=== PATIENT | male | born 1965 | race Caucasian/White ===

== ENCOUNTER 2016-06-10 10:37 | Emergency (ER) | payer MEDICAID ==
[2016-06-10] MEDS ORDERED: DEXAMETHASONE 10 MG/ML VIAL PO STA (12:11)
[2016-06-10] MEDS ORDERED: AMOXICILLIN 250 MG CAPSULE PO STA (12:12)
[2016-06-10] MEDS ORDERED: HYDROcod/ACETAM 5/325 MG TABLET PO STA (12:12)
[2016-06-10] MEDS ORDERED: DEXAMETHASONE 10 MG/ML VIAL ONE (12:15)
[2016-06-10] MEDS ORDERED: HYDROcod/ACETAM 5/325 MG TABLET ONE (12:15)
[2016-06-10] MEDS ORDERED: AMOXICILLIN 250 MG CAPSULE PO ONE (12:15)
[2016-06-10] MEDS ORDERED: CHERRY SYRUP 10 ML UDC PO ONE (12:15)
== END 2016-06-10 13:17 | disposition home or self-care (01) ==
DX: H66.011 Acute suppurative otitis media with spontaneous rupture of ear drum, right ear (principal); S00.411A Abrasion of right ear, initial encounter; X58.XXXA Exposure to other specified factors, initial encounter; I10 Essential (primary) hypertension; E10.9 Type 1 diabetes mellitus without complications; Z79.4 Long term (current) use of insulin; F03.90 Unspecified dementia, unspecified severity, without behavioral disturbance, psychotic disturbance, mood disturbance, and anxiety; Z86.73 Personal history of transient ischemic attack (TIA), and cerebral infarction without residual deficits; Z79.82 Long term (current) use of aspirin; Z87.891 Personal history of nicotine dependence
CPT/HCPCS: 99283; 99284; A9270

== ENCOUNTER 2016-09-05 19:43 | Outpatient (CLI) | payer MEDICAID | END 2016-09-05 19:44 | disposition critical access hospital (66) | LOC: EMS 19:43 | PROVIDERS: ATTEND Surgery | DX: T38.3X1A Poisoning by insulin and oral hypoglycemic [antidiabetic] drugs, accidental (unintentional), initial encounter (principal); R10.9 Unspecified abdominal pain; Y92.039 Unspecified place in apartment as the place of occurrence of the external cause | CPT/HCPCS: A0425; A0429 ==

== ENCOUNTER 2016-09-05 20:03 | Emergency (ER) | payer MEDICAID ==
--- NOTE | 2016-09-05 20:21 | ED Physician Documentation ---
History of Present Illness - Stated complaint Stated Complaint: DIABETIC PROBLEM - Chief complaint Chief Complaint: General - History obtained from History obtained from: Patient, EMS - History of Present Illness Timing: How many hours ago (2) Pain level max: 0 Pain level now: 0 - Additonal information Additional information: Patient is a 50-year-old diabetic male who presents to the emergency department stating that he accidentally took 40 units of Humalog tonight, approximately 2 hours prior to arrival. He had sour patch kids and regular Coca-Cola after that. Review of Systems Ten Systems: 10 systems reviewed and negative Constitutional: denies: Fever, Chills Nose: denies: Rhinorrhea / runny nose, Congestion Throat: denies: Sore throat Cardiac: denies: Chest pain / pressure Respiratory: denies: Cough GI: denies: Abdominal Pain, Nausea, Vomiting, Diarrhea Skin: denies: Rash Musculoskeletal: denies: Neck pain, Back pain Neurologic: denies: Focal weakness, Numbness, Headache PD PAST MEDICAL HISTORY - Past Medical History Cardiovascular: Hypertension, High cholesterol, Other Respiratory: Pneumonia Neuro: Dementia, CVA Endocrine/Autoimmune: Type 1 diabetes GI: GERD, Ulcers, Colon polyps : None HEENT: None Psych: None Musculoskeletal: Chronic back pain Derm: None - Past Surgical History Past Surgical History: Yes General: Colonoscopy Ortho: Carpal Tunnel surgery HEENT: Other - Present Medications Home Medications: Ambulatory Orders Medication Instructions Recorded Confirmed Levothyroxine [Synthroid] 125 mcg PO DAILY 09/02/13 01/29/16 Pantoprazole [Protonix] 40 mg PO QPM 03/20/14 01/29/16 Atorvastatin Calcium [Lipitor] 40 mg PO QPM 05/03/14 01/29/16 Cholecalciferol (Vitamin D3) 5,000 mg PO DAILY 05/03/14 01/29/16 [Vitamin D3] Mirtazapine [Remeron] 45 mg PO QPM 05/03/14 01/29/16 Hydroxyzine Pamoate 50 mg PO TID 07/21/14 01/29/16 Trazodone HCl 200 tab PO QPM 07/21/14 01/29/16 Ferrous Sulfate [Iron Supplement] 325 mg PO DAILY 12/13/14 01/29/16 Atomoxetine HCl [Strattera] 30 mg PO DAILY 05/16/15 01/29/16 Donepezil [Aricept] 5 mg PO DAILY 08/08/15 01/29/16 Ascorbic Acid [Vitamin C] 500 mg PO DAILY 11/09/15 01/29/16 Aspirin [Adult Low Dose Aspirin EC] 81 mg PO DAILY 11/09/15 01/29/16 Gabapentin 300 mg PO TID 11/09/15 01/29/16 [place]-3 Fatty Acids [Fish Oil] 1,400 mg PO DAILY 11/09/15 01/29/16 Sertraline HCl 25 mg PO DAILY 11/09/15 01/29/16 Ubidecarenone [Co Q-10] 200 mg PO DAILY 11/09/15 01/29/16 Insulin Glargine [Lantus Solostar] 20 unit SUBQ QPM pen 11/10/15 01/29/16 Insulin Lispro [Humalog] 20 units SQ TID 01/29/16 01/29/16 Amoxicillin 500 mg PO TID #20 capsule 06/10/16 Hydrocodone/Acetaminophen [[place] 1 each PO Q6H PRN #15 tablet 06/10/16 5-325 Tablet] Neomycin/Polymyx/Hc Otic Drops 3 drops OT QID #1 bottle 06/10/16 [Cortisporin Ear Susp] - Allergies Allergies/Adverse Reactions: Allergies Allergy/AdvReac Type Severity Reaction Status Date / Time omeprazole Allergy Intermediate Nausea Verified 01/29/16 20:33 codeine AdvReac Severe Dizziness Verified 01/29/16 20:33 doxycycline AdvReac Intermediate Dizziness Verified 01/29/16 20:33 insulin aspart [From Novolog] AdvReac Edema Verified 01/29/16 20:33 - Social History Does the pt smoke?: No Smoking Status: Former smoker Does the pt drink ETOH?: No Does the pt have substance abuse?: No - Immunizations Immunizations are current?: Yes - POLST Patient has POLST: No PD ED PE NORMAL - Vitals Vital signs reviewed: Yes - General General: Alert and oriented X 3, No acute distress - HEENT HEENT: Moist mucous membranes - Neck Neck: Supple, no meningeal sign - Cardiac Cardiac: RRR - Respiratory Respiratory: No respiratory distress, Clear bilaterally - Abdomen Abdomen: Soft, Non tender - Derm Derm: Warm and dry, No rash - Neuro Neuro: Alert and oriented X 3 - Psych Psych: Normal mood, Normal affect Results - Vitals Vitals: Vital Signs - 24 hr 09/05/16 09/05/16 20:03 20:12 Temperature 36.6 C Heart Rate 87 Respiratory 18 Rate Blood Pressure 127/76 128/76 O2 Saturation 97 Oxygen O2 Source [Without Activity] Room air O2 Source Patient supplied BIPAP - Labs Labs: Laboratory Tests 09/05/16 09/05/16 20:38 20:38 WBC 6.6 RBC 5.00 Hgb 15.1 Hct 44.3 MCV 88.7 MCH 30.2 MCHC 34.1 RDW 12.7 Plt Count 216 MPV 10.1 Neut # 4.3 Lymph # 1.7 [place] # 0.5 Eos # 0.1 Baso # 0.1 Absolute Nucleated RBC 0.01 Nucleated RBCs 0.1 Sodium 137 Potassium 3.5 Chloride 99 L Carbon Dioxide 24 Anion Gap 14.0 H BUN 20 Creatinine 1.2 Estimated GFR (MDRD) 64 L Glucose 238 H Calcium 9.6 Total Bilirubin 0.6 AST 27 ALT 23 Alkaline Phosphatase 81 Total Protein 6.9 Albumin 4.3 Globulin 2.6 Albumin/Globulin Ratio 1.7 Lipase 32 PD MEDICAL DECISION MAKING - ED course Complexity details: reviewed results, re-evaluated patient, considered differential, d/w patient ED course: Patient is a 50-year-old male who presents to the emergency department after an accidental overdose of short acting insulin at home. He was monitored in the emergency department for several hours without hypoglycemia. Tolerating p.o. without difficulty. No other acute laboratory abnormalities. He is not suicidal or homicidal. Will have him follow-up with his doctor for further evaluation and care. We will have him hold his Lantus dose tonight. Patient counseled regarding signs and symptoms for which I believe and urgent re- evaluation would be necessary. Patient with good understanding of and agreement to plan and is comfortable going home at this time This document was made in part using voice recognition software. While efforts are made to proofread this document, sound alike and grammatical errors may occur. Departure - Departure Disposition: 01 Home, Self Care Clinical Impression: Insulin overdose Qualifiers: Encounter type: initial encounter Injury intent: accidental or unintentional Qualified Code(s): T38.3X1A - Poisoning by insulin and oral hypoglycemic [ antidiabetic] drugs, accidental (unintentional), initial encounter Condition: Good Instructions: ED Diabetes General Info Follow-Up: Fransisco Timmons MD [Primary Care Provider] - Within 3 Days Comments: Please be very careful when checking your insulin at home and ensure you are injecting the correct medication. Return if you worsen
[2016-09-05 20:51] LABS: HGB - HEMOGLOBIN 15.1 g/dL (14.0-18.0); NUCLEATED RED BLOOD CELLS AUTO 0.1 /100WBC
[2016-09-05 20:55] LABS: BASOPHILS # (AUTO) 0.1 10^3/uL (0.0-0.1); BASOPHILS % (AUTO) 1.1 %; EOSINOPHILS # (AUTO) 0.1 10^3/uL (0.0-0.7); EOSINOPHILS % (AUTO) 0.9 %; HCT - HEMATOCRIT 44.3 % (42.0-52.0); LYMPHOCYTES # (AUTO) 1.7 10^3/uL (1.5-3.5); MEAN CORPUSCULAR HEMOGLOBIN 30.2 pg (27.0-31.0); MEAN CORPUSCULAR HGB CONC 34.1 g/dL (32.0-36.0); MEAN CORPUSCULAR VOLUME 88.7 fL (80.0-94.0); MEAN PLATELET VOLUME 10.1 fL (7.4-11.4); MONOCYTES # (AUTO) 0.5 10^3/uL (0.0-1.0); MONOCYTES % (AUTO) 7.2 %; NEUTROPHILS # (AUTO) 4.3 10^3/uL (1.5-6.6); NEUTROPHILS % (AUTO) 65.8 %; RED CELL DISTRIBUTION WIDTH 12.7 % (12.0-15.0); UNCORRECTED WHITE BLOOD COUNT 6.6 x10^3/uL; WHITE BLOOD COUNT 6.6 x10^3/uL (4.8-10.8)
[2016-09-05 20:58] LABS: ALBUMIN/GLOBULIN RATIO 1.7 (1.0-2.2); BILIRUBIN,TOTAL 0.6 mg/dL (0.2-1.0); CALCIUM 9.6 mg/dL (8.5-10.3); CREATININE 1.2 mg/dL (0.6-1.2); POTASSIUM 3.5 mmol/L (3.5-5.0); TOTAL PROTEIN 6.9 g/dL (6.7-8.2)
[2016-09-05 22:23] VITALS: BP 142/82
== END 2016-09-05 22:31 | disposition home or self-care (01) ==
LOC: EDUNIT# → ED 20:03
DX: T38.3X1A Poisoning by insulin and oral hypoglycemic [antidiabetic] drugs, accidental (unintentional), initial encounter (principal); Y92.019 Unspecified place in single-family (private) house as the place of occurrence of the external cause; E10.9 Type 1 diabetes mellitus without complications; Z79.4 Long term (current) use of insulin; I10 Essential (primary) hypertension; E78.00 Pure hypercholesterolemia, unspecified; F03.90 Unspecified dementia, unspecified severity, without behavioral disturbance, psychotic disturbance, mood disturbance, and anxiety; Z86.73 Personal history of transient ischemic attack (TIA), and cerebral infarction without residual deficits; Z86.010 Personal history of colon polyps; Z87.11 Personal history of peptic ulcer disease; K21.9 Gastro-esophageal reflux disease without esophagitis; Z87.891 Personal history of nicotine dependence
CPT/HCPCS: 36415; 80053; 83690; 85025; 99283; 99284

== ENCOUNTER 2017-03-05 13:13 | Outpatient (CLI) | payer MEDICARE ==
--- NOTE | 2017-03-05 15:54 | XRAY Report ---
EXAM; THREE VIEW LUMBAR SPINE: 03/05/2017 CLINICAL INDICATION: Back pain. FINDINGS: AP, lateral, coned down views of the lumbar spine were obtained. There are chronic appearing anterior wedge compression fractures of L1, with approximately 80% height loss, L2, with approximately 10% height loss, and L5, with approximately 30% height loss. Degenerative disk and facet disease is present. The bowel gas pattern appears unremarkable. IMPRESSION: CHRONIC APPEARING ANTERIOR WEDGE COMPRESSION DEFORMITIES OF L1, L2, AND L5. DEGENERATIVE DISK AND FACET DISEASE. MD NATHAN De La Torre/ADRIENNE TD: 03/05/2017 15:53 MTDD
== END 2017-03-05 13:14 | disposition home or self-care (01) ==
LOC: DI 13:13
PROVIDERS: ATTEND Family Medicine
DX: M48.56XD Collapsed vertebra, not elsewhere classified, lumbar region, subsequent encounter for fracture with routine healing (principal); M51.36 Other intervertebral disc degeneration, lumbar region; M47.896 Other spondylosis, lumbar region
CPT/HCPCS: 72100

== ENCOUNTER 2017-03-10 18:47 | Emergency (ER) | payer MEDICARE ==
--- NOTE | 2017-03-10 19:02 | ED Physician Documentation ---
History of Present Illness - Stated complaint Stated Complaint: CHEST PX - Chief complaint Chief Complaint: Cardiac - History obtained from History obtained from: Patient, Family - History of Present Illness Timing: Today Pain level max: 0 Pain level now: 0 Improved by: rest Worsened by: walking - Additonal information Additional information: Patient is a 51-year-old male who presents to the emergency department stating that he has been able to feel his heart beating all day today. Has not been having any chest pain. He was seen at [facility] 3 days ago and treated with ciprofloxacin for epididymitis and prostatitis. He states he was also started on Flomax for an enlarged prostate. He has felt sweaty and weak today. No fevers that he knows of at home. Review of Systems Ten Systems: 10 systems reviewed and negative Constitutional: denies: Fever, Chills Nose: denies: Rhinorrhea / runny nose, Congestion GI: denies: Constipation, Diarrhea, Hematemesis, Bloody / black stool : denies: Dysuria, Frequency, Hesitancy Skin: denies: Rash Musculoskeletal: denies: Neck pain, Back pain Neurologic: denies: Headache PD PAST MEDICAL HISTORY - Past Medical History Cardiovascular: Hypertension, High cholesterol, Other Respiratory: Pneumonia Neuro: Dementia, CVA Endocrine/Autoimmune: Type 1 diabetes GI: GERD, Ulcers, Colon polyps : None HEENT: None Psych: None Musculoskeletal: Chronic back pain Derm: None - Past Surgical History Past Surgical History: Yes General: Colonoscopy Ortho: Carpal Tunnel surgery HEENT: Other - Present Medications Home Medications: Ambulatory Orders Medication Instructions Recorded Confirmed Levothyroxine [Synthroid] 125 mcg PO DAILY 09/02/13 01/29/16 Pantoprazole [Protonix] 40 mg PO QPM 03/20/14 01/29/16 Atorvastatin Calcium [Lipitor] 40 mg PO QPM 05/03/14 01/29/16 Cholecalciferol (Vitamin D3) 5,000 mg PO DAILY 05/03/14 01/29/16 [Vitamin D3] Mirtazapine [Remeron] 45 mg PO QPM 05/03/14 01/29/16 Hydroxyzine Pamoate 50 mg PO TID 07/21/14 01/29/16 Trazodone HCl 200 tab PO QPM 07/21/14 01/29/16 Atomoxetine HCl [Strattera] 30 mg PO DAILY 05/16/15 01/29/16 Donepezil [Aricept] 5 mg PO DAILY 08/08/15 01/29/16 Ascorbic Acid [Vitamin C] 500 mg PO DAILY 11/09/15 01/29/16 [place]-3 Fatty Acids [Fish Oil] 1,400 mg PO DAILY 11/09/15 01/29/16 Sertraline HCl 25 mg PO DAILY 11/09/15 01/29/16 Ubidecarenone [Co Q-10] 200 mg PO DAILY 11/09/15 01/29/16 Insulin Glargine [Lantus Solostar] 20 unit SUBQ QPM pen 11/10/15 01/29/16 Insulin Lispro [Humalog] 20 units SQ TID 01/29/16 01/29/16 Amoxicillin 500 mg PO TID #20 capsule 06/10/16 - Allergies Allergies/Adverse Reactions: Allergies Allergy/AdvReac Type Severity Reaction Status Date / Time omeprazole Allergy Intermediate Nausea Verified 03/10/17 18:54 codeine AdvReac Severe Dizziness Verified 03/10/17 18:54 doxycycline AdvReac Intermediate Dizziness Verified 03/10/17 18:54 insulin aspart [From Novolog] AdvReac Edema Verified 03/10/17 18:54 - Social History Does the pt smoke?: No Smoking Status: Former smoker Does the pt drink ETOH?: No Does the pt have substance abuse?: No - Immunizations Immunizations are current?: Yes - POLST Patient has POLST: No PD ED PE NORMAL - Vitals Vital signs reviewed: Yes - General General: Alert and oriented X 3, No acute distress - HEENT HEENT: Moist mucous membranes - Neck Neck: Supple, no meningeal sign - Cardiac Cardiac: RRR, Strong equal pulses - Respiratory Respiratory: No respiratory distress, Clear bilaterally - Abdomen Abdomen: Soft, Non distended, Other (TTP RLQ at McBurney's point. no rebound or guarding) - Derm Derm: Warm and dry - Neuro Neuro: Alert and oriented X 3 - Psych Psych: Other (anxious) Results - Vitals Vitals: Vital Signs - 24 hr 03/10/17 03/10/17 03/10/17 18:50 19:34 20:45 Temperature 36.7 C Heart Rate 106 H 82 86 Respiratory 16 17 13 Rate Blood Pressure 136/89 H 109/62 132/78 H O2 Saturation 99 100 99 03/10/17 21:34 Temperature Heart Rate 83 Respiratory 16 Rate Blood Pressure 119/79 O2 Saturation 99 Oxygen O2 Source [] Room air O2 Source Room air - EKG (time done) 1851 Rate: Rate (enter#) (107) Rhythm: Sinus tachycardia [place]: Normal Intervals: Normal [place] QRS: Normal Ischemia: Normal ST segments Computer interpretation: Agree with computer - Labs Labs: Laboratory Tests 03/10/17 03/10/17 03/10/17 18:55 18:55 18:55 WBC 8.1 RBC 5.28 Hgb 15.6 Hct 46.6 MCV 88.3 MCH 29.6 MCHC 33.5 RDW 13.2 Plt Count 270 MPV 9.3 Neut # 6.0 Lymph # 1.4 L [place] # 0.6 Eos # 0.0 Baso # 0.1 Absolute Nucleated RBC 0.00 Nucleated RBC % 0.0 Sodium 138 Potassium 4.0 Chloride 99 L Carbon Dioxide 30 Anion Gap 9.0 BUN 22 H Creatinine 1.7 H Estimated GFR (MDRD) 42 L Glucose 74 Lactic Acid Calcium 9.5 Total Bilirubin 0.7 AST 24 ALT 22 Alkaline Phosphatase 73 Troponin I < 0.04 Total Protein 7.4 Albumin 4.5 Globulin 2.9 Albumin/Globulin Ratio 1.6 Lipase 53 H 03/10/17 18:55 WBC RBC Hgb Hct MCV MCH MCHC RDW Plt Count MPV Neut # Lymph # [place] # Eos # Baso # Absolute Nucleated RBC Nucleated RBC % Sodium Potassium Chloride Carbon Dioxide Anion Gap BUN Creatinine Estimated GFR (MDRD) Glucose Lactic Acid 2.1 Calcium Total Bilirubin AST ALT Alkaline Phosphatase Troponin I Total Protein Albumin Globulin Albumin/Globulin Ratio Lipase - Rads (name of study) CT abd/pelvis Radiology: Prelim report reviewed, EMP read contemporaneously, See rad report ( Within the limits of noncontrast examination, no acute process identified to explain right lower quadrant abdominal pain. Specifically, normal appearance of the appendix. ) cxr Radiology: Prelim report reviewed, EMP read contemporaneously, See rad report ( Normal single view chest. ) PD MEDICAL DECISION MAKING - ED course Complexity details: reviewed results, re-evaluated patient, considered differential, d/w patient, d/w family ED course: Patient is a 51-year-old gentleman who presents to the emergency department with palpitations as well as right lower quadrant abdominal pain. CT is negative. White count is normal. No appendicitis. Troponin is negative. No evidence of acute coronary syndrome, pulmonary embolus or pneumothorax. Feels better after IV fluids. Tolerating p.o. without difficulty here. He did have some hypoglycemia here that resolved with oral feeding. He is ambulating with a steady gait. Feels normal after IV fluids and the small dose of Ativan. Does have a history of anxiety. Possible this is a medication side effect from the ciprofloxacin. Would recommend if his gonorrhea and Chlamydia tests are negative but they look into alternative treatments for his prostatitis that he was diagnosed with. Reviewed the visit at [facility], the gonorrhea and Chlamydia tests are still pending at this time. Therefore I will not switch his antibiotics yet. Recommend he call them tomorrow and then talk to his doctor about changing antibiotics. Patient and family counseled regarding signs and symptoms for which I believe and urgent re-evaluation would be necessary. Patient with good understanding of and agreement to plan and is comfortable going home at this time This document was made in part using voice recognition software. While efforts are made to proofread this document, sound alike and grammatical errors may occur. Departure - Departure Disposition: 01 Home, Self Care Clinical Impression: Palpitations Condition: Good Instructions: ED Palpitations Follow-Up: Dalton Finn MD [Primary Care Provider] - Within 1 week Comments: This may be a side effect of the ciprofloxacin today. Continue it for now, but if your tests for gonorrhea/chlamydia come back negative, your doctor may be able to change you to another antibiotic. Return if you worsen. Discharge Date/Time: 03/10/17 22:03
[2017-03-10] MEDS ORDERED: SODIUM CHLORIDE 0.9% 1,000 ML IV ONE ×2 (19:09)
[2017-03-10 19:14] LABS: BASOPHILS # (AUTO) 0.1 10^3/uL (0.0-0.1); BASOPHILS % (AUTO) 1.1 %; EOSINOPHILS % (AUTO) 0.3 %; HCT - HEMATOCRIT 46.6 % (42.0-52.0); HGB - HEMOGLOBIN 15.6 g/dL (14.0-18.0); LYMPHOCYTES # (AUTO) 1.4 10^3/uL (1.5-3.5); LYMPHOCYTES % (AUTO) 17.7 %; MEAN CORPUSCULAR HEMOGLOBIN 29.6 pg (27.0-31.0); MEAN CORPUSCULAR HGB CONC 33.5 g/dL (32.0-36.0); MEAN CORPUSCULAR VOLUME 88.3 fL (80.0-94.0); MEAN PLATELET VOLUME 9.3 fL (7.4-11.4); MONOCYTES # (AUTO) 0.6 10^3/uL (0.0-1.0); MONOCYTES % (AUTO) 7.4 %; NEUTROPHILS % (AUTO) 73.5 %; RED BLOOD COUNT 5.28 10^6/uL (4.70-6.10); RED CELL DISTRIBUTION WIDTH 13.2 % (12.0-15.0); UNCORRECTED WHITE BLOOD COUNT 8.1 x10^3/uL; WHITE BLOOD COUNT 8.1 x10^3/uL (4.8-10.8)
[2017-03-10 19:26] LABS: ALBUMIN/GLOBULIN RATIO 1.6 (1.0-2.2); BILIRUBIN,TOTAL 0.7 mg/dL (0.2-1.0); CALCIUM 9.5 mg/dL (8.5-10.3); CREATININE 1.7 mg/dL (0.6-1.2); TOTAL PROTEIN 7.4 g/dL (6.7-8.2)
--- NOTE | 2017-03-10 20:24 | XRAY Preliminary Report ---
Exam: XR CHEST 1 VIEW IMPRESSION: Normal single view chest. [facility] SITE ID: [id number]
--- NOTE | 2017-03-10 20:26 | XRAY Report ---
EXAM: CHEST RADIOGRAPHY EXAM DATE: 03/10/2017 07:49 PM. CLINICAL HISTORY: Palpitations. COMPARISON: 11/09/2015. TECHNIQUE: 1 view. FINDINGS: Lungs/Pleura: No focal consolidation or evidence of edema. No pleural effusion or pneumothorax. Mediastinum: Normal cardiomediastinal contour. Other: The bones are unremarkable. IMPRESSION: Normal single view chest. [facility] Referring Provider Line: [phone] SITE ID: [id number]
--- NOTE | 2017-03-10 20:31 | CT Preliminary Report ---
Exam: CT ABDOMEN/PELVIS W/O IMPRESSION: Within the limits of noncontrast examination, no acute process identified to explain righ t lower quadrant abdominal pain. Specifically, normal appearance of the appendix. [facility] SITE ID: [id number]
--- NOTE | 2017-03-10 20:34 | CT Report ---
EXAM: CT ABDOMEN AND PELVIS EXAM DATE: 03/10/2017 08:00 PM. CLINICAL HISTORY: Right lower quadrant abdominal pain. COMPARISONS: 11/11/2013. TECHNIQUE: Routine helical CT imaging was performed through the abdomen and pelvis. IV contrast: None . Enteric contrast: None. Reconstructions: Coronal and sagittal. In accordance with CT protocol optimization, one or more of the following dose reduction techniques w ere utilized for this exam: automated exposure control, adjustment of mA and/or KV based on patient s ize, or use of iterative reconstructive technique. FINDINGS: Lung Bases: Clear. Liver: Unremarkable noncontrast appearance. Gallbladder/Bile Ducts: Unremarkable. No visualized stones or biliary duct dilatation. Spleen: Normal size. No contour deforming mass. Pancreas: No contour deforming mass or ductal dilatation. Adrenal Glands: Normal. Kidneys and Ureters: No contour deforming mass, stones, hydronephrosis, or hydroureter Peritoneal Cavity/Bowel: The bowel is grossly unremarkable, without evident focal wall thickening or adjacent mesenteric fat stranding to suggest acute inflammatory process, or evidence of bowel obstruc tion. The appendix is normal. No free fluid, pneumoperitoneum, or eduardo adenopathy. Pelvic Organs: Normal. The bladder and visualized pelvic organs are within normal limits. Vasculature: Unremarkable. Bones: There are 6 [id number] lumbar vertebral bodies, described as L1 through L6. Interval guest request runner phill compression deformities of the L2 and L6 vertebral bodies. No acute bony abnormality. Other: None. IMPRESSION: Within the limits of noncontrast examination, no acute process identified to explain righ t lower quadrant abdominal pain. Specifically, normal appearance of the appendix. [facility] Referring Provider Line: [phone] SITE ID: [id number]
[2017-03-10] MEDS ORDERED: LORazepam 2 MG/ML VIAL IVP STA (20:51)
[2017-03-10 21:34] VITALS: BP 119/79
== END 2017-03-10 22:03 | disposition home or self-care (01) ==
LOC: ED 18:47
DX: R00.2 Palpitations (principal); I10 Essential (primary) hypertension; E78.00 Pure hypercholesterolemia, unspecified; F03.90 Unspecified dementia, unspecified severity, without behavioral disturbance, psychotic disturbance, mood disturbance, and anxiety; E10.9 Type 1 diabetes mellitus without complications; Z79.4 Long term (current) use of insulin; K21.9 Gastro-esophageal reflux disease without esophagitis; Z87.11 Personal history of peptic ulcer disease; Z86.010 Personal history of colon polyps; Z87.891 Personal history of nicotine dependence
CPT/HCPCS: 36415; 71010; 74176; 80053; 83605; 83690; 84484; 85025; 93005; 96361; 96374; 99284; J2060

== ENCOUNTER 2017-06-05 22:53 | Emergency (ER) | payer MEDICARE ==
[2017-06-05] MEDS ORDERED: SODIUM CHLORIDE 0.9% 1,000 ML IV ONE (23:13)
[2017-06-05 23:23] LABS: BASOPHILS # (AUTO) 0.1 10^3/uL (0.0-0.1); BASOPHILS % (AUTO) 1.1 %; EOSINOPHILS % (AUTO) 0.3 %; HGB - HEMOGLOBIN 12.8 g/dL (14.0-18.0); LYMPHOCYTES # (AUTO) 1.1 10^3/uL (1.5-3.5); MEAN CORPUSCULAR HEMOGLOBIN 29.9 pg (27.0-31.0); MEAN CORPUSCULAR VOLUME 90.5 fL (80.0-94.0); MEAN PLATELET VOLUME 9.9 fL (7.4-11.4); MONOCYTES # (AUTO) 0.5 10^3/uL (0.0-1.0); MONOCYTES % (AUTO) 7.3 %; NEUTROPHILS # (AUTO) 5.5 10^3/uL (1.5-6.6); NEUTROPHILS % (AUTO) 76.3 %; PLT - PLATELET COUNT 243 10^3/uL (130-450); RED BLOOD COUNT 4.28 10^6/uL (4.70-6.10); RED CELL DISTRIBUTION WIDTH 13.7 % (12.0-15.0); WHITE BLOOD COUNT 7.2 x10^3/uL (4.8-10.8)
[2017-06-05 23:24] LABS: KETONES, SERUM (ACETEST) NEGATIVE (NEGATIVE)
[2017-06-05 23:50] LABS: ALBUMIN 3.6 g/dL (3.2-5.5); ALBUMIN/GLOBULIN RATIO 1.4 (1.0-2.2); ALKALINE PHOSPHATASE 211 IU/L (42-121); AST ASPARTATE AMINOTRANSFERASE 147 IU/L (10-42); BILIRUBIN,TOTAL 1.3 mg/dL (0.2-1.0); BUN - BLOOD UREA NITROGEN 31 mg/dL (6-20); CARBON DIOXIDE - CO2 17 mmol/L (21-32); CHLORIDE 96 mmol/L (101-111); CREATININE 1.5 mg/dL (0.6-1.2); GFR - MDRD 49 (>89); LIPASE 22 U/L (22-51); MAGNESIUM 2.1 mg/dL (1.7-2.8); PHOSPHORUS 2.5 mg/dL (2.5-4.6); SODIUM 130 mmol/L (135-145); TOTAL PROTEIN 6.2 g/dL (6.7-8.2)
[2017-06-05 23:51] LABS: GLUCOSE 508 mg/dL (70-100)
[2017-06-05 23:57] LABS: VBG PCO2 28.2 mmHg (41-51); VBG PH 7.406 (7.31-7.41); VBG PO2 107.4 mmHg (25-47); VBG TOTAL CO2 18.2 mmol/L (24-29)
[2017-06-05] MEDS ORDERED: INSULIN REGULAR HUMAN 100 UNIT/1 ML 10 ML MDV IVP STA (23:59)
[2017-06-06 00:07] LABS: ALT ALANINE AMINOTRANSFERASE < 10 IU/L (10-60)
[2017-06-06] MEDS ORDERED: SODIUM CHLORIDE 0.9% 1,000 ML IV ONE ×2 (00:32→02:14)
--- NOTE | 2017-06-06 00:46 | CT Preliminary Report ---
Exam: CT ABDOMEN/PELVIS W/O IMPRESSION: 1. No acute inflammatory or obstructive process seen in the abdomen or pelvis. 2. Moderate stool in the colon. 3. Small umbilical hernia containing fat. [facility] SITE ID: [id number]
--- NOTE | 2017-06-06 00:46 | CT Report ---
EXAM: CT ABDOMEN AND PELVIS EXAM DATE: 06/06/2017 12:34 AM. CLINICAL HISTORY: Abdominal pain. Renal insufficiency. COMPARISONS: 03/10/2017. TECHNIQUE: Routine helical CT imaging was performed through the abdomen and pelvis. IV contrast: None . Enteric contrast: No. Reconstructions: Coronal and sagittal. In accordance with CT protocol optimization, one or more of the following dose reduction techniques w ere utilized for this exam: automated exposure control, adjustment of mA and/or KV based on patient s ize, or use of iterative reconstructive technique. FINDINGS: Lung Bases: Unremarkable. Liver: No focal lesion identified on this noncontrast examination. Gallbladder/Bile Ducts: Unremarkable. Spleen: Normal. Pancreas: Normal. Adrenal Glands: Normal. Kidneys: Normal. No masses or hydronephrosis. Peritoneal Cavity/Bowel: Moderate stool in the colon. There may be some colonic diverticula but no di verticulitis is seen. No bowel obstruction. No free air or free fluid. No lymphadenopathy. Small umbi lical hernia containing fat. Appendix appears normal. Pelvic Organs: Normal. The bladder and visualized pelvic organs are within normal limits. Vasculature: Mild atherosclerosis. No aortic aneurysm. Bones: Vertebral body fractures are similar compared with the prior exam. Other: None. IMPRESSION: 1. No acute inflammatory or obstructive process seen in the abdomen or pelvis. 2. Moderate stool in the colon. 3. Small umbilical hernia containing fat. [facility] Referring Provider Line: [phone] SITE ID: [id number]
--- NOTE | 2017-06-06 01:45 | ED Physician Documentation ---
PD HPI ABD PAIN - Stated complaint Stated Complaint: ABD PX,FEVER - Chief complaint Chief Complaint: Abd Pain - History obtained from History obtained from: Patient, Friend - History of Present Illness Timing - onset: How many days ago (2) Timing - details: Gradual onset, Still present Quality: Cramping, Aching Location: Epigastric Worsened by: Eating, Moving Associated symptoms: Nausea. No: Fever, Vomiting, Hematemesis, Diarrhea, Constipation Similar symptoms before: Work up / diagnostics, Treatment Recently seen: Not recently seen - Additional information Additional information: Patient is a 51 year old male with a history of type one diabetes presenting to the emergency department for epigastric pain. Patient states that medicaid has no longer been paying for his long acting. Patient has been having to get up every 6 hours and give himself insulin shots. Patient states that his blood sugars have been close to 500 every day. Patient states that he has some nausea but no real vomiting or diarrhea. patient states that he thinks he had a fever but he has not taken his temperature. Review of Systems Constitutional: reports: Fever. denies: Myalgias Eyes: denies: Decreased vision Ears: denies: Ear pain, Drainage/discharge Nose: denies: Congestion Cardiac: denies: Chest pain / pressure, Palpitations Respiratory: denies: Dyspnea, Cough GI: reports: Abdominal Pain, Nausea. denies: Vomiting, Constipation, Diarrhea, Hematemesis : reports: Frequency Musculoskeletal: denies: Neck pain, Back pain Neurologic: denies: Generalized weakness, Focal weakness Endocrine: reports: Polyuria PD PAST MEDICAL HISTORY - Past Medical History Cardiovascular: Hypertension, High cholesterol, Other Respiratory: Pneumonia Neuro: Dementia, CVA Endocrine/Autoimmune: Type 1 diabetes GI: GERD, Ulcers, Colon polyps : None HEENT: None Psych: None Musculoskeletal: Chronic back pain Derm: None - Past Surgical History Past Surgical History: Yes General: Colonoscopy Ortho: Carpal Tunnel surgery HEENT: Other - Present Medications Home Medications: Ambulatory Orders Medication Instructions Recorded Confirmed Levothyroxine [Synthroid] 125 mcg PO DAILY 09/02/13 01/29/16 Pantoprazole [Protonix] 40 mg PO QPM 03/20/14 01/29/16 Atorvastatin Calcium [Lipitor] 40 mg PO QPM 05/03/14 01/29/16 Cholecalciferol (Vitamin D3) 5,000 mg PO DAILY 05/03/14 01/29/16 [Vitamin D3] Mirtazapine [Remeron] 45 mg PO QPM 05/03/14 01/29/16 Hydroxyzine Pamoate 50 mg PO TID 07/21/14 01/29/16 Trazodone HCl 200 tab PO QPM 07/21/14 01/29/16 Atomoxetine HCl [Strattera] 30 mg PO DAILY 05/16/15 01/29/16 Donepezil [Aricept] 5 mg PO DAILY 08/08/15 01/29/16 Ascorbic Acid [Vitamin C] 500 mg PO DAILY 11/09/15 01/29/16 [place]-3 Fatty Acids [Fish Oil] 1,400 mg PO DAILY 11/09/15 01/29/16 Sertraline HCl 25 mg PO DAILY 11/09/15 01/29/16 Ubidecarenone [Co Q-10] 200 mg PO DAILY 11/09/15 01/29/16 Insulin Glargine [Lantus Solostar] 20 unit SUBQ QPM pen 11/10/15 01/29/16 Insulin Lispro [Humalog] 20 units SQ TID 01/29/16 01/29/16 Amoxicillin 500 mg PO TID #20 capsule 06/10/16 - Allergies Allergies/Adverse Reactions: Allergies Allergy/AdvReac Type Severity Reaction Status Date / Time omeprazole Allergy Intermediate Nausea Verified 03/10/17 18:54 codeine AdvReac Severe Dizziness Verified 03/10/17 18:54 doxycycline AdvReac Intermediate Dizziness Verified 03/10/17 18:54 insulin aspart [From Novolog] AdvReac Edema Verified 03/10/17 18:54 - Social History Does the pt smoke?: No Smoking Status: Never smoker Does the pt drink ETOH?: No Does the pt have substance abuse?: No - Immunizations Immunizations are current?: Yes - POLST Patient has POLST: No PD ED PE NORMAL - Vitals Vital signs reviewed: Yes - General General: Alert and oriented X 3 - HEENT HEENT: Atraumatic, PERRL - Neck Neck: Supple, no meningeal sign - Cardiac Cardiac: RRR, No murmur - Respiratory Respiratory: No respiratory distress - Derm Derm: Normal color, Warm and dry - Extremities Extremities: No deformity, No edema - Neuro Neuro: Alert and oriented X 3, No motor deficit, No sensory deficit, Normal speech Eye Opening: Spontaneous Motor: Obeys Commands Verbal: Oriented GCS Score: 15 - Psych Psych: Normal mood PD ED PE EXPANDED - HEENT HEENT: Dry mucous membranes - Abdomen Abdomen: Tender to palpation, Epigastric, LUQ. No: Rebound, Guarding Results - Vitals Vitals: Vital Signs - 24 hr 06/05/17 06/06/17 06/06/17 22:57 00:13 02:34 Temperature 36.2 C L Heart Rate 88 84 76 Respiratory 18 19 15 Rate Blood Pressure 152/80 H 124/71 126/86 H O2 Saturation 98 96 96 06/06/17 03:55 Temperature Heart Rate 67 Respiratory 16 Rate Blood Pressure 147/92 H O2 Saturation 96 Oxygen O2 Source [] Room air O2 Source Room air - EKG (time done) 2307 Rate: Rate (enter#) (85) Rhythm: NSR [place]: Normal Intervals: Normal SC QRS: Normal Ischemia: Normal ST segments Compare to prior EKG: Old EKG unavailable - Labs Labs: Laboratory Tests 06/05/17 06/05/17 06/05/17 23:05 23:05 23:05 WBC 7.2 RBC 4.28 L Hgb 12.8 L Hct 38.7 L MCV 90.5 MCH 29.9 MCHC 33.0 RDW 13.7 Plt Count 243 MPV 9.9 Neut # 5.5 Lymph # 1.1 L Towner # 0.5 Eos # 0.0 Baso # 0.1 Absolute Nucleated RBC 0.00 Nucleated RBC % 0.0 VBG pH VBG pCO2 VBG pO2 VBG HCO3 VBG Total CO2 VBG O2 Saturation VBG Base Excess Sodium 130 L Potassium 4.3 Chloride 96 L Carbon Dioxide 17 L Anion Gap 17.0 H BUN 31 H Creatinine 1.5 H Estimated GFR (MDRD) 49 L Glucose 508 H* Lactic Acid Calcium 9.0 Phosphorus 2.5 Magnesium 2.1 Total Bilirubin 1.3 H AST 147 H ALT < 10 L Alkaline Phosphatase 211 H Troponin I < 0.04 Total Protein 6.2 L Albumin 3.6 Globulin 2.6 Albumin/Globulin Ratio 1.4 Lipase 22 Urine Color Urine Clarity Urine pH Ur Specific [place] Urine Protein Urine Glucose (UA) Urine Ketones Urine Occult Blood Urine Nitrite Urine Bilirubin Urine Urobilinogen Ur Leukocyte Esterase Ur Microscopic Review Urine Culture Comments Urine Opiates Screen Ur Oxycodone Screen Urine Methadone Screen Ur Propoxyphene Screen Ur Barbiturates Screen Ur Tricyclics Screen Ur Phencyclidine Scrn Ur Amphetamine Screen U Methamphetamines Scrn U Benzodiazepines Scrn Urine Cocaine Screen U Cannabinoids Screen Ethyl Alcohol Serum Ketones NEGATIVE 06/05/17 06/05/17 06/06/17 23:45 23:45 00:00 WBC RBC Hgb Hct MCV MCH MCHC RDW Plt Count MPV Neut # Lymph # Towner # Eos # Baso # Absolute Nucleated RBC Nucleated RBC % VBG pH 7.406 VBG pCO2 28.2 L VBG pO2 107.4 H VBG HCO3 17.3 L VBG Total CO2 18.2 L VBG O2 Saturation 97.9 H VBG Base Excess -6.0 L Sodium Potassium Chloride Carbon Dioxide Anion Gap BUN Creatinine Estimated GFR (MDRD) Glucose Lactic Acid 6.9 H* Calcium Phosphorus Magnesium Total Bilirubin AST ALT Alkaline Phosphatase Troponin I Total Protein Albumin Globulin Albumin/Globulin Ratio Lipase Urine Color Urine Clarity Urine pH Ur Specific [place] Urine Protein Urine Glucose (UA) Urine Ketones Urine Occult Blood Urine Nitrite Urine Bilirubin Urine Urobilinogen Ur Leukocyte Esterase Ur Microscopic Review Urine Culture Comments Urine Opiates Screen Ur Oxycodone Screen Urine Methadone Screen Ur Propoxyphene Screen Ur Barbiturates Screen Ur Tricyclics Screen Ur Phencyclidine Scrn Ur Amphetamine Screen U Methamphetamines Scrn U Benzodiazepines Scrn Urine Cocaine Screen U Cannabinoids Screen Ethyl Alcohol < 5.0 Serum Ketones 06/06/17 06/06/17 06/06/17 01:40 01:48 01:48 WBC RBC Hgb Hct MCV MCH MCHC RDW Plt Count MPV Neut # Lymph # Towner # Eos # Baso # Absolute Nucleated RBC Nucleated RBC % VBG pH VBG pCO2 VBG pO2 VBG HCO3 VBG Total CO2 VBG O2 Saturation VBG Base Excess Sodium 135 Potassium 3.8 Chloride 105 Carbon Dioxide 20 L Anion Gap 10.0 BUN 31 H Creatinine 1.1 Estimated GFR (MDRD) 70 L Glucose 177 H Lactic Acid 3.7 H* Calcium 8.1 L Phosphorus Magnesium Total Bilirubin AST ALT Alkaline Phosphatase Troponin I Total Protein Albumin Globulin Albumin/Globulin Ratio Lipase Urine Color YELLOW Urine Clarity CLEAR Urine pH 5.0 Ur Specific [place] 1.015 Urine Protein NEGATIVE Urine Glucose (UA) >=1000 H Urine Ketones 15 H Urine Occult Blood NEGATIVE Urine Nitrite NEGATIVE Urine Bilirubin NEGATIVE Urine Urobilinogen 0.2 (NORMAL) Ur Leukocyte Esterase NEGATIVE Ur Microscopic Review NOT INDICATED Urine Culture Comments NOT INDICATED Urine Opiates Screen NEGATIVE Ur Oxycodone Screen NEGATIVE Urine Methadone Screen NEGATIVE Ur Propoxyphene Screen NEGATIVE Ur Barbiturates Screen NEGATIVE Ur Tricyclics Screen NEGATIVE Ur Phencyclidine Scrn NEGATIVE Ur Amphetamine Screen NEGATIVE U Methamphetamines Scrn NEGATIVE U Benzodiazepines Scrn NEGATIVE Urine Cocaine Screen NEGATIVE U Cannabinoids Screen NEGATIVE Ethyl Alcohol Serum Ketones 06/06/17 04:35 WBC RBC Hgb Hct MCV MCH MCHC RDW Plt Count MPV Neut # Lymph # Towner # Eos # Baso # Absolute Nucleated RBC Nucleated RBC % VBG pH VBG pCO2 VBG pO2 VBG HCO3 VBG Total CO2 VBG O2 Saturation VBG Base Excess Sodium Potassium Chloride Carbon Dioxide Anion Gap BUN Creatinine Estimated GFR (MDRD) Glucose Lactic Acid 2.3 H Calcium Phosphorus Magnesium Total Bilirubin AST ALT Alkaline Phosphatase Troponin I Total Protein Albumin Globulin Albumin/Globulin Ratio Lipase Urine Color Urine Clarity Urine pH Ur Specific [place] Urine Protein Urine Glucose (UA) Urine Ketones Urine Occult Blood Urine Nitrite Urine Bilirubin Urine Urobilinogen Ur Leukocyte Esterase Ur Microscopic Review Urine Culture Comments Urine Opiates Screen Ur Oxycodone Screen Urine Methadone Screen Ur Propoxyphene Screen Ur Barbiturates Screen Ur Tricyclics Screen Ur Phencyclidine Scrn Ur Amphetamine Screen U Methamphetamines Scrn U Benzodiazepines Scrn Urine Cocaine Screen U Cannabinoids Screen Ethyl Alcohol Serum Ketones - Rads (name of study) ct abdomen and pelvis Radiology: Final report received (no acute findings) PD MEDICAL DECISION MAKING - ED course Complexity details: reviewed old records, reviewed results, re-evaluated patient , considered differential, d/w patient, d/w business systems consultant ED course: Patient was seen and examined at bedside. IV access was gained and labs were drawn. Patient was started on a fluid bolus and treated with 10 units IV insulin. Imaging was ordered. Patient's labs revealed a lactic acidosis and mild gap but normal pH and no ketones. Patient's CT was unremarkable. Patient was treated with a second liter bolus and labs were re-drawn. Patient's lactic acid, glucose and electrolytes improved but the lactic acid was still 3.7 (down from 6.9). Case was discussed with hospitalist who stated try a third liter of fluid and lantus and recheck the lactate. After the fluid was finished the lactic acid again was reduced to to 2.1. Patient's pain had resolved. Patient required no further work up at this time and was stable for discharge with outpatient follow up. Departure - Departure Disposition: 01 Home, Self Care Clinical Impression: Uncontrolled type I diabetes mellitus Condition: Good Instructions: ED Hyperglycemia Diabetic Follow-Up: Dalton Finn MD [Primary Care Provider] - Tomorrow Comments: Your symptoms today were likely secondary to gastritis and your blood glucose. Your lab values have improved as you were fluid depleted. I understand that you are having a hard time getting your lantus but it is imperative that you follow up with your doctor today to get it sorted out. You can take pepcid and maalox as needed for pain. You may return to the emergency department at any time for new, worsening or uncontrollable symptoms.
[2017-06-06 01:50] LABS: MUDS CUTOFF CONCENTRATIONS CUTOFF CONC BELOW:
[2017-06-06 01:51] LABS: BILIRUBIN,URINE NEGATIVE (NEGATIVE); GLUCOSE, URINE (UA) >=1000 mg/dL (NEGATIVE); KETONES,URINE (UA) 15 mg/dL (NEGATIVE); LEUKOCYTE ESTERASE, URINE NEGATIVE (NEGATIVE); NITRITE,URINE NEGATIVE (NEGATIVE); OCCULT BLOOD,URINE NEGATIVE (NEGATIVE); PROTEIN,URINE NEGATIVE (NEGATIVE); UROBILINOGEN,URINE 0.2 (NORMAL) E.U./dL (NORMAL)
[2017-06-06 01:52] LABS: CLARITY,URINE CLEAR (CLEAR)
[2017-06-06 02:02] LABS: CALCIUM 8.1 mg/dL (8.5-10.3); CREATININE 1.1 mg/dL (0.6-1.2)
[2017-06-06 02:02] LABS: AMPHETAMINE SCREEN,URINE NEGATIVE (NEGATIVE); BENZODIAZEPINES SCREEN, URINE NEGATIVE (NEGATIVE); COCAINE SCREEN URINE NEGATIVE (NEGATIVE); METHADONE SCREEN, URINE NEGATIVE (NEGATIVE); METHAMPHETAMINES SCREEN, URINE NEGATIVE (NEGATIVE); OPIATE SCREEN, URINE NEGATIVE (NEGATIVE); OXYCODONE SCREEN, URINE NEGATIVE (NEGATIVE); PROPOXYPHENE SCREEN, URINE NEGATIVE (NEGATIVE); TRICYCLIC ANTIDEPRESSANT,URINE NEGATIVE (NEGATIVE)
[2017-06-06] MEDS ORDERED: MAG HYDROX/AL HYDROX/SIMETH 30 ML UDC PO STA (02:15)
[2017-06-06] MEDS ORDERED: LIDOCAINE VISCOUS 2% 15 ML UDC MM STA (02:15)
[2017-06-06] MEDS ORDERED: INSULIN GLARGINE 300 UNIT/3 ML PEN SUBQ STA (02:15)
[2017-06-06] MEDS ORDERED: FAMOTIDINE 20 MG/2 ML VIAL IVP STA (02:15)
[2017-06-06] MEDS ORDERED: LACTATED RINGERS 1,000 ML IV STA (02:18)
[2017-06-06 05:08] VITALS: BP 123/81
== END 2017-06-06 05:08 | disposition home or self-care (01) ==
LOC: ED 22:53
DX: E10.65 Type 1 diabetes mellitus with hyperglycemia (principal); F03.90 Unspecified dementia, unspecified severity, without behavioral disturbance, psychotic disturbance, mood disturbance, and anxiety; I10 Essential (primary) hypertension; E78.00 Pure hypercholesterolemia, unspecified; Z86.73 Personal history of transient ischemic attack (TIA), and cerebral infarction without residual deficits
CPT/HCPCS: 36415; 74176; 80048; 80053; 80306; 81003; 82009; 82803; 83605; 83690; 83735; 84100; 84484; 85025; 93005; 96361; 96374; 99284; 99285; A9270; G0480; J1815; J7120; 80320; 81001; 87086

== ENCOUNTER 2017-11-03 14:57 | Emergency (ER) | payer MEDICARE ==
--- NOTE | 2017-11-03 16:39 | XRAY Report ---
Procedure Date: 11/03/2017 Accession Number: [id number] / [id number] Procedure: XR - Forearm LT CPT Code: FULL RESULT: EXAM: LEFT FOREARM RADIOGRAPHY EXAM DATE: 11/03/2017 04:23 PM. CLINICAL HISTORY: Trauma. Fall from ladder. COMPARISON: None. TECHNIQUE: 2 views. FINDINGS: Bones: Slightly displaced radial head fracture. Otherwise negative for traumatic or destructive bony abnormality. Joints: No subluxations in the visualized wrist or elbow joints. Soft Tissues: Unremarkable. IMPRESSION: Slightly displaced radial head fracture. RADIA
--- NOTE | 2017-11-03 16:41 | XRAY Report ---
Procedure Date: 11/03/2017 Accession Number: [id number] / [id number] Procedure: XR - Chest 2 View X-Ray CPT Code: 26449 FULL RESULT: EXAM: CHEST RADIOGRAPHY EXAM DATE: 11/03/2017 04:23 PM. CLINICAL HISTORY: Trauma. Fall from ladder. COMPARISON: CHEST 1 VIEW 03/10/2017. TECHNIQUE: 2 views. FINDINGS: Lungs/Pleura: No focal opacities evident. No pleural effusion. No pneumothorax. Normal volumes. Mediastinum: Heart and mediastinal contours are unremarkable. Other: Old left rib fractures. No acute fracture identified.. IMPRESSION: No acute fracture identified. RADIA
--- NOTE | 2017-11-03 16:45 | ED Physician Documentation ---
PD HPI Fall - Stated complaint Stated Complaint: INJ-FALL - Chief complaint Chief Complaint: Trauma Ext - History obtained from History obtained from: Patient, Friend - History of Present Illness Mechanism of injury: Other (was going up ladder for painting and the feet of it slid out when he was at top of about 12 feet. He fell left side and the ladder struck him chest area.) Fall distance: 10 to 15ft Timing - onset: Today Injury(ies) location: Chest, Left Uppper Extremity, Left Lower Extremity. No: Head, Neck, Abdomen Quality of pain: Throbbing, Aching. No: Pain Associated symptoms: Amnesia. No: LOC, AMS Worsens with: Movement, Palpation Contributing factors: No: Anticoagulated, Intoxicated Similar symptoms before: Has not had sx before Recently seen: Not recently seen Review of Systems Constitutional: denies: Fever, Chills Nose: denies: Rhinorrhea / runny nose, Congestion Throat: denies: Sore throat Cardiac: reports: Chest pain / pressure. denies: Palpitations, Pedal edema, Calf pain Respiratory: denies: Dyspnea, Cough, Wheezing GI: denies: Abdominal Pain, Nausea, Vomiting Skin: denies: Abrasion (s), Laceration (s) Musculoskeletal: reports: Extremity pain. denies: Neck pain, Back pain Neurologic: denies: Focal weakness, Numbness, Altered mental status, Headache, Head injury PD PAST MEDICAL HISTORY - Past Medical History Cardiovascular: Hypertension, High cholesterol, Other Respiratory: Pneumonia Endocrine/Autoimmune: Type 1 diabetes GI: GERD, Ulcers, Colon polyps : None HEENT: None Psych: None Musculoskeletal: Chronic back pain Derm: None - Past Surgical History Past Surgical History: Yes General: Colonoscopy Ortho: Carpal Tunnel surgery HEENT: Other - Present Medications Home Medications: Ambulatory Orders Medication Instructions Recorded Confirmed Levothyroxine [Synthroid] 125 mcg PO DAILY 09/02/13 01/29/16 Pantoprazole [Protonix] 40 mg PO QPM 03/20/14 01/29/16 Atorvastatin Calcium [Lipitor] 40 mg PO QPM 05/03/14 01/29/16 Cholecalciferol (Vitamin D3) 5,000 mg PO DAILY 05/03/14 01/29/16 [Vitamin D3] Mirtazapine [Remeron] 45 mg PO QPM 05/03/14 01/29/16 Hydroxyzine Pamoate 50 mg PO TID 07/21/14 01/29/16 Trazodone HCl 200 tab PO QPM 07/21/14 01/29/16 Atomoxetine HCl [Strattera] 30 mg PO DAILY 05/16/15 01/29/16 Donepezil [Aricept] 5 mg PO DAILY 08/08/15 01/29/16 Ascorbic Acid [Vitamin C] 500 mg PO DAILY 11/09/15 01/29/16 [place]-3 Fatty Acids [Fish Oil] 1,400 mg PO DAILY 11/09/15 01/29/16 Sertraline HCl 25 mg PO DAILY 11/09/15 01/29/16 Ubidecarenone [Co Q-10] 200 mg PO DAILY 11/09/15 01/29/16 Insulin Glargine [Lantus Solostar] 20 unit SUBQ QPM pen 11/10/15 01/29/16 Insulin Lispro [Humalog] 20 units SQ TID 01/29/16 01/29/16 Amoxicillin 500 mg PO TID #20 capsule 06/10/16 Naproxen 375 mg PO BID #20 tablet 11/03/17 Oxycodone HCl/Acetaminophen 1 each PO Q6H PRN #15 tablet 11/03/17 [Percocet 5-325 mg Tablet] - Allergies Allergies/Adverse Reactions: Allergies Allergy/AdvReac Type Severity Reaction Status Date / Time omeprazole Allergy Intermediate Nausea Verified 03/10/17 18:54 codeine AdvReac Severe Dizziness Verified 03/10/17 18:54 doxycycline AdvReac Intermediate Dizziness Verified 03/10/17 18:54 insulin aspart [From Novolog] AdvReac Edema Verified 03/10/17 18:54 - Social History Does the pt smoke?: No Smoking Status: Never smoker Does the pt drink ETOH?: No Does the pt have substance abuse?: No - Immunizations Immunizations are current?: Yes - POLST Patient has POLST: No PD ED PE NORMAL - Vitals Vital signs reviewed: Yes - General General: Alert and oriented X 3, No acute distress, Well developed/nourished, Other (covered in paint on arms and chest. ) - HEENT HEENT: Atraumatic, Pharynx benign - Neck Neck: Supple, no meningeal sign, No bony TTP, No adenopathy - Cardiac Cardiac: RRR, No murmur, No gallop - Respiratory Respiratory: No respiratory distress, Clear bilaterally, Other (some rigth anteromedial chestwall ) - Abdomen Abdomen: Soft, Non tender - Back Back: No CVA TTP - Derm Derm: Normal color, Warm and dry - Extremities Extremities: Other (left forearm with local redness and swelling dorsal area. There is limited ROM of the radial head area for upination and pronation. Left knee tender anteromedially without effusion. ) - Neuro Neuro: Alert and oriented X 3, No motor deficit, Normal speech Eye Opening: Spontaneous Motor: Obeys Commands Verbal: Oriented GCS Score: 15 - Psych Psych: Normal mood Results - Vitals Vitals: Vital Signs - 24 hr 11/03/17 11/03/17 11/03/17 15:35 17:24 18:14 Temperature 36.6 C 37.4 C Heart Rate 56 L 70 Respiratory 18 20 Rate Blood Pressure 124/82 H 121/65 O2 Saturation 96 98 11/03/17 18:49 Temperature Heart Rate 78 Respiratory 16 Rate Blood Pressure 133/79 H O2 Saturation 95 Oxygen O2 Source [] Room air O2 Source Room air - Rads (name of study) knee xray left Radiology: Prelim report reviewed (no fractures) chest xray Radiology: Prelim report reviewed (no acute process/ injury) forearm xray Radiology: Prelim report reviewed (wrist is okay. Elbow with radial head fracture. True lateral not seen.) elbow lateral Radiology: Prelim report reviewed (radial head fracture, nondisplaced. ) Procedures - Splint (location) left elbow Splint applied by: Tech Type of splint: Fiberglass, Posterior Other: Patient tolerated well, No complications, Neurovascular intact, Good alignment, Sling provided PD MEDICAL DECISION MAKING - ED course Complexity details: reviewed results, considered differential, d/w patient - Sepsis Event Vital Signs: Vital Signs - 24 hr 11/03/17 11/03/17 11/03/17 15:35 17:24 18:14 Temperature 36.6 C 37.4 C Heart Rate 56 L 70 Respiratory 18 20 Rate Blood Pressure 124/82 H 121/65 O2 Saturation 96 98 11/03/17 18:49 Temperature Heart Rate 78 Respiratory 16 Rate Blood Pressure 133/79 H O2 Saturation 95 Oxygen O2 Source [] Room air O2 Source Room air Departure - Departure Disposition: 01 Home, Self Care Clinical Impression: Fall from ladder Qualifiers: Encounter type: initial encounter Qualified Code(s): W11.XXXA - Fall on and from ladder, initial encounter Knee contusion Qualifiers: Encounter type: initial encounter Laterality: left Qualified Code(s): S80.02XA - Contusion of left knee, initial encounter Chest wall contusion Qualifiers: Encounter type: initial encounter Laterality: left Qualified Code(s): S20.212A - Contusion of left front wall of thorax, initial encounter Radial head fracture, closed Qualifiers: Encounter type: initial encounter Fracture alignment: displaced Laterality: left Qualified Code(s): S52.122A - Displaced fracture of head of left radius, initial encounter for closed fracture Condition: Stable Record reviewed to determine appropriate education?: Yes Instructions: ED Fx Radial Head Follow-Up: Dalton Finn MD [Primary Care Provider] - [facility] [Provider Group] Prescriptions: Naproxen 375 mg PO BID #20 tablet Oxycodone HCl/Acetaminophen [Percocet 5-325 mg Tablet] 1 each PO Q6H PRN #15 tablet PRN Reason: Pain Comments: Your chest x-ray and knee x-ray appeared normal without any signs of fracture. They can still be sore from the injury. Your forearm has a contusion on the forearm part which will be sore for several days to week. There is a fracture of the radial head in the elbow. Use the sling to protect the forearm and elbow. Gentle range of motion only over the next week or so. Follow-up with orthopedics, call tomorrow for an appointment for about a week from now to ensure its healing up in the proper position. Naproxen twice daily for pain and add Tylenol or Percocet if needed. Ice and rest for the forearm and injured areas. Forms: Activity restrictions Discharge Date/Time: 11/03/17 18:53
[2017-11-03] MEDS ORDERED: oxyCODONE 5 MG TABLET PO STA (17:14)
[2017-11-03] MEDS ORDERED: KETOROLAC 30 MG/ML VIAL IM STA (17:14)
--- NOTE | 2017-11-03 18:11 | XRAY Report ---
Procedure Date: 11/03/2017 Accession Number: [id number] / [id number] Procedure: XR - Knee 3 View LT CPT Code: FULL RESULT: EXAM: LEFT KNEE RADIOGRAPHY. EXAM DATE: 11/03/2017 05:51 PM. CLINICAL HISTORY: Fall from ladder. COMPARISON: None. TECHNIQUE: 3 views. FINDINGS: Bones: Normal. No fractures or bone lesions. Joints: No effusion or lipohemarthrosis. No subluxation/dislocation. Minimal osteophytic spurring at the superior patella. Soft Tissues: Mild soft tissue thickening over the patella and patellar tendon. IMPRESSION: No acute osseous abnormality with minimal/early patellofemoral DJD. RADIA
--- NOTE | 2017-11-03 18:12 | XRAY Report ---
Procedure Date: 11/03/2017 Accession Number: [id number] / [id number] Procedure: XR - Elbow 2 View LT CPT Code: FULL RESULT: EXAM: LEFT ELBOW RADIOGRAPHY. EXAM DATE: 11/03/2017 05:51 PM. CLINICAL HISTORY: Radial head fracture on forearm x-ray. COMPARISON: Concurrent left forearm radiographs. TECHNIQUE: Single lateral views. FINDINGS: Bones: Minimally displaced radial head fracture. Joints: There is a joint effusion. No subluxation/dislocation. Soft Tissues: Unremarkable. IMPRESSION: Minimally displaced radial head fracture with joint effusion. RADIA
[2017-11-03] MEDS ORDERED: MORPHINE 10 MG/ML VIAL IM STA (18:15)
[2017-11-03 18:52] VITALS: BP 133/79
== END 2017-11-03 18:53 | disposition home or self-care (01) ==
LOC: ED 14:57
DX: S80.02XA Contusion of left knee, initial encounter (principal); S20.212A Contusion of left front wall of thorax, initial encounter; S52.122B Displaced fracture of head of left radius, initial encounter for open fracture type I or II; W11.XXXA Fall on and from ladder, initial encounter; Y93.89 Activity, other specified; I10 Essential (primary) hypertension; E10.8 Type 1 diabetes mellitus with unspecified complications
CPT/HCPCS: 29105; 71046; 73070; 73090; 73562; 96372; 99283; A9270

== ENCOUNTER 2018-06-25 08:00 | Outpatient (CLI) | payer MEDICARE | END 2018-06-25 23:59 | disposition home or self-care (01) | LOC: LAB.N 08:00 | PROVIDERS: ATTEND Internal Medicine | DX: E10.65 Type 1 diabetes mellitus with hyperglycemia (principal); M48.56XS Collapsed vertebra, not elsewhere classified, lumbar region, sequela of fracture; M54.5 Low back pain; M47.816 Spondylosis without myelopathy or radiculopathy, lumbar region | CPT/HCPCS: 36415; 72100; 81599; 82947 ==

== ENCOUNTER 2018-07-02 12:36 | Outpatient (CLI) | payer MEDICARE | END 2018-07-02 12:37 | disposition critical access hospital (66) | LOC: EMS 12:36 | PROVIDERS: ATTEND Surgery | DX: I49.9 Cardiac arrhythmia, unspecified (principal) | CPT/HCPCS: A0425; A0427 ==

== ENCOUNTER 2018-07-02 13:03 | Observation (INO) | payer MEDICARE ==
[2018-07-02] MEDS ORDERED: LORazepam 2 MG/ML VIAL IVP STA (13:29)
[2018-07-02] MEDS ORDERED: LORazepam 2 MG/ML VIAL ONE (13:53)
--- NOTE | 2018-07-02 14:46 | XRAY Report ---
Reason: chest palpitation Procedure Date: 07/02/2018 Accession Number: [id number] / [id number] Procedure: XR - Chest 2 View X-Ray CPT Code: 51539 FULL RESULT: EXAM: CHEST RADIOGRAPHY EXAM DATE: 07/02/2018 02:29 PM. CLINICAL HISTORY: Chest palpitation. COMPARISON: CHEST 2 VIEW 11/03/2017 4:08 PM. TECHNIQUE: 2 views. FINDINGS: Lungs/Pleura: No focal opacities evident. No pleural effusion. No pneumothorax. Lungs are mildly hyperinflated. Mediastinum: Heart and mediastinal contours are normal. Other: None. IMPRESSION: No acute cardiopulmonary abnormality. RADIA
[2018-07-02 16:08] LABS: ALBUMIN 4.4 g/dL (3.2-5.5); ALBUMIN/GLOBULIN RATIO 1.3 (1.0-2.2); BILIRUBIN,TOTAL 1.8 mg/dL (0.2-1.0); CALCIUM 9.3 mg/dL (8.5-10.3); CREATININE 1.3 mg/dL (0.6-1.2); MAGNESIUM 2.1 mg/dL (1.7-2.8); TOTAL PROTEIN 7.7 g/dL (6.7-8.2)
[2018-07-02 16:17] LABS: BASOPHILS # (AUTO) 0.1 10^3/uL (0.0-0.1); BASOPHILS % (AUTO) 0.5 %; EOSINOPHILS % (AUTO) 0.1 %; HGB - HEMOGLOBIN 15.6 g/dL (14.0-18.0); LYMPHOCYTES # (AUTO) 0.8 10^3/uL (1.5-3.5); LYMPHOCYTES % (AUTO) 6.2 %; MEAN CORPUSCULAR HEMOGLOBIN 30.4 pg (27.0-31.0); MEAN CORPUSCULAR HGB CONC 33.1 g/dL (32.0-36.0); MEAN CORPUSCULAR VOLUME 91.9 fL (80.0-94.0); MEAN PLATELET VOLUME 11.5 fL (7.4-11.4); MONOCYTES # (AUTO) 0.4 10^3/uL (0.0-1.0); MONOCYTES % (AUTO) 3.5 %; NEUTROPHILS # (AUTO) 11.5 10^3/uL (1.5-6.6); NEUTROPHILS % (AUTO) 89.7 %; RED BLOOD COUNT 5.13 10^6/uL (4.70-6.10); RED CELL DISTRIBUTION WIDTH 12.9 % (12.0-15.0); WHITE BLOOD COUNT 12.8 x10^3/uL (4.8-10.8)
[2018-07-02 16:27] LABS: PLATELET ESTIMATE, MANUAL NORMAL (130-450,000) (NORMAL); PLATELET MORPHOLOGY PLATELET CLUMPING (NORMAL); RBC MORPHOLOGY (MULTIPLE) NORMAL APPEARANCE (NORMAL)
[2018-07-02] MEDS ORDERED: SODIUM CHLORIDE 0.9% 1,000 ML IV ONE ×3 (16:53→19:21)
[2018-07-02] MEDS ORDERED: INSULIN REGULAR HUMAN 100 UNIT/1 ML 10 ML MDV IVP STA (16:53)
[2018-07-02] MEDS ORDERED: ONDANSETRON 4 MG/2 ML VIAL IVP STA (16:53)
[2018-07-02 17:29] LABS: VBG BASE EXCESS -14.2 mmol/L (-2 - +2); VBG PCO2 35.2 mmHg (41-51); VBG PH 7.185 (7.31-7.41); VBG TOTAL CO2 14.1 mmol/L (24-29)
[2018-07-02 17:40] LABS: CALCIUM 9.2 mg/dL (8.5-10.3); CREATININE 1.5 mg/dL (0.6-1.2)
--- NOTE | 2018-07-02 17:48 | ED Physician Documentation ---
PD HPI CHEST PAIN - Stated complaint Stated Complaint: IRREGULAR HEART RATE - Chief complaint Chief Complaint: Cardiac - History obtained from History obtained from: Patient - History of Present Illness Timing - onset: Today (This morning about 9 or 10:00 he noticed onset of feeling of palpitations and a little bit of chest pressure. He was at rest at the time. He did not have any nausea but felt a little lightheaded. He states he has had intermittent palpitations in the past but not as regular as this morning.) Timing - onset during: Rest Timing - details: Abrupt onset, Now resolved, Intermittant Quality: Tightness Location: Substernal, Left chest Radiation: No: Jaw, Back Worsened by: No: Exertion, Inspiration Associated symptoms: Feeling faint / dizzy, Palpitations. No: Shortness of air, Nausea Similar symptoms before: Has not had sx before Recently seen: Not recently seen Review of Systems Constitutional: denies: Fever, Chills Nose: reports: Sinus pressure / pain (for a week with some colored drainage). denies: Rhinorrhea / runny nose, Congestion Throat: denies: Sore throat Cardiac: reports: Palpitations. denies: Chest pain / pressure, Pedal edema Respiratory: reports: Cough (productive yellow sputum for a week or so.). denies: Dyspnea GI: denies: Abdominal Pain, Nausea, Vomiting, Diarrhea Neurologic: reports: Generalized weakness. denies: Focal weakness, Numbness, Near syncope Psychiatric: reports: Anxiety. denies: Depressed Endocrine: denies: Weight loss Immunocompromised: denies: Immunocompromised PD PAST MEDICAL HISTORY - Past Medical History Past Medical History: Yes Cardiovascular: Hypertension, High cholesterol, Other Respiratory: Pneumonia Endocrine/Autoimmune: Type 1 diabetes GI: GERD, Ulcers, Colon polyps : None HEENT: None Psych: None Musculoskeletal: Chronic back pain Derm: None - Past Surgical History Past Surgical History: Yes General: Colonoscopy Ortho: Carpal Tunnel surgery HEENT: Other - Present Medications Home Medications: Ambulatory Orders Medication Instructions Recorded Confirmed Levothyroxine [Synthroid] 125 mcg PO DAILY 09/02/13 01/29/16 Pantoprazole [Protonix] 40 mg PO QPM 03/20/14 01/29/16 Atorvastatin Calcium [Lipitor] 40 mg PO QPM 05/03/14 01/29/16 Cholecalciferol (Vitamin D3) 5,000 mg PO DAILY 05/03/14 01/29/16 [Vitamin D3] Hydroxyzine Pamoate 50 mg PO TID 07/21/14 01/29/16 Trazodone HCl 200 tab PO QPM 07/21/14 01/29/16 Atomoxetine HCl [Strattera] 30 mg PO DAILY 05/16/15 01/29/16 Donepezil [Aricept] 5 mg PO DAILY 08/08/15 01/29/16 Ascorbic Acid [Vitamin C] 500 mg PO DAILY 11/09/15 01/29/16 [place]-3 Fatty Acids [Fish Oil] 1,400 mg PO DAILY 11/09/15 01/29/16 Sertraline HCl 25 mg PO DAILY 11/09/15 01/29/16 Ubidecarenone [Co Q-10] 200 mg PO DAILY 11/09/15 01/29/16 Insulin Lispro [Humalog] 20 units SQ TID 01/29/16 01/29/16 Amoxicillin 500 mg PO TID #20 capsule 06/10/16 Naproxen 375 mg PO BID #20 tablet 11/03/17 Oxycodone HCl/Acetaminophen 1 each PO Q6H PRN #15 tablet 11/03/17 [Percocet 5-325 mg Tablet] Insulin Glargine [Lantus Solostar] 60 unit SUBQ QPM 07/02/18 07/02/18 Mirtazapine 45 mg PO QPM 07/02/18 07/02/18 Tamsulosin [Flomax] 0.4 mg PO 1730 07/02/18 07/02/18 - Allergies Allergies/Adverse Reactions: Allergies Allergy/AdvReac Type Severity Reaction Status Date / Time omeprazole Allergy Intermediate Nausea Verified 03/10/17 18:54 codeine AdvReac Severe Dizziness Verified 03/10/17 18:54 doxycycline AdvReac Intermediate Dizziness Verified 03/10/17 18:54 insulin aspart [From Novolog] AdvReac Edema Verified 03/10/17 18:54 insulin regular AdvReac Unknown Verified 07/02/18 17:23 [From Novolin R Regular U-100 Insuln] - Social History Does the pt smoke?: No Smoking Status: Never smoker Does the pt drink ETOH?: No Does the pt have substance abuse?: No - Immunizations Immunizations are current?: Yes - POLST Patient has POLST: No PD ED PE NORMAL - Vitals Vital signs reviewed: Yes - General General: Alert and oriented X 3, Well developed/nourished - HEENT HEENT: Pharynx benign - Neck Neck: Supple, no meningeal sign, No adenopathy, No JVD - Cardiac Cardiac: RRR, No murmur - Respiratory Respiratory: No respiratory distress, Clear bilaterally, Other (no chestwall tenderness) - Abdomen Abdomen: Normal bowel sounds, Soft, Non tender, Non distended, No organomegaly - Derm Derm: Normal color, Warm and dry - Extremities Extremities: No tenderness to palpate, Normal ROM s pain, No edema, No calf tenderness / cord Results - Vitals Vitals: Vital Signs - 24 hr 07/02/18 07/02/18 07/02/18 13:11 13:28 17:10 Temperature 36.4 C L Heart Rate 97 86 75 Respiratory 13 20 18 Rate Blood Pressure 136/117 H 136/117 H 133/77 H O2 Saturation 99 97 96 07/02/18 17:26 Temperature Heart Rate 93 Respiratory 20 Rate Blood Pressure 121/65 O2 Saturation 99 Oxygen O2 Source [Without Activity] Room air O2 Source Room air - Labs Labs: Laboratory Tests 07/02/18 07/02/18 07/02/18 14:00 14:00 14:00 WBC 12.8 H RBC 5.13 Hgb 15.6 Hct 47.2 MCV 91.9 MCH 30.4 MCHC 33.1 RDW 12.9 Plt Count CABLE MAKER MPV 11.5 H Neut # (Auto) 11.5 H Lymph # (Auto) 0.8 L Bled[place] # (Auto) 0.4 Eos # (Auto) 0.0 Baso # (Auto) 0.1 Absolute Nucleated RBC 0.02 Nucleated RBC % 0.2 Platelet Estimate NORMAL (130-450,000) Platelet Morphology PLATELET CLUMPING RBC Morph Micro Appear NORMAL APPEARANCE VBG pH VBG pCO2 VBG pO2 VBG HCO3 VBG Total CO2 VBG O2 Saturation VBG Base Excess Sodium 133 L Potassium 6.1 H* Chloride 97 L Carbon Dioxide 15 L Anion Gap 21.0 H BUN 24 H Creatinine 1.3 H Estimated GFR (MDRD) 58 L Glucose 459 H Calcium 9.3 Magnesium 2.1 Total Bilirubin 1.8 H AST 20 ALT 21 Alkaline Phosphatase 88 Troponin I < 0.04 B-Natriuretic Peptide Total Protein 7.7 Albumin 4.4 Globulin 3.3 Albumin/Globulin Ratio 1.3 Lipase 23 TSH Serum Ketones 07/02/18 07/02/18 07/02/18 14:00 14:00 14:00 WBC RBC Hgb Hct MCV MCH MCHC RDW Plt Count MPV Neut # (Auto) Lymph # (Auto) Bledsoe # (Auto) Eos # (Auto) Baso # (Auto) Absolute Nucleated RBC Nucleated RBC % Platelet Estimate Platelet Morphology RBC Morph Micro Appear VBG pH VBG pCO2 VBG pO2 VBG HCO3 VBG Total CO2 VBG O2 Saturation VBG Base Excess Sodium Potassium Chloride Carbon Dioxide Anion Gap BUN Creatinine Estimated GFR (MDRD) Glucose Calcium Magnesium Total Bilirubin AST ALT Alkaline Phosphatase Troponin I B-Natriuretic Peptide 151 H Total Protein Albumin Globulin Albumin/Globulin Ratio Lipase TSH 1.80 Serum Ketones SMALL H 07/02/18 07/02/18 07/02/18 16:33 17:24 17:24 WBC RBC Hgb Hct MCV MCH MCHC RDW Plt Count MPV Neut # (Auto) Lymph # (Auto) Bledsoe # (Auto) Eos # (Auto) Baso # (Auto) Absolute Nucleated RBC Nucleated RBC % Platelet Estimate Platelet Morphology RBC Morph Micro Appear VBG pH 7.185 L VBG pCO2 35.2 L VBG pO2 32.0 VBG HCO3 13.0 L VBG Total CO2 14.1 L VBG O2 Saturation 53.7 L VBG Base Excess -14.2 L Sodium 134 L Potassium 5.7 H Chloride 97 L Carbon Dioxide 12 L* Anion Gap 25.0 H BUN 27 H Creatinine 1.5 H Estimated GFR (MDRD) 49 L Glucose 475 H Calcium 9.2 Magnesium Total Bilirubin AST ALT Alkaline Phosphatase Troponin I < 0.04 B-Natriuretic Peptide Total Protein Albumin Globulin Albumin/Globulin Ratio Lipase TSH Serum Ketones - Rads (name of study) chest xray Radiology: Prelim report reviewed (no infiltrates), See rad report PD MEDICAL DECISION MAKING - ED course Complexity details: re-evaluated patient (As he was here in the department given time for repeat troponin, he started feeling more general malaise and some nausea. Recheck of his labs showed a falling bicarbonate and his sugar was still 400s. This triggered the possibility of ketoacidosis and I get a blood gas and ketones. I presume his chest discomfort this morning was some palpitations or such. No signs of heart attack. His EKG was normal. However he has had a cough for the past week with some sputum. He now seems to be in early and developing DKA. Given his sensitivity to the types of insulin, we would do you using bolus dose of his home insulin rather than the hospital drip.), considered differential, d/w patient Departure - Departure Disposition: ED Place in Observation Clinical Impression: Heart palpitations, Acute bronchitis Diabetic ketoacidosis Qualifiers: Diabetes mellitus type: type 1 Diabetes mellitus complication detail: without coma Qualified Code(s): E10.10 - Type 1 diabetes mellitus with ketoacidosis without coma Condition: Stable Record reviewed to determine appropriate education?: Yes Discharge Date/Time: 07/02/18 21:25
[2018-07-02] MEDS ORDERED: INSULIN ASPART 100 UNIT/1 ML 10 ML MDV SUBQ STA (18:56)
[2018-07-02] MEDS ORDERED: INSULIN REGULAR HUMAN 100 UNIT/1 ML 10 ML MDV SUBQ ONE (19:21)
[2018-07-02] MEDS ORDERED: SODIUM CHLORIDE FLUSH 0.9% 10 ML SYRINGE IVP PRN (19:25)
[2018-07-02] MEDS ORDERED: MORPHINE 2 MG/ML SYRINGE IVP PRN (19:25)
[2018-07-02] MEDS ORDERED: diphenhydrAMINE INJ 50 MG/ML VIAL IVP PRN (19:31)
[2018-07-02] MEDS ORDERED: AMOXICILLIN 250 MG CAPSULE PO STA (19:49)
[2018-07-02 20:07] LABS: VBG PCO2 31.3 mmHg (41-51); VBG PH 7.242 (7.31-7.41); VBG PO2 45.2 mmHg (25-47)
[2018-07-02 20:08] LABS: VBG BASE EXCESS -12.8 mmol/L (-2 - +2); VBG TOTAL CO2 14.1 mmol/L (24-29)
[2018-07-02 20:10] LABS: KETONES, SERUM (ACETEST) SMALL (NEGATIVE)
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
[2018-07-02 20:15] LABS: BUN - BLOOD UREA NITROGEN 24 mg/dL (6-20); CALCIUM 8.3 mg/dL (8.5-10.3); CARBON DIOXIDE - CO2 13 mmol/L (21-32); CHLORIDE 104 mmol/L (101-111); CREATININE 1.2 mg/dL (0.6-1.2); GFR - MDRD 63 (>89); GLUCOSE 318 mg/dL (70-100); MAGNESIUM 1.8 mg/dL (1.7-2.8); SODIUM 136 mmol/L (135-145)
[2018-07-02] MEDS ORDERED: ASPIRIN 300 MG SUPP PR STA (20:23)
[2018-07-02] MEDS ORDERED: NITROGLYCERIN SL 0.4 MG TABLET SL PRN (20:24)
[2018-07-02 20:25] LABS: HB2 TOTAL 15.7 g/dL; HEMOGLOBIN A1C 1.48 g/dL; HEMOGLOBIN A1C % 10.8 % (4.6-6.2)
[2018-07-02] MEDS ORDERED: METHOCARBAMOL 500 MG TABLET PO PRN (20:43)
[2018-07-02] MEDS ORDERED: ACETAMINOPHEN/CODEINE 300 MG/30 MG TABLET PO PRN (20:43)
[2018-07-02] MEDS ORDERED: LIDOCAINE PATCH 5% TOP SCH (21:00)
[2018-07-02] MEDS ORDERED: FAMOTIDINE 20 MG/2 ML VIAL IVP SCH (21:00)
[2018-07-02] MEDS ORDERED: ONDANSETRON ODT 4 MG TABLET TL PRN (21:31)
[2018-07-02] MEDS ORDERED: ONDANSETRON 4 MG/2 ML VIAL IVP PRN (21:31)
[2018-07-02 21:46] LABS: BUN - BLOOD UREA NITROGEN 23 mg/dL (6-20); CALCIUM 8.2 mg/dL (8.5-10.3); CARBON DIOXIDE - CO2 14 mmol/L (21-32); CHLORIDE 107 mmol/L (101-111); CREATININE 1.3 mg/dL (0.6-1.2); GFR - MDRD 58 (>89); GLUCOSE 271 mg/dL (70-100); SODIUM 137 mmol/L (135-145)
[2018-07-02 21:50] LABS: KETONES, SERUM (ACETEST) SMALL (NEGATIVE)
[2018-07-02 22:55] LABS: KETONES, SERUM (ACETEST) SMALL (NEGATIVE)
[2018-07-02 22:57] LABS: BUN - BLOOD UREA NITROGEN 22 mg/dL (6-20); CALCIUM 8.5 mg/dL (8.5-10.3); CARBON DIOXIDE - CO2 13 mmol/L (21-32); CHLORIDE 105 mmol/L (101-111); CREATININE 1.1 mg/dL (0.6-1.2); GFR - MDRD 70 (>89); GLUCOSE 280 mg/dL (70-100); MAGNESIUM 1.9 mg/dL (1.7-2.8); SODIUM 136 mmol/L (135-145)
[2018-07-02] MEDS: ASPIRIN CHEW 81 MG TABLET PO SCH (22:57)
[2018-07-02] MEDS: INSULIN REGULAR HUMAN 100 UNIT in SODIUM CHLORIDE 0.9% 100ML 99 ML IV SCH (23:07)
[2018-07-02] MEDS: SODIUM CHLORIDE 0.9% 1,000 ML IV SCH (23:33)
[2018-07-02] MEDS ORDERED: SODIUM CHLORIDE 0.9% 1,000 ML IV SCH (23:45)
[2018-07-03] MEDS: MORPHINE 2 MG/ML SYRINGE IVP PRN ×2 (00:36→10:51)
[2018-07-03 01:05] LABS: KETONES, SERUM (ACETEST) SMALL (NEGATIVE)
[2018-07-03] MEDS: SODIUM CHLORIDE 0.9% 1,000 ML IV SCH ×2 (01:05→02:11)
[2018-07-03 01:07] LABS: GLUCOSE 217 mg/dL (70-100)
[2018-07-03 01:08] LABS: CALCIUM 7.9 mg/dL (8.5-10.3); CREATININE 1.2 mg/dL (0.6-1.2)
[2018-07-03] MEDS: SODIUM CHLORIDE FLUSH 0.9% 10 ML SYRINGE IVP SCH ×3 (01:25→16:48)
[2018-07-03] MEDS ORDERED: POTASSIUM CHLOR 10 MEQ/100 ML 10 MEQ/100 ML BAG IV ONE (01:31)
[2018-07-03] MEDS: DEXTROSE 5%-0.45% NACL 1,000 ML IV SCH ×3 (01:55→09:52)
[2018-07-03] MEDS ORDERED: INSULIN GLARGINE 300 UNIT/3 ML PEN SUBQ SCH ×3 (03:00→21:00)
[2018-07-03 03:08] LABS: KETONES, SERUM (ACETEST) SMALL (NEGATIVE)
[2018-07-03 03:09] LABS: BUN - BLOOD UREA NITROGEN 19 mg/dL (6-20); CALCIUM 8.1 mg/dL (8.5-10.3); CARBON DIOXIDE - CO2 18 mmol/L (21-32); CHLORIDE 113 mmol/L (101-111); CREATININE 1.1 mg/dL (0.6-1.2); GFR - MDRD 70 (>89); GLUCOSE 112 mg/dL (70-100); SODIUM 139 mmol/L (135-145)
[2018-07-03 06:07] LABS: BASOPHILS # (AUTO) 0.1 10^3/uL (0.0-0.1); BASOPHILS % (AUTO) 1.4 %; EOSINOPHILS # (AUTO) 0.1 10^3/uL (0.0-0.7); EOSINOPHILS % (AUTO) 0.9 %; HGB - HEMOGLOBIN 12.8 g/dL (14.0-18.0); LYMPHOCYTES # (AUTO) 1.7 10^3/uL (1.5-3.5); LYMPHOCYTES % (AUTO) 17.9 %; MEAN CORPUSCULAR HEMOGLOBIN 30.9 pg (27.0-31.0); MEAN CORPUSCULAR HGB CONC 34.2 g/dL (32.0-36.0); MEAN CORPUSCULAR VOLUME 90.4 fL (80.0-94.0); MEAN PLATELET VOLUME 9.9 fL (7.4-11.4); MONOCYTES # (AUTO) 0.8 10^3/uL (0.0-1.0); MONOCYTES % (AUTO) 8.8 %; NEUTROPHILS # (AUTO) 6.6 10^3/uL (1.5-6.6); PLT - PLATELET COUNT 185 10^3/uL (130-450); RED BLOOD COUNT 4.13 10^6/uL (4.70-6.10); RED CELL DISTRIBUTION WIDTH 12.8 % (12.0-15.0); WHITE BLOOD COUNT 9.3 x10^3/uL (4.8-10.8)
[2018-07-03 06:08] LABS: VBG PCO2 31.2 mmHg (41-51); VBG PH 7.366 (7.31-7.41); VBG PO2 132.6 mmHg (25-47); VBG TOTAL CO2 18.4 mmol/L (24-29)
[2018-07-03 06:09] LABS: VBG BASE EXCESS -6.7 mmol/L (-2 - +2)
[2018-07-03 06:24] LABS: HB2 TOTAL 13.4 g/dL; HEMOGLOBIN A1C 1.27 g/dL; HEMOGLOBIN A1C % 10.8 % (4.6-6.2)
[2018-07-03] MEDS: INSULIN ASPART 300 UNIT/3 ML PEN SUBQ SCH ×5 (08:31→16:48)
[2018-07-03] MEDS: INSULIN REGULAR HUMAN 100 UNIT in SODIUM CHLORIDE 0.9% 100ML 99 ML IV SCH (08:35)
[2018-07-03] MEDS: ASPIRIN CHEW 81 MG TABLET PO SCH (08:39)
[2018-07-03] MEDS ORDERED: SERTRALINE 25 MG TABLET PO SCH (09:00)
[2018-07-03] MEDS ORDERED: FAMOTIDINE 20 MG TABLET PO SCH (09:00)
[2018-07-03] MEDS ORDERED: LEVOTHYROXINE 125 MCG TABLET PO SCH (09:00)
[2018-07-03 14:53] VITALS: BP 129/83
--- NOTE | 2018-07-03 17:08 | Discharge Plan ---
Discharge Plan Disposition: 01 Home, Self Care Condition: Good Prescriptions: Lidocaine Patch 5% [Lidoderm Patch] 2 patch TOP HS #30 patch Diet: Diabetic Activity Restrictions: Activity as Tolerated Shower Restrictions: No Driving Restrictions: No Instruction Topics: Diabetic Ketoacidosis Additional Instructions or Follow Up instructions: You were admitted to the hospital for treatment of diabetic ketoacidosis from uncontrolled diabetes. After we aggressively hydrated you with IV saline and an insulin drip your glucose is now normal. Please make sure you take your medicine as instructed. It seems your diabetes has been uncontrolled for months now since your glycosylated hemoglobin or A1c was 10% You have asked for a lidoderm patch for pain and that was sent to your pharmacy. Please make sure you see your primary care provider in the next week for followup. No Smoking: If you smoke, Please STOP! Call for help. Follow-up with: Suki Merrill ARNP [Primary Care Provider] -
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
[2018-07-04] MEDS ORDERED: LEVOTHYROXINE 125 MCG TABLET PO SCH (07:00)
== END 2018-07-03 18:45 | disposition home or self-care (01) ==
LOC: EDUNIT# → EDSEX → ED 13:03 → ICU 19:25
PROVIDERS: ADMIT Family Medicine; ATTEND Specialist
DX: E10.10 Type 1 diabetes mellitus with ketoacidosis without coma (principal); E10.22 Type 1 diabetes mellitus with diabetic chronic kidney disease; E10.65 Type 1 diabetes mellitus with hyperglycemia; I12.9 Hypertensive chronic kidney disease with stage 1 through stage 4 chronic kidney disease, or unspecified chronic kidney disease; N18.2 Chronic kidney disease, stage 2 (mild); N17.9 Acute kidney failure, unspecified; Z79.4 Long term (current) use of insulin; E87.8 Other disorders of electrolyte and fluid balance, not elsewhere classified; E86.0 Dehydration; D72.829 Elevated white blood cell count, unspecified; M54.9 Dorsalgia, unspecified; E78.5 Hyperlipidemia, unspecified; E03.9 Hypothyroidism, unspecified; Z82.49 Family history of ischemic heart disease and other diseases of the circulatory system; Z86.73 Personal history of transient ischemic attack (TIA), and cerebral infarction without residual deficits; T38.3X6A Underdosing of insulin and oral hypoglycemic [antidiabetic] drugs, initial encounter; K21.9 Gastro-esophageal reflux disease without esophagitis; I25.10 Atherosclerotic heart disease of native coronary artery without angina pectoris; G89.29 Other chronic pain
CPT/HCPCS: 36415; 71046; 80048; 82009; 82803; 82947; 83036; 83690; 83735; 83880; 84132; 84484; 85025; 87150; 93005; 96361; 96365; 96375; 96376; 99284; A9270; G0378; J1200; J1815; J2060; J2270; 80053; 84443; 96374; 99283

== ENCOUNTER 2018-12-13 23:01 | Outpatient (CLI) | payer MEDICARE, MEDICAID | END 2018-12-13 23:02 | disposition critical access hospital (66) | LOC: EMS 23:01 | PROVIDERS: ATTEND Surgery | DX: R25.2 Cramp and spasm (principal) | CPT/HCPCS: A0425; A0427 ==

== ENCOUNTER 2018-12-13 23:19 | Emergency (ER) | payer MEDICARE, MEDICAID ==
[2018-12-13] MEDS ORDERED: SODIUM CHLORIDE 0.9% 1,000 ML IV ONE (23:28)
[2018-12-13] MEDS ORDERED: LORazepam 2 MG/ML VIAL IVP STA (23:28)
--- NOTE | 2018-12-13 23:31 | ED Physician Documentation ---
History of Present Illness - Stated complaint Stated Complaint: ARM/LEG CRAMPING - Chief complaint Chief Complaint: Ext Problem - Additonal information Additional information: This is a 53-year-old male with a history of a prior stroke with residual mild right-sided facial droop, as well as insulin-dependent diabetes, who presents with muscle cramping and spasming. Patient states that around 30 to 40 minutes prior to arrival he was watching TV and suddenly he began having cramping in his bilateral hands and his right foot. This was so painful and intense that EMS was called. When they arrived he was highly uncomfortable and hyperventilating, they were able to slow down his breathing by talking to him, and patient currently states that his cramping is slightly improved from how it was before. He denies any chest pain or shortness of breath. He does take potassium and took his last potassium supplement 30 minutes prior to the onset of this cramping. He also did smoke a joint of marijuana which was a different type of marijuana that he is used before. He denies other drug use. Patient's blood sugar was over 400 for EMS, his states that he generally has poor control his blood sugar and today when she asked him what his blood sugar was he did not even know so he may not have checked it. Review of Systems Constitutional: denies: Fever Eyes: denies: Loss of vision Cardiac: denies: Chest pain / pressure Respiratory: denies: Dyspnea GI: denies: Abdominal Pain, Vomiting : denies: Dysuria Skin: denies: Rash Musculoskeletal: reports: Extremity pain. denies: Neck pain Neurologic: reports: Other (History CVA with right facial droop) PD PAST MEDICAL HISTORY - Past Medical History Cardiovascular: Hypertension, High cholesterol, Other Respiratory: Pneumonia Neuro: CVA, Other Endocrine/Autoimmune: Type 1 diabetes GI: GERD, Ulcers, Colon polyps : None HEENT: None Psych: None Musculoskeletal: Chronic back pain Derm: None - Past Surgical History Past Surgical History: Yes General: Colonoscopy Ortho: Carpal Tunnel surgery HEENT: Other - Present Medications Home Medications: Ambulatory Orders Medication Instructions Recorded Confirmed Levothyroxine [Synthroid] 125 mcg PO QDAC 09/02/13 07/03/18 Atorvastatin Calcium [Lipitor] 40 mg PO QPM 05/03/14 07/03/18 Trazodone HCl 100 mg PO QPM 07/21/14 07/03/18 Donepezil [Aricept] 5 mg PO DAILY 08/08/15 07/03/18 Sertraline HCl 25 mg PO DAILY 11/09/15 07/03/18 Insulin Lispro [Humalog] 15 - 20 units SQ TIDWM 01/29/16 07/03/18 Mirtazapine 45 mg PO QPM 07/02/18 07/02/18 Tamsulosin [Flomax] 0.4 mg PO 1730 07/02/18 07/02/18 Insulin NPH Human [NovoLIN N] 20 unit SUBQ BID 07/03/18 07/03/18 Lidocaine Patch 5% [Lidoderm Patch] 2 patch TOP HS #30 patch 07/03/18 [place]-3 Fatty Acids/Fish Oil 1,000 mg PO DAILY 07/03/18 07/03/18 [[place]-3 Fish Oil 1,000 mg Sfgl] hydrOXYzine pamoate [Hydroxyzine 150 mg PO QPM 07/03/18 07/03/18 Pamoate] - Allergies Allergies/Adverse Reactions: Allergies Allergy/AdvReac Type Severity Reaction Status Date / Time omeprazole Allergy Intermediate Nausea Verified 12/13/18 23:26 codeine AdvReac Severe Dizziness Verified 12/13/18 23:26 doxycycline AdvReac Intermediate Dizziness Verified 12/13/18 23:26 insulin aspart [From Novolog] AdvReac Edema Verified 12/13/18 23:26 insulin regular AdvReac Unknown Verified 12/13/18 23:26 [From Novolin R Regular U-100 Insuln] - Social History Does the pt smoke?: No Smoking Status: Never smoker Does the pt drink ETOH?: No Does the pt have substance abuse?: No - Immunizations Immunizations are current?: Yes - POLST Patient has POLST: No PD ED PE NORMAL - Vitals Vital signs reviewed: Yes - General General: Alert and oriented X 3 - HEENT HEENT: Atraumatic, PERRL - Neck Neck: Supple, no meningeal sign - Cardiac Cardiac: RRR - Respiratory Respiratory: No respiratory distress, Clear bilaterally - Abdomen Abdomen: Normal bowel sounds, Soft, Non tender, Non distended - Derm Derm: Warm and dry - Extremities Extremities: No deformity, Other (Hands are tense, however when I passively range patient's digits and wrists primarily do so without significant resistance) - Neuro Neuro: Alert and oriented X 3, No motor deficit, No sensory deficit, Other (Mild right-sided facial droop) - Psych Psych: Normal mood, Normal affect Results - Vitals Vitals: Vital Signs - 24 hr 12/13/18 12/14/18 23:21 00:30 Temperature 36.0 C L Heart Rate 76 69 Respiratory 18 12 Rate Blood Pressure 129/81 H 117/72 O2 Saturation 99 98 Oxygen O2 Source [] Room air O2 Source Room air - EKG (time done) 23:27 Other comments: Other comments (Rate 71, rhythm sinus, axis is normal, there is no ST segment elevation or depression, no abnormal T wave inversions. Intervals are within normal limits.) - Labs Labs: Laboratory Tests 12/13/18 12/13/18 12/13/18 23:35 23:35 23:35 WBC 8.3 RBC 4.53 L Hgb 13.8 L Hct 39.3 L MCV 86.8 MCH 30.5 MCHC 35.1 RDW 11.9 L Plt Count 198 MPV 12.3 H Neut # (Auto) 5.9 Lymph # (Auto) 1.7 [place] # (Auto) 0.6 Eos # (Auto) 0.1 Baso # (Auto) 0.0 Absolute Nucleated RBC 0.00 Nucleated RBC % 0.0 VBG pH Ionized Calcium Sodium 134 L Potassium 4.0 Chloride 98 L Carbon Dioxide 23 Anion Gap 13.0 BUN 30 H Creatinine 1.5 H Estimated GFR (MDRD) 49 L Glucose 426 H Calcium 9.3 Phosphorus 2.8 Magnesium 2.3 Total Bilirubin 1.1 H AST 24 ALT 21 Alkaline Phosphatase 66 Total Protein 6.7 Albumin 4.1 Globulin 2.6 Albumin/Globulin Ratio 1.6 Lipase 28 TSH 8.34 H Urine Color Urine Clarity Urine pH Ur Specific [place] Urine Protein Urine Glucose (UA) Urine Ketones Urine Occult Blood Urine Nitrite Urine Bilirubin Urine Urobilinogen Ur Leukocyte Esterase Ur Microscopic Review Ethyl Alcohol < 5.0 12/14/18 12/14/18 00:02 00:34 WBC RBC Hgb Hct MCV MCH MCHC RDW Plt Count MPV Neut # (Auto) Lymph # (Auto) [place] # (Auto) Eos # (Auto) Baso # (Auto) Absolute Nucleated RBC Nucleated RBC % VBG pH 7.390 Ionized Calcium 1.14 L Sodium Potassium Chloride Carbon Dioxide Anion Gap BUN Creatinine Estimated GFR (MDRD) Glucose Calcium Phosphorus Magnesium Total Bilirubin AST ALT Alkaline Phosphatase Total Protein Albumin Globulin Albumin/Globulin Ratio Lipase TSH Urine Color YELLOW Urine Clarity CLEAR Urine pH 6.0 Ur Specific [place] <=1.005 Urine Protein NEGATIVE Urine Glucose (UA) >=1000 H Urine Ketones NEGATIVE Urine Occult Blood NEGATIVE Urine Nitrite NEGATIVE Urine Bilirubin NEGATIVE Urine Urobilinogen 0.2 (NORMAL) Ur Leukocyte Esterase NEGATIVE Ur Microscopic Review NOT INDICATED Ethyl Alcohol PD MEDICAL DECISION MAKING - ED course Complexity details: considered differential (Electrolyte disturbance, hypocalcemia, thyroid disturbance, hypokalemia, hypomagnesemia, dehydration) ED course: Patient presents with painful muscle cramping that began suddenly. On exam he appears to have some tightness in his hands, however I am able to passively range his fingers and wrist and arm without any difficulty. His EKG shows no s igns of severe electrolye derangements or ischemia. Patient was given a liter of fluids and a milligram Ativan IV, and he had relief of his muscle spasms. His labs show a very mild hypocalcemia with an ionized calcium just 0.01 under normal, it is unlikely be a cause of his spasming. He also has mild hyponatremia and hypochloremia, and elevated creatinine at 1.5. He does appear dehydrated and is poorly controlled diabetes is likely the cause of this, his glucose was above 400. He is given 2 L of fluids and afterwards he is feeling well, his vital signs are within normal limits and he has no further spasming. I discussed that he needs to control his blood sugar, And follow with his primary care provider closely. Patient's is going to call tomorrow to get an appointment. He reportedly does not log his blood sugars, I have high suspicion that his hyperglycemia is leading to dehydration which in turn causes cramping. I discussed return precautions with the patient his , recommended avoiding drug use, answered their questions, and he was discharged home in her care. I did inform him that his TSH was high today, he takes levothyroxine and will follow-up on this with his PCP. Departure - Departure Disposition: 01 Home, Self Care Clinical Impression: Dehydration, Cramping of hands, Hyperglycemia Condition: Good Instructions: ED Hyperglycemia Diabetic Follow-Up: Suki Merrill ARNP [Primary Care Provider] - Within 1 week (For follow up on cramping and high blood sugar) Comments: You were seen today for cramping in your hands and right foot. Your labs show that you were dehydrated, your creatinine (kidney function test) was 1.5, and your blood sugar was quite high. Please check your blood sugar frequently and correct it according to your diabetes treatment plan. Also follow-up with your primary care provider. If you develop new or worsening pain, persistent vomiting, or any other concerning symptoms return to the emergency department. Your TSH (a thyroid test) was high (8.34), please discuss this with your PCP.
[2018-12-13 23:47] LABS: BASOPHILS % (AUTO) 0.5 %; EOSINOPHILS # (AUTO) 0.1 10^3/uL (0.0-0.7); EOSINOPHILS % (AUTO) 0.7 %; HGB - HEMOGLOBIN 13.8 g/dL (14.0-18.0); LYMPHOCYTES # (AUTO) 1.7 10^3/uL (1.5-3.5); MEAN CORPUSCULAR HEMOGLOBIN 30.5 pg (27.0-31.0); MEAN CORPUSCULAR HGB CONC 35.1 g/dL (32.0-36.0); MEAN CORPUSCULAR VOLUME 86.8 fL (80.0-94.0); MEAN PLATELET VOLUME 12.3 fL (7.4-11.4); MONOCYTES # (AUTO) 0.6 10^3/uL (0.0-1.0); MONOCYTES % (AUTO) 7.2 %; NEUTROPHILS # (AUTO) 5.9 10^3/uL (1.5-6.6); NEUTROPHILS % (AUTO) 71.2 %; PLT - PLATELET COUNT 198 10^3/uL (130-450); RED BLOOD COUNT 4.53 10^6/uL (4.70-6.10); RED CELL DISTRIBUTION WIDTH 11.9 % (12.0-15.0); WHITE BLOOD COUNT 8.3 x10^3/uL (4.8-10.8)
[2018-12-14] LABS: ALBUMIN 4.1 g/dL (3.2-5.5); ALBUMIN/GLOBULIN RATIO 1.6 (1.0-2.2); ALKALINE PHOSPHATASE 66 IU/L (42-121); ALT ALANINE AMINOTRANSFERASE 21 IU/L (10-60); AST ASPARTATE AMINOTRANSFERASE 24 IU/L (10-42); BILIRUBIN,TOTAL 1.1 mg/dL (0.2-1.0); BUN - BLOOD UREA NITROGEN 30 mg/dL (6-20); CALCIUM 9.3 mg/dL (8.5-10.3); CARBON DIOXIDE - CO2 23 mmol/L (21-32); CHLORIDE 98 mmol/L (101-111); CREATININE 1.5 mg/dL (0.6-1.2); GFR - MDRD 49 (>89); GLUCOSE 426 mg/dL (70-100); LIPASE 28 U/L (22-51); MAGNESIUM 2.3 mg/dL (1.7-2.8); PHOSPHORUS 2.8 mg/dL (2.5-4.6); SODIUM 134 mmol/L (135-145); TOTAL PROTEIN 6.7 g/dL (6.7-8.2)
[2018-12-14 00:09] LABS: VBG PH 7.39 (7.31-7.41)
[2018-12-14] MEDS ORDERED: SODIUM CHLORIDE 0.9% 1,000 ML IV ONE (00:11)
[2018-12-14 00:37] LABS: BILIRUBIN,URINE NEGATIVE (NEGATIVE); CLARITY,URINE CLEAR (CLEAR); GLUCOSE, URINE (UA) >=1000 mg/dL (NEGATIVE); KETONES,URINE (UA) NEGATIVE (NEGATIVE); LEUKOCYTE ESTERASE, URINE NEGATIVE (NEGATIVE); NITRITE,URINE NEGATIVE (NEGATIVE); OCCULT BLOOD,URINE NEGATIVE (NEGATIVE); PROTEIN,URINE NEGATIVE (NEGATIVE); UROBILINOGEN,URINE 0.2 (NORMAL) E.U./dL (NORMAL)
[2018-12-14 01:08] VITALS: BP 114/68
== END 2018-12-14 01:30 | disposition home or self-care (01) ==
LOC: EDUNIT# → ED 23:19
DX: E86.0 Dehydration (principal); E10.65 Type 1 diabetes mellitus with hyperglycemia; M62.838 Other muscle spasm; M79.642 Pain in left hand; M79.641 Pain in right hand; M79.671 Pain in right foot; E83.51 Hypocalcemia; E87.1 Hypo-osmolality and hyponatremia; E87.8 Other disorders of electrolyte and fluid balance, not elsewhere classified; I10 Essential (primary) hypertension; I69.392 Facial weakness following cerebral infarction
CPT/HCPCS: 36415; 81003; 82330; 83690; 83735; 84100; 84439; 93005; 96361; 96374; 99284; J2060; 80053; 80320; 81001; 84443; 85025

== ENCOUNTER 2018-12-17 09:25 | Outpatient (CLI) | payer MEDICARE, MEDICAID ==
[2018-12-17 12:19] LABS: ALBUMIN 3.8 g/dL (3.2-5.5); ALBUMIN/GLOBULIN RATIO 1.5 (1.0-2.2); ALKALINE PHOSPHATASE 49 IU/L (42-121); ALT ALANINE AMINOTRANSFERASE 23 IU/L (10-60); AST ASPARTATE AMINOTRANSFERASE 23 IU/L (10-42); BILIRUBIN,TOTAL 0.6 mg/dL (0.2-1.0); BUN - BLOOD UREA NITROGEN 17 mg/dL (6-20); CALCIUM 8.8 mg/dL (8.5-10.3); CARBON DIOXIDE - CO2 29 mmol/L (21-32); CHLORIDE 104 mmol/L (101-111); CHOL/HDL RATIO 2.7 (<5.0); CHOLESTEROL 122 mg/dL; CREATININE 0.9 mg/dL (0.6-1.2); GFR - MDRD 88 (>89); GLUCOSE 125 mg/dL (70-100); HDL CHOLESTEROL 45 mg/dL; SODIUM 139 mmol/L (135-145); TOTAL PROTEIN 6.3 g/dL (6.7-8.2)
[2018-12-17 12:37] LABS: HB2 TOTAL 14.4 g/dL; HEMOGLOBIN A1C 1.59 g/dL; HEMOGLOBIN A1C % 12.3 % (4.6-6.2)
[2018-12-17 13:00] LABS: BASOPHILS % (AUTO) 0.6 %; EOSINOPHILS # (AUTO) 0.1 10^3/uL (0.0-0.7); EOSINOPHILS % (AUTO) 1.2 %; HGB - HEMOGLOBIN 13.9 g/dL (14.0-18.0); LYMPHOCYTES # (AUTO) 1.2 10^3/uL (1.5-3.5); LYMPHOCYTES % (AUTO) 23.3 %; MEAN CORPUSCULAR HEMOGLOBIN 30.8 pg (27.0-31.0); MEAN CORPUSCULAR HGB CONC 33.9 g/dL (32.0-36.0); MEAN CORPUSCULAR VOLUME 90.7 fL (80.0-94.0); MEAN PLATELET VOLUME 12.3 fL (7.4-11.4); MONOCYTES # (AUTO) 0.5 10^3/uL (0.0-1.0); MONOCYTES % (AUTO) 9.4 %; NEUTROPHILS # (AUTO) 3.3 10^3/uL (1.5-6.6); NEUTROPHILS % (AUTO) 65.1 %; PLT - PLATELET COUNT 207 10^3/uL (130-450); RED BLOOD COUNT 4.52 10^6/uL (4.70-6.10); RED CELL DISTRIBUTION WIDTH 12.4 % (12.0-15.0); WHITE BLOOD COUNT 5.1 x10^3/uL (4.8-10.8)
== END 2018-12-17 23:59 | disposition home or self-care (01) ==
LOC: LAB.N 09:25
PROVIDERS: ATTEND Nurse Practitioner Gerontology
DX: E86.0 Dehydration (principal); E10.65 Type 1 diabetes mellitus with hyperglycemia; E03.9 Hypothyroidism, unspecified
CPT/HCPCS: 36415; 80053; 80061; 83036; 83721; 84443; 85025

== ENCOUNTER 2019-01-20 12:37 | Emergency (ER) | payer MEDICARE, MEDICAID ==
[2019-01-20] MEDS ORDERED: ASPIRIN CHEW 81 MG TABLET PO STA (12:52)
[2019-01-20] MEDS ORDERED: NITROGLYCERIN SL 0.4 MG TABLET SL STA ×2 (12:56→13:44)
--- NOTE | 2019-01-20 13:01 | ED Physician Documentation ---
PD HPI CHEST PAIN - Stated complaint Stated Complaint: CP/L SHOULDER PX - Chief complaint Chief Complaint: Cardiac - History obtained from History obtained from: Patient - History of Present Illness Timing - onset: Today (53-year-old gentleman with type 1 diabetes, hyperlipidemia, history of stroke, and a family history of coronary disease, most closely a father who started having coronary issues at the age of 33 the. He felt nauseous this morning and then around 10 AM while doing light work developed substernal chest pain radiating to the left scapula, right jaw, and left arm associated with shortness of breath on exertion.) Review of Systems Ten Systems: 10 systems reviewed and negative Constitutional: denies: Fever, Chills Cardiac: denies: Palpitations, Pedal edema, Calf pain Respiratory: denies: Cough GI: reports: Nausea. denies: Abdominal Pain PD PAST MEDICAL HISTORY - Past Medical History Cardiovascular: Hypertension, High cholesterol, Other Respiratory: Pneumonia Neuro: CVA, Other Endocrine/Autoimmune: Type 1 diabetes GI: GERD, Ulcers, Colon polyps : None HEENT: None Psych: None Musculoskeletal: Chronic back pain Derm: None - Past Surgical History Past Surgical History: Yes General: Colonoscopy Ortho: Carpal Tunnel surgery HEENT: Other - Present Medications Home Medications: Ambulatory Orders Medication Instructions Recorded Confirmed Levothyroxine [Synthroid] 125 mcg PO QDAC 09/02/13 07/03/18 Atorvastatin Calcium [Lipitor] 40 mg PO QPM 05/03/14 07/03/18 Trazodone HCl 100 mg PO QPM 07/21/14 07/03/18 Donepezil [Aricept] 5 mg PO DAILY 08/08/15 07/03/18 Sertraline HCl 25 mg PO DAILY 11/09/15 07/03/18 Insulin Lispro [Humalog] 15 - 20 units SQ TIDWM 01/29/16 07/03/18 Mirtazapine 45 mg PO QPM 07/02/18 07/02/18 Tamsulosin [Flomax] 0.4 mg PO 1730 07/02/18 07/02/18 Insulin NPH Human [NovoLIN N] 20 unit SUBQ BID 07/03/18 07/03/18 Lidocaine Patch 5% [Lidoderm Patch] 2 patch TOP HS #30 patch 07/03/18 [place]-3 Fatty Acids/Fish Oil 1,000 mg PO DAILY 07/03/18 07/03/18 [[place]-3 Fish Oil 1,000 mg Sfgl] hydrOXYzine pamoate [Hydroxyzine 150 mg PO QPM 07/03/18 07/03/18 Pamoate] - Allergies Allergies/Adverse Reactions: Allergies Allergy/AdvReac Type Severity Reaction Status Date / Time omeprazole Allergy Intermediate Nausea Verified 01/20/19 12:44 codeine AdvReac Severe Dizziness Verified 01/20/19 12:44 doxycycline AdvReac Intermediate Dizziness Verified 01/20/19 12:44 insulin aspart [From Novolog] AdvReac Edema Verified 01/20/19 12:44 insulin regular AdvReac Unknown Verified 01/20/19 12:44 [From Novolin R Regular U-100 Insuln] - Social History Does the pt smoke?: No Smoking Status: Never smoker Does the pt drink ETOH?: No Does the pt have substance abuse?: No - Immunizations Immunizations are current?: Yes - POLST Patient has POLST: No PD ED PE NORMAL - Vitals Vital signs reviewed: Yes - General General: Alert and oriented X 3, No acute distress - HEENT HEENT: PERRL, EOMI - Neck Neck: Supple, no meningeal sign, No bony TTP - Cardiac Cardiac: RRR, No murmur - Respiratory Respiratory: No respiratory distress, Clear bilaterally - Abdomen Abdomen: Non tender - Back Back: No CVA TTP, No spinal TTP - Derm Derm: Normal color, Warm and dry - Extremities Extremities: No edema, No calf tenderness / cord - Neuro Neuro: Alert and oriented X 3, Normal speech Results - Vitals Vitals: Vital Signs - 24 hr 01/20/19 01/20/19 01/20/19 12:44 13:38 15:03 Temperature 36.7 C Heart Rate 58 L 62 44 L Respiratory 16 15 17 Rate Blood Pressure 147/84 H 145/81 H 142/74 H O2 Saturation 96 97 97 01/20/19 15:55 Temperature 36.6 C Heart Rate 53 L Respiratory 16 Rate Blood Pressure 154/81 H O2 Saturation 97 Oxygen O2 Source [] Room air O2 Source Room air - EKG (time done) 1249 Rate: Rate (enter#) Rhythm: NSR [place]: Normal Intervals: Normal [place] QRS: Normal Ischemia: Non specific changes (Very very very mild anterior ST elevation which is unchanged from EKG from June of this year. No reciprocal changes.). No: ST elevation c/w ischemia, ST depression - Labs Labs: Laboratory Tests 01/20/19 01/20/19 01/20/19 13:00 13:00 13:00 WBC 6.1 RBC 4.57 L Hgb 14.1 Hct 41.5 L MCV 90.8 MCH 30.9 MCHC 34.0 RDW 12.2 Plt Count 211 MPV 12.1 H Neut # (Auto) 4.4 Lymph # (Auto) 1.2 L [place] # (Auto) 0.5 Eos # (Auto) 0.0 Baso # (Auto) 0.0 Absolute Nucleated RBC 0.00 Nucleated RBC % 0.0 Sodium 137 Potassium 4.8 Chloride 101 Carbon Dioxide 28 Anion Gap 8.0 BUN 17 Creatinine 1.0 Estimated GFR (MDRD) 78 L Glucose 300 H POC Whole Bld Glucose Calcium 9.1 Total Bilirubin 0.6 AST 17 ALT 20 Alkaline Phosphatase 52 Troponin I High Sens < 2.3 L Total Protein 6.5 L Albumin 4.0 Globulin 2.5 Albumin/Globulin Ratio 1.6 Lipase 32 01/20/19 01/20/19 15:00 15:12 WBC RBC Hgb Hct MCV MCH MCHC RDW Plt Count MPV Neut # (Auto) Lymph # (Auto) [place] # (Auto) Eos # (Auto) Baso # (Auto) Absolute Nucleated RBC Nucleated RBC % Sodium Potassium Chloride Carbon Dioxide Anion Gap BUN Creatinine Estimated GFR (MDRD) Glucose POC Whole Bld Glucose 231 H Calcium Total Bilirubin AST ALT Alkaline Phosphatase Troponin I High Sens < 2.3 L Total Protein Albumin Globulin Albumin/Globulin Ratio Lipase - Rads (name of study) CT coronaries Radiology: Final report received (Calcium score of 321, no coronary stenosis.) PD MEDICAL DECISION MAKING - ED course ED course: This is a 53-year-old gentleman who presents with concerning chest pain, he has multiple risk factors including long-standing diabetes, family history. Troponins were done in the department and remained negative and undetectable whi ch is reassuring, even more reassuring with a negative CT coronary angiogram and his pain abated while in the dept. Departure - Departure Disposition: 01 Home, Self Care Clinical Impression: FHx: RI in first degree male relative Chest pain Qualifiers: Chest pain type: precordial pain Qualified Code(s): R07.2 - Precordial pain Uncontrolled type I diabetes mellitus Qualifiers: Glycemic state: with hyperglycemia Qualified Code(s): E10.65 - Type 1 diabetes mellitus with hyperglycemia Condition: Stable Record reviewed to determine appropriate education?: Yes Instructions: ED Chest Pain NonCardiac Comments: Your CT coronary angiogram was negative, as well as 2- troponins. This all but rules out coronary disease and angina as a cause of your pain today. The remainder of your work-up was negative. Return for new worsening symptoms. Follow-up with your primary care physician, next available appointment. Discharge Date/Time: 01/20/19 15:53
[2019-01-20 13:05] LABS: BASOPHILS % (AUTO) 0.5 %; EOSINOPHILS % (AUTO) 0.7 %; HGB - HEMOGLOBIN 14.1 g/dL (14.0-18.0); LYMPHOCYTES # (AUTO) 1.2 10^3/uL (1.5-3.5); MEAN CORPUSCULAR HEMOGLOBIN 30.9 pg (27.0-31.0); MEAN CORPUSCULAR VOLUME 90.8 fL (80.0-94.0); MEAN PLATELET VOLUME 12.1 fL (7.4-11.4); MONOCYTES # (AUTO) 0.5 10^3/uL (0.0-1.0); MONOCYTES % (AUTO) 7.4 %; NEUTROPHILS # (AUTO) 4.4 10^3/uL (1.5-6.6); NEUTROPHILS % (AUTO) 71.9 %; PLT - PLATELET COUNT 211 10^3/uL (130-450); RED BLOOD COUNT 4.57 10^6/uL (4.70-6.10); RED CELL DISTRIBUTION WIDTH 12.2 % (12.0-15.0); WHITE BLOOD COUNT 6.1 x10^3/uL (4.8-10.8)
[2019-01-20 13:27] LABS: ALBUMIN/GLOBULIN RATIO 1.6 (1.0-2.2); BILIRUBIN,TOTAL 0.6 mg/dL (0.2-1.0); CALCIUM 9.1 mg/dL (8.5-10.3); TOTAL PROTEIN 6.5 g/dL (6.7-8.2)
--- NOTE | 2019-01-20 13:27 | XRAY Report ---
Reason: chest pain Procedure Date: 01/20/2019 Accession Number: [id number] / [id number] Procedure: XR - Chest 1 View X-Ray CPT Code: 21329 Final Report FULL RESULT: EXAM: CHEST RADIOGRAPHY EXAM DATE: 01/20/2019 01:05 PM. CLINICAL HISTORY: Chest pain. COMPARISON: CHEST 2 VIEW 07/02/2018 2:17 PM. TECHNIQUE: 1 view. FINDINGS: Lungs/Pleura: No focal opacities evident. No pleural effusion. No pneumothorax. Mediastinum: Within exam limitations, the cardiomediastinal contour is normal. Other: None. IMPRESSION: No acute cardiopulmonary abnormality. RADIA
[2019-01-20] MEDS ORDERED: MORPHINE 2 MG/ML CARPUJECT IVP STA (13:44)
[2019-01-20] MEDS ORDERED: METOPROLOL TARTRATE 50 MG TABLET PO STA (13:45)
[2019-01-20] MEDS ORDERED: ONDANSETRON 4 MG/2 ML VIAL IVP STA (13:57)
[2019-01-20] MEDS ORDERED: ONDANSETRON 4 MG/2 ML VIAL ONE (14:09)
[2019-01-20] MEDS ORDERED: IOPAMIDOL-370 100 ML VIAL ONE (14:27)
[2019-01-20] MEDS ORDERED: METOPROLOL 5 MG/5 ML VIAL IVP ONE (14:37)
[2019-01-20] MEDS ORDERED: IOPAMIDOL-370 100 ML VIAL IVP ONE (15:32)
--- NOTE | 2019-01-20 15:39 | CT Report ---
Reason: CHest pain Procedure Date: 01/20/2019 Accession Number: [id number] / [id number] Procedure: CT - ANGIO HEART - CCTA W/WO CPT Code: 89438 Final Report FULL RESULT: EXAM: CORONARY ARTERY CTA EXAM DATE: 01/20/2019 02:36 PM. CLINICAL HISTORY: CHest pain. COMPARISON: None. TECHNIQUE: Axial sections were obtained through the heart following the intravenous administration of 92ML ISOVUE 370. 3D reconstructions were obtained. In accordance with CT protocol optimization, one or more of the following dose reduction techniques were utilized for this exam: automated exposure control, adjustment of mA and/or KV based on patient size, or use of iterative reconstructive technique. FINDINGS: CALCIUM SCORE: The LMA equals 0. The LAD equals 135.35. The left circumflex equals 93.93. The RCA equals 91.9. The total calcium score is 321.18. The patient is in the 84th percentile rank. DOMINANT ARTERY: RCA LEFT MAIN: Patent LEFT ANTERIOR DESCENDING: Patent LEFT CIRCUMFLEX: Patent RIGHT CORONARY ARTERY: Patent THORACIC AORTA: The sinuses of Valsalva measure 3.7 cm. The sinotubular junction measures 2.7 cm. The proximal ascending thoracic aorta measures 2.9 cm. LEFT ATRIAL APPENDAGE: No filling defect. PULMONARY ARTERIES: No central pulmonary embolus. CHEST/UPPER ABDOMEN: Unremarkable. IMPRESSION: 1. Calcium score of 321.18. 2. No coronary artery stenosis. RADIA
[2019-01-20 15:55] VITALS: BP 154/81
== END 2019-01-20 15:53 | disposition home or self-care (01) ==
LOC: ED 12:37
DX: R07.2 Precordial pain (principal); Z82.49 Family history of ischemic heart disease and other diseases of the circulatory system; E10.65 Type 1 diabetes mellitus with hyperglycemia; I10 Essential (primary) hypertension; E78.5 Hyperlipidemia, unspecified; Z86.73 Personal history of transient ischemic attack (TIA), and cerebral infarction without residual deficits
CPT/HCPCS: 36415; 71045; 75572; 76377; 80053; 83690; 84484; 85025; 93005; 96374; 96375; 99283; 99284; A9270; Q9967

== ENCOUNTER 2019-03-19 14:25 | Observation (INO) | payer MEDICARE, MEDICAID ==
[2019-03-19 15:12] LABS: BASOPHILS # (AUTO) 0.1 10^3/uL (0.0-0.1); BASOPHILS % (AUTO) 0.8 %; EOSINOPHILS # (AUTO) 0.1 10^3/uL (0.0-0.7); EOSINOPHILS % (AUTO) 0.9 %; HGB - HEMOGLOBIN 14.9 g/dL (14.0-18.0); LYMPHOCYTES # (AUTO) 1.2 10^3/uL (1.5-3.5); LYMPHOCYTES % (AUTO) 17.8 %; MEAN CORPUSCULAR HEMOGLOBIN 30.5 pg (27.0-31.0); MEAN CORPUSCULAR VOLUME 89.6 fL (80.0-94.0); MONOCYTES # (AUTO) 0.6 10^3/uL (0.0-1.0); MONOCYTES % (AUTO) 8.5 %; NEUTROPHILS # (AUTO) 4.6 10^3/uL (1.5-6.6); NEUTROPHILS % (AUTO) 71.7 %; PLT - PLATELET COUNT 212 10^3/uL (130-450); RED BLOOD COUNT 4.89 10^6/uL (4.70-6.10); WHITE BLOOD COUNT 6.5 x10^3/uL (4.8-10.8)
[2019-03-19 15:14] LABS: VBG BASE EXCESS 0.3 mmol/L (-2 - +2); VBG PCO2 43.7 mmHg (41-51); VBG PH 7.386 (7.31-7.41); VBG PO2 36.2 mmHg (25-47)
[2019-03-19 15:29] LABS: ALBUMIN 3.9 g/dL (3.2-5.5); ALBUMIN/GLOBULIN RATIO 1.5 (1.0-2.2); ALKALINE PHOSPHATASE 58 IU/L (42-121); ALT ALANINE AMINOTRANSFERASE 22 IU/L (10-60); AST ASPARTATE AMINOTRANSFERASE 17 IU/L (10-42); BILIRUBIN,TOTAL 0.6 mg/dL (0.2-1.0); BUN - BLOOD UREA NITROGEN 21 mg/dL (6-20); CALCIUM 9.1 mg/dL (8.5-10.3); CARBON DIOXIDE - CO2 29 mmol/L (21-32); CHLORIDE 101 mmol/L (101-111); GFR - MDRD 78 (>89); GLUCOSE 230 mg/dL (70-100); LIPASE 40 U/L (22-51); SODIUM 136 mmol/L (135-145); TOTAL PROTEIN 6.5 g/dL (6.7-8.2)
--- NOTE | 2019-03-19 15:29 | ED Physician Documentation ---
History of Present Illness - Stated complaint Stated Complaint: DIZZINESS/NAUSEA - Chief complaint Chief Complaint: Neuro - History obtained from History obtained from: Patient - History of Present Illness Timing: Today, How many days ago Pain level max: 0 Pain level now: 0 - Additonal information Additional information: 53-year-old male states that he awoke approximately 12 hours ago, tried to go to the bathroom and was having difficulty walking. States was falling onto the moore. He went back to bed, awoke this morning and felt no better. Finally decided to come in for evaluation. Worse with walking. Better with lying still. Does not feel like things are spinning. No vertigo symptoms. Has chron ic tingling in his lower extremities from an sure. No new neurological deficits. Review of Systems Ten Systems: 10 systems reviewed and negative Constitutional: denies: Fever, Chills Throat: denies: Sore throat Cardiac: denies: Chest pain / pressure Respiratory: denies: Cough GI: denies: Vomiting, Diarrhea Skin: denies: Rash Musculoskeletal: denies: Neck pain, Back pain Neurologic: denies: Headache PD PAST MEDICAL HISTORY - Past Medical History Cardiovascular: Hypertension, High cholesterol, Other Respiratory: Pneumonia Neuro: CVA, Other Endocrine/Autoimmune: Type 1 diabetes GI: GERD, Ulcers, Colon polyps : None HEENT: None Psych: None Musculoskeletal: Chronic back pain Derm: None - Past Surgical History Past Surgical History: Yes General: Colonoscopy Ortho: Carpal Tunnel surgery HEENT: Other - Present Medications Home Medications: Ambulatory Orders Medication Instructions Recorded Confirmed Levothyroxine [Synthroid] 125 mcg PO QDAC 09/02/13 07/03/18 Atorvastatin Calcium [Lipitor] 40 mg PO QPM 05/03/14 07/03/18 Trazodone HCl 100 mg PO QPM 07/21/14 07/03/18 Donepezil [Aricept] 5 mg PO DAILY 08/08/15 07/03/18 Sertraline HCl 25 mg PO DAILY 11/09/15 07/03/18 Insulin Lispro [Humalog] 15 - 20 units SQ TIDWM 01/29/16 07/03/18 Mirtazapine 45 mg PO QPM 07/02/18 07/02/18 Tamsulosin [Flomax] 0.4 mg PO 1730 07/02/18 07/02/18 Insulin NPH Human [NovoLIN N] 20 unit SUBQ BID 07/03/18 07/03/18 Lidocaine Patch 5% [Lidoderm Patch] 2 patch TOP HS #30 patch 07/03/18 [place]-3 Fatty Acids/Fish Oil 1,000 mg PO DAILY 07/03/18 07/03/18 [Mccomb-3 Fish Oil 1,000 mg Sfgl] hydrOXYzine pamoate [Hydroxyzine 150 mg PO QPM 07/03/18 07/03/18 Pamoate] - Allergies Allergies/Adverse Reactions: Allergies Allergy/AdvReac Type Severity Reaction Status Date / Time omeprazole Allergy Intermediate Nausea Verified 03/19/19 14:38 codeine AdvReac Severe Dizziness Verified 03/19/19 14:38 doxycycline AdvReac Intermediate Dizziness Verified 03/19/19 14:38 insulin aspart [From Novolog] AdvReac Edema Verified 03/19/19 14:38 insulin regular AdvReac Unknown Verified 03/19/19 14:38 [From Novolin R Regular U-100 Insuln] - Social History Does the pt smoke?: No Smoking Status: Never smoker Does the pt drink ETOH?: No Does the pt have substance abuse?: No - Immunizations Immunizations are current?: Yes - POLST Patient has POLST: No PD ED PE NORMAL - Vitals Vital signs reviewed: Yes - General General: Alert and oriented X 3, No acute distress - HEENT HEENT: PERRL, Moist mucous membranes - Neck Neck: Supple, no meningeal sign - Cardiac Cardiac: RRR, Strong equal pulses - Respiratory Respiratory: No respiratory distress, Clear bilaterally - Abdomen Abdomen: Soft, Non tender, Non distended - Back Back: No spinal TTP - Derm Derm: Warm and dry, No rash - Extremities Extremities: No edema, No calf tenderness / cord - Neuro Neuro: Alert and oriented X 3, infant toddler lead teacher 2-12 intact, No motor deficit, No sensory deficit, Normal speech, Other (Very unsteady gait. Tends to list to the right. normal finger to nose on the R. difficulty with this with the L hand) Eye Opening: Spontaneous Motor: Obeys Commands Verbal: Oriented GCS Score: 15 - Psych Psych: Normal mood, Normal affect Results - Vitals Vitals: Vital Signs - 24 hr 03/19/19 03/19/19 03/19/19 14:35 15:49 17:22 Temperature 36.7 C Heart Rate 67 74 67 Respiratory 16 18 18 Rate Blood Pressure 115/80 128/85 H 126/81 H O2 Saturation 98 97 97 03/19/19 19:26 Temperature Heart Rate 71 Respiratory 15 Rate Blood Pressure 141/79 H O2 Saturation 98 Oxygen O2 Source [Without Activity] Room air O2 Source Room air - EKG (time done) 1516 Rate: Rate (enter#) (69) Rhythm: NSR Hazel: Normal Intervals: Normal HI QRS: Normal Ischemia: Normal ST segments - Labs Labs: Laboratory Tests 03/19/19 03/19/19 03/19/19 14:40 15:07 15:07 WBC 6.5 RBC 4.89 Hgb 14.9 Hct 43.8 MCV 89.6 MCH 30.5 MCHC 34.0 RDW 12.0 Plt Count 212 MPV 12.0 H Neut # (Auto) 4.6 Lymph # (Auto) 1.2 L Screven # (Auto) 0.6 Eos # (Auto) 0.1 Baso # (Auto) 0.1 Absolute Nucleated RBC 0.00 Nucleated RBC % 0.0 VBG pH VBG pCO2 VBG pO2 VBG HCO3 VBG Total CO2 VBG O2 Saturation VBG Base Excess Sodium 136 Potassium 4.5 Chloride 101 Carbon Dioxide 29 Anion Gap 6.0 BUN 21 H Creatinine 1.0 Estimated GFR (MDRD) 78 L Glucose 230 H POC Whole Bld Glucose 185 H Calcium 9.1 Total Bilirubin 0.6 AST 17 ALT 22 Alkaline Phosphatase 58 Troponin I High Sens Total Protein 6.5 L Albumin 3.9 Globulin 2.6 Albumin/Globulin Ratio 1.5 Lipase 40 Urine Color Urine Clarity Urine pH Ur Specific Raymond Urine Protein Urine Glucose (UA) Urine Ketones Urine Occult Blood Urine Nitrite Urine Bilirubin Urine Urobilinogen Ur Leukocyte Esterase Ur Microscopic Review Urine Culture Comments Serum Ketones NEGATIVE 03/19/19 03/19/19 03/19/19 15:07 15:07 19:12 WBC RBC Hgb Hct MCV MCH MCHC RDW Plt Count MPV Neut # (Auto) Lymph # (Auto) Screven # (Auto) Eos # (Auto) Baso # (Auto) Absolute Nucleated RBC Nucleated RBC % VBG pH 7.386 VBG pCO2 43.7 VBG pO2 36.2 VBG HCO3 25.6 VBG Total CO2 27.0 VBG O2 Saturation 71.5 VBG Base Excess 0.3 Sodium Potassium Chloride Carbon Dioxide Anion Gap BUN Creatinine Estimated GFR (MDRD) Glucose POC Whole Bld Glucose Calcium Total Bilirubin AST ALT Alkaline Phosphatase Troponin I High Sens < 2.3 L Total Protein Albumin Globulin Albumin/Globulin Ratio Lipase Urine Color YELLOW Urine Clarity CLEAR Urine pH 7.0 Ur Specific Raymond 1.015 Urine Protein NEGATIVE Urine Glucose (UA) 250 H Urine Ketones NEGATIVE Urine Occult Blood NEGATIVE Urine Nitrite NEGATIVE Urine Bilirubin NEGATIVE Urine Urobilinogen 0.2 (NORMAL) Ur Leukocyte Esterase NEGATIVE Ur Microscopic Review NOT INDICATED Urine Culture Comments NOT INDICATED Serum Ketones - Rads (name of study) head CT Radiology: Prelim report reviewed, EMP read contemporaneously, See rad report (No acute abnormality) angio head Radiology: Prelim report reviewed, EMP read contemporaneously, See rad report angio neck Radiology: Prelim report reviewed, EMP read contemporaneously, See rad report PD MEDICAL DECISION MAKING - ED course Complexity details: reviewed results, re-evaluated patient, considered differential, d/w patient, d/w [facility] consultant ED course: 53-year-old male with significant ataxia. Concerning for cerebellar infarct. Has a history of lacunar infarct in the past. No acute findings on head CT. No acute findings on angio of the head and neck. MRI is not available tonight, we will place him in observation for serial neurological exams and MRI in the morning. Discussed the case with Dr. Howard, hospitalist who accepts This document was made in part using voice recognition software. While efforts are made to proofread this document, sound alike and grammatical errors may occur. Departure - Departure Disposition: ED Place in Observation Clinical Impression: Ataxia Condition: Stable Discharge Date/Time: 03/19/19 21:23 NIHSS - Time Time: 15:50 - Level of Consciousness Level of consciousness: (0) Alert, Keenly responsive LOC Questions: (0) Answers both Q's correct LOC Commands: (0) Performs both correctly - Gaze Best Gaze: (0) Normal - Visual Visual: (0) No loss - Facial Palsy Facial Palsy: (0) Normal, symmetrical movement - Motor Arms (both separate) Motor Arm (right): (0) No drift Motor Arm (left): (0) No drift - Motor Legs (both separate) Motor Leg (right): (0) No drift Motor Leg (left): (0) No drift - Limb Ataxia Limb Ataxia: (2) Present in 2 limbs - Sensory Sensory: (0) Normal - Best Language Best Language: (0) No aphasia - Dysarthria Dysarthria: (0) Normal - Extinction and Inattention (formally neg Extinction and inattention: (0) No abnormality - Total Score/Results Total Score/Result: 2
[2019-03-19 15:30] LABS: KETONES, SERUM (ACETEST) NEGATIVE (NEGATIVE)
[2019-03-19] MEDS ORDERED: IOVERSOL 320 100 ML VIAL IVP ONE ×2 (16:13→16:59)
--- NOTE | 2019-03-19 17:52 | CT Report ---
Reason: difficulty with ambulation Procedure Date: 03/19/2019 Accession Number: [id number] / [id number] Procedure: CT - ANGIO NECK W CPT Code: Final Report FULL RESULT: EXAM: CT ANGIOGRAM HEAD AND NECK. CT SCAN HEAD WITHOUT AND WITH CONTRAST. EXAM DATE: 03/19/2019 04:56 PM. CLINICAL HISTORY: 53-year-old male. Dizziness and nausea. Difficulty with ambulation. COMPARISON: None TECHNIQUE: Routine axial helical CTA imaging was performed from the aortic arch through the [place]. Routine axial CT imaging of the head was performed prior to and following contrast administration. Reconstructions: Routine multiplanar 3D MIP reconstructions. IV contrast: 80 ML Optiray 320. NASCET Criteria are used for stenosis measurements. In accordance with CT protocol optimization, one or more of the following dose reduction techniques were utilized for this exam: automated exposure control, adjustment of mA and/or KV based on patient size, or use of iterative reconstructive technique. FINDINGS: CT SCAN HEAD: Parenchyma: No intraparenchymal hemorrhage. No evidence of mass, midline shift, or CT findings of acute infarction. Mcdaniel-white differentiation is distinct. No abnormal enhancement on the postcontrast CT head. Extra-axial Spaces: Normal for age. No subdural or epidural collections identified. Ventricles: Normal in size and position. Sinuses and Orbits: Polypoid mucosal thickening bilateral maxillary sinuses. Remaining paranasal sinuses, orbits, and mastoids show no significant abnormality. Bones: No evidence of fracture or calvarial defect. CT ANGIOGRAM EXTRACRANIAL CIRCULATION: The visualized arch is unremarkable. Great vessels are patent and unremarkable. Right Carotid: The common carotid, internal carotid, and external carotid arteries are widely patent. No dissection, significant atherosclerotic plaque, or calcification identified. Left Carotid: The common carotid, internal carotid, and external carotid arteries are widely patent. No dissection, significant atherosclerotic plaque, or calcification identified. Vertebrals: The left vertebral artery is dominant. The vertebrobasilar system shows no stenosis, dissection, aneurysm, or significant atherosclerotic disease. CT ANGIOGRAM INTRACRANIAL CIRCULATION: RIGHT: Internal Carotid artery: No evidence of dissection. No evidence of aneurysm along the intracranial ICA. Anterior Cerebral Artery: Patent without significant stenosis, aneurysm, or vascular malformation. Middle Cerebral Artery: Patent without significant stenosis, aneurysm, or vascular malformation. Posterior Cerebral Artery: Patent without significant stenosis, aneurysm, or vascular malformation. Posterior Communicating Artery: Not visualized, aplastic versus markedly hypoplastic LEFT: Internal Carotid artery: No evidence of dissection. No evidence of aneurysm along the intracranial ICA. Anterior Cerebral Artery: Patent without significant stenosis, aneurysm, or vascular malformation. Middle Cerebral Artery: Patent without significant stenosis, aneurysm, or vascular malformation. Posterior Cerebral Artery: Patent without significant stenosis, aneurysm, or vascular malformation. Posterior Communicating Artery: Not visualized, aplastic versus markedly hypoplastic CENTRAL: Anterior Communicating Artery: Patent. No aneurysm. The dural venous sinuses are patent. Other: The visualized lung apices are clear. Mild to moderate multilevel degenerative spondylosis, no acute fracture or traumatic subluxation. The visualized soft tissues of the neck demonstrate no acute abnormality. IMPRESSION: CT HEAD: 1. No evidence of acute intracranial abnormality on the noncontrast CT head. Specifically, no evidence of acute infarct, intracranial hemorrhage, mass effect, midline shift, or hydrocephalus. 2. No abnormal enhancement on the postcontrast CT head. CTA NECK: 1. No CTA evidence of hemodynamically significant stenosis, large vessel occlusion, acute dissection, aneurysm, or vascular malformation within extracranial arteries. CTA HEAD: 1. No CTA evidence of hemodynamically significant stenosis, large vessel occlusion, acute dissection, aneurysm, or vascular malformation within intracranial arteries. OTHER: 1. No other acute findings. RADIA
[2019-03-19 19:21] LABS: BILIRUBIN,URINE NEGATIVE (NEGATIVE); GLUCOSE, URINE (UA) 250 mg/dL (NEGATIVE); KETONES,URINE (UA) NEGATIVE (NEGATIVE); LEUKOCYTE ESTERASE, URINE NEGATIVE (NEGATIVE); NITRITE,URINE NEGATIVE (NEGATIVE); OCCULT BLOOD,URINE NEGATIVE (NEGATIVE); PROTEIN,URINE NEGATIVE (NEGATIVE); UROBILINOGEN,URINE 0.2 (NORMAL) E.U./dL (NORMAL)
[2019-03-19 19:25] LABS: CLARITY,URINE CLEAR (CLEAR)
[2019-03-19] MEDS ORDERED: ONDANSETRON 4 MG/2 ML VIAL IVP PRN (20:22)
[2019-03-19] MEDS ORDERED: SODIUM CHLORIDE FLUSH 0.9% 10 ML SYRINGE IVP PRN (20:22)
[2019-03-19] MEDS ORDERED: MIRTAZAPINE 15 MG TABLET PO SCH (22:47)
[2019-03-19] MEDS ORDERED: INSULIN NPH HUMAN 100 UNIT/1 ML 10 ML MDV SUBQ STA (23:02)
[2019-03-19] MEDS: HEPARIN 5,000 UNIT/ML VIAL SUBQ SCH (23:09)
--- NOTE | 2019-03-19 23:11 | HISTORY & PHYSICAL EXAMINATION ---
Chief Complaint - Chief Complaint Chief Complaint: Difficulty walking History of Present Illness - Admitted From Admitted From:: Home - History Obtained From Records Reviewed: Yes History obtained from: Patient, EMR, ER Physician - History of Present Illness HPI Comment/Other: This is a 53-year-old male with a past medical history significant for type 1 diabetes, hypothyroidism, history of CVA with residual right-sided weakness, anxiety who presents today complaining of difficulty walking. He states he woke up at about 3 AM in the morning to use the bathroom when he noticed he had difficulty balancing himself and that he was walking side to side hitting the moore. He states he do not feel like the room are spinning but he did feel a little bit nauseous. He went back to sleep and woke up 9 AM this morning and he still had similar symptoms. He discussed with his about seeking medical attention and eventually decided to but he felt it was not worth calling an ambulance for and unfortunately could not get a ride until about 3 PM. States that in the afternoon he did feel nauseous and had episode of vomiting. He does feel lightheaded and dizzy at times. He reports no focal weaknesses that are new or any numbness or tingling sensations. He states he does have some residual right-sided weakness from a stroke back in 2013 but that deficit is quite minimal. Reports having no vertigo-like symptoms and denies having these symptoms in the past. He reports a slight headache and does complain of blurry vision which is chronic for him and that he supposed be wearing glasses. He did have one episode of hypoglycemia this afternoon with a blood glucose in the 40s but he states his symptoms were also occurring when his blood glucose was 300 this morning. He does not take a baby aspirin but he does take Lipitor. He reports no prior history of syphilis or sexual transmitted infections. He reports having a rash over his body when he first or taking insulin but this lasted just a few days. Denies a history of chancre. In the emergency department, he wass found to be afebrile with temperature 36.7 C. Heart rate was 67. Blood pressure was 115/80. He was not tachypneic and saturating well on room air. His labs were unremarkable. He underwent a CTA of the head and neck which did not show any acute abnormalities or any severe stenosis. Given the patient had difficulty ambulating and was still quite ataxic, medicine was consulted for admission to rule out cerebellar stroke. History - Past Medical History Cardiovascular: reports: Hypertension, High cholesterol, Other Respiratory: reports: Pneumonia Neuro: reports: CVA, Other Endocrine/Autoimmune: reports: Type 1 diabetes GI: reports: GERD, Ulcers, Colon polyps : reports: None HEENT: reports: None Psych: reports: None Musculoskeletal: reports: Chronic back pain Derm: reports: None MRSA Hx?: No - Past Surgical History General: reports: Colonoscopy Ortho: reports: Carpal Tunnel surgery HEENT: reports: Other - Family & Social History Family History Comment/Other: States his father had a myocardial infarction in his early 30s and he also had a stroke. His maternal side has a strong history of cardiac disease and strokes as well. Living arrangement: At home Living Situation: With spouse/s.o. Social History Notes: He lives at home with his spouse. He no longer smokes but did smoke a pack and half a day for about 13 years but quit in his 30s. He rarely drinks alcohol. 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 - POLST Patient has POLST: No Meds/Allgy - Home Medications Home Medications: Ambulatory Orders Medication Instructions Recorded Confirmed Levothyroxine [Synthroid] 125 mcg PO QDAC 09/02/13 07/03/18 Atorvastatin Calcium [Lipitor] 40 mg PO QPM 05/03/14 07/03/18 Trazodone HCl 100 mg PO QPM 07/21/14 07/03/18 Donepezil [Aricept] 5 mg PO DAILY 08/08/15 07/03/18 Sertraline HCl 25 mg PO DAILY 11/09/15 07/03/18 Insulin Lispro [Humalog] 15 - 20 units SQ TIDWM 01/29/16 07/03/18 Mirtazapine 45 mg PO QPM 07/02/18 07/02/18 Tamsulosin [Flomax] 0.4 mg PO 1730 07/02/18 07/02/18 Insulin NPH Human [NovoLIN N] 20 unit SUBQ BID 07/03/18 07/03/18 Lidocaine Patch 5% [Lidoderm Patch] 2 patch TOP HS #30 patch 07/03/18 [place]-3 Fatty Acids/Fish Oil 1,000 mg PO DAILY 07/03/18 07/03/18 [[place]vord-3 Fish Oil 1,000 mg Sfgl] hydrOXYzine pamoate [Hydroxyzine 150 mg PO QPM 07/03/18 07/03/18 Pamoate] - Allergies Allergies/Adverse Reactions: Allergies Allergy/AdvReac Type Severity Reaction Status Date / Time omeprazole Allergy Intermediate Nausea Verified 03/19/19 14:38 codeine AdvReac Severe Dizziness Verified 03/19/19 14:38 doxycycline AdvReac Intermediate Dizziness Verified 03/19/19 14:38 insulin aspart [From Novolog] AdvReac Edema Verified 03/19/19 14:38 insulin regular AdvReac Unknown Verified 03/19/19 14:38 [From Novolin R Regular U-100 Insuln] Review of Systems - Constitutional Constitutional: reports: Weakness. denies: Fatigue, Fever, Chills, Poor appetite - Eyes Eyes: reports: Blurred vision - Ears, Nose & Throat Ears, Nose & Throat: denies: Vertigo - Cardiovascular Cariovascular: reports: Lightheadedness. denies: Chest pain, Edema, Syncope, Exertional dyspnea, Decr. exercise tolerance - Respiratory Respiratory: denies: Cough, SOB at rest, SOB with exertion - Gastrointestinal Gastrointestinal: denies: Abdominal pain, Nausea, Vomiting - Genitourinary Genitourinary: reports: Dysuria. denies: Frequency, Urgency - Musculoskeletal Musculoskeletal: denies: Limited range of motion - Integumentary Integumentary: denies: Rash - Neurological Neurological: reports: Focal weakness (This is not new.), Headache, Dizziness, Numbness (This is not new.), Abnormal gait, Incoordination - All Other Systems All Other Systems: reports: Reviewed and negative Prior Level of Functionality: He is independent with his ADLs and ambulates on his own. Exam - Vital Signs Reviewed Vital Signs: Yes Vital Signs: Vital Signs x48h Temp Pulse Pulse Resp BP BP Pulse Ox 03/19/19 21:05 36.7 C 62 20 139/81 H 97 03/19/19 20:56 68 14 139/91 H 99 03/19/19 19:26 71 15 141/79 H 98 03/19/19 17:22 67 18 126/81 H 97 03/19/19 15:49 74 18 128/85 H 97 - Physical Exam General Appearance: positive: No acute distress, Alert Eyes Bilateral: positive: Normal inspection, Conjunctivae nml ENT: positive: ENT inspection nml Neck: positive: Nml inspection Respiratory: positive: No respiratory distress. negative: Wheezes, Rales, Rhonchi Cardiovascular: positive: Regular rate & rhythm, No murmur. negative: Tac hycardia, Bradycardia, Systolic murmur, Diastolic murmur Abdomen: positive: Non-tender, No distention. negative: Tenderness, Guarding, Rebound Skin: positive: No rash, Warm, Dry Extremities: positive: Full ROM, No pedal edema Neurologic/Psychiatric: positive: Oriented x3, Other (Sensation is intact. He has 5 out of 5 motor strength in his left extremities. He is still quite strong is her extremities although this is slightly decreased compared to his left extremities but still at least a 4 out of 5. [id number] test is abnormal with a left upper extremity and dysmetria is noted. Also reported difficulty with [id number] test with the left lower extremity. Romberg test was positive. He also had slight pronator drift with the left upper extremity.). negative: Disoriented to person, Disoriented to place, Disoriented to time, Facial droop, Slurred/abnml speech, Depressed mood/affect Conclusion/Plan - Problem List (1) Ataxia Conclusion/Plan: His presentation and exam is concerning for a possible cerebellar stroke. Other potential etiologies of his ataxia may include infectious such as syphilis or possibly vitamin deficiency such as B12. For the time being, we will obtain an MRI of the brain in the morning and check his B12 level which was normal about one year ago. We will allow for permissive hypertension given this could be a possible stroke. We will ask PT to evaluate the patient in the morning. If his MRI is negative for a cerebellar stroke and if things persist the neuro check RP R and will considering obtaining a lumbar puncture. (2) History of CVA with residual deficit Conclusion/Plan: Reports a history of CVA with residual right-sided weakness that is minimal but obvious when compared to his left extremities. His MRI the brain back in 2014 did not show an acute stroke at that time. His CTA of the head and neck today did not show an old infarct as well. He is on Lipitor but not on aspirin. We will start him on aspirin 20 mg daily and continue Lipitor 40 mg daily. (3) Uncontrolled type I diabetes mellitus Conclusion/Plan: His last A1c was 12.3% and he is on NPH 24 units twice a day along with sliding scale. He was hypoglycemic this morning and then reports an episode of hypoglyc emic as well where he was diaphoretic and blood sugars were in the 40s. His blood glucose now greater than 200. We will place him on NPH 24 units twice a day and sliding scale while hospitalized. We will recheck another A1c. Place him on a carb controlled diet. He will need to continue to follow-up with his outpatient medical office clerk. Qualifiers: Glycemic state: with hyperglycemia Qualified Code(s): E10.65 - Type 1 diabetes mellitus with hyperglycemia (4) Hypothyroidism Conclusion/Plan: His last TSH within normal limits. We will continue his home Synthroid and recheck a TSH in the morning. (5) Anxiety Conclusion/Plan: Stable. Continue his home sertraline and Remeron. - Lab Results Lab results reviewed: Yes Fish Bones: 03/20/19 06:15 03/20/19 06:15 - Diagnostic Imaging Results Diagnostic Imaging Results: positive: Final report reviewed - EKG Results EKG Interpreted Independently: Yes EKG Findings: EKG reveals sinus rhythm without ST segment changes. Core Measures - Anticipated LOS I expect patient to be DC'd or transferred within 96 hours.: Yes - Issues Hospital Issues and Management Plan: 53-year-old male presenting with ataxia. Will admit under observation and obtain MRI of the brain. Will ask PT to evaluate the patient as well. Will obtain labs to rule out other potential etiologies of ataxia if MRI is negative. - DVT/VTE - Prophylaxis VTE/DVT Device ordered at admit?: Yes VTE/DVT Prophylaxis med ordered at admit?: Yes
[2019-03-20] MEDS ORDERED: INSULIN NPH HUMAN 300 UNIT/3 ML VIAL SUBQ ONE (00:19)
[2019-03-20] MEDS: SODIUM CHLORIDE FLUSH 0.9% 10 ML SYRINGE IVP SCH ×2 (00:28→09:02)
[2019-03-20] MEDS: ACETAMINOPHEN 325 MG TABLET PO PRN ×3 (00:54→15:36)
[2019-03-20 06:28] LABS: BASOPHILS # (AUTO) 0.1 10^3/uL (0.0-0.1); BASOPHILS % (AUTO) 0.7 %; EOSINOPHILS # (AUTO) 0.1 10^3/uL (0.0-0.7); EOSINOPHILS % (AUTO) 0.8 %; HGB - HEMOGLOBIN 14.9 g/dL (14.0-18.0); LYMPHOCYTES # (AUTO) 1.4 10^3/uL (1.5-3.5); LYMPHOCYTES % (AUTO) 19.8 %; MEAN CORPUSCULAR HEMOGLOBIN 31.4 pg (27.0-31.0); MEAN CORPUSCULAR VOLUME 89.7 fL (80.0-94.0); MONOCYTES # (AUTO) 0.5 10^3/uL (0.0-1.0); MONOCYTES % (AUTO) 6.6 %; NEUTROPHILS # (AUTO) 5.1 10^3/uL (1.5-6.6); NEUTROPHILS % (AUTO) 71.7 %; RED BLOOD COUNT 4.75 10^6/uL (4.70-6.10)
[2019-03-20 06:33] LABS: CALCIUM 8.6 mg/dL (8.5-10.3); CREATININE 0.8 mg/dL (0.6-1.2); MAGNESIUM 2.1 mg/dL (1.7-2.8); PHOSPHORUS 3.7 mg/dL (2.5-4.6)
[2019-03-20 06:41] LABS: CHOL/HDL RATIO 4.4 (<5.0); CHOLESTEROL 222 mg/dL; HDL CHOLESTEROL 50 mg/dL; LDL CHOLESTEROL,CALCULATED 157 mg/dL; LDL/HDL RATIO 3.1 (<3.6); VLDL CHOLESTEROL 15 mg/dL
[2019-03-20 06:48] LABS: HB2 TOTAL 15.2 g/dL; HEMOGLOBIN A1C 1.55 g/dL; HEMOGLOBIN A1C % 11.5 % (4.6-6.2)
[2019-03-20] MEDS ORDERED: POTASSIUM CHLORIDE 20 MEQ TABLET PO ONE (06:51)
[2019-03-20 07:00] LABS: THYROID STIMULATING HORMONE 2.4 uIU/mL (0.34-5.60); WHITE BLOOD COUNT 7.1 x10^3/uL (4.8-10.8)
[2019-03-20] MEDS ORDERED: LORazepam 1 MG TABLET PO SCH (07:00)
[2019-03-20] MEDS ORDERED: LEVOTHYROXINE 125 MCG TABLET PO SCH (07:00)
--- NOTE | 2019-03-20 08:47 | PHARMACY PROGRESS NOTE ---
- Best Possible Medication History Admit Date and Time: 03/19/192021 Processed by: Pharmacy Medication History completed: Yes Patient Interview: Completed Secondary Source(s): Physician records, Pharmacy records, Insurance records As the person ultimately responsible for medication therapy, providers are able to order a medication from an existing home medication list in [facility] via the "Reconcile Routine" prior to Confirmation of that medication by applications support specialist. Such practice is discouraged except when the physician, in their clinical judgment, deems that a medical need exists for a medication without regard to previous use.
[2019-03-20] MEDS: HEPARIN 5,000 UNIT/ML VIAL SUBQ SCH (08:58)
[2019-03-20] MEDS: INSULIN ASPART 300 UNIT/3 ML PEN SUBQ SCH ×2 (08:58→12:34)
[2019-03-20] MEDS ORDERED: ASPIRIN EC 81 MG TABLET PO SCH (09:00)
[2019-03-20] MEDS ORDERED: INSULIN NPH HUMAN 300 UNIT/3 ML VIAL SUBQ SCH ×2 (09:00)
[2019-03-20] MEDS ORDERED: SERTRALINE 25 MG TABLET PO SCH (09:00)
--- NOTE | 2019-03-20 14:52 | MRI Report ---
Reason: Ataxia. Neuro deficit. Eval for CVA. Procedure Date: 03/20/2019 Accession Number: [id number] / [id number] Procedure: MRI - Brain W/O CPT Code: Final Report FULL RESULT: EXAM: MRI BRAIN WITHOUT CONTRAST EXAM DATE: 03/20/2019 07:56 AM. CLINICAL HISTORY: Ataxia. Neuro deficit. Evaluate for CVA. COMPARISON: CT angiogram head and neck 03/19/2019. MRI brain 03/21/2014. TECHNIQUE: Multiplanar, multisequence T1-weighted and fluid-sensitive MR sequences of the brain were performed. Sequences optimized for routine evaluation. Other: None. IV Contrast: None. FINDINGS: A repeat diffusion-weighted sequence submitted at 2:45 PM demonstrates no restricted diffusion signal with corresponding low ADC map signal. Ventricles and sulci are within normal limits. FLAIR hyperintense signal is seen in the tomasz and has increased. No abnormal T2 or FLAIR hyperintensities have developed in the supratentorial brain. No extra-axial fluid collection is present. There is an expected flow void in the major intracranial vessels at the skull base. No mass is present in either orbit. No mass is present in either Meckel's cave. There is an expected flow void in the superior sagittal sinus. Pansinus mucosal thickening is seen. Bilateral maxillary sinus retention cyst/polyp formation is present. No abnormal magnetic susceptibility has developed in the brain parenchyma. No abnormal T1 shortening is identified in the brain parenchyma. No cerebellar tonsillar ectopia is present. IMPRESSION: 1. No acute CVA on diffusion-weighted imaging. 2. Interval increase in T2 hyperintense signal in the tomasz. This is nonspecific and might well reflect progression of small vessel ischemic change. The appearance is not typical for demyelination which is typically more well-defined. 3. No intracranial mass is present. RADIA
--- NOTE | 2019-03-20 15:04 | Discharge Plan ---
Discharge Plan Problem Reviewed?: Yes Disposition: Home, Self Care Condition: Good Prescriptions: Aspirin 81 mg PO DAILY #30 tab.chew Atorvastatin Calcium [Lipitor] 80 mg PO DAILY PM #30 tablet Clopidogrel [Plavix] 75 mg PO DAILY #30 tablet Fluticasone [Flonase] 1 sprays [place] DAILY #1 bottle Oxymetazoline HCl [Afrin] 15 ml NS BID #1 bottle Diet: Diabetic Activity Restrictions: Activity as Tolerated Shower Restrictions: No Assistance Devices: Walker Weight Bearing: Full Weight Health Concerns: Gait imbalance Uncontrolled diabetes Stroke symptoms Plan of Treatment: Increase Atorvastatin (anti-cholesterol) pill from 40mg to 80mg Take a baby aspirin (81 mg) with Plavix, both for anti-platelet effects For your imbalance, a front wheeled walker has been ordered and given to you during this stay Please attend outpatient physical therapy, which has been ordered Start a 3 day treatment with Afrin nasal spray followed by daily Flonase/Nasonex (twice daily x3 days, or 6 doses) If you begin to get bloody noses with the Flonase, please stop this, start after the Afrin is completed See Dr. Vashti MD with Neurology at [facility] in the next few weeks since having this incident See Dr. Zimmer in [place] who manages your diabetes within one week See Suki Merrill within one week for follow up Care Goals: Prevent further strokes/symptoms Control blood sugars Start on a small blood pressure pill after these symptoms improve Assessment: You were evaluated for stroke symptoms during your stay, which remained similar to prior to this admission Imaging was reviewed with [facility], Dr. Hitesh Kelley who thought these symptoms were micro-vascular in nature or due to peripheral vestibular issues In the very near future, you will want to be started on a very low dose of lisinopril 2.5mg to be prescribed by your primary care provider, and get on a better variation of insulin to be evaluated by Dr. 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 Follow-Up Care: Outpatient Rehab - PT, [facility] - Diabetes Ed No Smoking: If you smoke, Please STOP! Call for help. Follow-up with: Suki Merrill ARNP [Primary Care Provider] -
--- NOTE | 2019-03-20 16:04 | DISCHARGE SUMMARY ---
"Discharge Summary Admit Date: 03/19/19 Discharge Date: 03/20/19 Discharging Provider: SERINA Queen Primary Care Provider: SERINA Moreira Code Status: Attempt Resuscitation Condition at Discharge: Good Discharge Disposition: Home, Self Care - DIAGNOSES Admission Diagnoses: Ataxia History of CVA with residual deficit Uncontrolled type 1 diabetes mellitus Hypothyroidism Anxiety Discharge Diagnoses with Status of Each Condition: Peripheral vestibulopathy-New on this admission, and is based on negative imaging reports (reviewed with [facility] neurology via phone), PT outpatient ordered, walker provided for ongoing ataxia Vertigo-Chronic, improved, continue nasal sprays at home Ataxia-Ongoing, PT recommended outpatient PT with a front wheeled walker for more stability History of CVA with residual deficit-Prescribed baby ASA per patient request, Plavix 75 mg daily, and high dose statin, follow up should be expedited to be ordered by PCP Uncontrolled type 1 diabetes mellitus-Chronic, recommended more frequent follow ups with Dr. Zimmer in [place] Hypertension-Chronic, should be managed by PCP, no treatment for now due to passive HTN after this acute event GERD-Chronic, stable Hyperlipidemia-Chronic, stable Hypothyroidism-Chronic, stable Headache-Chronic, stable Anxiety-Chronic, stable - HPI History of Present Illness: HPI per Dr. Howard: This is a 53-year-old male with a past medical history significant for type 1 diabetes, hypothyroidism, history of CVA with residual right-sided weakness, anxiety who presents today complaining of difficulty walking. He states he woke up at about 3 AM in the morning to use the bathroom when he noticed he had difficulty balancing himself and that he was walking side to side hitting the moore. He states he do not feel like the room are spinning but he did feel a little bit nauseous. He went back to sleep and woke up 9 AM this morning and he still had similar symptoms. He discussed with his about seeking medical attention and eventually decided to but he felt it was not worth calling an ambulance for and unfortunately could not get a ride until about 3 PM. States that in the afternoon he did feel nauseous and had episode of vomiting. He does feel lightheaded and dizzy at times. He reports no focal weaknesses that are new or any numbness or tingling sensations. He states he does have some residual right-sided weakness from a stroke back in 2013 but that deficit is quite minimal. Reports having no vertigo-like symptoms and denies having these symptoms in the past. He reports a slight headache and does complain of blurry vision which is chronic for him and that he supposed be wearing glasses. He did have one episode of hypoglycemia this afternoon with a blood glucose in the 40s but he states his symptoms were also occurring when his blood glucose was 300 this morning. He does not take a baby aspirin but he does take Lipitor. He reports no prior history of syphilis or sexual transmitted infections. He reports having a rash over his body when he first or taking insulin but this lasted just a few days. Denies a history of chancre. In the emergency department, he wass found to be afebrile with temperature 36.7 C. Heart rate was 67. Blood pressure was 115/80. He was not tachypneic and saturating well on room air. His labs were unremarkable. He underwent a CTA of the head and neck which did not show any acute abnormalities or any severe stenosis. Given the patient had difficulty ambulating and was still quite ataxic, medicine was consulted for admission to rule out cerebellar stroke. - CONSULTS | PROCEDURES Consultations: Phone consult Dr. Anjel Kelley- [facility] Neurology - HOSPITAL COURSE Hospital Course: The patient was evaluated for stroke symptoms during his stay, which remained similar to prior to this admission. Imaging was reviewed with [facility] Neurology, Dr. Hitesh Kelley who thought these symptoms were micro-vascular in nature or due to peripheral vestibular issues. - ALLERGIES Allergies/Adverse Reactions: Allergies Allergy/AdvReac Type Severity Reaction Status Date / Time omeprazole Allergy Intermediate Nausea Verified 03/19/19 14:38 codeine AdvReac Severe Dizziness Verified 03/19/19 14:38 doxycycline AdvReac Intermediate Dizziness Verified 03/19/19 14:38 insulin aspart [From Novolog] AdvReac Edema Verified 03/19/19 14:38 insulin regular AdvReac Unknown Verified 03/19/19 14:38 [From Novolin R Regular U-100 Insuln] - MEDICATIONS Home Medications: Ambulatory Orders Medication Instructions Recorded Confirmed Levothyroxine [Synthroid] 125 mcg PO QDAC 09/02/13 03/20/19 Donepezil [Aricept] 5 mg PO DAILY 08/08/15 03/20/19 Sertraline HCl 25 mg PO DAILY 11/09/15 03/20/19 Insulin Lispro [Humalog] 0 - 20 units SQ TIDWM 01/29/16 03/20/19 Mirtazapine 45 mg PO QPM 07/02/18 03/20/19 hydrOXYzine pamoate [Hydroxyzine 150 mg PO QPM 07/03/18 03/20/19 Pamoate] Aspirin 81 mg PO DAILY #30 tab.chew 03/20/19 Atorvastatin Calcium [Lipitor] 80 mg PO DAILY PM #30 tablet 03/20/19 Clopidogrel [Plavix] 75 mg PO DAILY #30 tablet 03/20/19 Fluticasone [Flonase] 1 sprays [place] DAILY #1 bottle 03/20/19 Insulin NPH Human [NovoLIN N] 24 units SUBQ BID 03/20/19 03/20/19 Oxymetazoline HCl [Afrin] 15 ml NS BID #1 bottle 03/20/19 - PHYSICAL EXAM AT DISCHARGE General Appearance: positive: No acute distress, Alert Eyes Bilateral: positive: PERRL ENT: positive: Pharynx nml, No signs of dehydration Neck: positive: Thyroid nml, No JVD Respiratory: positive: Chest non-tender, No respiratory distress, Breath sounds nml Cardiovascular: positive: Regular rate & rhythm, No gallop, Systolic murmur Peripheral Pulses: positive: 2+ Abdomen: positive: Non-tender, Nml bowel sounds Back: positive: Nml inspection Skin: positive: Color nml, No rash, Warm, Dry Extremities: positive: Non-tender, Full ROM, Nml appearance, No pedal edema Neurologic/Psychiatric: positive: Oriented x3, CN's nml (2-12), Weakness (mild weakness to 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 CT SCAN HEAD WITHOUT AND WITH CONTRAST. EXAM DATE: 03/19/2019 04:56 PM. IMPRESSION: CT HEAD: 1. No evidence of acute intracranial abnormality on the noncontrast CT head. Specifically, no evidence of acute infarct, intracranial hemorrhage, mass effect, midline shift, or hydrocephalus. 2. No abnormal enhancement on the postcontrast CT head. CTA NECK: 1. No CTA evidence of hemodynamically significant stenosis, large vessel occlusion, acute dissection, aneurysm, or vascular malformation within extracranial arteries. CTA HEAD: 1. No CTA evidence of hemodynamically significant stenosis, large vessel occlusion, acute dissection, aneurysm, or vascular malformation within intracranial arteries. OTHER: 1. No other acute findings. EXAM: MRI BRAIN WITHOUT CONTRAST EXAM DATE: 03/20/2019 07:56 AM. IMPRESSION: 1. No acute CVA on diffusion-weighted imaging. 2. Interval increase in T2 hyperintense signal in the tomasz. This is nonspecific and might well reflect progression of small vessel ischemic change. The appearance is not typical for demyelination which is typically more well-defined. 3. No intracranial mass is present. - FOLLOW UP Follow Up: Health Concerns: Gait imbalance, Uncontrolled diabetes, Stroke symptoms Plan of Treatment: Increase Atorvastatin (anti-cholesterol) pill from 40mg to 80mg Take a baby aspirin (81 mg) with Plavix, both for anti-platelet effects For your imbalance, a front wheeled walker has been ordered and given to you during this stay Please attend outpatient physical therapy, which has been ordered Start a 3 day treatment with Afrin nasal spray followed by daily Flonase/Nasonex (twice daily x3 days, or 6 doses) If you begin to get bloody noses with the Flonase, please stop this, start after the Afrin is completed See Dr. Vashti MD with Neurology at [facility] in the next few weeks since having this incident See Dr. Zimmer in [place] who manages your diabetes within one week See Suki Merrill within one week for follow up Care Goals: Prevent further strokes/symptoms Control blood sugars Start on a small blood pressure pill after these symptoms improve Assessment: You were evaluated for stroke symptoms during your stay, which remained similar to prior to this admission Imaging was reviewed with [facility] Neurology, Dr. Hitesh Kelley who thought these symptoms were micro-vascular in nature or due to peripheral vestibular issues In the very near future, you will want to be started on a very low dose of lisinopril 2.5mg to be prescribed by your primary care provider, and get on a better variation of insulin to be evaluated by Dr. 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
[2019-03-20 16:49] VITALS: BP 130/100
[2019-03-20] MEDS ORDERED: MIRTAZAPINE 15 MG TABLET PO SCH (21:00)
[2019-03-20] MEDS ORDERED: ATORVASTATIN 40 MG TABLET PO SCH (21:00)
== END 2019-03-20 16:50 | disposition home or self-care (01) ==
LOC: ED 14:25 → MS2 20:22
PROVIDERS: ADMIT Internal Medicine; ATTEND Nurse Practitioner
DX: H81.20 Vestibular neuronitis, unspecified ear (principal); R27.0 Ataxia, unspecified; I69.951 Hemiplegia and hemiparesis following unspecified cerebrovascular disease affecting right dominant side; E10.649 Type 1 diabetes mellitus with hypoglycemia without coma; E10.65 Type 1 diabetes mellitus with hyperglycemia; I10 Essential (primary) hypertension; K21.9 Gastro-esophageal reflux disease without esophagitis; E78.5 Hyperlipidemia, unspecified; R51 Headache; F41.9 Anxiety disorder, unspecified
CPT/HCPCS: 36415; 70496; 70498; 70551; 80048; 80053; 80061; 81003; 82009; 82607; 82803; 83036; 83690; 83735; 84100; 84443; 84484; 85025; 93005; 96372; 97162; 97530; 99285; A9270; G0378; J1815; J8499; Q9967; 80320; 81001; 83721; 87086

== ENCOUNTER 2019-04-30 10:15 | Outpatient (CLI) | payer MEDICARE, MEDICAID | END 2019-04-30 10:16 | disposition critical access hospital (66) | LOC: EMS 10:15 | PROVIDERS: ATTEND Surgery | DX: R73.09 Other abnormal glucose (principal); R53.83 Other fatigue; R42 Dizziness and giddiness; R00.2 Palpitations | CPT/HCPCS: A0425; A0427 ==

== ENCOUNTER 2019-04-30 10:31 | Emergency (ER) | payer MEDICARE, MEDICAID ==
[2019-04-30] MEDS ORDERED: SODIUM CHLORIDE 0.9% 1,000 ML IV ONE ×3 (10:36→12:37)
--- NOTE | 2019-04-30 10:54 | ED Physician Documentation ---
History of Present Illness - Stated complaint Stated Complaint: HIGH BS - Chief complaint Chief Complaint: General - History obtained from History obtained from: Patient - History of Present Illness Timing: Today Pain level max: 0 Pain level now: 0 - Additonal information Additional information: 53-year-old male presents the emergency department stating that he feels generally unwell. Ran out of his long-acting insulin 4 days ago. No nausea or vomiting. Nothing makes it better or worse. He states that he feels a "strange feeling" in his chest as well. Review of Systems Ten Systems: 10 systems reviewed and negative Constitutional: denies: Fever, Chills Cardiac: reports: Palpitations. denies: Chest pain / pressure Respiratory: denies: Cough GI: denies: Abdominal Pain, Vomiting, Constipation Skin: denies: Rash, Lesions Musculoskeletal: denies: Neck pain, Back pain Neurologic: denies: Headache PD PAST MEDICAL HISTORY - Past Medical History Cardiovascular: Hypertension, High cholesterol, Other Respiratory: Pneumonia Neuro: CVA, Other Endocrine/Autoimmune: Type 1 diabetes GI: GERD, Ulcers, Colon polyps : None HEENT: None Psych: None Musculoskeletal: Chronic back pain Derm: None - Past Surgical History Past Surgical History: Yes General: Colonoscopy Ortho: Carpal Tunnel surgery HEENT: Other - Present Medications Home Medications: Ambulatory Orders Medication Instructions Recorded Confirmed Levothyroxine [Synthroid] 125 mcg PO QDAC 09/02/13 03/20/19 Sertraline HCl 25 mg PO DAILY 11/09/15 03/20/19 Insulin Lispro [Humalog] 0 - 20 units SQ TIDWM 01/29/16 03/20/19 Mirtazapine 45 mg PO QPM 07/02/18 03/20/19 Aspirin 81 mg PO DAILY #30 tab.chew 03/20/19 Atorvastatin Calcium [Lipitor] 80 mg PO DAILY PM #30 tablet 03/20/19 Clopidogrel [Plavix] 75 mg PO DAILY #30 tablet 03/20/19 Fluticasone [Flonase] 1 sprays [place] DAILY #1 bottle 03/20/19 Insulin NPH Human [NovoLIN N] 30 units SUBQ BID 03/20/19 03/20/19 Insulin NPH Human Isophane 30 unit SUBQ BID #1 vial 04/30/19 [Novolin N] - Allergies Allergies/Adverse Reactions: Allergies Allergy/AdvReac Type Severity Reaction Status Date / Time omeprazole Allergy Intermediate Nausea Verified 04/30/19 10:40 codeine AdvReac Severe Dizziness Verified 04/30/19 10:40 doxycycline AdvReac Intermediate Dizziness Verified 04/30/19 10:40 - Social History Does the pt smoke?: No Smoking Status: Never smoker Does the pt drink ETOH?: No Does the pt have substance abuse?: No - Immunizations Immunizations are current?: Yes - POLST Patient has POLST: No PD ED PE NORMAL - Vitals Vital signs reviewed: Yes - General General: Alert and oriented X 3, No acute distress - HEENT HEENT: Moist mucous membranes - Neck Neck: Supple, no meningeal sign - Cardiac Cardiac: RRR, No murmur, Strong equal pulses - Respiratory Respiratory: No respiratory distress, Clear bilaterally - Abdomen Abdomen: Soft, Non tender, Non distended - Derm Derm: Warm and dry, No rash - Extremities Extremities: No edema - Neuro Neuro: Alert and oriented X 3 - Psych Psych: Normal mood, Normal affect Results - Vitals Vitals: Vital Signs - 24 hr 04/30/19 04/30/19 04/30/19 10:36 11:56 12:46 Temperature 36.7 C Heart Rate 64 60 68 Respiratory 16 20 19 Rate Blood Pressure 135/73 H 134/84 H 134/62 H O2 Saturation 98 98 98 04/30/19 13:20 Temperature Heart Rate 73 Respiratory 18 Rate Blood Pressure 151/91 H O2 Saturation 97 Oxygen O2 Source [] Room air O2 Source Room air - EKG (time done) 1054 Rate: Rate (enter#) (62) Rhythm: NSR [place]: Normal Intervals: Normal [place] QRS: Normal Ischemia: Normal ST segments - Labs Labs: Laboratory Tests 04/30/19 04/30/19 04/30/19 11:00 11:00 11:00 WBC 8.0 RBC 4.70 Hgb 14.6 Hct 41.4 L MCV 88.1 MCH 31.1 H MCHC 35.3 RDW 11.9 L Plt Count 195 MPV 11.7 H Neut # (Auto) 6.4 Lymph # (Auto) 1.0 L [place] # (Auto) 0.5 Eos # (Auto) 0.0 Baso # (Auto) 0.0 Absolute Nucleated RBC 0.00 Nucleated RBC % 0.0 VBG pH 7.362 VBG pCO2 43.7 VBG pO2 18.5 L VBG HCO3 24.2 VBG Total CO2 25.6 VBG O2 Saturation 29.5 L VBG Base Excess -1.3 Sodium 138 Potassium 3.9 Chloride 102 Carbon Dioxide 25 Anion Gap 11.0 BUN 22 H Creatinine 1.0 Estimated GFR (MDRD) 78 L Glucose 309 H Calcium 8.6 Total Bilirubin 1.9 H AST 17 ALT 19 Alkaline Phosphatase 59 Troponin I High Sens Total Protein 6.3 L Albumin 3.6 Globulin 2.7 Albumin/Globulin Ratio 1.3 Lipase 39 Serum Ketones SMALL H 04/30/19 11:00 WBC RBC Hgb Hct MCV MCH MCHC RDW Plt Count MPV Neut # (Auto) Lymph # (Auto) [place] # (Auto) Eos # (Auto) Baso # (Auto) Absolute Nucleated RBC Nucleated RBC % VBG pH VBG pCO2 VBG pO2 VBG HCO3 VBG Total CO2 VBG O2 Saturation VBG Base Excess Sodium Potassium Chloride Carbon Dioxide Anion Gap BUN Creatinine Estimated GFR (MDRD) Glucose Calcium Total Bilirubin AST ALT Alkaline Phosphatase Troponin I High Sens < 2.3 L Total Protein Albumin Globulin Albumin/Globulin Ratio Lipase Serum Ketones PD MEDICAL DECISION MAKING - ED course Complexity details: reviewed results, re-evaluated patient, considered differential, d/w patient ED course: Feels better after IV fluids and insulin. Blood sugar decreased. Tolerating p.o. without difficulty. A pharmacy voucher was given for the insulin for home. Patient counseled regarding signs and symptoms for which I believe and urgent re-evaluation would be necessary. Patient with good understanding of and agreement to plan and is comfortable going home at this time This document was made in part using voice recognition software. While efforts are made to proofread this document, sound alike and grammatical errors may occur. Departure - Departure Disposition: Home, Self Care Clinical Impression: Hyperglycemia Condition: Good Instructions: ED Hyperglycemia Diabetic Follow-Up: Suki Merrill ARNP [Primary Care Provider] - Within 1 week Prescriptions: Insulin NPH Human Isophane [Novolin N] 30 unit SUBQ BID #1 vial Comments: Return if you worsen. Please fill the insulin that was given to today. This should help you feel better. Discharge Date/Time: 04/30/19 13:40
[2019-04-30 11:06] LABS: BASOPHILS % (AUTO) 0.5 %; EOSINOPHILS % (AUTO) 0.4 %; HGB - HEMOGLOBIN 14.6 g/dL (14.0-18.0); LYMPHOCYTES % (AUTO) 12.3 %; MEAN CORPUSCULAR HEMOGLOBIN 31.1 pg (27.0-31.0); MEAN CORPUSCULAR HGB CONC 35.3 g/dL (32.0-36.0); MEAN CORPUSCULAR VOLUME 88.1 fL (80.0-94.0); MEAN PLATELET VOLUME 11.7 fL (7.4-11.4); MONOCYTES # (AUTO) 0.5 10^3/uL (0.0-1.0); MONOCYTES % (AUTO) 6.1 %; NEUTROPHILS # (AUTO) 6.4 10^3/uL (1.5-6.6); NEUTROPHILS % (AUTO) 80.2 %; PLT - PLATELET COUNT 195 10^3/uL (130-450); RED CELL DISTRIBUTION WIDTH 11.9 % (12.0-15.0)
[2019-04-30 11:07] LABS: VBG BASE EXCESS -1.3 mmol/L (-2 - +2); VBG PCO2 43.7 mmHg (41-51); VBG PH 7.362 (7.31-7.41); VBG PO2 18.5 mmHg (25-47); VBG TOTAL CO2 25.6 mmol/L (24-29)
[2019-04-30 11:20] LABS: ALBUMIN 3.6 g/dL (3.2-5.5); ALBUMIN/GLOBULIN RATIO 1.3 (1.0-2.2); ALKALINE PHOSPHATASE 59 IU/L (42-121); ALT ALANINE AMINOTRANSFERASE 19 IU/L (10-60); AST ASPARTATE AMINOTRANSFERASE 17 IU/L (10-42); BILIRUBIN,TOTAL 1.9 mg/dL (0.2-1.0); BUN - BLOOD UREA NITROGEN 22 mg/dL (6-20); CALCIUM 8.6 mg/dL (8.5-10.3); CARBON DIOXIDE - CO2 25 mmol/L (21-32); CHLORIDE 102 mmol/L (101-111); GFR - MDRD 78 (>89); GLUCOSE 309 mg/dL (70-100); LIPASE 39 U/L (22-51); SODIUM 138 mmol/L (135-145); TOTAL PROTEIN 6.3 g/dL (6.7-8.2)
[2019-04-30 11:29] LABS: KETONES, SERUM (ACETEST) SMALL (NEGATIVE)
--- NOTE | 2019-04-30 11:32 | XRAY Report ---
Reason: palpitations Procedure Date: 04/30/2019 Accession Number: [id number] / [id number] Procedure: XR - Chest 1 View X-Ray CPT Code: 58240 Final Report FULL RESULT: EXAM: CHEST RADIOGRAPHY EXAM DATE: 04/30/2019 11:26 AM. CLINICAL HISTORY: Palpitations. COMPARISON: CHEST 1 VIEW 01/20/2019 12:50 PM. TECHNIQUE: 1 view. FINDINGS: Lungs/Pleura: No focal opacities evident. No pleural effusion. No pneumothorax. Mediastinum: Within exam limitations, the cardiomediastinal contour is normal. Other: None. IMPRESSION: Normal single view chest. RADIA
[2019-04-30] MEDS ORDERED: INSULIN REGULAR HUMAN 100 UNIT/1 ML 10 ML MDV IVP STA (12:37)
[2019-04-30 13:23] VITALS: BP 151/91
== END 2019-04-30 13:40 | disposition home or self-care (01) ==
LOC: EDUNIT# → ED 10:31
DX: E10.65 Type 1 diabetes mellitus with hyperglycemia (principal); T38.3X6A Underdosing of insulin and oral hypoglycemic [antidiabetic] drugs, initial encounter; Z91.138 Patient's unintentional underdosing of medication regimen for other reason; I10 Essential (primary) hypertension
CPT/HCPCS: 36415; 71045; 80053; 82009; 82803; 83690; 84484; 85025; 93005; 96360; 96361; 99284; J1815

== ENCOUNTER 2019-08-28 16:28 | Emergency (ER) | payer MEDICARE, MEDICAID ==
[2019-08-28] MEDS ORDERED: SODIUM CHLORIDE 0.9% 1,000 ML IV STA (16:41)
[2019-08-28] MEDS ORDERED: ONDANSETRON 4 MG/2 ML VIAL IVP STA (16:45)
--- NOTE | 2019-08-28 16:46 | ED Physician Documentation ---
History of Present Illness - Stated complaint Stated Complaint: NAUSEA - Chief complaint Chief Complaint: General - History obtained from History obtained from: Patient - History of Present Illness Timing: Other (For the last 8 days this longstanding type I diabetic is had brittle blood sugars. He is not sure why. He has been trying to lose weight with not too much success. That is really the only change. He feels confused and is urinating a lot, somewhat nauseous and it feels reminiscent of prior DKA for him. He denies chest pain, no cough. No pedal edema. No urinary complaints other than polyuria.) Review of Systems Ten Systems: 10 systems reviewed and negative Constitutional: reports: Fatigue. denies: Fever, Chills Cardiac: denies: Chest pain / pressure Respiratory: denies: Cough GI: reports: Nausea. denies: Abdominal Pain, Vomiting PD PAST MEDICAL HISTORY - Past Medical History Past Medical History: Yes Cardiovascular: Hypertension, High cholesterol, Other Respiratory: Pneumonia Neuro: CVA, Other Endocrine/Autoimmune: Type 1 diabetes GI: GERD, Ulcers, Colon polyps : None HEENT: None Psych: None Musculoskeletal: None, Chronic back pain Derm: None - Past Surgical History Past Surgical History: Yes General: Colonoscopy Ortho: Carpal Tunnel surgery HEENT: Other - Present Medications Home Medications: Ambulatory Orders Medication Instructions Recorded Confirmed Levothyroxine [Synthroid] 125 mcg PO QDAC 09/02/13 03/20/19 Sertraline HCl 25 mg PO DAILY 11/09/15 03/20/19 Insulin Lispro [Humalog] 0 - 20 units SQ TIDWM 01/29/16 03/20/19 Mirtazapine 45 mg PO QPM 07/02/18 03/20/19 Aspirin 81 mg PO DAILY #30 tab.chew 03/20/19 Atorvastatin Calcium [Lipitor] 80 mg PO DAILY PM #30 tablet 03/20/19 Clopidogrel [Plavix] 75 mg PO DAILY #30 tablet 03/20/19 Fluticasone [Flonase] 1 sprays [place] DAILY #1 bottle 03/20/19 Insulin NPH Human [NovoLIN N] 30 units SUBQ BID 03/20/19 03/20/19 Insulin NPH Human Isophane 30 unit SUBQ BID #1 vial 04/30/19 [Novolin N] - Allergies Allergies/Adverse Reactions: Allergies Allergy/AdvReac Type Severity Reaction Status Date / Time omeprazole Allergy Intermediate Nausea Verified 04/30/19 10:40 codeine AdvReac Severe Dizziness Verified 04/30/19 10:40 doxycycline AdvReac Intermediate Dizziness Verified 04/30/19 10:40 - Social History Does the pt smoke?: No Smoking Status: Never smoker Does the pt drink ETOH?: No Does the pt have substance abuse?: No - Immunizations Immunizations are current?: Yes - POLST Patient has POLST: No PD ED PE NORMAL - Vitals Vital signs reviewed: Yes - General General: Alert and oriented X 3, No acute distress - HEENT HEENT: PERRL, EOMI - Neck Neck: Supple, no meningeal sign, No bony TTP - Cardiac Cardiac: RRR, No murmur - Respiratory Respiratory: No respiratory distress, Clear bilaterally - Abdomen Abdomen: Normal bowel sounds, Soft, Non tender - Back Back: No CVA TTP, No spinal TTP - Derm Derm: Normal color, Warm and dry - Extremities Extremities: No edema, No calf tenderness / cord - Neuro Neuro: Alert and oriented X 3, Normal speech Results - Vitals Vitals: Vital Signs - 24 hr 08/28/19 16:35 Temperature 37 C Heart Rate 89 Respiratory 18 Rate Blood Pressure 118/77 O2 Saturation 96 Oxygen O2 Source [Without Activity] Room air O2 Source Room air - Labs Labs: Laboratory Tests 08/28/19 08/28/19 08/28/19 17:11 17:11 17:20 WBC 6.8 RBC 4.94 Hgb 15.2 Hct 43.9 MCV 88.9 MCH 30.8 MCHC 34.6 RDW 12.2 Plt Count 243 MPV 11.4 Neut # (Auto) 4.5 Lymph # (Auto) 1.7 [place] # (Auto) 0.5 Eos # (Auto) 0.1 Baso # (Auto) 0.1 Absolute Nucleated RBC 0.00 Nucleated RBC % 0.0 VBG pH 7.414 H VBG pCO2 37.4 L VBG pO2 41.0 VBG HCO3 23.4 VBG Total CO2 24.5 VBG O2 Saturation 80.2 H VBG Base Excess -0.8 Sodium 138 Potassium 3.9 Chloride 102 Carbon Dioxide 25 Anion Gap 11.0 BUN 21 H Creatinine 1.0 Estimated GFR (MDRD) 78 L Glucose 140 H Calcium 9.0 Total Bilirubin 0.8 AST 17 ALT 19 Alkaline Phosphatase 58 Total Protein 6.6 L Albumin 3.8 Globulin 2.8 Albumin/Globulin Ratio 1.4 Lipase 29 Serum Ketones NEGATIVE PD MEDICAL DECISION MAKING - ED course ED course: 53-year-old gentleman with longstanding type 1 diabetes presents with a concern for DKA of which there is no evidence of on blood work. He was feeling better after IV fluids. Departure - Departure Disposition: Home, Self Care Clinical Impression: Uncontrolled diabetes mellitus Qualifiers: Diabetes mellitus type: type 1 Glycemic state: with hyperglycemia Qualified Code(s): E10.65 - Type 1 diabetes mellitus with hyperglycemia Condition: Stable Record reviewed to determine appropriate education?: Yes Instructions: Diabetes Type 1 Comments: Your labs and blood sugar here actually looks okay today, continue your care and return if worse. Follow-up with your engineering production liaison as needed.
[2019-08-28 17:16] LABS: BASOPHILS # (AUTO) 0.1 10^3/uL (0.0-0.1); BASOPHILS % (AUTO) 0.9 %; EOSINOPHILS # (AUTO) 0.1 10^3/uL (0.0-0.7); EOSINOPHILS % (AUTO) 0.9 %; HGB - HEMOGLOBIN 15.2 g/dL (14.0-18.0); LYMPHOCYTES # (AUTO) 1.7 10^3/uL (1.5-3.5); LYMPHOCYTES % (AUTO) 24.7 %; MEAN CORPUSCULAR HEMOGLOBIN 30.8 pg (27.0-31.0); MEAN CORPUSCULAR HGB CONC 34.6 g/dL (32.0-36.0); MEAN CORPUSCULAR VOLUME 88.9 fL (80.0-94.0); MEAN PLATELET VOLUME 11.4 fL (7.4-11.4); MONOCYTES # (AUTO) 0.5 10^3/uL (0.0-1.0); MONOCYTES % (AUTO) 7.6 %; NEUTROPHILS # (AUTO) 4.5 10^3/uL (1.5-6.6); NEUTROPHILS % (AUTO) 65.5 %; PLT - PLATELET COUNT 243 10^3/uL (130-450); RED BLOOD COUNT 4.94 10^6/uL (4.70-6.10); RED CELL DISTRIBUTION WIDTH 12.2 % (12.0-15.0); WHITE BLOOD COUNT 6.8 x10^3/uL (4.8-10.8)
[2019-08-28 17:25] LABS: VBG BASE EXCESS -0.8 mmol/L (-2 - +2); VBG PCO2 37.4 mmHg (41-51); VBG PH 7.414 (7.31-7.41); VBG TOTAL CO2 24.5 mmol/L (24-29)
[2019-08-28 17:32] LABS: ALBUMIN 3.8 g/dL (3.2-5.5); ALBUMIN/GLOBULIN RATIO 1.4 (1.0-2.2); ALKALINE PHOSPHATASE 58 IU/L (42-121); ALT ALANINE AMINOTRANSFERASE 19 IU/L (10-60); AST ASPARTATE AMINOTRANSFERASE 17 IU/L (10-42); BILIRUBIN,TOTAL 0.8 mg/dL (0.2-1.0); BUN - BLOOD UREA NITROGEN 21 mg/dL (6-20); CARBON DIOXIDE - CO2 25 mmol/L (21-32); CHLORIDE 102 mmol/L (101-111); GLUCOSE 140 mg/dL (70-100); LIPASE 29 U/L (22-51); SODIUM 138 mmol/L (135-145); TOTAL PROTEIN 6.6 g/dL (6.7-8.2)
[2019-08-28 17:33] LABS: KETONES, SERUM (ACETEST) NEGATIVE (NEGATIVE)
[2019-08-28 18:15] VITALS: BP 117/77
== END 2019-08-28 18:31 | disposition home or self-care (01) ==
LOC: ED 16:28
DX: E10.65 Type 1 diabetes mellitus with hyperglycemia (principal); I10 Essential (primary) hypertension; Z86.73 Personal history of transient ischemic attack (TIA), and cerebral infarction without residual deficits; Z79.02 Long term (current) use of antithrombotics/antiplatelets; Z79.82 Long term (current) use of aspirin
CPT/HCPCS: 36415; 80053; 82009; 82803; 83690; 85025; 96361; 96374; 99284

== ENCOUNTER 2019-09-07 13:39 | Emergency (ER) | payer MEDICARE, MEDICAID ==
--- NOTE | 2019-09-07 14:15 | ED Physician Documentation ---
PD HPI LOWER EXT INJURY - Stated complaint Stated Complaint: R PINKY TOE INJURY - Chief complaint Chief Complaint: Ext Problem - History obtained from History obtained from: Patient - History of Present Illness PD HPI LOW EXT INJURY LOCATION: Right, Toe Type of injury: Blunt / blow Where injury occurred: Home Timing - onset: How many days ago (3) Timing - details: Abrupt onset Pain level max: 10 Pain level now: 4 Improved by: Rest, Ice Worsened by: Moving, Palpating - Additional information Additional information: 53-year-old male presents to the emergency department with right foot small toe pain. Reports that 3 nights ago he got up to use the restroom and stubbed his right toe on a misplaced closet door. Since then pain and swelling in the fourth and fifth toes as well as ecchymosis in the distal fourth fifth metatarsals. No history of previous foot injury. Review of Systems Constitutional: denies: Fever Eyes: denies: Loss of vision Cardiac: denies: Chest pain / pressure, Palpitations Respiratory: denies: Dyspnea, Cough GI: denies: Abdominal Pain Musculoskeletal: reports: Extremity pain, Extremity swelling Neurologic: denies: Generalized weakness, Focal weakness PD PAST MEDICAL HISTORY - Past Medical History Past Medical History: Yes Cardiovascular: Hypertension, High cholesterol, Other Respiratory: Pneumonia Neuro: CVA, Other Endocrine/Autoimmune: Type 1 diabetes GI: GERD, Ulcers, Colon polyps : None HEENT: None Psych: None Musculoskeletal: None, Chronic back pain Derm: None - Past Surgical History Past Surgical History: Yes General: Colonoscopy Ortho: Carpal Tunnel surgery HEENT: Other - Present Medications Home Medications: Ambulatory Orders Medication Instructions Recorded Confirmed Levothyroxine [Synthroid] 125 mcg PO QDAC 09/02/13 03/20/19 Sertraline HCl 25 mg PO DAILY 11/09/15 03/20/19 Insulin Lispro [Humalog] 0 - 20 units SQ TIDWM 01/29/16 03/20/19 Mirtazapine 45 mg PO QPM 07/02/18 03/20/19 Aspirin 81 mg PO DAILY #30 tab.chew 03/20/19 Atorvastatin Calcium [Lipitor] 80 mg PO DAILY PM #30 tablet 03/20/19 Clopidogrel [Plavix] 75 mg PO DAILY #30 tablet 03/20/19 Fluticasone [Flonase] 1 sprays [place] DAILY #1 bottle 03/20/19 Insulin NPH Human [NovoLIN N] 30 units SUBQ BID 03/20/19 03/20/19 Insulin NPH Human Isophane 30 unit SUBQ BID #1 vial 04/30/19 [Novolin N] - Allergies Allergies/Adverse Reactions: Allergies Allergy/AdvReac Type Severity Reaction Status Date / Time omeprazole Allergy Intermediate Nausea Verified 04/30/19 10:40 codeine AdvReac Severe Dizziness Verified 04/30/19 10:40 doxycycline AdvReac Intermediate Dizziness Verified 04/30/19 10:40 - Social History Does the pt smoke?: No Smoking Status: Never smoker Does the pt drink ETOH?: No Does the pt have substance abuse?: No - Immunizations Immunizations are current?: Yes - POLST Patient has POLST: No PD ED PE NORMAL - General General: Alert and oriented X 3, No acute distress, Well developed/nourished - Extremities Extremities: Other (swelling/ecchymosis 4/5tyh right stoes. swelling ecchymosis 4/5th tarsal/metatarsal joing. able to walk on heels. ) Results - Vitals Vitals: Vital Signs - 24 hr 09/07/19 13:58 Temperature 36.8 C Heart Rate 69 Respiratory 16 Rate O2 Saturation 98 Oxygen O2 Source [Without Activity] Room air O2 Source Room air - Rads (name of study) right foot xray Radiology: Final report received (Acute nondisplaced proximal phalangeal fracture at base.) PD MEDICAL DECISION MAKING - ED course Complexity details: reviewed results, re-evaluated patient, d/w patient ED course: 53-year-old male presented to the emergency department with distal right lateral foot pain after stubbing his toe on the closet door. X-ray reveals a nondisplaced proximal phalanx fracture of the fifth or small toe. Patient will be placed in a walking boot weightbearing as tolerated referral to [facility] orth[facility]. Departure - Departure Disposition: 01 Home, Self Care Clinical Impression: Toe fracture, right Qualifiers: Encounter type: initial encounter Toe: unspecified toe Fracture type: closed Fracture alignment: nondisplaced Qualified Code(s): S92.911A - Unspecified fracture of right toe(s), initial encounter for closed fracture Condition: Stable Record reviewed to determine appropriate education?: Yes Instructions: ED Fx Toe Closed Follow-Up: [facility] [Provider Group] Comments: Ed the proximal phalanx of your small toe is broken. It is not displaced. Please wear this boot at all times when out of bed. I have referred you to follow-up with the orthopedic doctors.
--- NOTE | 2019-09-07 14:47 | XRAY Report ---
PROCEDURE: Foot 3 View RT INDICATIONS: swelling bruising 4/5th tarsals/distal phalanx TECHNIQUE: 3 views of the foot were acquired. COMPARISON: None FINDINGS: Bones: Acute nondisplaced fracture through fifth proximal phalangeal base is seen. No other fracture or dislocation. No suspicious bony lesions. Soft tissues: No tibiotalar joint effusion. Achilles tendon appears normal. IMPRESSION: Acute nondisplaced fifth proximal phalangeal base fracture. Reviewed by: Ji Quiñones MD on 09/07/2019 2:45 PM PDT Approved by: Ji Quiñones MD on 09/07/2019 2:45 PM PDT Station ID: [id number]
[2019-09-07 15:23] VITALS: BP 146/75
== END 2019-09-07 15:24 | disposition home or self-care (01) ==
LOC: ED 13:39
DX: S92.514A Nondisplaced fracture of proximal phalanx of right lesser toe(s), initial encounter for closed fracture (principal); W22.09XA Striking against other stationary object, initial encounter; Y92.009 Unspecified place in unspecified non-institutional (private) residence as the place of occurrence of the external cause; I10 Essential (primary) hypertension; E10.9 Type 1 diabetes mellitus without complications; Z86.73 Personal history of transient ischemic attack (TIA), and cerebral infarction without residual deficits; Z79.02 Long term (current) use of antithrombotics/antiplatelets; Z79.82 Long term (current) use of aspirin
CPT/HCPCS: 99282; 99283

== ENCOUNTER 2019-11-02 13:59 | Emergency (ER) | payer MEDICAID, MEDICARE ==
--- NOTE | 2019-11-02 14:33 | ED Physician Documentation ---
History of Present Illness - Stated complaint Stated Complaint: HIGH BLOOD SUGAR - Chief complaint Chief Complaint: Abd Pain - History obtained from History obtained from: Patient - History of Present Illness Timing: Prior to arrival - Additonal information Additional information: 54-year-old insulin-dependent male comes to the emergency department for evaluation of blood sugars that have been too high to read on his home glucose monitor beginning this morning. This gentleman reports that for about 2 days he has had some mild dysuria before urination as well as a dry cough. He denies any fevers. No diarrhea but he does endorse vomiting 3 times. He does report some mid upper epigastric pain. No chest pain, chest pressure or dyspnea. Patient reports that he recently traveled to [place] via airplane at the end of September and was there for nearly 2 weeks. point of care [place]ook glucose 295 mg/dl here in the ED. This patient reports that he took 80 units of his Humalog throughout the course of the day in order to reduce his blood glucose He typically takes Humalog approximately 20 units with meals as well as NPH every morning and evening. He did miss one evening dose of NPH about 48 hours ago. He reports that his postprandial blood sugars are typically in the 180s. pmh: Insulin dependent DM, hypothryoid, hyperlipidemia, depression meds: NPH insulin 25 units every morning, NPH insulin 30 units every afternoon. Humalog 20 units with meals levothyroxine, mirtazapine. He also takes numerous [id number] herbs and remedies including tumeric and a medication called libido max. pt does see an film cleaner Dr. Zimmer in [place], however he has not seen him for many months due to transportation issues Review of Systems Constitutional: reports: Fever, Chills Ears: denies: Ear pain, Tinnitus/ringing Nose: reports: Congestion Throat: reports: Dental pain / toothache, Oral lesions / sores, Sore throat, Swollen tonsils Cardiac: denies: Chest pain / pressure, Palpitations, Pedal edema, Calf pain Respiratory: reports: Cough (dry X 2 days). denies: Dyspnea, Hemoptysis, Wheezing GI: reports: Abdominal Pain, Vomiting. denies: Abdominal Swelling, Constipation, Diarrhea, Hematemesis, Bloody / black stool : reports: Dysuria. denies: Frequency, Hesitancy, Unable to Void, Hematuria Skin: denies: Rash, Lesions Musculoskeletal: denies: Neck pain, Back pain, Extremity pain Neurologic: denies: Generalized weakness, Focal weakness, Numbness, Difficulty speaking, Near syncope, Syncope, Seizure, Confused, Headache, Head injury, LOC Psychiatric: denies: Depressed, Suicidal Endocrine: denies: Polydypsia, Polyuria PD PAST MEDICAL HISTORY - Past Medical History Cardiovascular: Hypertension, High cholesterol, Other Respiratory: Pneumonia Neuro: CVA, Other Endocrine/Autoimmune: Type 1 diabetes GI: GERD, Ulcers, Colon polyps : None HEENT: None Psych: None Musculoskeletal: None, Chronic back pain Derm: None - Past Surgical History Past Surgical History: Yes General: Colonoscopy Ortho: Carpal Tunnel surgery HEENT: Other - Present Medications Home Medications: Ambulatory Orders Medication Instructions Recorded Confirmed Levothyroxine [Synthroid] 125 mcg PO QDAC 09/02/13 03/20/19 Sertraline HCl 25 mg PO DAILY 11/09/15 03/20/19 Insulin Lispro [Humalog] 0 - 20 units SQ TIDWM 01/29/16 03/20/19 Mirtazapine 45 mg PO QPM 07/02/18 03/20/19 Aspirin 81 mg PO DAILY #30 tab.chew 03/20/19 Atorvastatin Calcium [Lipitor] 80 mg PO DAILY PM #30 tablet 03/20/19 Clopidogrel [Plavix] 75 mg PO DAILY #30 tablet 03/20/19 Fluticasone [Flonase] 1 sprays [place] DAILY #1 bottle 03/20/19 Insulin NPH Human [NovoLIN N] 30 units SUBQ BID 03/20/19 03/20/19 Insulin NPH Human Isophane 30 unit SUBQ BID #1 vial 04/30/19 [Novolin N] - Allergies Allergies/Adverse Reactions: Allergies Allergy/AdvReac Type Severity Reaction Status Date / Time omeprazole Allergy Intermediate Nausea Verified 11/02/19 14:06 codeine AdvReac Severe Dizziness Verified 11/02/19 14:06 doxycycline AdvReac Intermediate Dizziness Verified 11/02/19 14:06 - Social History Does the pt smoke?: No Smoking Status: Never smoker Does the pt drink ETOH?: No Does the pt have substance abuse?: No - Immunizations Immunizations are current?: Yes - POLST Patient has POLST: No PD ED PE EXPANDED - General General: Alert, No acute distress, Well developed/nourished, Anxious. No: In Pain, In distress - HEENT HEENT: PERRL, EOMI, Moist mucous membranes, Pharynx normal. No: Pharyngeal erythema, Oral lesions / sores - Eyes Eyes: PERRL, Normal accommodation - Neck Neck: Supple w/out meningeal sx. No: Adenopathy - Cardiac Cardiac: Regular Rate, Radial strong equal, Femoral strong equal, Cap refill < 2 sec. No: Murmur Present, Prolonged cap refill - Respiratory Respiratory: Clear to ausultation [place]. No: Distress, Labored - Abdomen Abdomen: Normal Bowel sounds, Tender to palpation, Epigastric. No: Rebound, Guarding - Back Back: No: CVA TTP right, CVA TTP left - Extremities Extremities: Normal. No: Pedal edema bilateral - Neuro Neuro: Alert and Oriented X 3, CNII-XII intact, Normal gait. No: Normal finger nose, Normal speech - GCS Eye Opening: Spontaneous Motor: Obeys Commands Verbal: Oriented Total: 15 Results - Vitals Vitals: Vital Signs - 24 hr 11/02/19 11/02/19 11/02/19 14:06 14:52 15:26 Temperature 36.7 C 36.3 C L Heart Rate 67 67 63 Respiratory 16 18 12 Rate Blood Pressure 149/89 H 156/89 H 137/93 H O2 Saturation 99 97 100 Oxygen O2 Source [] Room air O2 Source Room air - EKG (time done) 1416 Rate: Rate (enter#) (69) Rhythm: NSR [place]: Normal Intervals: Normal [place] QRS: Normal Ischemia: Normal ST segments Compare to prior EKG: Unchanged from prior EKG Computer interpretation: Agree with computer - Labs Labs: Laboratory Tests 11/02/19 11/02/19 11/02/19 14:04 14:27 14:27 WBC 7.2 RBC 4.57 L Hgb 14.1 Hct 40.8 L MCV 89.3 MCH 30.9 MCHC 34.6 RDW 12.2 Plt Count 249 MPV 11.4 Neut # (Auto) 5.5 Lymph # (Auto) 1.1 L [place] # (Auto) 0.5 Eos # (Auto) 0.0 Baso # (Auto) 0.1 Absolute Nucleated RBC 0.00 Nucleated RBC % 0.0 VBG pH VBG pCO2 VBG pO2 VBG HCO3 VBG Total CO2 VBG O2 Saturation VBG Base Excess Sodium 134 L Potassium 3.9 Chloride 100 L Carbon Dioxide 26 Anion Gap 8.0 BUN 28 H Creatinine 1.0 Estimated GFR (MDRD) 77 L Glucose 251 H POC Whole Bld Glucose 293 H Calcium 9.8 Magnesium 2.1 Total Bilirubin 0.8 AST 19 ALT 20 Alkaline Phosphatase 61 Troponin I High Sens Total Protein 7.0 Albumin 4.2 Globulin 2.8 Albumin/Globulin Ratio 1.5 Lipase 31 TSH Thyroxine (T4) Urine Color Urine Clarity Urine pH Ur Specific [place] Urine Protein Urine Glucose (UA) Urine Ketones Urine Occult Blood Urine Nitrite Urine Bilirubin Urine Urobilinogen Ur Leukocyte Esterase Ur Microscopic Review Urine Culture Comments Serum Ketones NEGATIVE 11/02/19 11/02/19 11/02/19 14:27 14:27 14:27 WBC RBC Hgb Hct MCV MCH MCHC RDW Plt Count MPV Neut # (Auto) Lymph # (Auto) [place] # (Auto) Eos # (Auto) Baso # (Auto) Absolute Nucleated RBC Nucleated RBC % VBG pH 7.370 VBG pCO2 38.6 L VBG pO2 38.0 VBG HCO3 21.8 L VBG Total CO2 23.0 L VBG O2 Saturation 71.3 VBG Base Excess -3.1 L Sodium Potassium Chloride Carbon Dioxide Anion Gap BUN Creatinine Estimated GFR (MDRD) Glucose POC Whole Bld Glucose Calcium Magnesium Total Bilirubin AST ALT Alkaline Phosphatase Troponin I High Sens 2.3 Total Protein Albumin Globulin Albumin/Globulin Ratio Lipase TSH 0.68 Thyroxine (T4) 8.36 Urine Color Urine Clarity Urine pH Ur Specific [place] Urine Protein Urine Glucose (UA) Urine Ketones Urine Occult Blood Urine Nitrite Urine Bilirubin Urine Urobilinogen Ur Leukocyte Esterase Ur Microscopic Review Urine Culture Comments Serum Ketones 11/02/19 15:10 WBC RBC Hgb Hct MCV MCH MCHC RDW Plt Count MPV Neut # (Auto) Lymph # (Auto) [place] # (Auto) Eos # (Auto) Baso # (Auto) Absolute Nucleated RBC Nucleated RBC % VBG pH VBG pCO2 VBG pO2 VBG HCO3 VBG Total CO2 VBG O2 Saturation VBG Base Excess Sodium Potassium Chloride Carbon Dioxide Anion Gap BUN Creatinine Estimated GFR (MDRD) Glucose POC Whole Bld Glucose Calcium Magnesium Total Bilirubin AST ALT Alkaline Phosphatase Troponin I High Sens Total Protein Albumin Globulin Albumin/Globulin Ratio Lipase TSH Thyroxine (T4) Urine Color YELLOW Urine Clarity CLEAR Urine pH 5.0 Ur Specific [place] 1.020 Urine Protein NEGATIVE Urine Glucose (UA) >=1000 H Urine Ketones NEGATIVE Urine Occult Blood NEGATIVE Urine Nitrite NEGATIVE Urine Bilirubin NEGATIVE Urine Urobilinogen 0.2 (NORMAL) Ur Leukocyte Esterase NEGATIVE Ur Microscopic Review NOT INDICATED Urine Culture Comments NOT INDICATED Serum Ketones - Rads (name of study) CXR Radiology: Final report received (No acute cardiopulmonary process demonstrated radiographically.) PD MEDICAL DECISION MAKING - ED course Complexity details: reviewed results, considered differential, d/w patient ED course: 54-year-old insulin-dependent diabetic male presents to the emergency department for evaluation of blood sugars that he reports were too high to read at home. He states that he has vomited 4 times. Over the course of today he has taken 80 units of his insulin. - On presentation to the emergency department his blood sugars are in the 290s. Initial evaluation of labs reveal no serum ketones. Venous blood gas shows a pH greater than 7.3. He has no significant base deficit. He does not appear to be in DKA. - This gentleman did report 2 days of a dry cough. Chest x-ray shows no acute cardiopulmonary process. His breath sounds are relatively clear and there is no hypoxia. No findings to suggest a pneumonia. He did report recent travel to [place] via airplane. We do have pending COVID-19 testing. - ECG is sinus without ischemic changes. High sensitivity troponin is negative. he denies chest pain/pressure - This gentleman also reports that he has had some dysuria for 2 days. His urine does not show any markers of infection. -At this time he appears very well. Despite mild hypertension his vital signs are otherwise normal. He is not tachypneic. He is not tachycardic. He has no fevers or leukocytosis. The etiology of the spike in his blood sugars is not clear to me at this time. He does report adequate insulin at home. - I have recommended that he check his sugars more closely over the next few days. I have also recommended that he schedule a follow-up appointment with his primary care provider very soon. It was also advised that he see his film cleaner in [place] in follow-up. I have advised that if he develops fevers, has another spike in blood sugars, develops belly pain uncontrolled vomiting or feels that his sugars are not well controlled to return for a second evaluation Departure - Departure Disposition: 01 Home, Self Care Clinical Impression: Hyperglycemia without ketosis, Hyperglycemia Condition: Stable Record reviewed to determine appropriate education?: Yes Instructions: Hyperglycemia Follow-Up: FRANCISCO KIM ARNP [Primary Care Provider] - Comments: Ed your blood sugars today in the emergency department have been between 250 and 290. Your chest x-ray does not show any signs of infection. Your urine also shows no signs of infection. Your labs do not indicate that you are in DKA. It is not clear to us at this time why you have had the spike in your blood sugars but you are stable to be discharged home. I would recommend that you check your blood sugars a little more closely over the next 24 to 48 hours. Please call to schedule a very close follow-up with your primary care office as well as follow-up with the film cleaner. If at any time you have fevers, uncontrolled belly pain, uncontrolled vomiting or find another spike in your blood sugars greater than 400 please return to the emergency department for a second look.
[2019-11-02 14:36] LABS: BASOPHILS # (AUTO) 0.1 10^3/uL (0.0-0.1); EOSINOPHILS % (AUTO) 0.4 %; HGB - HEMOGLOBIN 14.1 g/dL (14.0-18.0); LYMPHOCYTES # (AUTO) 1.1 10^3/uL (1.5-3.5); LYMPHOCYTES % (AUTO) 14.9 %; MEAN CORPUSCULAR HEMOGLOBIN 30.9 pg (27.0-31.0); MEAN CORPUSCULAR HGB CONC 34.6 g/dL (32.0-36.0); MEAN CORPUSCULAR VOLUME 89.3 fL (80.0-94.0); MEAN PLATELET VOLUME 11.4 fL (7.4-11.4); MONOCYTES # (AUTO) 0.5 10^3/uL (0.0-1.0); MONOCYTES % (AUTO) 7.4 %; NEUTROPHILS # (AUTO) 5.5 10^3/uL (1.5-6.6); PLT - PLATELET COUNT 249 10^3/uL (130-450); RED BLOOD COUNT 4.57 10^6/uL (4.70-6.10); RED CELL DISTRIBUTION WIDTH 12.2 % (12.0-15.0); WHITE BLOOD COUNT 7.2 x10^3/uL (4.8-10.8)
[2019-11-02 14:38] LABS: VBG BASE EXCESS -3.1 mmol/L (-2 - +2); VBG PCO2 38.6 mmHg (41-51); VBG PH 7.37 (7.31-7.41)
[2019-11-02] MEDS: SODIUM CHLORIDE 0.9% 1,000 ML IV STA (14:40)
[2019-11-02 14:47] LABS: KETONES, SERUM (ACETEST) NEGATIVE (NEGATIVE)
[2019-11-02 14:51] LABS: ALBUMIN 4.2 g/dL (3.2-5.5); ALBUMIN/GLOBULIN RATIO 1.5 (1.0-2.2); ALKALINE PHOSPHATASE 61 IU/L (42-121); ALT ALANINE AMINOTRANSFERASE 20 IU/L (10-60); AST ASPARTATE AMINOTRANSFERASE 19 IU/L (10-42); BILIRUBIN,TOTAL 0.8 mg/dL (0.2-1.0); BUN - BLOOD UREA NITROGEN 28 mg/dL (6-20); CALCIUM 9.8 mg/dL (8.5-10.3); CARBON DIOXIDE - CO2 26 mmol/L (21-32); CHLORIDE 100 mmol/L (101-111); GLUCOSE 251 mg/dL (70-100); LIPASE 31 U/L (22-51); MAGNESIUM 2.1 mg/dL (1.7-2.8); SODIUM 134 mmol/L (135-145)
[2019-11-02 15:04] LABS: T4 (THYROXINE) 8.36 ug/dL (6.09-12.23)
--- NOTE | 2019-11-02 15:06 | XRAY Report ---
PROCEDURE: Chest 1 View X-Ray INDICATIONS: Chest pain TECHNIQUE: One view of the chest was acquired. COMPARISON: 04/30/2019 FINDINGS: Surgical changes and devices: None. Lungs and pleura: No pleural effusions or pneumothorax. Lungs are clear. Mediastinum: Mediastinal contours appear normal. Heart size is normal. Bones and chest wall: No suspicious bony lesions. Overlying soft tissues appear unremarkable. IMPRESSION: No acute cardiopulmonary process demonstrated radiographically. Reviewed by: Adryan Cornejo MD on 11/02/2019 3:05 PM PDT Approved by: Adryan Cornejo MD on 11/02/2019 3:05 PM PDT Station ID: [id number]
[2019-11-02 15:08] LABS: THYROID STIMULATING HORMONE 0.68 uIU/mL (0.34-5.60)
[2019-11-02 15:25] LABS: BILIRUBIN,URINE NEGATIVE (NEGATIVE); GLUCOSE, URINE (UA) >=1000 mg/dL (NEGATIVE); KETONES,URINE (UA) NEGATIVE (NEGATIVE); LEUKOCYTE ESTERASE, URINE NEGATIVE (NEGATIVE); NITRITE,URINE NEGATIVE (NEGATIVE); OCCULT BLOOD,URINE NEGATIVE (NEGATIVE); PROTEIN,URINE NEGATIVE (NEGATIVE); UROBILINOGEN,URINE 0.2 (NORMAL) E.U./dL (NORMAL)
[2019-11-02 15:28] LABS: CLARITY,URINE CLEAR (CLEAR)
[2019-11-02 16:24] VITALS: BP 118/71
== END 2019-11-02 16:23 | disposition home or self-care (01) ==
LOC: ED 13:59
DX: E10.65 Type 1 diabetes mellitus with hyperglycemia (principal); I10 Essential (primary) hypertension; R05 Cough; Z20.828 Contact with and (suspected) exposure to other viral communicable diseases; R30.0 Dysuria; R11.10 Vomiting, unspecified; Z86.73 Personal history of transient ischemic attack (TIA), and cerebral infarction without residual deficits; Z79.02 Long term (current) use of antithrombotics/antiplatelets; Z79.82 Long term (current) use of aspirin
CPT/HCPCS: 36415; 71045; 80053; 81003; 82009; 82803; 83690; 83735; 84436; 84443; 84484; 85025; 93005; 96360; 99284; U0004; 81001; 87086

== ENCOUNTER 2020-01-27 00:43 | Outpatient (CLI) | payer MEDICARE | END 2020-01-27 00:44 | disposition EMS.NT | LOC: EMS 00:43 | PROVIDERS: ATTEND Surgery | DX: Z03.89 Encounter for observation for other suspected diseases and conditions ruled out (principal) ==

== ENCOUNTER 2020-02-27 09:31 | Outpatient (CLI) | payer MEDICARE | END 2020-02-27 09:32 | disposition critical access hospital (66) | LOC: EMS 09:31 | PROVIDERS: ATTEND Surgery | DX: R11.2 Nausea with vomiting, unspecified (principal); R61 Generalized hyperhidrosis; R68.83 Chills (without fever) | CPT/HCPCS: A0425; A0429 ==

== ENCOUNTER 2020-02-27 10:14 | Emergency (ER) | payer MEDICARE ==
[2020-02-27] MEDS ORDERED: ONDANSETRON 4 MG/2 ML VIAL IVP STA (10:26)
[2020-02-27] MEDS ORDERED: SODIUM CHLORIDE 0.9% 1,000 ML IV STA ×2 (10:26→12:40)
[2020-02-27 10:35] LABS: BASOPHILS # (AUTO) 0.1 10^3/uL (0.0-0.1); BASOPHILS % (AUTO) 0.6 %; EOSINOPHILS # (AUTO) 0.1 10^3/uL (0.0-0.7); EOSINOPHILS % (AUTO) 0.7 %; LYMPHOCYTES # (AUTO) 1.5 10^3/uL (1.5-3.5); LYMPHOCYTES % (AUTO) 15.3 %; MEAN CORPUSCULAR HGB CONC 33.3 g/dL (32.0-36.0); MEAN PLATELET VOLUME 11.3 fL (7.4-11.4); MONOCYTES # (AUTO) 0.6 10^3/uL (0.0-1.0); MONOCYTES % (AUTO) 6.5 %; NEUTROPHILS # (AUTO) 7.3 10^3/uL (1.5-6.6); NEUTROPHILS % (AUTO) 76.5 %; PLT - PLATELET COUNT 245 10^3/uL (130-450); RED CELL DISTRIBUTION WIDTH 12.1 % (12.0-15.0); WHITE BLOOD COUNT 9.5 x10^3/uL (4.8-10.8)
[2020-02-27 10:49] LABS: ALBUMIN/GLOBULIN RATIO 1.4 (1.0-2.2); BILIRUBIN,TOTAL 0.7 mg/dL (0.2-1.0); CALCIUM 9.3 mg/dL (8.5-10.3); TOTAL PROTEIN 6.9 g/dL (6.7-8.2)
[2020-02-27] MEDS ORDERED: ATROPINE 0.4 MG/ML VIAL IVP ONE (11:08)
[2020-02-27 13:42] LABS: BILIRUBIN,URINE NEGATIVE (NEGATIVE); GLUCOSE, URINE (UA) NEGATIVE (NEGATIVE); KETONES,URINE (UA) 15 mg/dL (NEGATIVE); LEUKOCYTE ESTERASE, URINE NEGATIVE (NEGATIVE); NITRITE,URINE NEGATIVE (NEGATIVE); OCCULT BLOOD,URINE NEGATIVE (NEGATIVE); PROTEIN,URINE NEGATIVE (NEGATIVE); UROBILINOGEN,URINE 0.2 (NORMAL) E.U./dL (NORMAL)
[2020-02-27 13:50] LABS: CLARITY,URINE CLEAR (CLEAR)
--- NOTE | 2020-02-27 14:54 | ED Physician Documentation ---
History of Present Illness - Stated complaint Stated Complaint: N/V BACK PX - Chief complaint Chief Complaint: Abd Pain - History obtained from History obtained from: Patient - Additonal information Additional information: Patient comes emergency department with chief complaint of nausea and vomiting and diaphoresis. The patient began feeling ill this morning and noticed this especially when he got up to go to the bathroom. He states he suddenly began to sweat and feel very nauseated. He began vomiting and has vomited nonstop ever since. He states that he just feels generally weak. No diarrhea. He denies fevers, but does have chills. He states that he has not had any sick contacts that he knows of. The patient is a diabetic, but medics report that his sugar was 86 in route. Patient has not had any changes to his insulin regimen recently. He has no history of PR. No other complaints at this time. Review of Systems Ten Systems: 10 systems reviewed and negative Constitutional: reports: Chills, Sweats. denies: Fever, Myalgias Eyes: reports: Reviewed and negative Ears: reports: Reviewed and negative Nose: reports: Reviewed and negative Throat: reports: Reviewed and negative Cardiac: reports: Reviewed and negative Respiratory: reports: Reviewed and negative GI: reports: Nausea, Vomiting. denies: Abdominal Pain, Diarrhea : reports: Reviewed and negative Skin: reports: Reviewed and negative Musculoskeletal: reports: Reviewed and negative Neurologic: reports: Reviewed and negative Psychiatric: reports: Reviewed and negative Endocrine: reports: Reviewed and negative Immunocompromised: reports: Reviewed and negative PD PAST MEDICAL HISTORY - Past Medical History Past Medical History: Yes Cardiovascular: Hypertension, High cholesterol, Other Respiratory: Pneumonia Neuro: CVA, Other Endocrine/Autoimmune: Type 1 diabetes GI: GERD, Ulcers, Colon polyps : None HEENT: None Psych: None Musculoskeletal: None, Chronic back pain Derm: None - Past Surgical History Past Surgical History: Yes General: Colonoscopy Ortho: Carpal Tunnel surgery HEENT: Other - Present Medications Home Medications: Ambulatory Orders Medication Instructions Recorded Confirmed Levothyroxine [Synthroid] 125 mcg PO QDAC 09/02/13 03/20/19 Insulin Lispro [Humalog] 0 - 20 units SQ TIDWM 01/29/16 03/20/19 Mirtazapine 45 mg PO QPM 07/02/18 03/20/19 Insulin NPH Human [NovoLIN N] 30 units SUBQ BID 03/20/19 03/20/19 Ondansetron Odt [Zofran] 4 mg TL Q6H PRN #10 tablet 02/27/20 - Allergies Allergies/Adverse Reactions: Allergies Allergy/AdvReac Type Severity Reaction Status Date / Time omeprazole Allergy Intermediate Nausea Verified 11/02/19 14:06 codeine AdvReac Severe Dizziness Verified 11/02/19 14:06 doxycycline AdvReac Intermediate Dizziness Verified 11/02/19 14:06 - Social History Does the pt smoke?: No Smoking Status: Never smoker Does the pt drink ETOH?: No Does the pt have substance abuse?: No - Immunizations Immunizations are current?: Yes - POLST Patient has POLST: No PD ED PE NORMAL - Vitals Vital signs reviewed: Yes - General General: Alert and oriented X 3, Well developed/nourished, Other (Appears very uncomfortable, clutching a vomit bag and repeatedly retching.) - HEENT HEENT: Atraumatic, PERRL, EOMI, Moist mucous membranes - Neck Neck: Supple, no meningeal sign - Cardiac Cardiac: RRR, No murmur, Strong equal pulses - Respiratory Respiratory: No respiratory distress, Clear bilaterally - Abdomen Abdomen: Soft, Non tender, Non distended - Back Back: No CVA TTP - Derm Derm: Normal color, Other (Moderate diaphoresis.) - Extremities Extremities: No deformity, No edema, No calf tenderness / cord - Neuro Neuro: Alert and oriented X 3, oracle developer 2-12 intact, No motor deficit, No sensory deficit, Normal speech - Psych Psych: Normal mood, Normal affect Results - Vitals Vitals: Vital Signs - 24 hr 02/27/20 02/27/20 02/27/20 10:10 11:00 11:45 Temperature 35.7 C L Heart Rate 44 L 41 L 54 L Respiratory 18 13 Rate Blood Pressure 173/98 H 131/73 H O2 Saturation 99 97 Oxygen O2 Source [Without Activity] Room air O2 Source Room air - EKG (time done) 1058 Rate: Rate (enter#) (49) Rhythm: Sinus bradycardia [place]: Normal Intervals: Normal [place] QRS: Normal Ischemia: Normal ST segments. No: T wave inversion Compare to prior EKG: Old EKG unavailable Computer interpretation: Agree with computer - Labs Labs: Laboratory Tests 12/02/27/20 02/27/20 10:30 10:30 10:30 WBC 9.5 RBC 5.00 Hgb 15.0 Hct 45.0 MCV 90.0 MCH 30.0 MCHC 33.3 RDW 12.1 Plt Count 245 MPV 11.3 Neut # (Auto) 7.3 H Lymph # (Auto) 1.5 [place] # (Auto) 0.6 Eos # (Auto) 0.1 Baso # (Auto) 0.1 Absolute Nucleated RBC 0.00 Nucleated RBC % 0.0 Sodium 138 Potassium 3.5 Chloride 103 Carbon Dioxide 24 Anion Gap 11.0 BUN 17 Creatinine 1.0 Estimated GFR (MDRD) 77 L Glucose 127 H Lactic Acid Calcium 9.3 Total Bilirubin 0.7 AST 28 ALT 22 Alkaline Phosphatase 60 Troponin I High Sens < 2.3 L Total Protein 6.9 Albumin 4.0 Globulin 2.9 Albumin/Globulin Ratio 1.4 Lipase 51 Urine Color Urine Clarity Urine pH Ur Specific [place] Urine Protein Urine Glucose (UA) Urine Ketones Urine Occult Blood Urine Nitrite Urine Bilirubin Urine Urobilinogen Ur Leukocyte Esterase Ur Microscopic Review Urine Culture Comments 02/27/20 02/27/20 11:15 12:54 WBC RBC Hgb Hct MCV MCH MCHC RDW Plt Count MPV Neut # (Auto) Lymph # (Auto) [place] # (Auto) Eos # (Auto) Baso # (Auto) Absolute Nucleated RBC Nucleated RBC % Sodium Potassium Chloride Carbon Dioxide Anion Gap BUN Creatinine Estimated GFR (MDRD) Glucose Lactic Acid 1.6 Calcium Total Bilirubin AST ALT Alkaline Phosphatase Troponin I High Sens Total Protein Albumin Globulin Albumin/Globulin Ratio Lipase Urine Color YELLOW Urine Clarity CLEAR Urine pH 6.0 Ur Specific [place] >=1.030 H Urine Protein NEGATIVE Urine Glucose (UA) NEGATIVE Urine Ketones 15 H Urine Occult Blood NEGATIVE Urine Nitrite NEGATIVE Urine Bilirubin NEGATIVE Urine Urobilinogen 0.2 (NORMAL) Ur Leukocyte Esterase NEGATIVE Ur Microscopic Review NOT INDICATED Urine Culture Comments NOT INDICATED PD MEDICAL DECISION MAKING - ED course Complexity details: reviewed results, re-evaluated patient, considered differential, d/w patient ED course: The patient appeared very uncomfortable upon arrival, and was immediately given Zofran and started on IV fluids. His blood pressure was normal to elevated, and he was afebrile. The patient was found to have a heart rate that fluctuated between the 40s and the low 70s, but appeared to be sinus rhythm. The patient was noted twice to have brief syncopal episodes when his heart rate went down to 40. The patient stated he just felt very "tired". The patient was given 0.5 mg of atropine IV. He did not have any further episodes of bradycardia, and appeared much better overall. After napping in the emergency department while waiting for his results come back, the patient was found to be sitting up is in bed, with good color, no sweating, playing a game on his phone. He reported having no nausea and no lightheadedness. The patient was not on any medications that should cause bradycardia, and given the episodic nature of the bradycardia, I suspected a vagal reaction. The patient was advised regarding this. He was able to tolerate ice chips in the emergency department and felt he was stable for discharge home, as all his labs, including white blood cell count, troponin, and lactic acid level were unremarkable. The remainder of his labs were also unremarkable. His EKG did not show a STEMI and was consistent with a mild sinus bradycardia. We have discussed home management of the symptoms, as well as the usual indications for return. Departure - Departure Disposition: 01 Home, Self Care Clinical Impression: Vagal reaction, Bradycardia Vomiting Qualifiers: Vomiting type: bilious vomiting Nausea presence: with nausea Qualified Code(s): R11.14 - Bilious vomiting Condition: Stable Instructions: ED Nausea Vomiting, ED Syncope Vasovagal Prescriptions: Ondansetron Odt [Zofran] 4 mg TL Q6H PRN #10 tablet PRN Reason: Nausea / Vomiting Comments: Your labs overall look great. Your blood sugar has remained within a good range your stay here and your EKG shows a slightly decreased heart rhythm but otherwise, it looks great. You have had some episodes of mildly slowed heart rate, prior to getting your nausea and vomiting under control. Since we have hydrated you with IV fluids and since your nausea has resolved, your heart rate is stabilized. There is no evidence of a serious or emergent condition causing your symptoms today. Your white blood cell count is normal, your lactic acid, a sepsis marker, is also normal, and the troponin, which looks for heart attack, is also normal. Most likely, you have a viral illness that is causing your nausea and vomiting. We have been seeing a lot of cases of this lately, and most likely, you have picked this up. If you develop chest pain or shortness of breath, or if you have further fainting episodes at home outside of being nauseated and vomiting, then you will need to have further evaluation, as soon as possible. Please take the nausea medicine as needed, and have only clear liquids for the rest of the day and night. If you are feeling better in the morning, you may start to slowly get back to regular eating.
[2020-02-27 15:22] VITALS: BP 142/69
== END 2020-02-27 15:22 | disposition home or self-care (01) ==
LOC: EDUNIT# → ED 10:14
DX: R00.1 Bradycardia, unspecified (principal); R11.14 Bilious vomiting; E10.9 Type 1 diabetes mellitus without complications; Z79.4 Long term (current) use of insulin; I10 Essential (primary) hypertension; R55 Syncope and collapse
CPT/HCPCS: 36415; 80053; 81001; 81003; 83605; 83690; 84484; 85025; 87086; 93005; 96361; 96374; 96375; 99284

== ENCOUNTER 2020-03-14 17:38 | Outpatient (CLI) | payer MEDICARE ==
--- NOTE | 2020-03-15 09:11 | XRAY Report ---
PROCEDURE: Lumbar Spine 2 View INDICATIONS: LOW BACK PX TECHNIQUE: 3 views of the lumbar spine were acquired. COMPARISON: Similar plain films of the LS-spine 06/25/2018 reviewed. FINDINGS: Bones: 5 [id number] vertebrae are present. There is normal bony alignment except for slight fo arline kyphosis centered at L1 where a moderate previously present compression fracture has not progress ed. No new vertebral body compression fractures. No suspicious bony lesions. Soft tissues: Overlying bowel gas pattern is normal. No suspicious soft tissue calcifications. IMPRESSION: Stable appearance of the lumbosacral spine with reference to June 2018 comparison study . Moderate wedge compression fracture at L1 is stable over time and associated with only a scant degr ee of focal kyphosis as a result. Degenerative disc disease is most prominent at L2-L3 and L5-S1, and there is also facet osteoarthritis prominent at L5-S1. Spinal and foraminal stenosis at L5-S1 is enzo pected. Reviewed by: Trevor Nolen MD on 03/15/2020 9:09 AM PST Approved by: Trevor Nolen MD on 03/15/2020 9:09 AM PST Station ID: [id number]
--- NOTE | 2020-03-15 09:49 | XRAY Report ---
PROCEDURE: Hand 3 View BILAT INDICATIONS: BILATERAL HAND PX TECHNIQUE: 3 views of the hand(s) acquired. COMPARISON: None FINDINGS: Bones: No fractures or dislocations. No suspicious bony lesions. Joint spaces are fairly well-pres erved. No gross bony erosion is seen. Soft tissues: No suspicious soft tissue calcifications. IMPRESSION: Unremarkable radiographic examination of bilateral hands. No gross bony erosive changes are noted. No fracture or dislocation. Reviewed by: Ji Quiñones MD on 03/15/2020 9:48 AM [facility] Approved by: Ji Quiñones MD on 03/15/2020 9:48 AM [facility] Station ID: [id number]
== END 2020-03-14 17:39 | disposition home or self-care (01) ==
LOC: DI.N 17:38
PROVIDERS: ATTEND Family Medicine
DX: M48.56XD Collapsed vertebra, not elsewhere classified, lumbar region, subsequent encounter for fracture with routine healing (principal); M51.36 Other intervertebral disc degeneration, lumbar region; M51.37 Other intervertebral disc degeneration, lumbosacral region; M47.817 Spondylosis without myelopathy or radiculopathy, lumbosacral region; M79.642 Pain in left hand; M79.641 Pain in right hand

== ENCOUNTER 2020-08-11 08:00 | Outpatient (CLI) | payer MEDICARE | END 2020-08-11 23:59 | disposition home or self-care (01) | LOC: LAB.N 08:00 | PROVIDERS: ATTEND Family Medicine | DX: E10.9 Type 1 diabetes mellitus without complications (principal); R42 Dizziness and giddiness | CPT/HCPCS: 82962 ==

== ENCOUNTER 2020-08-11 18:21 | Outpatient (CLI) | payer MEDICARE | END 2020-08-11 18:22 | disposition short-term general hospital (02) | LOC: EMS 18:21 | DX: R55 Syncope and collapse (principal) | CPT/HCPCS: A0425; A0429 ==

== ENCOUNTER 2020-10-03 11:13 | Emergency (ER) | payer MEDICARE ==
--- NOTE | 2020-10-03 12:23 | ED Physician Documentation ---
History of Present Illness - Stated complaint Stated Complaint: RAPID HEART RATE/VOMITING - Chief complaint Chief Complaint: Cardiac - Additonal information Additional information: 55-year-old male presents the emergency department for evaluation of what he believes is an exacerbation of SVT and a syncopal episode. He reports that he is frequently been having feelings of lightheadedness. He was helping a friend pressure wash the house when he felt lightheaded he stepped down off the ladder and could not feel his pulse which he assumed to me and it was too rapid. He was transitioning to a chair where he had a very brief loss of consciousness. He has been evaluated by cardiology at [facility] for concerns of near syncope. He is currently wearing a Holter monitor that has been in place since 05 September. He is not scheduled yet for follow-up with cardiology. He has had an echo and does not know the results. He is unsure the name of his mixer slagman. This time he denies chest pain or shortness of air. Pt is a type I diabetic; reports being brittle. took 25 units of his long Insulin this a.m. and ate a regular breakfast. He denies taking short acting insulin. Review of Systems Constitutional: denies: Fever, Chills Eyes: reports: Reviewed and negative Ears: reports: Reviewed and negative Nose: reports: Reviewed and negative Throat: reports: Reviewed and negative Cardiac: reports: Palpitations. denies: Chest pain / pressure, Pedal edema, Calf pain Respiratory: reports: Reviewed and negative GI: reports: Reviewed and negative : denies: Dysuria, Frequency Skin: denies: Rash, Lesions Musculoskeletal: reports: Reviewed and negative Neurologic: reports: Syncope. denies: Focal weakness, Numbness Endocrine: reports: Reviewed and negative PD PAST MEDICAL HISTORY - Past Medical History Cardiovascular: Hypertension, High cholesterol, Other Respiratory: Pneumonia Neuro: CVA, Other Endocrine/Autoimmune: Type 1 diabetes GI: GERD, Ulcers, Colon polyps : None HEENT: None Psych: None Musculoskeletal: None, Chronic back pain Derm: None - Past Surgical History Past Surgical History: Yes General: Colonoscopy Ortho: Carpal Tunnel surgery HEENT: Other - Present Medications Home Medications: Ambulatory Orders Medication Instructions Recorded Confirmed Levothyroxine [Synthroid] 125 mcg PO QDAC 09/02/13 03/20/19 Insulin Lispro [Humalog] 0 - 20 units SQ TIDWM 01/29/16 03/20/19 Mirtazapine 45 mg PO QPM 07/02/18 03/20/19 Insulin NPH Human [NovoLIN N] 30 units SUBQ BID 03/20/19 03/20/19 Ondansetron Odt [Zofran] 4 mg TL Q6H PRN #10 tablet 02/27/20 - Allergies Allergies/Adverse Reactions: Allergies Allergy/AdvReac Type Severity Reaction Status Date / Time omeprazole Allergy Intermediate Nausea Verified 10/03/20 11:33 codeine AdvReac Severe Dizziness Verified 10/03/20 11:33 doxycycline AdvReac Intermediate Dizziness Verified 10/03/20 11:33 - Social History Does the pt smoke?: No Smoking Status: Never smoker Does the pt drink ETOH?: No Does the pt have substance abuse?: No - Immunizations Immunizations are current?: Yes - POLST Patient has POLST: No PD ED PE NORMAL - General General: Alert and oriented X 3, No acute distress - HEENT HEENT: Atraumatic - Neck Neck: Supple, no meningeal sign - Cardiac Cardiac: RRR, No murmur, No gallop - Respiratory Respiratory: No respiratory distress, Clear bilaterally - Abdomen Abdomen: Normal bowel sounds, Soft, Non tender - Back Back: No CVA TTP, No spinal TTP - Derm Derm: Normal color, No rash Results - Vitals Vitals: Vital Signs - 24 hr 10/03/20 10/03/20 11:21 13:48 Temperature 36.3 C L 35.6 C L Heart Rate 76 65 Respiratory 18 14 Rate Blood Pressure 136/74 H 125/76 O2 Saturation 99 98 Oxygen O2 Source [] Room air O2 Source Room air - EKG (time done) 1311 Rate: Rate (enter#) (63) Rhythm: NSR [place]: Normal Intervals: Normal [place] QRS: Normal Ischemia: Normal ST segments Compare to prior EKG: Unchanged from prior EKG Computer interpretation: Agree with computer - Labs Labs: Laboratory Tests 10/03/20 10/03/20 10/03/20 12:20 12:20 12:20 WBC 5.9 RBC 5.07 Hgb 15.3 Hct 44.7 MCV 88.2 MCH 30.2 MCHC 34.2 RDW 11.9 L Plt Count 227 MPV 11.3 Neut # (Auto) 4.3 Lymph # (Auto) 1.1 L [place] # (Auto) 0.5 Eos # (Auto) 0.1 Baso # (Auto) 0.1 Absolute Nucleated RBC 0.00 Nucleated RBC % 0.0 Sodium 140 Potassium 4.3 Chloride 104 Carbon Dioxide 26 Anion Gap 10.0 BUN 24 H Creatinine 1.1 Estimated GFR (MDRD) 69 L Glucose 48 L* Calcium 9.3 Total Bilirubin 0.9 AST 16 ALT 16 Alkaline Phosphatase 65 Troponin I High Sens 2.3 Total Protein 6.8 Albumin 4.3 Globulin 2.5 Albumin/Globulin Ratio 1.7 Lipase 24 PD MEDICAL DECISION MAKING - ED course Complexity details: reviewed results, re-evaluated patient, d/w patient, d/w family ED course: 55-year-old male who has a history of type 1 diabetes presents the emergency department after syncopal episode. He was concerned that he may have developed SVT as he has a Holter monitor in place. He is being followed up by [facility] cardiology and I have reviewed the records from an echocardiogram and a stress test completed 08/12/2020 which did not show any concerns of myocardial ischemia. His echo showed a normal ejection fraction of nearly 70% with very trace tricuspid regurg only. Screening EKG today is nonischemic and unchanged from p revious. High-sensitivity troponin negative. Here in the emergency department he was found to be profoundly hypoglycemic with a blood sugar of 48 mg/dL. He was given juice and a sandwich with resultant rise in his blood sugar to 100 then 160. Patient reports that he does not typically faint until his sugars get less than 20. He did take long-acting insulin 25 units at night before bed and again this morning when he woke up however he also ate a large breakfast. He reports that since receiving a second Covid vaccine he has had rather brittle sugars that are difficult to control. Screening labs were otherwise unrevealing and he had normal mentation here in the emergency department. He was observed for a number of hours following the initial hypoglycemic event. I have advised that he reduce the long-acting insulin by 30% thus taking only 18 units. I have arranged him to have follow-up with primary care provider October 06 at 1:30 PM. Emergent worrisome return precautions were discussed. Departure - Departure Disposition: Home, Self Care Clinical Impression: Hypoglycemia due to type 1 diabetes mellitus Syncope Qualifiers: Syncope type: unspecified Qualified Code(s): R55 - Syncope and collapse Condition: Stable Record reviewed to determine appropriate education?: Yes Comments: Ed you were seen in the ER today for concerns of a fainting episode. While here in the emergency department your vital signs have been essentially normal. Your heart rate has varied between the 50s and 90s. You have not developed any abnormal rhythms or abnormal beats. Your screening labs did not show concerns with poor blood flow to your heart and were otherwise normal with the exception of a critically low blood sugar of 48. With your history of diabetes this low blood sugar is the most likely cause of your fainting episode. Your stress test and echocardiogram that were completed at [facility] were reviewed and are essentially unremarkable for age. They do note a very mild tricuspid valve regurgitation but this does not likely explain your events. I recommend that you reduce your long-acting insulin dose by at least 30% (take 18 units of long acting only). Please continue to check your blood sugars 6 times a day. If you have any blood glucose less than 90 drink 1 to 2 cups of juice immediately. You are scheduled to see Dr. Mcnally in follow-up at the [place] office on October 06 at 1:30 PM. Please call our clinical staff educator who goes by the first name of Bridgett at [phone] extension [phone] If at any point you have more fainting episodes, develop chest pain or shortness of air please return immediately to the ER for a second look.
[2020-10-03 12:24] LABS: BASOPHILS # (AUTO) 0.1 10^3/uL (0.0-0.1); EOSINOPHILS # (AUTO) 0.1 10^3/uL (0.0-0.7); EOSINOPHILS % (AUTO) 0.8 %; HCT - HEMATOCRIT 44.7 % (42.0-52.0); HGB - HEMOGLOBIN 15.3 g/dL (14.0-18.0); LYMPHOCYTES # (AUTO) 1.1 10^3/uL (1.5-3.5); LYMPHOCYTES % (AUTO) 18.2 %; MEAN CORPUSCULAR HEMOGLOBIN 30.2 pg (27.0-31.0); MEAN CORPUSCULAR HGB CONC 34.2 g/dL (32.0-36.0); MEAN CORPUSCULAR VOLUME 88.2 fL (80.0-94.0); MEAN PLATELET VOLUME 11.3 fL (7.4-11.4); MONOCYTES # (AUTO) 0.5 10^3/uL (0.0-1.0); MONOCYTES % (AUTO) 7.9 %; NEUTROPHILS # (AUTO) 4.3 10^3/uL (1.5-6.6); NEUTROPHILS % (AUTO) 71.9 %; PLT - PLATELET COUNT 227 10^3/uL (130-450); RED BLOOD COUNT 5.07 10^6/uL (4.70-6.10); RED CELL DISTRIBUTION WIDTH 11.9 % (12.0-15.0); WHITE BLOOD COUNT 5.9 x10^3/uL (4.8-10.8)
[2020-10-03 12:41] LABS: ALBUMIN 4.3 g/dL (3.2-5.5); ALBUMIN/GLOBULIN RATIO 1.7 (1.0-2.2); BILIRUBIN,TOTAL 0.9 mg/dL (0.2-1.0); CALCIUM 9.3 mg/dL (8.5-10.3); CREATININE 1.1 mg/dL (0.6-1.2); POTASSIUM 4.3 mmol/L (3.5-5.0); TOTAL PROTEIN 6.8 g/dL (6.7-8.2)
--- NOTE | 2020-10-03 13:15 | XRAY Report ---
PROCEDURE: Chest 1 View X-Ray INDICATIONS: Chest Pain TECHNIQUE: One view of the chest was acquired. COMPARISON: Chest x-ray the 20 FINDINGS: Surgical changes and devices: None. Lungs and pleura: No pleural effusions or pneumothorax. Lungs are clear. Mediastinum: Mediastinal contours appear normal. Heart size is normal. Bones and chest wall: No suspicious bony lesions. Overlying soft tissues appear unremarkable. IMPRESSION: No acute pulmonary process. Reviewed by: Rosio Olmos MD on 10/03/2020 1:14 PM PDT Approved by: Rosio Olmos MD on 10/03/2020 1:14 PM PDT Station ID: [id number]
[2020-10-03 15:19] VITALS: BP 127/78
== END 2020-10-03 15:31 | disposition home or self-care (01) ==
LOC: ED 11:13
DX: R55 Syncope and collapse (principal); E10.649 Type 1 diabetes mellitus with hypoglycemia without coma; Z79.4 Long term (current) use of insulin; I10 Essential (primary) hypertension
CPT/HCPCS: 36415; 80053; 83690; 84484; 85025; 93005; 99284

== ENCOUNTER 2020-10-05 13:22 | Outpatient (CLI) | payer MEDICARE | END 2020-10-05 13:23 | disposition home or self-care (01) | LOC: LAB.N 13:22 | PROVIDERS: ATTEND Family Medicine | DX: I49.5 Sick sinus syndrome (principal); E10.8 Type 1 diabetes mellitus with unspecified complications; I63.9 Cerebral infarction, unspecified; E03.9 Hypothyroidism, unspecified; E78.5 Hyperlipidemia, unspecified; I10 Essential (primary) hypertension ==

== ENCOUNTER 2020-10-05 13:34 | Outpatient (CLI) | payer MEDICARE ==
[2020-10-05 17:43] LABS: BASOPHILS # (AUTO) 0.1 10^3/uL (0.0-0.1); BASOPHILS % (AUTO) 1.1 %; EOSINOPHILS % (AUTO) 0.7 %; HCT - HEMATOCRIT 44.3 % (42.0-52.0); HGB - HEMOGLOBIN 14.7 g/dL (14.0-18.0); LYMPHOCYTES # (AUTO) 1.3 10^3/uL (1.5-3.5); LYMPHOCYTES % (AUTO) 22.2 %; MEAN CORPUSCULAR HEMOGLOBIN 30.1 pg (27.0-31.0); MEAN CORPUSCULAR HGB CONC 33.2 g/dL (32.0-36.0); MEAN CORPUSCULAR VOLUME 90.6 fL (80.0-94.0); MEAN PLATELET VOLUME 12.3 fL (7.4-11.4); MONOCYTES # (AUTO) 0.5 10^3/uL (0.0-1.0); MONOCYTES % (AUTO) 8.6 %; NEUTROPHILS # (AUTO) 3.8 10^3/uL (1.5-6.6); PLT - PLATELET COUNT 217 10^3/uL (130-450); RED BLOOD COUNT 4.89 10^6/uL (4.70-6.10); RED CELL DISTRIBUTION WIDTH 12.1 % (12.0-15.0); WHITE BLOOD COUNT 5.7 x10^3/uL (4.8-10.8)
[2020-10-05 18:14] LABS: ALBUMIN 4.1 g/dL (3.2-5.5); ALBUMIN/GLOBULIN RATIO 1.5 (1.0-2.2); ALKALINE PHOSPHATASE 57 IU/L (42-121); ALT ALANINE AMINOTRANSFERASE 16 IU/L (10-60); AST ASPARTATE AMINOTRANSFERASE 16 IU/L (10-42); BILIRUBIN,TOTAL 0.9 mg/dL (0.2-1.0); BUN - BLOOD UREA NITROGEN 16 mg/dL (6-20); CALCIUM 9.1 mg/dL (8.5-10.3); CARBON DIOXIDE - CO2 26 mmol/L (21-32); CHLORIDE 100 mmol/L (101-111); CHOL/HDL RATIO 4.4 (<5.0); CHOLESTEROL 215 mg/dL; GFR - MDRD 77 (>89); GLUCOSE 269 mg/dL (70-100); HDL CHOLESTEROL 49 mg/dL; LDL CHOLESTEROL,CALCULATED 156 mg/dL; LDL/HDL RATIO 3.2 (<3.6); POTASSIUM 4.6 mmol/L (3.5-5.0); SODIUM 135 mmol/L (135-145); TOTAL PROTEIN 6.8 g/dL (6.7-8.2); TRIGLYCERIDES 48 mg/dL; VLDL CHOLESTEROL 10 mg/dL
[2020-10-05 18:25] LABS: THYROID STIMULATING HORMONE 1.78 uIU/mL (0.34-5.60)
[2020-10-05 18:26] LABS: FREE T3 2.99 pg/mL (2.5-3.9)
[2020-10-05 18:27] LABS: FREE T4 (FREE THYROXINE) 1.13 ng/dL (0.58-1.64)
[2020-10-05 18:32] LABS: CREATININE,URINE 244.5 mg/dL; MICROALBUM/CREATININE RATIO,UR 27.8 ug/mg (<30.0); MICROALBUMIN,URINE 6.8 mg/dL (0-300.0)
[2020-10-05 20:23] LABS: ESTIMATED AVERAGE GLUCOSE 246 mg/dL (70-100); HEMOGLOBIN A1c% 10.2 % (4.27-6.07)
== END 2020-10-05 13:35 | disposition home or self-care (01) ==
LOC: LAB.N 13:34
PROVIDERS: ATTEND Internal Medicine
DX: I49.5 Sick sinus syndrome (principal); E10.8 Type 1 diabetes mellitus with unspecified complications; I63.9 Cerebral infarction, unspecified; E03.9 Hypothyroidism, unspecified; E78.5 Hyperlipidemia, unspecified; I10 Essential (primary) hypertension
CPT/HCPCS: 36415; 80053; 80061; 82043; 82570; 83036; 83721; 84439; 84443; 84481; 85025

== ENCOUNTER 2020-10-06 08:47 | Outpatient (CLI) | payer MEDICARE | END 2020-10-06 08:48 | disposition home or self-care (01) | LOC: LAB.N 08:47 | PROVIDERS: ATTEND Internal Medicine | DX: E10.9 Type 1 diabetes mellitus without complications (principal) | CPT/HCPCS: 36415; 81599; 84681 ==

== ENCOUNTER 2020-10-08 12:54 | Outpatient (CLI) | payer MEDICARE | END 2020-10-08 12:55 | disposition critical access hospital (66) | LOC: EMS 12:54 | DX: R11.2 Nausea with vomiting, unspecified (principal) | CPT/HCPCS: A0425; A0427 ==

== ENCOUNTER 2020-10-08 13:12 | Emergency (ER) | payer MEDICARE ==
[2020-10-08] MEDS ORDERED: SODIUM CHLORIDE 0.9% 1,000 ML IV STA ×2 (13:26→13:27)
[2020-10-08] MEDS ORDERED: ONDANSETRON 4 MG/2 ML VIAL IVP STA (13:26)
--- NOTE | 2020-10-08 13:30 | ED Physician Documentation ---
History of Present Illness - Stated complaint Stated Complaint: HIGH BLOOD SUGAR - History obtained from History obtained from: Patient - History of Present Illness Timing: Today Pain level max: 2 Pain level now: 1 - Additonal information Additional information: Patient is a 55-year-old male who is brought into the emergency department by EMS today for vomiting and high blood sugar. He is a diabetic. Insulin- dependent. He states that he started a new antibiotic, amoxicillin, 2 days ago for a mouth infection after being seen by a dentist. He states that he is having mild crampy abdominal pain. Checked his ketones today and they were high. His blood sugar read high on his glucometer as well. Came in for evaluation. No fevers. No chills. No diarrhea. No constipation. No blood in the stool. No blood in the emesis. Patient has received both of his Covid vaccinations Review of Systems Ten Systems: 10 systems reviewed and negative Constitutional: denies: Fever, Chills Ears: denies: Loss of hearing Nose: denies: Rhinorrhea / runny nose, Congestion Throat: denies: Sore throat Cardiac: denies: Chest pain / pressure, Palpitations GI: reports: Abdominal Pain (crampy, diffuse), Nausea, Vomiting Musculoskeletal: denies: Neck pain, Back pain Neurologic: denies: Headache PD PAST MEDICAL HISTORY - Past Medical History Cardiovascular: Hypertension, High cholesterol, Other Respiratory: Pneumonia Neuro: CVA, Other Endocrine/Autoimmune: Type 1 diabetes GI: GERD, Ulcers, Colon polyps : None HEENT: None Psych: None Musculoskeletal: None, Chronic back pain Derm: None - Past Surgical History Past Surgical History: Yes General: Colonoscopy Ortho: Carpal Tunnel surgery HEENT: Other - Present Medications Home Medications: Ambulatory Orders Medication Instructions Recorded Confirmed Levothyroxine [Synthroid] 125 mcg PO QDAC 09/02/13 03/20/19 Insulin Lispro [Humalog] 0 - 20 units SQ TIDWM 01/29/16 03/20/19 Mirtazapine 45 mg PO QPM 07/02/18 03/20/19 Insulin NPH Human [NovoLIN N] 30 units SUBQ BID 03/20/19 03/20/19 Ondansetron Odt [Zofran] 4 mg TL Q6H PRN #10 tablet 02/27/20 Ondansetron Odt [Zofran] 4 mg TL Q6H PRN #10 tablet 10/08/20 Promethazine [Phenergan] 25 mg PO Q6H PRN #10 tab 10/08/20 clindamycin HCL [Cleocin HCl] 300 mg PO Q6H #40 cap 10/08/20 - Allergies Allergies/Adverse Reactions: Allergies Allergy/AdvReac Type Severity Reaction Status Date / Time omeprazole Allergy Intermediate Nausea Verified 10/08/20 13:24 codeine AdvReac Severe Dizziness Verified 10/08/20 13:24 doxycycline AdvReac Intermediate Dizziness Verified 10/08/20 13:24 - Social History Does the pt smoke?: No Smoking Status: Never smoker Does the pt drink ETOH?: No Does the pt have substance abuse?: No - Immunizations Immunizations are current?: Yes - POLST Patient has POLST: No PD ED PE NORMAL - Vitals Vital signs reviewed: Yes - General General: Alert and oriented X 3, No acute distress, Well developed/nourished - HEENT HEENT: PERRL, Moist mucous membranes - Neck Neck: Supple, no meningeal sign - Cardiac Cardiac: RRR, Strong equal pulses - Respiratory Respiratory: No respiratory distress, Clear bilaterally - Abdomen Abdomen: Soft, Non tender, Non distended - Derm Derm: Warm and dry, No rash - Extremities Extremities: No edema, No calf tenderness / cord - Neuro Neuro: Alert and oriented X 3 - Psych Psych: Normal mood, Normal affect Results - Vitals Vitals: Vital Signs - 24 hr 10/08/20 10/08/20 13:24 15:29 Temperature 37.1 C Heart Rate 52 L 55 L Respiratory 18 17 Rate Blood Pressure 133/74 H 122/70 O2 Saturation 99 98 Oxygen O2 Source [Without Activity] Room air O2 Source Room air - Labs Labs: Laboratory Tests 10/08/20 10/08/20 10/08/20 13:47 13:47 13:47 WBC 7.2 RBC 4.65 L Hgb 14.2 Hct 41.4 L MCV 89.0 MCH 30.5 MCHC 34.3 RDW 11.9 L Plt Count 195 MPV 11.9 H Neut # (Auto) 5.6 Lymph # (Auto) 1.0 L [place] # (Auto) 0.4 Eos # (Auto) 0.0 Baso # (Auto) 0.1 Absolute Nucleated RBC 0.00 Nucleated RBC % 0.0 VBG pH 7.393 VBG pCO2 38.0 L VBG pO2 34.8 VBG HCO3 22.6 L VBG Total CO2 23.8 L VBG O2 Saturation 70.5 VBG Base Excess -1.9 Sodium 136 Potassium 4.3 Chloride 103 Carbon Dioxide 23 Anion Gap 10.0 BUN 20 Creatinine 0.9 Estimated GFR (MDRD) 87 L Glucose 367 H Calcium 8.8 Total Bilirubin 2.0 H AST 15 ALT 17 Alkaline Phosphatase 56 Total Protein 6.1 L Albumin 3.8 Globulin 2.3 Albumin/Globulin Ratio 1.7 Lipase 22 Urine Color Urine Clarity Urine pH Ur Specific [place] Urine Protein Urine Glucose (UA) Urine Ketones Urine Occult Blood Urine Nitrite Urine Bilirubin Urine Urobilinogen Ur Leukocyte Esterase Ur Microscopic Review Urine Culture Comments Serum Ketones SMALL H 10/08/20 14:12 WBC RBC Hgb Hct MCV MCH MCHC RDW Plt Count MPV Neut # (Auto) Lymph # (Auto) [place] # (Auto) Eos # (Auto) Baso # (Auto) Absolute Nucleated RBC Nucleated RBC % VBG pH VBG pCO2 VBG pO2 VBG HCO3 VBG Total CO2 VBG O2 Saturation VBG Base Excess Sodium Potassium Chloride Carbon Dioxide Anion Gap BUN Creatinine Estimated GFR (MDRD) Glucose Calcium Total Bilirubin AST ALT Alkaline Phosphatase Total Protein Albumin Globulin Albumin/Globulin Ratio Lipase Urine Color LIGHT YELLOW Urine Clarity CLEAR Urine pH 6.5 Ur Specific [place] 1.025 Urine Protein NEGATIVE Urine Glucose (UA) >=1000 H Urine Ketones >=80 H Urine Occult Blood NEGATIVE Urine Nitrite NEGATIVE Urine Bilirubin NEGATIVE Urine Urobilinogen 0.2 (NORMAL) Ur Leukocyte Esterase NEGATIVE Ur Microscopic Review NOT INDICATED Urine Culture Comments NOT INDICATED Serum Ketones PD MEDICAL DECISION MAKING - ED course Complexity details: reviewed results, re-evaluated patient, considered differential, d/w patient ED course: Patient is well-appearing, nontoxic. Afebrile. Abdomen is soft, nontender nondistended on serial exam. Nausea well controlled. No DKA. Given IV fluids. Possible that the amoxicillin is making him feel nauseated. We will change this to clindamycin for his dental infection. Given Rocephin IV here. No evidence of sepsis. Blood sugar decreased with insulin. Patient counseled regarding signs and symptoms for which I believe and urgent re-evaluation would be necessary. Patient with good understanding of and agreement to plan and is comfortable going home at this time This document was made in part using voice recognition software. While efforts are made to proofread this document, sound alike and grammatical errors may occur. Departure - Departure Disposition: Home, Self Care Clinical Impression: Hyperglycemia Vomiting Qualifiers: Vomiting type: unspecified Vomiting Intractability: non-intractable Nausea presence: with nausea Qualified Code(s): R11.2 - Nausea with vomiting, unspecified Condition: Good Instructions: ED Nausea Vomiting Follow-Up: your,doctor in 1 week [Other] Prescriptions: clindamycin HCL [Cleocin HCl] 300 mg PO Q6H #40 cap Promethazine [Phenergan] 25 mg PO Q6H PRN #10 tab PRN Reason: Nausea / Vomiting Ondansetron Odt [Zofran] 4 mg TL Q6H PRN #10 tablet PRN Reason: Nausea / Vomiting Comments: We will try changing you from your amoxicillin to clindamycin to see if this helps your vomiting. Drink plenty of fluids. Follow-up with your dentist for further care of your teeth. Continue your insulin at home as well. Return if you worsen
[2020-10-08 13:53] LABS: BASOPHILS # (AUTO) 0.1 10^3/uL (0.0-0.1); BASOPHILS % (AUTO) 0.8 %; EOSINOPHILS % (AUTO) 0.4 %; HCT - HEMATOCRIT 41.4 % (42.0-52.0); HGB - HEMOGLOBIN 14.2 g/dL (14.0-18.0); LYMPHOCYTES % (AUTO) 14.1 %; MEAN CORPUSCULAR HEMOGLOBIN 30.5 pg (27.0-31.0); MEAN CORPUSCULAR HGB CONC 34.3 g/dL (32.0-36.0); MEAN PLATELET VOLUME 11.9 fL (7.4-11.4); MONOCYTES # (AUTO) 0.4 10^3/uL (0.0-1.0); MONOCYTES % (AUTO) 5.7 %; NEUTROPHILS # (AUTO) 5.6 10^3/uL (1.5-6.6); NEUTROPHILS % (AUTO) 78.6 %; PLT - PLATELET COUNT 195 10^3/uL (130-450); RED BLOOD COUNT 4.65 10^6/uL (4.70-6.10); RED CELL DISTRIBUTION WIDTH 11.9 % (12.0-15.0); WHITE BLOOD COUNT 7.2 x10^3/uL (4.8-10.8)
[2020-10-08 13:55] LABS: VBG BASE EXCESS -1.9 mmol/L (-2 - +2); VBG HCO3 22.6 mmol/L (23-28); VBG OXYGEN SATURATION 70.5 % (60-80); VBG PH 7.393 (7.31-7.41); VBG PO2 34.8 mmHg (25-47); VBG TOTAL CO2 23.8 mmol/L (24-29)
[2020-10-08 14:14] LABS: ALBUMIN 3.8 g/dL (3.2-5.5); ALBUMIN/GLOBULIN RATIO 1.7 (1.0-2.2); ALKALINE PHOSPHATASE 56 IU/L (42-121); ALT ALANINE AMINOTRANSFERASE 17 IU/L (10-60); AST ASPARTATE AMINOTRANSFERASE 15 IU/L (10-42); BUN - BLOOD UREA NITROGEN 20 mg/dL (6-20); CALCIUM 8.8 mg/dL (8.5-10.3); CARBON DIOXIDE - CO2 23 mmol/L (21-32); CHLORIDE 103 mmol/L (101-111); CREATININE 0.9 mg/dL (0.6-1.2); GFR - MDRD 87 (>89); GLUCOSE 367 mg/dL (70-100); LIPASE 22 U/L (22-51); POTASSIUM 4.3 mmol/L (3.5-5.0); SODIUM 136 mmol/L (135-145); TOTAL PROTEIN 6.1 g/dL (6.7-8.2)
[2020-10-08 14:22] LABS: KETONES, SERUM (ACETEST) SMALL (NEGATIVE)
[2020-10-08 14:25] LABS: BILIRUBIN,URINE NEGATIVE (NEGATIVE); GLUCOSE, URINE (UA) >=1000 mg/dL (NEGATIVE); KETONES,URINE (UA) >=80 mg/dL (NEGATIVE); LEUKOCYTE ESTERASE, URINE NEGATIVE (NEGATIVE); NITRITE,URINE NEGATIVE (NEGATIVE); OCCULT BLOOD,URINE NEGATIVE (NEGATIVE); PH,URINE 6.5 PH (5.0-7.5); PROTEIN,URINE NEGATIVE (NEGATIVE); UROBILINOGEN,URINE 0.2 (NORMAL) E.U./dL (NORMAL)
[2020-10-08 14:28] LABS: CLARITY,URINE CLEAR (CLEAR)
[2020-10-08] MEDS: INSULIN REGULAR HUMAN 100 UNIT/1 ML 10 ML MDV SUBQ STA ×2 (15:00→15:03)
[2020-10-08] MEDS ORDERED: PROMETHAZINE INJ 25 MG in SODIUM CHLORIDE 0.9% 50 ML IV STA (15:11)
[2020-10-08 16:13] VITALS: BP 122/70
[2020-10-08] MEDS ORDERED: cefTRIAXone 1 GM VIAL IVP STA (16:21)
== END 2020-10-08 16:50 | disposition home or self-care (01) ==
LOC: EDBD → EDUNIT# → ED 13:12
DX: E10.65 Type 1 diabetes mellitus with hyperglycemia (principal); Z79.4 Long term (current) use of insulin; I10 Essential (primary) hypertension
CPT/HCPCS: 36415; 80053; 81003; 82009; 82803; 83690; 85025; 96365; 96375; 99284; J1815; J7040; 81001; 87086

== ENCOUNTER 2020-10-09 08:46 | Outpatient (CLI) | payer MEDICARE ==
[2020-10-09 12:24] LABS: THYROID STIMULATING HORMONE 1.51 uIU/mL (0.34-5.60)
== END 2020-10-09 08:47 | disposition home or self-care (01) ==
LOC: LAB.N 08:46
PROVIDERS: ATTEND Family Medicine
DX: R68.82 Decreased libido (principal)
CPT/HCPCS: 36415; 84270; 84402; 84403; 84443

== ENCOUNTER 2020-11-04 10:32 | Emergency (ER) | payer MEDICARE ==
[2020-11-04] MEDS ORDERED: KETOROLAC 30 MG/ML VIAL IVP STA (10:58)
[2020-11-04] MEDS ORDERED: SODIUM CHLORIDE 0.9% 1,000 ML IV STA (10:58)
--- NOTE | 2020-11-04 11:07 | ED Physician Documentation ---
PD HPI CHEST PAIN - Stated complaint Stated Complaint: , SOA - Chief complaint Chief Complaint: Cardiac - History obtained from History obtained from: Patient - History of Present Illness Timing - onset: Today Timing - onset during: Rest Timing - duration: Minutes Timing - details: Abrupt onset, Still present Pain level max: 10 Pain level now: 7 Quality: Pressure, Pain Location: Substernal, Left chest Radiation: Neck Improved by: Rest Worsened by: Other (nothing) Associated symptoms: Shortness of air, Nausea, Feeling faint / dizzy. No: Diaphoresis, Vomiting Similar symptoms before: Diagnosis (fawn/tachy syndrome) Recently seen: Emergency Dept - Additional information Additional information: 55-year-old type I diabetic male presents to the emergency department today with acute left-sided chest pain radiating to his neck with near syncope and no diaphoresis. He did have some nausea and vomiting associated with it. He reports the nausea and vomiting were initial symptoms he had. He has had prior episodes of tachybradycardia syndrome and he has been in to see the professor of physics at [facility] and has had a monitor placed. He has not been in for follow-up. He had his normal breakfast this morning. Review of Systems Constitutional: denies: Fever Eyes: denies: Decreased vision Ears: denies: Ear pain Nose: denies: Congestion Throat: denies: Sore throat Cardiac: reports: Chest pain / pressure. denies: Palpitations Respiratory: reports: Dyspnea. denies: Cough GI: reports: Nausea, Vomiting. denies: Abdominal Pain, Constipation, Diarrhea : denies: Dysuria, Frequency PD PAST MEDICAL HISTORY - Past Medical History Past Medical History: Yes Cardiovascular: Hypertension, High cholesterol, Other Respiratory: Pneumonia Neuro: CVA, Other Endocrine/Autoimmune: Type 1 diabetes GI: GERD, Ulcers, Colon polyps : None HEENT: None Psych: None Musculoskeletal: None, Chronic back pain Derm: None - Past Surgical History Past Surgical History: Yes General: Colonoscopy Ortho: Carpal Tunnel surgery HEENT: Other - Present Medications Home Medications: Ambulatory Orders Medication Instructions Recorded Confirmed Levothyroxine [Synthroid] 125 mcg PO QDAC 09/02/13 11/04/20 Insulin Lispro [Humalog] 0 - 20 units SQ TIDWM 01/29/16 11/04/20 Mirtazapine 45 mg PO QPM 07/02/18 11/04/20 Insulin NPH Human [NovoLIN N] 20 units SUBQ BID 03/20/19 11/04/20 Atorvastatin Calcium 1 tab PO DAILY 11/04/20 11/04/20 Donepezil [Aricept] 10 mg PO DAILY 11/04/20 11/04/20 Ondansetron Odt [Zofran] 4 mg TL Q6H PRN #10 tablet 11/04/20 Promethazine [Phenergan] 25 mg PO BID 11/04/20 11/04/20 - Allergies Allergies/Adverse Reactions: Allergies Allergy/AdvReac Type Severity Reaction Status Date / Time omeprazole Allergy Intermediate Nausea Verified 11/04/20 11:46 codeine AdvReac Severe Dizziness Verified 11/04/20 11:46 doxycycline AdvReac Intermediate Dizziness Verified 11/04/20 11:46 - Social History Does the pt smoke?: No Smoking Status: Never smoker Does the pt drink ETOH?: No Does the pt have substance abuse?: No - Immunizations Immunizations are current?: Yes - POLST Patient has POLST: No PD ED PE NORMAL - Vitals Vital signs reviewed: Yes (hypertensive ) - General General: No acute distress, Well developed/nourished, Other (The patient is laying with eyes closed and is slow to respond ) - HEENT HEENT: Atraumatic, PERRL, EOMI - Neck Neck: Supple, no meningeal sign, No bony TTP - Cardiac Cardiac: RRR, No murmur - Respiratory Respiratory: No respiratory distress, Clear bilaterally - Abdomen Abdomen: Normal bowel sounds, Soft, Non tender, Non distended, No organomegaly - Back Back: No CVA TTP, No spinal TTP - Derm Derm: Normal color, Warm and dry, No rash - Extremities Extremities: No deformity, No edema - Neuro Neuro: Alert and oriented X 3, vegetable cutter 2-12 intact, No motor deficit, No sensory deficit, Normal speech Eye Opening: Spontaneous Motor: Obeys Commands Verbal: Oriented GCS Score: 15 - Psych Psych: Normal mood, Normal affect Results - Vitals Vitals: Vital Signs - 24 hr 11/04/20 11/04/20 11/04/20 10:35 10:57 11:00 Temperature 36.4 C L Heart Rate 56 L 54 L 52 L Respiratory 16 16 16 Rate Blood Pressure 160/113 H 160/113 H 137/78 H O2 Saturation 99 100 100 08/21/21 08/21/21 08/21/21 11:37 11:52 11:55 Temperature 36.4 C L Heart Rate 47 L 56 L 59 L Respiratory 13 16 16 Rate Blood Pressure 134/86 H 134/86 H O2 Saturation 98 95 94 11/04/20 11/04/20 11/04/20 12:00 15:07 15:30 Temperature Heart Rate 54 L 55 L 51 L Respiratory 16 16 16 Rate Blood Pressure 138/77 H 138/93 H 167/90 H O2 Saturation 96 100 100 Oxygen O2 Source [] Room air O2 Source Room air - EKG (time done) 1041 Rate: Rate (enter#) (53) Rhythm: NSR [place]: RAD Compare to prior EKG: Unchanged from prior EKG (SPT 10-03-20 no sig change) Computer interpretation: Agree with computer 1505 Rate: Rate (enter#) (46) Rhythm: Sinus bradycardia Compare to prior EKG: Changed from prior EKG (SPT earlier today the voltage has decreased and the rate is slower. ) Computer interpretation: Agree with computer - Labs Labs: Laboratory Tests 11/04/20 11/04/20 11/04/20 10:39 10:50 10:50 WBC 6.2 RBC 4.81 Hgb 14.4 Hct 42.9 MCV 89.2 MCH 29.9 MCHC 33.6 RDW 12.4 Plt Count 229 MPV 12.0 H Neut # (Auto) 4.0 Lymph # (Auto) 1.5 [place] # (Auto) 0.6 Eos # (Auto) 0.1 Baso # (Auto) 0.1 Absolute Nucleated RBC 0.00 Nucleated RBC % 0.0 D-Dimer VBG pH VBG pCO2 VBG pO2 VBG HCO3 VBG Total CO2 VBG O2 Saturation VBG Base Excess Sodium 138 Potassium 3.9 Chloride 103 Carbon Dioxide 26 Anion Gap 9.0 BUN 22 H Creatinine 1.0 Estimated GFR (MDRD) 77 L Glucose 337 H POC Whole Bld Glucose 338 H Calcium 9.2 Total Bilirubin 0.8 AST 22 ALT 25 Alkaline Phosphatase 64 Troponin I High Sens B-Natriuretic Peptide Total Protein 6.5 L Albumin 3.8 Globulin 2.7 Albumin/Globulin Ratio 1.4 Lipase 25 Urine Color Urine Clarity Urine pH Ur Specific [place] Urine Protein Urine Glucose (UA) Urine Ketones Urine Occult Blood Urine Nitrite Urine Bilirubin Urine Urobilinogen Ur Leukocyte Esterase Ur Microscopic Review Urine Culture Comments Nasal Adenovirus (PCR) Nasal B. parapertussis DNA (PCR) Nasal Coronavir 229E PCR Nasal Coronavir HKU1 PCR Nasal Coronavir NL63 PCR Nasal Coronavir OC43 PCR Nasal Enterovir/Rhinovir PCR Nasal Influenza B PCR Nasal Influenza A PCR Nasal Parainfluen 1 PCR Nasal Parainfluen 2 PCR Nasal Parainfluen 3 PCR Nasal Parainfluen 4 PCR Nasal RSV (PCR) Nasal B.pertussis DNA PCR Nasal C.pneumoniae (PCR) [place] Human Metapneumo PCR Nasal M.pneumoniae (PCR) Nasal SARS-CoV-2 (PCR) Serum Ketones 11/04/20 11/04/20 11/04/20 10:50 10:50 11:25 WBC RBC Hgb Hct MCV MCH MCHC RDW Plt Count MPV Neut # (Auto) Lymph # (Auto) [place] # (Auto) Eos # (Auto) Baso # (Auto) Absolute Nucleated RBC Nucleated RBC % D-Dimer 647.6 H VBG pH VBG pCO2 VBG pO2 VBG HCO3 VBG Total CO2 VBG O2 Saturation VBG Base Excess Sodium Potassium Chloride Carbon Dioxide Anion Gap BUN Creatinine Estimated GFR (MDRD) Glucose POC Whole Bld Glucose Calcium Total Bilirubin AST ALT Alkaline Phosphatase Troponin I High Sens 2.7 B-Natriuretic Peptide 69 Total Protein Albumin Globulin Albumin/Globulin Ratio Lipase Urine Color Urine Clarity Urine pH Ur Specific [place] Urine Protein Urine Glucose (UA) Urine Ketones Urine Occult Blood Urine Nitrite Urine Bilirubin Urine Urobilinogen Ur Leukocyte Esterase Ur Microscopic Review Urine Culture Comments Nasal Adenovirus (PCR) Nasal B. parapertussis DNA (PCR) Nasal Coronavir 229E PCR Nasal Coronavir HKU1 PCR Nasal Coronavir NL63 PCR Nasal Coronavir OC43 PCR Nasal Enterovir/Rhinovir PCR Nasal Influenza B PCR Nasal Influenza A PCR Nasal Parainfluen 1 PCR Nasal Parainfluen 2 PCR Nasal Parainfluen 3 PCR Nasal Parainfluen 4 PCR Nasal RSV (PCR) Nasal B.pertussis DNA PCR Nasal C.pneumoniae (PCR) [place] Human Metapneumo PCR Nasal M.pneumoniae (PCR) Nasal SARS-CoV-2 (PCR) Serum Ketones 11/04/20 11/04/20 11/04/20 13:02 13:02 13:47 WBC RBC Hgb Hct MCV MCH MCHC RDW Plt Count MPV Neut # (Auto) Lymph # (Auto) [place] # (Auto) Eos # (Auto) Baso # (Auto) Absolute Nucleated RBC Nucleated RBC % D-Dimer VBG pH VBG pCO2 VBG pO2 VBG HCO3 VBG Total CO2 VBG O2 Saturation VBG Base Excess Sodium Potassium Chloride Carbon Dioxide Anion Gap BUN Creatinine Estimated GFR (MDRD) Glucose POC Whole Bld Glucose Calcium Total Bilirubin AST ALT Alkaline Phosphatase Troponin I High Sens 2.4 B-Natriuretic Peptide Total Protein Albumin Globulin Albumin/Globulin Ratio Lipase Urine Color YELLOW Urine Clarity CLEAR Urine pH 6.5 Ur Specific [place] 1.015 Urine Protein NEGATIVE Urine Glucose (UA) >=1000 H Urine Ketones 15 H Urine Occult Blood NEGATIVE Urine Nitrite NEGATIVE Urine Bilirubin NEGATIVE Urine Urobilinogen 0.2 (NORMAL) Ur Leukocyte Esterase NEGATIVE Ur Microscopic Review NOT INDICATED Urine Culture Comments NOT INDICATED Nasal Adenovirus (PCR) NOT DETECTED Nasal B. parapertussis DNA (PCR) NOT DETECTED Nasal Coronavir 229E PCR NOT DETECTED Nasal Coronavir HKU1 PCR NOT DETECTED Nasal Coronavir NL63 PCR NOT DETECTED Nasal Coronavir OC43 PCR NOT DETECTED Nasal Enterovir/Rhinovir PCR NOT DETECTED Nasal Influenza B PCR NOT DETECTED Nasal Influenza A PCR NOT DETECTED Nasal Parainfluen 1 PCR NOT DETECTED Nasal Parainfluen 2 PCR NOT DETECTED Nasal Parainfluen 3 PCR NOT DETECTED Nasal Parainfluen 4 PCR NOT DETECTED Nasal RSV (PCR) NOT DETECTED Nasal B.pertussis DNA PCR NOT DETECTED Nasal C.pneumoniae (PCR) NOT DETECTED Severo Human Metapneumo PCR NOT DETECTED Nasal M.pneumoniae (PCR) NOT DETECTED Nasal SARS-CoV-2 (PCR) NOT DETECTED Serum Ketones 11/04/20 11/04/20 14:40 14:40 WBC RBC Hgb Hct MCV MCH MCHC RDW Plt Count MPV Neut # (Auto) Lymph # (Auto) [place] # (Auto) Eos # (Auto) Baso # (Auto) Absolute Nucleated RBC Nucleated RBC % D-Dimer VBG pH 7.356 VBG pCO2 50.8 VBG pO2 26.3 VBG HCO3 27.8 VBG Total CO2 29.4 H VBG O2 Saturation 52.4 L VBG Base Excess 1.4 Sodium Potassium Chloride Carbon Dioxide Anion Gap BUN Creatinine Estimated GFR (MDRD) Glucose POC Whole Bld Glucose Calcium Total Bilirubin AST ALT Alkaline Phosphatase Troponin I High Sens B-Natriuretic Peptide Total Protein Albumin Globulin Albumin/Globulin Ratio Lipase Urine Color Urine Clarity Urine pH Ur Specific [place] Urine Protein Urine Glucose (UA) Urine Ketones Urine Occult Blood Urine Nitrite Urine Bilirubin Urine Urobilinogen Ur Leukocyte Esterase Ur Microscopic Review Urine Culture Comments Nasal Adenovirus (PCR) Nasal B. parapertussis DNA (PCR) Nasal Coronavir 229E PCR Nasal Coronavir HKU1 PCR Nasal Coronavir NL63 PCR Nasal Coronavir OC43 PCR Nasal Enterovir/Rhinovir PCR Nasal Influenza B PCR Nasal Influenza A PCR Nasal Parainfluen 1 PCR Nasal Parainfluen 2 PCR Nasal Parainfluen 3 PCR Nasal Parainfluen 4 PCR Nasal RSV (PCR) Nasal B.pertussis DNA PCR Nasal C.pneumoniae (PCR) [place] Human Metapneumo PCR Nasal M.pneumoniae (PCR) Nasal SARS-CoV-2 (PCR) Serum Ketones NEGATIVE - Rads (name of study) chest Radiology: Prelim report reviewed (Impression: No acute acute abnormality is seen on this portable chest study.), EMP read indepedently, See rad report CTA chest Radiology: Prelim report reviewed (Impression: No pulmonary embolus or other acute finding in the chest. Coronary atherosclerosis), EMP read indepedently, See rad report Procedures - IVC sono (time) 1040 Bedside IVC sono: IVC measures (cm) (2.45), IVC collapsed c insp (cm) (complete), Dehydration (est <1 liter deficit) PD MEDICAL DECISION MAKING - ED course Complexity details: reviewed old records, reviewed results, re-evaluated patient, considered differential, d/w patient ED course: 55-year-old diabetic male presents emerge department with crushing left-sided chest pain radiating to his neck. He has a nonischemic appearing electrocardiogram without evidence of ectopy. He does have a collapsing inferio r vena cava which is generous in size to start. He is not significantly dehydrated. He does have a blood sugar of 338. We were able to measure his troponin twice both numbers were extremely low and we were able to repeat his electrocardiogram which appears unchanged. My's concern with this patient was for coronary disease and we were not able to demonstrate this today on the testing we did and we went a bit further and did his CT angiogram of his chest with concerns of pulmonary embolism and this was a negative study it did however demonstrate presence of calcifications in the coronary arteries. For this reason I called the on-call doctor for Dr. Deana Munoz who reassured me that the patient's nuclear stress test was negative last month and he does have follow-up to have a loop recorder placed for his syncopal episodes. I reviewed the patient's history again with him and it appears that nausea and vomiting were the first signs he had this morning of something admiss. He has had a dozen episodes of vomiting since December. These are usually short-lived. I suspect he had a vasovagal reaction associated with this and may have had his chest pain associated with this as well. Patient is feeling well now and I will have him follow-up with Dr. Leblanc. I have discussed with him that he does likely have some coronary disease and at some point he will likely need something done about it. I did discuss with him cannabis hyperemesis and it appears he is taking some cannabis with CBD and it at the request of his doctor for ADHD and he is not doing much in the way of THC. His episodes of vomiting have been short-lived and are not consistent with cannabis hyperemesis. Departure - Departure Disposition: 01 Home, Self Care Clinical Impression: Vagal reaction Chest pain Qualifiers: Chest pain type: unspecified Qualified Code(s): R07.9 - Chest pain, unspecified Condition: Stable Instructions: ED Chest Pain Atypical Unkn Cause, ED Syncope Vasovagal Follow-Up: Raj Leblanc MD [Physician No Access] - Prescriptions: Ondansetron Odt [Zofran] 4 mg TL Q6H PRN #10 tablet PRN Reason: Nausea / Vomiting Discharge Date/Time: 11/04/20 15:53
[2020-11-04 11:12] LABS: BASOPHILS # (AUTO) 0.1 10^3/uL (0.0-0.1); BASOPHILS % (AUTO) 0.8 %; EOSINOPHILS # (AUTO) 0.1 10^3/uL (0.0-0.7); EOSINOPHILS % (AUTO) 1.1 %; HCT - HEMATOCRIT 42.9 % (42.0-52.0); HGB - HEMOGLOBIN 14.4 g/dL (14.0-18.0); LYMPHOCYTES # (AUTO) 1.5 10^3/uL (1.5-3.5); LYMPHOCYTES % (AUTO) 23.9 %; MEAN CORPUSCULAR HEMOGLOBIN 29.9 pg (27.0-31.0); MEAN CORPUSCULAR HGB CONC 33.6 g/dL (32.0-36.0); MEAN CORPUSCULAR VOLUME 89.2 fL (80.0-94.0); MONOCYTES # (AUTO) 0.6 10^3/uL (0.0-1.0); MONOCYTES % (AUTO) 9.9 %; PLT - PLATELET COUNT 229 10^3/uL (130-450); RED BLOOD COUNT 4.81 10^6/uL (4.70-6.10); RED CELL DISTRIBUTION WIDTH 12.4 % (12.0-15.0); WHITE BLOOD COUNT 6.2 x10^3/uL (4.8-10.8)
--- NOTE | 2020-11-04 11:25 | XRAY Report ---
PROCEDURE: Chest 1 View X-Ray INDICATIONS: chest pain TECHNIQUE: One view of the chest was acquired. COMPARISON: 10/03/2020, 11/02/2019 FINDINGS: Surgical changes and devices: None. Lungs and pleura: No pleural effusions or pneumothorax. Lungs are clear, yet mildly hyperexpanded. Mediastinum: Mediastinal contours appear normal. Heart size is normal. Bones and chest wall: No suspicious bony lesions. Overlying soft tissues appear unremarkable. IMPRESSION: No acute abnormality is seen on this portable chest study. Reviewed by: Irineo Long MD on 11/04/2020 10:24 AM GRZEGORZ Approved by: Irineo Long MD on 11/04/2020 10:24 AM GRZEGORZ Station ID: [id number]
[2020-11-04 11:26] LABS: ALBUMIN 3.8 g/dL (3.2-5.5); ALBUMIN/GLOBULIN RATIO 1.4 (1.0-2.2); BILIRUBIN,TOTAL 0.8 mg/dL (0.2-1.0); CALCIUM 9.2 mg/dL (8.5-10.3); POTASSIUM 3.9 mmol/L (3.5-5.0); TOTAL PROTEIN 6.5 g/dL (6.7-8.2)
[2020-11-04] MEDS ORDERED: IOPAMIDOL-300 50 ML VIAL ONE (12:18)
--- NOTE | 2020-11-04 12:56 | CT Report ---
PROCEDURE: ANGIO CHEST W/WO INDICATIONS: chest pain elevated d-dimer CONTRAST: IV CONTRAST: Isovue 300 ml: 80 PO CONTRAST: *NO PO CONTRAST TECHNIQUE: After the administration of intravenous contrast, images were acquired from the pulmonary apices to t he posterior costophrenic angles. 3-dimensional maximum intensity projection (MIP) coronal and sagit mireya reformats were then acquired through the thorax. For radiation dose reduction, the following was used: automated exposure control, adjustment of mA and/or kV according to patient size. COMPARISON: 05/15/2015 CT angiogram of the chest FINDINGS: Image quality: Excellent. Pulmonary arteries: Pulmonary arteries are normal in size, and demonstrate no intraluminal filling d efects to suggest central pulmonary embolism. Lungs and pleura: Lungs are clear. No pleural effusions or pneumothorax. Central and peripheral ai rways are patent. Mediastinum: Heart size is normal, without pericardial effusion. Coronary atherosclerosis. No media stinal or hilar adenopathy. Thoracic aorta is normal in caliber and enhancement. Esophagus is susie l in caliber, without hiatal hernia. Bones and chest wall: No suspicious bony lesions. Ribs and thoracic spine appear intact throughout. No axillary or supraclavicular adenopathy. Abdomen: Visualized upper abdominal solid organs appear normal in the early arterial phase of enhanc ement. IMPRESSION: No pulmonary embolus or other acute finding in the chest. Coronary atherosclerosis. Reviewed by: Adryan Cornejo MD on 11/04/2020 12:54 PM PDT Approved by: Adryan Cornejo MD on 11/04/2020 12:54 PM PDT Station ID: [id number]
[2020-11-04 14:46] LABS: VBG HCO3 27.8 mmol/L (23-28); VBG PCO2 50.8 mmHg (41-51); VBG PH 7.356 (7.31-7.41); VBG PO2 26.3 mmHg (25-47)
[2020-11-04 14:47] LABS: VBG BASE EXCESS 1.4 mmol/L (-2 - +2); VBG OXYGEN SATURATION 52.4 % (60-80); VBG TOTAL CO2 29.4 mmol/L (24-29)
[2020-11-04 15:15] LABS: BILIRUBIN,URINE NEGATIVE (NEGATIVE); GLUCOSE, URINE (UA) >=1000 mg/dL (NEGATIVE); KETONES,URINE (UA) 15 mg/dL (NEGATIVE); LEUKOCYTE ESTERASE, URINE NEGATIVE (NEGATIVE); NITRITE,URINE NEGATIVE (NEGATIVE); OCCULT BLOOD,URINE NEGATIVE (NEGATIVE); PH,URINE 6.5 PH (5.0-7.5); PROTEIN,URINE NEGATIVE (NEGATIVE); UROBILINOGEN,URINE 0.2 (NORMAL) E.U./dL (NORMAL)
[2020-11-04 15:17] LABS: CLARITY,URINE CLEAR (CLEAR)
[2020-11-04 15:53] VITALS: BP 167/90
[2020-11-04 16:02] LABS: B. PARAPERTUSSIS- RESP PCR PAN NOT DETECTED; B. PERTUSSIS- RESP PCR PANEL NOT DETECTED; C. PNEUMONIAE- RESP PCR PANEL NOT DETECTED; CORONAVIRUS 229E-RESP PCR NOT DETECTED; CORONAVIRUS HKU1-RESP PCR NOT DETECTED; CORONAVIRUS NL63-RESP PCR NOT DETECTED; CORONAVIRUS OC43-RESP PCR NOT DETECTED; HUMAN METAPNEUMOVIRUS NOT DETECTED; INFLUENZA A- RESP PCR PANEL NOT DETECTED; INFLUENZA B - RESP PCR PANEL NOT DETECTED; M. PNEUMONIAE- RESP PCR PANEL NOT DETECTED; PARAINFLUENZA VIRUS 1 NOT DETECTED; PARAINFLUENZA VIRUS 2 NOT DETECTED; PARAINFLUENZA VIRUS 3 NOT DETECTED; PARAINFLUENZA VIRUS 4 NOT DETECTED; RHINOVIRUS/ENTEROVIRUS NOT DETECTED; RSV- RESP PCR PANEL NOT DETECTED; SARS-CoV-2 -RESP PCR PANEL NOT DETECTED
[2020-11-05] MEDS ORDERED: IOPAMIDOL-300 50 ML VIAL IVP ONE (10:49)
== END 2020-11-04 15:53 | disposition home or self-care (01) ==
LOC: ED 10:32
DX: R55 Syncope and collapse (principal); R00.1 Bradycardia, unspecified; I10 Essential (primary) hypertension; E10.9 Type 1 diabetes mellitus without complications; Z79.4 Long term (current) use of insulin; E86.0 Dehydration; Z20.822 Contact with and (suspected) exposure to COVID-19
CPT/HCPCS: 36415; 71045; 71275; 80053; 81003; 82009; 82803; 83690; 83880; 84484; 85025; 85379; 87631; 93005; 96374; 99284; Q9967; 0202U; 81001; 87086

== ENCOUNTER 2021-01-23 07:46 | Outpatient (CLI) | payer MEDICARE ==
[2021-01-23 12:32] LABS: ALBUMIN 4.4 g/dL (3.2-5.5); ALBUMIN/GLOBULIN RATIO 1.7 (1.0-2.2); ALKALINE PHOSPHATASE 65 IU/L (42-121); ALT ALANINE AMINOTRANSFERASE 23 IU/L (10-60); AST ASPARTATE AMINOTRANSFERASE 19 IU/L (10-42); BILIRUBIN,TOTAL 0.5 mg/dL (0.2-1.0); BUN - BLOOD UREA NITROGEN 20 mg/dL (6-20); CALCIUM 9.7 mg/dL (8.5-10.3); CARBON DIOXIDE - CO2 30 mmol/L (21-32); CHLORIDE 100 mmol/L (101-111); CHOL/HDL RATIO 2.4 (<5.0); CHOLESTEROL 137 mg/dL; GFR - MDRD 77 (>89); GLUCOSE 273 mg/dL (70-100); HDL CHOLESTEROL 56 mg/dL; POTASSIUM 4.5 mmol/L (3.5-5.0); SODIUM 139 mmol/L (135-145); TRIGLYCERIDES 39 mg/dL
[2021-01-23 12:33] LABS: ESTIMATED AVERAGE GLUCOSE 258 mg/dL (70-100); HEMOGLOBIN A1c% 10.6 % (4.27-6.07)
[2021-01-23 12:40] LABS: THYROID STIMULATING HORMONE 4.13 uIU/mL (0.34-5.60)
[2021-01-23 13:05] LABS: CREATININE,URINE 196.3 mg/dL; MICROALBUM/CREATININE RATIO,UR 5.6 ug/mg (<30.0); MICROALBUMIN,URINE 1.1 mg/dL (0-300.0)
== END 2021-01-23 07:47 | disposition home or self-care (01) ==
LOC: LAB.N 07:46
PROVIDERS: ATTEND Internal Medicine
DX: E10.9 Type 1 diabetes mellitus without complications (principal); I49.5 Sick sinus syndrome
CPT/HCPCS: 36415; 80053; 80061; 81599; 82043; 82570; 83036; 83721; 84443; 84681

== ENCOUNTER 2021-02-03 20:51 | Outpatient (CLI) | payer MEDICARE | END 2021-02-03 20:52 | disposition EMS.NT | LOC: EMS 20:51 | DX: R53.1 Weakness (principal); R42 Dizziness and giddiness ==

== ENCOUNTER 2021-02-03 22:31 | Outpatient (CLI) | payer MEDICARE | END 2021-02-03 22:32 | disposition critical access hospital (66) | LOC: EMS 22:31 | DX: E11.65 Type 2 diabetes mellitus with hyperglycemia (principal); I87.8 Other specified disorders of veins; Z79.4 Long term (current) use of insulin | CPT/HCPCS: A0425; A0429 ==

== ENCOUNTER 2021-02-03 22:47 | Emergency (ER) | payer MEDICARE ==
[2021-02-03] MEDS: ONDANSETRON 4 MG/2 ML VIAL IVP STA (23:11)
[2021-02-03] MEDS: SODIUM CHLORIDE 0.9% 500 ML IV STA (23:11)
--- NOTE | 2021-02-03 23:14 | ED Physician Documentation ---
History of Present Illness - Stated complaint Stated Complaint: HYPERGLYCEMIA/DEACON? 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 Patient states he had been feeling weak all day, not having been able to eat anything and was inside the shop and sank to his knees, sliding against the wall, feeling lightheaded. Shopkeeper called EMS who found patient to have HR 104, fingerstick 597. patient refused to come to the hospital at that time and so EMS gave him a courtesy ride home. Once he arrived home, patient smoked some marijuana and self administered 20 U humalog (around 10pm). He became acutely weak/dizzy again and his called EMS a second time. Finger stick 569 on repeat for EMS. patient denies fever, diarrhea, abd pain, cp, soa, urinary sx. denies sick contacts. endorses a twinge in his L midback lasting about 10 seconds in the field that has since resolved. states he felt normal yesterday. denies etoh or other drug use besides marijuana. denies any marijuana intake earlier in the day (only reports smoking at nighttime as a sleep aid). Note that upon chart review I see Dr. Johnson contacted his cardiology group (Dr. Leblanc/Diego) back in October of this year and confirmed he had had a negative nuclear stress test a month prior. Review of Systems Ten Systems: 10 systems reviewed and negative Constitutional: reports: Fatigue. denies: Fever, Chills Cardiac: denies: Chest pain / pressure Respiratory: denies: Dyspnea GI: reports: Nausea, Vomiting. denies: Abdominal Pain, Diarrhea : denies: Dysuria Musculoskeletal: reports: Back pain. denies: Neck pain Neurologic: reports: Generalized weakness, Other (dizziness). denies: Focal weakness, Numbness, Syncope, Head injury PD PAST MEDICAL HISTORY - Past Medical History Cardiovascular: Hypertension, High cholesterol, Other Respiratory: Pneumonia Neuro: CVA, Other Endocrine/Autoimmune: Type 1 diabetes, HyPOthyroidism GI: GERD, Ulcers, Colon polyps : Other HEENT: None Psych: None Musculoskeletal: None, Chronic back pain Derm: None - Past Surgical History Past Surgical History: Yes General: Colonoscopy Ortho: Carpal Tunnel surgery HEENT: Other - Present Medications Home Medications: Ambulatory Orders Medication Instructions Recorded Confirmed Levothyroxine [Synthroid] 125 mcg PO QDAC 09/02/13 11/04/20 Insulin Lispro [Humalog] 0 - 20 units SQ TIDWM 01/29/16 11/04/20 Mirtazapine 45 mg PO QPM 07/02/18 11/04/20 Insulin NPH Human [NovoLIN N] 20 units SUBQ BID 03/20/19 11/04/20 Atorvastatin Calcium 1 tab PO DAILY 11/04/20 11/04/20 Donepezil [Aricept] 10 mg PO DAILY 11/04/20 11/04/20 Ondansetron Odt [Zofran] 4 mg TL Q6H PRN #10 tablet 11/04/20 Promethazine [Phenergan] 25 mg PO BID 11/04/20 11/04/20 - Allergies Allergies/Adverse Reactions: Allergies Allergy/AdvReac Type Severity Reaction Status Date / Time omeprazole Allergy Intermediate Nausea Verified 02/03/21 22:58 codeine AdvReac Severe Dizziness Verified 02/03/21 22:58 doxycycline AdvReac Intermediate Dizziness Verified 02/03/21 22:58 - Social History Does the pt smoke?: No Smoking Status: Never smoker Does the pt drink ETOH?: No Does the pt have substance abuse?: No - Immunizations Immunizations are current?: Yes - POLST Patient has POLST: No PD ED PE NORMAL - Vitals Vital signs reviewed: Yes - General General: Alert and oriented X 3, No acute distress, Well developed/nourished - HEENT HEENT: Atraumatic, PERRL, EOMI - Neck Neck: Supple, no meningeal sign - Cardiac Cardiac: RRR, No murmur - Respiratory Respiratory: No respiratory distress, Clear bilaterally - Abdomen Abdomen: Non tender, Non distended - Back Back: No CVA TTP, No spinal TTP - Derm Derm: Normal color, Warm and dry - Extremities Extremities: No deformity - Neuro Neuro: Alert and oriented X 3, 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, No motor deficit, No sensory deficit, Normal speech - Psych Psych: Normal mood, Normal affect Results - Vitals Vitals: Vital Signs - 24 hr 02/03/21 02/03/21 22:45 22:54 Temperature 35.9 C L Heart Rate 82 84 Respiratory 18 14 Rate Blood Pressure 140/74 H 122/70 O2 Saturation 97 97 Oxygen O2 Source [Without Activity] Room air O2 Source Room air - EKG (time done) 2306 Rate: Rate (enter#) (81) Rhythm: NSR [place]: Normal Intervals: Normal DC QRS: Normal Ischemia: Normal ST segments Compare to prior EKG: Unchanged from prior EKG PD MEDICAL DECISION MAKING - ED course ED course: 55yM p/w hyperglycemia, weakness, dizziness, and intermittent n/v X 4 today. will obtain labs, ekg, cxr, and provide antiemetic and some fluids. 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 Departure - Departure Clinical Impression: Hyperglycemia, Weakness, Dizziness, Nausea and vomiting Condition: Stable
[2021-02-03 23:20] LABS: BASOPHILS # (AUTO) 0.1 10^3/uL (0.0-0.1); BASOPHILS % (AUTO) 0.9 %; EOSINOPHILS % (AUTO) 0.1 %; HCT - HEMATOCRIT 44.5 % (42.0-52.0); HGB - HEMOGLOBIN 15.4 g/dL (14.0-18.0); LYMPHOCYTES # (AUTO) 0.9 10^3/uL (1.5-3.5); LYMPHOCYTES % (AUTO) 11.5 %; MEAN CORPUSCULAR HEMOGLOBIN 30.3 pg (27.0-31.0); MEAN CORPUSCULAR HGB CONC 34.6 g/dL (32.0-36.0); MEAN CORPUSCULAR VOLUME 87.4 fL (80.0-94.0); MEAN PLATELET VOLUME 11.7 fL (7.4-11.4); MONOCYTES # (AUTO) 0.4 10^3/uL (0.0-1.0); MONOCYTES % (AUTO) 5.6 %; NEUTROPHILS # (AUTO) 6.1 10^3/uL (1.5-6.6); NEUTROPHILS % (AUTO) 81.6 %; PLT - PLATELET COUNT 266 10^3/uL (130-450); RED BLOOD COUNT 5.09 10^6/uL (4.70-6.10); RED CELL DISTRIBUTION WIDTH 11.5 % (12.0-15.0); WHITE BLOOD COUNT 7.5 x10^3/uL (4.8-10.8)
[2021-02-03 23:29] LABS: KETONES, SERUM (ACETEST) SMALL (NEGATIVE); VBG BASE EXCESS -5.6 mmol/L (-2 - +2); VBG HCO3 19.7 mmol/L (23-28); VBG OXYGEN SATURATION 69.7 % (60-80); VBG PCO2 38.4 mmHg (41-51); VBG PH 7.329 (7.31-7.41); VBG PO2 36.9 mmHg (25-47); VBG TOTAL CO2 20.9 mmol/L (24-29)
--- NOTE | 2021-02-03 23:38 | XRAY Report ---
PROCEDURE: Chest 1 View X-Ray INDICATIONS: Chest Pain TECHNIQUE: One view of the chest was acquired. COMPARISON: CT angiogram of chest dated 11/04/2020, chest radiograph dated August 04, 2020, 10/03/2020, and 04/30/2019 FINDINGS: Surgical changes and devices: None. Lungs and pleura: No pleural effusions or pneumothorax. Lungs are clear. Mediastinum: Mediastinal contours appear normal. Heart size is normal. Bones and chest wall: No suspicious bony lesions. Overlying soft tissues appear unremarkable. IMPRESSION: No acute cardiopulmonary pathology. Reviewed by: Ji Michaels MD on 02/03/2021 11:37 PM PST Approved by: Ji Michaels MD on 02/03/2021 11:37 PM PST Station ID: [id number]
[2021-02-03 23:42] LABS: ALBUMIN 4.4 g/dL (3.2-5.5); ALBUMIN/GLOBULIN RATIO 1.6 (1.0-2.2); ALKALINE PHOSPHATASE 69 IU/L (42-121); ALT ALANINE AMINOTRANSFERASE 22 IU/L (10-60); AST ASPARTATE AMINOTRANSFERASE 19 IU/L (10-42); BILIRUBIN,TOTAL 1.6 mg/dL (0.2-1.0); BUN - BLOOD UREA NITROGEN 33 mg/dL (6-20); CALCIUM 9.4 mg/dL (8.5-10.3); CARBON DIOXIDE - CO2 21 mmol/L (21-32); CHLORIDE 95 mmol/L (101-111); CREATININE 1.4 mg/dL (0.6-1.2); GFR - MDRD 52 (>89); LIPASE 25 U/L (22-51); POTASSIUM 4.6 mmol/L (3.5-5.0); SODIUM 130 mmol/L (135-145); TOTAL PROTEIN 7.1 g/dL (6.7-8.2)
[2021-02-03 23:46] LABS: BILIRUBIN,URINE NEGATIVE (NEGATIVE); GLUCOSE, URINE (UA) >=1000 mg/dL (NEGATIVE); KETONES,URINE (UA) 40 mg/dL (NEGATIVE); LEUKOCYTE ESTERASE, URINE NEGATIVE (NEGATIVE); NITRITE,URINE NEGATIVE (NEGATIVE); OCCULT BLOOD,URINE NEGATIVE (NEGATIVE); PROTEIN,URINE NEGATIVE (NEGATIVE); UROBILINOGEN,URINE 0.2 (NORMAL) E.U./dL (NORMAL)
[2021-02-03 23:49] LABS: GLUCOSE 511 mg/dL (70-100)
[2021-02-03 23:50] LABS: CLARITY,URINE CLEAR (CLEAR)
[2021-02-03 23:59] LABS: BACTERIA,URINE None Seen /HPF (None Seen); RBC,URINE None Seen /HPF (0-5); SQUAMOUS EPITHELIAL CELL,UR NONE SEEN (<= Few); WBC,URINE 0-3 /HPF (0-3)
[2021-02-03] MEDS: INSULIN REGULAR HUMAN 100 UNIT/1 ML 10 ML MDV IVP STA (23:59)
[2021-02-04] MEDS ORDERED: IOVERSOL 320 100 ML VIAL IVP ONE (00:08)
[2021-02-04] MEDS: IOVERSOL 320 100 ML VIAL IVP ONE (00:53)
--- NOTE | 2021-02-04 01:09 | CT Report ---
PROCEDURE: ANGIO CHEST W/WO INDICATIONS: weak, lightheaded, n/v, back pain, elevated d dime CONTRAST: IV CONTRAST: Optiray 320 ml: 100 PO CONTRAST: *NO PO CONTRAST TECHNIQUE: After the administration of intravenous contrast, 2 mm axial images were acquired from the pulmonary apices to the posterior costophrenic angles during the arterial phase. In addition, 1 mm lung kernel and 5 mm soft tissue kernel reconstructions were performed. 3-dimensional coronal oblique maximum int ensity projection (MIP) reformats, 8 mm axial MIP, and 5 mm coronal and sagittal MPR reformats were t hen performed through the thorax. For radiation dose reduction, the following was used: automated exp osure control, adjustment of mA and/or kV according to patient size. COMPARISON: 11/04/2020 and chest radiograph dated 02/03/2021 FINDINGS: Image quality: Excellent. Pulmonary arteries: Pulmonary arteries are normal in size, and demonstrate no intraluminal filling d efects to suggest central pulmonary embolism. Lungs and pleura: Diffuse scattered atelectasis/scarring in periphery of bilateral lower lung german are seen. No focal infiltrate. No pleural effusions or pneumothorax. Central and peripheral airways are patent. Mediastinum: Heart size is normal, without pericardial effusion. No mediastinal or hilar adenopathy . Thoracic aorta is normal in caliber and enhancement. Mild to moderate atherosclerotic calcificati ons are again seen. Esophagus is normal in caliber, without hiatal hernia. Bones and chest wall: No suspicious bony lesions. Degenerative disc disease throughout thoracic spi ne is again seen with chronic appearing anterior wedge compression deformity at L2 level unchanged fr om prior study. No axillary or supraclavicular adenopathy. The thyroid is normal in size and there a re no incidental findings. Abdomen: Visualized upper abdominal solid organs appear normal in the early arterial phase of enhanc ement. IMPRESSION: 1. No evidence of pulmonary emboli. No thoracic aortic aneurysm. 2. Bibasilar atelectasis. No focal infiltrate, pleural effusion or pneumothorax. 3. No mediastinal or hilar lymphadenopathy. [id number] atherosclerotic disease. CLINICAL RECOMMENDATION STATEMENTS: In patients <35 years with an ITN detected on CT, MRI, or extrathyroidal ultrasound, the Committee re commends further evaluation with dedicated thyroid ultrasound if the nodule is "e1 cm and has no susp icious imaging features, and if the patient has normal life expectancy. In patients "e35 years with an ITN detected on CT, MRI, or extrathyroidal ultrasound, the Committee r ecommends further evaluation with dedicated thyroid ultrasound if the nodule is "e1.5 cm and has no s uspicious imaging features, and if the patient has normal life expectancy. (ACR, 2014) Reviewed by: Ji Michaels MD on 02/04/2021 1:08 AM PST Approved by: Ji Michaels MD on 02/04/2021 1:08 AM PST Station ID: [id number]
[2021-02-04 02:18] VITALS: BP 140/83
== END 2021-02-04 02:31 | disposition home or self-care (01) ==
LOC: EDUNIT# → ED 22:47
DX: R42 Dizziness and giddiness (principal); R11.2 Nausea with vomiting, unspecified; E10.65 Type 1 diabetes mellitus with hyperglycemia; Z79.4 Long term (current) use of insulin; I10 Essential (primary) hypertension
CPT/HCPCS: 36415; 71045; 71275; 80053; 81001; 82009; 82803; 83690; 84484; 85025; 85379; 93005; 96361; 96374; 99284; J1815; Q9967; 87086

== ENCOUNTER 2021-02-13 10:22 | Outpatient (CLI) | payer MEDICARE ==
[2021-02-13 12:24] LABS: CALCIUM 9.3 mg/dL (8.5-10.3); CREATININE 0.9 mg/dL (0.6-1.2); POTASSIUM 3.9 mmol/L (3.5-5.0)
== END 2021-02-13 10:23 | disposition home or self-care (01) ==
LOC: LAB.N 10:22
PROVIDERS: ATTEND Internal Medicine
DX: E10.9 Type 1 diabetes mellitus without complications (principal)
CPT/HCPCS: 36415; 80048; 86200

== ENCOUNTER 2021-03-08 07:45 | Outpatient (CLI) | payer MEDICARE ==
[2021-03-08 12:47] LABS: CALCIUM 9.5 mg/dL (8.5-10.3); CREATININE 0.9 mg/dL (0.6-1.2); POTASSIUM 3.9 mmol/L (3.5-5.0)
== END 2021-03-08 07:46 | disposition home or self-care (01) ==
LOC: LAB.N 07:45
PROVIDERS: ATTEND Internal Medicine
DX: E10.9 Type 1 diabetes mellitus without complications (principal)
CPT/HCPCS: 36415; 80048; 81599; 84681

== ENCOUNTER 2021-04-09 13:51 | Emergency (ER) | payer MEDICARE ==
--- NOTE | 2021-04-09 14:19 | ED Physician Documentation ---
History of Present Illness - Stated complaint Stated Complaint: LOW BACK PX - Chief complaint Chief Complaint: Back Pain - History obtained from History obtained from: Patient - History of Present Illness Timing: How many weeks ago (1) Pain level max: 5 Pain level now: 5 - Additonal information Additional information: 55 year old male who presents to the emergency department with 1 week of worsening low back pain. He states that he has a history of an L5 fracture. He states that about a week ago he stepped hard off of a curb injuring his back. He states that it is worse with movement, better with rest. Tends to be worse at night and better in the morning. Occasionally has tingling in the bilateral lower extremities. Has not taken anything for pain. No loss of bowel or bladder control. He states that his spine surgeon is at [facility] Review of Systems Constitutional: denies: Fever, Chills Respiratory: denies: Cough GI: denies: Vomiting, Diarrhea : denies: Dysuria, Frequency, Hesitancy, Incontinent Skin: denies: Rash Musculoskeletal: denies: Neck pain Neurologic: denies: Headache PD PAST MEDICAL HISTORY - Past Medical History Cardiovascular: Hypertension, High cholesterol, Other Respiratory: Pneumonia Neuro: CVA, Other Endocrine/Autoimmune: Type 1 diabetes, HyPOthyroidism GI: GERD, Ulcers, Colon polyps : Other HEENT: None Psych: None Musculoskeletal: None, Chronic back pain Derm: None - Past Surgical History Past Surgical History: Yes General: Colonoscopy Ortho: Carpal Tunnel surgery HEENT: Other - Present Medications Home Medications: Ambulatory Orders Medication Instructions Recorded Confirmed Levothyroxine [Synthroid] 125 mcg PO QDAC 09/02/13 11/04/20 Insulin Lispro [Humalog] 0 - 20 units SQ TIDWM 01/29/16 11/04/20 Mirtazapine 45 mg PO QPM 07/02/18 11/04/20 Insulin NPH Human [NovoLIN N] 20 units SUBQ BID 03/20/19 11/04/20 Atorvastatin Calcium 1 tab PO DAILY 11/04/20 11/04/20 Donepezil [Aricept] 10 mg PO DAILY 11/04/20 11/04/20 Ondansetron Odt [Zofran] 4 mg TL Q6H PRN #10 tablet 11/04/20 Promethazine [Phenergan] 25 mg PO BID 11/04/20 11/04/20 Meloxicam [Mobic] 15 mg PO DAILY PRN #20 tablet 04/09/21 methylPREDNISolone [Medrol] 4 mg PO DAILY #1 tab 04/09/21 - Allergies Allergies/Adverse Reactions: Allergies Allergy/AdvReac Type Severity Reaction Status Date / Time omeprazole Allergy Intermediate Nausea Verified 04/09/21 13:55 codeine AdvReac Severe Dizziness Verified 04/09/21 13:55 doxycycline AdvReac Intermediate Dizziness Verified 04/09/21 13:55 - Social History Does the pt smoke?: No Smoking Status: Never smoker Does the pt drink ETOH?: No Does the pt have substance abuse?: No - Immunizations Immunizations are current?: Yes - POLST Patient has POLST: No PD ED PE NORMAL - Vitals Vital signs reviewed: Yes - General General: Alert and oriented X 3, No acute distress - HEENT HEENT: Moist mucous membranes - Neck Neck: Supple, no meningeal sign - Cardiac Cardiac: RRR - Respiratory Respiratory: No respiratory distress, Clear bilaterally - Abdomen Abdomen: Soft, Non tender, Non distended - Back Back: Other (Mild tender palpation at L5. No step-off or deformity. Mild paraspinal spasm bilaterally. Otherwise normal examination of the cervical, thoracic and lumbar spines) - Derm Derm: Warm and dry - Extremities Extremities: No edema, No calf tenderness / cord - Neuro Neuro: Alert and oriented X 3, No motor deficit, No sensory deficit, Other (Normal bilateral lower extremity patellar and ankle jerk reflexes. Normal great toe extension bilaterally. no saddle anesthesia) - Psych Psych: Normal mood, Normal affect Results - Vitals Vitals: Vital Signs - 24 hr 04/09/21 04/09/21 13:55 15:27 Temperature 36.5 C 36.8 C Heart Rate 67 68 Respiratory 18 16 Rate Blood Pressure 122/100 H 149/97 H O2 Saturation 99 100 Oxygen O2 Source [Without Activity] Room air O2 Source Room air - Rads (name of study) Lumbar spine CT Radiology: Final report received, EMP read contemporaneously, See rad report PD MEDICAL DECISION MAKING - ED course Complexity details: reviewed results, re-evaluated patient, considered differential (No cauda equina, no spinal epidural abscess, no fracture, no aortic dissection or evidence of aneursym rupture), d/w patient ED course: 55-year-old male with back pain after stepping off of a curb last week. Has a history of back trauma in the past. Has several bulging disks causing sciatica symptoms. We will place on steroids for home and anti-inflammatories. No evidence of cauda equina, epidural abscess. No focal neurological deficits. We will have him follow-up with his doctor for further care. Patient counseled regarding signs and symptoms for which I believe and urgent re-evaluation would be necessary. Patient with good understanding of and agreement to plan and is comfortable going home at this time This document was made in part using voice recognition software. While efforts are made to proofread this document, sound alike and grammatical errors may occur. FINDINGS: Image quality: Excellent. Bones: No suspicious lytic or blastic bony lesions. Central spinal caliber is of normal overall caliber. No pars defects. Mild levoconvex scoliotic curvature is seen. Minimal anterolisthesis is seen at T12-L1 and there is minimal retrolisthesis at L2-L3. Remote anterior wedge deformities are seen at L1 and at L5, which are stable. T12-L1: At least moderate loss of disc height is seen. Endplate irregularity and sclerosis can be seen. Mild to moderate disc bulge is seen. Moderate bilateral neural foraminal narrowing is seen. Mild central canal narrowing is seen. L1-L2: Mild to moderate loss of disc height is seen. Vacuum disc phenomenon is seen at this level. Mild to moderate disc bulge is seen. No significant neuroforaminal narrowing is seen. Mild central canal narrowing is seen. L2-L3: At least moderate loss of disc height is seen. Endplate irregularity and sclerosis can be seen. Vacuum disc phenomenon is seen at this level. Posteriorly directed endplate osteophytes are seen. At least moderate disc bulge is seen. Mild facet hypertrophy is seen. There is moderate to severe right-sided neuroforaminal narrowing, with a degree of compression seen upon the exiting right L2 nerve root. Moderate left-sided neuroforaminal narrowing is seen. At least moderate central canal narrowing is seen. L3-L4: The disc height is well-preserved. Mild disc bulge is seen. Mild facet hypertrophy is seen. Mild bilateral neural foraminal narrowing is seen. Mild central canal narrowing is seen. L4-L5: There is mild loss of disc height posteriorly. Moderate disc bulge is seen, which is eccentric to the right side. Mild to moderate facet hypertrophy is seen. There is at least moderate bilateral neuroforaminal narrowing, right worse than left. A degree of compression can be seen upon the exiting nerve roots. Moderate central canal narrowing is seen. L5-S1: The disc height is well-preserved. Mild disc bulge is seen. Mild facet hypertrophy is seen. No significant neuroforaminal or central canal narrowing can be seen. Soft tissues: No retroperitoneal masses or hematomas. Visualized aorta is normal in caliber. IMPRESSION: No acute abnormality is seen. No acute fracture. Remote L1 and L5 anterior wedge deformities. Multiple levels of degenerative change can be seen, which are overall worst at L2-L3 and at L4-L5. If it would be helpful for clinical management decision making, please consider a dedicated, scheduled lumbar MRI for further evaluation (assuming that there is no contraindication). Departure - Departure Disposition: 01 Home, Self Care Clinical Impression: Sciatica Qualifiers: Laterality: bilateral Qualified Code(s): M54.31 - Sciatica, right side Condition: Good Instructions: ED Sciatica Follow-Up: Zackary Dean MD [Primary Care Provider] - Within 1 week Prescriptions: methylPREDNISolone [Medrol] 4 mg PO DAILY #1 tab Meloxicam [Mobic] 15 mg PO DAILY PRN #20 tablet PRN Reason: pain Comments: Your prescriptions were sent to [facility] in [place]. Please follow-up with your doctor for further care. Take all medications as prescribed. Return if you worsen. FINDINGS: Image quality: Excellent. Bones: No suspicious lytic or blastic bony lesions. Central spinal caliber is of normal overall caliber. No pars defects. Mild levoconvex scoliotic curvature is seen. Minimal anterolisthesis is seen at T12-L1 and there is minimal retrolisthesis at L2-L3. Remote anterior wedge deformities are seen at L1 and at L5, which are stable. T12-L1: At least moderate loss of disc height is seen. Endplate irregularity and sclerosis can be seen. Mild to moderate disc bulge is seen. Moderate bilateral neural foraminal narrowing is seen. Mild central canal narrowing is seen. L1-L2: Mild to moderate loss of disc height is seen. Vacuum disc phenomenon is seen at this level. Mild to moderate disc bulge is seen. No significant neuroforaminal narrowing is seen. Mild central canal narrowing is seen. L2-L3: At least moderate loss of disc height is seen. Endplate irregularity and sclerosis can be seen. Vacuum disc phenomenon is seen at this level. Posteriorly directed endplate osteophytes are seen. At least moderate disc bulge is seen. Mild facet hypertrophy is seen. There is moderate to severe right-sided neuroforaminal narrowing, with a degree of compression seen upon the exiting right L2 nerve root. Moderate left-sided neuroforaminal narrowing is seen. At least moderate central canal narrowing is seen. L3-L4: The disc height is well-preserved. Mild disc bulge is seen. Mild facet hypertrophy is seen. Mild bilateral neural foraminal narrowing is seen. Mild central canal narrowing is seen. L4-L5: There is mild loss of disc height posteriorly. Moderate disc bulge is seen, which is eccentric to the right side. Mild to moderate facet hypertrophy is seen. There is at least moderate bilateral neuroforaminal narrowing, right worse than left. A degree of compression can be seen upon the exiting nerve roots. Moderate central canal narrowing is seen. L5-S1: The disc height is well-preserved. Mild disc bulge is seen. Mild facet hypertrophy is seen. No significant neuroforaminal or central canal narrowing can be seen. Soft tissues: No retroperitoneal masses or hematomas. Visualized aorta is normal in caliber. IMPRESSION: No acute abnormality is seen. No acute fracture. Remote L1 and L5 anterior wedge deformities. Multiple levels of degenerative change can be seen, which are overall worst at L2-L3 and at L4-L5. If it would be helpful for clinical management decision making, please consider a dedicated, scheduled lumbar MRI for further evaluation (assuming that there is no contraindication). Discharge Date/Time: 04/09/21 15:50
[2021-04-09 15:27] VITALS: BP 149/97
--- NOTE | 2021-04-09 15:28 | CT Report ---
PROCEDURE: LUMBAR SPINE WO INDICATIONS: fall, back pain x 1 week, h/o L5 fx TECHNIQUE: Noncontrast 3 mm thick sections acquired from the T12 level to the sacrum. Sagittal and coronal refo rmats were constructed. For radiation dose reduction, the following was used: automated exposure co ntrol, adjustment of mA and/or kV according to patient size. COMPARISON: Correlation is made with lumbar plain films, 03/14/2020 Correlation is made with prior a bdomen and pelvis CT, 06/05/2017. FINDINGS: Image quality: Excellent. Bones: No suspicious lytic or blastic bony lesions. Central spinal caliber is of normal overall arline iber. No pars defects. Mild levoconvex scoliotic curvature is seen. Minimal anterolisthesis is seen at T12-L1 and there is minimal retrolisthesis at L2-L3. Remote anterior wedge deformities are seen at L1 and at L5, which are stable. T12-L1: At least moderate loss of disc height is seen. Endplate irregularity and sclerosis can be se en. Mild to moderate disc bulge is seen. Moderate bilateral neural foraminal narrowing is seen. Mild central canal narrowing is seen. L1-L2: Mild to moderate loss of disc height is seen. Vacuum disc phenomenon is seen at this level . Mild to moderate disc bulge is seen. No significant neuroforaminal narrowing is seen. Mild centra l canal narrowing is seen. L2-L3: At least moderate loss of disc height is seen. Endplate irregularity and sclerosis can be s een. Vacuum disc phenomenon is seen at this level. Posteriorly directed endplate osteophytes are seen. At least moderate disc bulge is seen. Mild facet hypertrophy is seen. There is moderate to severe right-sided neuroforaminal narrowing, with a degree of compression seen upon the exiting right L2 nerve root. Moderate left-sided neuroforaminal narrowing is seen. At least moderate central canal narrowing is seen. L3-L4: The disc height is well-preserved. Mild disc bulge is seen. Mild facet hypertrophy is se en. Mild bilateral neural foraminal narrowing is seen. Mild central canal narrowing is seen. L4-L5: There is mild loss of disc height posteriorly. Moderate disc bulge is seen, which is eccentr ic to the right side. Mild to moderate facet hypertrophy is seen. There is at least moderate bilatera l neuroforaminal narrowing, right worse than left. A degree of compression can be seen upon the exiti ng nerve roots. Moderate central canal narrowing is seen. L5-S1: The disc height is well-preserved. Mild disc bulge is seen. Mild facet hypertrophy is se en. No significant neuroforaminal or central canal narrowing can be seen. Soft tissues: No retroperitoneal masses or hematomas. Visualized aorta is normal in caliber. IMPRESSION: No acute abnormality is seen. No acute fracture. Remote L1 and L5 anterior wedge deformities. Multiple levels of degenerative change can be seen, which are overall worst at L2-L3 and at L4-L5. If it would be helpful for clinical management decision making, please consider a dedicated, schedule d lumbar MRI for further evaluation (assuming that there is no contraindication). Reviewed by: Irineo Long MD on 04/09/2021 2:27 PM [facility] Approved by: Irineo Long MD on 04/09/2021 2:27 PM [facility] Station ID: [id number]
== END 2021-04-09 15:50 | disposition home or self-care (01) ==
LOC: ED 13:51
DX: M54.31 Sciatica, right side (principal); I10 Essential (primary) hypertension; E10.9 Type 1 diabetes mellitus without complications; Z79.4 Long term (current) use of insulin
CPT/HCPCS: 99283; 99284

== ENCOUNTER 2021-05-29 20:15 | Outpatient (CLI) | payer MEDICARE | END 2021-05-29 20:16 | disposition critical access hospital (66) | LOC: EMS 20:15 | DX: E10.65 Type 1 diabetes mellitus with hyperglycemia (principal); R53.1 Weakness; R11.2 Nausea with vomiting, unspecified; R42 Dizziness and giddiness; R41.82 Altered mental status, unspecified | CPT/HCPCS: A0425; A0427 ==

== ENCOUNTER 2021-05-29 20:33 | Inpatient (IN) | payer MEDICARE ==
[2021-05-29] MEDS ORDERED: MORPHINE 2 MG/ML CARPUJECT IVP STA (20:51)
[2021-05-29] MEDS ORDERED: SODIUM CHLORIDE 0.9% 1,000 ML IV STA ×2 (20:51→21:20)
[2021-05-29] MEDS ORDERED: PROMETHAZINE INJ 12.5 MG in SODIUM CHLORIDE 0.9% 50 ML IV STA (20:52)
[2021-05-29 20:58] LABS: BASOPHILS # (AUTO) 0.1 10^3/uL (0.0-0.1); BASOPHILS % (AUTO) 0.6 %; EOSINOPHILS # (AUTO) 0.1 10^3/uL (0.0-0.7); EOSINOPHILS % (AUTO) 0.6 %; HCT - HEMATOCRIT 41.6 % (42.0-52.0); HGB - HEMOGLOBIN 14.4 g/dL (14.0-18.0); LYMPHOCYTES # (AUTO) 0.8 10^3/uL (1.5-3.5); LYMPHOCYTES % (AUTO) 6.2 %; MEAN CORPUSCULAR HEMOGLOBIN 30.5 pg (27.0-31.0); MEAN CORPUSCULAR HGB CONC 34.6 g/dL (32.0-36.0); MEAN CORPUSCULAR VOLUME 88.1 fL (80.0-94.0); MEAN PLATELET VOLUME 11.9 fL (7.4-11.4); MONOCYTES # (AUTO) 0.3 10^3/uL (0.0-1.0); MONOCYTES % (AUTO) 2.3 %; NEUTROPHILS # (AUTO) 11.8 10^3/uL (1.5-6.6); NEUTROPHILS % (AUTO) 89.8 %; PLT - PLATELET COUNT 274 10^3/uL (130-450); RED BLOOD COUNT 4.72 10^6/uL (4.70-6.10); RED CELL DISTRIBUTION WIDTH 11.8 % (12.0-15.0); WHITE BLOOD COUNT 13.1 x10^3/uL (4.8-10.8)
[2021-05-29 21:00] LABS: VBG PH 7.276 (7.31-7.41)
[2021-05-29 21:01] LABS: VBG BASE EXCESS -12.5 mmol/L (-2 - +2); VBG HCO3 12.5 mmol/L (23-28); VBG OXYGEN SATURATION 63.2 % (60-80); VBG PCO2 27.5 mmHg (41-51); VBG PO2 35.4 mmHg (25-47); VBG TOTAL CO2 13.4 mmol/L (24-29)
[2021-05-29] MEDS ORDERED: PROMETHAZINE 25 MG/1 ML VIAL ONE (21:08)
[2021-05-29 21:12] LABS: ALBUMIN 4.3 g/dL (3.2-5.5); ALBUMIN/GLOBULIN RATIO 1.7 (1.0-2.2); ALKALINE PHOSPHATASE 63 IU/L (42-121); ALT ALANINE AMINOTRANSFERASE 22 IU/L (10-60); AST ASPARTATE AMINOTRANSFERASE 28 IU/L (10-42); BILIRUBIN,TOTAL 2.1 mg/dL (0.2-1.0); BUN - BLOOD UREA NITROGEN 35 mg/dL (6-20); CALCIUM 9.1 mg/dL (8.5-10.3); CARBON DIOXIDE - CO2 13 mmol/L (21-32); CHLORIDE 91 mmol/L (101-111); CREATININE 1.5 mg/dL (0.6-1.2); GFR - MDRD 48 (>89); LIPASE 28 U/L (22-51); MAGNESIUM 2.2 mg/dL (1.7-2.8); POTASSIUM 4.3 mmol/L (3.5-5.0); SODIUM 130 mmol/L (135-145); TOTAL PROTEIN 6.8 g/dL (6.7-8.2)
[2021-05-29 21:14] LABS: GLUCOSE 568 mg/dL (70-100)
[2021-05-29 21:16] LABS: KETONES, SERUM (ACETEST) MODERATE (NEGATIVE)
[2021-05-29] MEDS ORDERED: INSULIN REGULAR HUMAN 100 UNIT in SODIUM CHLORIDE 0.9% 100ML 99 ML IV STA (21:17)
[2021-05-29 21:22] LABS: BILIRUBIN,URINE NEGATIVE (NEGATIVE); GLUCOSE, URINE (UA) >=1000 mg/dL (NEGATIVE); KETONES,URINE (UA) >=80 mg/dL (NEGATIVE); LEUKOCYTE ESTERASE, URINE NEGATIVE (NEGATIVE); NITRITE,URINE NEGATIVE (NEGATIVE); OCCULT BLOOD,URINE NEGATIVE (NEGATIVE); PH,URINE 5.5 PH (5.0-7.5); PROTEIN,URINE NEGATIVE (NEGATIVE); UROBILINOGEN,URINE 0.2 (NORMAL) E.U./dL (NORMAL)
[2021-05-29 21:23] LABS: CLARITY,URINE CLEAR (CLEAR)
--- NOTE | 2021-05-29 21:29 | ED Physician Documentation ---
History of Present Illness - Stated complaint Stated Complaint: BACK/SHLDR PX/VOMITING - Chief complaint Chief Complaint: Abd Pain - History obtained from History obtained from: Patient - Additonal information Additional information: Patient with a history significant for type 1 diabetes presenting for evaluation of nausea and vomiting that started this afternoon at 3 PM. Patient reports multiple episodes of nonbloody nonbilious emesis. He then developed upper back and shoulder pain later this afternoon. Patient states he has a history of these pains but it seems worse today.He has been out of his long-acting insulin for 2 days. He thought he was supposed to go for insulin pump training but that did not occur and he did not order more of his long-acting insulin. He denies recent illness with fever, cough, congestion, chest pain, difficulty breathing. He denies abdominal pain, diarrhea, dysuria.He does admit to regular cannabis use. Review of Systems Ten Systems: 10 systems reviewed and negative Constitutional: denies: Fever Throat: denies: Sore throat Cardiac: denies: Chest pain / pressure Respiratory: denies: Dyspnea, Cough GI: reports: Nausea, Vomiting. denies: Diarrhea, Hematemesis : denies: Dysuria Skin: denies: Rash Musculoskeletal: reports: Back pain (Chronic per patient) Neurologic: denies: Syncope PD PAST MEDICAL HISTORY - Past Medical History Cardiovascular: Hypertension, High cholesterol, Other Respiratory: Pneumonia Neuro: CVA, Other Endocrine/Autoimmune: Type 1 diabetes, HyPOthyroidism GI: GERD, Ulcers, Colon polyps : Other HEENT: None Psych: None Musculoskeletal: None, Chronic back pain Derm: None - Past Surgical History Past Surgical History: Yes General: Colonoscopy Ortho: Carpal Tunnel surgery HEENT: Other - Present Medications Home Medications: Ambulatory Orders Medication Instructions Recorded Confirmed Levothyroxine [Synthroid] 125 mcg PO QDAC 09/02/13 11/04/20 Insulin Lispro [Humalog] 0 - 20 units SQ TIDWM 01/29/16 11/04/20 Mirtazapine 45 mg PO QPM 07/02/18 11/04/20 Insulin NPH Human [NovoLIN N] 20 units SUBQ BID 03/20/19 11/04/20 Atorvastatin Calcium 1 tab PO DAILY 11/04/20 11/04/20 Donepezil [Aricept] 10 mg PO DAILY 11/04/20 11/04/20 Ondansetron Odt [Zofran] 4 mg TL Q6H PRN #10 tablet 11/04/20 Promethazine [Phenergan] 25 mg PO BID 11/04/20 11/04/20 Meloxicam [Mobic] 15 mg PO DAILY PRN #20 tablet 04/09/21 methylPREDNISolone [Medrol] 4 mg PO DAILY #1 tab 04/09/21 - Allergies Allergies/Adverse Reactions: Allergies Allergy/AdvReac Type Severity Reaction Status Date / Time omeprazole Allergy Intermediate Nausea Verified 05/29/21 20:42 insulin aspart Allergy Unknown Verified 05/29/21 20:42 [From Novolog U-100 Insulin aspart] insulin aspart protamine Allergy Unknown Verified 05/29/21 20:42 human [From Novolog Mix 70-30 U-100 Insuln] codeine AdvReac Severe Dizziness Verified 05/29/21 20:42 doxycycline AdvReac Intermediate Dizziness Verified 05/29/21 20:42 - Social History Does the pt smoke?: No Smoking Status: Never smoker Does the pt drink ETOH?: No Does the pt have substance abuse?: No - Immunizations Immunizations are current?: Yes - POLST Patient has POLST: No PD ED PE NORMAL - General General: Alert and oriented X 3, No acute distress, Other (Mild distress, retching) - HEENT HEENT: Atraumatic, PERRL, EOMI, Pharynx benign, Other (Dry oral mucosa) - Neck Neck: Supple, no meningeal sign - Cardiac Cardiac: RRR, No gallop, Strong equal pulses - Respiratory Respiratory: No respiratory distress, Clear bilaterally - Abdomen Abdomen: Normal bowel sounds, Non tender, Non distended - Back Back: No CVA TTP - Derm Derm: Normal color, No rash - Extremities Extremities: No deformity - Neuro Neuro: Alert and oriented X 3, No motor deficit, Normal speech - Psych Psych: Normal mood, Normal affect Results - Vitals Vitals: Vital Signs - 24 hr 05/29/21 05/29/21 05/29/21 20:42 21:16 21:30 Temperature 36.7 C Heart Rate 96 92 100 Respiratory 24 18 22 Rate Blood Pressure 170/82 H 121/107 H 135/57 H O2 Saturation 100 100 100 05/29/21 05/29/21 05/29/21 22:04 22:30 23:00 Temperature Heart Rate 97 94 90 Respiratory 21 16 21 Rate Blood Pressure 138/63 H 126/72 126/65 O2 Saturation 99 99 100 05/29/21 05/30/21 23:30 00:00 Temperature Heart Rate 91 92 Respiratory 16 19 Rate Blood Pressure 118/67 129/68 O2 Saturation 97 97 Oxygen O2 Source [] Room air O2 Source Room air - EKG (time done) 2042 Rate: Rate (enter#) Rhythm: NSR Intervals: Prolonged QT (QTC is 504) Ischemia: No: ST elevation c/w ischemia - Labs Labs: Laboratory Tests 05/29/21 05/29/21 05/29/21 20:25 20:25 20:25 WBC 13.1 H RBC 4.72 Hgb 14.4 Hct 41.6 L MCV 88.1 MCH 30.5 MCHC 34.6 RDW 11.8 L Plt Count 274 MPV 11.9 H Neut # (Auto) 11.8 H Lymph # (Auto) 0.8 L Ocean # (Auto) 0.3 Eos # (Auto) 0.1 Baso # (Auto) 0.1 Absolute Nucleated RBC 0.00 Nucleated RBC % 0.0 VBG pH VBG pCO2 VBG pO2 VBG HCO3 VBG Total CO2 VBG O2 Saturation VBG Base Excess Sodium 130 L Potassium 4.3 Chloride 91 L Carbon Dioxide 13 L Anion Gap 26.0 H BUN 35 H Creatinine 1.5 H Estimated GFR (MDRD) 48 L Glucose 568 H* Calcium 9.1 Magnesium 2.2 Total Bilirubin 2.1 H AST 28 ALT 22 Alkaline Phosphatase 63 Troponin I High Sens 3.9 Total Protein 6.8 Albumin 4.3 Globulin 2.5 Albumin/Globulin Ratio 1.7 Lipase 28 Urine Color Urine Clarity Urine pH Ur Specific [place] Urine Protein Urine Glucose (UA) Urine Ketones Urine Occult Blood Urine Nitrite Urine Bilirubin Urine Urobilinogen Ur Leukocyte Esterase Ur Microscopic Review Urine Culture Comments Serum Ketones MODERATE H SARS-CoV-2 (PCR) 05/29/21 05/29/21 05/29/21 20:25 21:15 21:30 WBC RBC Hgb Hct MCV MCH MCHC RDW Plt Count MPV Neut # (Auto) Lymph # (Auto) Ocean # (Auto) Eos # (Auto) Baso # (Auto) Absolute Nucleated RBC Nucleated RBC % VBG pH 7.276 L VBG pCO2 27.5 L VBG pO2 35.4 VBG HCO3 12.5 L VBG Total CO2 13.4 L VBG O2 Saturation 63.2 VBG Base Excess -12.5 L Sodium Potassium Chloride Carbon Dioxide Anion Gap BUN Creatinine Estimated GFR (MDRD) Glucose Calcium Magnesium Total Bilirubin AST ALT Alkaline Phosphatase Troponin I High Sens Total Protein Albumin Globulin Albumin/Globulin Ratio Lipase Urine Color YELLOW Urine Clarity CLEAR Urine pH 5.5 Ur Specific [place] 1.025 Urine Protein NEGATIVE Urine Glucose (UA) >=1000 H Urine Ketones >=80 H Urine Occult Blood NEGATIVE Urine Nitrite NEGATIVE Urine Bilirubin NEGATIVE Urine Urobilinogen 0.2 (NORMAL) Ur Leukocyte Esterase NEGATIVE Ur Microscopic Review NOT INDICATED Urine Culture Comments NOT INDICATED Serum Ketones SARS-CoV-2 (PCR) NOT DETECTED PD MEDICAL DECISION MAKING - ED course ED course: Patient presenting for evaluation of nausea and vomiting. He is a type I diabetic and has been noncompliant with his long-acting insulin for 2 days. His initial blood sugar was read as high. Clinically he appears to be in DKA. Lab s also confirm this diagnosis. Patient was given 2 L of IV fluids and started on an insulin drip.His abdominal exam is benign. Patient appears more comfortable after 1 dose of pain medication. He does report having a long history of all over back and shoulder pain.He does not appear septic and I think the cause of his DKA is noncompliance with long-acting insulin. Discussed the case with the evening hospitalist who agrees to admit the patient. - Critical Care Time(min): 33 Time Includes: Direct patient care, Review records, Reassess patient, Document care, Coordinate care, Medical consult Data interpretation: Labs, CXR, Prior EKG Departure - Departure Disposition: 66 [facility] DC/Xfer Clinical Impression: SAMUEL (acute kidney injury), Noncompliance with medication regimen DKA (diabetic ketoacidosis) Qualifiers: Diabetes mellitus type: type 1 Diabetes mellitus complication detail: without coma Qualified Code(s): E10.10 - Type 1 diabetes mellitus with ketoacidosis without coma
[2021-05-29] MEDS ORDERED: INSULIN REGULAR HUMAN 100 UNIT/1 ML 10 ML MDV ONE (21:32)
--- NOTE | 2021-05-29 21:36 | XRAY Report ---
PROCEDURE: Chest 1 View X-Ray INDICATIONS: pain TECHNIQUE: One view of the chest was acquired. COMPARISON: 02/03/2021 FINDINGS: Surgical changes and devices: Lead-less cardiac pacer.. Lungs and pleura: No pleural effusions or pneumothorax. Lungs are clear. Mediastinum: Mediastinal contours appear normal. Heart size is normal. Bones and chest wall: No suspicious bony lesions. Overlying soft tissues appear unremarkable. IMPRESSION: No acute cardiopulmonary disease process. Reviewed by: Kelly Lee MD, PhD on 05/29/2021 9:35 PM PDT Approved by: Kelly Lee MD, PhD on 05/29/2021 9:35 PM PDT Station ID: [id number]
[2021-05-29] MEDS ORDERED: INSULIN REGULAR HUMAN 100 UNIT in SODIUM CHLORIDE 0.9% 100ML 99 ML IV SCH (23:45)
--- NOTE | 2021-05-30 00:37 | HISTORY & PHYSICAL EXAMINATION ---
Chief Complaint - Chief Complaint Chief Complaint: nausa with emesis History of Present Illness - Admitted From Admitted From:: ED - History Obtained From Records Reviewed: yes History obtained from: patient Exam Limitations: none - History of Present Illness HPI Comment/Other: Pleasant 55 y/o male with hx CVA, Hyperlipidemia, HTN, GERD, Type 1 DM, hypothyroidism who presents with cyclical nausea and emesis with multiple e pisodes of nonbloody nonbilious emesis. He then developed upper back and shoulder pain later this afternoon. Patient had been evaluated for a home insulin pump that was approved but not yet set up. He has been out of his long- acting insulin for 2 days. He thought he was supposed to go for insulin pump training but that did not occur and he did not order more of his long-acting insulin. He denies recent illness with fever, cough, congestion, chest pain, difficulty breathing. He denies abdominal pain, diarrhea, dysuria. He does admit to regular cannabis use. In the ED he was found to be in DKA with serum ketones moderate and UA positive for ketones with a ph of 7.2 on VBG and initial bicarb of 13 and high AG 26. WBC was 13k with no signs or sx's of infection. Pseudohyponatremia with corrected sodium of 137 w/ no other electrolye abnormalities. Cr was elevated at 1.5 with baseline 1-1.4 w/ hx DM nephropathy. Was given 2 L of NS in ED along with morphine 4 mg IV x1, then placed on an insulin gtt at 8.8 units/hr gtt. ECG showed prolonged QT but was given zofran and promethazine previously in ED. CXR negative. Lipase was normal. UA shows>80 ketones Patient denies other symptoms. History - Past Medical History Cardiovascular: reports: Hypertension, High cholesterol, Other Respiratory: reports: Pneumonia Neuro: reports: CVA, Other Endocrine/Autoimmune: reports: Type 1 diabetes, HyPOthyroidism GI: reports: GERD, Ulcers, Colon polyps : reports: Other HEENT: reports: None Psych: reports: None Musculoskeletal: reports: None, Chronic back pain Derm: reports: None MRSA Hx?: No - Past Surgical History General: reports: Colonoscopy Ortho: reports: Carpal Tunnel surgery HEENT: reports: Other - Family & Social History Family History: Other family: CAD, CVA/TIA Family History Comment/Other: States his father had a myocardial infarction in his early 30s and he also had a stroke. His maternal side has a strong history of cardiac disease and strokes as well. Living arrangement: At home Living Situation: With spouse/s.o. Social History Notes: He lives at home with his spouse. He no longer smokes but did smoke a pack and half a day for about 13 years but quit in his 30s. He rarely drinks alcohol. 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 - Substance History Use: Uses substance without health or social issues: Cannabis - POLST Patient has POLST: No POLST Status: Full Code Meds/Allgy - Home Medications Home Medications: Ambulatory Orders Medication Instructions Recorded Confirmed Levothyroxine [Synthroid] 125 mcg PO QDAC 09/02/13 11/04/20 Insulin Lispro [Humalog] 0 - 20 units SQ TIDWM 01/29/16 11/04/20 Mirtazapine 45 mg PO QPM 07/02/18 11/04/20 Insulin NPH Human [NovoLIN N] 20 units SUBQ BID 03/20/19 11/04/20 Atorvastatin Calcium 1 tab PO DAILY 11/04/20 11/04/20 Donepezil [Aricept] 10 mg PO DAILY 11/04/20 11/04/20 Ondansetron Odt [Zofran] 4 mg TL Q6H PRN #10 tablet 11/04/20 Promethazine [Phenergan] 25 mg PO BID 11/04/20 11/04/20 Meloxicam [Mobic] 15 mg PO DAILY PRN #20 tablet 04/09/21 methylPREDNISolone [Medrol] 4 mg PO DAILY #1 tab 04/09/21 - Allergies Allergies/Adverse Reactions: Allergies Allergy/AdvReac Type Severity Reaction Status Date / Time omeprazole Allergy Intermediate Nausea Verified 05/29/21 20:42 insulin aspart Allergy Unknown Verified 05/29/21 20:42 [From Novolog U-100 Insulin aspart] insulin aspart protamine Allergy Unknown Verified 05/29/21 20:42 human [From Novolog Mix 70-30 U-100 Insuln] codeine AdvReac Severe Dizziness Verified 05/29/21 20:42 doxycycline AdvReac Intermediate Dizziness Verified 05/29/21 20:42 Review of Systems - Constitutional Constitutional: reports: Fatigue, Weakness. denies: Fever - Eyes Eyes: denies: Vision loss - Ears, Nose & Throat Ears, Nose & Throat: denies: Tinnitus, Vertigo, Sore throat - Cardiovascular Cariovascular: denies: Irregular heart rate, Palpitations, Syncope - Respiratory Respiratory: denies: Cough, Orthopnea, Pleuritic pain - Gastrointestinal Gastrointestinal: reports: Abdominal pain, Nausea, Vomiting. denies: Diarrhea, Black stools, Reflux/heartburn - Genitourinary Genitourinary: reports: Frequency. denies: Dysuria, Urgency, Hematuria, Flank pain - Musculoskeletal Musculoskeletal: reports: Muscle weakness. denies: Muscle pain - Neurological Neurological: reports: General weakness. denies: Dizziness, Numbness, Memory problems, Abnormal gait - Psychiatric Psychiatric: denies: Delusions, Hallucinations - Endocrine Endocrine: reports: Polyuria, Polydypsia - Hematologic/Lymphatic Hematologic/Lymphatic: denies: Petechiae, Blood clots, Recurrent infections - All Other Systems All Other Systems: reports: Reviewed and negative Prior Level of Functionality: Has good functional capacity Exam - Vital Signs Reviewed Vital Signs: Yes Vital Signs: Vital Signs x48h Temp Pulse Resp BP Pulse Ox 05/30/21 00:00 92 19 129/68 97 05/29/21 23:30 91 16 118/67 97 05/29/21 23:00 90 21 126/65 100 05/29/21 22:30 94 16 126/72 99 05/29/21 22:04 97 21 138/63 H 99 05/29/21 21:30 100 22 135/57 H 100 05/29/21 21:16 92 18 121/107 H 100 05/29/21 20:42 36.7 C 96 24 170/82 H 100 - Physical Exam General Appearance: positive: No acute distress, Alert Eyes Bilateral: positive: EOMI ENT: positive: Pharynx nml, Dry mucous membranes Neck: positive: Nml inspection, Thyroid nml, No JVD, Trachea midline. negative: Thyromegaly, Carotid bruit Respiratory: positive: Chest non-tender, No respiratory distress, Breath sounds nml. negative: Rales, Rhonchi Cardiovascular: positive: No murmur, No gallop. negative: Irregularly irregular, Tachycardia, JVD present Peripheral Pulses: positive: 2+ Abdomen: positive: No organomegaly, Nml bowel sounds, No distention, Tenderness. negative: Hepatomegaly Back: positive: Nml inspection Skin: positive: Color nml, No rash, Warm. negative: Diaphoresis, Pallor, Decubitus Neurologic/Psychiatric: positive: Oriented x3 Conclusion/Plan - Problem List (1) Diabetic ketoacidosis Conclusion/Plan: Continue with DKA protocol, lab monitoring, IVF's, anti-emetics. Qualifiers: Diabetes mellitus type: type 1 Diabetes mellitus complication detail: without coma Qualified Code(s): E10.10 - Type 1 diabetes mellitus with ketoacidosis without coma (2) SIRS (systemic inflammatory response syndrome) Conclusion/Plan: Patient met 2 SIRS criteria with leukocytosis WBC>12K and HR>90 on admit adrián kiser to DKA and inflammatory state as patient lacks fevers, cough, flank pain, dysuria without overt pyuria seen on UA. CXR shows no consolidation. Continue to monitor clinically. (3) SAMUEL (acute kidney injury) Conclusion/Plan: Secondary to DKA and intravascular depletion with prerenal component. 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 Will continue with hydration with IVF, electrolyte repletion, avoid nephrotoxic agents, lab monitoring. (4) Electrolyte abnormality Conclusion/Plan: Has a High anion gap metabolic acidosis with a pseudohyponatremia as a result of uncontrolled type 1 DM with DKA and SAMUEL. Will correct underlying etiology and continue with aggressive IVF's, insulin gtt, and electrolyte repletion. (5) Prolonged QT interval Conclusion/Plan: Secondary to promethazine and zofran as this was givn prior to ecg reading. No CP, syncope, sob or dizziness noted. Continue to monitor and repeat ECG as deemed appropriate. (6) Type 1 diabetes mellitus Conclusion/Plan: Patient has hx Type 1 DM for which he was approved for insulin pump and had not been on his long acting insulin for days. He presented with pseudohypernatremia with a corrected sodium of 137 and serum glucose of 568 with concominant DKA and SAMUEL. A1c to follow. Needs Diabetic teaching. Continue with above med mgmt and correction of DKA, electrolyte disturbance and will need to be placed on ISS with lantus once tolerating meals. Qualifiers: Diabetes mellitus complication status: with kidney complications (7) Hyperlipidemia Conclusion/Plan: Will resume atorvastatin once tolerating orals. Qualifiers: Hyperlipidemia type: unspecified Qualified Code(s): E78.5 - Hyperlipidemia, unspecified (8) Hypertension Conclusion/Plan: Does not appear to be on BP meds. Will continue to monitor for now. Qualifiers: Hypertension type: renovascular hypertension Qualified Code(s): I15.0 - Renovascular hypertension (9) Marijuana use Conclusion/Plan: May be contributing to his cyclical nausea and emesis or mild THC induced hyperemesis syndrome. May benefit from marinol use once tolerating oral feeds. - Lab Results Lab results reviewed: Yes Fish Bones: 05/29/21 20:25 05/29/21 20:25 - Diagnostic Imaging Results Diagnostic Imaging Results: positive: Final report reviewed - EKG Results EKG Interpreted Independently: Yes
[2021-05-30] MEDS: SODIUM CHLORIDE 0.9% 1,000 ML IV SCH ×2 (01:01→08:50)
[2021-05-30] MEDS: SODIUM CHLORIDE FLUSH 0.9% 10 ML SYRINGE IVP PRN ×2 (01:01→19:44)
[2021-05-30] MEDS: MORPHINE 2 MG/ML CARPUJECT IVP PRN ×2 (01:02→19:44)
[2021-05-30 01:09] LABS: VBG BASE EXCESS -8.8 mmol/L (-2 - +2); VBG HCO3 17.3 mmol/L (23-28); VBG OXYGEN SATURATION 58.4 % (60-80); VBG PH 7.275 (7.31-7.41); VBG PO2 31.7 mmHg (25-47); VBG TOTAL CO2 18.4 mmol/L (24-29)
[2021-05-30] MEDS: SODIUM CHLORIDE FLUSH 0.9% 10 ML SYRINGE IVP SCH ×3 (01:09→17:05)
[2021-05-30 01:15] LABS: CALCIUM 8.8 mg/dL (8.5-10.3); CREATININE 1.3 mg/dL (0.6-1.2); MAGNESIUM 2.2 mg/dL (1.7-2.8)
[2021-05-30] MEDS ORDERED: LORazepam 2 MG/ML VIAL IVP ONE (01:55)
[2021-05-30] MEDS: POTASSIUM CHLOR 10 MEQ/100 ML 10 MEQ/100 ML BAG IV SCH ×2 (02:09→03:07)
[2021-05-30 03:09] LABS: CALCIUM 8.2 mg/dL (8.5-10.3); CREATININE 1.1 mg/dL (0.6-1.2); POTASSIUM 4.1 mmol/L (3.5-5.0)
[2021-05-30] MEDS ORDERED: INSULIN GLARGINE 300 UNIT/3 ML PEN SUBQ SCH ×2 (04:38→21:00)
[2021-05-30 05:09] LABS: CALCIUM, IONIZED 1.19 mmol/L (1.15-1.33); VBG PH 7.335 (7.31-7.41)
[2021-05-30 05:11] LABS: BASOPHILS % (AUTO) 0.2 %; EOSINOPHILS % (AUTO) 0.1 %; HCT - HEMATOCRIT 36.6 % (42.0-52.0); HGB - HEMOGLOBIN 13.1 g/dL (14.0-18.0); LYMPHOCYTES # (AUTO) 1.2 10^3/uL (1.5-3.5); LYMPHOCYTES % (AUTO) 8.7 %; MEAN CORPUSCULAR HEMOGLOBIN 31.2 pg (27.0-31.0); MEAN CORPUSCULAR HGB CONC 35.8 g/dL (32.0-36.0); MEAN CORPUSCULAR VOLUME 87.1 fL (80.0-94.0); MONOCYTES # (AUTO) 1.3 10^3/uL (0.0-1.0); MONOCYTES % (AUTO) 9.5 %; NEUTROPHILS # (AUTO) 10.7 10^3/uL (1.5-6.6); NEUTROPHILS % (AUTO) 81.3 %; PLT - PLATELET COUNT 241 10^3/uL (130-450); RED CELL DISTRIBUTION WIDTH 12.1 % (12.0-15.0); WHITE BLOOD COUNT 13.2 x10^3/uL (4.8-10.8)
[2021-05-30 05:12] LABS: MUDS CUTOFF CONCENTRATIONS CUTOFF CONC BELOW:
[2021-05-30 05:20] LABS: CALCIUM 8.5 mg/dL (8.5-10.3); CREATININE 1.1 mg/dL (0.6-1.2); PHOSPHORUS 2.3 mg/dL (2.5-4.6); POTASSIUM 4.2 mmol/L (3.5-5.0)
[2021-05-30 05:24] LABS: THC CANNABINOID SCREEN, URINE POSITIVE (NEGATIVE)
[2021-05-30 05:25] LABS: AMPHETAMINE SCREEN,URINE NEGATIVE (NEGATIVE); BARBITURATE SCREEN,UR NEGATIVE (NEGATIVE); BENZODIAZEPINES SCREEN, URINE NEGATIVE (NEGATIVE); COCAINE SCREEN URINE NEGATIVE (NEGATIVE); METHADONE SCREEN, URINE NEGATIVE (NEGATIVE); METHAMPHETAMINES SCREEN, URINE NEGATIVE (NEGATIVE); OPIATE SCREEN, URINE POSITIVE (NEGATIVE); OXYCODONE SCREEN, URINE NEGATIVE (NEGATIVE); PROPOXYPHENE SCREEN, URINE NEGATIVE (NEGATIVE); TRICYCLIC ANTIDEPRESSANT,URINE NEGATIVE (NEGATIVE)
[2021-05-30] MEDS: INSULIN ASPART 300 UNIT/3 ML PEN SUBQ SCH ×6 (08:31→20:30)
[2021-05-30] MEDS: NEUTRA-PHOS 250 MG TABLET PO SCH ×2 (08:50→10:33)
[2021-05-30 13:41] LABS: ESTIMATED AVERAGE GLUCOSE 258 mg/dL (70-100); HEMOGLOBIN A1c% 10.6 % (4.27-6.07)
[2021-05-30] MEDS: PREGABALIN 25 MG CAPSULE PO SCH (20:29)
[2021-05-30] MEDS: MIRTAZAPINE 15 MG TABLET PO SCH (20:29)
[2021-05-30] MEDS: ATORVASTATIN 40 MG TABLET PO SCH (20:29)
[2021-05-31] MEDS: SODIUM CHLORIDE FLUSH 0.9% 10 ML SYRINGE IVP SCH ×3 (05:40→18:25)
[2021-05-31] MEDS: MORPHINE 2 MG/ML CARPUJECT IVP PRN ×4 (05:54→20:35)
[2021-05-31 06:07] LABS: ALBUMIN 3.4 g/dL (3.2-5.5); CALCIUM 8.3 mg/dL (8.5-10.3); CREATININE 0.9 mg/dL (0.6-1.2); PHOSPHORUS 2.7 mg/dL (2.5-4.6); POTASSIUM 3.6 mmol/L (3.5-5.0)
--- NOTE | 2021-05-31 07:43 | Discharge Plan ---
Discharge Plan Problem Reviewed?: Yes Disposition: Home, Self Care Condition: Stable Prescriptions: Insulin Glargine [Lantus Solostar] 40 unit SUBQ HS #3 each Ondansetron Odt [Zofran Odt] 4 mg TL Q6H PRN #10 tablet PRN Reason: Nausea / Vomiting Diet: Diabetic Activity Restrictions: Activity as Tolerated Instruction Topics: Gastroparesis, Diabetic Ketoacidosis Health Concerns: You were admitted to the hospital because of diabetic ketoacidosis. This occurred because your blood sugars were elevated for period of time which happened because you did not take the Lantus. We treated you with IV fluids and insulin and the ketoacidosis has resolved. You are now stable for discharge home. He also had vomiting which may be related to an upset stomach or gastroparesis. Your marijuana use may also contribute to this. As discussed, we recommend small frequent meals of the day and we have prescribed Zofran as needed. Please follow-up with a [facility] operator for further testing to see if you do have gastroparesis. Plan of Treatment: The plan is to go back on your previous insulin regimen including the Lantus and Humalog until you have the insulin pump initiated. You have a follow-up appointment next week for the insulin pump. We have been able to provide you with Lantus until you start the insulin pump. You may take the Zofran as needed for nausea. You may also eat small frequent meals for the nausea and vomiting as you may have gastroparesis. Assessment: Patient expressed understanding of the treatment plan. Additional Instructions or Follow Up instructions: Please follow-up with your primary care physician within 1 week. Please also follow-up with the diabetic educators regarding initiation of your insulin pump. Follow-Up Care: Dietitian No Smoking: If you smoke, Please STOP! Call for help. Follow-up with: Zackary Dean MD [Physician No Access] -
[2021-05-31 07:51] LABS: BASOPHILS # (AUTO) 0.1 10^3/uL (0.0-0.1); BASOPHILS % (AUTO) 0.7 %; EOSINOPHILS # (AUTO) 0.1 10^3/uL (0.0-0.7); EOSINOPHILS % (AUTO) 1.3 %; HCT - HEMATOCRIT 37.8 % (42.0-52.0); HGB - HEMOGLOBIN 13.3 g/dL (14.0-18.0); LYMPHOCYTES # (AUTO) 1.5 10^3/uL (1.5-3.5); MEAN CORPUSCULAR HEMOGLOBIN 31.1 pg (27.0-31.0); MEAN CORPUSCULAR HGB CONC 35.2 g/dL (32.0-36.0); MEAN CORPUSCULAR VOLUME 88.5 fL (80.0-94.0); MEAN PLATELET VOLUME 12.2 fL (7.4-11.4); MONOCYTES # (AUTO) 0.7 10^3/uL (0.0-1.0); MONOCYTES % (AUTO) 9.3 %; NEUTROPHILS # (AUTO) 4.9 10^3/uL (1.5-6.6); NEUTROPHILS % (AUTO) 67.4 %; PLT - PLATELET COUNT 191 10^3/uL (130-450); RED BLOOD COUNT 4.27 10^6/uL (4.70-6.10); RED CELL DISTRIBUTION WIDTH 12.2 % (12.0-15.0); WHITE BLOOD COUNT 7.2 x10^3/uL (4.8-10.8)
[2021-05-31] MEDS: INSULIN ASPART 300 UNIT/3 ML PEN SUBQ SCH ×6 (07:58→18:26)
[2021-05-31] MEDS: DONEPEZIL 5 MG TABLET PO SCH (08:40)
[2021-05-31] MEDS: PREGABALIN 25 MG CAPSULE PO SCH ×2 (08:41→20:39)
[2021-05-31] MEDS: ATOMOXETINE 25 MG PO SCH (08:41)
[2021-05-31] MEDS: HYDROcod/ACETAM 5/325 MG TABLET PO PRN (08:47)
--- NOTE | 2021-05-31 11:24 | DISCHARGE SUMMARY ---
"Discharge Summary Admit Date: 05/30/21 Discharge Date: 06/02/21 Discharging Provider: Tyler Howard Primary Care Provider: Zackayr Dean Code Status: Attempt Resuscitation Condition at Discharge: Stable Discharge Disposition: 01 Home, Self Care - DIAGNOSES Admission Diagnoses: Diabetic ketoacidosis [facility] SAMUEL Electrolyte normality Prolonged QT interval Type 1 diabetes mellitus Hyperlipidemia Hypertension Marijuana use Discharge Diagnoses with Status of Each Condition: Nausea and vomiting - resolved. Type 1 diabetes mellitus - stable. Diabetic ketoacidosis - resolved. Acute kidney injury - resolved. - HPI History of Present Illness: H&P per Dr. Ciu: Pleasant 55 y/o male with hx CVA, Hyperlipidemia, HTN, GERD, Type 1 DM, hypothyroidism who presents with cyclical nausea and emesis with multiple episodes of nonbloody nonbilious emesis. He then developed upper back and shoulder pain later this afternoon. Patient had been evaluated for a home insulin pump that was approved but not yet set up. He has been out of his long- acting insulin for 2 days. He thought he was supposed to go for insulin pump training but that did not occur and he did not order more of his long-acting i nsulin. He denies recent illness with fever, cough, congestion, chest pain, difficulty breathing. He denies abdominal pain, diarrhea, dysuria. He does admit to regular cannabis use. In the ED he was found to be in DKA with serum ketones moderate and UA positive for ketones with a ph of 7.2 on VBG and initial bicarb of 13 and high AG 26. WBC was 13k with no signs or sx's of infection. Pseudohyponatremia with corrected sodium of 137 w/ no other electrolye abnormalities. Cr was elevated at 1.5 with baseline 1-1.4 w/ hx DM nephropathy. Was given 2 L of NS in ED along with morphine 4 mg IV x1, then placed on an insulin gtt at 8.8 units/hr gtt. ECG showed prolonged QT but was given zofran and promethazine previously in ED. CXR negative. Lipase was normal. UA shows>80 ketones Patient denies other symptoms. - CONSULTS | PROCEDURES Consultations: family life educator - HOSPITAL COURSE Hospital Course: He was admitted to intensive care unit for diabetic ketoacidosis. He was treated with IV insulin and IV fluids. His anion gap closed quite quickly and he was transitioned to subcutaneous insulin and started on a diet. He did well the following day and then we plan to discharge him home the following morning as long as his blood glucose remained stable. On the day of planned discharge, he did well with breakfast but at lunchtime he began to develop emesis and abdominal pain. Repeat labs were obtained which showed no significant abnormalities. A CT was then obtained which showed no acute abnormalities. An NG tube was placed given he had ongoing emesis. He was started on Reglan as needed and continue with Zofran. He did well overnight and the NG tube was clamped and his diet was advanced. He continues to do well with this and so the NG tube was discontinued and he was discharged home the following day. His blood glucose was elevated at 400 on the day of discharge but this was because he did not receive his usual dose of Lantus the previous evening as his PO intake had been limited. The patient felt well and preferred to go home and felt comfortable managing his diabetes at home. He was asked to continue his previous Lantus regimen as he went into DKA due to the fact he ran out of Lant us. We provide him with the insulin. He will follow up with assistant health educator to start insulin pump the next week. He was also asked to continue to take the Humalog sliding scale he was previously using. We discussed that his emesis may have been due to gastroparesis or his marijuana use benefit from a GI referral. He may need a gastric emptying study to see if he has gas paresis. I did prov sarahi him with Zofran on discharge. Contact the patient a few hours after discharge to see how he was doing. He stated he felt well and he checked his blood glucose again which was 219. He was planning to eat dinner and will be taking his Humalog as he usually does. - ALLERGIES Allergies/Adverse Reactions: Allergies Allergy/AdvReac Type Severity Reaction Status Date / Time omeprazole Allergy Intermediate Nausea Verified 05/29/21 20:42 insulin aspart Allergy Unknown Verified 05/29/21 20:42 [From Novolog U-100 Insulin aspart] insulin aspart protamine Allergy Unknown Verified 05/29/21 20:42 human [From Novolog Mix 70-30 U-100 Insuln] codeine AdvReac Severe Dizziness Verified 05/29/21 20:42 doxycycline AdvReac Intermediate Dizziness Verified 05/29/21 20:42 - MEDICATIONS Home Medications: Ambulatory Orders Medication Instructions Recorded Confirmed Atomoxetine HCl [Strattera] 25 mg PO DAILY 05/30/21 05/30/21 Atorvastatin Calcium [Lipitor] 80 mg PO QPM 05/30/21 05/30/21 Donepezil HCl [Aricept] 10 mg PO DAILY 05/30/21 05/30/21 Insulin Glargine [Lantus Solostar] 40 unit SUBQ HS #3 each 05/30/21 Insulin Glargine [Lantus Solostar] 40 units SQ QPM 05/30/21 05/30/21 Insulin Lispro [Humalog] 0 - 20 units SQ TIDWM 05/30/21 05/30/21 Mirtazapine 45 mg PO QPM 05/30/21 05/30/21 Pregabalin [Lyrica] 50 mg PO BID 05/30/21 05/30/21 Ondansetron Odt [Zofran Odt] 4 mg TL Q6H PRN #10 tablet 05/31/21 - PHYSICAL EXAM AT DISCHARGE General Appearance: positive: No acute distress, Alert Eyes Bilateral: positive: Normal inspection, Conjunctivae nml ENT: positive: ENT inspection nml Neck: positive: Nml inspection Respiratory: positive: No respiratory distress. negative: Wheezes, Rales Cardiovascular: positive: Regular rate & rhythm, No murmur. negative: Tachycardia Abdomen: positive: Non-tender, No distention. negative: Tenderness Skin: positive: Warm, Dry Extremities: positive: No pedal edema Neurologic/Psychiatric: negative: Disoriented to person, Disoriented to place Physical Exam Other/Comments: Vital Signs - 24 hr 06/01/21 06/02/21 23:03 08:00 Temperature 36.6 C 36.8 C Heart Rate [ 62 68 Monitoring electrodes] Respiratory 18 16 Rate Blood Pressure 105/78 [Left Brachial artery] Blood Pressure 152/83 H [Right Brachial artery] O2 Saturation 96 97 Oxygen O2 Source [Without Activity] Room air O2 Source Room air - LABS Result Diagrams: 06/02/21 04:10 06/02/21 04:10 - FOLLOW UP Follow Up: He was asked to follow-up with assistant health educator next week as scheduled and to follow-up with his primary care physician within 1 to 2 weeks. - TIME SPENT Time Spent in Discharge (Minutes): 32"
[2021-05-31] MEDS: ONDANSETRON 4 MG/2 ML VIAL IVP PRN ×2 (12:53→18:25)
[2021-05-31] MEDS: SODIUM CHLORIDE FLUSH 0.9% 10 ML SYRINGE IVP PRN ×3 (15:11→20:51)
--- NOTE | 2021-05-31 15:17 | PROVIDER PROGRESS NOTE ---
Subjective - Prog Note Date Prog Note Date: 05/31/21 - Subjective Subjective: He tolerated breakfast well this morning shortly after lunch she had 2 large episodes of emesis. He is now complaining of abdominal pain and cramping. No bowel movement today but he is having flatus. He was looking forward to going home today. He denies a history of gastroparesis. He does smoke marijuana each night. Current Medications - Current Medications Current Medications: Active Medications Hydrocodone Bitart/Acetaminophen (Hydrocod/Acetam 5/325 Mg Tablet) 1 tab PO Q4HR PRN PRN Reason: Pain 5 to 7 Last Admin: 05/31/21 08:47 Dose: 1 tab Atorvastatin Calcium (Atorvastatin 40 Mg Tablet) 80 mg PO QPM [facility] Last Admin: 05/30/21 20:29 Dose: 80 mg Donepezil HCl (Donepezil 5 Mg Tablet) 10 mg PO DAILY [facility] Last Admin: 05/31/21 08:40 Dose: 10 mg Insulin Aspart (Insulin Aspart 300 Unit/3 Ml Pen) 12 unit SUBQ TIDWM [facility] Last Admin: 05/31/21 12:05 Dose: 12 unit Insulin Aspart (Insulin Aspart 300 Unit/3 Ml Pen) 1 - 9 unit SUBQ 0800,1200,1700,2100 [facility]; Protocol Last Admin: 05/31/21 12:05 Dose: 1 unit Insulin Glargine (Insulin Glargine 300 Unit/3 Ml Pen) 40 unit SUBQ QPM [facility] Last Admin: 05/30/21 20:30 Dose: 40 unit Mirtazapine (Mirtazapine 15 Mg Tablet) 45 mg PO QPM [facility] Last Admin: 05/30/21 20:29 Dose: 45 mg Morphine Sulfate (Morphine 2 Mg/Ml Carpuject) 2 mg IVP Q2HR PRN PRN Reason: Pain 8 to 10 Last Admin: 05/31/21 15:08 Dose: 2 mg Ondansetron HCl (Ondansetron 4 Mg/2 Ml Vial) 4 mg IVP Q6HR PRN PRN Reason: Nausea / Vomiting Last Admin: 05/31/21 12:53 Dose: 4 mg Atomoxetine [ Strattera] 25 Mg Capsule 1 each PO DAILY [facility] Last Admin: 05/31/21 08:41 Dose: Not Given Pregabalin (Pregabalin 25 Mg Capsule) 50 mg PO BID [facility] Last Admin: 05/31/21 08:41 Dose: 50 mg Prochlorperazine Edisylate (Prochlorperazine 10 Mg/2 Ml Vial) 10 mg IVP Q6HR PRN PRN Reason: Nausea / Vomiting Sodium Chloride (Sodium Chloride Flush 0.9% 10 Ml Syringe) 10 ml IVP PRN PRN PRN Reason: NEEDED PER PROVIDER ORDERS Last Admin: 05/31/21 15:11 Dose: 10 ml Sodium Chloride (Sodium Chloride Flush 0.9% 10 Ml Syringe) 10 ml IVP 0100,0900,1700 [facility] Last Admin: 05/31/21 08:41 Dose: 10 ml Atomoxetine HCl [Strattera] 25 mg PO DAILY 05/30/21 Atorvastatin Calcium [Lipitor] 80 mg PO QPM 05/30/21 Donepezil HCl [Aricept] 10 mg PO DAILY 05/30/21 Insulin Glargine [Lantus Solostar] 40 units SQ QPM 05/30/21 Insulin Lispro [Humalog] 0 - 20 units SQ TIDWM 05/30/21 Mirtazapine 45 mg PO QPM 05/30/21 Pregabalin [Lyrica] 50 mg PO BID 05/30/21 Objective - Vital Signs/Intake & Output Reviewed Vital Signs: Yes Vital Signs: Vital Signs x48h Temp Pulse Resp BP Pulse Ox 05/31/21 07:50 36.6 C 58 L 18 133/79 H 96 Intake & Output: Intake & Output 05/28/21 05/29/21 05/30/21 05/31/21 23:59 23:59 23:59 23:59 Intake Total 2049.5 3289.073 680 Output Total 125 1600 Balance 2049.5 4884.073 920 - Objective General Appearance: positive: Alert, Mild distress Eyes Bilateral: positive: Normal inspection, Conjunctivae nml ENT: positive: ENT inspection nml Neck: positive: Nml inspection Respiratory: positive: No respiratory distress. negative: Wheezes, Rales Cardiovascular: positive: Regular rate & rhythm, No murmur. negative: Tachycardia Abdomen: positive: No distention, Tenderness (Epigastric tenderness.). n egative: Non-tender, Guarding, Rebound Skin: positive: Warm, Dry Extremities: positive: No pedal edema Neurologic/Psychiatric: negative: Disoriented to person, Disoriented to place - Lab Results Fish Bones: 05/31/21 15:24 05/31/21 15:24 Other Labs: Lab Results x24hrs 05/31/21 05/31/21 Range/Units 05:41 05:41 WBC 7.2 (4.8-10.8) x10^3/uL RBC 4.27 L (4.70-6.10) 10^6/uL Hgb 13.3 L (14.0-18.0) g/dL Hct 37.8 L (42.0-52.0) % MCV 88.5 (80.0-94.0) fL MCH 31.1 H (27.0-31.0) pg MCHC 35.2 (32.0-36.0) g/dL RDW 12.2 (12.0-15.0) % Plt Count 191 (130-450) 10^3/uL MPV 12.2 H (7.4-11.4) fL Neut # (Auto) 4.9 (1.5-6.6) 10^3/uL Lymph # (Auto) 1.5 (1.5-3.5) 10^3/uL Orange # (Auto) 0.7 (0.0-1.0) 10^3/uL Eos # (Auto) 0.1 (0.0-0.7) 10^3/uL Baso # (Auto) 0.1 (0.0-0.1) 10^3/uL Absolute Nucleated RBC 0.00 x10^3/uL Nucleated RBC % 0.0 /100WBC Sodium 137 (135-145) mmol/L Potassium 3.6 (3.5-5.0) mmol/L Chloride 103 (101-111) mmol/L Carbon Dioxide 24 (21-32) mmol/L Anion Gap 10.0 (6-13) BUN 21 H (6-20) mg/dL Creatinine 0.9 (0.6-1.2) mg/dL Estimated GFR (MDRD) 87 L (>89) Glucose 118 H (70-100) mg/dL Calcium 8.3 L (8.5-10.3) mg/dL Phosphorus 2.7 (2.5-4.6) mg/dL Albumin 3.4 (3.2-5.5) g/dL Assessment/Plan - Problem List (1) Vomiting Impression: Given he is now having emesis with abdominal pain, we will delay his discharge until tomorrow. We will place him on a clear liquid diet instead of a carb controlled diet. We will repeat labs including CBC, BMP, liver panel, lipase and a lactic acid. We will hold off on imaging unless his pain persists or there are abnormalities. We will use Zofran as needed. Qualifiers: Vomiting type: unspecified Nausea presence: with nausea (2) Type 1 diabetes mellitus Impression: His blood glucose has been controlled on the current insulin regimen. Given his emesis, we will keep him on a clear liquid diet but continue the current insulin regimen with Lantus 40 units in the evening and 12 units of NovoLog with meals. We have also provided him with a prescription for Lantus to take in the interim until the insulin pump is initiated next week. (3) Diabetic ketoacidosis Impression: This is now resolved. This was secondary to missing his dose of Lantus. Qualifiers: Diabetes mellitus type: type 1 Diabetes mellitus complication detail: without coma Qualified Code(s): E10.10 - Type 1 diabetes mellitus with ketoacidosis without coma
[2021-05-31 15:37] LABS: BASOPHILS % (AUTO) 0.7 %; EOSINOPHILS % (AUTO) 0.5 %; HCT - HEMATOCRIT 39.4 % (42.0-52.0); HGB - HEMOGLOBIN 13.8 g/dL (14.0-18.0); LYMPHOCYTES % (AUTO) 17.5 %; MEAN CORPUSCULAR HEMOGLOBIN 30.7 pg (27.0-31.0); MEAN CORPUSCULAR VOLUME 87.6 fL (80.0-94.0); MEAN PLATELET VOLUME 11.4 fL (7.4-11.4); MONOCYTES # (AUTO) 0.4 10^3/uL (0.0-1.0); MONOCYTES % (AUTO) 7.6 %; NEUTROPHILS % (AUTO) 73.3 %; PLT - PLATELET COUNT 193 10^3/uL (130-450); RED CELL DISTRIBUTION WIDTH 12.1 % (12.0-15.0); WHITE BLOOD COUNT 5.5 x10^3/uL (4.8-10.8)
[2021-05-31 15:50] LABS: ALBUMIN 3.8 g/dL (3.2-5.5); BILIRUBIN,DIRECT 0.1 mg/dL (0.1-0.5); BILIRUBIN,TOTAL 0.6 mg/dL (0.2-1.0); CALCIUM 8.9 mg/dL (8.5-10.3); CREATININE 0.7 mg/dL (0.6-1.2); POTASSIUM 3.2 mmol/L (3.5-5.0); TOTAL PROTEIN 6.3 g/dL (6.7-8.2)
[2021-05-31] MEDS ORDERED: DEXTROSE 25% ABBOJECT 2.5 GM/10 ML SYRINGE IVP STA (16:31)
[2021-05-31] MEDS ORDERED: DEXTROSE 50% ABBOJECT 25 GM/50 ML SYRINGE IVP STA (16:41)
[2021-05-31] MEDS: POTASSIUM CHLOR 10 MEQ/100 ML 10 MEQ/100 ML BAG IV SCH ×4 (16:50→19:49)
[2021-05-31] MEDS ORDERED: DEXTROSE 50% ABBOJECT 25 GM/50 ML SYRINGE ONE (16:51)
--- NOTE | 2021-05-31 17:41 | PHARMACY PROGRESS NOTE ---
- Best Possible Medication History Admit Date and Time: 05/30/21 1827 Processed by: Pharmacy Medication History completed: Yes Patient Interview: Completed Secondary Source(s): Written medication list, Insurance records As the person ultimately responsible for medication therapy, providers are able to order a medication from an existing home medication list in [facility] via the "Reconcile Routine" prior to Confirmation of that medication by office support clerk. Such practice is discouraged except when the physician, in their clinical judgment, deems that a medical need exists for a medication without regard to previous use.
[2021-05-31] MEDS: PROCHLORPERAZINE 10 MG/2 ML VIAL IVP PRN (19:20)
--- NOTE | 2021-05-31 20:26 | PROVIDER PROGRESS NOTE ---
Wash Box Operator Note - Wash Box Operator Note Wash Box Operator Note: 2021 8:22 PM Mr. Meredith was getting ready to be discharged this morning when he began having nausea and vomiting. He has been miserable with nausea but not in severe pain. At change of shift around 7 PM he started having increasing abdominal pain and at 1500 cc of emesis. About an hour later, 8 PM, he had another episode of emesis that was about 350 cc. No blood. There is no abdominal pain just bloating. He is passing gas. The second pain that he complains of is mid back pain. He says that is a chronic problem at home. At home he really does not do anything for it. It is unchanged here but he was wondering if he could get morphine for the back pain as well as abdominal discomfort. There is no fever, chills. In reviewing today's labs potassium was low and he is on a K rider. But BUN and creatinine have normalized. White cell count has normalized. On review of his vital signs there is no fever. BP is normal. On examination he is alert, oriented. States that his mid abdomen hurts and demonstrates by using both hands to place them between the umbilicus and epigastrium. There is no respiratory distress. Lungs are clear. Regular rate and rhythm. The abdomen is soft, nondistended, hypoactive bowel sounds. No rebound or guarding. Skin is warm and dry. Extremities are without edema. can lift his legs off the bed w/o worsening back or abd pain. Back has pinpoint pain lower T spine that he states is unchanged and always there Assessment/plan 1. Nausea and vomiting in a gentleman who has diabetes. He has DKA that is resolved as of today. I would suspect that he has diabetic gastroparesis. +Use Reglan as well as Compazine and Zofran. + Check CT of the abdomen. +NG tube if CT confirms abdominal distention +continue MS q2h prn abd pain, not back pain. 2. Back pain. At home uses tylneol or motrin. No change managment while here. 11:30 pm he is unable to keep contrast down due to vomitting. NG placed and contrast given. June 01, 2021 01:30 as he was placed on the CT table, had emesis of the contrast. CT done without oral contrast. 03:35 Ct negative for obstruction. No acute findings.
[2021-05-31] MEDS ORDERED: NS W/20 MEQ KCL 1,000 ML IV STA (20:27)
[2021-05-31] MEDS ORDERED: IOVERSOL 320 100 ML VIAL IVP ONE (20:39)
[2021-05-31] MEDS: MIRTAZAPINE 15 MG TABLET PO SCH (20:39)
[2021-05-31] MEDS: ATORVASTATIN 40 MG TABLET PO SCH (20:39)
[2021-05-31] MEDS ORDERED: IOVERSOL 320 50 ML VIAL ONE (20:41)
[2021-05-31] MEDS: METOCLOPRAMIDE 10 MG/2 ML VIAL IVP PRN (20:50)
[2021-05-31] MEDS: INSULIN GLARGINE 300 UNIT/3 ML PEN SUBQ SCH (22:16)
[2021-06-01] MEDS: INSULIN REGULAR HUMAN 300 UNIT/3 ML VIAL SUBQ SCH ×5 (00:04→23:04)
[2021-06-01] MEDS: SODIUM CHLORIDE FLUSH 0.9% 10 ML SYRINGE IVP SCH ×3 (00:05→16:59)
[2021-06-01] MEDS: MORPHINE 2 MG/ML CARPUJECT IVP PRN (00:09)
--- NOTE | 2021-06-01 00:09 | XRAY Report ---
PROCEDURE: Chest for Line Placement INDICATIONS: NG tube placement TECHNIQUE: One view of the chest was acquired. COMPARISON: 05/29/2021. FINDINGS: Surgical changes and devices: NG tube projects across the GE junction with distal tip and side-port p rojecting over the proximal stomach. Lungs and pleura: No pleural effusions or pneumothorax. Lungs are clear. Mediastinum: Mediastinal contours appear normal. Heart size is normal. Bones and chest wall: No suspicious bony lesions. Overlying soft tissues appear unremarkable. IMPRESSION: NG tube distal tip and side-port project over the proximal stomach. Reviewed by: Kelly Lee MD, PhD on 06/01/2021 12:09 AM PDT Approved by: Kelly Lee MD, PhD on 06/01/2021 12:09 AM PDT Station ID: [id number]
[2021-06-01] MEDS: PROCHLORPERAZINE 10 MG/2 ML VIAL IVP PRN (01:49)
[2021-06-01] MEDS: SODIUM CHLORIDE FLUSH 0.9% 10 ML SYRINGE IVP PRN ×2 (01:49→05:45)
[2021-06-01] MEDS ORDERED: IOVERSOL 320 50 ML VIAL PO ONE (01:57)
[2021-06-01] MEDS: METOCLOPRAMIDE 10 MG/2 ML VIAL IVP PRN ×2 (05:41→12:00)
[2021-06-01 06:41] LABS: ALBUMIN 3.4 g/dL (3.2-5.5); CALCIUM 8.5 mg/dL (8.5-10.3); CREATININE 0.7 mg/dL (0.6-1.2); PHOSPHORUS 2.4 mg/dL (2.5-4.6); POTASSIUM 3.9 mmol/L (3.5-5.0)
[2021-06-01] MEDS ORDERED: NS W/20 MEQ KCL 1,000 ML IV STA (06:50)
[2021-06-01 08:00] LABS: BASOPHILS % (AUTO) 0.4 %; EOSINOPHILS % (AUTO) 0.3 %; HCT - HEMATOCRIT 37.9 % (42.0-52.0); HGB - HEMOGLOBIN 13.4 g/dL (14.0-18.0); LYMPHOCYTES # (AUTO) 1.1 10^3/uL (1.5-3.5); LYMPHOCYTES % (AUTO) 14.9 %; MEAN CORPUSCULAR HEMOGLOBIN 31.1 pg (27.0-31.0); MEAN CORPUSCULAR HGB CONC 35.4 g/dL (32.0-36.0); MEAN CORPUSCULAR VOLUME 87.9 fL (80.0-94.0); MEAN PLATELET VOLUME 11.8 fL (7.4-11.4); MONOCYTES # (AUTO) 0.6 10^3/uL (0.0-1.0); MONOCYTES % (AUTO) 8.2 %; NEUTROPHILS # (AUTO) 5.8 10^3/uL (1.5-6.6); NEUTROPHILS % (AUTO) 76.1 %; PLT - PLATELET COUNT 197 10^3/uL (130-450); RED BLOOD COUNT 4.31 10^6/uL (4.70-6.10); RED CELL DISTRIBUTION WIDTH 11.9 % (12.0-15.0); WHITE BLOOD COUNT 7.6 x10^3/uL (4.8-10.8)
--- NOTE | 2021-06-01 08:16 | CT Report ---
PROCEDURE: Abdomen/Pelvis WO INDICATIONS: sudden N/V abd pain TECHNIQUE: Noncontrast 5 mm thick sections acquired from the diaphragms to the symphysis. 5 mm coronal and sagi ttal reformats were then performed. For radiation dose reduction, the following was used: automated exposure control, adjustment of mA and/or kV according to patient size. COMPARISON: 06/06/2017. FINDINGS: Image quality: Excellent. ABDOMEN: Lung bases: There is mild dependent atelectasis bilaterally. Heart size is normal. Solid organs: Noncontrast evaluation of the liver demonstrates no discrete hepatic lesions. Gallbladd er appears within normal limits without calcified gallstones. Pancreas is normal in contours. No adr enal nodules. Spleen is normal in size. Kidneys demonstrate no hydronephrosis or renal stones. Peritoneum and bowel: There is a nasogastric tube extending to the stomach. The appendix is normal i n appearance. There is colonic diverticulosis without acute diverticulitis. Unenhanced bowel loops de monstrate normal wall thickness and caliber. No free fluid or air. Nodes and vessels: No retroperitoneal or mesenteric adenopathy by size criteria. Aorta and inferior vena cava are normal in caliber. Miscellaneous: No ventral hernias. PELVIS: Genitourinary: Bladder wall thickness is normal. Miscellaneous: No inguinal hernias or adenopathy. Bones: No suspicious bony lesions. There are mild superimposed compression deformities of the L1, L2 , and L5 vertebral bodies which appear unchanged. IMPRESSION: 1. No definite acute intra-abdominal abnormality. Specifically, no evidence of bowel obstruction, div erticulitis, or appendicitis. Reviewed by: Messi Wood MD on 06/01/2021 8:15 AM PDT Approved by: Messi Wood MD on 06/01/2021 8:15 AM PDT Station ID: [id number]
[2021-06-01] MEDS: INSULIN ASPART 300 UNIT/3 ML PEN SUBQ SCH ×4 (08:40→20:27)
[2021-06-01] MEDS: DONEPEZIL 5 MG TABLET PO SCH (09:57)
[2021-06-01] MEDS: ATOMOXETINE 25 MG PO SCH (09:57)
[2021-06-01] MEDS: PREGABALIN 25 MG CAPSULE PO SCH ×2 (10:06→20:26)
--- NOTE | 2021-06-01 18:18 | PROVIDER PROGRESS NOTE ---
Subjective - Prog Note Date Prog Note Date: 06/01/21 - Subjective Subjective: He feels better today but still has had limited p.o. intake and had a little vomiting this morning. Abdominal pain is improved. Current Medications - Current Medications Current Medications: Active Medications Hydrocodone Bitart/Acetaminophen (Hydrocod/Acetam 5/325 Mg Tablet) 1 tab PO Q4HR PRN PRN Reason: Pain 5 to 7 Last Admin: 05/31/21 08:47 Dose: 1 tab Atorvastatin Calcium (Atorvastatin 40 Mg Tablet) 80 mg PO QPM [facility] Last Admin: 05/31/21 20:39 Dose: Not Given Donepezil HCl (Donepezil 5 Mg Tablet) 10 mg PO DAILY [facility] Last Admin: 06/01/21 09:57 Dose: Not Given Insulin Aspart (Insulin Aspart 300 Unit/3 Ml Pen) 12 unit SUBQ TIDWM [facility] Last Admin: 06/01/21 16:58 Dose: 12 unit Insulin Glargine (Insulin Glargine 300 Unit/3 Ml Pen) 10 unit SUBQ QPM [facility] Last Admin: 05/31/21 22:16 Dose: 10 unit Insulin Human Regular (Insulin Regular Human 300 Unit/3 Ml Vial) 1 - 9 unit SUBQ Q6HR [facility]; Protocol Last Admin: 06/01/21 18:01 Dose: Not Given Metoclopramide HCl (Metoclopramide 10 Mg/2 Ml Vial) 5 mg IVP Q6HR PRN PRN Reason: Nausea / Vomiting Last Admin: 06/01/21 12:00 Dose: 5 mg Mirtazapine (Mirtazapine 15 Mg Tablet) 45 mg PO QPM [facility] Last Admin: 05/31/21 20:39 Dose: Not Given Morphine Sulfate (Morphine 2 Mg/Ml Carpuject) 2 mg IVP Q2HR PRN PRN Reason: Pain 8 to 10 Last Admin: 06/01/21 00:09 Dose: 2 mg Ondansetron HCl (Ondansetron 4 Mg/2 Ml Vial) 4 mg IVP Q6HR PRN PRN Reason: Nausea / Vomiting Last Admin: 05/31/21 18:25 Dose: 4 mg Atomoxetine [ Strattera] 25 Mg Capsule 1 each PO DAILY [facility] Last Admin: 06/01/21 09:57 Dose: Not Given Pregabalin (Pregabalin 25 Mg Capsule) 50 mg PO BID [facility] Last Admin: 06/01/21 10:06 Dose: Not Given Prochlorperazine Edisylate (Prochlorperazine 10 Mg/2 Ml Vial) 10 mg IVP Q6HR PRN PRN Reason: Nausea / Vomiting Last Admin: 06/01/21 01:49 Dose: 10 mg Sodium Chloride (Sodium Chloride Flush 0.9% 10 Ml Syringe) 10 ml IVP PRN PRN PRN Reason: NEEDED PER PROVIDER ORDERS Last Admin: 06/01/21 05:45 Dose: 10 ml Sodium Chloride (Sodium Chloride Flush 0.9% 10 Ml Syringe) 10 ml IVP 0100,0900,1700 [facility] Last Admin: 06/01/21 16:59 Dose: 10 ml Atomoxetine HCl [Strattera] 25 mg PO DAILY 05/30/21 Atorvastatin Calcium [Lipitor] 80 mg PO QPM 05/30/21 Donepezil HCl [Aricept] 10 mg PO DAILY 05/30/21 Insulin Glargine [Lantus Solostar] 40 units SQ QPM 05/30/21 Insulin Lispro [Humalog] 0 - 20 units SQ TIDWM 05/30/21 Mirtazapine 45 mg PO QPM 05/30/21 Pregabalin [Lyrica] 50 mg PO BID 05/30/21 Objective - Vital Signs/Intake & Output Reviewed Vital Signs: Yes Vital Signs: Vital Signs x48h Temp Pulse Resp BP Pulse Ox 06/01/21 16:00 36.8 C 60 14 137/82 H 98 Intake & Output: Intake & Output 05/29/21 05/30/21 05/31/21 06/01/21 23:59 23:59 23:59 23:59 Intake Total 2049.5 3289.407 6160.012 7752 Output Total 125 2250 1725 Balance 2049.5 3164.407 -984.167 -261 - Objective General Appearance: positive: Alert, Mild distress Eyes Bilateral: positive: Normal inspection, Conjunctivae nml ENT: positive: ENT inspection nml Neck: positive: Nml inspection Respiratory: positive: No respiratory distress. negative: Wheezes, Rales Cardiovascular: positive: Regular rate & rhythm. negative: Tachycardia Abdomen: positive: No distention, Tenderness (Mild epigastric pain). negative: Guarding, Rebound Skin: positive: Warm, Dry - Lab Results Fish Bones: 06/01/21 07:37 06/01/21 05:45 Other Labs: Lab Results x24hrs 06/01/21 06/01/21 Range/Units 07:37 05:45 WBC 7.6 (4.8-10.8) x10^3/uL RBC 4.31 L (4.70-6.10) 10^6/uL Hgb 13.4 L (14.0-18.0) g/dL Hct 37.9 L (42.0-52.0) % MCV 87.9 (80.0-94.0) fL MCH 31.1 H (27.0-31.0) pg MCHC 35.4 (32.0-36.0) g/dL RDW 11.9 L (12.0-15.0) % Plt Count 197 (130-450) 10^3/uL MPV 11.8 H (7.4-11.4) fL Neut # (Auto) 5.8 (1.5-6.6) 10^3/uL Lymph # (Auto) 1.1 L (1.5-3.5) 10^3/uL Winn # (Auto) 0.6 (0.0-1.0) 10^3/uL Eos # (Auto) 0.0 (0.0-0.7) 10^3/uL Baso # (Auto) 0.0 (0.0-0.1) 10^3/uL Absolute Nucleated RBC 0.00 x10^3/uL Nucleated RBC % 0.0 /100WBC Sodium 137 (135-145) mmol/L Potassium 3.9 (3.5-5.0) mmol/L Chloride 102 (101-111) mmol/L Carbon Dioxide 26 (21-32) mmol/L Anion Gap 9.0 (6-13) BUN 17 (6-20) mg/dL Creatinine 0.7 (0.6-1.2) mg/dL Estimated GFR (MDRD) 116 (>89) Glucose 159 H (70-100) mg/dL Calcium 8.5 (8.5-10.3) mg/dL Phosphorus 2.4 L (2.5-4.6) mg/dL Albumin 3.4 (3.2-5.5) g/dL Assessment/Plan - Problem List (1) Vomiting Impression: This is improved today. Suspect may related to gastroparesis or his marijuana use. CT showed no acute normalities. NG tube was placed yesterday evening and he had 300 cc of gastric content suctioned this morning. He feels improved we will clamp this and start him on a clear liquid diet. We will continue to schedule Reglan and Zofran as needed. If he does well throughout the day then we will discontinue the NG tube and advance his diet in anticipation of discharge tomorrow. Qualifiers: Vomiting type: unspecified Nausea presence: with nausea (2) Type 1 diabetes mellitus Impression: He was hypoglycemic yesterday evening due to his nausea vomiting and decreased oral intake. We will continue to decrease dose of Lantus this evening. Continue with NovoLog with meals as his blood glucose has been stable on this re gimen. As his p.o. intake increases we will resume his home Lantus. (3) Diabetic ketoacidosis Impression: This is resolved. Qualifiers: Diabetes mellitus type: type 1 Diabetes mellitus complication detail: without coma Qualified Code(s): E10.10 - Type 1 diabetes mellitus with ketoacidosis without coma
[2021-06-01] MEDS ORDERED: INSULIN ASPART 300 UNIT/3 ML PEN SUBQ SCH (19:49)
[2021-06-01] MEDS: ATORVASTATIN 40 MG TABLET PO SCH (20:25)
[2021-06-01] MEDS: HYDROcod/ACETAM 5/325 MG TABLET PO PRN (20:26)
[2021-06-01] MEDS: MIRTAZAPINE 15 MG TABLET PO SCH (20:26)
[2021-06-01] MEDS: INSULIN GLARGINE 300 UNIT/3 ML PEN SUBQ SCH (20:27)
[2021-06-02] MEDS: SODIUM CHLORIDE FLUSH 0.9% 10 ML SYRINGE IVP SCH (01:38)
[2021-06-02] MEDS: HYDROcod/ACETAM 5/325 MG TABLET PO PRN (04:11)
[2021-06-02 05:01] LABS: BASOPHILS % (AUTO) 0.5 %; EOSINOPHILS # (AUTO) 0.1 10^3/uL (0.0-0.7); EOSINOPHILS % (AUTO) 0.9 %; HCT - HEMATOCRIT 40.1 % (42.0-52.0); LYMPHOCYTES # (AUTO) 1.6 10^3/uL (1.5-3.5); LYMPHOCYTES % (AUTO) 23.9 %; MEAN CORPUSCULAR HEMOGLOBIN 30.8 pg (27.0-31.0); MEAN CORPUSCULAR HGB CONC 34.9 g/dL (32.0-36.0); MEAN CORPUSCULAR VOLUME 88.1 fL (80.0-94.0); MEAN PLATELET VOLUME 11.5 fL (7.4-11.4); MONOCYTES # (AUTO) 0.6 10^3/uL (0.0-1.0); NEUTROPHILS # (AUTO) 4.4 10^3/uL (1.5-6.6); NEUTROPHILS % (AUTO) 65.4 %; PLT - PLATELET COUNT 209 10^3/uL (130-450); RED BLOOD COUNT 4.55 10^6/uL (4.70-6.10); RED CELL DISTRIBUTION WIDTH 11.9 % (12.0-15.0); WHITE BLOOD COUNT 6.7 x10^3/uL (4.8-10.8)
[2021-06-02 05:14] LABS: ALBUMIN 3.6 g/dL (3.2-5.5); CALCIUM 8.9 mg/dL (8.5-10.3); CREATININE 0.6 mg/dL (0.6-1.2); POTASSIUM 3.5 mmol/L (3.5-5.0)
[2021-06-02] MEDS: INSULIN REGULAR HUMAN 300 UNIT/3 ML VIAL SUBQ SCH (05:36)
[2021-06-02 08:10] VITALS: BP 152/83
[2021-06-02] MEDS: INSULIN ASPART 300 UNIT/3 ML PEN SUBQ SCH ×4 (09:15→11:41)
[2021-06-02] MEDS: ATOMOXETINE 25 MG PO SCH (09:29)
[2021-06-02] MEDS: PREGABALIN 25 MG CAPSULE PO SCH (09:37)
[2021-06-02] MEDS: DONEPEZIL 5 MG TABLET PO SCH (09:37)
[2021-06-02] MEDS ORDERED: INSULIN GLARGINE 300 UNIT/3 ML PEN SUBQ SCH (21:00)
== END 2021-06-02 13:05 | disposition home or self-care (01) | DRG 638 ==
LOC: EDUNIT# → EDBD → ED 20:33 → ICU 23:56 → UNDOADMOB 23:56 → INTOOBSV 05-30 18:27 → OBSVTOIN 05-30 18:27 → ICU 06-01 09:50 → UNDOADMOB 06-01 09:50 → INTOOBSV 06-01 18:12 → OBSVTOIN 06-01 18:12 → UNDODISIN 06-02 13:05
PROVIDERS: ADMIT Family Medicine; ATTEND Internal Medicine
DX: E10.10 Type 1 diabetes mellitus with ketoacidosis without coma (principal); N17.9 Acute kidney failure, unspecified; Z79.4 Long term (current) use of insulin; E78.5 Hyperlipidemia, unspecified; E10.22 Type 1 diabetes mellitus with diabetic chronic kidney disease; Z20.822 Contact with and (suspected) exposure to COVID-19; E10.65 Type 1 diabetes mellitus with hyperglycemia; I12.9 Hypertensive chronic kidney disease with stage 1 through stage 4 chronic kidney disease, or unspecified chronic kidney disease; N18.2 Chronic kidney disease, stage 2 (mild); E03.9 Hypothyroidism, unspecified; R65.10 Systemic inflammatory response syndrome (SIRS) of non-infectious origin without acute organ dysfunction; T38.3X6A Underdosing of insulin and oral hypoglycemic [antidiabetic] drugs, initial encounter; Z91.128 Patient's intentional underdosing of medication regimen for other reason; K21.9 Gastro-esophageal reflux disease without esophagitis; Z86.73 Personal history of transient ischemic attack (TIA), and cerebral infarction without residual deficits; Z87.891 Personal history of nicotine dependence; R11.2 Nausea with vomiting, unspecified; R94.31 Abnormal electrocardiogram [ECG] [EKG]
CPT/HCPCS: 36415; 71045; 74176; 80048; 80053; 80069; 80076; 80306; 81003; 82009; 82330; 82803; 82947; 83036; 83605; 83690; 83735; 84100; 84484; 85025; 87150; 87635; 93005; 96365; 96375; 96376; 99285; 99291; A9270; G0378; J1815; J2060; J2765; J7040; Q0167; 81001; 87086

== ENCOUNTER 2021-09-11 09:08 | Emergency (ER) | payer MEDICARE ==
[2021-09-11] MEDS ORDERED: HYDROmorphone 1 MG/ML CARPUJECT IVP STA (09:16)
[2021-09-11] MEDS ORDERED: DROPERIDOL 5 MG/2 ML VIAL IVP STA (09:16)
[2021-09-11] MEDS ORDERED: SODIUM CHLORIDE 0.9% 1,000 ML IV STA ×2 (09:16→10:08)
[2021-09-11 09:45] LABS: BASOPHILS # (AUTO) 0.1 10^3/uL (0.0-0.1); BASOPHILS % (AUTO) 0.6 %; EOSINOPHILS % (AUTO) 0.1 %; HCT - HEMATOCRIT 45.7 % (42.0-52.0); HGB - HEMOGLOBIN 16.1 g/dL (14.0-18.0); LYMPHOCYTES # (AUTO) 0.6 10^3/uL (1.5-3.5); LYMPHOCYTES % (AUTO) 6.4 %; MEAN CORPUSCULAR HEMOGLOBIN 29.9 pg (27.0-31.0); MEAN CORPUSCULAR HGB CONC 35.2 g/dL (32.0-36.0); MEAN CORPUSCULAR VOLUME 84.9 fL (80.0-94.0); MEAN PLATELET VOLUME 11.6 fL (7.4-11.4); MONOCYTES # (AUTO) 0.3 10^3/uL (0.0-1.0); MONOCYTES % (AUTO) 2.8 %; NEUTROPHILS % (AUTO) 89.8 %; PLT - PLATELET COUNT 247 10^3/uL (130-450); RED BLOOD COUNT 5.38 10^6/uL (4.70-6.10); RED CELL DISTRIBUTION WIDTH 12.1 % (12.0-15.0); WHITE BLOOD COUNT 10.1 x10^3/uL (4.8-10.8)
[2021-09-11 09:52] LABS: INR 1.1 (0.8-1.2); PT - PROTHROMBIN TIME 12.4 secs (9.9-12.6)
[2021-09-11 10:03] LABS: ALBUMIN 4.9 g/dL (3.2-5.5); ALBUMIN/GLOBULIN RATIO 1.6 (1.0-2.2); BILIRUBIN,TOTAL 2.1 mg/dL (0.2-1.0); CALCIUM 10.2 mg/dL (8.5-10.3); CREATININE 1.4 mg/dL (0.6-1.2); POTASSIUM 4.3 mmol/L (3.5-5.0)
[2021-09-11] MEDS ORDERED: INSULIN REGULAR HUMAN 100 UNIT/1 ML 10 ML MDV IVP STA ×2 (10:07→11:37)
[2021-09-11 10:52] LABS: BILIRUBIN,URINE NEGATIVE (NEGATIVE); GLUCOSE, URINE (UA) >=1000 mg/dL (NEGATIVE); KETONES,URINE (UA) >=80 mg/dL (NEGATIVE); LEUKOCYTE ESTERASE, URINE NEGATIVE (NEGATIVE); NITRITE,URINE NEGATIVE (NEGATIVE); OCCULT BLOOD,URINE NEGATIVE (NEGATIVE); PH,URINE 5.5 PH (5.0-7.5); PROTEIN,URINE NEGATIVE (NEGATIVE); UROBILINOGEN,URINE 0.2 (NORMAL) E.U./dL (NORMAL)
[2021-09-11 11:08] LABS: CLARITY,URINE CLEAR (CLEAR)
[2021-09-11 12:38] VITALS: BP 132/65
--- NOTE | 2021-09-11 12:53 | ED Physician Documentation ---
PD HPI NVD - Stated complaint Stated Complaint: POSSIBLE GIB - Chief complaint Chief Complaint: Abd Pain - History obtained from History obtained from: Patient, EMS - Additonal information Additional information: The patient is brought to the emergency department by EMS for chief complaint of vomiting. He states that his vomitus has been brown that was not distinctively coffee-ground. No bright red blood. No history of GI bleed. Patient states his stools have been "dark" but were not necessarily black. He denies lightheadedness. He states that he is an insulin-dependent diabetic with a an i nsulin pump, and that generally the pump works well. However, he states couple of times a year, he has episodes where his sugars will run very high and the pump cannot seem to keep up. Patient does have rescue insulin for this but did not use any today because his pump had just given him a big bolus. The patient denies any other illness recently. He states he was feeling fine yesterday. Review of Systems Ten Systems: 10 systems reviewed and negative Constitutional: reports: Reviewed and negative Eyes: reports: Reviewed and negative Ears: reports: Reviewed and negative Nose: reports: Reviewed and negative Throat: reports: Reviewed and negative Cardiac: reports: Reviewed and negative Respiratory: reports: Reviewed and negative GI: reports: Nausea, Vomiting, Reviewed and negative : reports: Reviewed and negative Skin: reports: Reviewed and negative Musculoskeletal: reports: Reviewed and negative Neurologic: reports: Reviewed and negative Psychiatric: reports: Reviewed and negative Endocrine: reports: Reviewed and negative Immunocompromised: reports: Reviewed and negative PD PAST MEDICAL HISTORY - Past Medical History Cardiovascular: Hypertension, High cholesterol, Arrhythmia, Other Respiratory: Pneumonia Neuro: Dementia, CVA, Other Endocrine/Autoimmune: Type 1 diabetes, HyPOthyroidism GI: GERD, Ulcers, Colon polyps : Other HEENT: None Psych: None Musculoskeletal: Chronic back pain Derm: None - Past Surgical History Past Surgical History: Yes General: Colonoscopy Ortho: Carpal Tunnel surgery HEENT: Other - Present Medications Home Medications: Ambulatory Orders Medication Instructions Recorded Confirmed Atomoxetine HCl [Strattera] 25 mg PO DAILY 05/30/21 09/11/21 Atorvastatin Calcium [Lipitor] 80 mg PO QPM 05/30/21 09/11/21 Donepezil HCl [Aricept] 10 mg PO DAILY 05/30/21 09/11/21 Insulin Glargine [Lantus Solostar] 40 unit SUBQ HS #3 each 05/30/21 09/11/21 Insulin Lispro [Humalog] 0 - 20 units SQ TIDWM 05/30/21 09/11/21 Mirtazapine 45 mg PO QPM 05/30/21 09/11/21 Pregabalin [Lyrica] 50 mg PO BID 05/30/21 09/11/21 - Allergies Allergies/Adverse Reactions: Allergies Allergy/AdvReac Type Severity Reaction Status Date / Time omeprazole Allergy Intermediate Nausea Verified 05/29/21 20:42 insulin aspart Allergy Unknown Verified 05/29/21 20:42 [From Novolog U-100 Insulin aspart] insulin aspart protamine Allergy Unknown Verified 05/29/21 20:42 human [From Novolog Mix 70-30 U-100 Insuln] codeine AdvReac Severe Dizziness Verified 05/29/21 20:42 doxycycline AdvReac Intermediate Dizziness Verified 05/29/21 20:42 - Social History Does the pt smoke?: No Smoking Status: Never smoker Does the pt drink ETOH?: No Does the pt have substance abuse?: Yes Substance Use and Type: Marijuana - Immunizations Immunizations are current?: Yes - POLST Patient has POLST: No POLST Status: Full Code PD ED PE NORMAL - Vitals Vital signs reviewed: Yes - General General: Alert and oriented X 3, Well developed/nourished, Other (The patient is emotionally distraught and appears uncomfortable, holding an emesis bag to his mouth.) - HEENT HEENT: Atraumatic, PERRL, EOMI, Moist mucous membranes - Neck Neck: Supple, no meningeal sign - Cardiac Cardiac: RRR, No murmur, Strong equal pulses - Respiratory Respiratory: No respiratory distress, Clear bilaterally - Abdomen Abdomen: Soft, Non tender, Non distended - Derm Derm: Normal color, Warm and dry, No rash - Extremities Extremities: No deformity, No edema - Neuro Neuro: Alert and oriented X 3, 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 Alert when aroused and appropriate.) - Psych Psych: Normal mood, Normal affect Results - Vitals Vitals: Vital Signs - 24 hr 09/11/21 09/11/21 09/11/21 09:15 10:00 10:22 Temperature 36.5 C Heart Rate 80 87 97 Respiratory 32 H 17 12 Rate Blood Pressure 185/165 H 148/76 H 144/67 H O2 Saturation 100 99 100 09/11/21 09/11/21 09/11/21 11:00 11:27 11:56 Temperature 36.6 C Heart Rate 88 92 82 Respiratory 16 18 14 Rate Blood Pressure 118/54 L 118/54 L 131/65 H O2 Saturation 99 99 97 09/11/21 09/11/21 12:30 12:39 Temperature Heart Rate 83 83 Respiratory 16 16 Rate Blood Pressure 132/65 H 132/65 H O2 Saturation 98 98 Oxygen O2 Source [Without Activity] Room air O2 Source Room air - Labs Labs: Laboratory Tests 09/11/21 09/11/21 09/11/21 09:31 09:31 09:31 WBC 10.1 RBC 5.38 Hgb 16.1 Hct 45.7 MCV 84.9 MCH 29.9 MCHC 35.2 RDW 12.1 Plt Count 247 MPV 11.6 H Neut # (Auto) 9.0 H Lymph # (Auto) 0.6 L Bandera # (Auto) 0.3 Eos # (Auto) 0.0 Baso # (Auto) 0.1 Absolute Nucleated RBC 0.00 Nucleated RBC % 0.0 PT 12.4 INR 1.1 Sodium 135 Potassium 4.3 Chloride 96 L Carbon Dioxide 14 L Anion Gap 25.0 H BUN 39 H Creatinine 1.4 H Estimated GFR (MDRD) 52 L Glucose 561 H* Calcium 10.2 Total Bilirubin 2.1 H AST 21 ALT 23 Alkaline Phosphatase 67 Total Protein 8.0 Albumin 4.9 Globulin 3.1 Albumin/Globulin Ratio 1.6 Lipase 32 Urine Color Urine Clarity Urine pH Ur Specific [place] Urine Protein Urine Glucose (UA) Urine Ketones Urine Occult Blood Urine Nitrite Urine Bilirubin Urine Urobilinogen Ur Leukocyte Esterase Ur Microscopic Review Urine Culture Comments Serum Ketones Blood Type Blood Type Recheck Antibody Screen 09/11/21 09/11/21 09/11/21 09:31 09:37 10:00 WBC RBC Hgb Hct MCV MCH MCHC RDW Plt Count MPV Neut # (Auto) Lymph # (Auto) Band[place] # (Auto) Eos # (Auto) Baso # (Auto) Absolute Nucleated RBC Nucleated RBC % PT INR Sodium Potassium Chloride Carbon Dioxide Anion Gap BUN Creatinine Estimated GFR (MDRD) Glucose Calcium Total Bilirubin AST ALT Alkaline Phosphatase Total Protein Albumin Globulin Albumin/Globulin Ratio Lipase Urine Color Urine Clarity Urine pH Ur Specific [place] Urine Protein Urine Glucose (UA) Urine Ketones Urine Occult Blood Urine Nitrite Urine Bilirubin Urine Urobilinogen Ur Leukocyte Esterase Ur Microscopic Review Urine Culture Comments Serum Ketones SMALL H Blood Type A NEGATIVE Blood Type Recheck A NEGATIVE Antibody Screen NEGATIVE 09/11/21 10:18 WBC RBC Hgb Hct MCV MCH MCHC RDW Plt Count MPV Neut # (Auto) Lymph # (Auto) [place] # (Auto) Eos # (Auto) Baso # (Auto) Absolute Nucleated RBC Nucleated RBC % PT INR Sodium Potassium Chloride Carbon Dioxide Anion Gap BUN Creatinine Estimated GFR (MDRD) Glucose Calcium Total Bilirubin AST ALT Alkaline Phosphatase Total Protein Albumin Globulin Albumin/Globulin Ratio Lipase Urine Color YELLOW Urine Clarity CLEAR Urine pH 5.5 Ur Specific [place] 1.020 Urine Protein NEGATIVE Urine Glucose (UA) >=1000 H Urine Ketones >=80 H Urine Occult Blood NEGATIVE Urine Nitrite NEGATIVE Urine Bilirubin NEGATIVE Urine Urobilinogen 0.2 (NORMAL) Ur Leukocyte Esterase NEGATIVE Ur Microscopic Review NOT INDICATED Urine Culture Comments NOT INDICATED Serum Ketones Blood Type Blood Type Recheck Antibody Screen PD MEDICAL DECISION MAKING - ED course Complexity details: reviewed results, re-evaluated patient, considered differential, d/w patient ED course: The patient was evaluated upon arrival by myself in the emergency department. He has been found to have a blood sugar of 550, roughly, in route, so IV was placed and Patient was evaluated with laboratory studies. He was started on a liter of point in normal saline and given a dose of droperidol and a small dose of Dilaudid, in addition to the 8 mg of Zofran he had received in route. Labs showed a normal H&H, and a blood sugar in the 560s. The patient was initially given 12 units of insulin IV 30 minutes after which the patient's blood sugar was found to be 405. The patient was then given another 12 units of insulin IV, following which the patient's blood sugar was around 300. He had been given a total of 2 L of 0.9 normal saline and was found to be feeling much better after symptomatic intervention. I discussed with the patient that I did not find evidence of a significant GI bleed with his H&H being normal and no further emesis in the emergency department. I discussed with the patient that he needs to monitor his sugars frequently and should check his insulin pump reading once every hour. If he is getting blood sugar reads that are above 250, I have asked him to refer to the sliding scale I have made for him and give himself a dose of insulin. We have discussed the need for follow-up and the usual indications for return. Departure - Departure Disposition: 01 Home, Self Care Clinical Impression: Hyperglycemia due to diabetes mellitus, Vomiting Condition: Stable Instructions: ED Hyperglycemia Diabetic, ED Nausea Vomiting Comments: Your labs look good, other than your sugar being very high. There is no evidence that you have lost a significant amount of blood, as your blood levels are completely normal. It is not clear why your insulin pump is not keeping up with your blood sugar, but at this point, you should use your rescue insulin to augment your insulin pump and help keep your sugars under control. We have given you 2 doses of insulin in the emergency department and have brought your bood sugar down significantly. You should check once an hour to see what your pump is reading. If you are getting a level that is more than 250, you should give yourself a dose of your regular insulin at home. You may use the following sliding scale to determine how much insulin to give yourself: If blood sugar is: 250-300, give 6 units 301-350, give 8 units 351-400, give 10 units 401-450, give 12 units >451, return to the emergency department. Please make an appointment to follow-up with your doctor as soon as possible to have your pump reevaluated and make sure it is working properly. Discharge Date/Time: 09/11/21 13:06
== END 2021-09-11 13:06 | disposition home or self-care (01) ==
LOC: EDUNIT# → ED 09:08
DX: R11.2 Nausea with vomiting, unspecified (principal); E10.65 Type 1 diabetes mellitus with hyperglycemia; Z79.4 Long term (current) use of insulin; I10 Essential (primary) hypertension
CPT/HCPCS: 36415; 80053; 81003; 82009; 83690; 85025; 85610; 86850; 86900; 86901; 96361; 96374; 96375; 99283; 99284; J1170; J1815; 81001; 87086

== ENCOUNTER → 2021-09-11 | Outpatient (CLI) | payer MEDICARE | END | disposition critical access hospital (66) | LOC: EMS 08:48 | DX: R11.2 Nausea with vomiting, unspecified (principal); R19.5 Other fecal abnormalities; R10.84 Generalized abdominal pain; E10.65 Type 1 diabetes mellitus with hyperglycemia; Z96.41 Presence of insulin pump (external) (internal) | CPT/HCPCS: A0425; A0427 ==

== ENCOUNTER 2021-10-02 12:01 | Outpatient (CLI) | payer MEDICARE | END 2021-10-02 12:02 | disposition critical access hospital (66) | LOC: EMS 12:01 | DX: R51.9 Headache, unspecified (principal); R11.0 Nausea; M25.50 Pain in unspecified joint; R53.81 Other malaise; T63.441A Toxic effect of venom of bees, accidental (unintentional), initial encounter | CPT/HCPCS: A0425; A0427 ==

== ENCOUNTER 2021-10-02 12:21 | Emergency (ER) | payer MEDICARE ==
[2021-10-02] MEDS ORDERED: ONDANSETRON 4 MG/2 ML VIAL IVP STA (12:37)
[2021-10-02] MEDS ORDERED: diphenhydrAMINE INJ 50 MG/ML VIAL IVP STA (12:37)
--- NOTE | 2021-10-02 13:15 | ED Physician Documentation ---
History of Present Illness - Stated complaint Stated Complaint: BEE STING - Chief complaint Chief Complaint: General - History obtained from History obtained from: Patient, EMS - History of Present Illness Timing: Today Pain level max: 0 Pain level now: 0 - Additonal information Additional information: Patient is a 56-year-old male who presents to the emergency department stating he was stung by a bee on the left forehead. He states he had a mild headache and nausea afterwards. No difficulty breathing. No tongue swelling. No difficulty speaking. Nothing made it better or worse. This occurred about 2 hours prior to arrival. He states he had an allergic reaction as a child. EMS was called, EMS did not give any medication. Currently the patient still has a little bit of nausea and a mild headache. No rash. No wheezing. No stridor. Review of Systems Constitutional: denies: Fever, Chills Throat: denies: Sore throat Cardiac: denies: Chest pain / pressure, Palpitations Respiratory: denies: Cough GI: reports: Nausea. denies: Vomiting, Diarrhea Skin: denies: Rash Musculoskeletal: denies: Neck pain, Back pain Neurologic: denies: Headache PD PAST MEDICAL HISTORY - Past Medical History Past Medical History: Yes Cardiovascular: Hypertension, High cholesterol, Arrhythmia, Other Respiratory: Pneumonia Neuro: Dementia, CVA, Other Endocrine/Autoimmune: Type 1 diabetes, HyPOthyroidism GI: GERD, Ulcers, Colon polyps : Other HEENT: None Psych: None Musculoskeletal: Chronic back pain Derm: None - Past Surgical History Past Surgical History: Yes General: Colonoscopy Ortho: Carpal Tunnel surgery HEENT: Other - Present Medications Home Medications: Ambulatory Orders Medication Instructions Recorded Confirmed Atomoxetine HCl [Strattera] 25 mg PO DAILY 05/30/21 09/11/21 Atorvastatin Calcium [Lipitor] 80 mg PO QPM 05/30/21 09/11/21 Donepezil HCl [Aricept] 10 mg PO DAILY 05/30/21 09/11/21 Insulin Glargine [Lantus Solostar] 40 unit SUBQ HS #3 each 05/30/21 09/11/21 Insulin Lispro [Humalog] 0 - 20 units SQ TIDWM 05/30/21 09/11/21 Mirtazapine 45 mg PO QPM 05/30/21 09/11/21 Pregabalin [Lyrica] 50 mg PO BID 05/30/21 09/11/21 EPINEPHrine [Epinephrine] 0.3 mg IJ ONCE PRN #1 dis.syr 10/02/21 - Allergies Allergies/Adverse Reactions: Allergies Allergy/AdvReac Type Severity Reaction Status Date / Time omeprazole Allergy Intermediate Nausea Verified 10/02/21 12:35 insulin aspart Allergy Unknown Verified 10/02/21 12:35 [From Novolog U-100 Insulin aspart] insulin aspart protamine Allergy Unknown Verified 10/02/21 12:35 human [From Novolog Mix 70-30 U-100 Insuln] codeine AdvReac Severe Dizziness Verified 10/02/21 12:35 doxycycline AdvReac Intermediate Dizziness Verified 10/02/21 12:35 - Social History Does the pt smoke?: No Smoking Status: Never smoker Does the pt drink ETOH?: No Does the pt have substance abuse?: Yes - Immunizations Immunizations are current?: Yes - POLST Patient has POLST: No POLST Status: Full Code PD ED PE NORMAL - Vitals Vital signs reviewed: Yes - General General: Alert and oriented X 3, No acute distress, Well developed/nourished - HEENT HEENT: PERRL, Moist mucous membranes, Pharynx benign - Neck Neck: Supple, no meningeal sign - Cardiac Cardiac: RRR, Strong equal pulses - Respiratory Respiratory: No respiratory distress, Clear bilaterally - Abdomen Abdomen: Soft, Non tender, Non distended - Derm Derm: Warm and dry - Extremities Extremities: No edema, No calf tenderness / cord - Neuro Neuro: Alert and oriented X 3 - Psych Psych: Normal mood, Normal affect Results - Vitals Vitals: Vital Signs - 24 hr 10/02/21 10/02/21 12:31 13:32 Temperature 36.4 C L Heart Rate 55 L 54 L Respiratory 14 14 Rate Blood Pressure 113/98 H 139/72 H O2 Saturation 99 100 Oxygen O2 Source [Without Activity] Room air O2 Source Room air PD MEDICAL DECISION MAKING - ED course Complexity details: reviewed results, re-evaluated patient, considered differential, d/w patient ED course: 56-year-old male status post a bee sting today. Did not have anaphylaxis. He was mildly nauseated and this resolved with Zofran. He was given a dose of Benadryl. He is asymptomatic after observation in the emergency department. He will follow-up with his doctor for further care. No urticaria. No stridor. No wheezing. Normal phonation. No trismus. Patient counseled regarding signs and symptoms for which I believe and urgent re-evaluation would be necessary. Patient with good understanding of and agreement to plan and is comfortable going home at this time This document was made in part using voice recognition software. While efforts are made to proofread this document, sound alike and grammatical errors may occur. Departure - Departure Disposition: 01 Home, Self Care Clinical Impression: Bee sting Qualifiers: Encounter type: initial encounter Injury intent: undetermined intent Qualified Code(s): T63.444A - Toxic effect of venom of bees, undetermined, initial encounter Condition: Good Instructions: ED Bite Sting Insect Gen Allergic React Follow-Up: Your,doctor As needed [Other] Prescriptions: EPINEPHrine [Epinephrine] 0.3 mg IJ ONCE PRN #1 dis.syr PRN Reason: Anaphylaxis Comments: Your prescription was sent to [facility] in [place]. Please return if you worsen. You do not show any signs of anaphylaxis today. Discharge Date/Time: 10/02/21 13:33
[2021-10-02 13:34] VITALS: BP 139/72
== END 2021-10-02 13:33 | disposition home or self-care (01) ==
LOC: EDSEX → EDUNIT# → ED 12:21
DX: T63.441A Toxic effect of venom of bees, accidental (unintentional), initial encounter (principal); R11.0 Nausea; R51.9 Headache, unspecified
CPT/HCPCS: 96374; 96375; 99282; 99283; J1200

== ENCOUNTER 2021-11-24 10:59 | Outpatient (CLI) | payer MEDICARE | END 2021-11-24 11:00 | disposition critical access hospital (66) | LOC: EMS 10:59 | DX: M25.562 Pain in left knee (principal); M79.89 Other specified soft tissue disorders | CPT/HCPCS: A0425; A0429 ==

== ENCOUNTER 2021-11-24 11:16 | Emergency (ER) | payer MEDICARE ==
[2021-11-24] MEDS ORDERED: KETOROLAC 30 MG/ML VIAL IM STA (11:28)
[2021-11-24] MEDS ORDERED: oxyCODONE 5 MG TABLET PO STA (11:28)
--- NOTE | 2021-11-24 11:31 | ED Physician Documentation ---
PD HPI LOWER EXT INJURY - Stated complaint Stated Complaint: BUG BITE - Chief complaint Chief Complaint: Ext Problem - History obtained from History obtained from: Patient - History of Present Illness PD HPI LOW EXT INJURY LOCATION: Left, Knee Type of injury: Other (considers possible bug bite but not sure.). No: Fall, Twist Timing - details: Gradual onset, Still present Worsened by: Moving. No: Palpating Associated symptoms: No: Weakness, Numbness Review of Systems Constitutional: denies: Fever, Chills Neurologic: denies: Generalized weakness, Numbness PD PAST MEDICAL HISTORY - Past Medical History Cardiovascular: Hypertension, High cholesterol, Arrhythmia, Other Respiratory: Pneumonia Neuro: Dementia, CVA, Other Endocrine/Autoimmune: Type 1 diabetes, HyPOthyroidism GI: GERD, Ulcers, Colon polyps : Other HEENT: None Psych: None Musculoskeletal: Chronic back pain Derm: None - Past Surgical History Past Surgical History: Yes General: Colonoscopy Ortho: Carpal Tunnel surgery HEENT: Other - Present Medications Home Medications: Ambulatory Orders Medication Instructions Recorded Confirmed Atomoxetine HCl [Strattera] 25 mg PO DAILY 05/30/21 09/11/21 Atorvastatin Calcium [Lipitor] 80 mg PO QPM 05/30/21 09/11/21 Donepezil HCl [Aricept] 10 mg PO DAILY 05/30/21 09/11/21 Insulin Glargine [Lantus Solostar] 40 unit SUBQ HS #3 each 05/30/21 09/11/21 Insulin Lispro [Humalog] 0 - 20 units SQ TIDWM 05/30/21 09/11/21 Mirtazapine 45 mg PO QPM 05/30/21 09/11/21 Pregabalin [Lyrica] 50 mg PO BID 05/30/21 09/11/21 EPINEPHrine [Epinephrine] 0.3 mg IJ ONCE PRN #1 dis.syr 10/02/21 Naproxen 250 mg PO TID 7 Days #15 tablet 11/24/21 Sulfamethox/Trimeth 800/160 1 each PO BID #10 tablet 11/24/21 [Bactrim Ds 800/160] cephALEXin [Keflex] 500 mg PO QID 5 Days #20 cap 11/24/21 oxyCODONE [Roxicodone] 5 mg PO Q4H PRN #20 tablet 11/24/21 - Allergies Allergies/Adverse Reactions: Allergies Allergy/AdvReac Type Severity Reaction Status Date / Time omeprazole Allergy Intermediate Nausea Verified 11/24/21 11:26 insulin aspart Allergy Unknown Verified 11/24/21 11:26 [From Novolog U-100 Insulin aspart] insulin aspart protamine Allergy Unknown Verified 11/24/21 11:26 human [From Novolog Mix 70-30 U-100 Insuln] codeine AdvReac Severe Dizziness Verified 11/24/21 11:26 doxycycline AdvReac Intermediate Dizziness Verified 11/24/21 11:26 - Social History Does the pt smoke?: No Smoking Status: Never smoker Does the pt drink ETOH?: No Does the pt have substance abuse?: Yes - Immunizations Immunizations are current?: Yes - POLST Patient has POLST: No POLST Status: Full Code PD ED PE NORMAL - Vitals Vital signs reviewed: Yes - General General: Alert and oriented X 3, No acute distress, Well developed/nourished - Abdomen Abdomen: Soft, Non tender - Back Back: No CVA TTP, No spinal TTP - Derm Derm: Normal color, Warm and dry, Other (redness with warmth and marked tenderness anterior right knee, more to lateral aspect. Has small feeling effusion in bursa. No joint effusion. There is some irregular cborder shape.) Results - Vitals Vitals: Vital Signs - 24 hr 11/24/21 11/24/21 11:22 12:57 Temperature 37.0 C 36.8 C Heart Rate 77 76 Respiratory 16 16 Rate Blood Pressure 142/69 H 130/70 O2 Saturation 100 100 Oxygen O2 Source [Without Activity] Room air O2 Source Room air - Labs Labs: Laboratory Tests 11/24/21 11/24/21 11:42 11:42 WBC 8.0 RBC 4.76 Hgb 14.3 Hct 42.1 MCV 88.4 MCH 30.0 MCHC 34.0 RDW 12.7 Plt Count 173 MPV 11.1 Neut # (Auto) 6.5 Lymph # (Auto) 0.7 L Pettis # (Auto) 0.7 Eos # (Auto) 0.0 Baso # (Auto) 0.0 Absolute Nucleated RBC 0.00 Nucleated RBC % 0.0 Sodium 137 Potassium 3.9 Chloride 102 Carbon Dioxide 27 Anion Gap 8.0 BUN 19 Creatinine 1.1 Estimated GFR (MDRD) 69 L Glucose 108 H Calcium 8.7 C-Reactive Protein 4.4 H Procedures - Arthrocentesis Joint: Knee (prepatellar bursal area) Preparation: Sterile prep and drape Anesthesia: Lidocaine 1% Fluid: Other (unable to get any fluid.) Aftercare: Dressing applied, Patient tolerated well PD MEDICAL DECISION MAKING - ED course Complexity details: reviewed results (unable to find/get fluid out from the bursal area. ), considered differential (seems like prepatelllar bursitis with concern for infectious. No history of gout. Could be inflammatory but has soem red streaking proximal on lateral side concerning for lympangitis. The rash does not extend medially. Mild inguinal adenopathy. Attempted tapping the bursal area as felt some effusion), d/w patient Departure - Departure Disposition: 01 Home, Self Care Clinical Impression: Prepatellar bursitis of left knee Condition: Stable Record reviewed to determine appropriate education?: Yes Instructions: ED Bursitis Follow-Up: Zackary Dean MD [Primary Care Provider] - Prescriptions: Sulfamethox/Trimeth 800/160 [Bactrim Ds 800/160] 1 each PO BID #10 tablet cephALEXin [Keflex] 500 mg PO QID 5 Days #20 cap Naproxen 250 mg PO TID 7 Days #15 tablet oxyCODONE [Roxicodone] 5 mg PO Q4H PRN #20 tablet PRN Reason: Pain Comments: The redness tenderness and pain in the area may be inflammatory from conditions such as inflammatory bursitis or potentially even gout. However concern would be for an infectious cause and so would want to add antibiotics as well. There was not enough fluid accumulated in order to be able to withdraw any so I do not have a confirmatory test per se. We will presume infectious as well as inflammatory and treat with antibiotics of cephalexin and Bactrim. Treat the inflammatory component with naproxen. To that add Tylenol every 4-6 hours if needed for pain or oxycodone if needed for worse pain. Recheck if not improving well over the next 2 to 3 days and return sooner if worsening or general symptoms such as fever aches vomiting etc. I transmitted prescriptions to your preferred [facility] pharmacy. I am prescribing a short course of narcotic pain medication for you. These are potentially dangerous and addictive medications that should be used carefully. These medications may constipate you. Take an [id number] stool softener such as docusate twice daily with plenty of water while taking these medications. If you go 24 hours without a bowel movement, take [id number] MiraLAX, per package instructions. Do not drink or drive while taking these medications. If you received narcotic or sedating medications while in the emergency department do not drive for 24 hours. Store this medication in a safe, secure place and out of reach of children. It is a violation of federal law to give or sell this medication to another person or to use in a manner other than prescribed. The ED will not refill narcotic prescriptions, including prescriptions lost or stolen. You can dispose of unwanted medications at the [facility]'s office or at several pharmacies such as Personally. Discharge Date/Time: 11/24/21 12:57
[2021-11-24 11:52] LABS: BASOPHILS % (AUTO) 0.4 %; EOSINOPHILS % (AUTO) 0.4 %; HCT - HEMATOCRIT 42.1 % (42.0-52.0); HGB - HEMOGLOBIN 14.3 g/dL (14.0-18.0); LYMPHOCYTES # (AUTO) 0.7 10^3/uL (1.5-3.5); LYMPHOCYTES % (AUTO) 8.8 %; MEAN CORPUSCULAR VOLUME 88.4 fL (80.0-94.0); MEAN PLATELET VOLUME 11.1 fL (7.4-11.4); MONOCYTES # (AUTO) 0.7 10^3/uL (0.0-1.0); MONOCYTES % (AUTO) 9.3 %; NEUTROPHILS # (AUTO) 6.5 10^3/uL (1.5-6.6); NEUTROPHILS % (AUTO) 80.8 %; PLT - PLATELET COUNT 173 10^3/uL (130-450); RED BLOOD COUNT 4.76 10^6/uL (4.70-6.10); RED CELL DISTRIBUTION WIDTH 12.7 % (12.0-15.0)
[2021-11-24 12:10] LABS: CALCIUM 8.7 mg/dL (8.5-10.3); CREATININE 1.1 mg/dL (0.6-1.2); CRP - C-REACTIVE PROTEIN 4.4 mg/dL (0-1.0); POTASSIUM 3.9 mmol/L (3.5-5.0)
[2021-11-24] MEDS ORDERED: cephALEXin 250 MG CAPSULE PO STA (12:19)
[2021-11-24] MEDS ORDERED: SULFAMETH/TRIMETH DS 800/160 MG TABLET PO STA (12:20)
[2021-11-24 12:58] VITALS: BP 130/70
== END 2021-11-24 12:57 | disposition home or self-care (01) ==
LOC: EDUNIT# → ED 11:16
DX: M70.42 Prepatellar bursitis, left knee (principal); I10 Essential (primary) hypertension; E10.9 Type 1 diabetes mellitus without complications; Z79.4 Long term (current) use of insulin
CPT/HCPCS: 20610; 36415; 80048; 85025; 86140; 96372; 99284; A9270

== ENCOUNTER 2022-01-16 14:46 | Outpatient (CLI) | payer MEDICARE | END 2022-01-16 14:47 | disposition critical access hospital (66) | LOC: EMS 14:46 | DX: R53.1 Weakness (principal); R53.83 Other fatigue; R42 Dizziness and giddiness; E10.65 Type 1 diabetes mellitus with hyperglycemia | CPT/HCPCS: A0425; A0427 ==

== ENCOUNTER 2022-01-16 15:31 | Emergency (ER) | payer MEDICARE ==
[2022-01-16] MEDS ORDERED: KETOROLAC 15 MG/ML VIAL IVP STA (15:33)
[2022-01-16] MEDS ORDERED: SODIUM CHLORIDE 0.9% 1,000 ML IV STA (15:33)
--- NOTE | 2022-01-16 15:36 | ED Physician Documentation ---
History of Present Illness - Stated complaint Stated Complaint: SYNCOPE - History obtained from History obtained from: Patient, Family (), EMS - Additonal information Additional information: 56yo male with type I DM, uses insulin pump/dexcom. Sick x 5 days with nasal congestion, aches, tracey neck pain, cough, non productive, no fever. Yesterday was staning in kitchen talking with . [place] lightheaded and went down to knees and had minutes of syncope without injury. Still feeling orthostatic today with lightheaded with position changes. Came from clinic, went for URI but sent here d/t syncope. No chest pain. Tested neg for flu/covid at clinic today. Review of Systems Constitutional: reports: Fatigue. denies: Fever, Chills Nose: reports: Rhinorrhea / runny nose, Congestion Throat: reports: Sore throat Respiratory: reports: Cough GI: denies: Abdominal Pain, Nausea, Diarrhea, Hematemesis, Bloody / black stool PD PAST MEDICAL HISTORY - Past Medical History Cardiovascular: Hypertension, High cholesterol, Arrhythmia, Other Respiratory: Pneumonia Neuro: Dementia, CVA, Other Endocrine/Autoimmune: Type 1 diabetes, HyPOthyroidism GI: GERD, Ulcers, Colon polyps : Other HEENT: None Psych: None Musculoskeletal: Chronic back pain Derm: None - Past Surgical History Past Surgical History: Yes General: Colonoscopy Ortho: Carpal Tunnel surgery HEENT: Other - Present Medications Home Medications: Ambulatory Orders Medication Instructions Recorded Confirmed Atomoxetine HCl [Strattera] 25 mg PO DAILY 05/30/21 09/11/21 Atorvastatin Calcium [Lipitor] 80 mg PO QPM 05/30/21 09/11/21 Donepezil HCl [Aricept] 10 mg PO DAILY 05/30/21 09/11/21 Insulin Glargine [Lantus Solostar] 40 unit SUBQ HS #3 each 05/30/21 09/11/21 Insulin Lispro [Humalog] 0 - 20 units SQ TIDWM 05/30/21 09/11/21 Mirtazapine 45 mg PO QPM 05/30/21 09/11/21 Pregabalin [Lyrica] 50 mg PO BID 05/30/21 09/11/21 EPINEPHrine [Epinephrine] 0.3 mg IJ ONCE PRN #1 dis.syr 10/02/21 Naproxen 250 mg PO TID 7 Days #15 tablet 11/24/21 Sulfamethox/Trimeth 800/160 1 each PO BID #10 tablet 11/24/21 [Bactrim Ds 800/160] cephALEXin [Keflex] 500 mg PO QID 5 Days #20 cap 11/24/21 oxyCODONE [Roxicodone] 5 mg PO Q4H PRN #20 tablet 11/24/21 Amox/Clav 875/125 [Augmentin] 1 each PO Q12H #20 tablet 01/16/22 Guaifenesin/Pseudoephedrne HCl 1 each PO BID PRN #20 tab 01/16/22 [Mucinex D ER 600-60 mg Tablet] guaiFENesin/CODEINE [Robitussin AC] 5 - 10 ml PO Q6H PRN #120 ml 01/16/22 - Allergies Allergies/Adverse Reactions: Allergies Allergy/AdvReac Type Severity Reaction Status Date / Time omeprazole Allergy Intermediate Nausea Verified 01/16/22 15:38 insulin aspart Allergy Unknown Verified 01/16/22 15:38 [From Novolog U-100 Insulin aspart] insulin aspart protamine Allergy Unknown Verified 01/16/22 15:38 human [From Novolog Mix 70-30 U-100 Insuln] codeine AdvReac Severe Dizziness Verified 01/16/22 15:38 doxycycline AdvReac Intermediate Dizziness Verified 01/16/22 15:38 - Social History Does the pt smoke?: No Smoking Status: Never smoker Does the pt drink ETOH?: No Does the pt have substance abuse?: Yes - Immunizations Immunizations are current?: Yes - POLST Patient has POLST: No POLST Status: Full Code PD ED PE NORMAL - Vitals Vital signs reviewed: Yes - General General: Alert and oriented X 3, No acute distress - HEENT HEENT: PERRL, EOMI - Neck Neck: Supple, no meningeal sign, No bony TTP - Cardiac Cardiac: RRR, No murmur - Respiratory Respiratory: No respiratory distress, Clear bilaterally - Abdomen Abdomen: Non tender - Derm Derm: No rash - Extremities Extremities: No edema, No calf tenderness / cord - Neuro Neuro: Alert and oriented X 3, Normal speech Eye Opening: Spontaneous Motor: Obeys Commands Verbal: Oriented GCS Score: 15 Results - Vitals Vitals: Vital Signs - 24 hr 01/16/22 01/16/22 15:35 15:37 Temperature 37.3 C 37.3 C Heart Rate 70 70 Respiratory 16 16 Rate Blood Pressure 147/85 H 147/85 H O2 Saturation 100 100 Oxygen O2 Source [] Room air O2 Source Room air - EKG (time done) 1550 Rate: Rate (enter#) (68) Rhythm: NSR [place]: Normal Intervals: Normal IN QRS: Normal Ischemia: Normal ST segments - Labs Labs: Laboratory Tests 01/16/22 01/16/22 01/16/22 15:44 15:44 15:44 WBC 5.1 RBC 4.62 L Hgb 13.7 L Hct 40.9 L MCV 88.5 MCH 29.7 MCHC 33.5 RDW 12.2 Plt Count 169 MPV 11.6 H Neut # (Auto) 3.5 Lymph # (Auto) 0.9 L [place] # (Auto) 0.6 Eos # (Auto) 0.0 Baso # (Auto) 0.0 Absolute Nucleated RBC 0.00 Nucleated RBC % 0.0 Sodium 131 L Potassium 4.3 Chloride 100 L Carbon Dioxide 26 Anion Gap 5.0 L BUN 17 Creatinine 1.0 Estimated GFR (MDRD) 77 L Glucose 278 H Lactic Acid 0.8 Calcium 8.6 Magnesium 1.9 Total Bilirubin 0.5 AST 17 ALT 17 Alkaline Phosphatase 59 Total Protein 6.4 L Albumin 3.5 Globulin 2.9 Albumin/Globulin Ratio 1.2 PD MEDICAL DECISION MAKING - ED course ED course: 56yo male with DMI with URI with prominent sinus sx and neck pain. No fever.' Syncope yesterday. EKG nl. Labs unremarkable except blood sugar ~280. Meningitis considered but with URI sx, no neck stiffness on exam here, nl WBC and no fever - v unlikely. Departure - Departure Disposition: Home, Self Care Clinical Impression: Type 1 diabetes mellitus Qualifiers: Diabetes mellitus complication status: with hyperglycemia Qualified Code(s): E10.65 - Type 1 diabetes mellitus with hyperglycemia Sinusitis Qualifiers: Sinusitis location: maxillary Chronicity: acute Recurrence: non-recurrent Qualified Code(s): J01.00 - Acute maxillary sinusitis, unspecified Syncope Qualifiers: Syncope type: unspecified Qualified Code(s): R55 - Syncope and collapse Condition: Good Record reviewed to determine appropriate education?: Yes Instructions: ED Sinusitis Abx Tx, ED Fainting Unkn Cause Prescriptions: Amox/Clav 875/125 [Augmentin] 1 each PO Q12H #20 tablet Guaifenesin/Pseudoephedrne HCl [Mucinex D ER 600-60 mg Tablet] 1 each PO BID PRN #20 tab PRN Reason: congestion guaiFENesin/CODEINE [Robitussin AC] 5 - 10 ml PO Q6H PRN #120 ml PRN Reason: Cough Comments: I sent your prescripotion electronically to [facility] in [place]. Followup with your PCP next available. Return if worse.
[2022-01-16 15:50] LABS: BASOPHILS % (AUTO) 0.6 %; EOSINOPHILS % (AUTO) 0.8 %; HCT - HEMATOCRIT 40.9 % (42.0-52.0); HGB - HEMOGLOBIN 13.7 g/dL (14.0-18.0); LYMPHOCYTES # (AUTO) 0.9 10^3/uL (1.5-3.5); LYMPHOCYTES % (AUTO) 18.1 %; MEAN CORPUSCULAR HEMOGLOBIN 29.7 pg (27.0-31.0); MEAN CORPUSCULAR HGB CONC 33.5 g/dL (32.0-36.0); MEAN CORPUSCULAR VOLUME 88.5 fL (80.0-94.0); MEAN PLATELET VOLUME 11.6 fL (7.4-11.4); MONOCYTES # (AUTO) 0.6 10^3/uL (0.0-1.0); MONOCYTES % (AUTO) 11.8 %; NEUTROPHILS # (AUTO) 3.5 10^3/uL (1.5-6.6); NEUTROPHILS % (AUTO) 68.5 %; PLT - PLATELET COUNT 169 10^3/uL (130-450); RED BLOOD COUNT 4.62 10^6/uL (4.70-6.10); RED CELL DISTRIBUTION WIDTH 12.2 % (12.0-15.0); WHITE BLOOD COUNT 5.1 x10^3/uL (4.8-10.8)
[2022-01-16 16:05] LABS: ALBUMIN 3.5 g/dL (3.2-5.5); ALBUMIN/GLOBULIN RATIO 1.2 (1.0-2.2); BILIRUBIN,TOTAL 0.5 mg/dL (0.2-1.0); CALCIUM 8.6 mg/dL (8.5-10.3); MAGNESIUM 1.9 mg/dL (1.7-2.8); POTASSIUM 4.3 mmol/L (3.5-5.0); TOTAL PROTEIN 6.4 g/dL (6.7-8.2)
[2022-01-16] MEDS ORDERED: LACTATED RINGERS 1,000 ML IV ONE (16:21)
[2022-01-16 17:53] VITALS: BP 140/80
--- NOTE | 2022-01-19 14:40 | ED Physician Documentation ---
ED Addendum - Addendum Addendum: 01/19/22 14:39 Patient called in and notes allergy to codeine and states that he cannot take amoxicillin due to it "messing with my insulin sensitivity." As such I sent prescriptions for Keflex and Tessalon to [facility].
== END 2022-01-16 17:54 | disposition home or self-care (01) ==
LOC: EDUNIT# → ED 15:31
DX: J01.00 Acute maxillary sinusitis, unspecified (principal); R55 Syncope and collapse; I10 Essential (primary) hypertension; E10.9 Type 1 diabetes mellitus without complications; Z79.4 Long term (current) use of insulin
CPT/HCPCS: 36415; 80053; 83605; 83735; 85025; 93005; 96361; 96374; 99284; J7120

== ENCOUNTER 2022-01-26 09:03 | Outpatient (CLI) | payer MEDICARE | END 2022-01-26 23:59 | disposition critical access hospital (66) | LOC: EMS 09:03 | DX: R06.00 Dyspnea, unspecified (principal); R00.2 Palpitations; E10.65 Type 1 diabetes mellitus with hyperglycemia; R07.9 Chest pain, unspecified | CPT/HCPCS: A0425; A0429 ==

== ENCOUNTER 2022-01-26 09:22 | Observation (INO) | payer MEDICARE ==
[2022-01-26 09:48] LABS: BASOPHILS # (AUTO) 0.1 10^3/uL (0.0-0.1); BASOPHILS % (AUTO) 0.6 %; EOSINOPHILS % (AUTO) 0.1 %; HCT - HEMATOCRIT 43.4 % (42.0-52.0); HGB - HEMOGLOBIN 14.5 g/dL (14.0-18.0); LYMPHOCYTES # (AUTO) 0.6 10^3/uL (1.5-3.5); LYMPHOCYTES % (AUTO) 6.3 %; MEAN CORPUSCULAR HEMOGLOBIN 29.3 pg (27.0-31.0); MEAN CORPUSCULAR HGB CONC 33.4 g/dL (32.0-36.0); MEAN CORPUSCULAR VOLUME 87.7 fL (80.0-94.0); MEAN PLATELET VOLUME 11.6 fL (7.4-11.4); MONOCYTES # (AUTO) 0.4 10^3/uL (0.0-1.0); MONOCYTES % (AUTO) 4.7 %; NEUTROPHILS # (AUTO) 7.8 10^3/uL (1.5-6.6); NEUTROPHILS % (AUTO) 87.7 %; PLT - PLATELET COUNT 344 10^3/uL (130-450); RED BLOOD COUNT 4.95 10^6/uL (4.70-6.10); RED CELL DISTRIBUTION WIDTH 11.7 % (12.0-15.0); WHITE BLOOD COUNT 8.9 x10^3/uL (4.8-10.8)
[2022-01-26 09:54] LABS: KETONES, SERUM (ACETEST) SMALL (NEGATIVE)
[2022-01-26 09:55] LABS: VBG BASE EXCESS -6.4 mmol/L (-2 - +2); VBG OXYGEN SATURATION 45.3 % (60-80); VBG PCO2 37.9 mmHg (41-51); VBG PH 7.319 (7.31-7.41); VBG PO2 25.1 mmHg (25-47); VBG TOTAL CO2 20.2 mmol/L (24-29)
[2022-01-26] MEDS ORDERED: SODIUM CHLORIDE 0.9% 1,000 ML IV STA (09:55)
[2022-01-26] MEDS ORDERED: ALBUTEROL NEB 2.5 MG/3 ML INH STA (09:56)
--- NOTE | 2022-01-26 09:59 | ED Physician Documentation ---
History of Present Illness - Stated complaint Stated Complaint: CHEST PX/DM - Chief complaint Chief Complaint: Abd Pain - History obtained from History obtained from: Patient, EMS - Additonal information Additional information: This is a 56-year-old gentleman with brittle type 1 diabetes, history of stroke, hyperlipidemia, hypertension, GERD, hypothyroidism. He noted his blood sugar starting go up last night, he is not sure why. His pump and Dexcom are working and he did not get outside of his usual routine. He went walking with his around 6 AM this morning and started to feel very short of breath and fatigued as well as nauseous. Nausea is now gone. He tested himself for ketones and had moderate urinary ketones. Of note he had a URI recently and was treated with antibiotics. He was unable to fill the antibiotics because "my insurance restarted my deductible in January and I could not afford them." Review of Systems Ten Systems: 10 systems reviewed and negative Constitutional: reports: Fatigue. denies: Fever, Chills Nose: denies: Rhinorrhea / runny nose Throat: denies: Sore throat Respiratory: reports: Dyspnea, Cough PD PAST MEDICAL HISTORY - Past Medical History Cardiovascular: Hypertension, High cholesterol, Arrhythmia, Other Respiratory: Pneumonia Neuro: Dementia, CVA, Other Endocrine/Autoimmune: Type 1 diabetes, HyPOthyroidism GI: GERD, Ulcers, Colon polyps : Other HEENT: None Psych: None Musculoskeletal: Chronic back pain Derm: None - Past Surgical History Past Surgical History: Yes General: Colonoscopy Ortho: Carpal Tunnel surgery HEENT: Other - Present Medications Home Medications: Ambulatory Orders Medication Instructions Recorded Confirmed Atomoxetine HCl [Strattera] 25 mg PO DAILY 05/30/21 09/11/21 Atorvastatin Calcium [Lipitor] 80 mg PO QPM 05/30/21 09/11/21 Donepezil HCl [Aricept] 10 mg PO DAILY 05/30/21 09/11/21 Insulin Glargine [Lantus Solostar] 40 unit SUBQ HS #3 each 05/30/21 09/11/21 Insulin Lispro [Humalog] 0 - 20 units SQ TIDWM 05/30/21 09/11/21 Mirtazapine 45 mg PO QPM 05/30/21 09/11/21 Pregabalin [Lyrica] 50 mg PO BID 05/30/21 09/11/21 EPINEPHrine [Epinephrine] 0.3 mg IJ ONCE PRN #1 dis.syr 10/02/21 Naproxen 250 mg PO TID 7 Days #15 tablet 11/24/21 Sulfamethox/Trimeth 800/160 1 each PO BID #10 tablet 11/24/21 [Bactrim Ds 800/160] cephALEXin [Keflex] 500 mg PO QID 5 Days #20 cap 11/24/21 oxyCODONE [Roxicodone] 5 mg PO Q4H PRN #20 tablet 11/24/21 Amox/Clav 875/125 [Augmentin] 1 each PO Q12H #20 tablet 01/16/22 Guaifenesin/Pseudoephedrne HCl 1 each PO BID PRN #20 tab 01/16/22 [Mucinex D ER 600-60 mg Tablet] guaiFENesin/CODEINE [Robitussin AC] 5 - 10 ml PO Q6H PRN #120 ml 01/16/22 Benzonatate [Tessalon] 200 mg PO TID #20 cap 01/19/22 cephALEXin [Keflex] 500 mg PO Q6H #28 cap 01/19/22 - Allergies Allergies/Adverse Reactions: Allergies Allergy/AdvReac Type Severity Reaction Status Date / Time omeprazole Allergy Intermediate Nausea Verified 01/16/22 15:38 insulin aspart Allergy Unknown Verified 01/16/22 15:38 [From Novolog U-100 Insulin aspart] insulin aspart protamine Allergy Unknown Verified 01/16/22 15:38 human [From Novolog Mix 70-30 U-100 Insuln] codeine AdvReac Severe Dizziness Verified 01/16/22 15:38 doxycycline AdvReac Intermediate Dizziness Verified 01/16/22 15:38 - Social History Does the pt smoke?: No Smoking Status: Never smoker Does the pt drink ETOH?: No Does the pt have substance abuse?: Yes - Immunizations Immunizations are current?: Yes - POLST Patient has POLST: No POLST Status: Full Code PD ED PE NORMAL - Vitals Vital signs reviewed: Yes - General General: Alert and oriented X 3, No acute distress, Other (Does appear to have 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 small respirations) - HEENT HEENT: PERRL, EOMI - Neck Neck: Supple, no meningeal sign, No bony TTP - Cardiac Cardiac: RRR, No murmur - Respiratory Respiratory: Other (Rhonchorous and wheezy throughout without focal findings, mildly tachypneic.) - Abdomen Abdomen: Non tender - Back Back: No CVA TTP, No spinal TTP - Derm Derm: Normal color, Warm and dry - Extremities Extremities: No edema, No calf tenderness / cord - Neuro Neuro: Alert and oriented X 3, Normal speech Results - Vitals Vitals: Vital Signs - 24 hr 01/26/22 01/26/22 01/26/22 09:23 10:18 10:20 Temperature 37.2 C 36.8 C Heart Rate 80 80 78 Respiratory 16 28 H 29 H Rate Blood Pressure 123/69 129/76 O2 Saturation 100 100 Oxygen O2 Source [] Room air O2 Source Room air - EKG (time done) 0930 Rate: Rate (enter#) (78) Rhythm: NSR [place]: Normal Intervals: Normal [place] QRS: Normal Ischemia: Other (A question of peaked T waves without ST elevation or depr ession) Computer interpretation: Agree with computer - Labs Labs: Laboratory Tests 01/26/22 01/26/22 01/26/22 09:40 09:40 09:40 WBC 8.9 RBC 4.95 Hgb 14.5 Hct 43.4 MCV 87.7 MCH 29.3 MCHC 33.4 RDW 11.7 L Plt Count 344 MPV 11.6 H Neut # (Auto) 7.8 H Lymph # (Auto) 0.6 L [place] # (Auto) 0.4 Eos # (Auto) 0.0 Baso # (Auto) 0.1 Absolute Nucleated RBC 0.00 Nucleated RBC % 0.0 VBG pH 7.319 VBG pCO2 37.9 L VBG pO2 25.1 VBG HCO3 19.0 L VBG Total CO2 20.2 L VBG O2 Saturation 45.3 L VBG Base Excess -6.4 L Sodium 127 L Potassium 5.9 H Chloride 91 L Carbon Dioxide 19 L Anion Gap 17.0 H BUN 36 H Creatinine 1.5 H Estimated GFR (MDRD) 48 L Glucose 681 H* Calcium 9.5 Magnesium 2.3 Total Bilirubin 1.6 H AST 17 ALT 19 Alkaline Phosphatase 81 Total Protein 7.7 Albumin 3.8 Globulin 3.9 Albumin/Globulin Ratio 1.0 Serum Ketones SMALL H - Rads (name of study) Single view chest x-ray is unremarkable Radiology: EMP read contemporaneously PD MEDICAL DECISION MAKING - ED course ED course: 56-year-old gentleman presents with diabetic ketoacidosis. His venous pH is normal, he has an anion gap with ketones and very elevated blood sugar. He does look like he is having Kussmaul respirations as well. He also was found to have SAMUEL with mild hyperkalemia which should be well treated between the IV fluids, insulin, and he is also getting albuterol for his wheezing. Given the above I spoke with Dr. Sales for admission at 10:36 AM. - Critical Care Time(min): 40 Time Includes: Direct patient care, Review records, Reassess patient, Document care, Coordinate care, Medical consult Data interpretation: Labs, Pulse ox Procedures included in critical care time: Peripheral IV Procedures excluded from critical care time: EKG Departure - Departure Disposition: 66 [facility] DC/Xfer Clinical Impression: Diabetic ketoacidosis, SAMUEL (acute kidney injury), Hyperkalemia Condition: Serious
[2022-01-26 10:00] LABS: ALBUMIN 3.8 g/dL (3.2-5.5); ALKALINE PHOSPHATASE 81 IU/L (42-121); ALT ALANINE AMINOTRANSFERASE 19 IU/L (10-60); AST ASPARTATE AMINOTRANSFERASE 17 IU/L (10-42); BILIRUBIN,TOTAL 1.6 mg/dL (0.2-1.0); BUN - BLOOD UREA NITROGEN 36 mg/dL (6-20); CALCIUM 9.5 mg/dL (8.5-10.3); CARBON DIOXIDE - CO2 19 mmol/L (21-32); CHLORIDE 91 mmol/L (101-111); CREATININE 1.5 mg/dL (0.6-1.2); GFR - MDRD 48 (>89); MAGNESIUM 2.3 mg/dL (1.7-2.8); POTASSIUM 5.9 mmol/L (3.5-5.0); SODIUM 127 mmol/L (135-145); TOTAL PROTEIN 7.7 g/dL (6.7-8.2)
[2022-01-26 10:02] LABS: GLUCOSE 681 mg/dL (70-100)
[2022-01-26] MEDS ORDERED: INSULIN REGULAR HUMAN 100 UNIT/1 ML 10 ML MDV IVP STA (10:04)
--- NOTE | 2022-01-26 10:11 | XRAY Report ---
PROCEDURE: Chest 1 View X-Ray INDICATIONS: chest pain TECHNIQUE: One view of the chest was acquired. COMPARISON: 05/29/2021, 02/03/2021, 11/04/2020 FINDINGS: Surgical changes and devices: None. Lungs and pleura: No pleural effusions or pneumothorax. Lungs are clear. Mediastinum: Mediastinal contours appear normal. Heart size is normal. Bones and chest wall: No suspicious bony lesions. Age-appropriate degenerative changes are seen. Overlying soft tissues appear unremarkable. IMPRESSION: Unremarkable portable chest for age Reviewed by: Irineo Long MD on 01/26/2022 9:09 AM [facility] Approved by: Irineo Long MD on 01/26/2022 9:09 AM [facility] Station ID: [id number]
[2022-01-26] MEDS ORDERED: ACETAMINOPHEN 325 MG TABLET PO PRN (10:35)
[2022-01-26] MEDS ORDERED: ONDANSETRON ODT 4 MG TABLET TL PRN (10:35)
[2022-01-26] MEDS ORDERED: SODIUM CHLORIDE FLUSH 0.9% 10 ML SYRINGE IVP PRN (10:35)
[2022-01-26] MEDS ORDERED: ONDANSETRON 4 MG/2 ML VIAL IVP PRN (10:35)
[2022-01-26] MEDS ORDERED: MORPHINE 2 MG/ML CARPUJECT IVP PRN (10:35)
[2022-01-26] MEDS ORDERED: INSULIN REGULAR HUMAN 100 UNIT in SODIUM CHLORIDE 0.9% 100ML 99 ML IV SCH (11:00)
--- NOTE | 2022-01-26 11:28 | HISTORY & PHYSICAL EXAMINATION ---
Chief Complaint - Chief Complaint Chief Complaint: fatigue, shortness of breath History of Present Illness - Admitted From Admitted From:: home - History Obtained From Records Reviewed: [facility] History obtained from: patient and Dr. Cheung Exam Limitations: none - History of Present Illness HPI Comment/Other: Patient has been admitted once to our service back in May of this year. At that time he was not on an insulin pump and was just getting approved. He presented a cyclical vomiting, and had run out of his insulin for 2 days. He does use cannibus. He's been seen in the ER for high glucose and questionable functioning pump 09/11/21, a bee sting 09/2021, a bug bite 11/2021 (glucose 108), syncope 01/16/22 (glucose 278) w/diagnosis of sinusitis. He noticed that his glucose was climbing yesterday but no reason. PUmp is working and CGM is working. No fever, no chills, no sore throat, no cough, no abd pain and no change in bowel habits. and he is eating on time. Today he was taking a walk with his when overcome by fatigue, shortness of breath. Came to the ED where he was with normal vitals. 36.8, 80 pulse, 123/69, 16, 100 room air. Occ his RR is 28. Sodium is 127, potassium 5.9, AG is 17, creatinine 1.5, glucose 681, venous gas with pH 7.31, pC02 37, Base excess 6.4. History - Past Medical History Cardiovascular: reports: Hypertension, High cholesterol, Arrhythmia, Other Respiratory: reports: Pneumonia Neuro: reports: Dementia, CVA, Other Endocrine/Autoimmune: reports: Type 1 diabetes, HyPOthyroidism GI: reports: GERD, Ulcers, Colon polyps : reports: Other HEENT: reports: None Psych: reports: None Musculoskeletal: reports: Chronic back pain Derm: reports: None MRSA Hx?: No - Past Surgical History General: reports: Colonoscopy Ortho: reports: Carpal Tunnel surgery HEENT: reports: Other - Family & Social History Family History: Other family: CAD, CVA/TIA Family History Comment/Other: States his father had a myocardial infarction in his early 30s and he also had a stroke. His maternal side has a strong history of cardiac disease and strokes as well. Living arrangement: At home Living Situation: With spouse/s.o. Social History Notes: He lives at home with his spouse. He no longer smokes but did smoke a pack and half a day for about 13 years but quit in his 30s. He rarely drinks alcohol. 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 - Substance History Use: Uses substance without health or social issues: Cannabis - POLST Patient has POLST: No POLST Status: Full Code Meds/Allgy - Home Medications Home Medications: Ambulatory Orders Medication Instructions Recorded Confirmed Atorvastatin Calcium [Lipitor] 80 mg PO QPM 05/30/21 01/26/22 Donepezil HCl [Aricept] 10 mg PO DAILY 05/30/21 01/26/22 Insulin Lispro [Humalog] 70 units SQ DAILY 05/30/21 01/26/22 Mirtazapine 45 mg PO QPM 05/30/21 01/26/22 EPINEPHrine [Epinephrine] 0.3 mg IJ ONCE PRN #1 dis.syr 10/02/21 01/26/22 DULoxetine [Cymbalta] 30 mg PO DAILY 01/26/22 01/26/22 Tamsulosin [Flomax] 0.4 mg PO DAILY 01/26/22 01/26/22 - Allergies Allergies/Adverse Reactions: Allergies Allergy/AdvReac Type Severity Reaction Status Date / Time omeprazole Allergy Intermediate Nausea Verified 01/16/22 15:38 insulin aspart Allergy Unknown Verified 01/16/22 15:38 [From Novolog U-100 Insulin aspart] insulin aspart protamine Allergy Unknown Verified 01/16/22 15:38 human [From Novolog Mix 70-30 U-100 Insuln] codeine AdvReac Severe Dizziness Verified 01/16/22 15:38 doxycycline AdvReac Intermediate Dizziness Verified 01/16/22 15:38 Review of Systems - Constitutional Constitutional: reports: Malaise, Weakness. denies: Fatigue, Fever, Chills, Poor appetite - Eyes Eyes: reports: Blurred vision. denies: Pain, Irritation, Amaurosis - Ears, Nose & Throat Ears, Nose & Throat: denies: Ear pain, Sore throat, Hoarseness - Cardiovascular Cariovascular: denies: Irregular heart rate, Palpitations, Chest pain, Edema, Exertional dyspnea, Decr. exercise tolerance - Respiratory Respiratory: denies: Cough, Sputum production, Wheezing, Snoring - Gastrointestinal Gastrointestinal: denies: Abdominal pain, Abdominal distention, Constipation, Diarrhea - Genitourinary Genitourinary: denies: Dysuria, Frequency, Urgency - Musculoskeletal Musculoskeletal: reports: Back pain - Integumentary Integumentary: denies: Rash - Neurological Neurological: reports: Numbness (feet), Memory problems - Psychiatric Psychiatric: reports: Depression, Anxiety. denies: Suicidal - Endocrine Endocrine: denies: Polyuria, Polydypsia, Polyphagia - Hematologic/Lymphatic Hematologic/Lymphatic: denies: Anemia, Bruising Prior Level of Functionality: independent with ADLs, no DME, drives, pays bills Exam - Vital Signs Reviewed Vital Signs: Yes Vital Signs: Vital Signs x48h Temp Pulse Resp BP Pulse Ox 01/26/22 11:00 80 19 141/63 H 94 01/26/22 10:20 36.8 C 78 29 H 129/76 100 01/26/22 10:18 80 28 H 01/26/22 09:23 37.2 C 80 16 123/69 100 - Physical Exam General Appearance: positive: Alert, Other (Muted affect, quiet. Complaining because I am not giving him food.) Eyes Bilateral: positive: PERRL, EOMI ENT: positive: No signs of dehydration Neck: positive: No JVD. negative: Stiff neck Respiratory: positive: No respiratory distress. negative: Wheezes, Rales, Rhonchi Cardiovascular: positive: Regular rate & rhythm Abdomen: positive: Non-tender, No organomegaly, Nml bowel sounds, No distention Skin: positive: Warm, Dry Extremities: positive: Full ROM, No pedal edema Neurologic/Psychiatric: positive: Oriented x3, CN's nml (2-12), Motor nml Conclusion/Plan - Problem List (1) Diabetic ketoacidosis Conclusion/Plan: unclear about why . He states that he is compliant with his food, and the use of the pump. He does not have any signs or symptoms of infection. No signs or symptoms of MA. Not on any medications that would destabilize him. Plan: Hopefully he can be turned around quickly and he will be placed in observation status Placed in ICU for insulin drip and follow DKA protocol with aggressive IV fluids, electrolyte supplementation His pump will be removed. He is not happy about being n.p.o. except for ice chips. I said once his sugar stabilized I can start feeding him. His pump will also be return to him. Qualifiers: Diabetes mellitus type: type 1 Diabetes mellitus complication detail: wit hobrendan coma Qualified Code(s): E10.10 - Type 1 diabetes mellitus with ketoa cidosis without coma (2) Hyperkalemia Conclusion/Plan: I expect that his potassium will go down with the insulin drip. With his first few liters of fluids I am not to be giving him potassium. (3) Depression Conclusion/Plan: He is on mirtazapine and Cymbalta. Those medications will be resumed. Qualifiers: Depression Type: unspecified Qualified Code(s): F32.A - Depression, unspecified (4) Chronic back pain Conclusion/Plan: He is not on any long-term medications for pain. Here he will be on as needed Tylenol for mild pain, oxycodone for moderate pain. Morphine will be for severe pain. Qualifiers: Back pain location: low back pain - Lab Results Lab results reviewed: Yes Fish Bones: 01/26/22 09:40 01/26/22 16:40 - Diagnostic Imaging Results Diagnostic Imaging Results: positive: Final report reviewed Core Measures - Anticipated LOS I expect patient to be DC'd or transferred within 96 hours.: Yes - DVT/VTE - Prophylaxis VTE/DVT Device ordered at admit?: Yes
[2022-01-26 11:33] LABS: CORONAVIRUS 229E-RESP PCR NOT DETECTED; CORONAVIRUS HKU1-RESP PCR NOT DETECTED; CORONAVIRUS NL63-RESP PCR NOT DETECTED; CORONAVIRUS OC43-RESP PCR NOT DETECTED; HUMAN METAPNEUMOVIRUS NOT DETECTED; INFLUENZA A- RESP PCR PANEL NOT DETECTED; INFLUENZA B - RESP PCR PANEL NOT DETECTED; PARAINFLUENZA VIRUS 1 NOT DETECTED; PARAINFLUENZA VIRUS 2 NOT DETECTED; RHINOVIRUS/ENTEROVIRUS NOT DETECTED; SARS-CoV-2 -RESP PCR PANEL NOT DETECTED
[2022-01-26 11:34] LABS: B. PARAPERTUSSIS- RESP PCR PAN NOT DETECTED; B. PERTUSSIS- RESP PCR PANEL NOT DETECTED; C. PNEUMONIAE- RESP PCR PANEL NOT DETECTED; M. PNEUMONIAE- RESP PCR PANEL NOT DETECTED; PARAINFLUENZA VIRUS 3 DETECTED; PARAINFLUENZA VIRUS 4 NOT DETECTED; RSV- RESP PCR PANEL NOT DETECTED
[2022-01-26] MEDS: SODIUM CHLORIDE 0.9% 1,000 ML IV SCH ×2 (11:36→15:57)
[2022-01-26] MEDS: INSULIN REGULAR HUMAN 100 UNIT in SODIUM CHLORIDE 0.9% 100ML 99 ML IV SCH ×2 (12:25→13:25)
[2022-01-26 12:37] LABS: CALCIUM 8.8 mg/dL (8.5-10.3); CREATININE 1.5 mg/dL (0.6-1.2); MAGNESIUM 2.2 mg/dL (1.7-2.8); POTASSIUM 4.1 mmol/L (3.5-5.0)
--- NOTE | 2022-01-26 15:14 | PHARMACY PROGRESS NOTE ---
- Best Possible Medication History Admit Date and Time: 01/26/22 1035 Processed by: Pharmacy Medication History completed: Yes Patient Interview: Completed Secondary Source(s): Pharmacy records, Insurance records As the person ultimately responsible for medication therapy, providers are able to order a medication from an existing home medication list in [facility] via the "Reconcile Routine" prior to Confirmation of that medication by direct support professional home health. Such practice is discouraged except when the physician, in their clinical judgment, deems that a medical need exists for a medication without regard to previous use.
[2022-01-26 15:28] LABS: BILIRUBIN,URINE NEGATIVE (NEGATIVE); GLUCOSE, URINE (UA) 500 mg/dL (NEGATIVE); KETONES,URINE (UA) >=80 mg/dL (NEGATIVE); LEUKOCYTE ESTERASE, URINE NEGATIVE (NEGATIVE); NITRITE,URINE NEGATIVE (NEGATIVE); OCCULT BLOOD,URINE NEGATIVE (NEGATIVE); PH,URINE 5.5 PH (5.0-7.5); PROTEIN,URINE NEGATIVE (NEGATIVE); UROBILINOGEN,URINE 0.2 (NORMAL) E.U./dL (NORMAL)
[2022-01-26 15:32] LABS: CLARITY,URINE CLEAR (CLEAR)
[2022-01-26 15:33] LABS: VBG BASE EXCESS -2.9 mmol/L (-2 - +2); VBG HCO3 22.6 mmol/L (23-28); VBG PCO2 42.2 mmHg (41-51); VBG PH 7.347 (7.31-7.41); VBG PO2 45.7 mmHg (25-47); VBG TOTAL CO2 23.9 mmol/L (24-29)
[2022-01-26 15:41] LABS: CALCIUM 8.6 mg/dL (8.5-10.3); CREATININE 1.3 mg/dL (0.6-1.2); POTASSIUM 4.1 mmol/L (3.5-5.0)
[2022-01-26 16:56] LABS: CALCIUM 8.6 mg/dL (8.5-10.3); CREATININE 1.2 mg/dL (0.6-1.2); POTASSIUM 3.9 mmol/L (3.5-5.0)
[2022-01-26] MEDS: DEXTROSE 5%-0.9% NACL 1,000 ML IV SCH ×2 (17:05→20:49)
[2022-01-26] MEDS: SODIUM CHLORIDE FLUSH 0.9% 10 ML SYRINGE IVP SCH (17:34)
[2022-01-26 19:18] LABS: CALCIUM 8.3 mg/dL (8.5-10.3); CREATININE 1.1 mg/dL (0.6-1.2); POTASSIUM 3.6 mmol/L (3.5-5.0)
[2022-01-26] MEDS: INSULIN LISPRO 300 UNIT/3 ML PEN SUBQ SCH (20:49)
[2022-01-26] MEDS ORDERED: INSULIN GLARGINE-YFGN 300 UNIT/3 ML PEN SUBQ SCH ×2 (21:00)
[2022-01-26] MEDS ORDERED: MIRTAZAPINE 15 MG TABLET PO SCH (21:00)
[2022-01-26] MEDS ORDERED: POTASSIUM CHLOR 10 MEQ/100 ML 10 MEQ/100 ML BAG IV ONE ×2 (22:00→23:00)
[2022-01-27] MEDS: DEXTROSE 5%-0.9% NACL 1,000 ML IV SCH ×4 (00:49→13:07)
[2022-01-27] MEDS: SODIUM CHLORIDE FLUSH 0.9% 10 ML SYRINGE IVP SCH ×3 (00:49→10:16)
[2022-01-27 01:25] LABS: MAGNESIUM 2.1 mg/dL (1.7-2.8); PHOSPHORUS 2.7 mg/dL (2.5-4.6); POTASSIUM 3.7 mmol/L (3.5-5.0)
[2022-01-27 04:51] LABS: VBG PH 7.348 (7.31-7.41)
[2022-01-27 04:52] LABS: CALCIUM, IONIZED 1.12 mmol/L (1.15-1.33)
[2022-01-27 04:55] LABS: BASOPHILS % (AUTO) 0.5 %; EOSINOPHILS # (AUTO) 0.1 10^3/uL (0.0-0.7); EOSINOPHILS % (AUTO) 0.8 %; HCT - HEMATOCRIT 34.8 % (42.0-52.0); HGB - HEMOGLOBIN 11.7 g/dL (14.0-18.0); LYMPHOCYTES # (AUTO) 1.4 10^3/uL (1.5-3.5); LYMPHOCYTES % (AUTO) 18.6 %; MEAN CORPUSCULAR HEMOGLOBIN 29.6 pg (27.0-31.0); MEAN CORPUSCULAR HGB CONC 33.6 g/dL (32.0-36.0); MEAN CORPUSCULAR VOLUME 88.1 fL (80.0-94.0); MEAN PLATELET VOLUME 10.8 fL (7.4-11.4); MONOCYTES # (AUTO) 0.7 10^3/uL (0.0-1.0); MONOCYTES % (AUTO) 8.9 %; NEUTROPHILS # (AUTO) 5.5 10^3/uL (1.5-6.6); NEUTROPHILS % (AUTO) 70.9 %; PLT - PLATELET COUNT 284 10^3/uL (130-450); RED BLOOD COUNT 3.95 10^6/uL (4.70-6.10); RED CELL DISTRIBUTION WIDTH 12.2 % (12.0-15.0); WHITE BLOOD COUNT 7.7 x10^3/uL (4.8-10.8)
[2022-01-27 05:03] LABS: BUN - BLOOD UREA NITROGEN 22 mg/dL (6-20); CALCIUM 7.9 mg/dL (8.5-10.3); CARBON DIOXIDE - CO2 23 mmol/L (21-32); CHLORIDE 112 mmol/L (101-111); GFR - MDRD 77 (>89); GLUCOSE 140 mg/dL (70-100); MAGNESIUM 2.1 mg/dL (1.7-2.8); PHOSPHORUS 2.6 mg/dL (2.5-4.6); POTASSIUM 3.9 mmol/L (3.5-5.0); SODIUM 139 mmol/L (135-145)
[2022-01-27 05:48] LABS: KETONES, SERUM (ACETEST) SMALL (NEGATIVE)
[2022-01-27] MEDS ORDERED: PANTOPRAZOLE 40 MG TABLET PO SCH (07:00)
[2022-01-27 07:54] LABS: ESTIMATED AVERAGE GLUCOSE 197 mg/dL (70-100); HEMOGLOBIN A1c% 8.5 % (4.27-6.07)
[2022-01-27] MEDS ORDERED: POTASSIUM CHLORIDE 20 MEQ TABLET PO ONE (08:00)
[2022-01-27] MEDS ORDERED: INSULIN LISPRO 300 UNIT/3 ML PEN SUBQ SCH ×4 (08:00→17:00)
[2022-01-27] MEDS: INSULIN LISPRO 300 UNIT/3 ML PEN SUBQ SCH ×2 (08:56→13:07)
[2022-01-27] MEDS ORDERED: DULoxetine 30 MG CAPSULE PO SCH (09:00)
[2022-01-27] MEDS ORDERED: TAMSULOSIN 0.4 MG CAPSULE PO SCH (09:00)
[2022-01-27] MEDS ORDERED: DONEPEZIL 5 MG TABLET PO SCH (09:00)
[2022-01-27] MEDS ORDERED: INSULIN GLARGINE-YFGN 300 UNIT/3 ML PEN SUBQ SCH (09:00)
[2022-01-27] MEDS ORDERED: INSULIN LISPRO 300 UNIT/3 ML PEN SUBQ STA (09:21)
--- NOTE | 2022-01-27 11:42 | Discharge Plan ---
Discharge Plan Problem Reviewed?: Yes Disposition: Home, Self Care Condition: Fair Diet: Diabetic Activity Restrictions: Activity as Tolerated Shower Restrictions: No Driving Restrictions: No Health Concerns: You presented to our emergency room by ambulance because you had sudden shortness of breath and abdominal pain on the way back from walking your to work. You have a new insulin pump since your first insulin pump was not working well and as far as you know your insulin pump is delivering insulin. You had no other changes such as fever, chills, sore throat, urged to urinate, burning to urinate, or change in bowel habits. You have not eaten for 12 hours when you went to go walk your to work and back. In the emergency room we establish that you had diabetic ketoacidosis. Is a type I diabetic you are very familiar with that is. We could not figure out why you are in DKA if your pump is working and you are not ill with pneumonia, UTI, URI. We also verified you were not having a heart attack. There are many reasons why some people go into DKA and none of those reasons were evident to us when you were in the emergency room. We had to remove your insulin pump. You do not know how to turn off the pump so we had to remove the pump and the tubing to start you on an insulin drip here. We were able to bring your glucose down, ketones stop being present in your blood, and something called an anion gap went back to normal. Unfortunately we cannot reinstall your insulin pump without the correct tubing. The morning of discharge your glucose was under 100. You ate breakfast and glucose was 194 and we gave you 5 units of lispro. You are going to get another 5 units of lispro before lunch. You cannot leave until 1:30 PM according to transportation needs. Plan of Treatment: 1. We gave you 12 units of lispro right before lunchtime 2. You are being discharged and we are asking you to immediately go home without any stopping to do errands to put your pump back in again. 3. Please see your primary care provider in follow-up or see your cosmetology educator in follow-up to see if your pump is working. We are not sending you home on any new medications. Care Goals: To have your diabetes under control through the use of your pump Assessment: Patient is alert, oriented, a strong advocate of his own healthcare needs that we try to accommodate. No Smoking: If you smoke, Please STOP! Call for help.
[2022-01-27 15:13] VITALS: BP 148/85
--- NOTE | 2022-01-27 17:50 | DISCHARGE SUMMARY ---
Discharge Summary Admit Date: 01/26/22 Discharge Date: 01/27/22 Discharging Provider: Lolly Sales MD Primary Care Provider: Zackary Dean MD Code Status: Attempt Resuscitation Condition at Discharge: Fair Discharge Disposition: 01 Home, Self Care - DIAGNOSES Discharge Diagnoses with Status of Each Condition: 1. Diabetic ketoacidosis, type I 2. Hyperkalemia 3. Depression 4. Chronic back pain - HPI History of Present Illness: Patient has been admitted once to our service back in May of this year. At that time he was not on an insulin pump and was just getting approved. He presented a cyclical vomiting, and had run out of his insulin for 2 days. He does use cannibus. He's been seen in the ER for high glucose and questionable functioning pump 09/11/21, a bee sting 09/2021, a bug bite 11/2021 (glucose 108), syncope 01/16/22 (glucose 278) w/diagnosis of sinusitis. He noticed that his glucose was climbing yesterday but no reason. PUmp is working and CGM is working. No fever, no chills, no sore throat, no cough, no abd pain and no change in bowel habits. and he is eating on time. Today he was taking a walk with his when overcome by fatigue, shortness of breath. Came to the ED where he was with normal vitals. 36.8, 80 pulse, 123/69, 16, 100 room air. Occ his RR is 28. Sodium is 127, potassium 5.9, AG is 17, creatinine 1.5, glucose 681, venous gas with pH 7.31, pC02 37, Base excess 6.4. - Past Medical History Cardiovascular: reports: Hypertension, High cholesterol, Arrhythmia, Other Respiratory: reports: Pneumonia Neuro: reports: Dementia, CVA, Other Endocrine/Autoimmune: reports: Type 1 diabetes, HyPOthyroidism GI: reports: GERD, Ulcers, Colon polyps : reports: Other HEENT: reports: None Psych: reports: None Musculoskeletal: reports: Chronic back pain Derm: reports: None MRSA Hx?: No - Past Surgical History General: reports: Colonoscopy Ortho: reports: Carpal Tunnel surgery HEENT: reports: Other - HOSPITAL COURSE Hospital Course: Patient was placed in the ICU on an insulin drip. We asked him to turn off his pump. He said he did not know how. We explained that he really could not have the insulin pump as well as her IV drip at the same time and he became irritated and disconnected his pump from tubing. Pharmacy took the pump and put it in pharmacy for safekeeping. Over the next night he was maintained on insulin drip until anion gap closed and he was no longer ketotic. We did attempt to resume his insulin pump but he does not have the tubing here. So we had to give him sliding scale insulin before breakfast and before lunch. He refused Lantus because he said it would interfere with his pump mechanism once he got home. Discharge was delayed a few hours because he could not get a ride home. Naren shen somebody came to pick him up. We have asked him to resume his pump immediately when he gets home. Trying to figure out if his pump is actually working. We cannot. He has no reason to have gone into DKA without any evidence of infection, PR, stress, steroids, etc. He is discharged in stable condition with a temperature 36.8. Heart rate 89. Blood pressure 148/85. Respirations 18. 97% on room air. He is 61 inches tall, 83.5 kg. Well-nourished well-developed white male, no acute distress Supple neck Clear lungs Regular rate and rhythm Abdomen soft, nontender, normal bowel sounds Extremities without edema Able to ambulate without any ataxia or assist He is asked to follow-up with his primary care provider in the next 1 to 2 weeks. To follow-up with his paraeducator to find out how this pump can be turned off so he can avoid "the tubing" problems that we had this admission. Glucose at discharge 165. - ALLERGIES Allergies/Adverse Reactions: Allergies Allergy/AdvReac Type Severity Reaction Status Date / Time omeprazole Allergy Intermediate Nausea Verified 01/16/22 15:38 insulin aspart Allergy Unknown Verified 01/16/22 15:38 [From Novolog U-100 Insulin aspart] insulin aspart protamine Allergy Unknown Verified 01/16/22 15:38 human [From Novolog Mix 70-30 U-100 Insuln] codeine AdvReac Severe Dizziness Verified 01/16/22 15:38 doxycycline AdvReac Intermediate Dizziness Verified 01/16/22 15:38 - MEDICATIONS Home Medications: Ambulatory Orders Medication Instructions Recorded Confirmed Atorvastatin Calcium [Lipitor] 80 mg PO QPM 05/30/21 01/26/22 Donepezil HCl [Aricept] 10 mg PO DAILY 05/30/21 01/26/22 Insulin Lispro [Humalog] 70 units SQ DAILY 05/30/21 01/26/22 Mirtazapine 45 mg PO QPM 05/30/21 01/26/22 EPINEPHrine [Epinephrine] 0.3 mg IJ ONCE PRN #1 dis.syr 10/02/21 01/26/22 DULoxetine [Cymbalta] 30 mg PO DAILY 01/26/22 01/26/22 Tamsulosin [Flomax] 0.4 mg PO DAILY 01/26/22 01/26/22 - LABS Result Diagrams: 01/27/22 04:44 01/27/22 04:44
== END 2022-01-27 15:24 | disposition home or self-care (01) ==
LOC: EDUNIT# → ED 09:22 → ICU 10:35
PROVIDERS: ADMIT Specialist; ATTEND Specialist
DX: E10.10 Type 1 diabetes mellitus with ketoacidosis without coma (principal); E87.5 Hyperkalemia; T38.3X6A Underdosing of insulin and oral hypoglycemic [antidiabetic] drugs, initial encounter; G89.29 Other chronic pain; M54.50 Low back pain, unspecified; R07.9 Chest pain, unspecified; F32.A Depression, unspecified; F41.9 Anxiety disorder, unspecified; I10 Essential (primary) hypertension; E78.00 Pure hypercholesterolemia, unspecified; F03.90 Unspecified dementia, unspecified severity, without behavioral disturbance, psychotic disturbance, mood disturbance, and anxiety; E03.9 Hypothyroidism, unspecified; K21.9 Gastro-esophageal reflux disease without esophagitis; Z20.822 Contact with and (suspected) exposure to COVID-19; Z79.4 Long term (current) use of insulin; Z79.899 Other long term (current) drug therapy; Z82.3 Family history of stroke; Z82.49 Family history of ischemic heart disease and other diseases of the circulatory system; Z86.73 Personal history of transient ischemic attack (TIA), and cerebral infarction without residual deficits; Z87.891 Personal history of nicotine dependence; Z96.41 Presence of insulin pump (external) (internal)
CPT/HCPCS: 36415; 71045; 80048; 80053; 81003; 82009; 82330; 82803; 83036; 83735; 84100; 84132; 84484; 85025; 87150; 87633; 93005; 94640; 96361; 96365; 96366; 99285; 99291; A9270; G0378; J1815; 81001; 82947; 87086

== ENCOUNTER → 2022-02-12 | Outpatient (CLI) | payer MEDICARE | END | disposition EMS.NT | LOC: EMS 11:27 | DX: T85.898A Other specified complication of other internal prosthetic devices, implants and grafts, initial encounter (principal); Z96.41 Presence of insulin pump (external) (internal) ==

== ENCOUNTER 2022-02-19 13:37 | Outpatient (CLI) | payer MEDICARE | END 2022-02-19 23:59 | disposition critical access hospital (66) | LOC: EMS 13:37 | DX: K92.0 Hematemesis (principal); R19.5 Other fecal abnormalities | CPT/HCPCS: A0425; A0429 ==

== ENCOUNTER 2022-02-19 13:55 | Emergency (ER) | payer MEDICARE ==
[2022-02-19 14:13] LABS: BASOPHILS # (AUTO) 0.1 10^3/uL (0.0-0.1); BASOPHILS % (AUTO) 1.4 %; EOSINOPHILS % (AUTO) 0.6 %; HGB - HEMOGLOBIN 13.8 g/dL (14.0-18.0); LYMPHOCYTES % (AUTO) 19.7 %; MEAN CORPUSCULAR HEMOGLOBIN 29.2 pg (27.0-31.0); MEAN CORPUSCULAR HGB CONC 33.7 g/dL (32.0-36.0); MEAN CORPUSCULAR VOLUME 86.9 fL (80.0-94.0); MEAN PLATELET VOLUME 10.6 fL (7.4-11.4); MONOCYTES # (AUTO) 0.5 10^3/uL (0.0-1.0); MONOCYTES % (AUTO) 8.7 %; NEUTROPHILS # (AUTO) 3.6 10^3/uL (1.5-6.6); NEUTROPHILS % (AUTO) 69.2 %; PLT - PLATELET COUNT 248 10^3/uL (130-450); RED BLOOD COUNT 4.72 10^6/uL (4.70-6.10); RED CELL DISTRIBUTION WIDTH 12.5 % (12.0-15.0); WHITE BLOOD COUNT 5.2 x10^3/uL (4.8-10.8)
[2022-02-19 14:19] LABS: PT - PROTHROMBIN TIME 11.3 secs (9.9-12.6)
[2022-02-19 14:21] LABS: VBG HCO3 27.9 mmol/L (23-28); VBG PCO2 42.8 mmHg (41-51); VBG PH 7.422 (7.31-7.41)
[2022-02-19 14:26] VITALS: BP 127/75
[2022-02-19 14:30] LABS: PARTIAL THROMBOPLASTIN TIME 27.5 secs (24.9-33.3)
[2022-02-19 14:32] LABS: ALBUMIN 3.9 g/dL (3.2-5.5); ALBUMIN/GLOBULIN RATIO 1.3 (1.0-2.2); ALKALINE PHOSPHATASE 61 IU/L (42-121); ALT ALANINE AMINOTRANSFERASE 17 IU/L (10-60); AST ASPARTATE AMINOTRANSFERASE 15 IU/L (10-42); BILIRUBIN,TOTAL 0.6 mg/dL (0.2-1.0); BUN - BLOOD UREA NITROGEN 23 mg/dL (6-20); CALCIUM 9.5 mg/dL (8.5-10.3); CARBON DIOXIDE - CO2 27 mmol/L (21-32); CHLORIDE 98 mmol/L (101-111); CREATININE 0.9 mg/dL (0.6-1.2); GFR - MDRD 87 (>89); GLUCOSE 155 mg/dL (70-100); LIPASE 36 U/L (22-51); POTASSIUM 4.3 mmol/L (3.5-5.0); SODIUM 135 mmol/L (135-145); TOTAL PROTEIN 6.9 g/dL (6.7-8.2)
[2022-02-19 14:47] LABS: KETONES, SERUM (ACETEST) NEGATIVE (NEGATIVE)
[2022-02-19] MEDS ORDERED: PROMETHAZINE INJ 25 MG in SODIUM CHLORIDE 0.9% 50 ML IV STA (14:58)
--- NOTE | 2022-02-19 15:26 | ED Physician Documentation ---
PD HPI ABD PAIN - Stated complaint Stated Complaint: ABD/VOMITING - Chief complaint Chief Complaint: Abd Pain - History obtained from History obtained from: Patient - History of Present Illness Timing - duration: Hours (3-4) Timing - details: Gradual onset Pain level max: 5 Pain level now: 3 Associated symptoms: Nausea, Vomiting. No: Fever, Diarrhea, Constipation, Melena, Hematochezia, Dysuria - Additional information Additional information: Patient is a 56-year-old male who presents to the emergency department complaining of generalized abdominal pain today. Emesis x2. He states that the first time he threw up he believes there may have been some blood in it. There was no blood in the second episode of emesis. No diarrhea. No constipation. No melena or hematochezia. He states he still feels nauseated and like his abdomen is "full". Has a history of diabetes. Is on an insulin pump. Review of Systems Ten Systems: 10 systems reviewed and negative Constitutional: denies: Fever, Chills Nose: denies: Rhinorrhea / runny nose, Congestion Respiratory: denies: Cough GI: denies: Diarrhea, Bloody / black stool : denies: Dysuria, Frequency, Hesitancy Skin: denies: Rash Musculoskeletal: denies: Neck pain, Back pain Neurologic: denies: Headache PD PAST MEDICAL HISTORY - Past Medical History Past Medical History: Yes Cardiovascular: Hypertension, High cholesterol, Arrhythmia, Other Respiratory: Pneumonia Neuro: Dementia, CVA, Other Endocrine/Autoimmune: Type 1 diabetes, HyPOthyroidism GI: GERD, Ulcers, Colon polyps : Other HEENT: None Psych: None Musculoskeletal: Chronic back pain Derm: None - Past Surgical History Past Surgical History: Yes General: Colonoscopy Ortho: Carpal Tunnel surgery HEENT: Other - Present Medications Home Medications: Ambulatory Orders Medication Instructions Recorded Confirmed Atorvastatin Calcium [Lipitor] 80 mg PO QPM 05/30/21 02/19/22 Donepezil HCl [Aricept] 10 mg PO DAILY 05/30/21 02/19/22 Insulin Lispro [Humalog] 70 units SQ DAILY 05/30/21 02/19/22 Mirtazapine 45 mg PO QPM 05/30/21 02/19/22 EPINEPHrine [Epinephrine] 0.3 mg IJ ONCE PRN #1 dis.syr 10/02/21 02/19/22 DULoxetine [Cymbalta] 30 mg PO DAILY 01/26/22 02/19/22 Tamsulosin [Flomax] 0.4 mg PO DAILY 01/26/22 02/19/22 Promethazine [Phenergan] 25 mg PO Q6H PRN #10 tab 02/19/22 - Allergies Allergies/Adverse Reactions: Allergies Allergy/AdvReac Type Severity Reaction Status Date / Time omeprazole Allergy Intermediate Nausea Verified 02/19/22 14:01 insulin aspart Allergy Unknown Verified 02/19/22 14:01 [From Novolog U-100 Insulin aspart] insulin aspart protamine Allergy Unknown Verified 02/19/22 14:01 human [From Novolog Mix 70-30 U-100 Insuln] codeine AdvReac Severe Dizziness Verified 02/19/22 14:01 doxycycline AdvReac Intermediate Dizziness Verified 02/19/22 14:01 - Social History Does the pt smoke?: No Smoking Status: Never smoker Does the pt drink ETOH?: No Does the pt have substance abuse?: Yes - Immunizations Immunizations are current?: Yes - POLST Patient has POLST: No POLST Status: Full Code PD ED PE NORMAL - Vitals Vital signs reviewed: Yes - General General: Alert and oriented X 3, No acute distress - HEENT HEENT: PERRL, Moist mucous membranes - Neck Neck: Supple, no meningeal sign - Cardiac Cardiac: RRR, Strong equal pulses - Respiratory Respiratory: No respiratory distress, Clear bilaterally - Abdomen Abdomen: Normal bowel sounds, Soft, Non tender, Non distended - Back Back: No CVA TTP, No spinal TTP - Derm Derm: Warm and dry - Extremities Extremities: No edema - Neuro Neuro: Alert and oriented X 3 - Psych Psych: Normal mood, Normal affect Results - Vitals Vitals: Vital Signs - 24 hr 02/19/22 02/19/22 02/19/22 14:01 14:24 17:05 Temperature 36.1 C L Heart Rate 52 L 53 L 48 L Respiratory 18 14 15 Rate Blood Pressure 126/77 127/75 O2 Saturation 100 97 100 Oxygen O2 Source [Without Activity] Room air O2 Source Room air - Labs Labs: Laboratory Tests 02/19/22 02/19/22 02/19/22 14:05 14:05 14:05 WBC 5.2 RBC 4.72 Hgb 13.8 L Hct 41.0 L MCV 86.9 MCH 29.2 MCHC 33.7 RDW 12.5 Plt Count 248 MPV 10.6 Neut # (Auto) 3.6 Lymph # (Auto) 1.0 L Sherman # (Auto) 0.5 Eos # (Auto) 0.0 Baso # (Auto) 0.1 Absolute Nucleated RBC 0.00 Nucleated RBC % 0.0 PT INR APTT VBG pH 7.422 H VBG pCO2 42.8 VBG pO2 26.0 VBG HCO3 27.9 VBG Total CO2 29.0 VBG O2 Saturation 49.0 L VBG Base Excess 3.0 H Sodium 135 Potassium 4.3 Chloride 98 L Carbon Dioxide 27 Anion Gap 10.0 BUN 23 H Creatinine 0.9 Estimated GFR (MDRD) 87 L Glucose 155 H Calcium 9.5 Total Bilirubin 0.6 AST 15 ALT 17 Alkaline Phosphatase 61 Total Protein 6.9 Albumin 3.9 Globulin 3.0 Albumin/Globulin Ratio 1.3 Lipase 36 Serum Ketones NEGATIVE Blood Type Antibody Screen 02/19/22 02/19/22 02/19/22 14:05 14:05 17:16 WBC 6.1 RBC 4.66 L Hgb 13.6 L Hct 41.1 L MCV 88.2 MCH 29.2 MCHC 33.1 RDW 12.6 Plt Count 221 MPV 10.9 Neut # (Auto) 4.5 Lymph # (Auto) 1.1 L Sherman # (Auto) 0.4 Eos # (Auto) 0.0 Baso # (Auto) 0.1 Absolute Nucleated RBC 0.00 Nucleated RBC % 0.0 PT 11.3 INR 1.0 APTT 27.5 VBG pH VBG pCO2 VBG pO2 VBG HCO3 VBG Total CO2 VBG O2 Saturation VBG Base Excess Sodium Potassium Chloride Carbon Dioxide Anion Gap BUN Creatinine Estimated GFR (MDRD) Glucose Calcium Total Bilirubin AST ALT Alkaline Phosphatase Total Protein Albumin Globulin Albumin/Globulin Ratio Lipase Serum Ketones Blood Type A NEGATIVE Antibody Screen NEGATIVE PD MEDICAL DECISION MAKING - ED course Complexity details: reviewed results, re-evaluated patient, considered differential, d/w patient ED course: Patient is well-appearing, nontoxic. Afebrile. Tolerating p.o. without difficulty. Appears to have diabetic gastroparesis, likely the cause of his symptoms. He will follow-up with his doctor for further care of this. No vomiting here. No change in his hemoglobin. Abdomen is soft, nontender nondistended. Patient counseled regarding signs and symptoms for which I believe and urgent re-evaluation would be necessary. Patient with good understanding of and agreement to plan and is comfortable going home at this time This document was made in part using voice recognition software. While efforts are made to proofread this document, sound alike and grammatical errors may occur. IMPRESSION: 1. Fluid distended gastric lumen. No gross gastric wall thickening. Gastroparesis cannot be excluded suggest clinical correlation. 2. No bowel obstruction or abnormal bowel wall thickening. No abscess collection. No free fluid of free air. Sigmoid diverticulosis without CT evidence of acute diverticulitis. 3. No renal stones or hydronephrosis. Departure - Departure Disposition: 01 Home, Self Care Clinical Impression: Diabetic gastroparesis Condition: Good Instructions: ED Diabetic Gastroparesis Follow-Up: your,doctor in 1 week [Other] Prescriptions: Promethazine [Phenergan] 25 mg PO Q6H PRN #10 tab PRN Reason: Nausea / Vomiting Comments: Your prescription was sent to [facility] in [place]. Please follow-up with your doctor for further care and management of your diabetic gastroparesis. Return if you worsen. Discharge Date/Time: 02/19/22 17:46
[2022-02-19] MEDS ORDERED: iohexoL-300 100 ML VIAL ONE (15:27)
[2022-02-19] MEDS ORDERED: iohexoL-300 100 ML VIAL IVP ONE (16:40)
--- NOTE | 2022-02-19 16:53 | CT Report ---
PROCEDURE: ABDOMEN/PELVIS W INDICATIONS: Diffuse abdominal pain, vomiting CONTRAST: 100mL [id number] TECHNIQUE: After the administration of IV contrast, 5 mm thick sections acquired from the diaphragms to the symp hysis. 5 mm thick coronal and sagittal reformats were acquired. For radiation dose reduction, the f ollowing was used: automated exposure control, adjustment of mA and/or kV according to patient size. COMPARISON: 06/01/2021. FINDINGS: Image quality: Excellent. ABDOMEN: Lung bases: Lung bases are clear. Heart size is normal. Solid organs: Liver and spleen are normal in size and enhancement. Gallbladder is within normal watson its. Biliary system is non dilated. Pancreas enhances normally. No adrenal nodules. Kidneys demon strate normal size and enhancement, without hydronephrosis. Peritoneum and bowel: Fluid distended gastric lumen is noted. No gross gastric wall thickening. Tarun l loops demonstrate normal wall thickness and caliber. No free fluid or air. A few sigmoid divertic wes are seen. No sigmoid colon wall thickening or mesenteric fat stranding is noted. Nodes and vessels: No retroperitoneal or mesenteric adenopathy by size criteria. Aorta and inferior vena cava are normal in size. Miscellaneous: No ventral hernias. PELVIS: Genitourinary: Bladder wall thickness is normal. Miscellaneous: No inguinal hernias or adenopathy. Bones: No suspicious bony lesions. Chronic appearing anterior wedge compression deformities are not ed at L1, L2 and L5 levels unchanged from prior studies. No acute vertebral body compression fracture s. IMPRESSION: 1. Fluid distended gastric lumen. No gross gastric wall thickening. Gastroparesis cannot be excluded suggest clinical correlation. 2. No bowel obstruction or abnormal bowel wall thickening. No abscess collection. No free fluid of fr ee air. Sigmoid diverticulosis without CT evidence of acute diverticulitis. 3. No renal stones or hydronephrosis. Reviewed by: Ji Quiñones MD on 02/19/2022 4:52 PM PST Approved by: Ji Quiñones MD on 02/19/2022 4:52 PM PST Station ID: [id number]
[2022-02-19] MEDS ORDERED: METOCLOPRAMIDE 10 MG/2 ML VIAL IVP STA (17:05)
[2022-02-19 17:31] LABS: BASOPHILS # (AUTO) 0.1 10^3/uL (0.0-0.1); BASOPHILS % (AUTO) 1.5 %; EOSINOPHILS % (AUTO) 0.5 %; HCT - HEMATOCRIT 41.1 % (42.0-52.0); HGB - HEMOGLOBIN 13.6 g/dL (14.0-18.0); LYMPHOCYTES # (AUTO) 1.1 10^3/uL (1.5-3.5); LYMPHOCYTES % (AUTO) 17.6 %; MEAN CORPUSCULAR HEMOGLOBIN 29.2 pg (27.0-31.0); MEAN CORPUSCULAR HGB CONC 33.1 g/dL (32.0-36.0); MEAN CORPUSCULAR VOLUME 88.2 fL (80.0-94.0); MEAN PLATELET VOLUME 10.9 fL (7.4-11.4); MONOCYTES # (AUTO) 0.4 10^3/uL (0.0-1.0); MONOCYTES % (AUTO) 6.9 %; NEUTROPHILS # (AUTO) 4.5 10^3/uL (1.5-6.6); NEUTROPHILS % (AUTO) 73.3 %; PLT - PLATELET COUNT 221 10^3/uL (130-450); RED BLOOD COUNT 4.66 10^6/uL (4.70-6.10); RED CELL DISTRIBUTION WIDTH 12.6 % (12.0-15.0); WHITE BLOOD COUNT 6.1 x10^3/uL (4.8-10.8)
== END 2022-02-19 17:46 | disposition home or self-care (01) ==
LOC: EDUNIT# → ED 13:55
DX: E10.43 Type 1 diabetes mellitus with diabetic autonomic (poly)neuropathy (principal); K31.84 Gastroparesis; Z79.4 Long term (current) use of insulin
CPT/HCPCS: 36415; 74177; 80053; 82009; 82803; 83690; 85025; 85610; 85730; 86850; 86900; 86901; 96365; 96375; 99284; J2765; J7040; Q9967; 81001; 81003; 87086

== ENCOUNTER 2022-04-16 13:22 | Outpatient (CLI) | payer MEDICARE | END 2022-04-16 13:23 | disposition critical access hospital (66) | LOC: EMS 13:22 | DX: E10.65 Type 1 diabetes mellitus with hyperglycemia (principal); R11.0 Nausea; R10.84 Generalized abdominal pain | CPT/HCPCS: A0425; A0427 ==

== ENCOUNTER 2022-04-16 13:39 | Emergency (ER) | payer MEDICARE ==
[2022-04-16 14:17] LABS: VBG BASE EXCESS -5.1 mmol/L (-2 - +2); VBG HCO3 20.3 mmol/L (23-28); VBG OXYGEN SATURATION 76.9 % (60-80); VBG PCO2 38.8 mmHg (41-51); VBG PH 7.336 (7.31-7.41); VBG PO2 43.7 mmHg (25-47); VBG TOTAL CO2 21.5 mmol/L (24-29)
[2022-04-16 14:18] LABS: BASOPHILS # (AUTO) 0.1 10^3/uL (0.0-0.1); EOSINOPHILS % (AUTO) 0.5 %; HCT - HEMATOCRIT 37.7 % (42.0-52.0); HGB - HEMOGLOBIN 12.4 g/dL (14.0-18.0); LYMPHOCYTES # (AUTO) 0.7 10^3/uL (1.5-3.5); LYMPHOCYTES % (AUTO) 12.2 %; MEAN CORPUSCULAR HEMOGLOBIN 29.2 pg (27.0-31.0); MEAN CORPUSCULAR HGB CONC 32.9 g/dL (32.0-36.0); MEAN CORPUSCULAR VOLUME 88.7 fL (80.0-94.0); MEAN PLATELET VOLUME 11.2 fL (7.4-11.4); MONOCYTES # (AUTO) 0.4 10^3/uL (0.0-1.0); MONOCYTES % (AUTO) 6.4 %; NEUTROPHILS # (AUTO) 4.6 10^3/uL (1.5-6.6); NEUTROPHILS % (AUTO) 79.6 %; PLT - PLATELET COUNT 255 10^3/uL (130-450); RED BLOOD COUNT 4.25 10^6/uL (4.70-6.10); RED CELL DISTRIBUTION WIDTH 12.2 % (12.0-15.0); WHITE BLOOD COUNT 5.7 x10^3/uL (4.8-10.8)
[2022-04-16 14:19] LABS: KETONES, SERUM (ACETEST) SMALL (NEGATIVE)
[2022-04-16] MEDS ORDERED: ONDANSETRON 4 MG/2 ML VIAL IVP STA (14:24)
[2022-04-16] MEDS ORDERED: SODIUM CHLORIDE 0.9% 1,000 ML IV STA ×2 (14:24→16:40)
--- NOTE | 2022-04-16 14:28 | ED Physician Documentation ---
History of Present Illness - Stated complaint Stated Complaint: N/V - Chief complaint Chief Complaint: General - History obtained from History obtained from: Patient - Additonal information Additional information: Patient is a 56-year-old male with a history of insulin-dependent diabetes presenting for evaluation of nausea and vomiting since this morning. Patient reports that recently feeling unwell since the of his dad a month ago. He was admitted earlier this month to a hospital in [facility] with DKA and at that time was also told he has RSV.They discharged him home on Lantus and lispro which she initially used but then transition back to his insulin pump. He feels that his pump is working appropriately. He denies recent fever, Chest pain or difficulty breathing. He continues to have a productive cough of clear phlegm. He denies abdominal pain, dysuria. Patient was hospitalized at [facility] from March 23 to March 24 for DKA.Per the discharge summary he is on an insulin pump which is apparently failing complaining of nausea, vomiting and diarrhea and was admitted to the ICU for DKA management overnight.He was also found to be positive for RSV. He was prescribed Lantus and lispro.He was prescribed Lispro 8 units 3 times daily before meals and Lantus 30 units at bedtime Review of Systems Constitutional: denies: Fever Cardiac: denies: Chest pain / pressure Respiratory: reports: Cough GI: reports: Nausea, Vomiting : denies: Dysuria Musculoskeletal: denies: Back pain Neurologic: denies: Headache PD PAST MEDICAL HISTORY - Past Medical History Cardiovascular: Hypertension, High cholesterol, Arrhythmia, Other Respiratory: Pneumonia Neuro: Dementia, CVA, Other Endocrine/Autoimmune: Type 1 diabetes, HyPOthyroidism GI: GERD, Ulcers, Colon polyps : Other HEENT: None Psych: None Musculoskeletal: Chronic back pain Derm: None - Past Surgical History Past Surgical History: Yes General: Colonoscopy Ortho: Carpal Tunnel surgery HEENT: Other - Present Medications Home Medications: Ambulatory Orders Medication Instructions Recorded Confirmed Atorvastatin Calcium [Lipitor] 80 mg PO QPM 05/30/21 02/19/22 Donepezil HCl [Aricept] 10 mg PO DAILY 05/30/21 02/19/22 Insulin Lispro [Humalog] 70 units SQ DAILY 05/30/21 02/19/22 Mirtazapine 45 mg PO QPM 05/30/21 02/19/22 EPINEPHrine [Epinephrine] 0.3 mg IJ ONCE PRN #1 dis.syr 10/02/21 02/19/22 DULoxetine [Cymbalta] 30 mg PO DAILY 01/26/22 02/19/22 Tamsulosin [Flomax] 0.4 mg PO DAILY 01/26/22 02/19/22 Promethazine [Phenergan] 25 mg PO Q6H PRN #10 tab 02/19/22 Albuterol 2.5 mg INH Q4H PRN #30 ml 04/16/22 Albuterol Sulf [Ventolin Hfa 1 - 2 puffs INH Q4HR PRN #1 each 04/16/22 Inhaler] Ondansetron Odt [Zofran] 4 mg TL Q6H PRN #10 tablet 04/16/22 - Allergies Allergies/Adverse Reactions: Allergies Allergy/AdvReac Type Severity Reaction Status Date / Time omeprazole Allergy Intermediate Nausea Verified 04/17/22 06:09 insulin aspart Allergy Unknown Verified 04/17/22 06:09 [From Novolog U-100 Insulin aspart] insulin aspart protamine Allergy Unknown Verified 04/17/22 06:09 human [From Novolog Mix 70-30 U-100 Insuln] codeine AdvReac Severe Dizziness Verified 04/17/22 06:09 doxycycline AdvReac Intermediate Dizziness Verified 04/17/22 06:09 - Social History Does the pt smoke?: No Smoking Status: Never smoker Does the pt drink ETOH?: No Does the pt have substance abuse?: Yes - Immunizations Immunizations are current?: Yes - POLST Patient has POLST: No POLST Status: Full Code PD ED PE NORMAL - General General: Alert and oriented X 3, No acute distress, Well developed/nourished - HEENT HEENT: Atraumatic - Neck Neck: Supple, no meningeal sign - Cardiac Cardiac: RRR, No murmur - Respiratory Respiratory: No respiratory distress, Clear bilaterally - Abdomen Abdomen: Soft, Non tender, Non distended - Derm Derm: Warm and dry - Extremities Extremities: No edema - Neuro Neuro: Alert and oriented X 3, No motor deficit, Normal speech Results - Vitals Vitals: Vital Signs - 24 hr 04/16/22 04/16/22 04/16/22 13:46 13:50 15:50 Temperature 36.5 C 36.5 C Heart Rate 84 84 74 Respiratory 16 16 16 Rate Blood Pressure 126/71 126/71 135/74 H O2 Saturation 97 97 97 04/16/22 04/16/22 17:00 19:00 Temperature 36.5 C 36.5 C Heart Rate 75 76 Respiratory 16 16 Rate Blood Pressure 134/81 H 130/80 O2 Saturation 98 100 Oxygen O2 Source [] Room air O2 Source Room air - EKG (time done) 1639 Rate: Rate (enter#) Rhythm: NSR Hardy: Normal Intervals: No: Prolonged QT Ischemia: No: ST elevation c/w ischemia - Labs Labs: Laboratory Tests 04/16/22 04/16/22 04/16/22 14:07 14:07 14:07 WBC 5.7 RBC 4.25 L Hgb 12.4 L Hct 37.7 L MCV 88.7 MCH 29.2 MCHC 32.9 RDW 12.2 Plt Count 255 MPV 11.2 Neut # (Auto) 4.6 Lymph # (Auto) 0.7 L Dewitt # (Auto) 0.4 Eos # (Auto) 0.0 Baso # (Auto) 0.1 Absolute Nucleated RBC 0.00 Nucleated RBC % 0.0 VBG pH 7.336 VBG pCO2 38.8 L VBG pO2 43.7 VBG HCO3 20.3 L VBG Total CO2 21.5 L VBG O2 Saturation 76.9 VBG Base Excess -5.1 L Sodium 127 L Potassium 4.7 Chloride 94 L Carbon Dioxide 16 L Anion Gap 17.0 H BUN 31 H Creatinine 1.3 H Estimated GFR (MDRD) 57 L Glucose 548 H* Calcium 8.5 Total Bilirubin 1.7 H AST 12 ALT 14 Alkaline Phosphatase 59 Total Protein 6.6 L Albumin 3.3 Globulin 3.3 Albumin/Globulin Ratio 1.0 Lipase 23 Urine Color Urine Clarity Urine pH Ur Specific [place] Urine Protein Urine Glucose (UA) Urine Ketones Urine Occult Blood Urine Nitrite Urine Bilirubin Urine Urobilinogen Ur Leukocyte Esterase Ur Microscopic Review Urine Culture Comments Nasal Adenovirus (PCR) Nasal B. parapertussis DNA (PCR) Nasal Coronavir 229E PCR Nasal Coronavir HKU1 PCR Nasal Coronavir NL63 PCR Nasal Coronavir OC43 PCR Nasal Enterovir/Rhinovir PCR Nasal Influenza B PCR Nasal Influenza A PCR Nasal Parainfluen 1 PCR Nasal Parainfluen 2 PCR Nasal Parainfluen 3 PCR Nasal Parainfluen 4 PCR Nasal RSV (PCR) Nasal B.pertussis DNA PCR Nasal C.pneumoniae (PCR) Sever[place] Human Metapneumo PCR Nasal M.pneumoniae (PCR) Nasal SARS-CoV-2 (PCR) Serum Ketones SMALL H 04/16/22 04/16/22 04/16/22 14:30 14:36 17:58 WBC RBC Hgb Hct MCV MCH MCHC RDW Plt Count MPV Neut # (Auto) Lymph # (Auto) [place] # (Auto) Eos # (Auto) Baso # (Auto) Absolute Nucleated RBC Nucleated RBC % VBG pH VBG pCO2 VBG pO2 VBG HCO3 VBG Total CO2 VBG O2 Saturation VBG Base Excess Sodium 136 Potassium 3.9 Chloride 103 Carbon Dioxide 22 Anion Gap 11.0 BUN 26 H Creatinine 1.1 Estimated GFR (MDRD) 69 L Glucose 93 Calcium 8.9 Total Bilirubin AST ALT Alkaline Phosphatase Total Protein Albumin Globulin Albumin/Globulin Ratio Lipase Urine Color YELLOW Urine Clarity CLEAR Urine pH 6.0 Ur Specific [place] 1.015 Urine Protein NEGATIVE Urine Glucose (UA) >=1000 H Urine Ketones >=80 H Urine Occult Blood NEGATIVE Urine Nitrite NEGATIVE Urine Bilirubin NEGATIVE Urine Urobilinogen 0.2 (NORMAL) Ur Leukocyte Esterase NEGATIVE Ur Microscopic Review NOT INDICATED Urine Culture Comments NOT INDICATED Nasal Adenovirus (PCR) DETECTED A Nasal B. parapertussis DNA (PCR) NOT DETECTED Nasal Coronavir 229E PCR NOT DETECTED Nasal Coronavir HKU1 PCR NOT DETECTED Nasal Coronavir NL63 PCR NOT DETECTED Nasal Coronavir OC43 PCR DETECTED A Nasal Enterovir/Rhinovir PCR NOT DETECTED Nasal Influenza B PCR NOT DETECTED Nasal Influenza A PCR NOT DETECTED Nasal Parainfluen 1 PCR NOT DETECTED Nasal Parainfluen 2 PCR NOT DETECTED Nasal Parainfluen 3 PCR NOT DETECTED Nasal Parainfluen 4 PCR NOT DETECTED Nasal RSV (PCR) NOT DETECTED Nasal B.pertussis DNA PCR NOT DETECTED Nasal C.pneumoniae (PCR) NOT DETECTED Severo Human Metapneumo PCR NOT DETECTED Nasal M.pneumoniae (PCR) NOT DETECTED Nasal SARS-CoV-2 (PCR) NOT DETECTED Serum Ketones 04/16/22 17:58 WBC RBC Hgb Hct MCV MCH MCHC RDW Plt Count MPV Neut # (Auto) Lymph # (Auto) [place] # (Auto) Eos # (Auto) Baso # (Auto) Absolute Nucleated RBC Nucleated RBC % VBG pH 7.356 VBG pCO2 44.2 VBG pO2 25.9 VBG HCO3 24.2 VBG Total CO2 25.5 VBG O2 Saturation 47.7 L VBG Base Excess -1.5 Sodium Potassium Chloride Carbon Dioxide Anion Gap BUN Creatinine Estimated GFR (MDRD) Glucose Calcium Total Bilirubin AST ALT Alkaline Phosphatase Total Protein Albumin Globulin Albumin/Globulin Ratio Lipase Urine Color Urine Clarity Urine pH Ur Specific [place] Urine Protein Urine Glucose (UA) Urine Ketones Urine Occult Blood Urine Nitrite Urine Bilirubin Urine Urobilinogen Ur Leukocyte Esterase Ur Microscopic Review Urine Culture Comments Nasal Adenovirus (PCR) Nasal B. parapertussis DNA (PCR) Nasal Coronavir 229E PCR Nasal Coronavir HKU1 PCR Nasal Coronavir NL63 PCR Nasal Coronavir OC43 PCR Nasal Enterovir/Rhinovir PCR Nasal Influenza B PCR Nasal Influenza A PCR Nasal Parainfluen 1 PCR Nasal Parainfluen 2 PCR Nasal Parainfluen 3 PCR Nasal Parainfluen 4 PCR Nasal RSV (PCR) Nasal B.pertussis DNA PCR Nasal C.pneumoniae (PCR) Sever[place] Human Metapneumo PCR Nasal M.pneumoniae (PCR) Nasal SARS-CoV-2 (PCR) Serum Ketones PD Medical Decision Making - ED course Complexity details: reviewed results, re-evaluated patient, d/w patient ED course: Patient presenting for evaluation of nausea vomiting in the setting of hyperglycemia. He is a known diabetic. Labs drawn to evaluate for DKA. I reviewed his labs. Patient does have a small amount of ketones and elevated anion gap. Venous pH is within normal limits but concern for early DKA. Patient was started on insulin drip and given IV fluids. He was monitored for several hours as there was no ICU bed available.He was feeling better and was no longer feeling nauseous. He never had any tachypnea or signs of labored breathing.His glucose improved and on recheck his gap had closed and his pH remained normal. He was feeling much better and felt that he wanted to go home. He was tolerating p.o. He felt that his recent URI symptoms were causing his glucose levels to be uncontrolled. He did test positive on his respiratory panel for adenovirus and non-COVID coronavirus. His chest x-ray which I reviewed is negative for signs of pneumonia.He believes his insulin pump is functioning and is not interested in using Lantus and lispro as he was discharged with a few weeks ago during an inpatient stay. He plans to follow-up with his primary care doctor as well as the staff educator. Departure - Departure Disposition: 01 Home, Self Care Clinical Impression: Diabetic ketoacidosis, Viral URI Condition: Stable Instructions: ED Hyperglycemia Diabetic, ED Viral Syndrome Prescriptions: Albuterol Sulf [Ventolin Hfa Inhaler] 1 - 2 puffs INH Q4HR PRN #1 each PRN Reason: Shortness Of Air/Wheezing Albuterol 2.5 mg INH Q4H PRN #30 ml PRN Reason: Wheezing Ondansetron Odt [Zofran] 4 mg TL Q6H PRN #10 tablet PRN Reason: Nausea / Vomiting Comments: Your labs were concerning for mild DKA. Fortunately it seems that we were able to Quickly correct this with IV fluids and insulin this afternoon and your gap is closed. Please continue with your insulin as prescribed. You have tested positive for 2 respiratory viruses (Adenovirus, non-COVID type of coronavirus) Which may be the reason for your elevated blood sugars. I have sent prescriptions for antinausea medication as well as refills of your albuterol to [facility] in [place]. I would recommend close follow-up with your primary care doctor regarding your diabetes management. If at anytime you have any worsening symptoms please return to the emergency department. Discharge Date/Time: 04/16/22 19:15
[2022-04-16 14:29] LABS: ALBUMIN 3.3 g/dL (3.2-5.5); ALKALINE PHOSPHATASE 59 IU/L (42-121); ALT ALANINE AMINOTRANSFERASE 14 IU/L (10-60); AST ASPARTATE AMINOTRANSFERASE 12 IU/L (10-42); BILIRUBIN,TOTAL 1.7 mg/dL (0.2-1.0); BUN - BLOOD UREA NITROGEN 31 mg/dL (6-20); CALCIUM 8.5 mg/dL (8.5-10.3); CARBON DIOXIDE - CO2 16 mmol/L (21-32); CHLORIDE 94 mmol/L (101-111); CREATININE 1.3 mg/dL (0.6-1.2); GFR - MDRD 57 (>89); GLUCOSE 548 mg/dL (70-100); LIPASE 23 U/L (22-51); POTASSIUM 4.7 mmol/L (3.5-5.0); SODIUM 127 mmol/L (135-145); TOTAL PROTEIN 6.6 g/dL (6.7-8.2)
[2022-04-16] MEDS ORDERED: INSULIN REGULAR HUMAN 100 UNIT/1 ML 10 ML MDV IVP STA (14:41)
[2022-04-16] MEDS ORDERED: INSULIN REGULAR HUMAN 100 UNIT in SODIUM CHLORIDE 0.9% 100ML 99 ML IV STA ×3 (14:41→14:47)
--- NOTE | 2022-04-16 14:57 | XRAY Report ---
PROCEDURE: Chest 1 View X-Ray INDICATIONS: cough TECHNIQUE: One view of the chest was acquired. COMPARISON: 01/26/2022. FINDINGS: Surgical changes and devices: None. Lungs and pleura: No pleural effusions or pneumothorax. Lungs are clear. Lungs hyperinflated sugges ting COPD. Mediastinum: Mediastinal contours appear normal. Heart size is normal. Bones and chest wall: No suspicious bony lesions. Overlying soft tissues appear unremarkable. IMPRESSION: No acute cardiopulmonary disease process. Reviewed by: Kelly Lee MD, PhD on 04/16/2022 2:56 PM PST Approved by: Kelly Lee MD, PhD on 04/16/2022 2:56 PM PST Station ID: [id number]
[2022-04-16 15:42] LABS: BILIRUBIN,URINE NEGATIVE (NEGATIVE); GLUCOSE, URINE (UA) >=1000 mg/dL (NEGATIVE); KETONES,URINE (UA) >=80 mg/dL (NEGATIVE); LEUKOCYTE ESTERASE, URINE NEGATIVE (NEGATIVE); NITRITE,URINE NEGATIVE (NEGATIVE); OCCULT BLOOD,URINE NEGATIVE (NEGATIVE); PROTEIN,URINE NEGATIVE (NEGATIVE); UROBILINOGEN,URINE 0.2 (NORMAL) E.U./dL (NORMAL)
[2022-04-16 15:57] LABS: CLARITY,URINE CLEAR (CLEAR)
[2022-04-16 15:59] LABS: B. PARAPERTUSSIS- RESP PCR PAN NOT DETECTED; B. PERTUSSIS- RESP PCR PANEL NOT DETECTED; C. PNEUMONIAE- RESP PCR PANEL NOT DETECTED; CORONAVIRUS 229E-RESP PCR NOT DETECTED; CORONAVIRUS HKU1-RESP PCR NOT DETECTED; CORONAVIRUS NL63-RESP PCR NOT DETECTED; CORONAVIRUS OC43-RESP PCR DETECTED; HUMAN METAPNEUMOVIRUS NOT DETECTED; INFLUENZA A- RESP PCR PANEL NOT DETECTED; INFLUENZA B - RESP PCR PANEL NOT DETECTED; M. PNEUMONIAE- RESP PCR PANEL NOT DETECTED; PARAINFLUENZA VIRUS 1 NOT DETECTED; PARAINFLUENZA VIRUS 2 NOT DETECTED; PARAINFLUENZA VIRUS 3 NOT DETECTED; PARAINFLUENZA VIRUS 4 NOT DETECTED; RHINOVIRUS/ENTEROVIRUS NOT DETECTED; RSV- RESP PCR PANEL NOT DETECTED; SARS-CoV-2 -RESP PCR PANEL NOT DETECTED
[2022-04-16 18:19] LABS: VBG HCO3 24.2 mmol/L (23-28); VBG PCO2 44.2 mmHg (41-51); VBG PH 7.356 (7.31-7.41); VBG PO2 25.9 mmHg (25-47); VBG TOTAL CO2 25.5 mmol/L (24-29)
[2022-04-16 18:20] LABS: CALCIUM 8.9 mg/dL (8.5-10.3); CREATININE 1.1 mg/dL (0.6-1.2); POTASSIUM 3.9 mmol/L (3.5-5.0); VBG BASE EXCESS -1.5 mmol/L (-2 - +2); VBG OXYGEN SATURATION 47.7 % (60-80)
[2022-04-16 19:15] VITALS: BP 130/80
[2022-04-17] MEDS ORDERED: ONDANSETRON ODT 4 MG TABLET TL PRN (11:56)
[2022-04-17] MEDS ORDERED: ACETAMINOPHEN 325 MG TABLET PO PRN (11:56)
[2022-04-17] MEDS ORDERED: ONDANSETRON 4 MG/2 ML VIAL IVP PRN (11:56)
[2022-04-17] MEDS ORDERED: SODIUM CHLORIDE FLUSH 0.9% 10 ML SYRINGE IVP PRN (11:56)
[2022-04-17] MEDS ORDERED: ENOXAPARIN 40 MG/0.4 ML SYRINGE SUBQ SCH (12:00)
[2022-04-17] MEDS ORDERED: SODIUM CHLORIDE 0.9% 1,000 ML IV SCH (12:00)
[2022-04-17] MEDS ORDERED: INSULIN REGULAR HUMAN 100 UNIT in SODIUM CHLORIDE 0.9% 100ML 99 ML IV SCH (12:00)
[2022-04-17] MEDS ORDERED: DEXTROSE 5%-0.9% NACL 1,000 ML IV SCH (12:00)
[2022-04-17] MEDS ORDERED: SODIUM CHLORIDE FLUSH 0.9% 10 ML SYRINGE IVP SCH (17:00)
[2022-04-18 05:55] LABS: BASOPHILS % (AUTO) 0.6 %; EOSINOPHILS # (AUTO) 0.1 10^3/uL (0.0-0.7); EOSINOPHILS % (AUTO) 1.2 %; HCT - HEMATOCRIT 35.5 % (42.0-52.0); HGB - HEMOGLOBIN 11.7 g/dL (14.0-18.0); LYMPHOCYTES # (AUTO) 1.6 10^3/uL (1.5-3.5); LYMPHOCYTES % (AUTO) 24.5 %; MEAN CORPUSCULAR HEMOGLOBIN 29.2 pg (27.0-31.0); MEAN CORPUSCULAR VOLUME 88.5 fL (80.0-94.0); MEAN PLATELET VOLUME 10.9 fL (7.4-11.4); MONOCYTES # (AUTO) 0.5 10^3/uL (0.0-1.0); MONOCYTES % (AUTO) 7.8 %; NEUTROPHILS # (AUTO) 4.4 10^3/uL (1.5-6.6); NEUTROPHILS % (AUTO) 65.6 %; PLT - PLATELET COUNT 246 10^3/uL (130-450); RED BLOOD COUNT 4.01 10^6/uL (4.70-6.10); RED CELL DISTRIBUTION WIDTH 12.7 % (12.0-15.0); WHITE BLOOD COUNT 6.6 x10^3/uL (4.8-10.8)
[2022-04-18 06:02] LABS: KETONES, SERUM (ACETEST) SMALL (NEGATIVE)
[2022-04-18 06:22] LABS: BUN - BLOOD UREA NITROGEN 19 mg/dL (6-20); CALCIUM 7.7 mg/dL (8.5-10.3); CARBON DIOXIDE - CO2 19 mmol/L (21-32); CHLORIDE 112 mmol/L (101-111); CREATININE 0.9 mg/dL (0.6-1.2); GFR - MDRD 87 (>89); GLUCOSE 150 mg/dL (70-100); POTASSIUM 3.4 mmol/L (3.5-5.0); SODIUM 140 mmol/L (135-145)
[2022-04-18 12:02] LABS: ESTIMATED AVERAGE GLUCOSE 194 mg/dL (70-100); HEMOGLOBIN A1c% 8.4 % (4.27-6.07)
== END 2022-04-16 19:15 | disposition home or self-care (01) ==
LOC: EDUNIT# → ED 13:39
DX: E10.10 Type 1 diabetes mellitus with ketoacidosis without coma (principal); J06.9 Acute upper respiratory infection, unspecified; I10 Essential (primary) hypertension; Z79.4 Long term (current) use of insulin; Z20.822 Contact with and (suspected) exposure to COVID-19
CPT/HCPCS: 36415; 71045; 80048; 80053; 81003; 82009; 82803; 83690; 85025; 87633; 93005; 96360; 99284; J1815; 81001; 82947; 83036; 83735; 87086

== ENCOUNTER 2022-04-17 05:36 | Outpatient (CLI) | payer MEDICARE | END 2022-04-17 05:37 | disposition critical access hospital (66) | LOC: EMS 05:36 | DX: E11.65 Type 2 diabetes mellitus with hyperglycemia (principal); Z79.4 Long term (current) use of insulin; R07.81 Pleurodynia | CPT/HCPCS: A0425; A0427 ==

== ENCOUNTER 2022-04-17 05:56 | Inpatient (IN) | payer MEDICARE ==
[2022-04-17] MEDS ORDERED: ONDANSETRON 4 MG/2 ML VIAL IVP STA (06:31)
[2022-04-17 06:47] LABS: VBG BASE EXCESS -9.9 mmol/L (-2 - +2); VBG HCO3 15.9 mmol/L (23-28); VBG PCO2 34.9 mmHg (41-51); VBG PH 7.277 (7.31-7.41); VBG PO2 45.4 mmHg (25-47)
[2022-04-17 06:48] LABS: VBG OXYGEN SATURATION 76.2 % (60-80)
[2022-04-17 06:54] LABS: KETONES, SERUM (ACETEST) SMALL (NEGATIVE)
[2022-04-17 06:59] LABS: ALBUMIN 3.7 g/dL (3.2-5.5); ALKALINE PHOSPHATASE 82 IU/L (42-121); ALT ALANINE AMINOTRANSFERASE 18 IU/L (10-60); AST ASPARTATE AMINOTRANSFERASE 15 IU/L (10-42); BILIRUBIN,TOTAL 1.8 mg/dL (0.2-1.0); BUN - BLOOD UREA NITROGEN 32 mg/dL (6-20); CARBON DIOXIDE - CO2 15 mmol/L (21-32); CHLORIDE 98 mmol/L (101-111); CREATININE 1.4 mg/dL (0.6-1.2); GFR - MDRD 52 (>89); LIPASE 43 U/L (22-51); POTASSIUM 4.9 mmol/L (3.5-5.0); SODIUM 133 mmol/L (135-145); TOTAL PROTEIN 7.3 g/dL (6.7-8.2)
[2022-04-17 07:00] LABS: GLUCOSE 502 mg/dL (70-100)
[2022-04-17 07:02] LABS: BASOPHILS # (AUTO) 0.1 10^3/uL (0.0-0.1); BASOPHILS % (AUTO) 0.9 %; EOSINOPHILS % (AUTO) 0.4 %; HCT - HEMATOCRIT 41.2 % (42.0-52.0); HGB - HEMOGLOBIN 13.7 g/dL (14.0-18.0); LYMPHOCYTES # (AUTO) 0.8 10^3/uL (1.5-3.5); LYMPHOCYTES % (AUTO) 10.3 %; MEAN CORPUSCULAR HGB CONC 33.3 g/dL (32.0-36.0); MEAN CORPUSCULAR VOLUME 90.2 fL (80.0-94.0); MEAN PLATELET VOLUME 11.2 fL (7.4-11.4); MONOCYTES # (AUTO) 0.3 10^3/uL (0.0-1.0); MONOCYTES % (AUTO) 3.6 %; NEUTROPHILS # (AUTO) 6.1 10^3/uL (1.5-6.6); NEUTROPHILS % (AUTO) 82.9 %; PLT - PLATELET COUNT 264 10^3/uL (130-450); RED BLOOD COUNT 4.57 10^6/uL (4.70-6.10); RED CELL DISTRIBUTION WIDTH 12.3 % (12.0-15.0); WHITE BLOOD COUNT 7.4 x10^3/uL (4.8-10.8)
[2022-04-17] MEDS ORDERED: SODIUM CHLORIDE 0.9% 2,000 ML IV STA (07:21)
--- NOTE | 2022-04-17 07:41 | ED Physician Documentation ---
History of Present Illness - Stated complaint Stated Complaint: HYPERGLYCEMIA - Chief complaint Chief Complaint: Abd Pain - History obtained from History obtained from: Patient - Additonal information Additional information: Patient is a 56-year-old known insulin-dependent diabetic presenting for evaluation of nausea, vomiting, elevated glucose readings Since this morning. The patient was seen with a similar presentation yesterday in the emergency department and found to be in early DKA. He was given IV fluids and on an insulin drip. After several hours his gap is closed and he was feeling much better and tolerating p.o.He was on at that time that his recent URI was causing his symptoms and he wanted to go home but with the continued use of his insulin pump.He reports going home and eating chili and then sometime early this morning started having vomiting and feeling short of breath. Review of Systems Constitutional: denies: Fever Cardiac: reports: Chest pain / pressure Respiratory: reports: Dyspnea GI: reports: Nausea, Vomiting : denies: Dysuria PD PAST MEDICAL HISTORY - Past Medical History Cardiovascular: Hypertension, High cholesterol, Arrhythmia, Other Respiratory: Pneumonia Neuro: Dementia, CVA, Other Endocrine/Autoimmune: Type 1 diabetes, HyPOthyroidism GI: GERD, Ulcers, Colon polyps : Other HEENT: None Psych: None Musculoskeletal: Chronic back pain Derm: None - Past Surgical History Past Surgical History: Yes General: Colonoscopy Ortho: Carpal Tunnel surgery HEENT: Other - Present Medications Home Medications: Ambulatory Orders Medication Instructions Recorded Confirmed Atorvastatin Calcium [Lipitor] 80 mg PO QPM 05/30/21 02/19/22 Donepezil HCl [Aricept] 10 mg PO DAILY 05/30/21 02/19/22 Insulin Lispro [Humalog] 70 units SQ DAILY 05/30/21 02/19/22 Mirtazapine 45 mg PO QPM 05/30/21 02/19/22 EPINEPHrine [Epinephrine] 0.3 mg IJ ONCE PRN #1 dis.syr 10/02/21 02/19/22 DULoxetine [Cymbalta] 30 mg PO DAILY 01/26/22 02/19/22 Tamsulosin [Flomax] 0.4 mg PO DAILY 01/26/22 02/19/22 Promethazine [Phenergan] 25 mg PO Q6H PRN #10 tab 02/19/22 Albuterol 2.5 mg INH Q4H PRN #30 ml 04/16/22 Albuterol Sulf [Ventolin Hfa 1 - 2 puffs INH Q4HR PRN #1 each 04/16/22 Inhaler] Ondansetron Odt [Zofran] 4 mg TL Q6H PRN #10 tablet 04/16/22 - Allergies Allergies/Adverse Reactions: Allergies Allergy/AdvReac Type Severity Reaction Status Date / Time omeprazole Allergy Intermediate Nausea Verified 04/17/22 06:09 insulin aspart Allergy Unknown Verified 04/17/22 06:09 [From Novolog U-100 Insulin aspart] insulin aspart protamine Allergy Unknown Verified 04/17/22 06:09 human [From Novolog Mix 70-30 U-100 Insuln] codeine AdvReac Severe Dizziness Verified 04/17/22 06:09 doxycycline AdvReac Intermediate Dizziness Verified 04/17/22 06:09 - Social History Does the pt smoke?: No Smoking Status: Never smoker Does the pt drink ETOH?: No Does the pt have substance abuse?: Yes - Immunizations Immunizations are current?: Yes - POLST Patient has POLST: No POLST Status: Full Code PD ED PE NORMAL - General General: Alert and oriented X 3, Well developed/nourished, Other (Mild distress, tachypneic) - HEENT HEENT: Atraumatic - Neck Neck: Supple, no meningeal sign - Cardiac Cardiac: RRR - Respiratory Respiratory: Clear bilaterally, Other ([place] respirations) - Abdomen Abdomen: Normal bowel sounds, Soft, Non tender, Non distended - Derm Derm: Warm and dry - Extremities Extremities: No edema - Neuro Neuro: Alert and oriented X 3 Results - Vitals Vitals: Vital Signs - 24 hr 04/17/22 04/17/22 04/17/22 06:04 06:10 08:09 Temperature 36.2 C L Heart Rate 80 84 Respiratory 20 19 22 Rate Blood Pressure 125/77 157/89 H O2 Saturation 100 98 04/17/22 04/17/22 10:00 12:00 Temperature Heart Rate 83 71 Respiratory 16 15 Rate Blood Pressure 102/46 L 121/62 O2 Saturation 100 99 Oxygen O2 Source [] Room air O2 Source Room air - EKG (time done) 0846 Rate: Rate (enter#) (88) Rhythm: NSR [place]: Normal Intervals: Other (QTc 487) Ischemia: No: ST elevation c/w ischemia - Labs Labs: Laboratory Tests 04/17/22 04/17/22 04/17/22 06:39 06:39 06:39 WBC 7.4 RBC 4.57 L Hgb 13.7 L Hct 41.2 L MCV 90.2 MCH 30.0 MCHC 33.3 RDW 12.3 Plt Count 264 MPV 11.2 Neut # (Auto) 6.1 Lymph # (Auto) 0.8 L [place] # (Auto) 0.3 Eos # (Auto) 0.0 Baso # (Auto) 0.1 Absolute Nucleated RBC 0.00 Nucleated RBC % 0.0 VBG pH 7.277 L VBG pCO2 34.9 L VBG pO2 45.4 VBG HCO3 15.9 L VBG Total CO2 17.0 L VBG O2 Saturation 76.2 VBG Base Excess -9.9 L Sodium 133 L Potassium 4.9 Chloride 98 L Carbon Dioxide 15 L Anion Gap 20.0 H BUN 32 H Creatinine 1.4 H Estimated GFR (MDRD) 52 L Glucose 502 H* Calcium 9.0 Total Bilirubin 1.8 H AST 15 ALT 18 Alkaline Phosphatase 82 Troponin I High Sens Total Protein 7.3 Albumin 3.7 Globulin 3.6 Albumin/Globulin Ratio 1.0 Lipase 43 Urine Color Urine Clarity Urine pH Ur Specific [place] Urine Protein Urine Glucose (UA) Urine Ketones Urine Occult Blood Urine Nitrite Urine Bilirubin Urine Urobilinogen Ur Leukocyte Esterase Ur Microscopic Review Urine Culture Comments Serum Ketones SMALL H SARS-CoV-2 (PCR) 04/17/22 04/17/22 04/17/22 07:01 08:19 09:25 WBC RBC Hgb Hct MCV MCH MCHC RDW Plt Count MPV Neut # (Auto) Lymph # (Auto) [place] # (Auto) Eos # (Auto) Baso # (Auto) Absolute Nucleated RBC Nucleated RBC % VBG pH VBG pCO2 VBG pO2 VBG HCO3 VBG Total CO2 VBG O2 Saturation VBG Base Excess Sodium Potassium Chloride Carbon Dioxide Anion Gap BUN Creatinine Estimated GFR (MDRD) Glucose Calcium Total Bilirubin AST ALT Alkaline Phosphatase Troponin I High Sens 2.9 Total Protein Albumin Globulin Albumin/Globulin Ratio Lipase Urine Color LT. YELLOW Urine Clarity CLEAR Urine pH 6.0 Ur Specific [place] 1.020 Urine Protein NEGATIVE Urine Glucose (UA) 500 H Urine Ketones >=80 H Urine Occult Blood NEGATIVE Urine Nitrite NEGATIVE Urine Bilirubin NEGATIVE Urine Urobilinogen 0.2 (NORMAL) Ur Leukocyte Esterase NEGATIVE Ur Microscopic Review NOT INDICATED Urine Culture Comments NOT INDICATED Serum Ketones SARS-CoV-2 (PCR) NOT DETECTED PD Medical Decision Making - ED course Complexity details: reviewed results, re-evaluated patient, d/w patient ED course: Patient with nausea, vomiting and hyperglycemia. Appears to be in DKA on review of his labs.He is started on IV fluids and insulin drip.He did complain of chest pain and EKG was obtained which is negative for acute ischemia and his high-sensitivity troponin is negative. Did receive 1 dose of IV morphine for the chest pain and it did help. His chest x-ray is clear.And I personally reviewed his images His COVID test is negative.His abdominal exam is benign. He was seen yesterday and tested positive for adenovirus and non-COVID coronavirus. Patient advised on need for admission and is agreeable.I suspect that his insulin pump is actually not working as patient states it is. 1207 - D/W Dr. Sales who agrees to admit the patient. Requests that the patient have at least 2 very good peripheral IVs. I discussed with WANDY Ayers and she states he has 2 good IVs and can even place a 3rd which I have ordered. - Critical Care Time(min): 31 Time Includes: Direct patient care, Review records, Reassess patient Departure - Departure Disposition: [facility] DC/Xfer Clinical Impression: Adenovirus infection Diabetic ketoacidosis Qualifiers: Diabetes mellitus type: type 1 Condition: Fair
[2022-04-17 07:43] LABS: BILIRUBIN,URINE NEGATIVE (NEGATIVE); CLARITY,URINE CLEAR (CLEAR); GLUCOSE, URINE (UA) 500 mg/dL (NEGATIVE); KETONES,URINE (UA) >=80 mg/dL (NEGATIVE); LEUKOCYTE ESTERASE, URINE NEGATIVE (NEGATIVE); NITRITE,URINE NEGATIVE (NEGATIVE); OCCULT BLOOD,URINE NEGATIVE (NEGATIVE); PROTEIN,URINE NEGATIVE (NEGATIVE); UROBILINOGEN,URINE 0.2 (NORMAL) E.U./dL (NORMAL)
[2022-04-17] MEDS ORDERED: METOCLOPRAMIDE 10 MG/2 ML VIAL IVP STA (07:49)
[2022-04-17] MEDS: INSULIN REGULAR HUMAN 100 UNIT in SODIUM CHLORIDE 0.9% 100ML 99 ML IV STA ×2 (08:32→15:00)
[2022-04-17] MEDS ORDERED: MORPHINE 2 MG/ML CARPUJECT IVP STA (08:48)
--- NOTE | 2022-04-17 10:32 | XRAY Report ---
PROCEDURE: Chest 1 View X-Ray INDICATIONS: Chest pain TECHNIQUE: One view of the chest was acquired. COMPARISON: Chest radiograph 04/16/2022, 01/26/2022 FINDINGS: Surgical changes and devices: None. Lungs and pleura: No pleural effusions or pneumothorax. Lungs are clear. Mediastinum: Mediastinal contours appear normal. Heart size is normal. Bones and chest wall: No suspicious bony lesions. Overlying soft tissues appear unremarkable. IMPRESSION: No acute cardiopulmonary abnormality. Reviewed by: Juan Carlos Willis MD on 04/17/2022 10:30 AM [facility] Approved by: Juan Carlos Willis MD on 04/17/2022 10:30 AM [facility] Station ID: [id number]
--- NOTE | 2022-04-17 12:07 | HISTORY & PHYSICAL EXAMINATION ---
Chief Complaint - Chief Complaint Chief Complaint: Nausea vomiting abdominal pain History of Present Illness - Admitted From Admitted From:: home - History Obtained From Records Reviewed: [facility] History obtained from: patient and ER MD Exam Limitations: none - History of Present Illness HPI Comment/Other: 56-year-old type I diabetic who was hospitalized in [facility] at a [facility] facility recently for DKA. That DKA was precipitated by an RSV infection. He was discharged on Lantus and lispro. He took that for short time and then resumed his usual insulin management which is a pump. He is usually followed by Dr. Dean in our clinics.When he was seen in December of last year, he told Dr. Dean then he needed a new pump. It was delivering insulin inconsistently. It was not sinking up with his phone terrence very well. And he could not get a hold of the simulation educator. Dr. Dean sent him a request to please be seen in February 2022. He then call the clinic in January 2022 saying that he lost consciousness. His blood sugars were as high as 400 when he was seen in the clinic. He was seen by Adelita Cornejo, the diabetic nurse educator on February 14. She made some changes on his pump and he was supposed to been seen in 2 weeks. He told them that he was vomiting blood on February 19 and went to the emergency room. He then also call them on March 05 stating that he was in [place], and that he did not have enough Humalog insulin and they needed to send an emergency refill to the [facility] in [place]. From there he was admitted in DKA to [place]. He then called the office on April 09 stating he needed new prescription for insulin pump supplies. He said he could not remember when he last got them. He needed a Dexcom sensor, transmitter, track and field coach, infusion set, reservoir and needles. The patient missed his lab follow-up April 12. He then presented to our emergency room 04/16 with nausea, vomiting, abdominal pain. He was again in DKA but early stages. He was treated with IV fluids, insulin, and managed to close the gap. They fed him. He was anxious to go home. He resumed his pump. Ate some chili last night. And then awoke again in the shank scourer hours of today with recurrence of nausea, vomiting, abdominal pain. In the emergency room his glucose is 502. His anion gap is back up to 20. Creatinine is 1.4. pH 7.27, venous blood gas. Urinalysis has ketonuria but no infection. Small ketones on toxicology screen. As such the emergency room provider is asking us to admit the patient for DKA. We made sure he is not having an UT, no UTI, no pneumonia. He is positive for adenovirus and another virus. Not COVID-19. He may have another viral infection that tipped him off. We also discussed his pump. I queried whether his pump was working. According to the ER doctor the patient states that it is working and he is receiving his insulin. However, when I speak to the patient in the afternoon. The patient says that there is something wrong with his insulin. Even of the pump says it is going into his body, and says that "the insulin must be bad". But he cannot explain to me why he knows it is "bad". History - Past Medical History Cardiovascular: reports: Hypertension, High cholesterol, Arrhythmia, Other Respiratory: reports: Pneumonia Neuro: reports: Dementia, CVA (neuro suspects lacunar infarcts), Fainting (3 episodes 2020. TTE and NM stress nml. reveal loop [id number] neg. ), Other Endocrine/Autoimmune: reports: Type 1 diabetes, HyPOthyroidism GI: reports: GERD, Ulcers, Colon polyps : reports: Other (erectile dysfunction) HEENT: reports: Other (facial fractures from trauma) Psych: reports: Depression, Anxiety, ADD/ADHD Musculoskeletal: reports: Chronic back pain (from vertebral fx), Other (trigger finger) Derm: reports: None MRSA Hx?: No - Past Surgical History General: reports: Colonoscopy (02/2014 w 6 polyps) Ortho: reports: Carpal Tunnel surgery, Other (cyst on neck near spinal cord removed) Cardiovascular: reports: Other (implantable loop recorder summer 2020) HEENT: reports: Other (tonsillar abcess) - Family & Social History Family History: Other family: CAD, CVA/TIA Family History Comment/Other: States his father had a myocardial infarction in his early 30s and he also had a stroke. His maternal side has a strong history of cardiac disease and strokes as well. Living arrangement: At home Living Situation: With spouse/s.o. Social History Notes: He lives at home with his spouse. He no longer smokes but did smoke a pack and half a day for about 13 years but quit in his 30s. He rarely drinks alcohol. 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 - Substance History Use: Uses substance without health or social issues: Cannabis - POLST Patient has POLST: No POLST Status: Full Code Meds/Allgy - Home Medications Home Medications: Ambulatory Orders Medication Instructions Recorded Confirmed Atorvastatin Calcium [Lipitor] 80 mg PO QPM 05/30/21 04/17/22 Donepezil HCl [Aricept] 10 mg PO DAILY 05/30/21 04/17/22 Insulin Lispro [Humalog] 70 units SQ DAILY 05/30/21 04/17/22 Mirtazapine 45 mg PO QPM 05/30/21 04/17/22 EPINEPHrine [Epinephrine] 0.3 mg IJ ONCE PRN #1 dis.syr 10/02/21 04/17/22 DULoxetine [Cymbalta] 30 mg PO DAILY 01/26/22 04/17/22 Tamsulosin [Flomax] 0.4 mg PO DAILY 01/26/22 04/17/22 Albuterol 2.5 mg INH Q4H PRN #30 ml 04/16/22 04/17/22 Albuterol Sulf [Ventolin Hfa 1 - 2 puffs INH Q4HR PRN #1 each 04/16/22 04/17/22 Inhaler] Ondansetron Odt [Zofran] 4 mg TL Q6H PRN #10 tablet 04/16/22 04/17/22 - Allergies Allergies/Adverse Reactions: Allergies Allergy/AdvReac Type Severity Reaction Status Date / Time omeprazole Allergy Intermediate Nausea Verified 04/17/22 06:09 insulin aspart Allergy Unknown Verified 04/17/22 06:09 [From Novolog U-100 Insulin aspart] insulin aspart protamine Allergy Unknown Verified 04/17/22 06:09 human [From Novolog Mix 70-30 U-100 Insuln] codeine AdvReac Severe Dizziness Verified 04/17/22 06:09 doxycycline AdvReac Intermediate Dizziness Verified 04/17/22 06:09 Review of Systems - Constitutional Constitutional: reports: Fatigue, Malaise, Weakness, Poor appetite - Eyes Eyes: reports: Dipolpia. denies: Pain - Ears, Nose & Throat Ears, Nose & Throat: denies: Ear pain, Hearing loss, Hearing aids - Cardiovascular Cariovascular: denies: Irregular heart rate, Palpitations, Chest pain - Respiratory Respiratory: denies: Cough, Sputum production, SOB at rest, SOB with exertion - Gastrointestinal Gastrointestinal: reports: Abdominal pain, Nausea, Vomiting, Reflux/heartburn. denies: Abdominal distention, Constipation, Diarrhea, Change in bowel habits, Black stools, Bloody stools - Genitourinary Genitourinary: denies: Dysuria, Frequency, Urgency - Musculoskeletal Musculoskeletal: reports: Muscle pain, Muscle aches. denies: Back pain, Stiffness, Joint pain - Integumentary Integumentary: denies: Rash, Pruritis, Lesions - Neurological Neurological: denies: General weakness, Focal weakness, Headache, Memory problems, Pre-existing deficit - Psychiatric Psychiatric: denies: Depression, Anxiety, Suicidal - Endocrine Endocrine: reports: Polyuria, Polyphagia, Intolerance to cold. denies: Polyd ypsia - Hematologic/Lymphatic Hematologic/Lymphatic: denies: Anemia Prior Level of Functionality: Independent with activities of daily living. Works. Drives a car. Pays bills. Uses no durable medical equipment other than his insulin pump Exam - Vital Signs Reviewed Vital Signs: Yes Vital Signs: Vital Signs x48h Temp Pulse Resp BP Pulse Ox 04/17/22 12:00 71 15 121/62 99 04/17/22 10:00 83 16 102/46 L 100 04/17/22 08:09 84 22 157/89 H 98 04/17/22 06:10 19 04/17/22 06:04 36.2 C L 80 20 125/77 100 - Physical Exam General Appearance: positive: No acute distress, Alert, Other (Very tall white male. Working on his phone, watching TV. No diaphoresis, tachypnea. Nausea and vomiting have resolved) Eyes Bilateral: positive: PERRL, EOMI ENT: positive: No signs of dehydration Neck: positive: No JVD. negative: Stiff neck Respiratory: positive: No respiratory distress, Breath sounds nml Cardiovascular: positive: Regular rate & rhythm Peripheral Pulses: positive: 1+ Abdomen: positive: No organomegaly, Nml bowel sounds, No distention, Tenderness (Mild and generalized. No focal findings.). negative: Guarding, Rebound Back: negative: CVA tenderness (R), CVA tenderness (L) Skin: positive: Color nml, Warm, Dry. negative: Diaphoresis Extremities: positive: Non-tender, No pedal edema Neurologic/Psychiatric: positive: Oriented x3, CN's nml (2-12), Motor nml Conclusion/Plan - Problem List (1) Diabetic ketoacidosis Conclusion/Plan: After reading his office chart, and reading the ER notes, the impression I get is that this gentleman may not have a cognitive wherewithal to be using a pump and managing his diabetes. He is on Aricept and has a diagnosis of vascular dementia. He is evasive about the actual use of the pump. And tells me that "it is bad insulin" but when he shows me the reservoirs of insulin vials there is no insulin in the vials. Plan: ICU placement for DKA protocol Management of electrolytes and fluids per protocol Speak to tomorrow Qualifiers: Diabetes mellitus type: type 1 Diabetes mellitus complication detail: without coma Qualified Code(s): E10.10 - Type 1 diabetes mellitus with ketoacidosis without coma (2) Viral URI Conclusion/Plan: Minimally symptomatic. Lungs are clear. No rhinorrhea. No erythema of the throat. At this time just symptomatic management of symptom (3) Chronic back pain Conclusion/Plan: There are no chronic home meds for pain. Here he will get Tylenol, or oxycodone as needed. Qualifiers: Back pain location: low back pain - Lab Results Lab results reviewed: Yes Fish Bones: 04/17/22 06:39 04/18/22 16:20 Core Measures - Anticipated LOS I expect patient to be DC'd or transferred within 96 hours.: Yes - DVT/VTE - Prophylaxis VTE/DVT Prophylaxis med ordered at admit?: Yes
[2022-04-17 12:31] LABS: VBG BASE EXCESS -9.2 mmol/L (-2 - +2); VBG PCO2 37.9 mmHg (41-51); VBG PH 7.269 (7.31-7.41); VBG PO2 38.2 mmHg (25-47); VBG TOTAL CO2 18.1 mmol/L (24-29)
[2022-04-17 12:34] LABS: CALCIUM 8.4 mg/dL (8.5-10.3); CREATININE 1.2 mg/dL (0.6-1.2); MAGNESIUM 2.2 mg/dL (1.7-2.8); POTASSIUM 4.2 mmol/L (3.5-5.0)
[2022-04-17 13:25] LABS: CALCIUM 8.4 mg/dL (8.5-10.3); CREATININE 1.2 mg/dL (0.6-1.2); MAGNESIUM 2.2 mg/dL (1.7-2.8); POTASSIUM 4.3 mmol/L (3.5-5.0)
[2022-04-17] MEDS ORDERED: SODIUM CHLORIDE FLUSH 0.9% 10 ML SYRINGE IVP PRN (14:11)
[2022-04-17] MEDS ORDERED: ONDANSETRON 4 MG/2 ML VIAL IVP PRN (14:11)
[2022-04-17] MEDS ORDERED: oxyCODONE 5 MG TABLET PO PRN (14:11)
[2022-04-17] MEDS ORDERED: ONDANSETRON ODT 4 MG TABLET TL PRN (14:11)
[2022-04-17] MEDS ORDERED: ACETAMINOPHEN 325 MG TABLET PO PRN (14:11)
[2022-04-17 14:30] LABS: CALCIUM 8.3 mg/dL (8.5-10.3); CREATININE 1.2 mg/dL (0.6-1.2); POTASSIUM 3.8 mmol/L (3.5-5.0)
[2022-04-17] MEDS ORDERED: POTASSIUM CHLOR 10 MEQ/100 ML 10 MEQ/100 ML BAG IV ONE ×2 (15:04→16:19)
[2022-04-17] MEDS: DEXTROSE 5%-0.9% NACL 1,000 ML IV SCH ×2 (15:08→22:42)
[2022-04-17 16:16] LABS: CALCIUM, IONIZED 1.14 mmol/L (1.15-1.33); VBG PH 7.35 (7.31-7.41)
[2022-04-17] MEDS: SODIUM CHLORIDE 0.9% 1,000 ML IV SCH ×2 (16:41→22:43)
--- NOTE | 2022-04-17 17:47 | PHARMACY PROGRESS NOTE ---
- Best Possible Medication History Admit Date and Time: 04/17/22 1411 Processed by: Pharmacy Medication History completed: Yes Patient Interview: Completed Secondary Source(s): Pharmacy records As the person ultimately responsible for medication therapy, providers are able to order a medication from an existing home medication list in [facility] via the "Reconcile Routine" prior to Confirmation of that medication by technical support professional. Such practice is discouraged except when the physician, in their clinical judgment, deems that a medical need exists for a medication without regard to previous use.
[2022-04-17] MEDS: NEUTRA-PHOS 250 MG TABLET PO SCH ×2 (18:12→20:14)
[2022-04-17] MEDS: SODIUM CHLORIDE FLUSH 0.9% 10 ML SYRINGE IVP SCH (18:13)
[2022-04-17 19:02] LABS: CALCIUM 8.6 mg/dL (8.5-10.3); POTASSIUM 4.1 mmol/L (3.5-5.0)
[2022-04-17] MEDS: FAMOTIDINE 20 MG TABLET PO SCH (20:14)
[2022-04-17] MEDS: INSULIN REGULAR HUMAN 100 UNIT in SODIUM CHLORIDE 0.9% 100ML 99 ML IV SCH ×2 (20:17→20:47)
[2022-04-17 20:32] LABS: CALCIUM 8.4 mg/dL (8.5-10.3); CREATININE 1.1 mg/dL (0.6-1.2); POTASSIUM 4.4 mmol/L (3.5-5.0)
[2022-04-17] MEDS: MIRTAZAPINE 15 MG TABLET PO PRN (23:51)
[2022-04-18] MEDS: SODIUM CHLORIDE FLUSH 0.9% 10 ML SYRINGE IVP SCH ×4 (02:05→21:17)
[2022-04-18 05:55] LABS: VBG BASE EXCESS -4.1 mmol/L (-2 - +2); VBG HCO3 21.8 mmol/L (23-28); VBG OXYGEN SATURATION 90.6 % (60-80); VBG PCO2 42.8 mmHg (41-51); VBG PH 7.324 (7.31-7.41); VBG PO2 62.2 mmHg (25-47); VBG TOTAL CO2 23.1 mmol/L (24-29)
[2022-04-18 05:56] LABS: CALCIUM, IONIZED 1.14 mmol/L (1.15-1.33)
[2022-04-18 06:15] LABS: MAGNESIUM 1.7 mg/dL (1.7-2.8); PHOSPHORUS 3.8 mg/dL (2.5-4.6)
[2022-04-18] MEDS: DEXTROSE 5%-0.9% NACL 1,000 ML IV SCH ×2 (06:22→22:26)
[2022-04-18] MEDS: SODIUM CHLORIDE 0.9% 1,000 ML IV SCH ×3 (06:59→20:12)
[2022-04-18] MEDS: INSULIN REGULAR HUMAN 100 UNIT in SODIUM CHLORIDE 0.9% 100ML 99 ML IV SCH (09:21)
[2022-04-18] MEDS: POTASSIUM CHLOR 10 MEQ/100 ML 10 MEQ/100 ML BAG IV SCH ×4 (09:22→13:34)
[2022-04-18] MEDS: FAMOTIDINE 20 MG TABLET PO SCH ×2 (09:22→20:53)
[2022-04-18 09:38] LABS: MUDS CUTOFF CONCENTRATIONS CUTOFF CONC BELOW:
[2022-04-18] MEDS ORDERED: MAGNESIUM OXIDE 400 MG TABLET PO ONE ×2 (09:44→18:51)
[2022-04-18 09:58] LABS: AMPHETAMINE SCREEN,URINE NEGATIVE (NEGATIVE); BARBITURATE SCREEN,UR NEGATIVE (NEGATIVE); BENZODIAZEPINES SCREEN, URINE NEGATIVE (NEGATIVE); COCAINE SCREEN URINE NEGATIVE (NEGATIVE); METHADONE SCREEN, URINE NEGATIVE (NEGATIVE); METHAMPHETAMINES SCREEN, URINE NEGATIVE (NEGATIVE); OPIATE SCREEN, URINE POSITIVE (NEGATIVE); OXYCODONE SCREEN, URINE POSITIVE (NEGATIVE); PROPOXYPHENE SCREEN, URINE NEGATIVE (NEGATIVE); THC CANNABINOID SCREEN, URINE POSITIVE (NEGATIVE); TRICYCLIC ANTIDEPRESSANT,URINE NEGATIVE (NEGATIVE)
[2022-04-18] MEDS: INSULIN GLARGINE-YFGN 300 UNIT/3 ML PEN SUBQ SCH ×2 (11:03→21:01)
[2022-04-18] MEDS: INSULIN LISPRO 300 UNIT/3 ML PEN SUBQ SCH ×3 (12:22→21:02)
[2022-04-18] MEDS ORDERED: lisinopriL 5 MG TABLET PO STA (15:48)
--- NOTE | 2022-04-18 19:03 | PROVIDER PROGRESS NOTE ---
Subjective - Prog Note Date Prog Note Date: 04/18/22 Prog Note Time: 19:01 - Subjective Subjective: Throughout the day the patient has been alert, oriented. But his conversations leave me and nursing to believe that this gentleman really does have cognitive deficits that could be dangerous to himself. He really is not aware of how to handle his pump or use his insulin correctly. I had a long talk with his . She validates that he has been losing his memory. He is very forgetful. But she has not been able to bring this up because he gets angry. I have explained to her that unfortunately someone may have to take over giving him his insulin, or handling his pump. At the very least she needs to start going to his office visits with him. I also mentioned that as his dementia gets worse, there are legal ramifications to handling finances. Bauer of rolled ham lacer. While she does not need to do anything now, it should be a conversation she should have with her children, her , and possibly the primary care provider. I have stopped the insulin drip. Started Lantus. He cannot use the pump because the reservoir is empty. He keeps on insisting that the insulin in the reservoir vials are "bad insulin". I am using sliding scale glucose. And I am considering putting him on a fixed schedule of short acting before meals Current Medications - Current Medications Current Medications: Active Medications Acetaminophen (Acetaminophen 325 Mg Tablet) 650 mg PO Q4HR PRN PRN Reason: Pain 1 to 4, or Fever Atorvastatin Calcium (Atorvastatin 40 Mg Tablet) 80 mg PO QPM [facility] Donepezil HCl (Donepezil 5 Mg Tablet) 10 mg PO DAILY [facility] Duloxetine HCl (Duloxetine 30 Mg Capsule) 30 mg PO DAILY [facility] Famotidine (Famotidine 20 Mg Tablet) 20 mg PO BID [facility] Last Admin: 04/18/22 09:22 Dose: 20 mg Sodium Chloride (Normal Saline 0.9%) 1,000 mls @ 125 mls/hr IV .Q8H SRIDEVI Last Admin: 04/18/22 10:59 Dose: 125 mls/hr Dextrose/Sodium Chloride (D5ns) 1,000 mls @ 125 mls/hr IV .Q8H [facility] Last Infusion: 04/18/22 09:51 Dose: 0 mls/hr Insulin Glargine-yfgn (Insulin Glargine-Yfgn 300 Unit/3 Ml Pen) 20 unit SUBQ QDBREAKFAST [facility] Last Admin: 04/18/22 11:03 Dose: 20 unit Insulin Glargine-yfgn (Insulin Glargine-Yfgn 300 Unit/3 Ml Pen) 20 unit SUBQ QPM [facility] Insulin Human Lispro (Insulin Lispro 300 Unit/3 Ml Pen) 3 - 11 unit SUBQ 0800,1200,1700,2100 [facility]; Protocol Last Admin: 04/18/22 17:27 Dose: 9 unit Lisinopril (Lisinopril 5 Mg Tablet) 10 mg PO DAILY [facility] Mirtazapine (Mirtazapine 15 Mg Tablet) 45 mg PO QPM PRN PRN Reason: Insomnia Last Admin: 04/17/22 23:51 Dose: 45 mg Ondansetron HCl (Ondansetron Odt 4 Mg Tablet) 4 mg TL Q6HR PRN PRN Reason: Nausea / Vomiting Ondansetron HCl (Ondansetron 4 Mg/2 Ml Vial) 4 mg IVP Q6HR PRN PRN Reason: Nausea / Vomiting Oxycodone HCl (Oxycodone 5 Mg Tablet) 5 mg PO Q4HR PRN PRN Reason: Pain 5 to 7 Last Admin: 04/17/22 20:14 Dose: 5 mg Sodium Chloride (Sodium Chloride Flush 0.9% 10 Ml Syringe) 10 ml IVP 0100,0900,1700 [facility] Last Admin: 04/18/22 17:27 Dose: 10 ml Sodium Chloride (Sodium Chloride Flush 0.9% 10 Ml Syringe) 10 ml IVP PRN PRN PRN Reason: NEEDED PER PROVIDER ORDERS Tamsulosin HCl (Tamsulosin 0.4 Mg Capsule) 0.4 mg PO DAILY [facility] Atorvastatin Calcium [Lipitor] 80 mg PO QPM 05/30/21 Donepezil HCl [Aricept] 10 mg PO DAILY 05/30/21 Insulin Lispro [Humalog] 70 units SQ DAILY 05/30/21 Mirtazapine 45 mg PO QPM 05/30/21 DULoxetine [Cymbalta] 30 mg PO DAILY 01/26/22 Tamsulosin [Flomax] 0.4 mg PO DAILY 01/26/22 Objective - Vital Signs/Intake & Output Reviewed Vital Signs: Yes Vital Signs: Vital Signs x48h Temp Pulse Resp BP Pulse Ox 04/18/22 18:00 58 L 22 141/72 H 98 04/18/22 17:00 47 L 23 166/79 H 100 04/18/22 16:00 46 L 23 156/77 H 98 04/18/22 15:00 46 L 22 152/82 H 99 04/18/22 14:00 56 L 15 167/92 H 100 04/18/22 13:00 63 16 153/87 H 99 04/18/22 12:00 36.6 C 65 16 150/92 H 100 Intake & Output: Intake & Output 04/15/22 04/16/22 04/17/22 04/18/22 23:59 23:59 23:59 23:59 Intake Total 3395.092 3641.537 Output Total 175 855 Balance 3220.092 2786.537 - Objective General Appearance: positive: No acute distress, Alert, Other (Wiry white male, looks older than stated age, oriented to person place not necessarily time. Easily overwhelmed with information and will become evasive about showing me how he exactly he checks his insulin and how he decides what to do with the pump) Eyes Bilateral: positive: PERRL, EOMI ENT: positive: Pharynx nml, No signs of dehydration Neck: positive: No JVD Respiratory: positive: No respiratory distress. negative: Wheezes, Rales Cardiovascular: positive: Regular rate & rhythm Abdomen: positive: Non-tender, No organomegaly, Nml bowel sounds, No distention Skin: positive: Warm, Dry Extremities: positive: No pedal edema Neurologic/Psychiatric: positive: Oriented x3, CN's nml (2-12), Motor nml - Lab Results Fish Bones: 04/17/22 06:39 04/18/22 16:20 Other Labs: Lab Results x24hrs 04/18/22 04/18/22 04/18/22 Range/Units 16:20 16:20 09:27 VBG pH (7.31-7.41) VBG pCO2 (41-51) mmHg VBG pO2 (25-47) mmHg VBG HCO3 (23-28) mmol/L VBG Total CO2 (24-29) mmol/L VBG O2 Saturation (60-80) % VBG Base Excess (-2 - +2) mmol/L Ionized Calcium (1.15-1.33) mmol/L Sodium (135-145) mmol/L Potassium 4.3 (3.5-5.0) mmol/L Chloride (101-111) mmol/L Carbon Dioxide (21-32) mmol/L Anion Gap (6-13) BUN (6-20) mg/dL Creatinine (0.6-1.2) mg/dL Estimated GFR (MDRD) (>89) Glucose (70-100) mg/dL Calcium (8.5-10.3) mg/dL Phosphorus (2.5-4.6) mg/dL Magnesium 1.8 (1.7-2.8) mg/dL Urine Opiates Screen POSITIVE H (NEGATIVE) Ur Oxycodone Screen POSITIVE H (NEGATIVE) Urine Methadone Screen NEGATIVE (NEGATIVE) Ur Propoxyphene Screen NEGATIVE (NEGATIVE) Ur Barbiturates Screen NEGATIVE (NEGATIVE) Ur Tricyclics Screen NEGATIVE (NEGATIVE) Ur Phencyclidine Scrn NEGATIVE (NEGATIVE) Ur Amphetamine Screen NEGATIVE (NEGATIVE) U Methamphetamines Scrn NEGATIVE (NEGATIVE) U Benzodiazepines Scrn NEGATIVE (NEGATIVE) Urine Cocaine Screen NEGATIVE (NEGATIVE) U Cannabinoids Screen POSITIVE H (NEGATIVE) 04/18/22 04/18/22 04/18/22 Range/Units 05:40 05:40 05:40 VBG pH 7.324 7.324 (7.31-7.41) VBG pCO2 42.8 (41-51) mmHg VBG pO2 62.2 H (25-47) mmHg VBG HCO3 21.8 L (23-28) mmol/L VBG Total CO2 23.1 L (24-29) mmol/L VBG O2 Saturation 90.6 H (60-80) % VBG Base Excess -4.1 L (-2 - +2) mmol/L Ionized Calcium 1.14 L (1.15-1.33) mmol/L Sodium (135-145) mmol/L Potassium (3.5-5.0) mmol/L Chloride (101-111) mmol/L Carbon Dioxide (21-32) mmol/L Anion Gap (6-13) BUN (6-20) mg/dL Creatinine (0.6-1.2) mg/dL Estimated GFR (MDRD) (>89) Glucose (70-100) mg/dL Calcium (8.5-10.3) mg/dL Phosphorus 3.8 (2.5-4.6) mg/dL Magnesium 1.7 (1.7-2.8) mg/dL Urine Opiates Screen (NEGATIVE) Ur Oxycodone Screen (NEGATIVE) Urine Methadone Screen (NEGATIVE) Ur Propoxyphene Screen (NEGATIVE) Ur Barbiturates Screen (NEGATIVE) Ur Tricyclics Screen (NEGATIVE) Ur Phencyclidine Scrn (NEGATIVE) Ur Amphetamine Screen (NEGATIVE) U Methamphetamines Scrn (NEGATIVE) U Benzodiazepines Scrn (NEGATIVE) Urine Cocaine Screen (NEGATIVE) U Cannabinoids Screen (NEGATIVE) 04/17/22 04/17/22 Range/Units 20:15 18:45 VBG pH (7.31-7.41) VBG pCO2 (41-51) mmHg VBG pO2 (25-47) mmHg VBG HCO3 (23-28) mmol/L VBG Total CO2 (24-29) mmol/L VBG O2 Saturation (60-80) % VBG Base Excess (-2 - +2) mmol/L Ionized Calcium (1.15-1.33) mmol/L Sodium 138 137 (135-145) mmol/L Potassium 4.4 4.1 (3.5-5.0) mmol/L Chloride 108 105 (101-111) mmol/L Carbon Dioxide 16 L 17 L (21-32) mmol/L Anion Gap 14.0 H 15.0 H (6-13) BUN 24 H 25 H (6-20) mg/dL Creatinine 1.1 1.0 (0.6-1.2) mg/dL Estimated GFR (MDRD) 69 L 77 L (>89) Glucose 202 H 121 H (70-100) mg/dL Calcium 8.4 L 8.6 (8.5-10.3) mg/dL Phosphorus (2.5-4.6) mg/dL Magnesium (1.7-2.8) mg/dL Urine Opiates Screen (NEGATIVE) Ur Oxycodone Screen (NEGATIVE) Urine Methadone Screen (NEGATIVE) Ur Propoxyphene Screen (NEGATIVE) Ur Barbiturates Screen (NEGATIVE) Ur Tricyclics Screen (NEGATIVE) Ur Phencyclidine Scrn (NEGATIVE) Ur Amphetamine Screen (NEGATIVE) U Methamphetamines Scrn (NEGATIVE) U Benzodiazepines Scrn (NEGATIVE) Urine Cocaine Screen (NEGATIVE) U Cannabinoids Screen (NEGATIVE) Assessment/Plan - Problem List (1) Diabetic ketoacidosis Impression: Off insulin drip, and the pump cannot be used because there is no insulin in the reservoir. is surprised by this because she said he just picked up a whole bunch of supplies. Started on Lantus 20 twice daily, sliding scale insulin before meals, and consid er short acting insulin before meals as a fixed scheduled dose. Will have his bring in supplies from home and see if we can get him an insulin pump, and stable before we send him home. Otherwise I am afraid this gentleman is going to bounce back with DKA again Qualifiers: Diabetes mellitus type: type 1 Diabetes mellitus complication detail: without coma Qualified Code(s): E10.10 - Type 1 diabetes mellitus with ketoacidosis without coma (2) Viral URI Impression: No symptoms so far. Supportive measures only if he does get symptoms (3) Chronic back pain Impression: Stable. While it is present and part of his list of positive review of systems he says that he is not any worse than usual. Qualifiers: Back pain location: low back pain (4) Vascular dementia Impression: Memory loss is evident. I have already spoken to his . We will try and speak to his primary care provider if he is in the office tomorrow. Qualifiers: Dementia severity: moderate Dementia behavioral or psychological symptom: without behavioral, psychotic, or mood disturbance or anxiety Qualified Code(s): F01.B0 - Vascular dementia, moderate, without behavioral disturbance, psychotic disturbance, mood disturbance, and anxiety
[2022-04-18] MEDS: ATORVASTATIN 40 MG TABLET PO SCH (20:53)
[2022-04-18] MEDS: MIRTAZAPINE 15 MG TABLET PO PRN (21:14)
[2022-04-19 05:00] LABS: VBG BASE EXCESS 2.1 mmol/L (-2 - +2); VBG HCO3 26.1 mmol/L (23-28); VBG OXYGEN SATURATION 92.6 % (60-80); VBG PCO2 38.8 mmHg (41-51); VBG PH 7.446 (7.31-7.41); VBG PO2 62.8 mmHg (25-47); VBG TOTAL CO2 27.3 mmol/L (24-29)
[2022-04-19] MEDS: DEXTROSE 5%-0.9% NACL 1,000 ML IV SCH (05:00)
[2022-04-19 08:09] LABS: CALCIUM 8.4 mg/dL (8.5-10.3); CREATININE 0.8 mg/dL (0.6-1.2); POTASSIUM 3.4 mmol/L (3.5-5.0)
[2022-04-19] MEDS: SODIUM CHLORIDE 0.9% 1,000 ML IV SCH (08:28)
[2022-04-19] MEDS ORDERED: lisinopriL 5 MG TABLET PO SCH (09:00)
[2022-04-19] MEDS: INSULIN GLARGINE-YFGN 300 UNIT/3 ML PEN SUBQ SCH ×2 (09:18→21:16)
[2022-04-19] MEDS: INSULIN LISPRO 300 UNIT/3 ML PEN SUBQ SCH ×5 (09:18→21:10)
[2022-04-19] MEDS: FAMOTIDINE 20 MG TABLET PO SCH ×2 (09:19→21:02)
[2022-04-19] MEDS: DULoxetine 30 MG CAPSULE PO SCH (09:19)
[2022-04-19] MEDS: TAMSULOSIN 0.4 MG CAPSULE PO SCH (09:19)
[2022-04-19] MEDS: SODIUM CHLORIDE FLUSH 0.9% 10 ML SYRINGE IVP SCH ×2 (09:20→17:19)
[2022-04-19] MEDS: DONEPEZIL 5 MG TABLET PO SCH (09:28)
[2022-04-19] MEDS: POTASSIUM CHLORIDE 10 MEQ CAPSULE PO SCH ×3 (12:01→18:48)
--- NOTE | 2022-04-19 18:12 | PROVIDER PROGRESS NOTE ---
Subjective - Prog Note Date Prog Note Date: 04/19/22 Prog Note Time: 18:10 - Subjective Pt reports feeling: Improved Subjective: I explained to him that I think that he is got some cognitive deficits from old strokes. That he really needs a lot of help to take his insulin. And explained that I already spoken to his and she may have to start coming in to learn how to do things as well. With her that she go to diabetic classes, or go to the office visits with him, but she needs to learn to help him. He was dismissive. He said that she spends all of her time in bed. He has no idea what she does. She does not make any effort to work, or do anything so he is angry with her. He says it will be very surprised if his helps him do anything at all. Current Medications - Current Medications Current Medications: Active Medications Acetaminophen (Acetaminophen 325 Mg Tablet) 650 mg PO Q4HR PRN PRN Reason: Pain 1 to 4, or Fever Atorvastatin Calcium (Atorvastatin 40 Mg Tablet) 80 mg PO QPM [facility] Last Admin: 04/18/22 20:53 Dose: 80 mg Donepezil HCl (Donepezil 5 Mg Tablet) 10 mg PO DAILY [facility] Last Admin: 04/19/22 09:28 Dose: 10 mg Duloxetine HCl (Duloxetine 30 Mg Capsule) 30 mg PO DAILY [facility] Last Admin: 04/19/22 09:19 Dose: 30 mg Famotidine (Famotidine 20 Mg Tablet) 20 mg PO BID [facility] Last Admin: 04/19/22 09:19 Dose: 20 mg Insulin Glargine-yfgn (Insulin Glargine-Yfgn 300 Unit/3 Ml Pen) 20 unit SUBQ QDBREAKFAST [facility] Last Admin: 04/19/22 09:18 Dose: 20 unit Insulin Glargine-yfgn (Insulin Glargine-Yfgn 300 Unit/3 Ml Pen) 20 unit SUBQ QPM [facility] Last Admin: 04/18/22 21:01 Dose: 20 unit Insulin Human Lispro (Insulin Lispro 300 Unit/3 Ml Pen) 3 - 11 unit SUBQ 0800,1200,1700,2100 [facility]; Protocol Last Admin: 04/19/22 17:16 Dose: 5 unit Insulin Human Lispro (Insulin Lispro 300 Unit/3 Ml Pen) 5 unit SUBQ TIDWM [facility]; Protocol Last Admin: 04/19/22 17:17 Dose: 5 unit Lisinopril (Lisinopril 5 Mg Tablet) 10 mg PO DAILY [facility] Last Admin: 04/19/22 09:19 Dose: 10 mg Mirtazapine (Mirtazapine 15 Mg Tablet) 45 mg PO QPM PRN PRN Reason: Insomnia Last Admin: 04/18/22 21:14 Dose: 45 mg Ondansetron HCl (Ondansetron Odt 4 Mg Tablet) 4 mg TL Q6HR PRN PRN Reason: Nausea / Vomiting Ondansetron HCl (Ondansetron 4 Mg/2 Ml Vial) 4 mg IVP Q6HR PRN PRN Reason: Nausea / Vomiting Oxycodone HCl (Oxycodone 5 Mg Tablet) 5 mg PO Q4HR PRN PRN Reason: Pain 5 to 7 Last Admin: 04/17/22 20:14 Dose: 5 mg Sodium Chloride (Sodium Chloride Flush 0.9% 10 Ml Syringe) 10 ml IVP 0100,0900,1700 [facility] Last Admin: 04/19/22 17:19 Dose: 10 ml Sodium Chloride (Sodium Chloride Flush 0.9% 10 Ml Syringe) 10 ml IVP PRN PRN PRN Reason: NEEDED PER PROVIDER ORDERS Last Admin: 04/19/22 08:25 Dose: 10 ml Tamsulosin HCl (Tamsulosin 0.4 Mg Capsule) 0.4 mg PO DAILY [facility] Last Admin: 04/19/22 09:19 Dose: 0.4 mg Atorvastatin Calcium [Lipitor] 80 mg PO QPM 05/30/21 Donepezil HCl [Aricept] 10 mg PO DAILY 05/30/21 Insulin Lispro [Humalog] 70 units SQ DAILY 05/30/21 Mirtazapine 45 mg PO QPM 05/30/21 DULoxetine [Cymbalta] 30 mg PO DAILY 01/26/22 Tamsulosin [Flomax] 0.4 mg PO DAILY 01/26/22 Objective - Vital Signs/Intake & Output Reviewed Vital Signs: Yes Vital Signs: Vital Signs x48h Temp Pulse Resp BP Pulse Ox 04/19/22 18:00 69 18 154/104 H 100 04/19/22 17:00 61 16 99 04/19/22 16:00 58 L 22 150/77 H 97 04/19/22 15:00 61 16 138/86 H 100 04/19/22 14:07 141/86 H 04/19/22 14:00 36.5 C 63 22 98 04/19/22 13:00 66 20 146/95 H 100 04/19/22 12:00 67 13 123/91 H 95 04/19/22 11:00 59 L 14 137/87 H 98 Intake & Output: Intake & Output 04/16/22 04/17/22 04/18/22 04/19/22 23:59 23:59 23:59 23:59 Intake Total 3395.092 4929.037 2719.833 Output Total 175 2330 1780 Balance 3220.092 2599.037 939.833 - Objective General Appearance: positive: Alert, Other (Thin wiry middle-aged man who looks stated age. Sometimes his thought process is erratic. He does not hold a thought. And in asking him how he does certain things he forgets and midsentence what is trying to say and then he gets frustrated) Eyes Bilateral: positive: PERRL, EOMI ENT: positive: No signs of dehydration, Other (Poor dentition) Neck: positive: No JVD. negative: Stiff neck Respiratory: positive: No respiratory distress. negative: Wheezes, Rales, Rhonchi Cardiovascular: positive: Regular rate & rhythm Abdomen: positive: Non-tender, No organomegaly, Nml bowel sounds, No distention Skin: positive: Warm, Dry Extremities: positive: Full ROM, No pedal edema Neurologic/Psychiatric: positive: CN's nml (2-12), Motor nml, Disoriented to time - Lab Results Fish Bones: 04/17/22 06:39 04/19/22 07:55 Other Labs: Lab Results x24hrs 04/19/22 04/19/22 Range/Units 07:55 04:39 VBG pH 7.446 H (7.31-7.41) VBG pCO2 38.8 L (41-51) mmHg VBG pO2 62.8 H (25-47) mmHg VBG HCO3 26.1 (23-28) mmol/L VBG Total CO2 27.3 (24-29) mmol/L VBG O2 Saturation 92.6 H (60-80) % VBG Base Excess 2.1 H (-2 - +2) mmol/L Sodium 140 (135-145) mmol/L Potassium 3.4 L (3.5-5.0) mmol/L Chloride 107 (101-111) mmol/L Carbon Dioxide 23 (21-32) mmol/L Anion Gap 10.0 (6-13) BUN 12 (6-20) mg/dL Creatinine 0.8 (0.6-1.2) mg/dL Estimated GFR (MDRD) 99 (>89) Glucose 68 L (70-100) mg/dL Calcium 8.4 L (8.5-10.3) mg/dL Assessment/Plan - Problem List (1) Diabetic ketoacidosis Impression: Off insulin drip since evening of 04/17, and the pump cannot be used because there is no insulin in the reservoir. I explained this to , and she is surprised by this because she said he just picked up a whole bunch of supplies. The patient himself states that there is just "bad insulin" and that is why the pump is not working. He does not seem to understand that there is no insulin in the reservoir. Started on Lantus 20 twice daily, sliding scale insulin before meals, And I will be adding 5 units before meals today. He is not ready to be discharged today and that he needs to clearly demonstrate that he can drop the insulin, and give it to himself. Nursing is spent quite a bit of time with education today. If he is not can to be using the pump he needs to be able to give himself Lantus and short acting insulin until he can get into see the parking lot attendant. And again I have emphasized to him that his needs to go with him in the both need to be learning how to manage his diabetes. Will change to MedSurg status. Qualifiers: Diabetes mellitus type: type 1 Diabetes mellitus complication detail: without coma Qualified Code(s): E10.10 - Type 1 diabetes mellitus with ketoacidosis without coma (2) Viral URI Impression: No symptoms so far. Supportive measures only if he does get symptoms (3) Chronic back pain Impression: Stable. While it is present and part of his list of positive review of systems he says that he is not any worse than usual. Qualifiers: Back pain location: low back pain (4) Vascular dementia Impression: Memory loss is evident. I have already spoken to his 2/. Qualifiers: Dementia severity: moderate Dementia behavioral or psychological symptom: without behavioral, psychotic, or mood disturbance or anxiety Qualified Code(s): F01.B0 - Vascular dementia, moderate, without behavioral disturbance, psychotic disturbance, mood disturbance, and anxiety
[2022-04-19] MEDS: ATORVASTATIN 40 MG TABLET PO SCH (21:02)
[2022-04-19] MEDS: MIRTAZAPINE 15 MG TABLET PO PRN (21:05)
[2022-04-20] MEDS: SODIUM CHLORIDE FLUSH 0.9% 10 ML SYRINGE IVP SCH ×2 (01:05→10:47)
[2022-04-20 05:13] LABS: CALCIUM 8.7 mg/dL (8.5-10.3); CREATININE 0.8 mg/dL (0.6-1.2); POTASSIUM 3.6 mmol/L (3.5-5.0)
[2022-04-20] MEDS ORDERED: PIPERACILLIN/TAZOBACTAM 4.5 GM in SODIUM CHLORIDE 0.9% MINIBAG 100 ML IV SCH (08:00)
[2022-04-20] MEDS ORDERED: LOSARTAN 50 MG TABLET PO SCH (09:00)
[2022-04-20] MEDS: INSULIN GLARGINE-YFGN 300 UNIT/3 ML PEN SUBQ SCH (09:26)
[2022-04-20] MEDS: INSULIN LISPRO 300 UNIT/3 ML PEN SUBQ SCH ×2 (09:28)
--- NOTE | 2022-04-20 10:25 | Discharge Plan ---
Discharge Plan Problem Reviewed?: Yes Disposition: Home, Self Care Condition: Fair Prescriptions: Losartan [Cozaar] 50 mg PO DAILY #30 tab Insulin Lispro [Humalog Kwikpen U-100] 5 unit SUBQ TIDWM #3 ml Insulin Glargine-Yfgn [Semglee] 20 unit SUBQ BID 30 Days #8 ea Diet: Diabetic Activity Restrictions: Activity as Tolerated Shower Restrictions: No Driving Restrictions: No Health Concerns: You have been seen in the emergency room and had DKA. They were able to treat you, get your insulin down, and you felt ready to go home. You went back home, but came right back because you are back in DKA with generalized abdominal pain. You were put in the Intensive care unit and were treated with an insulin drip. After I reviewed your clinic notes with Dr. Dean, it appears that you are having difficulty in figuring out how to use your pump. There seems to be problems with supplies that are delayed, insulin reservoirs that are empty, i nsulin "that is bad insulin", sometimes you keep your appointments and sometimes you do not. I think what I am seeing is someone who has had strokes in the past and this has left you with brain processing issues. Complicated thought process is probably not possible for you. And you also have memory loss. You also shared with me that Dr. Kingston, your neurologist, says that you may have ADD from your strokes. You shared with me that Dr. Kingston seems to have "disappeared" and that his office may be closed. But I called his office today. He is in fact still in private practice. Still open. Again, I think that you may have a processing issue with your brain and you need help in your life. We do not feel that it is safe for you to keep on using your insulin pump. Plan of Treatment: Prescriptions that have been sent to your pharmacy include: 1. Glargine insulin (long-acting) to be taken twice a day in the morning and at night. Currently you are being discharged on 20 units twice a day. If your morning glucose continues to be low, reduce your evening glargine to 10 units. 2. Short acting insulin to be taken before each meal which will be 5 units. 3. If you can remember to do so, check your glucose before each meal and do a sliding scale in addition to the 5 units before each meal. Please see your primary care provider in follow-up. Unfortunately the diabetic nurse educator in that office is on vacation so she will not be back for a couple of weeks. Please see Dr. Kingston in follow-up. You need to get opinion about cognitive evaluation. You have a true disability and need more help for. His office number is [phone]. He sees patients in the [facility] but may be able to see you another location such as [place] or [place]. He is part of [facility]. Care Goals: To get your glucose under control so you do not go into DKA again. Follow-Up Care: [facility] - Diabetes Ed No Smoking: If you smoke, Please STOP! Call for help. Follow-up with: Zackary Dean MD [Provider Admit Priv/Credential] - Froy Kingston MD [Physician No Access] - Sunitha Cornejo, RNC, BSN, CDE, M.Ed [Registered Nurse] -
[2022-04-20] MEDS: DONEPEZIL 5 MG TABLET PO SCH (10:48)
[2022-04-20] MEDS: DULoxetine 30 MG CAPSULE PO SCH (10:52)
[2022-04-20] MEDS: TAMSULOSIN 0.4 MG CAPSULE PO SCH (10:52)
[2022-04-20] MEDS: FAMOTIDINE 20 MG TABLET PO SCH (10:53)
[2022-04-20 11:44] VITALS: BP 162/95
--- NOTE | 2022-04-20 19:07 | DISCHARGE SUMMARY ---
Discharge Summary Admit Date: 04/17/22 Discharge Date: 04/20/22 Discharging Provider: Lolly Sales Primary Care Provider: Zackary Dean Code Status: Attempt Resuscitation Condition at Discharge: Fair Discharge Disposition: 01 Home, Self Care - DIAGNOSES Discharge Diagnoses with Status of Each Condition: 1. DKA type I 2. Noncompliance with medication 3. Viral URI 4. Chronic back pain 5. Vascular dementia 6. History of stroke - HPI History of Present Illness: 56-year-old type I diabetic who was hospitalized in [facility] at a [facility] facility recently for DKA. That DKA was precipitated by an RSV infection. He was discharged on Lantus and lispro. He took that for short time and then resumed his usual insulin management which is a pump. He is usually followed by Dr. Dean in our clinics.When he was seen in December of last year, he told Dr. Dean then he needed a new pump. It was delivering insulin inconsistently. It was not sinking up with his phone terrence very well. And he could not get a hold of the material flow analyst. Dr. Dean sent him a request to please be seen in February 2022. He then call the clinic in January 2022 saying that he lost consciousness. His blood sugars were as high as 400 when he was seen in the clinic. He was seen by Adelita Cornejo, the diabetic nurse educator on February 14. She made some changes on his pump and he was supposed to been seen in 2 weeks. He told them that he was vomiting blood on February 19 and went to the emergency room. He then also call them on March 05 stating that he was in [place], and that he did not have enough Humalog insulin and they needed to send an emergency refill to the [facility] in [place]. From there he was admitted in DKA to [place]. He then called the office on April 09 stating he needed new prescription for insulin pump supplies. He said he could not remember when he last got them. He needed a Dexcom sensor, transmitter, brake reliner, infusion set, reservoir and needles. The patient missed his lab follow-up April 12. He then presented to our emergency room 04/16 with nausea, vomiting, abdominal pain. He was again in DKA but early stages. He was treated with IV fluids, i nsulin, and managed to close the gap. They fed him. He was anxious to go home. He resumed his pump. Ate some chili last night. And then awoke again in the offset label rewinder hours of today with recurrence of nausea, vomiting, abdominal pain. In the emergency room his glucose is 502. His anion gap is back up to 20. Creatinine is 1.4. pH 7.27, venous blood gas. Urinalysis has ketonuria but no infection. Small ketones on toxicology screen. As such the emergency room provider is asking us to admit the patient for DKA. We made sure he is not having an [place], no UTI, no pneumonia. He is positive for adenovirus and another virus. Not COVID-19. He may have another viral infection that tipped him off. We also discussed his pump. I queried whether his pump was working. According to the ER doctor the patient states that it is working and he is receiving his insulin. However, when I speak to the patient in the afternoon. The patient says that there is something wrong with his insulin. Even if the pump says it is going into his body, he says that "the insulin must be bad". But he cannot explain to me why he knows it is "bad". - Past Medical History Cardiovascular: reports: Hypertension, High cholesterol, Arrhythmia, Other Respiratory: reports: Pneumonia Neuro: reports: Dementia, CVA (neuro suspects lacunar infarcts), Fainting (3 episodes 2020. TTE and NM stress nml. reveal loop [id number] neg. ), Other Endocrine/Autoimmune: reports: Type 1 diabetes, HyPOthyroidism GI: reports: GERD, Ulcers, Colon polyps : reports: Other (erectile dysfunction) HEENT: reports: Other (facial fractures from trauma) Psych: reports: Depression, Anxiety, ADD/ADHD Musculoskeletal: reports: Chronic back pain (from vertebral fx), Other (trigger finger) Derm: reports: None MRSA Hx?: No - Past Surgical History General: reports: Colonoscopy (02/2014 w 6 polyps) Ortho: reports: Carpal Tunnel surgery, Other (cyst on neck near spinal cord removed) Cardiovascular: reports: Other (implantable loop recorder summer 2020) HEENT: reports: Other (tonsillar abcess) - CONSULTS | PROCEDURES Procedures: Chest x-ray without acute cardiopulmonary abnormality. - HOSPITAL COURSE Hospital Course: Patient was placed in the ICU for an insulin drip and DKA protocol. He was finally able to be controlled and we were getting ready to switch him to his pump. For a day or so he was telling us that the insulin in his pump was "bad". When he finally opened up the pump he realized there is no insulin in the vials that he had. The reservoirs were empty. In reviewing his office charts he has no shows, erratic glucose control, erratic use of his supplies, and a history of strokes with memory loss. When I discussed this with the the said that he has been gradually getting worse with regards to memory loss. Emotional lability. Outbursts of anger. The neurologist says that he may have developed ADD from his previous strokes. He then told me that the neurologist was no longer in the area. That his office was closed. That he had "disappeared". But I called Dr. Kingston's office and the answering service said that Dr. Kingston was still in business. The patient exhibited anger toward his saying that "she sleeps all day and stays in bed all day long and she is lazy". He felt that she was not going to help him. He felt that as the man of the house, he should have the right to tell her to get up and clean house, cook, and take care of him. By her refusal to get out of bed, that must mean "she wanted to be the man of the house". did show up the day of discharge and spent quite a bit of time with nursing getting instruction. She seemed agreeable and motivated to help him. Although he was positive for viral PCR, he had no symptoms during admission. Mainly we noted memory loss, and emotional lability. At discharge temperature was 36.2. Respirations 83. Blood pressure 162/95. I did try and start him on lisinopril but he said that lisinopril gave him insulin sensitivity and made his glucose go low. So he refused to take it. I convinced him to take some losartan to control his blood pressure and explained that it helps him with nephropathy and reduces his risk of stroke and heart disease. Neck was supple without bruits. Lungs were clear. Regular rate and rhythm. Abdomen benign. He was alert and oriented to person place and time. But anything more than simple 1 sentence instructions would overwhelm him and he would get frustrated. Greater than 30 minutes was spent coordinating discharge instructions and this difficult to control diabetes in this gentleman. I did explain to him what I honestly thought may be happening. Memory loss may be getting the better of him. He needed to try and sit with the material flow analyst again and please try to follow her instructions. I also asked him to follow-up with Dr. Kingston. I also asked him to start planning for the future in that his memory loss may get significant enough that he needs to appoint a power of corporate associate attorney for finances and healthcare. Lantus and lispro were called into [facility]. He did asked me to call in [employer] for his insulin pump. But I told him that probably was not a good idea since his pump was not working accurately either because of a battery problem or reservoir problem. He had already been giving himself Lantus and lispro before discharge. And I asked him to take to the regimen that we were using in the hospital to keep him out of DKA. Emphasis was placed on his follow-through with the material flow analyst over and over again. I also asked the to start going to his diabetic education classes with him. '' - ALLERGIES Allergies/Adverse Reactions: Allergies Allergy/AdvReac Type Severity Reaction Status Date / Time omeprazole Allergy Intermediate Nausea Verified 04/17/22 06:09 insulin aspart Allergy Unknown Verified 04/17/22 06:09 [From Novolog U-100 Insulin aspart] insulin aspart protamine Allergy Unknown Verified 04/17/22 06:09 human [From Novolog Mix 70-30 U-100 Insuln] codeine AdvReac Severe Dizziness Verified 04/17/22 06:09 doxycycline AdvReac Intermediate Dizziness Verified 04/17/22 06:09 tarragon AdvReac Nausea Uncoded 04/19/22 09:16 - MEDICATIONS Home Medications: Ambulatory Orders Medication Instructions Recorded Confirmed Atorvastatin Calcium [Lipitor] 80 mg PO QPM 05/30/21 04/17/22 Donepezil HCl [Aricept] 10 mg PO DAILY 05/30/21 04/17/22 Insulin Lispro [Humalog] 70 units SQ DAILY 05/30/21 04/17/22 Mirtazapine 45 mg PO QPM 05/30/21 04/17/22 EPINEPHrine [Epinephrine] 0.3 mg IJ ONCE PRN #1 dis.syr 10/02/21 04/17/22 DULoxetine [Cymbalta] 30 mg PO DAILY 01/26/22 04/17/22 Tamsulosin [Flomax] 0.4 mg PO DAILY 01/26/22 04/17/22 Albuterol 2.5 mg INH Q4H PRN #30 ml 04/16/22 04/17/22 Albuterol Sulf [Ventolin Hfa 1 - 2 puffs INH Q4HR PRN #1 each 04/16/22 04/17/22 Inhaler] Ondansetron Odt [Zofran Odt] 4 mg TL Q6H PRN #10 tablet 04/16/22 04/17/22 Insulin Glargine-Yfgn [Semglee] 20 unit SUBQ BID 30 Days #8 ea 04/20/22 Insulin Lispro [Humalog Kwikpen 5 unit SUBQ TIDWM #3 ml 04/20/22 U-100] Losartan [Cozaar] 50 mg PO DAILY #30 tab 04/20/22 - LABS Result Diagrams: 04/17/22 06:39 04/20/22 04:26
== END 2022-04-20 11:49 | disposition home or self-care (01) | DRG 639 ==
LOC: EDUNIT# → ED 05:56 → ICU 14:11
PROVIDERS: ADMIT Specialist; ATTEND Specialist
DX: E10.10 Type 1 diabetes mellitus with ketoacidosis without coma (principal); R07.9 Chest pain, unspecified; Z20.822 Contact with and (suspected) exposure to COVID-19; E10.11 Type 1 diabetes mellitus with ketoacidosis with coma; Z96.41 Presence of insulin pump (external) (internal); B34.0 Adenovirus infection, unspecified; B34.2 Coronavirus infection, unspecified; I10 Essential (primary) hypertension; E78.00 Pure hypercholesterolemia, unspecified; E03.9 Hypothyroidism, unspecified; F32.A Depression, unspecified; F41.9 Anxiety disorder, unspecified; G89.29 Other chronic pain; K21.9 Gastro-esophageal reflux disease without esophagitis; T38.3X6A Underdosing of insulin and oral hypoglycemic [antidiabetic] drugs, initial encounter; F01.50 Vascular dementia, unspecified severity, without behavioral disturbance, psychotic disturbance, mood disturbance, and anxiety; J06.9 Acute upper respiratory infection, unspecified; M54.50 Low back pain, unspecified; Z87.891 Personal history of nicotine dependence; Z79.4 Long term (current) use of insulin; I69.311 Memory deficit following cerebral infarction; I69.310 Attention and concentration deficit following cerebral infarction; Z91.138 Patient's unintentional underdosing of medication regimen for other reason
CPT/HCPCS: 36415; 71045; 80048; 80053; 80306; 81003; 82009; 82330; 82803; 83690; 83735; 84100; 84132; 84484; 85025; 87150; 87635; 93005; 96361; 96374; 96375; 99285; 99291; A9270; J1815; J2765; 81001; 82947; 86850; 86900; 86901; 86920; 87086

== ENCOUNTER 2022-05-02 11:19 | Outpatient (CLI) | payer MEDICARE | END 2022-05-02 11:20 | disposition critical access hospital (66) | LOC: EMS 11:19 | DX: E10.649 Type 1 diabetes mellitus with hypoglycemia without coma (principal); R42 Dizziness and giddiness; R25.1 Tremor, unspecified; R26.81 Unsteadiness on feet | CPT/HCPCS: A0425; A0427 ==

== ENCOUNTER 2022-05-02 12:20 | Emergency (ER) | payer MEDICARE ==
[2022-05-02 12:29] VITALS: BP 153/91
[2022-05-02] MEDS ORDERED: SODIUM CHLORIDE 0.9% 1,000 ML IV STA (12:29)
--- NOTE | 2022-05-02 12:31 | ED Physician Documentation ---
History of Present Illness - Stated complaint Stated Complaint: HYPOGLYCEMIA - Chief complaint Chief Complaint: General - History obtained from History obtained from: Patient, EMS - Additonal information Additional information: 56-year-old gentleman with diabetes on insulin. Recently transition from an insulin pump to injecting long-acting insulin and then sliding scale Humalog. Also transition from lisinopril to Lantus about a week ago. He checked his blood sugar this morning and it was 338 so he took 13 units of Humalog. Subsequently he started to feel shaky and weak and rechecked his blood sugar and was 38. Took some oral glucose and 911 was summoned. D10 was administered. Now he has severe epigastric pain that started on the way here as well as nausea which he declines pain or nausea medication for. PD PAST MEDICAL HISTORY - Past Medical History Cardiovascular: Hypertension, High cholesterol, Arrhythmia, Other Respiratory: Pneumonia Neuro: Dementia, CVA (neuro suspects lacunar infarcts), Fainting (3 episodes 2020. TTE and NM stress nml. reveal loop [id number] neg. ), Other Endocrine/Autoimmune: Type 1 diabetes, HyPOthyroidism GI: GERD, Ulcers, Colon polyps : Other (erectile dysfunction) HEENT: Other (facial fractures from trauma) Psych: Depression, Anxiety, ADD/ADHD Musculoskeletal: Chronic back pain (from vertebral fx), Other (trigger finger) Derm: None - Past Surgical History Past Surgical History: Yes General: Colonoscopy (02/2014 w 6 polyps) Ortho: Carpal Tunnel surgery, Other (cyst on neck near spinal cord removed) Cardiovascular: Other (implantable loop recorder summer 2020) HEENT: Other (tonsillar abcess) - Present Medications Home Medications: Ambulatory Orders Medication Instructions Recorded Confirmed Atorvastatin Calcium [Lipitor] 80 mg PO QPM 05/30/21 05/02/22 Donepezil HCl [Aricept] 10 mg PO DAILY 05/30/21 05/02/22 Insulin Lispro [Humalog] 70 units SQ DAILY 05/30/21 05/02/22 Mirtazapine 45 mg PO QPM 05/30/21 05/02/22 EPINEPHrine [Epinephrine] 0.3 mg IJ ONCE PRN #1 dis.syr 10/02/21 05/02/22 DULoxetine [Cymbalta] 30 mg PO DAILY 01/26/22 05/02/22 Tamsulosin [Flomax] 0.4 mg PO DAILY 01/26/22 05/02/22 Albuterol 2.5 mg INH Q4H PRN #30 ml 04/16/22 05/02/22 Albuterol Sulf [Ventolin Hfa 1 - 2 puffs INH Q4HR PRN #1 each 04/16/22 05/02/22 Inhaler] Ondansetron Odt [Zofran Odt] 4 mg TL Q6H PRN #10 tablet 04/16/22 05/02/22 Insulin Glargine-Yfgn [Semglee] 20 unit SUBQ BID 30 Days #8 ea 04/20/22 05/02/22 Insulin Lispro [Humalog Kwikpen 5 unit SUBQ TIDWM #3 ml 04/20/22 05/02/22 U-100] Losartan [Cozaar] 50 mg PO DAILY #30 tab 04/20/22 05/02/22 Metoclopramide [Reglan] 10 mg PO Q6H PRN #20 tablet 05/02/22 - Allergies Allergies/Adverse Reactions: Allergies Allergy/AdvReac Type Severity Reaction Status Date / Time omeprazole Allergy Intermediate Nausea Verified 05/02/22 12:44 insulin aspart Allergy Unknown Verified 05/02/22 12:44 [From Novolog U-100 Insulin aspart] insulin aspart protamine Allergy Unknown Verified 05/02/22 12:44 human [From Novolog Mix 70-30 U-100 Insuln] codeine AdvReac Severe Dizziness Verified 05/02/22 12:44 doxycycline AdvReac Intermediate Dizziness Verified 05/02/22 12:44 tarragon AdvReac Nausea Uncoded 04/19/22 09:16 - Social History Does the pt smoke?: No Smoking Status: Former smoker Does the pt drink ETOH?: No Does the pt have substance abuse?: Yes - Immunizations Immunizations are current?: Yes - POLST Patient has POLST: No POLST Status: Full Code PD ED PE NORMAL - Vitals Vital signs reviewed: Yes - General General: Alert and oriented X 3, Other (Vomiting) - HEENT HEENT: PERRL, EOMI - Neck Neck: Supple, no meningeal sign, No bony TTP - Respiratory Respiratory: No respiratory distress, Clear bilaterally - Abdomen Abdomen: Soft, Non tender - Derm Derm: Normal color, Warm and dry - Extremities Extremities: No edema, No calf tenderness / cord - Neuro Neuro: Alert and oriented X 3, Normal speech - Psych Psych: Normal mood, Normal affect Results - Vitals Vitals: Vital Signs - 24 hr 05/02/22 05/02/22 12:24 15:27 Temperature 36.6 C Heart Rate 60 67 Respiratory 22 Rate Blood Pressure 153/91 H O2 Saturation 100 Oxygen O2 Source [] Room air O2 Source Room air - EKG (time done) 1229 Rate: Rate (enter#) (55) Rhythm: NSR [place]: Normal Intervals: Prolonged [place] (203msec) QRS: Normal Ischemia: Normal ST segments. No: ST elevation c/w ischemia, ST depression, T wave inversion - Labs Labs: Laboratory Tests 05/02/22 05/02/22 05/02/22 12:43 12:43 12:43 WBC 5.0 RBC 5.10 Hgb 14.8 Hct 44.6 MCV 87.5 MCH 29.0 MCHC 33.2 RDW 12.9 Plt Count 254 MPV 10.5 Neut # (Auto) 3.3 Lymph # (Auto) 1.1 L [place] # (Auto) 0.5 Eos # (Auto) 0.1 Baso # (Auto) 0.1 Absolute Nucleated RBC 0.00 Nucleated RBC % 0.0 VBG pH VBG pCO2 VBG pO2 VBG HCO3 VBG Total CO2 VBG O2 Saturation VBG Base Excess Sodium 142 Potassium 4.1 Chloride 106 Carbon Dioxide 25 Anion Gap 11.0 BUN 20 Creatinine 1.0 Estimated GFR (MDRD) 77 L Glucose 73 Calcium 9.8 Phosphorus 2.1 L Magnesium 2.2 Total Bilirubin 0.6 AST 17 ALT 16 Alkaline Phosphatase 67 Troponin I High Sens < 2.3 L Total Protein 7.3 Albumin 4.0 Globulin 3.3 Albumin/Globulin Ratio 1.2 Serum Ketones NEGATIVE 05/02/22 12:43 WBC RBC Hgb Hct MCV MCH MCHC RDW Plt Count MPV Neut # (Auto) Lymph # (Auto) [place] # (Auto) Eos # (Auto) Baso # (Auto) Absolute Nucleated RBC Nucleated RBC % VBG pH 7.441 H VBG pCO2 42.2 VBG pO2 24.3 L VBG HCO3 28.1 H VBG Total CO2 29.4 H VBG O2 Saturation 50.0 L VBG Base Excess 3.5 H Sodium Potassium Chloride Carbon Dioxide Anion Gap BUN Creatinine Estimated GFR (MDRD) Glucose Calcium Phosphorus Magnesium Total Bilirubin AST ALT Alkaline Phosphatase Troponin I High Sens Total Protein Albumin Globulin Albumin/Globulin Ratio Serum Ketones - Rads (name of study) CT a/p Radiology: Final report received, EMP read indepedently PD Medical Decision Making - ED course ED course: CBC reviewed and normal. Venous blood gas reviewed showing no evidence of DKA. CMP reviewed showing mild hypophosphatemia with otherwise normal indices and no evidence of DKA. Serum ketones are negative. Troponin negative/normal. On recheck at 1:35 PM his epigastric pain and nausea have resolved spontaneously. We will observe him for a few more hours to screen for recurrent hypoglycemia. CT of the abdomen pelvis showing gastric distention. Note made that this has been seen on prior studies with out evidence of gastric outlet obstruction on endoscopy. Presume gastroparesis. Small bowel inflammation. He was observed for several hours without recurrence of hypoglycemia. We discussed potential gastroparesis and he would like to trial Reglan. He plans to follow-up with the music educator. Departure - Departure Disposition: 01 Home, Self Care Clinical Impression: Hypoglycemia, Upper abdominal pain Type 1 diabetes mellitus Qualifiers: Diabetes mellitus complication status: with hypoglycemia Diabetes mellitus complication detail: without coma Qualified Code(s): E10.649 - Type 1 diabetes mellitus with hypoglycemia without coma Condition: Stable Record reviewed to determine appropriate education?: Yes Instructions: ED Diabetes Hypoglycemia Insulin React Prescriptions: Metoclopramide [Reglan] 10 mg PO Q6H PRN #20 tablet PRN Reason: nausea or headache Comments: As discussed, I think the recurrent abdominal pain and vomiting may be related to diabetic gastroparesis. We are trialing some Reglan for that. You should follow-up with the music educator as you planned. Continue current glycemic control. Return for new or worsening symptoms.
[2022-05-02 12:48] LABS: BASOPHILS # (AUTO) 0.1 10^3/uL (0.0-0.1); EOSINOPHILS # (AUTO) 0.1 10^3/uL (0.0-0.7); EOSINOPHILS % (AUTO) 1.8 %; HCT - HEMATOCRIT 44.6 % (42.0-52.0); HGB - HEMOGLOBIN 14.8 g/dL (14.0-18.0); LYMPHOCYTES # (AUTO) 1.1 10^3/uL (1.5-3.5); LYMPHOCYTES % (AUTO) 22.2 %; MEAN CORPUSCULAR HGB CONC 33.2 g/dL (32.0-36.0); MEAN CORPUSCULAR VOLUME 87.5 fL (80.0-94.0); MEAN PLATELET VOLUME 10.5 fL (7.4-11.4); MONOCYTES # (AUTO) 0.5 10^3/uL (0.0-1.0); MONOCYTES % (AUTO) 8.9 %; NEUTROPHILS # (AUTO) 3.3 10^3/uL (1.5-6.6); NEUTROPHILS % (AUTO) 65.7 %; PLT - PLATELET COUNT 254 10^3/uL (130-450); RED CELL DISTRIBUTION WIDTH 12.9 % (12.0-15.0)
[2022-05-02 12:54] LABS: VBG HCO3 28.1 mmol/L (23-28); VBG PCO2 42.2 mmHg (41-51); VBG PH 7.441 (7.31-7.41); VBG PO2 24.3 mmHg (25-47); VBG TOTAL CO2 29.4 mmol/L (24-29)
[2022-05-02 12:55] LABS: VBG BASE EXCESS 3.5 mmol/L (-2 - +2)
[2022-05-02 13:06] LABS: KETONES, SERUM (ACETEST) NEGATIVE (NEGATIVE)
[2022-05-02 13:13] LABS: ALBUMIN/GLOBULIN RATIO 1.2 (1.0-2.2); ALKALINE PHOSPHATASE 67 IU/L (42-121); ALT ALANINE AMINOTRANSFERASE 16 IU/L (10-60); AST ASPARTATE AMINOTRANSFERASE 17 IU/L (10-42); BILIRUBIN,TOTAL 0.6 mg/dL (0.2-1.0); BUN - BLOOD UREA NITROGEN 20 mg/dL (6-20); CALCIUM 9.8 mg/dL (8.5-10.3); CARBON DIOXIDE - CO2 25 mmol/L (21-32); CHLORIDE 106 mmol/L (101-111); GFR - MDRD 77 (>89); GLUCOSE 73 mg/dL (70-100); MAGNESIUM 2.2 mg/dL (1.7-2.8); PHOSPHORUS 2.1 mg/dL (2.5-4.6); POTASSIUM 4.1 mmol/L (3.5-5.0); SODIUM 142 mmol/L (135-145); TOTAL PROTEIN 7.3 g/dL (6.7-8.2)
--- NOTE | 2022-05-02 13:25 | XRAY Report ---
PROCEDURE: Chest 1 View X-Ray INDICATIONS: cp TECHNIQUE: One view of the chest was acquired. COMPARISON: Plain film of the chest dated 05/15/2022 FINDINGS: Surgical changes and devices: None. Lungs and pleura: No pleural effusions or pneumothorax. Lungs are clear. Mediastinum: Mediastinal contours appear normal. Heart size is normal. Bones and chest wall: No suspicious bony lesions. Overlying soft tissues appear unremarkable. IMPRESSION: No acute process. Reviewed by: Veronica Wright MD on 05/02/2022 1:24 PM PST Approved by: Veronica Wright MD on 05/02/2022 1:24 PM [facility] Station ID: [id number]
[2022-05-02] MEDS ORDERED: iohexoL-300 100 ML VIAL ONE (13:54)
--- NOTE | 2022-05-02 14:23 | CT Report ---
PROCEDURE: ABDOMEN/PELVIS W INDICATIONS: IV only, upper abd pain CONTRAST: 100ml Omnipaque 300 TECHNIQUE: After the administration of IV contrast, 5 mm thick sections acquired from the diaphragms to the symp hysis. 5 mm thick coronal and sagittal reformats were acquired. For radiation dose reduction, the f ollowing was used: automated exposure control, adjustment of mA and/or kV according to patient size. COMPARISON: CT dated 02/19/2022 FINDINGS: Image quality: Excellent. ABDOMEN: Lung bases: Lung bases are clear. Heart size is normal. Solid organs: Liver and spleen are normal in size and enhancement. Gallbladder is within normal watson its Biliary system is non dilated. Pancreas enhances normally. No adrenal nodules. Kidneys demons trate normal size and enhancement, without hydronephrosis. Peritoneum and bowel: There is moderate distention of the gastric lumen. There is moderate thickening of multiple proximal/mid small bowel loops. Normal appendix. Colon is nondistended. No free fluid or air. Nodes and vessels: No retroperitoneal or mesenteric adenopathy by size criteria. Aorta and inferior vena cava are normal in size. Miscellaneous: No ventral hernias. PELVIS: Genitourinary: Bladder wall thickness is normal. Miscellaneous: No inguinal hernias or adenopathy. Bones: No suspicious bony lesions. Moderate chronic L1 compression fracture. Mild chronic L2 and L5 compression fractures. No acute vertebral body compression fractures. IMPRESSION: 1. Moderate gastric distention, possibly indicating duodenal stricture. Endoscopy is recommended for further assessment. 2. Normal appendix. 3. Small bowel thickening, suggestive of infection, inflammation, or ischemia. Reviewed by: Veronica Wright MD on 05/02/2022 2:22 PM PST Approved by: Veronica Wright MD on 05/02/2022 2:22 PM PST Station ID: [id number]
[2022-05-02] MEDS ORDERED: iohexoL-300 100 ML VIAL IVP ONE (14:48)
== END 2022-05-02 15:44 | disposition home or self-care (01) ==
LOC: EDUNIT# → ED 12:20
DX: E10.649 Type 1 diabetes mellitus with hypoglycemia without coma (principal); I10 Essential (primary) hypertension; R10.10 Upper abdominal pain, unspecified; Z79.4 Long term (current) use of insulin
CPT/HCPCS: 36415; 71045; 74177; 80053; 82009; 82803; 83735; 84100; 84484; 85025; 93005; 99284; Q9967

== ENCOUNTER 2022-05-16 18:27 | Emergency (ER) | payer MEDICARE, OTHER ==
[2022-05-16] MEDS ORDERED: SODIUM CHLORIDE 0.9% 1,000 ML IV STA (18:36)
--- NOTE | 2022-05-16 18:53 | ED Physician Documentation ---
History of Present Illness - Stated complaint Stated Complaint: CHEST PX - Additonal information Additional information: History provided by patient. Arin historian. Ancillary history also obtained from EMS. 56-year-old male was brought to the emergency department by EMS for evaluation of hypoglycemia as well as chest pain. Patient was reportedly at the [place] clinic following up a recent ED visit for hypoglycemia. While there they noted that he appeared to be shivering and acting abnormally. They checked a blood sugar and found that it was 46. They gave him oral glucose solution and found that his blood sugars did not rise therefore they summoned EMS. EMS gave the patient a total of 25 g of IV dextrose in route to the emergency department and just prior to arrival his blood glucose was 217. They stated the patient began to complain of chest pain in route to the ER. He reported that it was pleuritic. The patient states to me that he has been having a cough since January. He states that he last ate today about noon. He recently transitioned from an insu alisha pump to injecting both short and long-acting insulin. He states he has had difficulty with blood glucose control at home. Though typically his blood sugars are in the 140s fasting to the mid 200s in the evenings. He typically takes 20 units of Lantus twice daily as well as short acting insulin with meals. He took 10 units with his noontime meal today. His sugars prior to that were 293. The patient reports to me that he believes the losartan which she is using to control his blood pressure is making him very sensitive to the insulin. It was recently adjusted from 50 mg daily to 25 mg daily. He states that when he was on lisinopril in the past it also caused hypoglycemia. Review of Systems Constitutional: reports: Chills, Myalgias, Fatigue. denies: Fever Cardiac: reports: Chest pain / pressure. denies: Palpitations Respiratory: reports: Cough. denies: Dyspnea GI: denies: Abdominal Pain, Abdominal Swelling, Nausea, Vomiting : reports: Reviewed and negative Skin: reports: Reviewed and negative Musculoskeletal: reports: Reviewed and negative PD PAST MEDICAL HISTORY - Past Medical History Cardiovascular: Hypertension, High cholesterol, Arrhythmia, Other Respiratory: Pneumonia Neuro: Dementia, CVA (neuro suspects lacunar infarcts), Fainting (3 episodes 2020. TTE and NM stress nml. reveal loop [id number] neg. ), Other Endocrine/Autoimmune: Type 1 diabetes, HyPOthyroidism GI: GERD, Ulcers, Colon polyps : Other (erectile dysfunction) HEENT: Other (facial fractures from trauma) Psych: Depression, Anxiety, ADD/ADHD Musculoskeletal: Chronic back pain (from vertebral fx), Other (trigger finger) Derm: None - Past Surgical History Past Surgical History: Yes General: Colonoscopy (02/2014 w 6 polyps) Ortho: Carpal Tunnel surgery, Other (cyst on neck near spinal cord removed) Cardiovascular: Other (implantable loop recorder summer 2020) HEENT: Other (tonsillar abcess) - Present Medications Home Medications: Ambulatory Orders Medication Instructions Recorded Confirmed Atorvastatin Calcium [Lipitor] 80 mg PO QPM 05/30/21 05/02/22 Donepezil HCl [Aricept] 10 mg PO DAILY 05/30/21 05/02/22 Insulin Lispro [Humalog] 70 units SQ DAILY 05/30/21 05/02/22 Mirtazapine 45 mg PO QPM 05/30/21 05/02/22 EPINEPHrine [Epinephrine] 0.3 mg IJ ONCE PRN #1 dis.syr 10/02/21 05/02/22 DULoxetine [Cymbalta] 30 mg PO DAILY 01/26/22 05/02/22 Tamsulosin [Flomax] 0.4 mg PO DAILY 01/26/22 05/02/22 Albuterol 2.5 mg INH Q4H PRN #30 ml 04/16/22 05/02/22 Albuterol Sulf [Ventolin Hfa 1 - 2 puffs INH Q4HR PRN #1 each 04/16/22 05/02/22 Inhaler] Ondansetron Odt [Zofran Odt] 4 mg TL Q6H PRN #10 tablet 04/16/22 05/02/22 Insulin Glargine-Yfgn [Semglee] 20 unit SUBQ BID 30 Days #8 ea 04/20/22 05/02/22 Insulin Lispro [Humalog Kwikpen 5 unit SUBQ TIDWM #3 ml 04/20/22 05/02/22 U-100] Losartan [Cozaar] 50 mg PO DAILY #30 tab 04/20/22 05/02/22 Metoclopramide [Reglan] 10 mg PO Q6H PRN #20 tablet 05/02/22 - Allergies Allergies/Adverse Reactions: Allergies Allergy/AdvReac Type Severity Reaction Status Date / Time omeprazole Allergy Intermediate Nausea Verified 05/16/22 18:47 insulin aspart Allergy Unknown Verified 05/16/22 18:47 [From Novolog U-100 Insulin aspart] insulin aspart protamine Allergy Unknown Verified 05/16/22 18:47 human [From Novolog Mix 70-30 U-100 Insuln] codeine AdvReac Severe Dizziness Verified 05/16/22 18:47 doxycycline AdvReac Intermediate Dizziness Verified 05/16/22 18:47 tarragon AdvReac Nausea Uncoded 05/16/22 18:47 - Social History Does the pt smoke?: No Smoking Status: Former smoker Does the pt drink ETOH?: No Does the pt have substance abuse?: Yes - Immunizations Immunizations are current?: Yes - POLST Patient has POLST: No POLST Status: Full Code PD ED PE NORMAL - General General: Alert and oriented X 3. 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 Eye Opening: Spontaneous Motor: Obeys Commands Verbal: Oriented GCS Score: 15 Results - Vitals Vitals: Vital Signs - 24 hr 05/16/22 05/16/22 05/16/22 18:42 18:47 19:17 Temperature 34.7 C L Heart Rate 50 L 48 L 54 L Respiratory 20 15 13 Rate Blood Pressure 148/101 H 148/107 H 126/69 O2 Saturation 100 99 95 05/16/22 05/16/22 20:00 21:12 Temperature 36.1 C L Heart Rate 65 69 Respiratory 14 18 Rate Blood Pressure 121/81 H 146/77 H O2 Saturation 99 96 Oxygen O2 Source [Without Activity] Room air O2 Source Room air - EKG (time done) 1838 Rate: Rate (enter#) (49) Rhythm: Sinus bradycardia Paicines: Normal Intervals: Normal [place]. No: Prolonged QT QRS: Normal Ischemia: Normal ST segments Compare to prior EKG: Unchanged from prior EKG Computer interpretation: Agree with computer - Labs Labs: Laboratory Tests 05/16/22 05/16/22 05/16/22 18:57 18:57 18:57 WBC 9.3 RBC 4.81 Hgb 13.8 L Hct 41.5 L MCV 86.3 MCH 28.7 MCHC 33.3 RDW 12.8 Plt Count 213 MPV 11.6 H Neut # (Auto) 7.3 H Lymph # (Auto) 1.2 L [place] # (Auto) 0.6 Eos # (Auto) 0.1 Baso # (Auto) 0.1 Absolute Nucleated RBC 0.00 Nucleated RBC % 0.0 VBG pH VBG pCO2 VBG pO2 VBG HCO3 VBG Total CO2 VBG O2 Saturation VBG Base Excess Sodium 134 L Potassium 3.5 Chloride 98 L Carbon Dioxide 25 Anion Gap 11.0 BUN 16 Creatinine 1.0 Estimated GFR (MDRD) 77 L Glucose 238 H Lactic Acid Calcium 9.2 Total Bilirubin 0.8 AST 16 ALT 15 Alkaline Phosphatase 62 Troponin I High Sens < 2.3 L Total Protein 6.4 L Albumin 3.6 Globulin 2.8 Albumin/Globulin Ratio 1.3 Urine Color Urine Clarity Urine pH Ur Specific Adel Urine Protein Urine Glucose (UA) Urine Ketones Urine Occult Blood Urine Nitrite Urine Bilirubin Urine Urobilinogen Ur Leukocyte Esterase Urine RBC Urine WBC Ur Squamous Epith Cells Urine Bacteria Urine Culture Comments Nasal Adenovirus (PCR) Nasal B. parapertussis DNA (PCR) Nasal Coronavir 229E PCR Nasal Coronavir HKU1 PCR Nasal Coronavir NL63 PCR Nasal Coronavir OC43 PCR Nasal Enterovir/Rhinovir PCR Nasal Influenza B PCR Nasal Influenza A PCR Nasal Parainfluen 1 PCR Nasal Parainfluen 2 PCR Nasal Parainfluen 3 PCR Nasal Parainfluen 4 PCR Nasal RSV (PCR) Nasal B.pertussis DNA PCR Nasal C.pneumoniae (PCR) Severo Human Metapneumo PCR Nasal M.pneumoniae (PCR) Nasal SARS-CoV-2 (PCR) Serum Ketones NEGATIVE 05/16/22 05/16/22 05/16/22 18:57 18:57 19:20 WBC RBC Hgb Hct MCV MCH MCHC RDW Plt Count MPV Neut # (Auto) Lymph # (Auto) [place] # (Auto) Eos # (Auto) Baso # (Auto) Absolute Nucleated RBC Nucleated RBC % VBG pH 7.347 VBG pCO2 46.1 VBG pO2 37.9 VBG HCO3 24.7 VBG Total CO2 26.1 VBG O2 Saturation 70.5 VBG Base Excess -1.3 Sodium Potassium Chloride Carbon Dioxide Anion Gap BUN Creatinine Estimated GFR (MDRD) Glucose Lactic Acid 2.4 H Calcium Total Bilirubin AST ALT Alkaline Phosphatase Troponin I High Sens Total Protein Albumin Globulin Albumin/Globulin Ratio Urine Color Urine Clarity Urine pH Ur Specific Adel Urine Protein Urine Glucose (UA) Urine Ketones Urine Occult Blood Urine Nitrite Urine Bilirubin Urine Urobilinogen Ur Leukocyte Esterase Urine RBC Urine WBC Ur Squamous Epith Cells Urine Bacteria Urine Culture Comments Nasal Adenovirus (PCR) NOT DETECTED Nasal B. parapertussis DNA (PCR) NOT DETECTED Nasal Coronavir 229E PCR NOT DETECTED Nasal Coronavir HKU1 PCR NOT DETECTED Nasal Coronavir NL63 PCR NOT DETECTED Nasal Coronavir OC43 PCR NOT DETECTED Nasal Enterovir/Rhinovir PCR NOT DETECTED Nasal Influenza B PCR NOT DETECTED Nasal Influenza A PCR NOT DETECTED Nasal Parainfluen 1 PCR NOT DETECTED Nasal Parainfluen 2 PCR NOT DETECTED Nasal Parainfluen 3 PCR NOT DETECTED Nasal Parainfluen 4 PCR NOT DETECTED Nasal RSV (PCR) NOT DETECTED Nasal B.pertussis DNA PCR NOT DETECTED Nasal C.pneumoniae (PCR) NOT DETECTED Severo Human Metapneumo PCR NOT DETECTED Nasal M.pneumoniae (PCR) NOT DETECTED Nasal SARS-CoV-2 (PCR) NOT DETECTED Serum Ketones 05/16/22 05/16/22 19:50 21:03 WBC RBC Hgb Hct MCV MCH MCHC RDW Plt Count MPV Neut # (Auto) Lymph # (Auto) [place] # (Auto) Eos # (Auto) Baso # (Auto) Absolute Nucleated RBC Nucleated RBC % VBG pH VBG pCO2 VBG pO2 VBG HCO3 VBG Total CO2 VBG O2 Saturation VBG Base Excess Sodium Potassium Chloride Carbon Dioxide Anion Gap BUN Creatinine Estimated GFR (MDRD) Glucose Lactic Acid 1.6 Calcium Total Bilirubin AST ALT Alkaline Phosphatase Troponin I High Sens Total Protein Albumin Globulin Albumin/Globulin Ratio Urine Color YELLOW Urine Clarity CLEAR Urine pH 6.0 Ur Specific Adel <=1.005 Urine Protein NEGATIVE Urine Glucose (UA) >=1000 H Urine Ketones NEGATIVE Urine Occult Blood NEGATIVE Urine Nitrite NEGATIVE Urine Bilirubin NEGATIVE Urine Urobilinogen 0.2 (NORMAL) Ur Leukocyte Esterase NEGATIVE Urine RBC None Seen Urine WBC 0-3 Ur Squamous Epith Cells NONE SEEN Urine Bacteria None Seen Urine Culture Comments NOT INDICATED Nasal Adenovirus (PCR) Nasal B. parapertussis DNA (PCR) Nasal Coronavir 229E PCR Nasal Coronavir HKU1 PCR Nasal Coronavir NL63 PCR Nasal Coronavir OC43 PCR Nasal Enterovir/Rhinovir PCR Nasal Influenza B PCR Nasal Influenza A PCR Nasal Parainfluen 1 PCR Nasal Parainfluen 2 PCR Nasal Parainfluen 3 PCR Nasal Parainfluen 4 PCR Nasal RSV (PCR) Nasal B.pertussis DNA PCR Nasal C.pneumoniae (PCR) Severo Human Metapneumo PCR Nasal M.pneumoniae (PCR) Nasal SARS-CoV-2 (PCR) Serum Ketones - Rads (name of study) cxr Radiology: Final report received (No acute process) PD Medical Decision Making - ED course Complexity details: reviewed results, re-evaluated patient, considered differential, d/w patient ED course: 56-year-old male who has a history of diabetes presents to the emergency department after findings of hypoglycemia at the [place] walk-in clinic. Initial blood sugar was 46. He had taken 20 units of Lantus this morning as well as 10 units of short acting insulin with his lunch when his blood sugar was 293. EMS did give the patient 25 g of D50 on presentation to the ER his blood sugar was greater than 200. He was awake. He initially presented with rigors chills and was found to be hypothermic with a blood pressure 34.6. As such a sepsis work- up was initiated. Blood cultures are pending. Urinalysis shows no signs of infection. Respiratory PCR is negative. Chest x-ray is without findings of pneumonia. We did obtain a CBC and per my interpretation no worrisome findings such as leukocytosis. His initial electrolytes showed hyperglycemia. Negative ketones. No acidosis. History is not consistent with DKA. VBG was unremarkable. Initial lactate was 2.4. I suspect that this was likely due to the hypothermia on presentation. He did warm nicely with a warming blanket and after 2 L of fluid his lactate had improved to 1.6. As such I do not believe that the patient is septic. Patient had expressed to me concerned that his losartan is causing sensitivities to his insulin. Though I do not believe this to be true have asked him to follow closely with Dr. Dean to determine if this could be a possibility. While here in the emergency department he has been normotensive with good blood pressure control While here in the emergency department he has been observed for a number of hours and his blood sugars have remained stable without further episodes of hypoglycemia. At this time he will be discharged to follow closely with his PCP. He may benefit from referral to endocrinology given the lability of his blood sugars. Departure - Departure Disposition: 01 Home, Self Care Clinical Impression: Hypoglycemia Condition: Stable Record reviewed to determine appropriate education?: Yes Instructions: ED Diabetes Hypoglycemia Oral Agent Comments: As discussed I think it is important you follow closely with Dr. Dean to discuss discuss your recurrent hypoglycemia. You can continue to take your Lantus as already scheduled but I would adjust the short acting insulins as that seems to have caused your hypoglycemia today. I do not believe that the losartan is triggering your hypoglycemic episodes but I encourage you to discuss this with Dr. Dean. Your blood pressure was normal today.
[2022-05-16 19:04] LABS: BASOPHILS # (AUTO) 0.1 10^3/uL (0.0-0.1); BASOPHILS % (AUTO) 0.9 %; EOSINOPHILS # (AUTO) 0.1 10^3/uL (0.0-0.7); EOSINOPHILS % (AUTO) 0.6 %; HCT - HEMATOCRIT 41.5 % (42.0-52.0); HGB - HEMOGLOBIN 13.8 g/dL (14.0-18.0); LYMPHOCYTES # (AUTO) 1.2 10^3/uL (1.5-3.5); LYMPHOCYTES % (AUTO) 13.1 %; MEAN CORPUSCULAR HEMOGLOBIN 28.7 pg (27.0-31.0); MEAN CORPUSCULAR HGB CONC 33.3 g/dL (32.0-36.0); MEAN CORPUSCULAR VOLUME 86.3 fL (80.0-94.0); MEAN PLATELET VOLUME 11.6 fL (7.4-11.4); MONOCYTES # (AUTO) 0.6 10^3/uL (0.0-1.0); MONOCYTES % (AUTO) 6.5 %; NEUTROPHILS # (AUTO) 7.3 10^3/uL (1.5-6.6); NEUTROPHILS % (AUTO) 78.4 %; PLT - PLATELET COUNT 213 10^3/uL (130-450); RED BLOOD COUNT 4.81 10^6/uL (4.70-6.10); RED CELL DISTRIBUTION WIDTH 12.8 % (12.0-15.0); WHITE BLOOD COUNT 9.3 x10^3/uL (4.8-10.8)
[2022-05-16 19:08] LABS: VBG BASE EXCESS -1.3 mmol/L (-2 - +2); VBG HCO3 24.7 mmol/L (23-28); VBG OXYGEN SATURATION 70.5 % (60-80); VBG PCO2 46.1 mmHg (41-51); VBG PH 7.347 (7.31-7.41); VBG PO2 37.9 mmHg (25-47); VBG TOTAL CO2 26.1 mmol/L (24-29)
[2022-05-16 19:15] LABS: KETONES, SERUM (ACETEST) NEGATIVE (NEGATIVE)
[2022-05-16 19:22] LABS: ALBUMIN 3.6 g/dL (3.2-5.5); ALBUMIN/GLOBULIN RATIO 1.3 (1.0-2.2); ALKALINE PHOSPHATASE 62 IU/L (42-121); ALT ALANINE AMINOTRANSFERASE 15 IU/L (10-60); AST ASPARTATE AMINOTRANSFERASE 16 IU/L (10-42); BILIRUBIN,TOTAL 0.8 mg/dL (0.2-1.0); BUN - BLOOD UREA NITROGEN 16 mg/dL (6-20); CALCIUM 9.2 mg/dL (8.5-10.3); CARBON DIOXIDE - CO2 25 mmol/L (21-32); CHLORIDE 98 mmol/L (101-111); GFR - MDRD 77 (>89); GLUCOSE 238 mg/dL (70-100); POTASSIUM 3.5 mmol/L (3.5-5.0); SODIUM 134 mmol/L (135-145); TOTAL PROTEIN 6.4 g/dL (6.7-8.2)
--- NOTE | 2022-05-16 19:26 | XRAY Report ---
PROCEDURE: Chest 1 View X-Ray INDICATIONS: Sepsis TECHNIQUE: One view of the chest was acquired. COMPARISON: 05/02/2022 FINDINGS: Surgical changes and devices: None. Lungs and pleura: No pleural effusions or pneumothorax. Lungs are clear. Mediastinum: Mediastinal contours appear normal. Heart size is normal. Bones and chest wall: No suspicious bony lesions. Overlying soft tissues appear unremarkable. IMPRESSION: No acute process. Reviewed by: Veronica Wright MD on 05/16/2022 7:25 PM PST Approved by: Veronica Wright MD on 05/16/2022 7:25 PM [facility] Station ID: [id number]
[2022-05-16 19:37] LABS: LACTIC ACID, VENOUS 2.4 mmol/L (0.5-2.2)
[2022-05-16 20:06] LABS: BILIRUBIN,URINE NEGATIVE (NEGATIVE); GLUCOSE, URINE (UA) >=1000 mg/dL (NEGATIVE); KETONES,URINE (UA) NEGATIVE (NEGATIVE); LEUKOCYTE ESTERASE, URINE NEGATIVE (NEGATIVE); NITRITE,URINE NEGATIVE (NEGATIVE); OCCULT BLOOD,URINE NEGATIVE (NEGATIVE); PROTEIN,URINE NEGATIVE (NEGATIVE); UROBILINOGEN,URINE 0.2 (NORMAL) E.U./dL (NORMAL)
[2022-05-16 20:07] LABS: CLARITY,URINE CLEAR (CLEAR)
[2022-05-16 20:08] LABS: B. PARAPERTUSSIS- RESP PCR PAN NOT DETECTED; B. PERTUSSIS- RESP PCR PANEL NOT DETECTED; C. PNEUMONIAE- RESP PCR PANEL NOT DETECTED; CORONAVIRUS 229E-RESP PCR NOT DETECTED; CORONAVIRUS HKU1-RESP PCR NOT DETECTED; CORONAVIRUS NL63-RESP PCR NOT DETECTED; CORONAVIRUS OC43-RESP PCR NOT DETECTED; HUMAN METAPNEUMOVIRUS NOT DETECTED; INFLUENZA A- RESP PCR PANEL NOT DETECTED; INFLUENZA B - RESP PCR PANEL NOT DETECTED; M. PNEUMONIAE- RESP PCR PANEL NOT DETECTED; PARAINFLUENZA VIRUS 1 NOT DETECTED; PARAINFLUENZA VIRUS 2 NOT DETECTED; PARAINFLUENZA VIRUS 3 NOT DETECTED; PARAINFLUENZA VIRUS 4 NOT DETECTED; RHINOVIRUS/ENTEROVIRUS NOT DETECTED; RSV- RESP PCR PANEL NOT DETECTED; SARS-CoV-2 -RESP PCR PANEL NOT DETECTED
[2022-05-16 20:20] LABS: BACTERIA,URINE None Seen /HPF (None Seen); RBC,URINE None Seen /HPF (0-5); SQUAMOUS EPITHELIAL CELL,UR NONE SEEN (<= Few); WBC,URINE 0-3 /HPF (0-3)
[2022-05-16 21:13] VITALS: BP 146/77
== END 2022-05-16 22:42 | disposition home or self-care (01) ==
LOC: EDUNIT# → ED 18:27
DX: E10.649 Type 1 diabetes mellitus with hypoglycemia without coma (principal); Z79.84 Long term (current) use of oral hypoglycemic drugs; I10 Essential (primary) hypertension; Z87.891 Personal history of nicotine dependence; Z20.822 Contact with and (suspected) exposure to COVID-19
CPT/HCPCS: 36415; 80053; 81001; 82009; 82803; 83605; 84484; 85025; 87040; 87086; 87633; 93005; 96360; 99284

== ENCOUNTER 2022-05-27 12:15 | Outpatient (CLI) | payer MEDICARE | END 2022-05-27 12:16 | disposition short-term general hospital (02) | LOC: EMS 12:15 | DX: R07.89 Other chest pain (principal); R11.10 Vomiting, unspecified; E10.65 Type 1 diabetes mellitus with hyperglycemia; R53.1 Weakness; R53.81 Other malaise; R61 Generalized hyperhidrosis | CPT/HCPCS: A0425; A0429 ==

== ENCOUNTER 2022-06-12 11:02 | Outpatient (CLI) | payer MEDICARE | END 2022-06-12 11:03 | disposition critical access hospital (66) | LOC: EMS 11:02 | DX: T85.614A Breakdown (mechanical) of insulin pump, initial encounter (principal) | CPT/HCPCS: A0425; A0429 ==

== ENCOUNTER 2022-06-12 11:24 | Emergency (ER) | payer MEDICARE ==
[2022-06-12 11:37] VITALS: BP 111/66
--- NOTE | 2022-06-12 11:47 | ED Physician Documentation ---
History of Present Illness - Stated complaint Stated Complaint: LOW BS - Chief complaint Chief Complaint: General - History obtained from History obtained from: Patient - Additonal information Additional information: 56-year-old male with a past medical history of insulin-dependent diabetes presents with hyperglycemia. The patient states that he received an alarm on his insulin pump that his glucose was 77. He ate "10 teaspoons" of table sugar and his glucose started to climb. He had no symptoms with the hypoglycemia. Patient has had erratic blood sugars quite frequently since he started using the insulin pump about a year ago. He has had his lowest 20 which is when he becomes symptomatic and as high as 300s. He states he has no symptoms when he is hyperglycemic but does frequently have ketones in his urine. He otherwise feels well at this time, has not had any recent illness, no fever chills, cough cold symptoms, no chest pain or difficulty breathing, no abdominal pain nausea vomiting diarrhea. He does have chronic issues with constipation. No change in his physical activity or p.o. intake recently. He adheres largely to a diabetic diet and follows with his PCP for his insulin pump. It was calibrated today according to the patient and he has a certified adaptive physical educator visit tomorrow. Review of Systems Constitutional: reports: Reviewed and negative, Other (All other systems reviewed and are negative except as described in HPI) PD PAST MEDICAL HISTORY - Past Medical History Past Medical History: Yes Cardiovascular: Hypertension, High cholesterol, Arrhythmia, Other Respiratory: Pneumonia Neuro: Dementia, CVA (neuro suspects lacunar infarcts), Fainting (3 episodes 2020. TTE and NM stress nml. reveal loop [id number] neg. ), Other Endocrine/Autoimmune: Type 1 diabetes, HyPOthyroidism GI: GERD, Ulcers, Colon polyps : Other (erectile dysfunction) HEENT: Other (facial fractures from trauma) Psych: Depression, Anxiety, ADD/ADHD Musculoskeletal: Chronic back pain (from vertebral fx), Other (trigger finger) Derm: None - Past Surgical History Past Surgical History: Yes General: Colonoscopy (02/2014 w 6 polyps) Ortho: Carpal Tunnel surgery, Other (cyst on neck near spinal cord removed) Cardiovascular: Other (implantable loop recorder summer 2020) HEENT: Other (tonsillar abcess) - Present Medications Home Medications: Ambulatory Orders Medication Instructions Recorded Confirmed Atorvastatin Calcium [Lipitor] 80 mg PO QPM 05/30/21 05/02/22 Donepezil HCl [Aricept] 10 mg PO DAILY 05/30/21 05/02/22 Insulin Lispro [Humalog] 70 units SQ DAILY 05/30/21 05/02/22 Mirtazapine 45 mg PO QPM 05/30/21 05/02/22 EPINEPHrine [Epinephrine] 0.3 mg IJ ONCE PRN #1 dis.syr 10/02/21 05/02/22 DULoxetine [Cymbalta] 30 mg PO DAILY 01/26/22 05/02/22 Tamsulosin [Flomax] 0.4 mg PO DAILY 01/26/22 05/02/22 Albuterol 2.5 mg INH Q4H PRN #30 ml 04/16/22 05/02/22 Albuterol Sulf [Ventolin Hfa 1 - 2 puffs INH Q4HR PRN #1 each 04/16/22 05/02/22 Inhaler] Ondansetron Odt [Zofran Odt] 4 mg TL Q6H PRN #10 tablet 04/16/22 05/02/22 Insulin Glargine-Yfgn [Semglee] 20 unit SUBQ BID 30 Days #8 ea 04/20/22 05/02/22 Insulin Lispro [Humalog Kwikpen 5 unit SUBQ TIDWM #3 ml 04/20/22 05/02/22 U-100] Losartan [Cozaar] 50 mg PO DAILY #30 tab 04/20/22 05/02/22 Metoclopramide [Reglan] 10 mg PO Q6H PRN #20 tablet 05/02/22 - Allergies Allergies/Adverse Reactions: Allergies Allergy/AdvReac Type Severity Reaction Status Date / Time omeprazole Allergy Intermediate Nausea Verified 06/12/22 11:30 insulin aspart Allergy Unknown Verified 06/12/22 11:30 [From Novolog U-100 Insulin aspart] insulin aspart protamine Allergy Unknown Verified 06/12/22 11:30 human [From Novolog Mix 70-30 U-100 Insuln] codeine AdvReac Severe Dizziness Verified 06/12/22 11:30 doxycycline AdvReac Intermediate Dizziness Verified 06/12/22 11:30 tarragon AdvReac Nausea Uncoded 05/16/22 18:47 - Social History Does the pt smoke?: No Smoking Status: Former smoker Does the pt drink ETOH?: No Does the pt have substance abuse?: Yes - Immunizations Immunizations are current?: Yes - POLST Patient has POLST: No POLST Status: Full Code PD ED PE NORMAL - Vitals Vital signs reviewed: Yes - General General: Alert and oriented X 3, No acute distress, Well developed/nourished - HEENT HEENT: Atraumatic, Pharynx benign - Neck Neck: Supple, no meningeal sign, No JVD - Cardiac Cardiac: RRR, No murmur - Respiratory Respiratory: No respiratory distress, Clear bilaterally - Abdomen Abdomen: Normal bowel sounds, Soft, Non tender, Non distended - Derm Derm: Normal color, Warm and dry - Neuro Neuro: Alert and oriented X 3 Eye Opening: Spontaneous Motor: Obeys Commands Verbal: Oriented GCS Score: 15 - Psych Psych: Normal mood, Normal affect Results - Vitals Vitals: Vital Signs - 24 hr 06/12/22 11:31 Temperature 36.6 C Heart Rate 78 Respiratory 16 Rate Blood Pressure 111/66 O2 Saturation 97 Oxygen O2 Source [Without Activity] Room air O2 Source Room air - Labs Labs: Laboratory Tests 06/12/22 06/12/22 11:55 11:55 WBC 4.1 L RBC 4.79 Hgb 14.1 Hct 43.2 MCV 90.2 MCH 29.4 MCHC 32.6 RDW 13.2 Plt Count 241 MPV 10.7 Neut # (Auto) 2.5 Lymph # (Auto) 1.2 L Floyd # (Auto) 0.4 Eos # (Auto) 0.0 Baso # (Auto) 0.1 Absolute Nucleated RBC 0.00 Nucleated RBC % 0.0 Sodium 137 Potassium 4.5 Chloride 107 Carbon Dioxide 25 Anion Gap 5.0 L BUN 16 Creatinine 0.9 Estimated GFR (MDRD) 87 L Glucose 201 H Calcium 9.1 Total Bilirubin 0.6 AST 22 ALT 18 Alkaline Phosphatase 60 Total Protein 6.7 Albumin 3.9 Globulin 2.8 Albumin/Globulin Ratio 1.4 Lipase 38 PD Medical Decision Making - ED course Complexity details: reviewed old records, reviewed results, d/w patient ED course: 56-year-old male presented with an episode of hypoglycemia with glucose in the 70s. He was asymptomatic at the time. On arrival here, his glucose is 221. He is stable vital signs. He is not on any self on areas and has not had any change in his diet or insulin use recently. His pump was recently calibrated. Since the patient is quite brittle, with frequent fluctuations though his A1c is down from 13-8.1 since starting the insulin pump. As the patient is asymptomatic, and his CBC and CMP reviewed and are essentially normal, With no signs of DKA,and there is been no change in his patterns, I do think he is stable for discharge home but haveEncouraged him to monitor his glucose closely, and to keep his follow-up appoint with certified adaptive physical educator tomorrow. He may need to adjust his basal insulin rate or change to a pre-meal routine if that is bet ter for him. He will follow-up with PCP and Endocrinology to continue to monitor. Departure - Departure Disposition: 01 Home, Self Care Clinical Impression: Hypoglycemia Condition: Good Instructions: Hypoglycemia Comments: Your labs today are stable. Please monitor glucose and diet closely as you have been and follow-up with the certified adaptive physical educator Tomorrow as scheduled and your primary physician as well. They may suggest adjustments to your insulin pump But will want to look at longer term trends as well as your diet to see if there is any impact. Return to the ER if you have symptomatic hypoglycemia that is not responding to treatment at home or if you have other new issues or concerns.
--- OUTSIDE RECORDS SUMMARY | 2022-06-12 11:48 | EXTERNAL MEDICAL SUMMARY RPT | Continuity of Care Document ---
:1965 Author Organization [facility] Address [address] [place] [address] Phone Care Team Providers Name Role Phone Unavailable Unavailable Unavailable Dalton Finn Unavailable Unavailable Allergies and Intolerances date description facility type (no date) Mild [facility] (unknown) (no date) codeine [facility] (unknown) (no date) doxycycline [facility] (unknown) (no date) insulin aspart [facility] (unknown) (no date) omeprazole [facility] (unknown) Encounters No information. Functional Status No information. Immunizations No information. Medications date description facility 2022-05-27 00:00 Duloxetine [facility] 2022-05-27 00:00 Mirtazapine [facility] 2022-05-28 00:00 Amoxicillin-Pot Clavulanate [facility] 2022-05-27 00:00 Atorvastatin [facility] Problems date description facility 2022-05-27 00:00 Heart failure [facility] 2022-05-27 00:00 Back pain [facility] 2022-05-27 00:00 Hypoxia [facility] 2022-05-28 06:27 Type 1 diabetes mellitus with ketoacido [facility] without coma 2022-05-28 07:18 Type 1 diabetes mellitus with [facility] without coma 2022-05-28 09:15 Type 1 diabetes mellitus with ketoacido [facility] without coma 2022-05-28 09:45 Type 1 diabetes mellitus with ketoacido [facility] without coma 2022-05-28 11:06 Type 1 diabetes mellitus with ketoacido [facility] without coma 2022-05-28 11:20 Type 1 diabetes mellitus with ketoacido [facility] without coma 2022-05-28 11:42 Type 1 diabetes mellitus with miriam [facility] without coma 2022-05-28 13:05 Type 1 diabetes mellitus with miriam [facility] without coma 2022-05-29 07:56 Type 1 diabetes mellitus with miriam [facility] without coma 2022-05-30 09:27 Type 1 diabetes mellitus with ketoacido [facility] without coma Procedures date description facility 2022-05-27 00:00 X-ray of chest, single [facility] Results/Labs test date author facility value unit interpret ation Result panel 1 (unknown) (no date[facility] Result panel 2 (unknown) (no date) (unknown[facility] Result panel 3 (unknown) (no date) (unknown[facility] Result panel 4 (unknown) (no date) (unknown[facility] Result panel 5 (unknown) (no date) (unknown[facility] Result panel 6 (unknown) (no date) (unknown[facility] Result panel 7 (unknown) (no date) (unknown[facility] Result panel 8 (unknown) (no date) (unknown[facility] Result panel 9 (unknown) (no date) (unknown[facility] Result panel 10 (unknown) (no date) (unknown[facility] Result panel 11 (unknown) (no date) (unknown[facility] Result panel 12 (unknown) (no date) (unknown[facility] Result panel 13 (unknown) (no date) (unknown[facility] Result panel 14 (unknown) (no date) (unknown[facility] Result panel 15 (unknown) (no date) (unknown[facility] Result panel 16 (unknown) (no date) (unknown[facility] Result panel 17 (unknown) (no date) (unknown[facility] Result panel 18 (unknown) (no date) (unknown[facility] Result panel 19 (unknown) (no date) (unknown[facility] Result panel 20 (unknown) (no date) (unknown[facility] Result panel 21 (unknown) (no date) (unknown[facility] Result panel 22 (unknown) (no date) (unknown[facility] Result panel 23 (unknown) (no date) (unknown[facility] Result panel 24 (unknown) (no date) (unknown[facility] Result panel 25 (unknown) (no date) (unknown[facility] Result panel 26 (unknown) (no date) (unknown[facility] Result panel 27 (unknown) (no date) (unknown[facility] Result panel 28 (unknown) (no date) (unknown[facility] Result panel 29 (unknown) (no date) (unknown[facility] Result panel 30 (unknown) (no date) (unknown[facility] Result panel 31 (unknown) (no date) (unknown[facility] Result panel 32 (unknown) (no date) (unknown[facility] Result panel 33 (unknown) (no date) (unknown[facility] Result panel 34 (unknown) (no date) (unknown[facility] Result panel 35 (unknown) (no date) (unknown[facility] Result panel 36 (unknown) (no date) (unknown[facility] Result panel 37 (unknown) (no date) (unknown[facility] Result panel 38 (unknown) (no date) (unknown[facility] Result panel 39 (unknown) (no date) (unknown[facility] Result panel 40 (unknown) (no date) (unknown[facility] Result panel 41 (unknown) (no date) (unknown[facility] Result panel 42 (unknown) (no date) (unknown[facility] Result panel 43 (unknown) (no date) (unknown[facility] Result panel 44 (unknown) (no date) (unknown[facility] Result panel 45 (unknown) (no date) (unknown[facility] Result panel 46 (unknown) (no date) (unknown[facility] Result panel 47 (unknown) (no date) (unknown[facility] Result panel 48 (unknown) (no date) (unknown[facility] Result panel 49 (unknown) (no date) (unknown[facility] Result panel 50 (unknown) (no date) (unknown[facility] Result panel 51 (unknown) (no date) (unknown[facility] Result panel 52 (unknown) (no date) (unknown[facility] Result panel 53 (unknown) (no date) (unknown[facility] Result panel 54 (unknown) (no date) (unknown[facility] Result panel 55 (unknown) (no date) (unknown[facility] Result panel 56 (unknown) (no date) (unknown[facility] Result panel 57 (unknown) (no date) (unknown[facility] Result panel 58 (unknown) (no date) (unknown[facility] Result panel 59 (unknown) (no date) (unknown[facility] Result panel 60 (unknown) (no date) (unknown[facility] Result panel 61 (unknown) (no date) (unknown[facility] Result panel 62 (unknown) (no date) (unknown[facility] Result panel 63 (unknown) (no date) (unknown[facility] Result panel 64 (unknown) (no date) (unknown[facility] Result panel 65 (unknown) (no date) (unknown[facility] Result panel 66 (unknown) (no date) (unknown[facility] Result panel 67 (unknown) (no date) (unknown[facility] Result panel 68 (unknown) (no date) (unknown[facility] Result panel 69 (unknown) (no date) (unknown[facility] Result panel 70 (unknown) (no date) (unknown[facility] Result panel 71 (unknown) (no date) (unknown[facility] Result panel 72 (unknown) (no date) (unknown[facility]) Result panel 73 (unknown) (no date) (unknown[facility] Result panel 74 (unknown) (no date) (unknown[facility]) Result panel 75 (unknown) (no date) (unknown[facility] Result panel 76 (unknown) (no date) (unknown[facility] Result panel 77 (unknown) (no date) (unknown[facility] Result panel 78 (unknown) (no date) (unknown[facility] Result panel 79 (unknown) (no date) (unknown[facility]) Result panel 80 (unknown) (no date) (unknown[facility] Result panel 81 (unknown) (no date) (unknown[facility] Result panel 82 (unknown) (no date) (unknown[facility] Result panel 83 (unknown) (no date) (unknown[facility] Result panel 84 (unknown) (no date) (unknown[facility] Result panel 85 (unknown) (no date) (unknown[facility] Result panel 86 (unknown) (no date) (unknown[facility] Result panel 87 (unknown) (no date) (unknown[facility] Result panel 88 (unknown) (no date) (unknown[facility] Result panel 89 (unknown) (no date) (unknown[facility] Result panel 90 (unknown) (no date) (unknown[facility] Result panel 91 (unknown) (no date) (unknown[facility] Result panel 92 (unknown) (no date) (unknown[facility] Result panel 93 (unknown) (no date) (unknown[facility] Result panel 94 (unknown) (no date) (unknown[facility] Result panel 95 (unknown) (no date) (unknown[facility] Result panel 96 (unknown) (no date) (unknown[facility] Result panel 97 (unknown) (no date) (unknown[facility] Result panel 98 (unknown) (no date) (unknown[facility] Result panel 99 (unknown) (no date) (unknown[facility] Result panel 100 (unknown) (no date) (unknown[facility] Result panel 101 (unknown) (no date) (unknown[facility]) Result panel 102 (unknown) (no date) (unknown[facility] Result panel 103 (unknown) (no date) (unknown[facility] Result panel 104 (unknown) (no date) (unknown[facility] Result panel 105 (unknown) (no date) (unknown[facility] Result panel 106 (unknown) (no date) (unknown[facility] Result panel 107 (unknown) (no date) (unknown[facility] Result panel 108 (unknown) (no date) (unknown[facility] Result panel 109 (unknown) (no date) (unknown[facility] Result panel 110 (unknown) (no date) (unknown[facility]) Result panel 111 (unknown) (no date) (unknown[facility] Result panel 112 (unknown) (no date) (unknown[facility]) Result panel 113 (unknown) (no date) (unknown[facility] Result panel 114 (unknown) (no date) (unknown[facility] Result panel 115 (unknown) (no date) (unknown[facility] Result panel 116 (unknown) (no date) (unknown[facility] Result panel 117 (unknown) (no date) (unknown[facility]) Result panel 118 (unknown) (no date) (unknown[facility] Result panel 119 (unknown) (no date) (unknown[facility] Result panel 120 (unknown) (no date) (unknown[facility] Result panel 121 (unknown) (no date) (unknown[facility] Result panel 122 (unknown) (no date) (unknown[facility] Result panel 123 (unknown) (no date) (unknown[facility] Result panel 124 (unknown) (no date) (unknown[facility] Result panel 125 (unknown) (no date) (unknown[facility] Result panel 126 (unknown) (no date) (unknown[facility] Result panel 127 (unknown) (no date) (unknown[facility]) Result panel 128 (unknown) (no date) (unknown[facility] Result panel 129 (unknown) (no date) (unknown[facility] Result panel 130 (unknown) (no date) (unknown[facility] Result panel 131 (unknown) (no date) (unknown[facility] Result panel 132 (unknown) (no date) (unknown[facility] Result panel 133 (unknown) (no date) (unknown[facility] Result panel 134 (unknown) (no date) (unknown[facility] Result panel 135 (unknown) (no date) (unknown[facility] Result panel 136 (unknown) (no date) (unknown[facility] Result panel 137 (unknown) (no date) (unknown[facility] Result panel 138 (unknown) (no date) (unknown[facility] Result panel 139 (unknown) (no date) (unknown[facility] Result panel 140 (unknown) (no date) (unknown[facility] Result panel 141 (unknown) (no date) (unknown[facility] Result panel 142 (unknown) (no date) (unknown[facility] Result panel 143 (unknown) (no date) (unknown[facility] Result panel 144 (unknown) (no date) (unknown[facility] Result panel 145 (unknown) (no date) (unknown[facility] Result panel 146 (unknown) (no date) (unknown[facility]) Result panel 147 (unknown) (no date) (unknown) [facility] Result panel 148 (unknown) (no date) (unknown) [facility] Result panel 149 (unknown) (no date) (unknown) [facility] Result panel 150 (unknown) (no date) (unknown) [facility] Result panel 151 (unknown) (no date) (unknown) [facility] Result panel 152 (unknown) (no date) (unknown) [facility] Result panel 153 (unknown) (no date) (unknown[facility] Result panel 154 (unknown) (no date) (unknown) [facility] Result panel 155 (unknown) (no date) (unknown) [facility] Result panel 156 (unknown) (no date) (unknown) [facility]) Result panel 157 (unknown) (no date) (unknown) [facility] Result panel 158 (unknown) (no date) (unknown) [facility] Result panel 159 (unknown) (no date) (unknown) [facility] Result panel 160 (unknown) (no date) (unknown) [facility] Result panel 161 (unknown) (no date) (unknown) [facility] Result panel 162 (unknown) (no date) (unknown) [facility] Result panel 163 (unknown) (no date) (unknown) [facility] Result panel 164 (unknown) (no date) (unknown) [facility]) Result panel 165 (unknown) (no date) (unknown) [facility] Result panel 166 (unknown) (no date) (unknown) [facility] Result panel 167 (unknown) (no date) (unknown) [facility] Result panel 168 (unknown) (no date) (unknown) [facility] Result panel 169 (unknown) (no date) (unknown) [facility] Result panel 170 (unknown) (no date) (unknown) [facility] Result panel 171 (unknown) (no date) (unknown) [facility] Result panel 172 (unknown) (no date) (unknown) [facility] Result panel 173 (unknown) (no date) (unknown) [facility] Result panel 174 (unknown) (no date) (unknown) [facility] Result panel 175 (unknown) (no date) (unknown) [facility] Result panel 176 (unknown) (no date) (unknown) [facility] Result panel 177 (unknown) (no date) (unknown) [facility]) Result panel 178 (unknown) (no date) (unknown) [facility] Result panel 179 (unknown) (no date) (unknown) [facility] Result panel 180 (unknown) (no date) (unknown) [facility] Result panel 181 (unknown) (no date) (unknown) [facility] Result panel 182 (unknown) (no date) (unknown[facility] Result panel 183 (unknown) (no date) (unknown[facility] Result panel 184 (unknown) (no date) (unknown[facility] Result panel 185 (unknown) (no date) (unknown[facility] Result panel 186 (unknown) (no date) (unknown[facility] Result panel 187 (unknown) (no date) (unknown[facility] Result panel 188 (unknown) (no date) (unknown) [facility] Result panel 189 (unknown) (no date) (unknown) [facility] Result panel 190 (unknown) (no date) (unknown) [facility] Result panel 191 (unknown) (no date) (unknown) [facility] Result panel 192 (unknown) (no date) (unknown) [facility] Result panel 193 (unknown) (no date) (unknown) [facility] Result panel 194 (unknown) (no date) (unknown) [facility] Result panel 195 (unknown) (no date) (unknown) [facility] Result panel 196 (unknown) (no date) (unknown) [facility] Result panel 197 (unknown) (no date) (unknown) [facility] Result panel 198 (unknown) (no date) (unknown) [facility] Result panel 199 (unknown) (no date) (unknown) [facility] Result panel 200 (unknown) (no date) (unknown) [facility] Result panel 201 (unknown) (no date) (unknown) [facility] Result panel 202 (unknown) (no date) (unknown) [facility] Result panel 203 (unknown) (no date) (unknown) [facility] Result panel 204 (unknown) (no date) (unknown) [facility] Result panel 205 (unknown) (no date) (unknown) [facility] Result panel 206 (unknown) (no date) (unknown) [facility] Result panel 207 (unknown) (no date) (unknown[facility] Result panel 208 (unknown) (no date) (unknown) [facility] Result panel 209 (unknown) (no date) (unknown) [facility] Result panel 210 (unknown) (no date) (unknown) [facility] Result panel 211 (unknown) (no date) (unknown[facility] Result panel 212 (unknown) (no date) (unknown) [facility] Result panel 213 (unknown) (no date) (unknown[facility] Result panel 214 (unknown) (no date) (unknown) [facility] unknown) Result panel 215 (unknown) (no date) (unknown) [facility]) Result panel 216 (unknown) (no date) (unknown) [facility] Result panel 217 (unknown) (no date) (unknown) [facility]) Result panel 218 (unknown) (no date) (unknown) [facility]) Result panel 219 (unknown) (no date) (unknown) [facility]) Result panel 220 (unknown) (no date) (unknown) [facility]) Result panel 221 (unknown) (no date) (unknown) [facility]) Result panel 222 (unknown) (no date) (unknown) [facility]) Result panel 223 (unknown) (no date) (unknown) [facility]) Result panel 224 (unknown) (no date) (unknown) [facility]) Result panel 225 (unknown) (no date) (unknown) [facility]) Result panel 226 (unknown) (no date) (unknown) [facility]) Result panel 227 (unknown) (no date) (unknown) [facility]) Result panel 228 (unknown) (no date) (unknown) [facility]) Result panel 229 (unknown) (no date) (unknown) [facility]) Result panel 230 (unknown) (no date) (unknown) [facility]) Result panel 231 (unknown) (no date) (unknown) [facility]) Result panel 232 (unknown) (no date) (unknown) [facility]) Result panel 233 (unknown) (no date) (unknown) [facility]) Result panel 234 (unknown) (no date) (unknown) [facility]) Result panel 235 (unknown) (no date) (unknown) [facility]) Result panel 236 (unknown) (no date) (unknown) [facility]) Result panel 237 (unknown) (no date) (unknown) [facility]) Result panel 238 (unknown) (no date) (unknown) [facility]) Result panel 239 (unknown) (no date) (unknown) [facility]) Result panel 240 (unknown) (no date) (unknown) [facility]) Result panel 241 (unknown) (no date) (unknown) [facility]) Result panel 242 (unknown) (no date) (unknown) [facility]) Result panel 243 (unknown) (no date) (unknown) [facility]) Result panel 244 (unknown) (no date) (unknown) [facility]) Result panel 245 (unknown) (no date) (unknown) [facility]) Result panel 246 (unknown) (no date) (unknown) [facility]) Result panel 247 (unknown) (no date) (unknown) [facility]) Result panel 248 (unknown) (no date) (unknown) [facility]) Result panel 249 (unknown) (no date) (unknown) [facility]) Result panel 250 (unknown) (no date) (unknown) [facility]) Result panel 251 (unknown) (no date) (unknown) [facility]) Result panel 252 (unknown) (no date) (unknown) [facility]) Result panel 253 (unknown) (no date) (unknown) [facility]) Result panel 254 (unknown) (no date) (unknown) [facility]) Result panel 255 (unknown) (no date) (unknown) [facility]) Result panel 256 (unknown) (no date) (unknown) [facility]) Result panel 257 (unknown) (no date) (unknown) [facility]) Result panel 258 (unknown) (no date) (unknown) [facility]) Result panel 259 (unknown) (no date) (unknown) [facility]) Result panel 260 (unknown) (no date) (unknown) [facility]) Result panel 261 (unknown) (no date) (unknown) [facility]) Result panel 262 (unknown) (no date) (unknown) [facility]) Result panel 263 (unknown) (no date) (unknown) [facility]) Result panel 264 (unknown) (no date) (unknown) [facility]) Result panel 265 (unknown) (no date) (unknown) [facility]) Result panel 266 (unknown) (no date) (unknown) [facility]) Result panel 267 (unknown) (no date) (unknown) [facility]) Result panel 268 (unknown) (no date) (unknown) [facility]) Result panel 269 (unknown) (no date) (unknown) [facility]) Result panel 270 (unknown) (no date) (unknown) [facility]) Result panel 271 (unknown) (no date) (unknown) [facility]) Result panel 272 (unknown) (no date) (unknown) [facility]) Result panel 273 (unknown) (no date) (unknown) [facility]) Result panel 274 (unknown) (no date) (unknown) [facility]) Result panel 275 (unknown) (no date) (unknown) [facility]) Result panel 276 (unknown) (no date) (unknown) [facility]) Result panel 277 (unknown) (no date) (unknown) [facility]) Result panel 278 (unknown) (no date) (unknown) [facility]) Result panel 279 (unknown) (no (unknown) (unknown) (no value) (units (unk nown) date) unknown) (unknown) (no (unknown) (unknown) 05/27/22 (units (unkno wn) date) unknown) (unknown) (no (unknown) (unknown) [address] [place] [address] (units (unknown) date) unknown) (unknown) (no (unknown) (unknown) [id number] (units (unkno wn) date) unknown) (unknown) (no (unknown) (unknown) Accession Number: (units (unknown) date) [id number] unknown) (unknown) (no (unknown) (unknown) Age/Sex: 56 / M (units (unknown) date) Date of Service: unknown) (unknown) (no (unknown) (unknown) [place], [place] (units ( unknown) date) [id number] unknown) (unknown) (no (unknown) (unknown) Approved by: (units (u nknown) date) Eris Beck M.D. on unknown) 05/27/2022 at 15:13 (unknown) (no (unknown) (unknown) Bones and chest (units (unknown) date) wall: No unknown) suspicious bony lesions. Overlying soft tissues (unknown) (no (unknown) (unknown) COMPARISON: (units (un known) date) [facility], unknown) CR, CHEST 1 VIEW, 06/20/2016, 20:50. (unknown) (no (unknown) (unknown) : 1965 (units (unknown) date) Acct:[id number] unknown) (unknown) (no (unknown) (unknown) Dictated by: (units (u nknown) date) Eris Beck M.D. on unknown) 05/27/2022 at 15:13 (unknown) (no (unknown) (unknown) FINDINGS: (units (unkn own) date) unknown) (unknown) (no (unknown) (unknown) IMPRESSION: No (units (unknown) date) acute unknown) cardiopulmonary disease. (unknown) (no (unknown) (unknown) INDICATIONS: (units (u nknown) date) chest pain unknown) (unknown) (no (unknown) (unknown) [facility] (units (unknown) date) unknown) (unknown) (no (unknown) (unknown) Loc: ED (units (unkno wn) date) unknown) (unknown) (no (unknown) (unknown) Lungs and pleura: (units (unknown) date) Lungs are clear. unknown) No pleural effusions or pneumothorax. (unknown) (no (unknown) (unknown) Mediastinum: (units (u nknown) date) Mediastinal unknown) contours appear normal. Heart size is normal. (unknown) (no (unknown) (unknown) Ordering (units (unkno wn) date) Provider: unknown) Dalton Graff D.O. (unknown) (no (unknown) (unknown) PROCEDURE: XR (units ( unknown) date) CHEST 1V unknown) (unknown) (no (unknown) (unknown) Patient: (units (unkno wn) date) Ed Meredith MR#: unknown) [id number] (unknown) (no (unknown) (unknown) Procedure: XR (units ( unknown) date) chest 1V unknown) (unknown) (no (unknown) (unknown) Signed (units (unkno wn) date) unknown) (unknown) (no (unknown) (unknown) Surgical changes (units (unknown) date) and devices: None. unknown) (unknown) (no (unknown) (unknown) TECHNIQUE: One (units (unknown) date) view of the chest unknown) was acquired. (unknown) (no (unknown) (unknown) XRay Report (units (un known) date) unknown) (unknown) (no (unknown) (unknown) appear (units (unkno wn) date) unknown) (unknown) (no (unknown) (unknown) unremarkable. (units ( unknown) date) unknown) Result panel 280 (unknown) (no (unknown) (unknown) (no value) (units (unk nown) date) unknown) (unknown) (no (unknown) (unknown) 05/27/22 13:08 (units (unknown) date) unknown) (unknown) (no (unknown) (unknown) 05/27/22 13:09 (units (unknown) date) unknown) (unknown) (no (unknown) (unknown) 05/27/22 13:49 (units (unknown) date) unknown) (unknown) (no (unknown) (unknown) 05/27/22 13:50 (units (unknown) date) unknown) (unknown) (no (unknown) (unknown) 05/27/22 (units (unkno wn) date) unknown) (unknown) (no (unknown) (unknown) 13:06 (units (unkno wn) date) unknown) (unknown) (no (unknown) (unknown) 5 mg PO TID PRN (units (unknown) date) (Reason: muscle unknown) spasm) Qty: 10 0RF (unknown) (no (unknown) (unknown) 55 unit SLIDE (units ( unknown) date) Qty: 0 unknown) (unknown) (no (unknown) (unknown) [id number] (units (unkno wn) date) unknown) (unknown) (no (unknown) (unknown) Age/Sex: 56 / M (units (unknown) date) unknown) (unknown) (no (unknown) (unknown) Allergies (units (unkn own) date) unknown) (unknown) (no (unknown) (unknown) Allergy/AdvReac (units (unknown) date) Type Severity unknown) Reaction Status Date / Time (unknown) (no (unknown) (unknown) Arterial Blood (units (unknown) date) Gas Stat unknown) (unknown) (no (unknown) (unknown) Blood Culture (units ( unknown) date) Stat unknown) (unknown) (no (unknown) (unknown) Blood Pressure (units (unknown) date) 148/69 H 05/27/22 unknown) 13:06 (unknown) (no (unknown) (unknown) Blood Pressure (units (unknown) date) 148/69 H unknown) (unknown) (no (unknown) (unknown) COVID19 -Nasal (units (unknown) date) RAPID Stat unknown) (unknown) (no (unknown) (unknown) Chief complaint: (units (unknown) date) Diabetic Problem unknown) (unknown) (no (unknown) (unknown) Complete Blood (units (unknown) date) Count AUTO DIFF unknown) Stat (unknown) (no (unknown) (unknown) Comprehensive (units ( unknown) date) Metabolic Panel unknown) Stat (unknown) (no (unknown) (unknown) Consult to WORD PROCESSOR TECHNICIAN - (units (unknown) date) Program Technician unknown) Stat (unknown) (no (unknown) (unknown) Course (units (unkno wn) date) unknown) (unknown) (no (unknown) (unknown) : 1965 (units (unknown) date) Acct:[id number] unknown) (unknown) (no (unknown) (unknown) Date of Service: (units (unknown) date) 05/27/22 unknown) (unknown) (no (unknown) (unknown) Departure (units (unkn own) date) unknown) (unknown) (no (unknown) (unknown) Discharge Plan (units (unknown) date) unknown) (unknown) (no (unknown) (unknown) ED Orders (units (unkn own) date) unknown) (unknown) (no (unknown) (unknown) EKG-12 Lead Stat (units (unknown) date) unknown) (unknown) (no (unknown) (unknown) ER Physician: (units ( unknown) date) Dalton Graff unknown) D.O. (unknown) (no (unknown) (unknown) Emergency Report (units (unknown) date) unknown) (unknown) (no (unknown) (unknown) Exam (units (unkno wn) date) unknown) (unknown) (no (unknown) (unknown) General (units (unkno wn) date) unknown) (unknown) (no (unknown) (unknown) Dalton Finn, (units (unknown) date) MD [Primary Care unknown) Provider] (unknown) (no (unknown) (unknown) HPI - General (units ( unknown) date) Adult unknown) (unknown) (no (unknown) (unknown) Home Medications (units (unknown) date) unknown) (unknown) (no (unknown) (unknown) Initial Vital (units ( unknown) date) Signs unknown) (unknown) (no (unknown) (unknown) Initial Vital (units ( unknown) date) Signs: unknown) (unknown) (no (unknown) (unknown) 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 unknown) (unknown) (no (unknown) (unknown) [facility] (units (unknown) date) [address] unknown) [place] [address] (unknown) (no (unknown) (unknown) Ketones (units (unkno wn) date) (Beta-Hydroxybutyr unknown) ate) Stat (unknown) (no (unknown) (unknown) Lipase Stat (units (un known) date) unknown) (unknown) (no (unknown) (unknown) Magnesium Stat (units (unknown) date) unknown) (unknown) (no (unknown) (unknown) Medical History (units (unknown) date) (Updated 10/31/17 unknown) @ 00:01 by ) (unknown) (no (unknown) (unknown) Medication (units (unk nown) date) Instructions unknown) Recorded Confirmed (unknown) (no (unknown) (unknown) Medication (units (unk nown) date) Instructions unknown) Recorded (unknown) (no (unknown) (unknown) Mode of arrival: (units (unknown) date) EMS unknown) (unknown) (no (unknown) (unknown) No Action (units (unkn own) date) unknown) (unknown) (no (unknown) (unknown) Ondansetron HCl (units (unknown) date) (Ondansetron 4 Mg unknown) Odt) 4 mg SL NOW PRN (unknown) (no (unknown) (unknown) Ondansetron HCl (units (unknown) date) (Ondansetron 4 unknown) Mg/2 Ml Inj) 4 mg IV NOW PRN (unknown) (no (unknown) (unknown) Ordered: (units (unkno wn) date) unknown) (unknown) (no (unknown) (unknown) Orders (units (unkno wn) date) unknown) (unknown) (no (unknown) (unknown) Oxygen Delivery (units (unknown) date) Method Room Air unknown) 05/27/22 13:06 (unknown) (no (unknown) (unknown) Oxygen Delivery (units (unknown) date) Method Room Air unknown) (unknown) (no (unknown) (unknown) PRN Reason: (units (un known) date) Nausea And unknown) Vomiting (unknown) (no (unknown) (unknown) PTT Partial (units (un known) date) Thromboplastin Carlos unknown) Stat (unknown) (no (unknown) (unknown) Patient History (units (unknown) date) unknown) (unknown) (no (unknown) (unknown) Patient: (units (unkno wn) date) Ed Meredith MR#: unknown) [id number] (unknown) (no (unknown) (unknown) Phosphorous Stat (units (unknown) date) unknown) (unknown) (no (unknown) (unknown) Prescriptions: (units (unknown) date) unknown) (unknown) (no (unknown) (unknown) Previous Rx's (units ( unknown) date) unknown) (unknown) (no (unknown) (unknown) Prothrombin Time (units (unknown) date) INR Stat unknown) (unknown) (no (unknown) (unknown) Pulse Oximetry (units (unknown) date) 100 05/27/22 13:06 unknown) (unknown) (no (unknown) (unknown) Pulse Oximetry (units (unknown) date) 100 unknown) (unknown) (no (unknown) (unknown) Pulse Rate 78 (units ( unknown) date) 05/27/22 13:06 unknown) (unknown) (no (unknown) (unknown) Pulse Rate 78 (units ( unknown) date) unknown) (unknown) (no (unknown) (unknown) Referrals: (units (unk nown) date) unknown) (unknown) (no (unknown) (unknown) Related Data (units (u nknown) date) unknown) (unknown) (no (unknown) (unknown) Respiratory Rate (units (unknown) date) 22 05/27/22 13:06 unknown) (unknown) (no (unknown) (unknown) Respiratory Rate (units (unknown) date) 22 unknown) (unknown) (no (unknown) (unknown) Signed By: (units (unk nown) date) unknown) (unknown) (no (unknown) (unknown) Smoking Status: (units (unknown) date) Former smoker unknown) (unknown) (no (unknown) (unknown) Social History (units (unknown) date) (Updated 10/16/17 unknown) @ 05:32 by Gege Greenwood DO) (unknown) (no (unknown) (unknown) Sodium Chloride (units (unknown) date) (Normal Saline unknown) 0.9%) 1,000 mls @ 1,000 mls/hr IV BOLUS ONE (unknown) (no (unknown) (unknown) Source: patient (units (unknown) date) and EMS unknown) (unknown) (no (unknown) (unknown) Stated complaint: (units (unknown) date) chest pain/ n+v/ unknown) high glucose (unknown) (no (unknown) (unknown) Stop: 05/27/22 (units (unknown) date) 14:48 unknown) (unknown) (no (unknown) (unknown) Substance Use (units ( unknown) date) Type: marijuana unknown) (unknown) (no (unknown) (unknown) Temperature 97.5 (units (unknown) date) F L 05/27/22 13:06 unknown) (unknown) (no (unknown) (unknown) Temperature 97.5 (units (unknown) date) F L unknown) (unknown) (no (unknown) (unknown) Time Seen by (units (u nknown) date) Provider: 05/27/22 unknown) 13:38 (unknown) (no (unknown) (unknown) Troponin + CK (units ( unknown) date) Cardiac Panel Stat unknown) (unknown) (no (unknown) (unknown) U-100 Insulin) (units (unknown) date) unknown) (unknown) (no (unknown) (unknown) Urinalysis and (units (unknown) date) Microscopic Stat unknown) (unknown) (no (unknown) (unknown) Urine Culture (units ( unknown) date) Stat unknown) (unknown) (no (unknown) (unknown) Urine Drug (units (unk nown) date) Screen, Rapid Stat unknown) (unknown) (no (unknown) (unknown) Vital Signs - 8 (units (unknown) date) hr unknown) (unknown) (no (unknown) (unknown) Vital Signs (units (un known) date) unknown) (unknown) (no (unknown) (unknown) Vital signs: (units (u nknown) date) unknown) (unknown) (no (unknown) (unknown) XR chest 1V Stat (units (unknown) date) unknown) (unknown) (no (unknown) (unknown) [From Novolog (units ( unknown) date) U-100 Insulin unknown) injection (unknown) (no (unknown) (unknown) alcohol intake (units (unknown) date) frequency: unknown) holidays/special occasions only (unknown) (no (unknown) (unknown) alcohol intake: (units (unknown) date) never unknown) (unknown) (no (unknown) (unknown) aspart] site (units (u nknown) date) unknown) (unknown) (no (unknown) (unknown) codeine [CODEINE] (units (unknown) date) Allergy Unknown unknown) Verified 05/27/22 13:06 (unknown) (no (unknown) (unknown) cyclobenzaprine 5 (units (unknown) date) mg tablet 5 mg PO unknown) TID PRN muscle spasm #10 10/16/17 (unknown) (no (unknown) (unknown) cyclobenzaprine 5 (units (unknown) date) mg tablet unknown) (unknown) (no (unknown) (unknown) doxycycline (units (un known) date) [DOXYCYCLINE] unknown) Allergy Unknown Verified 05/27/22 13:06 (unknown) (no (unknown) (unknown) insulin aspart (units (unknown) date) Allergy Unknown unknown) Rash at Verified 05/27/22 13:20 (unknown) (no (unknown) (unknown) insulin lispro (units (unknown) date) 100 unit/mL 55 unknown) unit SLIDE ##0 08/30/10 (unknown) (no (unknown) (unknown) insulin lispro (units (unknown) date) [Humalog U-100 unknown) Insulin] 100 UNIT/1 ML solution (unknown) (no (unknown) (unknown) omeprazole (units (unk nown) date) [OMEPRAZOLE] unknown) Allergy Unknown Verified 05/27/22 13:06 (unknown) (no (unknown) (unknown) subcutaneous (units (u nknown) date) solution (Humalog unknown) (unknown) (no (unknown) (unknown) substance use (units ( unknown) date) type: does not use unknown) (unknown) (no (unknown) (unknown) tabs (units (unkno wn) date) unknown) Result panel 281 (unknown) (no date) (unknown) (unknown) 0 /ul (unkn own) (unknown) (no date) (unknown) (unknown) 0.1 % (unkn own) (unknown) (no date) (unknown) (unknown) 0.5 % (unkn own) (unknown) (no date) (unknown) (unknown) 100 /ul (unkn own) (unknown) (no date) (unknown) (unknown) [address] /ul (unkn own) (unknown) (no date) (unknown) (unknown) 11.2 x10 3/ul (unkn own) (unknown) (no date) (unknown) (unknown) 13.3 % (unkn own) (unknown) (no date) (unknown) (unknown) 14.9 g/dl (unkn own) (unknown) (no date) (unknown) (unknown) 2.7 % (unkn own) (unknown) (no date) (unknown) (unknown) 243 x10 3/ul (unkn own) (unknown) (no date) (unknown) (unknown) 29.7 pg (unkn own) (unknown) (no date) (unknown) (unknown) 300 /ul (unkn own) (unknown) (no date) (unknown) (unknown) 33.3 % (unkn own) (unknown) (no date) (unknown) (unknown) 44.7 % (unkn own) (unknown) (no date) (unknown) (unknown) 5.02 x10 6/ul (unkn own) (unknown) (no date) (unknown) (unknown) 6.4 % (unkn own) (unknown) (no date) (unknown) (unknown) 700 /ul (unkn own) (unknown) (no date) (unknown) (unknown) 89.1 fl (unkn own) (unknown) (no date) (unknown) (unknown) 90.3 % (unkn own) Result panel 282 (unknown) (no date) (unknown) (unknown) -11.0 mmol/l (unkn own) (unknown) (no date) (unknown) (unknown) 15 mmol/l (unkn own) (unknown) (no date) (unknown) (unknown) 16 mmol/l (unkn own) (unknown) (no date) (unknown) (unknown) 21 (units unknown) (unknown) (unknown) (no date) (unknown) (unknown) 26 mmhg (unkn own) (unknown) (no date) (unknown) (unknown) 26.7 mmhg (unkn own) (unknown) (no date) (unknown) (unknown) 46 % (unkn own) (unknown) (no date) (unknown) (unknown) 7.35 (units unknown) (unknown) (unknown) (no date) (unknown) (unknown) 7.35 (units unknown) (unknown) Result panel 283 (unknown) (no date) (unknown) (unknown) 3.6 mg/dl (unkn own) Result panel 284 (unknown) (no date) (unknown) (unknown) 3.6 mg/dl (unkn own) (unknown) (no date) (unknown) (unknown) 6.46 mmol/l (unkn own) (unknown) (no date) (unknown) (unknown) 6.46 mmol/l (unkn own) Result panel 285 (unknown) (no date) (unknown) (unknown) Negative (units (unkn own) unknown) (unknown) (no date) (unknown) (unknown) Negative (units (unkn own) unknown) Result panel 286 (unknown) (no date) (unknown) (unknown) > 60 ml/min (unkn own) (unknown) (no date) (unknown) (unknown) > 60 ml/min (unkn own) (unknown) (no date) (unknown) (unknown) 1.15 mg/dl (unkn own) (unknown) (no date) (unknown) (unknown) 1.5 (units (unkn own) unknown) (unknown) (no date) (unknown) (unknown) 1.8 mg/dl (unkn own) (unknown) (no date) (unknown) (unknown) 104 u/l (unkn own) (unknown) (no date) (unknown) (unknown) 12 mmol/l (unkn own) (unknown) (no date) (unknown) (unknown) 132 mmol/l (unkn own) (unknown) (no date) (unknown) (unknown) 2.7 mg/dl (unkn own) (unknown) (no date) (unknown) (unknown) 20.0 (units (unkn own) unknown) (unknown) (no date) (unknown) (unknown) 23 mg/dl (unkn own) (unknown) (no date) (unknown) (unknown) 27 iu/l (unkn own) (unknown) (no date) (unknown) (unknown) 3.1 g/dl (unkn own) (unknown) (no date) (unknown) (unknown) 4.7 g/dl (unkn own) (unknown) (no date) (unknown) (unknown) 44 iu/l (unkn own) (unknown) (no date) (unknown) (unknown) 5.0 mmol/l (unkn own) (unknown) (no date) (unknown) (unknown) 57 u/l (unkn own) (unknown) (no date) (unknown) (unknown) 62 u/l (unkn own) (unknown) (no date) (unknown) (unknown) 7.8 g/dl (unkn own) (unknown) (no date) (unknown) (unknown) 731 mg/dl (unkn own) (unknown) (no date) (unknown) (unknown) 731 mg/dl (unkn own) (unknown) (no date) (unknown) (unknown) 9.7 mg/dl (unkn own) (unknown) (no date) (unknown) (unknown) 94 mmol/l (unkn own) (unknown) (no date) (unknown) (unknown) Test not % (unkn own) performed (unknown) (no date) (unknown) (unknown) Test not % (unkn own) performed (unknown) (no date) (unknown) (unknown) Test not ng/ml (unkn own) performed (unknown) (no date) (unknown) (unknown) Test not ng/ml (unkn own) performed Result panel 287 (unknown) (no date) (unknown) (unknown) 0.2 e.u./dl (unkn own) (unknown) (no date) (unknown) (unknown) 1.010 (units (unkn own) unknown) (unknown) (no date) (unknown) (unknown) 3 (units (unkn own) unknown) (unknown) (no date) (unknown) (unknown) 3 g/dl (unkn own) (unknown) (no date) (unknown) (unknown) 6.0 (units (unkn own) unknown) (unknown) (no date) (unknown) (unknown) CLEAR (units (unkn own) unknown) (unknown) (no date) (unknown) (unknown) NEGATIVE (units (unkn own) unknown) (unknown) (no date) (unknown) (unknown) YELLOW (units (unkn own) unknown) (unknown) (no date) (unknown) (unknown) YELLOW (units (unkn own) unknown) Result panel 288 (unknown) (no date) (unknown) (unknown) 0.2 e.u./dl (unkn own) (unknown) (no date) (unknown) (unknown) 1 (units (unkn own) unknown) (unknown) (no date) (unknown) (unknown) 1.010 (units (unkn own) unknown) (unknown) (no date) (unknown) (unknown) 3 (units (unkn own) unknown) (unknown) (no date) (unknown) (unknown) 3 g/dl (unkn own) (unknown) (no date) (unknown) (unknown) 6.0 (units (unkn own) unknown) (unknown) (no date) (unknown) (unknown) CLEAR (units (unkn own) unknown) (unknown) (no date) (unknown) (unknown) Cult Not (units (unkn own) Indicated unknown) (unknown) (no date) (unknown) (unknown) NEGATIVE (units (unkn own) unknown) (unknown) (no date) (unknown) (unknown) None Seen (units (unk nown) unknown) (unknown) (no date) (unknown) (unknown) None Seen (units (unk nown) unknown) (unknown) (no date) (unknown) (unknown) YELLOW (units (unkn own) unknown) (unknown) (no date) (unknown) (unknown) YELLOW (units (unkn own) unknown) Result panel 289 (unknown) (no date) (unknown) (unknown) Negative (units (unkn own) unknown) (unknown) (no date) (unknown) (unknown) Normal (units (unkn own) unknown) (unknown) (no date) (unknown) (unknown) Positive (units (unkn own) unknown) Result panel 290 (unknown) (no date) (unknown) (unknown) -15.0 mmol/l (unkn own) (unknown) (no date) (unknown) (unknown) 12 mmol/l (unkn own) (unknown) (no date) (unknown) (unknown) 21 (units unknown) (unknown) (unknown) (no date) (unknown) (unknown) 24.9 mmhg (unkn own) (unknown) (no date) (unknown) (unknown) 24.9 mmhg (unkn own) (unknown) (no date) (unknown) (unknown) 7.27 (units unknown) (unknown) (unknown) (no date) (unknown) (unknown) 7.27 (units unknown) (unknown) (unknown) (no date) (unknown) (unknown) 97 % (unkn own) (unknown) (no date) (unknown) (unknown) 99 mmhg (unkn own) Result panel 291 (unknown) (no date) (unknown) (unknown) > 60 ml/min (unkn own) (unknown) (no date) (unknown) (unknown) > 60 ml/min (unkn own) (unknown) (no date) (unknown) (unknown) < 0.012 ng/ml (unkn own) (unknown) (no date) (unknown) (unknown) < 0.012 ng/ml (unkn own) (unknown) (no date) (unknown) (unknown) 1.15 mg/dl (unkn own) (unknown) (no date) (unknown) (unknown) 1.5 (units (unkn own) unknown) (unknown) (no date) (unknown) (unknown) 1.8 mg/dl (unkn own) (unknown) (no date) (unknown) (unknown) 104 u/l (unkn own) (unknown) (no date) (unknown) (unknown) 12 mmol/l (unkn own) (unknown) (no date) (unknown) (unknown) 132 mmol/l (unkn own) (unknown) (no date) (unknown) (unknown) 2.7 mg/dl (unkn own) (unknown) (no date) (unknown) (unknown) 20.0 (units (unkn own) unknown) (unknown) (no date) (unknown) (unknown) 23 mg/dl (unkn own) (unknown) (no date) (unknown) (unknown) 27 iu/l (unkn own) (unknown) (no date) (unknown) (unknown) 3.1 g/dl (unkn own) (unknown) (no date) (unknown) (unknown) 4.7 g/dl (unkn own) (unknown) (no date) (unknown) (unknown) 44 iu/l (unkn own) (unknown) (no date) (unknown) (unknown) 5.0 mmol/l (unkn own) (unknown) (no date) (unknown) (unknown) 57 u/l (unkn own) (unknown) (no date) (unknown) (unknown) 62 u/l (unkn own) (unknown) (no date) (unknown) (unknown) 7.8 g/dl (unkn own) (unknown) (no date) (unknown) (unknown) 731 mg/dl (unkn own) (unknown) (no date) (unknown) (unknown) 731 mg/dl (unkn own) (unknown) (no date) (unknown) (unknown) 9.7 mg/dl (unkn own) (unknown) (no date) (unknown) (unknown) 94 mmol/l (unkn own) (unknown) (no date) (unknown) (unknown) Test not % (unkn own) performed (unknown) (no date) (unknown) (unknown) Test not % (unkn own) performed (unknown) (no date) (unknown) (unknown) Test not ng/ml (unkn own) performed (unknown) (no date) (unknown) (unknown) Test not ng/ml (unkn own) performed Result panel 292 (unknown) (no date) (unknown) (unknown) < 10 mg/dl (unkn own) (unknown) (no date) (unknown) (unknown) < 10 mg/dl (unkn own) Result panel 293 (unknown) (no date) (unknown) (unknown) < 0.012 ng/ml (unkn own) (unknown) (no date) (unknown) (unknown) < 0.012 ng/ml (unkn own) (unknown) (no date) (unknown) (unknown) < 10 mg/dl (unkn own) (unknown) (no date) (unknown) (unknown) < 10 mg/dl (unkn own) Result panel 294 (unknown) (no date) (unknown) (unknown) > 60 ml/min (unkn own) (unknown) (no date) (unknown) (unknown) > 60 ml/min (unkn own) (unknown) (no date) (unknown) (unknown) 1.12 mg/dl (unkn own) (unknown) (no date) (unknown) (unknown) 1.5 (units unknown) (unknown) (unknown) (no date) (unknown) (unknown) 103 mmol/l (unkn own) (unknown) (no date) (unknown) (unknown) 136 mmol/l (unkn own) (unknown) (no date) (unknown) (unknown) 2.2 mg/dl (unkn own) (unknown) (no date) (unknown) (unknown) 2.8 g/dl (unkn own) (unknown) (no date) (unknown) (unknown) 21.4 (units unknown) (unknown) (unknown) (no date) (unknown) (unknown) 24 mg/dl (unkn own) (unknown) (no date) (unknown) (unknown) 30 iu/l (unkn own) (unknown) (no date) (unknown) (unknown) 4.1 g/dl (unkn own) (unknown) (no date) (unknown) (unknown) 4.4 mmol/l (unkn own) (unknown) (no date) (unknown) (unknown) 40 iu/l (unkn own) (unknown) (no date) (unknown) (unknown) 532 mg/dl (unkn own) (unknown) (no date) (unknown) (unknown) 532 mg/dl (unkn own) (unknown) (no date) (unknown) (unknown) 6.9 g/dl (unkn own) (unknown) (no date) (unknown) (unknown) 79 u/l (unkn own) (unknown) (no date) (unknown) (unknown) 8 mmol/l (unkn own) (unknown) (no date) (unknown) (unknown) 8 mmol/l (unkn own) (unknown) (no date) (unknown) (unknown) 8.8 mg/dl (unkn own) Result panel 295 (unknown) (no date) (unknown) (unknown) 9.5 % (unkn own) (unknown) (no date) (unknown) (unknown) 9.5 % (unkn own) Result panel 296 (unknown) (no date) (unknown) (unknown) 2.80 uiu/ml (unkn own) (unknown) (no date) (unknown) (unknown) 2.80 uiu/ml (unkn own) Result panel 297 (unknown) (no (unknown) (unknown) (no value) (units (unk nown) date) unknown) (unknown) (no (unknown) (unknown) 05/27/22 05/27/22 (units (unknown) date) 05/27/22 unknown) Range/Units (unknown) (no (unknown) (unknown) 05/27/22 12:55 (units (unknown) date) unknown) (unknown) (no (unknown) (unknown) 05/27/22 13:08 (units (unknown) date) unknown) (unknown) (no (unknown) (unknown) 05/27/22 13:09 (units (unknown) date) unknown) (unknown) (no (unknown) (unknown) 05/27/22 13:50 (units (unknown) date) unknown) (unknown) (no (unknown) (unknown) 05/27/22 13:53 (units (unknown) date) unknown) (unknown) (no (unknown) (unknown) 05/27/22 14:15 (units (unknown) date) unknown) (unknown) (no (unknown) (unknown) 05/27/22 14:30 (units (unknown) date) unknown) (unknown) (no (unknown) (unknown) 05/27/22 14:40 (units (unknown) date) unknown) (unknown) (no (unknown) (unknown) 05/27/22 15:12 (units (unknown) date) unknown) (unknown) (no (unknown) (unknown) 05/27/22 16:28 (units (unknown) date) unknown) (unknown) (no (unknown) (unknown) 05/27/22 16:50 (units (unknown) date) unknown) (unknown) (no (unknown) (unknown) 05/27/22 (units (unkno wn) date) unknown) (unknown) (no (unknown) (unknown) 12:55 13:50 13:50 (units (unknown) date) unknown) (unknown) (no (unknown) (unknown) 13:06 05/27/22 (units (unknown) date) unknown) (unknown) (no (unknown) (unknown) 13:37 05/27/22 (units (unknown) date) unknown) (unknown) (no (unknown) (unknown) 13:37 (units (unkno wn) date) unknown) (unknown) (no (unknown) (unknown) 13:40 05/27/22 (units (unknown) date) unknown) (unknown) (no (unknown) (unknown) 13:45 05/27/22 (units (unknown) date) unknown) (unknown) (no (unknown) (unknown) 13:45 (units (unkno wn) date) unknown) (unknown) (no (unknown) (unknown) 13:50 13:50 13:50 (units (unknown) date) unknown) (unknown) (no (unknown) (unknown) 13:55 05/27/22 (units (unknown) date) unknown) (unknown) (no (unknown) (unknown) 13:55 (units (unkno wn) date) unknown) (unknown) (no (unknown) (unknown) 14:00 05/27/22 (units (unknown) date) unknown) (unknown) (no (unknown) (unknown) 14:05 05/27/22 (units (unknown) date) unknown) (unknown) (no (unknown) (unknown) 14:05 (units (unkno wn) date) unknown) (unknown) (no (unknown) (unknown) 14:10 05/27/22 (units (unknown) date) unknown) (unknown) (no (unknown) (unknown) 14:10 (units (unkno wn) date) unknown) (unknown) (no (unknown) (unknown) 14:15 05/27/22 (units (unknown) date) unknown) (unknown) (no (unknown) (unknown) 14:15 14:40 14:40 (units (unknown) date) unknown) (unknown) (no (unknown) (unknown) 14:20 05/27/22 (units (unknown) date) unknown) (unknown) (no (unknown) (unknown) 14:20 (units (unkno wn) date) unknown) (unknown) (no (unknown) (unknown) 14:28 05/27/22 (units (unknown) date) unknown) (unknown) (no (unknown) (unknown) 14:28 (units (unkno wn) date) unknown) (unknown) (no (unknown) (unknown) 14:30 05/27/22 (units (unknown) date) unknown) (unknown) (no (unknown) (unknown) 14:41 05/27/22 (units (unknown) date) unknown) (unknown) (no (unknown) (unknown) 14:41 (units (unkno wn) date) unknown) (unknown) (no (unknown) (unknown) 14:45 05/27/22 (units (unknown) date) unknown) (unknown) (no (unknown) (unknown) 15:00 05/27/22 (units (unknown) date) unknown) (unknown) (no (unknown) (unknown) 15:00 (units (unkno wn) date) unknown) (unknown) (no (unknown) (unknown) 15:12 16:28 16:50 (units (unknown) date) unknown) (unknown) (no (unknown) (unknown) 15:30 05/27/22 (units (unknown) date) unknown) (unknown) (no (unknown) (unknown) 16:00 (units (unkno wn) date) unknown) (unknown) (no (unknown) (unknown) 16:30 05/27/22 (units (unknown) date) unknown) (unknown) (no (unknown) (unknown) 17:00 05/27/22 (units (unknown) date) unknown) (unknown) (no (unknown) (unknown) 17:30 (units (unkno wn) date) unknown) (unknown) (no (unknown) (unknown) 6599 (units (unkno wn) date) unknown) (unknown) (no (unknown) (unknown) ? (units (unkno wn) date) unknown) (unknown) (no (unknown) (unknown) ABG Base Excess (units (unknown) date) (-2-3) mmol/L unknown) (unknown) (no (unknown) (unknown) ABG Base Excess (units (unknown) date) -15.0 L (-2-3) unknown) mmol/L (unknown) (no (unknown) (unknown) ABG HCO3 (23-27) (units (unknown) date) mmol/L unknown) (unknown) (no (unknown) (unknown) ABG HCO3 12 L (units ( unknown) date) (23-27) mmol/L unknown) (unknown) (no (unknown) (unknown) ABG O2 Saturation (units (unknown) date) (95-100) % unknown) (unknown) (no (unknown) (unknown) ABG O2 Saturation (units (unknown) date) 97 (95-100) % unknown) (unknown) (no (unknown) (unknown) ABG Total CO2 (units ( unknown) date) (23-27) mmol/L unknown) (unknown) (no (unknown) (unknown) ABG Total CO2 12 L (units (unknown) date) (23-27) mmol/L unknown) (unknown) (no (unknown) (unknown) ABG pCO2 (35-45) (units (unknown) date) mmHg unknown) (unknown) (no (unknown) (unknown) ABG pCO2 24.9 L* (units (unknown) date) (35-45) mmHg unknown) (unknown) (no (unknown) (unknown) ABG pH (7.35-7.45) (units (unknown) date) unknown) (unknown) (no (unknown) (unknown) ABG pH 7.27 L* (units (unknown) date) (7.35-7.45) unknown) (unknown) (no (unknown) (unknown) ABG pO2 (80-100) (units (unknown) date) mmHg unknown) (unknown) (no (unknown) (unknown) ABG pO2 99 (units (unk nown) date) (80-100) mmHg unknown) (unknown) (no (unknown) (unknown) ALT (<50) IU/L (units (unknown) date) unknown) (unknown) (no (unknown) (unknown) ALT 40 (<50) IU/L (units (unknown) date) unknown) (unknown) (no (unknown) (unknown) ALT 44 (<50) IU/L (units (unknown) date) unknown) (unknown) (no (unknown) (unknown) AST (17-59) IU/L (units (unknown) date) unknown) (unknown) (no (unknown) (unknown) AST 27 (17-59) (units (unknown) date) IU/L unknown) (unknown) (no (unknown) (unknown) AST 30 (17-59) (units (unknown) date) IU/L unknown) (unknown) (no (unknown) (unknown) Acetaminophen (units ( unknown) date) (Acetaminophen 325 unknown) Mg Tablet) 650 mg PO Q6H PRN (unknown) (no (unknown) (unknown) Admin: 05/27/22 (units (unknown) date) 14:07 Dose: 1,000 unknown) mls/hr (unknown) (no (unknown) (unknown) Admin: 05/27/22 (units (unknown) date) 15:00 Dose: 250 unknown) mls/hr (unknown) (no (unknown) (unknown) Admin: 05/27/22 (units (unknown) date) 15:26 Dose: 6 unknown) mls/hr, 6 mls/hr (unknown) (no (unknown) (unknown) Age/Sex: 56 / M (units (unknown) date) unknown) (unknown) (no (unknown) (unknown) Albumin (3.5-5.0) (units (unknown) date) g/dL unknown) (unknown) (no (unknown) (unknown) Albumin 4.1 (units (un known) date) (3.5-5.0) g/dL unknown) (unknown) (no (unknown) (unknown) Albumin 4.7 (units (un known) date) (3.5-5.0) g/dL unknown) (unknown) (no (unknown) (unknown) Albumin/Globulin (units (unknown) date) Ratio (1.0-2.8) unknown) (unknown) (no (unknown) (unknown) Albumin/Globulin (units (unknown) date) Ratio 1.5 (1.0-2.8) unknown) (unknown) (no (unknown) (unknown) Alkaline (units (unkno wn) date) Phosphatase unknown) (38-126) U/L (unknown) (no (unknown) (unknown) Alkaline (units (unkno wn) date) Phosphatase 104 unknown) (38-126) U/L (unknown) (no (unknown) (unknown) Alkaline (units (unkno wn) date) Phosphatase 79 unknown) (38-126) U/L (unknown) (no (unknown) (unknown) Allergies (units (unkn own) date) unknown) (unknown) (no (unknown) (unknown) Allergy/AdvReac (units (unknown) date) Type Severity unknown) Reaction Status Date / Time (unknown) (no (unknown) (unknown) Amorphous Sediment (units (unknown) date) 1 unknown) (unknown) (no (unknown) (unknown) Amorphous Sediment (units (unknown) date) unknown) (unknown) (no (unknown) (unknown) Arterial Blood Gas (units (unknown) date) Stat unknown) (unknown) (no (unknown) (unknown) Attestation: I (units (unknown) date) personally reviewed unknown) and interpreted this ECG as follows: (unknown) (no (unknown) (unknown) BUN (9-20) mg/dL (units (unknown) date) unknown) (unknown) (no (unknown) (unknown) BUN 23 H (9-20) (units (unknown) date) mg/dL unknown) (unknown) (no (unknown) (unknown) BUN 24 H (9-20) (units (unknown) date) mg/dL unknown) (unknown) (no (unknown) (unknown) BUN/Creatinine (units (unknown) date) Ratio (6-22) unknown) (unknown) (no (unknown) (unknown) BUN/Creatinine (units (unknown) date) Ratio 20.0 (6-22) unknown) (unknown) (no (unknown) (unknown) BUN/Creatinine (units (unknown) date) Ratio 21.4 (6-22) unknown) (unknown) (no (unknown) (unknown) Baso # (Auto) (units ( unknown) date) (0-100) /uL unknown) (unknown) (no (unknown) (unknown) Baso # (Auto) 100 (units (unknown) date) (0-100) /uL unknown) (unknown) (no (unknown) (unknown) Baso % (Auto) (units ( unknown) date) (0-2) % unknown) (unknown) (no (unknown) (unknown) Baso % (Auto) 0.5 (units (unknown) date) (0-2) % unknown) (unknown) (no (unknown) (unknown) Blood Culture Stat (units (unknown) date) unknown) (unknown) (no (unknown) (unknown) Blood Pressure (units (unknown) date) 121/58 L unknown) (unknown) (no (unknown) (unknown) Blood Pressure (units (unknown) date) 123/62 unknown) (unknown) (no (unknown) (unknown) Blood Pressure (units (unknown) date) 128/58 L unknown) (unknown) (no (unknown) (unknown) Blood Pressure (units (unknown) date) 133/61 152/61 H unknown) (unknown) (no (unknown) (unknown) Blood Pressure (units (unknown) date) 139/63 141/97 H unknown) (unknown) (no (unknown) (unknown) Blood Pressure (units (unknown) date) 140/61 108/53 L unknown) (unknown) (no (unknown) (unknown) Blood Pressure (units (unknown) date) 142/87 H unknown) (unknown) (no (unknown) (unknown) Blood Pressure (units (unknown) date) 144/58 H 148/67 H unknown) (unknown) (no (unknown) (unknown) Blood Pressure (units (unknown) date) 148/69 H 05/27/22 unknown) 13:06 (unknown) (no (unknown) (unknown) Blood Pressure (units (unknown) date) 148/69 H 129/63 unknown) (unknown) (no (unknown) (unknown) Blood Pressure (units (unknown) date) unknown) (unknown) (no (unknown) (unknown) Bones and chest (units (unknown) date) wall:? No unknown) suspicious bony lesions.? Overlying soft tissues (unknown) (no (unknown) (unknown) CK-MB (CK-2) Rel (units (unknown) date) Index TNP unknown) (unknown) (no (unknown) (unknown) CK-MB (CK-2) Rel (units (unknown) date) Index unknown) (unknown) (no (unknown) (unknown) CK-MB (CK-2) TNP (units (unknown) date) unknown) (unknown) (no (unknown) (unknown) CK-MB (CK-2) (units (u nknown) date) unknown) (unknown) (no (unknown) (unknown) CMP [Comprehensive (units (unknown) date) Metabolic Panel] unknown) Stat (unknown) (no (unknown) (unknown) COMPARISON:? (units (u nknown) date) [facility], unknown) CR, CHEST 1 VIEW, 06/20/2016, 20:50. (unknown) (no (unknown) (unknown) COVID19 -Nasal (units (unknown) date) RAPID Stat unknown) (unknown) (no (unknown) (unknown) Calcium (8.4-10.2) (units (unknown) date) mg/dL unknown) (unknown) (no (unknown) (unknown) Calcium 8.8 (units (un known) date) (8.4-10.2) mg/dL unknown) (unknown) (no (unknown) (unknown) Calcium 9.7 (units (un known) date) (8.4-10.2) mg/dL unknown) (unknown) (no (unknown) (unknown) Carbon Dioxide (units (unknown) date) (22-32) mmol/L unknown) (unknown) (no (unknown) (unknown) Carbon Dioxide 12 (units (unknown) date) L (22-32) mmol/L unknown) (unknown) (no (unknown) (unknown) Carbon Dioxide 8 (units (unknown) date) L* (22-32) mmol/L unknown) (unknown) (no (unknown) (unknown) Ceftriaxone Sodium (units (unknown) date) 1,000 mg/ (Sodium unknown) Chloride) 100 mls @ 200 mls/hr IV Q24H SRIDEVI (unknown) (no (unknown) (unknown) Chest x-ray: (units (u nknown) date) unknown) (unknown) (no (unknown) (unknown) Chief complaint: (units (unknown) date) Diabetic Problem unknown) (unknown) (no (unknown) (unknown) Chloride (98-107) (units (unknown) date) mmol/L unknown) (unknown) (no (unknown) (unknown) Chloride 103 (units (u nknown) date) (98-107) mmol/L unknown) (unknown) (no (unknown) (unknown) Chloride 94 L (units ( unknown) date) (98-107) mmol/L unknown) (unknown) (no (unknown) (unknown) Clinical (units (unkno wn) date) Impression: unknown) (unknown) (no (unknown) (unknown) Complete Blood (units (unknown) date) Count AUTO DIFF unknown) Stat (unknown) (no (unknown) (unknown) Comprehensive (units ( unknown) date) Metabolic Panel unknown) Stat (unknown) (no (unknown) (unknown) Consult to WORD PROCESSOR TECHNICIAN - (units (unknown) date) Program Technician unknown) Stat (unknown) (no (unknown) (unknown) Course (units (unkno wn) date) unknown) (unknown) (no (unknown) (unknown) Creatinine (units (unk nown) date) (0.66-1.25) mg/dL unknown) (unknown) (no (unknown) (unknown) Creatinine 1.12 (units (unknown) date) (0.66-1.25) mg/dL unknown) (unknown) (no (unknown) (unknown) Creatinine 1.15 (units (unknown) date) (0.66-1.25) mg/dL unknown) (unknown) (no (unknown) (unknown) : 1965 (units (unknown) date) Acct:[id number] unknown) (unknown) (no (unknown) (unknown) Date of Service: (units (unknown) date) 05/27/22 unknown) (unknown) (no (unknown) (unknown) Departure (units (unkn own) date) unknown) (unknown) (no (unknown) (unknown) Discharge Plan (units (unknown) date) unknown) (unknown) (no (unknown) (unknown) Discontinued (units (u nknown) date) Medications unknown) (unknown) (no (unknown) (unknown) Documented By: OWEN (units (unknown) date) Co-signed By: ARELY unknown) (unknown) (no (unknown) (unknown) Documented By: OWEN (units (unknown) date) Co-signed By: AVIVA unknown) (unknown) (no (unknown) (unknown) Documented By: KM (units (unknown) date) unknown) (unknown) (no (unknown) (unknown) ECG Data (units (unkno wn) date) unknown) (unknown) (no (unknown) (unknown) ED Orders (units (unkn own) date) unknown) (unknown) (no (unknown) (unknown) EKG-12 Lead Stat (units (unknown) date) unknown) (unknown) (no (unknown) (unknown) ER Physician: (units ( unknown) date) Dalton Graff D.O. unknown) (unknown) (no (unknown) (unknown) ETOH [Ethanol (units ( unknown) date) (ETOH)] Stat unknown) (unknown) (no (unknown) (unknown) Emergency Report (units (unknown) date) unknown) (unknown) (no (unknown) (unknown) Eos # (Auto) (units (u nknown) date) (0-450) /uL unknown) (unknown) (no (unknown) (unknown) Eos # (Auto) 0 (units (unknown) date) (0-450) /uL unknown) (unknown) (no (unknown) (unknown) Eos % (Auto) (2-4) (units (unknown) date) % unknown) (unknown) (no (unknown) (unknown) Eos % (Auto) 0.1 L (units (unknown) date) (2-4) % unknown) (unknown) (no (unknown) (unknown) Estimated GFR > 60 (units (unknown) date) (>60) mL/min unknown) (unknown) (no (unknown) (unknown) Estimated GFR (units ( unknown) date) (>60) mL/min unknown) (unknown) (no (unknown) (unknown) Ethyl Alcohol < 10 (units (unknown) date) ( - 10) mg/dL unknown) (unknown) (no (unknown) (unknown) Ethyl Alcohol ( - (units (unknown) date) 10) mg/dL unknown) (unknown) (no (unknown) (unknown) Exam (units (unkno wn) date) unknown) (unknown) (no (unknown) (unknown) FINDINGS:? (units (unk nown) date) unknown) (unknown) (no (unknown) (unknown) FiO2 21 (units (unkno wn) date) unknown) (unknown) (no (unknown) (unknown) FiO2 (units (unkno wn) date) unknown) (unknown) (no (unknown) (unknown) General (units (unkno wn) date) unknown) (unknown) (no (unknown) (unknown) Globulin (1.7-4.1) (units (unknown) date) g/dL unknown) (unknown) (no (unknown) (unknown) Globulin 2.8 (units (u nknown) date) (1.7-4.1) g/dL unknown) (unknown) (no (unknown) (unknown) Globulin 3.1 (units (u nknown) date) (1.7-4.1) g/dL unknown) (unknown) (no (unknown) (unknown) Glucose (70-100) (units (unknown) date) mg/dL unknown) (unknown) (no (unknown) (unknown) Glucose 532 H* (units (unknown) date) (70-100) mg/dL unknown) (unknown) (no (unknown) (unknown) Glucose 731 H* (units (unknown) date) (70-100) mg/dL unknown) (unknown) (no (unknown) (unknown) Glucose POC 367 (units (unknown) date) unknown) (unknown) (no (unknown) (unknown) HPI - General (units ( unknown) date) Adult unknown) (unknown) (no (unknown) (unknown) Hct (41-53) % (units ( unknown) date) unknown) (unknown) (no (unknown) (unknown) Hct 44.7 (41-53) % (units (unknown) date) unknown) (unknown) (no (unknown) (unknown) Heart failure, (units (unknown) date) Hypoxia, Back pain unknown) (unknown) (no (unknown) (unknown) Hemoglobin A1c (units (unknown) date) (4.0-6.0) % unknown) (unknown) (no (unknown) (unknown) Hemoglobin A1c 9.5 (units (unknown) date) H (4.0-6.0) % unknown) (unknown) (no (unknown) (unknown) Hgb (13.5-17.5) (units (unknown) date) g/dL unknown) (unknown) (no (unknown) (unknown) Hgb 14.9 (units (unkno wn) date) (13.5-17.5) g/dL unknown) (unknown) (no (unknown) (unknown) Home Medications (units (unknown) date) unknown) (unknown) (no (unknown) (unknown) IMPRESSION:? No (units (unknown) date) acute unknown) cardiopulmonary disease. (unknown) (no (unknown) (unknown) INDICATIONS:? (units ( unknown) date) chest pain unknown) (unknown) (no (unknown) (unknown) INSULIN DRIP (units (u nknown) date) PREMIX (Myxredlin unknown) Drip Premix) 100 unit in 100 mls @ 6 mls/hr IV (unknown) (no (unknown) (unknown) Ibuprofen (units (unkn own) date) (Ibuprofen 600 Mg unknown) Tablet) 800 mg PO Q6H PRN (unknown) (no (unknown) (unknown) Imaging Data (units (u nknown) date) unknown) (unknown) (no (unknown) (unknown) Initial EKG (units (un known) date) unknown) (unknown) (no (unknown) (unknown) Initial Vital (units ( unknown) date) Signs unknown) (unknown) (no (unknown) (unknown) Initial Vital (units ( unknown) date) Signs: unknown) (unknown) (no (unknown) (unknown) 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 unknown) (unknown) (no (unknown) (unknown) Interpretation: (units (unknown) date) unknown) (unknown) (no (unknown) (unknown) [facility] (units (unknown) date) [address] unknown) [place] [address] (unknown) (no (unknown) (unknown) Ketones (<0.27) (units (unknown) date) mmol/L unknown) (unknown) (no (unknown) (unknown) Ketones (units (unkno wn) date) (Beta-Hydroxybutyra unknown) te) Stat (unknown) (no (unknown) (unknown) Ketones 6.46 H (units (unknown) date) (<0.27) mmol/L unknown) (unknown) (no (unknown) (unknown) Lab Data (units (unkno wn) date) unknown) (unknown) (no (unknown) (unknown) Lab Results (units (un known) date) unknown) (unknown) (no (unknown) (unknown) Lab results (units (un known) date) reviewed: Yes I unknown) reviewed the patient's lab results. (unknown) (no (unknown) (unknown) Labs: (units (unkno wn) date) unknown) (unknown) (no (unknown) (unknown) Last Admin: (units (un known) date) 05/27/22 14:06 unknown) Dose: 4 mg (unknown) (no (unknown) (unknown) Last Admin: (units (un known) date) 05/27/22 15:00 unknown) Dose: 10 mg (unknown) (no (unknown) (unknown) Last Infusion: (units (unknown) date) 05/27/22 15:04 unknown) Dose: 0 mls/hr (unknown) (no (unknown) (unknown) Last Infusion: (units (unknown) date) 05/27/22 18:49 unknown) Dose: 0 mls/hr (unknown) (no (unknown) (unknown) Last Titration: (units (unknown) date) 05/27/22 15:44 unknown) Dose: 12 mls/hr, 12 mls/hr (unknown) (no (unknown) (unknown) Lipase (23-300) (units (unknown) date) U/L unknown) (unknown) (no (unknown) (unknown) Lipase 62 (23-300) (units (unknown) date) U/L unknown) (unknown) (no (unknown) (unknown) Lipase Stat (units (un known) date) unknown) (unknown) (no (unknown) (unknown) Lungs and pleura:? (units (unknown) date) Lungs are clear.? unknown) No pleural effusions or pneumothorax.? (unknown) (no (unknown) (unknown) Lymph # (Auto) (units (unknown) date) (1381-5963) /uL unknown) (unknown) (no (unknown) (unknown) Lymph # (Auto) 700 (units (unknown) date) L (8408-3341) /uL unknown) (unknown) (no (unknown) (unknown) Lymph % (Auto) (units (unknown) date) (25-40) % unknown) (unknown) (no (unknown) (unknown) Lymph % (Auto) 6.4 (units (unknown) date) L (25-40) % unknown) (unknown) (no (unknown) (unknown) MCH (26-34) PG (units (unknown) date) unknown) (unknown) (no (unknown) (unknown) MCH 29.7 (26-34) (units (unknown) date) PG unknown) (unknown) (no (unknown) (unknown) MCHC (30-36) % (units (unknown) date) unknown) (unknown) (no (unknown) (unknown) MCHC 33.3 (30-36) (units (unknown) date) % unknown) (unknown) (no (unknown) (unknown) MCV (80-100) fL (units (unknown) date) unknown) (unknown) (no (unknown) (unknown) MCV 89.1 (80-100) (units (unknown) date) fL unknown) (unknown) (no (unknown) (unknown) Magnesium (units (unkn own) date) (1.6-2.3) mg/dL unknown) (unknown) (no (unknown) (unknown) Magnesium 1.8 (units ( unknown) date) (1.6-2.3) mg/dL unknown) (unknown) (no (unknown) (unknown) Magnesium Stat (units (unknown) date) unknown) (unknown) (no (unknown) (unknown) Mediastinum:? (units ( unknown) date) Mediastinal unknown) contours appear normal.? Heart size is normal.? (unknown) (no (unknown) (unknown) Medical Decision (units (unknown) date) Making unknown) (unknown) (no (unknown) (unknown) Medical History (units (unknown) date) (Updated 05/27/22 @ unknown) 15:45 by Dalton Graff DO) (unknown) (no (unknown) (unknown) Medication (units (unk nown) date) Instructions unknown) Recorded Confirmed (unknown) (no (unknown) (unknown) Medication (units (unk nown) date) Instructions unknown) Recorded (unknown) (no (unknown) (unknown) Melatonin (units (unkn own) date) (Melatonin 3 Mg unknown) Tablet) 6 mg PO BEDTIME PRN (unknown) (no (unknown) (unknown) Metoclopramide HCl (units (unknown) date) (Metoclopramide 10 unknown) Mg/2 Ml Inj) 10 mg IV NOW ONE (unknown) (no (unknown) (unknown) Metronidazole (units ( unknown) date) (Metronidazole 500 unknown) Mg Tablet) 500 mg PO TID SRIDEVI (unknown) (no (unknown) (unknown) Mode of arrival: (units (unknown) date) EMS unknown) (unknown) (no (unknown) (unknown) [place] # (Auto) (units ( unknown) date) (0-900) /uL unknown) (unknown) (no (unknown) (unknown) [place] # (Auto) 300 (units (unknown) date) (0-900) /uL unknown) (unknown) (no (unknown) (unknown) [place] % (Auto) (units ( unknown) date) (3-14) % unknown) (unknown) (no (unknown) (unknown) [place] % (Auto) 2.7 (units (unknown) date) L (3-14) % unknown) (unknown) (no (unknown) (unknown) Naloxone HCl (units (u nknown) date) (Naloxone 0.4 Mg/Ml unknown) Vial) 0.2 mg IV Q2MIN PRN (unknown) (no (unknown) (unknown) Neut # (Auto) (units ( unknown) date) (8605-1242) /uL unknown) (unknown) (no (unknown) (unknown) Neut # (Auto) (units ( unknown) date) 02032 H (5545-4840) unknown) /uL (unknown) (no (unknown) (unknown) Neut % (Auto) (units ( unknown) date) (50-75) % unknown) (unknown) (no (unknown) (unknown) Neut % (Auto) 90.3 (units (unknown) date) H (50-75) % unknown) (unknown) (no (unknown) (unknown) No ST T wave (units (u nknown) date) changes unknown) (unknown) (no (unknown) (unknown) Normal QRS (units (unk nown) date) unknown) (unknown) (no (unknown) (unknown) Normal axis (units (un known) date) unknown) (unknown) (no (unknown) (unknown) Ondansetron HCl (units (unknown) date) (Ondansetron 4 Mg unknown) Odt) 4 mg SL NOW PRN (unknown) (no (unknown) (unknown) Ondansetron HCl (units (unknown) date) (Ondansetron 4 Mg/2 unknown) Ml Inj) 4 mg IV NOW PRN (unknown) (no (unknown) (unknown) Ordered: (units (unkno wn) date) unknown) (unknown) (no (unknown) (unknown) Orders (units (unkno wn) date) unknown) (unknown) (no (unknown) (unknown) Oxygen Delivery (units (unknown) date) Method Room Air unknown) 05/27/22 13:06 (unknown) (no (unknown) (unknown) Oxygen Delivery (units (unknown) date) Method Room Air unknown) (unknown) (no (unknown) (unknown) Oxygen Delivery (units (unknown) date) Method unknown) (unknown) (no (unknown) (unknown) PRN Reason: (units (un known) date) Constipation unknown) (unknown) (no (unknown) (unknown) PRN Reason: (units (un known) date) Fever/Mild Pain unknown) (1-3) (unknown) (no (unknown) (unknown) PRN Reason: (units (un known) date) Insomnia unknown) (unknown) (no (unknown) (unknown) PRN Reason: Nausea (units (unknown) date) And Vomiting unknown) (unknown) (no (unknown) (unknown) PRN Reason: Opiate (units (unknown) date) Reversal unknown) (unknown) (no (unknown) (unknown) PRN (units (unkno wn) date) unknown) (unknown) (no (unknown) (unknown) PROCEDURE:? XR (units (unknown) date) CHEST 1V unknown) (unknown) (no (unknown) (unknown) Patient (units (unkno wn) date) Disposition: Home unknown) (unknown) (no (unknown) (unknown) Patient History (units (unknown) date) unknown) (unknown) (no (unknown) (unknown) Patient: (units (unkno wn) date) Ed Meredith MR#: unknown) [id number] (unknown) (no (unknown) (unknown) Phosphorous Stat (units (unknown) date) unknown) (unknown) (no (unknown) (unknown) Phosphorus (units (unk nown) date) (2.5-4.5) mg/dL unknown) (unknown) (no (unknown) (unknown) Phosphorus 3.6 (units (unknown) date) (2.5-4.5) mg/dL unknown) (unknown) (no (unknown) (unknown) Plt Count (units (unkn own) date) (150-400) X103/uL unknown) (unknown) (no (unknown) (unknown) Plt Count 243 (units ( unknown) date) (150-400) X103/uL unknown) (unknown) (no (unknown) (unknown) Point of Care (units ( unknown) date) Testing unknown) (unknown) (no (unknown) (unknown) Point of care (units ( unknown) date) testing: unknown) (unknown) (no (unknown) (unknown) Polyethylene (units (u nknown) date) Glycol unknown) (Polyethylene Glycol 3350 17 Gm Powd.Pack) 17 gm PO DAILY (unknown) (no (unknown) (unknown) Potassium (units (unkn own) date) (3.4-5.1) mmol/L unknown) (unknown) (no (unknown) (unknown) Potassium 4.4 (units ( unknown) date) (3.4-5.1) mmol/L unknown) (unknown) (no (unknown) (unknown) Potassium 5.0 (units ( unknown) date) (3.4-5.1) mmol/L unknown) (unknown) (no (unknown) (unknown) Previous Rx's (units ( unknown) date) unknown) (unknown) (no (unknown) (unknown) Pulse Oximetry 100 (units (unknown) date) 05/27/22 13:06 unknown) (unknown) (no (unknown) (unknown) Pulse Oximetry 100 (units (unknown) date) 100 99 unknown) (unknown) (no (unknown) (unknown) Pulse Oximetry 100 (units (unknown) date) 100 unknown) (unknown) (no (unknown) (unknown) Pulse Oximetry 100 (units (unknown) date) unknown) (unknown) (no (unknown) (unknown) Pulse Oximetry 97 (units (unknown) date) 98 unknown) (unknown) (no (unknown) (unknown) Pulse Oximetry 98 (units (unknown) date) 100 unknown) (unknown) (no (unknown) (unknown) Pulse Oximetry 99 (units (unknown) date) 100 unknown) (unknown) (no (unknown) (unknown) Pulse Rate 73 77 (units (unknown) date) unknown) (unknown) (no (unknown) (unknown) Pulse Rate 74 76 (units (unknown) date) unknown) (unknown) (no (unknown) (unknown) Pulse Rate 75 (units ( unknown) date) unknown) (unknown) (no (unknown) (unknown) Pulse Rate 76 77 (units (unknown) date) unknown) (unknown) (no (unknown) (unknown) Pulse Rate 78 (units ( unknown) date) 05/27/22 13:06 unknown) (unknown) (no (unknown) (unknown) Pulse Rate 78 76 (units (unknown) date) unknown) (unknown) (no (unknown) (unknown) Pulse Rate 78 (units ( unknown) date) unknown) (unknown) (no (unknown) (unknown) Pulse Rate 79 (units ( unknown) date) unknown) (unknown) (no (unknown) (unknown) Pulse Rate 81 74 (units (unknown) date) unknown) (unknown) (no (unknown) (unknown) Pulse Rate 83 76 (units (unknown) date) 72 unknown) (unknown) (no (unknown) (unknown) Pulse Rate 92 H 80 (units (unknown) date) 77 unknown) (unknown) (no (unknown) (unknown) QTC 486 (units (unkno wn) date) unknown) (unknown) (no (unknown) (unknown) QTC 5 a 1 (units (unkn own) date) unknown) (unknown) (no (unknown) (unknown) RBC (4.5-5.9) (units ( unknown) date) X106/uL unknown) (unknown) (no (unknown) (unknown) RBC 5.02 (4.5-5.9) (units (unknown) date) X106/uL unknown) (unknown) (no (unknown) (unknown) RDW (11.6-14.8) % (units (unknown) date) unknown) (unknown) (no (unknown) (unknown) RDW 13.3 (units (unkno wn) date) (11.6-14.8) % unknown) (unknown) (no (unknown) (unknown) Radiologist's (units ( unknown) date) Impression: unknown) (unknown) (no (unknown) (unknown) Related Data (units (u nknown) date) unknown) (unknown) (no (unknown) (unknown) Relatively (units (unk nown) date) unchanged from unknown) initial EKG (unknown) (no (unknown) (unknown) Repeat EKG (units (unk nown) date) unknown) (unknown) (no (unknown) (unknown) Respiratory Rate (units (unknown) date) 18 19 18 unknown) (unknown) (no (unknown) (unknown) Respiratory Rate (units (unknown) date) 20 unknown) (unknown) (no (unknown) (unknown) Respiratory Rate (units (unknown) date) 22 05/27/22 13:06 unknown) (unknown) (no (unknown) (unknown) Respiratory Rate (units (unknown) date) 22 15 unknown) (unknown) (no (unknown) (unknown) Respiratory Rate (units (unknown) date) 27 H 28 H unknown) (unknown) (no (unknown) (unknown) Respiratory Rate (units (unknown) date) 28 H 38 H unknown) (unknown) (no (unknown) (unknown) Respiratory Rate (units (unknown) date) 28 H unknown) (unknown) (no (unknown) (unknown) Respiratory Rate (units (unknown) date) 29 H unknown) (unknown) (no (unknown) (unknown) Respiratory Rate (units (unknown) date) 33 H unknown) (unknown) (no (unknown) (unknown) Respiratory Rate (units (unknown) date) 41 H 19 unknown) (unknown) (no (unknown) (unknown) Respiratory Rate (units (unknown) date) 41 H 28 H 27 H unknown) (unknown) (no (unknown) (unknown) Respiratory Rate (units (unknown) date) 44 H 27 H unknown) (unknown) (no (unknown) (unknown) SARS-CoV-2 (PCR) (units (unknown) date) (Negative) unknown) (unknown) (no (unknown) (unknown) SARS-CoV-2 (PCR) (units (unknown) date) Negative (Negative) unknown) (unknown) (no (unknown) (unknown) Sennosides (units (unk nown) date) (Sennosides 8.6 Mg unknown) Tablet) 8.6 mg PO BID PRN (unknown) (no (unknown) (unknown) Signed By: (units (unk nown) date) unknown) (unknown) (no (unknown) (unknown) Sinus rhythm (units (u nknown) date) unknown) (unknown) (no (unknown) (unknown) Smoking Status: (units (unknown) date) Former smoker unknown) (unknown) (no (unknown) (unknown) Social History (units (unknown) date) (Updated 10/16/17 @ unknown) 05:32 by Gege Greenwood DO) (unknown) (no (unknown) (unknown) Sodium (137-145) (units (unknown) date) mmol/L unknown) (unknown) (no (unknown) (unknown) Sodium 132 L (units (u nknown) date) (137-145) mmol/L unknown) (unknown) (no (unknown) (unknown) Sodium 136 L (units (u nknown) date) (137-145) mmol/L unknown) (unknown) (no (unknown) (unknown) Sodium Chloride (units (unknown) date) (Normal Saline unknown) 0.9%) 1,000 mls @ 1,000 mls/hr IV BOLUS ONE (unknown) (no (unknown) (unknown) Sodium Chloride (units (unknown) date) (Normal Saline unknown) 0.9%) 1,000 mls @ 250 mls/hr IV CONT SRIDEVI (unknown) (no (unknown) (unknown) Source: patient (units (unknown) date) and EMS unknown) (unknown) (no (unknown) (unknown) Stated complaint: (units (unknown) date) chest pain/ n+v/ unknown) high glucose (unknown) (no (unknown) (unknown) Stop: 05/27/22 (units (unknown) date) 14:48 unknown) (unknown) (no (unknown) (unknown) Stop: 05/27/22 (units (unknown) date) 14:53 unknown) (unknown) (no (unknown) (unknown) Stop: 05/30/22 (units (unknown) date) 17:59 unknown) (unknown) (no (unknown) (unknown) Substance Use (units ( unknown) date) Type: marijuana unknown) (unknown) (no (unknown) (unknown) Surgical changes (units (unknown) date) and devices:? unknown) None.? (unknown) (no (unknown) (unknown) TECHNIQUE:? One (units (unknown) date) view of the chest unknown) was acquired.? (unknown) (no (unknown) (unknown) TITRATE SRIDEVI; (units (u nknown) date) Protocol unknown) (unknown) (no (unknown) (unknown) TSH (0.47-4.68) (units (unknown) date) uIU/mL unknown) (unknown) (no (unknown) (unknown) TSH 2.80 (units (unkno wn) date) (0.47-4.68) uIU/mL unknown) (unknown) (no (unknown) (unknown) Temperature 97.5 F (units (unknown) date) L 05/27/22 13:06 unknown) (unknown) (no (unknown) (unknown) Temperature 97.5 F (units (unknown) date) L unknown) (unknown) (no (unknown) (unknown) Temperature (units (un known) date) unknown) (unknown) (no (unknown) (unknown) Time Seen by (units (u nknown) date) Provider: 05/27/22 unknown) 13:38 (unknown) (no (unknown) (unknown) Total Bilirubin (units (unknown) date) (0.2-1.3) mg/dL unknown) (unknown) (no (unknown) (unknown) Total Bilirubin (units (unknown) date) 2.2 H (0.2-1.3) unknown) mg/dL (unknown) (no (unknown) (unknown) Total Bilirubin (units (unknown) date) 2.7 H (0.2-1.3) unknown) mg/dL (unknown) (no (unknown) (unknown) Total Creatine (units (unknown) date) Kinase (55-170) U/L unknown) (unknown) (no (unknown) (unknown) Total Creatine (units (unknown) date) Kinase 57 (55-170) unknown) U/L (unknown) (no (unknown) (unknown) Total Protein (units ( unknown) date) (6.3-8.2) g/dL unknown) (unknown) (no (unknown) (unknown) Total Protein 6.9 (units (unknown) date) (6.3-8.2) g/dL unknown) (unknown) (no (unknown) (unknown) Total Protein 7.8 (units (unknown) date) (6.3-8.2) g/dL unknown) (unknown) (no (unknown) (unknown) Troponin + CK (units ( unknown) date) Cardiac Panel Stat unknown) (unknown) (no (unknown) (unknown) Troponin I < 0.012 (units (unknown) date) (0.01-0.034) ng/mL unknown) (unknown) (no (unknown) (unknown) Troponin I (units (unk nown) date) (0.01-0.034) ng/mL unknown) (unknown) (no (unknown) (unknown) Troponin I Stat (units (unknown) date) unknown) (unknown) (no (unknown) (unknown) U Benzodiazepines (units (unknown) date) Scrn (Negative) unknown) (unknown) (no (unknown) (unknown) U Benzodiazepines (units (unknown) date) Scrn Negative unknown) (Negative) (unknown) (no (unknown) (unknown) U Marijuana (THC) (units (unknown) date) Screen (Negative) unknown) (unknown) (no (unknown) (unknown) U Marijuana (THC) (units (unknown) date) Screen Positive H unknown) (Negative) (unknown) (no (unknown) (unknown) U Methamphetamines (units (unknown) date) Scrn (Negative) unknown) (unknown) (no (unknown) (unknown) U Methamphetamines (units (unknown) date) Scrn Negative unknown) (Negative) (unknown) (no (unknown) (unknown) U Opiates 300ng/mL (units (unknown) date) cut (Negative) unknown) (unknown) (no (unknown) (unknown) U Opiates 300ng/mL (units (unknown) date) cut Negative unknown) (Negative) (unknown) (no (unknown) (unknown) U Tricyclic (units (un known) date) Antidepress unknown) (Negative) (unknown) (no (unknown) (unknown) U Tricyclic (units (un known) date) Antidepress unknown) Negative (Negative) (unknown) (no (unknown) (unknown) U-100 Insulin) (units (unknown) date) unknown) (unknown) (no (unknown) (unknown) Ur Amphetamines (units (unknown) date) Screen (Negative) unknown) (unknown) (no (unknown) (unknown) Ur Amphetamines (units (unknown) date) Screen Negative unknown) (Negative) (unknown) (no (unknown) (unknown) Ur Barbiturates (units (unknown) date) Screen (Negative) unknown) (unknown) (no (unknown) (unknown) Ur Barbiturates (units (unknown) date) Screen Negative unknown) (Negative) (unknown) (no (unknown) (unknown) Ur Culture (units (unk nown) date) Indicated? Cult not unknown) indicated (unknown) (no (unknown) (unknown) Ur Culture (units (unk nown) date) Indicated? unknown) (unknown) (no (unknown) (unknown) Ur Leukocyte (units (u nknown) date) Esterase (NEGATIVE) unknown) (unknown) (no (unknown) (unknown) Ur Leukocyte (units (u nknown) date) Esterase Negative unknown) (NEGATIVE) (unknown) (no (unknown) (unknown) Ur MDMA Scrn (units (u nknown) date) (Ecstasy) unknown) (Negative) (unknown) (no (unknown) (unknown) Ur MDMA Scrn (units (u nknown) date) (Ecstasy) Negative unknown) (Negative) (unknown) (no (unknown) (unknown) Ur Oxycodone (units (u nknown) date) Screen (Negative) unknown) (unknown) (no (unknown) (unknown) Ur Oxycodone (units (u nknown) date) Screen Negative unknown) (Negative) (unknown) (no (unknown) (unknown) Ur Phencyclidine (units (unknown) date) Scrn (Negative) unknown) (unknown) (no (unknown) (unknown) Ur Phencyclidine (units (unknown) date) Scrn Negative unknown) (Negative) (unknown) (no (unknown) (unknown) Ur Specific (units (un known) date) [place] unknown) (1.000-1.035) (unknown) (no (unknown) (unknown) Ur Specific (units (un known) date) [place] 1.010 unknown) (1.000-1.035) (unknown) (no (unknown) (unknown) Urinalysis and (units (unknown) date) Microscopic Stat unknown) (unknown) (no (unknown) (unknown) Urine Appearance (units (unknown) date) Clear unknown) (unknown) (no (unknown) (unknown) Urine Appearance (units (unknown) date) unknown) (unknown) (no (unknown) (unknown) Urine Bacteria (units (unknown) date) (None) unknown) (unknown) (no (unknown) (unknown) Urine Bacteria (units (unknown) date) None seen (None) unknown) (unknown) (no (unknown) (unknown) Urine Bilirubin (units (unknown) date) (NEGATIVE) unknown) (unknown) (no (unknown) (unknown) Urine Bilirubin (units (unknown) date) Negative (NEGATIVE) unknown) (unknown) (no (unknown) (unknown) Urine Cocaine (units ( unknown) date) Screen (Negative) unknown) (unknown) (no (unknown) (unknown) Urine Cocaine (units ( unknown) date) Screen Negative unknown) (Negative) (unknown) (no (unknown) (unknown) Urine Color Yellow (units (unknown) date) unknown) (unknown) (no (unknown) (unknown) Urine Color (units (un known) date) unknown) (unknown) (no (unknown) (unknown) Urine Culture Stat (units (unknown) date) unknown) (unknown) (no (unknown) (unknown) Urine Drug Screen, (units (unknown) date) Rapid Stat unknown) (unknown) (no (unknown) (unknown) Urine Glucose (UA) (units (unknown) date) (Negative) g/dL unknown) (unknown) (no (unknown) (unknown) Urine Glucose (UA) (units (unknown) date) 3+ H (Negative) unknown) g/dL (unknown) (no (unknown) (unknown) Urine Ketones (units ( unknown) date) (NEGATIVE) unknown) (unknown) (no (unknown) (unknown) Urine Ketones 3+ H (units (unknown) date) (NEGATIVE) unknown) (unknown) (no (unknown) (unknown) Urine Methadone (units (unknown) date) Screen (Negative) unknown) (unknown) (no (unknown) (unknown) Urine Methadone (units (unknown) date) Screen Negative unknown) (Negative) (unknown) (no (unknown) (unknown) Urine Nitrate (units ( unknown) date) (Negative) unknown) (unknown) (no (unknown) (unknown) Urine Nitrate (units ( unknown) date) Negative (Negative) unknown) (unknown) (no (unknown) (unknown) Urine Occult Blood (units (unknown) date) (Negative) unknown) (unknown) (no (unknown) (unknown) Urine Occult Blood (units (unknown) date) Negative (Negative) unknown) (unknown) (no (unknown) (unknown) Urine Protein (units ( unknown) date) (Negative) unknown) (unknown) (no (unknown) (unknown) Urine Protein (units ( unknown) date) Negative (Negative) unknown) (unknown) (no (unknown) (unknown) Urine RBC (units (unkn own) date) (0-5/HPF) unknown) (unknown) (no (unknown) (unknown) Urine RBC None (units (unknown) date) seen (0-5/HPF) unknown) (unknown) (no (unknown) (unknown) Urine Urobilinogen (units (unknown) date) (0.2) E.U./dL unknown) (unknown) (no (unknown) (unknown) Urine Urobilinogen (units (unknown) date) 0.2 (0.2) E.U./dL unknown) (unknown) (no (unknown) (unknown) Urine WBC (units (unkn own) date) (0-5/HPF) unknown) (unknown) (no (unknown) (unknown) Urine WBC None (units (unknown) date) seen (0-5/HPF) unknown) (unknown) (no (unknown) (unknown) Urine pH (4.5-8.0) (units (unknown) date) unknown) (unknown) (no (unknown) (unknown) Urine pH 6.0 (units (u nknown) date) (4.5-8.0) unknown) (unknown) (no (unknown) (unknown) VBG Base Excess (units (unknown) date) (0-4) mmol/L unknown) (unknown) (no (unknown) (unknown) VBG Base Excess (units (unknown) date) -11.0 L (0-4) unknown) mmol/L (unknown) (no (unknown) (unknown) VBG HCO3 (24-28) (units (unknown) date) mmol/L unknown) (unknown) (no (unknown) (unknown) VBG HCO3 15 L (units ( unknown) date) (24-28) mmol/L unknown) (unknown) (no (unknown) (unknown) VBG O2 Saturation (units (unknown) date) (70-75) % unknown) (unknown) (no (unknown) (unknown) VBG O2 Saturation (units (unknown) date) 46 L (70-75) % unknown) (unknown) (no (unknown) (unknown) VBG Total CO2 (units ( unknown) date) (24-29) mmol/L unknown) (unknown) (no (unknown) (unknown) VBG Total CO2 16 L (units (unknown) date) (24-29) mmol/L unknown) (unknown) (no (unknown) (unknown) VBG [Venous Blood (units (unknown) date) Gas] Stat unknown) (unknown) (no (unknown) (unknown) VBG pCO2 (45-50) (units (unknown) date) mmHg unknown) (unknown) (no (unknown) (unknown) VBG pCO2 26.7 L (units (unknown) date) (45-50) mmHg unknown) (unknown) (no (unknown) (unknown) VBG pH (7.33-7.43) (units (unknown) date) unknown) (unknown) (no (unknown) (unknown) VBG pH 7.35 (units (un known) date) (7.33-7.43) unknown) (unknown) (no (unknown) (unknown) VBG pO2 (35-45) (units (unknown) date) mmHg unknown) (unknown) (no (unknown) (unknown) VBG pO2 26 L (units (u nknown) date) (35-45) mmHg unknown) (unknown) (no (unknown) (unknown) Ventricular rate (units (unknown) date) is 73 unknown) (unknown) (no (unknown) (unknown) Ventricular rate (units (unknown) date) is 76 unknown) (unknown) (no (unknown) (unknown) Vital Signs - 8 hr (units (unknown) date) unknown) (unknown) (no (unknown) (unknown) Vital Signs (units (un known) date) unknown) (unknown) (no (unknown) (unknown) Vital signs: (units (u nknown) date) unknown) (unknown) (no (unknown) (unknown) WBC (4.5-11.0) (units (unknown) date) X103/uL unknown) (unknown) (no (unknown) (unknown) WBC 11.2 H (units (unk nown) date) (4.5-11.0) X103/uL unknown) (unknown) (no (unknown) (unknown) XR chest 1V Stat (units (unknown) date) unknown) (unknown) (no (unknown) (unknown) [Embedded Image (units (unknown) date) Not Available] unknown) (unknown) (no (unknown) (unknown) [From Novolog (units ( unknown) date) U-100 Insulin unknown) injection (unknown) (no (unknown) (unknown) alcohol intake (units (unknown) date) frequency: unknown) holidays/special occasions only (unknown) (no (unknown) (unknown) alcohol intake: (units (unknown) date) never unknown) (unknown) (no (unknown) (unknown) appear (units (unkno wn) date) unknown) (unknown) (no (unknown) (unknown) aspart] site (units (u nknown) date) unknown) (unknown) (no (unknown) (unknown) codeine [CODEINE] (units (unknown) date) Allergy Unknown unknown) Verified 05/27/22 13:06 (unknown) (no (unknown) (unknown) cyclobenzaprine 5 (units (unknown) date) mg tablet 5 mg PO unknown) TID PRN muscle spasm #10 10/16/17 (unknown) (no (unknown) (unknown) doxycycline (units (un known) date) [DOXYCYCLINE] unknown) Allergy Unknown Verified 05/27/22 13:06 (unknown) (no (unknown) (unknown) insulin aspart (units (unknown) date) Allergy Unknown unknown) Rash at Verified 05/27/22 13:20 (unknown) (no (unknown) (unknown) insulin lispro 100 (units (unknown) date) unit/mL 55 unit unknown) SLIDE ##0 08/30/10 (unknown) (no (unknown) (unknown) omeprazole (units (unk nown) date) [OMEPRAZOLE] unknown) Allergy Unknown Verified 05/27/22 13:06 (unknown) (no (unknown) (unknown) subcutaneous (units (u nknown) date) solution (Humalog unknown) (unknown) (no (unknown) (unknown) substance use (units ( unknown) date) type: does not use unknown) (unknown) (no (unknown) (unknown) tabs (units (unkno wn) date) unknown) (unknown) (no (unknown) (unknown) unremarkable.? (units (unknown) date) unknown) Result panel 298 (unknown) (no (unknown) (unknown) (no value) (units (unk nown) date) unknown) (unknown) (no (unknown) (unknown) <Electronically (units (unknown) date) signed by Dalton Graff D.O.> (unknown) (no (unknown) (unknown) 05/27/22 05/27/22 (units (unknown) date) 05/27/22 unknown) Range/Units (unknown) (no (unknown) (unknown) 05/27/22 12:55 (units (unknown) date) unknown) (unknown) (no (unknown) (unknown) 05/27/22 13:08 (units (unknown) date) unknown) (unknown) (no (unknown) (unknown) 05/27/22 13:09 (units (unknown) date) unknown) (unknown) (no (unknown) (unknown) 05/27/22 13:50 (units (unknown) date) unknown) (unknown) (no (unknown) (unknown) 05/27/22 13:53 (units (unknown) date) unknown) (unknown) (no (unknown) (unknown) 05/27/22 14:15 (units (unknown) date) unknown) (unknown) (no (unknown) (unknown) 05/27/22 14:30 (units (unknown) date) unknown) (unknown) (no (unknown) (unknown) 05/27/22 14:40 (units (unknown) date) unknown) (unknown) (no (unknown) (unknown) 05/27/22 15:12 (units (unknown) date) unknown) (unknown) (no (unknown) (unknown) 05/27/22 16:28 (units (unknown) date) unknown) (unknown) (no (unknown) (unknown) 05/27/22 16:50 (units (unknown) date) unknown) (unknown) (no (unknown) (unknown) 05/27/22 1929 (units ( unknown) date) unknown) (unknown) (no (unknown) (unknown) 05/27/22 (units (unkno wn) date) unknown) (unknown) (no (unknown) (unknown) 12:55 13:50 13:50 (units (unknown) date) unknown) (unknown) (no (unknown) (unknown) 13:06 05/27/22 (units (unknown) date) unknown) (unknown) (no (unknown) (unknown) 13:37 05/27/22 (units (unknown) date) unknown) (unknown) (no (unknown) (unknown) 13:37 (units (unkno wn) date) unknown) (unknown) (no (unknown) (unknown) 13:40 05/27/22 (units (unknown) date) unknown) (unknown) (no (unknown) (unknown) 13:45 05/27/22 (units (unknown) date) unknown) (unknown) (no (unknown) (unknown) 13:45 (units (unkno wn) date) unknown) (unknown) (no (unknown) (unknown) 13:50 13:50 13:50 (units (unknown) date) unknown) (unknown) (no (unknown) (unknown) 13:55 03/13/23 (units (unknown) date) unknown) (unknown) (no (unknown) (unknown) 13:55 (units (unkno wn) date) unknown) (unknown) (no (unknown) (unknown) 14:00 05/27/22 (units (unknown) date) unknown) (unknown) (no (unknown) (unknown) 14:05 05/27/22 (units (unknown) date) unknown) (unknown) (no (unknown) (unknown) 14:05 (units (unkno wn) date) unknown) (unknown) (no (unknown) (unknown) 14:10 05/27/22 (units (unknown) date) unknown) (unknown) (no (unknown) (unknown) 14:10 (units (unkno wn) date) unknown) (unknown) (no (unknown) (unknown) 14:15 05/27/22 (units (unknown) date) unknown) (unknown) (no (unknown) (unknown) 14:15 14:40 14:40 (units (unknown) date) unknown) (unknown) (no (unknown) (unknown) 14:20 05/27/22 (units (unknown) date) unknown) (unknown) (no (unknown) (unknown) 14:20 (units (unkno wn) date) unknown) (unknown) (no (unknown) (unknown) 14:28 05/27/22 (units (unknown) date) unknown) (unknown) (no (unknown) (unknown) 14:28 (units (unkno wn) date) unknown) (unknown) (no (unknown) (unknown) 14:30 05/27/22 (units (unknown) date) unknown) (unknown) (no (unknown) (unknown) 14:41 05/27/22 (units (unknown) date) unknown) (unknown) (no (unknown) (unknown) 14:41 (units (unkno wn) date) unknown) (unknown) (no (unknown) (unknown) 14:45 05/27/22 (units (unknown) date) unknown) (unknown) (no (unknown) (unknown) 15:00 05/27/22 (units (unknown) date) unknown) (unknown) (no (unknown) (unknown) 15:00 (units (unkno wn) date) unknown) (unknown) (no (unknown) (unknown) 15:12 16:28 16:50 (units (unknown) date) unknown) (unknown) (no (unknown) (unknown) 15:30 05/27/22 (units (unknown) date) unknown) (unknown) (no (unknown) (unknown) 16:00 (units (unkno wn) date) unknown) (unknown) (no (unknown) (unknown) 16:30 05/27/22 (units (unknown) date) unknown) (unknown) (no (unknown) (unknown) 17:00 05/27/22 (units (unknown) date) unknown) (unknown) (no (unknown) (unknown) 17:30 (units (unkno wn) date) unknown) (unknown) (no (unknown) (unknown) 6599 (units (unkno wn) date) unknown) (unknown) (no (unknown) (unknown) ? (units (unkno wn) date) unknown) (unknown) (no (unknown) (unknown) ABG Base Excess (units (unknown) date) (-2-3) mmol/L unknown) (unknown) (no (unknown) (unknown) ABG Base Excess (units (unknown) date) -15.0 L (-2-3) unknown) mmol/L (unknown) (no (unknown) (unknown) ABG HCO3 (23-27) (units (unknown) date) mmol/L unknown) (unknown) (no (unknown) (unknown) ABG HCO3 12 L (units ( unknown) date) (23-27) mmol/L unknown) (unknown) (no (unknown) (unknown) ABG O2 Saturation (units (unknown) date) (95-100) % unknown) (unknown) (no (unknown) (unknown) ABG O2 Saturation (units (unknown) date) 97 (95-100) % unknown) (unknown) (no (unknown) (unknown) ABG Total CO2 (units ( unknown) date) (23-27) mmol/L unknown) (unknown) (no (unknown) (unknown) ABG Total CO2 12 L (units (unknown) date) (23-27) mmol/L unknown) (unknown) (no (unknown) (unknown) ABG pCO2 (35-45) (units (unknown) date) mmHg unknown) (unknown) (no (unknown) (unknown) ABG pCO2 24.9 L* (units (unknown) date) (35-45) mmHg unknown) (unknown) (no (unknown) (unknown) ABG pH (7.35-7.45) (units (unknown) date) unknown) (unknown) (no (unknown) (unknown) ABG pH 7.27 L* (units (unknown) date) (7.35-7.45) unknown) (unknown) (no (unknown) (unknown) ABG pO2 (80-100) (units (unknown) date) mmHg unknown) (unknown) (no (unknown) (unknown) ABG pO2 99 (units (unk nown) date) (80-100) mmHg unknown) (unknown) (no (unknown) (unknown) ALT (<50) IU/L (units (unknown) date) unknown) (unknown) (no (unknown) (unknown) ALT 40 (<50) IU/L (units (unknown) date) unknown) (unknown) (no (unknown) (unknown) ALT 44 (<50) IU/L (units (unknown) date) unknown) (unknown) (no (unknown) (unknown) AST (17-59) IU/L (units (unknown) date) unknown) (unknown) (no (unknown) (unknown) AST 27 (17-59) (units (unknown) date) IU/L unknown) (unknown) (no (unknown) (unknown) AST 30 (17-59) (units (unknown) date) IU/L unknown) (unknown) (no (unknown) (unknown) Acetaminophen (units ( unknown) date) (Acetaminophen 325 unknown) Mg Tablet) 650 mg PO Q6H PRN (unknown) (no (unknown) (unknown) Admin: 05/27/22 (units (unknown) date) 14:07 Dose: 1,000 unknown) mls/hr (unknown) (no (unknown) (unknown) Admin: 05/27/22 (units (unknown) date) 15:00 Dose: 250 unknown) mls/hr (unknown) (no (unknown) (unknown) Admin: 05/27/22 (units (unknown) date) 15:26 Dose: 6 unknown) mls/hr, 6 mls/hr (unknown) (no (unknown) (unknown) Age/Sex: 56 / M (units (unknown) date) unknown) (unknown) (no (unknown) (unknown) Albumin (3.5-5.0) (units (unknown) date) g/dL unknown) (unknown) (no (unknown) (unknown) Albumin 4.1 (units (un known) date) (3.5-5.0) g/dL unknown) (unknown) (no (unknown) (unknown) Albumin 4.7 (units (un known) date) (3.5-5.0) g/dL unknown) (unknown) (no (unknown) (unknown) Albumin/Globulin (units (unknown) date) Ratio (1.0-2.8) unknown) (unknown) (no (unknown) (unknown) Albumin/Globulin (units (unknown) date) Ratio 1.5 (1.0-2.8) unknown) (unknown) (no (unknown) (unknown) Alkaline (units (unkno wn) date) Phosphatase unknown) (38-126) U/L (unknown) (no (unknown) (unknown) Alkaline (units (unkno wn) date) Phosphatase 104 unknown) (38-126) U/L (unknown) (no (unknown) (unknown) Alkaline (units (unkno wn) date) Phosphatase 79 unknown) (38-126) U/L (unknown) (no (unknown) (unknown) Allergies (units (unkn own) date) unknown) (unknown) (no (unknown) (unknown) Allergy/AdvReac (units (unknown) date) Type Severity unknown) Reaction Status Date / Time (unknown) (no (unknown) (unknown) Amorphous Sediment (units (unknown) date) 1 unknown) (unknown) (no (unknown) (unknown) Amorphous Sediment (units (unknown) date) unknown) (unknown) (no (unknown) (unknown) Appearance: (units (un known) date) disheveled unknown) (unknown) (no (unknown) (unknown) Arterial Blood Gas (units (unknown) date) Stat unknown) (unknown) (no (unknown) (unknown) Attestation: I (units (unknown) date) personally reviewed unknown) and interpreted this ECG as follows: (unknown) (no (unknown) (unknown) Attestation: (units (u nknown) date) unknown) (unknown) (no (unknown) (unknown) Auscultation: (units ( unknown) date) clear to unknown) auscultation bilaterally (unknown) (no (unknown) (unknown) BUN (9-20) mg/dL (units (unknown) date) unknown) (unknown) (no (unknown) (unknown) BUN 23 H (9-20) (units (unknown) date) mg/dL unknown) (unknown) (no (unknown) (unknown) BUN 24 H (9-20) (units (unknown) date) mg/dL unknown) (unknown) (no (unknown) (unknown) BUN/Creatinine (units (unknown) date) Ratio (6-22) unknown) (unknown) (no (unknown) (unknown) BUN/Creatinine (units (unknown) date) Ratio 20.0 (6-22) unknown) (unknown) (no (unknown) (unknown) BUN/Creatinine (units (unknown) date) Ratio 21.4 (6-22) unknown) (unknown) (no (unknown) (unknown) Baso # (Auto) (units ( unknown) date) (0-100) /uL unknown) (unknown) (no (unknown) (unknown) Baso # (Auto) 100 (units (unknown) date) (0-100) /uL unknown) (unknown) (no (unknown) (unknown) Baso % (Auto) (units ( unknown) date) (0-2) % unknown) (unknown) (no (unknown) (unknown) Baso % (Auto) 0.5 (units (unknown) date) (0-2) % unknown) (unknown) (no (unknown) (unknown) Blood Culture Stat (units (unknown) date) unknown) (unknown) (no (unknown) (unknown) Blood Pressure (units (unknown) date) 121/58 L unknown) (unknown) (no (unknown) (unknown) Blood Pressure (units (unknown) date) 123/62 unknown) (unknown) (no (unknown) (unknown) Blood Pressure (units (unknown) date) 128/58 L unknown) (unknown) (no (unknown) (unknown) Blood Pressure (units (unknown) date) 133/61 152/61 H unknown) (unknown) (no (unknown) (unknown) Blood Pressure (units (unknown) date) 139/63 141/97 H unknown) (unknown) (no (unknown) (unknown) Blood Pressure (units (unknown) date) 140/61 108/53 L unknown) (unknown) (no (unknown) (unknown) Blood Pressure (units (unknown) date) 142/87 H unknown) (unknown) (no (unknown) (unknown) Blood Pressure (units (unknown) date) 144/58 H 148/67 H unknown) (unknown) (no (unknown) (unknown) Blood Pressure (units (unknown) date) 148/69 H 05/27/22 unknown) 13:06 (unknown) (no (unknown) (unknown) Blood Pressure (units (unknown) date) 148/69 H 129/63 unknown) (unknown) (no (unknown) (unknown) Blood Pressure (units (unknown) date) unknown) (unknown) (no (unknown) (unknown) Bones and chest (units (unknown) date) wall:? No unknown) suspicious bony lesions.? Overlying soft tissues (unknown) (no (unknown) (unknown) CK-MB (CK-2) Rel (units (unknown) date) Index TNP unknown) (unknown) (no (unknown) (unknown) CK-MB (CK-2) Rel (units (unknown) date) Index unknown) (unknown) (no (unknown) (unknown) CK-MB (CK-2) TNP (units (unknown) date) unknown) (unknown) (no (unknown) (unknown) CK-MB (CK-2) (units (u nknown) date) unknown) (unknown) (no (unknown) (unknown) CMP [Comprehensive (units (unknown) date) Metabolic Panel] unknown) Stat (unknown) (no (unknown) (unknown) COMPARISON:? (units (u nknown) date) [facility], unknown) CR, CHEST 1 VIEW, 06/20/2016, 20:50. (unknown) (no (unknown) (unknown) COVID19 -Nasal (units (unknown) date) RAPID Stat unknown) (unknown) (no (unknown) (unknown) Calcium (8.4-10.2) (units (unknown) date) mg/dL unknown) (unknown) (no (unknown) (unknown) Calcium 8.8 (units (un known) date) (8.4-10.2) mg/dL unknown) (unknown) (no (unknown) (unknown) Calcium 9.7 (units (un known) date) (8.4-10.2) mg/dL unknown) (unknown) (no (unknown) (unknown) Carbon Dioxide (units (unknown) date) (22-32) mmol/L unknown) (unknown) (no (unknown) (unknown) Carbon Dioxide 12 (units (unknown) date) L (22-32) mmol/L unknown) (unknown) (no (unknown) (unknown) Carbon Dioxide 8 (units (unknown) date) L* (22-32) mmol/L unknown) (unknown) (no (unknown) (unknown) Cardio (units (unkno wn) date) unknown) (unknown) (no (unknown) (unknown) Ceftriaxone Sodium (units (unknown) date) 1,000 mg/ (Sodium unknown) Chloride) 100 mls @ 200 mls/hr IV Q24H SRIDEVI (unknown) (no (unknown) (unknown) Chest x-ray: (units (u nknown) date) unknown) (unknown) (no (unknown) (unknown) Chief complaint: (units (unknown) date) Diabetic Problem unknown) (unknown) (no (unknown) (unknown) Chloride (98-107) (units (unknown) date) mmol/L unknown) (unknown) (no (unknown) (unknown) Chloride 103 (units (u nknown) date) (98-107) mmol/L unknown) (unknown) (no (unknown) (unknown) Chloride 94 L (units ( unknown) date) (98-107) mmol/L unknown) (unknown) (no (unknown) (unknown) Clinical (units (unkno wn) date) Impression: unknown) (unknown) (no (unknown) (unknown) Complete Blood (units (unknown) date) Count AUTO DIFF unknown) Stat (unknown) (no (unknown) (unknown) Comprehensive (units ( unknown) date) Metabolic Panel unknown) Stat (unknown) (no (unknown) (unknown) Const (units (unkno wn) date) unknown) (unknown) (no (unknown) (unknown) 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 WORD 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 - (units (unknown) date) 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 Technician unknown) Stat (unknown) (no (unknown) (unknown) Course (units (unkno wn) date) unknown) (unknown) (no (unknown) (unknown) Creatinine (units (unk nown) date) (0.66-1.25) mg/dL unknown) (unknown) (no (unknown) (unknown) Creatinine 1.12 (units (unknown) date) (0.66-1.25) mg/dL unknown) (unknown) (no (unknown) (unknown) Creatinine 1.15 (units (unknown) date) (0.66-1.25) mg/dL unknown) (unknown) (no (unknown) (unknown) Critical Care Time (units (unknown) date) unknown) (unknown) (no (unknown) (unknown) Critical Care (units ( unknown) date) Time: Yes unknown) (unknown) (no (unknown) (unknown) : 1965 (units (unknown) date) Acct:[id number] unknown) (unknown) (no (unknown) (unknown) Date of Service: (units (unknown) date) 05/27/22 unknown) (unknown) (no (unknown) (unknown) Departure (units (unkn own) date) unknown) (unknown) (no (unknown) (unknown) Discharge Plan (units (unknown) date) unknown) (unknown) (no (unknown) (unknown) Discontinued (units (u nknown) date) Medications unknown) (unknown) (no (unknown) (unknown) Documented By: OWEN (units (unknown) date) Co-signed By: ARELY unknown) (unknown) (no (unknown) (unknown) Documented By: KM (units (unknown) date) Co-signed By: AVIVA unknown) (unknown) (no (unknown) (unknown) Documented By: KM (units (unknown) date) unknown) (unknown) (no (unknown) (unknown) ECG Data (units (unkno wn) date) unknown) (unknown) (no (unknown) (unknown) ED Orders (units (unkn own) date) unknown) (unknown) (no (unknown) (unknown) EKG-12 Lead Stat (units (unknown) date) unknown) (unknown) (no (unknown) (unknown) ER Physician: (units ( unknown) date) Dalton Graff D.O. unknown) (unknown) (no (unknown) (unknown) ETOH [Ethanol (units ( unknown) date) (ETOH)] Stat unknown) (unknown) (no (unknown) (unknown) Effort + (units (unkno wn) date) Inspection: normal unknown) respiratory effort and tachypneic (unknown) (no (unknown) (unknown) Emergency Report (units (unknown) date) unknown) (unknown) (no (unknown) (unknown) Eos # (Auto) (units (u nknown) date) (0-450) /uL unknown) (unknown) (no (unknown) (unknown) Eos # (Auto) 0 (units (unknown) date) (0-450) /uL unknown) (unknown) (no (unknown) (unknown) Eos % (Auto) (2-4) (units (unknown) date) % unknown) (unknown) (no (unknown) (unknown) Eos % (Auto) 0.1 L (units (unknown) date) (2-4) % unknown) (unknown) (no (unknown) (unknown) Estimated GFR > 60 (units (unknown) date) (>60) mL/min unknown) (unknown) (no (unknown) (unknown) Estimated GFR (units ( unknown) date) (>60) mL/min unknown) (unknown) (no (unknown) (unknown) Ethyl Alcohol < 10 (units (unknown) date) ( - 10) mg/dL unknown) (unknown) (no (unknown) (unknown) Ethyl Alcohol ( - (units (unknown) date) 10) mg/dL unknown) (unknown) (no (unknown) (unknown) Exam (units (unkno wn) date) unknown) (unknown) (no (unknown) (unknown) Extrem (units (unkno wn) date) unknown) (unknown) (no (unknown) (unknown) FINDINGS:? (units (unk nown) date) unknown) (unknown) (no (unknown) (unknown) FiO2 21 (units (unkno wn) date) unknown) (unknown) (no (unknown) (unknown) FiO2 (units (unkno wn) date) unknown) (unknown) (no (unknown) (unknown) GCS (units (unkno wn) date) unknown) (unknown) (no (unknown) (unknown) GI (units (unkno wn) date) unknown) (unknown) (no (unknown) (unknown) General (units (unkno wn) date) unknown) (unknown) (no (unknown) (unknown) General: capillary (units (unknown) date) refill normal and unknown) No edema (unknown) (no (unknown) (unknown) General: (units (unkno wn) date) diaphoretic and ill unknown) appearing (unknown) (no (unknown) (unknown) General: no rashes (units (unknown) date) or lesions noted unknown) (unknown) (no (unknown) (unknown) General: patient (units (unknown) date) alert, patient unknown) awake and moves all extremities (unknown) (no (unknown) (unknown) Compton coma scale (units (unknown) date) eye opening: unknown) Spontaneous (unknown) (no (unknown) (unknown) Mario coma scale (units (unknown) date) motor response: unknown) Obey commands (unknown) (no (unknown) (unknown) Mario coma scale (units (unknown) date) total score: 14 unknown) (unknown) (no (unknown) (unknown) Mario coma scale (units (unknown) date) verbal response: unknown) Confused (unknown) (no (unknown) (unknown) Globulin (1.7-4.1) (units (unknown) date) g/dL unknown) (unknown) (no (unknown) (unknown) Globulin 2.8 (units (u nknown) date) (1.7-4.1) g/dL unknown) (unknown) (no (unknown) (unknown) Globulin 3.1 (units (u nknown) date) (1.7-4.1) g/dL unknown) (unknown) (no (unknown) (unknown) Glucose (70-100) (units (unknown) date) mg/dL unknown) (unknown) (no (unknown) (unknown) Glucose 532 H* (units (unknown) date) (70-100) mg/dL unknown) (unknown) (no (unknown) (unknown) Glucose 731 H* (units (unknown) date) (70-100) mg/dL unknown) (unknown) (no (unknown) (unknown) Glucose POC 367 (units (unknown) date) unknown) (unknown) (no (unknown) (unknown) HENMT (units (unkno wn) date) unknown) (unknown) (no (unknown) (unknown) HPI - General (units ( unknown) date) Adult unknown) (unknown) (no (unknown) (unknown) HPI narrative: (units (unknown) date) unknown) (unknown) (no (unknown) (unknown) Hct (41-53) % (units ( unknown) date) unknown) (unknown) (no (unknown) (unknown) Hct 44.7 (41-53) % (units (unknown) date) unknown) (unknown) (no (unknown) (unknown) Head: normal to (units (unknown) date) inspection and unknown) normocephalic (unknown) (no (unknown) (unknown) Heart failure, (units (unknown) date) Hypoxia, Back pain unknown) (unknown) (no (unknown) (unknown) Hemoglobin A1c (units (unknown) date) (4.0-6.0) % unknown) (unknown) (no (unknown) (unknown) Hemoglobin A1c 9.5 (units (unknown) date) H (4.0-6.0) % unknown) (unknown) (no (unknown) (unknown) Hgb (13.5-17.5) (units (unknown) date) g/dL unknown) (unknown) (no (unknown) (unknown) Hgb 14.9 (units (unkno wn) date) (13.5-17.5) g/dL unknown) (unknown) (no (unknown) (unknown) History of Present (units (unknown) date) Illness unknown) (unknown) (no (unknown) (unknown) Home Medications (units (unknown) date) unknown) (unknown) (no (unknown) (unknown) IMPRESSION:? No (units (unknown) date) acute unknown) cardiopulmonary disease. (unknown) (no (unknown) (unknown) INDICATIONS:? (units ( unknown) date) chest pain unknown) (unknown) (no (unknown) (unknown) INSULIN DRIP (units (u nknown) date) PREMIX (Myxredlin unknown) Drip Premix) 100 unit in 100 mls @ 6 mls/hr IV (unknown) (no (unknown) (unknown) Ibuprofen (units (unkn own) date) (Ibuprofen 600 Mg unknown) Tablet) 800 mg PO Q6H PRN (unknown) (no (unknown) (unknown) Imaging Data (units (u nknown) date) unknown) (unknown) (no (unknown) (unknown) Initial EKG (units (un known) date) unknown) (unknown) (no (unknown) (unknown) Initial Vital (units ( unknown) date) Signs unknown) (unknown) (no (unknown) (unknown) Initial Vital (units ( unknown) date) Signs: unknown) (unknown) (no (unknown) (unknown) Inspection: normal (units (unknown) date) to inspection and unknown) non-distended (unknown) (no (unknown) (unknown) 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 unknown) (unknown) (no (unknown) (unknown) Interpretation: (units (unknown) date) unknown) (unknown) (no (unknown) (unknown) [facility] (units (unknown) date) [address] unknown) [place] [address] (unknown) (no (unknown) (unknown) Ketones (<0.27) (units (unknown) date) mmol/L unknown) (unknown) (no (unknown) (unknown) Ketones (units (unkno wn) date) (Beta-Hydroxybutyra unknown) te) Stat (unknown) (no (unknown) (unknown) Ketones 6.46 H (units (unknown) date) (<0.27) mmol/L unknown) (unknown) (no (unknown) (unknown) Lab Data (units (unkno wn) date) unknown) (unknown) (no (unknown) (unknown) Lab Results (units (un known) date) unknown) (unknown) (no (unknown) (unknown) Lab results (units (un known) date) reviewed: Yes I unknown) reviewed the patient's lab results. (unknown) (no (unknown) (unknown) Labs: (units (unkno wn) date) unknown) (unknown) (no (unknown) (unknown) Last Admin: (units (un known) date) 05/27/22 14:06 unknown) Dose: 4 mg (unknown) (no (unknown) (unknown) Last Admin: (units (un known) date) 05/27/22 15:00 unknown) Dose: 10 mg (unknown) (no (unknown) (unknown) Last Infusion: (units (unknown) date) 05/27/22 15:04 unknown) Dose: 0 mls/hr (unknown) (no (unknown) (unknown) Last Infusion: (units (unknown) date) 05/27/22 18:49 unknown) Dose: 0 mls/hr (unknown) (no (unknown) (unknown) Last Titration: (units (unknown) date) 05/27/22 15:44 unknown) Dose: 12 mls/hr, 12 mls/hr (unknown) (no (unknown) (unknown) Lipase (23-300) (units (unknown) date) U/L unknown) (unknown) (no (unknown) (unknown) Lipase 62 (23-300) (units (unknown) date) U/L unknown) (unknown) (no (unknown) (unknown) Lipase Stat (units (un known) date) unknown) (unknown) (no (unknown) (unknown) Low suspicion for (units (unknown) date) CVA. His troponins unknown) are negative x2. Patient does not have (unknown) (no (unknown) (unknown) Lungs and pleura:? (units (unknown) date) Lungs are clear.? unknown) No pleural effusions or pneumothorax.? (unknown) (no (unknown) (unknown) Lymph # (Auto) (units (unknown) date) (9103-0921) /uL unknown) (unknown) (no (unknown) (unknown) Lymph # (Auto) 700 (units (unknown) date) L (3459-4874) /uL unknown) (unknown) (no (unknown) (unknown) Lymph % (Auto) (units (unknown) date) (25-40) % unknown) (unknown) (no (unknown) (unknown) Lymph % (Auto) 6.4 (units (unknown) date) L (25-40) % unknown) (unknown) (no (unknown) (unknown) MCH (26-34) PG (units (unknown) date) unknown) (unknown) (no (unknown) (unknown) MCH 29.7 (26-34) (units (unknown) date) PG unknown) (unknown) (no (unknown) (unknown) MCHC (30-36) % (units (unknown) date) unknown) (unknown) (no (unknown) (unknown) MCHC 33.3 (30-36) (units (unknown) date) % unknown) (unknown) (no (unknown) (unknown) MCV (80-100) fL (units (unknown) date) unknown) (unknown) (no (unknown) (unknown) MCV 89.1 (80-100) (units (unknown) date) fL unknown) (unknown) (no (unknown) (unknown) MDM Narrative (units ( unknown) date) unknown) (unknown) (no (unknown) (unknown) Magnesium (units (unkn own) date) (1.6-2.3) mg/dL unknown) (unknown) (no (unknown) (unknown) Magnesium 1.8 (units ( unknown) date) (1.6-2.3) mg/dL unknown) (unknown) (no (unknown) (unknown) Magnesium Stat (units (unknown) date) unknown) (unknown) (no (unknown) (unknown) Mediastinum:? (units ( unknown) date) Mediastinal unknown) contours appear normal.? Heart size is normal.? (unknown) (no (unknown) (unknown) Medical Decision (units (unknown) date) Making unknown) (unknown) (no (unknown) (unknown) Medical History (units (unknown) date) (Reviewed 05/27/22 unknown) @ 19:26 by Dalton Graff DO) (unknown) (no (unknown) (unknown) Medical Records (units (unknown) date) unknown) (unknown) (no (unknown) (unknown) Medical decision (units (unknown) date) making narrative: unknown) (unknown) (no (unknown) (unknown) Medical records (units (unknown) date) reviewed: Yes I unknown) reviewed the patient's medical records. (unknown) (no (unknown) (unknown) Medication (units (unk nown) date) Instructions unknown) Recorded Confirmed (unknown) (no (unknown) (unknown) Medication (units (unk nown) date) Instructions unknown) Recorded (unknown) (no (unknown) (unknown) Melatonin (units (unkn own) date) (Melatonin 3 Mg unknown) Tablet) 6 mg PO BEDTIME PRN (unknown) (no (unknown) (unknown) Metoclopramide HCl (units (unknown) date) (Metoclopramide 10 unknown) Mg/2 Ml Inj) 10 mg IV NOW ONE (unknown) (no (unknown) (unknown) Metronidazole (units ( unknown) date) (Metronidazole 500 unknown) Mg Tablet) 500 mg PO TID SRIDEVI (unknown) (no (unknown) (unknown) Mode of arrival: (units (unknown) date) EMS unknown) (unknown) (no (unknown) (unknown) [place] # (Auto) (units ( unknown) date) (0-900) /uL unknown) (unknown) (no (unknown) (unknown) [place] # (Auto) 300 (units (unknown) date) (0-900) /uL unknown) (unknown) (no (unknown) (unknown) [place] % (Auto) (units ( unknown) date) (3-14) % unknown) (unknown) (no (unknown) (unknown) [place] % (Auto) 2.7 (units (unknown) date) L (3-14) % unknown) (unknown) (no (unknown) (unknown) Naloxone HCl (units (u nknown) date) (Naloxone 0.4 Mg/Ml unknown) Vial) 0.2 mg IV Q2MIN PRN (unknown) (no (unknown) (unknown) Neuro (units (unkno wn) date) unknown) (unknown) (no (unknown) (unknown) Neut # (Auto) (units ( unknown) date) (8612-7063) /uL unknown) (unknown) (no (unknown) (unknown) Neut # (Auto) (units ( unknown) date) 19949 H (2385-1986) unknown) /uL (unknown) (no (unknown) (unknown) Neut % (Auto) (units ( unknown) date) (50-75) % unknown) (unknown) (no (unknown) (unknown) Neut % (Auto) 90.3 (units (unknown) date) H (50-75) % unknown) (unknown) (no (unknown) (unknown) No ST T wave (units (u nknown) date) changes unknown) (unknown) (no (unknown) (unknown) Normal QRS (units (unk nown) date) unknown) (unknown) (no (unknown) (unknown) Normal axis (units (un known) date) unknown) (unknown) (no (unknown) (unknown) Ondansetron HCl (units (unknown) date) (Ondansetron 4 Mg unknown) Odt) 4 mg SL NOW PRN (unknown) (no (unknown) (unknown) Ondansetron HCl (units (unknown) date) (Ondansetron 4 Mg/2 unknown) Ml Inj) 4 mg IV NOW PRN (unknown) (no (unknown) (unknown) Ordered: (units (unkno wn) date) unknown) (unknown) (no (unknown) (unknown) Orders (units (unkno wn) date) unknown) (unknown) (no (unknown) (unknown) Oxygen Delivery (units (unknown) date) Method Room Air unknown) 05/27/22 13:06 (unknown) (no (unknown) (unknown) Oxygen Delivery (units (unknown) date) Method Room Air unknown) (unknown) (no (unknown) (unknown) Oxygen Delivery (units (unknown) date) Method unknown) (unknown) (no (unknown) (unknown) PRN Reason: (units (un known) date) Constipation unknown) (unknown) (no (unknown) (unknown) PRN Reason: (units (un known) date) Fever/Mild Pain unknown) (1-3) (unknown) (no (unknown) (unknown) PRN Reason: (units (un known) date) Insomnia unknown) (unknown) (no (unknown) (unknown) PRN Reason: Nausea (units (unknown) date) And Vomiting unknown) (unknown) (no (unknown) (unknown) PRN Reason: Opiate (units (unknown) date) Reversal unknown) (unknown) (no (unknown) (unknown) PRN (units (unkno wn) date) unknown) (unknown) (no (unknown) (unknown) PROCEDURE:? XR (units (unknown) date) CHEST 1V unknown) (unknown) (no (unknown) (unknown) Patient (units (unkno wn) date) Disposition: Home unknown) (unknown) (no (unknown) (unknown) Patient History (units (unknown) date) unknown) (unknown) (no (unknown) (unknown) Patient is a (units (u nknown) date) 56-year-old male. unknown) History of insulin-dependent diabetes. Does (unknown) (no (unknown) (unknown) Patient is in DKA (units (unknown) date) with an anion gap unknown) of 26. Hyperglycemic. His vomiting. No (unknown) (no (unknown) (unknown) Patient: (units (unkno wn) date) Ed Meredith MR#: unknown) [id number] (unknown) (no (unknown) (unknown) Phosphorous Stat (units (unknown) date) unknown) (unknown) (no (unknown) (unknown) Phosphorus (units (unk nown) date) (2.5-4.5) mg/dL unknown) (unknown) (no (unknown) (unknown) Phosphorus 3.6 (units (unknown) date) (2.5-4.5) mg/dL unknown) (unknown) (no (unknown) (unknown) Plt Count (units (unkn own) date) (150-400) X103/uL unknown) (unknown) (no (unknown) (unknown) Plt Count 243 (units ( unknown) date) (150-400) X103/uL unknown) (unknown) (no (unknown) (unknown) Point of Care (units ( unknown) date) Testing unknown) (unknown) (no (unknown) (unknown) Point of care (units ( unknown) date) testing: unknown) (unknown) (no (unknown) (unknown) Polyethylene (units (u nknown) date) Glycol unknown) (Polyethylene Glycol 3350 17 Gm Powd.Pack) 17 gm PO DAILY (unknown) (no (unknown) (unknown) Potassium (units (unkn own) date) (3.4-5.1) mmol/L unknown) (unknown) (no (unknown) (unknown) Potassium 4.4 (units ( unknown) date) (3.4-5.1) mmol/L unknown) (unknown) (no (unknown) (unknown) Potassium 5.0 (units ( unknown) date) (3.4-5.1) mmol/L unknown) (unknown) (no (unknown) (unknown) Previous Rx's (units ( unknown) date) unknown) (unknown) (no (unknown) (unknown) Psych (units (unkno wn) date) unknown) (unknown) (no (unknown) (unknown) Pulse Oximetry 100 (units (unknown) date) 05/27/22 13:06 unknown) (unknown) (no (unknown) (unknown) Pulse Oximetry 100 (units (unknown) date) 100 99 unknown) (unknown) (no (unknown) (unknown) Pulse Oximetry 100 (units (unknown) date) 100 unknown) (unknown) (no (unknown) (unknown) Pulse Oximetry 100 (units (unknown) date) unknown) (unknown) (no (unknown) (unknown) Pulse Oximetry 97 (units (unknown) date) 98 unknown) (unknown) (no (unknown) (unknown) Pulse Oximetry 98 (units (unknown) date) 100 unknown) (unknown) (no (unknown) (unknown) Pulse Oximetry 99 (units (unknown) date) 100 unknown) (unknown) (no (unknown) (unknown) Pulse Rate 73 77 (units (unknown) date) unknown) (unknown) (no (unknown) (unknown) Pulse Rate 74 76 (units (unknown) date) unknown) (unknown) (no (unknown) (unknown) Pulse Rate 75 (units ( unknown) date) unknown) (unknown) (no (unknown) (unknown) Pulse Rate 76 77 (units (unknown) date) unknown) (unknown) (no (unknown) (unknown) Pulse Rate 78 (units ( unknown) date) 05/27/22 13:06 unknown) (unknown) (no (unknown) (unknown) Pulse Rate 78 76 (units (unknown) date) unknown) (unknown) (no (unknown) (unknown) Pulse Rate 78 (units ( unknown) date) unknown) (unknown) (no (unknown) (unknown) Pulse Rate 79 (units ( unknown) date) unknown) (unknown) (no (unknown) (unknown) Pulse Rate 81 74 (units (unknown) date) unknown) (unknown) (no (unknown) (unknown) Pulse Rate 83 76 (units (unknown) date) 72 unknown) (unknown) (no (unknown) (unknown) Pulse Rate 92 H 80 (units (unknown) date) 77 unknown) (unknown) (no (unknown) (unknown) QTC 486 (units (unkno wn) date) unknown) (unknown) (no (unknown) (unknown) QTC 5 a 1 (units (unkn own) date) unknown) (unknown) (no (unknown) (unknown) RBC (4.5-5.9) (units ( unknown) date) X106/uL unknown) (unknown) (no (unknown) (unknown) RBC 5.02 (4.5-5.9) (units (unknown) date) X106/uL unknown) (unknown) (no (unknown) (unknown) RDW (11.6-14.8) % (units (unknown) date) unknown) (unknown) (no (unknown) (unknown) RDW 13.3 (units (unkno wn) date) (11.6-14.8) % unknown) (unknown) (no (unknown) (unknown) ROS Unobtainable: (units (unknown) date) All systems unknown) reviewed + are unremarkable except as noted in HPI (unknown) (no (unknown) (unknown) Radiologist's (units ( unknown) date) Impression: unknown) (unknown) (no (unknown) (unknown) Rate: tachycardic (units (unknown) date) unknown) (unknown) (no (unknown) (unknown) Related Data (units (u nknown) date) unknown) (unknown) (no (unknown) (unknown) Relatively (units (unk nown) date) unchanged from unknown) initial EKG (unknown) (no (unknown) (unknown) Repeat EKG (units (unk nown) date) unknown) (unknown) (no (unknown) (unknown) Resp (units (unkno wn) date) unknown) (unknown) (no (unknown) (unknown) Respiratory Rate (units (unknown) date) 18 19 18 unknown) (unknown) (no (unknown) (unknown) Respiratory Rate (units (unknown) date) 20 unknown) (unknown) (no (unknown) (unknown) Respiratory Rate (units (unknown) date) 22 05/27/22 13:06 unknown) (unknown) (no (unknown) (unknown) Respiratory Rate (units (unknown) date) 22 15 unknown) (unknown) (no (unknown) (unknown) Respiratory Rate (units (unknown) date) 27 H 28 H unknown) (unknown) (no (unknown) (unknown) Respiratory Rate (units (unknown) date) 28 H 38 H unknown) (unknown) (no (unknown) (unknown) Respiratory Rate (units (unknown) date) 28 H unknown) (unknown) (no (unknown) (unknown) Respiratory Rate (units (unknown) date) 29 H unknown) (unknown) (no (unknown) (unknown) Respiratory Rate (units (unknown) date) 33 H unknown) (unknown) (no (unknown) (unknown) Respiratory Rate (units (unknown) date) 41 H 19 unknown) (unknown) (no (unknown) (unknown) Respiratory Rate (units (unknown) date) 41 H 28 H 27 H unknown) (unknown) (no (unknown) (unknown) Respiratory Rate (units (unknown) date) 44 H 27 H unknown) (unknown) (no (unknown) (unknown) Review of Systems (units (unknown) date) unknown) (unknown) (no (unknown) (unknown) Rhythm: regular (units (unknown) date) rhythm unknown) (unknown) (no (unknown) (unknown) SARS-CoV-2 (PCR) (units (unknown) date) (Negative) unknown) (unknown) (no (unknown) (unknown) SARS-CoV-2 (PCR) (units (unknown) date) Negative (Negative) unknown) (unknown) (no (unknown) (unknown) Scores (units (unkno wn) date) unknown) (unknown) (no (unknown) (unknown) Sennosides (units (unk nown) date) (Sennosides 8.6 Mg unknown) Tablet) 8.6 mg PO BID PRN (unknown) (no (unknown) (unknown) Signed By: (units (unk nown) date) unknown) (unknown) (no (unknown) (unknown) Sinus rhythm (units (u nknown) date) unknown) (unknown) (no (unknown) (unknown) Skin (units (unkno wn) date) unknown) (unknown) (no (unknown) (unknown) Smoking Status: (units (unknown) date) Former smoker unknown) (unknown) (no (unknown) (unknown) Social History (units (unknown) date) (Reviewed 05/27/22 unknown) @ 19:26 by Dalton Graff DO) (unknown) (no (unknown) (unknown) Sodium (137-145) (units (unknown) date) mmol/L unknown) (unknown) (no (unknown) (unknown) Sodium 132 L (units (u nknown) date) (137-145) mmol/L unknown) (unknown) (no (unknown) (unknown) Sodium 136 L (units (u nknown) date) (137-145) mmol/L unknown) (unknown) (no (unknown) (unknown) Sodium Chloride (units (unknown) date) (Normal Saline unknown) 0.9%) 1,000 mls @ 1,000 mls/hr IV BOLUS ONE (unknown) (no (unknown) (unknown) Sodium Chloride (units (unknown) date) (Normal Saline unknown) 0.9%) 1,000 mls @ 250 mls/hr IV CONT SRIDEVI (unknown) (no (unknown) (unknown) Source: patient (units (unknown) date) and EMS unknown) (unknown) (no (unknown) (unknown) Stated complaint: (units (unknown) date) chest pain/ n+v/ unknown) high glucose (unknown) (no (unknown) (unknown) Stop: 05/27/22 (units (unknown) date) 14:48 unknown) (unknown) (no (unknown) (unknown) Stop: 05/27/22 (units (unknown) date) 14:53 unknown) (unknown) (no (unknown) (unknown) Stop: 05/30/22 (units (unknown) date) 17:59 unknown) (unknown) (no (unknown) (unknown) Substance Use (units ( unknown) date) Type: marijuana unknown) (unknown) (no (unknown) (unknown) Surgical changes (units (unknown) date) and devices:? unknown) None.? (unknown) (no (unknown) (unknown) TECHNIQUE:? One (units (unknown) date) view of the chest unknown) was acquired.? (unknown) (no (unknown) (unknown) TITRATE SRIDEVI; (units (u nknown) date) Protocol unknown) (unknown) (no (unknown) (unknown) TSH (0.47-4.68) (units (unknown) date) uIU/mL unknown) (unknown) (no (unknown) (unknown) TSH 2.80 (units (unkno wn) date) (0.47-4.68) uIU/mL unknown) (unknown) (no (unknown) (unknown) Temperature 97.5 F (units (unknown) date) L 05/27/22 13:06 unknown) (unknown) (no (unknown) (unknown) Temperature 97.5 F (units (unknown) date) L unknown) (unknown) (no (unknown) (unknown) Temperature (units (un known) date) unknown) (unknown) (no (unknown) (unknown) The high (units (unkno wn) date) probability of a unknown) clinically significant, sudden or life threatening (unknown) (no (unknown) (unknown) Time Seen by (units (u nknown) date) Provider: 05/27/22 unknown) 13:38 (unknown) (no (unknown) (unknown) Total Bilirubin (units (unknown) date) (0.2-1.3) mg/dL unknown) (unknown) (no (unknown) (unknown) Total Bilirubin (units (unknown) date) 2.2 H (0.2-1.3) unknown) mg/dL (unknown) (no (unknown) (unknown) Total Bilirubin (units (unknown) date) 2.7 H (0.2-1.3) unknown) mg/dL (unknown) (no (unknown) (unknown) Total Creatine (units (unknown) date) Kinase (55-170) U/L unknown) (unknown) (no (unknown) (unknown) Total Creatine (units (unknown) date) Kinase 57 (55-170) unknown) U/L (unknown) (no (unknown) (unknown) Total Critical (units (unknown) date) Care Time: 40 unknown) (unknown) (no (unknown) (unknown) Total Protein (units ( unknown) date) (6.3-8.2) g/dL unknown) (unknown) (no (unknown) (unknown) Total Protein 6.9 (units (unknown) date) (6.3-8.2) g/dL unknown) (unknown) (no (unknown) (unknown) Total Protein 7.8 (units (unknown) date) (6.3-8.2) g/dL unknown) (unknown) (no (unknown) (unknown) Troponin + CK (units ( unknown) date) Cardiac Panel Stat unknown) (unknown) (no (unknown) (unknown) Troponin I < 0.012 (units (unknown) date) (0.01-0.034) ng/mL unknown) (unknown) (no (unknown) (unknown) Troponin I (units (unk nown) date) (0.01-0.034) ng/mL unknown) (unknown) (no (unknown) (unknown) Troponin I Stat (units (unknown) date) unknown) (unknown) (no (unknown) (unknown) U Benzodiazepines (units (unknown) date) Scrn (Negative) unknown) (unknown) (no (unknown) (unknown) U Benzodiazepines (units (unknown) date) Scrn Negative unknown) (Negative) (unknown) (no (unknown) (unknown) U Marijuana (THC) (units (unknown) date) Screen (Negative) unknown) (unknown) (no (unknown) (unknown) U Marijuana (THC) (units (unknown) date) Screen Positive H unknown) (Negative) (unknown) (no (unknown) (unknown) U Methamphetamines (units (unknown) date) Scrn (Negative) unknown) (unknown) (no (unknown) (unknown) U Methamphetamines (units (unknown) date) Scrn Negative unknown) (Negative) (unknown) (no (unknown) (unknown) U Opiates 300ng/mL (units (unknown) date) cut (Negative) unknown) (unknown) (no (unknown) (unknown) U Opiates 300ng/mL (units (unknown) date) cut Negative unknown) (Negative) (unknown) (no (unknown) (unknown) U Tricyclic (units (un known) date) Antidepress unknown) (Negative) (unknown) (no (unknown) (unknown) U Tricyclic (units (un known) date) Antidepress unknown) Negative (Negative) (unknown) (no (unknown) (unknown) U-100 Insulin) (units (unknown) date) unknown) (unknown) (no (unknown) (unknown) Ur Amphetamines (units (unknown) date) Screen (Negative) unknown) (unknown) (no (unknown) (unknown) Ur Amphetamines (units (unknown) date) Screen Negative unknown) (Negative) (unknown) (no (unknown) (unknown) Ur Barbiturates (units (unknown) date) Screen (Negative) unknown) (unknown) (no (unknown) (unknown) Ur Barbiturates (units (unknown) date) Screen Negative unknown) (Negative) (unknown) (no (unknown) (unknown) Ur Culture (units (unk nown) date) Indicated? Cult not unknown) indicated (unknown) (no (unknown) (unknown) Ur Culture (units (unk nown) date) Indicated? unknown) (unknown) (no (unknown) (unknown) Ur Leukocyte (units (u nknown) date) Esterase (NEGATIVE) unknown) (unknown) (no (unknown) (unknown) Ur Leukocyte (units (u nknown) date) Esterase Negative unknown) (NEGATIVE) (unknown) (no (unknown) (unknown) Ur MDMA Scrn (units (u nknown) date) (Ecstasy) unknown) (Negative) (unknown) (no (unknown) (unknown) Ur MDMA Scrn (units (u nknown) date) (Ecstasy) Negative unknown) (Negative) (unknown) (no (unknown) (unknown) Ur Oxycodone (units (u nknown) date) Screen (Negative) unknown) (unknown) (no (unknown) (unknown) Ur Oxycodone (units (u nknown) date) Screen Negative unknown) (Negative) (unknown) (no (unknown) (unknown) Ur Phencyclidine (units (unknown) date) Scrn (Negative) unknown) (unknown) (no (unknown) (unknown) Ur Phencyclidine (units (unknown) date) Scrn Negative unknown) (Negative) (unknown) (no (unknown) (unknown) Ur Specific (units (un known) date) [place] unknown) (1.000-1.035) (unknown) (no (unknown) (unknown) Ur Specific (units (un known) date) [place] 1.010 unknown) (1.000-1.035) (unknown) (no (unknown) (unknown) Urinalysis and (units (unknown) date) Microscopic Stat unknown) (unknown) (no (unknown) (unknown) Urine Appearance (units (unknown) date) Clear unknown) (unknown) (no (unknown) (unknown) Urine Appearance (units (unknown) date) unknown) (unknown) (no (unknown) (unknown) Urine Bacteria (units (unknown) date) (None) unknown) (unknown) (no (unknown) (unknown) Urine Bacteria (units (unknown) date) None seen (None) unknown) (unknown) (no (unknown) (unknown) Urine Bilirubin (units (unknown) date) (NEGATIVE) unknown) (unknown) (no (unknown) (unknown) Urine Bilirubin (units (unknown) date) Negative (NEGATIVE) unknown) (unknown) (no (unknown) (unknown) Urine Cocaine (units ( unknown) date) Screen (Negative) unknown) (unknown) (no (unknown) (unknown) Urine Cocaine (units ( unknown) date) Screen Negative unknown) (Negative) (unknown) (no (unknown) (unknown) Urine Color Yellow (units (unknown) date) unknown) (unknown) (no (unknown) (unknown) Urine Color (units (un known) date) unknown) (unknown) (no (unknown) (unknown) Urine Culture Stat (units (unknown) date) unknown) (unknown) (no (unknown) (unknown) Urine Drug Screen, (units (unknown) date) Rapid Stat unknown) (unknown) (no (unknown) (unknown) Urine Glucose (UA) (units (unknown) date) (Negative) g/dL unknown) (unknown) (no (unknown) (unknown) Urine Glucose (UA) (units (unknown) date) 3+ H (Negative) unknown) g/dL (unknown) (no (unknown) (unknown) Urine Ketones (units ( unknown) date) (NEGATIVE) unknown) (unknown) (no (unknown) (unknown) Urine Ketones 3+ H (units (unknown) date) (NEGATIVE) unknown) (unknown) (no (unknown) (unknown) Urine Methadone (units (unknown) date) Screen (Negative) unknown) (unknown) (no (unknown) (unknown) Urine Methadone (units (unknown) date) Screen Negative unknown) (Negative) (unknown) (no (unknown) (unknown) Urine Nitrate (units ( unknown) date) (Negative) unknown) (unknown) (no (unknown) (unknown) Urine Nitrate (units ( unknown) date) Negative (Negative) unknown) (unknown) (no (unknown) (unknown) Urine Occult Blood (units (unknown) date) (Negative) unknown) (unknown) (no (unknown) (unknown) Urine Occult Blood (units (unknown) date) Negative (Negative) unknown) (unknown) (no (unknown) (unknown) Urine Protein (units ( unknown) date) (Negative) unknown) (unknown) (no (unknown) (unknown) Urine Protein (units ( unknown) date) Negative (Negative) unknown) (unknown) (no (unknown) (unknown) Urine RBC (units (unkn own) date) (0-5/HPF) unknown) (unknown) (no (unknown) (unknown) Urine RBC None (units (unknown) date) seen (0-5/HPF) unknown) (unknown) (no (unknown) (unknown) Urine Urobilinogen (units (unknown) date) (0.2) E.U./dL unknown) (unknown) (no (unknown) (unknown) Urine Urobilinogen (units (unknown) date) 0.2 (0.2) E.U./dL unknown) (unknown) (no (unknown) (unknown) Urine WBC (units (unkn own) date) (0-5/HPF) unknown) (unknown) (no (unknown) (unknown) Urine WBC None (units (unknown) date) seen (0-5/HPF) unknown) (unknown) (no (unknown) (unknown) Urine pH (4.5-8.0) (units (unknown) date) unknown) (unknown) (no (unknown) (unknown) Urine pH 6.0 (units (u nknown) date) (4.5-8.0) unknown) (unknown) (no (unknown) (unknown) VBG Base Excess (units (unknown) date) (0-4) mmol/L unknown) (unknown) (no (unknown) (unknown) VBG Base Excess (units (unknown) date) -11.0 L (0-4) unknown) mmol/L (unknown) (no (unknown) (unknown) VBG HCO3 (24-28) (units (unknown) date) mmol/L unknown) (unknown) (no (unknown) (unknown) VBG HCO3 15 L (units ( unknown) date) (24-28) mmol/L unknown) (unknown) (no (unknown) (unknown) VBG O2 Saturation (units (unknown) date) (70-75) % unknown) (unknown) (no (unknown) (unknown) VBG O2 Saturation (units (unknown) date) 46 L (70-75) % unknown) (unknown) (no (unknown) (unknown) VBG Total CO2 (units ( unknown) date) (24-29) mmol/L unknown) (unknown) (no (unknown) (unknown) VBG Total CO2 16 L (units (unknown) date) (24-29) mmol/L unknown) (unknown) (no (unknown) (unknown) VBG [Venous Blood (units (unknown) date) Gas] Stat unknown) (unknown) (no (unknown) (unknown) VBG pCO2 (45-50) (units (unknown) date) mmHg unknown) (unknown) (no (unknown) (unknown) VBG pCO2 26.7 L (units (unknown) date) (45-50) mmHg unknown) (unknown) (no (unknown) (unknown) VBG pH (7.33-7.43) (units (unknown) date) unknown) (unknown) (no (unknown) (unknown) VBG pH 7.35 (units (un known) date) (7.33-7.43) unknown) (unknown) (no (unknown) (unknown) VBG pO2 (35-45) (units (unknown) date) mmHg unknown) (unknown) (no (unknown) (unknown) VBG pO2 26 L (units (u nknown) date) (35-45) mmHg unknown) (unknown) (no (unknown) (unknown) Ventricular rate (units (unknown) date) is 73 unknown) (unknown) (no (unknown) (unknown) Ventricular rate (units (unknown) date) is 76 unknown) (unknown) (no (unknown) (unknown) Vital Signs - 8 hr (units (unknown) date) unknown) (unknown) (no (unknown) (unknown) Vital Signs (units (un known) date) unknown) (unknown) (no (unknown) (unknown) Vital signs: (units (u nknown) date) unknown) (unknown) (no (unknown) (unknown) WBC (4.5-11.0) (units (unknown) date) X103/uL unknown) (unknown) (no (unknown) (unknown) WBC 11.2 H (units (unk nown) date) (4.5-11.0) X103/uL unknown) (unknown) (no (unknown) (unknown) XR chest 1V Stat (units (unknown) date) unknown) (unknown) (no (unknown) (unknown) [Embedded Image (units (unknown) date) Not Available] unknown) (unknown) (no (unknown) (unknown) [From Novolog (units ( unknown) date) U-100 Insulin unknown) injection (unknown) (no (unknown) (unknown) [x] Data Review (units (unknown) date) and interpretation unknown) (unknown) (no (unknown) (unknown) [x] Documentation (units (unknown) date) unknown) (unknown) (no (unknown) (unknown) [x] Patient (units (un known) date) assessment and unknown) monitoring of vital signs (unknown) (no (unknown) (unknown) admit. (units (unkno wn) date) unknown) (unknown) (no (unknown) (unknown) afterwards where (units (unknown) date) he again became unknown) unresponsive in. The pass out. There was no (unknown) (no (unknown) (unknown) aggregate critical (units (unknown) date) care time was [40] unknown) minutes. This time is in addition to time (unknown) (no (unknown) (unknown) alcohol intake (units (unknown) date) frequency: unknown) holidays/special occasions only (unknown) (no (unknown) (unknown) alcohol intake: (units (unknown) date) never unknown) (unknown) (no (unknown) (unknown) and below (units (unkn own) date) unknown) (unknown) (no (unknown) (unknown) appear (units (unkno wn) date) unknown) (unknown) (no (unknown) (unknown) aspart] site (units (u nknown) date) unknown) (unknown) (no (unknown) (unknown) bathroom and had (units (unknown) date) what appeared to be unknown) a syncopal episode. He had another episode (unknown) (no (unknown) (unknown) breath. Prior to (units (unknown) date) my initial unknown) evaluation patient was getting up to go to the (unknown) (no (unknown) (unknown) codeine [CODEINE] (units (unknown) date) Allergy Unknown unknown) Verified 05/27/22 13:06 (unknown) (no (unknown) (unknown) cyclobenzaprine 5 (units (unknown) date) mg tablet 5 mg PO unknown) TID PRN muscle spasm #10 10/16/17 (unknown) (no (unknown) (unknown) deterioration of (units (unknown) date) the [endocrine, unknown) respiratory, cardiovascular] system(s) required (unknown) (no (unknown) (unknown) doxycycline (units (un known) date) [DOXYCYCLINE] unknown) Allergy Unknown Verified 05/27/22 13:06 (unknown) (no (unknown) (unknown) have a continuous (units (unknown) date) glucose monitor and unknown) also an insulin pump. Has been diabetic (unknown) (no (unknown) (unknown) he describes in (units (unknown) date) his left side which unknown) is more in the left upper quadrant. No (unknown) (no (unknown) (unknown) here in the (units (un known) date) emergency unknown) department is more consistent with a vasovagal syncope. (unknown) (no (unknown) (unknown) insulin aspart (units (unknown) date) Allergy Unknown unknown) Rash at Verified 05/27/22 13:20 (unknown) (no (unknown) (unknown) insulin drip. (units ( unknown) date) Patient does unknown) require admission to the hospital for his presenting (unknown) (no (unknown) (unknown) insulin lispro 100 (units (unknown) date) unit/mL 55 unit unknown) SLIDE ##0 08/30/10 (unknown) (no (unknown) (unknown) my full and direct (units (unknown) date) attention, unknown) intervention and personal management. The (unknown) (no (unknown) (unknown) omeprazole (units (unk nown) date) [OMEPRAZOLE] unknown) Allergy Unknown Verified 05/27/22 13:06 (unknown) (no (unknown) (unknown) pancreatitis. Has (units (unknown) date) a soft abdomen. unknown) Patient was started on fluids and then (unknown) (no (unknown) (unknown) recent travel. No (units (unknown) date) changes unknown) medications. No diarrhea. Is having shortness of (unknown) (no (unknown) (unknown) seizure-like (units (u nknown) date) activity. unknown) (unknown) (no (unknown) (unknown) since 1998. Is (units (unknown) date) here for evaluation unknown) of a fairly sudden onset of nausea and (unknown) (no (unknown) (unknown) specific source of (units (unknown) date) infection found. unknown) The 2 episodes where he became syncopal (unknown) (no (unknown) (unknown) spent performing (units (unknown) date) reported procedures unknown) but includes the following: (unknown) (no (unknown) (unknown) subcutaneous (units (u nknown) date) solution (Humalog unknown) (unknown) (no (unknown) (unknown) substance use (units ( unknown) date) type: does not use unknown) (unknown) (no (unknown) (unknown) symptoms. (units (unkn own) date) Discussed case with unknown) Dr. Coles on-call for Internal Medicine who will (unknown) (no (unknown) (unknown) tabs (units (unkno wn) date) unknown) (unknown) (no (unknown) (unknown) unremarkable.? (units (unknown) date) unknown) (unknown) (no (unknown) (unknown) vomiting that (units ( unknown) date) started just before unknown) noon today. Also having chest discomfort that (unknown) (no (unknown) (unknown) x[] Medication (units (unknown) date) orders and unknown) management Result panel 299 (unknown) (no (unknown) (unknown) (no value) (units (unk nown) date) unknown) (unknown) (no (unknown) (unknown) # acute DKA (units (un known) date) unknown) (unknown) (no (unknown) (unknown) # toothache (units (un known) date) unknown) (unknown) (no (unknown) (unknown) # type 1 diabetes (units (unknown) date) unknown) (unknown) (no (unknown) (unknown) (past 8 hours): (units (unknown) date) unknown) (unknown) (no (unknown) (unknown) -A1c 9.5% (units (unkn own) date) unknown) (unknown) (no (unknown) (unknown) -blood sugar 731 on (units (unknown) date) admission, anion unknown) gap 26, bicarb 12, ketones positive at 6.46 (unknown) (no (unknown) (unknown) -continue Rocephin (units (unknown) date) and Flagyl unknown) (unknown) (no (unknown) (unknown) -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 (units (unk nown) date) consulted unknown) (unknown) (no (unknown) (unknown) -on insulin (units (un known) date) protocol unknown) (unknown) (no (unknown) (unknown) -tele ICU (units (unkn own) date) consulted unknown) (unknown) (no (unknown) (unknown) -transition to (units (unknown) date) subcutaneous unknown) insulin once gap closes (unknown) (no (unknown) (unknown) -unclear if he has (units (unknown) date) dental infection unknown) which triggered the DKA, as he is noticed a (unknown) (no (unknown) (unknown) 05/27/22 05/27/22 (units (unknown) date) 05/27/22 unknown) (unknown) (no (unknown) (unknown) 05/27/22 13:50 (units (unknown) date) unknown) (unknown) (no (unknown) (unknown) 05/27/22 16:50 (units (unknown) date) unknown) (unknown) (no (unknown) (unknown) 05/27/22 1943 (units ( unknown) date) unknown) (unknown) (no (unknown) (unknown) 05/27/22 (units (unkno wn) date) unknown) (unknown) (no (unknown) (unknown) 12:55 13:50 13:50 (units (unknown) date) unknown) (unknown) (no (unknown) (unknown) 13:06 05/27/22 (units (unknown) date) unknown) (unknown) (no (unknown) (unknown) 13:37 05/27/22 (units (unknown) date) unknown) (unknown) (no (unknown) (unknown) 13:37 (units (unkno wn) date) unknown) (unknown) (no (unknown) (unknown) 13:40 05/27/22 (units (unknown) date) unknown) (unknown) (no (unknown) (unknown) 13:45 05/27/22 (units (unknown) date) unknown) (unknown) (no (unknown) (unknown) 13:45 (units (unkno wn) date) unknown) (unknown) (no (unknown) (unknown) 13:50 13:50 13:50 (units (unknown) date) unknown) (unknown) (no (unknown) (unknown) 13:55 05/27/22 (units (unknown) date) unknown) (unknown) (no (unknown) (unknown) 13:55 (units (unkno wn) date) unknown) (unknown) (no (unknown) (unknown) 14:00 03/13/23 (units (unknown) date) unknown) (unknown) (no (unknown) (unknown) 14:05 05/27/22 (units (unknown) date) unknown) (unknown) (no (unknown) (unknown) 14:05 (units (unkno wn) date) unknown) (unknown) (no (unknown) (unknown) 14:10 05/27/22 (units (unknown) date) unknown) (unknown) (no (unknown) (unknown) 14:10 (units (unkno wn) date) unknown) (unknown) (no (unknown) (unknown) 14:15 05/27/22 (units (unknown) date) unknown) (unknown) (no (unknown) (unknown) 14:15 14:40 14:40 (units (unknown) date) unknown) (unknown) (no (unknown) (unknown) 14:20 05/27/22 (units (unknown) date) unknown) (unknown) (no (unknown) (unknown) 14:20 (units (unkno wn) date) unknown) (unknown) (no (unknown) (unknown) 14:28 05/27/22 (units (unknown) date) unknown) (unknown) (no (unknown) (unknown) 14:28 (units (unkno wn) date) unknown) (unknown) (no (unknown) (unknown) 14:30 05/27/22 (units (unknown) date) unknown) (unknown) (no (unknown) (unknown) 14:41 05/27/22 (units (unknown) date) unknown) (unknown) (no (unknown) (unknown) 14:41 (units (unkno wn) date) unknown) (unknown) (no (unknown) (unknown) 14:45 05/27/22 (units (unknown) date) unknown) (unknown) (no (unknown) (unknown) 15:00 05/27/22 (units (unknown) date) unknown) (unknown) (no (unknown) (unknown) 15:00 (units (unkno wn) date) unknown) (unknown) (no (unknown) (unknown) 15:12 16:28 16:50 (units (unknown) date) unknown) (unknown) (no (unknown) (unknown) 15:30 05/27/22 (units (unknown) date) unknown) (unknown) (no (unknown) (unknown) 16:00 (units (o wn) date) unknown) (unknown) (no (unknown) (unknown) 16:30 05/27/22 (units (unknown) date) unknown) (unknown) (no (unknown) (unknown) 17:00 05/27/22 (units (unknown) date) unknown) (unknown) (no (unknown) (unknown) 17:30 (units (o wn) date) unknown) (unknown) (no (unknown) (unknown) 6599 (units (o wn) date) unknown) (unknown) (no (unknown) (unknown) ABD: soft, (units () ) nontender, unknown) nondistended, no organomegaly (unknown) (no (unknown) (unknown) ABG Base Excess (units (unknown) date) -15.0 L unknown) (unknown) (no (unknown) (unknown) ABG Base Excess (units (unknown) date) unknown) (unknown) (no (unknown) (unknown) ABG HCO3 12 L (units ( unknown) date) unknown) (unknown) (no (unknown) (unknown) ABG HCO3 (units (o ) ) unknown) (unknown) (no (unknown) (unknown) ABG O2 Saturation (units (unknown) date) 97 unknown) (unknown) (no (unknown) (unknown) ABG O2 Saturation (units (unknown) date) unknown) (unknown) (no (unknown) (unknown) ABG Total CO2 12 L (units (unknown) date) unknown) (unknown) (no (unknown) (unknown) ABG Total CO2 (units ( unknown) date) unknown) (unknown) (no (unknown) (unknown) ABG pCO2 24.9 L* (units (unknown) date) unknown) (unknown) (no (unknown) (unknown) ABG pCO2 (units (o wn) date) unknown) (unknown) (no (unknown) (unknown) ABG pH 7.27 L* (units (unknown) date) unknown) (unknown) (no (unknown) (unknown) ABG pH (units (o wn) date) unknown) (unknown) (no (unknown) (unknown) ABG pO2 99 (units (unk nown) date) unknown) (unknown) (no (unknown) (unknown) ABG pO2 (units (unkno wn) date) unknown) (unknown) (no (unknown) (unknown) ALT 40 (units (unkno wn) date) unknown) (unknown) (no (unknown) (unknown) ALT 44 (units (unkno wn) date) unknown) (unknown) (no (unknown) (unknown) ALT (units (unkno wn) date) unknown) (unknown) (no (unknown) (unknown) AST 27 (units (unkno wn) date) unknown) (unknown) (no (unknown) (unknown) AST 30 (units (unkno wn) date) unknown) (unknown) (no (unknown) (unknown) AST (units (unkno wn) date) unknown) (unknown) (no (unknown) (unknown) Age/Sex: 56 / M (units (unknown) date) unknown) (unknown) (no (unknown) (unknown) Albumin 4.1 (units (un known) date) unknown) (unknown) (no (unknown) (unknown) Albumin 4.7 (units (un known) date) unknown) (unknown) (no (unknown) (unknown) Albumin (units (unkno wn) date) unknown) (unknown) (no (unknown) (unknown) Albumin/Globulin (units (unknown) date) Ratio 1.5 unknown) (unknown) (no (unknown) (unknown) Albumin/Globulin (units (unknown) date) Ratio unknown) (unknown) (no (unknown) (unknown) Alkaline (units (unkno wn) date) Phosphatase 104 unknown) (unknown) (no (unknown) (unknown) Alkaline (units (unkno wn) date) Phosphatase 79 unknown) (unknown) (no (unknown) (unknown) Alkaline (units (unkno wn) date) Phosphatase unknown) (unknown) (no (unknown) (unknown) All other systems (units (unknown) date) reviewed with the unknown) patient and are negative unless otherwise (unknown) (no (unknown) (unknown) Allergies (units (unkn own) date) unknown) (unknown) (no (unknown) (unknown) Allergy/AdvReac (units (unknown) date) Type Severity unknown) Reaction Status Date / Time (unknown) (no (unknown) (unknown) Amorphous Sediment (units (unknown) date) 1 unknown) (unknown) (no (unknown) (unknown) Amorphous Sediment (units (unknown) date) unknown) (unknown) (no (unknown) (unknown) Assessment + Plan (units (unknown) date) narrative: unknown) (unknown) (no (unknown) (unknown) Assessment + Plan (units (unknown) date) unknown) (unknown) (no (unknown) (unknown) BUN 23 H (units (unkno wn) date) unknown) (unknown) (no (unknown) (unknown) BUN 24 H (units (unkno wn) date) unknown) (unknown) (no (unknown) (unknown) BUN (units (unkno wn) date) unknown) (unknown) (no (unknown) (unknown) BUN/Creatinine (units (unknown) date) Ratio 20.0 unknown) (unknown) (no (unknown) (unknown) BUN/Creatinine (units (unknown) date) Ratio 21.4 unknown) (unknown) (no (unknown) (unknown) BUN/Creatinine (units (unknown) date) Ratio unknown) (unknown) (no (unknown) (unknown) Baso # (Auto) 100 (units (unknown) date) unknown) (unknown) (no (unknown) (unknown) Baso # (Auto) (units ( unknown) date) unknown) (unknown) (no (unknown) (unknown) Baso % (Auto) 0.5 (units (unknown) date) unknown) (unknown) (no (unknown) (unknown) Baso % (Auto) (units ( unknown) date) unknown) (unknown) (no (unknown) (unknown) Blood Pressure (units (unknown) date) 121/58 L unknown) (unknown) (no (unknown) (unknown) Blood Pressure (units (unknown) date) 123/62 unknown) (unknown) (no (unknown) (unknown) Blood Pressure (units (unknown) date) 128/58 L unknown) (unknown) (no (unknown) (unknown) Blood Pressure (units (unknown) date) 133/61 152/61 H unknown) (unknown) (no (unknown) (unknown) Blood Pressure (units (unknown) date) 139/63 141/97 H unknown) (unknown) (no (unknown) (unknown) Blood Pressure (units (unknown) date) 140/61 108/53 L unknown) (unknown) (no (unknown) (unknown) Blood Pressure (units (unknown) date) 142/87 H unknown) (unknown) (no (unknown) (unknown) Blood Pressure (units (unknown) date) 144/58 H 148/67 H unknown) (unknown) (no (unknown) (unknown) Blood Pressure (units (unknown) date) 148/69 H 129/63 unknown) (unknown) (no (unknown) (unknown) Blood Pressure (units (unknown) date) unknown) (unknown) (no (unknown) (unknown) CK-MB (CK-2) Rel (units (unknown) date) Index TNP unknown) (unknown) (no (unknown) (unknown) CK-MB (CK-2) Rel (units (unknown) date) Index unknown) (unknown) (no (unknown) (unknown) CK-MB (CK-2) TNP (units (unknown) date) unknown) (unknown) (no (unknown) (unknown) CK-MB (CK-2) (units (u nknown) date) unknown) (unknown) (no (unknown) (unknown) COVID negative. (units (unknown) date) unknown) (unknown) (no (unknown) (unknown) CV: regular rate (units (unknown) date) and rhythm, no unknown) murmurs (unknown) (no (unknown) (unknown) Calcium 8.8 (units (un known) date) unknown) (unknown) (no (unknown) (unknown) Calcium 9.7 (units (un known) date) unknown) (unknown) (no (unknown) (unknown) Calcium (units (unkno wn) date) unknown) (unknown) (no (unknown) (unknown) Carbon Dioxide 12 (units (unknown) date) L unknown) (unknown) (no (unknown) (unknown) Carbon Dioxide 8 (units (unknown) date) L* unknown) (unknown) (no (unknown) (unknown) Carbon Dioxide (units (unknown) date) unknown) (unknown) (no (unknown) (unknown) Chief complaint: (units (unknown) date) chest pain/ n+v/ unknown) high glucose (unknown) (no (unknown) (unknown) Chloride 103 (units (u nknown) date) unknown) (unknown) (no (unknown) (unknown) Chloride 94 L (units ( unknown) date) unknown) (unknown) (no (unknown) (unknown) Chloride (units (unkno wn) date) unknown) (unknown) (no (unknown) (unknown) Code status is (units (unknown) date) full code. unknown) (unknown) (no (unknown) (unknown) Creatinine 1.12 (units (unknown) date) unknown) (unknown) (no (unknown) (unknown) Creatinine 1.15 (units (unknown) date) unknown) (unknown) (no (unknown) (unknown) Creatinine (units (unk nown) date) unknown) (unknown) (no (unknown) (unknown) Critical Care (units ( unknown) date) time: unknown) (unknown) (no (unknown) (unknown) : 1965 (units (unknown) date) Acct:[id number] unknown) (unknown) (no (unknown) (unknown) DVT prophylaxis (units (unknown) date) with SCDs. unknown) (unknown) (no (unknown) (unknown) Date Patient Seen: (units (unknown) date) 05/27/22 unknown) (unknown) (no (unknown) (unknown) Date of Service: (units (unknown) date) 05/27/22 unknown) (unknown) (no (unknown) (unknown) EXT: warm and well (units (unknown) date) perfused with no unknown) edema (unknown) (no (unknown) (unknown) Environment (units (un known) date) unknown) (unknown) (no (unknown) (unknown) Eos # (Auto) 0 (units (unknown) date) unknown) (unknown) (no (unknown) (unknown) Eos # (Auto) (units (u nknown) date) unknown) (unknown) (no (unknown) (unknown) Eos % (Auto) 0.1 L (units (unknown) date) unknown) (unknown) (no (unknown) (unknown) Eos % (Auto) (units (u nknown) date) unknown) (unknown) (no (unknown) (unknown) Estimated GFR > 60 (units (unknown) date) unknown) (unknown) (no (unknown) (unknown) Estimated GFR (units ( unknown) date) unknown) (unknown) (no (unknown) (unknown) Ethyl Alcohol < 10 (units (unknown) date) unknown) (unknown) (no (unknown) (unknown) Ethyl Alcohol (units ( unknown) date) unknown) (unknown) (no (unknown) (unknown) Exam Narrative: (units (unknown) date) unknown) (unknown) (no (unknown) (unknown) Exam (units (unkno wn) date) unknown) (unknown) (no (unknown) (unknown) Family + Social (units (unknown) date) History unknown) (unknown) (no (unknown) (unknown) Feels Safe in (units ( unknown) date) Current Yes unknown) (unknown) (no (unknown) (unknown) FiO2 21 (units (unkno wn) date) unknown) (unknown) (no (unknown) (unknown) FiO2 (units (unkno wn) date) unknown) (unknown) (no (unknown) (unknown) GEN: no acute (units ( unknown) date) distress unknown) (unknown) (no (unknown) (unknown) Globulin 2.8 (units (u nknown) date) unknown) (unknown) (no (unknown) (unknown) Globulin 3.1 (units (u nknown) date) unknown) (unknown) (no (unknown) (unknown) Globulin (units (unkno wn) date) unknown) (unknown) (no (unknown) (unknown) Glucose 532 H* (units (unknown) date) unknown) (unknown) (no (unknown) (unknown) Glucose 731 H* (units (unknown) date) unknown) (unknown) (no (unknown) (unknown) Glucose (units (unkno wn) date) unknown) (unknown) (no (unknown) (unknown) HEENT: moist (units (u nknown) date) mucous membranes, unknown) PERRL (unknown) (no (unknown) (unknown) Hct 44.7 (units (unkno wn) date) unknown) (unknown) (no (unknown) (unknown) Hct (units (unkno wn) date) unknown) (unknown) (no (unknown) (unknown) He also notes some (units (unknown) date) left CP below his unknown) nipple which he says 'always happens when I (unknown) (no (unknown) (unknown) Hemoglobin A1c 9.5 (units (unknown) date) H unknown) (unknown) (no (unknown) (unknown) Hemoglobin A1c (units (unknown) date) unknown) (unknown) (no (unknown) (unknown) Hgb 14.9 (units (unkno wn) date) unknown) (unknown) (no (unknown) (unknown) Hgb (units (unkno wn) date) unknown) (unknown) (no (unknown) (unknown) History + Physical (units (unknown) date) Report unknown) (unknown) (no (unknown) (unknown) History of Present (units (unknown) date) Illness unknown) (unknown) (no (unknown) (unknown) Home Medications (units (unknown) date) and Allergies unknown) (unknown) (no (unknown) (unknown) Home Medications (units (unknown) date) unknown) (unknown) (no (unknown) (unknown) I have reviewed (units (unknown) date) home meds and used unknown) all available resources to reconcile the home (unknown) (no (unknown) (unknown) I spent a total of (units (unknown) date) 35 minutes of unknown) critical care time on this patient's care (unknown) (no (unknown) (unknown) I spent a total of (units (unknown) date) [] minutes of unknown) critical care time on this patient's care (unknown) (no (unknown) (unknown) 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 unknown) (unknown) (no (unknown) (unknown) [facility] (units (unknown) date) [address] unknown) [place] [address] (unknown) (no (unknown) (unknown) Ed Meredith is a (units (unknown) date) 56-year-old male unknown) with past medical history of type 1 diabetes (unknown) (no (unknown) (unknown) Ketones 6.46 H (units (unknown) date) unknown) (unknown) (no (unknown) (unknown) Ketones (units (unkno wn) date) unknown) (unknown) (no (unknown) (unknown) Laboratory Results (units (unknown) date) - last 24 hr unknown) (unknown) (no (unknown) (unknown) Labs (units (unkno wn) date) unknown) (unknown) (no (unknown) (unknown) Labs: (units (unkno wn) date) unknown) (unknown) (no (unknown) (unknown) Lipase 62 (units (unkn own) date) unknown) (unknown) (no (unknown) (unknown) Lipase (units (unkno wn) date) unknown) (unknown) (no (unknown) (unknown) Lymph # (Auto) 700 (units (unknown) date) L unknown) (unknown) (no (unknown) (unknown) Lymph # (Auto) (units (unknown) date) unknown) (unknown) (no (unknown) (unknown) Lymph % (Auto) 6.4 (units (unknown) date) L unknown) (unknown) (no (unknown) (unknown) Lymph % (Auto) (units (unknown) date) unknown) (unknown) (no (unknown) (unknown) MCH 29.7 (units (unkno wn) date) unknown) (unknown) (no (unknown) (unknown) MCH (units (unkno wn) date) unknown) (unknown) (no (unknown) (unknown) MCHC 33.3 (units (unkn own) date) unknown) (unknown) (no (unknown) (unknown) MCHC (units (unkno wn) date) unknown) (unknown) (no (unknown) (unknown) MCV 89.1 (units (unkno wn) date) unknown) (unknown) (no (unknown) (unknown) MCV (units (unkno wn) date) unknown) (unknown) (no (unknown) (unknown) Magnesium 1.8 (units ( unknown) date) unknown) (unknown) (no (unknown) (unknown) Magnesium (units (unkn own) date) unknown) (unknown) (no (unknown) (unknown) Medical History (units (unknown) date) (Reviewed 05/27/22 unknown) @ 19:26 by Dalton Graff DO) (unknown) (no (unknown) (unknown) Medication (units (unk nown) date) Instructions unknown) Recorded Confirmed Type (unknown) (no (unknown) (unknown) Meds (units (unkno wn) date) unknown) (unknown) (no (unknown) (unknown) [place] # (Auto) 300 (units (unknown) date) unknown) (unknown) (no (unknown) (unknown) [place] # (Auto) (units ( unknown) date) unknown) (unknown) (no (unknown) (unknown) [place] % (Auto) 2.7 (units (unknown) date) L unknown) (unknown) (no (unknown) (unknown) [place] % (Auto) (units ( unknown) date) unknown) (unknown) (no (unknown) (unknown) NECK: trachea (units ( unknown) date) midline, no JVD unknown) (unknown) (no (unknown) (unknown) NEURO: awake, (units ( unknown) date) alert, oriented, no unknown) focal deficits (unknown) (no (unknown) (unknown) Narrative (units (unkn own) date) unknown) (unknown) (no (unknown) (unknown) Narrative: (units (unk nown) date) unknown) (unknown) (no (unknown) (unknown) Neut # (Auto) (units ( unknown) date) 36767 H unknown) (unknown) (no (unknown) (unknown) Neut # (Auto) (units ( unknown) date) unknown) (unknown) (no (unknown) (unknown) Neut % (Auto) 90.3 (units (unknown) date) H unknown) (unknown) (no (unknown) (unknown) Neut % (Auto) (units ( unknown) date) unknown) (unknown) (no (unknown) (unknown) Objective (units (unkn own) date) unknown) (unknown) (no (unknown) (unknown) Oxygen Delivery (units (unknown) date) Method Room Air unknown) (unknown) (no (unknown) (unknown) Oxygen Delivery (units (unknown) date) Method unknown) (unknown) (no (unknown) (unknown) PULM: clear (units (un known) date) bilaterally unknown) (unknown) (no (unknown) (unknown) Patient History (units (unknown) date) unknown) (unknown) (no (unknown) (unknown) Patient: (units (unkno wn) date) Ed Meredith MR#: unknown) [id number] (unknown) (no (unknown) (unknown) Phosphorus 3.6 (units (unknown) date) unknown) (unknown) (no (unknown) (unknown) Phosphorus (units (unk nown) date) unknown) (unknown) (no (unknown) (unknown) Plt Count 243 (units ( unknown) date) unknown) (unknown) (no (unknown) (unknown) Plt Count (units (unkn own) date) unknown) (unknown) (no (unknown) (unknown) Potassium 4.4 (units ( unknown) date) unknown) (unknown) (no (unknown) (unknown) Potassium 5.0 (units ( unknown) date) unknown) (unknown) (no (unknown) (unknown) Potassium (units (unkn own) date) unknown) (unknown) (no (unknown) (unknown) Provider: (units (unkn own) date) Rajesh Coles unknown) D.O. (unknown) (no (unknown) (unknown) Proxy is (units ( unknown) date) Juliane. unknown) (unknown) (no (unknown) (unknown) Pulse Oximetry 100 (units (unknown) date) 100 99 unknown) (unknown) (no (unknown) (unknown) Pulse Oximetry 100 (units (unknown) date) 100 unknown) (unknown) (no (unknown) (unknown) Pulse Oximetry 100 (units (unknown) date) unknown) (unknown) (no (unknown) (unknown) Pulse Oximetry 97 (units (unknown) date) 98 unknown) (unknown) (no (unknown) (unknown) Pulse Oximetry 98 (units (unknown) date) 100 unknown) (unknown) (no (unknown) (unknown) Pulse Oximetry 99 (units (unknown) date) 100 unknown) (unknown) (no (unknown) (unknown) Pulse Rate 73 77 (units (unknown) date) unknown) (unknown) (no (unknown) (unknown) Pulse Rate 74 76 (units (unknown) date) unknown) (unknown) (no (unknown) (unknown) Pulse Rate 75 (units ( unknown) date) unknown) (unknown) (no (unknown) (unknown) Pulse Rate 76 77 (units (unknown) date) unknown) (unknown) (no (unknown) (unknown) Pulse Rate 78 76 (units (unknown) date) unknown) (unknown) (no (unknown) (unknown) Pulse Rate 78 (units ( unknown) date) unknown) (unknown) (no (unknown) (unknown) Pulse Rate 79 (units ( unknown) date) unknown) (unknown) (no (unknown) (unknown) Pulse Rate 81 74 (units (unknown) date) unknown) (unknown) (no (unknown) (unknown) Pulse Rate 83 76 (units (unknown) date) 72 unknown) (unknown) (no (unknown) (unknown) Pulse Rate 92 H 80 (units (unknown) date) 77 unknown) (unknown) (no (unknown) (unknown) RBC 5.02 (units (unkno wn) date) unknown) (unknown) (no (unknown) (unknown) RBC (units (unkno wn) date) unknown) (unknown) (no (unknown) (unknown) RDW 13.3 (units (unkno wn) date) unknown) (unknown) (no (unknown) (unknown) RDW (units (unkno wn) date) unknown) (unknown) (no (unknown) (unknown) Respiratory Rate (units (unknown) date) 18 19 18 unknown) (unknown) (no (unknown) (unknown) Respiratory Rate (units (unknown) date) 20 unknown) (unknown) (no (unknown) (unknown) Respiratory Rate (units (unknown) date) 22 15 unknown) (unknown) (no (unknown) (unknown) Respiratory Rate (units (unknown) date) 27 H 28 H unknown) (unknown) (no (unknown) (unknown) Respiratory Rate (units (unknown) date) 28 H 38 H unknown) (unknown) (no (unknown) (unknown) Respiratory Rate (units (unknown) date) 28 H unknown) (unknown) (no (unknown) (unknown) Respiratory Rate (units (unknown) date) 29 H unknown) (unknown) (no (unknown) (unknown) Respiratory Rate (units (unknown) date) 33 H unknown) (unknown) (no (unknown) (unknown) Respiratory Rate (units (unknown) date) 41 H 19 unknown) (unknown) (no (unknown) (unknown) Respiratory Rate (units (unknown) date) 41 H 28 H 27 H unknown) (unknown) (no (unknown) (unknown) Respiratory Rate (units (unknown) date) 44 H 27 H unknown) (unknown) (no (unknown) (unknown) Review of Systems (units (unknown) date) unknown) (unknown) (no (unknown) (unknown) SARS-CoV-2 (PCR) (units (unknown) date) Negative unknown) (unknown) (no (unknown) (unknown) SARS-CoV-2 (PCR) (units (unknown) date) unknown) (unknown) (no (unknown) (unknown) Safety + (units (unkno wn) date) Behavioral: unknown) (unknown) (no (unknown) (unknown) Signed (units (unkno wn) date) By:<Electronically unknown) signed by Rajesh Coles D.O.> (unknown) (no (unknown) (unknown) Smoking Status (units (unknown) date) Former smoker unknown) (unknown) (no (unknown) (unknown) Sodium 132 L (units (u nknown) date) unknown) (unknown) (no (unknown) (unknown) Sodium 136 L (units (u nknown) date) unknown) (unknown) (no (unknown) (unknown) Sodium (units (unkno wn) date) unknown) (unknown) (no (unknown) (unknown) Substance Use Type (units (unknown) date) marijuana unknown) (unknown) (no (unknown) (unknown) TSH 2.80 (units (unkno wn) date) unknown) (unknown) (no (unknown) (unknown) TSH (units (unkno wn) date) unknown) (unknown) (no (unknown) (unknown) Temperature 97.5 F (units (unknown) date) L unknown) (unknown) (no (unknown) (unknown) Temperature (units (un known) date) unknown) (unknown) (no (unknown) (unknown) This patient will (units (unknown) date) be admitted as ICU unknown) and will require greater than 2 midnights (unknown) (no (unknown) (unknown) Time Patient Seen: (units (unknown) date) 19:34 unknown) (unknown) (no (unknown) (unknown) Time Spent With (units (unknown) date) Patient unknown) (unknown) (no (unknown) (unknown) Tobacco + (units (unkn own) date) Substance use: unknown) (unknown) (no (unknown) (unknown) Total Bilirubin (units (unknown) date) 2.2 H unknown) (unknown) (no (unknown) (unknown) Total Bilirubin (units (unknown) date) 2.7 H unknown) (unknown) (no (unknown) (unknown) Total Bilirubin (units (unknown) date) unknown) (unknown) (no (unknown) (unknown) Total Creatine (units (unknown) date) Kinase 57 unknown) (unknown) (no (unknown) (unknown) Total Creatine (units (unknown) date) Kinase unknown) (unknown) (no (unknown) (unknown) Total Protein 6.9 (units (unknown) date) unknown) (unknown) (no (unknown) (unknown) Total Protein 7.8 (units (unknown) date) unknown) (unknown) (no (unknown) (unknown) Total Protein (units ( unknown) date) unknown) (unknown) (no (unknown) (unknown) Troponin I < 0.012 (units (unknown) date) unknown) (unknown) (no (unknown) (unknown) Troponin I (units (unk nown) date) unknown) (unknown) (no (unknown) (unknown) U Benzodiazepines (units (unknown) date) Scrn Negative unknown) (unknown) (no (unknown) (unknown) U Benzodiazepines (units (unknown) date) Scrn unknown) (unknown) (no (unknown) (unknown) U Marijuana (THC) (units (unknown) date) Screen Positive H unknown) (unknown) (no (unknown) (unknown) U Marijuana (THC) (units (unknown) date) Screen unknown) (unknown) (no (unknown) (unknown) U Methamphetamines (units (unknown) date) Scrn Negative unknown) (unknown) (no (unknown) (unknown) U Methamphetamines (units (unknown) date) Scrn unknown) (unknown) (no (unknown) (unknown) U Opiates 300ng/mL (units (unknown) date) cut Negative unknown) (unknown) (no (unknown) (unknown) U Opiates 300ng/mL (units (unknown) date) cut unknown) (unknown) (no (unknown) (unknown) U Tricyclic (units (un known) date) Antidepress unknown) Negative (unknown) (no (unknown) (unknown) U Tricyclic (units (un known) date) Antidepress unknown) (unknown) (no (unknown) (unknown) U-100 Insulin) (units (unknown) date) unknown) (unknown) (no (unknown) (unknown) Ur Amphetamines (units (unknown) date) Screen Negative unknown) (unknown) (no (unknown) (unknown) Ur Amphetamines (units (unknown) date) Screen unknown) (unknown) (no (unknown) (unknown) Ur Barbiturates (units (unknown) date) Screen Negative unknown) (unknown) (no (unknown) (unknown) Ur Barbiturates (units (unknown) date) Screen unknown) (unknown) (no (unknown) (unknown) Ur Culture (units (unk nown) date) Indicated? Cult not unknown) indicated (unknown) (no (unknown) (unknown) Ur Culture (units (unk nown) date) Indicated? unknown) (unknown) (no (unknown) (unknown) Ur Leukocyte (units (u nknown) date) Esterase Negative unknown) (unknown) (no (unknown) (unknown) Ur Leukocyte (units (u nknown) date) Esterase unknown) (unknown) (no (unknown) (unknown) Ur MDMA Scrn (units (u nknown) date) (Ecstasy) Negative unknown) (unknown) (no (unknown) (unknown) Ur MDMA Scrn (units (u nknown) date) (Ecstasy) unknown) (unknown) (no (unknown) (unknown) Ur Oxycodone (units (u nknown) date) Screen Negative unknown) (unknown) (no (unknown) (unknown) Ur Oxycodone (units (u nknown) date) Screen unknown) (unknown) (no (unknown) (unknown) Ur Phencyclidine (units (unknown) date) Scrn Negative unknown) (unknown) (no (unknown) (unknown) Ur Phencyclidine (units (unknown) date) Scrn unknown) (unknown) (no (unknown) (unknown) Ur Specific (units (un known) date) [place] 1.010 unknown) (unknown) (no (unknown) (unknown) Ur Specific (units (un known) date) [place] unknown) (unknown) (no (unknown) (unknown) Urine Appearance (units (unknown) date) Clear unknown) (unknown) (no (unknown) (unknown) Urine Appearance (units (unknown) date) unknown) (unknown) (no (unknown) (unknown) Urine Bacteria (units (unknown) date) None seen unknown) (unknown) (no (unknown) (unknown) Urine Bacteria (units (unknown) date) unknown) (unknown) (no (unknown) (unknown) Urine Bilirubin (units (unknown) date) Negative unknown) (unknown) (no (unknown) (unknown) Urine Bilirubin (units (unknown) date) unknown) (unknown) (no (unknown) (unknown) Urine Cocaine (units ( unknown) date) Screen Negative unknown) (unknown) (no (unknown) (unknown) Urine Cocaine (units ( unknown) date) Screen unknown) (unknown) (no (unknown) (unknown) Urine Color Yellow (units (unknown) date) unknown) (unknown) (no (unknown) (unknown) Urine Color (units (un known) date) unknown) (unknown) (no (unknown) (unknown) Urine Glucose (UA) (units (unknown) date) 3+ H unknown) (unknown) (no (unknown) (unknown) Urine Glucose (UA) (units (unknown) date) unknown) (unknown) (no (unknown) (unknown) Urine Ketones 3+ H (units (unknown) date) unknown) (unknown) (no (unknown) (unknown) Urine Ketones (units ( unknown) date) unknown) (unknown) (no (unknown) (unknown) Urine Methadone (units (unknown) date) Screen Negative unknown) (unknown) (no (unknown) (unknown) Urine Methadone (units (unknown) date) Screen unknown) (unknown) (no (unknown) (unknown) Urine Nitrate (units ( unknown) date) Negative unknown) (unknown) (no (unknown) (unknown) Urine Nitrate (units ( unknown) date) unknown) (unknown) (no (unknown) (unknown) Urine Occult Blood (units (unknown) date) Negative unknown) (unknown) (no (unknown) (unknown) Urine Occult Blood (units (unknown) date) unknown) (unknown) (no (unknown) (unknown) Urine Protein (units ( unknown) date) Negative unknown) (unknown) (no (unknown) (unknown) Urine Protein (units ( unknown) date) unknown) (unknown) (no (unknown) (unknown) Urine RBC None (units (unknown) date) seen unknown) (unknown) (no (unknown) (unknown) Urine RBC (units (unkn own) date) unknown) (unknown) (no (unknown) (unknown) Urine Urobilinogen (units (unknown) date) 0.2 unknown) (unknown) (no (unknown) (unknown) Urine Urobilinogen (units (unknown) date) unknown) (unknown) (no (unknown) (unknown) Urine WBC None (units (unknown) date) seen unknown) (unknown) (no (unknown) (unknown) Urine WBC (units (unkn own) date) unknown) (unknown) (no (unknown) (unknown) Urine pH 6.0 (units (u nknown) date) unknown) (unknown) (no (unknown) (unknown) Urine pH (units (unkno wn) date) unknown) (unknown) (no (unknown) (unknown) VBG Base Excess (units (unknown) date) -11.0 L unknown) (unknown) (no (unknown) (unknown) VBG Base Excess (units (unknown) date) unknown) (unknown) (no (unknown) (unknown) VBG HCO3 15 L (units ( unknown) date) unknown) (unknown) (no (unknown) (unknown) VBG HCO3 (units (unkno wn) date) unknown) (unknown) (no (unknown) (unknown) VBG O2 Saturation (units (unknown) date) 46 L unknown) (unknown) (no (unknown) (unknown) VBG O2 Saturation (units (unknown) date) unknown) (unknown) (no (unknown) (unknown) VBG Total CO2 16 L (units (unknown) date) unknown) (unknown) (no (unknown) (unknown) VBG Total CO2 (units ( unknown) date) unknown) (unknown) (no (unknown) (unknown) VBG pCO2 26.7 L (units (unknown) date) unknown) (unknown) (no (unknown) (unknown) VBG pCO2 (units (unkno wn) date) unknown) (unknown) (no (unknown) (unknown) VBG pH 7.35 (units (un known) date) unknown) (unknown) (no (unknown) (unknown) VBG pH (units (unkno wn) date) unknown) (unknown) (no (unknown) (unknown) VBG pO2 26 L (units (u nknown) date) unknown) (unknown) (no (unknown) (unknown) VBG pO2 (units (unkno wn) date) unknown) (unknown) (no (unknown) (unknown) Vital Signs (units (un known) date) unknown) (unknown) (no (unknown) (unknown) WBC 11.2 H (units (unk nown) date) unknown) (unknown) (no (unknown) (unknown) WBC (units (unkno wn) date) unknown) (unknown) (no (unknown) (unknown) [Embedded Image (units (unknown) date) Not Available] unknown) (unknown) (no (unknown) (unknown) [From Novolog (units ( unknown) date) U-100 Insulin unknown) injection (unknown) (no (unknown) (unknown) alcohol intake (units (unknown) date) frequency unknown) holiday/special occasion (unknown) (no (unknown) (unknown) alcohol intake (units (unknown) date) never unknown) (unknown) (no (unknown) (unknown) aspart] site (units (u nknown) date) unknown) (unknown) (no (unknown) (unknown) bicarb of 12. (units (u nknown) date) Patient states he unknown) woke up this morning feeling fine, then ate some (unknown) (no (unknown) (unknown) breakfast and (units ( unknown) date) noticed her BG of unknown) >400 so he bolused some insulin through his (unknown) (no (unknown) (unknown) codeine [CODEINE] (units (unknown) date) Allergy Unknown unknown) Verified 05/27/22 13:06 (unknown) (no (unknown) (unknown) currently on an (units (unknown) date) insulin drip and is unknown) asking for water and feels slightly hungry. (unknown) (no (unknown) (unknown) cyclobenzaprine 5 (units (unknown) date) mg tablet 5 mg PO unknown) TID PRN muscle spasm #10 10/16/17 Rx (unknown) (no (unknown) (unknown) denies NV, SOB, (units (unknown) date) abd pain, dysuria unknown) or diarrhea. (unknown) (no (unknown) (unknown) denies any issues (units (unknown) date) with his insulin unknown) pump but says he noticed his roommates had (unknown) (no (unknown) (unknown) doxycycline (units (un known) date) [DOXYCYCLINE] unknown) Allergy Unknown Verified 05/27/22 13:06 (unknown) (no (unknown) (unknown) have DKA'. The CP (units (unknown) date) lasted a few hours unknown) then went away with treatment in the ED. He (unknown) (no (unknown) (unknown) insulin aspart (units (unknown) date) Allergy Unknown unknown) Rash at Verified 05/27/22 13:20 (unknown) (no (unknown) (unknown) insulin lispro 100 (units (unknown) date) unit/mL 55 unit unknown) SLIDE ##0 08/30/10 History (unknown) (no (unknown) (unknown) insulin pump. He (units (unknown) date) then began to feel unknown) worse with diaphoresis so came to the ED. He (unknown) (no (unknown) (unknown) meds. (units (unkno wn) date) unknown) (unknown) (no (unknown) (unknown) of hospital time (units (unknown) date) to treat DKA. unknown) (unknown) (no (unknown) (unknown) omeprazole (units (unk nown) date) [OMEPRAZOLE] unknown) Allergy Unknown Verified 05/27/22 13:06 (unknown) (no (unknown) (unknown) stated. (units (unkno wn) date) unknown) (unknown) (no (unknown) (unknown) subcutaneous (units (u nknown) date) solution (Humalog unknown) (unknown) (no (unknown) (unknown) tabs (units (unkno wn) date) unknown) (unknown) (no (unknown) (unknown) to stay above 45 (units (unknown) date) degrees. He also unknown) notes he has had a toothache for the past (unknown) (no (unknown) (unknown) today; this time (units (unknown) date) is exclusive of unknown) procedural time. (unknown) (no (unknown) (unknown) toothache for 1 (units (unknown) date) week unknown) (unknown) (no (unknown) (unknown) turned down the (units (unknown) date) fridge temp so it unknown) was at 42 degrees and his insulin is supposed (unknown) (no (unknown) (unknown) week. Hasn't seen (units (unknown) date) a dentist due to unknown) his social security check being late. He is (unknown) (no (unknown) (unknown) with 3 DKA (units (unk nown) date) episodes in the unknown) past 6 months who presents with DKA. Anion gap 26, Result panel 300 (unknown) (no (unknown) (unknown) (no value) (units (unk nown) date) unknown) (unknown) (no (unknown) (unknown) (past 8 hours): (units (unknown) date) unknown) (unknown) (no (unknown) (unknown) -DKA protocol (units ( unknown) date) unknown) (unknown) (no (unknown) (unknown) -abx (units (unkno wn) date) unknown) (unknown) (no (unknown) (unknown) -check cxs (units (unk nown) date) unknown) (unknown) (no (unknown) (unknown) -gi/dvt ppx (units (un known) date) unknown) (unknown) (no (unknown) (unknown) -ivf/insulin (units (u nknown) date) unknown) (unknown) (no (unknown) (unknown) -monitor ins/outs (units (unknown) date) unknown) (unknown) (no (unknown) (unknown) -please call eICU (units (unknown) date) if condition unknown) changes (unknown) (no (unknown) (unknown) -replace lytes (units (unknown) date) unknown) (unknown) (no (unknown) (unknown) 05/27/22 05/27/22 (units (unknown) date) 05/27/22 unknown) (unknown) (no (unknown) (unknown) 05/27/22 13:50 (units (unknown) date) unknown) (unknown) (no (unknown) (unknown) 05/27/22 16:50 (units (unknown) date) unknown) (unknown) (no (unknown) (unknown) 05/27/222020 (units ( unknown) date) unknown) (unknown) (no (unknown) (unknown) 05/27/22 (units (unkno wn) date) unknown) (unknown) (no (unknown) (unknown) 12:55 13:50 13:50 (units (unknown) date) unknown) (unknown) (no (unknown) (unknown) 13:06 05/27/22 (units (unknown) date) unknown) (unknown) (no (unknown) (unknown) 13:37 05/27/22 (units (unknown) date) unknown) (unknown) (no (unknown) (unknown) 13:37 (units (unkno wn) date) unknown) (unknown) (no (unknown) (unknown) 13:40 05/27/22 (units (unknown) date) unknown) (unknown) (no (unknown) (unknown) 13:45 05/27/22 (units (unknown) date) unknown) (unknown) (no (unknown) (unknown) 13:45 (units (unkno wn) date) unknown) (unknown) (no (unknown) (unknown) 13:50 13:50 13:50 (units (unknown) date) unknown) (unknown) (no (unknown) (unknown) 13:55 05/27/22 (units (unknown) date) unknown) (unknown) (no (unknown) (unknown) 13:55 (units (unkno wn) date) unknown) (unknown) (no (unknown) (unknown) 14:00 05/27/22 (units (unknown) date) unknown) (unknown) (no (unknown) (unknown) 14:05 05/27/22 (units (unknown) date) unknown) (unknown) (no (unknown) (unknown) 14:05 (units (unkno wn) date) unknown) (unknown) (no (unknown) (unknown) 14:10 05/27/22 (units (unknown) date) unknown) (unknown) (no (unknown) (unknown) 14:10 (units (unkno wn) date) unknown) (unknown) (no (unknown) (unknown) 14:15 05/27/22 (units (unknown) date) unknown) (unknown) (no (unknown) (unknown) 14:15 14:40 14:40 (units (unknown) date) unknown) (unknown) (no (unknown) (unknown) 14:20 05/27/22 (units (unknown) date) unknown) (unknown) (no (unknown) (unknown) 14:20 (units (unkno wn) date) unknown) (unknown) (no (unknown) (unknown) 14:28 05/27/22 (units (unknown) date) unknown) (unknown) (no (unknown) (unknown) 14:28 (units (unkno wn) date) unknown) (unknown) (no (unknown) (unknown) 14:30 05/27/22 (units (unknown) date) unknown) (unknown) (no (unknown) (unknown) 14:41 05/27/22 (units (unknown) date) unknown) (unknown) (no (unknown) (unknown) 14:41 (units (unkno wn) date) unknown) (unknown) (no (unknown) (unknown) 14:45 05/27/22 (units (unknown) date) unknown) (unknown) (no (unknown) (unknown) 15:00 05/27/22 (units (unknown) date) unknown) (unknown) (no (unknown) (unknown) 15:00 (units (unkno wn) date) unknown) (unknown) (no (unknown) (unknown) 15:12 16:28 16:50 (units (unknown) date) unknown) (unknown) (no (unknown) (unknown) 15:30 05/27/22 (units (unknown) date) unknown) (unknown) (no (unknown) (unknown) 16:00 (units (unkno wn) date) unknown) (unknown) (no (unknown) (unknown) 16:30 05/27/22 (units (unknown) date) unknown) (unknown) (no (unknown) (unknown) 17:00 05/27/22 (units (unknown) date) unknown) (unknown) (no (unknown) (unknown) 17:30 (units (unkno wn) date) unknown) (unknown) (no (unknown) (unknown) 17:53 05/27/22 (units (unknown) date) unknown) (unknown) (no (unknown) (unknown) 18:00 05/27/22 (units (unknown) date) unknown) (unknown) (no (unknown) (unknown) 18:00 (units (unkno wn) date) unknown) (unknown) (no (unknown) (unknown) 18:15 05/27/22 (units (unknown) date) unknown) (unknown) (no (unknown) (unknown) 18:15 (units (unkno wn) date) unknown) (unknown) (no (unknown) (unknown) 18:30 05/27/22 (units (unknown) date) unknown) (unknown) (no (unknown) (unknown) 18:45 05/27/22 (units (unknown) date) unknown) (unknown) (no (unknown) (unknown) 18:45 (units (unkno wn) date) unknown) (unknown) (no (unknown) (unknown) 19:00 05/27/22 (units (unknown) date) unknown) (unknown) (no (unknown) (unknown) 19:09 05/27/22 (units (unknown) date) unknown) (unknown) (no (unknown) (unknown) 19:09 (units (unkno wn) date) unknown) (unknown) (no (unknown) (unknown) 19:15 05/27/22 (units (unknown) date) unknown) (unknown) (no (unknown) (unknown) 19:15 (units (unkno wn) date) unknown) (unknown) (no (unknown) (unknown) 19:30 05/27/22 (units (unknown) date) unknown) (unknown) (no (unknown) (unknown) 19:30 (units (unkno wn) date) unknown) (unknown) (no (unknown) (unknown) 19:43 (units (unkno wn) date) unknown) (unknown) (no (unknown) (unknown) 56 year old male (units (unknown) date) with PMHx of DM unknown) (unknown) (no (unknown) (unknown) 6599 (units (unkno wn) date) unknown) (unknown) (no (unknown) (unknown) ABG Base Excess (units (unknown) date) -15.0 L unknown) (unknown) (no (unknown) (unknown) ABG Base Excess (units (unknown) date) unknown) (unknown) (no (unknown) (unknown) ABG HCO3 12 L (units ( unknown) date) unknown) (unknown) (no (unknown) (unknown) ABG HCO3 (units (unkno wn) date) unknown) (unknown) (no (unknown) (unknown) ABG O2 Saturation (units (unknown) date) 97 unknown) (unknown) (no (unknown) (unknown) ABG O2 Saturation (units (unknown) date) unknown) (unknown) (no (unknown) (unknown) ABG Total CO2 12 L (units (unknown) date) unknown) (unknown) (no (unknown) (unknown) ABG Total CO2 (units ( unknown) date) unknown) (unknown) (no (unknown) (unknown) ABG pCO2 24.9 L* (units (unknown) date) unknown) (unknown) (no (unknown) (unknown) ABG pCO2 (units (unkno wn) date) unknown) (unknown) (no (unknown) (unknown) ABG pH 7.27 L* (units (unknown) date) unknown) (unknown) (no (unknown) (unknown) ABG pH (units (unkno wn) date) unknown) (unknown) (no (unknown) (unknown) ABG pO2 99 (units (unk nown) date) unknown) (unknown) (no (unknown) (unknown) ABG pO2 (units (unkno wn) date) unknown) (unknown) (no (unknown) (unknown) AH 25 (units (unkno wn) date) unknown) (unknown) (no (unknown) (unknown) ALT 40 (units (unkno wn) date) unknown) (unknown) (no (unknown) (unknown) ALT 44 (units (unkno wn) date) unknown) (unknown) (no (unknown) (unknown) ALT (units (unkno wn) date) unknown) (unknown) (no (unknown) (unknown) AST 27 (units (unkno wn) date) unknown) (unknown) (no (unknown) (unknown) AST 30 (units (unkno wn) date) unknown) (unknown) (no (unknown) (unknown) AST (units (unkno wn) date) unknown) (unknown) (no (unknown) (unknown) Age/Sex: 56 / M (units (unknown) date) unknown) (unknown) (no (unknown) (unknown) Albumin 4.1 (units (un known) date) unknown) (unknown) (no (unknown) (unknown) Albumin 4.7 (units (un known) date) unknown) (unknown) (no (unknown) (unknown) Albumin (units (unkno wn) date) unknown) (unknown) (no (unknown) (unknown) Albumin/Globulin (units (unknown) date) Ratio 1.5 unknown) (unknown) (no (unknown) (unknown) Albumin/Globulin (units (unknown) date) Ratio unknown) (unknown) (no (unknown) (unknown) Alkaline (units (unkno wn) date) Phosphatase 104 unknown) (unknown) (no (unknown) (unknown) Alkaline (units (unkno wn) date) Phosphatase 79 unknown) (unknown) (no (unknown) (unknown) Alkaline (units (unkno wn) date) Phosphatase unknown) (unknown) (no (unknown) (unknown) Amorphous Sediment (units (unknown) date) 1 unknown) (unknown) (no (unknown) (unknown) Amorphous Sediment (units (unknown) date) unknown) (unknown) (no (unknown) (unknown) Assessment + Plan (units (unknown) date) narrative: unknown) (unknown) (no (unknown) (unknown) Assessment + Plan (units (unknown) date) unknown) (unknown) (no (unknown) (unknown) BUN 23 H (units (unkno wn) date) unknown) (unknown) (no (unknown) (unknown) BUN 24 H (units (unkno wn) date) unknown) (unknown) (no (unknown) (unknown) BUN (units (unkno wn) date) unknown) (unknown) (no (unknown) (unknown) BUN/Creatinine (units (unknown) date) Ratio 20.0 unknown) (unknown) (no (unknown) (unknown) BUN/Creatinine (units (unknown) date) Ratio 21.4 unknown) (unknown) (no (unknown) (unknown) BUN/Creatinine (units (unknown) date) Ratio unknown) (unknown) (no (unknown) (unknown) Baso # (Auto) 100 (units (unknown) date) unknown) (unknown) (no (unknown) (unknown) Baso # (Auto) (units ( unknown) date) unknown) (unknown) (no (unknown) (unknown) Baso % (Auto) 0.5 (units (unknown) date) unknown) (unknown) (no (unknown) (unknown) Baso % (Auto) (units ( unknown) date) unknown) (unknown) (no (unknown) (unknown) Blood Pressure (units (unknown) date) 119/65 unknown) (unknown) (no (unknown) (unknown) Blood Pressure (units (unknown) date) 120/58 L 117/56 L unknown) (unknown) (no (unknown) (unknown) Blood Pressure (units (unknown) date) 121/58 L unknown) (unknown) (no (unknown) (unknown) Blood Pressure (units (unknown) date) 123/62 unknown) (unknown) (no (unknown) (unknown) Blood Pressure (units (unknown) date) 125/58 L 119/59 L unknown) (unknown) (no (unknown) (unknown) Blood Pressure (units (unknown) date) 127/60 unknown) (unknown) (no (unknown) (unknown) Blood Pressure (units (unknown) date) 128/58 L unknown) (unknown) (no (unknown) (unknown) Blood Pressure (units (unknown) date) 131/62 unknown) (unknown) (no (unknown) (unknown) Blood Pressure (units (unknown) date) 132/68 unknown) (unknown) (no (unknown) (unknown) Blood Pressure (units (unknown) date) 133/61 152/61 H unknown) (unknown) (no (unknown) (unknown) Blood Pressure (units (unknown) date) 139/63 141/97 H unknown) (unknown) (no (unknown) (unknown) Blood Pressure (units (unknown) date) 140/61 108/53 L unknown) (unknown) (no (unknown) (unknown) Blood Pressure (units (unknown) date) 142/87 H unknown) (unknown) (no (unknown) (unknown) Blood Pressure (units (unknown) date) 144/58 H 148/67 H unknown) (unknown) (no (unknown) (unknown) Blood Pressure (units (unknown) date) 148/69 H 129/63 unknown) (unknown) (no (unknown) (unknown) Blood Pressure (units (unknown) date) unknown) (unknown) (no (unknown) (unknown) CK-MB (CK-2) Rel (units (unknown) date) Index TNP unknown) (unknown) (no (unknown) (unknown) CK-MB (CK-2) Rel (units (unknown) date) Index unknown) (unknown) (no (unknown) (unknown) CK-MB (CK-2) TNP (units (unknown) date) unknown) (unknown) (no (unknown) (unknown) CK-MB (CK-2) (units (u nknown) date) unknown) (unknown) (no (unknown) (unknown) CONT SRIDEVI Infusion (units (unknown) date) unknown) (unknown) (no (unknown) (unknown) Calcium 8.8 (units (un known) date) unknown) (unknown) (no (unknown) (unknown) Calcium 9.7 (units (un known) date) unknown) (unknown) (no (unknown) (unknown) Calcium (units (unkno wn) date) unknown) (unknown) (no (unknown) (unknown) Carbon Dioxide 12 (units (unknown) date) L unknown) (unknown) (no (unknown) (unknown) Carbon Dioxide 8 (units (unknown) date) L* unknown) (unknown) (no (unknown) (unknown) Carbon Dioxide (units (unknown) date) unknown) (unknown) (no (unknown) (unknown) Chief complaint: (units (unknown) date) chest pain/ n+v/ unknown) high glucose (unknown) (no (unknown) (unknown) Chloride 103 (units (u nknown) date) unknown) (unknown) (no (unknown) (unknown) Chloride 94 L (units ( unknown) date) unknown) (unknown) (no (unknown) (unknown) Chloride (units (unkno wn) date) unknown) (unknown) (no (unknown) (unknown) Consent obtained (units (unknown) date) for unknown) tele-insurance account executive care: Yes (unknown) (no (unknown) (unknown) Consult details (units (unknown) date) unknown) (unknown) (no (unknown) (unknown) Creatinine 1.12 (units (unknown) date) unknown) (unknown) (no (unknown) (unknown) Creatinine 1.15 (units (unknown) date) unknown) (unknown) (no (unknown) (unknown) Creatinine (units (unk nown) date) unknown) (unknown) (no (unknown) (unknown) Critical Care (units ( unknown) date) time: unknown) (unknown) (no (unknown) (unknown) Current (units (unkno wn) date) Medications unknown) (unknown) (no (unknown) (unknown) DKA (units (unkno wn) date) unknown) (unknown) (no (unknown) (unknown) : 1965 (units (unknown) date) Acct:[id number] unknown) (unknown) (no (unknown) (unknown) Date of Service: (units (unknown) date) 05/27/22 unknown) (unknown) (no (unknown) (unknown) Eos # (Auto) 0 (units (unknown) date) unknown) (unknown) (no (unknown) (unknown) Eos # (Auto) (units (u nknown) date) unknown) (unknown) (no (unknown) (unknown) Eos % (Auto) 0.1 L (units (unknown) date) unknown) (unknown) (no (unknown) (unknown) Eos % (Auto) (units (u nknown) date) unknown) (unknown) (no (unknown) (unknown) Estimated GFR > 60 (units (unknown) date) unknown) (unknown) (no (unknown) (unknown) Estimated GFR (units ( unknown) date) unknown) (unknown) (no (unknown) (unknown) Ethyl Alcohol < 10 (units (unknown) date) unknown) (unknown) (no (unknown) (unknown) Ethyl Alcohol (units ( unknown) date) unknown) (unknown) (no (unknown) (unknown) Exam (units (unkno wn) date) unknown) (unknown) (no (unknown) (unknown) FiO2 21 (units (unkno wn) date) unknown) (unknown) (no (unknown) (unknown) FiO2 (units (unkno wn) date) unknown) (unknown) (no (unknown) (unknown) Generic Name Dose (units (unknown) date) Route Start Last unknown) Admin (unknown) (no (unknown) (unknown) Globulin 2.8 (units (u nknown) date) unknown) (unknown) (no (unknown) (unknown) Globulin 3.1 (units (u nknown) date) unknown) (unknown) (no (unknown) (unknown) Globulin (units (unkno wn) date) unknown) (unknown) (no (unknown) (unknown) Glucose 532 H* (units (unknown) date) unknown) (unknown) (no (unknown) (unknown) Glucose 731 H* (units (unknown) date) unknown) (unknown) (no (unknown) (unknown) Glucose (units (unkno wn) date) unknown) (unknown) (no (unknown) (unknown) Hct 44.7 (units (unkno wn) date) unknown) (unknown) (no (unknown) (unknown) Hct (units (unkno wn) date) unknown) (unknown) (no (unknown) (unknown) Hemoglobin A1c 9.5 (units (unknown) date) H unknown) (unknown) (no (unknown) (unknown) Hemoglobin A1c (units (unknown) date) unknown) (unknown) (no (unknown) (unknown) Hgb 14.9 (units (unkno wn) date) unknown) (unknown) (no (unknown) (unknown) Hgb (units (unkno wn) date) unknown) (unknown) (no (unknown) (unknown) History of Present (units (unknown) date) Illness unknown) (unknown) (no (unknown) (unknown) Home Medications (units (unknown) date) unknown) (unknown) (no (unknown) (unknown) I spent a total of (units (unknown) date) [] minutes of unknown) critical care time on this patient's care (unknown) (no (unknown) (unknown) IF CAMERA (units (unkn own) date) ACTIVATED, patient unknown) seen via real-time interactive audiovisual (unknown) (no (unknown) (unknown) INSULIN DRIP (units (u nknown) date) PREMIX 100 unit in unknown) 100 mls @ 6 mls/hr 05/27/22 15:00 05/27/22 (unknown) (no (unknown) (unknown) Instructions (units (u nknown) date) .Route .COMPLEX ##0 unknown) 08/30/10 [History Confirmed 05/27/22] (unknown) (no (unknown) (unknown) 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 unknown) (unknown) (no (unknown) (unknown) [facility] (units (unknown) date) [address] unknown) [place] [address] (unknown) (no (unknown) (unknown) Ketones 6.46 H (units (unknown) date) unknown) (unknown) (no (unknown) (unknown) Ketones (units (unkno wn) date) unknown) (unknown) (no (unknown) (unknown) Laboratory Results (units (unknown) date) - last 24 hr unknown) (unknown) (no (unknown) (unknown) Labs (units (unkno wn) date) unknown) (unknown) (no (unknown) (unknown) Labs: (units (unkno wn) date) unknown) (unknown) (no (unknown) (unknown) Lipase 62 (units (unkn own) date) unknown) (unknown) (no (unknown) (unknown) Lipase (units (unkno wn) date) unknown) (unknown) (no (unknown) (unknown) Lymph # (Auto) 700 (units (unknown) date) L unknown) (unknown) (no (unknown) (unknown) Lymph # (Auto) (units (unknown) date) unknown) (unknown) (no (unknown) (unknown) Lymph % (Auto) 6.4 (units (unknown) date) L unknown) (unknown) (no (unknown) (unknown) Lymph % (Auto) (units (unknown) date) unknown) (unknown) (no (unknown) (unknown) MCH 29.7 (units (unkno wn) date) unknown) (unknown) (no (unknown) (unknown) MCH (units (unkno wn) date) unknown) (unknown) (no (unknown) (unknown) MCHC 33.3 (units (unkn own) date) unknown) (unknown) (no (unknown) (unknown) MCHC (units (unkno wn) date) unknown) (unknown) (no (unknown) (unknown) MCV 89.1 (units (unkno wn) date) unknown) (unknown) (no (unknown) (unknown) MCV (units (unkno wn) date) unknown) (unknown) (no (unknown) (unknown) Magnesium 1.8 (units ( unknown) date) unknown) (unknown) (no (unknown) (unknown) Magnesium (units (unkn own) date) unknown) (unknown) (no (unknown) (unknown) Medical History (units (unknown) date) (Reviewed 05/27/22 unknown) @ 19:26 by Dalton Graff DO) (unknown) (no (unknown) (unknown) Medications: (units (u nknown) date) unknown) (unknown) (no (unknown) (unknown) [place] # (Auto) 300 (units (unknown) date) unknown) (unknown) (no (unknown) (unknown) [place] # (Auto) (units ( unknown) date) unknown) (unknown) (no (unknown) (unknown) [place] % (Auto) 2.7 (units (unknown) date) L unknown) (unknown) (no (unknown) (unknown) [place] % (Auto) (units ( unknown) date) unknown) (unknown) (no (unknown) (unknown) Myxredlin Drip (units (unknown) date) Premix IV 12 mls/hr unknown) (unknown) (no (unknown) (unknown) NOW PRN (units (unkno wn) date) Administration unknown) (unknown) (no (unknown) (unknown) Nausea And (units (unk nown) date) Vomiting unknown) (unknown) (no (unknown) (unknown) Neut # (Auto) (units ( unknown) date) [address] H unknown) (unknown) (no (unknown) (unknown) Neut # (Auto) (units ( unknown) date) unknown) (unknown) (no (unknown) (unknown) Neut % (Auto) 90.3 (units (unknown) date) H unknown) (unknown) (no (unknown) (unknown) Neut % (Auto) (units ( unknown) date) unknown) (unknown) (no (unknown) (unknown) Normal Saline 0.9% (units (unknown) date) IV Infused unknown) (unknown) (no (unknown) (unknown) Objective (units (unkn own) date) unknown) (unknown) (no (unknown) (unknown) Ondansetron 4 Mg/2 (units (unknown) date) Ml Inj IV 4 mg unknown) (unknown) (no (unknown) (unknown) Ondansetron HCl 4 (units (unknown) date) mg 05/27/22 13:09 unknown) 05/27/22 14:06 (unknown) (no (unknown) (unknown) Other (units (unkno wn) date) participants/roles: unknown) Dr. Coles (unknown) (no (unknown) (unknown) Oxygen Delivery (units (unknown) date) Method Room Air unknown) (unknown) (no (unknown) (unknown) Oxygen Delivery (units (unknown) date) Method unknown) (unknown) (no (unknown) (unknown) PFSH (units (unkno wn) date) unknown) (unknown) (no (unknown) (unknown) Patient Location: (units (unknown) date) ICU unknown) (unknown) (no (unknown) (unknown) Patient: (units (unkno wn) date) Ed Meredith MR#: unknown) [id number] (unknown) (no (unknown) (unknown) Phosphorus 3.6 (units (unknown) date) unknown) (unknown) (no (unknown) (unknown) Phosphorus (units (unk nown) date) unknown) (unknown) (no (unknown) (unknown) Plt Count 243 (units ( unknown) date) unknown) (unknown) (no (unknown) (unknown) Plt Count (units (unkn own) date) unknown) (unknown) (no (unknown) (unknown) Potassium 4.4 (units ( unknown) date) unknown) (unknown) (no (unknown) (unknown) Potassium 5.0 (units ( unknown) date) unknown) (unknown) (no (unknown) (unknown) Potassium (units (unkn own) date) unknown) (unknown) (no (unknown) (unknown) Protocol (units (unkno wn) date) unknown) (unknown) (no (unknown) (unknown) Provider location (units (unknown) date) (State): [place] unknown) (unknown) (no (unknown) (unknown) Provider: Marcell (units (unknown) date) Leandra unknown) (unknown) (no (unknown) (unknown) Pulse Oximetry 100 (units (unknown) date) 100 99 unknown) (unknown) (no (unknown) (unknown) Pulse Oximetry 100 (units (unknown) date) 100 unknown) (unknown) (no (unknown) (unknown) Pulse Oximetry 100 (units (unknown) date) unknown) (unknown) (no (unknown) (unknown) Pulse Oximetry 97 (units (unknown) date) 98 unknown) (unknown) (no (unknown) (unknown) Pulse Oximetry 98 (units (unknown) date) 100 unknown) (unknown) (no (unknown) (unknown) Pulse Oximetry 98 (units (unknown) date) unknown) (unknown) (no (unknown) (unknown) Pulse Oximetry 99 (units (unknown) date) 100 unknown) (unknown) (no (unknown) (unknown) Pulse Oximetry 99 (units (unknown) date) 99 unknown) (unknown) (no (unknown) (unknown) Pulse Oximetry 99 (units (unknown) date) unknown) (unknown) (no (unknown) (unknown) Pulse Oximetry (units (unknown) date) unknown) (unknown) (no (unknown) (unknown) Pulse Rate 70 (units ( unknown) date) unknown) (unknown) (no (unknown) (unknown) Pulse Rate 73 77 (units (unknown) date) unknown) (unknown) (no (unknown) (unknown) Pulse Rate 74 76 (units (unknown) date) unknown) (unknown) (no (unknown) (unknown) Pulse Rate 74 (units ( unknown) date) unknown) (unknown) (no (unknown) (unknown) Pulse Rate 75 75 (units (unknown) date) unknown) (unknown) (no (unknown) (unknown) Pulse Rate 75 (units ( unknown) date) unknown) (unknown) (no (unknown) (unknown) Pulse Rate 76 76 (units (unknown) date) unknown) (unknown) (no (unknown) (unknown) Pulse Rate 76 77 (units (unknown) date) unknown) (unknown) (no (unknown) (unknown) Pulse Rate 77 (units ( unknown) date) unknown) (unknown) (no (unknown) (unknown) Pulse Rate 78 76 (units (unknown) date) unknown) (unknown) (no (unknown) (unknown) Pulse Rate 78 78 (units (unknown) date) unknown) (unknown) (no (unknown) (unknown) Pulse Rate 78 (units ( unknown) date) unknown) (unknown) (no (unknown) (unknown) Pulse Rate 79 (units ( unknown) date) unknown) (unknown) (no (unknown) (unknown) Pulse Rate 81 74 (units (unknown) date) unknown) (unknown) (no (unknown) (unknown) Pulse Rate 83 76 (units (unknown) date) 72 unknown) (unknown) (no (unknown) (unknown) Pulse Rate 92 H 80 (units (unknown) date) 77 unknown) (unknown) (no (unknown) (unknown) RBC 5.02 (units (unkno wn) date) unknown) (unknown) (no (unknown) (unknown) RBC (units (unkno wn) date) unknown) (unknown) (no (unknown) (unknown) RDW 13.3 (units (unkno wn) date) unknown) (unknown) (no (unknown) (unknown) RDW (units (unkno wn) date) unknown) (unknown) (no (unknown) (unknown) Respiratory Rate (units (unknown) date) 18 19 18 unknown) (unknown) (no (unknown) (unknown) Respiratory Rate (units (unknown) date) 20 unknown) (unknown) (no (unknown) (unknown) Respiratory Rate (units (unknown) date) 21 unknown) (unknown) (no (unknown) (unknown) Respiratory Rate (units (unknown) date) 22 15 unknown) (unknown) (no (unknown) (unknown) Respiratory Rate (units (unknown) date) 22 17 unknown) (unknown) (no (unknown) (unknown) Respiratory Rate (units (unknown) date) 23 18 unknown) (unknown) (no (unknown) (unknown) Respiratory Rate (units (unknown) date) 25 H 20 unknown) (unknown) (no (unknown) (unknown) Respiratory Rate (units (unknown) date) 27 H 28 H unknown) (unknown) (no (unknown) (unknown) Respiratory Rate (units (unknown) date) 28 H 38 H unknown) (unknown) (no (unknown) (unknown) Respiratory Rate (units (unknown) date) 28 H unknown) (unknown) (no (unknown) (unknown) Respiratory Rate (units (unknown) date) 29 H unknown) (unknown) (no (unknown) (unknown) Respiratory Rate (units (unknown) date) 33 H unknown) (unknown) (no (unknown) (unknown) Respiratory Rate (units (unknown) date) 41 H 19 unknown) (unknown) (no (unknown) (unknown) Respiratory Rate (units (unknown) date) 41 H 28 H 27 H unknown) (unknown) (no (unknown) (unknown) Respiratory Rate (units (unknown) date) 44 H 27 H unknown) (unknown) (no (unknown) (unknown) SARS-CoV-2 (PCR) (units (unknown) date) Negative unknown) (unknown) (no (unknown) (unknown) SARS-CoV-2 (PCR) (units (unknown) date) unknown) (unknown) (no (unknown) (unknown) Signed (units (unkno wn) date) By:<Electronically unknown) signed by Marcell Mobley> (unknown) (no (unknown) (unknown) Smoking Status: (units (unknown) date) Former smoker unknown) (unknown) (no (unknown) (unknown) Social History (units (unknown) date) (Reviewed 05/27/22 unknown) @ 19:26 by Dalton Graff DO) (unknown) (no (unknown) (unknown) Sodium 132 L (units (u nknown) date) unknown) (unknown) (no (unknown) (unknown) Sodium 136 L (units (u nknown) date) unknown) (unknown) (no (unknown) (unknown) Sodium Chloride (units (unknown) date) 1,000 mls @ 250 unknown) mls/hr 05/27/22 15:00 05/27/22 18:49 (unknown) (no (unknown) (unknown) Sodium (units (unkno wn) date) unknown) (unknown) (no (unknown) (unknown) TITRATE SRIDEVI 12 (units (unknown) date) mls/hr unknown) (unknown) (no (unknown) (unknown) TSH 2.80 (units (unkno wn) date) unknown) (unknown) (no (unknown) (unknown) TSH (units (unkno wn) date) unknown) (unknown) (no (unknown) (unknown) Teleintensivist (units (unknown) date) Consult Note unknown) (unknown) (no (unknown) (unknown) Temperature 97.5 F (units (unknown) date) L unknown) (unknown) (no (unknown) (unknown) Temperature (units (un known) date) unknown) (unknown) (no (unknown) (unknown) Time Spent With (units (unknown) date) Patient unknown) (unknown) (no (unknown) (unknown) Titration (units (unkn own) date) unknown) (unknown) (no (unknown) (unknown) Total Bilirubin (units (unknown) date) 2.2 H unknown) (unknown) (no (unknown) (unknown) Total Bilirubin (units (unknown) date) 2.7 H unknown) (unknown) (no (unknown) (unknown) Total Bilirubin (units (unknown) date) unknown) (unknown) (no (unknown) (unknown) Total Creatine (units (unknown) date) Kinase 57 unknown) (unknown) (no (unknown) (unknown) Total Creatine (units (unknown) date) Kinase unknown) (unknown) (no (unknown) (unknown) Total Protein 6.9 (units (unknown) date) unknown) (unknown) (no (unknown) (unknown) Total Protein 7.8 (units (unknown) date) unknown) (unknown) (no (unknown) (unknown) Total Protein (units ( unknown) date) unknown) (unknown) (no (unknown) (unknown) Trade Name Freq (units (unknown) date) PRN Reason Stop unknown) Dose Admin (unknown) (no (unknown) (unknown) Troponin I < 0.012 (units (unknown) date) unknown) (unknown) (no (unknown) (unknown) Troponin I (units (unk nown) date) unknown) (unknown) (no (unknown) (unknown) U Benzodiazepines (units (unknown) date) Scrn Negative unknown) (unknown) (no (unknown) (unknown) U Benzodiazepines (units (unknown) date) Scrn unknown) (unknown) (no (unknown) (unknown) U Marijuana (THC) (units (unknown) date) Screen Positive H unknown) (unknown) (no (unknown) (unknown) U Marijuana (THC) (units (unknown) date) Screen unknown) (unknown) (no (unknown) (unknown) U Methamphetamines (units (unknown) date) Scrn Negative unknown) (unknown) (no (unknown) (unknown) U Methamphetamines (units (unknown) date) Scrn unknown) (unknown) (no (unknown) (unknown) U Opiates 300ng/mL (units (unknown) date) cut Negative unknown) (unknown) (no (unknown) (unknown) U Opiates 300ng/mL (units (unknown) date) cut unknown) (unknown) (no (unknown) (unknown) U Tricyclic (units (un known) date) Antidepress unknown) Negative (unknown) (no (unknown) (unknown) U Tricyclic (units (un known) date) Antidepress unknown) (unknown) (no (unknown) (unknown) UA +ve for ketones (units (unknown) date) unknown) (unknown) (no (unknown) (unknown) Ur Amphetamines (units (unknown) date) Screen Negative unknown) (unknown) (no (unknown) (unknown) Ur Amphetamines (units (unknown) date) Screen unknown) (unknown) (no (unknown) (unknown) Ur Barbiturates (units (unknown) date) Screen Negative unknown) (unknown) (no (unknown) (unknown) Ur Barbiturates (units (unknown) date) Screen unknown) (unknown) (no (unknown) (unknown) Ur Culture (units (unk nown) date) Indicated? Cult not unknown) indicated (unknown) (no (unknown) (unknown) Ur Culture (units (unk nown) date) Indicated? unknown) (unknown) (no (unknown) (unknown) Ur Leukocyte (units (u nknown) date) Esterase Negative unknown) (unknown) (no (unknown) (unknown) Ur Leukocyte (units (u nknown) date) Esterase unknown) (unknown) (no (unknown) (unknown) Ur MDMA Scrn (units (u nknown) date) (Ecstasy) Negative unknown) (unknown) (no (unknown) (unknown) Ur MDMA Scrn (units (u nknown) date) (Ecstasy) unknown) (unknown) (no (unknown) (unknown) Ur Oxycodone (units (u nknown) date) Screen Negative unknown) (unknown) (no (unknown) (unknown) Ur Oxycodone (units (u nknown) date) Screen unknown) (unknown) (no (unknown) (unknown) Ur Phencyclidine (units (unknown) date) Scrn Negative unknown) (unknown) (no (unknown) (unknown) Ur Phencyclidine (units (unknown) date) Scrn unknown) (unknown) (no (unknown) (unknown) Ur Specific (units (un known) date) [place] 1.010 unknown) (unknown) (no (unknown) (unknown) Ur Specific (units (un known) date) [place] unknown) (unknown) (no (unknown) (unknown) Urine Appearance (units (unknown) date) Clear unknown) (unknown) (no (unknown) (unknown) Urine Appearance (units (unknown) date) unknown) (unknown) (no (unknown) (unknown) Urine Bacteria (units (unknown) date) None seen unknown) (unknown) (no (unknown) (unknown) Urine Bacteria (units (unknown) date) unknown) (unknown) (no (unknown) (unknown) Urine Bilirubin (units (unknown) date) Negative unknown) (unknown) (no (unknown) (unknown) Urine Bilirubin (units (unknown) date) unknown) (unknown) (no (unknown) (unknown) Urine Cocaine (units ( unknown) date) Screen Negative unknown) (unknown) (no (unknown) (unknown) Urine Cocaine (units ( unknown) date) Screen unknown) (unknown) (no (unknown) (unknown) Urine Color Yellow (units (unknown) date) unknown) (unknown) (no (unknown) (unknown) Urine Color (units (un known) date) unknown) (unknown) (no (unknown) (unknown) Urine Glucose (UA) (units (unknown) date) 3+ H unknown) (unknown) (no (unknown) (unknown) Urine Glucose (UA) (units (unknown) date) unknown) (unknown) (no (unknown) (unknown) Urine Ketones 3+ H (units (unknown) date) unknown) (unknown) (no (unknown) (unknown) Urine Ketones (units ( unknown) date) unknown) (unknown) (no (unknown) (unknown) Urine Methadone (units (unknown) date) Screen Negative unknown) (unknown) (no (unknown) (unknown) Urine Methadone (units (unknown) date) Screen unknown) (unknown) (no (unknown) (unknown) Urine Nitrate (units ( unknown) date) Negative unknown) (unknown) (no (unknown) (unknown) Urine Nitrate (units ( unknown) date) unknown) (unknown) (no (unknown) (unknown) Urine Occult Blood (units (unknown) date) Negative unknown) (unknown) (no (unknown) (unknown) Urine Occult Blood (units (unknown) date) unknown) (unknown) (no (unknown) (unknown) Urine Protein (units ( unknown) date) Negative unknown) (unknown) (no (unknown) (unknown) Urine Protein (units ( unknown) date) unknown) (unknown) (no (unknown) (unknown) Urine RBC None (units (unknown) date) seen unknown) (unknown) (no (unknown) (unknown) Urine RBC (units (unkn own) date) unknown) (unknown) (no (unknown) (unknown) Urine Urobilinogen (units (unknown) date) 0.2 unknown) (unknown) (no (unknown) (unknown) Urine Urobilinogen (units (unknown) date) unknown) (unknown) (no (unknown) (unknown) Urine WBC None (units (unknown) date) seen unknown) (unknown) (no (unknown) (unknown) Urine WBC (units (unkn own) date) unknown) (unknown) (no (unknown) (unknown) Urine pH 6.0 (units (u nknown) date) unknown) (unknown) (no (unknown) (unknown) Urine pH (units (unkno wn) date) unknown) (unknown) (no (unknown) (unknown) VBG Base Excess (units (unknown) date) -11.0 L unknown) (unknown) (no (unknown) (unknown) VBG Base Excess (units (unknown) date) unknown) (unknown) (no (unknown) (unknown) VBG HCO3 15 L (units ( unknown) date) unknown) (unknown) (no (unknown) (unknown) VBG HCO3 (units (unkno wn) date) unknown) (unknown) (no (unknown) (unknown) VBG O2 Saturation (units (unknown) date) 46 L unknown) (unknown) (no (unknown) (unknown) VBG O2 Saturation (units (unknown) date) unknown) (unknown) (no (unknown) (unknown) VBG Total CO2 16 L (units (unknown) date) unknown) (unknown) (no (unknown) (unknown) VBG Total CO2 (units ( unknown) date) unknown) (unknown) (no (unknown) (unknown) VBG pCO2 26.7 L (units (unknown) date) unknown) (unknown) (no (unknown) (unknown) VBG pCO2 (units (unkno wn) date) unknown) (unknown) (no (unknown) (unknown) VBG pH 7.35 (units (un known) date) unknown) (unknown) (no (unknown) (unknown) VBG pH (units (unkno wn) date) unknown) (unknown) (no (unknown) (unknown) VBG pO2 26 L (units (u nknown) date) unknown) (unknown) (no (unknown) (unknown) VBG pO2 (units (unkno wn) date) unknown) (unknown) (no (unknown) (unknown) Visit Medications (units (unknown) date) (administered) unknown) (unknown) (no (unknown) (unknown) Vital Signs (units (un known) date) unknown) (unknown) (no (unknown) (unknown) WBC 11.2 H (units (unk nown) date) unknown) (unknown) (no (unknown) (unknown) WBC (units (unkno wn) date) unknown) (unknown) (no (unknown) (unknown) [Embedded Image (units (unknown) date) Not Available] unknown) (unknown) (no (unknown) (unknown) [History Confirmed (units (unknown) date) 05/27/22] unknown) (unknown) (no (unknown) (unknown) admitted to ICU (units (unknown) date) for unknown) (unknown) (no (unknown) (unknown) alcohol intake: (units (unknown) date) current unknown) (unknown) (no (unknown) (unknown) atorvastatin 40 mg (units (unknown) date) tablet 40 mg PO unknown) BEDTIME 05/27/22 [History Confirmed 05/27/22] (unknown) (no (unknown) (unknown) cased discussed (units (unknown) date) with bedside nurse unknown) and Dr. Coles (unknown) (no (unknown) (unknown) chart/labs/imaging (units (unknown) date) reviewed unknown) (unknown) (no (unknown) (unknown) communication: (units (unknown) date) Camera activated unknown) (unknown) (no (unknown) (unknown) cxr -ve (units (unkno wn) date) unknown) (unknown) (no (unknown) (unknown) duloxetine 30 mg (units (unknown) date) capsule,delayed unknown) release sprinkle 30 mg PO DAILY 05/27/22 (unknown) (no (unknown) (unknown) glucose 700 (units (un known) date) unknown) (unknown) (no (unknown) (unknown) household members: (units (unknown) date) spouse unknown) (unknown) (no (unknown) (unknown) insulin lispro 100 (units (unknown) date) unit/mL unknown) subcutaneous solution (Humalog U-100 Insulin) See Rx (unknown) (no (unknown) (unknown) mirtazapine 45 mg (units (unknown) date) tablet 45 mg PO unknown) BEDTIME 05/27/22 [History Confirmed 05/27/22] (unknown) (no (unknown) (unknown) pH 7.27/34/99 (units ( unknown) date) unknown) (unknown) (no (unknown) (unknown) patient seen in (units (unknown) date) room unknown) (unknown) (no (unknown) (unknown) sepsis without (units (unknown) date) shock 2/2 tooth unknown) infection vs other (unknown) (no (unknown) (unknown) substance use (units ( unknown) date) type: does not use unknown) (unknown) (no (unknown) (unknown) suggest (units (unkno wn) date) unknown) (unknown) (no (unknown) (unknown) today; this time (units (unknown) date) is exclusive of unknown) procedural time. (unknown) (no (unknown) (unknown) total cm time 45 (units (unknown) date) mins unknown) Result panel 301 (unknown) (no date) (unknown) (unknown) Not Detected (units ( unknown) unknown) Result panel 302 (unknown) (no date) (unknown) (unknown) > 60 ml/min (unkn own) (unknown) (no date) (unknown) (unknown) > 60 ml/min (unkn own) (unknown) (no date) (unknown) (unknown) 0.91 mg/dl (unkn own) (unknown) (no date) (unknown) (unknown) 106 mmol/l (unkn own) (unknown) (no date) (unknown) (unknown) 136 mmol/l (unkn own) (unknown) (no date) (unknown) (unknown) 136 mmol/l (unkn own) (unknown) (no date) (unknown) (unknown) 155 mg/dl (unkn own) (unknown) (no date) (unknown) (unknown) 155 mg/dl (unkn own) (unknown) (no date) (unknown) (unknown) 22 mg/dl (unkn own) (unknown) (no date) (unknown) (unknown) 22 mmol/l (unkn own) (unknown) (no date) (unknown) (unknown) 24.2 (units unknown) (unknown) (unknown) (no date) (unknown) (unknown) 3.9 mmol/l (unkn own) (unknown) (no date) (unknown) (unknown) 8.5 mg/dl (unkn own) Result panel 303 (unknown) (no (unknown) (unknown) (no value) (units (unk nown) date) unknown) (unknown) (no (unknown) (unknown) 05/27/22 2253 (units ( unknown) date) unknown) (unknown) (no (unknown) (unknown) 6599 (units (unkno wn) date) unknown) (unknown) (no (unknown) (unknown) AG closed and (units ( unknown) date) Co2 22. unknown) Transitioned to lantus 20 units SQ QHS and medium (unknown) (no (unknown) (unknown) Age/Sex: 56 / M (units (unknown) date) unknown) (unknown) (no (unknown) (unknown) : 1965 (units (unknown) date) Acct:[id number] unknown) (unknown) (no (unknown) (unknown) Date of (units (unkno wn) date) Service: unknown) 05/27/22 (unknown) (no (unknown) (unknown) Event Note (units (unk nown) date) (Rapid Response, unknown) Code, or fall): (unknown) (no (unknown) (unknown) Event Note (units (unk nown) date) unknown) (unknown) (no (unknown) (unknown) [facility] (units (unknown) date) [address] [place] [address] unknown) [place] [address] (unknown) (no (unknown) (unknown) Patient: (units (unkno wn) date) Ed Meredith unknown) MR#: [id number] (unknown) (no (unknown) (unknown) Provider: (units (unkn own) date) Chris Johnson MD unknown) (unknown) (no (unknown) (unknown) Signed (units (unkno wn) date) By:<Electronical unknown) ly signed by Chris Johnson MD> (unknown) (no (unknown) (unknown) intensity (units (unkn own) date) insulin sliding unknown) scale. D/w bedside RN. Result panel 304 (unknown) (no date) (unknown) (unknown) 0 /ul (unkn own) (unknown) (no date) (unknown) (unknown) 0 /ul (unkn own) (unknown) (no date) (unknown) (unknown) 0.2 % (unkn own) (unknown) (no date) (unknown) (unknown) 0.4 % (unkn own) (unknown) (no date) (unknown) (unknown) 1000 /ul (unkn own) (unknown) (no date) (unknown) (unknown) 11.4 x10 3/ul (unkn own) (unknown) (no date) (unknown) (unknown) 12.5 % (unkn own) (unknown) (no date) (unknown) (unknown) 12.8 g/dl (unkn own) (unknown) (no date) (unknown) (unknown) 13.7 % (unkn own) (unknown) (no date) (unknown) (unknown) 1400 /ul (unkn own) (unknown) (no date) (unknown) (unknown) 233 x10 3/ul (unkn own) (unknown) (no date) (unknown) (unknown) 29.6 pg (unkn own) (unknown) (no date) (unknown) (unknown) 34.4 % (unkn own) (unknown) (no date) (unknown) (unknown) 37.2 % (unkn own) (unknown) (no date) (unknown) (unknown) 4.31 x10 6/ul (unkn own) (unknown) (no date) (unknown) (unknown) 77.9 % (unkn own) (unknown) (no date) (unknown) (unknown) 86.3 fl (unkn own) (unknown) (no date) (unknown) (unknown) 8900 /ul (unkn own) (unknown) (no date) (unknown) (unknown) 9.0 % (unkn own) Result panel 305 (unknown) (no date) (unknown) (unknown) > 60 ml/min (unkn own) (unknown) (no date) (unknown) (unknown) > 60 ml/min (unkn own) (unknown) (no date) (unknown) (unknown) 0.95 mg/dl (unkn own) (unknown) (no date) (unknown) (unknown) 105 mmol/l (unkn own) (unknown) (no date) (unknown) (unknown) 134 mmol/l (unkn own) (unknown) (no date) (unknown) (unknown) 206 mg/dl (unkn own) (unknown) (no date) (unknown) (unknown) 206 mg/dl (unkn own) (unknown) (no date) (unknown) (unknown) 21 mmol/l (unkn own) (unknown) (no date) (unknown) (unknown) 22 mg/dl (unkn own) (unknown) (no date) (unknown) (unknown) 23.2 (units unknown) (unknown) (unknown) (no date) (unknown) (unknown) 3.9 mmol/l (unkn own) (unknown) (no date) (unknown) (unknown) 8.1 mg/dl (unkn own) Result panel 306 (unknown) (no date) (unknown) (unknown) No growth. (units (un known) unknown) Result panel 307 (unknown) (no (unknown) (unknown) (no value) (units (unk nown) date) unknown) (unknown) (no (unknown) (unknown) # acute DKA (units (un known) date) unknown) (unknown) (no (unknown) (unknown) # toothache (units (un known) date) unknown) (unknown) (no (unknown) (unknown) # type 1 diabetes (units (unknown) date) unknown) (unknown) (no (unknown) (unknown) (past 8 hours): (units (unknown) date) unknown) (unknown) (no (unknown) (unknown) -A1c 9.5% (units (unkn own) date) unknown) (unknown) (no (unknown) (unknown) -blood sugar 731 on (units (unknown) date) admission, anion unknown) gap 26, bicarb 12, ketones positive at 6.46 (unknown) (no (unknown) (unknown) -continue Rocephin (units (unknown) date) and Flagyl unknown) (unknown) (no (unknown) (unknown) -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 (units (unk nown) date) consulted unknown) (unknown) (no (unknown) (unknown) -on insulin (units (un known) date) protocol unknown) (unknown) (no (unknown) (unknown) -tele ICU (units (unkn own) date) consulted unknown) (unknown) (no (unknown) (unknown) -transition to (units (unknown) date) subcutaneous unknown) insulin once gap closes (unknown) (no (unknown) (unknown) -unclear if he has (units (unknown) date) dental infection unknown) which triggered the DKA, as he is noticed a (unknown) (no (unknown) (unknown) 01:03 05/28/22 (units (unknown) date) unknown) (unknown) (no (unknown) (unknown) 02:00 05/28/22 (units (unknown) date) unknown) (unknown) (no (unknown) (unknown) 02:00 (units (unkno wn) date) unknown) (unknown) (no (unknown) (unknown) 02:02 05/28/22 (units (unknown) date) unknown) (unknown) (no (unknown) (unknown) 02:05 (units (unkno wn) date) unknown) (unknown) (no (unknown) (unknown) 05/27/22 05/27/22 (units (unknown) date) 05/27/22 unknown) (unknown) (no (unknown) (unknown) 05/27/22 05/27/22 (units (unknown) date) 05/28/22 unknown) (unknown) (no (unknown) (unknown) 05/28/22 04:20 (units (unknown) date) unknown) (unknown) (no (unknown) (unknown) 05/28/22 (units (unkno wn) date) unknown) (unknown) (no (unknown) (unknown) 03:00 05/28/22 (units (unknown) date) unknown) (unknown) (no (unknown) (unknown) 04:00 05/28/22 (units (unknown) date) unknown) (unknown) (no (unknown) (unknown) 04:00 (units (unkno wn) date) unknown) (unknown) (no (unknown) (unknown) 04:19 05/28/22 (units (unknown) date) unknown) (unknown) (no (unknown) (unknown) 04:20 (units (unkno wn) date) unknown) (unknown) (no (unknown) (unknown) 06:00 05/28/22 (units (unknown) date) unknown) (unknown) (no (unknown) (unknown) 06:00 (units (unkno wn) date) unknown) (unknown) (no (unknown) (unknown) 06:18 05/28/22 (units (unknown) date) unknown) (unknown) (no (unknown) (unknown) 06:30 05/28/22 (units (unknown) date) unknown) (unknown) (no (unknown) (unknown) 07:00 (units (unkno wn) date) unknown) (unknown) (no (unknown) (unknown) 07:30 05/28/22 (units (unknown) date) unknown) (unknown) (no (unknown) (unknown) 08:00 05/28/22 (units (unknown) date) unknown) (unknown) (no (unknown) (unknown) 08:00 (units (unkno wn) date) unknown) (unknown) (no (unknown) (unknown) 12:55 13:50 13:50 (units (unknown) date) unknown) (unknown) (no (unknown) (unknown) 13:50 13:50 13:50 (units (unknown) date) unknown) (unknown) (no (unknown) (unknown) 14:15 14:40 14:40 (units (unknown) date) unknown) (unknown) (no (unknown) (unknown) 15:12 16:28 16:50 (units (unknown) date) unknown) (unknown) (no (unknown) (unknown) 20:00 22:05 04:20 (units (unknown) date) unknown) (unknown) (no (unknown) (unknown) 6599 (units (unkno wn) date) unknown) (unknown) (no (unknown) (unknown) ABD: soft, (units (unk nown) date) nontender, unknown) nondistended, no organomegaly (unknown) (no (unknown) (unknown) ABG Base Excess (units (unknown) date) -15.0 L unknown) (unknown) (no (unknown) (unknown) ABG Base Excess (units (unknown) date) unknown) (unknown) (no (unknown) (unknown) ABG HCO3 12 L (units ( unknown) date) unknown) (unknown) (no (unknown) (unknown) ABG HCO3 (units (unkno wn) date) unknown) (unknown) (no (unknown) (unknown) ABG O2 Saturation (units (unknown) date) 97 unknown) (unknown) (no (unknown) (unknown) ABG O2 Saturation (units (unknown) date) unknown) (unknown) (no (unknown) (unknown) ABG Total CO2 12 L (units (unknown) date) unknown) (unknown) (no (unknown) (unknown) ABG Total CO2 (units ( unknown) date) unknown) (unknown) (no (unknown) (unknown) ABG pCO2 24.9 L* (units (unknown) date) unknown) (unknown) (no (unknown) (unknown) ABG pCO2 (units (unkno wn) date) unknown) (unknown) (no (unknown) (unknown) ABG pH 7.27 L* (units (unknown) date) unknown) (unknown) (no (unknown) (unknown) ABG pH (units (unkno wn) date) unknown) (unknown) (no (unknown) (unknown) ABG pO2 99 (units (unk nown) date) unknown) (unknown) (no (unknown) (unknown) ABG pO2 (units (unkno wn) date) unknown) (unknown) (no (unknown) (unknown) ALT 40 (units (unkno wn) date) unknown) (unknown) (no (unknown) (unknown) ALT 44 (units (unkno wn) date) unknown) (unknown) (no (unknown) (unknown) ALT (units (unkno wn) date) unknown) (unknown) (no (unknown) (unknown) AST 27 (units (unkno wn) date) unknown) (unknown) (no (unknown) (unknown) AST 30 (units (unkno wn) date) unknown) (unknown) (no (unknown) (unknown) AST (units (unkno wn) date) unknown) (unknown) (no (unknown) (unknown) Age/Sex: 56 / M (units (unknown) date) unknown) (unknown) (no (unknown) (unknown) Albumin 4.1 (units (un known) date) unknown) (unknown) (no (unknown) (unknown) Albumin 4.7 (units (un known) date) unknown) (unknown) (no (unknown) (unknown) Albumin (units (unkno wn) date) unknown) (unknown) (no (unknown) (unknown) Albumin/Globulin (units (unknown) date) Ratio 1.5 unknown) (unknown) (no (unknown) (unknown) Albumin/Globulin (units (unknown) date) Ratio unknown) (unknown) (no (unknown) (unknown) Alkaline (units (unkno wn) date) Phosphatase 104 unknown) (unknown) (no (unknown) (unknown) Alkaline (units (unkno wn) date) Phosphatase 79 unknown) (unknown) (no (unknown) (unknown) Alkaline (units (unkno wn) date) Phosphatase unknown) (unknown) (no (unknown) (unknown) Amorphous Sediment (units (unknown) date) 1 unknown) (unknown) (no (unknown) (unknown) Amorphous Sediment (units (unknown) date) unknown) (unknown) (no (unknown) (unknown) Assessment + Plan (units (unknown) date) narrative: unknown) (unknown) (no (unknown) (unknown) Assessment + Plan (units (unknown) date) unknown) (unknown) (no (unknown) (unknown) BUN 22 H (units (unkno wn) date) unknown) (unknown) (no (unknown) (unknown) BUN 23 H (units (unkno wn) date) unknown) (unknown) (no (unknown) (unknown) BUN 24 H (units (unkno wn) date) unknown) (unknown) (no (unknown) (unknown) BUN (units (unkno wn) date) unknown) (unknown) (no (unknown) (unknown) BUN/Creatinine (units (unknown) date) Ratio 20.0 unknown) (unknown) (no (unknown) (unknown) BUN/Creatinine (units (unknown) date) Ratio 21.4 unknown) (unknown) (no (unknown) (unknown) BUN/Creatinine (units (unknown) date) Ratio 23.2 H unknown) (unknown) (no (unknown) (unknown) BUN/Creatinine (units (unknown) date) Ratio 24.2 H unknown) (unknown) (no (unknown) (unknown) BUN/Creatinine (units (unknown) date) Ratio unknown) (unknown) (no (unknown) (unknown) Baso # (Auto) 0 (units (unknown) date) unknown) (unknown) (no (unknown) (unknown) Baso # (Auto) 100 (units (unknown) date) unknown) (unknown) (no (unknown) (unknown) Baso # (Auto) (units ( unknown) date) unknown) (unknown) (no (unknown) (unknown) Baso % (Auto) 0.4 (units (unknown) date) unknown) (unknown) (no (unknown) (unknown) Baso % (Auto) 0.5 (units (unknown) date) unknown) (unknown) (no (unknown) (unknown) Baso % (Auto) (units ( unknown) date) unknown) (unknown) (no (unknown) (unknown) Blood Pressure (units (unknown) date) 114/63 unknown) (unknown) (no (unknown) (unknown) Blood Pressure (units (unknown) date) 120/60 unknown) (unknown) (no (unknown) (unknown) Blood Pressure (units (unknown) date) 125/61 unknown) (unknown) (no (unknown) (unknown) Blood Pressure (units (unknown) date) 96/51 L unknown) (unknown) (no (unknown) (unknown) Blood Pressure (units (unknown) date) 97/54 L unknown) (unknown) (no (unknown) (unknown) Blood Pressure (units (unknown) date) unknown) (unknown) (no (unknown) (unknown) CK-MB (CK-2) Rel (units (unknown) date) Index TNP unknown) (unknown) (no (unknown) (unknown) CK-MB (CK-2) Rel (units (unknown) date) Index unknown) (unknown) (no (unknown) (unknown) CK-MB (CK-2) TNP (units (unknown) date) unknown) (unknown) (no (unknown) (unknown) CK-MB (CK-2) (units (u nknown) date) unknown) (unknown) (no (unknown) (unknown) COVID negative. (units (unknown) date) unknown) (unknown) (no (unknown) (unknown) CV: regular rate (units (unknown) date) and rhythm, no unknown) murmurs (unknown) (no (unknown) (unknown) Calcium 8.1 L (units ( unknown) date) unknown) (unknown) (no (unknown) (unknown) Calcium 8.5 (units (un known) date) unknown) (unknown) (no (unknown) (unknown) Calcium 8.8 (units (un known) date) unknown) (unknown) (no (unknown) (unknown) Calcium 9.7 (units (un known) date) unknown) (unknown) (no (unknown) (unknown) Calcium (units (unkno wn) date) unknown) (unknown) (no (unknown) (unknown) Carbon Dioxide 12 (units (unknown) date) L unknown) (unknown) (no (unknown) (unknown) Carbon Dioxide 21 (units (unknown) date) L unknown) (unknown) (no (unknown) (unknown) Carbon Dioxide 22 (units (unknown) date) unknown) (unknown) (no (unknown) (unknown) Carbon Dioxide 8 (units (unknown) date) L* unknown) (unknown) (no (unknown) (unknown) Carbon Dioxide (units (unknown) date) unknown) (unknown) (no (unknown) (unknown) Chloride 103 (units (u nknown) date) unknown) (unknown) (no (unknown) (unknown) Chloride 105 (units (u nknown) date) unknown) (unknown) (no (unknown) (unknown) Chloride 106 (units (u nknown) date) unknown) (unknown) (no (unknown) (unknown) Chloride 94 L (units ( unknown) date) unknown) (unknown) (no (unknown) (unknown) Chloride (units (unkno wn) date) unknown) (unknown) (no (unknown) (unknown) Code status is (units (unknown) date) full code. unknown) (unknown) (no (unknown) (unknown) Creatinine 0.91 (units (unknown) date) unknown) (unknown) (no (unknown) (unknown) Creatinine 0.95 (units (unknown) date) unknown) (unknown) (no (unknown) (unknown) Creatinine 1.12 (units (unknown) date) unknown) (unknown) (no (unknown) (unknown) Creatinine 1.15 (units (unknown) date) unknown) (unknown) (no (unknown) (unknown) Creatinine (units (unk nown) date) unknown) (unknown) (no (unknown) (unknown) Critical Care (units ( unknown) date) time: unknown) (unknown) (no (unknown) (unknown) : 1965 (units (unknown) date) Acct:[id number] unknown) (unknown) (no (unknown) (unknown) DVT prophylaxis (units (unknown) date) with SCDs. unknown) (unknown) (no (unknown) (unknown) Date of Service: (units (unknown) date) 05/27/22 unknown) (unknown) (no (unknown) (unknown) Deep Vein (units (unkn own) date) Thrombosis/Pulmonar unknown) y Embolism Present on Admission: No (unknown) (no (unknown) (unknown) EXT: warm and well (units (unknown) date) perfused with no unknown) edema (unknown) (no (unknown) (unknown) Eos # (Auto) 0 (units (unknown) date) unknown) (unknown) (no (unknown) (unknown) Eos # (Auto) (units (u nknown) date) unknown) (unknown) (no (unknown) (unknown) Eos % (Auto) 0.1 L (units (unknown) date) unknown) (unknown) (no (unknown) (unknown) Eos % (Auto) 0.2 L (units (unknown) date) unknown) (unknown) (no (unknown) (unknown) Eos % (Auto) (units (u nknown) date) unknown) (unknown) (no (unknown) (unknown) Estimated GFR > 60 (units (unknown) date) unknown) (unknown) (no (unknown) (unknown) Estimated GFR (units ( unknown) date) unknown) (unknown) (no (unknown) (unknown) Ethyl Alcohol < 10 (units (unknown) date) unknown) (unknown) (no (unknown) (unknown) Ethyl Alcohol (units ( unknown) date) unknown) (unknown) (no (unknown) (unknown) Exam Narrative: (units (unknown) date) unknown) (unknown) (no (unknown) (unknown) Exam (units (unkno wn) date) unknown) (unknown) (no (unknown) (unknown) FiO2 21 (units (unkno wn) date) unknown) (unknown) (no (unknown) (unknown) FiO2 (units (unkno wn) date) unknown) (unknown) (no (unknown) (unknown) GEN: no acute (units ( unknown) date) distress unknown) (unknown) (no (unknown) (unknown) Globulin 2.8 (units (u nknown) date) unknown) (unknown) (no (unknown) (unknown) Globulin 3.1 (units (u nknown) date) unknown) (unknown) (no (unknown) (unknown) Globulin (units (unkno wn) date) unknown) (unknown) (no (unknown) (unknown) Glucose 155 H D (units (unknown) date) unknown) (unknown) (no (unknown) (unknown) Glucose 206 H (units ( unknown) date) unknown) (unknown) (no (unknown) (unknown) Glucose 532 H* (units (unknown) date) unknown) (unknown) (no (unknown) (unknown) Glucose 731 H* (units (unknown) date) unknown) (unknown) (no (unknown) (unknown) Glucose (units (unkno wn) date) unknown) (unknown) (no (unknown) (unknown) HEENT: moist (units (u nknown) date) mucous membranes, unknown) PERRL (unknown) (no (unknown) (unknown) Hct 37.2 L (units (unk nown) date) unknown) (unknown) (no (unknown) (unknown) Hct 44.7 (units (unkno wn) date) unknown) (unknown) (no (unknown) (unknown) Hct (units (unkno wn) date) unknown) (unknown) (no (unknown) (unknown) Hemoglobin A1c 9.5 (units (unknown) date) H unknown) (unknown) (no (unknown) (unknown) Hemoglobin A1c (units (unknown) date) unknown) (unknown) (no (unknown) (unknown) Hgb 12.8 L (units (unk nown) date) unknown) (unknown) (no (unknown) (unknown) Hgb 14.9 (units (unkno wn) date) unknown) (unknown) (no (unknown) (unknown) Hgb (units (unkno wn) date) unknown) (unknown) (no (unknown) (unknown) I have reviewed (units (unknown) date) home meds and used unknown) all available resources to reconcile the home (unknown) (no (unknown) (unknown) I spent a total of (units (unknown) date) 35 minutes of unknown) critical care time on this patient's care (unknown) (no (unknown) (unknown) I spent a total of (units (unknown) date) [] minutes of unknown) critical care time on this patient's care (unknown) (no (unknown) (unknown) 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 unknown) (unknown) (no (unknown) (unknown) [facility] (units (unknown) date) [address] unknown) [place] [address] (unknown) (no (unknown) (unknown) Ketones 6.46 H (units (unknown) date) unknown) (unknown) (no (unknown) (unknown) Ketones (units (unkno wn) date) unknown) (unknown) (no (unknown) (unknown) Laboratory Results (units (unknown) date) - last 24 hr unknown) (unknown) (no (unknown) (unknown) Labs (units (unkno wn) date) unknown) (unknown) (no (unknown) (unknown) Labs: (units (unkno wn) date) unknown) (unknown) (no (unknown) (unknown) Lipase 62 (units (unkn own) date) unknown) (unknown) (no (unknown) (unknown) Lipase (units (unkno wn) date) unknown) (unknown) (no (unknown) (unknown) Lymph # (Auto) (units (unknown) date) 1400 unknown) (unknown) (no (unknown) (unknown) Lymph # (Auto) 700 (units (unknown) date) L unknown) (unknown) (no (unknown) (unknown) Lymph # (Auto) (units (unknown) date) unknown) (unknown) (no (unknown) (unknown) Lymph % (Auto) (units (unknown) date) 12.5 L unknown) (unknown) (no (unknown) (unknown) Lymph % (Auto) 6.4 (units (unknown) date) L unknown) (unknown) (no (unknown) (unknown) Lymph % (Auto) (units (unknown) date) unknown) (unknown) (no (unknown) (unknown) MCH 29.6 (units (unkno wn) date) unknown) (unknown) (no (unknown) (unknown) MCH 29.7 (units (unkno wn) date) unknown) (unknown) (no (unknown) (unknown) MCH (units (unkno wn) date) unknown) (unknown) (no (unknown) (unknown) MCHC 33.3 (units (unkn own) date) unknown) (unknown) (no (unknown) (unknown) MCHC 34.4 (units (unkn own) date) unknown) (unknown) (no (unknown) (unknown) MCHC (units (unkno wn) date) unknown) (unknown) (no (unknown) (unknown) MCV 86.3 (units (unkno wn) date) unknown) (unknown) (no (unknown) (unknown) MCV 89.1 (units (unkno wn) date) unknown) (unknown) (no (unknown) (unknown) MCV (units (unkno wn) date) unknown) (unknown) (no (unknown) (unknown) Magnesium 1.8 (units ( unknown) date) unknown) (unknown) (no (unknown) (unknown) Magnesium (units (unkn own) date) unknown) (unknown) (no (unknown) (unknown) Medical History (units (unknown) date) (Reviewed 05/27/22 unknown) @ 19:26 by Dalton Graff DO) (unknown) (no (unknown) (unknown) [place] # (Auto) 1000 (units (unknown) date) H unknown) (unknown) (no (unknown) (unknown) [place] # (Auto) 300 (units (unknown) date) unknown) (unknown) (no (unknown) (unknown) [place] # (Auto) (units ( unknown) date) unknown) (unknown) (no (unknown) (unknown) [place] % (Auto) 2.7 (units (unknown) date) L unknown) (unknown) (no (unknown) (unknown) [place] % (Auto) 9.0 (units (unknown) date) unknown) (unknown) (no (unknown) (unknown) [place] % (Auto) (units ( unknown) date) unknown) (unknown) (no (unknown) (unknown) NECK: trachea (units ( unknown) date) midline, no JVD unknown) (unknown) (no (unknown) (unknown) NEURO: awake, (units ( unknown) date) alert, oriented, no unknown) focal deficits (unknown) (no (unknown) (unknown) Narrative (units (unkn own) date) unknown) (unknown) (no (unknown) (unknown) Nasal Screen MRSA (units (unknown) date) (PCR) Not detected unknown) (unknown) (no (unknown) (unknown) Nasal Screen MRSA (units (unknown) date) (PCR) unknown) (unknown) (no (unknown) (unknown) Neut # (Auto) (units ( unknown) date) 85666 H unknown) (unknown) (no (unknown) (unknown) Neut # (Auto) 8900 (units (unknown) date) H unknown) (unknown) (no (unknown) (unknown) Neut # (Auto) (units ( unknown) date) unknown) (unknown) (no (unknown) (unknown) Neut % (Auto) 77.9 (units (unknown) date) H unknown) (unknown) (no (unknown) (unknown) Neut % (Auto) 90.3 (units (unknown) date) H unknown) (unknown) (no (unknown) (unknown) Neut % (Auto) (units ( unknown) date) unknown) (unknown) (no (unknown) (unknown) Objective (units (unkn own) date) unknown) (unknown) (no (unknown) (unknown) Oxygen Delivery (units (unknown) date) Method Room Air unknown) (unknown) (no (unknown) (unknown) PFSH (units (unkno wn) date) unknown) (unknown) (no (unknown) (unknown) PULM: clear (units (un known) date) bilaterally unknown) (unknown) (no (unknown) (unknown) Patient: (units (unkno wn) date) Ed Meredith MR#: unknown) [id number] (unknown) (no (unknown) (unknown) Phosphorus 3.6 (units (unknown) date) unknown) (unknown) (no (unknown) (unknown) Phosphorus (units (unk nown) date) unknown) (unknown) (no (unknown) (unknown) Plt Count 233 (units ( unknown) date) unknown) (unknown) (no (unknown) (unknown) Plt Count 243 (units ( unknown) date) unknown) (unknown) (no (unknown) (unknown) Plt Count (units (unkn own) date) unknown) (unknown) (no (unknown) (unknown) Potassium 3.9 (units ( unknown) date) unknown) (unknown) (no (unknown) (unknown) Potassium 4.4 (units ( unknown) date) unknown) (unknown) (no (unknown) (unknown) Potassium 5.0 (units ( unknown) date) unknown) (unknown) (no (unknown) (unknown) Potassium (units (unkn own) date) unknown) (unknown) (no (unknown) (unknown) Progress Note (units ( unknown) date) unknown) (unknown) (no (unknown) (unknown) Provider: (units (unkn own) date) Rajesh Coles unknown) D.O. (unknown) (no (unknown) (unknown) Proxy is (units ( unknown) date) Juliane. unknown) (unknown) (no (unknown) (unknown) Pulse Oximetry 100 (units (unknown) date) unknown) (unknown) (no (unknown) (unknown) Pulse Oximetry 97 (units (unknown) date) unknown) (unknown) (no (unknown) (unknown) Pulse Oximetry (units (unknown) date) unknown) (unknown) (no (unknown) (unknown) Pulse Rate 64 64 (units (unknown) date) 65 unknown) (unknown) (no (unknown) (unknown) Pulse Rate 65 65 (units (unknown) date) unknown) (unknown) (no (unknown) (unknown) Pulse Rate 66 57 L (units (unknown) date) unknown) (unknown) (no (unknown) (unknown) Pulse Rate 74 66 (units (unknown) date) unknown) (unknown) (no (unknown) (unknown) Pulse Rate 81 66 (units (unknown) date) unknown) (unknown) (no (unknown) (unknown) Quality (units (unkno wn) date) unknown) (unknown) (no (unknown) (unknown) RBC 4.31 L (units (unk nown) date) unknown) (unknown) (no (unknown) (unknown) RBC 5.02 (units (unkno wn) date) unknown) (unknown) (no (unknown) (unknown) RBC (units (unkno wn) date) unknown) (unknown) (no (unknown) (unknown) RDW 13.3 (units (unkno wn) date) unknown) (unknown) (no (unknown) (unknown) RDW 13.7 (units (unkno wn) date) unknown) (unknown) (no (unknown) (unknown) RDW (units (unkno wn) date) unknown) (unknown) (no (unknown) (unknown) Respiratory Rate (units (unknown) date) 15 16 unknown) (unknown) (no (unknown) (unknown) Respiratory Rate (units (unknown) date) 17 17 18 unknown) (unknown) (no (unknown) (unknown) Respiratory Rate (units (unknown) date) 18 16 unknown) (unknown) (no (unknown) (unknown) Respiratory Rate (units (unknown) date) 18 18 unknown) (unknown) (no (unknown) (unknown) Respiratory Rate (units (unknown) date) 20 16 unknown) (unknown) (no (unknown) (unknown) Respiratory Rate (units (unknown) date) 31 H 17 unknown) (unknown) (no (unknown) (unknown) SARS-CoV-2 (PCR) (units (unknown) date) Negative unknown) (unknown) (no (unknown) (unknown) SARS-CoV-2 (PCR) (units (unknown) date) unknown) (unknown) (no (unknown) (unknown) Signed By: (units (unk nown) date) unknown) (unknown) (no (unknown) (unknown) Smoking Status: (units (unknown) date) Former smoker unknown) (unknown) (no (unknown) (unknown) Social History (units (unknown) date) (Reviewed 05/27/22 unknown) @ 19:26 by Dalton Graff DO) (unknown) (no (unknown) (unknown) Sodium 132 L (units (u nknown) date) unknown) (unknown) (no (unknown) (unknown) Sodium 134 L (units (u nknown) date) unknown) (unknown) (no (unknown) (unknown) Sodium 136 L (units (u nknown) date) unknown) (unknown) (no (unknown) (unknown) Sodium (units (unkno wn) date) unknown) (unknown) (no (unknown) (unknown) TSH 2.80 (units (unkno wn) date) unknown) (unknown) (no (unknown) (unknown) TSH (units (unkno wn) date) unknown) (unknown) (no (unknown) (unknown) Temperature 98.2 F (units (unknown) date) unknown) (unknown) (no (unknown) (unknown) Temperature 98.8 F (units (unknown) date) unknown) (unknown) (no (unknown) (unknown) Temperature (units (un known) date) unknown) (unknown) (no (unknown) (unknown) This patient will (units (unknown) date) be admitted as ICU unknown) and will require greater than 2 midnights (unknown) (no (unknown) (unknown) Time Spent With (units (unknown) date) Patient unknown) (unknown) (no (unknown) (unknown) Total Bilirubin (units (unknown) date) 2.2 H unknown) (unknown) (no (unknown) (unknown) Total Bilirubin (units (unknown) date) 2.7 H unknown) (unknown) (no (unknown) (unknown) Total Bilirubin (units (unknown) date) unknown) (unknown) (no (unknown) (unknown) Total Creatine (units (unknown) date) Kinase 57 unknown) (unknown) (no (unknown) (unknown) Total Creatine (units (unknown) date) Kinase unknown) (unknown) (no (unknown) (unknown) Total Protein 6.9 (units (unknown) date) unknown) (unknown) (no (unknown) (unknown) Total Protein 7.8 (units (unknown) date) unknown) (unknown) (no (unknown) (unknown) Total Protein (units ( unknown) date) unknown) (unknown) (no (unknown) (unknown) Troponin I < 0.012 (units (unknown) date) unknown) (unknown) (no (unknown) (unknown) Troponin I (units (unk nown) date) unknown) (unknown) (no (unknown) (unknown) U Benzodiazepines (units (unknown) date) Scrn Negative unknown) (unknown) (no (unknown) (unknown) U Benzodiazepines (units (unknown) date) Scrn unknown) (unknown) (no (unknown) (unknown) U Marijuana (THC) (units (unknown) date) Screen Positive H unknown) (unknown) (no (unknown) (unknown) U Marijuana (THC) (units (unknown) date) Screen unknown) (unknown) (no (unknown) (unknown) U Methamphetamines (units (unknown) date) Scrn Negative unknown) (unknown) (no (unknown) (unknown) U Methamphetamines (units (unknown) date) Scrn unknown) (unknown) (no (unknown) (unknown) U Opiates 300ng/mL (units (unknown) date) cut Negative unknown) (unknown) (no (unknown) (unknown) U Opiates 300ng/mL (units (unknown) date) cut unknown) (unknown) (no (unknown) (unknown) U Tricyclic (units (un known) date) Antidepress unknown) Negative (unknown) (no (unknown) (unknown) U Tricyclic (units (un known) date) Antidepress unknown) (unknown) (no (unknown) (unknown) Ur Amphetamines (units (unknown) date) Screen Negative unknown) (unknown) (no (unknown) (unknown) Ur Amphetamines (units (unknown) date) Screen unknown) (unknown) (no (unknown) (unknown) Ur Barbiturates (units (unknown) date) Screen Negative unknown) (unknown) (no (unknown) (unknown) Ur Barbiturates (units (unknown) date) Screen unknown) (unknown) (no (unknown) (unknown) Ur Culture (units (unk nown) date) Indicated? Cult not unknown) indicated (unknown) (no (unknown) (unknown) Ur Culture (units (unk nown) date) Indicated? unknown) (unknown) (no (unknown) (unknown) Ur Leukocyte (units (u nknown) date) Esterase Negative unknown) (unknown) (no (unknown) (unknown) Ur Leukocyte (units (u nknown) date) Esterase unknown) (unknown) (no (unknown) (unknown) Ur MDMA Scrn (units (u nknown) date) (Ecstasy) Negative unknown) (unknown) (no (unknown) (unknown) Ur MDMA Scrn (units (u nknown) date) (Ecstasy) unknown) (unknown) (no (unknown) (unknown) Ur Oxycodone (units (u nknown) date) Screen Negative unknown) (unknown) (no (unknown) (unknown) Ur Oxycodone (units (u nknown) date) Screen unknown) (unknown) (no (unknown) (unknown) Ur Phencyclidine (units (unknown) date) Scrn Negative unknown) (unknown) (no (unknown) (unknown) Ur Phencyclidine (units (unknown) date) Scrn unknown) (unknown) (no (unknown) (unknown) Ur Specific (units (un known) date) [place] 1.010 unknown) (unknown) (no (unknown) (unknown) Ur Specific (units (un known) date) [place] unknown) (unknown) (no (unknown) (unknown) Urine Appearance (units (unknown) date) Clear unknown) (unknown) (no (unknown) (unknown) Urine Appearance (units (unknown) date) unknown) (unknown) (no (unknown) (unknown) Urine Bacteria (units (unknown) date) None seen unknown) (unknown) (no (unknown) (unknown) Urine Bacteria (units (unknown) date) unknown) (unknown) (no (unknown) (unknown) Urine Bilirubin (units (unknown) date) Negative unknown) (unknown) (no (unknown) (unknown) Urine Bilirubin (units (unknown) date) unknown) (unknown) (no (unknown) (unknown) Urine Cocaine (units ( unknown) date) Screen Negative unknown) (unknown) (no (unknown) (unknown) Urine Cocaine (units ( unknown) date) Screen unknown) (unknown) (no (unknown) (unknown) Urine Color Yellow (units (unknown) date) unknown) (unknown) (no (unknown) (unknown) Urine Color (units (un known) date) unknown) (unknown) (no (unknown) (unknown) Urine Glucose (UA) (units (unknown) date) 3+ H unknown) (unknown) (no (unknown) (unknown) Urine Glucose (UA) (units (unknown) date) unknown) (unknown) (no (unknown) (unknown) Urine Ketones 3+ H (units (unknown) date) unknown) (unknown) (no (unknown) (unknown) Urine Ketones (units ( unknown) date) unknown) (unknown) (no (unknown) (unknown) Urine Methadone (units (unknown) date) Screen Negative unknown) (unknown) (no (unknown) (unknown) Urine Methadone (units (unknown) date) Screen unknown) (unknown) (no (unknown) (unknown) Urine Nitrate (units ( unknown) date) Negative unknown) (unknown) (no (unknown) (unknown) Urine Nitrate (units ( unknown) date) unknown) (unknown) (no (unknown) (unknown) Urine Occult Blood (units (unknown) date) Negative unknown) (unknown) (no (unknown) (unknown) Urine Occult Blood (units (unknown) date) unknown) (unknown) (no (unknown) (unknown) Urine Protein (units ( unknown) date) Negative unknown) (unknown) (no (unknown) (unknown) Urine Protein (units ( unknown) date) unknown) (unknown) (no (unknown) (unknown) Urine RBC None (units (unknown) date) seen unknown) (unknown) (no (unknown) (unknown) Urine RBC (units (unkn own) date) unknown) (unknown) (no (unknown) (unknown) Urine Urobilinogen (units (unknown) date) 0.2 unknown) (unknown) (no (unknown) (unknown) Urine Urobilinogen (units (unknown) date) unknown) (unknown) (no (unknown) (unknown) Urine WBC None (units (unknown) date) seen unknown) (unknown) (no (unknown) (unknown) Urine WBC (units (unkn own) date) unknown) (unknown) (no (unknown) (unknown) Urine pH 6.0 (units (u nknown) date) unknown) (unknown) (no (unknown) (unknown) Urine pH (units (o wn) date) unknown) (unknown) (no (unknown) (unknown) VBG Base Excess (units (unknown) date) -11.0 L unknown) (unknown) (no (unknown) (unknown) VBG Base Excess (units (unknown) date) unknown) (unknown) (no (unknown) (unknown) VBG HCO3 15 L (units ( unknown) date) unknown) (unknown) (no (unknown) (unknown) VBG HCO3 (units (unkno wn) date) unknown) (unknown) (no (unknown) (unknown) VBG O2 Saturation (units (unknown) date) 46 L unknown) (unknown) (no (unknown) (unknown) VBG O2 Saturation (units (unknown) date) unknown) (unknown) (no (unknown) (unknown) VBG Total CO2 16 L (units (unknown) date) unknown) (unknown) (no (unknown) (unknown) VBG Total CO2 (units ( unknown) date) unknown) (unknown) (no (unknown) (unknown) VBG pCO2 26.7 L (units (unknown) date) unknown) (unknown) (no (unknown) (unknown) VBG pCO2 (units (o wn) date) unknown) (unknown) (no (unknown) (unknown) VBG pH 7.35 (units (un known) date) unknown) (unknown) (no (unknown) (unknown) VBG pH (units (o wn) date) unknown) (unknown) (no (unknown) (unknown) VBG pO2 26 L (units (u nknown) date) unknown) (unknown) (no (unknown) (unknown) VBG pO2 (units (unkno wn) date) unknown) (unknown) (no (unknown) (unknown) VTE (units (o wn) date) unknown) (unknown) (no (unknown) (unknown) Vital Signs (units (un known) date) unknown) (unknown) (no (unknown) (unknown) WBC 11.2 H (units (unk nown) date) unknown) (unknown) (no (unknown) (unknown) WBC 11.4 H (units (unk nown) date) unknown) (unknown) (no (unknown) (unknown) WBC (units (unkno wn) date) unknown) (unknown) (no (unknown) (unknown) [Embedded Image (units (unknown) date) Not Available] unknown) (unknown) (no (unknown) (unknown) alcohol intake: (units (unknown) date) current unknown) (unknown) (no (unknown) (unknown) household members: (units (unknown) date) spouse unknown) (unknown) (no (unknown) (unknown) meds. (units (unkno wn) date) unknown) (unknown) (no (unknown) (unknown) of hospital time (units (unknown) date) to treat DKA. unknown) (unknown) (no (unknown) (unknown) substance use (units ( unknown) date) type: does not use unknown) (unknown) (no (unknown) (unknown) today; this time (units (unknown) date) is exclusive of unknown) procedural time. (unknown) (no (unknown) (unknown) toothache for 1 (units (unknown) date) week unknown) Result panel 308 (unknown) (no (unknown) (unknown) (no value) (units (unk nown) date) unknown) (unknown) (no (unknown) (unknown) # acute DKA (units (un known) date) unknown) (unknown) (no (unknown) (unknown) # toothache (units (un known) date) unknown) (unknown) (no (unknown) (unknown) # type 1 diabetes (units (unknown) date) unknown) (unknown) (no (unknown) (unknown) (past 8 hours): (units (unknown) date) unknown) (unknown) (no (unknown) (unknown) -A1c 9.5% (units (unkn own) date) unknown) (unknown) (no (unknown) (unknown) -blood sugar 731 on (units (unknown) date) admission, anion unknown) gap 26, bicarb 12, ketones positive at 6.46 (unknown) (no (unknown) (unknown) -continue Rocephin (units (unknown) date) and Flagyl unknown) (unknown) (no (unknown) (unknown) -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 (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 (unk nown) date) 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 unknown) (unknown) (no (unknown) (unknown) -on insulin (units (un known) date) protocol unknown) (unknown) (no (unknown) (unknown) -tele ICU (units (unkn own) date) consulted unknown) (unknown) (no (unknown) (unknown) -transition to (units (unknown) date) subcutaneous unknown) insulin once gap closes (unknown) (no (unknown) (unknown) -unclear if he has (units (unknown) date) dental infection unknown) which triggered the DKA, as he is noticed a (unknown) (no (unknown) (unknown) 01:03 05/28/22 (units (unknown) date) unknown) (unknown) (no (unknown) (unknown) 02:00 05/28/22 (units (unknown) date) unknown) (unknown) (no (unknown) (unknown) 02:00 (units (unkno wn) date) unknown) (unknown) (no (unknown) (unknown) 02:02 05/28/22 (units (unknown) date) unknown) (unknown) (no (unknown) (unknown) 02:05 (units (unkno wn) date) unknown) (unknown) (no (unknown) (unknown) 05/27/22 05/27/22 (units (unknown) date) 05/27/22 unknown) (unknown) (no (unknown) (unknown) 05/27/22 05/27/22 (units (unknown) date) 05/28/22 unknown) (unknown) (no (unknown) (unknown) 05/28/22 04:20 (units (unknown) date) unknown) (unknown) (no (unknown) (unknown) 05/28/22 (units (unkno wn) date) unknown) (unknown) (no (unknown) (unknown) 03:00 05/28/22 (units (unknown) date) unknown) (unknown) (no (unknown) (unknown) 04:00 05/28/22 (units (unknown) date) unknown) (unknown) (no (unknown) (unknown) 04:00 (units (unkno wn) date) unknown) (unknown) (no (unknown) (unknown) 04:19 05/28/22 (units (unknown) date) unknown) (unknown) (no (unknown) (unknown) 04:20 (units (unkno wn) date) unknown) (unknown) (no (unknown) (unknown) 06:00 05/28/22 (units (unknown) date) unknown) (unknown) (no (unknown) (unknown) 06:00 (units (unkno wn) date) unknown) (unknown) (no (unknown) (unknown) 06:18 05/28/22 (units (unknown) date) unknown) (unknown) (no (unknown) (unknown) 06:30 05/28/22 (units (unknown) date) unknown) (unknown) (no (unknown) (unknown) 07:00 (units (unkno wn) date) unknown) (unknown) (no (unknown) (unknown) 07:30 05/28/22 (units (unknown) date) unknown) (unknown) (no (unknown) (unknown) 08:00 05/28/22 (units (unknown) date) unknown) (unknown) (no (unknown) (unknown) 08:00 (units (unkno wn) date) unknown) (unknown) (no (unknown) (unknown) 12:55 13:50 13:50 (units (unknown) date) unknown) (unknown) (no (unknown) (unknown) 13:50 13:50 13:50 (units (unknown) date) unknown) (unknown) (no (unknown) (unknown) 14:15 14:40 14:40 (units (unknown) date) unknown) (unknown) (no (unknown) (unknown) 15:12 16:28 16:50 (units (unknown) date) unknown) (unknown) (no (unknown) (unknown) 20:00 22:05 04:20 (units (unknown) date) unknown) (unknown) (no (unknown) (unknown) 6599 (units (unkno wn) date) unknown) (unknown) (no (unknown) (unknown) ABD: soft, (units (unk nown) date) nontender, unknown) nondistended, no organomegaly (unknown) (no (unknown) (unknown) ABG Base Excess (units (unknown) date) -15.0 L unknown) (unknown) (no (unknown) (unknown) ABG Base Excess (units (unknown) date) unknown) (unknown) (no (unknown) (unknown) ABG HCO3 12 L (units ( unknown) date) unknown) (unknown) (no (unknown) (unknown) ABG HCO3 (units (unkno wn) date) unknown) (unknown) (no (unknown) (unknown) ABG O2 Saturation (units (unknown) date) 97 unknown) (unknown) (no (unknown) (unknown) ABG O2 Saturation (units (unknown) date) unknown) (unknown) (no (unknown) (unknown) ABG Total CO2 12 L (units (unknown) date) unknown) (unknown) (no (unknown) (unknown) ABG Total CO2 (units ( unknown) date) unknown) (unknown) (no (unknown) (unknown) ABG pCO2 24.9 L* (units (unknown) date) unknown) (unknown) (no (unknown) (unknown) ABG pCO2 (units (unkno wn) date) unknown) (unknown) (no (unknown) (unknown) ABG pH 7.27 L* (units (unknown) date) unknown) (unknown) (no (unknown) (unknown) ABG pH (units (unkno wn) date) unknown) (unknown) (no (unknown) (unknown) ABG pO2 99 (units (unk nown) date) unknown) (unknown) (no (unknown) (unknown) ABG pO2 (units (unkno wn) date) unknown) (unknown) (no (unknown) (unknown) ALT 40 (units (unkno wn) date) unknown) (unknown) (no (unknown) (unknown) ALT 44 (units (unkno wn) date) unknown) (unknown) (no (unknown) (unknown) ALT (units (unkno wn) date) unknown) (unknown) (no (unknown) (unknown) AST 27 (units (unkno wn) date) unknown) (unknown) (no (unknown) (unknown) AST 30 (units (unkno wn) date) unknown) (unknown) (no (unknown) (unknown) AST (units (unkno wn) date) unknown) (unknown) (no (unknown) (unknown) Age/Sex: 56 / M (units (unknown) date) unknown) (unknown) (no (unknown) (unknown) Albumin 4.1 (units (un known) date) unknown) (unknown) (no (unknown) (unknown) Albumin 4.7 (units (un known) date) unknown) (unknown) (no (unknown) (unknown) Albumin (units (unkno wn) date) unknown) (unknown) (no (unknown) (unknown) Albumin/Globulin (units (unknown) date) Ratio 1.5 unknown) (unknown) (no (unknown) (unknown) Albumin/Globulin (units (unknown) date) Ratio unknown) (unknown) (no (unknown) (unknown) Alkaline (units (unkno wn) date) Phosphatase 104 unknown) (unknown) (no (unknown) (unknown) Alkaline (units (unkno wn) date) Phosphatase 79 unknown) (unknown) (no (unknown) (unknown) Alkaline (units (unkno wn) date) Phosphatase unknown) (unknown) (no (unknown) (unknown) Amorphous Sediment (units (unknown) date) 1 unknown) (unknown) (no (unknown) (unknown) Amorphous Sediment (units (unknown) date) unknown) (unknown) (no (unknown) (unknown) Assessment + Plan (units (unknown) date) narrative: unknown) (unknown) (no (unknown) (unknown) Assessment + Plan (units (unknown) date) unknown) (unknown) (no (unknown) (unknown) BUN 22 H (units (unkno wn) date) unknown) (unknown) (no (unknown) (unknown) BUN 23 H (units (unkno wn) date) unknown) (unknown) (no (unknown) (unknown) BUN 24 H (units (unkno wn) date) unknown) (unknown) (no (unknown) (unknown) BUN (units (unkno wn) date) unknown) (unknown) (no (unknown) (unknown) BUN/Creatinine (units (unknown) date) Ratio 20.0 unknown) (unknown) (no (unknown) (unknown) BUN/Creatinine (units (unknown) date) Ratio 21.4 unknown) (unknown) (no (unknown) (unknown) BUN/Creatinine (units (unknown) date) Ratio 23.2 H unknown) (unknown) (no (unknown) (unknown) BUN/Creatinine (units (unknown) date) Ratio 24.2 H unknown) (unknown) (no (unknown) (unknown) BUN/Creatinine (units (unknown) date) Ratio unknown) (unknown) (no (unknown) (unknown) Baso # (Auto) 0 (units (unknown) date) unknown) (unknown) (no (unknown) (unknown) Baso # (Auto) 100 (units (unknown) date) unknown) (unknown) (no (unknown) (unknown) Baso # (Auto) (units ( unknown) date) unknown) (unknown) (no (unknown) (unknown) Baso % (Auto) 0.4 (units (unknown) date) unknown) (unknown) (no (unknown) (unknown) Baso % (Auto) 0.5 (units (unknown) date) unknown) (unknown) (no (unknown) (unknown) Baso % (Auto) (units ( unknown) date) unknown) (unknown) (no (unknown) (unknown) Blood Pressure (units (unknown) date) 114/63 unknown) (unknown) (no (unknown) (unknown) Blood Pressure (units (unknown) date) 120/60 unknown) (unknown) (no (unknown) (unknown) Blood Pressure (units (unknown) date) 125/61 unknown) (unknown) (no (unknown) (unknown) Blood Pressure (units (unknown) date) 96/51 L unknown) (unknown) (no (unknown) (unknown) Blood Pressure (units (unknown) date) 97/54 L unknown) (unknown) (no (unknown) (unknown) Blood Pressure (units (unknown) date) unknown) (unknown) (no (unknown) (unknown) CK-MB (CK-2) Rel (units (unknown) date) Index TNP unknown) (unknown) (no (unknown) (unknown) CK-MB (CK-2) Rel (units (unknown) date) Index unknown) (unknown) (no (unknown) (unknown) CK-MB (CK-2) TNP (units (unknown) date) unknown) (unknown) (no (unknown) (unknown) CK-MB (CK-2) (units (u nknown) date) unknown) (unknown) (no (unknown) (unknown) COVID negative. (units (unknown) date) unknown) (unknown) (no (unknown) (unknown) CV: regular rate (units (unknown) date) and rhythm, no unknown) murmurs (unknown) (no (unknown) (unknown) Calcium 8.1 L (units ( unknown) date) unknown) (unknown) (no (unknown) (unknown) Calcium 8.5 (units (un known) date) unknown) (unknown) (no (unknown) (unknown) Calcium 8.8 (units (un known) date) unknown) (unknown) (no (unknown) (unknown) Calcium 9.7 (units (un known) date) unknown) (unknown) (no (unknown) (unknown) Calcium (units (unkno wn) date) unknown) (unknown) (no (unknown) (unknown) Carbon Dioxide 12 (units (unknown) date) L unknown) (unknown) (no (unknown) (unknown) Carbon Dioxide 21 (units (unknown) date) L unknown) (unknown) (no (unknown) (unknown) Carbon Dioxide 22 (units (unknown) date) unknown) (unknown) (no (unknown) (unknown) Carbon Dioxide 8 (units (unknown) date) L* unknown) (unknown) (no (unknown) (unknown) Carbon Dioxide (units (unknown) date) unknown) (unknown) (no (unknown) (unknown) Chloride 103 (units (u nknown) date) unknown) (unknown) (no (unknown) (unknown) Chloride 105 (units (u nknown) date) unknown) (unknown) (no (unknown) (unknown) Chloride 106 (units (u nknown) date) unknown) (unknown) (no (unknown) (unknown) Chloride 94 L (units ( unknown) date) unknown) (unknown) (no (unknown) (unknown) Chloride (units (unkno wn) date) unknown) (unknown) (no (unknown) (unknown) Code status is (units (unknown) date) full code. unknown) (unknown) (no (unknown) (unknown) Creatinine 0.91 (units (unknown) date) unknown) (unknown) (no (unknown) (unknown) Creatinine 0.95 (units (unknown) date) unknown) (unknown) (no (unknown) (unknown) Creatinine 1.12 (units (unknown) date) unknown) (unknown) (no (unknown) (unknown) Creatinine 1.15 (units (unknown) date) unknown) (unknown) (no (unknown) (unknown) Creatinine (units (unk nown) date) unknown) (unknown) (no (unknown) (unknown) Critical Care (units ( unknown) date) time: unknown) (unknown) (no (unknown) (unknown) : 1965 (units (unknown) date) Acct:[id number] unknown) (unknown) (no (unknown) (unknown) DVT prophylaxis (units (unknown) date) with SCDs. unknown) (unknown) (no (unknown) (unknown) Date of Service: (units (unknown) date) 05/27/22 unknown) (unknown) (no (unknown) (unknown) Deep Vein (units (unkn own) date) Thrombosis/Pulmonar unknown) y Embolism Present on Admission: No (unknown) (no (unknown) (unknown) EXT: warm and well (units (unknown) date) perfused with no unknown) edema (unknown) (no (unknown) (unknown) Eos # (Auto) 0 (units (unknown) date) unknown) (unknown) (no (unknown) (unknown) Eos # (Auto) (units (u nknown) date) unknown) (unknown) (no (unknown) (unknown) Eos % (Auto) 0.1 L (units (unknown) date) unknown) (unknown) (no (unknown) (unknown) Eos % (Auto) 0.2 L (units (unknown) date) unknown) (unknown) (no (unknown) (unknown) Eos % (Auto) (units (u nknown) date) unknown) (unknown) (no (unknown) (unknown) Estimated GFR > 60 (units (unknown) date) unknown) (unknown) (no (unknown) (unknown) Estimated GFR (units ( unknown) date) unknown) (unknown) (no (unknown) (unknown) Ethyl Alcohol < 10 (units (unknown) date) unknown) (unknown) (no (unknown) (unknown) Ethyl Alcohol (units ( unknown) date) unknown) (unknown) (no (unknown) (unknown) Exam Narrative: (units (unknown) date) unknown) (unknown) (no (unknown) (unknown) Exam (units (unkno wn) date) unknown) (unknown) (no (unknown) (unknown) FiO2 21 (units (unkno wn) date) unknown) (unknown) (no (unknown) (unknown) FiO2 (units (unkno wn) date) unknown) (unknown) (no (unknown) (unknown) GEN: no acute (units ( unknown) date) distress unknown) (unknown) (no (unknown) (unknown) Globulin 2.8 (units (u nknown) date) unknown) (unknown) (no (unknown) (unknown) Globulin 3.1 (units (u nknown) date) unknown) (unknown) (no (unknown) (unknown) Globulin (units (unkno wn) date) unknown) (unknown) (no (unknown) (unknown) Glucose 155 H D (units (unknown) date) unknown) (unknown) (no (unknown) (unknown) Glucose 206 H (units ( unknown) date) unknown) (unknown) (no (unknown) (unknown) Glucose 532 H* (units (unknown) date) unknown) (unknown) (no (unknown) (unknown) Glucose 731 H* (units (unknown) date) unknown) (unknown) (no (unknown) (unknown) Glucose (units (unkno wn) date) unknown) (unknown) (no (unknown) (unknown) HEENT: moist (units (u nknown) date) mucous membranes, unknown) PERRL (unknown) (no (unknown) (unknown) Hct 37.2 L (units (unk nown) date) unknown) (unknown) (no (unknown) (unknown) Hct 44.7 (units (unkno wn) date) unknown) (unknown) (no (unknown) (unknown) Hct (units (unkno wn) date) unknown) (unknown) (no (unknown) (unknown) Hemoglobin A1c 9.5 (units (unknown) date) H unknown) (unknown) (no (unknown) (unknown) Hemoglobin A1c (units (unknown) date) unknown) (unknown) (no (unknown) (unknown) Hgb 12.8 L (units (unk nown) date) unknown) (unknown) (no (unknown) (unknown) Hgb 14.9 (units (unkno wn) date) unknown) (unknown) (no (unknown) (unknown) Hgb (units (unkno wn) date) unknown) (unknown) (no (unknown) (unknown) I have reviewed (units (unknown) date) home meds and used unknown) all available resources to reconcile the home (unknown) (no (unknown) (unknown) I spent a total of (units (unknown) date) 35 minutes of unknown) critical care time on this patient's care (unknown) (no (unknown) (unknown) I spent a total of (units (unknown) date) [] minutes of unknown) critical care time on this patient's care (unknown) (no (unknown) (unknown) 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 unknown) (unknown) (no (unknown) (unknown) [facility] (units (unknown) date) [address] unknown) [place] [address] (unknown) (no (unknown) (unknown) Ketones 6.46 H (units (unknown) date) unknown) (unknown) (no (unknown) (unknown) Ketones (units (unkno wn) date) unknown) (unknown) (no (unknown) (unknown) Laboratory Results (units (unknown) date) - last 24 hr unknown) (unknown) (no (unknown) (unknown) Labs (units (unkno wn) date) unknown) (unknown) (no (unknown) (unknown) Labs: (units (unkno wn) date) unknown) (unknown) (no (unknown) (unknown) Lipase 62 (units (unkn own) date) unknown) (unknown) (no (unknown) (unknown) Lipase (units (unkno wn) date) unknown) (unknown) (no (unknown) (unknown) Lymph # (Auto) (units (unknown) date) 1400 unknown) (unknown) (no (unknown) (unknown) Lymph # (Auto) 700 (units (unknown) date) L unknown) (unknown) (no (unknown) (unknown) Lymph # (Auto) (units (unknown) date) unknown) (unknown) (no (unknown) (unknown) Lymph % (Auto) (units (unknown) date) 12.5 L unknown) (unknown) (no (unknown) (unknown) Lymph % (Auto) 6.4 (units (unknown) date) L unknown) (unknown) (no (unknown) (unknown) Lymph % (Auto) (units (unknown) date) unknown) (unknown) (no (unknown) (unknown) MCH 29.6 (units (unkno wn) date) unknown) (unknown) (no (unknown) (unknown) MCH 29.7 (units (unkno wn) date) unknown) (unknown) (no (unknown) (unknown) MCH (units (unkno wn) date) unknown) (unknown) (no (unknown) (unknown) MCHC 33.3 (units (unkn own) date) unknown) (unknown) (no (unknown) (unknown) MCHC 34.4 (units (unkn own) date) unknown) (unknown) (no (unknown) (unknown) MCHC (units (unkno wn) date) unknown) (unknown) (no (unknown) (unknown) MCV 86.3 (units (unkno wn) date) unknown) (unknown) (no (unknown) (unknown) MCV 89.1 (units (unkno wn) date) unknown) (unknown) (no (unknown) (unknown) MCV (units (unkno wn) date) unknown) (unknown) (no (unknown) (unknown) Magnesium 1.8 (units ( unknown) date) unknown) (unknown) (no (unknown) (unknown) Magnesium (units (unkn own) date) unknown) (unknown) (no (unknown) (unknown) Medical History (units (unknown) date) (Reviewed 05/27/22 unknown) @ 19:26 by Dalton Graff DO) (unknown) (no (unknown) (unknown) [place] # (Auto) 1000 (units (unknown) date) H unknown) (unknown) (no (unknown) (unknown) [place] # (Auto) 300 (units (unknown) date) unknown) (unknown) (no (unknown) (unknown) [place] # (Auto) (units ( unknown) date) unknown) (unknown) (no (unknown) (unknown) [place] % (Auto) 2.7 (units (unknown) date) L unknown) (unknown) (no (unknown) (unknown) [place] % (Auto) 9.0 (units (unknown) date) unknown) (unknown) (no (unknown) (unknown) [place] % (Auto) (units ( unknown) date) unknown) (unknown) (no (unknown) (unknown) NECK: trachea (units ( unknown) date) midline, no JVD unknown) (unknown) (no (unknown) (unknown) NEURO: awake, (units ( unknown) date) alert, oriented, no unknown) focal deficits (unknown) (no (unknown) (unknown) Narrative (units (unkn own) date) unknown) (unknown) (no (unknown) (unknown) Nasal Screen MRSA (units (unknown) date) (PCR) Not detected unknown) (unknown) (no (unknown) (unknown) Nasal Screen MRSA (units (unknown) date) (PCR) unknown) (unknown) (no (unknown) (unknown) Neut # (Auto) (units ( unknown) date) [address]609 H unknown) (unknown) (no (unknown) (unknown) Neut # (Auto) 8900 (units (unknown) date) H unknown) (unknown) (no (unknown) (unknown) Neut # (Auto) (units ( unknown) date) unknown) (unknown) (no (unknown) (unknown) Neut % (Auto) 77.9 (units (unknown) date) H unknown) (unknown) (no (unknown) (unknown) Neut % (Auto) 90.3 (units (unknown) date) H unknown) (unknown) (no (unknown) (unknown) Neut % (Auto) (units ( unknown) date) unknown) (unknown) (no (unknown) (unknown) Objective (units (unkn own) date) unknown) (unknown) (no (unknown) (unknown) Oxygen Delivery (units (unknown) date) Method Room Air unknown) (unknown) (no (unknown) (unknown) PFSH (units (unkno wn) date) unknown) (unknown) (no (unknown) (unknown) PULM: clear (units (un known) date) bilaterally unknown) (unknown) (no (unknown) (unknown) Patient: (units (unkno wn) date) Ed Meredith MR#: unknown) [id number] (unknown) (no (unknown) (unknown) Phosphorus 3.6 (units (unknown) date) unknown) (unknown) (no (unknown) (unknown) Phosphorus (units (unk nown) date) unknown) (unknown) (no (unknown) (unknown) Plt Count 233 (units ( unknown) date) unknown) (unknown) (no (unknown) (unknown) Plt Count 243 (units ( unknown) date) unknown) (unknown) (no (unknown) (unknown) Plt Count (units (unkn own) date) unknown) (unknown) (no (unknown) (unknown) Potassium 3.9 (units ( unknown) date) unknown) (unknown) (no (unknown) (unknown) Potassium 4.4 (units ( unknown) date) unknown) (unknown) (no (unknown) (unknown) Potassium 5.0 (units ( unknown) date) unknown) (unknown) (no (unknown) (unknown) Potassium (units (unkn own) date) unknown) (unknown) (no (unknown) (unknown) Progress Note (units ( unknown) date) unknown) (unknown) (no (unknown) (unknown) Provider: (units (unkn own) date) Rajesh Coles unknown) D.O. (unknown) (no (unknown) (unknown) Proxy is (units ( unknown) date) Juliane. unknown) (unknown) (no (unknown) (unknown) Pulse Oximetry 100 (units (unknown) date) unknown) (unknown) (no (unknown) (unknown) Pulse Oximetry 97 (units (unknown) date) unknown) (unknown) (no (unknown) (unknown) Pulse Oximetry (units (unknown) date) unknown) (unknown) (no (unknown) (unknown) Pulse Rate 64 64 (units (unknown) date) 65 unknown) (unknown) (no (unknown) (unknown) Pulse Rate 65 65 (units (unknown) date) unknown) (unknown) (no (unknown) (unknown) Pulse Rate 66 57 L (units (unknown) date) unknown) (unknown) (no (unknown) (unknown) Pulse Rate 74 66 (units (unknown) date) unknown) (unknown) (no (unknown) (unknown) Pulse Rate 81 66 (units (unknown) date) unknown) (unknown) (no (unknown) (unknown) Quality (units (unkno wn) date) unknown) (unknown) (no (unknown) (unknown) RBC 4.31 L (units (unk nown) date) unknown) (unknown) (no (unknown) (unknown) RBC 5.02 (units (unkno wn) date) unknown) (unknown) (no (unknown) (unknown) RBC (units (unkno wn) date) unknown) (unknown) (no (unknown) (unknown) RDW 13.3 (units (unkno wn) date) unknown) (unknown) (no (unknown) (unknown) RDW 13.7 (units (unkno wn) date) unknown) (unknown) (no (unknown) (unknown) RDW (units (unkno wn) date) unknown) (unknown) (no (unknown) (unknown) Respiratory Rate (units (unknown) date) 15 16 unknown) (unknown) (no (unknown) (unknown) Respiratory Rate (units (unknown) date) 17 17 18 unknown) (unknown) (no (unknown) (unknown) Respiratory Rate (units (unknown) date) 18 16 unknown) (unknown) (no (unknown) (unknown) Respiratory Rate (units (unknown) date) 18 18 unknown) (unknown) (no (unknown) (unknown) Respiratory Rate (units (unknown) date) 20 16 unknown) (unknown) (no (unknown) (unknown) Respiratory Rate (units (unknown) date) 31 H 17 unknown) (unknown) (no (unknown) (unknown) SARS-CoV-2 (PCR) (units (unknown) date) Negative unknown) (unknown) (no (unknown) (unknown) SARS-CoV-2 (PCR) (units (unknown) date) unknown) (unknown) (no (unknown) (unknown) Signed By: (units (unk nown) date) unknown) (unknown) (no (unknown) (unknown) Smoking Status: (units (unknown) date) Former smoker unknown) (unknown) (no (unknown) (unknown) Social History (units (unknown) date) (Reviewed 05/27/22 unknown) @ 19:26 by Dalton Graff DO) (unknown) (no (unknown) (unknown) Sodium 132 L (units (u nknown) date) unknown) (unknown) (no (unknown) (unknown) Sodium 134 L (units (u nknown) date) unknown) (unknown) (no (unknown) (unknown) Sodium 136 L (units (u nknown) date) unknown) (unknown) (no (unknown) (unknown) Sodium (units (unkno wn) date) unknown) (unknown) (no (unknown) (unknown) TSH 2.80 (units (unkno wn) date) unknown) (unknown) (no (unknown) (unknown) TSH (units (unkno wn) date) unknown) (unknown) (no (unknown) (unknown) Temperature 98.2 F (units (unknown) date) unknown) (unknown) (no (unknown) (unknown) Temperature 98.8 F (units (unknown) date) unknown) (unknown) (no (unknown) (unknown) Temperature (units (un known) date) unknown) (unknown) (no (unknown) (unknown) This patient will (units (unknown) date) be admitted as ICU unknown) and will require greater than 2 midnights (unknown) (no (unknown) (unknown) Time Spent With (units (unknown) date) Patient unknown) (unknown) (no (unknown) (unknown) Total Bilirubin (units (unknown) date) 2.2 H unknown) (unknown) (no (unknown) (unknown) Total Bilirubin (units (unknown) date) 2.7 H unknown) (unknown) (no (unknown) (unknown) Total Bilirubin (units (unknown) date) unknown) (unknown) (no (unknown) (unknown) Total Creatine (units (unknown) date) Kinase 57 unknown) (unknown) (no (unknown) (unknown) Total Creatine (units (unknown) date) Kinase unknown) (unknown) (no (unknown) (unknown) Total Protein 6.9 (units (unknown) date) unknown) (unknown) (no (unknown) (unknown) Total Protein 7.8 (units (unknown) date) unknown) (unknown) (no (unknown) (unknown) Total Protein (units ( unknown) date) unknown) (unknown) (no (unknown) (unknown) Troponin I < 0.012 (units (unknown) date) unknown) (unknown) (no (unknown) (unknown) Troponin I (units (unk nown) date) unknown) (unknown) (no (unknown) (unknown) U Benzodiazepines (units (unknown) date) Scrn Negative unknown) (unknown) (no (unknown) (unknown) U Benzodiazepines (units (unknown) date) Scrn unknown) (unknown) (no (unknown) (unknown) U Marijuana (THC) (units (unknown) date) Screen Positive H unknown) (unknown) (no (unknown) (unknown) U Marijuana (THC) (units (unknown) date) Screen unknown) (unknown) (no (unknown) (unknown) U Methamphetamines (units (unknown) date) Scrn Negative unknown) (unknown) (no (unknown) (unknown) U Methamphetamines (units (unknown) date) Scrn unknown) (unknown) (no (unknown) (unknown) U Opiates 300ng/mL (units (unknown) date) cut Negative unknown) (unknown) (no (unknown) (unknown) U Opiates 300ng/mL (units (unknown) date) cut unknown) (unknown) (no (unknown) (unknown) U Tricyclic (units (un known) date) Antidepress unknown) Negative (unknown) (no (unknown) (unknown) U Tricyclic (units (un known) date) Antidepress unknown) (unknown) (no (unknown) (unknown) Ur Amphetamines (units (unknown) date) Screen Negative unknown) (unknown) (no (unknown) (unknown) Ur Amphetamines (units (unknown) date) Screen unknown) (unknown) (no (unknown) (unknown) Ur Barbiturates (units (unknown) date) Screen Negative unknown) (unknown) (no (unknown) (unknown) Ur Barbiturates (units (unknown) date) Screen unknown) (unknown) (no (unknown) (unknown) Ur Culture (units (unk nown) date) Indicated? Cult not unknown) indicated (unknown) (no (unknown) (unknown) Ur Culture (units (unk nown) date) Indicated? unknown) (unknown) (no (unknown) (unknown) Ur Leukocyte (units (u nknown) date) Esterase Negative unknown) (unknown) (no (unknown) (unknown) Ur Leukocyte (units (u nknown) date) Esterase unknown) (unknown) (no (unknown) (unknown) Ur MDMA Scrn (units (u nknown) date) (Ecstasy) Negative unknown) (unknown) (no (unknown) (unknown) Ur MDMA Scrn (units (u nknown) date) (Ecstasy) unknown) (unknown) (no (unknown) (unknown) Ur Oxycodone (units (u nknown) date) Screen Negative unknown) (unknown) (no (unknown) (unknown) Ur Oxycodone (units (u nknown) date) Screen unknown) (unknown) (no (unknown) (unknown) Ur Phencyclidine (units (unknown) date) Scrn Negative unknown) (unknown) (no (unknown) (unknown) Ur Phencyclidine (units (unknown) date) Scrn unknown) (unknown) (no (unknown) (unknown) Ur Specific (units (un known) date) [place] 1.010 unknown) (unknown) (no (unknown) (unknown) Ur Specific (units (un known) date) [place] unknown) (unknown) (no (unknown) (unknown) Urine Appearance (units (unknown) date) Clear unknown) (unknown) (no (unknown) (unknown) Urine Appearance (units (unknown) date) unknown) (unknown) (no (unknown) (unknown) Urine Bacteria (units (unknown) date) None seen unknown) (unknown) (no (unknown) (unknown) Urine Bacteria (units (unknown) date) unknown) (unknown) (no (unknown) (unknown) Urine Bilirubin (units (unknown) date) Negative unknown) (unknown) (no (unknown) (unknown) Urine Bilirubin (units (unknown) date) unknown) (unknown) (no (unknown) (unknown) Urine Cocaine (units ( unknown) date) Screen Negative unknown) (unknown) (no (unknown) (unknown) Urine Cocaine (units ( unknown) date) Screen unknown) (unknown) (no (unknown) (unknown) Urine Color Yellow (units (unknown) date) unknown) (unknown) (no (unknown) (unknown) Urine Color (units (un known) date) unknown) (unknown) (no (unknown) (unknown) Urine Glucose (UA) (units (unknown) date) 3+ H unknown) (unknown) (no (unknown) (unknown) Urine Glucose (UA) (units (unknown) date) unknown) (unknown) (no (unknown) (unknown) Urine Ketones 3+ H (units (unknown) date) unknown) (unknown) (no (unknown) (unknown) Urine Ketones (units ( unknown) date) unknown) (unknown) (no (unknown) (unknown) Urine Methadone (units (unknown) date) Screen Negative unknown) (unknown) (no (unknown) (unknown) Urine Methadone (units (unknown) date) Screen unknown) (unknown) (no (unknown) (unknown) Urine Nitrate (units ( unknown) date) Negative unknown) (unknown) (no (unknown) (unknown) Urine Nitrate (units ( unknown) date) unknown) (unknown) (no (unknown) (unknown) Urine Occult Blood (units (unknown) date) Negative unknown) (unknown) (no (unknown) (unknown) Urine Occult Blood (units (unknown) date) unknown) (unknown) (no (unknown) (unknown) Urine Protein (units ( unknown) date) Negative unknown) (unknown) (no (unknown) (unknown) Urine Protein (units ( unknown) date) unknown) (unknown) (no (unknown) (unknown) Urine RBC None (units (unknown) date) seen unknown) (unknown) (no (unknown) (unknown) Urine RBC (units (unkn own) date) unknown) (unknown) (no (unknown) (unknown) Urine Urobilinogen (units (unknown) date) 0.2 unknown) (unknown) (no (unknown) (unknown) Urine Urobilinogen (units (unknown) date) unknown) (unknown) (no (unknown) (unknown) Urine WBC None (units (unknown) date) seen unknown) (unknown) (no (unknown) (unknown) Urine WBC (units (unkn own) date) unknown) (unknown) (no (unknown) (unknown) Urine pH 6.0 (units (u nknown) date) unknown) (unknown) (no (unknown) (unknown) Urine pH (units (unkno wn) date) unknown) (unknown) (no (unknown) (unknown) VBG Base Excess (units (unknown) date) -11.0 L unknown) (unknown) (no (unknown) (unknown) VBG Base Excess (units (unknown) date) unknown) (unknown) (no (unknown) (unknown) VBG HCO3 15 L (units ( unknown) date) unknown) (unknown) (no (unknown) (unknown) VBG HCO3 (units (unkno wn) date) unknown) (unknown) (no (unknown) (unknown) VBG O2 Saturation (units (unknown) date) 46 L unknown) (unknown) (no (unknown) (unknown) VBG O2 Saturation (units (unknown) date) unknown) (unknown) (no (unknown) (unknown) VBG Total CO2 16 L (units (unknown) date) unknown) (unknown) (no (unknown) (unknown) VBG Total CO2 (units ( unknown) date) unknown) (unknown) (no (unknown) (unknown) VBG pCO2 26.7 L (units (unknown) date) unknown) (unknown) (no (unknown) (unknown) VBG pCO2 (units (unkno wn) date) unknown) (unknown) (no (unknown) (unknown) VBG pH 7.35 (units (un known) date) unknown) (unknown) (no (unknown) (unknown) VBG pH (units (unkno wn) date) unknown) (unknown) (no (unknown) (unknown) VBG pO2 26 L (units (u nknown) date) unknown) (unknown) (no (unknown) (unknown) VBG pO2 (units (unkno wn) date) unknown) (unknown) (no (unknown) (unknown) VTE (units (unkno wn) date) unknown) (unknown) (no (unknown) (unknown) Vital Signs (units (un known) date) unknown) (unknown) (no (unknown) (unknown) WBC 11.2 H (units (unk nown) date) unknown) (unknown) (no (unknown) (unknown) WBC 11.4 H (units (unk nown) date) unknown) (unknown) (no (unknown) (unknown) WBC (units (unkno wn) date) unknown) (unknown) (no (unknown) (unknown) [Embedded Image (units (unknown) date) Not Available] unknown) (unknown) (no (unknown) (unknown) alcohol intake: (units (unknown) date) current unknown) (unknown) (no (unknown) (unknown) household members: (units (unknown) date) spouse unknown) (unknown) (no (unknown) (unknown) meds. (units (unkno wn) date) unknown) (unknown) (no (unknown) (unknown) of hospital time (units (unknown) date) to treat DKA. unknown) (unknown) (no (unknown) (unknown) substance use (units ( unknown) date) type: does not use unknown) (unknown) (no (unknown) (unknown) today; this time (units (unknown) date) is exclusive of unknown) procedural time. (unknown) (no (unknown) (unknown) toothache for 1 (units (unknown) date) week unknown) Result panel 309 (unknown) (no (unknown) (unknown) (no value) (units (unk nown) date) unknown) (unknown) (no (unknown) (unknown) # acute DKA (units (un known) date) unknown) (unknown) (no (unknown) (unknown) # toothache (units (un known) date) unknown) (unknown) (no (unknown) (unknown) # type 1 diabetes (units (unknown) date) unknown) (unknown) (no (unknown) (unknown) (past 8 hours): (units (unknown) date) unknown) (unknown) (no (unknown) (unknown) -A1c 9.5% (units (unkn own) date) unknown) (unknown) (no (unknown) (unknown) -blood sugar 731 on (units (unknown) date) admission, anion unknown) gap 26, bicarb 12, ketones positive at 6.46 (unknown) (no (unknown) (unknown) -continue Rocephin (units (unknown) date) and Flagyl unknown) (unknown) (no (unknown) (unknown) -dietitian (units (unk nown) date) consulted unknown) (unknown) (no (unknown) (unknown) -on insulin (units (un known) date) protocol unknown) (unknown) (no (unknown) (unknown) -tele ICU (units (unkn own) date) consulted unknown) (unknown) (no (unknown) (unknown) -transition to (units (unknown) date) subcutaneous unknown) insulin once gap closes (unknown) (no (unknown) (unknown) -unclear if he has (units (unknown) date) dental infection unknown) which triggered the DKA, as he is noticed a (unknown) (no (unknown) (unknown) 05/27/22 05/27/22 (units (unknown) date) 05/27/22 unknown) (unknown) (no (unknown) (unknown) 05/27/22 05/27/22 (units (unknown) date) 05/28/22 unknown) (unknown) (no (unknown) (unknown) 05/27/22 13:08 (units (unknown) date) unknown) (unknown) (no (unknown) (unknown) 05/27/22 17:37 (units (unknown) date) unknown) (unknown) (no (unknown) (unknown) 05/27/22 18:00 (units (unknown) date) unknown) (unknown) (no (unknown) (unknown) 05/27/22 18:02 (units (unknown) date) unknown) (unknown) (no (unknown) (unknown) 05/27/22 20:05 (units (unknown) date) unknown) (unknown) (no (unknown) (unknown) 05/28/22 04:20 (units (unknown) date) unknown) (unknown) (no (unknown) (unknown) 05/28/22 (units (unkno wn) date) unknown) (unknown) (no (unknown) (unknown) 04:00 05/28/22 (units (unknown) date) unknown) (unknown) (no (unknown) (unknown) 04:19 (units (unkno wn) date) unknown) (unknown) (no (unknown) (unknown) 04:20 (units (unkno wn) date) unknown) (unknown) (no (unknown) (unknown) 06:00 05/28/22 (units (unknown) date) unknown) (unknown) (no (unknown) (unknown) 06:18 (units (unkno wn) date) unknown) (unknown) (no (unknown) (unknown) 06:30 05/28/22 (units (unknown) date) unknown) (unknown) (no (unknown) (unknown) 07:00 05/28/22 (units (unknown) date) unknown) (unknown) (no (unknown) (unknown) 07:00 (units (unkno wn) date) unknown) (unknown) (no (unknown) (unknown) 07:30 (units (unkno wn) date) unknown) (unknown) (no (unknown) (unknown) 08:00 05/28/22 (units (unknown) date) unknown) (unknown) (no (unknown) (unknown) 08:30 (units (unkno wn) date) unknown) (unknown) (no (unknown) (unknown) 12:55 13:50 13:50 (units (unknown) date) unknown) (unknown) (no (unknown) (unknown) 13:50 13:50 13:50 (units (unknown) date) unknown) (unknown) (no (unknown) (unknown) 14:15 14:40 14:40 (units (unknown) date) unknown) (unknown) (no (unknown) (unknown) 15:12 16:28 16:50 (units (unknown) date) unknown) (unknown) (no (unknown) (unknown) 20:00 22:05 04:20 (units (unknown) date) unknown) (unknown) (no (unknown) (unknown) 30 mg PO DAILY (units (unknown) date) unknown) (unknown) (no (unknown) (unknown) 40 mg PO BEDTIME (units (unknown) date) unknown) (unknown) (no (unknown) (unknown) 45 mg PO BEDTIME (units (unknown) date) unknown) (unknown) (no (unknown) (unknown) 6599 (units (o wn) date) unknown) (unknown) (no (unknown) (unknown) ABD: soft, (units () ) nontender, unknown) nondistended, no organomegaly (unknown) (no (unknown) (unknown) ABG Base Excess (units (unknown) date) -15.0 L unknown) (unknown) (no (unknown) (unknown) ABG Base Excess (units (unknown) date) unknown) (unknown) (no (unknown) (unknown) ABG HCO3 12 L (units ( unknown) date) unknown) (unknown) (no (unknown) (unknown) ABG HCO3 (units () date) unknown) (unknown) (no (unknown) (unknown) ABG O2 Saturation (units (unknown) date) 97 unknown) (unknown) (no (unknown) (unknown) ABG O2 Saturation (units (unknown) date) unknown) (unknown) (no (unknown) (unknown) ABG Total CO2 12 L (units (unknown) date) unknown) (unknown) (no (unknown) (unknown) ABG Total CO2 (units ( unknown) date) unknown) (unknown) (no (unknown) (unknown) ABG pCO2 24.9 L* (units (unknown) date) unknown) (unknown) (no (unknown) (unknown) ABG pCO2 (units () date) unknown) (unknown) (no (unknown) (unknown) ABG pH 7.27 L* (units (unknown) date) unknown) (unknown) (no (unknown) (unknown) ABG pH (units (o wn) date) unknown) (unknown) (no (unknown) (unknown) ABG pO2 99 (units (k ) date) unknown) (unknown) (no (unknown) (unknown) ABG pO2 (units (unkno wn) date) unknown) (unknown) (no (unknown) (unknown) ALT 40 (units (unkno wn) date) unknown) (unknown) (no (unknown) (unknown) ALT 44 (units (unkno wn) date) unknown) (unknown) (no (unknown) (unknown) ALT (units (unkno wn) date) unknown) (unknown) (no (unknown) (unknown) AST 27 (units (unkno wn) date) unknown) (unknown) (no (unknown) (unknown) AST 30 (units (unkno wn) date) unknown) (unknown) (no (unknown) (unknown) AST (units (unkno wn) date) unknown) (unknown) (no (unknown) (unknown) Age/Sex: 56 / M (units (unknown) date) unknown) (unknown) (no (unknown) (unknown) Albumin 4.1 (units (un known) date) unknown) (unknown) (no (unknown) (unknown) Albumin 4.7 (units (un known) date) unknown) (unknown) (no (unknown) (unknown) Albumin (units (unkno wn) date) unknown) (unknown) (no (unknown) (unknown) Albumin/Globulin (units (unknown) date) Ratio 1.5 unknown) (unknown) (no (unknown) (unknown) Albumin/Globulin (units (unknown) date) Ratio unknown) (unknown) (no (unknown) (unknown) Alkaline (units (unkno wn) date) Phosphatase 104 unknown) (unknown) (no (unknown) (unknown) Alkaline (units (unkno wn) date) Phosphatase 79 unknown) (unknown) (no (unknown) (unknown) Alkaline (units (unkno wn) date) Phosphatase unknown) (unknown) (no (unknown) (unknown) Amorphous Sediment (units (unknown) date) 1 unknown) (unknown) (no (unknown) (unknown) Amorphous Sediment (units (unknown) date) unknown) (unknown) (no (unknown) (unknown) BUN 22 H (units (unkno wn) date) unknown) (unknown) (no (unknown) (unknown) BUN 23 H (units (unkno wn) date) unknown) (unknown) (no (unknown) (unknown) BUN 24 H (units (unkno wn) date) unknown) (unknown) (no (unknown) (unknown) BUN (units (unkno wn) date) unknown) (unknown) (no (unknown) (unknown) BUN/Creatinine (units (unknown) date) Ratio 20.0 unknown) (unknown) (no (unknown) (unknown) BUN/Creatinine (units (unknown) date) Ratio 21.4 unknown) (unknown) (no (unknown) (unknown) BUN/Creatinine (units (unknown) date) Ratio 23.2 H unknown) (unknown) (no (unknown) (unknown) BUN/Creatinine (units (unknown) date) Ratio 24.2 H unknown) (unknown) (no (unknown) (unknown) BUN/Creatinine (units (unknown) date) Ratio unknown) (unknown) (no (unknown) (unknown) Baso # (Auto) 0 (units (unknown) date) unknown) (unknown) (no (unknown) (unknown) Baso # (Auto) 100 (units (unknown) date) unknown) (unknown) (no (unknown) (unknown) Baso # (Auto) (units ( unknown) date) unknown) (unknown) (no (unknown) (unknown) Baso % (Auto) 0.4 (units (unknown) date) unknown) (unknown) (no (unknown) (unknown) Baso % (Auto) 0.5 (units (unknown) date) unknown) (unknown) (no (unknown) (unknown) Baso % (Auto) (units ( unknown) date) unknown) (unknown) (no (unknown) (unknown) Blood Pressure (units (unknown) date) 114/63 unknown) (unknown) (no (unknown) (unknown) Blood Pressure (units (unknown) date) 120/60 unknown) (unknown) (no (unknown) (unknown) Blood Pressure (units (unknown) date) 125/61 unknown) (unknown) (no (unknown) (unknown) Blood Pressure (units (unknown) date) unknown) (unknown) (no (unknown) (unknown) CK-MB (CK-2) Rel (units (unknown) date) Index TNP unknown) (unknown) (no (unknown) (unknown) CK-MB (CK-2) Rel (units (unknown) date) Index unknown) (unknown) (no (unknown) (unknown) CK-MB (CK-2) TNP (units (unknown) date) unknown) (unknown) (no (unknown) (unknown) CK-MB (CK-2) (units (u nknown) date) unknown) (unknown) (no (unknown) (unknown) CV: regular rate (units (unknown) date) and rhythm, no unknown) murmurs (unknown) (no (unknown) (unknown) Calcium 8.1 L (units ( unknown) date) unknown) (unknown) (no (unknown) (unknown) Calcium 8.5 (units (un known) date) unknown) (unknown) (no (unknown) (unknown) Calcium 8.8 (units (un known) date) unknown) (unknown) (no (unknown) (unknown) Calcium 9.7 (units (un known) date) unknown) (unknown) (no (unknown) (unknown) Calcium (units (unkno wn) date) unknown) (unknown) (no (unknown) (unknown) Carbon Dioxide 12 (units (unknown) date) L unknown) (unknown) (no (unknown) (unknown) Carbon Dioxide 21 (units (unknown) date) L unknown) (unknown) (no (unknown) (unknown) Carbon Dioxide 22 (units (unknown) date) unknown) (unknown) (no (unknown) (unknown) Carbon Dioxide 8 (units (unknown) date) L* unknown) (unknown) (no (unknown) (unknown) Carbon Dioxide (units (unknown) date) unknown) (unknown) (no (unknown) (unknown) Chief complaint: (units (unknown) date) chest pain/ n+v/ unknown) high glucose (unknown) (no (unknown) (unknown) Chloride 103 (units (u nknown) date) unknown) (unknown) (no (unknown) (unknown) Chloride 105 (units (u nknown) date) unknown) (unknown) (no (unknown) (unknown) Chloride 106 (units (u nknown) date) unknown) (unknown) (no (unknown) (unknown) Chloride 94 L (units ( unknown) date) unknown) (unknown) (no (unknown) (unknown) Chloride (units (unkno wn) date) unknown) (unknown) (no (unknown) (unknown) Comment: (units (unkno wn) date) unknown) (unknown) (no (unknown) (unknown) Consult to (units (unk nown) date) Dietitian, Adult unknown) Routine (unknown) (no (unknown) (unknown) Consult to WORD PROCESSOR TECHNICIAN - (units (unknown) date) Program Technician unknown) Routine (unknown) (no (unknown) (unknown) Consult to WORD PROCESSOR TECHNICIAN - (units (unknown) date) Program Technician unknown) Stat (unknown) (no (unknown) (unknown) Consult to (units (unk nown) date) Tele-insurance account executive unknown) Routine (unknown) (no (unknown) (unknown) Consulting (units (unk nown) date) Provider: Intercept unknown) Tele-intensivists (unknown) (no (unknown) (unknown) Consults: (units (unkn own) date) unknown) (unknown) (no (unknown) (unknown) Continued (units (unkn own) date) unknown) (unknown) (no (unknown) (unknown) Creatinine 0.91 (units (unknown) date) unknown) (unknown) (no (unknown) (unknown) Creatinine 0.95 (units (unknown) date) unknown) (unknown) (no (unknown) (unknown) Creatinine 1.12 (units (unknown) date) unknown) (unknown) (no (unknown) (unknown) Creatinine 1.15 (units (unknown) date) unknown) (unknown) (no (unknown) (unknown) Creatinine (units (unk nown) date) unknown) (unknown) (no (unknown) (unknown) : 1965 (units (unknown) date) Acct:[id number] unknown) (unknown) (no (unknown) (unknown) Date Patient Seen: (units (unknown) date) 05/28/22 unknown) (unknown) (no (unknown) (unknown) Date of Service: (units (unknown) date) 05/27/22 unknown) (unknown) (no (unknown) (unknown) Date of admission: (units (unknown) date) unknown) (unknown) (no (unknown) (unknown) Deep Vein (units (unkn own) date) Thrombosis/Pulmonar unknown) y Embolism Present on Admission: No (unknown) (no (unknown) (unknown) Discharge Data (units (unknown) date) unknown) (unknown) (no (unknown) (unknown) Discharge Date: (units (unknown) date) 05/28/22 unknown) (unknown) (no (unknown) (unknown) Discharge (units (unkn own) date) Diagnosis: unknown) (unknown) (no (unknown) (unknown) Discharge Plan (units (unknown) date) unknown) (unknown) (no (unknown) (unknown) Discharge (units (unkn own) date) Providers unknown) (unknown) (no (unknown) (unknown) Discharge Summary (units (unknown) date) unknown) (unknown) (no (unknown) (unknown) Discharge orders + (units (unknown) date) Medications unknown) (unknown) (no (unknown) (unknown) Discharge (units (unkn own) date) provider: unknown) (unknown) (no (unknown) (unknown) EXT: warm and well (units (unknown) date) perfused with no unknown) edema (unknown) (no (unknown) (unknown) Eos # (Auto) 0 (units (unknown) date) unknown) (unknown) (no (unknown) (unknown) Eos # (Auto) (units (u nknown) date) unknown) (unknown) (no (unknown) (unknown) Eos % (Auto) 0.1 L (units (unknown) date) unknown) (unknown) (no (unknown) (unknown) Eos % (Auto) 0.2 L (units (unknown) date) unknown) (unknown) (no (unknown) (unknown) Eos % (Auto) (units (u nknown) date) unknown) (unknown) (no (unknown) (unknown) Estimated GFR > 60 (units (unknown) date) unknown) (unknown) (no (unknown) (unknown) Estimated GFR (units ( unknown) date) unknown) (unknown) (no (unknown) (unknown) Ethyl Alcohol < 10 (units (unknown) date) unknown) (unknown) (no (unknown) (unknown) Ethyl Alcohol (units ( unknown) date) unknown) (unknown) (no (unknown) (unknown) Exam Narrative: (units (unknown) date) unknown) (unknown) (no (unknown) (unknown) Exam (units (unkno wn) date) unknown) (unknown) (no (unknown) (unknown) FiO2 21 (units (unkno wn) date) unknown) (unknown) (no (unknown) (unknown) FiO2 (units (unkno wn) date) unknown) (unknown) (no (unknown) (unknown) Follow (units (unkno wn) date) up/Referrals: unknown) (unknown) (no (unknown) (unknown) GEN: no acute (units ( unknown) date) distress unknown) (unknown) (no (unknown) (unknown) Globulin 2.8 (units (u nknown) date) unknown) (unknown) (no (unknown) (unknown) Globulin 3.1 (units (u nknown) date) unknown) (unknown) (no (unknown) (unknown) Globulin (units (unkno wn) date) unknown) (unknown) (no (unknown) (unknown) Glucose 155 H D (units (unknown) date) unknown) (unknown) (no (unknown) (unknown) Glucose 206 H (units ( unknown) date) unknown) (unknown) (no (unknown) (unknown) Glucose 532 H* (units (unknown) date) unknown) (unknown) (no (unknown) (unknown) Glucose 731 H* (units (unknown) date) unknown) (unknown) (no (unknown) (unknown) Glucose (units (unkno wn) date) unknown) (unknown) (no (unknown) (unknown) Dalton Finn, (units (unknown) date) [Primary Care unknown) Provider] - 2 Weeks (unknown) (no (unknown) (unknown) HEENT: moist (units (u nknown) date) mucous membranes, unknown) PERRL (unknown) (no (unknown) (unknown) Hct 37.2 L (units (unk nown) date) unknown) (unknown) (no (unknown) (unknown) Hct 44.7 (units (unkno wn) date) unknown) (unknown) (no (unknown) (unknown) Hct (units (unkno wn) date) unknown) (unknown) (no (unknown) (unknown) He also notes some (units (unknown) date) left CP below his unknown) nipple which he says 'always happens when I (unknown) (no (unknown) (unknown) Hemoglobin A1c 9.5 (units (unknown) date) H unknown) (unknown) (no (unknown) (unknown) Hemoglobin A1c (units (unknown) date) unknown) (unknown) (no (unknown) (unknown) Hgb 12.8 L (units (unk nown) date) unknown) (unknown) (no (unknown) (unknown) Hgb 14.9 (units (unkno wn) date) unknown) (unknown) (no (unknown) (unknown) Hgb (units (unkno wn) date) unknown) (unknown) (no (unknown) (unknown) History of Present (units (unknown) date) Illness unknown) (unknown) (no (unknown) (unknown) Hospital Course (units (unknown) date) unknown) (unknown) (no (unknown) (unknown) 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 unknown) (unknown) (no (unknown) (unknown) [facility] (units (unknown) date) [address] unknown) [place] [address] (unknown) (no (unknown) (unknown) Ed Meredith is a (units (unknown) date) 56-year-old male unknown) with past medical history of type 1 diabetes (unknown) (no (unknown) (unknown) Ketones 6.46 H (units (unknown) date) unknown) (unknown) (no (unknown) (unknown) Ketones (units (unkno wn) date) unknown) (unknown) (no (unknown) (unknown) Laboratory Results (units (unknown) date) - last 24 hr unknown) (unknown) (no (unknown) (unknown) Labs (units (unkno wn) date) unknown) (unknown) (no (unknown) (unknown) Labs: (units (unkno wn) date) unknown) (unknown) (no (unknown) (unknown) Lipase 62 (units (unkn own) date) unknown) (unknown) (no (unknown) (unknown) Lipase (units (unkno wn) date) unknown) (unknown) (no (unknown) (unknown) Lymph # (Auto) (units (unknown) date) 1400 unknown) (unknown) (no (unknown) (unknown) Lymph # (Auto) 700 (units (unknown) date) L unknown) (unknown) (no (unknown) (unknown) Lymph # (Auto) (units (unknown) date) unknown) (unknown) (no (unknown) (unknown) Lymph % (Auto) (units (unknown) date) 12.5 L unknown) (unknown) (no (unknown) (unknown) Lymph % (Auto) 6.4 (units (unknown) date) L unknown) (unknown) (no (unknown) (unknown) Lymph % (Auto) (units (unknown) date) unknown) (unknown) (no (unknown) (unknown) MCH 29.6 (units (unkno wn) date) unknown) (unknown) (no (unknown) (unknown) MCH 29.7 (units (unkno wn) date) unknown) (unknown) (no (unknown) (unknown) MCH (units (unkno wn) date) unknown) (unknown) (no (unknown) (unknown) MCHC 33.3 (units (unkn own) date) unknown) (unknown) (no (unknown) (unknown) MCHC 34.4 (units (unkn own) date) unknown) (unknown) (no (unknown) (unknown) MCHC (units (unkno wn) date) unknown) (unknown) (no (unknown) (unknown) MCV 86.3 (units (unkno wn) date) unknown) (unknown) (no (unknown) (unknown) MCV 89.1 (units (unkno wn) date) unknown) (unknown) (no (unknown) (unknown) MCV (units (unkno wn) date) unknown) (unknown) (no (unknown) (unknown) Magnesium 1.8 (units ( unknown) date) unknown) (unknown) (no (unknown) (unknown) Magnesium (units (unkn own) date) unknown) (unknown) (no (unknown) (unknown) Rajesh Coles, (units (unknown) date) DO unknown) (unknown) (no (unknown) (unknown) Medical History (units (unknown) date) (Reviewed 05/27/22 unknown) @ 19:26 by Dalton Graff DO) (unknown) (no (unknown) (unknown) Dalton Finn, (units (unknown) date) unknown) (unknown) (no (unknown) (unknown) [place] # (Auto) 1000 (units (unknown) date) H unknown) (unknown) (no (unknown) (unknown) [place] # (Auto) 300 (units (unknown) date) unknown) (unknown) (no (unknown) (unknown) [place] # (Auto) (units ( unknown) date) unknown) (unknown) (no (unknown) (unknown) [place] % (Auto) 2.7 (units (unknown) date) L unknown) (unknown) (no (unknown) (unknown) [place] % (Auto) 9.0 (units (unknown) date) unknown) (unknown) (no (unknown) (unknown) [place] % (Auto) (units ( unknown) date) unknown) (unknown) (no (unknown) (unknown) NECK: trachea (units ( unknown) date) midline, no JVD unknown) (unknown) (no (unknown) (unknown) NEURO: awake, (units ( unknown) date) alert, oriented, no unknown) focal deficits (unknown) (no (unknown) (unknown) Narrative (units (unkn own) date) unknown) (unknown) (no (unknown) (unknown) Narrative: (units (unk nown) date) unknown) (unknown) (no (unknown) (unknown) Nasal Screen MRSA (units (unknown) date) (PCR) Not detected unknown) (unknown) (no (unknown) (unknown) Nasal Screen MRSA (units (unknown) date) (PCR) unknown) (unknown) (no (unknown) (unknown) Neut # (Auto) (units ( unknown) date) 11301 H unknown) (unknown) (no (unknown) (unknown) Neut # (Auto) 8900 (units (unknown) date) H unknown) (unknown) (no (unknown) (unknown) Neut # (Auto) (units ( unknown) date) unknown) (unknown) (no (unknown) (unknown) Neut % (Auto) 77.9 (units (unknown) date) H unknown) (unknown) (no (unknown) (unknown) Neut % (Auto) 90.3 (units (unknown) date) H unknown) (unknown) (no (unknown) (unknown) Neut % (Auto) (units ( unknown) date) unknown) (unknown) (no (unknown) (unknown) Objective (units (unkn own) date) unknown) (unknown) (no (unknown) (unknown) Oxygen Delivery (units (unknown) date) Method Room Air unknown) (unknown) (no (unknown) (unknown) Oxygen Delivery (units (unknown) date) Method unknown) (unknown) (no (unknown) (unknown) PFSH (units (unkno wn) date) unknown) (unknown) (no (unknown) (unknown) PULM: clear (units (un known) date) bilaterally unknown) (unknown) (no (unknown) (unknown) Patient Comments: (units (unknown) date) unknown) (unknown) (no (unknown) (unknown) Patient (units (unkno wn) date) Disposition: Home unknown) (unknown) (no (unknown) (unknown) Patient: (units (unkno wn) date) Ed Meredith MR#: unknown) [id number] (unknown) (no (unknown) (unknown) Phosphorus 3.6 (units (unknown) date) unknown) (unknown) (no (unknown) (unknown) Phosphorus (units (unk nown) date) unknown) (unknown) (no (unknown) (unknown) Plt Count 233 (units ( unknown) date) unknown) (unknown) (no (unknown) (unknown) Plt Count 243 (units ( unknown) date) unknown) (unknown) (no (unknown) (unknown) Plt Count (units (unkn own) date) unknown) (unknown) (no (unknown) (unknown) Potassium 3.9 (units ( unknown) date) unknown) (unknown) (no (unknown) (unknown) Potassium 4.4 (units ( unknown) date) unknown) (unknown) (no (unknown) (unknown) Potassium 5.0 (units ( unknown) date) unknown) (unknown) (no (unknown) (unknown) Potassium (units (unkn own) date) unknown) (unknown) (no (unknown) (unknown) Prescriptions: (units (unknown) date) unknown) (unknown) (no (unknown) (unknown) Primary Care (units (u nknown) date) Provider: unknown) Dalton Finn (unknown) (no (unknown) (unknown) Primary care (units (u nknown) date) physician: unknown) (unknown) (no (unknown) (unknown) Provider (units (unkno wn) date) unknown) (unknown) (no (unknown) (unknown) Provider: (units (unkn own) date) Rajesh Coles unknown) D.O. (unknown) (no (unknown) (unknown) Pulse Oximetry 100 (units (unknown) date) unknown) (unknown) (no (unknown) (unknown) Pulse Oximetry 97 (units (unknown) date) unknown) (unknown) (no (unknown) (unknown) Pulse Oximetry (units (unknown) date) unknown) (unknown) (no (unknown) (unknown) Pulse Rate 57 L 67 (units (unknown) date) unknown) (unknown) (no (unknown) (unknown) Pulse Rate 64 65 (units (unknown) date) 66 unknown) (unknown) (no (unknown) (unknown) Pulse Rate 65 81 (units (unknown) date) unknown) (unknown) (no (unknown) (unknown) Pulse Rate 66 64 (units (unknown) date) unknown) (unknown) (no (unknown) (unknown) Pulse Rate (units (unk nown) date) unknown) (unknown) (no (unknown) (unknown) Quality (units (unkno wn) date) unknown) (unknown) (no (unknown) (unknown) RBC 4.31 L (units (unk nown) date) unknown) (unknown) (no (unknown) (unknown) RBC 5.02 (units (unkno wn) date) unknown) (unknown) (no (unknown) (unknown) RBC (units (unkno wn) date) unknown) (unknown) (no (unknown) (unknown) RDW 13.3 (units (unkno wn) date) unknown) (unknown) (no (unknown) (unknown) RDW 13.7 (units (unkno wn) date) unknown) (unknown) (no (unknown) (unknown) RDW (units (unkno wn) date) unknown) (unknown) (no (unknown) (unknown) Reason For Exam: (units (unknown) date) recurrent DKA unknown) (unknown) (no (unknown) (unknown) Reason for (units (unk nown) date) consultation: unknown) 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 (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) (no (unknown) (unknown) Respiratory Rate (units (unknown) date) 16 19 unknown) (unknown) (no (unknown) (unknown) Respiratory Rate (units (unknown) date) 16 31 H unknown) (unknown) (no (unknown) (unknown) Respiratory Rate (units (unknown) date) 17 17 unknown) (unknown) (no (unknown) (unknown) Respiratory Rate (units (unknown) date) 17 18 20 unknown) (unknown) (no (unknown) (unknown) Respiratory Rate (units (unknown) date) unknown) (unknown) (no (unknown) (unknown) Rx Instructions: (units (unknown) date) unknown) (unknown) (no (unknown) (unknown) SARS-CoV-2 (PCR) (units (unknown) date) Negative unknown) (unknown) (no (unknown) (unknown) SARS-CoV-2 (PCR) (units (unknown) date) unknown) (unknown) (no (unknown) (unknown) See Rx (units (unkno wn) date) Instructions .ROUTE unknown) .COMPLEX Qty: 0 (unknown) (no (unknown) (unknown) Signed By: (units (unk nown) date) unknown) (unknown) (no (unknown) (unknown) Smoking Status: (units (unknown) date) Former smoker unknown) (unknown) (no (unknown) (unknown) Social History (units (unknown) date) (Reviewed 05/27/22 unknown) @ 19:26 by Dalton Graff DO) (unknown) (no (unknown) (unknown) Sodium 132 L (units (u nknown) date) unknown) (unknown) (no (unknown) (unknown) Sodium 134 L (units (u nknown) date) unknown) (unknown) (no (unknown) (unknown) Sodium 136 L (units (u nknown) date) unknown) (unknown) (no (unknown) (unknown) Sodium (units (unkno wn) date) unknown) (unknown) (no (unknown) (unknown) Stand Alone Forms: (units (unknown) date) Patient Portal/API, unknown) Stroke Signs + Symptoms (unknown) (no (unknown) (unknown) Summary (units (unkno wn) date) unknown) (unknown) (no (unknown) (unknown) TSH 2.80 (units (unkno wn) date) unknown) (unknown) (no (unknown) (unknown) TSH (units (unkno wn) date) unknown) (unknown) (no (unknown) (unknown) Temperature 98.2 F (units (unknown) date) unknown) (unknown) (no (unknown) (unknown) Temperature 98.8 F (units (unknown) date) unknown) (unknown) (no (unknown) (unknown) Temperature (units (un known) date) unknown) (unknown) (no (unknown) (unknown) Time Patient Seen: (units (unknown) date) 11:27 unknown) (unknown) (no (unknown) (unknown) Time Spent with (units (unknown) date) Patient unknown) (unknown) (no (unknown) (unknown) Time spent: (units (un known) date) Greater than 30 unknown) minutes (unknown) (no (unknown) (unknown) Total Bilirubin (units (unknown) date) 2.2 H unknown) (unknown) (no (unknown) (unknown) Total Bilirubin (units (unknown) date) 2.7 H unknown) (unknown) (no (unknown) (unknown) Total Bilirubin (units (unknown) date) unknown) (unknown) (no (unknown) (unknown) Total Creatine (units (unknown) date) Kinase 57 unknown) (unknown) (no (unknown) (unknown) Total Creatine (units (unknown) date) Kinase unknown) (unknown) (no (unknown) (unknown) Total Protein 6.9 (units (unknown) date) unknown) (unknown) (no (unknown) (unknown) Total Protein 7.8 (units (unknown) date) unknown) (unknown) (no (unknown) (unknown) Total Protein (units ( unknown) date) unknown) (unknown) (no (unknown) (unknown) Troponin I < 0.012 (units (unknown) date) unknown) (unknown) (no (unknown) (unknown) Troponin I (units (unk nown) date) unknown) (unknown) (no (unknown) (unknown) U Benzodiazepines (units (unknown) date) Scrn Negative unknown) (unknown) (no (unknown) (unknown) U Benzodiazepines (units (unknown) date) Scrn unknown) (unknown) (no (unknown) (unknown) U Marijuana (THC) (units (unknown) date) Screen Positive H unknown) (unknown) (no (unknown) (unknown) U Marijuana (THC) (units (unknown) date) Screen unknown) (unknown) (no (unknown) (unknown) U Methamphetamines (units (unknown) date) Scrn Negative unknown) (unknown) (no (unknown) (unknown) U Methamphetamines (units (unknown) date) Scrn unknown) (unknown) (no (unknown) (unknown) U Opiates 300ng/mL (units (unknown) date) cut Negative unknown) (unknown) (no (unknown) (unknown) U Opiates 300ng/mL (units (unknown) date) cut unknown) (unknown) (no (unknown) (unknown) U Tricyclic (units (un known) date) Antidepress unknown) Negative (unknown) (no (unknown) (unknown) U Tricyclic (units (un known) date) Antidepress unknown) (unknown) (no (unknown) (unknown) Ur Amphetamines (units (unknown) date) Screen Negative unknown) (unknown) (no (unknown) (unknown) Ur Amphetamines (units (unknown) date) Screen unknown) (unknown) (no (unknown) (unknown) Ur Barbiturates (units (unknown) date) Screen Negative unknown) (unknown) (no (unknown) (unknown) Ur Barbiturates (units (unknown) date) Screen unknown) (unknown) (no (unknown) (unknown) Ur Culture (units (unk nown) date) Indicated? Cult not unknown) indicated (unknown) (no (unknown) (unknown) Ur Culture (units (unk nown) date) Indicated? unknown) (unknown) (no (unknown) (unknown) Ur Leukocyte (units (u nknown) date) Esterase Negative unknown) (unknown) (no (unknown) (unknown) Ur Leukocyte (units (u nknown) date) Esterase unknown) (unknown) (no (unknown) (unknown) Ur MDMA Scrn (units (u nknown) date) (Ecstasy) Negative unknown) (unknown) (no (unknown) (unknown) Ur MDMA Scrn (units (u nknown) date) (Ecstasy) unknown) (unknown) (no (unknown) (unknown) Ur Oxycodone (units (u nknown) date) Screen Negative unknown) (unknown) (no (unknown) (unknown) Ur Oxycodone (units (u nknown) date) Screen unknown) (unknown) (no (unknown) (unknown) Ur Phencyclidine (units (unknown) date) Scrn Negative unknown) (unknown) (no (unknown) (unknown) Ur Phencyclidine (units (unknown) date) Scrn unknown) (unknown) (no (unknown) (unknown) Ur Specific (units (un known) date) [place] 1.010 unknown) (unknown) (no (unknown) (unknown) Ur Specific (units (un known) date) [place] unknown) (unknown) (no (unknown) (unknown) Urine Appearance (units (unknown) date) Clear unknown) (unknown) (no (unknown) (unknown) Urine Appearance (units (unknown) date) unknown) (unknown) (no (unknown) (unknown) Urine Bacteria (units (unknown) date) None seen unknown) (unknown) (no (unknown) (unknown) Urine Bacteria (units (unknown) date) unknown) (unknown) (no (unknown) (unknown) Urine Bilirubin (units (unknown) date) Negative unknown) (unknown) (no (unknown) (unknown) Urine Bilirubin (units (unknown) date) unknown) (unknown) (no (unknown) (unknown) Urine Cocaine (units ( unknown) date) Screen Negative unknown) (unknown) (no (unknown) (unknown) Urine Cocaine (units ( unknown) date) Screen unknown) (unknown) (no (unknown) (unknown) Urine Color Yellow (units (unknown) date) unknown) (unknown) (no (unknown) (unknown) Urine Color (units (un known) date) unknown) (unknown) (no (unknown) (unknown) Urine Glucose (UA) (units (unknown) date) 3+ H unknown) (unknown) (no (unknown) (unknown) Urine Glucose (UA) (units (unknown) date) unknown) (unknown) (no (unknown) (unknown) Urine Ketones 3+ H (units (unknown) date) unknown) (unknown) (no (unknown) (unknown) Urine Ketones (units ( unknown) date) unknown) (unknown) (no (unknown) (unknown) Urine Methadone (units (unknown) date) Screen Negative unknown) (unknown) (no (unknown) (unknown) Urine Methadone (units (unknown) date) Screen unknown) (unknown) (no (unknown) (unknown) Urine Nitrate (units ( unknown) date) Negative unknown) (unknown) (no (unknown) (unknown) Urine Nitrate (units ( unknown) date) unknown) (unknown) (no (unknown) (unknown) Urine Occult Blood (units (unknown) date) Negative unknown) (unknown) (no (unknown) (unknown) Urine Occult Blood (units (unknown) date) unknown) (unknown) (no (unknown) (unknown) Urine Protein (units ( unknown) date) Negative unknown) (unknown) (no (unknown) (unknown) Urine Protein (units ( unknown) date) unknown) (unknown) (no (unknown) (unknown) Urine RBC None (units (unknown) date) seen unknown) (unknown) (no (unknown) (unknown) Urine RBC (units (unkn own) date) unknown) (unknown) (no (unknown) (unknown) Urine Urobilinogen (units (unknown) date) 0.2 unknown) (unknown) (no (unknown) (unknown) Urine Urobilinogen (units (unknown) date) unknown) (unknown) (no (unknown) (unknown) Urine WBC None (units (unknown) date) seen unknown) (unknown) (no (unknown) (unknown) Urine WBC (units (unkn own) date) unknown) (unknown) (no (unknown) (unknown) Urine pH 6.0 (units (u nknown) date) unknown) (unknown) (no (unknown) (unknown) Urine pH (units (unkno wn) date) unknown) (unknown) (no (unknown) (unknown) VBG Base Excess (units (unknown) date) -11.0 L unknown) (unknown) (no (unknown) (unknown) VBG Base Excess (units (unknown) date) unknown) (unknown) (no (unknown) (unknown) VBG HCO3 15 L (units ( unknown) date) unknown) (unknown) (no (unknown) (unknown) VBG HCO3 (units (unkno wn) date) unknown) (unknown) (no (unknown) (unknown) VBG O2 Saturation (units (unknown) date) 46 L unknown) (unknown) (no (unknown) (unknown) VBG O2 Saturation (units (unknown) date) unknown) (unknown) (no (unknown) (unknown) VBG Total CO2 16 L (units (unknown) date) unknown) (unknown) (no (unknown) (unknown) VBG Total CO2 (units ( unknown) date) unknown) (unknown) (no (unknown) (unknown) VBG pCO2 26.7 L (units (unknown) date) unknown) (unknown) (no (unknown) (unknown) VBG pCO2 (units (unkno wn) date) unknown) (unknown) (no (unknown) (unknown) VBG pH 7.35 (units (un known) date) unknown) (unknown) (no (unknown) (unknown) VBG pH (units (unkno wn) date) unknown) (unknown) (no (unknown) (unknown) VBG pO2 26 L (units (u nknown) date) unknown) (unknown) (no (unknown) (unknown) VBG pO2 (units (unkno wn) date) unknown) (unknown) (no (unknown) (unknown) VTE (units (unkno wn) date) unknown) (unknown) (no (unknown) (unknown) Visit (units (unkno wn) date) Report/Discharge unknown) Packet (unknown) (no (unknown) (unknown) Vital Signs (units (un known) date) unknown) (unknown) (no (unknown) (unknown) WBC 11.2 H (units (unk nown) date) unknown) (unknown) (no (unknown) (unknown) WBC 11.4 H (units (unk nown) date) unknown) (unknown) (no (unknown) (unknown) WBC (units (unkno wn) date) unknown) (unknown) (no (unknown) (unknown) [Embedded Image (units (unknown) date) Not Available] unknown) (unknown) (no (unknown) (unknown) alcohol intake: (units (unknown) date) current unknown) (unknown) (no (unknown) (unknown) atorvastatin 40 mg (units (unknown) date) tablet unknown) (unknown) (no (unknown) (unknown) bicarb of 12. (units (u nknown) date) Patient states he unknown) woke up this morning feeling fine, then ate some (unknown) (no (unknown) (unknown) breakfast and (units ( unknown) date) noticed her BG of unknown) >400 so he bolused some insulin through his (unknown) (no (unknown) (unknown) currently on an (units (unknown) date) insulin drip and is unknown) asking for water and feels slightly hungry. (unknown) (no (unknown) (unknown) denies NV, SOB, (units (unknown) date) abd pain, dysuria unknown) or diarrhea. (unknown) (no (unknown) (unknown) denies any issues (units (unknown) date) with his insulin unknown) pump but says he noticed his roommates had (unknown) (no (unknown) (unknown) duloxetine 30 mg (units (unknown) date) Capsule, Delayed unknown) Rel Sprinkle (unknown) (no (unknown) (unknown) have DKA'. The CP (units (unknown) date) lasted a few hours unknown) then went away with treatment in the ED. He (unknown) (no (unknown) (unknown) household members: (units (unknown) date) spouse unknown) (unknown) (no (unknown) (unknown) insulin lispro (units (unknown) date) [Humalog U-100 unknown) Insulin] 100 UNIT/1 ML solution (unknown) (no (unknown) (unknown) insulin pump. He (units (unknown) date) then began to feel unknown) worse with diaphoresis so came to the ED. 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 (unknown) (no (unknown) (unknown) to stay above 45 (units (unknown) date) degrees. He also unknown) notes he has had a toothache for the past (unknown) (no (unknown) (unknown) toothache for 1 (units (unknown) date) week unknown) (unknown) (no (unknown) (unknown) turned down the (units (unknown) date) fridge temp so it unknown) was at 42 degrees and his insulin is supposed (unknown) (no (unknown) (unknown) week. Hasn't seen (units (unknown) date) a dentist due to unknown) his social security check being late. He is (unknown) (no (unknown) (unknown) with 3 DKA (units (unk nown) date) episodes in the unknown) past 6 months who presents with DKA. Anion gap 26, Result panel 310 (unknown) (no date) (unknown) (unknown) (no value) (units (un known) unknown) (unknown) (no date) (unknown) (unknown) NO GROWTH (units (unk nown) AFTER 24 unknown) HOURS Result panel 311 (unknown) (no date) (unknown) (unknown) No growth. (units (un known) unknown) Result panel 312 (unknown) (no date) (unknown) (unknown) (no value) (units (un known) unknown) (unknown) (no date) (unknown) (unknown) NO GROWTH (units (unk nown) AFTER 48 unknown) HOURS Result panel 313 (unknown) (no (unknown) (unknown) (no value) (units (unk nown) date) unknown) (unknown) (no (unknown) (unknown) # acute DKA (units (un known) date) unknown) (unknown) (no (unknown) (unknown) # toothache (units (un known) date) unknown) (unknown) (no (unknown) (unknown) # type 1 diabetes (units (unknown) date) unknown) (unknown) (no (unknown) (unknown) (past 8 hours): (units (unknown) date) unknown) (unknown) (no (unknown) (unknown) -A1c 9.5% (units (unkn own) date) unknown) (unknown) (no (unknown) (unknown) -blood sugar 731 on (units (unknown) date) admission, anion unknown) gap 26, bicarb 12, ketones positive at 6.46 (unknown) (no (unknown) (unknown) -continue Rocephin (units (unknown) date) and Flagyl unknown) (unknown) (no (unknown) (unknown) -dietitian (units (unk nown) date) consulted unknown) (unknown) (no (unknown) (unknown) -discharged on po (units (unknown) date) augmentin unknown) (unknown) (no (unknown) (unknown) -gap closed after (units (unknown) date) 24 hours and unknown) patient put back on home insulin, did well (unknown) (no (unknown) (unknown) -on insulin (units (un known) date) protocol unknown) (unknown) (no (unknown) (unknown) -unclear if he has (units (unknown) date) dental infection unknown) which triggered the DKA, as he is noticed a (unknown) (no (unknown) (unknown) 05/27/22 05/27/22 (units (unknown) date) 05/27/22 unknown) (unknown) (no (unknown) (unknown) 05/27/22 05/27/22 (units (unknown) date) 05/28/22 unknown) (unknown) (no (unknown) (unknown) 05/27/22 13:08 (units (unknown) date) unknown) (unknown) (no (unknown) (unknown) 05/27/22 17:37 (units (unknown) date) unknown) (unknown) (no (unknown) (unknown) 05/27/22 18:00 (units (unknown) date) unknown) (unknown) (no (unknown) (unknown) 05/27/22 18:02 (units (unknown) date) unknown) (unknown) (no (unknown) (unknown) 05/27/22 20:05 (units (unknown) date) unknown) (unknown) (no (unknown) (unknown) 05/28/22 04:20 (units (unknown) date) unknown) (unknown) (no (unknown) (unknown) 05/28/22 (units (unkno wn) date) unknown) (unknown) (no (unknown) (unknown) 05/29/22 1918 (units ( unknown) date) unknown) (unknown) (no (unknown) (unknown) 04:00 05/28/22 (units (unknown) date) unknown) (unknown) (no (unknown) (unknown) 04:19 (units (unkno wn) date) unknown) (unknown) (no (unknown) (unknown) 04:20 (units (unkno wn) date) unknown) (unknown) (no (unknown) (unknown) 06:00 05/28/22 (units (unknown) date) unknown) (unknown) (no (unknown) (unknown) 06:18 (units (unkno wn) date) unknown) (unknown) (no (unknown) (unknown) 06:30 05/28/22 (units (unknown) date) unknown) (unknown) (no (unknown) (unknown) 07:00 05/28/22 (units (unknown) date) unknown) (unknown) (no (unknown) (unknown) 07:00 (units (unkno wn) date) unknown) (unknown) (no (unknown) (unknown) 07:30 (units (unkno wn) date) unknown) (unknown) (no (unknown) (unknown) 08:00 05/28/22 (units (unknown) date) unknown) (unknown) (no (unknown) (unknown) 08:30 (units (unkno wn) date) unknown) (unknown) (no (unknown) (unknown) 1 tab PO BID 7 (units (unknown) date) Days Qty: 14 0RF unknown) (unknown) (no (unknown) (unknown) 12:55 13:50 13:50 (units (unknown) date) unknown) (unknown) (no (unknown) (unknown) 13:50 13:50 13:50 (units (unknown) date) unknown) (unknown) (no (unknown) (unknown) 14:15 14:40 14:40 (units (unknown) date) unknown) (unknown) (no (unknown) (unknown) 15:12 16:28 16:50 (units (unknown) date) unknown) (unknown) (no (unknown) (unknown) 20:00 22:05 04:20 (units (unknown) date) unknown) (unknown) (no (unknown) (unknown) 30 mg PO DAILY (units (unknown) date) unknown) (unknown) (no (unknown) (unknown) 40 mg PO BEDTIME (units (unknown) date) unknown) (unknown) (no (unknown) (unknown) 45 mg PO BEDTIME (units (unknown) date) unknown) (unknown) (no (unknown) (unknown) 6599 (units (unkno wn) date) unknown) (unknown) (no (unknown) (unknown) ABD: soft, (units (unk nown) date) nontender, unknown) nondistended, no organomegaly (unknown) (no (unknown) (unknown) ABG Base Excess (units (unknown) date) -15.0 L unknown) (unknown) (no (unknown) (unknown) ABG Base Excess (units (unknown) date) unknown) (unknown) (no (unknown) (unknown) ABG HCO3 12 L (units ( unknown) date) unknown) (unknown) (no (unknown) (unknown) ABG HCO3 (units (unkno wn) date) unknown) (unknown) (no (unknown) (unknown) ABG O2 Saturation (units (unknown) date) 97 unknown) (unknown) (no (unknown) (unknown) ABG O2 Saturation (units (unknown) date) unknown) (unknown) (no (unknown) (unknown) ABG Total CO2 12 L (units (unknown) date) unknown) (unknown) (no (unknown) (unknown) ABG Total CO2 (units ( unknown) date) unknown) (unknown) (no (unknown) (unknown) ABG pCO2 24.9 L* (units (unknown) date) unknown) (unknown) (no (unknown) (unknown) ABG pCO2 (units (unkno wn) date) unknown) (unknown) (no (unknown) (unknown) ABG pH 7.27 L* (units (unknown) date) unknown) (unknown) (no (unknown) (unknown) ABG pH (units (unkno wn) date) unknown) (unknown) (no (unknown) (unknown) ABG pO2 99 (units (unk nown) date) unknown) (unknown) (no (unknown) (unknown) ABG pO2 (units (unkno wn) date) unknown) (unknown) (no (unknown) (unknown) ALT 40 (units (unkno wn) date) unknown) (unknown) (no (unknown) (unknown) ALT 44 (units (unkno wn) date) unknown) (unknown) (no (unknown) (unknown) ALT (units (unkno wn) date) unknown) (unknown) (no (unknown) (unknown) AST 27 (units (unkno wn) date) unknown) (unknown) (no (unknown) (unknown) AST 30 (units (unkno wn) date) unknown) (unknown) (no (unknown) (unknown) AST (units (unkno wn) date) unknown) (unknown) (no (unknown) (unknown) Activity: as (units (u nknown) date) tolerated unknown) (unknown) (no (unknown) (unknown) Admitted for DKA (units (unknown) date) and improved after unknown) 24 hours on insulin drip. Unclear trigger (unknown) (no (unknown) (unknown) Age/Sex: 56 / M (units (unknown) date) unknown) (unknown) (no (unknown) (unknown) Albumin 4.1 (units (un known) date) unknown) (unknown) (no (unknown) (unknown) Albumin 4.7 (units (un known) date) unknown) (unknown) (no (unknown) (unknown) Albumin (units (unkno wn) date) unknown) (unknown) (no (unknown) (unknown) Albumin/Globulin (units (unknown) date) Ratio 1.5 unknown) (unknown) (no (unknown) (unknown) Albumin/Globulin (units (unknown) date) Ratio unknown) (unknown) (no (unknown) (unknown) Alkaline (units (unkno wn) date) Phosphatase 104 unknown) (unknown) (no (unknown) (unknown) Alkaline (units (unkno wn) date) Phosphatase 79 unknown) (unknown) (no (unknown) (unknown) Alkaline (units (unkno wn) date) Phosphatase unknown) (unknown) (no (unknown) (unknown) Amorphous Sediment (units (unknown) date) 1 unknown) (unknown) (no (unknown) (unknown) Amorphous Sediment (units (unknown) date) unknown) (unknown) (no (unknown) (unknown) BUN 22 H (units (unkno wn) date) unknown) (unknown) (no (unknown) (unknown) BUN 23 H (units (unkno wn) date) unknown) (unknown) (no (unknown) (unknown) BUN 24 H (units (unkno wn) date) unknown) (unknown) (no (unknown) (unknown) BUN (units (unkno wn) date) unknown) (unknown) (no (unknown) (unknown) BUN/Creatinine (units (unknown) date) Ratio 20.0 unknown) (unknown) (no (unknown) (unknown) BUN/Creatinine (units (unknown) date) Ratio 21.4 unknown) (unknown) (no (unknown) (unknown) BUN/Creatinine (units (unknown) date) Ratio 23.2 H unknown) (unknown) (no (unknown) (unknown) BUN/Creatinine (units (unknown) date) Ratio 24.2 H unknown) (unknown) (no (unknown) (unknown) BUN/Creatinine (units (unknown) date) Ratio unknown) (unknown) (no (unknown) (unknown) Baso # (Auto) 0 (units (unknown) date) unknown) (unknown) (no (unknown) (unknown) Baso # (Auto) 100 (units (unknown) date) unknown) (unknown) (no (unknown) (unknown) Baso # (Auto) (units ( unknown) date) unknown) (unknown) (no (unknown) (unknown) Baso % (Auto) 0.4 (units (unknown) date) unknown) (unknown) (no (unknown) (unknown) Baso % (Auto) 0.5 (units (unknown) date) unknown) (unknown) (no (unknown) (unknown) Baso % (Auto) (units ( unknown) date) unknown) (unknown) (no (unknown) (unknown) Blood Pressure (units (unknown) date) 114/63 unknown) (unknown) (no (unknown) (unknown) Blood Pressure (units (unknown) date) 120/60 unknown) (unknown) (no (unknown) (unknown) Blood Pressure (units (unknown) date) 125/61 unknown) (unknown) (no (unknown) (unknown) Blood Pressure (units (unknown) date) unknown) (unknown) (no (unknown) (unknown) CK-MB (CK-2) Rel (units (unknown) date) Index TNP unknown) (unknown) (no (unknown) (unknown) CK-MB (CK-2) Rel (units (unknown) date) Index unknown) (unknown) (no (unknown) (unknown) CK-MB (CK-2) TNP (units (unknown) date) unknown) (unknown) (no (unknown) (unknown) CK-MB (CK-2) (units (u nknown) date) unknown) (unknown) (no (unknown) (unknown) CV: regular rate (units (unknown) date) and rhythm, no unknown) murmurs (unknown) (no (unknown) (unknown) Calcium 8.1 L (units ( unknown) date) unknown) (unknown) (no (unknown) (unknown) Calcium 8.5 (units (un known) date) unknown) (unknown) (no (unknown) (unknown) Calcium 8.8 (units (un known) date) unknown) (unknown) (no (unknown) (unknown) Calcium 9.7 (units (un known) date) unknown) (unknown) (no (unknown) (unknown) Calcium (units (unkno wn) date) unknown) (unknown) (no (unknown) (unknown) Carbon Dioxide 12 (units (unknown) date) L unknown) (unknown) (no (unknown) (unknown) Carbon Dioxide 21 (units (unknown) date) L unknown) (unknown) (no (unknown) (unknown) Carbon Dioxide 22 (units (unknown) date) unknown) (unknown) (no (unknown) (unknown) Carbon Dioxide 8 (units (unknown) date) L* unknown) (unknown) (no (unknown) (unknown) Carbon Dioxide (units (unknown) date) unknown) (unknown) (no (unknown) (unknown) Chief complaint: (units (unknown) date) chest pain/ n+v/ unknown) high glucose (unknown) (no (unknown) (unknown) Chloride 103 (units (u nknown) date) unknown) (unknown) (no (unknown) (unknown) Chloride 105 (units (u nknown) date) unknown) (unknown) (no (unknown) (unknown) Chloride 106 (units (u nknown) date) unknown) (unknown) (no (unknown) (unknown) Chloride 94 L (units ( unknown) date) unknown) (unknown) (no (unknown) (unknown) Chloride (units (unkno wn) date) unknown) (unknown) (no (unknown) (unknown) Comment: (units (unkno wn) date) unknown) (unknown) (no (unknown) (unknown) Consult to (units (unk nown) date) Dietitian, Adult unknown) Routine (unknown) (no (unknown) (unknown) Consult to WORD PROCESSOR TECHNICIAN - (units (unknown) date) Program Technician unknown) Routine (unknown) (no (unknown) (unknown) Consult to WORD PROCESSOR TECHNICIAN - (units (unknown) date) Program Technician unknown) Stat (unknown) (no (unknown) (unknown) Consult to (units (unk nown) date) Tele-insurance account executive unknown) Routine (unknown) (no (unknown) (unknown) Consulting (units (unk nown) date) Provider: Intercept unknown) Tele-intensivists (unknown) (no (unknown) (unknown) Consults: (units (unkn own) date) unknown) (unknown) (no (unknown) (unknown) Continued (units (unkn own) date) unknown) (unknown) (no (unknown) (unknown) Creatinine 0.91 (units (unknown) date) unknown) (unknown) (no (unknown) (unknown) Creatinine 0.95 (units (unknown) date) unknown) (unknown) (no (unknown) (unknown) Creatinine 1.12 (units (unknown) date) unknown) (unknown) (no (unknown) (unknown) Creatinine 1.15 (units (unknown) date) unknown) (unknown) (no (unknown) (unknown) Creatinine (units (unk nown) date) unknown) (unknown) (no (unknown) (unknown) : 1965 (units (unknown) date) Acct:[id number] unknown) (unknown) (no (unknown) (unknown) Date Patient Seen: (units (unknown) date) 05/28/22 unknown) (unknown) (no (unknown) (unknown) Date of Service: (units (unknown) date) 05/27/22 unknown) (unknown) (no (unknown) (unknown) Date of admission: (units (unknown) date) unknown) (unknown) (no (unknown) (unknown) Deep Vein (units (unkn own) date) Thrombosis/Pulmonar unknown) y Embolism Present on Admission: No (unknown) (no (unknown) (unknown) Diet/Activity/Jessica (units (unknown) date) tments unknown) (unknown) (no (unknown) (unknown) Diet: (units (unkno wn) date) Carb-consistent/Clair unknown) betic (unknown) (no (unknown) (unknown) Discharge Data (units (unknown) date) unknown) (unknown) (no (unknown) (unknown) Discharge Date: (units (unknown) date) 05/28/22 unknown) (unknown) (no (unknown) (unknown) Discharge (units (unkn own) date) Diagnosis: unknown) (unknown) (no (unknown) (unknown) Discharge Plan (units (unknown) date) unknown) (unknown) (no (unknown) (unknown) Discharge (units (unkn own) date) Providers unknown) (unknown) (no (unknown) (unknown) Discharge Summary (units (unknown) date) unknown) (unknown) (no (unknown) (unknown) Discharge orders + (units (unknown) date) Medications unknown) (unknown) (no (unknown) (unknown) Discharge (units (unkn own) date) provider: unknown) (unknown) (no (unknown) (unknown) EXT: warm and well (units (unknown) date) perfused with no unknown) edema (unknown) (no (unknown) (unknown) Eos # (Auto) 0 (units (unknown) date) unknown) (unknown) (no (unknown) (unknown) Eos # (Auto) (units (u nknown) date) unknown) (unknown) (no (unknown) (unknown) Eos % (Auto) 0.1 L (units (unknown) date) unknown) (unknown) (no (unknown) (unknown) Eos % (Auto) 0.2 L (units (unknown) date) unknown) (unknown) (no (unknown) (unknown) Eos % (Auto) (units (u nknown) date) unknown) (unknown) (no (unknown) (unknown) Estimated GFR > 60 (units (unknown) date) unknown) (unknown) (no (unknown) (unknown) Estimated GFR (units ( unknown) date) unknown) (unknown) (no (unknown) (unknown) Ethyl Alcohol < 10 (units (unknown) date) unknown) (unknown) (no (unknown) (unknown) Ethyl Alcohol (units ( unknown) date) unknown) (unknown) (no (unknown) (unknown) Exam Narrative: (units (unknown) date) unknown) (unknown) (no (unknown) (unknown) Exam (units (unkno wn) date) unknown) (unknown) (no (unknown) (unknown) FiO2 21 (units (unkno wn) date) unknown) (unknown) (no (unknown) (unknown) FiO2 (units (unkno wn) date) unknown) (unknown) (no (unknown) (unknown) Follow (units (unkno wn) date) up/Referrals: unknown) (unknown) (no (unknown) (unknown) GEN: no acute (units ( unknown) date) distress unknown) (unknown) (no (unknown) (unknown) Globulin 2.8 (units (u nknown) date) unknown) (unknown) (no (unknown) (unknown) Globulin 3.1 (units (u nknown) date) unknown) (unknown) (no (unknown) (unknown) Globulin (units (unkno wn) date) unknown) (unknown) (no (unknown) (unknown) Glucose 155 H D (units (unknown) date) unknown) (unknown) (no (unknown) (unknown) Glucose 206 H (units ( unknown) date) unknown) (unknown) (no (unknown) (unknown) Glucose 532 H* (units (unknown) date) unknown) (unknown) (no (unknown) (unknown) Glucose 731 H* (units (unknown) date) unknown) (unknown) (no (unknown) (unknown) Glucose (units (unkno wn) date) unknown) (unknown) (no (unknown) (unknown) Dalton Finn, (units (unknown) date) [Primary Care unknown) Provider] - 2 Weeks (unknown) (no (unknown) (unknown) HEENT: moist (units (u nknown) date) mucous membranes, unknown) PERRL (unknown) (no (unknown) (unknown) Hct 37.2 L (units (unk nown) date) unknown) (unknown) (no (unknown) (unknown) Hct 44.7 (units (unkno wn) date) unknown) (unknown) (no (unknown) (unknown) Hct (units (unkno wn) date) unknown) (unknown) (no (unknown) (unknown) He also notes some (units (unknown) date) left CP below his unknown) nipple which he says 'always happens when I (unknown) (no (unknown) (unknown) Hemoglobin A1c 9.5 (units (unknown) date) H unknown) (unknown) (no (unknown) (unknown) Hemoglobin A1c (units (unknown) date) unknown) (unknown) (no (unknown) (unknown) Hgb 12.8 L (units (unk nown) date) unknown) (unknown) (no (unknown) (unknown) Hgb 14.9 (units (unkno wn) date) unknown) (unknown) (no (unknown) (unknown) Hgb (units (unkno wn) date) unknown) (unknown) (no (unknown) (unknown) History of Present (units (unknown) date) Illness unknown) (unknown) (no (unknown) (unknown) Hospital Course (units (unknown) date) unknown) (unknown) (no (unknown) (unknown) Hospital Course: (units (unknown) date) unknown) (unknown) (no (unknown) (unknown) 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 unknown) (unknown) (no (unknown) (unknown) [facility] (units (unknown) date) [address] [place] [address] unknown) [place] [address] (unknown) (no (unknown) (unknown) Ed Meredith is a (units (unknown) date) 56-year-old male unknown) with past medical history of type 1 diabetes (unknown) (no (unknown) (unknown) Ketones 6.46 H (units (unknown) date) unknown) (unknown) (no (unknown) (unknown) Ketones (units (unkno wn) date) unknown) (unknown) (no (unknown) (unknown) Laboratory Results (units (unknown) date) - last 24 hr unknown) (unknown) (no (unknown) (unknown) Labs (units (unkno wn) date) unknown) (unknown) (no (unknown) (unknown) Labs: (units (unkno wn) date) unknown) (unknown) (no (unknown) (unknown) Lipase 62 (units (unkn own) date) unknown) (unknown) (no (unknown) (unknown) Lipase (units (unkno wn) date) unknown) (unknown) (no (unknown) (unknown) Lymph # (Auto) (units (unknown) date) 1400 unknown) (unknown) (no (unknown) (unknown) Lymph # (Auto) 700 (units (unknown) date) L unknown) (unknown) (no (unknown) (unknown) Lymph # (Auto) (units (unknown) date) unknown) (unknown) (no (unknown) (unknown) Lymph % (Auto) (units (unknown) date) 12.5 L unknown) (unknown) (no (unknown) (unknown) Lymph % (Auto) 6.4 (units (unknown) date) L unknown) (unknown) (no (unknown) (unknown) Lymph % (Auto) (units (unknown) date) unknown) (unknown) (no (unknown) (unknown) MCH 29.6 (units (unkno wn) date) unknown) (unknown) (no (unknown) (unknown) MCH 29.7 (units (unkno wn) date) unknown) (unknown) (no (unknown) (unknown) MCH (units (unkno wn) date) unknown) (unknown) (no (unknown) (unknown) MCHC 33.3 (units (unkn own) date) unknown) (unknown) (no (unknown) (unknown) MCHC 34.4 (units (unkn own) date) unknown) (unknown) (no (unknown) (unknown) MCHC (units (unkno wn) date) unknown) (unknown) (no (unknown) (unknown) MCV 86.3 (units (unkno wn) date) unknown) (unknown) (no (unknown) (unknown) MCV 89.1 (units (unkno wn) date) unknown) (unknown) (no (unknown) (unknown) MCV (units (unkno wn) date) unknown) (unknown) (no (unknown) (unknown) Magnesium 1.8 (units ( unknown) date) unknown) (unknown) (no (unknown) (unknown) Magnesium (units (unkn own) date) unknown) (unknown) (no (unknown) (unknown) Rajesh Coles, (units (unknown) date) DO unknown) (unknown) (no (unknown) (unknown) Medical History (units (unknown) date) (Reviewed 05/27/22 unknown) @ 19:26 by Dalton Graff DO) (unknown) (no (unknown) (unknown) Dalton Finn, (units (unknown) date) unknown) (unknown) (no (unknown) (unknown) [place] # (Auto) 1000 (units (unknown) date) H unknown) (unknown) (no (unknown) (unknown) [place] # (Auto) 300 (units (unknown) date) unknown) (unknown) (no (unknown) (unknown) [place] # (Auto) (units ( unknown) date) unknown) (unknown) (no (unknown) (unknown) [place] % (Auto) 2.7 (units (unknown) date) L unknown) (unknown) (no (unknown) (unknown) [place] % (Auto) 9.0 (units (unknown) date) unknown) (unknown) (no (unknown) (unknown) [place] % (Auto) (units ( unknown) date) unknown) (unknown) (no (unknown) (unknown) NECK: trachea (units ( unknown) date) midline, no JVD unknown) (unknown) (no (unknown) (unknown) NEURO: awake, (units ( unknown) date) alert, oriented, no unknown) focal deficits (unknown) (no (unknown) (unknown) Narrative (units (unkn own) date) unknown) (unknown) (no (unknown) (unknown) Narrative: (units (unk nown) date) unknown) (unknown) (no (unknown) (unknown) Nasal Screen MRSA (units (unknown) date) (PCR) Not detected unknown) (unknown) (no (unknown) (unknown) Nasal Screen MRSA (units (unknown) date) (PCR) unknown) (unknown) (no (unknown) (unknown) Neut # (Auto) (units ( unknown) date) 51182 H unknown) (unknown) (no (unknown) (unknown) Neut # (Auto) 8900 (units (unknown) date) H unknown) (unknown) (no (unknown) (unknown) Neut # (Auto) (units ( unknown) date) unknown) (unknown) (no (unknown) (unknown) Neut % (Auto) 77.9 (units (unknown) date) H unknown) (unknown) (no (unknown) (unknown) Neut % (Auto) 90.3 (units (unknown) date) H unknown) (unknown) (no (unknown) (unknown) Neut % (Auto) (units ( unknown) date) unknown) (unknown) (no (unknown) (unknown) New (units (unkno wn) date) unknown) (unknown) (no (unknown) (unknown) Objective (units (unkn own) date) unknown) (unknown) (no (unknown) (unknown) Oxygen Delivery (units (unknown) date) Method Room Air unknown) (unknown) (no (unknown) (unknown) Oxygen Delivery (units (unknown) date) Method unknown) (unknown) (no (unknown) (unknown) PFSH (units (unkno wn) date) unknown) (unknown) (no (unknown) (unknown) PULM: clear (units (un known) date) bilaterally unknown) (unknown) (no (unknown) (unknown) Patient Comments: (units (unknown) date) unknown) (unknown) (no (unknown) (unknown) Patient (units (unkno wn) date) Disposition: Home unknown) (unknown) (no (unknown) (unknown) Patient: (units (unkno wn) date) Ed Meredith MR#: unknown) [id number] (unknown) (no (unknown) (unknown) Phosphorus 3.6 (units (unknown) date) unknown) (unknown) (no (unknown) (unknown) Phosphorus (units (unk nown) date) unknown) (unknown) (no (unknown) (unknown) Plt Count 233 (units ( unknown) date) unknown) (unknown) (no (unknown) (unknown) Plt Count 243 (units ( unknown) date) unknown) (unknown) (no (unknown) (unknown) Plt Count (units (unkn own) date) unknown) (unknown) (no (unknown) (unknown) Potassium 3.9 (units ( unknown) date) unknown) (unknown) (no (unknown) (unknown) Potassium 4.4 (units ( unknown) date) unknown) (unknown) (no (unknown) (unknown) Potassium 5.0 (units ( unknown) date) unknown) (unknown) (no (unknown) (unknown) Potassium (units (unkn own) date) unknown) (unknown) (no (unknown) (unknown) Prescriptions: (units (unknown) date) unknown) (unknown) (no (unknown) (unknown) Primary Care (units (u nknown) date) Provider: unknown) Dalton Finn (unknown) (no (unknown) (unknown) Primary care (units (u nknown) date) physician: unknown) (unknown) (no (unknown) (unknown) Provider Discharge (units (unknown) date) Comment: You unknown) presented with DKA which we reversed with an (unknown) (no (unknown) (unknown) Provider (units (unkno wn) date) unknown) (unknown) (no (unknown) (unknown) Provider: (units (unkn own) date) Rajesh Coles unknown) D.O. (unknown) (no (unknown) (unknown) Pulse Oximetry 100 (units (unknown) date) unknown) (unknown) (no (unknown) (unknown) Pulse Oximetry 97 (units (unknown) date) unknown) (unknown) (no (unknown) (unknown) Pulse Oximetry (units (unknown) date) unknown) (unknown) (no (unknown) (unknown) Pulse Rate 57 L 67 (units (unknown) date) unknown) (unknown) (no (unknown) (unknown) Pulse Rate 64 65 (units (unknown) date) 66 unknown) (unknown) (no (unknown) (unknown) Pulse Rate 65 81 (units (unknown) date) unknown) (unknown) (no (unknown) (unknown) Pulse Rate 66 64 (units (unknown) date) unknown) (unknown) (no (unknown) (unknown) Pulse Rate (units (unk nown) date) unknown) (unknown) (no (unknown) (unknown) Quality (units (unkno wn) date) unknown) (unknown) (no (unknown) (unknown) RBC 4.31 L (units (unk nown) date) unknown) (unknown) (no (unknown) (unknown) RBC 5.02 (units (unkno wn) date) unknown) (unknown) (no (unknown) (unknown) RBC (units (unkno wn) date) unknown) (unknown) (no (unknown) (unknown) RDW 13.3 (units (unkno wn) date) unknown) (unknown) (no (unknown) (unknown) RDW 13.7 (units (unkno wn) date) unknown) (unknown) (no (unknown) (unknown) RDW (units (unkno wn) date) unknown) (unknown) (no (unknown) (unknown) Reason For Exam: (units (unknown) date) recurrent DKA unknown) (unknown) (no (unknown) (unknown) Reason for (units (unk nown) date) consultation: unknown) 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 (unknown) (no (unknown) (unknown) Respiratory Rate (units (unknown) date) 16 19 unknown) (unknown) (no (unknown) (unknown) Respiratory Rate (units (unknown) date) 16 31 H unknown) (unknown) (no (unknown) (unknown) Respiratory Rate (units (unknown) date) 17 17 unknown) (unknown) (no (unknown) (unknown) Respiratory Rate (units (unknown) date) 17 18 20 unknown) (unknown) (no (unknown) (unknown) Respiratory Rate (units (unknown) date) unknown) (unknown) (no (unknown) (unknown) Rx Instructions: (units (unknown) date) unknown) (unknown) (no (unknown) (unknown) SARS-CoV-2 (PCR) (units (unknown) date) Negative unknown) (unknown) (no (unknown) (unknown) SARS-CoV-2 (PCR) (units (unknown) date) unknown) (unknown) (no (unknown) (unknown) See Rx (units (unkno wn) date) Instructions .ROUTE unknown) .COMPLEX Qty: 0 (unknown) (no (unknown) (unknown) Signed (units (unkno wn) date) By:<Electronically unknown) signed by Rajesh Coles D.O.> (unknown) (no (unknown) (unknown) Smoking Status: (units (unknown) date) Former smoker unknown) (unknown) (no (unknown) (unknown) Social History (units (unknown) date) (Reviewed 05/27/22 unknown) @ 19:26 by Dalton Graff DO) (unknown) (no (unknown) (unknown) Sodium 132 L (units (u nknown) date) unknown) (unknown) (no (unknown) (unknown) Sodium 134 L (units (u nknown) date) unknown) (unknown) (no (unknown) (unknown) Sodium 136 L (units (u nknown) date) unknown) (unknown) (no (unknown) (unknown) Sodium (units (unkno wn) date) unknown) (unknown) (no (unknown) (unknown) Stand Alone Forms: (units (unknown) date) Patient Portal/API, unknown) Stroke Signs + Symptoms (unknown) (no (unknown) (unknown) Summary (units (unkno wn) date) unknown) (unknown) (no (unknown) (unknown) TSH 2.80 (units (unkno wn) date) unknown) (unknown) (no (unknown) (unknown) TSH (units (unkno wn) date) unknown) (unknown) (no (unknown) (unknown) Temperature 98.2 F (units (unknown) date) unknown) (unknown) (no (unknown) (unknown) Temperature 98.8 F (units (unknown) date) unknown) (unknown) (no (unknown) (unknown) Temperature (units (un known) date) unknown) (unknown) (no (unknown) (unknown) Time Patient Seen: (units (unknown) date) 11:27 unknown) (unknown) (no (unknown) (unknown) Time Spent with (units (unknown) date) Patient unknown) (unknown) (no (unknown) (unknown) Time spent: (units (un known) date) Greater than 30 unknown) minutes (unknown) (no (unknown) (unknown) Total Bilirubin (units (unknown) date) 2.2 H unknown) (unknown) (no (unknown) (unknown) Total Bilirubin (units (unknown) date) 2.7 H unknown) (unknown) (no (unknown) (unknown) Total Bilirubin (units (unknown) date) unknown) (unknown) (no (unknown) (unknown) Total Creatine (units (unknown) date) Kinase 57 unknown) (unknown) (no (unknown) (unknown) Total Creatine (units (unknown) date) Kinase unknown) (unknown) (no (unknown) (unknown) Total Protein 6.9 (units (unknown) date) unknown) (unknown) (no (unknown) (unknown) Total Protein 7.8 (units (unknown) date) unknown) (unknown) (no (unknown) (unknown) Total Protein (units ( unknown) date) unknown) (unknown) (no (unknown) (unknown) Troponin I < 0.012 (units (unknown) date) unknown) (unknown) (no (unknown) (unknown) Troponin I (units (unk nown) date) unknown) (unknown) (no (unknown) (unknown) U Benzodiazepines (units (unknown) date) Scrn Negative unknown) (unknown) (no (unknown) (unknown) U Benzodiazepines (units (unknown) date) Scrn unknown) (unknown) (no (unknown) (unknown) U Marijuana (THC) (units (unknown) date) Screen Positive H unknown) (unknown) (no (unknown) (unknown) U Marijuana (THC) (units (unknown) date) Screen unknown) (unknown) (no (unknown) (unknown) U Methamphetamines (units (unknown) date) Scrn Negative unknown) (unknown) (no (unknown) (unknown) U Methamphetamines (units (unknown) date) Scrn unknown) (unknown) (no (unknown) (unknown) U Opiates 300ng/mL (units (unknown) date) cut Negative unknown) (unknown) (no (unknown) (unknown) U Opiates 300ng/mL (units (unknown) date) cut unknown) (unknown) (no (unknown) (unknown) U Tricyclic (units (un known) date) Antidepress unknown) Negative (unknown) (no (unknown) (unknown) U Tricyclic (units (un known) date) Antidepress unknown) (unknown) (no (unknown) (unknown) Ur Amphetamines (units (unknown) date) Screen Negative unknown) (unknown) (no (unknown) (unknown) Ur Amphetamines (units (unknown) date) Screen unknown) (unknown) (no (unknown) (unknown) Ur Barbiturates (units (unknown) date) Screen Negative unknown) (unknown) (no (unknown) (unknown) Ur Barbiturates (units (unknown) date) Screen unknown) (unknown) (no (unknown) (unknown) Ur Culture (units (unk nown) date) Indicated? Cult not unknown) indicated (unknown) (no (unknown) (unknown) Ur Culture (units (unk nown) date) Indicated? unknown) (unknown) (no (unknown) (unknown) Ur Leukocyte (units (u nknown) date) Esterase Negative unknown) (unknown) (no (unknown) (unknown) Ur Leukocyte (units (u nknown) date) Esterase unknown) (unknown) (no (unknown) (unknown) Ur MDMA Scrn (units (u nknown) date) (Ecstasy) Negative unknown) (unknown) (no (unknown) (unknown) Ur MDMA Scrn (units (u nknown) date) (Ecstasy) unknown) (unknown) (no (unknown) (unknown) Ur Oxycodone (units (u nknown) date) Screen Negative unknown) (unknown) (no (unknown) (unknown) Ur Oxycodone (units (u nknown) date) Screen unknown) (unknown) (no (unknown) (unknown) Ur Phencyclidine (units (unknown) date) Scrn Negative unknown) (unknown) (no (unknown) (unknown) Ur Phencyclidine (units (unknown) date) Scrn unknown) (unknown) (no (unknown) (unknown) Ur Specific (units (un known) date) [place] 1.010 unknown) (unknown) (no (unknown) (unknown) Ur Specific (units (un known) date) [place] unknown) (unknown) (no (unknown) (unknown) Urine Appearance (units (unknown) date) Clear unknown) (unknown) (no (unknown) (unknown) Urine Appearance (units (unknown) date) unknown) (unknown) (no (unknown) (unknown) Urine Bacteria (units (unknown) date) None seen unknown) (unknown) (no (unknown) (unknown) Urine Bacteria (units (unknown) date) unknown) (unknown) (no (unknown) (unknown) Urine Bilirubin (units (unknown) date) Negative unknown) (unknown) (no (unknown) (unknown) Urine Bilirubin (units (unknown) date) unknown) (unknown) (no (unknown) (unknown) Urine Cocaine (units ( unknown) date) Screen Negative unknown) (unknown) (no (unknown) (unknown) Urine Cocaine (units ( unknown) date) Screen unknown) (unknown) (no (unknown) (unknown) Urine Color Yellow (units (unknown) date) unknown) (unknown) (no (unknown) (unknown) Urine Color (units (un known) date) unknown) (unknown) (no (unknown) (unknown) Urine Glucose (UA) (units (unknown) date) 3+ H unknown) (unknown) (no (unknown) (unknown) Urine Glucose (UA) (units (unknown) date) unknown) (unknown) (no (unknown) (unknown) Urine Ketones 3+ H (units (unknown) date) unknown) (unknown) (no (unknown) (unknown) Urine Ketones (units ( unknown) date) unknown) (unknown) (no (unknown) (unknown) Urine Methadone (units (unknown) date) Screen Negative unknown) (unknown) (no (unknown) (unknown) Urine Methadone (units (unknown) date) Screen unknown) (unknown) (no (unknown) (unknown) Urine Nitrate (units ( unknown) date) Negative unknown) (unknown) (no (unknown) (unknown) Urine Nitrate (units ( unknown) date) unknown) (unknown) (no (unknown) (unknown) Urine Occult Blood (units (unknown) date) Negative unknown) (unknown) (no (unknown) (unknown) Urine Occult Blood (units (unknown) date) unknown) (unknown) (no (unknown) (unknown) Urine Protein (units ( unknown) date) Negative unknown) (unknown) (no (unknown) (unknown) Urine Protein (units ( unknown) date) unknown) (unknown) (no (unknown) (unknown) Urine RBC None (units (unknown) date) seen unknown) (unknown) (no (unknown) (unknown) Urine RBC (units (unkn own) date) unknown) (unknown) (no (unknown) (unknown) Urine Urobilinogen (units (unknown) date) 0.2 unknown) (unknown) (no (unknown) (unknown) Urine Urobilinogen (units (unknown) date) unknown) (unknown) (no (unknown) (unknown) Urine WBC None (units (unknown) date) seen unknown) (unknown) (no (unknown) (unknown) Urine WBC (units (unkn own) date) unknown) (unknown) (no (unknown) (unknown) Urine pH 6.0 (units (u nknown) date) unknown) (unknown) (no (unknown) (unknown) Urine pH (units (unkno wn) date) unknown) (unknown) (no (unknown) (unknown) VBG Base Excess (units (unknown) date) -11.0 L unknown) (unknown) (no (unknown) (unknown) VBG Base Excess (units (unknown) date) unknown) (unknown) (no (unknown) (unknown) VBG HCO3 15 L (units ( unknown) date) unknown) (unknown) (no (unknown) (unknown) VBG HCO3 (units (unkno wn) date) unknown) (unknown) (no (unknown) (unknown) VBG O2 Saturation (units (unknown) date) 46 L unknown) (unknown) (no (unknown) (unknown) VBG O2 Saturation (units (unknown) date) unknown) (unknown) (no (unknown) (unknown) VBG Total CO2 16 L (units (unknown) date) unknown) (unknown) (no (unknown) (unknown) VBG Total CO2 (units ( unknown) date) unknown) (unknown) (no (unknown) (unknown) VBG pCO2 26.7 L (units (unknown) date) unknown) (unknown) (no (unknown) (unknown) VBG pCO2 (units (unkno wn) date) unknown) (unknown) (no (unknown) (unknown) VBG pH 7.35 (units (un known) date) unknown) (unknown) (no (unknown) (unknown) VBG pH (units (unkno wn) date) unknown) (unknown) (no (unknown) (unknown) VBG pO2 26 L (units (u nknown) date) unknown) (unknown) (no (unknown) (unknown) VBG pO2 (units (unkno wn) date) unknown) (unknown) (no (unknown) (unknown) VTE (units (unkno wn) date) unknown) (unknown) (no (unknown) (unknown) Visit (units (unkno wn) date) Report/Discharge unknown) Packet (unknown) (no (unknown) (unknown) Vital Signs (units (un known) date) unknown) (unknown) (no (unknown) (unknown) WBC 11.2 H (units (unk nown) date) unknown) (unknown) (no (unknown) (unknown) WBC 11.4 H (units (unk nown) date) unknown) (unknown) (no (unknown) (unknown) WBC (units (unkno wn) date) unknown) (unknown) (no (unknown) (unknown) Will see dentist (units (unknown) date) as outpatient. unknown) (unknown) (no (unknown) (unknown) [Embedded Image (units (unknown) date) Not Available] unknown) (unknown) (no (unknown) (unknown) alcohol intake: (units (unknown) date) current unknown) (unknown) (no (unknown) (unknown) amoxicillin-pot (units (unknown) date) clavulanate 875-125 unknown) mg tablet (unknown) (no (unknown) (unknown) atorvastatin 40 mg (units (unknown) date) tablet unknown) (unknown) (no (unknown) (unknown) bicarb of 12. (units (u nknown) date) Patient states he unknown) woke up this morning feeling fine, then ate some (unknown) (no (unknown) (unknown) breakfast and (units ( unknown) date) noticed her BG of unknown) >400 so he bolused some insulin through his (unknown) (no (unknown) (unknown) but had a (units (unkn own) date) toothache for past unknown) week so put on abx to cover for dental infection. (unknown) (no (unknown) (unknown) currently on an (units (unknown) date) insulin drip and is unknown) asking for water and feels slightly hungry. (unknown) (no (unknown) (unknown) denies NV, SOB, (units (unknown) date) abd pain, dysuria unknown) or diarrhea. (unknown) (no (unknown) (unknown) denies any issues (units (unknown) date) with his insulin unknown) pump but says he noticed his roommates had (unknown) (no (unknown) (unknown) duloxetine 30 mg (units (unknown) date) Capsule, Delayed unknown) Rel Sprinkle (unknown) (no (unknown) (unknown) have DKA'. The CP (units (unknown) date) lasted a few hours unknown) then went away with treatment in the ED. He (unknown) (no (unknown) (unknown) household members: (units (unknown) date) spouse unknown) (unknown) (no (unknown) (unknown) insulin IV drip. (units (unknown) date) This may have unknown) started due to your toothache so I'm putting you (unknown) (no (unknown) (unknown) insulin lispro (units (unknown) date) [Humalog U-100 unknown) Insulin] 100 UNIT/1 ML solution (unknown) (no (unknown) (unknown) insulin pump. He (units (unknown) date) then began to feel unknown) worse with diaphoresis so came to the ED. He (unknown) (no (unknown) (unknown) mirtazapine 45 mg (units (unknown) date) tablet unknown) (unknown) (no (unknown) (unknown) on 1 week of oral (units (unknown) date) antibiotics and you unknown) should see a dentist. (unknown) (no (unknown) (unknown) per pump (units (unkno wn) date) unknown) (unknown) (no (unknown) (unknown) substance use (units ( unknown) date) type: does not use unknown) (unknown) (no (unknown) (unknown) take 1 tablet by (units (unknown) date) mouth at bedtime unknown) /// NEED TO DO LABWORK. (unknown) (no (unknown) (unknown) to stay above 45 (units (unknown) date) degrees. He also unknown) notes he has had a toothache for the past (unknown) (no (unknown) (unknown) toothache for 1 (units (unknown) date) week unknown) (unknown) (no (unknown) (unknown) turned down the (units (unknown) date) fridge temp so it unknown) was at 42 degrees and his insulin is supposed (unknown) (no (unknown) (unknown) week. Hasn't seen (units (unknown) date) a dentist due to unknown) his social security check being late. He is (unknown) (no (unknown) (unknown) with 3 DKA (units (unk nown) date) episodes in the unknown) past 6 months who presents with DKA. Anion gap 26, Result panel 314 (unknown) (no date) (unknown) (unknown) (no value) (units (un known) unknown) (unknown) (no date) (unknown) (unknown) NO GROWTH (units (unk nown) AFTER 72 unknown) HOURS Result panel 315 (unknown) (no date) (unknown) (unknown) (no value) (units (un known) unknown) (unknown) (no date) (unknown) (unknown) NO GROWTH (units (unk nown) AFTER 72 unknown) HOURS Result panel 316 (unknown) (no date) (unknown) (unknown) (no value) (units (un known) unknown) (unknown) (no date) (unknown) (unknown) NO GROWTH (units (unk nown) AFTER 4 DAYS unknown) Result panel 317 (unknown) (no date) (unknown) (unknown) Not Detected (units ( unknown) unknown) Result panel 318 (unknown) (no (unknown) (unknown) (no value) (units (unk nown) date) unknown) (unknown) (no (unknown) (unknown) GPBGram positive (units (unknown) date) bacilli unknown) (unknown) (no (unknown) (unknown) Gram positive (units ( unknown) date) bacilli unknown) (unknown) (no (unknown) (unknown) Identification (units (unknown) date) to follow unknown) (unknown) (no (unknown) (unknown) Isolated in (units (un known) date) Anaerobic Bottle unknown) only Result panel 319 (unknown) (no (unknown) (unknown) (no value) (units (unk nown) date) unknown) (unknown) (no (unknown) (unknown) DR LUZ (units (un known) date) unknown) (unknown) (no (unknown) (unknown) GPBGram positive (units (unknown) date) bacilli unknown) (unknown) (no (unknown) (unknown) Gram positive (units ( unknown) date) bacilli unknown) (unknown) (no (unknown) (unknown) Identification (units (unknown) date) to follow unknown) (unknown) (no (unknown) (unknown) Isolated in (units (un known) date) Anaerobic Bottle unknown) only Result panel 320 (unknown) (no date) (unknown) (unknown) (no value) (units (un known) unknown) (unknown) (no date) (unknown) (unknown) NO GROWTH (units (unk nown) AFTER 5 DAYS unknown) Result panel 321 (unknown) (no (unknown) (unknown) (no value) (units (unk nown) date) unknown) (unknown) (no (unknown) (unknown) DR LUZ (units (un known) date) unknown) (unknown) (no (unknown) (unknown) GPBGram positive (units (unknown) date) bacilli unknown) (unknown) (no (unknown) (unknown) Gram positive (units ( unknown) date) bacilli unknown) (unknown) (no (unknown) (unknown) Identification (units (unknown) date) to follow unknown) (unknown) (no (unknown) (unknown) Isolated in (units (un known) date) Anaerobic Bottle unknown) only Result panel 322 (unknown) (no (unknown) (unknown) (no value) (units (unk nown) date) unknown) (unknown) (no (unknown) (unknown) DR LUZ (units (un known) date) unknown) (unknown) (no (unknown) (unknown) Gram positive bacilli (un its (unknown) date) unknown) (unknown) (no (unknown) (unknown) Isolated in Anaerobic (un its (unknown) date) Bottle only unknown) (unknown) (no (unknown) (unknown) Only one blood culture (u nits (unknown) date) bottle positive; probable unkn own) (unknown) (no (unknown) (unknown) PROACNPropionibacterium ( units (unknown) date) acnes unknown) (unknown) (no (unknown) (unknown) contaminant. (units (u nknown) date) unknown) Result panel 323 (unknown) (no (unknown) (unknown) (no value) (units (unk nown) date) unknown) (unknown) (no (unknown) (unknown) DR LUZ (units (un known) date) unknown) (unknown) (no (unknown) (unknown) Gram positive bacilli (un its (unknown) date) unknown) (unknown) (no (unknown) (unknown) Isolated in Anaerobic (un its (unknown) date) Bottle only unknown) (unknown) (no (unknown) (unknown) PROACNPropionibacterium ( units (unknown) date) acnes unknown) Social History date description facility 2022-05-27 00:00 Ex-smoker ([facility] Vital Signs date measurement value units 2022-05-27 00:00 BMI 23.7 kg/m2 2022-05-27 00:00 BP_diastolic 62 mmHg 2022-05-27 00:00 BP_systolic 131 mmHg 2022-05-27 00:00 heart_rate 74 /min 2022-05-27 00:00 height_metric 187.96 cm 2022-05-27 00:00 height_standard 74 in 2022-05-27 00:00 o2_saturation 99 % 2022-05-27 00:00 respiration_rate 21 /min 2022-05-27 00:00 temperature_metric 36.39 C 2022-05-27 00:00 temperature_standard 97.5 F 2022-05-27 00:00 weight_metric 83.91 kg 2022-05-27 00:00 weight_metric 84.5 kg 2022-05-27 00:00 weight_standard 184.99 lb 2022-05-27 00:00 weight_standard 186.29 lb 2022-05-28 00:00 BP_diastolic 61 mmHg 2022-05-28 00:00 BP_systolic 125 mmHg 2022-05-28 00:00 heart_rate 67 /min 2022-05-28 00:00 o2_saturation 100 % 2022-05-28 00:00 respiration_rate 19 /min 2022-05-28 00:00 temperature_metric 36.78 C 2022-05-28 00:00 temperature_standard 98.2 F
[2022-06-12 11:59] LABS: BASOPHILS # (AUTO) 0.1 10^3/uL (0.0-0.1); BASOPHILS % (AUTO) 1.7 %; HCT - HEMATOCRIT 43.2 % (42.0-52.0); HGB - HEMOGLOBIN 14.1 g/dL (14.0-18.0); LYMPHOCYTES # (AUTO) 1.2 10^3/uL (1.5-3.5); MEAN CORPUSCULAR HEMOGLOBIN 29.4 pg (27.0-31.0); MEAN CORPUSCULAR HGB CONC 32.6 g/dL (32.0-36.0); MEAN CORPUSCULAR VOLUME 90.2 fL (80.0-94.0); MEAN PLATELET VOLUME 10.7 fL (7.4-11.4); MONOCYTES # (AUTO) 0.4 10^3/uL (0.0-1.0); MONOCYTES % (AUTO) 8.7 %; NEUTROPHILS # (AUTO) 2.5 10^3/uL (1.5-6.6); NEUTROPHILS % (AUTO) 59.4 %; PLT - PLATELET COUNT 241 10^3/uL (130-450); RED BLOOD COUNT 4.79 10^6/uL (4.70-6.10); RED CELL DISTRIBUTION WIDTH 13.2 % (12.0-15.0); WHITE BLOOD COUNT 4.1 x10^3/uL (4.8-10.8)
[2022-06-12 12:13] LABS: ALBUMIN 3.9 g/dL (3.2-5.5); ALBUMIN/GLOBULIN RATIO 1.4 (1.0-2.2); BILIRUBIN,TOTAL 0.6 mg/dL (0.2-1.0); CALCIUM 9.1 mg/dL (8.5-10.3); CREATININE 0.9 mg/dL (0.6-1.2); POTASSIUM 4.5 mmol/L (3.5-5.0); TOTAL PROTEIN 6.7 g/dL (6.7-8.2)
== END 2022-06-12 12:27 | disposition home or self-care (01) ==
LOC: ED 11:24
DX: E10.649 Type 1 diabetes mellitus with hypoglycemia without coma (principal); I10 Essential (primary) hypertension; E78.00 Pure hypercholesterolemia, unspecified; E03.9 Hypothyroidism, unspecified; F03.90 Unspecified dementia, unspecified severity, without behavioral disturbance, psychotic disturbance, mood disturbance, and anxiety; Z96.41 Presence of insulin pump (external) (internal); Z86.73 Personal history of transient ischemic attack (TIA), and cerebral infarction without residual deficits; Z79.899 Other long term (current) drug therapy; Z87.891 Personal history of nicotine dependence
CPT/HCPCS: 36415; 80053; 83690; 85025; 99283

== ENCOUNTER 2022-07-03 15:39 | Outpatient (CLI) | payer MEDICARE | END 2022-07-03 15:40 | disposition critical access hospital (66) | LOC: EMS 15:39 | DX: R07.9 Chest pain, unspecified (principal); M25.511 Pain in right shoulder; R11.0 Nausea; R42 Dizziness and giddiness; R61 Generalized hyperhidrosis | CPT/HCPCS: A0425; A0429 ==

== ENCOUNTER 2022-07-03 16:00 | Observation (INO) | payer MEDICARE ==
[2022-07-03 16:26] LABS: BASOPHILS # (AUTO) 0.1 10^3/uL (0.0-0.1); EOSINOPHILS % (AUTO) 0.8 %; HCT - HEMATOCRIT 42.6 % (42.0-52.0); HGB - HEMOGLOBIN 14.7 g/dL (14.0-18.0); LYMPHOCYTES # (AUTO) 1.2 10^3/uL (1.5-3.5); LYMPHOCYTES % (AUTO) 22.1 %; MEAN CORPUSCULAR HEMOGLOBIN 29.7 pg (27.0-31.0); MEAN CORPUSCULAR HGB CONC 34.5 g/dL (32.0-36.0); MEAN CORPUSCULAR VOLUME 86.1 fL (80.0-94.0); MEAN PLATELET VOLUME 11.4 fL (7.4-11.4); MONOCYTES # (AUTO) 0.7 10^3/uL (0.0-1.0); MONOCYTES % (AUTO) 13.7 %; NEUTROPHILS # (AUTO) 3.3 10^3/uL (1.5-6.6); NEUTROPHILS % (AUTO) 62.2 %; PLT - PLATELET COUNT 222 10^3/uL (130-450); RED BLOOD COUNT 4.95 10^6/uL (4.70-6.10); RED CELL DISTRIBUTION WIDTH 12.5 % (12.0-15.0); WHITE BLOOD COUNT 5.3 x10^3/uL (4.8-10.8)
[2022-07-03] MEDS ORDERED: ONDANSETRON 4 MG/2 ML VIAL IVP STA ×2 (16:27→18:22)
[2022-07-03] MEDS ORDERED: HYDROmorphone 1 MG/ML CARPUJECT IVP STA (16:27)
--- NOTE | 2022-07-03 16:28 | ED Physician Documentation ---
History of Present Illness - Stated complaint Stated Complaint: CHEST PX - Chief complaint Chief Complaint: Cardiac - Additonal information Additional information: 48-year-old male presents emergency department for evaluation of chest pain. He reports that when he is walking he feels dizzy and has substernal chest pressure. initial pain event lasted 15 minutes. now with any ambulation he is light headed and dizzy No fevers or vomiting. Chest pain does not radiate. pt feels "weak" and "fatigued." Patient is a type I diabetic who has an insulin pump as well as CGM in place. Reports that he was adjusting his pump last night when he fell asleep. He woke up and was unsure how long he had been without an insulin pump though currently his GCM shows a blood sugar of 136. No previous coronary cardiac disease. Does have history of dementia for which she is on donezepil. Does have a history of hypertension pt is a poor historian Review of Systems Constitutional: denies: Fever, Chills Cardiac: reports: Chest pain / pressure Respiratory: reports: Reviewed and negative GI: reports: Reviewed and negative : reports: Reviewed and negative Skin: reports: Reviewed and negative Musculoskeletal: reports: Reviewed and negative PD PAST MEDICAL HISTORY - Past Medical History Past Medical History: Yes Cardiovascular: Hypertension, High cholesterol, Arrhythmia, Other Respiratory: Pneumonia Neuro: Dementia, CVA, Fainting, Other Endocrine/Autoimmune: Type 1 diabetes, HyPOthyroidism GI: GERD, Ulcers, Colon polyps : Other HEENT: Other Psych: Depression, Anxiety, ADD/ADHD Musculoskeletal: Chronic back pain, Other Derm: None - Past Surgical History Past Surgical History: Yes General: Colonoscopy Ortho: Carpal Tunnel surgery, Other Cardiovascular: Other HEENT: Other - Present Medications Home Medications: Ambulatory Orders Medication Instructions Recorded Confirmed Atorvastatin Calcium [Lipitor] 80 mg PO QPM 05/30/21 07/03/22 Donepezil HCl [Aricept] 10 mg PO DAILY 05/30/21 07/03/22 Insulin Lispro [Humalog] 70 units DAILY 05/30/21 07/03/22 Mirtazapine 45 mg PO QPM 05/30/21 07/03/22 DULoxetine [Cymbalta] 30 mg PO DAILY 01/26/22 07/03/22 Tamsulosin [Flomax] 0.4 mg PO DAILY 01/26/22 07/03/22 Albuterol 2.5 mg INH Q4H PRN #30 ml 04/16/22 07/03/22 Albuterol Sulf [Ventolin Hfa 1 - 2 puffs INH Q4HR PRN #1 each 04/16/22 07/03/22 Inhaler] Losartan [Cozaar] 50 mg PO DAILY #30 tab 04/20/22 07/03/22 Lisdexamfetamine Dimesylate 10 mg PO DAILY 07/03/22 07/03/22 [Vyvanse] - Allergies Allergies/Adverse Reactions: Allergies Allergy/AdvReac Type Severity Reaction Status Date / Time omeprazole Allergy Intermediate Nausea Verified 07/03/22 16:11 insulin aspart Allergy Unknown Verified 07/03/22 16:11 [From Novolog U-100 Insulin aspart] insulin aspart protamine Allergy Unknown Verified 07/03/22 16:11 human [From Novolog Mix 70-30 U-100 Insuln] codeine AdvReac Severe Dizziness Verified 07/03/22 16:11 doxycycline AdvReac Intermediate Dizziness Verified 07/03/22 16:11 tarragon AdvReac Nausea Uncoded 07/03/22 16:11 - Social History Does the pt smoke?: No Smoking Status: Never smoker Does the pt drink ETOH?: No Does the pt have substance abuse?: Yes - Immunizations Immunizations are current?: Yes - POLST Patient has POLST: No POLST Status: Full Code PD ED PE NORMAL - General General: Alert and oriented X 3, No acute distress - HEENT HEENT: Atraumatic, Moist mucous membranes - Neck Neck: Supple, no meningeal sign - Cardiac Cardiac: RRR, No murmur, Strong equal pulses - Respiratory Respiratory: No respiratory distress, Clear bilaterally - Abdomen Abdomen: Normal bowel sounds, Soft - Back Back: No CVA TTP, No spinal TTP - Derm Derm: Normal color, Warm and dry, No rash - Extremities Extremities: No deformity - Neuro Neuro: Alert and oriented X 3 Eye Opening: Spontaneous Motor: Obeys Commands Verbal: Oriented GCS Score: 15 Results - Vitals Vitals: Vital Signs - 24 hr 07/03/22 07/03/22 07/03/22 16:06 16:44 17:18 Temperature 36.8 C Heart Rate 62 56 L 47 L Heart Rate [ Sitting] Heart Rate [ Standing] Heart Rate [ Supine] Respiratory 20 15 10 L Rate Blood Pressure 115/79 119/69 145/82 H Blood Pressure [Sitting] Blood Pressure [Standing] Blood Pressure [Supine] O2 Saturation 99 100 100 If not protocol 2 : Oxygen Flow, liters/minute 07/03/22 07/03/22 07/03/22 18:41 19:05 19:14 Temperature 36.9 C Heart Rate 57 L 43 L Heart Rate [ 108 H Sitting] Heart Rate [ 101 H Standing] Heart Rate [ 106 H Supine] Respiratory 14 11 L Rate Blood Pressure 160/83 H 160/83 H Blood Pressure 158/85 H [Sitting] Blood Pressure 133/84 H [Standing] Blood Pressure 148/87 H [Supine] O2 Saturation 100 100 If not protocol : Oxygen Flow, liters/minute 07/03/22 07/03/22 07/03/22 19:40 20:03 20:29 Temperature Heart Rate 42 L 47 L Heart Rate [ 63 Sitting] Heart Rate [ Standing] Heart Rate [ 45 L Supine] Respiratory 14 25 H Rate Blood Pressure 138/84 H 157/82 H Blood Pressure 161/96 H [Sitting] Blood Pressure [Standing] Blood Pressure 147/77 H [Supine] O2 Saturation 100 100 If not protocol : Oxygen Flow, liters/minute 07/03/22 20:56 Temperature Heart Rate 59 L Heart Rate [ Sitting] Heart Rate [ Standing] Heart Rate [ Supine] Respiratory 12 Rate Blood Pressure 158/69 H Blood Pressure [Sitting] Blood Pressure [Standing] Blood Pressure [Supine] O2 Saturation 99 If not protocol : Oxygen Flow, liters/minute Oxygen O2 Source [Without Activity] Room air O2 Source Room air - EKG (time done) 1602 EKG releavant findings:: EKG personally interpreted by author of this note. Relevant findings are: Rate: Rate (enter#) (59) Rhythm: NSR [place]: Normal Intervals: Normal LA QRS: Normal Ischemia: Normal ST segments Compare to prior EKG: Unchanged from prior EKG Computer interpretation: Agree with computer - Labs Labs: Laboratory Tests 07/03/22 07/03/22 07/03/22 16:15 16:15 16:15 WBC 5.3 RBC 4.95 Hgb 14.7 Hct 42.6 MCV 86.1 MCH 29.7 MCHC 34.5 RDW 12.5 Plt Count 222 MPV 11.4 Neut # (Auto) 3.3 Lymph # (Auto) 1.2 L [place] # (Auto) 0.7 Eos # (Auto) 0.0 Baso # (Auto) 0.1 Absolute Nucleated RBC 0.00 Nucleated RBC % 0.0 VBG pH VBG pCO2 VBG pO2 VBG HCO3 VBG Total CO2 VBG O2 Saturation VBG Base Excess Sodium 135 Potassium 3.4 L Chloride 99 L Carbon Dioxide 21 Anion Gap 15.0 H BUN 23 H Creatinine 1.1 Estimated GFR (MDRD) 69 L Glucose 123 H Calcium 9.2 Phosphorus Magnesium Total Bilirubin 1.1 H AST 20 ALT 18 Alkaline Phosphatase 61 Troponin I High Sens 2.5 B-Natriuretic Peptide Total Protein 7.1 Albumin 4.2 Globulin 2.9 Albumin/Globulin Ratio 1.4 Lipase 36 TSH Free T4 Nasal Adenovirus (PCR) Nasal B. parapertussis DNA (PCR) Nasal Coronavir 229E PCR Nasal Coronavir HKU1 PCR Nasal Coronavir NL63 PCR Nasal Coronavir OC43 PCR Nasal Enterovir/Rhinovir PCR Nasal Influenza B PCR Nasal Influenza A PCR Nasal Parainfluen 1 PCR Nasal Parainfluen 2 PCR Nasal Parainfluen 3 PCR Nasal Parainfluen 4 PCR Nasal RSV (PCR) Nasal B.pertussis DNA PCR Nasal C.pneumoniae (PCR) Sever[place] Human Metapneumo PCR Nasal M.pneumoniae (PCR) Nasal SARS-CoV-2 (PCR) Serum Ketones 07/03/22 07/03/22 07/03/22 16:15 16:15 17:28 WBC RBC Hgb Hct MCV MCH MCHC RDW Plt Count MPV Neut # (Auto) Lymph # (Auto) [place] # (Auto) Eos # (Auto) Baso # (Auto) Absolute Nucleated RBC Nucleated RBC % VBG pH VBG pCO2 VBG pO2 VBG HCO3 VBG Total CO2 VBG O2 Saturation VBG Base Excess Sodium Potassium Chloride Carbon Dioxide Anion Gap BUN Creatinine Estimated GFR (MDRD) Glucose Calcium Phosphorus Magnesium Total Bilirubin AST ALT Alkaline Phosphatase Troponin I High Sens 2.7 B-Natriuretic Peptide 35 Total Protein Albumin Globulin Albumin/Globulin Ratio Lipase TSH 4.38 Free T4 0.99 Nasal Adenovirus (PCR) Nasal B. parapertussis DNA (PCR) Nasal Coronavir 229E PCR Nasal Coronavir HKU1 PCR Nasal Coronavir NL63 PCR Nasal Coronavir OC43 PCR Nasal Enterovir/Rhinovir PCR Nasal Influenza B PCR Nasal Influenza A PCR Nasal Parainfluen 1 PCR Nasal Parainfluen 2 PCR Nasal Parainfluen 3 PCR Nasal Parainfluen 4 PCR Nasal RSV (PCR) Nasal B.pertussis DNA PCR Nasal C.pneumoniae (PCR) Severo Human Metapneumo PCR Nasal M.pneumoniae (PCR) Nasal SARS-CoV-2 (PCR) Serum Ketones 07/03/22 07/03/22 07/03/22 18:49 18:49 19:56 WBC RBC Hgb Hct MCV MCH MCHC RDW Plt Count MPV Neut # (Auto) Lymph # (Auto) [place] # (Auto) Eos # (Auto) Baso # (Auto) Absolute Nucleated RBC Nucleated RBC % VBG pH 7.454 H VBG pCO2 28.7 L VBG pO2 27.9 VBG HCO3 19.7 L VBG Total CO2 20.6 L VBG O2 Saturation 60.2 VBG Base Excess -2.8 L Sodium 136 Potassium 3.8 Chloride 102 Carbon Dioxide 22 Anion Gap 12.0 BUN 23 H Creatinine 1.0 Estimated GFR (MDRD) 77 L Glucose 115 H Calcium 8.7 Phosphorus 2.5 Magnesium 1.9 Total Bilirubin 0.9 AST 19 ALT 16 Alkaline Phosphatase 55 Troponin I High Sens B-Natriuretic Peptide Total Protein 6.6 L Albumin 3.9 Globulin 2.7 Albumin/Globulin Ratio 1.4 Lipase 35 TSH Free T4 Nasal Adenovirus (PCR) NOT DETECTED Nasal B. parapertussis DNA (PCR) NOT DETECTED Nasal Coronavir 229E PCR NOT DETECTED Nasal Coronavir HKU1 PCR NOT DETECTED Nasal Coronavir NL63 PCR DETECTED A Nasal Coronavir OC43 PCR NOT DETECTED Nasal Enterovir/Rhinovir PCR NOT DETECTED Nasal Influenza B PCR NOT DETECTED Nasal Influenza A PCR NOT DETECTED Nasal Parainfluen 1 PCR NOT DETECTED Nasal Parainfluen 2 PCR NOT DETECTED Nasal Parainfluen 3 PCR NOT DETECTED Nasal Parainfluen 4 PCR NOT DETECTED Nasal RSV (PCR) NOT DETECTED Nasal B.pertussis DNA PCR NOT DETECTED Nasal C.pneumoniae (PCR) NOT DETECTED Severo Human Metapneumo PCR NOT DETECTED Nasal M.pneumoniae (PCR) NOT DETECTED Nasal SARS-CoV-2 (PCR) NOT DETECTED Serum Ketones NEGATIVE - Rads (name of study) cxr Relevant Findings:: Final report received (No acute cardiopulmonary process) ct angio Relevant Findings:: Final report received (No pulmonary embolism. No acute airspace opacity. No pleural effusion.) ct head Relevant Findings:: Final report received (No acute intracranial abnormality) PD Medical Decision Making - ED course Complexity details: reviewed old records, reviewed results, re-evaluated patient, considered differential, d/w patient ED course: 56-year-old male who has a history of type 1 diabetes presents to the emergency department after he began to develop chest pain while walking at a local grocery store. He states he got chest pain and felt dizzy. He presented to the ER and at the time of initial presentation he still had some vague substernal sharp pain. It was not pleuritic. However he was breathing a little fast and endorsed nausea. With this he was administered 325 of aspirin and an EKG was obtained which was nonischemic. We romeo initial CBC, electrolytes and troponin. Per my interpretation no worrisome findings. He is mildly neutropenic but appears to be neutropenic on most of his labs. Troponin was negative. His blood chemistry revealed an anion gap of 15 but no CO2 elevation. He was administered a liter of fluid. After the initial troponin had resulted negative I reevaluated the patient. He reported that he continued to feel nauseated and dizzy. Stated he just "feels fatigued." When I tried to elicit the sensation of dizziness he said he just did not feel quite right though it was not that he was off balance or the room was spinning. He continued to be mildly tachypneic. His NIHSS is 0 I administered a second dose of Zofran for nausea which was not successful thus I then administered 10 mg of Reglan IV which did not seem to help. However given the tachypnea and the inability to stand without having labored breathing I included pulmonary embolism in my differential. A CT angiogram was subsequently completed and was negative for any findings of pulmonary embolism or acute airspace opacity. Subsequently we again attempted to do orthostatic blood pressures which patient did not tolerate. With the concern for possible developing DKA as causative for symptoms, I ordered repeat electrolytes, ketones and VBG. His ketones are negative, the mild anion gap previously present had closed. A VBG shows a base deficit of -3 with a mild respiratory alkalosis But he continues to endorse nausea and feeling generally unwell with any position changes and prefers to simply sleep. I did review her previous imaging for this patient and found that he had CT angiogram of the head and neck in 2019 that were without findings of significant ICA occlusion, stenosis or any aneurysm. It is not likely that this has changed markedly over the last few years. I have ordered a CT head to r/o acute ICH though hx does not suggest this 1999: On reevaluation the patient is now shaking and with rigors. RES PCR pending. I briefly spoke on the phone with Dr. Colmenares, a turnaround engineer at [facility] in [place]. I discussed the case that included some exertional chest pain with 2 negative troponins. He did not feel the patient warranted transfer for an emergent cath or stress test and this could be accomplished as an outpatient. 2029: Again attempted to sit the patient up to ambulate and he was unable to as he immediately began to get nauseated and start dry heaving. Thus I have ordered Compazine. At this juncture we have now tried 4 antiemetics without resolution of symptoms. Head CT does not show any acute intracranial findings. 2 high-sensitivity troponins are negative. Clinically the patient does not appear to be in DKA. As such I will ask for observation admission for the patient to the hospital for further management of the nausea. Can consider MRI imaging of the brain in the morning if not markedly improved. 2099: I spoke with telemetry hospitalist who has agreed to admit the patient for further evaluation of the persistent nausea. Departure - Departure Clinical Impression: History of type 1 diabetes mellitus, Nausea Chest pain Qualifiers: Chest pain type: unspecified Qualified Code(s): R07.9 - Chest pain, unspecified NIHSS - Time Time: 18:30 - Level of Consciousness Level of consciousness: (0) Alert, Keenly responsive LOC Questions: (0) Answers both Q's correct LOC Commands: (0) Performs both correctly - Gaze Best Gaze: (0) Normal - Visual Visual: (0) No loss - Facial Palsy Facial Palsy: (0) Normal, symmetrical movement - Motor Arms (both separate) Motor Arm (right): (0) No drift Motor Arm (left): (0) No drift - Motor Legs (both separate) Motor Leg (right): (0) No drift Motor Leg (left): (0) No drift - Limb Ataxia Limb Ataxia: (0) Absent - Sensory Sensory: (0) Normal - Best Language Best Language: (0) No aphasia - Dysarthria Dysarthria: (0) Normal - Extinction and Inattention (formally neg Extinction and inattention: (0) No abnormality - Total Score/Results Total Score/Result: 0
[2022-07-03] MEDS ORDERED: SODIUM CHLORIDE 0.9% 1,000 ML IV STA ×2 (16:29→18:21)
[2022-07-03] MEDS ORDERED: ASPIRIN CHEW 81 MG TABLET PO STA (16:30)
--- OUTSIDE RECORDS SUMMARY | 2022-07-03 16:31 | EXTERNAL MEDICAL SUMMARY RPT | Continuity of Care Document ---
:1965 Author Organization [facility] Address [address] [place] [address] Phone Care Team Providers Name Role Phone Unavailable Unavailable Unavailable Dalton Finn Unavailable Unavailable Allergies and Intolerances date description facility type (no date) Mild [facility] (unknown) (no date) codeine [facility] (unknown) (no date) doxycycline [facility] (unknown) (no date) insulin aspart [facility] (unknown) (no date) omeprazole [facility] (unknown) Encounters No information. Functional Status No information. Immunizations No information. Medications date description facility 2022-05-27 00:00 Duloxetine [facility] 2022-05-27 00:00 Mirtazapine [facility] 2022-05-28 00:00 Amoxicillin-Pot Clavulanate [facility] 2022-05-27 00:00 Atorvastatin [facility] Problems date description facility 2022-05-27 00:00 Heart failure [facility] 2022-05-27 00:00 Back pain [facility] 2022-05-27 00:00 Hypoxia [facility] 2022-05-28 06:27 Type 1 diabetes mellitus with [facility] 2022-05-28 07:18 [facility] 2022-05-28 09:15 Type 1 diabetes mellitus with [facility] without coma 2022-05-28 09:45 Type 1 diabetes mellitus with [facility] without coma 2022-05-28 11:06 Type 1 diabetes mellitus with [facility] without coma 2022-05-28 11:20 Type 1 diabetes mellitus with [facility] without coma 2022-05-28 11:42 Type [facility] 2022-05-28 13:05 Type [facility] 2022-05-29 07:56 Type 1 [facility] 2022-05-30 09:27 Type 1 diabetes mellitus with [facility] without coma Procedures date description facility 2022-05-27 [...] Result panel 276 (unknown) (no date) (unknown) [place] (no value) (units (unk nown) Hospital unknown) [...] date) unknown) (unknown) (no (unknown) (unknown) [address] [place] [address] (units (unknown) date) unknown) (unknown) (no (unknown) (unknown) [address] (units (unkno wn) date) unknown) (unknown) (no (unknown) (unknown) Accession Number: (units (unknown) date) [id number] unknown) (unknown) (no (unknown) (unknown) Age/Sex: 56 / M (units (unknown) date) Date of Service: unknown) (unknown) (no (unknown) (unknown) [place], [place] (units ( unknown) date) [address] unknown) (unknown) (no (unknown) (unknown) Approved by: (units (u nknown) date) Eris Beck M.D. on unknown) 05/27/2022 at 15:13 (unknown) (no (unknown) (unknown) Bones and chest (units (unknown) date) wall: No unknown) suspicious bony lesions. Overlying soft tissues (unknown) (no (unknown) (unknown) COMPARISON: (units (un known) date) [facility], unknown) CR, CHEST 1 VIEW, 06/20/2016, 20:50. (unknown) (no (unknown) (unknown) : 1965 (units (unknown) date) Acct:[id number] unknown) (unknown) (no (unknown) (unknown) Dictated by: (units (u nknown) date) Eris Beck M.D. on unknown) 05/27/2022 at 15:13 (unknown) (no (unknown) (unknown) FINDINGS: (units (unkn own) date) unknown) (unknown) (no (unknown) (unknown) IMPRESSION: No (units (unknown) date) acute unknown) cardiopulmonary disease. (unknown) (no (unknown) (unknown) INDICATIONS: (units (u nknown) date) chest pain unknown) (unknown) (no (unknown) (unknown) [facility] (units (unknown) date) unknown) (unknown) (no [...] (unknown) (unknown) Patient: (units (unkno wn) date) Avinash Meredith MR#: unknown) [id number] (unknown) (no (unknown) [...] Stat (unknown) (no (unknown) (unknown) Consult to FIREARMS MODEL MAKER - (units (unknown) date) Chemical Analytical Sampler unknown) Stat (unknown) (no (unknown) (unknown) Course (units (unkno wn) date) unknown) (unknown) (no (unknown) (unknown) : 1965 (units (unknown) date) Acct:[id number] unknown) (unknown) (no (unknown) (unknown) Date of [...] diabetes mellitus unknown) (unknown) (no (unknown) (unknown) [facility] (units (unknown) date) [address] unknown) [place] [address] (unknown) (no (unknown) (unknown) Ketones (units (unkno [...] (unknown) (unknown) Patient: (units (unkno wn) date) Avinash Meredith MR#: unknown) [id number] (unknown) (no (unknown) (unknown) Phosphorous Stat (units [...] (unkn own) (unknown) (no date) (unknown) (unknown) 87[address] /ul (unkn own) (unknown) (no date) (unknown) [...] (unknown) (unknown) COMPARISON:? (units (u nknown) date) [facility], unknown) CR, CHEST 1 VIEW, 06/20/2016, [...] Stat (unknown) (no (unknown) (unknown) Consult to FIREARMS MODEL MAKER - (units (unknown) date) Chemical Analytical Sampler unknown) Stat (unknown) (no (unknown) (unknown) Course (units (unkno wn) date) unknown) (unknown) (no (unknown) (unknown) Creatinine (units (unk nown) date) (0.66-1.25) mg/dL unknown) (unknown) (no (unknown) (unknown) Creatinine 1.12 (units (unknown) date) (0.66-1.25) mg/dL unknown) (unknown) (no (unknown) (unknown) Creatinine 1.15 (units (unknown) date) (0.66-1.25) mg/dL unknown) (unknown) (no (unknown) (unknown) : 1965 (units (unknown) date) Acct:[id number] unknown) (unknown) (no (unknown) (unknown) Date of [...] (unknown) date) unknown) (unknown) (no (unknown) (unknown) [facility] (units (unknown) date) [address] unknown) [place] [address] (unknown) (no (unknown) (unknown) Ketones (<0.27) (units [...] (unknown) Lymph # (Auto) (units (unknown) date) (8413-5541) /uL unknown) (unknown) (no (unknown) (unknown) Lymph # (Auto) 700 (units (unknown) date) L (5911-5557) /uL unknown) (unknown) (no (unknown) (unknown) Lymph [...] date) EMS unknown) (unknown) (no (unknown) (unknown) [place] # (Auto) (units ( unknown) date) (0-900) /uL unknown) (unknown) (no (unknown) (unknown) [place] # (Auto) 300 (units (unknown) date) (0-900) /uL unknown) (unknown) (no (unknown) (unknown) [place] % (Auto) (units ( unknown) date) (3-14) % unknown) (unknown) (no (unknown) (unknown) [place] % (Auto) 2.7 (units (unknown) date) L (3-14) % unknown) (unknown) (no (unknown) (unknown) Naloxone HCl (units (u nknown) date) (Naloxone 0.4 Mg/Ml unknown) Vial) 0.2 mg IV Q2MIN PRN (unknown) (no (unknown) (unknown) Neut # (Auto) (units ( unknown) date) (6040-1447) /uL unknown) (unknown) (no (unknown) (unknown) Neut # (Auto) (units ( unknown) date) 92947 H (5565-8783) unknown) /uL (unknown) (no (unknown) (unknown) Neut [...] (unknown) (unknown) Patient: (units (unkno wn) date) Avinash Meredith MR#: unknown) [id number] (unknown) (no (unknown) (unknown) Phosphorous Stat (units [...] (unknown) Ur Specific (units (un known) date) [place] unknown) (1.000-1.035) (unknown) (no (unknown) (unknown) Ur Specific (units (un known) date) [place] 1.010 unknown) (1.000-1.035) (unknown) (no (unknown) (unknown) [...] (unknown) (unknown) COMPARISON:? (units (u nknown) date) [facility], unknown) CR, CHEST 1 VIEW, 06/20/2016, [...] unknown) (unknown) (no (unknown) (unknown) Consult to FIREARMS MODEL MAKER - (units (unknown) date) Chemical Analytical Sampler unknown) Stat (unknown) (no (unknown) (unknown) Course [...] (unknown) (unknown) : 1965 (units (unknown) date) Acct:[id number] unknown) (unknown) (no (unknown) (unknown) Date of [...] moves all extremities (unknown) (no (unknown) (unknown) Mario coma scale (units (unknown) date) eye opening: unknown) Spontaneous (unknown) (no (unknown) (unknown) [place] coma scale (units (unknown) date) motor response: [...] (unknown) date) unknown) (unknown) (no (unknown) (unknown) [facility] (units (unknown) date) [address] unknown) [place] [address] (unknown) (no (unknown) (unknown) Ketones (<0.27) (units [...] (unknown) Lymph # (Auto) (units (unknown) date) (0096-4431) /uL unknown) (unknown) (no (unknown) (unknown) Lymph # (Auto) 700 (units (unknown) date) L (8267-3860) /uL unknown) (unknown) (no (unknown) (unknown) Lymph [...] date) EMS unknown) (unknown) (no (unknown) (unknown) [place] # (Auto) (units ( unknown) date) (0-900) /uL unknown) (unknown) (no (unknown) (unknown) [place] # (Auto) 300 (units (unknown) date) (0-900) /uL unknown) (unknown) (no (unknown) (unknown) [place] % (Auto) (units ( unknown) date) (3-14) % unknown) (unknown) (no (unknown) (unknown) [place] % (Auto) 2.7 (units (unknown) date) L (3-14) % unknown) (unknown) (no (unknown) (unknown) Naloxone HCl (units (u nknown) date) (Naloxone 0.4 Mg/Ml unknown) Vial) 0.2 mg IV Q2MIN PRN (unknown) (no (unknown) (unknown) Neuro (units (unkno wn) date) unknown) (unknown) (no (unknown) (unknown) Neut # (Auto) (units ( unknown) date) (0759-5618) /uL unknown) (unknown) (no (unknown) (unknown) Neut # (Auto) (units ( unknown) date) 48058 H (3678-6486) unknown) /uL (unknown) (no (unknown) (unknown) Neut [...] (unknown) (unknown) Patient: (units (unkno wn) date) Avinash Meredith MR#: unknown) [id number] (unknown) (no (unknown) (unknown) Phosphorous Stat (units [...] (unknown) Ur Specific (units (un known) date) [place] unknown) (1.000-1.035) (unknown) (no (unknown) (unknown) Ur Specific (units (un known) date) [place] 1.010 unknown) (1.000-1.035) (unknown) (no (unknown) (unknown) [...] (unknown) (unknown) : 1965 (units (unknown) date) Acct:[id number] unknown) (unknown) (no (unknown) (unknown) DVT prophylaxis [...] diabetes mellitus unknown) (unknown) (no (unknown) (unknown) [facility] (units (unknown) date) [address] unknown) [place] [address] (unknown) (no (unknown) (unknown) Avinash Meredith is a (units (unknown) date) 56-year-old [...] wn) date) unknown) (unknown) (no (unknown) (unknown) [place] # (Auto) 300 (units (unknown) date) unknown) (unknown) (no (unknown) (unknown) [place] # (Auto) (units ( unknown) date) unknown) (unknown) (no (unknown) (unknown) [place] % (Auto) 2.7 (units (unknown) date) L unknown) (unknown) (no (unknown) (unknown) [place] % (Auto) (units ( unknown) date) unknown) [...] Neut # (Auto) (units ( unknown) date) [address] H unknown) (unknown) (no (unknown) (unknown) Neut [...] (unknown) (unknown) Patient: (units (unkno wn) date) Avinash Meredith MR#: unknown) [id number] (unknown) (no (unknown) (unknown) Phosphorus 3.6 (units [...] (unknown) Ur Specific (units (un known) date) [place] 1.010 unknown) (unknown) (no (unknown) (unknown) Ur Specific (units (un known) date) [place] unknown) (unknown) (no (unknown) (unknown) Urine Appearance [...] Consent obtained (units (unknown) date) for unknown) tele-hand glove cleaner care: Yes (unknown) (no (unknown) (unknown) Consult [...] (unknown) (unknown) : 1965 (units (unknown) date) Acct:[id number] unknown) (unknown) (no (unknown) (unknown) Date of [...] diabetes mellitus unknown) (unknown) (no (unknown) (unknown) [facility] (units (unknown) date) [address] unknown) [place] [address] (unknown) (no (unknown) (unknown) Ketones 6.46 H [...] nknown) date) unknown) (unknown) (no (unknown) (unknown) [place] # (Auto) 300 (units (unknown) date) unknown) (unknown) (no (unknown) (unknown) [place] # (Auto) (units ( unknown) date) unknown) (unknown) (no (unknown) (unknown) [place] % (Auto) 2.7 (units (unknown) date) L unknown) (unknown) (no (unknown) (unknown) [place] % (Auto) (units ( unknown) date) unknown) (unknown) (no (unknown) (unknown) Myxredlin Drip (units (unknown) date) Premix IV 12 mls/hr unknown) (unknown) (no (unknown) (unknown) NOW PRN (units (unkno wn) date) Administration unknown) (unknown) (no (unknown) (unknown) Nausea And (units (unk nown) date) Vomiting unknown) (unknown) (no (unknown) (unknown) Neut # (Auto) (units ( unknown) date) 58620 H unknown) (unknown) (no (unknown) (unknown) Neut [...] (unknown) (unknown) Patient: (units (unkno wn) date) Avinash Meredith MR#: unknown) [id number] (unknown) (no (unknown) (unknown) Phosphorus 3.6 (units [...] (unknown) Ur Specific (units (un known) date) [place] 1.010 unknown) (unknown) (no (unknown) (unknown) Ur Specific (units (un known) date) [place] unknown) (unknown) (no (unknown) (unknown) Urine Appearance [...] (unknown) (unknown) : 1965 (units (unknown) date) Acct:[id number] unknown) (unknown) (no (unknown) (unknown) Date of (units (unkno wn) date) Service: unknown) 05/27/22 (unknown) (no (unknown) (unknown) Event Note (units (unk nown) date) (Rapid Response, unknown) Code, or fall): (unknown) (no (unknown) (unknown) Event Note (units (unk nown) date) unknown) (unknown) (no (unknown) (unknown) [facility] (units (unknown) date) [address] [place] [address] unknown) [place] [address] (unknown) (no (unknown) (unknown) Patient: (units (unkno wn) date) Avinash Meredith unknown) MR#: [id number] (unknown) (no (unknown) (unknown) Provider: (units (unkn own) date) Chris Johnson MD unknown) (unknown) (no (unknown) (unknown) Signed (units (unkno wn) date) By:<Electronical unknown) ly signed by Chirs Johnson MD> (unknown) (no (unknown) (unknown) intensity [...] (unknown) (unknown) : 1965 (units (unknown) date) Acct:[id number] unknown) (unknown) (no (unknown) (unknown) DVT prophylaxis [...] diabetes mellitus unknown) (unknown) (no (unknown) (unknown) [facility] (units (unknown) date) [address] unknown) [place] [address] (unknown) (no (unknown) (unknown) Ketones 6.46 H [...] Dalton Graff DO) (unknown) (no (unknown) (unknown) [place] # (Auto) 1000 (units (unknown) date) H unknown) (unknown) (no (unknown) (unknown) [place] # (Auto) 300 (units (unknown) date) unknown) (unknown) (no (unknown) (unknown) [place] # (Auto) (units ( unknown) date) unknown) (unknown) (no (unknown) (unknown) [place] % (Auto) 2.7 (units (unknown) date) L unknown) (unknown) (no (unknown) (unknown) [place] % (Auto) 9.0 (units (unknown) date) unknown) (unknown) (no (unknown) (unknown) [place] % (Auto) (units ( unknown) date) unknown) [...] Neut # (Auto) (units ( unknown) date) 98129 H unknown) (unknown) (no (unknown) (unknown) Neut [...] (unknown) (unknown) Patient: (units (unkno wn) date) Avinash Meredith MR#: unknown) [id number] (unknown) (no (unknown) (unknown) Phosphorus 3.6 (units [...] (unknown) Ur Specific (units (un known) date) [place] 1.010 unknown) (unknown) (no (unknown) (unknown) Ur Specific (units (un known) date) [place] unknown) (unknown) (no (unknown) (unknown) Urine Appearance [...] (unknown) (unknown) : 1965 (units (unknown) date) Acct:[id number] unknown) (unknown) (no (unknown) (unknown) DVT prophylaxis [...] diabetes mellitus unknown) (unknown) (no (unknown) (unknown) [facility] (units (unknown) date) [address] unknown) [place] [address] (unknown) (no (unknown) (unknown) Ketones 6.46 H [...] Dalton Graff DO) (unknown) (no (unknown) (unknown) [place] # (Auto) 1000 (units (unknown) date) H unknown) (unknown) (no (unknown) (unknown) [place] # (Auto) 300 (units (unknown) date) unknown) (unknown) (no (unknown) (unknown) [place] # (Auto) (units ( unknown) date) unknown) (unknown) (no (unknown) (unknown) [place] % (Auto) 2.7 (units (unknown) date) L unknown) (unknown) (no (unknown) (unknown) [place] % (Auto) 9.0 (units (unknown) date) unknown) (unknown) (no (unknown) (unknown) [place] % (Auto) (units ( unknown) date) unknown) [...] Neut # (Auto) (units ( unknown) date) 10457 H unknown) (unknown) (no (unknown) (unknown) Neut [...] (unknown) (unknown) Patient: (units (unkno wn) date) Avinash Meredith MR#: unknown) [id number] (unknown) (no (unknown) (unknown) Phosphorus 3.6 (units [...] (unknown) Ur Specific (units (un known) date) [place] 1.010 unknown) (unknown) (no (unknown) (unknown) Ur Specific (units (un known) date) [place] unknown) (unknown) (no (unknown) (unknown) Urine Appearance [...] Routine (unknown) (no (unknown) (unknown) Consult to FIREARMS MODEL MAKER - (units (unknown) date) Chemical Analytical Sampler unknown) Routine (unknown) (no (unknown) (unknown) Consult to FIREARMS MODEL MAKER - (units (unknown) date) Chemical Analytical Sampler unknown) Stat (unknown) (no (unknown) (unknown) Consult to (units (unk nown) date) Tele-hand glove cleaner unknown) Routine (unknown) (no (unknown) (unknown) Consulting [...] (unknown) (unknown) : 1965 (units (unknown) date) Acct:[id number] unknown) (unknown) (no (unknown) (unknown) Date Patient [...] diabetes mellitus unknown) (unknown) (no (unknown) (unknown) [facility] (units (unknown) date) [address] unknown) [place] [address] (unknown) (no (unknown) (unknown) Avinash Meredith is a (units (unknown) date) 56-year-old [...] (unknown) date) unknown) (unknown) (no (unknown) (unknown) [place] # (Auto) 1000 (units (unknown) date) H unknown) (unknown) (no (unknown) (unknown) [place] # (Auto) 300 (units (unknown) date) unknown) (unknown) (no (unknown) (unknown) [place] # (Auto) (units ( unknown) date) unknown) (unknown) (no (unknown) (unknown) [place] % (Auto) 2.7 (units (unknown) date) L unknown) (unknown) (no (unknown) (unknown) [place] % (Auto) 9.0 (units (unknown) date) unknown) (unknown) (no (unknown) (unknown) [place] % (Auto) (units ( unknown) date) unknown) [...] Neut # (Auto) (units ( unknown) date) 44483 H unknown) (unknown) (no (unknown) (unknown) Neut [...] (unknown) (unknown) Patient: (units (unkno wn) date) Avinash Meredith MR#: unknown) [id number] (unknown) (no (unknown) (unknown) Phosphorus 3.6 (units [...] for (units (unk nown) date) consultation: unknown) [employer] (unknown) (no (unknown) (unknown) Respiratory Rate [...] (unknown) Ur Specific (units (un known) date) [place] 1.010 unknown) (unknown) (no (unknown) (unknown) Ur Specific (units (un known) date) [place] unknown) (unknown) (no (unknown) (unknown) Urine Appearance [...] Routine (unknown) (no (unknown) (unknown) Consult to FIREARMS MODEL MAKER - (units (unknown) date) Chemical Analytical Sampler unknown) Routine (unknown) (no (unknown) (unknown) Consult to FIREARMS MODEL MAKER - (units (unknown) date) Chemical Analytical Sampler unknown) Stat (unknown) (no (unknown) (unknown) Consult to (units (unk nown) date) Tele-hand glove cleaner unknown) Routine (unknown) (no (unknown) (unknown) Consulting [...] (unknown) (unknown) : 1965 (units (unknown) date) Acct:[id number] unknown) (unknown) (no (unknown) (unknown) Date Patient [...] diabetes mellitus unknown) (unknown) (no (unknown) (unknown) [facility] (units (unknown) date) [address] [place] [address] unknown) [place] [address] (unknown) (no (unknown) (unknown) Avinash Meredith is a (units (unknown) date) 56-year-old [...] (unknown) date) unknown) (unknown) (no (unknown) (unknown) [place] # (Auto) 1000 (units (unknown) date) H unknown) (unknown) (no (unknown) (unknown) [place] # (Auto) 300 (units (unknown) date) unknown) (unknown) (no (unknown) (unknown) [place] # (Auto) (units ( unknown) date) unknown) (unknown) (no (unknown) (unknown) [place] % (Auto) 2.7 (units (unknown) date) L unknown) (unknown) (no (unknown) (unknown) [place] % (Auto) 9.0 (units (unknown) date) unknown) (unknown) (no (unknown) (unknown) [place] % (Auto) (units ( unknown) date) unknown) [...] Neut # (Auto) (units ( unknown) date) [address]6260 H unknown) (unknown) (no (unknown) (unknown) Neut [...] (unknown) (unknown) Patient: (units (unkno wn) date) Avinash Meredith MR#: unknown) [id number] (unknown) (no (unknown) (unknown) Phosphorus 3.6 (units [...] for (units (unk nown) date) consultation: unknown) [employer] (unknown) (no (unknown) (unknown) Respiratory Rate [...] (unknown) Ur Specific (units (un known) date) [place] 1.010 unknown) (unknown) (no (unknown) (unknown) Ur Specific (units (un known) date) [place] unknown) (unknown) (no (unknown) (unknown) Urine Appearance [...] History date description facility 2022-05-27 00:00 Ex-smoker ([facility] Vital Signs date measurement value units 2022-05-27 [...]
[2022-07-03 16:37] LABS: ALBUMIN 4.2 g/dL (3.2-5.5); ALBUMIN/GLOBULIN RATIO 1.4 (1.0-2.2); BILIRUBIN,TOTAL 1.1 mg/dL (0.2-1.0); CALCIUM 9.2 mg/dL (8.5-10.3); CREATININE 1.1 mg/dL (0.6-1.2); POTASSIUM 3.4 mmol/L (3.5-5.0); TOTAL PROTEIN 7.1 g/dL (6.7-8.2)
--- NOTE | 2022-07-03 17:07 | XRAY Report ---
PROCEDURE: Chest 1 View X-Ray INDICATIONS: Chest pain TECHNIQUE: One view of the chest was acquired. COMPARISON: 05/16/2022. FINDINGS: Surgical changes and devices: None. Lungs and pleura: No pleural effusions or pneumothorax. Lungs are clear. Mediastinum: Mediastinal contours appear normal. Heart size is normal. Bones and chest wall: No suspicious bony lesions. Overlying soft tissues appear unremarkable. IMPRESSION: No acute cardiopulmonary process. Reviewed by: Wellington Zhu MD on 07/03/2022 5:06 PM PDT Approved by: Wellington Zhu MD on 07/03/2022 5:06 PM PDT Station ID: [id number]
[2022-07-03] MEDS ORDERED: NITROGLYCERIN SL 0.4 MG TABLET SL STA (17:14)
[2022-07-03] MEDS ORDERED: iohexoL-300 100 ML VIAL ONE (17:49)
[2022-07-03] MEDS ORDERED: POTASSIUM CHLORIDE 20 MEQ TABLET PO STA (18:20)
[2022-07-03 18:54] LABS: VBG BASE EXCESS -2.8 mmol/L (-2 - +2); VBG HCO3 19.7 mmol/L (23-28); VBG PCO2 28.7 mmHg (41-51); VBG PH 7.454 (7.31-7.41); VBG PO2 27.9 mmHg (25-47); VBG TOTAL CO2 20.6 mmol/L (24-29)
[2022-07-03 18:55] LABS: VBG OXYGEN SATURATION 60.2 % (60-80)
[2022-07-03 19:02] LABS: KETONES, SERUM (ACETEST) NEGATIVE (NEGATIVE)
[2022-07-03] MEDS ORDERED: METOCLOPRAMIDE 10 MG/2 ML VIAL IVP STA (19:06)
[2022-07-03 19:09] LABS: ALBUMIN 3.9 g/dL (3.2-5.5); ALBUMIN/GLOBULIN RATIO 1.4 (1.0-2.2); ALKALINE PHOSPHATASE 55 IU/L (42-121); ALT ALANINE AMINOTRANSFERASE 16 IU/L (10-60); AST ASPARTATE AMINOTRANSFERASE 19 IU/L (10-42); BILIRUBIN,TOTAL 0.9 mg/dL (0.2-1.0); BUN - BLOOD UREA NITROGEN 23 mg/dL (6-20); CALCIUM 8.7 mg/dL (8.5-10.3); CARBON DIOXIDE - CO2 22 mmol/L (21-32); CHLORIDE 102 mmol/L (101-111); GFR - MDRD 77 (>89); GLUCOSE 115 mg/dL (70-100); LIPASE 35 U/L (22-51); MAGNESIUM 1.9 mg/dL (1.7-2.8); PHOSPHORUS 2.5 mg/dL (2.5-4.6); POTASSIUM 3.8 mmol/L (3.5-5.0); SODIUM 136 mmol/L (135-145); TOTAL PROTEIN 6.6 g/dL (6.7-8.2)
--- NOTE | 2022-07-03 19:10 | CT Report ---
PROCEDURE: ANGIO CHEST W/WO INDICATIONS: chest pain; SOA CONTRAST: 80mL Omni 300 TECHNIQUE: After the administration of intravenous contrast, 2 mm axial images were acquired from the pulmonary apices to the posterior costophrenic angles during the arterial phase. In addition, 1 mm lung kernel and 5 mm soft tissue kernel reconstructions were performed. 3-dimensional coronal oblique maximum int ensity projection (MIP) reformats, 8 mm axial MIP, and 5 mm coronal and sagittal MPR reformats were t hen performed through the thorax. For radiation dose reduction, the following was used: automated exp osure control, adjustment of mA and/or kV according to patient size. COMPARISON: CXR earlier today. CT abdomen pelvis 05/02/2022. FINDINGS: Image quality: Excellent. Large vessels: No filling defects within the opacified pulmonary arteries, accounting for motion and contrast timing. No evidence of acute aortic syndrome or aortic aneurysm. Lungs and pleura: No pleural effusions. No pneumothorax. No suspicious pulmonary nodules which requi re follow up. A few small calcified granulomas. Mediastinum: Heart size is normal. No pericardial effusions. No mediastinal adenopathy by size criter ia. Unremarkable thyroid gland. Chest wall and lower neck: Thyroid is unremarkable. No axillary or supraclavicular adenopathy by size . Bones: No aggressive osseous abnormality. L2 compression fracture unchanged. Prior right-sided rib fr actures. Upper Abdomen: Unremarkable. IMPRESSION: No pulmonary embolism. No acute airspace opacity. No pleural effusion. Reviewed by: Kervin Garcia MD on 07/03/2022 7:09 PM PDT Approved by: Kervin Garcai MD on 07/03/2022 7:09 PM PDT Station ID: [id number]
[2022-07-03 19:35] LABS: THYROID STIMULATING HORMONE 4.38 uIU/mL (0.34-5.60)
[2022-07-03 19:37] LABS: FREE T4 (FREE THYROXINE) 0.99 ng/dL (0.58-1.64)
[2022-07-03] MEDS ORDERED: PROCHLORPERAZINE 10 MG/2 ML VIAL IVP STA (20:28)
[2022-07-03] MEDS ORDERED: iohexoL-300 100 ML VIAL IVP ONE (20:30)
--- NOTE | 2022-07-03 20:33 | CT Report ---
PROCEDURE: HEAD WO INDICATIONS: dizzy TECHNIQUE: Noncontrast 4.5 mm thick angled axial sections acquired from the foramen magnum to the vertex. For r adiation dose reduction, the following was used: automated exposure control, adjustment of mA and/or kV according to patient size. COMPARISON: 03/19/2019 FINDINGS: Image quality: Good CSF spaces: Basal cisterns are patent. Lateral ventricles are symmetric. Volume: Minimal volume loss. Vascular calcifications are present. Brain: No intracranial hemorrhage. Mcdaniel-white differentiation is grossly maintained. Craniofacial structures: No displaced fracture. Sinuses are clear. Orbits are intact. IMPRESSION: No acute intracranial abnormality. If there is high concern for parenchymal pathology, consider furth er evaluation with MRI. Reviewed by: Itz Ponce MD on 07/03/2022 8:32 PM PDT Approved by: Itz Ponce MD on 07/03/2022 8:32 PM PDT Station ID: [id number]
[2022-07-03 20:54] LABS: B. PARAPERTUSSIS- RESP PCR PAN NOT DETECTED; B. PERTUSSIS- RESP PCR PANEL NOT DETECTED; C. PNEUMONIAE- RESP PCR PANEL NOT DETECTED; CORONAVIRUS 229E-RESP PCR NOT DETECTED; CORONAVIRUS HKU1-RESP PCR NOT DETECTED; CORONAVIRUS NL63-RESP PCR DETECTED; CORONAVIRUS OC43-RESP PCR NOT DETECTED; HUMAN METAPNEUMOVIRUS NOT DETECTED; INFLUENZA A- RESP PCR PANEL NOT DETECTED; INFLUENZA B - RESP PCR PANEL NOT DETECTED; M. PNEUMONIAE- RESP PCR PANEL NOT DETECTED; PARAINFLUENZA VIRUS 1 NOT DETECTED; PARAINFLUENZA VIRUS 2 NOT DETECTED; PARAINFLUENZA VIRUS 3 NOT DETECTED; PARAINFLUENZA VIRUS 4 NOT DETECTED; RHINOVIRUS/ENTEROVIRUS NOT DETECTED; RSV- RESP PCR PANEL NOT DETECTED; SARS-CoV-2 -RESP PCR PANEL NOT DETECTED
--- NOTE | 2022-07-03 21:08 | HISTORY & PHYSICAL EXAMINATION ---
Chief Complaint - Chief Complaint Chief Complaint: chest pain History of Present Illness - Admitted From Admitted From:: home - History of Present Illness HPI Comment/Other: Mr Meredith is a 56 yo M with hx DM I. Presents to ER with c/o cp while at grocery store. Substernal, non radiating, associated with dizziness and nausea. Received ASA 325 mg in ER, trop neg x 2. Subsequently developed ongoing nausea/vomiting with dizziness. NIHSS is 0. Received IV zofran, IV reglan and IV compazine. CTA neg for PE. Ongoing malaise, chills. Head CT neg. Denies ongoing cp, resolved within 45 min of onset, similar to prior episodes of cp/angina in the past but higher intensity pain 7/10. Denies palpitations, cough, sputum production, fevers, abd pain, diarrhea, constipation. Reports good appetite. Dizziness/nausea worse w activity. Cardiac w/u with loop monitor approx 8-9 months ago for tachycardia/angina per patient, uneventful. History - Past Medical History Cardiovascular: reports: Hypertension, High cholesterol, Arrhythmia, Other Respiratory: reports: Pneumonia Neuro: reports: Dementia, CVA, Fainting, Other Endocrine/Autoimmune: reports: Type 1 diabetes, HyPOthyroidism GI: reports: GERD, Ulcers, Colon polyps : reports: Other HEENT: reports: Other Psych: reports: Depression, Anxiety, ADD/ADHD Musculoskeletal: reports: Chronic back pain, Other Derm: reports: None MRSA Hx?: No - Past Surgical History General: reports: Colonoscopy Ortho: reports: Carpal Tunnel surgery, Other Cardiovascular: reports: Other HEENT: reports: Other - Family & Social History Family History: Other family: CAD, CVA/TIA Family History Comment/Other: States his father had a myocardial infarction in his early 30s and he also had a stroke. His maternal side has a strong history of cardiac disease and strokes as well. Living Situation: With spouse/s.o. Social History Notes: He lives at home with his spouse. He no longer smokes but did smoke a pack and half a day for about 13 years but quit in his 30s. He rarely drinks alcohol. 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 - Substance History Use: Uses substance without health or social issues: Cannabis - POLST Patient has POLST: No POLST Status: Full Code Meds/Allgy - Home Medications Home Medications: Ambulatory Orders Medication Instructions Recorded Confirmed Atorvastatin Calcium [Lipitor] 80 mg PO QPM 05/30/21 07/03/22 Donepezil HCl [Aricept] 10 mg PO DAILY 05/30/21 07/03/22 Insulin Lispro [Humalog] 70 units DAILY 05/30/21 07/03/22 Mirtazapine 45 mg PO QPM 05/30/21 07/03/22 DULoxetine [Cymbalta] 30 mg PO DAILY 01/26/22 07/03/22 Tamsulosin [Flomax] 0.4 mg PO DAILY 01/26/22 07/03/22 Albuterol 2.5 mg INH Q4H PRN #30 ml 04/16/22 07/03/22 Albuterol Sulf [Ventolin Hfa 1 - 2 puffs INH Q4HR PRN #1 each 04/16/22 07/03/22 Inhaler] Losartan [Cozaar] 50 mg PO DAILY #30 tab 04/20/22 07/03/22 Lisdexamfetamine Dimesylate 10 mg PO DAILY 07/03/22 07/03/22 [Vyvanse] - Allergies Allergies/Adverse Reactions: Allergies Allergy/AdvReac Type Severity Reaction Status Date / Time omeprazole Allergy Intermediate Nausea Verified 07/03/22 16:11 insulin aspart Allergy Unknown Verified 07/03/22 16:11 [From Novolog U-100 Insulin aspart] insulin aspart protamine Allergy Unknown Verified 07/03/22 16:11 human [From Novolog Mix 70-30 U-100 Insuln] codeine AdvReac Severe Dizziness Verified 07/03/22 16:11 doxycycline AdvReac Intermediate Dizziness Verified 07/03/22 16:11 tarragon AdvReac Nausea Uncoded 07/03/22 16:11 Review of Systems - Constitutional Constitutional: reports: Chills, Malaise - Eyes Eyes: denies: Pain - Ears, Nose & Throat Ears, Nose & Throat: denies: Ear pain, Hearing loss - Cardiovascular Cariovascular: reports: Chest pain (cp now resolved), Lightheadedness - Respiratory Respiratory: denies: Cough, Sputum production - Gastrointestinal Gastrointestinal: denies: Abdominal pain, Constipation, Diarrhea - Genitourinary Genitourinary: denies: Dysuria, Frequency - Musculoskeletal Musculoskeletal: denies: Muscle pain - Integumentary Integumentary: denies: Rash, Pruritis - Neurological Neurological: reports: General weakness. denies: Focal weakness - All Other Systems All Other Systems: reports: Reviewed and negative Exam - Vital Signs Reviewed Vital Signs: Yes Vital Signs: Vital Signs x48h Temp Pulse Pulse Pulse Pulse Resp BP 07/03/22 20:56 59 L 12 158/69 H 07/03/22 20:29 47 L 25 H 157/82 H 07/03/22 20:03 63 45 L 07/03/22 19:40 42 L 14 138/84 H 07/03/22 19:14 43 L 11 L 160/83 H 07/03/22 19:05 36.9 C 57 L 14 160/83 H 07/03/22 18:41 108 H 101 H 106 H 07/03/22 17:18 47 L 10 L 145/82 H 07/03/22 16:44 56 L 15 119/69 07/03/22 16:06 36.8 C 62 20 115/79 BP BP BP Pulse Ox O2 Flow Rate 07/03/22 20:56 99 07/03/22 20:29 100 07/03/22 20:03 161/96 H 147/77 H 07/03/22 19:40 100 07/03/22 19:14 100 07/03/22 19:05 100 07/03/22 18:41 158/85 H 133/84 H 148/87 H 07/03/22 17:18 100 2 07/03/22 16:44 100 07/03/22 16:06 99 - Physical Exam General Appearance: positive: No acute distress (appears fatiged, participates in conversation and answers questions appropriately), Alert Eyes Bilateral: positive: Normal inspection Neck: positive: Nml inspection Respiratory: positive: No respiratory distress Back: positive: Nml inspection Skin: positive: Color nml, No rash Extremities: positive: Full ROM Neurologic/Psychiatric: positive: Oriented x3, Motor nml Conclusion/Plan - Lab Results Lab results reviewed: Yes Fish Bones: 07/03/22 16:15 07/03/22 18:49 - Other Other Results/Comments: Assessment/Plan: Nausea, vomiting, dizziness -Etiology unclear -Positional, ?vertigo - meclizine PRN ordered -No signs of DKA on labs, repeat labs in a.m. -CT head neg, if sx persist consider MRI in a.m. -Antiemetics PRN -IV fluids -Diet as tolerated Chest pain, resolved -Atypical, nonradiating, substernal -Trop neg x 2 -Pt reports hx intermittent anginal sx, has had outpt work up -ER physician reviewed w cardiology, rec ongoing outpt work up DM I -Diabetic diet, SSI HTN -Continue home meds, orthostatic vitals in a.m. Hx depression, dementia, ADHD -Continue home meds, reviewed w patient HLD -Continue statin Full code DVT ppx: Lovenox sc Telemedicine Consult Details - Provider Location & Consult Time Telemedicine consultation conducted via videoconferencing?: Yes List names and roles of persons who participated in consult:: Urban Kang MD, Ed Meredith patient Telemedicine provider location:: [place]
[2022-07-03] MEDS ORDERED: ACETAMINOPHEN 325 MG TABLET PO PRN (21:38)
[2022-07-03] MEDS ORDERED: SODIUM CHLORIDE FLUSH 0.9% 10 ML SYRINGE IVP PRN (21:38)
[2022-07-03] MEDS ORDERED: ONDANSETRON 4 MG/2 ML VIAL IVP PRN (21:38)
[2022-07-03] MEDS ORDERED: MECLIZINE 12.5 MG TABLET PO PRN (21:51)
[2022-07-04] MEDS ORDERED: ALBUTEROL NEB 2.5 MG/3 ML INH PRN (00:52)
[2022-07-04] MEDS: SODIUM CHLORIDE FLUSH 0.9% 10 ML SYRINGE IVP SCH ×2 (00:57→08:11)
[2022-07-04] MEDS: SODIUM CHLORIDE 0.9% 1,000 ML IV SCH ×2 (00:57→11:55)
[2022-07-04 05:52] LABS: CALCIUM 8.3 mg/dL (8.5-10.3); POTASSIUM 3.8 mmol/L (3.5-5.0)
[2022-07-04] MEDS ORDERED: INSULIN LISPRO 300 UNIT/3 ML PEN SUBQ SCH (08:00)
[2022-07-04] MEDS ORDERED: DULoxetine 30 MG CAPSULE PO SCH (09:00)
[2022-07-04] MEDS ORDERED: LOSARTAN 50 MG TABLET PO SCH ×2 (09:00→10:38)
[2022-07-04] MEDS ORDERED: ENOXAPARIN 40 MG/0.4 ML SYRINGE SUBQ SCH (09:00)
[2022-07-04] MEDS ORDERED: TAMSULOSIN 0.4 MG CAPSULE PO SCH (09:00)
[2022-07-04] MEDS ORDERED: DONEPEZIL 5 MG TABLET PO SCH (09:00)
[2022-07-04] MEDS ORDERED: LISDEXAMFETAMINE DIMESYLATE 10 MG PO SCH (09:00)
[2022-07-04 11:50] VITALS: BP 137/76
[2022-07-04] MEDS ORDERED: LOSARTAN 50 MG TABLET PO ONE (13:00)
--- NOTE | 2022-07-04 13:39 | PHARMACY PROGRESS NOTE ---
- Best Possible Medication History Admit Date and Time: 07/03/222137 Processed by: Pharmacy Medication History completed: Yes Patient Interview: Completed Secondary Source(s): Insurance records (pt states he uses the inhaler a couple times a day and the nebulizer a couple times a week.) As the person ultimately responsible for medication therapy, providers are able to order a medication from an existing home medication list in [facility] via the "Reconcile Routine" prior to Confirmation of that medication by manager decision support. Such practice is discouraged except when the physician, in their clinical judgment, deems that a medical need exists for a medication without regard to previous use.
--- NOTE | 2022-07-04 13:56 | Discharge Plan ---
Discharge Plan Problem Reviewed?: Yes Disposition: Home, Self Care Condition: Stable Diet: Diabetic Activity Restrictions: Activity as Tolerated Health Concerns: You were hospitalized because of chest pain that stopped, then you had recurrent nausea and vomiting. Evaluation showed that you did catch a virus and maybe that caused the nausea and vomiting and dizziness. You are being discharged home today since the symptoms have all resolved. Please resume all your usual pre-hospital medications and management. Plan of Treatment: Resume all your usual medications and diabetic management. Remember to keep all your appointments to your different caregivers (Diabetic, Neurology, Primary Care). Care Goals: Improvement in symptoms and stabilization are the goals. Assessment: These instructions are given to you for a reminder. Additional Instructions or Follow Up instructions: If you have new or worsening symptoms, first call your Primary Care Provider for advice, or come to the ER. No Smoking: If you smoke, Please STOP! Call for help. Follow-up with: Zackary Dean MD [Provider Admit Priv/Credential] -
--- NOTE | 2022-07-04 13:59 | DISCHARGE SUMMARY ---
Discharge Summary Admit Date: 07/03/22 Discharge Date: 07/04/22 Discharging Provider: Dr Kate Zuniga Primary Care Provider: Dr Zackary Dean Condition at Discharge: Stable Discharge Disposition: 01 Home, Self Care - HPI History of Present Illness: Mr Meredith is a 56 yo WM with hx DM Type 1 on an Insulin pump, prior CVA and has vascular dementia. He presents to ER with c/o chest pain while shopping at grocery store. Substernal, non radiating, associated with dizziness and nausea. Received ASA 325 mg in ER, trop neg x 2. Subsequently developed ongoing nausea/vomiting with dizziness. NIHSS is 0. Received IV zofran, IV reglan and IV compazine. CTA neg for PE. Ongoing malaise, chills but no fever. Head CT neg. Denies anymore recurrent cp, resolved within 45 min of onset, it was similar to prior episodes of cp/angina in the past but higher intensity pain /10. Cardiac w/u with loop monitor approx 8-9 months ago for tachycardia/angina per patient, uneventful. He denies palpitations, cough, sputum production, fevers, abd pain, diarrhea, constipation. Reports good appetite. Dizziness/nausea worse w activity in ER. He will be placed in Observation for symptomatic management and further evaluation. - HOSPITAL COURSE Hospital Course: 1) Nausea, vomiting Etiology unclear, was felt to possibly be positional vertigo so meclizine PRN was ordered. He had no signs of DKA on labs and CT head was neg. He was ordered to get antiemetics PRN and iv fluids. But his sx resolved by the next dday, he was able to eat and drink and was discharged. 2) Viral syndrome His respiratory nasal swab PCR was positive for coronavirus and 631, this may have caused the chest pain that stopped, then the recurrent nausea and vomiting. By the follwing day, symptoms had all resolved and he was discharged home. 3) Chest pain This was atypical pain for angina, nonradiating, but substernal. His Troponins were neg x 2. Patient reported a history of intermittent anginal symptoms for which he has had outpt work up. The ER physician reviewed his case with Cardiology, who recommended ongoing work up as an outpatient. 4) DM, Type 1 We kept him on a Diabetic diet, Sliding scale Insulin was ordered, but he was kept on his usual Insuin pump management. Loan Counselor gave advice. 5) HTN He was continued on home meds. His orthostatic vitals were normal. 6) Vascular dementia According to old records he has this and ADHD. We continue home meds 7) Hyperlipidemia We continued his statin - ALLERGIES Allergies/Adverse Reactions: Allergies Allergy/AdvReac Type Severity Reaction Status Date / Time omeprazole Allergy Intermediate Nausea Verified 07/03/22 16:11 insulin aspart Allergy Unknown Verified 07/03/22 16:11 [From Novolog U-100 Insulin aspart] insulin aspart protamine Allergy Unknown Verified 07/03/22 16:11 human [From Novolog Mix 70-30 U-100 Insuln] codeine AdvReac Severe Dizziness Verified 07/03/22 16:11 doxycycline AdvReac Intermediate Dizziness Verified 07/03/22 16:11 tarragon AdvReac Nausea Uncoded 07/03/22 16:11 - MEDICATIONS Home Medications: Ambulatory Orders Medication Instructions Recorded Confirmed Atorvastatin Calcium [Lipitor] 80 mg PO QPM 05/30/21 07/03/22 Donepezil HCl [Aricept] 10 mg PO DAILY 05/30/21 07/03/22 Mirtazapine 45 mg PO QPM 05/30/21 07/03/22 DULoxetine [Cymbalta] 30 mg PO DAILY 01/26/22 07/03/22 Tamsulosin [Flomax] 0.4 mg PO DAILY 01/26/22 07/03/22 Albuterol 2.5 mg INH Q4H PRN #30 ml 04/16/22 07/03/22 Albuterol Sulf [Ventolin Hfa 1 - 2 puffs INH Q4HR PRN #1 each 04/16/22 07/03/22 Inhaler] Losartan [Cozaar] 50 mg PO DAILY #30 tab 04/20/22 05/02/22 Lisdexamfetamine Dimesylate 20 mg PO DAILY 07/03/22 07/04/22 [Vyvanse] Insulin Lispro 83 unit SUBQ .INSULIN PUMP 07/04/22 07/04/22 Losartan Potassium 25 mg PO DAILY 07/04/22 07/04/22 - PHYSICAL EXAM AT DISCHARGE General Appearance: positive: No acute distress, Alert, Other (Male pattern baldness, appears older than stated age.) Eyes Bilateral: positive: Normal inspection, EOMI ENT: positive: ENT inspection nml, No signs of dehydration Neck: positive: Nml inspection, No JVD Respiratory: positive: No respiratory distress, Breath sounds nml Cardiovascular: positive: Regular rate & rhythm, No murmur Abdomen: positive: Non-tender, Nml bowel sounds, No distention Skin: positive: Warm, Dry Extremities: positive: Non-tender, No pedal edema Neurologic/Psychiatric: positive: Oriented x3, Motor nml - LABS Result Diagrams: 07/03/22 16:15 07/04/22 05:26 - DIAGNOSTIC IMAGING Diagnostic Imaging Results: Final report reviewed - FOLLOW UP Follow Up: He was reminded to keep all appointments to his different providers (Diabetic, Neurology, Primary Care). - TIME SPENT Time Spent in Discharge (Minutes): 30
[2022-07-04] MEDS ORDERED: MIRTAZAPINE 15 MG TABLET PO SCH (21:00)
[2022-07-04] MEDS ORDERED: ATORVASTATIN 40 MG TABLET PO SCH (21:00)
== END 2022-07-04 14:42 | disposition home or self-care (01) ==
LOC: EDUNIT# → ED 16:00 → MS3 21:38
PROVIDERS: ADMIT Student in an Organized Health Care Education/Training Program; ATTEND Internal Medicine
DX: R07.89 Other chest pain (principal); R11.2 Nausea with vomiting, unspecified; B34.9 Viral infection, unspecified; E10.9 Type 1 diabetes mellitus without complications; Z96.41 Presence of insulin pump (external) (internal); I10 Essential (primary) hypertension; F01.50 Vascular dementia, unspecified severity, without behavioral disturbance, psychotic disturbance, mood disturbance, and anxiety; F90.9 Attention-deficit hyperactivity disorder, unspecified type; E78.5 Hyperlipidemia, unspecified; Z20.822 Contact with and (suspected) exposure to COVID-19; E03.9 Hypothyroidism, unspecified; F32.A Depression, unspecified; Z87.891 Personal history of nicotine dependence
CPT/HCPCS: 36415; 70450; 71045; 71275; 80048; 80053; 82009; 82803; 83690; 83735; 83880; 84100; 84439; 84443; 84484; 85025; 87633; 93005; 96372; 96374; 96375; 99285; A9270; G0378; J1170; J1650; J2765; Q9967

== ENCOUNTER 2022-08-19 11:29 | Inpatient (IN) | payer MEDICARE ==
[2022-08-19] MEDS ORDERED: SODIUM CHLORIDE 0.9% 1,000 ML IV STA (11:52)
--- NOTE | 2022-08-19 12:05 | ED Physician Documentation ---
History of Present Illness - Stated complaint Stated Complaint: SOA,VOMITING, - Chief complaint Chief Complaint: General - History obtained from History obtained from: Patient - History of Present Illness Timing: Last night Pain level max: 0 Pain level now: 0 - Additonal information Additional information: Patient is a 56-year-old male with a history of diabetes who presents to the emergency department stating that his blood sugar is reading high on has glucose monitor today. He states he has had nausea and vomiting as well. History of recurrent DKA. No fevers. No chills. No recent illnesses. Nothing makes it better or worse. Review of Systems Constitutional: denies: Fever, Chills Nose: denies: Rhinorrhea / runny nose, Congestion Throat: denies: Sore throat Cardiac: denies: Chest pain / pressure, Palpitations Respiratory: denies: Cough GI: reports: Nausea, Vomiting. denies: Diarrhea Skin: denies: Rash Musculoskeletal: denies: Neck pain, Back pain Neurologic: denies: Headache PD PAST MEDICAL HISTORY - Past Medical History Past Medical History: Yes Cardiovascular: Hypertension, High cholesterol, Arrhythmia, Other Respiratory: Pneumonia Neuro: Dementia, CVA, Fainting, Other Endocrine/Autoimmune: Type 1 diabetes, HyPOthyroidism GI: GERD, Ulcers, Colon polyps : Other HEENT: Other Psych: Depression, Anxiety, ADD/ADHD Musculoskeletal: Chronic back pain, Other Derm: None - Past Surgical History Past Surgical History: Yes General: Colonoscopy Ortho: Carpal Tunnel surgery, Other Cardiovascular: Other HEENT: Other - Present Medications Home Medications: Ambulatory Orders Medication Instructions Recorded Confirmed Atorvastatin Calcium [Lipitor] 80 mg PO QPM 05/30/21 07/03/22 Donepezil HCl [Aricept] 10 mg PO DAILY 05/30/21 07/03/22 Mirtazapine 45 mg PO QPM 05/30/21 07/03/22 DULoxetine [Cymbalta] 30 mg PO DAILY 01/26/22 07/03/22 Tamsulosin [Flomax] 0.4 mg PO DAILY 01/26/22 07/03/22 Albuterol 2.5 mg INH Q4H PRN #30 ml 04/16/22 07/03/22 Albuterol Sulf [Ventolin Hfa 1 - 2 puffs INH Q4HR PRN #1 each 04/16/22 07/03/22 Inhaler] Losartan [Cozaar] 50 mg PO DAILY #30 tab 04/20/22 05/02/22 Lisdexamfetamine Dimesylate 20 mg PO DAILY 07/03/22 07/04/22 [Vyvanse] Insulin Lispro 83 unit SUBQ .INSULIN PUMP 07/04/22 07/04/22 Losartan Potassium 25 mg PO DAILY 07/04/22 07/04/22 - Allergies Allergies/Adverse Reactions: Allergies Allergy/AdvReac Type Severity Reaction Status Date / Time omeprazole Allergy Intermediate Nausea Verified 08/19/22 11:50 insulin aspart Allergy Unknown Verified 08/19/22 11:50 [From Novolog U-100 Insulin aspart] insulin aspart protamine Allergy Unknown Verified 08/19/22 11:50 human [From Novolog Mix 70-30 U-100 Insuln] codeine AdvReac Severe Dizziness Verified 08/19/22 11:50 doxycycline AdvReac Intermediate Dizziness Verified 08/19/22 11:50 tarragon AdvReac Nausea Uncoded 08/19/22 11:50 - Social History Does the pt smoke?: No Smoking Status: Never smoker Does the pt drink ETOH?: No Does the pt have substance abuse?: Yes - Immunizations Immunizations are current?: Yes - POLST Patient has POLST: No POLST Status: Full Code PD ED PE NORMAL - Vitals Vital signs reviewed: Yes - General General: Alert and oriented X 3, No acute distress - HEENT HEENT: PERRL, Moist mucous membranes - Neck Neck: Supple, no meningeal sign - Cardiac Cardiac: RRR, Strong equal pulses - Respiratory Respiratory: No respiratory distress, Clear bilaterally - Abdomen Abdomen: Soft, Non tender, Non distended - Derm Derm: Warm and dry - Extremities Extremities: No edema, No calf tenderness / cord - Neuro Neuro: Alert and oriented X 3 - Psych Psych: Normal mood, Normal affect Results - Vitals Vitals: Vital Signs - 24 hr 08/19/22 08/19/22 08/19/22 11:46 12:26 12:53 Temperature 36.4 C L Heart Rate 74 73 69 Respiratory 20 20 17 Rate Blood Pressure 155/81 H 151/107 H 141/34 H O2 Saturation 100 100 100 Oxygen O2 Source [] Room air O2 Source Room air - EKG (time done) 1240 EKG releavant findings:: EKG personally interpreted by author of this note. Relevant findings are: Rate: Rate (enter#) (69) Rhythm: NSR [place]: Normal Intervals: Normal [place] QRS: Normal Ischemia: Non specific changes - Labs Labs: Laboratory Tests 08/19/22 08/19/22 08/19/22 12:02 12:02 12:02 WBC 7.3 RBC 4.68 L Hgb 14.0 Hct 43.2 MCV 92.3 MCH 29.9 MCHC 32.4 RDW 12.2 Plt Count 216 MPV 11.7 H Neut # (Auto) 6.4 Lymph # (Auto) 0.5 L [place] # (Auto) 0.4 Eos # (Auto) 0.0 Baso # (Auto) 0.1 Absolute Nucleated RBC 0.00 Nucleated RBC % 0.0 VBG pH 7.306 L VBG pCO2 41.6 VBG pO2 30.1 VBG HCO3 20.3 L VBG Total CO2 21.6 L VBG O2 Saturation 54.8 L VBG Base Excess -5.7 L Sodium 133 L Potassium 6.1 H* Chloride 97 L Carbon Dioxide 24 Anion Gap 12.0 BUN 26 H Creatinine 1.4 H Estimated GFR (MDRD) 52 L Glucose 667 H* Calcium 9.2 Phosphorus 4.9 H Magnesium 2.1 Total Bilirubin 1.4 H AST 17 ALT 16 Alkaline Phosphatase 64 Total Protein 7.3 Albumin 4.2 Globulin 3.1 Albumin/Globulin Ratio 1.4 Lipase 33 Urine Color Urine Clarity Urine pH Ur Specific [place] Urine Protein Urine Glucose (UA) Urine Ketones Urine Occult Blood Urine Nitrite Urine Bilirubin Urine Urobilinogen Ur Leukocyte Esterase Ur Microscopic Review Urine Culture Comments Serum Ketones SMALL H 08/19/22 12:20 WBC RBC Hgb Hct MCV MCH MCHC RDW Plt Count MPV Neut # (Auto) Lymph # (Auto) [place] # (Auto) Eos # (Auto) Baso # (Auto) Absolute Nucleated RBC Nucleated RBC % VBG pH VBG pCO2 VBG pO2 VBG HCO3 VBG Total CO2 VBG O2 Saturation VBG Base Excess Sodium Potassium Chloride Carbon Dioxide Anion Gap BUN Creatinine Estimated GFR (MDRD) Glucose Calcium Phosphorus Magnesium Total Bilirubin AST ALT Alkaline Phosphatase Total Protein Albumin Globulin Albumin/Globulin Ratio Lipase Urine Color LIGHT YELLOW Urine Clarity CLEAR Urine pH 5.5 Ur Specific [place] 1.010 Urine Protein NEGATIVE Urine Glucose (UA) >=1000 H Urine Ketones 15 H Urine Occult Blood NEGATIVE Urine Nitrite NEGATIVE Urine Bilirubin NEGATIVE Urine Urobilinogen 0.2 (NORMAL) Ur Leukocyte Esterase NEGATIVE Ur Microscopic Review NOT INDICATED Urine Culture Comments NOT INDICATED Serum Ketones PD Medical Decision Making - ED course Complexity details: reviewed old records, reviewed results, re-evaluated patient, considered differential, d/w patient, d/w java consultant ED course: 56-year-old male with DKA. Given IV fluids. Started on insulin drip. His CBC does not show any significant abnormalities. Blood gas shows a pH of 7.3 with a base excess of -5.7. Chemistry shows a potassium of 6.1, glucose of 667. Creatinine 1.4. Small ketones as well. We will admit the patient for DKA. Discussed the case with Dr. Zuniga, hospitalist who accepts This document was made in part using voice recognition software. While efforts are made to proofread this document, sound alike and grammatical errors may occur. Departure - Departure Disposition: 66 [facility] DC/Xfer Clinical Impression: Hyperkalemia Diabetic ketoacidosis Qualifiers: Diabetes mellitus type: type 1 Diabetes mellitus complication detail: without coma Qualified Code(s): E10.10 - Type 1 diabetes mellitus with ketoacidosis without coma Type 1 diabetes mellitus Qualifiers: Diabetes mellitus complication status: without complication Qualified Code(s): E10.9 - Type 1 diabetes mellitus without complications Condition: Stable
[2022-08-19 12:12] LABS: VBG BASE EXCESS -5.7 mmol/L (-2 - +2); VBG HCO3 20.3 mmol/L (23-28); VBG OXYGEN SATURATION 54.8 % (60-80); VBG PCO2 41.6 mmHg (41-51); VBG PH 7.306 (7.31-7.41); VBG PO2 30.1 mmHg (25-47); VBG TOTAL CO2 21.6 mmol/L (24-29)
[2022-08-19 12:16] LABS: BASOPHILS # (AUTO) 0.1 10^3/uL (0.0-0.1); BASOPHILS % (AUTO) 0.7 %; EOSINOPHILS % (AUTO) 0.3 %; HCT - HEMATOCRIT 43.2 % (42.0-52.0); LYMPHOCYTES # (AUTO) 0.5 10^3/uL (1.5-3.5); LYMPHOCYTES % (AUTO) 6.8 %; MEAN CORPUSCULAR HEMOGLOBIN 29.9 pg (27.0-31.0); MEAN CORPUSCULAR HGB CONC 32.4 g/dL (32.0-36.0); MEAN CORPUSCULAR VOLUME 92.3 fL (80.0-94.0); MEAN PLATELET VOLUME 11.7 fL (7.4-11.4); MONOCYTES # (AUTO) 0.4 10^3/uL (0.0-1.0); MONOCYTES % (AUTO) 5.2 %; NEUTROPHILS # (AUTO) 6.4 10^3/uL (1.5-6.6); NEUTROPHILS % (AUTO) 86.7 %; PLT - PLATELET COUNT 216 10^3/uL (130-450); RED BLOOD COUNT 4.68 10^6/uL (4.70-6.10); RED CELL DISTRIBUTION WIDTH 12.2 % (12.0-15.0); WHITE BLOOD COUNT 7.3 x10^3/uL (4.8-10.8)
[2022-08-19 12:27] LABS: ALBUMIN 4.2 g/dL (3.2-5.5); ALBUMIN/GLOBULIN RATIO 1.4 (1.0-2.2); ALKALINE PHOSPHATASE 64 IU/L (42-121); ALT ALANINE AMINOTRANSFERASE 16 IU/L (10-60); AST ASPARTATE AMINOTRANSFERASE 17 IU/L (10-42); BILIRUBIN,TOTAL 1.4 mg/dL (0.2-1.0); BUN - BLOOD UREA NITROGEN 26 mg/dL (6-20); CALCIUM 9.2 mg/dL (8.5-10.3); CARBON DIOXIDE - CO2 24 mmol/L (21-32); CHLORIDE 97 mmol/L (101-111); CREATININE 1.4 mg/dL (0.6-1.2); GFR - MDRD 52 (>89); LIPASE 33 U/L (22-51); MAGNESIUM 2.1 mg/dL (1.7-2.8); PHOSPHORUS 4.9 mg/dL (2.5-4.6); SODIUM 133 mmol/L (135-145); TOTAL PROTEIN 7.3 g/dL (6.7-8.2)
[2022-08-19 12:29] LABS: POTASSIUM 6.1 mmol/L (3.5-5.0)
[2022-08-19 12:30] LABS: GLUCOSE 667 mg/dL (70-100)
[2022-08-19 12:36] LABS: KETONES, SERUM (ACETEST) SMALL (NEGATIVE)
[2022-08-19] MEDS ORDERED: INSULIN REGULAR IN 0.9 % NS 100 UNIT/100 ML BAG IV STA (12:37)
[2022-08-19 12:38] LABS: BILIRUBIN,URINE NEGATIVE (NEGATIVE); GLUCOSE, URINE (UA) >=1000 mg/dL (NEGATIVE); KETONES,URINE (UA) 15 mg/dL (NEGATIVE); LEUKOCYTE ESTERASE, URINE NEGATIVE (NEGATIVE); NITRITE,URINE NEGATIVE (NEGATIVE); OCCULT BLOOD,URINE NEGATIVE (NEGATIVE); PH,URINE 5.5 PH (5.0-7.5); PROTEIN,URINE NEGATIVE (NEGATIVE); UROBILINOGEN,URINE 0.2 (NORMAL) E.U./dL (NORMAL)
[2022-08-19 12:39] LABS: CLARITY,URINE CLEAR (CLEAR)
[2022-08-19] MEDS ORDERED: PROCHLORPERAZINE 10 MG/2 ML VIAL IVP PRN (13:02)
[2022-08-19] MEDS ORDERED: ACETAMINOPHEN 325 MG TABLET PO PRN (13:02)
--- NOTE | 2022-08-19 13:13 | HISTORY & PHYSICAL EXAMINATION ---
Chief Complaint - Chief Complaint Chief Complaint: N/V and glu high History of Present Illness - Admitted From Admitted From:: ED - History Obtained From History obtained from: ED provider and the patient - History of Present Illness HPI Comment/Other: This is a 56-year-old man with a history of insulin-dependent diabetes on an insulin pump that often either has not worked or he is not using it correctly. He has had DKA admissions here before. There is a history of strokes and poor memory and possibly ADD. Patient presented to the ER today with complaints of nausea and vomiting for a day and reporting that his glucose was elevated. Lab work showed that he has a pH of 7.3, serum ketones small, and serum glucose is 667. The ED provider started him on treatment for DKA and spoke to me on the Hospitalist team. The pt will be admitted to the ICU for DKA management. He states that this keeps happening to him and he is getting frustrated. I asked him if he is forgetting to put insulin in his reservoirs (which was the case a few mos ago), and he claims he is not forgetting. He denies any CP, cough, pain, fever, diarrhea or any other complaints. History - Past Medical History Cardiovascular: reports: Hypertension, High cholesterol, Arrhythmia, Other Respiratory: reports: Pneumonia Neuro: reports: Dementia, CVA, Fainting, Other Endocrine/Autoimmune: reports: Type 1 diabetes, HyPOthyroidism GI: reports: GERD, Ulcers, Colon polyps : reports: Other HEENT: reports: Other Psych: reports: Depression, Anxiety, ADD/ADHD Musculoskeletal: reports: Chronic back pain, Other Derm: reports: None MRSA Hx?: No - Past Surgical History General: reports: Colonoscopy Ortho: reports: Carpal Tunnel surgery, Other Cardiovascular: reports: Other HEENT: reports: Other - Family & Social History Family History: Other family: CAD, CVA/TIA Family History Comment/Other: States his father had a myocardial infarction in his early 30s and he also had a stroke. His maternal side has a strong history of cardiac disease and strokes as well. Living arrangement: At home Living Situation: With spouse/s.o. Social History Notes: He lives at home with his spouse. He no longer smokes but did smoke a pack and half a day for about 13 years but quit in his 30s. He rarely drinks alcohol. 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 - Substance History Use: Uses substance without health or social issues: Cannabis - POLST Patient has POLST: No POLST Status: Full Code Meds/Allgy - Home Medications Home Medications: Ambulatory Orders Medication Instructions Recorded Confirmed Atorvastatin Calcium [Lipitor] 80 mg PO QPM 05/30/21 07/03/22 Donepezil HCl [Aricept] 10 mg PO DAILY 05/30/21 07/03/22 Mirtazapine 45 mg PO QPM 05/30/21 07/03/22 DULoxetine [Cymbalta] 30 mg PO DAILY 01/26/22 07/03/22 Tamsulosin [Flomax] 0.4 mg PO DAILY 01/26/22 07/03/22 Albuterol 2.5 mg INH Q4H PRN #30 ml 04/16/22 07/03/22 Albuterol Sulf [Ventolin Hfa 1 - 2 puffs INH Q4HR PRN #1 each 04/16/22 07/03/22 Inhaler] Losartan [Cozaar] 50 mg PO DAILY #30 tab 04/20/22 05/02/22 Lisdexamfetamine Dimesylate 20 mg PO DAILY 07/03/22 07/04/22 [Vyvanse] Insulin Lispro 83 unit SUBQ .INSULIN PUMP 07/04/22 07/04/22 Losartan Potassium 25 mg PO DAILY 07/04/22 07/04/22 - Allergies Allergies/Adverse Reactions: Allergies Allergy/AdvReac Type Severity Reaction Status Date / Time omeprazole Allergy Intermediate Nausea Verified 08/19/22 11:50 insulin aspart Allergy Unknown Verified 08/19/22 11:50 [From Novolog U-100 Insulin aspart] insulin aspart protamine Allergy Unknown Verified 08/19/22 11:50 human [From Novolog Mix 70-30 U-100 Insuln] codeine AdvReac Severe Dizziness Verified 08/19/22 11:50 doxycycline AdvReac Intermediate Dizziness Verified 08/19/22 11:50 tarragon AdvReac Nausea Uncoded 08/19/22 11:50 Review of Systems - Gastrointestinal Gastrointestinal: reports: Nausea, Vomiting - All Other Systems All Other Systems: reports: Reviewed and negative Exam - Vital Signs Reviewed Vital Signs: Yes Vital Signs: Vital Signs x48h Temp Pulse Resp BP Pulse Ox 08/19/22 12:53 69 17 141/34 H 100 08/19/22 12:26 73 20 151/107 H 100 08/19/22 11:46 36.4 C L 74 20 155/81 H 100 - Physical Exam General Appearance: positive: No acute distress, Alert, Other (Male pattern baldness, he appears older than his age) Eyes Bilateral: positive: Normal inspection, EOMI ENT: positive: ENT inspection nml, No signs of dehydration Neck: positive: Nml inspection, No JVD Respiratory: positive: No respiratory distress, Breath sounds nml Cardiovascular: positive: Regular rate & rhythm, No murmur Abdomen: positive: Non-tender, No organomegaly, Nml bowel sounds Skin: positive: Warm, Dry Extremities: positive: Non-tender, No pedal edema Neurologic/Psychiatric: positive: Oriented x3, Motor nml Conclusion/Plan - Problem List (1) Diabetic ketoacidosis Conclusion/Plan: The patient's urinalysis is negative for UTI and chest x-ray unremarkable. Last time he had a viral syndrome, which gave him DKA. There is also been a history of him not using his insulin pump correctly, which could be the cause for this current DKA episode Plan: Admit to the ICU, started DKA protocol with insulin drip, glu checks, hypoglycemia protocol Stop his insulin pump from infusing. Diabetic RN to see in am before his pump is resumed. Continue with as needed IV antiemetics, and will order a clear liquid diet, to be advanced as tolerated. Continue with IV saline, change to iv containing D5 with NS when glu <200. Follow his serum ketones, pH, electrolytes closely and keep correcting I will order a PCR respiratory panel to check for viral syndrome I will order troponins x2 to rule out an HI as the cause of this DKA Qualifiers: Diabetes mellitus type: type 1 Diabetes mellitus complication detail: without coma Qualified Code(s): E10.10 - Type 1 diabetes mellitus with ketoacidosis without coma (2) Hyperkalemia Conclusion/Plan: This is from his serum being hyperglycemic and acidotic. Plan: As we give insulin and Promote glucose entering the cell, the potassium will also enter the cells and serum K should correct in parallel. (3) SAMUEL (acute kidney injury) Conclusion/Plan: He presents with an elevated BUN and creatinine. All labs were reviewed. He is dehydrated by virtue of being hyperglycemic and hyperosmotic, which caused diuresis. Plan: Avoid nephrotoxins Giving aggressive saline hydration should also help the BUN and creatinine recover Follow BMP closely - Lab Results Fish Bones: 08/19/22 12:02 08/19/22 16:00 - Diagnostic Imaging Results Diagnostic Imaging Results: positive: Final report reviewed - Other Other Results/Comments: Attestation: The patient is expected to be hospitalized greater than 2 midnights and is expected to be transferred or discharged to another facility within 96 hours: Yes
[2022-08-19 13:48] LABS: VBG BASE EXCESS -5.9 mmol/L (-2 - +2); VBG HCO3 20.5 mmol/L (23-28); VBG OXYGEN SATURATION 95.4 % (60-80); VBG PCO2 43.5 mmHg (41-51); VBG PH 7.291 (7.31-7.41); VBG PO2 84.6 mmHg (25-47); VBG TOTAL CO2 21.8 mmol/L (24-29)
[2022-08-19] MEDS ORDERED: INSULIN REGULAR IN 0.9 % NS 100 UNIT/100 ML BAG IV SCH (14:00)
[2022-08-19] MEDS ORDERED: SODIUM CHLORIDE 0.9% 1,000 ML IV SCH (14:00)
[2022-08-19 14:22] LABS: KETONES, SERUM (ACETEST) SMALL (NEGATIVE)
[2022-08-19 14:24] LABS: BUN - BLOOD UREA NITROGEN 24 mg/dL (6-20); CALCIUM 8.8 mg/dL (8.5-10.3); CARBON DIOXIDE - CO2 19 mmol/L (21-32); CHLORIDE 100 mmol/L (101-111); CREATININE 1.3 mg/dL (0.6-1.2); GFR - MDRD 57 (>89); MAGNESIUM 2.2 mg/dL (1.7-2.8); SODIUM 132 mmol/L (135-145)
[2022-08-19 14:26] LABS: GLUCOSE 532 mg/dL (70-100)
[2022-08-19 14:42] LABS: BUN - BLOOD UREA NITROGEN 24 mg/dL (6-20); CALCIUM 9.2 mg/dL (8.5-10.3); CARBON DIOXIDE - CO2 22 mmol/L (21-32); CHLORIDE 99 mmol/L (101-111); CREATININE 1.3 mg/dL (0.6-1.2); GFR - MDRD 57 (>89); GLUCOSE 448 mg/dL (70-100); MAGNESIUM 2.3 mg/dL (1.7-2.8); POTASSIUM 4.7 mmol/L (3.5-5.0); SODIUM 134 mmol/L (135-145)
[2022-08-19 14:49] LABS: KETONES, SERUM (ACETEST) SMALL (NEGATIVE)
--- NOTE | 2022-08-19 15:33 | ANESTHESIA PROCEDURE NOTE ---
Anesth Central Line Template - Central Line Central Line Preparation: Consent Obtained, Time out completed, Ultrasound used, Sterile prep and drape Central line location: Right IJ Central line type: Triple lumen Central line catheter tip site resides: Superior vena cava (SVC) Central line aftercare: Chlorhexidine disc placed, Secured (@17), Placement confirmed, No pneumothorax, No complications, Bundle checklist complete, Pt tolerated well, Other Other Info/Details: 3 caps/ports easily aspirate and flush
[2022-08-19] MEDS ORDERED: POTASSIUM CHLOR 20 MEQ/100 ML 20 MEQ/100 ML BAG IV ONE (16:32)
[2022-08-19 16:33] LABS: BUN - BLOOD UREA NITROGEN 21 mg/dL (6-20); CALCIUM 8.6 mg/dL (8.5-10.3); CARBON DIOXIDE - CO2 24 mmol/L (21-32); CHLORIDE 103 mmol/L (101-111); CREATININE 1.1 mg/dL (0.6-1.2); GFR - MDRD 69 (>89); GLUCOSE 226 mg/dL (70-100); KETONES, SERUM (ACETEST) NEGATIVE (NEGATIVE); POTASSIUM 3.8 mmol/L (3.5-5.0); SODIUM 133 mmol/L (135-145)
--- NOTE | 2022-08-19 16:46 | XRAY Report ---
PROCEDURE: Chest for Line Placement INDICATIONS: new CVL@R IJ TECHNIQUE: One view of the chest was acquired. COMPARISON: Chest x-ray, 07/03/2022. FINDINGS: Surgical changes and devices: There is a right IJ central line projecting to the area of SVC. Lungs and pleura: No pleural effusions or pneumothorax. Lungs are clear. Mediastinum: Mediastinal contours appear normal. Heart size is normal. Bones and chest wall: No suspicious bony lesions. Overlying soft tissues appear unremarkable. IMPRESSION: The right IJ central line tip projecting to the area of SVC Reviewed by: Eris Beck MD on 08/19/2022 4:44 PM PDT Approved by: Eris Beck MD on 08/19/2022 4:44 PM PDT Station ID: [id number]
[2022-08-19] MEDS ORDERED: DEXTROSE 5%-0.9% NACL 1,000 ML IV SCH (17:15)
[2022-08-19] MEDS: SODIUM CHLORIDE FLUSH 0.9% 10 ML SYRINGE IVP SCH (17:52)
[2022-08-19 18:57] LABS: CALCIUM 8.3 mg/dL (8.5-10.3); CREATININE 0.9 mg/dL (0.6-1.2); MAGNESIUM 1.8 mg/dL (1.7-2.8); POTASSIUM 4.1 mmol/L (3.5-5.0)
[2022-08-19 19:16] LABS: B. PARAPERTUSSIS- RESP PCR PAN NOT DETECTED; B. PERTUSSIS- RESP PCR PANEL NOT DETECTED; C. PNEUMONIAE- RESP PCR PANEL NOT DETECTED; CORONAVIRUS 229E-RESP PCR NOT DETECTED; CORONAVIRUS HKU1-RESP PCR NOT DETECTED; CORONAVIRUS NL63-RESP PCR NOT DETECTED; CORONAVIRUS OC43-RESP PCR NOT DETECTED; HUMAN METAPNEUMOVIRUS NOT DETECTED; INFLUENZA A- RESP PCR PANEL NOT DETECTED; INFLUENZA B - RESP PCR PANEL NOT DETECTED; M. PNEUMONIAE- RESP PCR PANEL NOT DETECTED; PARAINFLUENZA VIRUS 1 NOT DETECTED; PARAINFLUENZA VIRUS 2 NOT DETECTED; PARAINFLUENZA VIRUS 3 NOT DETECTED; PARAINFLUENZA VIRUS 4 NOT DETECTED; RHINOVIRUS/ENTEROVIRUS NOT DETECTED; RSV- RESP PCR PANEL NOT DETECTED; SARS-CoV-2 -RESP PCR PANEL NOT DETECTED
[2022-08-19] MEDS: FAMOTIDINE 20 MG/2 ML VIAL IVP SCH (20:20)
[2022-08-19] MEDS ORDERED: INSULIN REGULAR HUMAN 100 UNIT in SODIUM CHLORIDE 0.9% 100ML 99 ML IV SCH (21:00)
[2022-08-19] MEDS ORDERED: INSULIN GLARGINE-YFGN 300 UNIT/3 ML PEN SUBQ SCH (21:00)
[2022-08-19] MEDS ORDERED: INSULIN LISPRO 300 UNIT/3 ML PEN SUBQ SCH (21:00)
[2022-08-19] MEDS: SODIUM CHLORIDE FLUSH 0.9% 10 ML SYRINGE IVP PRN (22:07)
--- NOTE | 2022-08-20 00:59 | PROVIDER PROGRESS NOTE ---
Progress Note I was called by RN to assess if patient can be transferred to [facility], patient discussed in detail with RN, ICU bed needed for an ER patient, Aniogap is 7 and CO2 is 26 ok to transfer to [facility], also after next blood draw labs draws not needed so frequently and can be changed to daily labs, discussed with RN Bennett.
[2022-08-20] MEDS: SODIUM CHLORIDE FLUSH 0.9% 10 ML SYRINGE IVP SCH ×3 (01:18→16:32)
[2022-08-20 06:37] LABS: BASOPHILS # (AUTO) 0.1 10^3/uL (0.0-0.1); EOSINOPHILS # (AUTO) 0.1 10^3/uL (0.0-0.7); EOSINOPHILS % (AUTO) 1.6 %; HCT - HEMATOCRIT 36.6 % (42.0-52.0); HGB - HEMOGLOBIN 12.4 g/dL (14.0-18.0); LYMPHOCYTES # (AUTO) 1.3 10^3/uL (1.5-3.5); MEAN CORPUSCULAR HEMOGLOBIN 29.7 pg (27.0-31.0); MEAN CORPUSCULAR HGB CONC 33.9 g/dL (32.0-36.0); MEAN CORPUSCULAR VOLUME 87.6 fL (80.0-94.0); MEAN PLATELET VOLUME 11.7 fL (7.4-11.4); MONOCYTES # (AUTO) 0.5 10^3/uL (0.0-1.0); NEUTROPHILS # (AUTO) 4.3 10^3/uL (1.5-6.6); NEUTROPHILS % (AUTO) 68.9 %; PLT - PLATELET COUNT 215 10^3/uL (130-450); RED BLOOD COUNT 4.18 10^6/uL (4.70-6.10); RED CELL DISTRIBUTION WIDTH 12.2 % (12.0-15.0); WHITE BLOOD COUNT 6.3 x10^3/uL (4.8-10.8)
[2022-08-20 06:49] LABS: CALCIUM 8.2 mg/dL (8.5-10.3); CREATININE 0.9 mg/dL (0.6-1.2); POTASSIUM 3.8 mmol/L (3.5-5.0)
[2022-08-20] MEDS: ENOXAPARIN 40 MG/0.4 ML SYRINGE SUBQ SCH (08:09)
[2022-08-20] MEDS: DONEPEZIL 5 MG TABLET PO SCH (08:10)
[2022-08-20] MEDS: FAMOTIDINE 20 MG/2 ML VIAL IVP SCH ×3 (08:10→21:00)
[2022-08-20] MEDS: TAMSULOSIN 0.4 MG CAPSULE PO SCH (08:10)
[2022-08-20] MEDS: INSULIN LISPRO 300 UNIT/3 ML PEN SUBQ SCH ×5 (08:11→20:59)
[2022-08-20 09:53] LABS: ESTIMATED AVERAGE GLUCOSE 163 mg/dL (70-100); HEMOGLOBIN A1c% 7.3 % (4.27-6.07)
[2022-08-20] MEDS: INSULIN GLARGINE-YFGN 300 UNIT/3 ML PEN SUBQ SCH ×4 (11:04→21:16)
--- NOTE | 2022-08-20 12:43 | PHARMACY PROGRESS NOTE ---
- Best Possible Medication History Admit Date and Time: 08/19/22 4423 Processed by: Pharmacy Medication History completed: Yes Patient Interview: Completed Secondary Source(s): Pharmacy records ( doesn't know about his insulin usage.) As the person ultimately responsible for medication therapy, providers are able to order a medication from an existing home medication list in [facility] via the "Reconcile Routine" prior to Confirmation of that medication by learning support specialist. Such practice is discouraged except when the physician, in their clinical judgment, deems that a medical need exists for a medication without regard to previous use.
[2022-08-20] MEDS: SODIUM CHLORIDE FLUSH 0.9% 10 ML SYRINGE IVP PRN (13:48)
[2022-08-20] MEDS ORDERED: SODIUM CHLORIDE FLUSH 0.9% 10 ML SYRINGE IVP ONE (13:49)
[2022-08-20] MEDS ORDERED: INSULIN LISPRO 300 UNIT/3 ML PEN SUBQ ONE (14:00)
--- NOTE | 2022-08-20 16:56 | PROVIDER PROGRESS NOTE ---
Assessment/Plan - Problem List (1) Diabetic ketoacidosis Qualifiers: Diabetes mellitus type: type 1 Diabetes mellitus complication detail: without coma Qualified Code(s): E10.10 - Type 1 diabetes mellitus with ketoacidosis without coma Assessment/Plan: Conclusion/Plan: The patient's urinalysis is negative for UTI and chest x-ray unremarkable. Last time he had a viral syndrome, which gave him DKA. There is also been a history of him not using his insulin pump correctly, which could be the cause for this current DKA episode Plan: Admit to the ICU, started DKA protocol with insulin drip, glu checks, hypoglycemia protocol Stop his insulin pump from infusing. Diabetic RN to see in am before his pump is resumed. Continue with as needed IV antiemetics, and will order a clear liquid diet, to be advanced as tolerated. Continue with IV saline, change to iv containing D5 with NS when glu <200. Follow his serum ketones, pH, electrolytes closely and keep correcting I will order a PCR respiratory panel to check for viral syndrome I will order troponins x2 to rule out an MD as the cause of this DKA August 20, 2022-patient is off of insulin drip and is getting Lantus 20 units subcu twice daily along with nutritional lispro and sliding scale lispro. We will not use his pump here as unclear whether he is not doing things properly or what is going on with it and will plan to discharge on subcu insulin and he can follow- up with his consumer educator as an outpatient along with his primary care provider Qualifiers: Diabetes mellitus type: type 1 Diabetes mellitus complication detail: without coma Qualified Code(s): E10.10 - Type 1 diabetes mellitus with ketoacidosis without coma (2) Hyperkalemia Conclusion/Plan: This is from his serum being hyperglycemic and acidotic. Plan: As we give insulin and Promote glucose entering the cell, the potassium will also enter the cells and serum K should correct in parallel. August 20, 2022, resolved and will monitor (3) SAMUEL (acute kidney injury) Conclusion/Plan: He presents with an elevated BUN and creatinine. All labs were reviewed. He is dehydrated by virtue of being hyperglycemic and hyperosmotic, which caused diuresis. Plan: Avoid nephrotoxins Giving aggressive saline hydration should also help the BUN and creatinine recover Follow BMP closely - Current Meds Current Meds: Current Medications Generic Name Dose Route Start Last Admin Trade Name Freq PRN Reason Stop Dose Admin Donepezil HCl 10 mg 08/20/22 09:00 08/20/22 08:10 Donepezil 5 Mg Tablet PO 10 mg DAILY SRIDEVI Administration Enoxaparin Sodium 40 mg 08/20/22 09:00 08/20/22 08:09 Enoxaparin 40 Mg/0.4 Ml Syringe SUBQ 40 mg DAILY SRIDEVI Administration Famotidine 20 mg 08/19/22 21:00 08/20/22 09:43 Famotidine 20 Mg/2 Ml Vial IVP 20 mg BID SRIDEVI Administration Insulin Glargine-yfgn 20 unit 08/20/22 10:30 08/20/22 13:53 Insulin Glargine-Yfgn 300 Unit/3 Ml Pen SUBQ 20 unit BID SRIDEVI Administration Insulin Human Lispro 2 - 10 unit 08/20/22 08:00 08/20/22 12:49 Insulin Lispro 300 Unit/3 Ml Pen SUBQ 8 unit 0800,1200,1700,2100 SRIDEVI Administration Protocol Sodium Chloride 10 ml 08/19/22 17:00 08/20/22 16:32 Sodium Chloride Flush 0.9% 10 Ml Syringe IVP 10 ml 0100,0900,1700 SRIDEVI Administration Sodium Chloride 10 ml 08/19/22 13:02 08/20/22 13:48 Sodium Chloride Flush 0.9% 10 Ml Syringe IVP 10 ml PRN PRN Administration NEEDED PER PROVIDER ORDERS Tamsulosin HCl 0.4 mg 08/20/22 09:00 08/20/22 08:10 Tamsulosin 0.4 Mg Capsule PO 0.4 mg DAILY SRIDEVI Administration - Lab Result Fish Bone Diagrams: 08/20/22 06:05 08/20/22 06:05 - Additional Planning My Orders: My Active Orders 08/20/22 Lunch Carb-controlled Diet [DIET] 08/20/22 12:40 Initiate Hypoglycemia Protocol [RC] .protocol 08/20/22 17:00 Ibuprofen [Motrin] 200 mg PO ONCE Insulin Lispro [Humalog Kwikpen U-100] 5 unit SUBQ TIDWM Subjective - Subjective Nursing Reports: No Complaints Objective Vital Signs: Vital Signs - 24 hr 08/19/22 08/19/22 08/19/22 17:00 18:00 19:00 Temperature 36.7 C Heart Rate [ Brachial] Heart Rate [ 80 71 73 Monitoring electrodes] Respiratory 19 22 20 Rate Blood Pressure 118/76 126/70 98/67 [Right Brachial artery] O2 Saturation 98 97 98 08/19/22 08/19/22 08/19/22 20:00 21:00 22:00 Temperature 36.5 C Heart Rate [ Brachial] Heart Rate [ 69 62 66 Monitoring electrodes] Respiratory 20 21 17 Rate Blood Pressure 134/85 H 138/87 H 109/57 L [Right Brachial artery] O2 Saturation 98 98 99 08/19/22 08/20/22 08/20/22 23:00 00:00 01:00 Temperature Heart Rate [ Brachial] Heart Rate [ 65 61 66 Monitoring electrodes] Respiratory 21 17 15 Rate Blood Pressure 148/86 H 116/63 118/73 [Right Brachial artery] O2 Saturation 99 98 99 08/20/22 08/20/22 08/20/22 02:00 03:00 04:00 Temperature Heart Rate [ Brachial] Heart Rate [ 54 L 57 L 54 L Monitoring electrodes] Respiratory 15 17 17 Rate Blood Pressure 110/59 L 100/88 H 118/62 [Right Brachial artery] O2 Saturation 97 98 98 08/20/22 08/20/22 08/20/22 05:00 06:00 08:00 Temperature 36.7 C 36.6 C Heart Rate [ Brachial] Heart Rate [ 63 60 55 L Monitoring electrodes] Respiratory 15 15 18 Rate Blood Pressure 129/75 135/79 H 151/74 H [Right Brachial artery] O2 Saturation 100 98 100 08/20/22 08/20/22 13:00 16:06 Temperature 36.9 C 36.6 C Heart Rate [ 61 76 Brachial] Heart Rate [ Monitoring electrodes] Respiratory 16 20 Rate Blood Pressure 136/75 H 140/87 H [Right Brachial artery] O2 Saturation 98 96 Oxygen O2 Source [Without Activity] Room air O2 Source Room air I&O (Last 24 Hrs): Intake and Output Totals x24h 08/18/22 08/19/22 08/20/22 23:59 23:59 23:59 Intake Total 4981.750 3370 Output Total 2200 1575 Balance 2781.750 1795 General: Alert, Oriented x3, Cooperative HEENT: Atraumatic Neuro: Alert Cardiovascular: Regular rate, Normal S1, Normal S2 Respiratory: Chest non-tender, No respiratory distress Abdomen: Normal bowel sounds, Soft Extremities: No edema - Results Results: Laboratory Results WBC 6.3 x10^3/uL (4.8-10.8) 08/20/22 06:05 RBC 4.18 10^6/uL (4.70-6.10) L 08/20/22 06:05 Hgb 12.4 g/dL (14.0-18.0) L 08/20/22 06:05 Hct 36.6 % (42.0-52.0) L 08/20/22 06:05 MCV 87.6 fL (80.0-94.0) 08/20/22 06:05 MCH 29.7 pg (27.0-31.0) 08/20/22 06:05 MCHC 33.9 g/dL (32.0-36.0) 08/20/22 06:05 RDW 12.2 % (12.0-15.0) 08/20/22 06:05 Plt Count 215 10^3/uL (130-450) 08/20/22 06:05 MPV 11.7 fL (7.4-11.4) H 08/20/22 06:05 Neut # (Auto) 4.3 10^3/uL (1.5-6.6) 08/20/22 06:05 Lymph # (Auto) 1.3 10^3/uL (1.5-3.5) L 08/20/22 06:05 [place] # (Auto) 0.5 10^3/uL (0.0-1.0) 08/20/22 06:05 Eos # (Auto) 0.1 10^3/uL (0.0-0.7) 08/20/22 06:05 Baso # (Auto) 0.1 10^3/uL (0.0-0.1) 08/20/22 06:05 Absolute Nucleated RBC 0.00 x10^3/uL 08/20/22 06:05 Nucleated RBC % 0.0 /100WBC 08/20/22 06:05 VBG pH 7.291 (7.31-7.41) L 08/19/22 13:06 VBG pCO2 43.5 mmHg (41-51) 08/19/22 13:06 VBG pO2 84.6 mmHg (25-47) H 08/19/22 13:06 VBG HCO3 20.5 mmol/L (23-28) L 08/19/22 13:06 VBG Total CO2 21.8 mmol/L (24-29) L 08/19/22 13:06 VBG O2 Saturation 95.4 % (60-80) H 08/19/22 13:06 VBG Base Excess -5.9 mmol/L (-2 - +2) L 08/19/22 13:06 Sodium 136 mmol/L (135-145) 08/20/22 06:05 Potassium 3.8 mmol/L (3.5-5.0) 08/20/22 06:05 Chloride 105 mmol/L (101-111) 08/20/22 06:05 Carbon Dioxide 25 mmol/L (21-32) 08/20/22 06:05 Anion Gap 6.0 (6-13) 08/20/22 06:05 BUN 17 mg/dL (6-20) 08/20/22 06:05 Creatinine 0.9 mg/dL (0.6-1.2) 08/20/22 06:05 Estimated GFR (MDRD) 87 (>89) L 08/20/22 06:05 Glucose 159 mg/dL (70-100) H 08/20/22 06:05 POC Whole Bld Glucose 121 mg/dL (70 - 100) H 08/20/22 16:02 Estimat Average Glucose 163 mg/dL (70-100) H 08/20/22 06:05 Hemoglobin A1c % 7.3 % (4.27-6.07) H 08/20/22 06:05 Calcium 8.2 mg/dL (8.5-10.3) L 08/20/22 06:05 Phosphorus 3.0 mg/dL (2.5-4.6) 08/19/22 18:30 Magnesium 1.8 mg/dL (1.7-2.8) 08/19/22 18:30 Total Bilirubin 1.4 mg/dL (0.2-1.0) H 08/19/22 12:02 AST 17 IU/L (10-42) 08/19/22 12:02 ALT 16 IU/L (10-60) 08/19/22 12:02 Alkaline Phosphatase 64 IU/L (42-121) 08/19/22 12:02 Troponin I High Sens 5.4 ng/L (2.3-19.7) 08/19/22 16:00 Total Protein 7.3 g/dL (6.7-8.2) 08/19/22 12:02 Albumin 4.2 g/dL (3.2-5.5) 08/19/22 12:02 Globulin 3.1 g/dL (2.1-4.2) 08/19/22 12:02 Albumin/Globulin Ratio 1.4 (1.0-2.2) 08/19/22 12:02 Triglycerides 33 mg/dL (-149) 08/20/22 06:05 Lipase 33 U/L (22-51) 08/19/22 12:02 Urine Color LIGHT YELLOW 08/19/22 12:20 Urine Clarity CLEAR (CLEAR) 08/19/22 12:20 Urine pH 5.5 PH (5.0-7.5) 08/19/22 12:20 Ur Specific [place] 1.010 (1.002-1.030) 08/19/22 12:20 Urine Protein NEGATIVE mg/dL (NEGATIVE) 08/19/22 12:20 Urine Glucose (UA) >=1000 mg/dL (NEGATIVE) H 08/19/22 12:20 Urine Ketones 15 mg/dL (NEGATIVE) H 08/19/22 12:20 Urine Occult Blood NEGATIVE (NEGATIVE) 08/19/22 12:20 Urine Nitrite NEGATIVE (NEGATIVE) 08/19/22 12:20 Urine Bilirubin NEGATIVE (NEGATIVE) 08/19/22 12:20 Urine Urobilinogen 0.2 (NORMAL) E.U./dL (NORMAL) 08/19/22 12:20 Ur Leukocyte Esterase NEGATIVE (NEGATIVE) 08/19/22 12:20 Ur Microscopic Review NOT INDICATED 08/19/22 12:20 Urine Culture Comments NOT INDICATED 08/19/22 12:20 Nasal Adenovirus (PCR) NOT DETECTED 08/19/22 17:50 Nasal B. parapertussis DNA (PCR) NOT DETECTED 08/19/22 17:50 Nasal Coronavir 229E PCR NOT DETECTED 08/19/22 17:50 Nasal Coronavir HKU1 PCR NOT DETECTED 08/19/22 17:50 Nasal Coronavir NL63 PCR NOT DETECTED 08/19/22 17:50 Nasal Coronavir OC43 PCR NOT DETECTED 08/19/22 17:50 Nasal Enterovir/Rhinovir PCR NOT DETECTED 08/19/22 17:50 Nasal Influenza B PCR NOT DETECTED 08/19/22 17:50 Nasal Influenza A PCR NOT DETECTED 08/19/22 17:50 Nasal Parainfluen 1 PCR NOT DETECTED 08/19/22 17:50 Nasal Parainfluen 2 PCR NOT DETECTED 08/19/22 17:50 Nasal Parainfluen 3 PCR NOT DETECTED 08/19/22 17:50 Nasal Parainfluen 4 PCR NOT DETECTED 08/19/22 17:50 Nasal RSV (PCR) NOT DETECTED 08/19/22 17:50 Nasal Screen MRSA (PCR) NEGATIVE (NEGATIVE) 08/19/22 14:30 Nasal B.pertussis DNA PCR NOT DETECTED 08/19/22 17:50 Nasal C.pneumoniae (PCR) NOT DETECTED 08/19/22 17:50 Severo Human Metapneumo PCR NOT DETECTED 08/19/22 17:50 Nasal M.pneumoniae (PCR) NOT DETECTED 08/19/22 17:50 Nasal SARS-CoV-2 (PCR) NOT DETECTED 08/19/22 17:50 Serum Ketones NEGATIVE (NEGATIVE) 08/19/22 21:56 - Procedures Procedures: Procedures CENTRAL VENOUS CATHETER PLACEMENT WITH GUIDANCE (11/03/14) ABX Reporting Has patient been on IV antibiotics over the past 48 hours?: No
[2022-08-20] MEDS ORDERED: INSULIN LISPRO 300 UNIT/3 ML PEN SUBQ SCH (17:00)
[2022-08-20] MEDS ORDERED: IBUPROFEN 400 MG TABLET PO ONE (18:00)
[2022-08-20] MEDS: TEMAZEPAM 15 MG CAPSULE PO PRN (22:12)
[2022-08-21] MEDS: SODIUM CHLORIDE FLUSH 0.9% 10 ML SYRINGE IVP SCH ×3 (00:43→17:13)
[2022-08-21 05:47] LABS: CALCIUM 8.2 mg/dL (8.5-10.3); CREATININE 0.9 mg/dL (0.6-1.2); POTASSIUM 3.7 mmol/L (3.5-5.0)
[2022-08-21] MEDS: ENOXAPARIN 40 MG/0.4 ML SYRINGE SUBQ SCH (08:08)
[2022-08-21] MEDS: DONEPEZIL 5 MG TABLET PO SCH (08:08)
[2022-08-21] MEDS: FAMOTIDINE 20 MG/2 ML VIAL IVP SCH (08:09)
[2022-08-21] MEDS: TAMSULOSIN 0.4 MG CAPSULE PO SCH (08:09)
[2022-08-21] MEDS: INSULIN LISPRO 300 UNIT/3 ML PEN SUBQ SCH ×7 (08:15→22:04)
[2022-08-21] MEDS: FAMOTIDINE 20 MG TABLET PO SCH ×2 (08:49→22:07)
[2022-08-21] MEDS: INSULIN GLARGINE-YFGN 300 UNIT/3 ML PEN SUBQ SCH ×2 (08:50→22:04)
[2022-08-21] MEDS: SODIUM CHLORIDE FLUSH 0.9% 10 ML SYRINGE IVP PRN (11:19)
[2022-08-21] MEDS: ONDANSETRON 4 MG/2 ML VIAL IVP PRN ×2 (11:19→20:04)
--- NOTE | 2022-08-21 16:32 | PROVIDER PROGRESS NOTE ---
Assessment/Plan - Problem List (1) Diabetic ketoacidosis Qualifiers: Diabetes mellitus type: type 1 Diabetes mellitus complication detail: without coma Qualified Code(s): E10.10 - Type 1 diabetes mellitus with ketoacidosis without coma Assessment/Plan: Qualifiers: Diabetes mellitus type: type 1 Diabetes mellitus complication detail: without coma Qualified Code(s): E10.10 - Type 1 diabetes mellitus with ketoacidosis without coma Assessment/Plan: Conclusion/Plan: The patient's urinalysis is negative for UTI and chest x-ray unremarkable. Last time he had a viral syndrome, which gave him DKA. There is also been a history of him not using his insulin pump correctly, which could be the cause for this current DKA episode Plan: Admit to the ICU, started DKA protocol with insulin drip, glu checks, hypoglycemia protocol Stop his insulin pump from infusing. Diabetic RN to see in am before his pump is resumed. Continue with as needed IV antiemetics, and will order a clear liquid diet, to be advanced as tolerated. Continue with IV saline, change to iv containing D5 with NS when glu <200. Follow his serum ketones, pH, electrolytes closely and keep correcting I will order a PCR respiratory panel to check for viral syndrome I will order troponins x2 to rule out an [place] as the cause of this DKA August 20, 2022-patient is off of insulin drip and is getting Lantus 20 units subcu twice daily along with nutritional lispro and sliding scale lispro. We will not use his pump here as unclear whether he is not doing things properly or what is going on with it and will plan to discharge on subcu insulin and he can follow- up with his outreach educator as an outpatient along with his primary care provider August 21, 2022-patient is currently on subcu Lantus with titration and also mealtime coverage with lispro and correction dosing of lispro. He has had poor appetite today and has felt nauseous with an episode of vomiting. Patient was started on Reglan IV as needed Qualifiers: Diabetes mellitus type: type 1 Diabetes mellitus complication detail: without coma Qualified Code(s): E10.10 - Type 1 diabetes mellitus with ketoacidosis without coma (2) Hyperkalemia Conclusion/Plan: This is from his serum being hyperglycemic and acidotic. Plan: As we give insulin and Promote glucose entering the cell, the potassium will also enter the cells and serum K should correct in parallel. August 20, 2022, resolved and will monitor (3) SAMUEL (acute kidney injury) Conclusion/Plan: He presents with an elevated BUN and creatinine. All labs were reviewed. He is dehydrated by virtue of being hyperglycemic and hyperosmotic, which caused diuresis. Plan: Avoid nephrotoxins Giving aggressive saline hydration should also help the BUN and creatinine recover Follow BMP closely - Current Meds Current Meds: Current Medications Generic Name Dose Route Start Last Admin Trade Name Freq PRN Reason Stop Dose Admin Donepezil HCl 10 mg 08/20/22 09:00 08/21/22 08:08 Donepezil 5 Mg Tablet PO 10 mg DAILY SRIDEVI Administration Enoxaparin Sodium 40 mg 08/20/22 09:00 08/21/22 08:08 Enoxaparin 40 Mg/0.4 Ml Syringe SUBQ 40 mg DAILY SRIDEVI Administration Famotidine 20 mg 08/21/22 09:00 08/21/22 08:49 Famotidine 20 Mg Tablet PO Not Given BID SRIDEVI Insulin Glargine-yfgn 20 unit 08/20/22 10:30 08/21/22 08:50 Insulin Glargine-Yfgn 300 Unit/3 Ml Pen SUBQ 10 unit BID SRIDEVI Administration Insulin Human Lispro 2 - 10 unit 08/20/22 08:00 08/21/22 12:06 Insulin Lispro 300 Unit/3 Ml Pen SUBQ Not Given 0800,1200,1700,2100 [facility] Protocol Insulin Human Lispro 5 unit 08/20/22 17:00 08/21/22 12:07 Insulin Lispro 300 Unit/3 Ml Pen SUBQ 3 unit TIDWM SRIDEVI Administration Protocol Ondansetron HCl 4 mg 08/19/22 13:02 08/21/22 11:19 Ondansetron 4 Mg/2 Ml Vial IVP 4 mg Q6HR PRN Administration Nausea / Vomiting Sodium Chloride 10 ml 08/19/22 17:00 08/21/22 08:11 Sodium Chloride Flush 0.9% 10 Ml Syringe IVP 10 ml 0100,0900,1700 SRIDEVI Administration Sodium Chloride 10 ml 08/19/22 13:02 08/21/22 11:19 Sodium Chloride Flush 0.9% 10 Ml Syringe IVP 10 ml PRN PRN Administration NEEDED PER PROVIDER ORDERS Tamsulosin HCl 0.4 mg 08/20/22 09:00 08/21/22 08:09 Tamsulosin 0.4 Mg Capsule PO 0.4 mg DAILY SRIDEVI Administration Temazepam 15 mg 08/20/22 22:04 08/20/22 22:12 Temazepam 15 Mg Capsule PO 15 mg QPM PRN Administration Insomnia - Lab Result Fish Bone Diagrams: 08/20/22 06:05 08/21/22 05:20 - Additional Planning My Orders: My Active Orders 08/20/22 17:00 Insulin Lispro [Humalog Kwikpen U-100] 5 unit SUBQ TIDWM 08/21/22 09:00 Famotidine [Pepcid] 20 mg PO BID 08/21/22 13:25 Metoclopramide Inj [Reglan Inj] 5 mg IVP Q6HR PRN Subjective - Subjective Patient Reports: Nausea Objective Vital Signs: Vital Signs - 24 hr 08/20/22 08/21/22 08/21/22 20:12 00:44 05:26 Temperature 36.5 C 36.3 C L 36.3 C L Heart Rate [ 61 53 L 55 L Brachial] Respiratory 20 16 16 Rate Blood Pressure 141/76 H 127/76 149/75 H [Right Brachial artery] O2 Saturation 96 97 98 08/21/22 08/21/22 08/21/22 07:31 11:47 12:59 Temperature 36.3 C L 36.5 C Heart Rate [ 67 49 L 52 L Brachial] Respiratory 18 16 Rate Blood Pressure 130/79 145/83 H [Right Brachial artery] O2 Saturation 96 96 100 08/21/22 15:46 Temperature 36.4 C L Heart Rate [ 50 L Brachial] Respiratory 20 Rate Blood Pressure 157/67 H [Right Brachial artery] O2 Saturation 100 Oxygen O2 Source [Without Activity] Room air O2 Source Room air I&O (Last 24 Hrs): Intake and Output Totals x24h 08/19/22 08/20/22 08/21/22 23:59 23:59 23:59 Intake Total 4981.750 4610 500 Output Total 2200 1575 300 Balance 2781.750 3035 200 General: Alert, Oriented x3 HEENT: Atraumatic Neuro: Alert Cardiovascular: Regular rate, Normal S1, Normal S2 Abdomen: Normal bowel sounds, Soft Extremities: No edema - Results Results: Laboratory Results WBC 6.3 x10^3/uL (4.8-10.8) 08/20/22 06:05 RBC 4.18 10^6/uL (4.70-6.10) L 08/20/22 06:05 Hgb 12.4 g/dL (14.0-18.0) L 08/20/22 06:05 Hct 36.6 % (42.0-52.0) L 08/20/22 06:05 MCV 87.6 fL (80.0-94.0) 08/20/22 06:05 MCH 29.7 pg (27.0-31.0) 08/20/22 06:05 MCHC 33.9 g/dL (32.0-36.0) 08/20/22 06:05 RDW 12.2 % (12.0-15.0) 08/20/22 06:05 Plt Count 215 10^3/uL (130-450) 08/20/22 06:05 MPV 11.7 fL (7.4-11.4) H 08/20/22 06:05 Neut # (Auto) 4.3 10^3/uL (1.5-6.6) 08/20/22 06:05 Lymph # (Auto) 1.3 10^3/uL (1.5-3.5) L 08/20/22 06:05 [place] # (Auto) 0.5 10^3/uL (0.0-1.0) 08/20/22 06:05 Eos # (Auto) 0.1 10^3/uL (0.0-0.7) 08/20/22 06:05 Baso # (Auto) 0.1 10^3/uL (0.0-0.1) 08/20/22 06:05 Absolute Nucleated RBC 0.00 x10^3/uL 08/20/22 06:05 Nucleated RBC % 0.0 /100WBC 08/20/22 06:05 VBG pH 7.291 (7.31-7.41) L 08/19/22 13:06 VBG pCO2 43.5 mmHg (41-51) 08/19/22 13:06 VBG pO2 84.6 mmHg (25-47) H 08/19/22 13:06 VBG HCO3 20.5 mmol/L (23-28) L 08/19/22 13:06 VBG Total CO2 21.8 mmol/L (24-29) L 08/19/22 13:06 VBG O2 Saturation 95.4 % (60-80) H 08/19/22 13:06 VBG Base Excess -5.9 mmol/L (-2 - +2) L 08/19/22 13:06 Sodium 138 mmol/L (135-145) 08/21/22 05:20 Potassium 3.7 mmol/L (3.5-5.0) 08/21/22 05:20 Chloride 106 mmol/L (101-111) 08/21/22 05:20 Carbon Dioxide 27 mmol/L (21-32) 08/21/22 05:20 Anion Gap 5.0 (6-13) L 08/21/22 05:20 BUN 15 mg/dL (6-20) 08/21/22 05:20 Creatinine 0.9 mg/dL (0.6-1.2) 08/21/22 05:20 Estimated GFR (MDRD) 87 (>89) L 08/21/22 05:20 Glucose 122 mg/dL (70-100) H 08/21/22 05:20 POC Whole Bld Glucose 206 mg/dL (70 - 100) H 08/21/22 13:56 Estimat Average Glucose 163 mg/dL (70-100) H 08/20/22 06:05 Hemoglobin A1c % 7.3 % (4.27-6.07) H 08/20/22 06:05 Calcium 8.2 mg/dL (8.5-10.3) L 08/21/22 05:20 Phosphorus 3.0 mg/dL (2.5-4.6) 08/19/22 18:30 Magnesium 1.8 mg/dL (1.7-2.8) 08/19/22 18:30 Total Bilirubin 1.4 mg/dL (0.2-1.0) H 08/19/22 12:02 AST 17 IU/L (10-42) 08/19/22 12:02 ALT 16 IU/L (10-60) 08/19/22 12:02 Alkaline Phosphatase 64 IU/L (42-121) 08/19/22 12:02 Troponin I High Sens 5.4 ng/L (2.3-19.7) 08/19/22 16:00 Total Protein 7.3 g/dL (6.7-8.2) 08/19/22 12:02 Albumin 4.2 g/dL (3.2-5.5) 08/19/22 12:02 Globulin 3.1 g/dL (2.1-4.2) 08/19/22 12:02 Albumin/Globulin Ratio 1.4 (1.0-2.2) 08/19/22 12:02 Triglycerides 33 mg/dL (-149) 08/20/22 06:05 Lipase 33 U/L (22-51) 08/19/22 12:02 Urine Color LIGHT YELLOW 08/19/22 12:20 Urine Clarity CLEAR (CLEAR) 08/19/22 12:20 Urine pH 5.5 PH (5.0-7.5) 08/19/22 12:20 Ur Specific [place] 1.010 (1.002-1.030) 08/19/22 12:20 Urine Protein NEGATIVE mg/dL (NEGATIVE) 08/19/22 12:20 Urine Glucose (UA) >=1000 mg/dL (NEGATIVE) H 08/19/22 12:20 Urine Ketones 15 mg/dL (NEGATIVE) H 08/19/22 12:20 Urine Occult Blood NEGATIVE (NEGATIVE) 08/19/22 12:20 Urine Nitrite NEGATIVE (NEGATIVE) 08/19/22 12:20 Urine Bilirubin NEGATIVE (NEGATIVE) 08/19/22 12:20 Urine Urobilinogen 0.2 (NORMAL) E.U./dL (NORMAL) 08/19/22 12:20 Ur Leukocyte Esterase NEGATIVE (NEGATIVE) 08/19/22 12:20 Ur Microscopic Review NOT INDICATED 08/19/22 12:20 Urine Culture Comments NOT INDICATED 08/19/22 12:20 Nasal Adenovirus (PCR) NOT DETECTED 08/19/22 17:50 Nasal B. parapertussis DNA (PCR) NOT DETECTED 08/19/22 17:50 Nasal Coronavir 229E PCR NOT DETECTED 08/19/22 17:50 Nasal Coronavir HKU1 PCR NOT DETECTED 08/19/22 17:50 Nasal Coronavir NL63 PCR NOT DETECTED 08/19/22 17:50 Nasal Coronavir OC43 PCR NOT DETECTED 08/19/22 17:50 Nasal Enterovir/Rhinovir PCR NOT DETECTED 08/19/22 17:50 Nasal Influenza B PCR NOT DETECTED 08/19/22 17:50 Nasal Influenza A PCR NOT DETECTED 08/19/22 17:50 Nasal Parainfluen 1 PCR NOT DETECTED 08/19/22 17:50 Nasal Parainfluen 2 PCR NOT DETECTED 08/19/22 17:50 Nasal Parainfluen 3 PCR NOT DETECTED 08/19/22 17:50 Nasal Parainfluen 4 PCR NOT DETECTED 08/19/22 17:50 Nasal RSV (PCR) NOT DETECTED 08/19/22 17:50 Nasal Screen MRSA (PCR) NEGATIVE (NEGATIVE) 08/19/22 14:30 Nasal B.pertussis DNA PCR NOT DETECTED 08/19/22 17:50 Nasal C.pneumoniae (PCR) NOT DETECTED 08/19/22 17:50 Severo Human Metapneumo PCR NOT DETECTED 08/19/22 17:50 Nasal M.pneumoniae (PCR) NOT DETECTED 08/19/22 17:50 Nasal SARS-CoV-2 (PCR) NOT DETECTED 08/19/22 17:50 Serum Ketones NEGATIVE (NEGATIVE) 08/19/22 21:56 - Procedures Procedures: Procedures CENTRAL VENOUS CATHETER PLACEMENT WITH GUIDANCE (11/03/14) ABX Reporting Has patient been on IV antibiotics over the past 48 hours?: No
[2022-08-21] MEDS: METOCLOPRAMIDE 10 MG/2 ML VIAL IVP PRN (22:41)
[2022-08-21] MEDS: TEMAZEPAM 15 MG CAPSULE PO PRN (22:52)
[2022-08-22] MEDS: SODIUM CHLORIDE FLUSH 0.9% 10 ML SYRINGE IVP SCH ×3 (01:38→17:01)
[2022-08-22] MEDS: INSULIN GLARGINE-YFGN 300 UNIT/3 ML PEN SUBQ SCH ×2 (08:08→20:45)
[2022-08-22] MEDS: INSULIN LISPRO 300 UNIT/3 ML PEN SUBQ SCH ×7 (08:09→20:47)
[2022-08-22] MEDS: DONEPEZIL 5 MG TABLET PO SCH (08:10)
[2022-08-22] MEDS: FAMOTIDINE 20 MG TABLET PO SCH ×2 (08:10→20:45)
[2022-08-22] MEDS: TAMSULOSIN 0.4 MG CAPSULE PO SCH (08:10)
[2022-08-22] MEDS: ENOXAPARIN 40 MG/0.4 ML SYRINGE SUBQ SCH (08:10)
[2022-08-22 09:07] LABS: BUN - BLOOD UREA NITROGEN 16 mg/dL (6-20); CALCIUM 8.6 mg/dL (8.5-10.3); CARBON DIOXIDE - CO2 26 mmol/L (21-32); CHLORIDE 100 mmol/L (101-111); GFR - MDRD 77 (>89); GLUCOSE 436 mg/dL (70-100); IONIZED CALCIUM IF INDICATED NO; POTASSIUM 3.6 mmol/L (3.5-5.0); SODIUM 133 mmol/L (135-145)
[2022-08-22] MEDS: METOCLOPRAMIDE 10 MG/2 ML VIAL IVP PRN (10:56)
[2022-08-22] MEDS ORDERED: INSULIN GLARGINE-YFGN 300 UNIT/3 ML PEN SUBQ ONE (11:00)
[2022-08-22] MEDS: METOCLOPRAMIDE 10 MG TABLET PO SCH ×3 (13:38→20:48)
--- NOTE | 2022-08-22 14:35 | PROVIDER PROGRESS NOTE ---
Assessment/Plan - Problem List (1) Diabetic ketoacidosis Qualifiers: Diabetes mellitus type: type 1 Diabetes mellitus complication detail: without coma Qualified Code(s): E10.10 - Type 1 diabetes mellitus with ketoacidosis without coma Assessment/Plan: Qualifiers: Assessment/Plan: Qualifiers: Diabetes mellitus type: type 1 Diabetes mellitus complication detail: without coma Qualified Code(s): E10.10 - Type 1 diabetes mellitus with ketoacidosis without coma Assessment/Plan: Conclusion/Plan: The patient's urinalysis is negative for UTI and chest x-ray unremarkable. Last time he had a viral syndrome, which gave him DKA. There is also been a history of him not using his insulin pump correctly, which could be the cause for this current DKA episode Plan: Admit to the ICU, started DKA protocol with insulin drip, glu checks, hypoglycemia protocol Stop his insulin pump from infusing. Diabetic RN to see in am before his pump is resumed. Continue with as needed IV antiemetics, and will order a clear liquid diet, to be advanced as tolerated. Continue with IV saline, change to iv containing D5 with NS when glu <200. Follow his serum ketones, pH, electrolytes closely and keep correcting I will order a PCR respiratory panel to check for viral syndrome I will order troponins x2 to rule out an [place] as the cause of this DKA August 20, 2022-patient is off of insulin drip and is getting Lantus 20 units subcu twice daily along with nutritional lispro and sliding scale lispro. We will not use his pump here as unclear whether he is not doing things properly or what is going on with it and will plan to discharge on subcu insulin and he can follow- up with his tobacco educator as an outpatient along with his primary care provider August 21, 2022-patient is currently on subcu Lantus with titration and also mealtime coverage with lispro and correction dosing of lispro. He has had poor appetite today and has felt nauseous with an episode of vomiting. Patient was started on Reglan IV as needed August 22, 2022-patient's blood sugar has shot up to 365 this morning. He does say he was diagnosed with gastroparesis so I think this may be an influencing factor with difficult blood sugar control. Will do scheduled Reglan before meals and at bedtime 5 mg p.o. and monitor blood sugars we have upped his Lantus to 20 units units twice daily at this time due to his elevated blood sugar. We will give correction dose insulin and monitor to see how much he actually eats today and per protocol will adjust his mealtime insulin dosing. Qualifiers: Diabetes mellitus type: type 1 Diabetes mellitus complication detail: without coma Qualified Code(s): E10.10 - Type 1 diabetes mellitus with ketoacidosis without coma (2) Hyperkalemia Conclusion/Plan: This is from his serum being hyperglycemic and acidotic. Plan: As we give insulin and Promote glucose entering the cell, the potassium will also enter the cells and serum K should correct in parallel. August 20, 2022, resolved and will monitor (3) SAMUEL (acute kidney injury) Conclusion/Plan: He presents with an elevated BUN and creatinine. All labs were reviewed. He is dehydrated by virtue of being hyperglycemic and hyperosmotic, which caused diuresis. Plan: Avoid nephrotoxins Giving aggressive saline hydration should also help the BUN and creatinine recover Follow BMP closely - Current Meds Current Meds: Current Medications Generic Name Dose Route Start Last Admin Trade Name Machelle PRN Reason Stop Dose Admin Donepezil HCl 10 mg 08/20/22 09:00 08/22/22 08:10 Donepezil 5 Mg Tablet PO 10 mg DAILY SRIDEVI Administration Enoxaparin Sodium 40 mg 08/20/22 09:00 08/22/22 08:10 Enoxaparin 40 Mg/0.4 Ml Syringe SUBQ 40 mg DAILY SRIDEVI Administration Famotidine 20 mg 08/21/22 09:00 08/22/22 08:10 Famotidine 20 Mg Tablet PO 20 mg BID SRIDEVI Administration Insulin Human Lispro 2 - 10 unit 08/20/22 08:00 08/22/22 12:25 Insulin Lispro 300 Unit/3 Ml Pen SUBQ 6 unit 0800,1200,1700,2100 SRIDEVI Administration Protocol Insulin Human Lispro 3 unit 08/21/22 17:00 08/22/22 12:12 Insulin Lispro 300 Unit/3 Ml Pen SUBQ Not Given TIDWM SRIDEVI Protocol Metoclopramide HCl 5 mg 08/22/22 13:00 08/22/22 13:38 Metoclopramide 10 Mg Tablet PO 5 mg ACHS SRIDEVI Administration Ondansetron HCl 4 mg 08/19/22 13:02 08/21/22 20:04 Ondansetron 4 Mg/2 Ml Vial IVP 4 mg Q6HR PRN Administration Nausea / Vomiting Sodium Chloride 10 ml 08/19/22 17:00 08/22/22 08:10 Sodium Chloride Flush 0.9% 10 Ml Syringe IVP 10 ml 0100,0900,1700 SRIDEVI Administration Sodium Chloride 10 ml 08/19/22 13:02 08/21/22 11:19 Sodium Chloride Flush 0.9% 10 Ml Syringe IVP 10 ml PRN PRN Administration NEEDED PER PROVIDER ORDERS Tamsulosin HCl 0.4 mg 08/20/22 09:00 08/22/22 08:10 Tamsulosin 0.4 Mg Capsule PO 0.4 mg DAILY SRIDEVI Administration Temazepam 15 mg 08/20/22 22:04 08/21/22 22:52 Temazepam 15 Mg Capsule PO 15 mg QPM PRN Administration Insomnia - Lab Result Fish Bone Diagrams: 08/20/22 06:05 08/22/22 08:52 - Additional Planning My Orders: My Active Orders 08/21/22 17:00 Insulin Lispro [Humalog Kwikpen U-100] 3 unit SUBQ TIDWM 08/22/22 13:00 Metoclopramide [Reglan] 5 mg PO ACHS 08/22/22 21:00 Insulin Glargine-Yfgn [Semglee] 20 unit SUBQ BID 08/23/22 05:00 BMP, RFLX TO IONIZED CA IF [CHEM] DAILYLAB 08/24/22 05:00 BMP, RFLX TO IONIZED CA IF [CHEM] DAILYLAB 08/25/22 05:00 BMP, RFLX TO IONIZED CA IF [CHEM] DAILYLAB 08/26/22 05:00 BMP, RFLX TO IONIZED CA IF [CHEM] DAILYLAB 08/27/22 05:00 BMP, RFLX TO IONIZED CA IF [CHEM] DAILYLAB Subjective - Subjective Patient Reports: Other (Patient is concerned about his elevated blood sugar today. Yesterday he did not eat very much. He does admit to having a history of gastroparesis but is not on any medication for it.) Objective Vital Signs: Vital Signs - 24 hr 08/21/22 08/21/22 08/21/22 15:46 20:21 23:45 Temperature 36.4 C L 36.3 C L 36.3 C L Heart Rate [ 50 L 55 L 64 Brachial] Respiratory 20 20 18 Rate Blood Pressure 157/67 H 150/57 H 133/76 H [Right Brachial artery] O2 Saturation 100 100 95 08/22/22 08/22/22 08/22/22 05:20 08:35 12:56 Temperature 36.2 C L 36.5 C 36.6 C Heart Rate [ 59 L 65 63 Brachial] Respiratory 18 18 18 Rate Blood Pressure 141/87 H 139/81 H 149/75 H [Right Brachial artery] O2 Saturation 97 99 98 Oxygen O2 Source [Without Activity] Room air O2 Source Room air I&O (Last 24 Hrs): Intake and Output Totals x24h 08/20/22 08/21/22 08/22/22 23:59 23:59 23:59 Intake Total 4610 600 620 Output Total 1575 550 300 Balance 3035 50 320 General: Alert, Oriented x3 HEENT: Atraumatic Neck: Supple Neuro: Alert Cardiovascular: Regular rate, Normal S1, Normal S2 Respiratory: Breath sounds nml Abdomen: Normal bowel sounds Extremities: No edema Skin: No rashes - Results Results: Laboratory Results WBC 6.3 x10^3/uL (4.8-10.8) 08/20/22 06:05 RBC 4.18 10^6/uL (4.70-6.10) L 08/20/22 06:05 Hgb 12.4 g/dL (14.0-18.0) L 08/20/22 06:05 Hct 36.6 % (42.0-52.0) L 08/20/22 06:05 MCV 87.6 fL (80.0-94.0) 08/20/22 06:05 MCH 29.7 pg (27.0-31.0) 08/20/22 06:05 MCHC 33.9 g/dL (32.0-36.0) 08/20/22 06:05 RDW 12.2 % (12.0-15.0) 08/20/22 06:05 Plt Count 215 10^3/uL (130-450) 08/20/22 06:05 MPV 11.7 fL (7.4-11.4) H 08/20/22 06:05 Neut # (Auto) 4.3 10^3/uL (1.5-6.6) 08/20/22 06:05 Lymph # (Auto) 1.3 10^3/uL (1.5-3.5) L 08/20/22 06:05 [place] # (Auto) 0.5 10^3/uL (0.0-1.0) 08/20/22 06:05 Eos # (Auto) 0.1 10^3/uL (0.0-0.7) 08/20/22 06:05 Baso # (Auto) 0.1 10^3/uL (0.0-0.1) 08/20/22 06:05 Absolute Nucleated RBC 0.00 x10^3/uL 08/20/22 06:05 Nucleated RBC % 0.0 /100WBC 08/20/22 06:05 VBG pH 7.291 (7.31-7.41) L 08/19/22 13:06 VBG pCO2 43.5 mmHg (41-51) 08/19/22 13:06 VBG pO2 84.6 mmHg (25-47) H 08/19/22 13:06 VBG HCO3 20.5 mmol/L (23-28) L 08/19/22 13:06 VBG Total CO2 21.8 mmol/L (24-29) L 08/19/22 13:06 VBG O2 Saturation 95.4 % (60-80) H 08/19/22 13:06 VBG Base Excess -5.9 mmol/L (-2 - +2) L 08/19/22 13:06 Sodium 133 mmol/L (135-145) L 08/22/22 08:52 Potassium 3.6 mmol/L (3.5-5.0) 08/22/22 08:52 Chloride 100 mmol/L (101-111) L 08/22/22 08:52 Carbon Dioxide 26 mmol/L (21-32) 08/22/22 08:52 Anion Gap 7.0 (6-13) 08/22/22 08:52 BUN 16 mg/dL (6-20) 08/22/22 08:52 Creatinine 1.0 mg/dL (0.6-1.2) 08/22/22 08:52 Estimated GFR (MDRD) 77 (>89) L 08/22/22 08:52 Glucose 436 mg/dL (70-100) H 08/22/22 08:52 POC Whole Bld Glucose 273 mg/dL (70 - 100) H 08/22/22 11:28 Estimat Average Glucose 163 mg/dL (70-100) H 08/20/22 06:05 Hemoglobin A1c % 7.3 % (4.27-6.07) H 08/20/22 06:05 Calcium 8.6 mg/dL (8.5-10.3) 08/22/22 08:52 Ionized Calcium NO 08/22/22 08:52 Phosphorus 3.0 mg/dL (2.5-4.6) 08/19/22 18:30 Magnesium 1.8 mg/dL (1.7-2.8) 08/19/22 18:30 Total Bilirubin 1.4 mg/dL (0.2-1.0) H 08/19/22 12:02 AST 17 IU/L (10-42) 08/19/22 12:02 ALT 16 IU/L (10-60) 08/19/22 12:02 Alkaline Phosphatase 64 IU/L (42-121) 08/19/22 12:02 Troponin I High Sens 5.4 ng/L (2.3-19.7) 08/19/22 16:00 Total Protein 7.3 g/dL (6.7-8.2) 08/19/22 12:02 Albumin 4.2 g/dL (3.2-5.5) 08/19/22 12:02 Globulin 3.1 g/dL (2.1-4.2) 08/19/22 12:02 Albumin/Globulin Ratio 1.4 (1.0-2.2) 08/19/22 12:02 Triglycerides 33 mg/dL (-149) 08/20/22 06:05 Lipase 33 U/L (22-51) 08/19/22 12:02 Urine Color LIGHT YELLOW 08/19/22 12:20 Urine Clarity CLEAR (CLEAR) 08/19/22 12:20 Urine pH 5.5 PH (5.0-7.5) 08/19/22 12:20 Ur Specific [place] 1.010 (1.002-1.030) 08/19/22 12:20 Urine Protein NEGATIVE mg/dL (NEGATIVE) 08/19/22 12:20 Urine Glucose (UA) >=1000 mg/dL (NEGATIVE) H 08/19/22 12:20 Urine Ketones 15 mg/dL (NEGATIVE) H 08/19/22 12:20 Urine Occult Blood NEGATIVE (NEGATIVE) 08/19/22 12:20 Urine Nitrite NEGATIVE (NEGATIVE) 08/19/22 12:20 Urine Bilirubin NEGATIVE (NEGATIVE) 08/19/22 12:20 Urine Urobilinogen 0.2 (NORMAL) E.U./dL (NORMAL) 08/19/22 12:20 Ur Leukocyte Esterase NEGATIVE (NEGATIVE) 08/19/22 12:20 Ur Microscopic Review NOT INDICATED 08/19/22 12:20 Urine Culture Comments NOT INDICATED 08/19/22 12:20 Nasal Adenovirus (PCR) NOT DETECTED 08/19/22 17:50 Nasal B. parapertussis DNA (PCR) NOT DETECTED 08/19/22 17:50 Nasal Coronavir 229E PCR NOT DETECTED 08/19/22 17:50 Nasal Coronavir HKU1 PCR NOT DETECTED 08/19/22 17:50 Nasal Coronavir NL63 PCR NOT DETECTED 08/19/22 17:50 Nasal Coronavir OC43 PCR NOT DETECTED 08/19/22 17:50 Nasal Enterovir/Rhinovir PCR NOT DETECTED 08/19/22 17:50 Nasal Influenza B PCR NOT DETECTED 08/19/22 17:50 Nasal Influenza A PCR NOT DETECTED 08/19/22 17:50 Nasal Parainfluen 1 PCR NOT DETECTED 08/19/22 17:50 Nasal Parainfluen 2 PCR NOT DETECTED 08/19/22 17:50 Nasal Parainfluen 3 PCR NOT DETECTED 08/19/22 17:50 Nasal Parainfluen 4 PCR NOT DETECTED 08/19/22 17:50 Nasal RSV (PCR) NOT DETECTED 08/19/22 17:50 Nasal Screen MRSA (PCR) NEGATIVE (NEGATIVE) 08/19/22 14:30 Nasal B.pertussis DNA PCR NOT DETECTED 08/19/22 17:50 Nasal C.pneumoniae (PCR) NOT DETECTED 08/19/22 17:50 Severo Human Metapneumo PCR NOT DETECTED 08/19/22 17:50 Nasal M.pneumoniae (PCR) NOT DETECTED 08/19/22 17:50 Nasal SARS-CoV-2 (PCR) NOT DETECTED 08/19/22 17:50 Serum Ketones NEGATIVE (NEGATIVE) 08/19/22 21:56 - Procedures Procedures: Procedures CENTRAL VENOUS CATHETER PLACEMENT WITH GUIDANCE (11/03/14) ABX Reporting Has patient been on IV antibiotics over the past 48 hours?: No
--- NOTE | 2022-08-22 14:41 | PROVIDER PROGRESS NOTE ---
Assessment/Plan - Problem List (1) Diabetic ketoacidosis Qualifiers: Diabetes mellitus type: type 1 Diabetes mellitus complication detail: without coma Qualified Code(s): E10.10 - Type 1 diabetes mellitus with ketoacidosis without coma - Current Meds Current Meds: Current Medications Generic Name Dose Route Start Last Admin Trade Name Freq PRN Reason Stop Dose Admin Donepezil HCl 10 mg 08/20/22 09:00 08/22/22 08:10 Donepezil 5 Mg Tablet PO 10 mg DAILY SRIDEVI Administration Enoxaparin Sodium 40 mg 08/20/22 09:00 08/22/22 08:10 Enoxaparin 40 Mg/0.4 Ml Syringe SUBQ 40 mg DAILY SRIDEVI Administration Famotidine 20 mg 08/21/22 09:00 08/22/22 08:10 Famotidine 20 Mg Tablet PO 20 mg BID SRIDEVI Administration Insulin Human Lispro 2 - 10 unit 08/20/22 08:00 08/22/22 12:25 Insulin Lispro 300 Unit/3 Ml Pen SUBQ 6 unit 0800,1200,1700,2100 SRIDEVI Administration Protocol Insulin Human Lispro 3 unit 08/21/22 17:00 08/22/22 12:12 Insulin Lispro 300 Unit/3 Ml Pen SUBQ Not Given TIDWM SRIDEVI Protocol Metoclopramide HCl 5 mg 08/22/22 13:00 08/22/22 13:38 Metoclopramide 10 Mg Tablet PO 5 mg ACHS SRIDEVI Administration Ondansetron HCl 4 mg 08/19/22 13:02 08/21/22 20:04 Ondansetron 4 Mg/2 Ml Vial IVP 4 mg Q6HR PRN Administration Nausea / Vomiting Sodium Chloride 10 ml 08/19/22 17:00 08/22/22 08:10 Sodium Chloride Flush 0.9% 10 Ml Syringe IVP 10 ml 0100,0900,1700 SRIDEVI Administration Sodium Chloride 10 ml 08/19/22 13:02 08/21/22 11:19 Sodium Chloride Flush 0.9% 10 Ml Syringe IVP 10 ml PRN PRN Administration NEEDED PER PROVIDER ORDERS Tamsulosin HCl 0.4 mg 08/20/22 09:00 08/22/22 08:10 Tamsulosin 0.4 Mg Capsule PO 0.4 mg DAILY SRIDEVI Administration Temazepam 15 mg 08/20/22 22:04 08/21/22 22:52 Temazepam 15 Mg Capsule PO 15 mg QPM PRN Administration Insomnia - Lab Result Fish Bone Diagrams: 08/20/22 06:05 08/22/22 08:52 - Additional Planning My Orders: My Active Orders 08/21/22 17:00 Insulin Lispro [Humalog Kwikpen U-100] 3 unit SUBQ TIDWM 08/22/22 13:00 Metoclopramide [Reglan] 5 mg PO ACHS 08/22/22 21:00 Insulin Glargine-Yfgn [Semglee] 20 unit SUBQ BID 08/23/22 05:00 BMP, RFLX TO IONIZED CA IF [CHEM] DAILYLAB 08/24/22 05:00 BMP, RFLX TO IONIZED CA IF [CHEM] DAILYLAB 08/25/22 05:00 BMP, RFLX TO IONIZED CA IF [CHEM] DAILYLAB 08/26/22 05:00 BMP, RFLX TO IONIZED CA IF [CHEM] DAILYLAB 08/27/22 05:00 BMP, RFLX TO IONIZED CA IF [CHEM] DAILYLAB Objective Vital Signs: Vital Signs - 24 hr 08/21/22 08/21/22 08/21/22 15:46 20:21 23:45 Temperature 36.4 C L 36.3 C L 36.3 C L Heart Rate [ 50 L 55 L 64 Brachial] Respiratory 20 20 18 Rate Blood Pressure 157/67 H 150/57 H 133/76 H [Right Brachial artery] O2 Saturation 100 100 95 08/22/22 08/22/22 08/22/22 05:20 08:35 12:56 Temperature 36.2 C L 36.5 C 36.6 C Heart Rate [ 59 L 65 63 Brachial] Respiratory 18 18 18 Rate Blood Pressure 141/87 H 139/81 H 149/75 H [Right Brachial artery] O2 Saturation 97 99 98 Oxygen O2 Source [Without Activity] Room air O2 Source Room air I&O (Last 24 Hrs): Intake and Output Totals x24h 08/20/22 08/21/22 08/22/22 23:59 23:59 23:59 Intake Total 4610 600 620 Output Total 1575 550 300 Balance 3035 50 320 - Results Results: Laboratory Results WBC 6.3 x10^3/uL (4.8-10.8) 08/20/22 06:05 RBC 4.18 10^6/uL (4.70-6.10) L 08/20/22 06:05 Hgb 12.4 g/dL (14.0-18.0) L 08/20/22 06:05 Hct 36.6 % (42.0-52.0) L 08/20/22 06:05 MCV 87.6 fL (80.0-94.0) 08/20/22 06:05 MCH 29.7 pg (27.0-31.0) 08/20/22 06:05 MCHC 33.9 g/dL (32.0-36.0) 08/20/22 06:05 RDW 12.2 % (12.0-15.0) 08/20/22 06:05 Plt Count 215 10^3/uL (130-450) 08/20/22 06:05 MPV 11.7 fL (7.4-11.4) H 08/20/22 06:05 Neut # (Auto) 4.3 10^3/uL (1.5-6.6) 08/20/22 06:05 Lymph # (Auto) 1.3 10^3/uL (1.5-3.5) L 08/20/22 06:05 Reagan # (Auto) 0.5 10^3/uL (0.0-1.0) 08/20/22 06:05 Eos # (Auto) 0.1 10^3/uL (0.0-0.7) 08/20/22 06:05 Baso # (Auto) 0.1 10^3/uL (0.0-0.1) 08/20/22 06:05 Absolute Nucleated RBC 0.00 x10^3/uL 08/20/22 06:05 Nucleated RBC % 0.0 /100WBC 08/20/22 06:05 VBG pH 7.291 (7.31-7.41) L 08/19/22 13:06 VBG pCO2 43.5 mmHg (41-51) 08/19/22 13:06 VBG pO2 84.6 mmHg (25-47) H 08/19/22 13:06 VBG HCO3 20.5 mmol/L (23-28) L 08/19/22 13:06 VBG Total CO2 21.8 mmol/L (24-29) L 08/19/22 13:06 VBG O2 Saturation 95.4 % (60-80) H 08/19/22 13:06 VBG Base Excess -5.9 mmol/L (-2 - +2) L 08/19/22 13:06 Sodium 133 mmol/L (135-145) L 08/22/22 08:52 Potassium 3.6 mmol/L (3.5-5.0) 08/22/22 08:52 Chloride 100 mmol/L (101-111) L 08/22/22 08:52 Carbon Dioxide 26 mmol/L (21-32) 08/22/22 08:52 Anion Gap 7.0 (6-13) 08/22/22 08:52 BUN 16 mg/dL (6-20) 08/22/22 08:52 Creatinine 1.0 mg/dL (0.6-1.2) 08/22/22 08:52 Estimated GFR (MDRD) 77 (>89) L 08/22/22 08:52 Glucose 436 mg/dL (70-100) H 08/22/22 08:52 POC Whole Bld Glucose 273 mg/dL (70 - 100) H 08/22/22 11:28 Estimat Average Glucose 163 mg/dL (70-100) H 08/20/22 06:05 Hemoglobin A1c % 7.3 % (4.27-6.07) H 08/20/22 06:05 Calcium 8.6 mg/dL (8.5-10.3) 08/22/22 08:52 Ionized Calcium NO 08/22/22 08:52 Phosphorus 3.0 mg/dL (2.5-4.6) 08/19/22 18:30 Magnesium 1.8 mg/dL (1.7-2.8) 08/19/22 18:30 Total Bilirubin 1.4 mg/dL (0.2-1.0) H 08/19/22 12:02 AST 17 IU/L (10-42) 08/19/22 12:02 ALT 16 IU/L (10-60) 08/19/22 12:02 Alkaline Phosphatase 64 IU/L (42-121) 08/19/22 12:02 Troponin I High Sens 5.4 ng/L (2.3-19.7) 08/19/22 16:00 Total Protein 7.3 g/dL (6.7-8.2) 08/19/22 12:02 Albumin 4.2 g/dL (3.2-5.5) 08/19/22 12:02 Globulin 3.1 g/dL (2.1-4.2) 08/19/22 12:02 Albumin/Globulin Ratio 1.4 (1.0-2.2) 08/19/22 12:02 Triglycerides 33 mg/dL (-149) 08/20/22 06:05 Lipase 33 U/L (22-51) 08/19/22 12:02 Urine Color LIGHT YELLOW 08/19/22 12:20 Urine Clarity CLEAR (CLEAR) 08/19/22 12:20 Urine pH 5.5 PH (5.0-7.5) 08/19/22 12:20 Ur Specific [place] 1.010 (1.002-1.030) 08/19/22 12:20 Urine Protein NEGATIVE mg/dL (NEGATIVE) 08/19/22 12:20 Urine Glucose (UA) >=1000 mg/dL (NEGATIVE) H 08/19/22 12:20 Urine Ketones 15 mg/dL (NEGATIVE) H 08/19/22 12:20 Urine Occult Blood NEGATIVE (NEGATIVE) 08/19/22 12:20 Urine Nitrite NEGATIVE (NEGATIVE) 08/19/22 12:20 Urine Bilirubin NEGATIVE (NEGATIVE) 08/19/22 12:20 Urine Urobilinogen 0.2 (NORMAL) E.U./dL (NORMAL) 08/19/22 12:20 Ur Leukocyte Esterase NEGATIVE (NEGATIVE) 08/19/22 12:20 Ur Microscopic Review NOT INDICATED 08/19/22 12:20 Urine Culture Comments NOT INDICATED 08/19/22 12:20 Nasal Adenovirus (PCR) NOT DETECTED 08/19/22 17:50 Nasal B. parapertussis DNA (PCR) NOT DETECTED 08/19/22 17:50 Nasal Coronavir 229E PCR NOT DETECTED 08/19/22 17:50 Nasal Coronavir HKU1 PCR NOT DETECTED 08/19/22 17:50 Nasal Coronavir NL63 PCR NOT DETECTED 08/19/22 17:50 Nasal Coronavir OC43 PCR NOT DETECTED 08/19/22 17:50 Nasal Enterovir/Rhinovir PCR NOT DETECTED 08/19/22 17:50 Nasal Influenza B PCR NOT DETECTED 08/19/22 17:50 Nasal Influenza A PCR NOT DETECTED 08/19/22 17:50 Nasal Parainfluen 1 PCR NOT DETECTED 08/19/22 17:50 Nasal Parainfluen 2 PCR NOT DETECTED 08/19/22 17:50 Nasal Parainfluen 3 PCR NOT DETECTED 08/19/22 17:50 Nasal Parainfluen 4 PCR NOT DETECTED 08/19/22 17:50 Nasal RSV (PCR) NOT DETECTED 08/19/22 17:50 Nasal Screen MRSA (PCR) NEGATIVE (NEGATIVE) 08/19/22 14:30 Nasal B.pertussis DNA PCR NOT DETECTED 08/19/22 17:50 Nasal C.pneumoniae (PCR) NOT DETECTED 08/19/22 17:50 Severo Human Metapneumo PCR NOT DETECTED 08/19/22 17:50 Nasal M.pneumoniae (PCR) NOT DETECTED 08/19/22 17:50 Nasal SARS-CoV-2 (PCR) NOT DETECTED 08/19/22 17:50 Serum Ketones NEGATIVE (NEGATIVE) 08/19/22 21:56 - Procedures Procedures: Procedures CENTRAL VENOUS CATHETER PLACEMENT WITH GUIDANCE (11/03/14) ABX Reporting Has patient been on IV antibiotics over the past 48 hours?: No
[2022-08-22] MEDS: TEMAZEPAM 15 MG CAPSULE PO PRN (20:50)
[2022-08-22] MEDS ORDERED: ATORVASTATIN 40 MG TABLET PO SCH (21:00)
[2022-08-22] MEDS ORDERED: MIRTAZAPINE 15 MG TABLET PO SCH (21:00)
[2022-08-23] MEDS: SODIUM CHLORIDE FLUSH 0.9% 10 ML SYRINGE IVP SCH ×2 (01:00→08:39)
[2022-08-23] MEDS: METOCLOPRAMIDE 10 MG TABLET PO SCH ×2 (06:25→11:55)
[2022-08-23 06:47] LABS: BUN - BLOOD UREA NITROGEN 17 mg/dL (6-20); CALCIUM 8.6 mg/dL (8.5-10.3); CARBON DIOXIDE - CO2 27 mmol/L (21-32); CHLORIDE 106 mmol/L (101-111); CREATININE 0.9 mg/dL (0.6-1.2); GFR - MDRD 87 (>89); GLUCOSE 77 mg/dL (70-100); IONIZED CALCIUM IF INDICATED NO; POTASSIUM 3.3 mmol/L (3.5-5.0); SODIUM 140 mmol/L (135-145)
[2022-08-23] MEDS: INSULIN LISPRO 300 UNIT/3 ML PEN SUBQ SCH ×4 (07:58→11:59)
[2022-08-23] MEDS: INSULIN GLARGINE-YFGN 300 UNIT/3 ML PEN SUBQ SCH (08:29)
[2022-08-23] MEDS: DONEPEZIL 5 MG TABLET PO SCH (08:34)
[2022-08-23] MEDS: TAMSULOSIN 0.4 MG CAPSULE PO SCH (08:35)
[2022-08-23] MEDS: FAMOTIDINE 20 MG TABLET PO SCH (08:35)
[2022-08-23] MEDS: ENOXAPARIN 40 MG/0.4 ML SYRINGE SUBQ SCH (08:38)
[2022-08-23] MEDS ORDERED: LOSARTAN 50 MG TABLET PO SCH (09:00)
[2022-08-23] MEDS ORDERED: DULoxetine 30 MG CAPSULE PO SCH (09:00)
[2022-08-23] MEDS ORDERED: LISDEXAMFETAMINE DIMESYLATE 10 MG PO SCH (09:00)
--- NOTE | 2022-08-23 12:31 | Discharge Plan ---
Discharge Plan Problem Reviewed?: Yes Disposition: Home, Self Care Condition: Stable Diet: Diabetic Activity Restrictions: Activity as Tolerated Additional Instructions or Follow Up instructions: Resume using your insulin pump and recommend following up with your primary care provider in the next few days. Also follow-up with paraeducator when she returns from vacation Bridgett Cornejo No Smoking: If you smoke, Please STOP! Call for help.
--- NOTE | 2022-08-23 12:33 | DISCHARGE SUMMARY ---
Discharge Summary Admit Date: 08/19/22 Discharge Date: 08/23/22 Discharging Provider: Dr Amezquita Code Status: Attempt Resuscitation Condition at Discharge: Stable Discharge Disposition: 01 Home, Self Care - DIAGNOSES Admission Diagnoses: DKA,mild Discharge Diagnoses with Status of Each Condition: DKA,Mild resolver - HPI History of Present Illness: This is a 56-year-old male whose past medical history is significant for type 1 diabetes for which she is on an insulin pump he presented with mild diabetic ketoacidosis. [facility] and also by his primary care provider. Dr. Munoz. He was initiated on IV DKA insulin protocol drip and then converted to subcu insulin while here and managed as such. He did have an episode 2 days ago feeling nauseous and upon further questioning he does have a history of gastroparesis for which she is on no meds for we did start him day prior to discharge on scheduled Reglan 5 mg before meals and at bedtime and he seemed to do better with this dosing so we will continue. - HOSPITAL COURSE Hospital Course: 1) Diabetic ketoacidosis Qualifiers: Diabetes mellitus type: type 1 Diabetes mellitus complication detail: without coma Qualified Code(s): E10.10 - Type 1 diabetes mellitus with ketoacidosis without coma Assessment/Plan: Qualifiers: Assessment/Plan: Qualifiers: Diabetes mellitus type: type 1 Diabetes mellitus complication detail: without coma Qualified Code(s): E10.10 - Type 1 diabetes mellitus with ketoacidosis without coma Assessment/Plan: Conclusion/Plan: The patient's urinalysis is negative for UTI and chest x-ray unremarkable. Last time he had a viral syndrome, which gave him DKA. There is also been a history of him not using his insulin pump correctly, which could be the cause for this current DKA episode Plan: Admit to the ICU, started DKA protocol with insulin drip, glu checks, hypoglycemia protocol Stop his insulin pump from infusing. Diabetic RN to see in am before his pump is resumed. Continue with as needed IV antiemetics, and will order a clear liquid diet, to be advanced as tolerated. Continue with IV saline, change to iv containing D5 with NS when glu <200. Follow his serum ketones, pH, electrolytes closely and keep correcting I will order a PCR respiratory panel to check for viral syndrome I will order troponins x2 to rule out an OK as the cause of this DKA August 20, 2022-patient is off of insulin drip and is getting Lantus 20 units subcu twice daily along with nutritional lispro and sliding scale lispro. 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 He has had poor appetite today and has felt nauseous with an episode of vomiting. Patient was started on Reglan IV as needed August 22, 2022-patient's blood sugar has shot up to 365 this morning. He does say he was diagnosed with gastroparesis so I think this may be an influencing factor with difficult blood sugar control. Will do scheduled Reglan before meals and at bedtime 5 mg p.o. and monitor blood sugars we have upped his Lantus to 20 units units twice daily at this time due to his elevated blood sugar. We will give correction dose insulin and monitor to see how much he actually eats today and per protocol will adjust his mealtime insulin dosing. Qualifiers: Diabetes mellitus type: type 1 Diabetes mellitus complication detail: without coma Qualified Code(s): E10.10 - Type 1 diabetes mellitus with ketoacidosis without coma (2) Hyperkalemia Conclusion/Plan: This is from his serum being hyperglycemic and acidotic. Plan: As we give insulin and Promote glucose entering the cell, the potassium will also enter the cells and serum K should correct in parallel. August 20, 2022, resolved and will monitor (3) SAMUEL (acute kidney injury) Conclusion/Plan: He presents with an elevated BUN and creatinine. All labs were reviewed. He is dehydrated by virtue of being hyperglycemic and hyperosmotic, which caused diuresis. Plan: Avoid nephrotoxins Giving aggressive saline hydration should also help the BUN and creatinine rec over Follow BMP closely - ALLERGIES Allergies/Adverse Reactions: Allergies Allergy/AdvReac Type Severity Reaction Status Date / Time omeprazole Allergy Intermediate Nausea Verified 08/19/22 11:50 insulin aspart Allergy Unknown Verified 08/19/22 11:50 [From Novolog U-100 Insulin aspart] insulin aspart protamine Allergy Unknown Verified 08/19/22 11:50 human [From Novolog Mix 70-30 U-100 Insuln] codeine AdvReac Severe Dizziness Verified 08/19/22 11:50 doxycycline AdvReac Intermediate Dizziness Verified 08/19/22 11:50 - MEDICATIONS Home Medications: Ambulatory Orders Medication Instructions Recorded Confirmed Atorvastatin Calcium [Lipitor] 80 mg PO QPM 05/30/21 08/20/22 Donepezil HCl [Aricept] 10 mg PO DAILY 05/30/21 08/20/22 Mirtazapine 45 mg PO QPM 05/30/21 08/20/22 DULoxetine [Cymbalta] 30 mg PO DAILY 01/26/22 08/20/22 Tamsulosin [Flomax] 0.4 mg PO DAILY 01/26/22 08/20/22 Albuterol 2.5 mg INH Q4H PRN #30 ml 04/16/22 08/20/22 Albuterol Sulf [Ventolin Hfa 1 - 2 puffs INH Q4HR PRN #1 each 04/16/22 08/20/22 Inhaler] Lisdexamfetamine Dimesylate 20 mg PO DAILY 07/03/22 08/20/22 [Vyvanse] Insulin Lispro 83 unit SUBQ .INSULIN PUMP 07/04/22 08/20/22 Losartan Potassium 25 mg PO DAILY 07/04/22 08/20/22 - PHYSICAL EXAM AT DISCHARGE General Appearance: positive: No acute distress, Alert Eyes Bilateral: positive: Normal inspection Neck: positive: Nml inspection Respiratory: positive: Breath sounds nml Cardiovascular: positive: Regular rate & rhythm, No murmur Abdomen: positive: Non-tender Skin: positive: No rash Extremities: positive: Non-tender Neurologic/Psychiatric: positive: Oriented x3 - LABS Result Diagrams: 08/20/22 06:05 08/23/22 06:17 - TIME SPENT Time Spent in Discharge (Minutes): 35
[2022-08-23 14:19] VITALS: BP 150/83
== END 2022-08-23 15:15 | disposition home or self-care (01) | DRG 638 ==
LOC: ED 11:29 → ICU 13:29 → MS2 08-20 07:18
PROVIDERS: ADMIT Internal Medicine; ATTEND Specialist
PROC: 02HV33Z Insertion of Infusion Device into Superior Vena Cava, Percutaneous Approach (ICD-10-PCS; principal; 2022-08-19)
DX: E10.10 Type 1 diabetes mellitus with ketoacidosis without coma (principal); N17.9 Acute kidney failure, unspecified; Z96.41 Presence of insulin pump (external) (internal); E10.43 Type 1 diabetes mellitus with diabetic autonomic (poly)neuropathy; F03.90 Unspecified dementia, unspecified severity, without behavioral disturbance, psychotic disturbance, mood disturbance, and anxiety; K31.84 Gastroparesis; R11.2 Nausea with vomiting, unspecified; R63.0 Anorexia; Z68.24 Body mass index [BMI] 24.0-24.9, adult; E87.5 Hyperkalemia; E86.0 Dehydration; Z86.73 Personal history of transient ischemic attack (TIA), and cerebral infarction without residual deficits; I10 Essential (primary) hypertension; R41.3 Other amnesia; E78.00 Pure hypercholesterolemia, unspecified; E03.9 Hypothyroidism, unspecified; Z87.891 Personal history of nicotine dependence
CPT/HCPCS: 36415; 80048; 80053; 81003; 82009; 82803; 83036; 83690; 83735; 84100; 84478; 84484; 85025; 87150; 87633; 93005; 96360; 99285; A9270; J1650; J1815; J2765; 81001; 82330; 82947; 87086

== ENCOUNTER 2022-08-23 23:10 | Outpatient (CLI) | payer MEDICARE | END 2022-08-23 23:11 | disposition critical access hospital (66) | LOC: EMS 23:10 | DX: R55 Syncope and collapse (principal); M54.2 Cervicalgia | CPT/HCPCS: A0425; A0427 ==

== ENCOUNTER 2022-08-23 23:30 | Emergency (ER) | payer MEDICARE ==
--- OUTSIDE RECORDS SUMMARY | 2022-08-23 23:49 | EXTERNAL MEDICAL SUMMARY RPT | Continuity of Care Document ---
Author Name Unknown Address [address] [place] [address] Phone Organization [facility] Address [address] [place] [address] Phone Care Team Providers Care [facility] [place] Mica Name Role Phone Unavailable Unavailable Unavailable Dalton Finn Unavailable Unavailable Allergies and Intolerances date description facility type (no date) Mild [facility] (unknown) (no date) codeine [facility] (unknown) (no date) doxycycline [facility] (unknown) (no date) insulin aspart [facility] (unknown) (no date) omeprazole [facility] (unknown) Medications date description facility 2022-05-27 00:00 Duloxetine [facility] 2022-05-27 00:00 Mirtazapine [facility] 2022-05-28 00:00 Amoxicillin-Pot [facility]av[facility] 2022-05-27 00:00 Atorvastatin [facility] Problems date description facility 2022-05-27 00:00 Heart failure [facility] 2022-05-27 00:00 Back pain [facility] 2022-05-27 00:00 Hypoxia [facility] 2022-05-28 06:27 Type 1 diabetes robert itus with ketoacidosis without [facility] 2022-05-28 07:18 Type 1 diabetes robert itus with ketoacidosis without [facility] 2022-05-28 09:15 Type 1 diabetes robert itus with ketoacidosis without [facility] 2022-05-28 09:45 Type 1 diabetes robert itus with ketoacidosis without [facility] 2022-05-28 11:06 Type 1 diabetes robert itus with ketoacidosis without [facility] 2022-05-28 11:20 Type 1 diabetes robert itus with ketoacidosis without [facility] 2022-05-28 11:42 Type 1 diabetes robert itus with ketoacidosis without [facility] 2022-05-28 13:05 Type 1 diabetes robert itus with ketoacidosis without [facility] 2022-05-29 07:56 Type 1 diabetes robert itus with ketoacidosis without coma [facility] 2022-05-30 09:27 Type 1 diabetes robert itus with ketoacidosis without coma [facility] Procedures date description facility 2022-05-27 00:00 X-ray of chest, single view [facility] Results/Labs test date author facility value unit interpretation Result panel 1 (unknown) (no date) (unknown) [facility] (no value) (units unknown ) (unknown) Result panel 2 (unknown) (no date) (unknown) [facility] (no value) (units unknown ) (unknown) Result panel 3 (unknown) (no date) (unknown) [facility] (no value) (units unknown ) (unknown) Result panel 4 (unknown) (no date) (unknown) [facility] (no value) (units unknown ) (unknown) Result panel 5 (unknown) (no date) (unknown) [facility] (no value) (units unknown ) (unknown) Result panel 6 (unknown) (no date) (unknown) [facility] (no value) (units unknown ) (unknown) Result panel 7 (unknown) (no date) (unknown) [facility] (no value) (units unknown ) (unknown) Result panel 8 (unknown) (no date) (unknown) [facility] (no value) (units unknown ) (unknown) Result panel 9 (unknown) (no date) (unknown) [facility] (no value) (units unknown ) (unknown) Result panel 10 (unknown) (no date) (unknown) [facility] (no value) (units unknown ) (unknown) Result panel 11 (unknown) (no date) (unknown) [facility] (no value) (units unknown ) (unknown) Result panel 12 (unknown) (no date) (unknown) [facility] (no value) (units unknown ) (unknown) Result panel 13 (unknown) (no date) (unknown) [facility] (no value) (units unknown ) (unknown) Result panel 14 (unknown) (no date) (unknown) [facility] (no value) (units unknown ) (unknown) Result panel 15 (unknown) (no date) (unknown) [facility] (no value) (units unknown ) (unknown) Result panel 16 (unknown) (no date) (unknown) [facility] (no value) (units unknown ) (unknown) Result panel 17 (unknown) (no date) (unknown) [facility] (no value) (units unknown ) (unknown) Result panel 18 (unknown) (no date) (unknown) [facility] (no value) (units unknown ) (unknown) Result panel 19 (unknown) (no date) (unknown) [facility] (no value) (units unknown ) (unknown) Result panel 20 (unknown) (no date) (unknown) [facility] (no value) (units unknown ) (unknown) Result panel 21 (unknown) (no date) (unknown) [facility] (no value) (units unknown ) (unknown) Result panel 22 (unknown) (no date) (unknown) [facility] (no value) (units unknown ) (unknown) Result panel 23 (unknown) (no date) (unknown) [facility] (no value) (units unknown ) (unknown) Result panel 24 (unknown) (no date) (unknown) [facility] (no value) (units unknown ) (unknown) Result panel 25 (unknown) (no date) (unknown) [facility] (no value) (units unknown ) (unknown) Result panel 26 (unknown) (no date) (unknown) [facility] (no value) (units unknown ) (unknown) Result panel 27 (unknown) (no date) (unknown) [facility] (no value) (units unknown ) (unknown) Result panel 28 (unknown) (no date) (unknown) [facility] (no value) (units unknown ) (unknown) Result panel 29 (unknown) (no date) (unknown) [facility] (no value) (units unknown ) (unknown) Result panel 30 (unknown) (no date) (unknown) [facility] (no value) (units unknown ) (unknown) Result panel 31 (unknown) (no date) (unknown) [facility] (no value) (units unknown ) (unknown) Result panel 32 (unknown) (no date) (unknown) [facility] (no value) (units unknown ) (unknown) Result panel 33 (unknown) (no date) (unknown) [facility] (no value) (units unknown ) (unknown) Result panel 34 (unknown) (no date) (unknown) [facility] (no value) (units unknown ) (unknown) Result panel 35 (unknown) (no date) (unknown) [facility] (no value) (units unknown ) (unknown) Result panel 36 (unknown) (no date) (unknown) [facility] (no value) (units unknown ) (unknown) Result panel 37 (unknown) (no date) (unknown) [facility] (no value) (units unknown ) (unknown) Result panel 38 (unknown) (no date) (unknown) [facility] (no value) (units unknown ) (unknown) Result panel 39 (unknown) (no date) (unknown) [facility] (no value) (units unknown ) (unknown) Result panel 40 (unknown) (no date) (unknown) [facility] (no value) (units unknown ) (unknown) Result panel 41 (unknown) (no date) (unknown) [facility] (no value) (units unknown ) (unknown) Result panel 42 (unknown) (no date) (unknown) [facility] (no value) (units unknown ) (unknown) Result panel 43 (unknown) (no date) (unknown) [facility] (no value) (units unknown ) (unknown) Result panel 44 (unknown) (no date) (unknown) [facility] (no value) (units unknown ) (unknown) Result panel 45 (unknown) (no date) (unknown) [facility] (no value) (units unknown ) (unknown) Result panel 46 (unknown) (no date) (unknown) [facility] (no value) (units unknown ) (unknown) Result panel 47 (unknown) (no date) (unknown) [facility] (no value) (units unknown ) (unknown) Result panel 48 (unknown) (no date) (unknown) [facility] (no value) (units unknown ) (unknown) Result panel 49 (unknown) (no date) (unknown) [facility] (no value) (units unknown ) (unknown) Result panel 50 (unknown) (no date) (unknown) [facility] (no value) (units unknown ) (unknown) Result panel 51 (unknown) (no date) (unknown) [facility] (no value) (units unknown ) (unknown) Result panel 52 (unknown) (no date) (unknown) [facility] (no value) (units unknown ) (unknown) Result panel 53 (unknown) (no date) (unknown) [facility] (no value) (units unknown ) (unknown) Result panel 54 (unknown) (no date) (unknown) [facility] (no value) (units unknown ) (unknown) Result panel 55 (unknown) (no date) (unknown) [facility] (no value) (units unknown ) (unknown) Result panel 56 (unknown) (no date) (unknown) [facility] (no value) (units unknown ) (unknown) Result panel 57 (unknown) (no date) (unknown) [facility] (no value) (units unknown ) (unknown) Result panel 58 (unknown) (no date) (unknown) [facility] (no value) (units unknown ) (unknown) Result panel 59 (unknown) (no date) (unknown) [facility] (no value) (units unknown ) (unknown) Result panel 60 (unknown) (no date) (unknown) [facility] (no value) (units unknown ) (unknown) Result panel 61 (unknown) (no date) (unknown) [facility] (no value) (units unknown ) (unknown) Result panel 62 (unknown) (no date) (unknown) [facility] (no value) (units unknown ) (unknown) Result panel 63 (unknown) (no date) (unknown) [facility] (no value) (units unknown ) (unknown) Result panel 64 (unknown) (no date) (unknown) [facility] (no value) (units unknown ) (unknown) Result panel 65 (unknown) (no date) (unknown) [facility] (no value) (units unknown ) (unknown) Result panel 66 (unknown) (no date) (unknown) [facility] (no value) (units unknown ) (unknown) Result panel 67 (unknown) (no date) (unknown) [facility] (no value) (units unknown ) (unknown) Result panel 68 (unknown) (no date) (unknown) [facility] (no value) (units unknown ) (unknown) Result panel 69 (unknown) (no date) (unknown) [facility] (no value) (units unknown ) (unknown) Result panel 70 (unknown) (no date) (unknown) [facility] (no value) (units unknown ) (unknown) Result panel 71 (unknown) (no date) (unknown) [facility] (no value) (units unknown ) (unknown) Result panel 72 (unknown) (no date) (unknown) [facility] (no value) (units unknown ) (unknown) Result panel 73 (unknown) (no date) (unknown) [facility] (no value) (units unknown ) (unknown) Result panel 74 (unknown) (no date) (unknown) [facility] (no value) (units unknown ) (unknown) Result panel 75 (unknown) (no date) (unknown) [facility] (no value) (units unknown ) (unknown) Result panel 76 (unknown) (no date) (unknown) [facility] (no value) (units unknown ) (unknown) Result panel 77 (unknown) (no date) (unknown) [facility] (no value) (units unknown ) (unknown) Result panel 78 (unknown) (no date) (unknown) [facility] (no value) (units unknown ) (unknown) Result panel 79 (unknown) (no date) (unknown) [facility] (no value) (units unknown ) (unknown) Result panel 80 (unknown) (no date) (unknown) [facility] (no value) (units unknown ) (unknown) Result panel 81 (unknown) (no date) (unknown) [facility] (no value) (units unknown ) (unknown) Result panel 82 (unknown) (no date) (unknown) [facility] (no value) (units unknown ) (unknown) Result panel 83 (unknown) (no date) (unknown) [facility] (no value) (units unknown ) (unknown) Result panel 84 (unknown) (no date) (unknown) [facility] (no value) (units unknown ) (unknown) Result panel 85 (unknown) (no date) (unknown) [facility] (no value) (units unknown ) (unknown) Result panel 86 (unknown) (no date) (unknown) [facility] (no value) (units unknown ) (unknown) Result panel 87 (unknown) (no date) (unknown) [facility] (no value) (units unknown ) (unknown) Result panel 88 (unknown) (no date) (unknown) [facility] (no value) (units unknown ) (unknown) Result panel 89 (unknown) (no date) (unknown) [facility] (no value) (units unknown ) (unknown) Result panel 90 (unknown) (no date) (unknown) [facility] (no value) (units unknown ) (unknown) Result panel 91 (unknown) (no date) (unknown) [facility] (no value) (units unknown ) (unknown) Result panel 92 (unknown) (no date) (unknown) [facility] (no value) (units unknown ) (unknown) Result panel 93 (unknown) (no date) (unknown) [facility] (no value) (units unknown ) (unknown) Result panel 94 (unknown) (no date) (unknown) [facility] (no value) (units unknown ) (unknown) Result panel 95 (unknown) (no date) (unknown) [facility] (no value) (units unknown ) (unknown) Result panel 96 (unknown) (no date) (unknown) [facility] (no value) (units unknown ) (unknown) Result panel 97 (unknown) (no date) (unknown) [facility] (no value) (units unknown ) (unknown) Result panel 98 (unknown) (no date) (unknown) [facility] (no value) (units unknown ) (unknown) Result panel 99 (unknown) (no date) (unknown) [facility] (no value) (units unknown ) (unknown) Result panel 100 (unknown) (no date) (unknown) [facility] (no value) (units unknown ) (unknown) Result panel 101 (unknown) (no date) (unknown) [facility] (no value) (units unknown ) (unknown) Result panel 102 (unknown) (no date) (unknown) [facility] (no value) (units unknown ) (unknown) Result panel 103 (unknown) (no date) (unknown) [facility] (no value) (units unknown ) (unknown) Result panel 104 (unknown) (no date) (unknown) [facility] (no value) (units unknown ) (unknown) Result panel 105 (unknown) (no date) (unknown) [facility] (no value) (units unknown ) (unknown) Result panel 106 (unknown) (no date) (unknown) [facility] (no value) (units unknown ) (unknown) Result panel 107 (unknown) (no date) (unknown) [facility] (no value) (units unknown ) (unknown) Result panel 108 (unknown) (no date) (unknown) [facility] (no value) (units unknown ) (unknown) Result panel 109 (unknown) (no date) (unknown) [facility] (no value) (units unknown ) (unknown) Result panel 110 (unknown) (no date) (unknown) [facility] (no value) (units unknown ) (unknown) Result panel 111 (unknown) (no date) (unknown) [facility] (no value) (units unknown ) (unknown) Result panel 112 (unknown) (no date) (unknown) [facility] (no value) (units unknown ) (unknown) Result panel 113 (unknown) (no date) (unknown) [facility] (no value) (units unknown ) (unknown) Result panel 114 (unknown) (no date) (unknown) [facility] (no value) (units unknown ) (unknown) Result panel 115 (unknown) (no date) (unknown) [facility] (no value) (units unknown ) (unknown) Result panel 116 (unknown) (no date) (unknown) [facility] (no value) (units unknown ) (unknown) Result panel 117 (unknown) (no date) (unknown) [facility] (no value) (units unknown ) (unknown) Result panel 118 (unknown) (no date) (unknown) [facility] (no value) (units unknown ) (unknown) Result panel 119 (unknown) (no date) (unknown) [facility] (no value) (units unknown ) (unknown) Result panel 120 (unknown) (no date) (unknown) [facility] (no value) (units unknown ) (unknown) Result panel 121 (unknown) (no date) (unknown) [facility] (no value) (units unknown ) (unknown) Result panel 122 (unknown) (no date) (unknown) [facility] (no value) (units unknown ) (unknown) Result panel 123 (unknown) (no date) (unknown) [facility] (no value) (units unknown ) (unknown) Result panel 124 (unknown) (no date) (unknown) [facility] (no value) (units unknown ) (unknown) Result panel 125 (unknown) (no date) (unknown) [facility] (no value) (units unknown ) (unknown) Result panel 126 (unknown) (no date) (unknown) [facility] (no value) (units unknown ) (unknown) Result panel 127 (unknown) (no date) (unknown) [facility] (no value) (units unknown ) (unknown) Result panel 128 (unknown) (no date) (unknown) [facility] (no value) (units unknown ) (unknown) Result panel 129 (unknown) (no date) (unknown) [facility] (no value) (units unknown ) (unknown) Result panel 130 (unknown) (no date) (unknown) [facility] (no value) (units unknown ) (unknown) Result panel 131 (unknown) (no date) (unknown) [facility] (no value) (units unknown ) (unknown) Result panel 132 (unknown) (no date) (unknown) [facility] (no value) (units unknown ) (unknown) Result panel 133 (unknown) (no date) (unknown) [facility] (no value) (units unknown ) (unknown) Result panel 134 (unknown) (no date) (unknown) [facility] (no value) (units unknown ) (unknown) Result panel 135 (unknown) (no date) (unknown) [facility] (no value) (units unknown ) (unknown) Result panel 136 (unknown) (no date) (unknown) [facility] (no value) (units unknown ) (unknown) Result panel 137 (unknown) (no date) (unknown) [facility] (no value) (units unknown ) (unknown) Result panel 138 (unknown) (no date) (unknown) [facility] (no value) (units unknown ) (unknown) Result panel 139 (unknown) (no date) (unknown) [facility] (no value) (units unknown ) (unknown) Result panel 140 (unknown) (no date) (unknown) [facility] (no value) (units unknown ) (unknown) Result panel 141 (unknown) (no date) (unknown) [facility] (no value) (units unknown ) (unknown) Result panel 142 (unknown) (no date) (unknown) [facility] (no value) (units unknown ) (unknown) Result panel 143 (unknown) (no date) (unknown) [facility] (no value) (units unknown ) (unknown) Result panel 144 (unknown) (no date) (unknown) [facility] (no value) (units unknown ) (unknown) Result panel 145 (unknown) (no date) (unknown) [facility] (no value) (units unknown ) (unknown) Result panel 146 (unknown) (no date) (unknown) [facility] (no value) (units unknown ) (unknown) Result panel 147 (unknown) (no date) (unknown) [facility] (no value) (units unknown ) (unknown) Result panel 148 (unknown) (no date) (unknown) [facility] (no value) (units unknown ) (unknown) Result panel 149 (unknown) (no date) (unknown) [facility] (no value) (units unknown ) (unknown) Result panel 150 (unknown) (no date) (unknown) [facility] (no value) (units unknown ) (unknown) Result panel 151 (unknown) (no date) (unknown) [facility] (no value) (units unknown ) (unknown) Result panel 152 (unknown) (no date) (unknown) [facility] (no value) (units unknown ) (unknown) Result panel 153 (unknown) (no date) (unknown) [facility] (no value) (units unknown ) (unknown) Result panel 154 (unknown) (no date) (unknown) [facility] (no value) (units unknown ) (unknown) Result panel 155 (unknown) (no date) (unknown) [facility] (no value) (units unknown ) (unknown) Result panel 156 (unknown) (no date) (unknown) [facility] (no value) (units unknown ) (unknown) Result panel 157 (unknown) (no date) (unknown) [facility] (no value) (units unknown ) (unknown) Result panel 158 (unknown) (no date) (unknown) [facility] (no value) (units unknown ) (unknown) Result panel 159 (unknown) (no date) (unknown) [facility] (no value) (units unknown ) (unknown) Result panel 160 (unknown) (no date) (unknown) [facility] (no value) (units unknown ) (unknown) Result panel 161 (unknown) (no date) (unknown) [facility] (no value) (units unknown ) (unknown) Result panel 162 (unknown) (no date) (unknown) [facility] (no value) (units unknown ) (unknown) Result panel 163 (unknown) (no date) (unknown) [facility] (no value) (units unknown ) (unknown) Result panel 164 (unknown) (no date) (unknown) [facility] (no value) (units unknown ) (unknown) Result panel 165 (unknown) (no date) (unknown) [facility] (no value) (units unknown ) (unknown) Result panel 166 (unknown) (no date) (unknown) [facility] (no value) (units unknown ) (unknown) Result panel 167 (unknown) (no date) (unknown) [facility] (no value) (units unknown ) (unknown) Result panel 168 (unknown) (no date) (unknown) [facility] (no value) (units unknown ) (unknown) Result panel 169 (unknown) (no date) (unknown) [facility] (no value) (units unknown ) (unknown) Result panel 170 (unknown) (no date) (unknown) [facility] (no value) (units unknown ) (unknown) Result panel 171 (unknown) (no date) (unknown) [facility] (no value) (units unknown ) (unknown) Result panel 172 (unknown) (no date) (unknown) [facility] (no value) (units unknown ) (unknown) Result panel 173 (unknown) (no date) (unknown) [facility] (no value) (units unknown ) (unknown) Result panel 174 (unknown) (no date) (unknown) [facility] (no value) (units unknown ) (unknown) Result panel 175 (unknown) (no date) (unknown) [facility] (no value) (units unknown ) (unknown) Result panel 176 (unknown) (no date) (unknown) [facility] (no value) (units unknown ) (unknown) Result panel 177 (unknown) (no date) (unknown) [facility] (no value) (units unknown ) (unknown) Result panel 178 (unknown) (no date) (unknown) [facility] (no value) (units unknown ) (unknown) Result panel 179 (unknown) (no date) (unknown) [facility] (no value) (units unknown ) (unknown) Result panel 180 (unknown) (no date) (unknown) [facility] (no value) (units unknown ) (unknown) Result panel 181 (unknown) (no date) (unknown) [facility] (no value) (units unknown ) (unknown) Result panel 182 (unknown) (no date) (unknown) [facility] (no value) (units unknown ) (unknown) Result panel 183 (unknown) (no date) (unknown) [facility] (no value) (units unknown ) (unknown) Result panel 184 (unknown) (no date) (unknown) [facility] (no value) (units unknown ) (unknown) Result panel 185 (unknown) (no date) (unknown) [facility] (no value) (units unknown ) (unknown) Result panel 186 (unknown) (no date) (unknown) [facility] (no value) (units unknown ) (unknown) Result panel 187 (unknown) (no date) (unknown) [facility] (no value) (units unknown ) (unknown) Result panel 188 (unknown) (no date) (unknown) [facility] (no value) (units unknown ) (unknown) Result panel 189 (unknown) (no date) (unknown) [facility] (no value) (units unknown ) (unknown) Result panel 190 (unknown) (no date) (unknown) [facility] (no value) (units unknown ) (unknown) Result panel 191 (unknown) (no date) (unknown) [facility] (no value) (units unknown ) (unknown) Result panel 192 (unknown) (no date) (unknown) [facility] (no value) (units unknown ) (unknown) Result panel 193 (unknown) (no date) (unknown) [facility] (no value) (units unknown ) (unknown) Result panel 194 (unknown) (no date) (unknown) [facility] (no value) (units unknown ) (unknown) Result panel 195 (unknown) (no date) (unknown) [facility] (no value) (units unknown ) (unknown) Result panel 196 (unknown) (no date) (unknown) [facility] (no value) (units unknown ) (unknown) Result panel 197 (unknown) (no date) (unknown) [facility] (no value) (units unknown ) (unknown) Result panel 198 (unknown) (no date) (unknown) [facility] (no value) (units unknown ) (unknown) Result panel 199 (unknown) (no date) (unknown) [facility] (no value) (units unknown ) (unknown) Result panel 200 (unknown) (no date) (unknown) [facility] (no value) (units unknown ) (unknown) Result panel 201 (unknown) (no date) (unknown) [facility] (no value) (units unknown ) (unknown) Result panel 202 (unknown) (no date) (unknown) [facility] (no value) (units unknown ) (unknown) Result panel 203 (unknown) (no date) (unknown) [facility] (no value) (units unknown ) (unknown) Result panel 204 (unknown) (no date) (unknown) [facility] (no value) (units unknown ) (unknown) Result panel 205 (unknown) (no date) (unknown) [facility] (no value) (units unknown ) (unknown) Result panel 206 (unknown) (no date) (unknown) [facility] (no value) (units unknown ) (unknown) Result panel 207 (unknown) (no date) (unknown) [facility] (no value) (units unknown ) (unknown) Result panel 208 (unknown) (no date) (unknown) [facility] (no value) (units unknown ) (unknown) Result panel 209 (unknown) (no date) (unknown) [facility] (no value) (units unknown ) (unknown) Result panel 210 (unknown) (no date) (unknown) [facility] (no value) (units unknown ) (unknown) Result panel 211 (unknown) (no date) (unknown) [facility] (no value) (units unknown ) (unknown) Result panel 212 (unknown) (no date) (unknown) [facility] (no value) (units unknown ) (unknown) Result panel 213 (unknown) (no date) (unknown) [facility] (no value) (units unknown ) (unknown) Result panel 214 (unknown) (no date) (unknown) [facility] (no value) (units unknown ) (unknown) Result panel 215 (unknown) (no date) (unknown) [facility] (no value) (units unknown ) (unknown) Result panel 216 (unknown) (no date) (unknown) [facility] (no value) (units unknown ) (unknown) Result panel 217 (unknown) (no date) (unknown) [facility] (no value) (units unknown ) (unknown) Result panel 218 (unknown) (no date) (unknown) [facility] (no value) (units unknown ) (unknown) Result panel 219 (unknown) (no date) (unknown) [facility] (no value) (units unknown ) (unknown) Result panel 220 (unknown) (no date) (unknown) [facility] (no value) (units unknown ) (unknown) Result panel 221 (unknown) (no date) (unknown) [facility] (no value) (units unknown ) (unknown) Result panel 222 (unknown) (no date) (unknown) [facility] (no value) (units unknown ) (unknown) Result panel 223 (unknown) (no date) (unknown) [facility] (no value) (units unknown ) (unknown) Result panel 224 (unknown) (no date) (unknown) [facility] (no value) (units unknown ) (unknown) Result panel 225 (unknown) (no date) (unknown) [facility] (no value) (units unknown ) (unknown) Result panel 226 (unknown) (no date) (unknown) [facility] (no value) (units unknown ) (unknown) Result panel 227 (unknown) (no date) (unknown) [facility] (no value) (units unknown ) (unknown) Result panel 228 (unknown) (no date) (unknown) [facility] (no value) (units unknown ) (unknown) Result panel 229 (unknown) (no date) (unknown) [facility] (no value) (units unknown ) (unknown) Result panel 230 (unknown) (no date) (unknown) [facility] (no value) (units unknown ) (unknown) Result panel 231 (unknown) (no date) (unknown) [facility] (no value) (units unknown ) (unknown) Result panel 232 (unknown) (no date) (unknown) [facility] (no value) (units unknown ) (unknown) Result panel 233 (unknown) (no date) (unknown) [facility] (no value) (units unknown ) (unknown) Result panel 234 (unknown) (no date) (unknown) [facility] (no value) (units unknown ) (unknown) Result panel 235 (unknown) (no date) (unknown) [facility] (no value) (units unknown ) (unknown) Result panel 236 (unknown) (no date) (unknown) [facility] (no value) (units unknown ) (unknown) Result panel 237 (unknown) (no date) (unknown) [facility] (no value) (units unknown ) (unknown) Result panel 238 (unknown) (no date) (unknown) [facility] (no value) (units unknown ) (unknown) Result panel 239 (unknown) (no date) (unknown) [facility] (no value) (units unknown ) (unknown) Result panel 240 (unknown) (no date) (unknown) [facility] (no value) (units unknown ) (unknown) Result panel 241 (unknown) (no date) (unknown) [facility] (no value) (units unknown ) (unknown) Result panel 242 (unknown) (no date) (unknown) [facility] (no value) (units unknown ) (unknown) Result panel 243 (unknown) (no date) (unknown) [facility] (no value) (units unknown ) (unknown) Result panel 244 (unknown) (no date) (unknown) [facility] (no value) (units unknown ) (unknown) Result panel 245 (unknown) (no date) (unknown) [facility] (no value) (units unknown ) (unknown) Result panel 246 (unknown) (no date) (unknown) [facility] (no value) (units unknown ) (unknown) Result panel 247 (unknown) (no date) (unknown) [facility] (no value) (units unknown ) (unknown) Result panel 248 (unknown) (no date) (unknown) [facility] (no value) (units unknown ) (unknown) Result panel 249 (unknown) (no date) (unknown) [facility] (no value) (units unknown ) (unknown) Result panel 250 (unknown) (no date) (unknown) [facility] (no value) (units unknown ) (unknown) Result panel 251 (unknown) (no date) (unknown) [facility] (no value) (units unknown ) (unknown) Result panel 252 (unknown) (no date) (unknown) [facility] (no value) (units unknown ) (unknown) Result panel 253 (unknown) (no date) (unknown) [facility] (no value) (units unknown ) (unknown) Result panel 254 (unknown) (no date) (unknown) [facility] (no value) (units unknown ) (unknown) Result panel 255 (unknown) (no date) (unknown) [facility] (no value) (units unknown ) (unknown) Result panel 256 (unknown) (no date) (unknown) [facility] (no value) (units unknown ) (unknown) Result panel 257 (unknown) (no date) (unknown) [facility] (no value) (units unknown ) (unknown) Result panel 258 (unknown) (no date) (unknown) [facility] (no value) (units unknown ) (unknown) Result panel 259 (unknown) (no date) (unknown) [facility] (no value) (units unknown ) (unknown) Result panel 260 (unknown) (no date) (unknown) [facility] (no value) (units unknown ) (unknown) Result panel 261 (unknown) (no date) (unknown) [facility] (no value) (units unknown ) (unknown) Result panel 262 (unknown) (no date) (unknown) [facility] (no value) (units unknown ) (unknown) Result panel 263 (unknown) (no date) (unknown) [facility] (no value) (units unknown ) (unknown) Result panel 264 (unknown) (no date) (unknown) [facility] (no value) (units unknown ) (unknown) Result panel 265 (unknown) (no date) (unknown) [facility] (no value) (units unknown ) (unknown) Result panel 266 (unknown) (no date) (unknown) [facility] (no value) (units unknown ) (unknown) Result panel 267 (unknown) (no date) (unknown) [facility] (no value) (units unknown ) (unknown) Result panel 268 (unknown) (no date) (unknown) [facility] (no value) (units unknown ) (unknown) Result panel 269 (unknown) (no date) (unknown) [facility] (no value) (units unknown ) (unknown) Result panel 270 (unknown) (no date) (unknown) [facility] (no value) (units unknown ) (unknown) Result panel 271 (unknown) (no date) (unknown) [facility] (no value) (units unknown ) (unknown) Result panel 272 (unknown) (no date) (unknown) [facility] (no value) (units unknown ) (unknown) Result panel 273 (unknown) (no date) (unknown) [facility] (no value) (units unknown ) (unknown) Result panel 274 (unknown) (no date) (unknown) [facility] (no value) (units unknown ) (unknown) Result panel 275 (unknown) (no date) (unknown) [facility] (no value) (units unknown ) (unknown) Result panel 276 (unknown) (no date) (unknown) [facility] (no value) (units unknown ) (unknown) Result panel 277 (unknown) (no date) (unknown) [facility] (no value) (units unknown ) (unknown) Result panel 278 (unknown) (no date) (unknown) [facility] (no value) (units unknown ) (unknown) Result panel 279 (unknown) (no date) (unknown) (unknown) (no value) (units unknown ) (unknown) (unknown) (no date) (unknown) (unknown) 05/27/22 (units unknown ) (unknown) (unknown) (no date) (unknown) (unknown) [address] [place] [address] (units unknown ) (unknown) (unknown) (no date) (unknown) (unknown) [id number] (units unknown ) (unknown) (unknown) (no date) (unknown) (unknown) Accession Number: [id number] (units unknown ) (unknown) (unknown) (no date) (unknown) (unknown) Age/Sex: 56 / M Date of Service: (units unknown ) (unknown) (unknown) (no date) (unknown) (unknown) [place] [id number] (units unknown ) (unknown) (unknown) (no date) (unknown) (unknown) Approved by: Eris dubose M.D. on 05/27/2022 at 15:13 (units unknown ) (unknown) (unknown) (no date) (unknown) (unknown) Bones and chest wall : No suspicious bony lesions. Overlying soft tissues (units unknown ) (unknown) (unknown) (no date) (unknown) (unknown) COMPARISON: [facility], , CHEST 1 VIEW, 06/20/2016, 20:50. (units unknown ) (unknown) (unknown) (no date) (unknown) (unknown) : 1965 Acct:[id number] (units unknown ) (unknown) (unknown) (no date) (unknown) (unknown) Dictated by: Eris dubose M.D. on 05/27/2022 at 15:13 (units unknown ) (unknown) (unknown) (no date) (unknown) (unknown) FINDINGS: (units unknown ) (unknown) (unknown) (no date) (unknown) (unknown) IMPRESSION: No acute cardiopulmonary disease. (units unknown ) (unknown) (unknown) (no date) (unknown) (unknown) INDICATIONS: chest pain (units unknown ) (unknown) (unknown) (no date) (unknown) (unknown) [facility] (units unknown ) (unknown) (unknown) (no date) (unknown) (unknown) Loc: ED (units unknown ) (unknown) (unknown) (no date) (unknown) (unknown) Lungs and pleura: Olinda ngs are clear. No pleural effusions or pneumothorax. (units unknown ) (unknown) (unknown) (no date) (unknown) (unknown) Mediastinum: Mediast inal contours appear normal. Heart size is normal. (units unknown ) (unknown) (unknown) (no date) (unknown) (unknown) Ordering Provider: Dalton Graff D.O. (units unknown ) (unknown) (unknown) (no date) (unknown) (unknown) PROCEDURE: XR CHEST 1V (units unknown ) (unknown) (unknown) (no date) (unknown) (unknown) Patient: Avinash Meredith MR#: [id number] (units unknown ) (unknown) (unknown) (no date) (unknown) (unknown) Procedure: XR chest 1V (units unknown ) (unknown) (unknown) (no date) (unknown) (unknown) Signed (units unknown ) (unknown) (unknown) (no date) (unknown) (unknown) Surgical changes and devices: None. (units unknown ) (unknown) (unknown) (no date) (unknown) (unknown) TECHNIQUE: One view of the chest was acquired. (units unknown ) (unknown) (unknown) (no date) (unknown) (unknown) XRay Report (units unknown ) (unknown) (unknown) (no date) (unknown) (unknown) appear (units unknown ) (unknown) (unknown) (no date) (unknown) (unknown) unremarkable. (units unknown ) (unknown) Result panel 280 (unknown) (no date) (unknown) (unknown) (no value) (units unknown ) (unknown) (unknown) (no date) (unknown) (unknown) 05/27/22 13:08 (units unknown ) (unknown) (unknown) (no date) (unknown) (unknown) 05/27/22 13:09 (units unknown ) (unknown) (unknown) (no date) (unknown) (unknown) 05/27/22 13:49 (units unknown ) (unknown) (unknown) (no date) (unknown) (unknown) 05/27/22 13:50 (units unknown ) (unknown) (unknown) (no date) (unknown) (unknown) 05/27/22 (units unknown ) (unknown) (unknown) (no date) (unknown) (unknown) 13:06 (units unknown ) (unknown) (unknown) (no date) (unknown) (unknown) 5 mg PO TID PRN (Suzie son: muscle spasm) Qty: 10 0RF (units unknown ) (unknown) (unknown) (no date) (unknown) (unknown) 55 unit SLIDE Qty: 0 (units unknown ) (unknown) (unknown) (no date) (unknown) (unknown) [id number] (units unknown ) (unknown) (unknown) (no date) (unknown) (unknown) Age/Sex: 56 / M (units unknown ) (unknown) (unknown) (no date) (unknown) (unknown) Allergies (units unknown ) (unknown) (unknown) (no date) (unknown) (unknown) Allergy/AdvReac Type Severity Reaction Status Date / Time (units unknown ) (unknown) (unknown) (no date) (unknown) (unknown) Arterial Blood Gas Stat (units unknown ) (unknown) (unknown) (no date) (unknown) (unknown) Blood Culture Stat (units unknown ) (unknown) (unknown) (no date) (unknown) (unknown) Blood Pressure 148/6 9 H 05/27/22 13:06 (units unknown ) (unknown) (unknown) (no date) (unknown) (unknown) Blood Pressure 148/69 H (units unknown ) (unknown) (unknown) (no date) (unknown) (unknown) COVID19 -Nasal RAPID Stat (units unknown ) (unknown) (unknown) (no date) (unknown) (unknown) Chief complaint: Clair betic Problem (units unknown ) (unknown) (unknown) (no date) (unknown) (unknown) Complete Blood Count AUTO DIFF Stat (units unknown ) (unknown) (unknown) (no date) (unknown) (unknown) Comprehensive Metabo lic Panel Stat (units unknown ) (unknown) (unknown) (no date) (unknown) (unknown) [place] [facility] [place] [facility] [place] Stat (units unknown ) (unknown) (unknown) (no date) (unknown) (unknown) Course (units unknown ) (unknown) (unknown) (no date) (unknown) (unknown) : 1965 Acct:[id number] (units unknown ) (unknown) (unknown) (no date) (unknown) (unknown) Date of Service: 05/27/22 (units unknown ) (unknown) (unknown) (no date) (unknown) (unknown) Departure (units unknown ) (unknown) (unknown) (no date) (unknown) (unknown) Discharge Plan (units unknown ) (unknown) (unknown) (no date) (unknown) (unknown) ED Orders (units unknown ) (unknown) (unknown) (no date) (unknown) (unknown) EKG-12 Lead Stat (units unknown ) (unknown) (unknown) (no date) (unknown) (unknown) ER Physician: Dalton Graff D.O. (units unknown ) (unknown) (unknown) (no date) (unknown) (unknown) Emergency Report (units unknown ) (unknown) (unknown) (no date) (unknown) (unknown) Exam (units unknown ) (unknown) (unknown) (no date) (unknown) (unknown) General (units unknown ) (unknown) (unknown) (no date) (unknown) (unknown) Dalton Finn MD [Primary Care Provider] (units unknown ) (unknown) (unknown) (no date) (unknown) (unknown) HPI - General Adult (units unknown ) (unknown) (unknown) (no date) (unknown) (unknown) Home Medications (units unknown ) (unknown) (unknown) (no date) (unknown) (unknown) Initial Vital Signs (units unknown ) (unknown) (unknown) (no date) (unknown) (unknown) Initial Vital Signs: (units unknown ) (unknown) (unknown) (no date) (unknown) (unknown) Insulin dependent di abetes mellitus (units unknown ) (unknown) (unknown) (no date) (unknown) (unknown) [address] [address] (units unknown ) (unknown) (unknown) (no date) (unknown) (unknown) Ketones (Beta-Hydroxybutyrate) Stat (units unknown ) (unknown) (unknown) (no date) (unknown) (unknown) Lipase Stat (units unknown ) (unknown) (unknown) (no date) (unknown) (unknown) Magnesium Stat (units unknown ) (unknown) (unknown) (no date) (unknown) (unknown) Medical History (Upd ated 10/31/17 @ 00:01 by ) (units unknown ) (unknown) (unknown) (no date) (unknown) (unknown) Medication Instructi ons Recorded Confirmed (units unknown ) (unknown) (unknown) (no date) (unknown) (unknown) Medication Instructi ons Recorded (units unknown ) (unknown) (unknown) (no date) (unknown) (unknown) Mode of arrival: EMS (units unknown ) (unknown) (unknown) (no date) (unknown) (unknown) No Action (units unknown ) (unknown) (unknown) (no date) (unknown) (unknown) Ondansetron HCl (Ondansetron 4 Mg Odt) 4 mg SL NOW PRN (units unknown ) (unknown) (unknown) (no date) (unknown) (unknown) Ondansetron HCl (Ondansetron 4 Mg/2 Ml Inj) 4 mg IV NOW PRN (units unknown ) (unknown) (unknown) (no date) (unknown) (unknown) Ordered: (units unknown ) (unknown) (unknown) (no date) (unknown) (unknown) Orders (units unknown ) (unknown) (unknown) (no date) (unknown) (unknown) Oxygen Delivery Meth od Room Air 05/27/22 13:06 (units unknown ) (unknown) (unknown) (no date) (unknown) (unknown) Oxygen Delivery Meth od Room Air (units unknown ) (unknown) (unknown) (no date) (unknown) (unknown) PRN Reason: Nausea A nd Vomiting (units unknown ) (unknown) (unknown) (no date) (unknown) (unknown) PTT Partial Thrombop lastin Carlos Stat (units unknown ) (unknown) (unknown) (no date) (unknown) (unknown) Patient History (units unknown ) (unknown) (unknown) (no date) (unknown) (unknown) Patient: Avinash Meredith MR#: [id number] (units unknown ) (unknown) (unknown) (no date) (unknown) (unknown) Phosphorous Stat (units unknown ) (unknown) (unknown) (no date) (unknown) (unknown) Prescriptions: (units unknown ) (unknown) (unknown) (no date) (unknown) (unknown) Previous Rx's (units unknown ) (unknown) (unknown) (no date) (unknown) (unknown) Prothrombin Time INR Stat (units unknown ) (unknown) (unknown) (no date) (unknown) (unknown) Pulse Oximetry 100 05/27/22 13:06 (units unknown ) (unknown) (unknown) (no date) (unknown) (unknown) Pulse Oximetry 100 (units unknown ) (unknown) (unknown) (no date) (unknown) (unknown) Pulse Rate 78 13:06 (units unknown ) (unknown) (unknown) (no date) (unknown) (unknown) Pulse Rate 78 (units unknown ) (unknown) (unknown) (no date) (unknown) (unknown) Referrals: (units unknown ) (unknown) (unknown) (no date) (unknown) (unknown) Related Data (units unknown ) (unknown) (unknown) (no date) (unknown) (unknown) Respiratory Rate 22 05/27/22 13:06 (units unknown ) (unknown) (unknown) (no date) (unknown) (unknown) Respiratory Rate 22 (units unknown ) (unknown) (unknown) (no date) (unknown) (unknown) Signed By: (units unknown ) (unknown) (unknown) (no date) (unknown) (unknown) Smoking Status: Form er smoker (units unknown ) (unknown) (unknown) (no date) (unknown) (unknown) Social History (Upda nico 10/16/17 @ 05:32 by Gege Greenwood DO) (units unknown ) (unknown) (unknown) (no date) (unknown) (unknown) Sodium Chloride (Nor mal Saline 0.9%) 1,000 mls @ 1,000 mls/hr IV BOLUS ONE (units unknown ) (unknown) (unknown) (no date) (unknown) (unknown) Source: patient and EMS (units unknown ) (unknown) (unknown) (no date) (unknown) (unknown) Stated complaint: ch est pain/ n+v/ high glucose (units unknown ) (unknown) (unknown) (no date) (unknown) (unknown) Stop: 05/27/22 14:48 (units unknown ) (unknown) (unknown) (no date) (unknown) (unknown) Substance Use Type: marijuana (units unknown ) (unknown) (unknown) (no date) (unknown) (unknown) Temperature 97.5 F L 05/27/22 13:06 (units unknown ) (unknown) (unknown) (no date) (unknown) (unknown) Temperature 97.5 F L (units unknown ) (unknown) (unknown) (no date) (unknown) (unknown) Time Seen by Provide r: 05/27/22 13:38 (units unknown ) (unknown) (unknown) (no date) (unknown) (unknown) Troponin + CK Cardia c Panel Stat (units unknown ) (unknown) (unknown) (no date) (unknown) (unknown) U-100 Insulin) (units unknown ) (unknown) (unknown) (no date) (unknown) (unknown) Urinalysis and Micro scopic Stat (units unknown ) (unknown) (unknown) (no date) (unknown) (unknown) Urine Culture Stat (units unknown ) (unknown) (unknown) (no date) (unknown) (unknown) Urine Drug Screen, R apid Stat (units unknown ) (unknown) (unknown) (no date) (unknown) (unknown) Vital Signs - 8 hr (units unknown ) (unknown) (unknown) (no date) (unknown) (unknown) Vital Signs (units unknown ) (unknown) (unknown) (no date) (unknown) (unknown) Vital signs: (units unknown ) (unknown) (unknown) (no date) (unknown) (unknown) XR chest 1V Stat (units unknown ) (unknown) (unknown) (no date) (unknown) (unknown) [From Novolog U-100 Insulin injection (units unknown ) (unknown) (unknown) (no date) (unknown) (unknown) alcohol intake frequ ency: holidays/special occasions only (units unknown ) (unknown) (unknown) (no date) (unknown) (unknown) alcohol intake: never (units unknown ) (unknown) (unknown) (no date) (unknown) (unknown) aspart] site (units unknown ) (unknown) (unknown) (no date) (unknown) (unknown) codeine [CODEINE] Al lergy Unknown Verified 05/27/22 13:06 (units unknown ) (unknown) (unknown) (no date) (unknown) (unknown) cyclobenzaprine 5 mg tablet 5 mg PO TID PRN muscle spasm #10 10/16/17 (units unknown ) (unknown) (unknown) (no date) (unknown) (unknown) cyclobenzaprine 5 mg tablet (units unknown ) (unknown) (unknown) (no date) (unknown) (unknown) doxycycline [DOXYCYC LINE] Allergy Unknown Verified 05/27/22 13:06 (units unknown ) (unknown) (unknown) (no date) (unknown) (unknown) insulin aspart Aller gy Unknown Rash at Verified 05/27/22 13:20 (units unknown ) (unknown) (unknown) (no date) (unknown) (unknown) insulin lispro 100 u nit/mL 55 unit SLIDE ##0 08/30/10 (units unknown ) (unknown) (unknown) (no date) (unknown) (unknown) insulin lispro [Frances log U-100 Insulin] 100 UNIT/1 ML solution (units unknown ) (unknown) (unknown) (no date) (unknown) (unknown) omeprazole [OMEPRAZO LE] Allergy Unknown Verified 05/27/22 13:06 (units unknown ) (unknown) (unknown) (no date) (unknown) (unknown) subcutaneous solutio n (Humalog (units unknown ) (unknown) (unknown) (no date) (unknown) (unknown) substance use type: does not use (units unknown ) (unknown) (unknown) (no date) (unknown) (unknown) tabs (units unknown ) (unknown) Result panel 281 (unknown) (no date) (unknown) (unknown) 0 /ul (unknown) (unknown) (no date) (unknown) (unknown) 0.1 % (unknown) (unknown) (no date) (unknown) (unknown) 0.5 % (unknown) (unknown) (no date) (unknown) (unknown) 100 /ul (unknown) (unknown) (no date) (unknown) (unknown) [address] /ul (unknown) (unknown) (no date) (unknown) (unknown) 11.2 x10 3/ul (unknown) (unknown) (no date) (unknown) (unknown) 13.3 % (unknown) (unknown) (no date) (unknown) (unknown) 14.9 g/dl (unknown) (unknown) (no date) (unknown) (unknown) 2.7 % (unknown) (unknown) (no date) (unknown) (unknown) 243 x10 3/ul (unknown) (unknown) (no date) (unknown) (unknown) 29.7 pg (unknown) (unknown) (no date) (unknown) (unknown) 300 /ul (unknown) (unknown) (no date) (unknown) (unknown) 33.3 % (unknown) (unknown) (no date) (unknown) (unknown) 44.7 % (unknown) (unknown) (no date) (unknown) (unknown) 5.02 x10 6/ul (unknown) (unknown) (no date) (unknown) (unknown) 6.4 % (unknown) (unknown) (no date) (unknown) (unknown) 700 /ul (unknown) (unknown) (no date) (unknown) (unknown) 89.1 fl (unknown) (unknown) (no date) (unknown) (unknown) 90.3 % (unknown) Result panel 282 (unknown) (no date) (unknown) (unknown) -11.0 mmol/l (unknown) (unknown) (no date) (unknown) (unknown) 15 mmol/l (unknown) (unknown) (no date) (unknown) (unknown) 16 mmol/l (unknown) (unknown) (no date) (unknown) (unknown) 21 (units unknown ) (unknown) (unknown) (no date) (unknown) (unknown) 26 mmhg (unknown) (unknown) (no date) (unknown) (unknown) 26.7 mmhg (unknown) (unknown) (no date) (unknown) (unknown) 46 % (unknown) (unknown) (no date) (unknown) (unknown) 7.35 (units unknown ) (unknown) (unknown) (no date) (unknown) (unknown) 7.35 (units unknown ) (unknown) Result panel 283 (unknown) (no date) (unknown) (unknown) 3.6 mg/dl (unknown) Result panel 284 (unknown) (no date) (unknown) (unknown) 3.6 mg/dl (unknown) (unknown) (no date) (unknown) (unknown) 6.46 mmol/l (unknown) (unknown) (no date) (unknown) (unknown) 6.46 mmol/l (unknown) Result panel 285 (unknown) (no date) (unknown) (unknown) Negative (units unknown ) (unknown) (unknown) (no date) (unknown) (unknown) Negative (units unknown ) (unknown) Result panel 286 (unknown) (no date) (unknown) (unknown) > 60 ml/min (unknown) (unknown) (no date) (unknown) (unknown) > 60 ml/min (unknown) (unknown) (no date) (unknown) (unknown) 1.15 mg/dl (unknown) (unknown) (no date) (unknown) (unknown) 1.5 (units unknown ) (unknown) (unknown) (no date) (unknown) (unknown) 1.8 mg/dl (unknown) (unknown) (no date) (unknown) (unknown) 104 u/l (unknown) (unknown) (no date) (unknown) (unknown) 12 mmol/l (unknown) (unknown) (no date) (unknown) (unknown) 132 mmol/l (unknown) (unknown) (no date) (unknown) (unknown) 2.7 mg/dl (unknown) (unknown) (no date) (unknown) (unknown) 20.0 (units unknown ) (unknown) (unknown) (no date) (unknown) (unknown) 23 mg/dl (unknown) (unknown) (no date) (unknown) (unknown) 27 iu/l (unknown) (unknown) (no date) (unknown) (unknown) 3.1 g/dl (unknown) (unknown) (no date) (unknown) (unknown) 4.7 g/dl (unknown) (unknown) (no date) (unknown) (unknown) 44 iu/l (unknown) (unknown) (no date) (unknown) (unknown) 5.0 mmol/l (unknown) (unknown) (no date) (unknown) (unknown) 57 u/l (unknown) (unknown) (no date) (unknown) (unknown) 62 u/l (unknown) (unknown) (no date) (unknown) (unknown) 7.8 g/dl (unknown) (unknown) (no date) (unknown) (unknown) 731 mg/dl (unknown) (unknown) (no date) (unknown) (unknown) 731 mg/dl (unknown) (unknown) (no date) (unknown) (unknown) 9.7 mg/dl (unknown) (unknown) (no date) (unknown) (unknown) 94 mmol/l (unknown) (unknown) (no date) (unknown) (unknown) Test not performed % (unknown) (unknown) (no date) (unknown) (unknown) Test not performed % (unknown) (unknown) (no date) (unknown) (unknown) Test not performed ng/ml (unknown) (unknown) (no date) (unknown) (unknown) Test not performed ng/ml (unknown) Result panel 287 (unknown) (no date) (unknown) (unknown) 0.2 e.u./dl (unknown) (unknown) (no date) (unknown) (unknown) 1.010 (units unknown ) (unknown) (unknown) (no date) (unknown) (unknown) 3 (units unknown ) (unknown) (unknown) (no date) (unknown) (unknown) 3 g/dl (unknown) (unknown) (no date) (unknown) (unknown) 6.0 (units unknown ) (unknown) (unknown) (no date) (unknown) (unknown) CLEAR (units unknown ) (unknown) (unknown) (no date) (unknown) (unknown) NEGATIVE (units unknown ) (unknown) (unknown) (no date) (unknown) (unknown) YELLOW (units unknown ) (unknown) (unknown) (no date) (unknown) (unknown) YELLOW (units unknown ) (unknown) Result panel 288 (unknown) (no date) (unknown) (unknown) 0.2 e.u./dl (unknown) (unknown) (no date) (unknown) (unknown) 1 (units unknown ) (unknown) (unknown) (no date) (unknown) (unknown) 1.010 (units unknown ) (unknown) (unknown) (no date) (unknown) (unknown) 3 (units unknown ) (unknown) (unknown) (no date) (unknown) (unknown) 3 g/dl (unknown) (unknown) (no date) (unknown) (unknown) 6.0 (units unknown ) (unknown) (unknown) (no date) (unknown) (unknown) CLEAR (units unknown ) (unknown) (unknown) (no date) (unknown) (unknown) Cult Not Indicated (units unknown ) (unknown) (unknown) (no date) (unknown) (unknown) NEGATIVE (units unknown ) (unknown) (unknown) (no date) (unknown) (unknown) None Seen (units unknown ) (unknown) (unknown) (no date) (unknown) (unknown) None Seen (units unknown ) (unknown) (unknown) (no date) (unknown) (unknown) YELLOW (units unknown ) (unknown) (unknown) (no date) (unknown) (unknown) YELLOW (units unknown ) (unknown) Result panel 289 (unknown) (no date) (unknown) (unknown) Negative (units unknown ) (unknown) (unknown) (no date) (unknown) (unknown) Normal (units unknown ) (unknown) (unknown) (no date) (unknown) (unknown) Positive (units unknown ) (unknown) Result panel 290 (unknown) (no date) (unknown) (unknown) -15.0 mmol/l (unknown) (unknown) (no date) (unknown) (unknown) 12 mmol/l (unknown) (unknown) (no date) (unknown) (unknown) 21 (units unknown ) (unknown) (unknown) (no date) (unknown) (unknown) 24.9 mmhg (unknown) (unknown) (no date) (unknown) (unknown) 24.9 mmhg (unknown) (unknown) (no date) (unknown) (unknown) 7.27 (units unknown ) (unknown) (unknown) (no date) (unknown) (unknown) 7.27 (units unknown ) (unknown) (unknown) (no date) (unknown) (unknown) 97 % (unknown) (unknown) (no date) (unknown) (unknown) 99 mmhg (unknown) Result panel 291 (unknown) (no date) (unknown) (unknown) > 60 ml/min (unknown) (unknown) (no date) (unknown) (unknown) > 60 ml/min (unknown) (unknown) (no date) (unknown) (unknown) < 0.012 ng/ml (unknown) (unknown) (no date) (unknown) (unknown) < 0.012 ng/ml (unknown) (unknown) (no date) (unknown) (unknown) 1.15 mg/dl (unknown) (unknown) (no date) (unknown) (unknown) 1.5 (units unknown ) (unknown) (unknown) (no date) (unknown) (unknown) 1.8 mg/dl (unknown) (unknown) (no date) (unknown) (unknown) 104 u/l (unknown) (unknown) (no date) (unknown) (unknown) 12 mmol/l (unknown) (unknown) (no date) (unknown) (unknown) 132 mmol/l (unknown) (unknown) (no date) (unknown) (unknown) 2.7 mg/dl (unknown) (unknown) (no date) (unknown) (unknown) 20.0 (units unknown ) (unknown) (unknown) (no date) (unknown) (unknown) 23 mg/dl (unknown) (unknown) (no date) (unknown) (unknown) 27 iu/l (unknown) (unknown) (no date) (unknown) (unknown) 3.1 g/dl (unknown) (unknown) (no date) (unknown) (unknown) 4.7 g/dl (unknown) (unknown) (no date) (unknown) (unknown) 44 iu/l (unknown) (unknown) (no date) (unknown) (unknown) 5.0 mmol/l (unknown) (unknown) (no date) (unknown) (unknown) 57 u/l (unknown) (unknown) (no date) (unknown) (unknown) 62 u/l (unknown) (unknown) (no date) (unknown) (unknown) 7.8 g/dl (unknown) (unknown) (no date) (unknown) (unknown) 731 mg/dl (unknown) (unknown) (no date) (unknown) (unknown) 731 mg/dl (unknown) (unknown) (no date) (unknown) (unknown) 9.7 mg/dl (unknown) (unknown) (no date) (unknown) (unknown) 94 mmol/l (unknown) (unknown) (no date) (unknown) (unknown) Test not performed % (unknown) (unknown) (no date) (unknown) (unknown) Test not performed % (unknown) (unknown) (no date) (unknown) (unknown) Test not performed ng/ml (unknown) (unknown) (no date) (unknown) (unknown) Test not performed ng/ml (unknown) Result panel 292 (unknown) (no date) (unknown) (unknown) < 10 mg/dl (unknown) (unknown) (no date) (unknown) (unknown) < 10 mg/dl (unknown) Result panel 293 (unknown) (no date) (unknown) (unknown) < 0.012 ng/ml (unknown) (unknown) (no date) (unknown) (unknown) < 0.012 ng/ml (unknown) (unknown) (no date) (unknown) (unknown) < 10 mg/dl (unknown) (unknown) (no date) (unknown) (unknown) < 10 mg/dl (unknown) Result panel 294 (unknown) (no date) (unknown) (unknown) > 60 ml/min (unknown) (unknown) (no date) (unknown) (unknown) > 60 ml/min (unknown) (unknown) (no date) (unknown) (unknown) 1.12 mg/dl (unknown) (unknown) (no date) (unknown) (unknown) 1.5 (units unknown ) (unknown) (unknown) (no date) (unknown) (unknown) 103 mmol/l (unknown) (unknown) (no date) (unknown) (unknown) 136 mmol/l (unknown) (unknown) (no date) (unknown) (unknown) 2.2 mg/dl (unknown) (unknown) (no date) (unknown) (unknown) 2.8 g/dl (unknown) (unknown) (no date) (unknown) (unknown) 21.4 (units unknown ) (unknown) (unknown) (no date) (unknown) (unknown) 24 mg/dl (unknown) (unknown) (no date) (unknown) (unknown) 30 iu/l (unknown) (unknown) (no date) (unknown) (unknown) 4.1 g/dl (unknown) (unknown) (no date) (unknown) (unknown) 4.4 mmol/l (unknown) (unknown) (no date) (unknown) (unknown) 40 iu/l (unknown) (unknown) (no date) (unknown) (unknown) 532 mg/dl (unknown) (unknown) (no date) (unknown) (unknown) 532 mg/dl (unknown) (unknown) (no date) (unknown) (unknown) 6.9 g/dl (unknown) (unknown) (no date) (unknown) (unknown) 79 u/l (unknown) (unknown) (no date) (unknown) (unknown) 8 mmol/l (unknown) (unknown) (no date) (unknown) (unknown) 8 mmol/l (unknown) (unknown) (no date) (unknown) (unknown) 8.8 mg/dl (unknown) Result panel 295 (unknown) (no date) (unknown) (unknown) 9.5 % (unknown) (unknown) (no date) (unknown) (unknown) 9.5 % (unknown) Result panel 296 (unknown) (no date) (unknown) (unknown) 2.80 uiu/ml (unknown) (unknown) (no date) (unknown) (unknown) 2.80 uiu/ml (unknown) Result panel 297 (unknown) (no date) (unknown) (unknown) (no value) (units unknown ) (unknown) (unknown) (no date) (unknown) (unknown) 05/27/22 05/27/22 Range/Units (units unknown ) (unknown) (unknown) (no date) (unknown) (unknown) 05/27/22 12:55 (units unknown ) (unknown) (unknown) (no date) (unknown) (unknown) 05/27/22 13:08 (units unknown ) (unknown) (unknown) (no date) (unknown) (unknown) 05/27/22 13:09 (units unknown ) (unknown) (unknown) (no date) (unknown) (unknown) 05/27/22 13:50 (units unknown ) (unknown) (unknown) (no date) (unknown) (unknown) 05/27/22 13:53 (units unknown ) (unknown) (unknown) (no date) (unknown) (unknown) 05/27/22 14:15 (units unknown ) (unknown) (unknown) (no date) (unknown) (unknown) 05/27/22 14:30 (units unknown ) (unknown) (unknown) (no date) (unknown) (unknown) 05/27/22 14:40 (units unknown ) (unknown) (unknown) (no date) (unknown) (unknown) 05/27/22 15:12 (units unknown ) (unknown) (unknown) (no date) (unknown) (unknown) 05/27/22 16:28 (units unknown ) (unknown) (unknown) (no date) (unknown) (unknown) 05/27/22 16:50 (units unknown ) (unknown) (unknown) (no date) (unknown) (unknown) 05/27/22 (units unknown ) (unknown) (unknown) (no date) (unknown) (unknown) 12:55 13:50 13:50 (units unknown ) (unknown) (unknown) (no date) (unknown) (unknown) 13:06 05/27/22 (units unknown ) (unknown) (unknown) (no date) (unknown) (unknown) 13:37 05/27/22 (units unknown ) (unknown) (unknown) (no date) (unknown) (unknown) 13:37 (units unknown ) (unknown) (unknown) (no date) (unknown) (unknown) 13:40 05/27/22 (units unknown ) (unknown) (unknown) (no date) (unknown) (unknown) 13:45 05/27/22 (units unknown ) (unknown) (unknown) (no date) (unknown) (unknown) 13:45 (units unknown ) (unknown) (unknown) (no date) (unknown) (unknown) 13:50 13:50 13:50 (units unknown ) (unknown) (unknown) (no date) (unknown) (unknown) 13:55 05/27/22 (units unknown ) (unknown) (unknown) (no date) (unknown) (unknown) 13:55 (units unknown ) (unknown) (unknown) (no date) (unknown) (unknown) 14:00 05/27/22 (units unknown ) (unknown) (unknown) (no date) (unknown) (unknown) 14:05 05/27/22 (units unknown ) (unknown) (unknown) (no date) (unknown) (unknown) 14:05 (units unknown ) (unknown) (unknown) (no date) (unknown) (unknown) 14:10 05/27/22 (units unknown ) (unknown) (unknown) (no date) (unknown) (unknown) 14:10 (units unknown ) (unknown) (unknown) (no date) (unknown) (unknown) 14:15 05/27/22 (units unknown ) (unknown) (unknown) (no date) (unknown) (unknown) 14:15 14:40 14:40 (units unknown ) (unknown) (unknown) (no date) (unknown) (unknown) 14:20 05/27/22 (units unknown ) (unknown) (unknown) (no date) (unknown) (unknown) 14:20 (units unknown ) (unknown) (unknown) (no date) (unknown) (unknown) 14:28 05/27/22 (units unknown ) (unknown) (unknown) (no date) (unknown) (unknown) 14:28 (units unknown ) (unknown) (unknown) (no date) (unknown) (unknown) 14:30 05/27/22 (units unknown ) (unknown) (unknown) (no date) (unknown) (unknown) 14:41 05/27/22 (units unknown ) (unknown) (unknown) (no date) (unknown) (unknown) 14:41 (units unknown ) (unknown) (unknown) (no date) (unknown) (unknown) 14:45 05/27/22 (units unknown ) (unknown) (unknown) (no date) (unknown) (unknown) 15:00 05/27/22 (units unknown ) (unknown) (unknown) (no date) (unknown) (unknown) 15:00 (units unknown ) (unknown) (unknown) (no date) (unknown) (unknown) 15:12 16:28 16:50 (units unknown ) (unknown) (unknown) (no date) (unknown) (unknown) 15:30 05/27/22 (units unknown ) (unknown) (unknown) (no date) (unknown) (unknown) 16:00 (units unknown ) (unknown) (unknown) (no date) (unknown) (unknown) 16:30 05/27/22 (units unknown ) (unknown) (unknown) (no date) (unknown) (unknown) 17:00 05/27/22 (units unknown ) (unknown) (unknown) (no date) (unknown) (unknown) 17:30 (units unknown ) (unknown) (unknown) (no date) (unknown) (unknown) 6599 (units unknown ) (unknown) (unknown) (no date) (unknown) (unknown) ? (units unknown ) (unknown) (unknown) (no date) (unknown) (unknown) ABG Base Excess (-2- 3) mmol/L (units unknown ) (unknown) (unknown) (no date) (unknown) (unknown) ABG Base Excess -15. 0 L (-2-3) mmol/L (units unknown ) (unknown) (unknown) (no date) (unknown) (unknown) ABG HCO3 (23-27) mmol/L (units unknown ) (unknown) (unknown) (no date) (unknown) (unknown) ABG HCO3 12 L (23-27 ) mmol/L (units unknown ) (unknown) (unknown) (no date) (unknown) (unknown) ABG O2 Saturation (9 5-100) % (units unknown ) (unknown) (unknown) (no date) (unknown) (unknown) ABG O2 Saturation 97 (95-100) % (units unknown ) (unknown) (unknown) (no date) (unknown) (unknown) ABG Total CO2 (23-27 ) mmol/L (units unknown ) (unknown) (unknown) (no date) (unknown) (unknown) ABG Total CO2 12 L ( 23-27) mmol/L (units unknown ) (unknown) (unknown) (no date) (unknown) (unknown) ABG pCO2 (35-45) mmHg (units unknown ) (unknown) (unknown) (no date) (unknown) (unknown) ABG pCO2 24.9 L* (35 -45) mmHg (units unknown ) (unknown) (unknown) (no date) (unknown) (unknown) ABG pH (7.35-7.45) (units unknown ) (unknown) (unknown) (no date) (unknown) (unknown) ABG pH 7.27 L* (7.35-7.45) (unit s unknown ) (unknown) (unknown) (no date) (unknown) (unknown) ABG pO2 (80-100) mmHg (units unknown ) (unknown) (unknown) (no date) (unknown) (unknown) ABG pO2 99 (80-100) mmHg (units unknown ) (unknown) (unknown) (no date) (unknown) (unknown) ALT (<50) IU/L (units unknown ) (unknown) (unknown) (no date) (unknown) (unknown) ALT 40 (<50) IU/L (units unknown ) (unknown) (unknown) (no date) (unknown) (unknown) ALT 44 (<50) IU/L (units unknown ) (unknown) (unknown) (no date) (unknown) (unknown) AST (17-59) IU/L (units unknown ) (unknown) (unknown) (no date) (unknown) (unknown) AST 27 (17-59) IU/L (units unknown ) (unknown) (unknown) (no date) (unknown) (unknown) AST 30 (17-59) IU/L (units unknown ) (unknown) (unknown) (no date) (unknown) (unknown) Acetaminophen (Acetaminophen 325 Mg Tablet) 650 mg PO Q6H PRN (units unknown ) (unknown) (unknown) (no date) (unknown) (unknown) Admin: 05/27/22 14:0 7 Dose: 1,000 mls/hr (units unknown ) (unknown) (unknown) (no date) (unknown) (unknown) Admin: 05/27/22 15:0 0 Dose: 250 mls/hr (units unknown ) (unknown) (unknown) (no date) (unknown) (unknown) Admin: 05/27/22 15:2 6 Dose: 6 mls/hr, 6 mls/hr (units unknown ) (unknown) (unknown) (no date) (unknown) (unknown) Age/Sex: 56 / M (units unknown ) (unknown) (unknown) (no date) (unknown) (unknown) Albumin (3.5-5.0) g/dL (units unknown ) (unknown) (unknown) (no date) (unknown) (unknown) Albumin 4.1 (3.5-5.0) g/dL (unit s unknown ) (unknown) (unknown) (no date) (unknown) (unknown) Albumin 4.7 (3.5-5.0) g/dL (unit s unknown ) (unknown) (unknown) (no date) (unknown) (unknown) Albumin/Globulin Rat io (1.0-2.8) (units unknown ) (unknown) (unknown) (no date) (unknown) (unknown) Albumin/Globulin Rat io 1.5 (1.0-2.8) (units unknown ) (unknown) (unknown) (no date) (unknown) (unknown) Alkaline Phosphatase (38-126) U/L (units unknown ) (unknown) (unknown) (no date) (unknown) (unknown) Alkaline Phosphatase 104 (38-126) U/L (units unknown ) (unknown) (unknown) (no date) (unknown) (unknown) Alkaline Phosphatase 79 (38-126) U/L (units unknown ) (unknown) (unknown) (no date) (unknown) (unknown) Allergies (units unknown ) (unknown) (unknown) (no date) (unknown) (unknown) Allergy/AdvReac Type Severity Reaction Status Date / Time (units unknown ) (unknown) (unknown) (no date) (unknown) (unknown) Amorphous Sediment 1 (units unknown ) (unknown) (unknown) (no date) (unknown) (unknown) Amorphous Sediment (units unknown ) (unknown) (unknown) (no date) (unknown) (unknown) Arterial Blood Gas Stat (units unknown ) (unknown) (unknown) (no date) (unknown) (unknown) Attestation: Everett tam reviewed and interpreted this ECG as follows: (units unknown ) (unknown) (unknown) (no date) (unknown) (unknown) BUN (9-20) mg/dL (units unknown ) (unknown) (unknown) (no date) (unknown) (unknown) BUN 23 H (9-20) mg/dL (units unknown ) (unknown) (unknown) (no date) (unknown) (unknown) BUN 24 H (9-20) mg/dL (units unknown ) (unknown) (unknown) (no date) (unknown) (unknown) BUN/Creatinine Ratio (6-22) (units unknown ) (unknown) (unknown) (no date) (unknown) (unknown) BUN/Creatinine Ratio 20.0 (6-22) (units unknown ) (unknown) (unknown) (no date) (unknown) (unknown) BUN/Creatinine Ratio 21.4 (6-22) (units unknown ) (unknown) (unknown) (no date) (unknown) (unknown) Baso # (Auto) (0-100) /uL (units unknown ) (unknown) (unknown) (no date) (unknown) (unknown) Baso # (Auto) 100 (0 -100) /uL (units unknown ) (unknown) (unknown) (no date) (unknown) (unknown) Baso % (Auto) (0-2) % (units unknown ) (unknown) (unknown) (no date) (unknown) (unknown) Baso % (Auto) 0.5 (0-2) % (units unknown ) (unknown) (unknown) (no date) (unknown) (unknown) Blood Culture Stat (units unknown ) (unknown) (unknown) (no date) (unknown) (unknown) Blood Pressure 121/58 L (units unknown ) (unknown) (unknown) (no date) (unknown) (unknown) Blood Pressure 123/62 (units unknown ) (unknown) (unknown) (no date) (unknown) (unknown) Blood Pressure 128/58 L (units unknown ) (unknown) (unknown) (no date) (unknown) (unknown) Blood Pressure 133/6 1 152/61 H (units unknown ) (unknown) (unknown) (no date) (unknown) (unknown) Blood Pressure 139/6 3 141/97 H (units unknown ) (unknown) (unknown) (no date) (unknown) (unknown) Blood Pressure 140/6 1 108/53 L (units unknown ) (unknown) (unknown) (no date) (unknown) (unknown) Blood Pressure 142/87 H (units unknown ) (unknown) (unknown) (no date) (unknown) (unknown) Blood Pressure 144/5 8 H 148/67 H (units unknown ) (unknown) (unknown) (no date) (unknown) (unknown) Blood Pressure 148/6 9 H 05/27/22 13:06 (units unknown ) (unknown) (unknown) (no date) (unknown) (unknown) Blood Pressure 148/6 9 H 129/63 (units unknown ) (unknown) (unknown) (no date) (unknown) (unknown) Blood Pressure (units unknown ) (unknown) (unknown) (no date) (unknown) (unknown) Bones and chest wall :? No suspicious bony lesions.? Overlying soft tissues (units unknown ) (unknown) (unknown) (no date) (unknown) (unknown) CK-MB (CK-2) Rel Index TNP (unit s unknown ) (unknown) (unknown) (no date) (unknown) (unknown) CK-MB (CK-2) Rel Index (units unknown ) (unknown) (unknown) (no date) (unknown) (unknown) CK-MB (CK-2) TNP (units unknown ) (unknown) (unknown) (no date) (unknown) (unknown) CK-MB (CK-2) (units unknown ) (unknown) (unknown) (no date) (unknown) (unknown) CMP [Comprehensive Metabolic Panel] Stat (units unknown ) (unknown) (unknown) (no date) (unknown) (unknown) COMPARISON:[facility], CR, CHEST 1 VIEW, 06/20/2016, 20:50. (units unknown ) (unknown) (unknown) (no date) (unknown) (unknown) COVID19 -Nasal RAPID Stat (units unknown ) (unknown) (unknown) (no date) (unknown) (unknown) Calcium (8.4-10.2) mg/dL (units unknown ) (unknown) (unknown) (no date) (unknown) (unknown) Calcium 8.8 (8.4-10. 2) mg/dL (units unknown ) (unknown) (unknown) (no date) (unknown) (unknown) Calcium 9.7 (8.4-10. 2) mg/dL (units unknown ) (unknown) (unknown) (no date) (unknown) (unknown) Carbon Dioxide (22-3 2) mmol/L (units unknown ) (unknown) (unknown) (no date) (unknown) (unknown) Carbon Dioxide 12 L (22-32) mmol/L (units unknown ) (unknown) (unknown) (no date) (unknown) (unknown) Carbon Dioxide 8 L* (22-32) mmol/L (units unknown ) (unknown) (unknown) (no date) (unknown) (unknown) Ceftriaxone Sodium 1 ,000 mg/ (Sodium Chloride) 100 mls @ 200 mls/hr IV Q24H SRIDEVI (units unknown ) (unknown) (unknown) (no date) (unknown) (unknown) Chest x-ray: (units unknown ) (unknown) (unknown) (no date) (unknown) (unknown) Chief complaint: Clair betic Problem (units unknown ) (unknown) (unknown) (no date) (unknown) (unknown) Chloride (98-107) mmol/L (units unknown ) (unknown) (unknown) (no date) (unknown) (unknown) Chloride 103 (98-107 ) mmol/L (units unknown ) (unknown) (unknown) (no date) (unknown) (unknown) Chloride 94 L (98-10 7) mmol/L (units unknown ) (unknown) (unknown) (no date) (unknown) (unknown) Clinical Impression: (units unknown ) (unknown) (unknown) (no date) (unknown) (unknown) Complete Blood Count AUTO DIFF Stat (units unknown ) (unknown) (unknown) (no date) (unknown) (unknown) Comprehensive Metabo lic Panel Stat (units unknown ) (unknown) (unknown) (no date) (unknown) (unknown) [place] [facility] [place] [facility] [place] Stat (units unknown ) (unknown) (unknown) (no date) (unknown) (unknown) Course (units unknown ) (unknown) (unknown) (no date) (unknown) (unknown) Creatinine (0.66-1.2 5) mg/dL (units unknown ) (unknown) (unknown) (no date) (unknown) (unknown) Creatinine 1.12 (0.66-1.25) mg/dL (units unknown ) (unknown) (unknown) (no date) (unknown) (unknown) Creatinine 1.15 (0.66-1.25) mg/dL (units unknown ) (unknown) (unknown) (no date) (unknown) (unknown) : 1965 Acct:[id number] (units unknown ) (unknown) (unknown) (no date) (unknown) (unknown) Date of Service: 05/27/22 (units unknown ) (unknown) (unknown) (no date) (unknown) (unknown) Departure (units unknown ) (unknown) (unknown) (no date) (unknown) (unknown) Discharge Plan (units unknown ) (unknown) (unknown) (no date) (unknown) (unknown) Discontinued Medications (units unknown ) (unknown) (unknown) (no date) (unknown) (unknown) Documented By: OWEN Co-signed By: CTS (units unknown ) (unknown) (unknown) (no date) (unknown) (unknown) Documented By: OWEN Co-signed By: KLS (units unknown ) (unknown) (unknown) (no date) (unknown) (unknown) Documented By: OWEN (units unknown ) (unknown) (unknown) (no date) (unknown) (unknown) ECG Data (units unknown ) (unknown) (unknown) (no date) (unknown) (unknown) ED Orders (units unknown ) (unknown) (unknown) (no date) (unknown) (unknown) EKG-12 Lead Stat (units unknown ) (unknown) (unknown) (no date) (unknown) (unknown) ER Physician: Dalton Graff D.O. (units unknown ) (unknown) (unknown) (no date) (unknown) (unknown) ETOH [Ethanol (ETOH)] Stat (unit s unknown ) (unknown) (unknown) (no date) (unknown) (unknown) Emergency Report (units unknown ) (unknown) (unknown) (no date) (unknown) (unknown) Eos # (Auto) (0-450) /uL (units unknown ) (unknown) (unknown) (no date) (unknown) (unknown) Eos # (Auto) 0 (0-450) /uL (unit s unknown ) (unknown) (unknown) (no date) (unknown) (unknown) Eos % (Auto) (2-4) % (units unknown ) (unknown) (unknown) (no date) (unknown) (unknown) Eos % (Auto) 0.1 L (2-4) % (unit s unknown ) (unknown) (unknown) (no date) (unknown) (unknown) Estimated GFR > 60 ( >60) mL/min (units unknown ) (unknown) (unknown) (no date) (unknown) (unknown) Estimated GFR (>60) mL/min (unit s unknown ) (unknown) (unknown) (no date) (unknown) (unknown) Ethyl Alcohol < 10 ( - 10) mg/dL (units unknown ) (unknown) (unknown) (no date) (unknown) (unknown) Ethyl Alcohol ( - 10 ) mg/dL (units unknown ) (unknown) (unknown) (no date) (unknown) (unknown) Exam (units unknown ) (unknown) (unknown) (no date) (unknown) (unknown) FINDINGS:? (units unknown ) (unknown) (unknown) (no date) (unknown) (unknown) FiO2 21 (units unknown ) (unknown) (unknown) (no date) (unknown) (unknown) FiO2 (units unknown ) (unknown) (unknown) (no date) (unknown) (unknown) General (units unknown ) (unknown) (unknown) (no date) (unknown) (unknown) Globulin (1.7-4.1) g/dL (units unknown ) (unknown) (unknown) (no date) (unknown) (unknown) Globulin 2.8 (1.7-4. 1) g/dL (units unknown ) (unknown) (unknown) (no date) (unknown) (unknown) Globulin 3.1 (1.7-4. 1) g/dL (units unknown ) (unknown) (unknown) (no date) (unknown) (unknown) Glucose (70-100) mg/dL (units unknown ) (unknown) (unknown) (no date) (unknown) (unknown) Glucose 532 H* (70-1 00) mg/dL (units unknown ) (unknown) (unknown) (no date) (unknown) (unknown) Glucose 731 H* (70-1 00) mg/dL (units unknown ) (unknown) (unknown) (no date) (unknown) (unknown) Glucose POC 367 (units unknown ) (unknown) (unknown) (no date) (unknown) (unknown) HPI - General Adult (units unknown ) (unknown) (unknown) (no date) (unknown) (unknown) Hct (41-53) % (units unknown ) (unknown) (unknown) (no date) (unknown) (unknown) Hct 44.7 (41-53) % (units unknown ) (unknown) (unknown) (no date) (unknown) (unknown) Heart failure, Hypox ia, Back pain (units unknown ) (unknown) (unknown) (no date) (unknown) (unknown) Hemoglobin A1c (4.0-6.0) % (unit s unknown ) (unknown) (unknown) (no date) (unknown) (unknown) Hemoglobin A1c 9.5 H (4.0-6.0) % (units unknown ) (unknown) (unknown) (no date) (unknown) (unknown) Hgb (13.5-17.5) g/dL (units unknown ) (unknown) (unknown) (no date) (unknown) (unknown) Hgb 14.9 (13.5-17.5) g/dL (units unknown ) (unknown) (unknown) (no date) (unknown) (unknown) Home Medications (units unknown ) (unknown) (unknown) (no date) (unknown) (unknown) IMPRESSION:? No acut e cardiopulmonary disease. (units unknown ) (unknown) (unknown) (no date) (unknown) (unknown) INDICATIONS:? chest pain (units unknown ) (unknown) (unknown) (no date) (unknown) (unknown) INSULIN DRIP PREMIX (Myxredlin Drip Premix) 100 unit in 100 mls @ 6 mls/hr IV (units unknown ) (unknown) (unknown) (no date) (unknown) (unknown) Ibuprofen (Ibuprofen 600 Mg Tablet) 800 mg PO Q6H PRN (units unknown ) (unknown) (unknown) (no date) (unknown) (unknown) Imaging Data (units unknown ) (unknown) (unknown) (no date) (unknown) (unknown) Initial EKG (units unknown ) (unknown) (unknown) (no date) (unknown) (unknown) Initial Vital Signs (units unknown ) (unknown) (unknown) (no date) (unknown) (unknown) Initial Vital Signs: (units unknown ) (unknown) (unknown) (no date) (unknown) (unknown) Insulin dependent di abetes mellitus (units unknown ) (unknown) (unknown) (no date) (unknown) (unknown) Interpretation: (units unknown ) (unknown) (unknown) (no date) (unknown) (unknown) [address] [address] (units unknown ) (unknown) (unknown) (no date) (unknown) (unknown) Ketones (<0.27) mmol/L (units unknown ) (unknown) (unknown) (no date) (unknown) (unknown) Ketones (Beta-Hydroxybutyrate) Stat (units unknown ) (unknown) (unknown) (no date) (unknown) (unknown) Ketones 6.46 H (<0.2 7) mmol/L (units unknown ) (unknown) (unknown) (no date) (unknown) (unknown) Lab Data (units unknown ) (unknown) (unknown) (no date) (unknown) (unknown) Lab Results (units unknown ) (unknown) (unknown) (no date) (unknown) (unknown) Lab results reviewed : Yes I reviewed the patient's lab results. (units unknown ) (unknown) (unknown) (no date) (unknown) (unknown) Labs: (units unknown ) (unknown) (unknown) (no date) (unknown) (unknown) Last Admin: 05/27/22 14:06 Dose: 4 mg (units unknown ) (unknown) (unknown) (no date) (unknown) (unknown) Last Admin: 05/27/22 15:00 Dose: 10 mg (units unknown ) (unknown) (unknown) (no date) (unknown) (unknown) Last Infusion: 05/27 15:04 Dose: 0 mls/hr (units unknown ) (unknown) (unknown) (no date) (unknown) (unknown) Last Infusion: 05/27 18:49 Dose: 0 mls/hr (units unknown ) (unknown) (unknown) (no date) (unknown) (unknown) Last Titration: 05/15 06/06 15:44 Dose: 12 mls/hr, 12 mls/hr (units unknown ) (unknown) (unknown) (no date) (unknown) (unknown) Lipase (23-300) U/L (units unknown ) (unknown) (unknown) (no date) (unknown) (unknown) Lipase 62 (23-300) U/L (units unknown ) (unknown) (unknown) (no date) (unknown) (unknown) Lipase Stat (units unknown ) (unknown) (unknown) (no date) (unknown) (unknown) Lungs and pleura:? L ungs are clear.? No pleural effusions or pneumothorax.? (units unknown ) (unknown) (unknown) (no date) (unknown) (unknown) Lymph # (Auto) (1100 -4500) /uL (units unknown ) (unknown) (unknown) (no date) (unknown) (unknown) Lymph # (Auto) 700 L (7629-9045) /uL (units unknown ) (unknown) (unknown) (no date) (unknown) (unknown) Lymph % (Auto) (25-40) % (units unknown ) (unknown) (unknown) (no date) (unknown) (unknown) Lymph % (Auto) 6.4 L (25-40) % (units unknown ) (unknown) (unknown) (no date) (unknown) (unknown) MCH (26-34) PG (units unknown ) (unknown) (unknown) (no date) (unknown) (unknown) MCH 29.7 (26-34) PG (units unknown ) (unknown) (unknown) (no date) (unknown) (unknown) MCHC (30-36) % (units unknown ) (unknown) (unknown) (no date) (unknown) (unknown) MCHC 33.3 (30-36) % (units unknown ) (unknown) (unknown) (no date) (unknown) (unknown) MCV (80-100) fL (units unknown ) (unknown) (unknown) (no date) (unknown) (unknown) MCV 89.1 (80-100) fL (units unknown ) (unknown) (unknown) (no date) (unknown) (unknown) Magnesium (1.6-2.3) mg/dL (units unknown ) (unknown) (unknown) (no date) (unknown) (unknown) Magnesium 1.8 (1.6-2 .3) mg/dL (units unknown ) (unknown) (unknown) (no date) (unknown) (unknown) Magnesium Stat (units unknown ) (unknown) (unknown) (no date) (unknown) (unknown) Mediastinum:? Medias tinal contours appear normal.? Heart size is normal.? (units unknown ) (unknown) (unknown) (no date) (unknown) (unknown) Medical Decision Making (units unknown ) (unknown) (unknown) (no date) (unknown) (unknown) Medical History (Upd ated 05/27/22 @ 15:45 by Dalton Graff DO) (units unknown ) (unknown) (unknown) (no date) (unknown) (unknown) Medication Instructi ons Recorded Confirmed (units unknown ) (unknown) (unknown) (no date) (unknown) (unknown) Medication Instructi ons Recorded (units unknown ) (unknown) (unknown) (no date) (unknown) (unknown) Melatonin (Melatonin 3 Mg Tablet) 6 mg PO BEDTIME PRN (units unknown ) (unknown) (unknown) (no date) (unknown) (unknown) Metoclopramide HCl (Metoclopramide 10 Mg/2 Ml Inj) 10 mg IV NOW ONE (units unknown ) (unknown) (unknown) (no date) (unknown) (unknown) Metronidazole (Metronidazole 500 Mg Tablet) 500 mg PO TID SRIDEVI (units unknown ) (unknown) (unknown) (no date) (unknown) (unknown) Mode of arrival: EMS (units unknown ) (unknown) (unknown) (no date) (unknown) (unknown) [place] # (Auto) (0-900) /uL (units unknown ) (unknown) (unknown) (no date) (unknown) (unknown) [place] # (Auto) 300 (0 -900) /uL (units unknown ) (unknown) (unknown) (no date) (unknown) (unknown) [place] % (Auto) (3-14) % (units unknown ) (unknown) (unknown) (no date) (unknown) (unknown) [place] % (Auto) 2.7 L (3-14) % (units unknown ) (unknown) (unknown) (no date) (unknown) (unknown) Naloxone HCl (Naloxo ne 0.4 Mg/Ml Vial) 0.2 mg IV Q2MIN PRN (units unknown ) (unknown) (unknown) (no date) (unknown) (unknown) Neut # (Auto) (1500- 7000) /uL (units unknown ) (unknown) (unknown) (no date) (unknown) (unknown) Neut # (Auto) 47704 H (9017-7151) /uL (units unknown ) (unknown) (unknown) (no date) (unknown) (unknown) Neut % (Auto) (50-75) % (units unknown ) (unknown) (unknown) (no date) (unknown) (unknown) Neut % (Auto) 90.3 H (50-75) % (units unknown ) (unknown) (unknown) (no date) (unknown) (unknown) No ST T wave changes (units unknown ) (unknown) (unknown) (no date) (unknown) (unknown) Normal QRS (units unknown ) (unknown) (unknown) (no date) (unknown) (unknown) Normal axis (units unknown ) (unknown) (unknown) (no date) (unknown) (unknown) Ondansetron HCl (Ondansetron 4 Mg Odt) 4 mg SL NOW PRN (units unknown ) (unknown) (unknown) (no date) (unknown) (unknown) Ondansetron HCl (Ondansetron 4 Mg/2 Ml Inj) 4 mg IV NOW PRN (units unknown ) (unknown) (unknown) (no date) (unknown) (unknown) Ordered: (units unknown ) (unknown) (unknown) (no date) (unknown) (unknown) Orders (units unknown ) (unknown) (unknown) (no date) (unknown) (unknown) Oxygen Delivery Meth od Room Air 05/27/22 13:06 (units unknown ) (unknown) (unknown) (no date) (unknown) (unknown) Oxygen Delivery Meth od Room Air (units unknown ) (unknown) (unknown) (no date) (unknown) (unknown) Oxygen Delivery Method (units unknown ) (unknown) (unknown) (no date) (unknown) (unknown) PRN Reason: Constipation (units unknown ) (unknown) (unknown) (no date) (unknown) (unknown) PRN Reason: Fever/Mi ld Pain (1-3) (units unknown ) (unknown) (unknown) (no date) (unknown) (unknown) PRN Reason: Insomnia (units unknown ) (unknown) (unknown) (no date) (unknown) (unknown) PRN Reason: Nausea A nd Vomiting (units unknown ) (unknown) (unknown) (no date) (unknown) (unknown) PRN Reason: Opiate Reversal (units unknown ) (unknown) (unknown) (no date) (unknown) (unknown) PRN (units unknown ) (unknown) (unknown) (no date) (unknown) (unknown) PROCEDURE:? XR CHEST 1V (units unknown ) (unknown) (unknown) (no date) (unknown) (unknown) Patient Disposition: Home (units unknown ) (unknown) (unknown) (no date) (unknown) (unknown) Patient History (units unknown ) (unknown) (unknown) (no date) (unknown) (unknown) Patient: Avinash Meredith MR#: [id number] (units unknown ) (unknown) (unknown) (no date) (unknown) (unknown) Phosphorous Stat (units unknown ) (unknown) (unknown) (no date) (unknown) (unknown) Phosphorus (2.5-4.5) mg/dL (unit s unknown ) (unknown) (unknown) (no date) (unknown) (unknown) Phosphorus 3.6 (2.5- 4.5) mg/dL (units unknown ) (unknown) (unknown) (no date) (unknown) (unknown) Plt Count (150-400) X103/uL (units unknown ) (unknown) (unknown) (no date) (unknown) (unknown) Plt Count 243 (150-4 00) X103/uL (units unknown ) (unknown) (unknown) (no date) (unknown) (unknown) Point of Care Testing (units unknown ) (unknown) (unknown) (no date) (unknown) (unknown) Point of care testing: (units unknown ) (unknown) (unknown) (no date) (unknown) (unknown) Polyethylene Glycol (Polyethylene Glycol 3350 17 Gm Powd.Pack) 17 gm PO DAILY (units unknown ) (unknown) (unknown) (no date) (unknown) (unknown) Potassium (3.4-5.1) mmol/L (unit s unknown ) (unknown) (unknown) (no date) (unknown) (unknown) Potassium 4.4 (3.4-5 .1) mmol/L (units unknown ) (unknown) (unknown) (no date) (unknown) (unknown) Potassium 5.0 (3.4-5 .1) mmol/L (units unknown ) (unknown) (unknown) (no date) (unknown) (unknown) Previous Rx's (units unknown ) (unknown) (unknown) (no date) (unknown) (unknown) Pulse Oximetry 100 05/27/22 13:06 (units unknown ) (unknown) (unknown) (no date) (unknown) (unknown) Pulse Oximetry 100 100 99 (units unknown ) (unknown) (unknown) (no date) (unknown) (unknown) Pulse Oximetry 100 100 (units unknown ) (unknown) (unknown) (no date) (unknown) (unknown) Pulse Oximetry 100 (units unknown ) (unknown) (unknown) (no date) (unknown) (unknown) Pulse Oximetry 97 98 (units unknown ) (unknown) (unknown) (no date) (unknown) (unknown) Pulse Oximetry 98 100 (units unknown ) (unknown) (unknown) (no date) (unknown) (unknown) Pulse Oximetry 99 100 (units unknown ) (unknown) (unknown) (no date) (unknown) (unknown) Pulse Rate 73 77 (units unknown ) (unknown) (unknown) (no date) (unknown) (unknown) Pulse Rate 74 76 (units unknown ) (unknown) (unknown) (no date) (unknown) (unknown) Pulse Rate 75 (units unknown ) (unknown) (unknown) (no date) (unknown) (unknown) Pulse Rate 76 77 (units unknown ) (unknown) (unknown) (no date) (unknown) (unknown) Pulse Rate 78 13:06 (units unknown ) (unknown) (unknown) (no date) (unknown) (unknown) Pulse Rate 78 76 (units unknown ) (unknown) (unknown) (no date) (unknown) (unknown) Pulse Rate 78 (units unknown ) (unknown) (unknown) (no date) (unknown) (unknown) Pulse Rate 79 (units unknown ) (unknown) (unknown) (no date) (unknown) (unknown) Pulse Rate 81 74 (units unknown ) (unknown) (unknown) (no date) (unknown) (unknown) Pulse Rate 83 76 72 (units unknown ) (unknown) (unknown) (no date) (unknown) (unknown) Pulse Rate 92 H 80 77 (units unknown ) (unknown) (unknown) (no date) (unknown) (unknown) QTC 486 (units unknown ) (unknown) (unknown) (no date) (unknown) (unknown) QTC 5 a 1 (units unknown ) (unknown) (unknown) (no date) (unknown) (unknown) RBC (4.5-5.9) X106/uL (units unknown ) (unknown) (unknown) (no date) (unknown) (unknown) RBC 5.02 (4.5-5.9) X106/uL (unit s unknown ) (unknown) (unknown) (no date) (unknown) (unknown) RDW (11.6-14.8) % (units unknown ) (unknown) (unknown) (no date) (unknown) (unknown) RDW 13.3 (11.6-14.8) % (units unknown ) (unknown) (unknown) (no date) (unknown) (unknown) Radiologist's Impression: (units unknown ) (unknown) (unknown) (no date) (unknown) (unknown) Related Data (units unknown ) (unknown) (unknown) (no date) (unknown) (unknown) Relatively unchanged from initial EKG (units unknown ) (unknown) (unknown) (no date) (unknown) (unknown) Repeat EKG (units unknown ) (unknown) (unknown) (no date) (unknown) (unknown) Respiratory Rate 18 19 18 (units unknown ) (unknown) (unknown) (no date) (unknown) (unknown) Respiratory Rate 20 (units unknown ) (unknown) (unknown) (no date) (unknown) (unknown) Respiratory Rate 22 05/27/22 13:06 (units unknown ) (unknown) (unknown) (no date) (unknown) (unknown) Respiratory Rate 22 15 (units unknown ) (unknown) (unknown) (no date) (unknown) (unknown) Respiratory Rate 27 H 28 H (unit s unknown ) (unknown) (unknown) (no date) (unknown) (unknown) Respiratory Rate 28 H 38 H (unit s unknown ) (unknown) (unknown) (no date) (unknown) (unknown) Respiratory Rate 28 H (units unknown ) (unknown) (unknown) (no date) (unknown) (unknown) Respiratory Rate 29 H (units unknown ) (unknown) (unknown) (no date) (unknown) (unknown) Respiratory Rate 33 H (units unknown ) (unknown) (unknown) (no date) (unknown) (unknown) Respiratory Rate 41 H 19 (units unknown ) (unknown) (unknown) (no date) (unknown) (unknown) Respiratory Rate 41 H 28 H 27 H (units unknown ) (unknown) (unknown) (no date) (unknown) (unknown) Respiratory Rate 44 H 27 H (unit s unknown ) (unknown) (unknown) (no date) (unknown) (unknown) SARS-CoV-2 (PCR) (Negative) (units unknown ) (unknown) (unknown) (no date) (unknown) (unknown) SARS-CoV-2 (PCR) Neg ative (Negative) (units unknown ) (unknown) (unknown) (no date) (unknown) (unknown) Sennosides (Sennosid es 8.6 Mg Tablet) 8.6 mg PO BID PRN (units unknown ) (unknown) (unknown) (no date) (unknown) (unknown) Signed By: (units unknown ) (unknown) (unknown) (no date) (unknown) (unknown) Sinus rhythm (units unknown ) (unknown) (unknown) (no date) (unknown) (unknown) Smoking Status: Form er smoker (units unknown ) (unknown) (unknown) (no date) (unknown) (unknown) Social History ([place] 10/16/17 @ 05:32 by Gege Greenwood DO) (units unknown ) (unknown) (unknown) (no date) (unknown) (unknown) Sodium (137-145) mmol/L (units unknown ) (unknown) (unknown) (no date) (unknown) (unknown) Sodium 132 L (137-14 5) mmol/L (units unknown ) (unknown) (unknown) (no date) (unknown) (unknown) Sodium 136 L (137-14 5) mmol/L (units unknown ) (unknown) (unknown) (no date) (unknown) (unknown) Sodium Chloride (Nor mal Saline 0.9%) 1,000 mls @ 1,000 mls/hr IV BOLUS ONE (units unknown ) (unknown) (unknown) (no date) (unknown) (unknown) Sodium Chloride (Nor mal Saline 0.9%) 1,000 mls @ 250 mls/hr IV CONT SRIDEVI (units unknown ) (unknown) (unknown) (no date) (unknown) (unknown) Source: patient and EMS (units unknown ) (unknown) (unknown) (no date) (unknown) (unknown) Stated complaint: ch est pain/ n+v/ high glucose (units unknown ) (unknown) (unknown) (no date) (unknown) (unknown) Stop: 05/27/22 14:48 (units unknown ) (unknown) (unknown) (no date) (unknown) (unknown) Stop: 05/27/22 14:53 (units unknown ) (unknown) (unknown) (no date) (unknown) (unknown) Stop: 05/30/22 17:59 (units unknown ) (unknown) (unknown) (no date) (unknown) (unknown) Substance Use Type: marijuana (units unknown ) (unknown) (unknown) (no date) (unknown) (unknown) Surgical changes and devices:? None.? (units unknown ) (unknown) (unknown) (no date) (unknown) (unknown) TECHNIQUE:? One view of the chest was acquired.? (units unknown ) (unknown) (unknown) (no date) (unknown) (unknown) TITRATE SRIDEVI; Protocol (units unknown ) (unknown) (unknown) (no date) (unknown) (unknown) TSH (0.47-4.68) uIU/mL (units unknown ) (unknown) (unknown) (no date) (unknown) (unknown) TSH 2.80 (0.47-4.68) uIU/mL (units unknown ) (unknown) (unknown) (no date) (unknown) (unknown) Temperature 97.5 F L 05/27/22 13:06 (units unknown ) (unknown) (unknown) (no date) (unknown) (unknown) Temperature 97.5 F L (units unknown ) (unknown) (unknown) (no date) (unknown) (unknown) Temperature (units unknown ) (unknown) (unknown) (no date) (unknown) (unknown) Time Seen by Provide r: 05/27/22 13:38 (units unknown ) (unknown) (unknown) (no date) (unknown) (unknown) Total Bilirubin (0.2 -1.3) mg/dL (units unknown ) (unknown) (unknown) (no date) (unknown) (unknown) Total Bilirubin 2.2 H (0.2-1.3) mg/dL (units unknown ) (unknown) (unknown) (no date) (unknown) (unknown) Total Bilirubin 2.7 H (0.2-1.3) mg/dL (units unknown ) (unknown) (unknown) (no date) (unknown) (unknown) Total Creatine Kinas e (55-170) U/L (units unknown ) (unknown) (unknown) (no date) (unknown) (unknown) Total Creatine Kin[place] e 57 (55-170) U/L (units unknown ) (unknown) (unknown) (no date) (unknown) (unknown) Total Protein (6.3-8 .2) g/dL (units unknown ) (unknown) (unknown) (no date) (unknown) (unknown) Total Protein 6.9 (6.3-8.2) g/dL (units unknown ) (unknown) (unknown) (no date) (unknown) (unknown) Total Protein 7.8 (6.3-8.2) g/dL (units unknown ) (unknown) (unknown) (no date) (unknown) (unknown) Troponin + CK Cardia c Panel Stat (units unknown ) (unknown) (unknown) (no date) (unknown) (unknown) Troponin I < 0.012 (0.01-0.034) ng/mL (units unknown ) (unknown) (unknown) (no date) (unknown) (unknown) Troponin I (0.01-0.0 34) ng/mL (units unknown ) (unknown) (unknown) (no date) (unknown) (unknown) Troponin I Stat (units unknown ) (unknown) (unknown) (no date) (unknown) (unknown) U Benzodiazepines Sc rn (Negative) (units unknown ) (unknown) (unknown) (no date) (unknown) (unknown) U Benzodiazepines Sc rn Negative (Negative) (units unknown ) (unknown) (unknown) (no date) (unknown) (unknown) U Marijuana (THC) Sc reen (Negative) (units unknown ) (unknown) (unknown) (no date) (unknown) (unknown) U Marijuana (THC) Sc reen Positive H (Negative) (units unknown ) (unknown) (unknown) (no date) (unknown) (unknown) U Methamphetamines S crn (Negative) (units unknown ) (unknown) (unknown) (no date) (unknown) (unknown) U Methamphetamines S crn Negative (Negative) (units unknown ) (unknown) (unknown) (no date) (unknown) (unknown) U Opiates 300ng/mL c ut (Negative) (units unknown ) (unknown) (unknown) (no date) (unknown) (unknown) U Opiates 300ng/mL c ut Negative (Negative) (units unknown ) (unknown) (unknown) (no date) (unknown) (unknown) U Tricyclic Antidepr ess (Negative) (units unknown ) (unknown) (unknown) (no date) (unknown) (unknown) U Tricyclic Antidepr ess Negative (Negative) (units unknown ) (unknown) (unknown) (no date) (unknown) (unknown) U-100 Insulin) (units unknown ) (unknown) (unknown) (no date) (unknown) (unknown) Ur Amphetamines Scre en (Negative) (units unknown ) (unknown) (unknown) (no date) (unknown) (unknown) Ur Amphetamines Scre en Negative (Negative) (units unknown ) (unknown) (unknown) (no date) (unknown) (unknown) Ur Barbiturates Scre en (Negative) (units unknown ) (unknown) (unknown) (no date) (unknown) (unknown) Ur Barbiturates Scre en Negative (Negative) (units unknown ) (unknown) (unknown) (no date) (unknown) (unknown) Ur Culture Indicated ? Cult not indicated (units unknown ) (unknown) (unknown) (no date) (unknown) (unknown) Ur Culture Indicated? (units unknown ) (unknown) (unknown) (no date) (unknown) (unknown) Ur Leukocyte [place] e (NEGATIVE) (units unknown ) (unknown) (unknown) (no date) (unknown) (unknown) Ur Leukocyte [place] e Negative (NEGATIVE) (units unknown ) (unknown) (unknown) (no date) (unknown) (unknown) Ur MDMA Scrn ([place] y) (Negative) (units unknown ) (unknown) (unknown) (no date) (unknown) (unknown) Ur MDMA Scrn ([place] y) Negative (Negative) (units unknown ) (unknown) (unknown) (no date) (unknown) (unknown) Ur Oxycodone Screen (Negative) (units unknown ) (unknown) (unknown) (no date) (unknown) (unknown) Ur Oxycodone Screen Negative (Negative) (units unknown ) (unknown) (unknown) (no date) (unknown) (unknown) Ur Phencyclidine Scr n (Negative) (units unknown ) (unknown) (unknown) (no date) (unknown) (unknown) Ur Phencyclidine Scr n Negative (Negative) (units unknown ) (unknown) (unknown) (no date) (unknown) (unknown) Ur Specific [place] (1.000-1.035) (units unknown ) (unknown) (unknown) (no date) (unknown) (unknown) Ur Specific [place] 1.010 (1.000-1.035) (units unknown ) (unknown) (unknown) (no date) (unknown) (unknown) Urinalysis and Micro scopic Stat (units unknown ) (unknown) (unknown) (no date) (unknown) (unknown) Urine Appearance Clear (units unknown ) (unknown) (unknown) (no date) (unknown) (unknown) Urine Appearance (units unknown ) (unknown) (unknown) (no date) (unknown) (unknown) Urine Bacteria (None) (units unknown ) (unknown) (unknown) (no date) (unknown) (unknown) Urine Bacteria None seen (None) (units unknown ) (unknown) (unknown) (no date) (unknown) (unknown) Urine Bilirubin (NEGATIVE) (unit s unknown ) (unknown) (unknown) (no date) (unknown) (unknown) Urine Bilirubin Nega tive (NEGATIVE) (units unknown ) (unknown) (unknown) (no date) (unknown) (unknown) Urine Cocaine Screen (Negative) (units unknown ) (unknown) (unknown) (no date) (unknown) (unknown) Urine Cocaine Screen Negative (Negative) (units unknown ) (unknown) (unknown) (no date) (unknown) (unknown) Urine Color Yellow (units unknown ) (unknown) (unknown) (no date) (unknown) (unknown) Urine Color (units unknown ) (unknown) (unknown) (no date) (unknown) (unknown) Urine Culture Stat (units unknown ) (unknown) (unknown) (no date) (unknown) (unknown) Urine Drug Screen, R apid Stat (units unknown ) (unknown) (unknown) (no date) (unknown) (unknown) Urine Glucose (UA) (Negative) g/dL (units unknown ) (unknown) (unknown) (no date) (unknown) (unknown) Urine Glucose (UA) 3 + H (Negative) g/dL (units unknown ) (unknown) (unknown) (no date) (unknown) (unknown) Urine Ketones (NEGATIVE) (units unknown ) (unknown) (unknown) (no date) (unknown) (unknown) Urine Ketones 3+ H (NEGATIVE) (units unknown ) (unknown) (unknown) (no date) (unknown) (unknown) Urine Methadone Scre en (Negative) (units unknown ) (unknown) (unknown) (no date) (unknown) (unknown) Urine Methadone Scre en Negative (Negative) (units unknown ) (unknown) (unknown) (no date) (unknown) (unknown) Urine Nitrate (Negative) (units unknown ) (unknown) (unknown) (no date) (unknown) (unknown) Urine Nitrate Negati ve (Negative) (units unknown ) (unknown) (unknown) (no date) (unknown) (unknown) Urine Occult Blood (Negative) (units unknown ) (unknown) (unknown) (no date) (unknown) (unknown) Urine Occult Blood Negative (Negative) (units unknown ) (unknown) (unknown) (no date) (unknown) (unknown) Urine Protein (Negative) (units unknown ) (unknown) (unknown) (no date) (unknown) (unknown) Urine Protein Negati ve (Negative) (units unknown ) (unknown) (unknown) (no date) (unknown) (unknown) Urine RBC (0-5/HPF) (units unknown ) (unknown) (unknown) (no date) (unknown) (unknown) Urine RBC None seen (0-5/HPF) (units unknown ) (unknown) (unknown) (no date) (unknown) (unknown) Urine Urobilinogen ( 0.2) E.U./dL (units unknown ) (unknown) (unknown) (no date) (unknown) (unknown) Urine Urobilinogen 0 .2 (0.2) E.U./dL (units unknown ) (unknown) (unknown) (no date) (unknown) (unknown) Urine WBC (0-5/HPF) (units unknown ) (unknown) (unknown) (no date) (unknown) (unknown) Urine WBC None seen (0-5/HPF) (units unknown ) (unknown) (unknown) (no date) (unknown) (unknown) Urine pH (4.5-8.0) (units unknown ) (unknown) (unknown) (no date) (unknown) (unknown) Urine pH 6.0 (4.5-8.0) (units unknown ) (unknown) (unknown) (no date) (unknown) (unknown) VBG Base Excess (0-4 ) mmol/L (units unknown ) (unknown) (unknown) (no date) (unknown) (unknown) VBG Base Excess -11. 0 L (0-4) mmol/L (units unknown ) (unknown) (unknown) (no date) (unknown) (unknown) VBG HCO3 (24-28) mmol/L (units unknown ) (unknown) (unknown) (no date) (unknown) (unknown) VBG HCO3 15 L (24-28 ) mmol/L (units unknown ) (unknown) (unknown) (no date) (unknown) (unknown) VBG O2 Saturation (7 0-75) % (units unknown ) (unknown) (unknown) (no date) (unknown) (unknown) VBG O2 Saturation 46 L (70-75) % (units unknown ) (unknown) (unknown) (no date) (unknown) (unknown) VBG Total CO2 (24-29 ) mmol/L (units unknown ) (unknown) (unknown) (no date) (unknown) (unknown) VBG Total CO2 16 L ( 24-29) mmol/L (units unknown ) (unknown) (unknown) (no date) (unknown) (unknown) VBG [Venous Blood Ga s] Stat (units unknown ) (unknown) (unknown) (no date) (unknown) (unknown) VBG pCO2 (45-50) mmHg (units unknown ) (unknown) (unknown) (no date) (unknown) (unknown) VBG pCO2 26.7 L (45- 50) mmHg (units unknown ) (unknown) (unknown) (no date) (unknown) (unknown) VBG pH (7.33-7.43) (units unknown ) (unknown) (unknown) (no date) (unknown) (unknown) VBG pH 7.35 (7.33-7.43) (units unknown ) (unknown) (unknown) (no date) (unknown) (unknown) VBG pO2 (35-45) mmHg (units unknown ) (unknown) (unknown) (no date) (unknown) (unknown) VBG pO2 26 L (35-45) mmHg (units unknown ) (unknown) (unknown) (no date) (unknown) (unknown) Ventricular rate is 73 (units unknown ) (unknown) (unknown) (no date) (unknown) (unknown) Ventricular rate is 76 (units unknown ) (unknown) (unknown) (no date) (unknown) (unknown) Vital Signs - 8 hr (units unknown ) (unknown) (unknown) (no date) (unknown) (unknown) Vital Signs (units unknown ) (unknown) (unknown) (no date) (unknown) (unknown) Vital signs: (units unknown ) (unknown) (unknown) (no date) (unknown) (unknown) WBC (4.5-11.0) X103/uL (units unknown ) (unknown) (unknown) (no date) (unknown) (unknown) WBC 11.2 H (4.5-11.0 ) X103/uL (units unknown ) (unknown) (unknown) (no date) (unknown) (unknown) XR chest 1V Stat (units unknown ) (unknown) (unknown) (no date) (unknown) (unknown) [Embedded Image Not Available] (units unknown ) (unknown) (unknown) (no date) (unknown) (unknown) [From Novolog U-100 Insulin injection (units unknown ) (unknown) (unknown) (no date) (unknown) (unknown) alcohol intake frequ ency: holidays/special occasions only (units unknown ) (unknown) (unknown) (no date) (unknown) (unknown) alcohol intake: never (units unknown ) (unknown) (unknown) (no date) (unknown) (unknown) appear (units unknown ) (unknown) (unknown) (no date) (unknown) (unknown) aspart] site (units unknown ) (unknown) (unknown) (no date) (unknown) (unknown) codeine [CODEINE] Al lergy Unknown Verified 05/27/22 13:06 (units unknown ) (unknown) (unknown) (no date) (unknown) (unknown) cyclobenzaprine 5 mg tablet 5 mg PO TID PRN muscle spasm #10 10/16/17 (units unknown ) (unknown) (unknown) (no date) (unknown) (unknown) doxycycline [DOXYCYC LINE] Allergy Unknown Verified 05/27/22 13:06 (units unknown ) (unknown) (unknown) (no date) (unknown) (unknown) insulin aspart Aller gy Unknown Rash at Verified 05/27/22 13:20 (units unknown ) (unknown) (unknown) (no date) (unknown) (unknown) insulin lispro 100 u nit/mL 55 unit SLIDE ##0 08/30/10 (units unknown ) (unknown) (unknown) (no date) (unknown) (unknown) omeprazole [OMEPRAZO LE] Allergy Unknown Verified 05/27/22 13:06 (units unknown ) (unknown) (unknown) (no date) (unknown) (unknown) subcutaneous solutio n (Humalog (units unknown ) (unknown) (unknown) (no date) (unknown) (unknown) substance use type: does not use (units unknown ) (unknown) (unknown) (no date) (unknown) (unknown) tabs (units unknown ) (unknown) (unknown) (no date) (unknown) (unknown) unremarkable.? (units unknown ) (unknown) Result panel 298 (unknown) (no date) (unknown) (unknown) (no value) (units unknown ) (unknown) (unknown) (no date) (unknown) (unknown) <Electronically sign ed by Dalton Graff D.O.> (units unknown ) (unknown) (unknown) (no date) (unknown) (unknown) 05/27/22 05/27/22 Range/Units (units unknown ) (unknown) (unknown) (no date) (unknown) (unknown) 05/27/22 12:55 (units unknown ) (unknown) (unknown) (no date) (unknown) (unknown) 05/27/22 13:08 (units unknown ) (unknown) (unknown) (no date) (unknown) (unknown) 05/27/22 13:09 (units unknown ) (unknown) (unknown) (no date) (unknown) (unknown) 05/27/22 13:50 (units unknown ) (unknown) (unknown) (no date) (unknown) (unknown) 05/27/22 13:53 (units unknown ) (unknown) (unknown) (no date) (unknown) (unknown) 05/27/22 14:15 (units unknown ) (unknown) (unknown) (no date) (unknown) (unknown) 05/27/22 14:30 (units unknown ) (unknown) (unknown) (no date) (unknown) (unknown) 05/27/22 14:40 (units unknown ) (unknown) (unknown) (no date) (unknown) (unknown) 05/27/22 15:12 (units unknown ) (unknown) (unknown) (no date) (unknown) (unknown) 05/27/22 16:28 (units unknown ) (unknown) (unknown) (no date) (unknown) (unknown) 05/27/22 16:50 (units unknown ) (unknown) (unknown) (no date) (unknown) (unknown) 05/27/22 1929 (units unknown ) (unknown) (unknown) (no date) (unknown) (unknown) 05/27/22 (units unknown ) (unknown) (unknown) (no date) (unknown) (unknown) 12:55 13:50 13:50 (units unknown ) (unknown) (unknown) (no date) (unknown) (unknown) 13:06 05/27/22 (units unknown ) (unknown) (unknown) (no date) (unknown) (unknown) 13:37 05/27/22 (units unknown ) (unknown) (unknown) (no date) (unknown) (unknown) 13:37 (units unknown ) (unknown) (unknown) (no date) (unknown) (unknown) 13:40 05/27/22 (units unknown ) (unknown) (unknown) (no date) (unknown) (unknown) 13:45 05/27/22 (units unknown ) (unknown) (unknown) (no date) (unknown) (unknown) 13:45 (units unknown ) (unknown) (unknown) (no date) (unknown) (unknown) 13:50 13:50 13:50 (units unknown ) (unknown) (unknown) (no date) (unknown) (unknown) 13:55 05/27/22 (units unknown ) (unknown) (unknown) (no date) (unknown) (unknown) 13:55 (units unknown ) (unknown) (unknown) (no date) (unknown) (unknown) 14:00 05/27/22 (units unknown ) (unknown) (unknown) (no date) (unknown) (unknown) 14:05 05/27/22 (units unknown ) (unknown) (unknown) (no date) (unknown) (unknown) 14:05 (units unknown ) (unknown) (unknown) (no date) (unknown) (unknown) 14:10 05/27/22 (units unknown ) (unknown) (unknown) (no date) (unknown) (unknown) 14:10 (units unknown ) (unknown) (unknown) (no date) (unknown) (unknown) 14:15 05/27/22 (units unknown ) (unknown) (unknown) (no date) (unknown) (unknown) 14:15 14:40 14:40 (units unknown ) (unknown) (unknown) (no date) (unknown) (unknown) 14:20 05/27/22 (units unknown ) (unknown) (unknown) (no date) (unknown) (unknown) 14:20 (units unknown ) (unknown) (unknown) (no date) (unknown) (unknown) 14:28 05/27/22 (units unknown ) (unknown) (unknown) (no date) (unknown) (unknown) 14:28 (units unknown ) (unknown) (unknown) (no date) (unknown) (unknown) 14:30 05/27/22 (units unknown ) (unknown) (unknown) (no date) (unknown) (unknown) 14:41 05/27/22 (units unknown ) (unknown) (unknown) (no date) (unknown) (unknown) 14:41 (units unknown ) (unknown) (unknown) (no date) (unknown) (unknown) 14:45 05/27/22 (units unknown ) (unknown) (unknown) (no date) (unknown) (unknown) 15:00 05/27/22 (units unknown ) (unknown) (unknown) (no date) (unknown) (unknown) 15:00 (units unknown ) (unknown) (unknown) (no date) (unknown) (unknown) 15:12 16:28 16:50 (units unknown ) (unknown) (unknown) (no date) (unknown) (unknown) 15:30 05/27/22 (units unknown ) (unknown) (unknown) (no date) (unknown) (unknown) 16:00 (units unknown ) (unknown) (unknown) (no date) (unknown) (unknown) 16:30 05/27/22 (units unknown ) (unknown) (unknown) (no date) (unknown) (unknown) 17:00 05/27/22 (units unknown ) (unknown) (unknown) (no date) (unknown) (unknown) 17:30 (units unknown ) (unknown) (unknown) (no date) (unknown) (unknown) 6599 (units unknown ) (unknown) (unknown) (no date) (unknown) (unknown) ? (units unknown ) (unknown) (unknown) (no date) (unknown) (unknown) ABG Base Excess (-2- 3) mmol/L (units unknown ) (unknown) (unknown) (no date) (unknown) (unknown) ABG Base Excess -15. 0 L (-2-3) mmol/L (units unknown ) (unknown) (unknown) (no date) (unknown) (unknown) ABG HCO3 (23-27) mmol/L (units unknown ) (unknown) (unknown) (no date) (unknown) (unknown) ABG HCO3 12 L (23-27 ) mmol/L (units unknown ) (unknown) (unknown) (no date) (unknown) (unknown) ABG O2 Saturation (9 5-100) % (units unknown ) (unknown) (unknown) (no date) (unknown) (unknown) ABG O2 Saturation 97 (95-100) % (units unknown ) (unknown) (unknown) (no date) (unknown) (unknown) ABG Total CO2 (23-27 ) mmol/L (units unknown ) (unknown) (unknown) (no date) (unknown) (unknown) ABG Total CO2 12 L ( 23-27) mmol/L (units unknown ) (unknown) (unknown) (no date) (unknown) (unknown) ABG pCO2 (35-45) mmHg (units unknown ) (unknown) (unknown) (no date) (unknown) (unknown) ABG pCO2 24.9 L* (35 -45) mmHg (units unknown ) (unknown) (unknown) (no date) (unknown) (unknown) ABG pH (7.35-7.45) (units unknown ) (unknown) (unknown) (no date) (unknown) (unknown) ABG pH 7.27 L* (7.35-7.45) (unit s unknown ) (unknown) (unknown) (no date) (unknown) (unknown) ABG pO2 (80-100) mmHg (units unknown ) (unknown) (unknown) (no date) (unknown) (unknown) ABG pO2 99 (80-100) mmHg (units unknown ) (unknown) (unknown) (no date) (unknown) (unknown) ALT (<50) IU/L (units unknown ) (unknown) (unknown) (no date) (unknown) (unknown) ALT 40 (<50) IU/L (units unknown ) (unknown) (unknown) (no date) (unknown) (unknown) ALT 44 (<50) IU/L (units unknown ) (unknown) (unknown) (no date) (unknown) (unknown) AST (17-59) IU/L (units unknown ) (unknown) (unknown) (no date) (unknown) (unknown) AST 27 (17-59) IU/L (units unknown ) (unknown) (unknown) (no date) (unknown) (unknown) AST 30 (17-59) IU/L (units unknown ) (unknown) (unknown) (no date) (unknown) (unknown) Acetaminophen (Acetaminophen 325 Mg Tablet) 650 mg PO Q6H PRN (units unknown ) (unknown) (unknown) (no date) (unknown) (unknown) Admin: 05/27/22 14:0 7 Dose: 1,000 mls/hr (units unknown ) (unknown) (unknown) (no date) (unknown) (unknown) Admin: 05/27/22 15:0 0 Dose: 250 mls/hr (units unknown ) (unknown) (unknown) (no date) (unknown) (unknown) Admin: 05/27/22 15:2 6 Dose: 6 mls/hr, 6 mls/hr (units unknown ) (unknown) (unknown) (no date) (unknown) (unknown) Age/Sex: 56 / M (units unknown ) (unknown) (unknown) (no date) (unknown) (unknown) Albumin (3.5-5.0) g/dL (units unknown ) (unknown) (unknown) (no date) (unknown) (unknown) Albumin 4.1 (3.5-5.0) g/dL (unit s unknown ) (unknown) (unknown) (no date) (unknown) (unknown) Albumin 4.7 (3.5-5.0) g/dL (unit s unknown ) (unknown) (unknown) (no date) (unknown) (unknown) Albumin/Globulin Rat io (1.0-2.8) (units unknown ) (unknown) (unknown) (no date) (unknown) (unknown) Albumin/Globulin Rat io 1.5 (1.0-2.8) (units unknown ) (unknown) (unknown) (no date) (unknown) (unknown) Alkaline Phosphatase (38-126) U/L (units unknown ) (unknown) (unknown) (no date) (unknown) (unknown) Alkaline Phosphatase 104 (38-126) U/L (units unknown ) (unknown) (unknown) (no date) (unknown) (unknown) Alkaline Phosphatase 79 (38-126) U/L (units unknown ) (unknown) (unknown) (no date) (unknown) (unknown) Allergies (units unknown ) (unknown) (unknown) (no date) (unknown) (unknown) Allergy/AdvReac Type Severity Reaction Status Date / Time (units unknown ) (unknown) (unknown) (no date) (unknown) (unknown) Amorphous Sediment 1 (units unknown ) (unknown) (unknown) (no date) (unknown) (unknown) Amorphous Sediment (units unknown ) (unknown) (unknown) (no date) (unknown) (unknown) Appearance: disheveled (units unknown ) (unknown) (unknown) (no date) (unknown) (unknown) Arterial Blood Gas Stat (units unknown ) (unknown) (unknown) (no date) (unknown) (unknown) Attestation: Everett tam reviewed and interpreted this ECG as follows: (units unknown ) (unknown) (unknown) (no date) (unknown) (unknown) Attestation: (units unknown ) (unknown) (unknown) (no date) (unknown) (unknown) Auscultation: clear to auscultation bilaterally (units unknown ) (unknown) (unknown) (no date) (unknown) (unknown) BUN (9-20) mg/dL (units unknown ) (unknown) (unknown) (no date) (unknown) (unknown) BUN 23 H (9-20) mg/dL (units unknown ) (unknown) (unknown) (no date) (unknown) (unknown) BUN 24 H (9-20) mg/dL (units unknown ) (unknown) (unknown) (no date) (unknown) (unknown) BUN/Creatinine Ratio (6-22) (units unknown ) (unknown) (unknown) (no date) (unknown) (unknown) BUN/Creatinine Ratio 20.0 (6-22) (units unknown ) (unknown) (unknown) (no date) (unknown) (unknown) BUN/Creatinine Ratio 21.4 (6-22) (units unknown ) (unknown) (unknown) (no date) (unknown) (unknown) Baso # (Auto) (0-100) /uL (units unknown ) (unknown) (unknown) (no date) (unknown) (unknown) Baso # (Auto) 100 (0 -100) /uL (units unknown ) (unknown) (unknown) (no date) (unknown) (unknown) Baso % (Auto) (0-2) % (units unknown ) (unknown) (unknown) (no date) (unknown) (unknown) Baso % (Auto) 0.5 (0-2) % (units unknown ) (unknown) (unknown) (no date) (unknown) (unknown) Blood Culture Stat (units unknown ) (unknown) (unknown) (no date) (unknown) (unknown) Blood Pressure 121/58 L (units unknown ) (unknown) (unknown) (no date) (unknown) (unknown) Blood Pressure 123/62 (units unknown ) (unknown) (unknown) (no date) (unknown) (unknown) Blood Pressure 128/58 L (units unknown ) (unknown) (unknown) (no date) (unknown) (unknown) Blood Pressure 133/6 1 152/61 H (units unknown ) (unknown) (unknown) (no date) (unknown) (unknown) Blood Pressure 139/6 3 141/97 H (units unknown ) (unknown) (unknown) (no date) (unknown) (unknown) Blood Pressure 140/6 1 108/53 L (units unknown ) (unknown) (unknown) (no date) (unknown) (unknown) Blood Pressure 142/87 H (units unknown ) (unknown) (unknown) (no date) (unknown) (unknown) Blood Pressure 144/5 8 H 148/67 H (units unknown ) (unknown) (unknown) (no date) (unknown) (unknown) Blood Pressure 148/6 9 H 05/27/22 13:06 (units unknown ) (unknown) (unknown) (no date) (unknown) (unknown) Blood Pressure 148/6 9 H 129/63 (units unknown ) (unknown) (unknown) (no date) (unknown) (unknown) Blood Pressure (units unknown ) (unknown) (unknown) (no date) (unknown) (unknown) Bones and chest wall :? No suspicious bony lesions.? Overlying soft tissues (units unknown ) (unknown) (unknown) (no date) (unknown) (unknown) CK-MB (CK-2) Rel Index TNP (unit s unknown ) (unknown) (unknown) (no date) (unknown) (unknown) CK-MB (CK-2) Rel Index (units unknown ) (unknown) (unknown) (no date) (unknown) (unknown) CK-MB (CK-2) TNP (units unknown ) (unknown) (unknown) (no date) (unknown) (unknown) CK-MB (CK-2) (units unknown ) (unknown) (unknown) (no date) (unknown) (unknown) CMP [Comprehensive Metabolic Panel] Stat (units unknown ) (unknown) (unknown) (no date) (unknown) (unknown) COMPARISON:[facility], CR, CHEST 1 VIEW, 06/20/2016, 20:50. (units unknown ) (unknown) (unknown) (no date) (unknown) (unknown) COVID19 -Nasal RAPID Stat (units unknown ) (unknown) (unknown) (no date) (unknown) (unknown) Calcium (8.4-10.2) mg/dL (units unknown ) (unknown) (unknown) (no date) (unknown) (unknown) Calcium 8.8 (8.4-10. 2) mg/dL (units unknown ) (unknown) (unknown) (no date) (unknown) (unknown) Calcium 9.7 (8.4-10. 2) mg/dL (units unknown ) (unknown) (unknown) (no date) (unknown) (unknown) Carbon Dioxide (22-3 2) mmol/L (units unknown ) (unknown) (unknown) (no date) (unknown) (unknown) Carbon Dioxide 12 L (22-32) mmol/L (units unknown ) (unknown) (unknown) (no date) (unknown) (unknown) Carbon Dioxide 8 L* (22-32) mmol/L (units unknown ) (unknown) (unknown) (no date) (unknown) (unknown) Cardio (units unknown ) (unknown) (unknown) (no date) (unknown) (unknown) Ceftriaxone Sodium 1 ,000 mg/ (Sodium Chloride) 100 mls @ 200 mls/hr IV Q24H SRIDEVI (units unknown ) (unknown) (unknown) (no date) (unknown) (unknown) Chest x-ray: (units unknown ) (unknown) (unknown) (no date) (unknown) (unknown) Chief complaint: Clair betic Problem (units unknown ) (unknown) (unknown) (no date) (unknown) (unknown) Chloride (98-107) mmol/L (units unknown ) (unknown) (unknown) (no date) (unknown) (unknown) Chloride 103 (98-107 ) mmol/L (units unknown ) (unknown) (unknown) (no date) (unknown) (unknown) Chloride 94 L (98-10 7) mmol/L (units unknown ) (unknown) (unknown) (no date) (unknown) (unknown) Clinical Impression: (units unknown ) (unknown) (unknown) (no date) (unknown) (unknown) Complete Blood Count AUTO DIFF Stat (units unknown ) (unknown) (unknown) (no date) (unknown) (unknown) Comprehensive Metabo lic Panel Stat (units unknown ) (unknown) (unknown) (no date) (unknown) (unknown) Const (units unknown ) (unknown) (unknown) (no date) (unknown) (unknown) [place] [facility] [place] [facility] Stat (units unknown ) (unknown) (unknown) (no date) (unknown) (unknown) Course (units unknown ) (unknown) (unknown) (no date) (unknown) (unknown) Creatinine (0.66-1.2 5) mg/dL (units unknown ) (unknown) (unknown) (no date) (unknown) (unknown) Creatinine 1.12 (0.66-1.25) mg/dL (units unknown ) (unknown) (unknown) (no date) (unknown) (unknown) Creatinine 1.15 (0.66-1.25) mg/dL (units unknown ) (unknown) (unknown) (no date) (unknown) (unknown) Critical Care Time (units unknown ) (unknown) (unknown) (no date) (unknown) (unknown) Critical Care Time: Yes (units unknown ) (unknown) (unknown) (no date) (unknown) (unknown) : 1965 Acct:[id number] (units unknown ) (unknown) (unknown) (no date) (unknown) (unknown) Date of Service: 05/27/22 (units unknown ) (unknown) (unknown) (no date) (unknown) (unknown) Departure (units unknown ) (unknown) (unknown) (no date) (unknown) (unknown) Discharge Plan (units unknown ) (unknown) (unknown) (no date) (unknown) (unknown) Discontinued Medications (units unknown ) (unknown) (unknown) (no date) (unknown) (unknown) Documented By: OWEN Co-signed By: CTS (units unknown ) (unknown) (unknown) (no date) (unknown) (unknown) Documented By: OWEN Co-signed By: KLS (units unknown ) (unknown) (unknown) (no date) (unknown) (unknown) Documented By: OWEN (units unknown ) (unknown) (unknown) (no date) (unknown) (unknown) ECG Data (units unknown ) (unknown) (unknown) (no date) (unknown) (unknown) ED Orders (units unknown ) (unknown) (unknown) (no date) (unknown) (unknown) EKG-12 Lead Stat (units unknown ) (unknown) (unknown) (no date) (unknown) (unknown) ER Physician: Dalton Graff D.O. (units unknown ) (unknown) (unknown) (no date) (unknown) (unknown) ETOH [Ethanol (ETOH)] Stat (unit s unknown ) (unknown) (unknown) (no date) (unknown) (unknown) Effort + Inspection: normal respiratory effort and tachypneic (units unknown ) (unknown) (unknown) (no date) (unknown) (unknown) Emergency Report (units unknown ) (unknown) (unknown) (no date) (unknown) (unknown) Eos # (Auto) (0-450) /uL (units unknown ) (unknown) (unknown) (no date) (unknown) (unknown) Eos # (Auto) 0 (0-450) /uL (unit s unknown ) (unknown) (unknown) (no date) (unknown) (unknown) Eos % (Auto) (2-4) % (units unknown ) (unknown) (unknown) (no date) (unknown) (unknown) Eos % (Auto) 0.1 L (2-4) % (unit s unknown ) (unknown) (unknown) (no date) (unknown) (unknown) Estimated GFR > 60 ( >60) mL/min (units unknown ) (unknown) (unknown) (no date) (unknown) (unknown) Estimated GFR (>60) mL/min (unit s unknown ) (unknown) (unknown) (no date) (unknown) (unknown) Ethyl Alcohol < 10 ( - 10) mg/dL (units unknown ) (unknown) (unknown) (no date) (unknown) (unknown) Ethyl Alcohol ( - 10 ) mg/dL (units unknown ) (unknown) (unknown) (no date) (unknown) (unknown) Exam (units unknown ) (unknown) (unknown) (no date) (unknown) (unknown) Extrem (units unknown ) (unknown) (unknown) (no date) (unknown) (unknown) FINDINGS:? (units unknown ) (unknown) (unknown) (no date) (unknown) (unknown) FiO2 21 (units unknown ) (unknown) (unknown) (no date) (unknown) (unknown) FiO2 (units unknown ) (unknown) (unknown) (no date) (unknown) (unknown) GCS (units unknown ) (unknown) (unknown) (no date) (unknown) (unknown) GI (units unknown ) (unknown) (unknown) (no date) (unknown) (unknown) General (units unknown ) (unknown) (unknown) (no date) (unknown) (unknown) General: capillary r efill normal and No edema (units unknown ) (unknown) (unknown) (no date) (unknown) (unknown) General: diaphoretic and ill appearing (units unknown ) (unknown) (unknown) (no date) (unknown) (unknown) General: no rashes o r lesions noted (units unknown ) (unknown) (unknown) (no date) (unknown) (unknown) General: patient xuan rt, patient awake and moves all extremities (units unknown ) (unknown) (unknown) (no date) (unknown) (unknown) Mario coma scale e ye opening: Spontaneous (units unknown ) (unknown) (unknown) (no date) (unknown) (unknown) [place] coma scale m otor response: Obey commands (units unknown ) (unknown) (unknown) (no date) (unknown) (unknown) [place] coma scale t otal score: 14 (units unknown ) (unknown) (unknown) (no date) (unknown) (unknown) [place] coma scale v erbal response: Confused (units unknown ) (unknown) (unknown) (no date) (unknown) (unknown) Globulin (1.7-4.1) g/dL (units unknown ) (unknown) (unknown) (no date) (unknown) (unknown) Globulin 2.8 (1.7-4. 1) g/dL (units unknown ) (unknown) (unknown) (no date) (unknown) (unknown) Globulin 3.1 (1.7-4. 1) g/dL (units unknown ) (unknown) (unknown) (no date) (unknown) (unknown) Glucose (70-100) mg/dL (units unknown ) (unknown) (unknown) (no date) (unknown) (unknown) Glucose 532 H* (70-1 00) mg/dL (units unknown ) (unknown) (unknown) (no date) (unknown) (unknown) Glucose 731 H* (70-1 00) mg/dL (units unknown ) (unknown) (unknown) (no date) (unknown) (unknown) Glucose POC 367 (units unknown ) (unknown) (unknown) (no date) (unknown) (unknown) HENMT (units unknown ) (unknown) (unknown) (no date) (unknown) (unknown) HPI - General Adult (units unknown ) (unknown) (unknown) (no date) (unknown) (unknown) HPI narrative: (units unknown ) (unknown) (unknown) (no date) (unknown) (unknown) Hct (41-53) % (units unknown ) (unknown) (unknown) (no date) (unknown) (unknown) Hct 44.7 (41-53) % (units unknown ) (unknown) (unknown) (no date) (unknown) (unknown) Head: normal to insp ection and normocephalic (units unknown ) (unknown) (unknown) (no date) (unknown) (unknown) Heart failure, Hypox ia, Back pain (units unknown ) (unknown) (unknown) (no date) (unknown) (unknown) Hemoglobin A1c (4.0-6.0) % (unit s unknown ) (unknown) (unknown) (no date) (unknown) (unknown) Hemoglobin A1c 9.5 H (4.0-6.0) % (units unknown ) (unknown) (unknown) (no date) (unknown) (unknown) Hgb (13.5-17.5) g/dL (units unknown ) (unknown) (unknown) (no date) (unknown) (unknown) Hgb 14.9 (13.5-17.5) g/dL (units unknown ) (unknown) (unknown) (no date) (unknown) (unknown) History of Present Illness (unit s unknown ) (unknown) (unknown) (no date) (unknown) (unknown) Home Medications (units unknown ) (unknown) (unknown) (no date) (unknown) (unknown) IMPRESSION:? No acut e cardiopulmonary disease. (units unknown ) (unknown) (unknown) (no date) (unknown) (unknown) INDICATIONS:? chest pain (units unknown ) (unknown) (unknown) (no date) (unknown) (unknown) INSULIN DRIP PREMIX (Myxredlin Drip Premix) 100 unit in 100 mls @ 6 mls/hr IV (units unknown ) (unknown) (unknown) (no date) (unknown) (unknown) Ibuprofen (Ibuprofen 600 Mg Tablet) 800 mg PO Q6H PRN (units unknown ) (unknown) (unknown) (no date) (unknown) (unknown) Imaging Data (units unknown ) (unknown) (unknown) (no date) (unknown) (unknown) Initial EKG (units unknown ) (unknown) (unknown) (no date) (unknown) (unknown) Initial Vital Signs (units unknown ) (unknown) (unknown) (no date) (unknown) (unknown) Initial Vital Signs: (units unknown ) (unknown) (unknown) (no date) (unknown) (unknown) Inspection: normal t o inspection and non-distended (units unknown ) (unknown) (unknown) (no date) (unknown) (unknown) Insulin dependent di abetes mellitus (units unknown ) (unknown) (unknown) (no date) (unknown) (unknown) Interpretation: (units unknown ) (unknown) (unknown) (no date) (unknown) (unknown) [address] [address] (units unknown ) (unknown) (unknown) (no date) (unknown) (unknown) Ketones (<0.27) mmol/L (units unknown ) (unknown) (unknown) (no date) (unknown) (unknown) Ketones (Beta-Hydroxybutyrate) Stat (units unknown ) (unknown) (unknown) (no date) (unknown) (unknown) Ketones 6.46 H (<0.2 7) mmol/L (units unknown ) (unknown) (unknown) (no date) (unknown) (unknown) Lab Data (units unknown ) (unknown) (unknown) (no date) (unknown) (unknown) Lab Results (units unknown ) (unknown) (unknown) (no date) (unknown) (unknown) Lab results reviewed : Yes I reviewed the patient's lab results. (units unknown ) (unknown) (unknown) (no date) (unknown) (unknown) Labs: (units unknown ) (unknown) (unknown) (no date) (unknown) (unknown) Last Admin: 05/27/22 14:06 Dose: 4 mg (units unknown ) (unknown) (unknown) (no date) (unknown) (unknown) Last Admin: 05/27/22 15:00 Dose: 10 mg (units unknown ) (unknown) (unknown) (no date) (unknown) (unknown) Last Infusion: 05/27 15:04 Dose: 0 mls/hr (units unknown ) (unknown) (unknown) (no date) (unknown) (unknown) Last Infusion: 05/27 18:49 Dose: 0 mls/hr (units unknown ) (unknown) (unknown) (no date) (unknown) (unknown) Last Titration: 05/15 06/06 15:44 Dose: 12 mls/hr, 12 mls/hr (units unknown ) (unknown) (unknown) (no date) (unknown) (unknown) Lipase (23-300) U/L (units unknown ) (unknown) (unknown) (no date) (unknown) (unknown) Lipase 62 (23-300) U/L (units unknown ) (unknown) (unknown) (no date) (unknown) (unknown) Lipase Stat (units unknown ) (unknown) (unknown) (no date) (unknown) (unknown) Low suspicion for CV A. His troponins are negative x2. Patient does not have (units unknown ) (unknown) (unknown) (no date) (unknown) (unknown) Lungs and pleura:? L ungs are clear.? No pleural effusions or pneumothorax.? (units unknown ) (unknown) (unknown) (no date) (unknown) (unknown) Lymph # (Auto) (1100 -4500) /uL (units unknown ) (unknown) (unknown) (no date) (unknown) (unknown) Lymph # (Auto) 700 L (6777-0954) /uL (units unknown ) (unknown) (unknown) (no date) (unknown) (unknown) Lymph % (Auto) (25-40) % (units unknown ) (unknown) (unknown) (no date) (unknown) (unknown) Lymph % (Auto) 6.4 L (25-40) % (units unknown ) (unknown) (unknown) (no date) (unknown) (unknown) MCH (26-34) PG (units unknown ) (unknown) (unknown) (no date) (unknown) (unknown) MCH 29.7 (26-34) PG (units unknown ) (unknown) (unknown) (no date) (unknown) (unknown) MCHC (30-36) % (units unknown ) (unknown) (unknown) (no date) (unknown) (unknown) MCHC 33.3 (30-36) % (units unknown ) (unknown) (unknown) (no date) (unknown) (unknown) MCV (80-100) fL (units unknown ) (unknown) (unknown) (no date) (unknown) (unknown) MCV 89.1 (80-100) fL (units unknown ) (unknown) (unknown) (no date) (unknown) (unknown) MDM Narrative (units unknown ) (unknown) (unknown) (no date) (unknown) (unknown) Magnesium (1.6-2.3) mg/dL (units unknown ) (unknown) (unknown) (no date) (unknown) (unknown) Magnesium 1.8 (1.6-2 .3) mg/dL (units unknown ) (unknown) (unknown) (no date) (unknown) (unknown) Magnesium Stat (units unknown ) (unknown) (unknown) (no date) (unknown) (unknown) Mediastinum:? Medias tinal contours appear normal.? Heart size is normal.? (units unknown ) (unknown) (unknown) (no date) (unknown) (unknown) Medical Decision Making (units unknown ) (unknown) (unknown) (no date) (unknown) (unknown) Medical History (Rev iewed 05/27/22 @ 19:26 by Dalton Graff DO) (units unknown ) (unknown) (unknown) (no date) (unknown) (unknown) Medical Records (units unknown ) (unknown) (unknown) (no date) (unknown) (unknown) Medical decision kory ing narrative: (units unknown ) (unknown) (unknown) (no date) (unknown) (unknown) Medical records revi ewed: Yes I reviewed the patient's medical records. (units unknown ) (unknown) (unknown) (no date) (unknown) (unknown) Medication Instructi ons Recorded Confirmed (units unknown ) (unknown) (unknown) (no date) (unknown) (unknown) Medication Instructi ons Recorded (units unknown ) (unknown) (unknown) (no date) (unknown) (unknown) Melatonin (Melatonin 3 Mg Tablet) 6 mg PO BEDTIME PRN (units unknown ) (unknown) (unknown) (no date) (unknown) (unknown) Metoclopramide HCl (Metoclopramide 10 Mg/2 Ml Inj) 10 mg IV NOW ONE (units unknown ) (unknown) (unknown) (no date) (unknown) (unknown) Metronidazole (Metronidazole 500 Mg Tablet) 500 mg PO TID SRIDEVI (units unknown ) (unknown) (unknown) (no date) (unknown) (unknown) Mode of arrival: EMS (units unknown ) (unknown) (unknown) (no date) (unknown) (unknown) [place] # (Auto) (0-900) /uL (units unknown ) (unknown) (unknown) (no date) (unknown) (unknown) [place] # (Auto) 300 (0 -900) /uL (units unknown ) (unknown) (unknown) (no date) (unknown) (unknown) [place] % (Auto) (3-14) % (units unknown ) (unknown) (unknown) (no date) (unknown) (unknown) [place] % (Auto) 2.7 L (3-14) % (units unknown ) (unknown) (unknown) (no date) (unknown) (unknown) Naloxone HCl (Naloxo ne 0.4 Mg/Ml Vial) 0.2 mg IV Q2MIN PRN (units unknown ) (unknown) (unknown) (no date) (unknown) (unknown) Neuro (units unknown ) (unknown) (unknown) (no date) (unknown) (unknown) Neut # (Auto) (1500- 7000) /uL (units unknown ) (unknown) (unknown) (no date) (unknown) (unknown) Neut # (Auto) 19425 H (5066-0911) /uL (units unknown ) (unknown) (unknown) (no date) (unknown) (unknown) Neut % (Auto) (50-75) % (units unknown ) (unknown) (unknown) (no date) (unknown) (unknown) Neut % (Auto) 90.3 H (50-75) % (units unknown ) (unknown) (unknown) (no date) (unknown) (unknown) No ST T wave changes (units unknown ) (unknown) (unknown) (no date) (unknown) (unknown) Normal QRS (units unknown ) (unknown) (unknown) (no date) (unknown) (unknown) Normal axis (units unknown ) (unknown) (unknown) (no date) (unknown) (unknown) Ondansetron HCl (Ondansetron 4 Mg Odt) 4 mg SL NOW PRN (units unknown ) (unknown) (unknown) (no date) (unknown) (unknown) Ondansetron HCl (Ondansetron 4 Mg/2 Ml Inj) 4 mg IV NOW PRN (units unknown ) (unknown) (unknown) (no date) (unknown) (unknown) Ordered: (units unknown ) (unknown) (unknown) (no date) (unknown) (unknown) Orders (units unknown ) (unknown) (unknown) (no date) (unknown) (unknown) Oxygen Delivery Meth od Room Air 05/27/22 13:06 (units unknown ) (unknown) (unknown) (no date) (unknown) (unknown) Oxygen Delivery Meth od Room Air (units unknown ) (unknown) (unknown) (no date) (unknown) (unknown) Oxygen Delivery Method (units unknown ) (unknown) (unknown) (no date) (unknown) (unknown) PRN Reason: Constipation (units unknown ) (unknown) (unknown) (no date) (unknown) (unknown) PRN Reason: Fever/Mi ld Pain (1-3) (units unknown ) (unknown) (unknown) (no date) (unknown) (unknown) PRN Reason: Insomnia (units unknown ) (unknown) (unknown) (no date) (unknown) (unknown) PRN Reason: Nausea A nd Vomiting (units unknown ) (unknown) (unknown) (no date) (unknown) (unknown) PRN Reason: Opiate Reversal (units unknown ) (unknown) (unknown) (no date) (unknown) (unknown) PRN (units unknown ) (unknown) (unknown) (no date) (unknown) (unknown) PROCEDURE:? XR CHEST 1V (units unknown ) (unknown) (unknown) (no date) (unknown) (unknown) Patient Disposition: Home (units unknown ) (unknown) (unknown) (no date) (unknown) (unknown) Patient History (units unknown ) (unknown) (unknown) (no date) (unknown) (unknown) Patient is a 56-year -old male. History of insulin-dependent diabetes. Does (units unknown ) (unknown) (unknown) (no date) (unknown) (unknown) Patient is in DKA wi th an anion gap of 26. Hyperglycemic. His vomiting. No (units unknown ) (unknown) (unknown) (no date) (unknown) (unknown) Patient: Avinash Meredith MR#: [id number] (units unknown ) (unknown) (unknown) (no date) (unknown) (unknown) Phosphorous Stat (units unknown ) (unknown) (unknown) (no date) (unknown) (unknown) Phosphorus (2.5-4.5) mg/dL (unit s unknown ) (unknown) (unknown) (no date) (unknown) (unknown) Phosphorus 3.6 (2.5- 4.5) mg/dL (units unknown ) (unknown) (unknown) (no date) (unknown) (unknown) Plt Count (150-400) X103/uL (units unknown ) (unknown) (unknown) (no date) (unknown) (unknown) Plt Count 243 (150-4 00) X103/uL (units unknown ) (unknown) (unknown) (no date) (unknown) (unknown) Point of Care Testing (units unknown ) (unknown) (unknown) (no date) (unknown) (unknown) Point of care testing: (units unknown ) (unknown) (unknown) (no date) (unknown) (unknown) Polyethylene Glycol (Polyethylene Glycol 3350 17 Gm Powd.Pack) 17 gm PO DAILY (units unknown ) (unknown) (unknown) (no date) (unknown) (unknown) Potassium (3.4-5.1) mmol/L (unit s unknown ) (unknown) (unknown) (no date) (unknown) (unknown) Potassium 4.4 (3.4-5 .1) mmol/L (units unknown ) (unknown) (unknown) (no date) (unknown) (unknown) Potassium 5.0 (3.4-5 .1) mmol/L (units unknown ) (unknown) (unknown) (no date) (unknown) (unknown) Previous Rx's (units unknown ) (unknown) (unknown) (no date) (unknown) (unknown) Psych (units unknown ) (unknown) (unknown) (no date) (unknown) (unknown) Pulse Oximetry 100 05/27/22 13:06 (units unknown ) (unknown) (unknown) (no date) (unknown) (unknown) Pulse Oximetry 100 100 99 (units unknown ) (unknown) (unknown) (no date) (unknown) (unknown) Pulse Oximetry 100 100 (units unknown ) (unknown) (unknown) (no date) (unknown) (unknown) Pulse Oximetry 100 (units unknown ) (unknown) (unknown) (no date) (unknown) (unknown) Pulse Oximetry 97 98 (units unknown ) (unknown) (unknown) (no date) (unknown) (unknown) Pulse Oximetry 98 100 (units unknown ) (unknown) (unknown) (no date) (unknown) (unknown) Pulse Oximetry 99 100 (units unknown ) (unknown) (unknown) (no date) (unknown) (unknown) Pulse Rate 73 77 (units unknown ) (unknown) (unknown) (no date) (unknown) (unknown) Pulse Rate 74 76 (units unknown ) (unknown) (unknown) (no date) (unknown) (unknown) Pulse Rate 75 (units unknown ) (unknown) (unknown) (no date) (unknown) (unknown) Pulse Rate 76 77 (units unknown ) (unknown) (unknown) (no date) (unknown) (unknown) Pulse Rate 78 13:06 (units unknown ) (unknown) (unknown) (no date) (unknown) (unknown) Pulse Rate 78 76 (units unknown ) (unknown) (unknown) (no date) (unknown) (unknown) Pulse Rate 78 (units unknown ) (unknown) (unknown) (no date) (unknown) (unknown) Pulse Rate 79 (units unknown ) (unknown) (unknown) (no date) (unknown) (unknown) Pulse Rate 81 74 (units unknown ) (unknown) (unknown) (no date) (unknown) (unknown) Pulse Rate 83 76 72 (units unknown ) (unknown) (unknown) (no date) (unknown) (unknown) Pulse Rate 92 H 80 77 (units unknown ) (unknown) (unknown) (no date) (unknown) (unknown) QTC 486 (units unknown ) (unknown) (unknown) (no date) (unknown) (unknown) QTC 5 a 1 (units unknown ) (unknown) (unknown) (no date) (unknown) (unknown) RBC (4.5-5.9) X106/uL (units unknown ) (unknown) (unknown) (no date) (unknown) (unknown) RBC 5.02 (4.5-5.9) X106/uL (unit s unknown ) (unknown) (unknown) (no date) (unknown) (unknown) RDW (11.6-14.8) % (units unknown ) (unknown) (unknown) (no date) (unknown) (unknown) RDW 13.3 (11.6-14.8) % (units unknown ) (unknown) (unknown) (no date) (unknown) (unknown) ROS Unobtainable: Al l systems reviewed + are unremarkable except as noted in HPI (units unknown ) (unknown) (unknown) (no date) (unknown) (unknown) Radiologist's Impression: (units unknown ) (unknown) (unknown) (no date) (unknown) (unknown) Rate: tachycardic (units unknown ) (unknown) (unknown) (no date) (unknown) (unknown) Related Data (units unknown ) (unknown) (unknown) (no date) (unknown) (unknown) Relatively unchanged from initial EKG (units unknown ) (unknown) (unknown) (no date) (unknown) (unknown) Repeat EKG (units unknown ) (unknown) (unknown) (no date) (unknown) (unknown) Resp (units unknown ) (unknown) (unknown) (no date) (unknown) (unknown) Respiratory Rate 18 19 18 (units unknown ) (unknown) (unknown) (no date) (unknown) (unknown) Respiratory Rate 20 (units unknown ) (unknown) (unknown) (no date) (unknown) (unknown) Respiratory Rate 22 05/27/22 13:06 (units unknown ) (unknown) (unknown) (no date) (unknown) (unknown) Respiratory Rate 22 15 (units unknown ) (unknown) (unknown) (no date) (unknown) (unknown) Respiratory Rate 27 H 28 H (unit s unknown ) (unknown) (unknown) (no date) (unknown) (unknown) Respiratory Rate 28 H 38 H (unit s unknown ) (unknown) (unknown) (no date) (unknown) (unknown) Respiratory Rate 28 H (units unknown ) (unknown) (unknown) (no date) (unknown) (unknown) Respiratory Rate 29 H (units unknown ) (unknown) (unknown) (no date) (unknown) (unknown) Respiratory Rate 33 H (units unknown ) (unknown) (unknown) (no date) (unknown) (unknown) Respiratory Rate 41 H 19 (units unknown ) (unknown) (unknown) (no date) (unknown) (unknown) Respiratory Rate 41 H 28 H 27 H (units unknown ) (unknown) (unknown) (no date) (unknown) (unknown) Respiratory Rate 44 H 27 H (unit s unknown ) (unknown) (unknown) (no date) (unknown) (unknown) Review of Systems (units unknown ) (unknown) (unknown) (no date) (unknown) (unknown) Rhythm: regular rhythm (units unknown ) (unknown) (unknown) (no date) (unknown) (unknown) SARS-CoV-2 (PCR) (Negative) (units unknown ) (unknown) (unknown) (no date) (unknown) (unknown) SARS-CoV-2 (PCR) Neg ative (Negative) (units unknown ) (unknown) (unknown) (no date) (unknown) (unknown) Scores (units unknown ) (unknown) (unknown) (no date) (unknown) (unknown) Sennosides (Sennosid es 8.6 Mg Tablet) 8.6 mg PO BID PRN (units unknown ) (unknown) (unknown) (no date) (unknown) (unknown) Signed By: (units unknown ) (unknown) (unknown) (no date) (unknown) (unknown) Sinus rhythm (units unknown ) (unknown) (unknown) (no date) (unknown) (unknown) Skin (units unknown ) (unknown) (unknown) (no date) (unknown) (unknown) Smoking Status: Form er smoker (units unknown ) (unknown) (unknown) (no date) (unknown) (unknown) Social History (Revi ewed 05/27/22 @ 19:26 by Dalton Graff DO) (units unknown ) (unknown) (unknown) (no date) (unknown) (unknown) Sodium (137-145) mmol/L (units unknown ) (unknown) (unknown) (no date) (unknown) (unknown) Sodium 132 L (137-14 5) mmol/L (units unknown ) (unknown) (unknown) (no date) (unknown) (unknown) Sodium 136 L (137-14 5) mmol/L (units unknown ) (unknown) (unknown) (no date) (unknown) (unknown) Sodium Chloride (Nor mal Saline 0.9%) 1,000 mls @ 1,000 mls/hr IV BOLUS ONE (units unknown ) (unknown) (unknown) (no date) (unknown) (unknown) Sodium Chloride (Nor mal Saline 0.9%) 1,000 mls @ 250 mls/hr IV CONT SRIDEVI (units unknown ) (unknown) (unknown) (no date) (unknown) (unknown) Source: patient and EMS (units unknown ) (unknown) (unknown) (no date) (unknown) (unknown) Stated complaint: ch est pain/ n+v/ high glucose (units unknown ) (unknown) (unknown) (no date) (unknown) (unknown) Stop: 05/27/22 14:48 (units unknown ) (unknown) (unknown) (no date) (unknown) (unknown) Stop: 05/27/22 14:53 (units unknown ) (unknown) (unknown) (no date) (unknown) (unknown) Stop: 05/30/22 17:59 (units unknown ) (unknown) (unknown) (no date) (unknown) (unknown) Substance Use Type: marijuana (units unknown ) (unknown) (unknown) (no date) (unknown) (unknown) Surgical changes and devices:? None.? (units unknown ) (unknown) (unknown) (no date) (unknown) (unknown) TECHNIQUE:? One view of the chest was acquired.? (units unknown ) (unknown) (unknown) (no date) (unknown) (unknown) TITRATE SRIDEVI; Protocol (units unknown ) (unknown) (unknown) (no date) (unknown) (unknown) TSH (0.47-4.68) uIU/mL (units unknown ) (unknown) (unknown) (no date) (unknown) (unknown) TSH 2.80 (0.47-4.68) uIU/mL (units unknown ) (unknown) (unknown) (no date) (unknown) (unknown) Temperature 97.5 F L 05/27/22 13:06 (units unknown ) (unknown) (unknown) (no date) (unknown) (unknown) Temperature 97.5 F L (units unknown ) (unknown) (unknown) (no date) (unknown) (unknown) Temperature (units unknown ) (unknown) (unknown) (no date) (unknown) (unknown) The high probability of a clinically significant, sudden or life threatening (units unknown ) (unknown) (unknown) (no date) (unknown) (unknown) Time Seen by Provide r: 05/27/22 13:38 (units unknown ) (unknown) (unknown) (no date) (unknown) (unknown) Total Bilirubin (0.2 -1.3) mg/dL (units unknown ) (unknown) (unknown) (no date) (unknown) (unknown) Total Bilirubin 2.2 H (0.2-1.3) mg/dL (units unknown ) (unknown) (unknown) (no date) (unknown) (unknown) Total Bilirubin 2.7 H (0.2-1.3) mg/dL (units unknown ) (unknown) (unknown) (no date) (unknown) (unknown) Total Creatine Kinas e (55-170) U/L (units unknown ) (unknown) (unknown) (no date) (unknown) (unknown) Total Creatine Kinas e 57 (55-170) U/L (units unknown ) (unknown) (unknown) (no date) (unknown) (unknown) Total Critical Care Time: 40 (units unknown ) (unknown) (unknown) (no date) (unknown) (unknown) Total Protein (6.3-8 .2) g/dL (units unknown ) (unknown) (unknown) (no date) (unknown) (unknown) Total Protein 6.9 (6.3-8.2) g/dL (units unknown ) (unknown) (unknown) (no date) (unknown) (unknown) Total Protein 7.8 (6.3-8.2) g/dL (units unknown ) (unknown) (unknown) (no date) (unknown) (unknown) Troponin + CK Cardia c Panel Stat (units unknown ) (unknown) (unknown) (no date) (unknown) (unknown) Troponin I < 0.012 (0.01-0.034) ng/mL (units unknown ) (unknown) (unknown) (no date) (unknown) (unknown) Troponin I (0.01-0.0 34) ng/mL (units unknown ) (unknown) (unknown) (no date) (unknown) (unknown) Troponin I Stat (units unknown ) (unknown) (unknown) (no date) (unknown) (unknown) U Benzodiazepines Sc rn (Negative) (units unknown ) (unknown) (unknown) (no date) (unknown) (unknown) U Benzodiazepines Sc rn Negative (Negative) (units unknown ) (unknown) (unknown) (no date) (unknown) (unknown) U Marijuana (THC) Sc reen (Negative) (units unknown ) (unknown) (unknown) (no date) (unknown) (unknown) U Marijuana (THC) Sc reen Positive H (Negative) (units unknown ) (unknown) (unknown) (no date) (unknown) (unknown) U Methamphetamines S crn (Negative) (units unknown ) (unknown) (unknown) (no date) (unknown) (unknown) U Methamphetamines S crn Negative (Negative) (units unknown ) (unknown) (unknown) (no date) (unknown) (unknown) U Opiates 300ng/mL c ut (Negative) (units unknown ) (unknown) (unknown) (no date) (unknown) (unknown) U Opiates 300ng/mL c ut Negative (Negative) (units unknown ) (unknown) (unknown) (no date) (unknown) (unknown) U Tricyclic Antidepr ess (Negative) (units unknown ) (unknown) (unknown) (no date) (unknown) (unknown) U Tricyclic Antidepr ess Negative (Negative) (units unknown ) (unknown) (unknown) (no date) (unknown) (unknown) U-100 Insulin) (units unknown ) (unknown) (unknown) (no date) (unknown) (unknown) Ur Amphetamines Scre en (Negative) (units unknown ) (unknown) (unknown) (no date) (unknown) (unknown) Ur Amphetamines Scre en Negative (Negative) (units unknown ) (unknown) (unknown) (no date) (unknown) (unknown) Ur Barbiturates Scre en (Negative) (units unknown ) (unknown) (unknown) (no date) (unknown) (unknown) Ur Barbiturates Scre en Negative (Negative) (units unknown ) (unknown) (unknown) (no date) (unknown) (unknown) Ur Culture Indicated ? Cult not indicated (units unknown ) (unknown) (unknown) (no date) (unknown) (unknown) Ur Culture Indicated? (units unknown ) (unknown) (unknown) (no date) (unknown) (unknown) Ur Leukocyte [place] e (NEGATIVE) (units unknown ) (unknown) (unknown) (no date) (unknown) (unknown) Ur Leukocyte [place] e Negative (NEGATIVE) (units unknown ) (unknown) (unknown) (no date) (unknown) (unknown) Ur MDMA Scrn ([place] y) (Negative) (units unknown ) (unknown) (unknown) (no date) (unknown) (unknown) Ur MDMA Scrn ([place] y) Negative (Negative) (units unknown ) (unknown) (unknown) (no date) (unknown) (unknown) Ur Oxycodone Screen (Negative) (units unknown ) (unknown) (unknown) (no date) (unknown) (unknown) Ur Oxycodone Screen Negative (Negative) (units unknown ) (unknown) (unknown) (no date) (unknown) (unknown) Ur Phencyclidine Scr n (Negative) (units unknown ) (unknown) (unknown) (no date) (unknown) (unknown) Ur Phencyclidine Scr n Negative (Negative) (units unknown ) (unknown) (unknown) (no date) (unknown) (unknown) Ur Specific [place] (1.000-1.035) (units unknown ) (unknown) (unknown) (no date) (unknown) (unknown) Ur Specific [place] 1.010 (1.000-1.035) (units unknown ) (unknown) (unknown) (no date) (unknown) (unknown) Urinalysis and Micro scopic Stat (units unknown ) (unknown) (unknown) (no date) (unknown) (unknown) Urine Appearance Clear (units unknown ) (unknown) (unknown) (no date) (unknown) (unknown) Urine Appearance (units unknown ) (unknown) (unknown) (no date) (unknown) (unknown) Urine Bacteria (None) (units unknown ) (unknown) (unknown) (no date) (unknown) (unknown) Urine Bacteria None seen (None) (units unknown ) (unknown) (unknown) (no date) (unknown) (unknown) Urine Bilirubin (NEGATIVE) (unit s unknown ) (unknown) (unknown) (no date) (unknown) (unknown) Urine Bilirubin Nega tive (NEGATIVE) (units unknown ) (unknown) (unknown) (no date) (unknown) (unknown) Urine Cocaine Screen (Negative) (units unknown ) (unknown) (unknown) (no date) (unknown) (unknown) Urine Cocaine Screen Negative (Negative) (units unknown ) (unknown) (unknown) (no date) (unknown) (unknown) Urine Color Yellow (units unknown ) (unknown) (unknown) (no date) (unknown) (unknown) Urine Color (units unknown ) (unknown) (unknown) (no date) (unknown) (unknown) Urine Culture Stat (units unknown ) (unknown) (unknown) (no date) (unknown) (unknown) Urine Drug Screen, R apid Stat (units unknown ) (unknown) (unknown) (no date) (unknown) (unknown) Urine Glucose (UA) (Negative) g/dL (units unknown ) (unknown) (unknown) (no date) (unknown) (unknown) Urine Glucose (UA) 3 + H (Negative) g/dL (units unknown ) (unknown) (unknown) (no date) (unknown) (unknown) Urine Ketones (NEGATIVE) (units unknown ) (unknown) (unknown) (no date) (unknown) (unknown) Urine Ketones 3+ H (NEGATIVE) (units unknown ) (unknown) (unknown) (no date) (unknown) (unknown) Urine Methadone Scre en (Negative) (units unknown ) (unknown) (unknown) (no date) (unknown) (unknown) Urine Methadone Scre en Negative (Negative) (units unknown ) (unknown) (unknown) (no date) (unknown) (unknown) Urine Nitrate (Negative) (units unknown ) (unknown) (unknown) (no date) (unknown) (unknown) Urine Nitrate Negati ve (Negative) (units unknown ) (unknown) (unknown) (no date) (unknown) (unknown) Urine Occult Blood (Negative) (units unknown ) (unknown) (unknown) (no date) (unknown) (unknown) Urine Occult Blood Negative (Negative) (units unknown ) (unknown) (unknown) (no date) (unknown) (unknown) Urine Protein (Negative) (units unknown ) (unknown) (unknown) (no date) (unknown) (unknown) Urine Protein Negati ve (Negative) (units unknown ) (unknown) (unknown) (no date) (unknown) (unknown) Urine RBC (0-5/HPF) (units unknown ) (unknown) (unknown) (no date) (unknown) (unknown) Urine RBC None seen (0-5/HPF) (units unknown ) (unknown) (unknown) (no date) (unknown) (unknown) Urine Urobilinogen ( 0.2) E.U./dL (units unknown ) (unknown) (unknown) (no date) (unknown) (unknown) Urine Urobilinogen 0 .2 (0.2) E.U./dL (units unknown ) (unknown) (unknown) (no date) (unknown) (unknown) Urine WBC (0-5/HPF) (units unknown ) (unknown) (unknown) (no date) (unknown) (unknown) Urine WBC None seen (0-5/HPF) (units unknown ) (unknown) (unknown) (no date) (unknown) (unknown) Urine pH (4.5-8.0) (units unknown ) (unknown) (unknown) (no date) (unknown) (unknown) Urine pH 6.0 (4.5-8.0) (units unknown ) (unknown) (unknown) (no date) (unknown) (unknown) VBG Base Excess (0-4 ) mmol/L (units unknown ) (unknown) (unknown) (no date) (unknown) (unknown) VBG Base Excess -11. 0 L (0-4) mmol/L (units unknown ) (unknown) (unknown) (no date) (unknown) (unknown) VBG HCO3 (24-28) mmol/L (units unknown ) (unknown) (unknown) (no date) (unknown) (unknown) VBG HCO3 15 L (24-28 ) mmol/L (units unknown ) (unknown) (unknown) (no date) (unknown) (unknown) VBG O2 Saturation (7 0-75) % (units unknown ) (unknown) (unknown) (no date) (unknown) (unknown) VBG O2 Saturation 46 L (70-75) % (units unknown ) (unknown) (unknown) (no date) (unknown) (unknown) VBG Total CO2 (24-29 ) mmol/L (units unknown ) (unknown) (unknown) (no date) (unknown) (unknown) VBG Total CO2 16 L ( 24-29) mmol/L (units unknown ) (unknown) (unknown) (no date) (unknown) (unknown) VBG [Venous Blood Ga s] Stat (units unknown ) (unknown) (unknown) (no date) (unknown) (unknown) VBG pCO2 (45-50) mmHg (units unknown ) (unknown) (unknown) (no date) (unknown) (unknown) VBG pCO2 26.7 L (45- 50) mmHg (units unknown ) (unknown) (unknown) (no date) (unknown) (unknown) VBG pH (7.33-7.43) (units unknown ) (unknown) (unknown) (no date) (unknown) (unknown) VBG pH 7.35 (7.33-7.43) (units unknown ) (unknown) (unknown) (no date) (unknown) (unknown) VBG pO2 (35-45) mmHg (units unknown ) (unknown) (unknown) (no date) (unknown) (unknown) VBG pO2 26 L (35-45) mmHg (units unknown ) (unknown) (unknown) (no date) (unknown) (unknown) Ventricular rate is 73 (units unknown ) (unknown) (unknown) (no date) (unknown) (unknown) Ventricular rate is 76 (units unknown ) (unknown) (unknown) (no date) (unknown) (unknown) Vital Signs - 8 hr (units unknown ) (unknown) (unknown) (no date) (unknown) (unknown) Vital Signs (units unknown ) (unknown) (unknown) (no date) (unknown) (unknown) Vital signs: (units unknown ) (unknown) (unknown) (no date) (unknown) (unknown) WBC (4.5-11.0) X103/uL (units unknown ) (unknown) (unknown) (no date) (unknown) (unknown) WBC 11.2 H (4.5-11.0 ) X103/uL (units unknown ) (unknown) (unknown) (no date) (unknown) (unknown) XR chest 1V Stat (units unknown ) (unknown) (unknown) (no date) (unknown) (unknown) [Embedded Image Not Available] (units unknown ) (unknown) (unknown) (no date) (unknown) (unknown) [From Novolog U-100 Insulin injection (units unknown ) (unknown) (unknown) (no date) (unknown) (unknown) [x] Data Review and interpretation (units unknown ) (unknown) (unknown) (no date) (unknown) (unknown) [x] Documentation (units unknown ) (unknown) (unknown) (no date) (unknown) (unknown) [x] Patient assessme nt and monitoring of vital signs (units unknown ) (unknown) (unknown) (no date) (unknown) (unknown) admit. (units unknown ) (unknown) (unknown) (no date) (unknown) (unknown) afterwards where he again became unresponsive in. The pass out. There was no (units unknown ) (unknown) (unknown) (no date) (unknown) (unknown) aggregate critical c are time was [40] minutes. This time is in addition to time (units unknown ) (unknown) (unknown) (no date) (unknown) (unknown) alcohol intake frequ ency: holidays/special occasions only (units unknown ) (unknown) (unknown) (no date) (unknown) (unknown) alcohol intake: never (units unknown ) (unknown) (unknown) (no date) (unknown) (unknown) and below (units unknown ) (unknown) (unknown) (no date) (unknown) (unknown) appear (units unknown ) (unknown) (unknown) (no date) (unknown) (unknown) aspart] site (units unknown ) (unknown) (unknown) (no date) (unknown) (unknown) bathroom and had wha t appeared to be a syncopal episode. He had another episode (units unknown ) (unknown) (unknown) (no date) (unknown) (unknown) breath. Prior to my initial evaluation patient was getting up to go to the (units unknown ) (unknown) (unknown) (no date) (unknown) (unknown) codeine [CODEINE] Al lergy Unknown Verified 05/27/22 13:06 (units unknown ) (unknown) (unknown) (no date) (unknown) (unknown) cyclobenzaprine 5 mg tablet 5 mg PO TID PRN muscle spasm #10 10/16/17 (units unknown ) (unknown) (unknown) (no date) (unknown) (unknown) deterioration of the [endocrine, respiratory, cardiovascular] system(s) required (units unknown ) (unknown) (unknown) (no date) (unknown) (unknown) doxycycline [DOXYCYC LINE] Allergy Unknown Verified 05/27/22 13:06 (units unknown ) (unknown) (unknown) (no date) (unknown) (unknown) have a continuous gl ucose monitor and also an insulin pump. Has been diabetic (units unknown ) (unknown) (unknown) (no date) (unknown) (unknown) he describes in his left side which is more in the left upper quadrant. No (units unknown ) (unknown) (unknown) (no date) (unknown) (unknown) here in the emergenc y department is more consistent with a vasovagal syncope. (units unknown ) (unknown) (unknown) (no date) (unknown) (unknown) insulin aspart Aller gy Unknown Rash at Verified 05/27/22 13:20 (units unknown ) (unknown) (unknown) (no date) (unknown) (unknown) insulin drip. Patien t does require admission to the hospital for his presenting (units unknown ) (unknown) (unknown) (no date) (unknown) (unknown) insulin lispro 100 u nit/mL 55 unit SLIDE ##0 08/30/10 (units unknown ) (unknown) (unknown) (no date) (unknown) (unknown) my full and direct attention, intervention and personal management. The (units unknown ) (unknown) (unknown) (no date) (unknown) (unknown) omeprazole [OMEPRAZO LE] Allergy Unknown Verified 05/27/22 13:06 (units unknown ) (unknown) (unknown) (no date) (unknown) (unknown) pancreatitis. Has a soft abdomen. Patient was started on fluids and then (units unknown ) (unknown) (unknown) (no date) (unknown) (unknown) recent travel. No ch anges medications. No diarrhea. Is having shortness of (units unknown ) (unknown) (unknown) (no date) (unknown) (unknown) seizure-like activity. (units unknown ) (unknown) (unknown) (no date) (unknown) (unknown) since 1998. Is here for evaluation of a fairly sudden onset of nausea and (units unknown ) (unknown) (unknown) (no date) (unknown) (unknown) specific source of infection found. The 2 episodes where he became syncopal (units unknown ) (unknown) (unknown) (no date) (unknown) (unknown) spent performing rep orted procedures but includes the following: (units unknown ) (unknown) (unknown) (no date) (unknown) (unknown) subcutaneous solutio n (Humalog (units unknown ) (unknown) (unknown) (no date) (unknown) (unknown) substance use type: does not use (units unknown ) (unknown) (unknown) (no date) (unknown) (unknown) symptoms. Discussed case with Dr. Coles on-call for Internal Medicine who will (units unknown ) (unknown) (unknown) (no date) (unknown) (unknown) tabs (units unknown ) (unknown) (unknown) (no date) (unknown) (unknown) unremarkable.? (units unknown ) (unknown) (unknown) (no date) (unknown) (unknown) vomiting that starte d just before noon today. Also having chest discomfort that (units unknown ) (unknown) (unknown) (no date) (unknown) (unknown) x[] Medication order s and management (units unknown ) (unknown) Result panel 299 (unknown) (no date) (unknown) (unknown) (no value) (units unknown ) (unknown) (unknown) (no date) (unknown) (unknown) # acute DKA (units unknown ) (unknown) (unknown) (no date) (unknown) (unknown) # toothache (units unknown ) (unknown) (unknown) (no date) (unknown) (unknown) # type 1 diabetes (units unknown ) (unknown) (unknown) (no date) (unknown) (unknown) (past 8 hours): (units unknown ) (unknown) (unknown) (no date) (unknown) (unknown) -A1c 9.5% (units unknown ) (unknown) (unknown) (no date) (unknown) (unknown) -blood sugar 731 on admission, anion gap 26, bicarb 12, ketones positive at 6.46 (units unknown ) (unknown) (unknown) (no date) (unknown) (unknown) -continue Rocephin a nd Flagyl (units unknown ) (unknown) (unknown) (no date) (unknown) (unknown) -dietitian consulted (units unknown ) (unknown) (unknown) (no date) (unknown) (unknown) -on insulin protocol (units unknown ) (unknown) (unknown) (no date) (unknown) (unknown) -tele ICU consulted (units unknown ) (unknown) (unknown) (no date) (unknown) (unknown) -transition to subcutaneous insulin once gap closes (units unknown ) (unknown) (unknown) (no date) (unknown) (unknown) -unclear if he has d ental infection which triggered the DKA, as he is noticed a (units unknown ) (unknown) (unknown) (no date) (unknown) (unknown) 05/27/22 05/27/22 05/27/22 (unit s unknown ) (unknown) (unknown) (no date) (unknown) (unknown) 05/27/22 13:50 (units unknown ) (unknown) (unknown) (no date) (unknown) (unknown) 05/27/22 16:50 (units unknown ) (unknown) (unknown) (no date) (unknown) (unknown) 05/27/22 1943 (units unknown ) (unknown) (unknown) (no date) (unknown) (unknown) 05/27/22 (units unknown ) (unknown) (unknown) (no date) (unknown) (unknown) 12:55 13:50 13:50 (units unknown ) (unknown) (unknown) (no date) (unknown) (unknown) 13:06 05/27/22 (units unknown ) (unknown) (unknown) (no date) (unknown) (unknown) 13:37 05/27/22 (units unknown ) (unknown) (unknown) (no date) (unknown) (unknown) 13:37 (units unknown ) (unknown) (unknown) (no date) (unknown) (unknown) 13:40 05/27/22 (units unknown ) (unknown) (unknown) (no date) (unknown) (unknown) 13:45 05/27/22 (units unknown ) (unknown) (unknown) (no date) (unknown) (unknown) 13:45 (units unknown ) (unknown) (unknown) (no date) (unknown) (unknown) 13:50 13:50 13:50 (units unknown ) (unknown) (unknown) (no date) (unknown) (unknown) 13:55 05/27/22 (units unknown ) (unknown) (unknown) (no date) (unknown) (unknown) 13:55 (units unknown ) (unknown) (unknown) (no date) (unknown) (unknown) 14:00 05/27/22 (units unknown ) (unknown) (unknown) (no date) (unknown) (unknown) 14:05 05/27/22 (units unknown ) (unknown) (unknown) (no date) (unknown) (unknown) 14:05 (units unknown ) (unknown) (unknown) (no date) (unknown) (unknown) 14:10 05/27/22 (units unknown ) (unknown) (unknown) (no date) (unknown) (unknown) 14:10 (units unknown ) (unknown) (unknown) (no date) (unknown) (unknown) 14:15 05/27/22 (units unknown ) (unknown) (unknown) (no date) (unknown) (unknown) 14:15 14:40 14:40 (units unknown ) (unknown) (unknown) (no date) (unknown) (unknown) 14:20 05/27/22 (units unknown ) (unknown) (unknown) (no date) (unknown) (unknown) 14:20 (units unknown ) (unknown) (unknown) (no date) (unknown) (unknown) 14:28 05/27/22 (units unknown ) (unknown) (unknown) (no date) (unknown) (unknown) 14:28 (units unknown ) (unknown) (unknown) (no date) (unknown) (unknown) 14:30 05/27/22 (units unknown ) (unknown) (unknown) (no date) (unknown) (unknown) 14:41 05/27/22 (units unknown ) (unknown) (unknown) (no date) (unknown) (unknown) 14:41 (units unknown ) (unknown) (unknown) (no date) (unknown) (unknown) 14:45 05/27/22 (units unknown ) (unknown) (unknown) (no date) (unknown) (unknown) 15:00 05/27/22 (units unknown ) (unknown) (unknown) (no date) (unknown) (unknown) 15:00 (units unknown ) (unknown) (unknown) (no date) (unknown) (unknown) 15:12 16:28 16:50 (units unknown ) (unknown) (unknown) (no date) (unknown) (unknown) 15:30 05/27/22 (units unknown ) (unknown) (unknown) (no date) (unknown) (unknown) 16:00 (units unknown ) (unknown) (unknown) (no date) (unknown) (unknown) 16:30 05/27/22 (units unknown ) (unknown) (unknown) (no date) (unknown) (unknown) 17:00 05/27/22 (units unknown ) (unknown) (unknown) (no date) (unknown) (unknown) 17:30 (units unknown ) (unknown) (unknown) (no date) (unknown) (unknown) 6599 (units unknown ) (unknown) (unknown) (no date) (unknown) (unknown) ABD: soft, nontender , nondistended, no organomegaly (units unknown ) (unknown) (unknown) (no date) (unknown) (unknown) ABG Base Excess -15.0 L (units unknown ) (unknown) (unknown) (no date) (unknown) (unknown) ABG Base Excess (units unknown ) (unknown) (unknown) (no date) (unknown) (unknown) ABG HCO3 12 L (units unknown ) (unknown) (unknown) (no date) (unknown) (unknown) ABG HCO3 (units unknown ) (unknown) (unknown) (no date) (unknown) (unknown) ABG O2 Saturation 97 (units unknown ) (unknown) (unknown) (no date) (unknown) (unknown) ABG O2 Saturation (units unknown ) (unknown) (unknown) (no date) (unknown) (unknown) ABG Total CO2 12 L (units unknown ) (unknown) (unknown) (no date) (unknown) (unknown) ABG Total CO2 (units unknown ) (unknown) (unknown) (no date) (unknown) (unknown) ABG pCO2 24.9 L* (units unknown ) (unknown) (unknown) (no date) (unknown) (unknown) ABG pCO2 (units unknown ) (unknown) (unknown) (no date) (unknown) (unknown) ABG pH 7.27 L* (units unknown ) (unknown) (unknown) (no date) (unknown) (unknown) ABG pH (units unknown ) (unknown) (unknown) (no date) (unknown) (unknown) ABG pO2 99 (units unknown ) (unknown) (unknown) (no date) (unknown) (unknown) ABG pO2 (units unknown ) (unknown) (unknown) (no date) (unknown) (unknown) ALT 40 (units unknown ) (unknown) (unknown) (no date) (unknown) (unknown) ALT 44 (units unknown ) (unknown) (unknown) (no date) (unknown) (unknown) ALT (units unknown ) (unknown) (unknown) (no date) (unknown) (unknown) AST 27 (units unknown ) (unknown) (unknown) (no date) (unknown) (unknown) AST 30 (units unknown ) (unknown) (unknown) (no date) (unknown) (unknown) AST (units unknown ) (unknown) (unknown) (no date) (unknown) (unknown) Age/Sex: 56 / M (units unknown ) (unknown) (unknown) (no date) (unknown) (unknown) Albumin 4.1 (units unknown ) (unknown) (unknown) (no date) (unknown) (unknown) Albumin 4.7 (units unknown ) (unknown) (unknown) (no date) (unknown) (unknown) Albumin (units unknown ) (unknown) (unknown) (no date) (unknown) (unknown) Albumin/Globulin Ratio 1.5 (unit s unknown ) (unknown) (unknown) (no date) (unknown) (unknown) Albumin/Globulin Ratio (units unknown ) (unknown) (unknown) (no date) (unknown) (unknown) Alkaline Phosphatase 104 (units unknown ) (unknown) (unknown) (no date) (unknown) (unknown) Alkaline Phosphatase 79 (units unknown ) (unknown) (unknown) (no date) (unknown) (unknown) Alkaline Phosphatase (units unknown ) (unknown) (unknown) (no date) (unknown) (unknown) All other systems re viewed with the patient and are negative unless otherwise (units unknown ) (unknown) (unknown) (no date) (unknown) (unknown) Allergies (units unknown ) (unknown) (unknown) (no date) (unknown) (unknown) Allergy/AdvReac Type Severity Reaction Status Date / Time (units unknown ) (unknown) (unknown) (no date) (unknown) (unknown) Amorphous Sediment 1 (units unknown ) (unknown) (unknown) (no date) (unknown) (unknown) Amorphous Sediment (units unknown ) (unknown) (unknown) (no date) (unknown) (unknown) Assessment + Plan narrative: (units unknown ) (unknown) (unknown) (no date) (unknown) (unknown) Assessment + Plan (units unknown ) (unknown) (unknown) (no date) (unknown) (unknown) BUN 23 H (units unknown ) (unknown) (unknown) (no date) (unknown) (unknown) BUN 24 H (units unknown ) (unknown) (unknown) (no date) (unknown) (unknown) BUN (units unknown ) (unknown) (unknown) (no date) (unknown) (unknown) BUN/Creatinine Ratio 20.0 (units unknown ) (unknown) (unknown) (no date) (unknown) (unknown) BUN/Creatinine Ratio 21.4 (units unknown ) (unknown) (unknown) (no date) (unknown) (unknown) BUN/Creatinine Ratio (units unknown ) (unknown) (unknown) (no date) (unknown) (unknown) Baso # (Auto) 100 (units unknown ) (unknown) (unknown) (no date) (unknown) (unknown) Baso # (Auto) (units unknown ) (unknown) (unknown) (no date) (unknown) (unknown) Baso % (Auto) 0.5 (units unknown ) (unknown) (unknown) (no date) (unknown) (unknown) Baso % (Auto) (units unknown ) (unknown) (unknown) (no date) (unknown) (unknown) Blood Pressure 121/58 L (units unknown ) (unknown) (unknown) (no date) (unknown) (unknown) Blood Pressure 123/62 (units unknown ) (unknown) (unknown) (no date) (unknown) (unknown) Blood Pressure 128/58 L (units unknown ) (unknown) (unknown) (no date) (unknown) (unknown) Blood Pressure 133/6 1 152/61 H (units unknown ) (unknown) (unknown) (no date) (unknown) (unknown) Blood Pressure 139/6 3 141/97 H (units unknown ) (unknown) (unknown) (no date) (unknown) (unknown) Blood Pressure 140/6 1 108/53 L (units unknown ) (unknown) (unknown) (no date) (unknown) (unknown) Blood Pressure 142/87 H (units unknown ) (unknown) (unknown) (no date) (unknown) (unknown) Blood Pressure 144/5 8 H 148/67 H (units unknown ) (unknown) (unknown) (no date) (unknown) (unknown) Blood Pressure 148/6 9 H 129/63 (units unknown ) (unknown) (unknown) (no date) (unknown) (unknown) Blood Pressure (units unknown ) (unknown) (unknown) (no date) (unknown) (unknown) CK-MB (CK-2) Rel Index TNP (unit s unknown ) (unknown) (unknown) (no date) (unknown) (unknown) CK-MB (CK-2) Rel Index (units unknown ) (unknown) (unknown) (no date) (unknown) (unknown) CK-MB (CK-2) TNP (units unknown ) (unknown) (unknown) (no date) (unknown) (unknown) CK-MB (CK-2) (units unknown ) (unknown) (unknown) (no date) (unknown) (unknown) COVID negative. (units unknown ) (unknown) (unknown) (no date) (unknown) (unknown) CV: regular rate and rhythm, no murmurs (units unknown ) (unknown) (unknown) (no date) (unknown) (unknown) Calcium 8.8 (units unknown ) (unknown) (unknown) (no date) (unknown) (unknown) Calcium 9.7 (units unknown ) (unknown) (unknown) (no date) (unknown) (unknown) Calcium (units unknown ) (unknown) (unknown) (no date) (unknown) (unknown) Carbon Dioxide 12 L (units unknown ) (unknown) (unknown) (no date) (unknown) (unknown) Carbon Dioxide 8 L* (units unknown ) (unknown) (unknown) (no date) (unknown) (unknown) Carbon Dioxide (units unknown ) (unknown) (unknown) (no date) (unknown) (unknown) Chief complaint: nan st pain/ n+v/ high glucose (units unknown ) (unknown) (unknown) (no date) (unknown) (unknown) Chloride 103 (units unknown ) (unknown) (unknown) (no date) (unknown) (unknown) Chloride 94 L (units unknown ) (unknown) (unknown) (no date) (unknown) (unknown) Chloride (units unknown ) (unknown) (unknown) (no date) (unknown) (unknown) Code status is full code. (units unknown ) (unknown) (unknown) (no date) (unknown) (unknown) Creatinine 1.12 (units unknown ) (unknown) (unknown) (no date) (unknown) (unknown) Creatinine 1.15 (units unknown ) (unknown) (unknown) (no date) (unknown) (unknown) Creatinine (units unknown ) (unknown) (unknown) (no date) (unknown) (unknown) Critical Care time: (units unknown ) (unknown) (unknown) (no date) (unknown) (unknown) : 1965 Acct:[id number] (units unknown ) (unknown) (unknown) (no date) (unknown) (unknown) DVT prophylaxis with SCDs. (unit s unknown ) (unknown) (unknown) (no date) (unknown) (unknown) Date Patient Seen: 05/27/22 (units unknown ) (unknown) (unknown) (no date) (unknown) (unknown) Date of Service: 05/27/22 (units unknown ) (unknown) (unknown) (no date) (unknown) (unknown) EXT: warm and well perfused with no edema (units unknown ) (unknown) (unknown) (no date) (unknown) (unknown) Environment (units unknown ) (unknown) (unknown) (no date) (unknown) (unknown) Eos # (Auto) 0 (units unknown ) (unknown) (unknown) (no date) (unknown) (unknown) Eos # (Auto) (units unknown ) (unknown) (unknown) (no date) (unknown) (unknown) Eos % (Auto) 0.1 L (units unknown ) (unknown) (unknown) (no date) (unknown) (unknown) Eos % (Auto) (units unknown ) (unknown) (unknown) (no date) (unknown) (unknown) Estimated GFR > 60 (units unknown ) (unknown) (unknown) (no date) (unknown) (unknown) Estimated GFR (units unknown ) (unknown) (unknown) (no date) (unknown) (unknown) Ethyl Alcohol < 10 (units unknown ) (unknown) (unknown) (no date) (unknown) (unknown) Ethyl Alcohol (units unknown ) (unknown) (unknown) (no date) (unknown) (unknown) Exam Narrative: (units unknown ) (unknown) (unknown) (no date) (unknown) (unknown) Exam (units unknown ) (unknown) (unknown) (no date) (unknown) (unknown) Family + Social History (units unknown ) (unknown) (unknown) (no date) (unknown) (unknown) Feels Safe in Current Yes (units unknown ) (unknown) (unknown) (no date) (unknown) (unknown) FiO2 21 (units unknown ) (unknown) (unknown) (no date) (unknown) (unknown) FiO2 (units unknown ) (unknown) (unknown) (no date) (unknown) (unknown) GEN: no acute distress (units unknown ) (unknown) (unknown) (no date) (unknown) (unknown) Globulin 2.8 (units unknown ) (unknown) (unknown) (no date) (unknown) (unknown) Globulin 3.1 (units unknown ) (unknown) (unknown) (no date) (unknown) (unknown) Globulin (units unknown ) (unknown) (unknown) (no date) (unknown) (unknown) Glucose 532 H* (units unknown ) (unknown) (unknown) (no date) (unknown) (unknown) Glucose 731 H* (units unknown ) (unknown) (unknown) (no date) (unknown) (unknown) Glucose (units unknown ) (unknown) (unknown) (no date) (unknown) (unknown) HEENT: moist mucous membranes, PERRL (units unknown ) (unknown) (unknown) (no date) (unknown) (unknown) Hct 44.7 (units unknown ) (unknown) (unknown) (no date) (unknown) (unknown) Hct (units unknown ) (unknown) (unknown) (no date) (unknown) (unknown) He also notes some l eft CP below his nipple which he says 'always happens when I (units unknown ) (unknown) (unknown) (no date) (unknown) (unknown) Hemoglobin A1c 9.5 H (units unknown ) (unknown) (unknown) (no date) (unknown) (unknown) Hemoglobin A1c (units unknown ) (unknown) (unknown) (no date) (unknown) (unknown) Hgb 14.9 (units unknown ) (unknown) (unknown) (no date) (unknown) (unknown) Hgb (units unknown ) (unknown) (unknown) (no date) (unknown) (unknown) History + Physical Report (units unknown ) (unknown) (unknown) (no date) (unknown) (unknown) History of Present Illness (unit s unknown ) (unknown) (unknown) (no date) (unknown) (unknown) Home Medications and Allergies (units unknown ) (unknown) (unknown) (no date) (unknown) (unknown) Home Medications (units unknown ) (unknown) (unknown) (no date) (unknown) (unknown) I have reviewed home meds and used all available resources to reconcile the home (units unknown ) (unknown) (unknown) (no date) (unknown) (unknown) I spent a total of 3 5 minutes of critical care time on this patient's care (units unknown ) (unknown) (unknown) (no date) (unknown) (unknown) I spent a total of [ ] minutes of critical care time on this patient's care (units unknown ) (unknown) (unknown) (no date) (unknown) (unknown) Insulin dependent di abetes mellitus (units unknown ) (unknown) (unknown) (no date) (unknown) (unknown) [address] [address] (units unknown ) (unknown) (unknown) (no date) (unknown) (unknown) Avinash Meredith is a 56-year-old male with past medical history of type 1 diabetes (units unknown ) (unknown) (unknown) (no date) (unknown) (unknown) Ketones 6.46 H (units unknown ) (unknown) (unknown) (no date) (unknown) (unknown) Ketones (units unknown ) (unknown) (unknown) (no date) (unknown) (unknown) Laboratory Results - last 24 hr (units unknown ) (unknown) (unknown) (no date) (unknown) (unknown) Labs (units unknown ) (unknown) (unknown) (no date) (unknown) (unknown) Labs: (units unknown ) (unknown) (unknown) (no date) (unknown) (unknown) Lipase 62 (units unknown ) (unknown) (unknown) (no date) (unknown) (unknown) Lipase (units unknown ) (unknown) (unknown) (no date) (unknown) (unknown) Lymph # (Auto) 700 L (units unknown ) (unknown) (unknown) (no date) (unknown) (unknown) Lymph # (Auto) (units unknown ) (unknown) (unknown) (no date) (unknown) (unknown) Lymph % (Auto) 6.4 L (units unknown ) (unknown) (unknown) (no date) (unknown) (unknown) Lymph % (Auto) (units unknown ) (unknown) (unknown) (no date) (unknown) (unknown) MCH 29.7 (units unknown ) (unknown) (unknown) (no date) (unknown) (unknown) MCH (units unknown ) (unknown) (unknown) (no date) (unknown) (unknown) MCHC 33.3 (units unknown ) (unknown) (unknown) (no date) (unknown) (unknown) MCHC (units unknown ) (unknown) (unknown) (no date) (unknown) (unknown) MCV 89.1 (units unknown ) (unknown) (unknown) (no date) (unknown) (unknown) MCV (units unknown ) (unknown) (unknown) (no date) (unknown) (unknown) Magnesium 1.8 (units unknown ) (unknown) (unknown) (no date) (unknown) (unknown) Magnesium (units unknown ) (unknown) (unknown) (no date) (unknown) (unknown) Medical History (Rev iewed 05/27/22 @ 19:26 by Dalton Graff DO) (units unknown ) (unknown) (unknown) (no date) (unknown) (unknown) Medication Instructi ons Recorded Confirmed Type (units unknown ) (unknown) (unknown) (no date) (unknown) (unknown) Meds (units unknown ) (unknown) (unknown) (no date) (unknown) (unknown) [place] # (Auto) 300 (units unknown ) (unknown) (unknown) (no date) (unknown) (unknown) [place] # (Auto) (units unknown ) (unknown) (unknown) (no date) (unknown) (unknown) [place] % (Auto) 2.7 L (units unknown ) (unknown) (unknown) (no date) (unknown) (unknown) [place] % (Auto) (units unknown ) (unknown) (unknown) (no date) (unknown) (unknown) NECK: trachea midlin e, no JVD (units unknown ) (unknown) (unknown) (no date) (unknown) (unknown) NEURO: awake, alert, oriented, no focal deficits (units unknown ) (unknown) (unknown) (no date) (unknown) (unknown) Narrative (units unknown ) (unknown) (unknown) (no date) (unknown) (unknown) Narrative: (units unknown ) (unknown) (unknown) (no date) (unknown) (unknown) Neut # (Auto) 41553 H (units unknown ) (unknown) (unknown) (no date) (unknown) (unknown) Neut # (Auto) (units unknown ) (unknown) (unknown) (no date) (unknown) (unknown) Neut % (Auto) 90.3 H (units unknown ) (unknown) (unknown) (no date) (unknown) (unknown) Neut % (Auto) (units unknown ) (unknown) (unknown) (no date) (unknown) (unknown) Objective (units unknown ) (unknown) (unknown) (no date) (unknown) (unknown) Oxygen Delivery Meth od Room Air (units unknown ) (unknown) (unknown) (no date) (unknown) (unknown) Oxygen Delivery Method (units unknown ) (unknown) (unknown) (no date) (unknown) (unknown) PULM: clear bilaterally (units unknown ) (unknown) (unknown) (no date) (unknown) (unknown) Patient History (units unknown ) (unknown) (unknown) (no date) (unknown) (unknown) Patient: Avinash Meredith MR#: [id number] (units unknown ) (unknown) (unknown) (no date) (unknown) (unknown) Phosphorus 3.6 (units unknown ) (unknown) (unknown) (no date) (unknown) (unknown) Phosphorus (units unknown ) (unknown) (unknown) (no date) (unknown) (unknown) Plt Count 243 (units unknown ) (unknown) (unknown) (no date) (unknown) (unknown) Plt Count (units unknown ) (unknown) (unknown) (no date) (unknown) (unknown) Potassium 4.4 (units unknown ) (unknown) (unknown) (no date) (unknown) (unknown) Potassium 5.0 (units unknown ) (unknown) (unknown) (no date) (unknown) (unknown) Potassium (units unknown ) (unknown) (unknown) (no date) (unknown) (unknown) Provider: Mckinley Coles.Cristiane (units unknown ) (unknown) (unknown) (no date) (unknown) (unknown) Proxy is jovanna Cardozo. (units unknown ) (unknown) (unknown) (no date) (unknown) (unknown) Pulse Oximetry 100 100 99 (units unknown ) (unknown) (unknown) (no date) (unknown) (unknown) Pulse Oximetry 100 100 (units unknown ) (unknown) (unknown) (no date) (unknown) (unknown) Pulse Oximetry 100 (units unknown ) (unknown) (unknown) (no date) (unknown) (unknown) Pulse Oximetry 97 98 (units unknown ) (unknown) (unknown) (no date) (unknown) (unknown) Pulse Oximetry 98 100 (units unknown ) (unknown) (unknown) (no date) (unknown) (unknown) Pulse Oximetry 99 100 (units unknown ) (unknown) (unknown) (no date) (unknown) (unknown) Pulse Rate 73 77 (units unknown ) (unknown) (unknown) (no date) (unknown) (unknown) Pulse Rate 74 76 (units unknown ) (unknown) (unknown) (no date) (unknown) (unknown) Pulse Rate 75 (units unknown ) (unknown) (unknown) (no date) (unknown) (unknown) Pulse Rate 76 77 (units unknown ) (unknown) (unknown) (no date) (unknown) (unknown) Pulse Rate 78 76 (units unknown ) (unknown) (unknown) (no date) (unknown) (unknown) Pulse Rate 78 (units unknown ) (unknown) (unknown) (no date) (unknown) (unknown) Pulse Rate 79 (units unknown ) (unknown) (unknown) (no date) (unknown) (unknown) Pulse Rate 81 74 (units unknown ) (unknown) (unknown) (no date) (unknown) (unknown) Pulse Rate 83 76 72 (units unknown ) (unknown) (unknown) (no date) (unknown) (unknown) Pulse Rate 92 H 80 77 (units unknown ) (unknown) (unknown) (no date) (unknown) (unknown) RBC 5.02 (units unknown ) (unknown) (unknown) (no date) (unknown) (unknown) RBC (units unknown ) (unknown) (unknown) (no date) (unknown) (unknown) RDW 13.3 (units unknown ) (unknown) (unknown) (no date) (unknown) (unknown) RDW (units unknown ) (unknown) (unknown) (no date) (unknown) (unknown) Respiratory Rate 18 19 18 (units unknown ) (unknown) (unknown) (no date) (unknown) (unknown) Respiratory Rate 20 (units unknown ) (unknown) (unknown) (no date) (unknown) (unknown) Respiratory Rate 22 15 (units unknown ) (unknown) (unknown) (no date) (unknown) (unknown) Respiratory Rate 27 H 28 H (unit s unknown ) (unknown) (unknown) (no date) (unknown) (unknown) Respiratory Rate 28 H 38 H (unit s unknown ) (unknown) (unknown) (no date) (unknown) (unknown) Respiratory Rate 28 H (units unknown ) (unknown) (unknown) (no date) (unknown) (unknown) Respiratory Rate 29 H (units unknown ) (unknown) (unknown) (no date) (unknown) (unknown) Respiratory Rate 33 H (units unknown ) (unknown) (unknown) (no date) (unknown) (unknown) Respiratory Rate 41 H 19 (units unknown ) (unknown) (unknown) (no date) (unknown) (unknown) Respiratory Rate 41 H 28 H 27 H (units unknown ) (unknown) (unknown) (no date) (unknown) (unknown) Respiratory Rate 44 H 27 H (unit s unknown ) (unknown) (unknown) (no date) (unknown) (unknown) Review of Systems (units unknown ) (unknown) (unknown) (no date) (unknown) (unknown) SARS-CoV-2 (PCR) Negative (units unknown ) (unknown) (unknown) (no date) (unknown) (unknown) SARS-CoV-2 (PCR) (units unknown ) (unknown) (unknown) (no date) (unknown) (unknown) Safety + Behavioral: (units unknown ) (unknown) (unknown) (no date) (unknown) (unknown) Signed By:<Keven desir signed by Rajesh Coles D.O.> (units unknown ) (unknown) (unknown) (no date) (unknown) (unknown) Smoking Status Forme r smoker (units unknown ) (unknown) (unknown) (no date) (unknown) (unknown) Sodium 132 L (units unknown ) (unknown) (unknown) (no date) (unknown) (unknown) Sodium 136 L (units unknown ) (unknown) (unknown) (no date) (unknown) (unknown) Sodium (units unknown ) (unknown) (unknown) (no date) (unknown) (unknown) Substance Use Type marijuana (units unknown ) (unknown) (unknown) (no date) (unknown) (unknown) TSH 2.80 (units unknown ) (unknown) (unknown) (no date) (unknown) (unknown) TSH (units unknown ) (unknown) (unknown) (no date) (unknown) (unknown) Temperature 97.5 F L (units unknown ) (unknown) (unknown) (no date) (unknown) (unknown) Temperature (units unknown ) (unknown) (unknown) (no date) (unknown) (unknown) This patient will be admitted as ICU and will require greater than 2 midnights (units unknown ) (unknown) (unknown) (no date) (unknown) (unknown) Time Patient Seen: 19:34 (units unknown ) (unknown) (unknown) (no date) (unknown) (unknown) Time Spent With Patient (units unknown ) (unknown) (unknown) (no date) (unknown) (unknown) Tobacco + Substance use: (units unknown ) (unknown) (unknown) (no date) (unknown) (unknown) Total Bilirubin 2.2 H (units unknown ) (unknown) (unknown) (no date) (unknown) (unknown) Total Bilirubin 2.7 H (units unknown ) (unknown) (unknown) (no date) (unknown) (unknown) Total Bilirubin (units unknown ) (unknown) (unknown) (no date) (unknown) (unknown) Total Creatine Kinase 57 (units unknown ) (unknown) (unknown) (no date) (unknown) (unknown) Total Creatine Kinase (units unknown ) (unknown) (unknown) (no date) (unknown) (unknown) Total Protein 6.9 (units unknown ) (unknown) (unknown) (no date) (unknown) (unknown) Total Protein 7.8 (units unknown ) (unknown) (unknown) (no date) (unknown) (unknown) Total Protein (units unknown ) (unknown) (unknown) (no date) (unknown) (unknown) Troponin I < 0.012 (units unknown ) (unknown) (unknown) (no date) (unknown) (unknown) Troponin I (units unknown ) (unknown) (unknown) (no date) (unknown) (unknown) U Benzodiazepines Sc rn Negative (units unknown ) (unknown) (unknown) (no date) (unknown) (unknown) U Benzodiazepines Scrn (units unknown ) (unknown) (unknown) (no date) (unknown) (unknown) U Marijuana (THC) Sc reen Positive H (units unknown ) (unknown) (unknown) (no date) (unknown) (unknown) U Marijuana (THC) Screen (units unknown ) (unknown) (unknown) (no date) (unknown) (unknown) U Methamphetamines S crn Negative (units unknown ) (unknown) (unknown) (no date) (unknown) (unknown) U Methamphetamines Scrn (units unknown ) (unknown) (unknown) (no date) (unknown) (unknown) U Opiates 300ng/mL c ut Negative (units unknown ) (unknown) (unknown) (no date) (unknown) (unknown) U Opiates 300ng/mL cut (units unknown ) (unknown) (unknown) (no date) (unknown) (unknown) U Tricyclic Antidepr ess Negative (units unknown ) (unknown) (unknown) (no date) (unknown) (unknown) U Tricyclic Antidepress (units unknown ) (unknown) (unknown) (no date) (unknown) (unknown) U-100 Insulin) (units unknown ) (unknown) (unknown) (no date) (unknown) (unknown) Ur Amphetamines Scre en Negative (units unknown ) (unknown) (unknown) (no date) (unknown) (unknown) Ur Amphetamines Screen (units unknown ) (unknown) (unknown) (no date) (unknown) (unknown) Ur Barbiturates Scre en Negative (units unknown ) (unknown) (unknown) (no date) (unknown) (unknown) Ur Barbiturates Screen (units unknown ) (unknown) (unknown) (no date) (unknown) (unknown) Ur Culture Indicated ? Cult not indicated (units unknown ) (unknown) (unknown) (no date) (unknown) (unknown) Ur Culture Indicated? (units unknown ) (unknown) (unknown) (no date) (unknown) (unknown) Ur Leukocyte [place] e Negative (units unknown ) (unknown) (unknown) (no date) (unknown) (unknown) Ur Leukocyte Esterase (units unknown ) (unknown) (unknown) (no date) (unknown) (unknown) Ur MDMA Scrn ([place] y) Negative (units unknown ) (unknown) (unknown) (no date) (unknown) (unknown) Ur MDMA Scrn ([place]) (units unknown ) (unknown) (unknown) (no date) (unknown) (unknown) Ur Oxycodone Screen Negative (units unknown ) (unknown) (unknown) (no date) (unknown) (unknown) Ur Oxycodone Screen (units unknown ) (unknown) (unknown) (no date) (unknown) (unknown) Ur Phencyclidine Scr n Negative (units unknown ) (unknown) (unknown) (no date) (unknown) (unknown) Ur Phencyclidine Scrn (units unknown ) (unknown) (unknown) (no date) (unknown) (unknown) Ur Specific [place] 1.010 (units unknown ) (unknown) (unknown) (no date) (unknown) (unknown) Ur Specific [place] (units unknown ) (unknown) (unknown) (no date) (unknown) (unknown) Urine Appearance Clear (units unknown ) (unknown) (unknown) (no date) (unknown) (unknown) Urine Appearance (units unknown ) (unknown) (unknown) (no date) (unknown) (unknown) Urine Bacteria None seen (units unknown ) (unknown) (unknown) (no date) (unknown) (unknown) Urine Bacteria (units unknown ) (unknown) (unknown) (no date) (unknown) (unknown) Urine Bilirubin Negative (units unknown ) (unknown) (unknown) (no date) (unknown) (unknown) Urine Bilirubin (units unknown ) (unknown) (unknown) (no date) (unknown) (unknown) Urine Cocaine Screen Negative (units unknown ) (unknown) (unknown) (no date) (unknown) (unknown) Urine Cocaine Screen (units unknown ) (unknown) (unknown) (no date) (unknown) (unknown) Urine Color Yellow (units unknown ) (unknown) (unknown) (no date) (unknown) (unknown) Urine Color (units unknown ) (unknown) (unknown) (no date) (unknown) (unknown) Urine Glucose (UA) 3+ H (units unknown ) (unknown) (unknown) (no date) (unknown) (unknown) Urine Glucose (UA) (units unknown ) (unknown) (unknown) (no date) (unknown) (unknown) Urine Ketones 3+ H (units unknown ) (unknown) (unknown) (no date) (unknown) (unknown) Urine Ketones (units unknown ) (unknown) (unknown) (no date) (unknown) (unknown) Urine Methadone Scre en Negative (units unknown ) (unknown) (unknown) (no date) (unknown) (unknown) Urine Methadone Screen (units unknown ) (unknown) (unknown) (no date) (unknown) (unknown) Urine Nitrate Negative (units unknown ) (unknown) (unknown) (no date) (unknown) (unknown) Urine Nitrate (units unknown ) (unknown) (unknown) (no date) (unknown) (unknown) Urine Occult Blood Negative (units unknown ) (unknown) (unknown) (no date) (unknown) (unknown) Urine Occult Blood (units unknown ) (unknown) (unknown) (no date) (unknown) (unknown) Urine Protein Negative (units unknown ) (unknown) (unknown) (no date) (unknown) (unknown) Urine Protein (units unknown ) (unknown) (unknown) (no date) (unknown) (unknown) Urine RBC None seen (units unknown ) (unknown) (unknown) (no date) (unknown) (unknown) Urine RBC (units unknown ) (unknown) (unknown) (no date) (unknown) (unknown) Urine Urobilinogen 0.2 (units unknown ) (unknown) (unknown) (no date) (unknown) (unknown) Urine Urobilinogen (units unknown ) (unknown) (unknown) (no date) (unknown) (unknown) Urine WBC None seen (units unknown ) (unknown) (unknown) (no date) (unknown) (unknown) Urine WBC (units unknown ) (unknown) (unknown) (no date) (unknown) (unknown) Urine pH 6.0 (units unknown ) (unknown) (unknown) (no date) (unknown) (unknown) Urine pH (units unknown ) (unknown) (unknown) (no date) (unknown) (unknown) VBG Base Excess -11.0 L (units unknown ) (unknown) (unknown) (no date) (unknown) (unknown) VBG Base Excess (units unknown ) (unknown) (unknown) (no date) (unknown) (unknown) VBG HCO3 15 L (units unknown ) (unknown) (unknown) (no date) (unknown) (unknown) VBG HCO3 (units unknown ) (unknown) (unknown) (no date) (unknown) (unknown) VBG O2 Saturation 46 L (units unknown ) (unknown) (unknown) (no date) (unknown) (unknown) VBG O2 Saturation (units unknown ) (unknown) (unknown) (no date) (unknown) (unknown) VBG Total CO2 16 L (units unknown ) (unknown) (unknown) (no date) (unknown) (unknown) VBG Total CO2 (units unknown ) (unknown) (unknown) (no date) (unknown) (unknown) VBG pCO2 26.7 L (units unknown ) (unknown) (unknown) (no date) (unknown) (unknown) VBG pCO2 (units unknown ) (unknown) (unknown) (no date) (unknown) (unknown) VBG pH 7.35 (units unknown ) (unknown) (unknown) (no date) (unknown) (unknown) VBG pH (units unknown ) (unknown) (unknown) (no date) (unknown) (unknown) VBG pO2 26 L (units unknown ) (unknown) (unknown) (no date) (unknown) (unknown) VBG pO2 (units unknown ) (unknown) (unknown) (no date) (unknown) (unknown) Vital Signs (units unknown ) (unknown) (unknown) (no date) (unknown) (unknown) WBC 11.2 H (units unknown ) (unknown) (unknown) (no date) (unknown) (unknown) WBC (units unknown ) (unknown) (unknown) (no date) (unknown) (unknown) [Embedded Image Not Available] (units unknown ) (unknown) (unknown) (no date) (unknown) (unknown) [From Novolog U-100 Insulin injection (units unknown ) (unknown) (unknown) (no date) (unknown) (unknown) alcohol intake frequ ency holiday/special occasion (units unknown ) (unknown) (unknown) (no date) (unknown) (unknown) alcohol intake never (units unknown ) (unknown) (unknown) (no date) (unknown) (unknown) aspart] site (units unknown ) (unknown) (unknown) (no date) (unknown) (unknown) bicarb of 12. Darryl t states he woke up this morning feeling fine, then ate some (units unknown ) (unknown) (unknown) (no date) (unknown) (unknown) breakfast and notice d her BG of >400 so he bolused some insulin through his (units unknown ) (unknown) (unknown) (no date) (unknown) (unknown) codeine [CODEINE] Al lergy Unknown Verified 05/27/22 13:06 (units unknown ) (unknown) (unknown) (no date) (unknown) (unknown) currently on an insu alisha drip and is asking for water and feels slightly hungry. (units unknown ) (unknown) (unknown) (no date) (unknown) (unknown) cyclobenzaprine 5 mg tablet 5 mg PO TID PRN muscle spasm #10 10/16/17 Rx (units unknown ) (unknown) (unknown) (no date) (unknown) (unknown) denies NV, SOB, abd pain, dysuria or diarrhea. (units unknown ) (unknown) (unknown) (no date) (unknown) (unknown) denies any issues wi th his insulin pump but says he noticed his roommates had (units unknown ) (unknown) (unknown) (no date) (unknown) (unknown) doxycycline [DOXYCYC LINE] Allergy Unknown Verified 05/27/22 13:06 (units unknown ) (unknown) (unknown) (no date) (unknown) (unknown) have DKA'. The CP avery sted a few hours then went away with treatment in the ED. He (units unknown ) (unknown) (unknown) (no date) (unknown) (unknown) insulin aspart Aller gy Unknown Rash at Verified 05/27/22 13:20 (units unknown ) (unknown) (unknown) (no date) (unknown) (unknown) insulin lispro 100 u nit/mL 55 unit SLIDE ##0 08/30/10 History (units unknown ) (unknown) (unknown) (no date) (unknown) (unknown) insulin pump. He the n began to feel worse with diaphoresis so came to the ED. He (units unknown ) (unknown) (unknown) (no date) (unknown) (unknown) meds. (units unknown ) (unknown) (unknown) (no date) (unknown) (unknown) of hospital time to treat DKA. (units unknown ) (unknown) (unknown) (no date) (unknown) (unknown) omeprazole [OMEPRAZO LE] Allergy Unknown Verified 05/27/22 13:06 (units unknown ) (unknown) (unknown) (no date) (unknown) (unknown) stated. (units unknown ) (unknown) (unknown) (no date) (unknown) (unknown) subcutaneous solutio n (Humalog (units unknown ) (unknown) (unknown) (no date) (unknown) (unknown) tabs (units unknown ) (unknown) (unknown) (no date) (unknown) (unknown) to stay above 45 deg kilo. He also notes he has had a toothache for the past (units unknown ) (unknown) (unknown) (no date) (unknown) (unknown) today; this time is exclusive of procedural time. (units unknown ) (unknown) (unknown) (no date) (unknown) (unknown) toothache for 1 week (units unknown ) (unknown) (unknown) (no date) (unknown) (unknown) turned down the frid ge temp so it was at 42 degrees and his insulin is supposed (units unknown ) (unknown) (unknown) (no date) (unknown) (unknown) week. Hasn't seen a dentist due to his social security check being late. He is (units unknown ) (unknown) (unknown) (no date) (unknown) (unknown) with 3 DKA episodes in the past 6 months who presents with DKA. Anion gap 26, (units unknown ) (unknown) Result panel 300 (unknown) (no date) (unknown) (unknown) (no value) (units unknown ) (unknown) (unknown) (no date) (unknown) (unknown) (past 8 hours): (units unknown ) (unknown) (unknown) (no date) (unknown) (unknown) -DKA protocol (units unknown ) (unknown) (unknown) (no date) (unknown) (unknown) -abx (units unknown ) (unknown) (unknown) (no date) (unknown) (unknown) -check cxs (units unknown ) (unknown) (unknown) (no date) (unknown) (unknown) -gi/dvt ppx (units unknown ) (unknown) (unknown) (no date) (unknown) (unknown) -ivf/insulin (units unknown ) (unknown) (unknown) (no date) (unknown) (unknown) -monitor ins/outs (units unknown ) (unknown) (unknown) (no date) (unknown) (unknown) -please call eICU if condition changes (units unknown ) (unknown) (unknown) (no date) (unknown) (unknown) -replace lytes (units unknown ) (unknown) (unknown) (no date) (unknown) (unknown) 05/27/22 05/27/22 05/27/22 (unit s unknown ) (unknown) (unknown) (no date) (unknown) (unknown) 05/27/22 13:50 (units unknown ) (unknown) (unknown) (no date) (unknown) (unknown) 05/27/22 16:50 (units unknown ) (unknown) (unknown) (no date) (unknown) (unknown) 05/27/22 2021 (units unknown ) (unknown) (unknown) (no date) (unknown) (unknown) 05/27/22 (units unknown ) (unknown) (unknown) (no date) (unknown) (unknown) 12:55 13:50 13:50 (units unknown ) (unknown) (unknown) (no date) (unknown) (unknown) 13:06 05/27/22 (units unknown ) (unknown) (unknown) (no date) (unknown) (unknown) 13:37 05/27/22 (units unknown ) (unknown) (unknown) (no date) (unknown) (unknown) 13:37 (units unknown ) (unknown) (unknown) (no date) (unknown) (unknown) 13:40 05/27/22 (units unknown ) (unknown) (unknown) (no date) (unknown) (unknown) 13:45 05/27/22 (units unknown ) (unknown) (unknown) (no date) (unknown) (unknown) 13:45 (units unknown ) (unknown) (unknown) (no date) (unknown) (unknown) 13:50 13:50 13:50 (units unknown ) (unknown) (unknown) (no date) (unknown) (unknown) 13:55 05/27/22 (units unknown ) (unknown) (unknown) (no date) (unknown) (unknown) 13:55 (units unknown ) (unknown) (unknown) (no date) (unknown) (unknown) 14:00 05/27/22 (units unknown ) (unknown) (unknown) (no date) (unknown) (unknown) 14:05 05/27/22 (units unknown ) (unknown) (unknown) (no date) (unknown) (unknown) 14:05 (units unknown ) (unknown) (unknown) (no date) (unknown) (unknown) 14:10 05/27/22 (units unknown ) (unknown) (unknown) (no date) (unknown) (unknown) 14:10 (units unknown ) (unknown) (unknown) (no date) (unknown) (unknown) 14:15 05/27/22 (units unknown ) (unknown) (unknown) (no date) (unknown) (unknown) 14:15 14:40 14:40 (units unknown ) (unknown) (unknown) (no date) (unknown) (unknown) 14:20 05/27/22 (units unknown ) (unknown) (unknown) (no date) (unknown) (unknown) 14:20 (units unknown ) (unknown) (unknown) (no date) (unknown) (unknown) 14:28 05/27/22 (units unknown ) (unknown) (unknown) (no date) (unknown) (unknown) 14:28 (units unknown ) (unknown) (unknown) (no date) (unknown) (unknown) 14:30 05/27/22 (units unknown ) (unknown) (unknown) (no date) (unknown) (unknown) 14:41 05/27/22 (units unknown ) (unknown) (unknown) (no date) (unknown) (unknown) 14:41 (units unknown ) (unknown) (unknown) (no date) (unknown) (unknown) 14:45 05/27/22 (units unknown ) (unknown) (unknown) (no date) (unknown) (unknown) 15:00 05/27/22 (units unknown ) (unknown) (unknown) (no date) (unknown) (unknown) 15:00 (units unknown ) (unknown) (unknown) (no date) (unknown) (unknown) 15:12 16:28 16:50 (units unknown ) (unknown) (unknown) (no date) (unknown) (unknown) 15:30 05/27/22 (units unknown ) (unknown) (unknown) (no date) (unknown) (unknown) 16:00 (units unknown ) (unknown) (unknown) (no date) (unknown) (unknown) 16:30 05/27/22 (units unknown ) (unknown) (unknown) (no date) (unknown) (unknown) 17:00 05/27/22 (units unknown ) (unknown) (unknown) (no date) (unknown) (unknown) 17:30 (units unknown ) (unknown) (unknown) (no date) (unknown) (unknown) 17:53 05/27/22 (units unknown ) (unknown) (unknown) (no date) (unknown) (unknown) 18:00 05/27/22 (units unknown ) (unknown) (unknown) (no date) (unknown) (unknown) 18:00 (units unknown ) (unknown) (unknown) (no date) (unknown) (unknown) 18:15 05/27/22 (units unknown ) (unknown) (unknown) (no date) (unknown) (unknown) 18:15 (units unknown ) (unknown) (unknown) (no date) (unknown) (unknown) 18:30 05/27/22 (units unknown ) (unknown) (unknown) (no date) (unknown) (unknown) 18:45 05/27/22 (units unknown ) (unknown) (unknown) (no date) (unknown) (unknown) 18:45 (units unknown ) (unknown) (unknown) (no date) (unknown) (unknown) 19:00 05/27/22 (units unknown ) (unknown) (unknown) (no date) (unknown) (unknown) 19:09 05/27/22 (units unknown ) (unknown) (unknown) (no date) (unknown) (unknown) 19:09 (units unknown ) (unknown) (unknown) (no date) (unknown) (unknown) 19:15 05/27/22 (units unknown ) (unknown) (unknown) (no date) (unknown) (unknown) 19:15 (units unknown ) (unknown) (unknown) (no date) (unknown) (unknown) 19:30 05/27/22 (units unknown ) (unknown) (unknown) (no date) (unknown) (unknown) 19:30 (units unknown ) (unknown) (unknown) (no date) (unknown) (unknown) 19:43 (units unknown ) (unknown) (unknown) (no date) (unknown) (unknown) 56 year old male wit h PMHx of DM (units unknown ) (unknown) (unknown) (no date) (unknown) (unknown) [id number] (units unknown ) (unknown) (unknown) (no date) (unknown) (unknown) ABG Base Excess -15.0 L (units unknown ) (unknown) (unknown) (no date) (unknown) (unknown) ABG Base Excess (units unknown ) (unknown) (unknown) (no date) (unknown) (unknown) ABG HCO3 12 L (units unknown ) (unknown) (unknown) (no date) (unknown) (unknown) ABG HCO3 (units unknown ) (unknown) (unknown) (no date) (unknown) (unknown) ABG O2 Saturation 97 (units unknown ) (unknown) (unknown) (no date) (unknown) (unknown) ABG O2 Saturation (units unknown ) (unknown) (unknown) (no date) (unknown) (unknown) ABG Total CO2 12 L (units unknown ) (unknown) (unknown) (no date) (unknown) (unknown) ABG Total CO2 (units unknown ) (unknown) (unknown) (no date) (unknown) (unknown) ABG pCO2 24.9 L* (units unknown ) (unknown) (unknown) (no date) (unknown) (unknown) ABG pCO2 (units unknown ) (unknown) (unknown) (no date) (unknown) (unknown) ABG pH 7.27 L* (units unknown ) (unknown) (unknown) (no date) (unknown) (unknown) ABG pH (units unknown ) (unknown) (unknown) (no date) (unknown) (unknown) ABG pO2 99 (units unknown ) (unknown) (unknown) (no date) (unknown) (unknown) ABG pO2 (units unknown ) (unknown) (unknown) (no date) (unknown) (unknown) AH 25 (units unknown ) (unknown) (unknown) (no date) (unknown) (unknown) ALT 40 (units unknown ) (unknown) (unknown) (no date) (unknown) (unknown) ALT 44 (units unknown ) (unknown) (unknown) (no date) (unknown) (unknown) ALT (units unknown ) (unknown) (unknown) (no date) (unknown) (unknown) AST 27 (units unknown ) (unknown) (unknown) (no date) (unknown) (unknown) AST 30 (units unknown ) (unknown) (unknown) (no date) (unknown) (unknown) AST (units unknown ) (unknown) (unknown) (no date) (unknown) (unknown) Age/Sex: 56 / M (units unknown ) (unknown) (unknown) (no date) (unknown) (unknown) Albumin 4.1 (units unknown ) (unknown) (unknown) (no date) (unknown) (unknown) Albumin 4.7 (units unknown ) (unknown) (unknown) (no date) (unknown) (unknown) Albumin (units unknown ) (unknown) (unknown) (no date) (unknown) (unknown) Albumin/Globulin Ratio 1.5 (unit s unknown ) (unknown) (unknown) (no date) (unknown) (unknown) Albumin/Globulin Ratio (units unknown ) (unknown) (unknown) (no date) (unknown) (unknown) Alkaline Phosphatase 104 (units unknown ) (unknown) (unknown) (no date) (unknown) (unknown) Alkaline Phosphatase 79 (units unknown ) (unknown) (unknown) (no date) (unknown) (unknown) Alkaline Phosphatase (units unknown ) (unknown) (unknown) (no date) (unknown) (unknown) Amorphous Sediment 1 (units unknown ) (unknown) (unknown) (no date) (unknown) (unknown) Amorphous Sediment (units unknown ) (unknown) (unknown) (no date) (unknown) (unknown) Assessment + Plan narrative: (units unknown ) (unknown) (unknown) (no date) (unknown) (unknown) Assessment + Plan (units unknown ) (unknown) (unknown) (no date) (unknown) (unknown) BUN 23 H (units unknown ) (unknown) (unknown) (no date) (unknown) (unknown) BUN 24 H (units unknown ) (unknown) (unknown) (no date) (unknown) (unknown) BUN (units unknown ) (unknown) (unknown) (no date) (unknown) (unknown) BUN/Creatinine Ratio 20.0 (units unknown ) (unknown) (unknown) (no date) (unknown) (unknown) BUN/Creatinine Ratio 21.4 (units unknown ) (unknown) (unknown) (no date) (unknown) (unknown) BUN/Creatinine Ratio (units unknown ) (unknown) (unknown) (no date) (unknown) (unknown) Baso # (Auto) 100 (units unknown ) (unknown) (unknown) (no date) (unknown) (unknown) Baso # (Auto) (units unknown ) (unknown) (unknown) (no date) (unknown) (unknown) Baso % (Auto) 0.5 (units unknown ) (unknown) (unknown) (no date) (unknown) (unknown) Baso % (Auto) (units unknown ) (unknown) (unknown) (no date) (unknown) (unknown) Blood Pressure 119/65 (units unknown ) (unknown) (unknown) (no date) (unknown) (unknown) Blood Pressure 120/5 8 L 117/56 L (units unknown ) (unknown) (unknown) (no date) (unknown) (unknown) Blood Pressure 121/58 L (units unknown ) (unknown) (unknown) (no date) (unknown) (unknown) Blood Pressure 123/62 (units unknown ) (unknown) (unknown) (no date) (unknown) (unknown) Blood Pressure 125/5 8 L 119/59 L (units unknown ) (unknown) (unknown) (no date) (unknown) (unknown) Blood Pressure 127/60 (units unknown ) (unknown) (unknown) (no date) (unknown) (unknown) Blood Pressure 128/58 L (units unknown ) (unknown) (unknown) (no date) (unknown) (unknown) Blood Pressure 131/62 (units unknown ) (unknown) (unknown) (no date) (unknown) (unknown) Blood Pressure 132/68 (units unknown ) (unknown) (unknown) (no date) (unknown) (unknown) Blood Pressure 133/6 1 152/61 H (units unknown ) (unknown) (unknown) (no date) (unknown) (unknown) Blood Pressure 139/6 3 141/97 H (units unknown ) (unknown) (unknown) (no date) (unknown) (unknown) Blood Pressure 140/6 1 108/53 L (units unknown ) (unknown) (unknown) (no date) (unknown) (unknown) Blood Pressure 142/87 H (units unknown ) (unknown) (unknown) (no date) (unknown) (unknown) Blood Pressure 144/5 8 H 148/67 H (units unknown ) (unknown) (unknown) (no date) (unknown) (unknown) Blood Pressure 148/6 9 H 129/63 (units unknown ) (unknown) (unknown) (no date) (unknown) (unknown) Blood Pressure (units unknown ) (unknown) (unknown) (no date) (unknown) (unknown) CK-MB (CK-2) Rel Index TNP (unit s unknown ) (unknown) (unknown) (no date) (unknown) (unknown) CK-MB (CK-2) Rel Index (units unknown ) (unknown) (unknown) (no date) (unknown) (unknown) CK-MB (CK-2) TNP (units unknown ) (unknown) (unknown) (no date) (unknown) (unknown) CK-MB (CK-2) (units unknown ) (unknown) (unknown) (no date) (unknown) (unknown) CONT SRIDEVI Infusion (units unknown ) (unknown) (unknown) (no date) (unknown) (unknown) Calcium 8.8 (units unknown ) (unknown) (unknown) (no date) (unknown) (unknown) Calcium 9.7 (units unknown ) (unknown) (unknown) (no date) (unknown) (unknown) Calcium (units unknown ) (unknown) (unknown) (no date) (unknown) (unknown) Carbon Dioxide 12 L (units unknown ) (unknown) (unknown) (no date) (unknown) (unknown) Carbon Dioxide 8 L* (units unknown ) (unknown) (unknown) (no date) (unknown) (unknown) Carbon Dioxide (units unknown ) (unknown) (unknown) (no date) (unknown) (unknown) Chief complaint: nan st pain/ n+v/ high glucose (units unknown ) (unknown) (unknown) (no date) (unknown) (unknown) Chloride 103 (units unknown ) (unknown) (unknown) (no date) (unknown) (unknown) Chloride 94 L (units unknown ) (unknown) (unknown) (no date) (unknown) (unknown) Chloride (units unknown ) (unknown) (unknown) (no date) (unknown) (unknown) Consent obtained for tele-rn anesthetist care: Yes (units unknown ) (unknown) (unknown) (no date) (unknown) (unknown) Consult details (units unknown ) (unknown) (unknown) (no date) (unknown) (unknown) Creatinine 1.12 (units unknown ) (unknown) (unknown) (no date) (unknown) (unknown) Creatinine 1.15 (units unknown ) (unknown) (unknown) (no date) (unknown) (unknown) Creatinine (units unknown ) (unknown) (unknown) (no date) (unknown) (unknown) Critical Care time: (units unknown ) (unknown) (unknown) (no date) (unknown) (unknown) Current Medications (units unknown ) (unknown) (unknown) (no date) (unknown) (unknown) DKA (units unknown ) (unknown) (unknown) (no date) (unknown) (unknown) : 1965 Acct:[id number] (units unknown ) (unknown) (unknown) (no date) (unknown) (unknown) Date of Service: 05/27/22 (units unknown ) (unknown) (unknown) (no date) (unknown) (unknown) Eos # (Auto) 0 (units unknown ) (unknown) (unknown) (no date) (unknown) (unknown) Eos # (Auto) (units unknown ) (unknown) (unknown) (no date) (unknown) (unknown) Eos % (Auto) 0.1 L (units unknown ) (unknown) (unknown) (no date) (unknown) (unknown) Eos % (Auto) (units unknown ) (unknown) (unknown) (no date) (unknown) (unknown) Estimated GFR > 60 (units unknown ) (unknown) (unknown) (no date) (unknown) (unknown) Estimated GFR (units unknown ) (unknown) (unknown) (no date) (unknown) (unknown) Ethyl Alcohol < 10 (units unknown ) (unknown) (unknown) (no date) (unknown) (unknown) Ethyl Alcohol (units unknown ) (unknown) (unknown) (no date) (unknown) (unknown) Exam (units unknown ) (unknown) (unknown) (no date) (unknown) (unknown) FiO2 21 (units unknown ) (unknown) (unknown) (no date) (unknown) (unknown) FiO2 (units unknown ) (unknown) (unknown) (no date) (unknown) (unknown) Generic Name Dose [place] Start Last Admin (units unknown ) (unknown) (unknown) (no date) (unknown) (unknown) Globulin 2.8 (units unknown ) (unknown) (unknown) (no date) (unknown) (unknown) Globulin 3.1 (units unknown ) (unknown) (unknown) (no date) (unknown) (unknown) Globulin (units unknown ) (unknown) (unknown) (no date) (unknown) (unknown) Glucose 532 H* (units unknown ) (unknown) (unknown) (no date) (unknown) (unknown) Glucose 731 H* (units unknown ) (unknown) (unknown) (no date) (unknown) (unknown) Glucose (units unknown ) (unknown) (unknown) (no date) (unknown) (unknown) Hct 44.7 (units unknown ) (unknown) (unknown) (no date) (unknown) (unknown) Hct (units unknown ) (unknown) (unknown) (no date) (unknown) (unknown) Hemoglobin A1c 9.5 H (units unknown ) (unknown) (unknown) (no date) (unknown) (unknown) Hemoglobin A1c (units unknown ) (unknown) (unknown) (no date) (unknown) (unknown) Hgb 14.9 (units unknown ) (unknown) (unknown) (no date) (unknown) (unknown) Hgb (units unknown ) (unknown) (unknown) (no date) (unknown) (unknown) History of Present Illness (unit s unknown ) (unknown) (unknown) (no date) (unknown) (unknown) Home Medications (units unknown ) (unknown) (unknown) (no date) (unknown) (unknown) I spent a total of [ ] minutes of critical care time on this patient's care (units unknown ) (unknown) (unknown) (no date) (unknown) (unknown) IF [place]ER[place] ACTIVATED, patient seen via real-time interactive audiovisual (units unknown ) (unknown) (unknown) (no date) (unknown) (unknown) INSULIN DRIP PREMIX 100 unit in 100 mls @ 6 mls/hr 05/27/22 15:00 05/27/22 (units unknown ) (unknown) (unknown) (no date) (unknown) (unknown) Instructions .Route .COMPLEX ##0 08/30/10 [History Confirmed 05/27/22] (units unknown ) (unknown) (unknown) (no date) (unknown) (unknown) Insulin dependent di abetes mellitus (units unknown ) (unknown) (unknown) (no date) (unknown) (unknown) [address] [address] (units unknown ) (unknown) (unknown) (no date) (unknown) (unknown) Ketones 6.46 H (units unknown ) (unknown) (unknown) (no date) (unknown) (unknown) Ketones (units unknown ) (unknown) (unknown) (no date) (unknown) (unknown) Laboratory Results - last 24 hr (units unknown ) (unknown) (unknown) (no date) (unknown) (unknown) Labs (units unknown ) (unknown) (unknown) (no date) (unknown) (unknown) Labs: (units unknown ) (unknown) (unknown) (no date) (unknown) (unknown) Lipase 62 (units unknown ) (unknown) (unknown) (no date) (unknown) (unknown) Lipase (units unknown ) (unknown) (unknown) (no date) (unknown) (unknown) Lymph # (Auto) 700 L (units unknown ) (unknown) (unknown) (no date) (unknown) (unknown) Lymph # (Auto) (units unknown ) (unknown) (unknown) (no date) (unknown) (unknown) Lymph % (Auto) 6.4 L (units unknown ) (unknown) (unknown) (no date) (unknown) (unknown) Lymph % (Auto) (units unknown ) (unknown) (unknown) (no date) (unknown) (unknown) MCH 29.7 (units unknown ) (unknown) (unknown) (no date) (unknown) (unknown) MCH (units unknown ) (unknown) (unknown) (no date) (unknown) (unknown) MCHC 33.3 (units unknown ) (unknown) (unknown) (no date) (unknown) (unknown) MCHC (units unknown ) (unknown) (unknown) (no date) (unknown) (unknown) MCV 89.1 (units unknown ) (unknown) (unknown) (no date) (unknown) (unknown) MCV (units unknown ) (unknown) (unknown) (no date) (unknown) (unknown) Magnesium 1.8 (units unknown ) (unknown) (unknown) (no date) (unknown) (unknown) Magnesium (units unknown ) (unknown) (unknown) (no date) (unknown) (unknown) Medical History (Rev iewed 05/27/22 @ 19:26 by Dalton Graff DO) (units unknown ) (unknown) (unknown) (no date) (unknown) (unknown) Medications: (units unknown ) (unknown) (unknown) (no date) (unknown) (unknown) [place] # (Auto) 300 (units unknown ) (unknown) (unknown) (no date) (unknown) (unknown) [place] # (Auto) (units unknown ) (unknown) (unknown) (no date) (unknown) (unknown) [place] % (Auto) 2.7 L (units unknown ) (unknown) (unknown) (no date) (unknown) (unknown) [place] % (Auto) (units unknown ) (unknown) (unknown) (no date) (unknown) (unknown) Myxredlin Drip Premi x IV 12 mls/hr (units unknown ) (unknown) (unknown) (no date) (unknown) (unknown) NOW PRN Administration (units unknown ) (unknown) (unknown) (no date) (unknown) (unknown) Nausea And Vomiting (units unknown ) (unknown) (unknown) (no date) (unknown) (unknown) Neut # (Auto) [address]001 H (units unknown ) (unknown) (unknown) (no date) (unknown) (unknown) Neut # (Auto) (units unknown ) (unknown) (unknown) (no date) (unknown) (unknown) Neut % (Auto) 90.3 H (units unknown ) (unknown) (unknown) (no date) (unknown) (unknown) Neut % (Auto) (units unknown ) (unknown) (unknown) (no date) (unknown) (unknown) Normal Saline 0.9% I V Infused (units unknown ) (unknown) (unknown) (no date) (unknown) (unknown) Objective (units unknown ) (unknown) (unknown) (no date) (unknown) (unknown) Ondansetron 4 Mg/2 M l Inj IV 4 mg (units unknown ) (unknown) (unknown) (no date) (unknown) (unknown) Ondansetron HCl 4 mg 05/27/22 13:09 05/27/22 14:06 (units unknown ) (unknown) (unknown) (no date) (unknown) (unknown) Other participants/r oles: Dr. Coles (units unknown ) (unknown) (unknown) (no date) (unknown) (unknown) Oxygen Delivery Meth od Room Air (units unknown ) (unknown) (unknown) (no date) (unknown) (unknown) Oxygen Delivery Method (units unknown ) (unknown) (unknown) (no date) (unknown) (unknown) PFSH (units unknown ) (unknown) (unknown) (no date) (unknown) (unknown) Patient Location: ICU (units unknown ) (unknown) (unknown) (no date) (unknown) (unknown) Patient: Avinash Meredith MR#: [id number] (units unknown ) (unknown) (unknown) (no date) (unknown) (unknown) Phosphorus 3.6 (units unknown ) (unknown) (unknown) (no date) (unknown) (unknown) Phosphorus (units unknown ) (unknown) (unknown) (no date) (unknown) (unknown) Plt Count 243 (units unknown ) (unknown) (unknown) (no date) (unknown) (unknown) Plt Count (units unknown ) (unknown) (unknown) (no date) (unknown) (unknown) Potassium 4.4 (units unknown ) (unknown) (unknown) (no date) (unknown) (unknown) Potassium 5.0 (units unknown ) (unknown) (unknown) (no date) (unknown) (unknown) Potassium (units unknown ) (unknown) (unknown) (no date) (unknown) (unknown) Protocol (units unknown ) (unknown) (unknown) (no date) (unknown) (unknown) Provider location ([place]): [place] (units unknown ) (unknown) (unknown) (no date) (unknown) (unknown) Provider: Marcell Mobley (units unknown ) (unknown) (unknown) (no date) (unknown) (unknown) Pulse Oximetry 100 100 99 (units unknown ) (unknown) (unknown) (no date) (unknown) (unknown) Pulse Oximetry 100 100 (units unknown ) (unknown) (unknown) (no date) (unknown) (unknown) Pulse Oximetry 100 (units unknown ) (unknown) (unknown) (no date) (unknown) (unknown) Pulse Oximetry 97 98 (units unknown ) (unknown) (unknown) (no date) (unknown) (unknown) Pulse Oximetry 98 100 (units unknown ) (unknown) (unknown) (no date) (unknown) (unknown) Pulse Oximetry 98 (units unknown ) (unknown) (unknown) (no date) (unknown) (unknown) Pulse Oximetry 99 100 (units unknown ) (unknown) (unknown) (no date) (unknown) (unknown) Pulse Oximetry 99 99 (units unknown ) (unknown) (unknown) (no date) (unknown) (unknown) Pulse Oximetry 99 (units unknown ) (unknown) (unknown) (no date) (unknown) (unknown) Pulse Oximetry (units unknown ) (unknown) (unknown) (no date) (unknown) (unknown) Pulse Rate 70 (units unknown ) (unknown) (unknown) (no date) (unknown) (unknown) Pulse Rate 73 77 (units unknown ) (unknown) (unknown) (no date) (unknown) (unknown) Pulse Rate 74 76 (units unknown ) (unknown) (unknown) (no date) (unknown) (unknown) Pulse Rate 74 (units unknown ) (unknown) (unknown) (no date) (unknown) (unknown) Pulse Rate 75 75 (units unknown ) (unknown) (unknown) (no date) (unknown) (unknown) Pulse Rate 75 (units unknown ) (unknown) (unknown) (no date) (unknown) (unknown) Pulse Rate 76 76 (units unknown ) (unknown) (unknown) (no date) (unknown) (unknown) Pulse Rate 76 77 (units unknown ) (unknown) (unknown) (no date) (unknown) (unknown) Pulse Rate 77 (units unknown ) (unknown) (unknown) (no date) (unknown) (unknown) Pulse Rate 78 76 (units unknown ) (unknown) (unknown) (no date) (unknown) (unknown) Pulse Rate 78 78 (units unknown ) (unknown) (unknown) (no date) (unknown) (unknown) Pulse Rate 78 (units unknown ) (unknown) (unknown) (no date) (unknown) (unknown) Pulse Rate 79 (units unknown ) (unknown) (unknown) (no date) (unknown) (unknown) Pulse Rate 81 74 (units unknown ) (unknown) (unknown) (no date) (unknown) (unknown) Pulse Rate 83 76 72 (units unknown ) (unknown) (unknown) (no date) (unknown) (unknown) Pulse Rate 92 H 80 77 (units unknown ) (unknown) (unknown) (no date) (unknown) (unknown) RBC 5.02 (units unknown ) (unknown) (unknown) (no date) (unknown) (unknown) RBC (units unknown ) (unknown) (unknown) (no date) (unknown) (unknown) RDW 13.3 (units unknown ) (unknown) (unknown) (no date) (unknown) (unknown) RDW (units unknown ) (unknown) (unknown) (no date) (unknown) (unknown) Respiratory Rate 18 19 18 (units unknown ) (unknown) (unknown) (no date) (unknown) (unknown) Respiratory Rate 20 (units unknown ) (unknown) (unknown) (no date) (unknown) (unknown) Respiratory Rate 21 (units unknown ) (unknown) (unknown) (no date) (unknown) (unknown) Respiratory Rate 22 15 (units unknown ) (unknown) (unknown) (no date) (unknown) (unknown) Respiratory Rate 22 17 (units unknown ) (unknown) (unknown) (no date) (unknown) (unknown) Respiratory Rate 23 18 (units unknown ) (unknown) (unknown) (no date) (unknown) (unknown) Respiratory Rate 25 H 20 (units unknown ) (unknown) (unknown) (no date) (unknown) (unknown) Respiratory Rate 27 H 28 H (unit s unknown ) (unknown) (unknown) (no date) (unknown) (unknown) Respiratory Rate 28 H 38 H (unit s unknown ) (unknown) (unknown) (no date) (unknown) (unknown) Respiratory Rate 28 H (units unknown ) (unknown) (unknown) (no date) (unknown) (unknown) Respiratory Rate 29 H (units unknown ) (unknown) (unknown) (no date) (unknown) (unknown) Respiratory Rate 33 H (units unknown ) (unknown) (unknown) (no date) (unknown) (unknown) Respiratory Rate 41 H 19 (units unknown ) (unknown) (unknown) (no date) (unknown) (unknown) Respiratory Rate 41 H 28 H 27 H (units unknown ) (unknown) (unknown) (no date) (unknown) (unknown) Respiratory Rate 44 H 27 H (unit s unknown ) (unknown) (unknown) (no date) (unknown) (unknown) SARS-CoV-2 (PCR) Negative (units unknown ) (unknown) (unknown) (no date) (unknown) (unknown) SARS-CoV-2 (PCR) (units unknown ) (unknown) (unknown) (no date) (unknown) (unknown) Signed By:<Keven desir signed by Marcell Mobley> (units unknown ) (unknown) (unknown) (no date) (unknown) (unknown) Smoking Status: Form er smoker (units unknown ) (unknown) (unknown) (no date) (unknown) (unknown) Social History (Revi ewed 05/27/22 @ 19:26 by Dalton Graff DO) (units unknown ) (unknown) (unknown) (no date) (unknown) (unknown) Sodium 132 L (units unknown ) (unknown) (unknown) (no date) (unknown) (unknown) Sodium 136 L (units unknown ) (unknown) (unknown) (no date) (unknown) (unknown) Sodium Chloride 1,00 0 mls @ 250 mls/hr 05/27/22 15:00 05/27/22 18:49 (units unknown ) (unknown) (unknown) (no date) (unknown) (unknown) Sodium (units unknown ) (unknown) (unknown) (no date) (unknown) (unknown) TITRATE SRIDEVI 12 mls/hr (units unknown ) (unknown) (unknown) (no date) (unknown) (unknown) TSH 2.80 (units unknown ) (unknown) (unknown) (no date) (unknown) (unknown) TSH (units unknown ) (unknown) (unknown) (no date) (unknown) (unknown) Teleintensivist Cons ult Note (units unknown ) (unknown) (unknown) (no date) (unknown) (unknown) Temperature 97.5 F L (units unknown ) (unknown) (unknown) (no date) (unknown) (unknown) Temperature (units unknown ) (unknown) (unknown) (no date) (unknown) (unknown) Time Spent With Patient (units unknown ) (unknown) (unknown) (no date) (unknown) (unknown) Titration (units unknown ) (unknown) (unknown) (no date) (unknown) (unknown) Total Bilirubin 2.2 H (units unknown ) (unknown) (unknown) (no date) (unknown) (unknown) Total Bilirubin 2.7 H (units unknown ) (unknown) (unknown) (no date) (unknown) (unknown) Total Bilirubin (units unknown ) (unknown) (unknown) (no date) (unknown) (unknown) Total Creatine Kinase 57 (units unknown ) (unknown) (unknown) (no date) (unknown) (unknown) Total Creatine Kinase (units unknown ) (unknown) (unknown) (no date) (unknown) (unknown) Total Protein 6.9 (units unknown ) (unknown) (unknown) (no date) (unknown) (unknown) Total Protein 7.8 (units unknown ) (unknown) (unknown) (no date) (unknown) (unknown) Total Protein (units unknown ) (unknown) (unknown) (no date) (unknown) (unknown) Trade Name Freq PRN Reason Stop Dose Admin (units unknown ) (unknown) (unknown) (no date) (unknown) (unknown) Troponin I < 0.012 (units unknown ) (unknown) (unknown) (no date) (unknown) (unknown) Troponin I (units unknown ) (unknown) (unknown) (no date) (unknown) (unknown) U Benzodiazepines Sc rn Negative (units unknown ) (unknown) (unknown) (no date) (unknown) (unknown) U Benzodiazepines Scrn (units unknown ) (unknown) (unknown) (no date) (unknown) (unknown) U Marijuana (THC) Sc reen Positive H (units unknown ) (unknown) (unknown) (no date) (unknown) (unknown) U Marijuana (THC) Screen (units unknown ) (unknown) (unknown) (no date) (unknown) (unknown) U Methamphetamines S crn Negative (units unknown ) (unknown) (unknown) (no date) (unknown) (unknown) U Methamphetamines Scrn (units unknown ) (unknown) (unknown) (no date) (unknown) (unknown) U Opiates 300ng/mL c ut Negative (units unknown ) (unknown) (unknown) (no date) (unknown) (unknown) U Opiates 300ng/mL cut (units unknown ) (unknown) (unknown) (no date) (unknown) (unknown) U Tricyclic Antidepr ess Negative (units unknown ) (unknown) (unknown) (no date) (unknown) (unknown) U Tricyclic Antidepress (units unknown ) (unknown) (unknown) (no date) (unknown) (unknown) UA +ve for ketones (units unknown ) (unknown) (unknown) (no date) (unknown) (unknown) Ur Amphetamines Scre en Negative (units unknown ) (unknown) (unknown) (no date) (unknown) (unknown) Ur Amphetamines Screen (units unknown ) (unknown) (unknown) (no date) (unknown) (unknown) Ur Barbiturates Scre en Negative (units unknown ) (unknown) (unknown) (no date) (unknown) (unknown) Ur Barbiturates Screen (units unknown ) (unknown) (unknown) (no date) (unknown) (unknown) Ur Culture Indicated ? Cult not indicated (units unknown ) (unknown) (unknown) (no date) (unknown) (unknown) Ur Culture Indicated? (units unknown ) (unknown) (unknown) (no date) (unknown) (unknown) Ur Leukocyte [place] e Negative (units unknown ) (unknown) (unknown) (no date) (unknown) (unknown) Ur Leukocyte Esterase (units unknown ) (unknown) (unknown) (no date) (unknown) (unknown) Ur MDMA Scrn ([place] y) Negative (units unknown ) (unknown) (unknown) (no date) (unknown) (unknown) Ur MDMA Scrn ([place]) (units unknown ) (unknown) (unknown) (no date) (unknown) (unknown) Ur Oxycodone Screen Negative (units unknown ) (unknown) (unknown) (no date) (unknown) (unknown) Ur Oxycodone Screen (units unknown ) (unknown) (unknown) (no date) (unknown) (unknown) Ur Phencyclidine Scr n Negative (units unknown ) (unknown) (unknown) (no date) (unknown) (unknown) Ur Phencyclidine Scrn (units unknown ) (unknown) (unknown) (no date) (unknown) (unknown) Ur Specific [place] 1.010 (units unknown ) (unknown) (unknown) (no date) (unknown) (unknown) Ur Specific [place] (units unknown ) (unknown) (unknown) (no date) (unknown) (unknown) Urine Appearance Clear (units unknown ) (unknown) (unknown) (no date) (unknown) (unknown) Urine Appearance (units unknown ) (unknown) (unknown) (no date) (unknown) (unknown) Urine Bacteria None seen (units unknown ) (unknown) (unknown) (no date) (unknown) (unknown) Urine Bacteria (units unknown ) (unknown) (unknown) (no date) (unknown) (unknown) Urine Bilirubin Negative (units unknown ) (unknown) (unknown) (no date) (unknown) (unknown) Urine Bilirubin (units unknown ) (unknown) (unknown) (no date) (unknown) (unknown) Urine Cocaine Screen Negative (units unknown ) (unknown) (unknown) (no date) (unknown) (unknown) Urine Cocaine Screen (units unknown ) (unknown) (unknown) (no date) (unknown) (unknown) Urine Color Yellow (units unknown ) (unknown) (unknown) (no date) (unknown) (unknown) Urine Color (units unknown ) (unknown) (unknown) (no date) (unknown) (unknown) Urine Glucose (UA) 3+ H (units unknown ) (unknown) (unknown) (no date) (unknown) (unknown) Urine Glucose (UA) (units unknown ) (unknown) (unknown) (no date) (unknown) (unknown) Urine Ketones 3+ H (units unknown ) (unknown) (unknown) (no date) (unknown) (unknown) Urine Ketones (units unknown ) (unknown) (unknown) (no date) (unknown) (unknown) Urine Methadone Scre en Negative (units unknown ) (unknown) (unknown) (no date) (unknown) (unknown) Urine Methadone Screen (units unknown ) (unknown) (unknown) (no date) (unknown) (unknown) Urine Nitrate Negative (units unknown ) (unknown) (unknown) (no date) (unknown) (unknown) Urine Nitrate (units unknown ) (unknown) (unknown) (no date) (unknown) (unknown) Urine Occult Blood Negative (units unknown ) (unknown) (unknown) (no date) (unknown) (unknown) Urine Occult Blood (units unknown ) (unknown) (unknown) (no date) (unknown) (unknown) Urine Protein Negative (units unknown ) (unknown) (unknown) (no date) (unknown) (unknown) Urine Protein (units unknown ) (unknown) (unknown) (no date) (unknown) (unknown) Urine RBC None seen (units unknown ) (unknown) (unknown) (no date) (unknown) (unknown) Urine RBC (units unknown ) (unknown) (unknown) (no date) (unknown) (unknown) Urine Urobilinogen 0.2 (units unknown ) (unknown) (unknown) (no date) (unknown) (unknown) Urine Urobilinogen (units unknown ) (unknown) (unknown) (no date) (unknown) (unknown) Urine WBC None seen (units unknown ) (unknown) (unknown) (no date) (unknown) (unknown) Urine WBC (units unknown ) (unknown) (unknown) (no date) (unknown) (unknown) Urine pH 6.0 (units unknown ) (unknown) (unknown) (no date) (unknown) (unknown) Urine pH (units unknown ) (unknown) (unknown) (no date) (unknown) (unknown) VBG Base Excess -11.0 L (units unknown ) (unknown) (unknown) (no date) (unknown) (unknown) VBG Base Excess (units unknown ) (unknown) (unknown) (no date) (unknown) (unknown) VBG HCO3 15 L (units unknown ) (unknown) (unknown) (no date) (unknown) (unknown) VBG HCO3 (units unknown ) (unknown) (unknown) (no date) (unknown) (unknown) VBG O2 Saturation 46 L (units unknown ) (unknown) (unknown) (no date) (unknown) (unknown) VBG O2 Saturation (units unknown ) (unknown) (unknown) (no date) (unknown) (unknown) VBG Total CO2 16 L (units unknown ) (unknown) (unknown) (no date) (unknown) (unknown) VBG Total CO2 (units unknown ) (unknown) (unknown) (no date) (unknown) (unknown) VBG pCO2 26.7 L (units unknown ) (unknown) (unknown) (no date) (unknown) (unknown) VBG pCO2 (units unknown ) (unknown) (unknown) (no date) (unknown) (unknown) VBG pH 7.35 (units unknown ) (unknown) (unknown) (no date) (unknown) (unknown) VBG pH (units unknown ) (unknown) (unknown) (no date) (unknown) (unknown) VBG pO2 26 L (units unknown ) (unknown) (unknown) (no date) (unknown) (unknown) VBG pO2 (units unknown ) (unknown) (unknown) (no date) (unknown) (unknown) Visit Medications (administered) (units unknown ) (unknown) (unknown) (no date) (unknown) (unknown) Vital Signs (units unknown ) (unknown) (unknown) (no date) (unknown) (unknown) WBC 11.2 H (units unknown ) (unknown) (unknown) (no date) (unknown) (unknown) WBC (units unknown ) (unknown) (unknown) (no date) (unknown) (unknown) [Embedded Image Not Available] (units unknown ) (unknown) (unknown) (no date) (unknown) (unknown) [History Confirmed 05/27/22] (units unknown ) (unknown) (unknown) (no date) (unknown) (unknown) admitted to ICU for (units unknown ) (unknown) (unknown) (no date) (unknown) (unknown) alcohol intake: current (units unknown ) (unknown) (unknown) (no date) (unknown) (unknown) atorvastatin 40 mg t ablet 40 mg PO BEDTIME 05/27/22 [History Confirmed 05/27/22] (units unknown ) (unknown) (unknown) (no date) (unknown) (unknown) cased discussed with bedside nurse and Dr. Coles (units unknown ) (unknown) (unknown) (no date) (unknown) (unknown) chart/labs/imaging reviewed (units unknown ) (unknown) (unknown) (no date) (unknown) (unknown) communication: [place] a activated (units unknown ) (unknown) (unknown) (no date) (unknown) (unknown) cxr -ve (units unknown ) (unknown) (unknown) (no date) (unknown) (unknown) duloxetine 30 mg capsule,delayed release sprinkle 30 mg PO DAILY 05/27/22 (units unknown ) (unknown) (unknown) (no date) (unknown) (unknown) glucose 700 (units unknown ) (unknown) (unknown) (no date) (unknown) (unknown) household members: spouse (units unknown ) (unknown) (unknown) (no date) (unknown) (unknown) insulin lispro 100 u nit/mL subcutaneous solution (Humalog U-100 Insulin) See Rx (units unknown ) (unknown) (unknown) (no date) (unknown) (unknown) mirtazapine 45 mg ta blet 45 mg PO BEDTIME 05/27/22 [History Confirmed 05/27/22] (units unknown ) (unknown) (unknown) (no date) (unknown) (unknown) pH 7. (units unknown ) (unknown) (unknown) (no date) (unknown) (unknown) patient seen in room (units unknown ) (unknown) (unknown) (no date) (unknown) (unknown) sepsis without shock 2/2 tooth infection vs other (units unknown ) (unknown) (unknown) (no date) (unknown) (unknown) substance use type: does not use (units unknown ) (unknown) (unknown) (no date) (unknown) (unknown) suggest (units unknown ) (unknown) (unknown) (no date) (unknown) (unknown) today; this time is exclusive of procedural time. (units unknown ) (unknown) (unknown) (no date) (unknown) (unknown) total cm time 45 mins (units unknown ) (unknown) Result panel 301 (unknown) (no date) (unknown) (unknown) Not Detected (units unknown ) (unknown) Result panel 302 (unknown) (no date) (unknown) (unknown) > 60 ml/min (unknown) (unknown) (no date) (unknown) (unknown) > 60 ml/min (unknown) (unknown) (no date) (unknown) (unknown) 0.91 mg/dl (unknown) (unknown) (no date) (unknown) (unknown) 106 mmol/l (unknown) (unknown) (no date) (unknown) (unknown) 136 mmol/l (unknown) (unknown) (no date) (unknown) (unknown) 136 mmol/l (unknown) (unknown) (no date) (unknown) (unknown) 155 mg/dl (unknown) (unknown) (no date) (unknown) (unknown) 155 mg/dl (unknown) (unknown) (no date) (unknown) (unknown) 22 mg/dl (unknown) (unknown) (no date) (unknown) (unknown) 22 mmol/l (unknown) (unknown) (no date) (unknown) (unknown) 24.2 (units unknown ) (unknown) (unknown) (no date) (unknown) (unknown) 3.9 mmol/l (unknown) (unknown) (no date) (unknown) (unknown) 8.5 mg/dl (unknown) Result panel 303 (unknown) (no date) (unknown) (unknown) (no value) (units unknown ) (unknown) (unknown) (no date) (unknown) (unknown) 05/27/22 2253 (units unknown ) (unknown) (unknown) (no date) (unknown) (unknown) 6599 (units unknown ) (unknown) (unknown) (no date) (unknown) (unknown) AG closed and Co2 22 . Transitioned to lantus 20 units SQ QHS and medium (units unknown ) (unknown) (unknown) (no date) (unknown) (unknown) Age/Sex: 56 / M (units unknown ) (unknown) (unknown) (no date) (unknown) (unknown) : 1965 Acct:[id number] (units unknown ) (unknown) (unknown) (no date) (unknown) (unknown) Date of Service: 05/27/22 (units unknown ) (unknown) (unknown) (no date) (unknown) (unknown) Event Note (Rapid Response, Code, or fall): (units unknown ) (unknown) (unknown) (no date) (unknown) (unknown) Event Note (units unknown ) (unknown) (unknown) (no date) (unknown) (unknown) [address] [address] (units unknown ) (unknown) (unknown) (no date) (unknown) (unknown) Patient: Avinash Meredith MR#: [id number] (units unknown ) (unknown) (unknown) (no date) (unknown) (unknown) Provider: Chris Johnson MD (units unknown ) (unknown) (unknown) (no date) (unknown) (unknown) Signed By:<Keven desir signed by Chris Johnson MD> (units unknown ) (unknown) (unknown) (no date) (unknown) (unknown) intensity insulin sl iding scale. D/w bedside RN. (units unknown ) (unknown) Result panel 304 (unknown) (no date) (unknown) (unknown) 0 /ul (unknown) (unknown) (no date) (unknown) (unknown) 0 /ul (unknown) (unknown) (no date) (unknown) (unknown) 0.2 % (unknown) (unknown) (no date) (unknown) (unknown) 0.4 % (unknown) (unknown) (no date) (unknown) (unknown) 1000 /ul (unknown) (unknown) (no date) (unknown) (unknown) 11.4 x10 3/ul (unknown) (unknown) (no date) (unknown) (unknown) 12.5 % (unknown) (unknown) (no date) (unknown) (unknown) 12.8 g/dl (unknown) (unknown) (no date) (unknown) (unknown) 13.7 % (unknown) (unknown) (no date) (unknown) (unknown) 1400 /ul (unknown) (unknown) (no date) (unknown) (unknown) 233 x10 3/ul (unknown) (unknown) (no date) (unknown) (unknown) 29.6 pg (unknown) (unknown) (no date) (unknown) (unknown) 34.4 % (unknown) (unknown) (no date) (unknown) (unknown) 37.2 % (unknown) (unknown) (no date) (unknown) (unknown) 4.31 x10 6/ul (unknown) (unknown) (no date) (unknown) (unknown) 77.9 % (unknown) (unknown) (no date) (unknown) (unknown) 86.3 fl (unknown) (unknown) (no date) (unknown) (unknown) 8900 /ul (unknown) (unknown) (no date) (unknown) (unknown) 9.0 % (unknown) Result panel 305 (unknown) (no date) (unknown) (unknown) > 60 ml/min (unknown) (unknown) (no date) (unknown) (unknown) > 60 ml/min (unknown) (unknown) (no date) (unknown) (unknown) 0.95 mg/dl (unknown) (unknown) (no date) (unknown) (unknown) 105 mmol/l (unknown) (unknown) (no date) (unknown) (unknown) 134 mmol/l (unknown) (unknown) (no date) (unknown) (unknown) 206 mg/dl (unknown) (unknown) (no date) (unknown) (unknown) 206 mg/dl (unknown) (unknown) (no date) (unknown) (unknown) 21 mmol/l (unknown) (unknown) (no date) (unknown) (unknown) 22 mg/dl (unknown) (unknown) (no date) (unknown) (unknown) 23.2 (units unknown ) (unknown) (unknown) (no date) (unknown) (unknown) 3.9 mmol/l (unknown) (unknown) (no date) (unknown) (unknown) 8.1 mg/dl (unknown) Result panel 306 (unknown) (no date) (unknown) (unknown) No growth. (units unknown ) (unknown) Result panel 307 (unknown) (no date) (unknown) (unknown) (no value) (units unknown ) (unknown) (unknown) (no date) (unknown) (unknown) # acute DKA (units unknown ) (unknown) (unknown) (no date) (unknown) (unknown) # toothache (units unknown ) (unknown) (unknown) (no date) (unknown) (unknown) # type 1 diabetes (units unknown ) (unknown) (unknown) (no date) (unknown) (unknown) (past 8 hours): (units unknown ) (unknown) (unknown) (no date) (unknown) (unknown) -A1c 9.5% (units unknown ) (unknown) (unknown) (no date) (unknown) (unknown) -blood sugar 731 on admission, anion gap 26, bicarb 12, ketones positive at 6.46 (units unknown ) (unknown) (unknown) (no date) (unknown) (unknown) -continue Rocephin a nd Flagyl (units unknown ) (unknown) (unknown) (no date) (unknown) (unknown) -dietitian consulted (units unknown ) (unknown) (unknown) (no date) (unknown) (unknown) -on insulin protocol (units unknown ) (unknown) (unknown) (no date) (unknown) (unknown) -tele ICU consulted (units unknown ) (unknown) (unknown) (no date) (unknown) (unknown) -transition to subcutaneous insulin once gap closes (units unknown ) (unknown) (unknown) (no date) (unknown) (unknown) -unclear if he has d ental infection which triggered the DKA, as he is noticed a (units unknown ) (unknown) (unknown) (no date) (unknown) (unknown) 01:03 05/28/22 (units unknown ) (unknown) (unknown) (no date) (unknown) (unknown) 02:00 05/28/22 (units unknown ) (unknown) (unknown) (no date) (unknown) (unknown) 02:00 (units unknown ) (unknown) (unknown) (no date) (unknown) (unknown) 02:02 05/28/22 (units unknown ) (unknown) (unknown) (no date) (unknown) (unknown) 02:05 (units unknown ) (unknown) (unknown) (no date) (unknown) (unknown) 05/27/22 05/27/22 05/27/22 (unit s unknown ) (unknown) (unknown) (no date) (unknown) (unknown) 05/27/22 05/27/22 05/28/22 (unit s unknown ) (unknown) (unknown) (no date) (unknown) (unknown) 05/28/22 04:20 (units unknown ) (unknown) (unknown) (no date) (unknown) (unknown) 05/28/22 (units unknown ) (unknown) (unknown) (no date) (unknown) (unknown) 03:00 05/28/22 (units unknown ) (unknown) (unknown) (no date) (unknown) (unknown) 04:00 05/28/22 (units unknown ) (unknown) (unknown) (no date) (unknown) (unknown) 04:00 (units unknown ) (unknown) (unknown) (no date) (unknown) (unknown) 04:19 05/28/22 (units unknown ) (unknown) (unknown) (no date) (unknown) (unknown) 04:20 (units unknown ) (unknown) (unknown) (no date) (unknown) (unknown) 06:00 05/28/22 (units unknown ) (unknown) (unknown) (no date) (unknown) (unknown) 06:00 (units unknown ) (unknown) (unknown) (no date) (unknown) (unknown) 06:18 05/28/22 (units unknown ) (unknown) (unknown) (no date) (unknown) (unknown) 06:30 05/28/22 (units unknown ) (unknown) (unknown) (no date) (unknown) (unknown) 07:00 (units unknown ) (unknown) (unknown) (no date) (unknown) (unknown) 07:30 05/28/22 (units unknown ) (unknown) (unknown) (no date) (unknown) (unknown) 08:00 05/28/22 (units unknown ) (unknown) (unknown) (no date) (unknown) (unknown) 08:00 (units unknown ) (unknown) (unknown) (no date) (unknown) (unknown) 12:55 13:50 13:50 (units unknown ) (unknown) (unknown) (no date) (unknown) (unknown) 13:50 13:50 13:50 (units unknown ) (unknown) (unknown) (no date) (unknown) (unknown) 14:15 14:40 14:40 (units unknown ) (unknown) (unknown) (no date) (unknown) (unknown) 15:12 16:28 16:50 (units unknown ) (unknown) (unknown) (no date) (unknown) (unknown) 20:00 22:05 04:20 (units unknown ) (unknown) (unknown) (no date) (unknown) (unknown) 6599 (units unknown ) (unknown) (unknown) (no date) (unknown) (unknown) ABD: soft, nontender , nondistended, no organomegaly (units unknown ) (unknown) (unknown) (no date) (unknown) (unknown) ABG Base Excess -15.0 L (units unknown ) (unknown) (unknown) (no date) (unknown) (unknown) ABG Base Excess (units unknown ) (unknown) (unknown) (no date) (unknown) (unknown) ABG HCO3 12 L (units unknown ) (unknown) (unknown) (no date) (unknown) (unknown) ABG HCO3 (units unknown ) (unknown) (unknown) (no date) (unknown) (unknown) ABG O2 Saturation 97 (units unknown ) (unknown) (unknown) (no date) (unknown) (unknown) ABG O2 Saturation (units unknown ) (unknown) (unknown) (no date) (unknown) (unknown) ABG Total CO2 12 L (units unknown ) (unknown) (unknown) (no date) (unknown) (unknown) ABG Total CO2 (units unknown ) (unknown) (unknown) (no date) (unknown) (unknown) ABG pCO2 24.9 L* (units unknown ) (unknown) (unknown) (no date) (unknown) (unknown) ABG pCO2 (units unknown ) (unknown) (unknown) (no date) (unknown) (unknown) ABG pH 7.27 L* (units unknown ) (unknown) (unknown) (no date) (unknown) (unknown) ABG pH (units unknown ) (unknown) (unknown) (no date) (unknown) (unknown) ABG pO2 99 (units unknown ) (unknown) (unknown) (no date) (unknown) (unknown) ABG pO2 (units unknown ) (unknown) (unknown) (no date) (unknown) (unknown) ALT 40 (units unknown ) (unknown) (unknown) (no date) (unknown) (unknown) ALT 44 (units unknown ) (unknown) (unknown) (no date) (unknown) (unknown) ALT (units unknown ) (unknown) (unknown) (no date) (unknown) (unknown) AST 27 (units unknown ) (unknown) (unknown) (no date) (unknown) (unknown) AST 30 (units unknown ) (unknown) (unknown) (no date) (unknown) (unknown) AST (units unknown ) (unknown) (unknown) (no date) (unknown) (unknown) Age/Sex: 56 / M (units unknown ) (unknown) (unknown) (no date) (unknown) (unknown) Albumin 4.1 (units unknown ) (unknown) (unknown) (no date) (unknown) (unknown) Albumin 4.7 (units unknown ) (unknown) (unknown) (no date) (unknown) (unknown) Albumin (units unknown ) (unknown) (unknown) (no date) (unknown) (unknown) Albumin/Globulin Ratio 1.5 (unit s unknown ) (unknown) (unknown) (no date) (unknown) (unknown) Albumin/Globulin Ratio (units unknown ) (unknown) (unknown) (no date) (unknown) (unknown) Alkaline Phosphatase 104 (units unknown ) (unknown) (unknown) (no date) (unknown) (unknown) Alkaline Phosphatase 79 (units unknown ) (unknown) (unknown) (no date) (unknown) (unknown) Alkaline Phosphatase (units unknown ) (unknown) (unknown) (no date) (unknown) (unknown) Amorphous Sediment 1 (units unknown ) (unknown) (unknown) (no date) (unknown) (unknown) Amorphous Sediment (units unknown ) (unknown) (unknown) (no date) (unknown) (unknown) Assessment + Plan narrative: (units unknown ) (unknown) (unknown) (no date) (unknown) (unknown) Assessment + Plan (units unknown ) (unknown) (unknown) (no date) (unknown) (unknown) BUN 22 H (units unknown ) (unknown) (unknown) (no date) (unknown) (unknown) BUN 23 H (units unknown ) (unknown) (unknown) (no date) (unknown) (unknown) BUN 24 H (units unknown ) (unknown) (unknown) (no date) (unknown) (unknown) BUN (units unknown ) (unknown) (unknown) (no date) (unknown) (unknown) BUN/Creatinine Ratio 20.0 (units unknown ) (unknown) (unknown) (no date) (unknown) (unknown) BUN/Creatinine Ratio 21.4 (units unknown ) (unknown) (unknown) (no date) (unknown) (unknown) BUN/Creatinine Ratio 23.2 H (units unknown ) (unknown) (unknown) (no date) (unknown) (unknown) BUN/Creatinine Ratio 24.2 H (units unknown ) (unknown) (unknown) (no date) (unknown) (unknown) BUN/Creatinine Ratio (units unknown ) (unknown) (unknown) (no date) (unknown) (unknown) Baso # (Auto) 0 (units unknown ) (unknown) (unknown) (no date) (unknown) (unknown) Baso # (Auto) 100 (units unknown ) (unknown) (unknown) (no date) (unknown) (unknown) Baso # (Auto) (units unknown ) (unknown) (unknown) (no date) (unknown) (unknown) Baso % (Auto) 0.4 (units unknown ) (unknown) (unknown) (no date) (unknown) (unknown) Baso % (Auto) 0.5 (units unknown ) (unknown) (unknown) (no date) (unknown) (unknown) Baso % (Auto) (units unknown ) (unknown) (unknown) (no date) (unknown) (unknown) Blood Pressure 114/63 (units unknown ) (unknown) (unknown) (no date) (unknown) (unknown) Blood Pressure 120/60 (units unknown ) (unknown) (unknown) (no date) (unknown) (unknown) Blood Pressure 125/61 (units unknown ) (unknown) (unknown) (no date) (unknown) (unknown) Blood Pressure 96/51 L (units unknown ) (unknown) (unknown) (no date) (unknown) (unknown) Blood Pressure 97/54 L (units unknown ) (unknown) (unknown) (no date) (unknown) (unknown) Blood Pressure (units unknown ) (unknown) (unknown) (no date) (unknown) (unknown) CK-MB (CK-2) Rel Index TNP (unit s unknown ) (unknown) (unknown) (no date) (unknown) (unknown) CK-MB (CK-2) Rel Index (units unknown ) (unknown) (unknown) (no date) (unknown) (unknown) CK-MB (CK-2) TNP (units unknown ) (unknown) (unknown) (no date) (unknown) (unknown) CK-MB (CK-2) (units unknown ) (unknown) (unknown) (no date) (unknown) (unknown) COVID negative. (units unknown ) (unknown) (unknown) (no date) (unknown) (unknown) CV: regular rate and rhythm, no murmurs (units unknown ) (unknown) (unknown) (no date) (unknown) (unknown) Calcium 8.1 L (units unknown ) (unknown) (unknown) (no date) (unknown) (unknown) Calcium 8.5 (units unknown ) (unknown) (unknown) (no date) (unknown) (unknown) Calcium 8.8 (units unknown ) (unknown) (unknown) (no date) (unknown) (unknown) Calcium 9.7 (units unknown ) (unknown) (unknown) (no date) (unknown) (unknown) Calcium (units unknown ) (unknown) (unknown) (no date) (unknown) (unknown) Carbon Dioxide 12 L (units unknown ) (unknown) (unknown) (no date) (unknown) (unknown) Carbon Dioxide 21 L (units unknown ) (unknown) (unknown) (no date) (unknown) (unknown) Carbon Dioxide 22 (units unknown ) (unknown) (unknown) (no date) (unknown) (unknown) Carbon Dioxide 8 L* (units unknown ) (unknown) (unknown) (no date) (unknown) (unknown) Carbon Dioxide (units unknown ) (unknown) (unknown) (no date) (unknown) (unknown) Chloride 103 (units unknown ) (unknown) (unknown) (no date) (unknown) (unknown) Chloride 105 (units unknown ) (unknown) (unknown) (no date) (unknown) (unknown) Chloride 106 (units unknown ) (unknown) (unknown) (no date) (unknown) (unknown) Chloride 94 L (units unknown ) (unknown) (unknown) (no date) (unknown) (unknown) Chloride (units unknown ) (unknown) (unknown) (no date) (unknown) (unknown) Code status is full code. (units unknown ) (unknown) (unknown) (no date) (unknown) (unknown) Creatinine 0.91 (units unknown ) (unknown) (unknown) (no date) (unknown) (unknown) Creatinine 0.95 (units unknown ) (unknown) (unknown) (no date) (unknown) (unknown) Creatinine 1.12 (units unknown ) (unknown) (unknown) (no date) (unknown) (unknown) Creatinine 1.15 (units unknown ) (unknown) (unknown) (no date) (unknown) (unknown) Creatinine (units unknown ) (unknown) (unknown) (no date) (unknown) (unknown) Critical Care time: (units unknown ) (unknown) (unknown) (no date) (unknown) (unknown) : 1965 Acct:[id number] (units unknown ) (unknown) (unknown) (no date) (unknown) (unknown) DVT prophylaxis with SCDs. (unit s unknown ) (unknown) (unknown) (no date) (unknown) (unknown) Date of Service: 05/27/22 (units unknown ) (unknown) (unknown) (no date) (unknown) (unknown) Deep Vein Thrombosis/Pulmonary Embolism Present on Admission: No (units unknown ) (unknown) (unknown) (no date) (unknown) (unknown) EXT: warm and well perfused with no edema (units unknown ) (unknown) (unknown) (no date) (unknown) (unknown) Eos # (Auto) 0 (units unknown ) (unknown) (unknown) (no date) (unknown) (unknown) Eos # (Auto) (units unknown ) (unknown) (unknown) (no date) (unknown) (unknown) Eos % (Auto) 0.1 L (units unknown ) (unknown) (unknown) (no date) (unknown) (unknown) Eos % (Auto) 0.2 L (units unknown ) (unknown) (unknown) (no date) (unknown) (unknown) Eos % (Auto) (units unknown ) (unknown) (unknown) (no date) (unknown) (unknown) Estimated GFR > 60 (units unknown ) (unknown) (unknown) (no date) (unknown) (unknown) Estimated GFR (units unknown ) (unknown) (unknown) (no date) (unknown) (unknown) Ethyl Alcohol < 10 (units unknown ) (unknown) (unknown) (no date) (unknown) (unknown) Ethyl Alcohol (units unknown ) (unknown) (unknown) (no date) (unknown) (unknown) Exam Narrative: (units unknown ) (unknown) (unknown) (no date) (unknown) (unknown) Exam (units unknown ) (unknown) (unknown) (no date) (unknown) (unknown) FiO2 21 (units unknown ) (unknown) (unknown) (no date) (unknown) (unknown) FiO2 (units unknown ) (unknown) (unknown) (no date) (unknown) (unknown) GEN: no acute distress (units unknown ) (unknown) (unknown) (no date) (unknown) (unknown) Globulin 2.8 (units unknown ) (unknown) (unknown) (no date) (unknown) (unknown) Globulin 3.1 (units unknown ) (unknown) (unknown) (no date) (unknown) (unknown) Globulin (units unknown ) (unknown) (unknown) (no date) (unknown) (unknown) Glucose 155 H D (units unknown ) (unknown) (unknown) (no date) (unknown) (unknown) Glucose 206 H (units unknown ) (unknown) (unknown) (no date) (unknown) (unknown) Glucose 532 H* (units unknown ) (unknown) (unknown) (no date) (unknown) (unknown) Glucose 731 H* (units unknown ) (unknown) (unknown) (no date) (unknown) (unknown) Glucose (units unknown ) (unknown) (unknown) (no date) (unknown) (unknown) HEENT: moist mucous membranes, PERRL (units unknown ) (unknown) (unknown) (no date) (unknown) (unknown) Hct 37.2 L (units unknown ) (unknown) (unknown) (no date) (unknown) (unknown) Hct 44.7 (units unknown ) (unknown) (unknown) (no date) (unknown) (unknown) Hct (units unknown ) (unknown) (unknown) (no date) (unknown) (unknown) Hemoglobin A1c 9.5 H (units unknown ) (unknown) (unknown) (no date) (unknown) (unknown) Hemoglobin A1c (units unknown ) (unknown) (unknown) (no date) (unknown) (unknown) Hgb 12.8 L (units unknown ) (unknown) (unknown) (no date) (unknown) (unknown) Hgb 14.9 (units unknown ) (unknown) (unknown) (no date) (unknown) (unknown) Hgb (units unknown ) (unknown) (unknown) (no date) (unknown) (unknown) I have reviewed home meds and used all available resources to reconcile the home (units unknown ) (unknown) (unknown) (no date) (unknown) (unknown) I spent a total of 3 5 minutes of critical care time on this patient's care (units unknown ) (unknown) (unknown) (no date) (unknown) (unknown) I spent a total of [ ] minutes of critical care time on this patient's care (units unknown ) (unknown) (unknown) (no date) (unknown) (unknown) Insulin dependent di abetes mellitus (units unknown ) (unknown) (unknown) (no date) (unknown) (unknown) [address] [address] (units unknown ) (unknown) (unknown) (no date) (unknown) (unknown) Ketones 6.46 H (units unknown ) (unknown) (unknown) (no date) (unknown) (unknown) Ketones (units unknown ) (unknown) (unknown) (no date) (unknown) (unknown) Laboratory Results - last 24 hr (units unknown ) (unknown) (unknown) (no date) (unknown) (unknown) Labs (units unknown ) (unknown) (unknown) (no date) (unknown) (unknown) Labs: (units unknown ) (unknown) (unknown) (no date) (unknown) (unknown) Lipase 62 (units unknown ) (unknown) (unknown) (no date) (unknown) (unknown) Lipase (units unknown ) (unknown) (unknown) (no date) (unknown) (unknown) Lymph # (Auto) 1400 (units unknown ) (unknown) (unknown) (no date) (unknown) (unknown) Lymph # (Auto) 700 L (units unknown ) (unknown) (unknown) (no date) (unknown) (unknown) Lymph # (Auto) (units unknown ) (unknown) (unknown) (no date) (unknown) (unknown) Lymph % (Auto) 12.5 L (units unknown ) (unknown) (unknown) (no date) (unknown) (unknown) Lymph % (Auto) 6.4 L (units unknown ) (unknown) (unknown) (no date) (unknown) (unknown) Lymph % (Auto) (units unknown ) (unknown) (unknown) (no date) (unknown) (unknown) MCH 29.6 (units unknown ) (unknown) (unknown) (no date) (unknown) (unknown) MCH 29.7 (units unknown ) (unknown) (unknown) (no date) (unknown) (unknown) MCH (units unknown ) (unknown) (unknown) (no date) (unknown) (unknown) MCHC 33.3 (units unknown ) (unknown) (unknown) (no date) (unknown) (unknown) MCHC 34.4 (units unknown ) (unknown) (unknown) (no date) (unknown) (unknown) MCHC (units unknown ) (unknown) (unknown) (no date) (unknown) (unknown) MCV 86.3 (units unknown ) (unknown) (unknown) (no date) (unknown) (unknown) MCV 89.1 (units unknown ) (unknown) (unknown) (no date) (unknown) (unknown) MCV (units unknown ) (unknown) (unknown) (no date) (unknown) (unknown) Magnesium 1.8 (units unknown ) (unknown) (unknown) (no date) (unknown) (unknown) Magnesium (units unknown ) (unknown) (unknown) (no date) (unknown) (unknown) Medical History (Rev iewed 05/27/22 @ 19:26 by Dalton Graff DO) (units unknown ) (unknown) (unknown) (no date) (unknown) (unknown) [place] # (Auto) 1000 H (units unknown ) (unknown) (unknown) (no date) (unknown) (unknown) [place] # (Auto) 300 (units unknown ) (unknown) (unknown) (no date) (unknown) (unknown) [place] # (Auto) (units unknown ) (unknown) (unknown) (no date) (unknown) (unknown) [place] % (Auto) 2.7 L (units unknown ) (unknown) (unknown) (no date) (unknown) (unknown) [place] % (Auto) 9.0 (units unknown ) (unknown) (unknown) (no date) (unknown) (unknown) [place] % (Auto) (units unknown ) (unknown) (unknown) (no date) (unknown) (unknown) NECK: trachea midlin e, no JVD (units unknown ) (unknown) (unknown) (no date) (unknown) (unknown) NEURO: awake, alert, oriented, no focal deficits (units unknown ) (unknown) (unknown) (no date) (unknown) (unknown) Narrative (units unknown ) (unknown) (unknown) (no date) (unknown) (unknown) Nasal Screen MRSA (P CR) Not detected (units unknown ) (unknown) (unknown) (no date) (unknown) (unknown) Nasal Screen MRSA (PCR) (units unknown ) (unknown) (unknown) (no date) (unknown) (unknown) Neut # (Auto) 32009 H (units unknown ) (unknown) (unknown) (no date) (unknown) (unknown) Neut # (Auto) 8900 H (units unknown ) (unknown) (unknown) (no date) (unknown) (unknown) Neut # (Auto) (units unknown ) (unknown) (unknown) (no date) (unknown) (unknown) Neut % (Auto) 77.9 H (units unknown ) (unknown) (unknown) (no date) (unknown) (unknown) Neut % (Auto) 90.3 H (units unknown ) (unknown) (unknown) (no date) (unknown) (unknown) Neut % (Auto) (units unknown ) (unknown) (unknown) (no date) (unknown) (unknown) Objective (units unknown ) (unknown) (unknown) (no date) (unknown) (unknown) Oxygen Delivery Meth od Room Air (units unknown ) (unknown) (unknown) (no date) (unknown) (unknown) PFSH (units unknown ) (unknown) (unknown) (no date) (unknown) (unknown) PULM: clear bilaterally (units unknown ) (unknown) (unknown) (no date) (unknown) (unknown) Patient: Avinash Meredith MR#: [id number] (units unknown ) (unknown) (unknown) (no date) (unknown) (unknown) Phosphorus 3.6 (units unknown ) (unknown) (unknown) (no date) (unknown) (unknown) Phosphorus (units unknown ) (unknown) (unknown) (no date) (unknown) (unknown) Plt Count 233 (units unknown ) (unknown) (unknown) (no date) (unknown) (unknown) Plt Count 243 (units unknown ) (unknown) (unknown) (no date) (unknown) (unknown) Plt Count (units unknown ) (unknown) (unknown) (no date) (unknown) (unknown) Potassium 3.9 (units unknown ) (unknown) (unknown) (no date) (unknown) (unknown) Potassium 4.4 (units unknown ) (unknown) (unknown) (no date) (unknown) (unknown) Potassium 5.0 (units unknown ) (unknown) (unknown) (no date) (unknown) (unknown) Potassium (units unknown ) (unknown) (unknown) (no date) (unknown) (unknown) Progress Note (units unknown ) (unknown) (unknown) (no date) (unknown) (unknown) Provider: Mckinley Coles D.O. (units unknown ) (unknown) (unknown) (no date) (unknown) (unknown) Proxy is Juliane. (units unknown ) (unknown) (unknown) (no date) (unknown) (unknown) Pulse Oximetry 100 (units unknown ) (unknown) (unknown) (no date) (unknown) (unknown) Pulse Oximetry 97 (units unknown ) (unknown) (unknown) (no date) (unknown) (unknown) Pulse Oximetry (units unknown ) (unknown) (unknown) (no date) (unknown) (unknown) Pulse Rate 64 64 65 (units unknown ) (unknown) (unknown) (no date) (unknown) (unknown) Pulse Rate 65 65 (units unknown ) (unknown) (unknown) (no date) (unknown) (unknown) Pulse Rate 66 57 L (units unknown ) (unknown) (unknown) (no date) (unknown) (unknown) Pulse Rate 74 66 (units unknown ) (unknown) (unknown) (no date) (unknown) (unknown) Pulse Rate 81 66 (units unknown ) (unknown) (unknown) (no date) (unknown) (unknown) Quality (units unknown ) (unknown) (unknown) (no date) (unknown) (unknown) RBC 4.31 L (units unknown ) (unknown) (unknown) (no date) (unknown) (unknown) RBC 5.02 (units unknown ) (unknown) (unknown) (no date) (unknown) (unknown) RBC (units unknown ) (unknown) (unknown) (no date) (unknown) (unknown) RDW 13.3 (units unknown ) (unknown) (unknown) (no date) (unknown) (unknown) RDW 13.7 (units unknown ) (unknown) (unknown) (no date) (unknown) (unknown) RDW (units unknown ) (unknown) (unknown) (no date) (unknown) (unknown) Respiratory Rate 15 16 (units unknown ) (unknown) (unknown) (no date) (unknown) (unknown) Respiratory Rate 17 17 18 (units unknown ) (unknown) (unknown) (no date) (unknown) (unknown) Respiratory Rate 18 16 (units unknown ) (unknown) (unknown) (no date) (unknown) (unknown) Respiratory Rate 18 18 (units unknown ) (unknown) (unknown) (no date) (unknown) (unknown) Respiratory Rate 20 16 (units unknown ) (unknown) (unknown) (no date) (unknown) (unknown) Respiratory Rate 31 H 17 (units unknown ) (unknown) (unknown) (no date) (unknown) (unknown) SARS-CoV-2 (PCR) Negative (units unknown ) (unknown) (unknown) (no date) (unknown) (unknown) SARS-CoV-2 (PCR) (units unknown ) (unknown) (unknown) (no date) (unknown) (unknown) Signed By: (units unknown ) (unknown) (unknown) (no date) (unknown) (unknown) Smoking Status: Form er smoker (units unknown ) (unknown) (unknown) (no date) (unknown) (unknown) Social History (Revi ewed 05/27/22 @ 19:26 by Dalton Graff DO) (units unknown ) (unknown) (unknown) (no date) (unknown) (unknown) Sodium 132 L (units unknown ) (unknown) (unknown) (no date) (unknown) (unknown) Sodium 134 L (units unknown ) (unknown) (unknown) (no date) (unknown) (unknown) Sodium 136 L (units unknown ) (unknown) (unknown) (no date) (unknown) (unknown) Sodium (units unknown ) (unknown) (unknown) (no date) (unknown) (unknown) TSH 2.80 (units unknown ) (unknown) (unknown) (no date) (unknown) (unknown) TSH (units unknown ) (unknown) (unknown) (no date) (unknown) (unknown) Temperature 98.2 F (units unknown ) (unknown) (unknown) (no date) (unknown) (unknown) Temperature 98.8 F (units unknown ) (unknown) (unknown) (no date) (unknown) (unknown) Temperature (units unknown ) (unknown) (unknown) (no date) (unknown) (unknown) This patient will be admitted as ICU and will require greater than 2 midnights (units unknown ) (unknown) (unknown) (no date) (unknown) (unknown) Time Spent With Patient (units unknown ) (unknown) (unknown) (no date) (unknown) (unknown) Total Bilirubin 2.2 H (units unknown ) (unknown) (unknown) (no date) (unknown) (unknown) Total Bilirubin 2.7 H (units unknown ) (unknown) (unknown) (no date) (unknown) (unknown) Total Bilirubin (units unknown ) (unknown) (unknown) (no date) (unknown) (unknown) Total Creatine Kinase 57 (units unknown ) (unknown) (unknown) (no date) (unknown) (unknown) Total Creatine Kinase (units unknown ) (unknown) (unknown) (no date) (unknown) (unknown) Total Protein 6.9 (units unknown ) (unknown) (unknown) (no date) (unknown) (unknown) Total Protein 7.8 (units unknown ) (unknown) (unknown) (no date) (unknown) (unknown) Total Protein (units unknown ) (unknown) (unknown) (no date) (unknown) (unknown) Troponin I < 0.012 (units unknown ) (unknown) (unknown) (no date) (unknown) (unknown) Troponin I (units unknown ) (unknown) (unknown) (no date) (unknown) (unknown) U Benzodiazepines Sc rn Negative (units unknown ) (unknown) (unknown) (no date) (unknown) (unknown) U Benzodiazepines Scrn (units unknown ) (unknown) (unknown) (no date) (unknown) (unknown) U Marijuana (THC) Sc reen Positive H (units unknown ) (unknown) (unknown) (no date) (unknown) (unknown) U Marijuana (THC) Screen (units unknown ) (unknown) (unknown) (no date) (unknown) (unknown) U Methamphetamines S crn Negative (units unknown ) (unknown) (unknown) (no date) (unknown) (unknown) U Methamphetamines Scrn (units unknown ) (unknown) (unknown) (no date) (unknown) (unknown) U Opiates 300ng/mL c ut Negative (units unknown ) (unknown) (unknown) (no date) (unknown) (unknown) U Opiates 300ng/mL cut (units unknown ) (unknown) (unknown) (no date) (unknown) (unknown) U Tricyclic Antidepr ess Negative (units unknown ) (unknown) (unknown) (no date) (unknown) (unknown) U Tricyclic Antidepress (units unknown ) (unknown) (unknown) (no date) (unknown) (unknown) Ur Amphetamines Scre en Negative (units unknown ) (unknown) (unknown) (no date) (unknown) (unknown) Ur Amphetamines Screen (units unknown ) (unknown) (unknown) (no date) (unknown) (unknown) Ur Barbiturates Scre en Negative (units unknown ) (unknown) (unknown) (no date) (unknown) (unknown) Ur Barbiturates Screen (units unknown ) (unknown) (unknown) (no date) (unknown) (unknown) Ur Culture Indicated ? Cult not indicated (units unknown ) (unknown) (unknown) (no date) (unknown) (unknown) Ur Culture Indicated? (units unknown ) (unknown) (unknown) (no date) (unknown) (unknown) Ur Leukocyte [place] e Negative (units unknown ) (unknown) (unknown) (no date) (unknown) (unknown) Ur Leukocyte Esterase (units unknown ) (unknown) (unknown) (no date) (unknown) (unknown) Ur MDMA Scrn ([place] y) Negative (units unknown ) (unknown) (unknown) (no date) (unknown) (unknown) Ur MDMA Scrn ([place]) (units unknown ) (unknown) (unknown) (no date) (unknown) (unknown) Ur Oxycodone Screen Negative (units unknown ) (unknown) (unknown) (no date) (unknown) (unknown) Ur Oxycodone Screen (units unknown ) (unknown) (unknown) (no date) (unknown) (unknown) Ur Phencyclidine Scr n Negative (units unknown ) (unknown) (unknown) (no date) (unknown) (unknown) Ur Phencyclidine Scrn (units unknown ) (unknown) (unknown) (no date) (unknown) (unknown) Ur Specific [place] 1.010 (units unknown ) (unknown) (unknown) (no date) (unknown) (unknown) Ur Specific [place] (units unknown ) (unknown) (unknown) (no date) (unknown) (unknown) Urine Appearance Clear (units unknown ) (unknown) (unknown) (no date) (unknown) (unknown) Urine Appearance (units unknown ) (unknown) (unknown) (no date) (unknown) (unknown) Urine Bacteria None seen (units unknown ) (unknown) (unknown) (no date) (unknown) (unknown) Urine Bacteria (units unknown ) (unknown) (unknown) (no date) (unknown) (unknown) Urine Bilirubin Negative (units unknown ) (unknown) (unknown) (no date) (unknown) (unknown) Urine Bilirubin (units unknown ) (unknown) (unknown) (no date) (unknown) (unknown) Urine Cocaine Screen Negative (units unknown ) (unknown) (unknown) (no date) (unknown) (unknown) Urine Cocaine Screen (units unknown ) (unknown) (unknown) (no date) (unknown) (unknown) Urine Color Yellow (units unknown ) (unknown) (unknown) (no date) (unknown) (unknown) Urine Color (units unknown ) (unknown) (unknown) (no date) (unknown) (unknown) Urine Glucose (UA) 3+ H (units unknown ) (unknown) (unknown) (no date) (unknown) (unknown) Urine Glucose (UA) (units unknown ) (unknown) (unknown) (no date) (unknown) (unknown) Urine Ketones 3+ H (units unknown ) (unknown) (unknown) (no date) (unknown) (unknown) Urine Ketones (units unknown ) (unknown) (unknown) (no date) (unknown) (unknown) Urine Methadone Scre en Negative (units unknown ) (unknown) (unknown) (no date) (unknown) (unknown) Urine Methadone Screen (units unknown ) (unknown) (unknown) (no date) (unknown) (unknown) Urine Nitrate Negative (units unknown ) (unknown) (unknown) (no date) (unknown) (unknown) Urine Nitrate (units unknown ) (unknown) (unknown) (no date) (unknown) (unknown) Urine Occult Blood Negative (units unknown ) (unknown) (unknown) (no date) (unknown) (unknown) Urine Occult Blood (units unknown ) (unknown) (unknown) (no date) (unknown) (unknown) Urine Protein Negative (units unknown ) (unknown) (unknown) (no date) (unknown) (unknown) Urine Protein (units unknown ) (unknown) (unknown) (no date) (unknown) (unknown) Urine RBC None seen (units unknown ) (unknown) (unknown) (no date) (unknown) (unknown) Urine RBC (units unknown ) (unknown) (unknown) (no date) (unknown) (unknown) Urine Urobilinogen 0.2 (units unknown ) (unknown) (unknown) (no date) (unknown) (unknown) Urine Urobilinogen (units unknown ) (unknown) (unknown) (no date) (unknown) (unknown) Urine WBC None seen (units unknown ) (unknown) (unknown) (no date) (unknown) (unknown) Urine WBC (units unknown ) (unknown) (unknown) (no date) (unknown) (unknown) Urine pH 6.0 (units unknown ) (unknown) (unknown) (no date) (unknown) (unknown) Urine pH (units unknown ) (unknown) (unknown) (no date) (unknown) (unknown) VBG Base Excess -11.0 L (units unknown ) (unknown) (unknown) (no date) (unknown) (unknown) VBG Base Excess (units unknown ) (unknown) (unknown) (no date) (unknown) (unknown) VBG HCO3 15 L (units unknown ) (unknown) (unknown) (no date) (unknown) (unknown) VBG HCO3 (units unknown ) (unknown) (unknown) (no date) (unknown) (unknown) VBG O2 Saturation 46 L (units unknown ) (unknown) (unknown) (no date) (unknown) (unknown) VBG O2 Saturation (units unknown ) (unknown) (unknown) (no date) (unknown) (unknown) VBG Total CO2 16 L (units unknown ) (unknown) (unknown) (no date) (unknown) (unknown) VBG Total CO2 (units unknown ) (unknown) (unknown) (no date) (unknown) (unknown) VBG pCO2 26.7 L (units unknown ) (unknown) (unknown) (no date) (unknown) (unknown) VBG pCO2 (units unknown ) (unknown) (unknown) (no date) (unknown) (unknown) VBG pH 7.35 (units unknown ) (unknown) (unknown) (no date) (unknown) (unknown) VBG pH (units unknown ) (unknown) (unknown) (no date) (unknown) (unknown) VBG pO2 26 L (units unknown ) (unknown) (unknown) (no date) (unknown) (unknown) VBG pO2 (units unknown ) (unknown) (unknown) (no date) (unknown) (unknown) VTE (units unknown ) (unknown) (unknown) (no date) (unknown) (unknown) Vital Signs (units unknown ) (unknown) (unknown) (no date) (unknown) (unknown) WBC 11.2 H (units unknown ) (unknown) (unknown) (no date) (unknown) (unknown) WBC 11.4 H (units unknown ) (unknown) (unknown) (no date) (unknown) (unknown) WBC (units unknown ) (unknown) (unknown) (no date) (unknown) (unknown) [Embedded Image Not Available] (units unknown ) (unknown) (unknown) (no date) (unknown) (unknown) alcohol intake: current (units unknown ) (unknown) (unknown) (no date) (unknown) (unknown) household members: spouse (units unknown ) (unknown) (unknown) (no date) (unknown) (unknown) meds. (units unknown ) (unknown) (unknown) (no date) (unknown) (unknown) of hospital time to treat DKA. (units unknown ) (unknown) (unknown) (no date) (unknown) (unknown) substance use type: does not use (units unknown ) (unknown) (unknown) (no date) (unknown) (unknown) today; this time is exclusive of procedural time. (units unknown ) (unknown) (unknown) (no date) (unknown) (unknown) toothache for 1 week (units unknown ) (unknown) Result panel 308 (unknown) (no date) (unknown) (unknown) (no value) (units unknown ) (unknown) (unknown) (no date) (unknown) (unknown) # acute DKA (units unknown ) (unknown) (unknown) (no date) (unknown) (unknown) # toothache (units unknown ) (unknown) (unknown) (no date) (unknown) (unknown) # type 1 diabetes (units unknown ) (unknown) (unknown) (no date) (unknown) (unknown) (past 8 hours): (units unknown ) (unknown) (unknown) (no date) (unknown) (unknown) -A1c 9.5% (units unknown ) (unknown) (unknown) (no date) (unknown) (unknown) -blood sugar 731 on admission, anion gap 26, bicarb 12, ketones positive at 6.46 (units unknown ) (unknown) (unknown) (no date) (unknown) (unknown) -continue Rocephin a nd Flagyl (units unknown ) (unknown) (unknown) (no date) (unknown) (unknown) -dietitian consulted (units unknown ) (unknown) (unknown) (no date) (unknown) (unknown) -on insulin protocol (units unknown ) (unknown) (unknown) (no date) (unknown) (unknown) -tele ICU consulted (units unknown ) (unknown) (unknown) (no date) (unknown) (unknown) -transition to subcutaneous insulin once gap closes (units unknown ) (unknown) (unknown) (no date) (unknown) (unknown) -unclear if he has d ental infection which triggered the DKA, as he is noticed a (units unknown ) (unknown) (unknown) (no date) (unknown) (unknown) 01:03 05/28/22 (units unknown ) (unknown) (unknown) (no date) (unknown) (unknown) 02:00 05/28/22 (units unknown ) (unknown) (unknown) (no date) (unknown) (unknown) 02:00 (units unknown ) (unknown) (unknown) (no date) (unknown) (unknown) 02:02 05/28/22 (units unknown ) (unknown) (unknown) (no date) (unknown) (unknown) 02:05 (units unknown ) (unknown) (unknown) (no date) (unknown) (unknown) 05/27/22 05/27/22 05/27/22 (unit s unknown ) (unknown) (unknown) (no date) (unknown) (unknown) 05/27/22 05/27/22 05/28/22 (unit s unknown ) (unknown) (unknown) (no date) (unknown) (unknown) 05/28/22 04:20 (units unknown ) (unknown) (unknown) (no date) (unknown) (unknown) 05/28/22 (units unknown ) (unknown) (unknown) (no date) (unknown) (unknown) 03:00 05/28/22 (units unknown ) (unknown) (unknown) (no date) (unknown) (unknown) 04:00 05/28/22 (units unknown ) (unknown) (unknown) (no date) (unknown) (unknown) 04:00 (units unknown ) (unknown) (unknown) (no date) (unknown) (unknown) 04:19 05/28/22 (units unknown ) (unknown) (unknown) (no date) (unknown) (unknown) 04:20 (units unknown ) (unknown) (unknown) (no date) (unknown) (unknown) 06:00 05/28/22 (units unknown ) (unknown) (unknown) (no date) (unknown) (unknown) 06:00 (units unknown ) (unknown) (unknown) (no date) (unknown) (unknown) 06:18 05/28/22 (units unknown ) (unknown) (unknown) (no date) (unknown) (unknown) 06:30 05/28/22 (units unknown ) (unknown) (unknown) (no date) (unknown) (unknown) 07:00 (units unknown ) (unknown) (unknown) (no date) (unknown) (unknown) 07:30 05/28/22 (units unknown ) (unknown) (unknown) (no date) (unknown) (unknown) 08:00 05/28/22 (units unknown ) (unknown) (unknown) (no date) (unknown) (unknown) 08:00 (units unknown ) (unknown) (unknown) (no date) (unknown) (unknown) 12:55 13:50 13:50 (units unknown ) (unknown) (unknown) (no date) (unknown) (unknown) 13:50 13:50 13:50 (units unknown ) (unknown) (unknown) (no date) (unknown) (unknown) 14:15 14:40 14:40 (units unknown ) (unknown) (unknown) (no date) (unknown) (unknown) 15:12 16:28 16:50 (units unknown ) (unknown) (unknown) (no date) (unknown) (unknown) 20:00 22:05 04:20 (units unknown ) (unknown) (unknown) (no date) (unknown) (unknown) 6599 (units unknown ) (unknown) (unknown) (no date) (unknown) (unknown) ABD: soft, nontender , nondistended, no organomegaly (units unknown ) (unknown) (unknown) (no date) (unknown) (unknown) ABG Base Excess -15.0 L (units unknown ) (unknown) (unknown) (no date) (unknown) (unknown) ABG Base Excess (units unknown ) (unknown) (unknown) (no date) (unknown) (unknown) ABG HCO3 12 L (units unknown ) (unknown) (unknown) (no date) (unknown) (unknown) ABG HCO3 (units unknown ) (unknown) (unknown) (no date) (unknown) (unknown) ABG O2 Saturation 97 (units unknown ) (unknown) (unknown) (no date) (unknown) (unknown) ABG O2 Saturation (units unknown ) (unknown) (unknown) (no date) (unknown) (unknown) ABG Total CO2 12 L (units unknown ) (unknown) (unknown) (no date) (unknown) (unknown) ABG Total CO2 (units unknown ) (unknown) (unknown) (no date) (unknown) (unknown) ABG pCO2 24.9 L* (units unknown ) (unknown) (unknown) (no date) (unknown) (unknown) ABG pCO2 (units unknown ) (unknown) (unknown) (no date) (unknown) (unknown) ABG pH 7.27 L* (units unknown ) (unknown) (unknown) (no date) (unknown) (unknown) ABG pH (units unknown ) (unknown) (unknown) (no date) (unknown) (unknown) ABG pO2 99 (units unknown ) (unknown) (unknown) (no date) (unknown) (unknown) ABG pO2 (units unknown ) (unknown) (unknown) (no date) (unknown) (unknown) ALT 40 (units unknown ) (unknown) (unknown) (no date) (unknown) (unknown) ALT 44 (units unknown ) (unknown) (unknown) (no date) (unknown) (unknown) ALT (units unknown ) (unknown) (unknown) (no date) (unknown) (unknown) AST 27 (units unknown ) (unknown) (unknown) (no date) (unknown) (unknown) AST 30 (units unknown ) (unknown) (unknown) (no date) (unknown) (unknown) AST (units unknown ) (unknown) (unknown) (no date) (unknown) (unknown) Age/Sex: 56 / M (units unknown ) (unknown) (unknown) (no date) (unknown) (unknown) Albumin 4.1 (units unknown ) (unknown) (unknown) (no date) (unknown) (unknown) Albumin 4.7 (units unknown ) (unknown) (unknown) (no date) (unknown) (unknown) Albumin (units unknown ) (unknown) (unknown) (no date) (unknown) (unknown) Albumin/Globulin Ratio 1.5 (unit s unknown ) (unknown) (unknown) (no date) (unknown) (unknown) Albumin/Globulin Ratio (units unknown ) (unknown) (unknown) (no date) (unknown) (unknown) Alkaline Phosphatase 104 (units unknown ) (unknown) (unknown) (no date) (unknown) (unknown) Alkaline Phosphatase 79 (units unknown ) (unknown) (unknown) (no date) (unknown) (unknown) Alkaline Phosphatase (units unknown ) (unknown) (unknown) (no date) (unknown) (unknown) Amorphous Sediment 1 (units unknown ) (unknown) (unknown) (no date) (unknown) (unknown) Amorphous Sediment (units unknown ) (unknown) (unknown) (no date) (unknown) (unknown) Assessment + Plan narrative: (units unknown ) (unknown) (unknown) (no date) (unknown) (unknown) Assessment + Plan (units unknown ) (unknown) (unknown) (no date) (unknown) (unknown) BUN 22 H (units unknown ) (unknown) (unknown) (no date) (unknown) (unknown) BUN 23 H (units unknown ) (unknown) (unknown) (no date) (unknown) (unknown) BUN 24 H (units unknown ) (unknown) (unknown) (no date) (unknown) (unknown) BUN (units unknown ) (unknown) (unknown) (no date) (unknown) (unknown) BUN/Creatinine Ratio 20.0 (units unknown ) (unknown) (unknown) (no date) (unknown) (unknown) BUN/Creatinine Ratio 21.4 (units unknown ) (unknown) (unknown) (no date) (unknown) (unknown) BUN/Creatinine Ratio 23.2 H (units unknown ) (unknown) (unknown) (no date) (unknown) (unknown) BUN/Creatinine Ratio 24.2 H (units unknown ) (unknown) (unknown) (no date) (unknown) (unknown) BUN/Creatinine Ratio (units unknown ) (unknown) (unknown) (no date) (unknown) (unknown) Baso # (Auto) 0 (units unknown ) (unknown) (unknown) (no date) (unknown) (unknown) Baso # (Auto) 100 (units unknown ) (unknown) (unknown) (no date) (unknown) (unknown) Baso # (Auto) (units unknown ) (unknown) (unknown) (no date) (unknown) (unknown) Baso % (Auto) 0.4 (units unknown ) (unknown) (unknown) (no date) (unknown) (unknown) Baso % (Auto) 0.5 (units unknown ) (unknown) (unknown) (no date) (unknown) (unknown) Baso % (Auto) (units unknown ) (unknown) (unknown) (no date) (unknown) (unknown) Blood Pressure 114/63 (units unknown ) (unknown) (unknown) (no date) (unknown) (unknown) Blood Pressure 120/60 (units unknown ) (unknown) (unknown) (no date) (unknown) (unknown) Blood Pressure 125/61 (units unknown ) (unknown) (unknown) (no date) (unknown) (unknown) Blood Pressure 96/51 L (units unknown ) (unknown) (unknown) (no date) (unknown) (unknown) Blood Pressure 97/54 L (units unknown ) (unknown) (unknown) (no date) (unknown) (unknown) Blood Pressure (units unknown ) (unknown) (unknown) (no date) (unknown) (unknown) CK-MB (CK-2) Rel Index TNP (unit s unknown ) (unknown) (unknown) (no date) (unknown) (unknown) CK-MB (CK-2) Rel Index (units unknown ) (unknown) (unknown) (no date) (unknown) (unknown) CK-MB (CK-2) TNP (units unknown ) (unknown) (unknown) (no date) (unknown) (unknown) CK-MB (CK-2) (units unknown ) (unknown) (unknown) (no date) (unknown) (unknown) COVID negative. (units unknown ) (unknown) (unknown) (no date) (unknown) (unknown) CV: regular rate and rhythm, no murmurs (units unknown ) (unknown) (unknown) (no date) (unknown) (unknown) Calcium 8.1 L (units unknown ) (unknown) (unknown) (no date) (unknown) (unknown) Calcium 8.5 (units unknown ) (unknown) (unknown) (no date) (unknown) (unknown) Calcium 8.8 (units unknown ) (unknown) (unknown) (no date) (unknown) (unknown) Calcium 9.7 (units unknown ) (unknown) (unknown) (no date) (unknown) (unknown) Calcium (units unknown ) (unknown) (unknown) (no date) (unknown) (unknown) Carbon Dioxide 12 L (units unknown ) (unknown) (unknown) (no date) (unknown) (unknown) Carbon Dioxide 21 L (units unknown ) (unknown) (unknown) (no date) (unknown) (unknown) Carbon Dioxide 22 (units unknown ) (unknown) (unknown) (no date) (unknown) (unknown) Carbon Dioxide 8 L* (units unknown ) (unknown) (unknown) (no date) (unknown) (unknown) Carbon Dioxide (units unknown ) (unknown) (unknown) (no date) (unknown) (unknown) Chloride 103 (units unknown ) (unknown) (unknown) (no date) (unknown) (unknown) Chloride 105 (units unknown ) (unknown) (unknown) (no date) (unknown) (unknown) Chloride 106 (units unknown ) (unknown) (unknown) (no date) (unknown) (unknown) Chloride 94 L (units unknown ) (unknown) (unknown) (no date) (unknown) (unknown) Chloride (units unknown ) (unknown) (unknown) (no date) (unknown) (unknown) Code status is full code. (units unknown ) (unknown) (unknown) (no date) (unknown) (unknown) Creatinine 0.91 (units unknown ) (unknown) (unknown) (no date) (unknown) (unknown) Creatinine 0.95 (units unknown ) (unknown) (unknown) (no date) (unknown) (unknown) Creatinine 1.12 (units unknown ) (unknown) (unknown) (no date) (unknown) (unknown) Creatinine 1.15 (units unknown ) (unknown) (unknown) (no date) (unknown) (unknown) Creatinine (units unknown ) (unknown) (unknown) (no date) (unknown) (unknown) Critical Care time: (units unknown ) (unknown) (unknown) (no date) (unknown) (unknown) : 1965 Acct:[id number] (units unknown ) (unknown) (unknown) (no date) (unknown) (unknown) DVT prophylaxis with SCDs. (unit s unknown ) (unknown) (unknown) (no date) (unknown) (unknown) Date of Service: 05/27/22 (units unknown ) (unknown) (unknown) (no date) (unknown) (unknown) Deep Vein Thrombosis/Pulmonary Embolism Present on Admission: No (units unknown ) (unknown) (unknown) (no date) (unknown) (unknown) EXT: warm and well perfused with no edema (units unknown ) (unknown) (unknown) (no date) (unknown) (unknown) Eos # (Auto) 0 (units unknown ) (unknown) (unknown) (no date) (unknown) (unknown) Eos # (Auto) (units unknown ) (unknown) (unknown) (no date) (unknown) (unknown) Eos % (Auto) 0.1 L (units unknown ) (unknown) (unknown) (no date) (unknown) (unknown) Eos % (Auto) 0.2 L (units unknown ) (unknown) (unknown) (no date) (unknown) (unknown) Eos % (Auto) (units unknown ) (unknown) (unknown) (no date) (unknown) (unknown) Estimated GFR > 60 (units unknown ) (unknown) (unknown) (no date) (unknown) (unknown) Estimated GFR (units unknown ) (unknown) (unknown) (no date) (unknown) (unknown) Ethyl Alcohol < 10 (units unknown ) (unknown) (unknown) (no date) (unknown) (unknown) Ethyl Alcohol (units unknown ) (unknown) (unknown) (no date) (unknown) (unknown) Exam Narrative: (units unknown ) (unknown) (unknown) (no date) (unknown) (unknown) Exam (units unknown ) (unknown) (unknown) (no date) (unknown) (unknown) FiO2 21 (units unknown ) (unknown) (unknown) (no date) (unknown) (unknown) FiO2 (units unknown ) (unknown) (unknown) (no date) (unknown) (unknown) GEN: no acute distress (units unknown ) (unknown) (unknown) (no date) (unknown) (unknown) Globulin 2.8 (units unknown ) (unknown) (unknown) (no date) (unknown) (unknown) Globulin 3.1 (units unknown ) (unknown) (unknown) (no date) (unknown) (unknown) Globulin (units unknown ) (unknown) (unknown) (no date) (unknown) (unknown) Glucose 155 H D (units unknown ) (unknown) (unknown) (no date) (unknown) (unknown) Glucose 206 H (units unknown ) (unknown) (unknown) (no date) (unknown) (unknown) Glucose 532 H* (units unknown ) (unknown) (unknown) (no date) (unknown) (unknown) Glucose 731 H* (units unknown ) (unknown) (unknown) (no date) (unknown) (unknown) Glucose (units unknown ) (unknown) (unknown) (no date) (unknown) (unknown) HEJOSE: moist mucous membranes, PERRL (units unknown ) (unknown) (unknown) (no date) (unknown) (unknown) Hct 37.2 L (units unknown ) (unknown) (unknown) (no date) (unknown) (unknown) Hct 44.7 (units unknown ) (unknown) (unknown) (no date) (unknown) (unknown) Hct (units unknown ) (unknown) (unknown) (no date) (unknown) (unknown) Hemoglobin A1c 9.5 H (units unknown ) (unknown) (unknown) (no date) (unknown) (unknown) Hemoglobin A1c (units unknown ) (unknown) (unknown) (no date) (unknown) (unknown) Hgb 12.8 L (units unknown ) (unknown) (unknown) (no date) (unknown) (unknown) Hgb 14.9 (units unknown ) (unknown) (unknown) (no date) (unknown) (unknown) Hgb (units unknown ) (unknown) (unknown) (no date) (unknown) (unknown) I have reviewed home meds and used all available resources to reconcile the home (units unknown ) (unknown) (unknown) (no date) (unknown) (unknown) I spent a total of 3 5 minutes of critical care time on this patient's care (units unknown ) (unknown) (unknown) (no date) (unknown) (unknown) I spent a total of [ ] minutes of critical care time on this patient's care (units unknown ) (unknown) (unknown) (no date) (unknown) (unknown) Insulin dependent di abetes mellitus (units unknown ) (unknown) (unknown) (no date) (unknown) (unknown) [address] [address] (units unknown ) (unknown) (unknown) (no date) (unknown) (unknown) Ketones 6.46 H (units unknown ) (unknown) (unknown) (no date) (unknown) (unknown) Ketones (units unknown ) (unknown) (unknown) (no date) (unknown) (unknown) Laboratory Results - last 24 hr (units unknown ) (unknown) (unknown) (no date) (unknown) (unknown) Labs (units unknown ) (unknown) (unknown) (no date) (unknown) (unknown) Labs: (units unknown ) (unknown) (unknown) (no date) (unknown) (unknown) Lipase 62 (units unknown ) (unknown) (unknown) (no date) (unknown) (unknown) Lipase (units unknown ) (unknown) (unknown) (no date) (unknown) (unknown) Lymph # (Auto) 1400 (units unknown ) (unknown) (unknown) (no date) (unknown) (unknown) Lymph # (Auto) 700 L (units unknown ) (unknown) (unknown) (no date) (unknown) (unknown) Lymph # (Auto) (units unknown ) (unknown) (unknown) (no date) (unknown) (unknown) Lymph % (Auto) 12.5 L (units unknown ) (unknown) (unknown) (no date) (unknown) (unknown) Lymph % (Auto) 6.4 L (units unknown ) (unknown) (unknown) (no date) (unknown) (unknown) Lymph % (Auto) (units unknown ) (unknown) (unknown) (no date) (unknown) (unknown) MCH 29.6 (units unknown ) (unknown) (unknown) (no date) (unknown) (unknown) MCH 29.7 (units unknown ) (unknown) (unknown) (no date) (unknown) (unknown) MCH (units unknown ) (unknown) (unknown) (no date) (unknown) (unknown) MCHC 33.3 (units unknown ) (unknown) (unknown) (no date) (unknown) (unknown) MCHC 34.4 (units unknown ) (unknown) (unknown) (no date) (unknown) (unknown) MCHC (units unknown ) (unknown) (unknown) (no date) (unknown) (unknown) MCV 86.3 (units unknown ) (unknown) (unknown) (no date) (unknown) (unknown) MCV 89.1 (units unknown ) (unknown) (unknown) (no date) (unknown) (unknown) MCV (units unknown ) (unknown) (unknown) (no date) (unknown) (unknown) Magnesium 1.8 (units unknown ) (unknown) (unknown) (no date) (unknown) (unknown) Magnesium (units unknown ) (unknown) (unknown) (no date) (unknown) (unknown) Medical History (Rev iewed 05/27/22 @ 19:26 by Dalton Graff DO) (units unknown ) (unknown) (unknown) (no date) (unknown) (unknown) [place] # (Auto) 1000 H (units unknown ) (unknown) (unknown) (no date) (unknown) (unknown) [place] # (Auto) 300 (units unknown ) (unknown) (unknown) (no date) (unknown) (unknown) [place] # (Auto) (units unknown ) (unknown) (unknown) (no date) (unknown) (unknown) [place] % (Auto) 2.7 L (units unknown ) (unknown) (unknown) (no date) (unknown) (unknown) [place] % (Auto) 9.0 (units unknown ) (unknown) (unknown) (no date) (unknown) (unknown) [place] % (Auto) (units unknown ) (unknown) (unknown) (no date) (unknown) (unknown) NECK: trachea midlin e, no JVD (units unknown ) (unknown) (unknown) (no date) (unknown) (unknown) NEURO: awake, alert, oriented, no focal deficits (units unknown ) (unknown) (unknown) (no date) (unknown) (unknown) Narrative (units unknown ) (unknown) (unknown) (no date) (unknown) (unknown) Nasal Screen MRSA (P CR) Not detected (units unknown ) (unknown) (unknown) (no date) (unknown) (unknown) Nasal Screen MRSA (PCR) (units unknown ) (unknown) (unknown) (no date) (unknown) (unknown) Neut # (Auto) [address] H (units unknown ) (unknown) (unknown) (no date) (unknown) (unknown) Neut # (Auto) 8900 H (units unknown ) (unknown) (unknown) (no date) (unknown) (unknown) Neut # (Auto) (units unknown ) (unknown) (unknown) (no date) (unknown) (unknown) Neut % (Auto) 77.9 H (units unknown ) (unknown) (unknown) (no date) (unknown) (unknown) Neut % (Auto) 90.3 H (units unknown ) (unknown) (unknown) (no date) (unknown) (unknown) Neut % (Auto) (units unknown ) (unknown) (unknown) (no date) (unknown) (unknown) Objective (units unknown ) (unknown) (unknown) (no date) (unknown) (unknown) Oxygen Delivery Meth od Room Air (units unknown ) (unknown) (unknown) (no date) (unknown) (unknown) PFSH (units unknown ) (unknown) (unknown) (no date) (unknown) (unknown) PULM: clear bilaterally (units unknown ) (unknown) (unknown) (no date) (unknown) (unknown) Patient: Avinash Meredith MR#: [id number] (units unknown ) (unknown) (unknown) (no date) (unknown) (unknown) Phosphorus 3.6 (units unknown ) (unknown) (unknown) (no date) (unknown) (unknown) Phosphorus (units unknown ) (unknown) (unknown) (no date) (unknown) (unknown) Plt Count 233 (units unknown ) (unknown) (unknown) (no date) (unknown) (unknown) Plt Count 243 (units unknown ) (unknown) (unknown) (no date) (unknown) (unknown) Plt Count (units unknown ) (unknown) (unknown) (no date) (unknown) (unknown) Potassium 3.9 (units unknown ) (unknown) (unknown) (no date) (unknown) (unknown) Potassium 4.4 (units unknown ) (unknown) (unknown) (no date) (unknown) (unknown) Potassium 5.0 (units unknown ) (unknown) (unknown) (no date) (unknown) (unknown) Potassium (units unknown ) (unknown) (unknown) (no date) (unknown) (unknown) Progress Note (units unknown ) (unknown) (unknown) (no date) (unknown) (unknown) Provider: Mckinley Coles D.O. (units unknown ) (unknown) (unknown) (no date) (unknown) (unknown) Proxy is jovanna Cardozo. (units unknown ) (unknown) (unknown) (no date) (unknown) (unknown) Pulse Oximetry 100 (units unknown ) (unknown) (unknown) (no date) (unknown) (unknown) Pulse Oximetry 97 (units unknown ) (unknown) (unknown) (no date) (unknown) (unknown) Pulse Oximetry (units unknown ) (unknown) (unknown) (no date) (unknown) (unknown) Pulse Rate 64 64 65 (units unknown ) (unknown) (unknown) (no date) (unknown) (unknown) Pulse Rate 65 65 (units unknown ) (unknown) (unknown) (no date) (unknown) (unknown) Pulse Rate 66 57 L (units unknown ) (unknown) (unknown) (no date) (unknown) (unknown) Pulse Rate 74 66 (units unknown ) (unknown) (unknown) (no date) (unknown) (unknown) Pulse Rate 81 66 (units unknown ) (unknown) (unknown) (no date) (unknown) (unknown) Quality (units unknown ) (unknown) (unknown) (no date) (unknown) (unknown) RBC 4.31 L (units unknown ) (unknown) (unknown) (no date) (unknown) (unknown) RBC 5.02 (units unknown ) (unknown) (unknown) (no date) (unknown) (unknown) RBC (units unknown ) (unknown) (unknown) (no date) (unknown) (unknown) RDW 13.3 (units unknown ) (unknown) (unknown) (no date) (unknown) (unknown) RDW 13.7 (units unknown ) (unknown) (unknown) (no date) (unknown) (unknown) RDW (units unknown ) (unknown) (unknown) (no date) (unknown) (unknown) Respiratory Rate 15 16 (units unknown ) (unknown) (unknown) (no date) (unknown) (unknown) Respiratory Rate 17 17 18 (units unknown ) (unknown) (unknown) (no date) (unknown) (unknown) Respiratory Rate 18 16 (units unknown ) (unknown) (unknown) (no date) (unknown) (unknown) Respiratory Rate 18 18 (units unknown ) (unknown) (unknown) (no date) (unknown) (unknown) Respiratory Rate 20 16 (units unknown ) (unknown) (unknown) (no date) (unknown) (unknown) Respiratory Rate 31 H 17 (units unknown ) (unknown) (unknown) (no date) (unknown) (unknown) SARS-CoV-2 (PCR) Negative (units unknown ) (unknown) (unknown) (no date) (unknown) (unknown) SARS-CoV-2 (PCR) (units unknown ) (unknown) (unknown) (no date) (unknown) (unknown) Signed By: (units unknown ) (unknown) (unknown) (no date) (unknown) (unknown) Smoking Status: Form er smoker (units unknown ) (unknown) (unknown) (no date) (unknown) (unknown) Social History (Revi ewed 05/27/22 @ 19:26 by Dalton Graff DO) (units unknown ) (unknown) (unknown) (no date) (unknown) (unknown) Sodium 132 L (units unknown ) (unknown) (unknown) (no date) (unknown) (unknown) Sodium 134 L (units unknown ) (unknown) (unknown) (no date) (unknown) (unknown) Sodium 136 L (units unknown ) (unknown) (unknown) (no date) (unknown) (unknown) Sodium (units unknown ) (unknown) (unknown) (no date) (unknown) (unknown) TSH 2.80 (units unknown ) (unknown) (unknown) (no date) (unknown) (unknown) TSH (units unknown ) (unknown) (unknown) (no date) (unknown) (unknown) Temperature 98.2 F (units unknown ) (unknown) (unknown) (no date) (unknown) (unknown) Temperature 98.8 F (units unknown ) (unknown) (unknown) (no date) (unknown) (unknown) Temperature (units unknown ) (unknown) (unknown) (no date) (unknown) (unknown) This patient will be admitted as ICU and will require greater than 2 midnights (units unknown ) (unknown) (unknown) (no date) (unknown) (unknown) Time Spent With Patient (units unknown ) (unknown) (unknown) (no date) (unknown) (unknown) Total Bilirubin 2.2 H (units unknown ) (unknown) (unknown) (no date) (unknown) (unknown) Total Bilirubin 2.7 H (units unknown ) (unknown) (unknown) (no date) (unknown) (unknown) Total Bilirubin (units unknown ) (unknown) (unknown) (no date) (unknown) (unknown) Total Creatine Kinase 57 (units unknown ) (unknown) (unknown) (no date) (unknown) (unknown) Total Creatine Kinase (units unknown ) (unknown) (unknown) (no date) (unknown) (unknown) Total Protein 6.9 (units unknown ) (unknown) (unknown) (no date) (unknown) (unknown) Total Protein 7.8 (units unknown ) (unknown) (unknown) (no date) (unknown) (unknown) Total Protein (units unknown ) (unknown) (unknown) (no date) (unknown) (unknown) Troponin I < 0.012 (units unknown ) (unknown) (unknown) (no date) (unknown) (unknown) Troponin I (units unknown ) (unknown) (unknown) (no date) (unknown) (unknown) U Benzodiazepines Sc rn Negative (units unknown ) (unknown) (unknown) (no date) (unknown) (unknown) U Benzodiazepines Scrn (units unknown ) (unknown) (unknown) (no date) (unknown) (unknown) U Marijuana (THC) Sc reen Positive H (units unknown ) (unknown) (unknown) (no date) (unknown) (unknown) U Marijuana (THC) Screen (units unknown ) (unknown) (unknown) (no date) (unknown) (unknown) U Methamphetamines S crn Negative (units unknown ) (unknown) (unknown) (no date) (unknown) (unknown) U Methamphetamines Scrn (units unknown ) (unknown) (unknown) (no date) (unknown) (unknown) U Opiates 300ng/mL c ut Negative (units unknown ) (unknown) (unknown) (no date) (unknown) (unknown) U Opiates 300ng/mL cut (units unknown ) (unknown) (unknown) (no date) (unknown) (unknown) U Tricyclic Antidepr ess Negative (units unknown ) (unknown) (unknown) (no date) (unknown) (unknown) U Tricyclic Antidepress (units unknown ) (unknown) (unknown) (no date) (unknown) (unknown) Ur Amphetamines Scre en Negative (units unknown ) (unknown) (unknown) (no date) (unknown) (unknown) Ur Amphetamines Screen (units unknown ) (unknown) (unknown) (no date) (unknown) (unknown) Ur Barbiturates Scre en Negative (units unknown ) (unknown) (unknown) (no date) (unknown) (unknown) Ur Barbiturates Screen (units unknown ) (unknown) (unknown) (no date) (unknown) (unknown) Ur Culture Indicated ? Cult not indicated (units unknown ) (unknown) (unknown) (no date) (unknown) (unknown) Ur Culture Indicated? (units unknown ) (unknown) (unknown) (no date) (unknown) (unknown) Ur Leukocyte [place] e Negative (units unknown ) (unknown) (unknown) (no date) (unknown) (unknown) Ur Leukocyte Esterase (units unknown ) (unknown) (unknown) (no date) (unknown) (unknown) Ur MDMA Scrn ([place] y) Negative (units unknown ) (unknown) (unknown) (no date) (unknown) (unknown) Ur MDMA Scrn ([place]) (units unknown ) (unknown) (unknown) (no date) (unknown) (unknown) Ur Oxycodone Screen Negative (units unknown ) (unknown) (unknown) (no date) (unknown) (unknown) Ur Oxycodone Screen (units unknown ) (unknown) (unknown) (no date) (unknown) (unknown) Ur Phencyclidine Scr n Negative (units unknown ) (unknown) (unknown) (no date) (unknown) (unknown) Ur Phencyclidine Scrn (units unknown ) (unknown) (unknown) (no date) (unknown) (unknown) Ur Specific [place] 1.010 (units unknown ) (unknown) (unknown) (no date) (unknown) (unknown) Ur Specific [place] (units unknown ) (unknown) (unknown) (no date) (unknown) (unknown) Urine Appearance Clear (units unknown ) (unknown) (unknown) (no date) (unknown) (unknown) Urine Appearance (units unknown ) (unknown) (unknown) (no date) (unknown) (unknown) Urine Bacteria None seen (units unknown ) (unknown) (unknown) (no date) (unknown) (unknown) Urine Bacteria (units unknown ) (unknown) (unknown) (no date) (unknown) (unknown) Urine Bilirubin Negative (units unknown ) (unknown) (unknown) (no date) (unknown) (unknown) Urine Bilirubin (units unknown ) (unknown) (unknown) (no date) (unknown) (unknown) Urine Cocaine Screen Negative (units unknown ) (unknown) (unknown) (no date) (unknown) (unknown) Urine Cocaine Screen (units unknown ) (unknown) (unknown) (no date) (unknown) (unknown) Urine Color Yellow (units unknown ) (unknown) (unknown) (no date) (unknown) (unknown) Urine Color (units unknown ) (unknown) (unknown) (no date) (unknown) (unknown) Urine Glucose (UA) 3+ H (units unknown ) (unknown) (unknown) (no date) (unknown) (unknown) Urine Glucose (UA) (units unknown ) (unknown) (unknown) (no date) (unknown) (unknown) Urine Ketones 3+ H (units unknown ) (unknown) (unknown) (no date) (unknown) (unknown) Urine Ketones (units unknown ) (unknown) (unknown) (no date) (unknown) (unknown) Urine Methadone Scre en Negative (units unknown ) (unknown) (unknown) (no date) (unknown) (unknown) Urine Methadone Screen (units unknown ) (unknown) (unknown) (no date) (unknown) (unknown) Urine Nitrate Negative (units unknown ) (unknown) (unknown) (no date) (unknown) (unknown) Urine Nitrate (units unknown ) (unknown) (unknown) (no date) (unknown) (unknown) Urine Occult Blood Negative (units unknown ) (unknown) (unknown) (no date) (unknown) (unknown) Urine Occult Blood (units unknown ) (unknown) (unknown) (no date) (unknown) (unknown) Urine Protein Negative (units unknown ) (unknown) (unknown) (no date) (unknown) (unknown) Urine Protein (units unknown ) (unknown) (unknown) (no date) (unknown) (unknown) Urine RBC None seen (units unknown ) (unknown) (unknown) (no date) (unknown) (unknown) Urine RBC (units unknown ) (unknown) (unknown) (no date) (unknown) (unknown) Urine Urobilinogen 0.2 (units unknown ) (unknown) (unknown) (no date) (unknown) (unknown) Urine Urobilinogen (units unknown ) (unknown) (unknown) (no date) (unknown) (unknown) Urine WBC None seen (units unknown ) (unknown) (unknown) (no date) (unknown) (unknown) Urine WBC (units unknown ) (unknown) (unknown) (no date) (unknown) (unknown) Urine pH 6.0 (units unknown ) (unknown) (unknown) (no date) (unknown) (unknown) Urine pH (units unknown ) (unknown) (unknown) (no date) (unknown) (unknown) VBG Base Excess -11.0 L (units unknown ) (unknown) (unknown) (no date) (unknown) (unknown) VBG Base Excess (units unknown ) (unknown) (unknown) (no date) (unknown) (unknown) VBG HCO3 15 L (units unknown ) (unknown) (unknown) (no date) (unknown) (unknown) VBG HCO3 (units unknown ) (unknown) (unknown) (no date) (unknown) (unknown) VBG O2 Saturation 46 L (units unknown ) (unknown) (unknown) (no date) (unknown) (unknown) VBG O2 Saturation (units unknown ) (unknown) (unknown) (no date) (unknown) (unknown) VBG Total CO2 16 L (units unknown ) (unknown) (unknown) (no date) (unknown) (unknown) VBG Total CO2 (units unknown ) (unknown) (unknown) (no date) (unknown) (unknown) VBG pCO2 26.7 L (units unknown ) (unknown) (unknown) (no date) (unknown) (unknown) VBG pCO2 (units unknown ) (unknown) (unknown) (no date) (unknown) (unknown) VBG pH 7.35 (units unknown ) (unknown) (unknown) (no date) (unknown) (unknown) VBG pH (units unknown ) (unknown) (unknown) (no date) (unknown) (unknown) VBG pO2 26 L (units unknown ) (unknown) (unknown) (no date) (unknown) (unknown) VBG pO2 (units unknown ) (unknown) (unknown) (no date) (unknown) (unknown) VTE (units unknown ) (unknown) (unknown) (no date) (unknown) (unknown) Vital Signs (units unknown ) (unknown) (unknown) (no date) (unknown) (unknown) WBC 11.2 H (units unknown ) (unknown) (unknown) (no date) (unknown) (unknown) WBC 11.4 H (units unknown ) (unknown) (unknown) (no date) (unknown) (unknown) WBC (units unknown ) (unknown) (unknown) (no date) (unknown) (unknown) [Embedded Image Not Available] (units unknown ) (unknown) (unknown) (no date) (unknown) (unknown) alcohol intake: current (units unknown ) (unknown) (unknown) (no date) (unknown) (unknown) household members: spouse (units unknown ) (unknown) (unknown) (no date) (unknown) (unknown) meds. (units unknown ) (unknown) (unknown) (no date) (unknown) (unknown) of hospital time to treat DKA. (units unknown ) (unknown) (unknown) (no date) (unknown) (unknown) substance use type: does not use (units unknown ) (unknown) (unknown) (no date) (unknown) (unknown) today; this time is exclusive of procedural time. (units unknown ) (unknown) (unknown) (no date) (unknown) (unknown) toothache for 1 week (units unknown ) (unknown) Result panel 309 (unknown) (no date) (unknown) (unknown) (no value) (units unknown ) (unknown) (unknown) (no date) (unknown) (unknown) # acute DKA (units unknown ) (unknown) (unknown) (no date) (unknown) (unknown) # toothache (units unknown ) (unknown) (unknown) (no date) (unknown) (unknown) # type 1 diabetes (units unknown ) (unknown) (unknown) (no date) (unknown) (unknown) (past 8 hours): (units unknown ) (unknown) (unknown) (no date) (unknown) (unknown) -A1c 9.5% (units unknown ) (unknown) (unknown) (no date) (unknown) (unknown) -blood sugar 731 on admission, anion gap 26, bicarb 12, ketones positive at 6.46 (units unknown ) (unknown) (unknown) (no date) (unknown) (unknown) -continue Rocephin a nd Flagyl (units unknown ) (unknown) (unknown) (no date) (unknown) (unknown) -dietitian consulted (units unknown ) (unknown) (unknown) (no date) (unknown) (unknown) -on insulin protocol (units unknown ) (unknown) (unknown) (no date) (unknown) (unknown) -tele ICU consulted (units unknown ) (unknown) (unknown) (no date) (unknown) (unknown) -transition to subcutaneous insulin once gap closes (units unknown ) (unknown) (unknown) (no date) (unknown) (unknown) -unclear if he has d ental infection which triggered the DKA, as he is noticed a (units unknown ) (unknown) (unknown) (no date) (unknown) (unknown) 05/27/22 05/27/22 05/27/22 (unit s unknown ) (unknown) (unknown) (no date) (unknown) (unknown) 05/27/22 05/27/22 05/28/22 (unit s unknown ) (unknown) (unknown) (no date) (unknown) (unknown) 05/27/22 13:08 (units unknown ) (unknown) (unknown) (no date) (unknown) (unknown) 05/27/22 17:37 (units unknown ) (unknown) (unknown) (no date) (unknown) (unknown) 05/27/22 18:00 (units unknown ) (unknown) (unknown) (no date) (unknown) (unknown) 05/27/22 18:02 (units unknown ) (unknown) (unknown) (no date) (unknown) (unknown) 05/27/22 20:05 (units unknown ) (unknown) (unknown) (no date) (unknown) (unknown) 05/28/22 04:20 (units unknown ) (unknown) (unknown) (no date) (unknown) (unknown) 05/28/22 (units unknown ) (unknown) (unknown) (no date) (unknown) (unknown) 04:00 05/28/22 (units unknown ) (unknown) (unknown) (no date) (unknown) (unknown) 04:19 (units unknown ) (unknown) (unknown) (no date) (unknown) (unknown) 04:20 (units unknown ) (unknown) (unknown) (no date) (unknown) (unknown) 06:00 05/28/22 (units unknown ) (unknown) (unknown) (no date) (unknown) (unknown) 06:18 (units unknown ) (unknown) (unknown) (no date) (unknown) (unknown) 06:30 05/28/22 (units unknown ) (unknown) (unknown) (no date) (unknown) (unknown) 07:00 05/28/22 (units unknown ) (unknown) (unknown) (no date) (unknown) (unknown) 07:00 (units unknown ) (unknown) (unknown) (no date) (unknown) (unknown) 07:30 (units unknown ) (unknown) (unknown) (no date) (unknown) (unknown) 08:00 05/28/22 (units unknown ) (unknown) (unknown) (no date) (unknown) (unknown) 08:30 (units unknown ) (unknown) (unknown) (no date) (unknown) (unknown) 12:55 13:50 13:50 (units unknown ) (unknown) (unknown) (no date) (unknown) (unknown) 13:50 13:50 13:50 (units unknown ) (unknown) (unknown) (no date) (unknown) (unknown) 14:15 14:40 14:40 (units unknown ) (unknown) (unknown) (no date) (unknown) (unknown) 15:12 16:28 16:50 (units unknown ) (unknown) (unknown) (no date) (unknown) (unknown) 20:00 22:05 04:20 (units unknown ) (unknown) (unknown) (no date) (unknown) (unknown) 30 mg PO DAILY (units unknown ) (unknown) (unknown) (no date) (unknown) (unknown) 40 mg PO BEDTIME (units unknown ) (unknown) (unknown) (no date) (unknown) (unknown) 45 mg PO BEDTIME (units unknown ) (unknown) (unknown) (no date) (unknown) (unknown) 6599 (units unknown ) (unknown) (unknown) (no date) (unknown) (unknown) ABD: soft, nontender , nondistended, no organomegaly (units unknown ) (unknown) (unknown) (no date) (unknown) (unknown) ABG Base Excess -15.0 L (units unknown ) (unknown) (unknown) (no date) (unknown) (unknown) ABG Base Excess (units unknown ) (unknown) (unknown) (no date) (unknown) (unknown) ABG HCO3 12 L (units unknown ) (unknown) (unknown) (no date) (unknown) (unknown) ABG HCO3 (units unknown ) (unknown) (unknown) (no date) (unknown) (unknown) ABG O2 Saturation 97 (units unknown ) (unknown) (unknown) (no date) (unknown) (unknown) ABG O2 Saturation (units unknown ) (unknown) (unknown) (no date) (unknown) (unknown) ABG Total CO2 12 L (units unknown ) (unknown) (unknown) (no date) (unknown) (unknown) ABG Total CO2 (units unknown ) (unknown) (unknown) (no date) (unknown) (unknown) ABG pCO2 24.9 L* (units unknown ) (unknown) (unknown) (no date) (unknown) (unknown) ABG pCO2 (units unknown ) (unknown) (unknown) (no date) (unknown) (unknown) ABG pH 7.27 L* (units unknown ) (unknown) (unknown) (no date) (unknown) (unknown) ABG pH (units unknown ) (unknown) (unknown) (no date) (unknown) (unknown) ABG pO2 99 (units unknown ) (unknown) (unknown) (no date) (unknown) (unknown) ABG pO2 (units unknown ) (unknown) (unknown) (no date) (unknown) (unknown) ALT 40 (units unknown ) (unknown) (unknown) (no date) (unknown) (unknown) ALT 44 (units unknown ) (unknown) (unknown) (no date) (unknown) (unknown) ALT (units unknown ) (unknown) (unknown) (no date) (unknown) (unknown) AST 27 (units unknown ) (unknown) (unknown) (no date) (unknown) (unknown) AST 30 (units unknown ) (unknown) (unknown) (no date) (unknown) (unknown) AST (units unknown ) (unknown) (unknown) (no date) (unknown) (unknown) Age/Sex: 56 / M (units unknown ) (unknown) (unknown) (no date) (unknown) (unknown) Albumin 4.1 (units unknown ) (unknown) (unknown) (no date) (unknown) (unknown) Albumin 4.7 (units unknown ) (unknown) (unknown) (no date) (unknown) (unknown) Albumin (units unknown ) (unknown) (unknown) (no date) (unknown) (unknown) Albumin/Globulin Ratio 1.5 (unit s unknown ) (unknown) (unknown) (no date) (unknown) (unknown) Albumin/Globulin Ratio (units unknown ) (unknown) (unknown) (no date) (unknown) (unknown) Alkaline Phosphatase 104 (units unknown ) (unknown) (unknown) (no date) (unknown) (unknown) Alkaline Phosphatase 79 (units unknown ) (unknown) (unknown) (no date) (unknown) (unknown) Alkaline Phosphatase (units unknown ) (unknown) (unknown) (no date) (unknown) (unknown) Amorphous Sediment 1 (units unknown ) (unknown) (unknown) (no date) (unknown) (unknown) Amorphous Sediment (units unknown ) (unknown) (unknown) (no date) (unknown) (unknown) BUN 22 H (units unknown ) (unknown) (unknown) (no date) (unknown) (unknown) BUN 23 H (units unknown ) (unknown) (unknown) (no date) (unknown) (unknown) BUN 24 H (units unknown ) (unknown) (unknown) (no date) (unknown) (unknown) BUN (units unknown ) (unknown) (unknown) (no date) (unknown) (unknown) BUN/Creatinine Ratio 20.0 (units unknown ) (unknown) (unknown) (no date) (unknown) (unknown) BUN/Creatinine Ratio 21.4 (units unknown ) (unknown) (unknown) (no date) (unknown) (unknown) BUN/Creatinine Ratio 23.2 H (units unknown ) (unknown) (unknown) (no date) (unknown) (unknown) BUN/Creatinine Ratio 24.2 H (units unknown ) (unknown) (unknown) (no date) (unknown) (unknown) BUN/Creatinine Ratio (units unknown ) (unknown) (unknown) (no date) (unknown) (unknown) Baso # (Auto) 0 (units unknown ) (unknown) (unknown) (no date) (unknown) (unknown) Baso # (Auto) 100 (units unknown ) (unknown) (unknown) (no date) (unknown) (unknown) Baso # (Auto) (units unknown ) (unknown) (unknown) (no date) (unknown) (unknown) Baso % (Auto) 0.4 (units unknown ) (unknown) (unknown) (no date) (unknown) (unknown) Baso % (Auto) 0.5 (units unknown ) (unknown) (unknown) (no date) (unknown) (unknown) Baso % (Auto) (units unknown ) (unknown) (unknown) (no date) (unknown) (unknown) Blood Pressure 114/63 (units unknown ) (unknown) (unknown) (no date) (unknown) (unknown) Blood Pressure 120/60 (units unknown ) (unknown) (unknown) (no date) (unknown) (unknown) Blood Pressure 125/61 (units unknown ) (unknown) (unknown) (no date) (unknown) (unknown) Blood Pressure (units unknown ) (unknown) (unknown) (no date) (unknown) (unknown) CK-MB (CK-2) Rel Index TNP (unit s unknown ) (unknown) (unknown) (no date) (unknown) (unknown) CK-MB (CK-2) Rel Index (units unknown ) (unknown) (unknown) (no date) (unknown) (unknown) CK-MB (CK-2) TNP (units unknown ) (unknown) (unknown) (no date) (unknown) (unknown) CK-MB (CK-2) (units unknown ) (unknown) (unknown) (no date) (unknown) (unknown) CV: regular rate and rhythm, no murmurs (units unknown ) (unknown) (unknown) (no date) (unknown) (unknown) Calcium 8.1 L (units unknown ) (unknown) (unknown) (no date) (unknown) (unknown) Calcium 8.5 (units unknown ) (unknown) (unknown) (no date) (unknown) (unknown) Calcium 8.8 (units unknown ) (unknown) (unknown) (no date) (unknown) (unknown) Calcium 9.7 (units unknown ) (unknown) (unknown) (no date) (unknown) (unknown) Calcium (units unknown ) (unknown) (unknown) (no date) (unknown) (unknown) Carbon Dioxide 12 L (units unknown ) (unknown) (unknown) (no date) (unknown) (unknown) Carbon Dioxide 21 L (units unknown ) (unknown) (unknown) (no date) (unknown) (unknown) Carbon Dioxide 22 (units unknown ) (unknown) (unknown) (no date) (unknown) (unknown) Carbon Dioxide 8 L* (units unknown ) (unknown) (unknown) (no date) (unknown) (unknown) Carbon Dioxide (units unknown ) (unknown) (unknown) (no date) (unknown) (unknown) Chief complaint: nan st pain/ n+v/ high glucose (units unknown ) (unknown) (unknown) (no date) (unknown) (unknown) Chloride 103 (units unknown ) (unknown) (unknown) (no date) (unknown) (unknown) Chloride 105 (units unknown ) (unknown) (unknown) (no date) (unknown) (unknown) Chloride 106 (units unknown ) (unknown) (unknown) (no date) (unknown) (unknown) Chloride 94 L (units unknown ) (unknown) (unknown) (no date) (unknown) (unknown) Chloride (units unknown ) (unknown) (unknown) (no date) (unknown) (unknown) Comment: (units unknown ) (unknown) (unknown) (no date) (unknown) (unknown) Consult to Dietitian , Adult Routine (units unknown ) (unknown) (unknown) (no date) (unknown) (unknown) Consult to [facility] Routine (units unknown ) (unknown) (unknown) (no date) (unknown) (unknown) Consult to [facility] Stat (units unknown ) (unknown) (unknown) (no date) (unknown) (unknown) Consult to Tele-rn anesthetist Routine (units unknown ) (unknown) (unknown) (no date) (unknown) (unknown) Consulting Provider: [facility] [employer] (units unknown ) (unknown) (unknown) (no date) (unknown) (unknown) Consults: (units unknown ) (unknown) (unknown) (no date) (unknown) (unknown) Continued (units unknown ) (unknown) (unknown) (no date) (unknown) (unknown) Creatinine 0.91 (units unknown ) (unknown) (unknown) (no date) (unknown) (unknown) Creatinine 0.95 (units unknown ) (unknown) (unknown) (no date) (unknown) (unknown) Creatinine 1.12 (units unknown ) (unknown) (unknown) (no date) (unknown) (unknown) Creatinine 1.15 (units unknown ) (unknown) (unknown) (no date) (unknown) (unknown) Creatinine (units unknown ) (unknown) (unknown) (no date) (unknown) (unknown) : 1965 Acct:[id number] (units unknown ) (unknown) (unknown) (no date) (unknown) (unknown) Date Patient Seen: 05/28/22 (units unknown ) (unknown) (unknown) (no date) (unknown) (unknown) Date of Service: 05/27/22 (units unknown ) (unknown) (unknown) (no date) (unknown) (unknown) Date of admission: (units unknown ) (unknown) (unknown) (no date) (unknown) (unknown) Deep Vein Thrombosis/Pulmonary Embolism Present on Admission: No (units unknown ) (unknown) (unknown) (no date) (unknown) (unknown) Discharge Data (units unknown ) (unknown) (unknown) (no date) (unknown) (unknown) Discharge Date: 05/28/22 (units unknown ) (unknown) (unknown) (no date) (unknown) (unknown) Discharge Diagnosis: (units unknown ) (unknown) (unknown) (no date) (unknown) (unknown) Discharge Plan (units unknown ) (unknown) (unknown) (no date) (unknown) (unknown) Discharge Providers (units unknown ) (unknown) (unknown) (no date) (unknown) (unknown) Discharge Summary (units unknown ) (unknown) (unknown) (no date) (unknown) (unknown) Discharge orders + Medications (units unknown ) (unknown) (unknown) (no date) (unknown) (unknown) Discharge provider: (units unknown ) (unknown) (unknown) (no date) (unknown) (unknown) EXT: warm and well perfused with no edema (units unknown ) (unknown) (unknown) (no date) (unknown) (unknown) Eos # (Auto) 0 (units unknown ) (unknown) (unknown) (no date) (unknown) (unknown) Eos # (Auto) (units unknown ) (unknown) (unknown) (no date) (unknown) (unknown) Eos % (Auto) 0.1 L (units unknown ) (unknown) (unknown) (no date) (unknown) (unknown) Eos % (Auto) 0.2 L (units unknown ) (unknown) (unknown) (no date) (unknown) (unknown) Eos % (Auto) (units unknown ) (unknown) (unknown) (no date) (unknown) (unknown) Estimated GFR > 60 (units unknown ) (unknown) (unknown) (no date) (unknown) (unknown) Estimated GFR (units unknown ) (unknown) (unknown) (no date) (unknown) (unknown) Ethyl Alcohol < 10 (units unknown ) (unknown) (unknown) (no date) (unknown) (unknown) Ethyl Alcohol (units unknown ) (unknown) (unknown) (no date) (unknown) (unknown) Exam Narrative: (units unknown ) (unknown) (unknown) (no date) (unknown) (unknown) Exam (units unknown ) (unknown) (unknown) (no date) (unknown) (unknown) FiO2 21 (units unknown ) (unknown) (unknown) (no date) (unknown) (unknown) FiO2 (units unknown ) (unknown) (unknown) (no date) (unknown) (unknown) Follow up/Referrals: (units unknown ) (unknown) (unknown) (no date) (unknown) (unknown) GEN: no acute distress (units unknown ) (unknown) (unknown) (no date) (unknown) (unknown) Globulin 2.8 (units unknown ) (unknown) (unknown) (no date) (unknown) (unknown) Globulin 3.1 (units unknown ) (unknown) (unknown) (no date) (unknown) (unknown) Globulin (units unknown ) (unknown) (unknown) (no date) (unknown) (unknown) Glucose 155 H D (units unknown ) (unknown) (unknown) (no date) (unknown) (unknown) Glucose 206 H (units unknown ) (unknown) (unknown) (no date) (unknown) (unknown) Glucose 532 H* (units unknown ) (unknown) (unknown) (no date) (unknown) (unknown) Glucose 731 H* (units unknown ) (unknown) (unknown) (no date) (unknown) (unknown) Glucose (units unknown ) (unknown) (unknown) (no date) (unknown) (unknown) Dalton Finn MD [Primary Care Provider] - 2 Weeks (units unknown ) (unknown) (unknown) (no date) (unknown) (unknown) HEENT: moist mucous membranes, PERRL (units unknown ) (unknown) (unknown) (no date) (unknown) (unknown) Hct 37.2 L (units unknown ) (unknown) (unknown) (no date) (unknown) (unknown) Hct 44.7 (units unknown ) (unknown) (unknown) (no date) (unknown) (unknown) Hct (units unknown ) (unknown) (unknown) (no date) (unknown) (unknown) He also notes some l eft CP below his nipple which he says 'always happens when I (units unknown ) (unknown) (unknown) (no date) (unknown) (unknown) Hemoglobin A1c 9.5 H (units unknown ) (unknown) (unknown) (no date) (unknown) (unknown) Hemoglobin A1c (units unknown ) (unknown) (unknown) (no date) (unknown) (unknown) Hgb 12.8 L (units unknown ) (unknown) (unknown) (no date) (unknown) (unknown) Hgb 14.9 (units unknown ) (unknown) (unknown) (no date) (unknown) (unknown) Hgb (units unknown ) (unknown) (unknown) (no date) (unknown) (unknown) History of Present Illness (unit s unknown ) (unknown) (unknown) (no date) (unknown) (unknown) Hospital Course (units unknown ) (unknown) (unknown) (no date) (unknown) (unknown) Insulin dependent di abetes mellitus (units unknown ) (unknown) (unknown) (no date) (unknown) (unknown) [address] [address] (units unknown ) (unknown) (unknown) (no date) (unknown) (unknown) Avinash Meredith is a 56-year-old male with past medical history of type 1 diabetes (units unknown ) (unknown) (unknown) (no date) (unknown) (unknown) Ketones 6.46 H (units unknown ) (unknown) (unknown) (no date) (unknown) (unknown) Ketones (units unknown ) (unknown) (unknown) (no date) (unknown) (unknown) Laboratory Results - last 24 hr (units unknown ) (unknown) (unknown) (no date) (unknown) (unknown) Labs (units unknown ) (unknown) (unknown) (no date) (unknown) (unknown) Labs: (units unknown ) (unknown) (unknown) (no date) (unknown) (unknown) Lipase 62 (units unknown ) (unknown) (unknown) (no date) (unknown) (unknown) Lipase (units unknown ) (unknown) (unknown) (no date) (unknown) (unknown) Lymph # (Auto) 1400 (units unknown ) (unknown) (unknown) (no date) (unknown) (unknown) Lymph # (Auto) 700 L (units unknown ) (unknown) (unknown) (no date) (unknown) (unknown) Lymph # (Auto) (units unknown ) (unknown) (unknown) (no date) (unknown) (unknown) Lymph % (Auto) 12.5 L (units unknown ) (unknown) (unknown) (no date) (unknown) (unknown) Lymph % (Auto) 6.4 L (units unknown ) (unknown) (unknown) (no date) (unknown) (unknown) Lymph % (Auto) (units unknown ) (unknown) (unknown) (no date) (unknown) (unknown) MCH 29.6 (units unknown ) (unknown) (unknown) (no date) (unknown) (unknown) MCH 29.7 (units unknown ) (unknown) (unknown) (no date) (unknown) (unknown) MCH (units unknown ) (unknown) (unknown) (no date) (unknown) (unknown) MCHC 33.3 (units unknown ) (unknown) (unknown) (no date) (unknown) (unknown) MCHC 34.4 (units unknown ) (unknown) (unknown) (no date) (unknown) (unknown) MCHC (units unknown ) (unknown) (unknown) (no date) (unknown) (unknown) MCV 86.3 (units unknown ) (unknown) (unknown) (no date) (unknown) (unknown) MCV 89.1 (units unknown ) (unknown) (unknown) (no date) (unknown) (unknown) MCV (units unknown ) (unknown) (unknown) (no date) (unknown) (unknown) Magnesium 1.8 (units unknown ) (unknown) (unknown) (no date) (unknown) (unknown) Magnesium (units unknown ) (unknown) (unknown) (no date) (unknown) (unknown) Rajesh Coles DO (units unknown ) (unknown) (unknown) (no date) (unknown) (unknown) Medical History (Rev iewed 05/27/22 @ 19:26 by Dalton Graff DO) (units unknown ) (unknown) (unknown) (no date) (unknown) (unknown) Dalton Finn MD (units unknown ) (unknown) (unknown) (no date) (unknown) (unknown) [place] # (Auto) 1000 H (units unknown ) (unknown) (unknown) (no date) (unknown) (unknown) [place] # (Auto) 300 (units unknown ) (unknown) (unknown) (no date) (unknown) (unknown) [place] # (Auto) (units unknown ) (unknown) (unknown) (no date) (unknown) (unknown) [place] % (Auto) 2.7 L (units unknown ) (unknown) (unknown) (no date) (unknown) (unknown) [place] % (Auto) 9.0 (units unknown ) (unknown) (unknown) (no date) (unknown) (unknown) [place] % (Auto) (units unknown ) (unknown) (unknown) (no date) (unknown) (unknown) NECK: trachea midlin e, no JVD (units unknown ) (unknown) (unknown) (no date) (unknown) (unknown) NEURO: awake, alert, oriented, no focal deficits (units unknown ) (unknown) (unknown) (no date) (unknown) (unknown) Narrative (units unknown ) (unknown) (unknown) (no date) (unknown) (unknown) Narrative: (units unknown ) (unknown) (unknown) (no date) (unknown) (unknown) Nasal Screen MRSA (P CR) Not detected (units unknown ) (unknown) (unknown) (no date) (unknown) (unknown) Nasal Screen MRSA (PCR) (units unknown ) (unknown) (unknown) (no date) (unknown) (unknown) Neut # (Auto) 85377 H (units unknown ) (unknown) (unknown) (no date) (unknown) (unknown) Neut # (Auto) 8900 H (units unknown ) (unknown) (unknown) (no date) (unknown) (unknown) Neut # (Auto) (units unknown ) (unknown) (unknown) (no date) (unknown) (unknown) Neut % (Auto) 77.9 H (units unknown ) (unknown) (unknown) (no date) (unknown) (unknown) Neut % (Auto) 90.3 H (units unknown ) (unknown) (unknown) (no date) (unknown) (unknown) Neut % (Auto) (units unknown ) (unknown) (unknown) (no date) (unknown) (unknown) Objective (units unknown ) (unknown) (unknown) (no date) (unknown) (unknown) Oxygen Delivery Meth od Room Air (units unknown ) (unknown) (unknown) (no date) (unknown) (unknown) Oxygen Delivery Method (units unknown ) (unknown) (unknown) (no date) (unknown) (unknown) PFSH (units unknown ) (unknown) (unknown) (no date) (unknown) (unknown) PULM: clear bilaterally (units unknown ) (unknown) (unknown) (no date) (unknown) (unknown) Patient Comments: (units unknown ) (unknown) (unknown) (no date) (unknown) (unknown) Patient Disposition: Home (units unknown ) (unknown) (unknown) (no date) (unknown) (unknown) Patient: Avinash Meredith MR#: [id number] (units unknown ) (unknown) (unknown) (no date) (unknown) (unknown) Phosphorus 3.6 (units unknown ) (unknown) (unknown) (no date) (unknown) (unknown) Phosphorus (units unknown ) (unknown) (unknown) (no date) (unknown) (unknown) Plt Count 233 (units unknown ) (unknown) (unknown) (no date) (unknown) (unknown) Plt Count 243 (units unknown ) (unknown) (unknown) (no date) (unknown) (unknown) Plt Count (units unknown ) (unknown) (unknown) (no date) (unknown) (unknown) Potassium 3.9 (units unknown ) (unknown) (unknown) (no date) (unknown) (unknown) Potassium 4.4 (units unknown ) (unknown) (unknown) (no date) (unknown) (unknown) Potassium 5.0 (units unknown ) (unknown) (unknown) (no date) (unknown) (unknown) Potassium (units unknown ) (unknown) (unknown) (no date) (unknown) (unknown) Prescriptions: (units unknown ) (unknown) (unknown) (no date) (unknown) (unknown) Primary Care Provide r: Dalton Finn (units unknown ) (unknown) (unknown) (no date) (unknown) (unknown) Primary care physician: (units unknown ) (unknown) (unknown) (no date) (unknown) (unknown) Provider (units unknown ) (unknown) (unknown) (no date) (unknown) (unknown) Provider: Mckinley Coles D.O. (units unknown ) (unknown) (unknown) (no date) (unknown) (unknown) Pulse Oximetry 100 (units unknown ) (unknown) (unknown) (no date) (unknown) (unknown) Pulse Oximetry 97 (units unknown ) (unknown) (unknown) (no date) (unknown) (unknown) Pulse Oximetry (units unknown ) (unknown) (unknown) (no date) (unknown) (unknown) Pulse Rate 57 L 67 (units unknown ) (unknown) (unknown) (no date) (unknown) (unknown) Pulse Rate 64 65 66 (units unknown ) (unknown) (unknown) (no date) (unknown) (unknown) Pulse Rate 65 81 (units unknown ) (unknown) (unknown) (no date) (unknown) (unknown) Pulse Rate 66 64 (units unknown ) (unknown) (unknown) (no date) (unknown) (unknown) Pulse Rate (units unknown ) (unknown) (unknown) (no date) (unknown) (unknown) Quality (units unknown ) (unknown) (unknown) (no date) (unknown) (unknown) RBC 4.31 L (units unknown ) (unknown) (unknown) (no date) (unknown) (unknown) RBC 5.02 (units unknown ) (unknown) (unknown) (no date) (unknown) (unknown) RBC (units unknown ) (unknown) (unknown) (no date) (unknown) (unknown) RDW 13.3 (units unknown ) (unknown) (unknown) (no date) (unknown) (unknown) RDW 13.7 (units unknown ) (unknown) (unknown) (no date) (unknown) (unknown) RDW (units unknown ) (unknown) (unknown) (no date) (unknown) (unknown) Reason For Exam: rec urrent DKA (units unknown ) (unknown) (unknown) (no date) (unknown) (unknown) Reason for consultat ion: [employer] services (units unknown ) (unknown) (unknown) (no date) (unknown) (unknown) Respiratory Rate 16 19 (units unknown ) (unknown) (unknown) (no date) (unknown) (unknown) Respiratory Rate 16 31 H (units unknown ) (unknown) (unknown) (no date) (unknown) (unknown) Respiratory Rate 17 17 (units unknown ) (unknown) (unknown) (no date) (unknown) (unknown) Respiratory Rate 17 18 20 (units unknown ) (unknown) (unknown) (no date) (unknown) (unknown) Respiratory Rate (units unknown ) (unknown) (unknown) (no date) (unknown) (unknown) Rx Instructions: (units unknown ) (unknown) (unknown) (no date) (unknown) (unknown) SARS-CoV-2 (PCR) Negative (units unknown ) (unknown) (unknown) (no date) (unknown) (unknown) SARS-CoV-2 (PCR) (units unknown ) (unknown) (unknown) (no date) (unknown) (unknown) See Rx Instructions .ROUTE .COMPLEX Qty: 0 (units unknown ) (unknown) (unknown) (no date) (unknown) (unknown) Signed By: (units unknown ) (unknown) (unknown) (no date) (unknown) (unknown) Smoking Status: Form er smoker (units unknown ) (unknown) (unknown) (no date) (unknown) (unknown) Social History (Revi ewed 05/27/22 @ 19:26 by Dalton Graff DO) (units unknown ) (unknown) (unknown) (no date) (unknown) (unknown) Sodium 132 L (units unknown ) (unknown) (unknown) (no date) (unknown) (unknown) Sodium 134 L (units unknown ) (unknown) (unknown) (no date) (unknown) (unknown) Sodium 136 L (units unknown ) (unknown) (unknown) (no date) (unknown) (unknown) Sodium (units unknown ) (unknown) (unknown) (no date) (unknown) (unknown) Stand Alone Forms: P atient Portal/API, Stroke Signs + Symptoms (units unknown ) (unknown) (unknown) (no date) (unknown) (unknown) Summary (units unknown ) (unknown) (unknown) (no date) (unknown) (unknown) TSH 2.80 (units unknown ) (unknown) (unknown) (no date) (unknown) (unknown) TSH (units unknown ) (unknown) (unknown) (no date) (unknown) (unknown) Temperature 98.2 F (units unknown ) (unknown) (unknown) (no date) (unknown) (unknown) Temperature 98.8 F (units unknown ) (unknown) (unknown) (no date) (unknown) (unknown) Temperature (units unknown ) (unknown) (unknown) (no date) (unknown) (unknown) Time Patient Seen: 11:27 (units unknown ) (unknown) (unknown) (no date) (unknown) (unknown) Time Spent with Patient (units unknown ) (unknown) (unknown) (no date) (unknown) (unknown) Time spent: Greater than 30 minutes (units unknown ) (unknown) (unknown) (no date) (unknown) (unknown) Total Bilirubin 2.2 H (units unknown ) (unknown) (unknown) (no date) (unknown) (unknown) Total Bilirubin 2.7 H (units unknown ) (unknown) (unknown) (no date) (unknown) (unknown) Total Bilirubin (units unknown ) (unknown) (unknown) (no date) (unknown) (unknown) Total Creatine Kinase 57 (units unknown ) (unknown) (unknown) (no date) (unknown) (unknown) Total Creatine Kinase (units unknown ) (unknown) (unknown) (no date) (unknown) (unknown) Total Protein 6.9 (units unknown ) (unknown) (unknown) (no date) (unknown) (unknown) Total Protein 7.8 (units unknown ) (unknown) (unknown) (no date) (unknown) (unknown) Total Protein (units unknown ) (unknown) (unknown) (no date) (unknown) (unknown) Troponin I < 0.012 (units unknown ) (unknown) (unknown) (no date) (unknown) (unknown) Troponin I (units unknown ) (unknown) (unknown) (no date) (unknown) (unknown) U Benzodiazepines Sc rn Negative (units unknown ) (unknown) (unknown) (no date) (unknown) (unknown) U Benzodiazepines Scrn (units unknown ) (unknown) (unknown) (no date) (unknown) (unknown) U Marijuana (THC) Sc reen Positive H (units unknown ) (unknown) (unknown) (no date) (unknown) (unknown) U Marijuana (THC) Screen (units unknown ) (unknown) (unknown) (no date) (unknown) (unknown) U Methamphetamines S crn Negative (units unknown ) (unknown) (unknown) (no date) (unknown) (unknown) U Methamphetamines Scrn (units unknown ) (unknown) (unknown) (no date) (unknown) (unknown) U Opiates 300ng/mL c ut Negative (units unknown ) (unknown) (unknown) (no date) (unknown) (unknown) U Opiates 300ng/mL cut (units unknown ) (unknown) (unknown) (no date) (unknown) (unknown) U Tricyclic Antidepr ess Negative (units unknown ) (unknown) (unknown) (no date) (unknown) (unknown) U Tricyclic Antidepress (units unknown ) (unknown) (unknown) (no date) (unknown) (unknown) Ur Amphetamines Scre en Negative (units unknown ) (unknown) (unknown) (no date) (unknown) (unknown) Ur Amphetamines Screen (units unknown ) (unknown) (unknown) (no date) (unknown) (unknown) Ur Barbiturates Scre en Negative (units unknown ) (unknown) (unknown) (no date) (unknown) (unknown) Ur Barbiturates Screen (units unknown ) (unknown) (unknown) (no date) (unknown) (unknown) Ur Culture Indicated ? Cult not indicated (units unknown ) (unknown) (unknown) (no date) (unknown) (unknown) Ur Culture Indicated? (units unknown ) (unknown) (unknown) (no date) (unknown) (unknown) Ur Leukocyte [place] e Negative (units unknown ) (unknown) (unknown) (no date) (unknown) (unknown) Ur Leukocyte Esterase (units unknown ) (unknown) (unknown) (no date) (unknown) (unknown) Ur MDMA Scrn ([place] y) Negative (units unknown ) (unknown) (unknown) (no date) (unknown) (unknown) Ur MDMA Scrn ([place]) (units unknown ) (unknown) (unknown) (no date) (unknown) (unknown) Ur Oxycodone Screen Negative (units unknown ) (unknown) (unknown) (no date) (unknown) (unknown) Ur Oxycodone Screen (units unknown ) (unknown) (unknown) (no date) (unknown) (unknown) Ur Phencyclidine Scr n Negative (units unknown ) (unknown) (unknown) (no date) (unknown) (unknown) Ur Phencyclidine Scrn (units unknown ) (unknown) (unknown) (no date) (unknown) (unknown) Ur Specific [place] 1.010 (units unknown ) (unknown) (unknown) (no date) (unknown) (unknown) Ur Specific [place] (units unknown ) (unknown) (unknown) (no date) (unknown) (unknown) Urine Appearance Clear (units unknown ) (unknown) (unknown) (no date) (unknown) (unknown) Urine Appearance (units unknown ) (unknown) (unknown) (no date) (unknown) (unknown) Urine Bacteria None seen (units unknown ) (unknown) (unknown) (no date) (unknown) (unknown) Urine Bacteria (units unknown ) (unknown) (unknown) (no date) (unknown) (unknown) Urine Bilirubin Negative (units unknown ) (unknown) (unknown) (no date) (unknown) (unknown) Urine Bilirubin (units unknown ) (unknown) (unknown) (no date) (unknown) (unknown) Urine Cocaine Screen Negative (units unknown ) (unknown) (unknown) (no date) (unknown) (unknown) Urine Cocaine Screen (units unknown ) (unknown) (unknown) (no date) (unknown) (unknown) Urine Color Yellow (units unknown ) (unknown) (unknown) (no date) (unknown) (unknown) Urine Color (units unknown ) (unknown) (unknown) (no date) (unknown) (unknown) Urine Glucose (UA) 3+ H (units unknown ) (unknown) (unknown) (no date) (unknown) (unknown) Urine Glucose (UA) (units unknown ) (unknown) (unknown) (no date) (unknown) (unknown) Urine Ketones 3+ H (units unknown ) (unknown) (unknown) (no date) (unknown) (unknown) Urine Ketones (units unknown ) (unknown) (unknown) (no date) (unknown) (unknown) Urine Methadone Scre en Negative (units unknown ) (unknown) (unknown) (no date) (unknown) (unknown) Urine Methadone Screen (units unknown ) (unknown) (unknown) (no date) (unknown) (unknown) Urine Nitrate Negative (units unknown ) (unknown) (unknown) (no date) (unknown) (unknown) Urine Nitrate (units unknown ) (unknown) (unknown) (no date) (unknown) (unknown) Urine Occult Blood Negative (units unknown ) (unknown) (unknown) (no date) (unknown) (unknown) Urine Occult Blood (units unknown ) (unknown) (unknown) (no date) (unknown) (unknown) Urine Protein Negative (units unknown ) (unknown) (unknown) (no date) (unknown) (unknown) Urine Protein (units unknown ) (unknown) (unknown) (no date) (unknown) (unknown) Urine RBC None seen (units unknown ) (unknown) (unknown) (no date) (unknown) (unknown) Urine RBC (units unknown ) (unknown) (unknown) (no date) (unknown) (unknown) Urine Urobilinogen 0.2 (units unknown ) (unknown) (unknown) (no date) (unknown) (unknown) Urine Urobilinogen (units unknown ) (unknown) (unknown) (no date) (unknown) (unknown) Urine WBC None seen (units unknown ) (unknown) (unknown) (no date) (unknown) (unknown) Urine WBC (units unknown ) (unknown) (unknown) (no date) (unknown) (unknown) Urine pH 6.0 (units unknown ) (unknown) (unknown) (no date) (unknown) (unknown) Urine pH (units unknown ) (unknown) (unknown) (no date) (unknown) (unknown) VBG Base Excess -11.0 L (units unknown ) (unknown) (unknown) (no date) (unknown) (unknown) VBG Base Excess (units unknown ) (unknown) (unknown) (no date) (unknown) (unknown) VBG HCO3 15 L (units unknown ) (unknown) (unknown) (no date) (unknown) (unknown) VBG HCO3 (units unknown ) (unknown) (unknown) (no date) (unknown) (unknown) VBG O2 Saturation 46 L (units unknown ) (unknown) (unknown) (no date) (unknown) (unknown) VBG O2 Saturation (units unknown ) (unknown) (unknown) (no date) (unknown) (unknown) VBG Total CO2 16 L (units unknown ) (unknown) (unknown) (no date) (unknown) (unknown) VBG Total CO2 (units unknown ) (unknown) (unknown) (no date) (unknown) (unknown) VBG pCO2 26.7 L (units unknown ) (unknown) (unknown) (no date) (unknown) (unknown) VBG pCO2 (units unknown ) (unknown) (unknown) (no date) (unknown) (unknown) VBG pH 7.35 (units unknown ) (unknown) (unknown) (no date) (unknown) (unknown) VBG pH (units unknown ) (unknown) (unknown) (no date) (unknown) (unknown) VBG pO2 26 L (units unknown ) (unknown) (unknown) (no date) (unknown) (unknown) VBG pO2 (units unknown ) (unknown) (unknown) (no date) (unknown) (unknown) VTE (units unknown ) (unknown) (unknown) (no date) (unknown) (unknown) Visit Report/Dischar ge Packet (units unknown ) (unknown) (unknown) (no date) (unknown) (unknown) Vital Signs (units unknown ) (unknown) (unknown) (no date) (unknown) (unknown) WBC 11.2 H (units unknown ) (unknown) (unknown) (no date) (unknown) (unknown) WBC 11.4 H (units unknown ) (unknown) (unknown) (no date) (unknown) (unknown) WBC (units unknown ) (unknown) (unknown) (no date) (unknown) (unknown) [Embedded Image Not Available] (units unknown ) (unknown) (unknown) (no date) (unknown) (unknown) alcohol intake: current (units unknown ) (unknown) (unknown) (no date) (unknown) (unknown) atorvastatin 40 mg tablet (units unknown ) (unknown) (unknown) (no date) (unknown) (unknown) bicarb of 12. [place] t states he woke up this morning feeling fine, then ate some (units unknown ) (unknown) (unknown) (no date) (unknown) (unknown) breakfast and notice d her BG of >400 so he bolused some insulin through his (units unknown ) (unknown) (unknown) (no date) (unknown) (unknown) currently on an insu alisha drip and is asking for water and feels slightly hungry. (units unknown ) (unknown) (unknown) (no date) (unknown) (unknown) denies NV, SOB, abd pain, dysuria or diarrhea. (units unknown ) (unknown) (unknown) (no date) (unknown) (unknown) denies any issues wi th his insulin pump but says he noticed his roommates had (units unknown ) (unknown) (unknown) (no date) (unknown) (unknown) duloxetine 30 mg Cap nate, Delayed Rel Sprinkle (units unknown ) (unknown) (unknown) (no date) (unknown) (unknown) have DKA'. The CP avery sted a few hours then went away with treatment in the ED. He (units unknown ) (unknown) (unknown) (no date) (unknown) (unknown) household members: spouse (units unknown ) (unknown) (unknown) (no date) (unknown) (unknown) insulin lispro [Frances log U-100 Insulin] 100 UNIT/1 ML solution (units unknown ) (unknown) (unknown) (no date) (unknown) (unknown) insulin pump. He the n began to feel worse with diaphoresis so came to the ED. 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 (units unknown ) (unknown) (unknown) (no date) (unknown) (unknown) to stay above 45 deg kilo. He also notes he has had a toothache for the past (units unknown ) (unknown) (unknown) (no date) (unknown) (unknown) toothache for 1 week (units unknown ) (unknown) (unknown) (no date) (unknown) (unknown) turned down the [facility] ge temp so it was at 42 degrees and his insulin is supposed (units unknown ) (unknown) (unknown) (no date) (unknown) (unknown) week. Hasn't seen a dentist due to his social security check being late. He is (units unknown ) (unknown) (unknown) (no date) (unknown) (unknown) with 3 DKA episodes in the past 6 months who presents with DKA. Anion gap 26, (units unknown ) (unknown) Result panel 310 (unknown) (no date) (unknown) (unknown) (no value) (units unknown ) (unknown) (unknown) (no date) (unknown) (unknown) NO GROWTH AFTER 24 HOURS (units unknown ) (unknown) Result panel 311 (unknown) (no date) (unknown) (unknown) No growth. (units unknown ) (unknown) Result panel 312 (unknown) (no date) (unknown) (unknown) (no value) (units unknown ) (unknown) (unknown) (no date) (unknown) (unknown) NO GROWTH AFTER 48 HOURS (units unknown ) (unknown) Result panel 313 (unknown) (no date) (unknown) (unknown) (no value) (units unknown ) (unknown) (unknown) (no date) (unknown) (unknown) # acute DKA (units unknown ) (unknown) (unknown) (no date) (unknown) (unknown) # toothache (units unknown ) (unknown) (unknown) (no date) (unknown) (unknown) # type 1 diabetes (units unknown ) (unknown) (unknown) (no date) (unknown) (unknown) (past 8 hours): (units unknown ) (unknown) (unknown) (no date) (unknown) (unknown) -A1c 9.5% (units unknown ) (unknown) (unknown) (no date) (unknown) (unknown) -blood sugar 731 on admission, anion gap 26, bicarb 12, ketones positive at 6.46 (units unknown ) (unknown) (unknown) (no date) (unknown) (unknown) -continue Rocephin a nd Flagyl (units unknown ) (unknown) (unknown) (no date) (unknown) (unknown) -dietitian consulted (units unknown ) (unknown) (unknown) (no date) (unknown) (unknown) -discharged on po augmentin (units unknown ) (unknown) (unknown) (no date) (unknown) (unknown) -gap closed after 24 hours and patient put back on home insulin, did well (units unknown ) (unknown) (unknown) (no date) (unknown) (unknown) -on insulin protocol (units unknown ) (unknown) (unknown) (no date) (unknown) (unknown) -unclear if he has d ental infection which triggered the DKA, as he is noticed a (units unknown ) (unknown) (unknown) (no date) (unknown) (unknown) 05/27/22 05/27/22 05/27/22 (unit s unknown ) (unknown) (unknown) (no date) (unknown) (unknown) 05/27/22 05/27/22 05/28/22 (unit s unknown ) (unknown) (unknown) (no date) (unknown) (unknown) 05/27/22 13:08 (units unknown ) (unknown) (unknown) (no date) (unknown) (unknown) 05/27/22 17:37 (units unknown ) (unknown) (unknown) (no date) (unknown) (unknown) 05/27/22 18:00 (units unknown ) (unknown) (unknown) (no date) (unknown) (unknown) 05/27/22 18:02 (units unknown ) (unknown) (unknown) (no date) (unknown) (unknown) 05/27/22 20:05 (units unknown ) (unknown) (unknown) (no date) (unknown) (unknown) 05/28/22 04:20 (units unknown ) (unknown) (unknown) (no date) (unknown) (unknown) 05/28/22 (units unknown ) (unknown) (unknown) (no date) (unknown) (unknown) 05/29/22 1918 (units unknown ) (unknown) (unknown) (no date) (unknown) (unknown) 04:00 05/28/22 (units unknown ) (unknown) (unknown) (no date) (unknown) (unknown) 04:19 (units unknown ) (unknown) (unknown) (no date) (unknown) (unknown) 04:20 (units unknown ) (unknown) (unknown) (no date) (unknown) (unknown) 06:00 05/28/22 (units unknown ) (unknown) (unknown) (no date) (unknown) (unknown) 06:18 (units unknown ) (unknown) (unknown) (no date) (unknown) (unknown) 06:30 05/28/22 (units unknown ) (unknown) (unknown) (no date) (unknown) (unknown) 07:00 05/28/22 (units unknown ) (unknown) (unknown) (no date) (unknown) (unknown) 07:00 (units unknown ) (unknown) (unknown) (no date) (unknown) (unknown) 07:30 (units unknown ) (unknown) (unknown) (no date) (unknown) (unknown) 08:00 05/28/22 (units unknown ) (unknown) (unknown) (no date) (unknown) (unknown) 08:30 (units unknown ) (unknown) (unknown) (no date) (unknown) (unknown) 1 tab PO BID 7 Days Qty: 14 0RF (units unknown ) (unknown) (unknown) (no date) (unknown) (unknown) 12:55 13:50 13:50 (units unknown ) (unknown) (unknown) (no date) (unknown) (unknown) 13:50 13:50 13:50 (units unknown ) (unknown) (unknown) (no date) (unknown) (unknown) 14:15 14:40 14:40 (units unknown ) (unknown) (unknown) (no date) (unknown) (unknown) 15:12 16:28 16:50 (units unknown ) (unknown) (unknown) (no date) (unknown) (unknown) 20:00 22:05 04:20 (units unknown ) (unknown) (unknown) (no date) (unknown) (unknown) 30 mg PO DAILY (units unknown ) (unknown) (unknown) (no date) (unknown) (unknown) 40 mg PO BEDTIME (units unknown ) (unknown) (unknown) (no date) (unknown) (unknown) 45 mg PO BEDTIME (units unknown ) (unknown) (unknown) (no date) (unknown) (unknown) 6599 (units unknown ) (unknown) (unknown) (no date) (unknown) (unknown) ABD: soft, nontender , nondistended, no organomegaly (units unknown ) (unknown) (unknown) (no date) (unknown) (unknown) ABG Base Excess -15.0 L (units unknown ) (unknown) (unknown) (no date) (unknown) (unknown) ABG Base Excess (units unknown ) (unknown) (unknown) (no date) (unknown) (unknown) ABG HCO3 12 L (units unknown ) (unknown) (unknown) (no date) (unknown) (unknown) ABG HCO3 (units unknown ) (unknown) (unknown) (no date) (unknown) (unknown) ABG O2 Saturation 97 (units unknown ) (unknown) (unknown) (no date) (unknown) (unknown) ABG O2 Saturation (units unknown ) (unknown) (unknown) (no date) (unknown) (unknown) ABG Total CO2 12 L (units unknown ) (unknown) (unknown) (no date) (unknown) (unknown) ABG Total CO2 (units unknown ) (unknown) (unknown) (no date) (unknown) (unknown) ABG pCO2 24.9 L* (units unknown ) (unknown) (unknown) (no date) (unknown) (unknown) ABG pCO2 (units unknown ) (unknown) (unknown) (no date) (unknown) (unknown) ABG pH 7.27 L* (units unknown ) (unknown) (unknown) (no date) (unknown) (unknown) ABG pH (units unknown ) (unknown) (unknown) (no date) (unknown) (unknown) ABG pO2 99 (units unknown ) (unknown) (unknown) (no date) (unknown) (unknown) ABG pO2 (units unknown ) (unknown) (unknown) (no date) (unknown) (unknown) ALT 40 (units unknown ) (unknown) (unknown) (no date) (unknown) (unknown) ALT 44 (units unknown ) (unknown) (unknown) (no date) (unknown) (unknown) ALT (units unknown ) (unknown) (unknown) (no date) (unknown) (unknown) AST 27 (units unknown ) (unknown) (unknown) (no date) (unknown) (unknown) AST 30 (units unknown ) (unknown) (unknown) (no date) (unknown) (unknown) AST (units unknown ) (unknown) (unknown) (no date) (unknown) (unknown) Activity: as tolerated (units unknown ) (unknown) (unknown) (no date) (unknown) (unknown) Admitted for DKA and improved after 24 hours on insulin drip. Unclear trigger (units unknown ) (unknown) (unknown) (no date) (unknown) (unknown) Age/Sex: 56 / M (units unknown ) (unknown) (unknown) (no date) (unknown) (unknown) Albumin 4.1 (units unknown ) (unknown) (unknown) (no date) (unknown) (unknown) Albumin 4.7 (units unknown ) (unknown) (unknown) (no date) (unknown) (unknown) Albumin (units unknown ) (unknown) (unknown) (no date) (unknown) (unknown) Albumin/Globulin Ratio 1.5 (unit s unknown ) (unknown) (unknown) (no date) (unknown) (unknown) Albumin/Globulin Ratio (units unknown ) (unknown) (unknown) (no date) (unknown) (unknown) Alkaline Phosphatase 104 (units unknown ) (unknown) (unknown) (no date) (unknown) (unknown) Alkaline Phosphatase 79 (units unknown ) (unknown) (unknown) (no date) (unknown) (unknown) Alkaline Phosphatase (units unknown ) (unknown) (unknown) (no date) (unknown) (unknown) Amorphous Sediment 1 (units unknown ) (unknown) (unknown) (no date) (unknown) (unknown) Amorphous Sediment (units unknown ) (unknown) (unknown) (no date) (unknown) (unknown) BUN 22 H (units unknown ) (unknown) (unknown) (no date) (unknown) (unknown) BUN 23 H (units unknown ) (unknown) (unknown) (no date) (unknown) (unknown) BUN 24 H (units unknown ) (unknown) (unknown) (no date) (unknown) (unknown) BUN (units unknown ) (unknown) (unknown) (no date) (unknown) (unknown) BUN/Creatinine Ratio 20.0 (units unknown ) (unknown) (unknown) (no date) (unknown) (unknown) BUN/Creatinine Ratio 21.4 (units unknown ) (unknown) (unknown) (no date) (unknown) (unknown) BUN/Creatinine Ratio 23.2 H (units unknown ) (unknown) (unknown) (no date) (unknown) (unknown) BUN/Creatinine Ratio 24.2 H (units unknown ) (unknown) (unknown) (no date) (unknown) (unknown) BUN/Creatinine Ratio (units unknown ) (unknown) (unknown) (no date) (unknown) (unknown) Baso # (Auto) 0 (units unknown ) (unknown) (unknown) (no date) (unknown) (unknown) Baso # (Auto) 100 (units unknown ) (unknown) (unknown) (no date) (unknown) (unknown) Baso # (Auto) (units unknown ) (unknown) (unknown) (no date) (unknown) (unknown) Baso % (Auto) 0.4 (units unknown ) (unknown) (unknown) (no date) (unknown) (unknown) Baso % (Auto) 0.5 (units unknown ) (unknown) (unknown) (no date) (unknown) (unknown) Baso % (Auto) (units unknown ) (unknown) (unknown) (no date) (unknown) (unknown) Blood Pressure 114/63 (units unknown ) (unknown) (unknown) (no date) (unknown) (unknown) Blood Pressure 120/60 (units unknown ) (unknown) (unknown) (no date) (unknown) (unknown) Blood Pressure 125/61 (units unknown ) (unknown) (unknown) (no date) (unknown) (unknown) Blood Pressure (units unknown ) (unknown) (unknown) (no date) (unknown) (unknown) CK-MB (CK-2) Rel Index TNP (unit s unknown ) (unknown) (unknown) (no date) (unknown) (unknown) CK-MB (CK-2) Rel Index (units unknown ) (unknown) (unknown) (no date) (unknown) (unknown) CK-MB (CK-2) TNP (units unknown ) (unknown) (unknown) (no date) (unknown) (unknown) CK-MB (CK-2) (units unknown ) (unknown) (unknown) (no date) (unknown) (unknown) CV: regular rate and rhythm, no murmurs (units unknown ) (unknown) (unknown) (no date) (unknown) (unknown) Calcium 8.1 L (units unknown ) (unknown) (unknown) (no date) (unknown) (unknown) Calcium 8.5 (units unknown ) (unknown) (unknown) (no date) (unknown) (unknown) Calcium 8.8 (units unknown ) (unknown) (unknown) (no date) (unknown) (unknown) Calcium 9.7 (units unknown ) (unknown) (unknown) (no date) (unknown) (unknown) Calcium (units unknown ) (unknown) (unknown) (no date) (unknown) (unknown) Carbon Dioxide 12 L (units unknown ) (unknown) (unknown) (no date) (unknown) (unknown) Carbon Dioxide 21 L (units unknown ) (unknown) (unknown) (no date) (unknown) (unknown) Carbon Dioxide 22 (units unknown ) (unknown) (unknown) (no date) (unknown) (unknown) Carbon Dioxide 8 L* (units unknown ) (unknown) (unknown) (no date) (unknown) (unknown) Carbon Dioxide (units unknown ) (unknown) (unknown) (no date) (unknown) (unknown) Chief complaint: nan st pain/ n+v/ high glucose (units unknown ) (unknown) (unknown) (no date) (unknown) (unknown) Chloride 103 (units unknown ) (unknown) (unknown) (no date) (unknown) (unknown) Chloride 105 (units unknown ) (unknown) (unknown) (no date) (unknown) (unknown) Chloride 106 (units unknown ) (unknown) (unknown) (no date) (unknown) (unknown) Chloride 94 L (units unknown ) (unknown) (unknown) (no date) (unknown) (unknown) Chloride (units unknown ) (unknown) (unknown) (no date) (unknown) (unknown) Comment: (units unknown ) (unknown) (unknown) (no date) (unknown) (unknown) Consult to Dietitian , Adult Routine (units unknown ) (unknown) (unknown) (no date) (unknown) (unknown) Consult to [facility] ial Services Routine (units unknown ) (unknown) (unknown) (no date) (unknown) (unknown) Consult to [facility] Services Stat (units unknown ) (unknown) (unknown) (no date) (unknown) (unknown) Consult to Tele-rn anesthetist Routine (units unknown ) (unknown) (unknown) (no date) (unknown) (unknown) Consulting Provider: [facility] (units unknown ) (unknown) (unknown) (no date) (unknown) (unknown) Consults: (units unknown ) (unknown) (unknown) (no date) (unknown) (unknown) Continued (units unknown ) (unknown) (unknown) (no date) (unknown) (unknown) Creatinine 0.91 (units unknown ) (unknown) (unknown) (no date) (unknown) (unknown) Creatinine 0.95 (units unknown ) (unknown) (unknown) (no date) (unknown) (unknown) Creatinine 1.12 (units unknown ) (unknown) (unknown) (no date) (unknown) (unknown) Creatinine 1.15 (units unknown ) (unknown) (unknown) (no date) (unknown) (unknown) Creatinine (units unknown ) (unknown) (unknown) (no date) (unknown) (unknown) : 1965 Acct:[id number] (units unknown ) (unknown) (unknown) (no date) (unknown) (unknown) Date Patient Seen: 05/28/22 (units unknown ) (unknown) (unknown) (no date) (unknown) (unknown) Date of Service: 05/27/22 (units unknown ) (unknown) (unknown) (no date) (unknown) (unknown) Date of admission: (units unknown ) (unknown) (unknown) (no date) (unknown) (unknown) Deep Vein Thrombosis/Pulmonary Embolism Present on Admission: No (units unknown ) (unknown) (unknown) (no date) (unknown) (unknown) Diet/Activity/Treatments (units unknown ) (unknown) (unknown) (no date) (unknown) (unknown) Diet: Carb-consistent/Diabetic (units unknown ) (unknown) (unknown) (no date) (unknown) (unknown) Discharge Data (units unknown ) (unknown) (unknown) (no date) (unknown) (unknown) Discharge Date: 05/28/22 (units unknown ) (unknown) (unknown) (no date) (unknown) (unknown) Discharge Diagnosis: (units unknown ) (unknown) (unknown) (no date) (unknown) (unknown) Discharge Plan (units unknown ) (unknown) (unknown) (no date) (unknown) (unknown) Discharge Providers (units unknown ) (unknown) (unknown) (no date) (unknown) (unknown) Discharge Summary (units unknown ) (unknown) (unknown) (no date) (unknown) (unknown) Discharge orders + Medications (units unknown ) (unknown) (unknown) (no date) (unknown) (unknown) Discharge provider: (units unknown ) (unknown) (unknown) (no date) (unknown) (unknown) EXT: warm and well perfused with no edema (units unknown ) (unknown) (unknown) (no date) (unknown) (unknown) Eos # (Auto) 0 (units unknown ) (unknown) (unknown) (no date) (unknown) (unknown) Eos # (Auto) (units unknown ) (unknown) (unknown) (no date) (unknown) (unknown) Eos % (Auto) 0.1 L (units unknown ) (unknown) (unknown) (no date) (unknown) (unknown) Eos % (Auto) 0.2 L (units unknown ) (unknown) (unknown) (no date) (unknown) (unknown) Eos % (Auto) (units unknown ) (unknown) (unknown) (no date) (unknown) (unknown) Estimated GFR > 60 (units unknown ) (unknown) (unknown) (no date) (unknown) (unknown) Estimated GFR (units unknown ) (unknown) (unknown) (no date) (unknown) (unknown) Ethyl Alcohol < 10 (units unknown ) (unknown) (unknown) (no date) (unknown) (unknown) Ethyl Alcohol (units unknown ) (unknown) (unknown) (no date) (unknown) (unknown) Exam Narrative: (units unknown ) (unknown) (unknown) (no date) (unknown) (unknown) Exam (units unknown ) (unknown) (unknown) (no date) (unknown) (unknown) FiO2 21 (units unknown ) (unknown) (unknown) (no date) (unknown) (unknown) FiO2 (units unknown ) (unknown) (unknown) (no date) (unknown) (unknown) Follow up/Referrals: (units unknown ) (unknown) (unknown) (no date) (unknown) (unknown) GEN: no acute distress (units unknown ) (unknown) (unknown) (no date) (unknown) (unknown) Globulin 2.8 (units unknown ) (unknown) (unknown) (no date) (unknown) (unknown) Globulin 3.1 (units unknown ) (unknown) (unknown) (no date) (unknown) (unknown) Globulin (units unknown ) (unknown) (unknown) (no date) (unknown) (unknown) Glucose 155 H D (units unknown ) (unknown) (unknown) (no date) (unknown) (unknown) Glucose 206 H (units unknown ) (unknown) (unknown) (no date) (unknown) (unknown) Glucose 532 H* (units unknown ) (unknown) (unknown) (no date) (unknown) (unknown) Glucose 731 H* (units unknown ) (unknown) (unknown) (no date) (unknown) (unknown) Glucose (units unknown ) (unknown) (unknown) (no date) (unknown) (unknown) Dalton Finn MD [Primary Care Provider] - 2 Weeks (units unknown ) (unknown) (unknown) (no date) (unknown) (unknown) HEENT: moist mucous membranes, PERRL (units unknown ) (unknown) (unknown) (no date) (unknown) (unknown) Hct 37.2 L (units unknown ) (unknown) (unknown) (no date) (unknown) (unknown) Hct 44.7 (units unknown ) (unknown) (unknown) (no date) (unknown) (unknown) Hct (units unknown ) (unknown) (unknown) (no date) (unknown) (unknown) He also notes some l eft CP below his nipple which he says 'always happens when I (units unknown ) (unknown) (unknown) (no date) (unknown) (unknown) Hemoglobin A1c 9.5 H (units unknown ) (unknown) (unknown) (no date) (unknown) (unknown) Hemoglobin A1c (units unknown ) (unknown) (unknown) (no date) (unknown) (unknown) Hgb 12.8 L (units unknown ) (unknown) (unknown) (no date) (unknown) (unknown) Hgb 14.9 (units unknown ) (unknown) (unknown) (no date) (unknown) (unknown) Hgb (units unknown ) (unknown) (unknown) (no date) (unknown) (unknown) History of Present Illness (unit s unknown ) (unknown) (unknown) (no date) (unknown) (unknown) Hospital Course (units unknown ) (unknown) (unknown) (no date) (unknown) (unknown) Hospital Course: (units unknown ) (unknown) (unknown) (no date) (unknown) (unknown) Insulin dependent di abetes mellitus (units unknown ) (unknown) (unknown) (no date) (unknown) (unknown) [address] [address] (units unknown ) (unknown) (unknown) (no date) (unknown) (unknown) Avinash Meredith is a 56-year-old male with past medical history of type 1 diabetes (units unknown ) (unknown) (unknown) (no date) (unknown) (unknown) Ketones 6.46 H (units unknown ) (unknown) (unknown) (no date) (unknown) (unknown) Ketones (units unknown ) (unknown) (unknown) (no date) (unknown) (unknown) Laboratory Results - last 24 hr (units unknown ) (unknown) (unknown) (no date) (unknown) (unknown) Labs (units unknown ) (unknown) (unknown) (no date) (unknown) (unknown) Labs: (units unknown ) (unknown) (unknown) (no date) (unknown) (unknown) Lipase 62 (units unknown ) (unknown) (unknown) (no date) (unknown) (unknown) Lipase (units unknown ) (unknown) (unknown) (no date) (unknown) (unknown) Lymph # (Auto) 1400 (units unknown ) (unknown) (unknown) (no date) (unknown) (unknown) Lymph # (Auto) 700 L (units unknown ) (unknown) (unknown) (no date) (unknown) (unknown) Lymph # (Auto) (units unknown ) (unknown) (unknown) (no date) (unknown) (unknown) Lymph % (Auto) 12.5 L (units unknown ) (unknown) (unknown) (no date) (unknown) (unknown) Lymph % (Auto) 6.4 L (units unknown ) (unknown) (unknown) (no date) (unknown) (unknown) Lymph % (Auto) (units unknown ) (unknown) (unknown) (no date) (unknown) (unknown) MCH 29.6 (units unknown ) (unknown) (unknown) (no date) (unknown) (unknown) MCH 29.7 (units unknown ) (unknown) (unknown) (no date) (unknown) (unknown) MCH (units unknown ) (unknown) (unknown) (no date) (unknown) (unknown) MCHC 33.3 (units unknown ) (unknown) (unknown) (no date) (unknown) (unknown) MCHC 34.4 (units unknown ) (unknown) (unknown) (no date) (unknown) (unknown) MCHC (units unknown ) (unknown) (unknown) (no date) (unknown) (unknown) MCV 86.3 (units unknown ) (unknown) (unknown) (no date) (unknown) (unknown) MCV 89.1 (units unknown ) (unknown) (unknown) (no date) (unknown) (unknown) MCV (units unknown ) (unknown) (unknown) (no date) (unknown) (unknown) Magnesium 1.8 (units unknown ) (unknown) (unknown) (no date) (unknown) (unknown) Magnesium (units unknown ) (unknown) (unknown) (no date) (unknown) (unknown) Rajesh Coles DO (units unknown ) (unknown) (unknown) (no date) (unknown) (unknown) Medical History (Rev iewed 05/27/22 @ 19:26 by Dalton Graff DO) (units unknown ) (unknown) (unknown) (no date) (unknown) (unknown) Dalton Finn MD (units unknown ) (unknown) (unknown) (no date) (unknown) (unknown) [place] # (Auto) 1000 H (units unknown ) (unknown) (unknown) (no date) (unknown) (unknown) [place] # (Auto) 300 (units unknown ) (unknown) (unknown) (no date) (unknown) (unknown) [place] # (Auto) (units unknown ) (unknown) (unknown) (no date) (unknown) (unknown) [place] % (Auto) 2.7 L (units unknown ) (unknown) (unknown) (no date) (unknown) (unknown) [place] % (Auto) 9.0 (units unknown ) (unknown) (unknown) (no date) (unknown) (unknown) [place] % (Auto) (units unknown ) (unknown) (unknown) (no date) (unknown) (unknown) NECK: trachea midlin e, no JVD (units unknown ) (unknown) (unknown) (no date) (unknown) (unknown) NEURO: awake, alert, oriented, no focal deficits (units unknown ) (unknown) (unknown) (no date) (unknown) (unknown) Narrative (units unknown ) (unknown) (unknown) (no date) (unknown) (unknown) Narrative: (units unknown ) (unknown) (unknown) (no date) (unknown) (unknown) Nasal Screen MRSA (P CR) Not detected (units unknown ) (unknown) (unknown) (no date) (unknown) (unknown) Nasal Screen MRSA (PCR) (units unknown ) (unknown) (unknown) (no date) (unknown) (unknown) Neut # (Auto) 67465 H (units unknown ) (unknown) (unknown) (no date) (unknown) (unknown) Neut # (Auto) 8900 H (units unknown ) (unknown) (unknown) (no date) (unknown) (unknown) Neut # (Auto) (units unknown ) (unknown) (unknown) (no date) (unknown) (unknown) Neut % (Auto) 77.9 H (units unknown ) (unknown) (unknown) (no date) (unknown) (unknown) Neut % (Auto) 90.3 H (units unknown ) (unknown) (unknown) (no date) (unknown) (unknown) Neut % (Auto) (units unknown ) (unknown) (unknown) (no date) (unknown) (unknown) New (units unknown ) (unknown) (unknown) (no date) (unknown) (unknown) Objective (units unknown ) (unknown) (unknown) (no date) (unknown) (unknown) Oxygen Delivery Meth od Room Air (units unknown ) (unknown) (unknown) (no date) (unknown) (unknown) Oxygen Delivery Method (units unknown ) (unknown) (unknown) (no date) (unknown) (unknown) PFSH (units unknown ) (unknown) (unknown) (no date) (unknown) (unknown) PULM: clear bilaterally (units unknown ) (unknown) (unknown) (no date) (unknown) (unknown) Patient Comments: (units unknown ) (unknown) (unknown) (no date) (unknown) (unknown) Patient Disposition: Home (units unknown ) (unknown) (unknown) (no date) (unknown) (unknown) Patient: Avinash Meredith MR#: [id number] (units unknown ) (unknown) (unknown) (no date) (unknown) (unknown) Phosphorus 3.6 (units unknown ) (unknown) (unknown) (no date) (unknown) (unknown) Phosphorus (units unknown ) (unknown) (unknown) (no date) (unknown) (unknown) Plt Count 233 (units unknown ) (unknown) (unknown) (no date) (unknown) (unknown) Plt Count 243 (units unknown ) (unknown) (unknown) (no date) (unknown) (unknown) Plt Count (units unknown ) (unknown) (unknown) (no date) (unknown) (unknown) Potassium 3.9 (units unknown ) (unknown) (unknown) (no date) (unknown) (unknown) Potassium 4.4 (units unknown ) (unknown) (unknown) (no date) (unknown) (unknown) Potassium 5.0 (units unknown ) (unknown) (unknown) (no date) (unknown) (unknown) Potassium (units unknown ) (unknown) (unknown) (no date) (unknown) (unknown) Prescriptions: (units unknown ) (unknown) (unknown) (no date) (unknown) (unknown) Primary Care Provide r: Dalton Finn (units unknown ) (unknown) (unknown) (no date) (unknown) (unknown) Primary care physician: (units unknown ) (unknown) (unknown) (no date) (unknown) (unknown) Provider Discharge Comment: You presented with DKA which we reversed with an (units unknown ) (unknown) (unknown) (no date) (unknown) (unknown) Provider (units unknown ) (unknown) (unknown) (no date) (unknown) (unknown) Provider: Mckinley Coles D.O. (units unknown ) (unknown) (unknown) (no date) (unknown) (unknown) Pulse Oximetry 100 (units unknown ) (unknown) (unknown) (no date) (unknown) (unknown) Pulse Oximetry 97 (units unknown ) (unknown) (unknown) (no date) (unknown) (unknown) Pulse Oximetry (units unknown ) (unknown) (unknown) (no date) (unknown) (unknown) Pulse Rate 57 L 67 (units unknown ) (unknown) (unknown) (no date) (unknown) (unknown) Pulse Rate 64 65 66 (units unknown ) (unknown) (unknown) (no date) (unknown) (unknown) Pulse Rate 65 81 (units unknown ) (unknown) (unknown) (no date) (unknown) (unknown) Pulse Rate 66 64 (units unknown ) (unknown) (unknown) (no date) (unknown) (unknown) Pulse Rate (units unknown ) (unknown) (unknown) (no date) (unknown) (unknown) Quality (units unknown ) (unknown) (unknown) (no date) (unknown) (unknown) RBC 4.31 L (units unknown ) (unknown) (unknown) (no date) (unknown) (unknown) RBC 5.02 (units unknown ) (unknown) (unknown) (no date) (unknown) (unknown) RBC (units unknown ) (unknown) (unknown) (no date) (unknown) (unknown) RDW 13.3 (units unknown ) (unknown) (unknown) (no date) (unknown) (unknown) RDW 13.7 (units unknown ) (unknown) (unknown) (no date) (unknown) (unknown) RDW (units unknown ) (unknown) (unknown) (no date) (unknown) (unknown) Reason For Exam: rec urrent DKA (units unknown ) (unknown) (unknown) (no date) (unknown) (unknown) Reason for consultat ion: [employer] services (units unknown ) (unknown) (unknown) (no date) (unknown) (unknown) Respiratory Rate 16 19 (units unknown ) (unknown) (unknown) (no date) (unknown) (unknown) Respiratory Rate 16 31 H (units unknown ) (unknown) (unknown) (no date) (unknown) (unknown) Respiratory Rate 17 17 (units unknown ) (unknown) (unknown) (no date) (unknown) (unknown) Respiratory Rate 17 18 20 (units unknown ) (unknown) (unknown) (no date) (unknown) (unknown) Respiratory Rate (units unknown ) (unknown) (unknown) (no date) (unknown) (unknown) Rx Instructions: (units unknown ) (unknown) (unknown) (no date) (unknown) (unknown) SARS-CoV-2 (PCR) Negative (units unknown ) (unknown) (unknown) (no date) (unknown) (unknown) SARS-CoV-2 (PCR) (units unknown ) (unknown) (unknown) (no date) (unknown) (unknown) See Rx Instructions .ROUTE .COMPLEX Qty: 0 (units unknown ) (unknown) (unknown) (no date) (unknown) (unknown) Signed By:<Keven desir signed by Rajesh Coles D.O.> (units unknown ) (unknown) (unknown) (no date) (unknown) (unknown) Smoking Status: Form er smoker (units unknown ) (unknown) (unknown) (no date) (unknown) (unknown) Social History (Revi ewed 05/27/22 @ 19:26 by Dalton Graff DO) (units unknown ) (unknown) (unknown) (no date) (unknown) (unknown) Sodium 132 L (units unknown ) (unknown) (unknown) (no date) (unknown) (unknown) Sodium 134 L (units unknown ) (unknown) (unknown) (no date) (unknown) (unknown) Sodium 136 L (units unknown ) (unknown) (unknown) (no date) (unknown) (unknown) Sodium (units unknown ) (unknown) (unknown) (no date) (unknown) (unknown) Stand Alone Forms: P atient Portal/API, Stroke Signs + Symptoms (units unknown ) (unknown) (unknown) (no date) (unknown) (unknown) Summary (units unknown ) (unknown) (unknown) (no date) (unknown) (unknown) TSH 2.80 (units unknown ) (unknown) (unknown) (no date) (unknown) (unknown) TSH (units unknown ) (unknown) (unknown) (no date) (unknown) (unknown) Temperature 98.2 F (units unknown ) (unknown) (unknown) (no date) (unknown) (unknown) Temperature 98.8 F (units unknown ) (unknown) (unknown) (no date) (unknown) (unknown) Temperature (units unknown ) (unknown) (unknown) (no date) (unknown) (unknown) Time Patient Seen: 11:27 (units unknown ) (unknown) (unknown) (no date) (unknown) (unknown) Time Spent with Patient (units unknown ) (unknown) (unknown) (no date) (unknown) (unknown) Time spent: Greater than 30 minutes (units unknown ) (unknown) (unknown) (no date) (unknown) (unknown) Total Bilirubin 2.2 H (units unknown ) (unknown) (unknown) (no date) (unknown) (unknown) Total Bilirubin 2.7 H (units unknown ) (unknown) (unknown) (no date) (unknown) (unknown) Total Bilirubin (units unknown ) (unknown) (unknown) (no date) (unknown) (unknown) Total Creatine Kinase 57 (units unknown ) (unknown) (unknown) (no date) (unknown) (unknown) Total Creatine Kinase (units unknown ) (unknown) (unknown) (no date) (unknown) (unknown) Total Protein 6.9 (units unknown ) (unknown) (unknown) (no date) (unknown) (unknown) Total Protein 7.8 (units unknown ) (unknown) (unknown) (no date) (unknown) (unknown) Total Protein (units unknown ) (unknown) (unknown) (no date) (unknown) (unknown) Troponin I < 0.012 (units unknown ) (unknown) (unknown) (no date) (unknown) (unknown) Troponin I (units unknown ) (unknown) (unknown) (no date) (unknown) (unknown) U Benzodiazepines Sc rn Negative (units unknown ) (unknown) (unknown) (no date) (unknown) (unknown) U Benzodiazepines Scrn (units unknown ) (unknown) (unknown) (no date) (unknown) (unknown) U Marijuana (THC) Sc reen Positive H (units unknown ) (unknown) (unknown) (no date) (unknown) (unknown) U Marijuana (THC) Screen (units unknown ) (unknown) (unknown) (no date) (unknown) (unknown) U Methamphetamines S crn Negative (units unknown ) (unknown) (unknown) (no date) (unknown) (unknown) U Methamphetamines Scrn (units unknown ) (unknown) (unknown) (no date) (unknown) (unknown) U Opiates 300ng/mL c ut Negative (units unknown ) (unknown) (unknown) (no date) (unknown) (unknown) U Opiates 300ng/mL cut (units unknown ) (unknown) (unknown) (no date) (unknown) (unknown) U Tricyclic Antidepr ess Negative (units unknown ) (unknown) (unknown) (no date) (unknown) (unknown) U Tricyclic Antidepress (units unknown ) (unknown) (unknown) (no date) (unknown) (unknown) Ur Amphetamines Scre en Negative (units unknown ) (unknown) (unknown) (no date) (unknown) (unknown) Ur Amphetamines Screen (units unknown ) (unknown) (unknown) (no date) (unknown) (unknown) Ur Barbiturates Scre en Negative (units unknown ) (unknown) (unknown) (no date) (unknown) (unknown) Ur Barbiturates Screen (units unknown ) (unknown) (unknown) (no date) (unknown) (unknown) Ur Culture Indicated ? Cult not indicated (units unknown ) (unknown) (unknown) (no date) (unknown) (unknown) Ur Culture Indicated? (units unknown ) (unknown) (unknown) (no date) (unknown) (unknown) Ur Leukocyte [place] e Negative (units unknown ) (unknown) (unknown) (no date) (unknown) (unknown) Ur Leukocyte Esterase (units unknown ) (unknown) (unknown) (no date) (unknown) (unknown) Ur MDMA Scrn ([place] y) Negative (units unknown ) (unknown) (unknown) (no date) (unknown) (unknown) Ur MDMA Scrn ([place]) (units unknown ) (unknown) (unknown) (no date) (unknown) (unknown) Ur Oxycodone Screen Negative (units unknown ) (unknown) (unknown) (no date) (unknown) (unknown) Ur Oxycodone Screen (units unknown ) (unknown) (unknown) (no date) (unknown) (unknown) Ur Phencyclidine Scr n Negative (units unknown ) (unknown) (unknown) (no date) (unknown) (unknown) Ur Phencyclidine Scrn (units unknown ) (unknown) (unknown) (no date) (unknown) (unknown) Ur Specific [place] 1.010 (units unknown ) (unknown) (unknown) (no date) (unknown) (unknown) Ur Specific [place] (units unknown ) (unknown) (unknown) (no date) (unknown) (unknown) Urine Appearance Clear (units unknown ) (unknown) (unknown) (no date) (unknown) (unknown) Urine Appearance (units unknown ) (unknown) (unknown) (no date) (unknown) (unknown) Urine Bacteria None seen (units unknown ) (unknown) (unknown) (no date) (unknown) (unknown) Urine Bacteria (units unknown ) (unknown) (unknown) (no date) (unknown) (unknown) Urine Bilirubin Negative (units unknown ) (unknown) (unknown) (no date) (unknown) (unknown) Urine Bilirubin (units unknown ) (unknown) (unknown) (no date) (unknown) (unknown) Urine Cocaine Screen Negative (units unknown ) (unknown) (unknown) (no date) (unknown) (unknown) Urine Cocaine Screen (units unknown ) (unknown) (unknown) (no date) (unknown) (unknown) Urine Color Yellow (units unknown ) (unknown) (unknown) (no date) (unknown) (unknown) Urine Color (units unknown ) (unknown) (unknown) (no date) (unknown) (unknown) Urine Glucose (UA) 3+ H (units unknown ) (unknown) (unknown) (no date) (unknown) (unknown) Urine Glucose (UA) (units unknown ) (unknown) (unknown) (no date) (unknown) (unknown) Urine Ketones 3+ H (units unknown ) (unknown) (unknown) (no date) (unknown) (unknown) Urine Ketones (units unknown ) (unknown) (unknown) (no date) (unknown) (unknown) Urine Methadone Scre en Negative (units unknown ) (unknown) (unknown) (no date) (unknown) (unknown) Urine Methadone Screen (units unknown ) (unknown) (unknown) (no date) (unknown) (unknown) Urine Nitrate Negative (units unknown ) (unknown) (unknown) (no date) (unknown) (unknown) Urine Nitrate (units unknown ) (unknown) (unknown) (no date) (unknown) (unknown) Urine Occult Blood Negative (units unknown ) (unknown) (unknown) (no date) (unknown) (unknown) Urine Occult Blood (units unknown ) (unknown) (unknown) (no date) (unknown) (unknown) Urine Protein Negative (units unknown ) (unknown) (unknown) (no date) (unknown) (unknown) Urine Protein (units unknown ) (unknown) (unknown) (no date) (unknown) (unknown) Urine RBC None seen (units unknown ) (unknown) (unknown) (no date) (unknown) (unknown) Urine RBC (units unknown ) (unknown) (unknown) (no date) (unknown) (unknown) Urine Urobilinogen 0.2 (units unknown ) (unknown) (unknown) (no date) (unknown) (unknown) Urine Urobilinogen (units unknown ) (unknown) (unknown) (no date) (unknown) (unknown) Urine WBC None seen (units unknown ) (unknown) (unknown) (no date) (unknown) (unknown) Urine WBC (units unknown ) (unknown) (unknown) (no date) (unknown) (unknown) Urine pH 6.0 (units unknown ) (unknown) (unknown) (no date) (unknown) (unknown) Urine pH (units unknown ) (unknown) (unknown) (no date) (unknown) (unknown) VBG Base Excess -11.0 L (units unknown ) (unknown) (unknown) (no date) (unknown) (unknown) VBG Base Excess (units unknown ) (unknown) (unknown) (no date) (unknown) (unknown) VBG HCO3 15 L (units unknown ) (unknown) (unknown) (no date) (unknown) (unknown) VBG HCO3 (units unknown ) (unknown) (unknown) (no date) (unknown) (unknown) VBG O2 Saturation 46 L (units unknown ) (unknown) (unknown) (no date) (unknown) (unknown) VBG O2 Saturation (units unknown ) (unknown) (unknown) (no date) (unknown) (unknown) VBG Total CO2 16 L (units unknown ) (unknown) (unknown) (no date) (unknown) (unknown) VBG Total CO2 (units unknown ) (unknown) (unknown) (no date) (unknown) (unknown) VBG pCO2 26.7 L (units unknown ) (unknown) (unknown) (no date) (unknown) (unknown) VBG pCO2 (units unknown ) (unknown) (unknown) (no date) (unknown) (unknown) VBG pH 7.35 (units unknown ) (unknown) (unknown) (no date) (unknown) (unknown) VBG pH (units unknown ) (unknown) (unknown) (no date) (unknown) (unknown) VBG pO2 26 L (units unknown ) (unknown) (unknown) (no date) (unknown) (unknown) VBG pO2 (units unknown ) (unknown) (unknown) (no date) (unknown) (unknown) VTE (units unknown ) (unknown) (unknown) (no date) (unknown) (unknown) Visit Report/Dischar ge Packet (units unknown ) (unknown) (unknown) (no date) (unknown) (unknown) Vital Signs (units unknown ) (unknown) (unknown) (no date) (unknown) (unknown) WBC 11.2 H (units unknown ) (unknown) (unknown) (no date) (unknown) (unknown) WBC 11.4 H (units unknown ) (unknown) (unknown) (no date) (unknown) (unknown) WBC (units unknown ) (unknown) (unknown) (no date) (unknown) (unknown) Will see dentist as outpatient. (units unknown ) (unknown) (unknown) (no date) (unknown) (unknown) [Embedded Image Not Available] (units unknown ) (unknown) (unknown) (no date) (unknown) (unknown) alcohol intake: current (units unknown ) (unknown) (unknown) (no date) (unknown) (unknown) amoxicillin-pot clavulanate 875-125 mg tablet (units unknown ) (unknown) (unknown) (no date) (unknown) (unknown) atorvastatin 40 mg tablet (units unknown ) (unknown) (unknown) (no date) (unknown) (unknown) bicarb of 12. Darryl t states he woke up this morning feeling fine, then ate some (units unknown ) (unknown) (unknown) (no date) (unknown) (unknown) breakfast and notice d her BG of >400 so he bolused some insulin through his (units unknown ) (unknown) (unknown) (no date) (unknown) (unknown) but had a toothache for past week so put on abx to cover for dental infection. (units unknown ) (unknown) (unknown) (no date) (unknown) (unknown) currently on an insu alisha drip and is asking for water and feels slightly hungry. (units unknown ) (unknown) (unknown) (no date) (unknown) (unknown) denies NV, SOB, abd pain, dysuria or diarrhea. (units unknown ) (unknown) (unknown) (no date) (unknown) (unknown) denies any issues wi th his insulin pump but says he noticed his roommates had (units unknown ) (unknown) (unknown) (no date) (unknown) (unknown) duloxetine 30 mg Cap nate, Delayed Rel Sprinkle (units unknown ) (unknown) (unknown) (no date) (unknown) (unknown) have DKA'. The CP avery sted a few hours then went away with treatment in the ED. He (units unknown ) (unknown) (unknown) (no date) (unknown) (unknown) household members: spouse (units unknown ) (unknown) (unknown) (no date) (unknown) (unknown) insulin IV drip. Thi s may have started due to your toothache so I'm putting you (units unknown ) (unknown) (unknown) (no date) (unknown) (unknown) insulin lispro [Frances log U-100 Insulin] 100 UNIT/1 ML solution (units unknown ) (unknown) (unknown) (no date) (unknown) (unknown) insulin pump. He the n began to feel worse with diaphoresis so came to the ED. He (units unknown ) (unknown) (unknown) (no date) (unknown) (unknown) mirtazapine 45 mg tablet (units unknown ) (unknown) (unknown) (no date) (unknown) (unknown) on 1 week of oral antibiotics and you should see a dentist. 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 (units unknown ) (unknown) (unknown) (no date) (unknown) (unknown) to stay above 45 deg kilo. He also notes he has had a toothache for the past (units unknown ) (unknown) (unknown) (no date) (unknown) (unknown) toothache for 1 week (units unknown ) (unknown) (unknown) (no date) (unknown) (unknown) turned down the frid ge temp so it was at 42 degrees and his insulin is supposed (units unknown ) (unknown) (unknown) (no date) (unknown) (unknown) week. Hasn't seen a dentist due to his social security check being late. He is (units unknown ) (unknown) (unknown) (no date) (unknown) (unknown) with 3 DKA episodes in the past 6 months who presents with DKA. Anion gap 26, (units unknown ) (unknown) Result panel 314 (unknown) (no date) (unknown) (unknown) (no value) (units unknown ) (unknown) (unknown) (no date) (unknown) (unknown) NO GROWTH AFTER 72 HOURS (units unknown ) (unknown) Result panel 315 (unknown) (no date) (unknown) (unknown) (no value) (units unknown ) (unknown) (unknown) (no date) (unknown) (unknown) NO GROWTH AFTER 72 HOURS (units unknown ) (unknown) Result panel 316 (unknown) (no date) (unknown) (unknown) (no value) (units unknown ) (unknown) (unknown) (no date) (unknown) (unknown) NO GROWTH AFTER 4 DAYS (units unknown ) (unknown) Result panel 317 (unknown) (no date) (unknown) (unknown) Not Detected (units unknown ) (unknown) Result panel 318 (unknown) (no date) (unknown) (unknown) (no value) (units unknown ) (unknown) (unknown) (no date) (unknown) (unknown) GPBGram positive bacilli (units unknown ) (unknown) (unknown) (no date) (unknown) (unknown) Gram positive bacilli (units unknown ) (unknown) (unknown) (no date) (unknown) (unknown) Identification to follow (units unknown ) (unknown) (unknown) (no date) (unknown) (unknown) Isolated in Anaer[place] c Bott[place] only (units unknown ) (unknown) Result panel 319 (unknown) (no date) (unknown) (unknown) (no value) (units unknown ) (unknown) (unknown) (no date) (unknown) (unknown) DR LUZ (units unknown ) (unknown) (unknown) (no date) (unknown) (unknown) GPBGram positive bacilli (units unknown ) (unknown) (unknown) (no date) (unknown) (unknown) Gram positive bacilli (units unknown ) (unknown) (unknown) (no date) (unknown) (unknown) Identification to follow (units unknown ) (unknown) (unknown) (no date) (unknown) (unknown) Isolated in [place]er[place] c Bott[place] only (units unknown ) (unknown) Result panel 320 (unknown) (no date) (unknown) (unknown) (no value) (units unknown ) (unknown) (unknown) (no date) (unknown) (unknown) NO GROWTH AFTER 5 DAYS (units unknown ) (unknown) Result panel 321 (unknown) (no date) (unknown) (unknown) (no value) (units unknown ) (unknown) (unknown) (no date) (unknown) (unknown) DR LUZ (units unknown ) (unknown) (unknown) (no date) (unknown) (unknown) GPBGram positive bacilli (units unknown ) (unknown) (unknown) (no date) (unknown) (unknown) Gram positive bacilli (units unknown ) (unknown) (unknown) (no date) (unknown) (unknown) Identification to follow (units unknown ) (unknown) (unknown) (no date) (unknown) (unknown) Isolated in [place] Bott[place] only (units unknown ) (unknown) Result panel 322 (unknown) (no date) (unknown) (unknown) (no value) (units unknown ) (unknown) (unknown) (no date) (unknown) (unknown) DR LUZ (units unknown ) (unknown) (unknown) (no date) (unknown) (unknown) Gram positive bacilli (units unknown ) (unknown) (unknown) (no date) (unknown) (unknown) Isolated in [place] only (units unknown ) (unknown) (unknown) (no date) (unknown) (unknown) Only one blood cultu re bottle positive; probable (units unknown ) (unknown) (unknown) (no date) (unknown) (unknown) PROACNPropionibacter ium acnes (units unknown ) (unknown) (unknown) (no date) (unknown) (unknown) contaminant. (units unknown ) (unknown) Result panel 323 (unknown) (no date) (unknown) (unknown) (no value) (units unknown ) (unknown) (unknown) (no date) (unknown) (unknown) DR LUZ (units unknown ) (unknown) (unknown) (no date) (unknown) (unknown) Gram positive bacilli (units unknown ) (unknown) (unknown) (no date) (unknown) (unknown) Isolated in [place] only (units unknown ) (unknown) (unknown) (no date) (unknown) (unknown) PROACNPropionibacter ium acnes (units unknown ) (unknown) Social History date description facility 2022-05-27 00:00 Ex-smoker (finding) [facility] Vital Signs date measurement value units 2022-05-27 [...]
[2022-08-24] MEDS ORDERED: SODIUM CHLORIDE 0.9% 1,000 ML IV STA (00:01)
[2022-08-24] MEDS ORDERED: iohexoL-300 100 ML VIAL ONE (00:11)
[2022-08-24 00:31] LABS: BASOPHILS # (AUTO) 0.1 10^3/uL (0.0-0.1); BASOPHILS % (AUTO) 0.9 %; EOSINOPHILS % (AUTO) 0.4 %; HCT - HEMATOCRIT 38.7 % (42.0-52.0); LYMPHOCYTES # (AUTO) 1.5 10^3/uL (1.5-3.5); LYMPHOCYTES % (AUTO) 18.9 %; MEAN CORPUSCULAR HEMOGLOBIN 29.5 pg (27.0-31.0); MEAN CORPUSCULAR HGB CONC 33.6 g/dL (32.0-36.0); MEAN CORPUSCULAR VOLUME 87.8 fL (80.0-94.0); MEAN PLATELET VOLUME 11.3 fL (7.4-11.4); MONOCYTES # (AUTO) 0.6 10^3/uL (0.0-1.0); NEUTROPHILS # (AUTO) 5.6 10^3/uL (1.5-6.6); NEUTROPHILS % (AUTO) 71.4 %; PLT - PLATELET COUNT 218 10^3/uL (130-450); RED BLOOD COUNT 4.41 10^6/uL (4.70-6.10); RED CELL DISTRIBUTION WIDTH 12.3 % (12.0-15.0); WHITE BLOOD COUNT 7.8 x10^3/uL (4.8-10.8)
[2022-08-24 00:39] LABS: INR 1.1 (0.8-1.2); PT - PROTHROMBIN TIME 12.6 secs (9.9-12.6)
[2022-08-24 00:44] LABS: VBG BASE EXCESS -0.5 mmol/L (-2 - +2); VBG HCO3 25.2 mmol/L (23-28); VBG OXYGEN SATURATION 63.3 % (60-80); VBG PCO2 45.5 mmHg (41-51); VBG PH 7.362 (7.31-7.41); VBG PO2 34.3 mmHg (25-47); VBG TOTAL CO2 26.6 mmol/L (24-29)
[2022-08-24 00:46] LABS: ALBUMIN 3.4 g/dL (3.2-5.5); ALBUMIN/GLOBULIN RATIO 1.3 (1.0-2.2); BILIRUBIN,TOTAL 0.7 mg/dL (0.2-1.0); CALCIUM 8.4 mg/dL (8.5-10.3); CREATININE 1.1 mg/dL (0.6-1.2); POTASSIUM 3.2 mmol/L (3.5-5.0); TOTAL PROTEIN 6.1 g/dL (6.7-8.2)
[2022-08-24] MEDS ORDERED: iohexoL-300 100 ML VIAL IVP ONE (01:15)
--- NOTE | 2022-08-24 01:49 | CT Report ---
PROCEDURE: ANGIO HEAD W/WO INDICATIONS: L sided facial droop CONTRAST: Omni 300 100ml TECHNIQUE: Precontrast 4.5 mm thick angled axial sections acquired from the foramen magnum to the vertex. Afte r the administration of intravenous contrast, 1 mm thick sections acquired through the [place] of [place] is. Postcontrast 4.5 mm thick sections then re-acquired from the foramen magnum to the vertex. 3-di mensional wkeiuph-lhhkyshkb-irzleorqwn (MIP) and/or volume rendering reformats were acquired of the c entral intracranial vasculature. For radiation dose reduction, the following was used: automated ex posure control, adjustment of mA and/or kV according to patient size. COMPARISON: CT head 07/03/22, CT angiogram head 03/19/2019 FINDINGS: Image quality: There is motion artifact limiting evaluation. BRAIN: CSF spaces: Basal cisterns are patent. No extra-axial fluid collections. Ventricles are normal in size and shape. Brain: No intracranial hemorrhage, mass, or mass effect. Mcdaniel-white matter interface appears preser mariam. No abnormal intracranial enhancement. Skull and face: Calvarium and facial bones appear intact, without suspicious lesions. Orbits appear normal. Sinuses: Sinuses and mastoids are clear. HEAD CT ANGIOGRAPHY: Anterior circulation: Intracranial internal carotid arteries are normal in size and appear patent bi laterally. The paired anterior cerebral arteries appear patent bilaterally. The anterior communicat ing artery also appears patent. The middle cerebral arteries appear patent bilaterally. No high-grad e stenosis, occlusion, or filling defects. No cerebral aneurysms identified. Posterior circulation: Visualized portions of the vertebral arteries demonstrate normal caliber, and join to form a patent basilar artery. The posterior cerebral arteries appears patent bilaterally. No high-grade stenosis, occlusion, or filling defects. No cerebral aneurysms identified. IMPRESSION: 1. No acute intracranial abnormality. 2. No high-grade stenosis or occlusion of the central intracranial arteries. Reviewed by: Messi Garcia MD on 08/24/2022 1:48 AM PDT Approved by: Messi Garcia MD on 08/24/2022 1:48 AM PDT Station ID: [id number]
--- NOTE | 2022-08-24 02:19 | ED Physician Documentation ---
History of Present Illness - Stated complaint Stated Complaint: NECK PAIN/FAINTING - Chief complaint Chief Complaint: Trauma Hd/Nk - Additonal information Additional information: Patient is 56-year-old male presenting to the emergency department with chief complaint of neck pain and syncope. He is brought in via EMS. Known type I diabetic with recent hospitalization for diabetic ketoacidosis. Previous hospitalization required right internal jugular central line placement. He reports that earlier today he was doing fine until around 10:30 PM when he was helping family with the preparation of dinner he became acutely dizzy and ligh theaded. He reports that he first slumped down and then sat down in order to try to improve his symptoms but ultimately passed out slumping forward which prompted family to call EMS. He states he has been having right-sided neck pain since removal of the central line approximately 2 days ago. Reports he has been compliant with his current continuous insulin pump and his blood sugars have been well controlled at home in the 1 20-1 50 range. Currently he reports feeling mildly lightheaded but denies any chest pain, heart palpitations or shortness of breath. Review of Systems Constitutional: denies: Fever Eyes: denies: Loss of vision Ears: denies: Loss of hearing Nose: denies: Rhinorrhea / runny nose Throat: denies: Dental pain / toothache Cardiac: denies: Chest pain / pressure Respiratory: denies: Dyspnea GI: denies: Abdominal Pain, Nausea, Vomiting : denies: Dysuria Skin: denies: Rash Musculoskeletal: reports: Neck pain Neurologic: reports: Syncope. denies: Generalized weakness Psychiatric: denies: Depressed Endocrine: denies: Polydypsia Immunocompromised: denies: Immunocompromised PD PAST MEDICAL HISTORY - Past Medical History Cardiovascular: Hypertension, High cholesterol, Arrhythmia, Other Respiratory: Pneumonia Neuro: Dementia, CVA, Fainting, Other Endocrine/Autoimmune: Type 1 diabetes, HyPOthyroidism GI: GERD, Ulcers, Colon polyps : Other HEENT: Other Psych: Depression, Anxiety, ADD/ADHD Musculoskeletal: Chronic back pain, Other Derm: None - Past Surgical History Past Surgical History: Yes General: Colonoscopy Ortho: Carpal Tunnel surgery, Other Cardiovascular: Other HEENT: Other - Present Medications Home Medications: Ambulatory Orders Medication Instructions Recorded Confirmed Atorvastatin Calcium [Lipitor] 80 mg PO QPM 05/30/21 08/20/22 Donepezil HCl [Aricept] 10 mg PO DAILY 05/30/21 08/20/22 Mirtazapine 45 mg PO QPM 05/30/21 08/20/22 DULoxetine [Cymbalta] 30 mg PO DAILY 01/26/22 08/20/22 Tamsulosin [Flomax] 0.4 mg PO DAILY 01/26/22 08/20/22 Albuterol 2.5 mg INH Q4H PRN #30 ml 04/16/22 08/20/22 Albuterol Sulf [Ventolin Hfa 1 - 2 puffs INH Q4HR PRN #1 each 04/16/22 08/20/22 Inhaler] Lisdexamfetamine Dimesylate 20 mg PO DAILY 07/03/22 08/20/22 [Vyvanse] Insulin Lispro 83 unit SUBQ .INSULIN PUMP 07/04/22 08/20/22 Losartan Potassium 25 mg PO DAILY 07/04/22 08/20/22 oxyCODONE [Roxicodone] 5 mg PO ONCE #10 tablet 08/24/22 - Allergies Allergies/Adverse Reactions: Allergies Allergy/AdvReac Type Severity Reaction Status Date / Time omeprazole Allergy Intermediate Nausea Verified 08/19/22 11:50 insulin aspart Allergy Unknown Verified 08/19/22 11:50 [From Novolog U-100 Insulin aspart] insulin aspart protamine Allergy Unknown Verified 08/19/22 11:50 human [From Novolog Mix 70-30 U-100 Insuln] codeine AdvReac Severe Dizziness Verified 08/19/22 11:50 doxycycline AdvReac Intermediate Dizziness Verified 08/19/22 11:50 - Social History Does the pt smoke?: No Smoking Status: Former smoker Does the pt drink ETOH?: No Does the pt have substance abuse?: Yes - Immunizations Immunizations are current?: Yes - POLST Patient has POLST: No POLST Status: Full Code PD ED PE NORMAL - Vitals Vital signs reviewed: Yes - General General: Alert and oriented X 3, No acute distress, Well developed/nourished - HEENT HEENT: Atraumatic, PERRL, EOMI, Ears normal, Moist mucous membranes, Pharynx benign, Dentition benign - Neck Neck: Supple, no meningeal sign, No bony TTP, No adenopathy, Thyroid normal, No JVD, Other (Right internal jugular insertion site for central venous catheter is identified. There is a dressing in place. It is otherwise clean, dry with no indications of infection or hematoma. No crepitation appreciated.) - Cardiac Cardiac: RRR - Respiratory Respiratory: No respiratory distress, Clear bilaterally - Abdomen Abdomen: Normal bowel sounds - Male Male : Deferred, Pt declined - Rectal Rectal: Deferred - Back Back: No CVA TTP - Derm Derm: Normal color - Extremities Extremities: No deformity Results - Vitals Vitals: Vital Signs - 24 hr 08/23/22 23:36 Temperature 36.4 C L Heart Rate 65 Respiratory 19 Rate Blood Pressure 120/80 O2 Saturation 98 Oxygen O2 Source [Without Activity] Room air O2 Source Room air - EKG (time done) 2338 EKG releavant findings:: EKG personally interpreted by author of this note. Relevant findings are: Sinus rhythm with rate 62 bpm. Normal axis. Normal SD, QRS, QTc intervals. No ST segment elevations or T wave inversions. - Labs Labs: Laboratory Tests 08/24/22 08/24/22 08/24/22 00:25 00:25 00:25 WBC 7.8 RBC 4.41 L Hgb 13.0 L Hct 38.7 L MCV 87.8 MCH 29.5 MCHC 33.6 RDW 12.3 Plt Count 218 MPV 11.3 Neut # (Auto) 5.6 Lymph # (Auto) 1.5 [place] # (Auto) 0.6 Eos # (Auto) 0.0 Baso # (Auto) 0.1 Absolute Nucleated RBC 0.00 Nucleated RBC % 0.0 PT 12.6 INR 1.1 VBG pH VBG pCO2 VBG pO2 VBG HCO3 VBG Total CO2 VBG O2 Saturation VBG Base Excess Sodium 139 Potassium 3.2 L Chloride 107 Carbon Dioxide 26 Anion Gap 6.0 BUN 22 H Creatinine 1.1 Estimated GFR (MDRD) 69 L Glucose 62 L Calcium 8.4 L Total Bilirubin 0.7 AST 14 ALT 15 Alkaline Phosphatase 52 Total Creatine Kinase 69 Troponin I High Sens Total Protein 6.1 L Albumin 3.4 Globulin 2.7 Albumin/Globulin Ratio 1.3 Lipase 08/24/22 08/24/22 00:25 00:25 WBC RBC Hgb Hct MCV MCH MCHC RDW Plt Count MPV Neut # (Auto) Lymph # (Auto) [place] # (Auto) Eos # (Auto) Baso # (Auto) Absolute Nucleated RBC Nucleated RBC % PT INR VBG pH 7.362 VBG pCO2 45.5 VBG pO2 34.3 VBG HCO3 25.2 VBG Total CO2 26.6 VBG O2 Saturation 63.3 VBG Base Excess -0.5 Sodium Potassium Chloride Carbon Dioxide Anion Gap BUN Creatinine Estimated GFR (MDRD) Glucose Calcium Total Bilirubin AST ALT Alkaline Phosphatase Total Creatine Kinase Troponin I High Sens 3.7 Total Protein Albumin Globulin Albumin/Globulin Ratio Lipase PD Medical Decision Making - ED course Complexity details: reviewed old records, reviewed results, considered differential, d/w patient ED course: Patient is 56-year-old male with known history insulin-dependent diabetes presenting to the emergency department after syncopal episode at home. Recent hospitalization for DKA. He complained of some right-sided neck pain associated with the insertion site of his central venous catheter that was removed a few days ago. Afebrile, hemodynamically stable on arrival to the emergency department. EKG is on above negative medications of acute cardiac ischemia or dysrhythmia. Labs obtained reassuring and that there is no indication of severe electrolyte abnormality or diabetic ketoacidosis. There is a mild hypokalemia. Patient's high-sensitivity troponin is negative. I did obtain CT angiography of the head and neck which did not demonstrate any significant vascular injury associated with his recent central line. While in the emergency department he reported significant relief in his symptoms and was found sitting up in bed otherwise asymptomatic. He did however have an episode approximately 2-1/2 hours into his ED stay in which she reported feeling as though he was becoming hypoglycemic and his insulin pump read low. His glucose at that time was 54. He was given orange juice and bailey crackers and reported significant improvement in his symptoms. At this time clear etiology for his syncopal event is unsure however it is most consistent with a vasovagal event. He was offered monitoring/hospitalization which Which he declined reporting that he felt well enough to go home. Encouraged prompt return to the emergency department for new or worsening symptoms. Departure - Departure Disposition: 01 Home, Self Care Clinical Impression: Neck pain, Hypoglycemia Syncope Qualifiers: Syncope type: unspecified Qualified Code(s): R55 - Syncope and collapse Prescriptions: oxyCODONE [Roxicodone] 5 mg PO ONCE #10 tablet Comments: Thank you for allowing us to care for you today at [facility]. Today in the Emergency department your evaluated for any possible life- threatening medical emergency. The testing performed on arrival to the emergency department including your EKG and lab work were reassuring. The CT scan did not show any indication of acute injury and it is very reassuring that you are feeling better. I am concerned about the episode of hypoglycemia you had while in the emergency department. I know we discussed continued monitoring or hospitalization is needed at this time we feel more comfortable going home. I understand this decision but I do want to tell you that if you have a similar episode of hypoglycemia at home or if you have another episode of syncope and collapse is importantly return to the emergency department for reevaluation. I have sent some medication to help with your neck pain to your preferred pharmacy, please be aware that this medication, Roxicodone, is a strong narcotic painkiller that is both habit-forming and sedating. It should not be used if you are operating a motor vehicle, using of a machinery or you are the sole staff radiation therapist of young children. Please do follow-up with your primary care doctor soon as possible concerning her ED visit. Again if it anytime you develop any new or worsening symptoms please not hesitate to return to the emergency department.
[2022-08-24 02:55] VITALS: BP 148/80
--- NOTE | 2022-08-24 10:12 | ED Physician Documentation ---
ED Addendum - Addendum Addendum: 08/24/22 10:10 There was a problem with the narcotic prescription sent to the pharmacy, directions that 5 mg p.o. once, dispense 10 pills. This was changed to 5 mg p.o. every 6 hours as needed pain, dispense #10. Prescription was resent. Departure - Departure Disposition: 01 Home, Self Care Clinical Impression: Neck pain, Hypoglycemia Syncope Qualifiers: Syncope type: unspecified Qualified Code(s): R55 - Syncope and collapse Prescriptions: oxyCODONE [Roxicodone] 5 mg PO Q6H PRN #10 tablet MDD 6 PRN Reason: pain Comments: Thank you for allowing us to care for you today at [facility]. Today in the Emergency department your evaluated for any possible life- threatening medical emergency. The testing performed on arrival to the emergency department including your EKG and lab work were reassuring. The CT scan did not show any indication of acute injury and it is very reassuring that you are feeling better. I am concerned about the episode of hypoglycemia you had while in the emergency department. I know we discussed continued monitoring or hospitalization is needed at this time we feel more comfortable going home. I understand this decision but I do want to tell you that if you have a similar episode of hypoglycemia at home or if you have another episode of syncope and collapse is importantly return to the emergency department for reevaluation. I have sent some medication to help with your neck pain to your preferred pharmacy, please be aware that this medication, Roxicodone, is a strong narcotic painkiller that is both habit-forming and sedating. It should not be used if you are operating a motor vehicle, using of a machinery or you are the sole disability benefits specialist of young children. Please do follow-up with your primary care doctor soon as possible concerning her ED visit. Again if it anytime you develop any new or worsening symptoms please not hesitate to return to the emergency department. Discharge Date/Time: 08/24/22 03:03
== END 2022-08-24 03:03 | disposition home or self-care (01) ==
LOC: ED 23:30
DX: R55 Syncope and collapse (principal); M54.2 Cervicalgia; E10.649 Type 1 diabetes mellitus with hypoglycemia without coma; E87.6 Hypokalemia; Z96.41 Presence of insulin pump (external) (internal); Z87.891 Personal history of nicotine dependence
CPT/HCPCS: 36415; 70496; 80053; 82550; 82803; 83690; 84484; 85025; 85610; 93005; 96360; 96361; 99284; Q9967

== ENCOUNTER 2022-10-11 14:57 | Emergency (ER) | payer MEDICARE ==
[2022-10-11] MEDS ORDERED: SODIUM CHLORIDE 0.9% 1,000 ML IV STA (15:12)
--- NOTE | 2022-10-11 15:13 | ED Physician Documentation ---
History of Present Illness - Stated complaint Stated Complaint: SOA,VOMITING,SLURRED SPEECH - Chief complaint Chief Complaint: General - Additonal information Additional information: 57-year-old gentleman who has relatively frequent episodes of DKA. He got very busy this morning and he noticed his pump was almost out of insulin so he took it off but then forgot to put it back on for several hours. It is on now but his blood sugars were reading high, short of breath and vomited once. PD PAST MEDICAL HISTORY - Past Medical History Cardiovascular: Hypertension, High cholesterol, Arrhythmia, Other Respiratory: Pneumonia Neuro: Dementia, CVA, Fainting, Other Endocrine/Autoimmune: Type 1 diabetes, HyPOthyroidism GI: GERD, Ulcers, Colon polyps : Other HEENT: Other Psych: Depression, Anxiety, ADD/ADHD Musculoskeletal: Chronic back pain, Other Derm: None - Past Surgical History Past Surgical History: Yes General: Colonoscopy Ortho: Carpal Tunnel surgery, Other Cardiovascular: Other HEENT: Other - Present Medications Home Medications: Ambulatory Orders Medication Instructions Recorded Confirmed Atorvastatin Calcium [Lipitor] 80 mg PO QPM 05/30/21 08/20/22 Donepezil HCl [Aricept] 10 mg PO DAILY 05/30/21 08/20/22 Mirtazapine 45 mg PO QPM 05/30/21 08/20/22 DULoxetine [Cymbalta] 30 mg PO DAILY 01/26/22 08/20/22 Tamsulosin [Flomax] 0.4 mg PO DAILY 01/26/22 08/20/22 Albuterol 2.5 mg INH Q4H PRN #30 ml 04/16/22 08/20/22 Albuterol Sulf [Ventolin Hfa 1 - 2 puffs INH Q4HR PRN #1 each 04/16/22 08/20/22 Inhaler] Lisdexamfetamine Dimesylate 20 mg PO DAILY 07/03/22 08/20/22 [Vyvanse] Insulin Lispro 83 unit SUBQ .INSULIN PUMP 07/04/22 08/20/22 Losartan Potassium 25 mg PO DAILY 07/04/22 08/20/22 oxyCODONE [Roxicodone] 5 mg PO Q6H PRN #10 tablet MDD 6 08/24/22 - Allergies Allergies/Adverse Reactions: Allergies Allergy/AdvReac Type Severity Reaction Status Date / Time omeprazole Allergy Intermediate Nausea Verified 10/11/22 15:07 insulin aspart Allergy Unknown Verified 10/11/22 15:07 [From Novolog U-100 Insulin aspart] insulin aspart protamine Allergy Unknown Verified 10/11/22 15:07 human [From Novolog Mix 70-30 U-100 Insuln] codeine AdvReac Severe Dizziness Verified 10/11/22 15:07 doxycycline AdvReac Intermediate Dizziness Verified 10/11/22 15:07 - Social History Does the pt smoke?: No Smoking Status: Former smoker Does the pt drink ETOH?: No Does the pt have substance abuse?: Yes - Immunizations Immunizations are current?: Yes - POLST Patient has POLST: No POLST Status: Full Code PD ED PE NORMAL - Vitals Vital signs reviewed: Yes - General General: Alert and oriented X 3, Other (Tachypneic with Kuss[place]uls respirations) - HEENT HEENT: PERRL - Cardiac Cardiac: RRR, No murmur - Respiratory Respiratory: Clear bilaterally, Other (tachypneic) - Abdomen Abdomen: Soft, Non tender - Back Back: No CVA TTP, No spinal TTP - Derm Derm: Normal color, Warm and dry - Extremities Extremities: No edema, No calf tenderness / cord - Neuro Neuro: Alert and oriented X 3, Normal speech Results - Vitals Vitals: Vital Signs - 24 hr 10/11/22 10/11/22 10/11/22 15:07 15:58 16:47 Temperature 36.5 C Heart Rate 72 67 73 Respiratory 24 14 19 Rate Blood Pressure 119/69 124/93 H 124/96 H O2 Saturation 99 99 99 Oxygen O2 Source [Without Activity] Room air O2 Source Room air - Labs Labs: Laboratory Tests 10/11/22 10/11/22 10/11/22 15:17 15:40 15:40 WBC 8.2 RBC 4.71 Hgb 13.9 L Hct 41.3 L MCV 87.7 MCH 29.5 MCHC 33.7 RDW 12.0 Plt Count 213 MPV 12.0 H Neut # (Auto) 6.8 H Lymph # (Auto) 0.9 L [place] # (Auto) 0.5 Eos # (Auto) 0.0 Baso # (Auto) 0.1 Absolute Nucleated RBC 0.00 Nucleated RBC % 0.0 VBG pH VBG pCO2 VBG pO2 VBG HCO3 VBG Total CO2 VBG O2 Saturation VBG Base Excess Sodium 130 L Potassium 5.2 H Chloride 99 L Carbon Dioxide 22 Anion Gap 9.0 BUN 28 H Creatinine 1.1 Estimated GFR (MDRD) 69 L Glucose 530 H* POC Whole Bld Glucose 483 H Calcium 9.5 Phosphorus 3.1 L Magnesium 1.8 Total Bilirubin 1.1 H AST 19 ALT 15 Alkaline Phosphatase 65 Total Protein 7.0 Albumin 4.4 Globulin 2.6 Albumin/Globulin Ratio 1.7 Serum Ketones SMALL H 10/11/22 10/11/22 10/11/22 15:40 16:52 17:21 WBC RBC Hgb Hct MCV MCH MCHC RDW Plt Count MPV Neut # (Auto) Lymph # (Auto) [place] # (Auto) Eos # (Auto) Baso # (Auto) Absolute Nucleated RBC Nucleated RBC % VBG pH 7.378 VBG pCO2 31.6 L VBG pO2 49.9 H VBG HCO3 18.2 L VBG Total CO2 19.2 L VBG O2 Saturation 85.2 H VBG Base Excess -5.7 L Sodium Potassium Chloride Carbon Dioxide Anion Gap BUN Creatinine Estimated GFR (MDRD) Glucose POC Whole Bld Glucose 365 H 299 H Calcium Phosphorus Magnesium Total Bilirubin AST ALT Alkaline Phosphatase Total Protein Albumin Globulin Albumin/Globulin Ratio Serum Ketones 10/11/22 17:42 WBC RBC Hgb Hct MCV MCH MCHC RDW Plt Count MPV Neut # (Auto) Lymph # (Auto) [place] # (Auto) Eos # (Auto) Baso # (Auto) Absolute Nucleated RBC Nucleated RBC % VBG pH VBG pCO2 VBG pO2 VBG HCO3 VBG Total CO2 VBG O2 Saturation VBG Base Excess Sodium Potassium Chloride Carbon Dioxide Anion Gap BUN Creatinine Estimated GFR (MDRD) Glucose POC Whole Bld Glucose 271 H Calcium Phosphorus Magnesium Total Bilirubin AST ALT Alkaline Phosphatase Total Protein Albumin Globulin Albumin/Globulin Ratio Serum Ketones PD Medical Decision Making - ED course ED course: 57-year-old gentleman with history of DKA presents with symptoms concerning for DKA. That said review of his labs show he is not actually in DKA. CBC shows mild anemia. Venous blood gas with a pH of 7.37. Chemistry panel notable for significant hyperglycemia and some prerenal azotemia, pseudohyponatremia and mild hyperkalemia but no anion gap, and no acidosis. He did have small ketones. He was administered 2 L of crystalloid and some divided doses of IV insulin with resolution of his symptoms. He was able to ensure that his pump was working again and was comfortable with discharge. Departure - Departure Disposition: Home, Self Care Clinical Impression: Type 1 diabetes mellitus Qualifiers: Diabetes mellitus complication status: with hyperglycemia Qualified Code(s): E10.65 - Type 1 diabetes mellitus with hyperglycemia Condition: Good Record reviewed to determine appropriate education?: Yes Instructions: ED Hyperglycemia Diabetic Comments: There is no DKA today, but you did have significant elevated blood sugars. Keep a close eye in your blood sugars and return if they worsen. Follow-up with your life skills coach as scheduled. Forms: PCP List
[2022-10-11 15:46] LABS: BASOPHILS # (AUTO) 0.1 10^3/uL (0.0-0.1); BASOPHILS % (AUTO) 0.7 %; EOSINOPHILS % (AUTO) 0.2 %; HCT - HEMATOCRIT 41.3 % (42.0-52.0); HGB - HEMOGLOBIN 13.9 g/dL (14.0-18.0); LYMPHOCYTES # (AUTO) 0.9 10^3/uL (1.5-3.5); LYMPHOCYTES % (AUTO) 10.9 %; MEAN CORPUSCULAR HEMOGLOBIN 29.5 pg (27.0-31.0); MEAN CORPUSCULAR HGB CONC 33.7 g/dL (32.0-36.0); MEAN CORPUSCULAR VOLUME 87.7 fL (80.0-94.0); MONOCYTES # (AUTO) 0.5 10^3/uL (0.0-1.0); MONOCYTES % (AUTO) 5.7 %; NEUTROPHILS # (AUTO) 6.8 10^3/uL (1.5-6.6); NEUTROPHILS % (AUTO) 82.3 %; PLT - PLATELET COUNT 213 10^3/uL (130-450); RED BLOOD COUNT 4.71 10^6/uL (4.70-6.10); VBG BASE EXCESS -5.7 mmol/L (-2 - +2); VBG HCO3 18.2 mmol/L (23-28); VBG OXYGEN SATURATION 85.2 % (60-80); VBG PCO2 31.6 mmHg (41-51); VBG PH 7.378 (7.31-7.41); VBG PO2 49.9 mmHg (25-47); VBG TOTAL CO2 19.2 mmol/L (24-29); WHITE BLOOD COUNT 8.2 x10^3/uL (4.8-10.8)
[2022-10-11 15:53] LABS: KETONES, SERUM (ACETEST) SMALL (NEGATIVE)
[2022-10-11 15:59] LABS: ALBUMIN 4.4 g/dL (3.2-5.5); MAGNESIUM 1.8 mg/dL (1.7-2.3); PHOSPHORUS 3.1 mg/dL (3.7-7.2)
[2022-10-11 16:01] LABS: ALBUMIN/GLOBULIN RATIO 1.7 (1.0-2.2); ALKALINE PHOSPHATASE 65 IU/L (42-121); ALT ALANINE AMINOTRANSFERASE 15 IU/L (10-60); AST ASPARTATE AMINOTRANSFERASE 19 IU/L (10-42); BILIRUBIN,TOTAL 1.1 mg/dL (0.2-1.0); BUN - BLOOD UREA NITROGEN 28 mg/dL (6-20); CALCIUM 9.5 mg/dL (8.5-10.3); CARBON DIOXIDE - CO2 22 mmol/L (21-32); CHLORIDE 99 mmol/L (101-111); CREATININE 1.1 mg/dL (0.6-1.3); GFR - MDRD 69 (>89); GLUCOSE 530 mg/dL (74-104); POTASSIUM 5.2 mmol/L (3.5-4.5); SODIUM 130 mmol/L (135-145)
[2022-10-11] MEDS ORDERED: LACTATED RINGERS 1,000 ML IV STA (16:04)
[2022-10-11] MEDS ORDERED: INSULIN REGULAR HUMAN 300 UNIT/3 ML VIAL IVP STA ×2 (16:04→17:00)
[2022-10-11 18:44] VITALS: BP 144/88
[2022-10-12] MEDS ORDERED: ACETAMINOPHEN 325 MG TABLET PO PRN (15:10)
[2022-10-12] MEDS ORDERED: SODIUM CHLORIDE FLUSH 0.9% 10 ML SYRINGE IVP PRN (15:10)
[2022-10-12] MEDS ORDERED: ONDANSETRON ODT 4 MG TABLET TL PRN (15:10)
[2022-10-12] MEDS ORDERED: SODIUM CHLORIDE FLUSH 0.9% 10 ML SYRINGE IVP SCH (17:00)
[2022-10-12] MEDS ORDERED: INSULIN LISPRO 300 UNIT/3 ML PEN SUBQ SCH (17:00)
== END 2022-10-11 18:45 | disposition home or self-care (01) ==
LOC: ED 14:57
DX: E10.65 Type 1 diabetes mellitus with hyperglycemia (principal); I10 Essential (primary) hypertension; E78.00 Pure hypercholesterolemia, unspecified; E03.9 Hypothyroidism, unspecified; Z79.899 Other long term (current) drug therapy; Z87.891 Personal history of nicotine dependence
CPT/HCPCS: 36415; 80053; 82009; 82803; 83735; 84100; 85025; 96360; 96361; 99284; J1815; J7120; 80320

== ENCOUNTER 2022-10-12 10:27 | Outpatient (CLI) | payer MEDICARE | END 2022-10-12 23:59 | disposition critical access hospital (66) | LOC: EMS 10:27 | DX: E10.65 Type 1 diabetes mellitus with hyperglycemia (principal); R53.1 Weakness; R11.2 Nausea with vomiting, unspecified; R61 Generalized hyperhidrosis | CPT/HCPCS: A0425; A0429 ==

== ENCOUNTER 2022-10-12 10:50 | Inpatient (IN) | payer MEDICARE ==
[2022-10-12] MEDS ORDERED: SODIUM CHLORIDE 0.9% 1,000 ML IV STA ×2 (11:53→12:59)
[2022-10-12 11:58] LABS: VBG HCO3 18.8 mmol/L (23-28); VBG PH 7.493 (7.31-7.41); VBG PO2 27.5 mmHg (25-47); VBG TOTAL CO2 19.5 mmol/L (24-29)
[2022-10-12 11:59] LABS: VBG BASE EXCESS -2.6 mmol/L (-2 - +2); VBG OXYGEN SATURATION 60.4 % (60-80)
--- NOTE | 2022-10-12 12:00 | ED Physician Documentation ---
History of Present Illness - Stated complaint Stated Complaint: BLOOD SUGAR ISSUE - Chief complaint Chief Complaint: General - Additonal information Additional information: 57-year-old male who has a history of diabetes and frequent DKA presents to the emergency department via EMS for concerns of hyperglycemia. The history is somewhat difficult to obtain as on my initial exam in the room the patient was quite lethargic and had a required some fairly significant noxious stimuli in order to become arousable. Patient tells me that he thinks he is in DKA. He has an insulin pump that typically gives him a basal rate of 1.2 units an hour of Humalog. However over the last 24 hours he has received a total of 95 units of insulin. He feels nauseated, has abdominal cramping. He was seen by my colleague yesterday also for concerns of DKA. However labs at that time showed a venous blood gas with pH of 7.37. He was hyperglycemic and had some prerenal azotemia, pseudohyponatremia and mild hyperkalemia but no anion gap or acidosis. He received 2 L of crystalloid and some divided doses of insulin with resolution of his symptoms and was then discharged home. Review of Systems Unable to obtain: Confused Constitutional: denies: Fever, Chills GI: reports: Nausea PD PAST MEDICAL HISTORY - Past Medical History Cardiovascular: Hypertension, High cholesterol, Arrhythmia, Other Respiratory: Pneumonia Neuro: Dementia, CVA, Fainting, Other Endocrine/Autoimmune: Type 1 diabetes, HyPOthyroidism GI: GERD, Ulcers, Colon polyps : Other HEENT: Other Psych: Depression, Anxiety, ADD/ADHD Musculoskeletal: Chronic back pain, Other Derm: None - Past Surgical History Past Surgical History: Yes General: Colonoscopy Ortho: Carpal Tunnel surgery, Other Cardiovascular: Other HEENT: Other - Present Medications Home Medications: Ambulatory Orders Medication Instructions Recorded Confirmed Atorvastatin Calcium [Lipitor] 80 mg PO QPM 05/30/21 08/20/22 Donepezil HCl [Aricept] 10 mg PO DAILY 05/30/21 08/20/22 Mirtazapine 45 mg PO QPM 05/30/21 08/20/22 DULoxetine [Cymbalta] 30 mg PO DAILY 01/26/22 08/20/22 Tamsulosin [Flomax] 0.4 mg PO DAILY 01/26/22 08/20/22 Albuterol 2.5 mg INH Q4H PRN #30 ml 04/16/22 08/20/22 Albuterol Sulf [Ventolin Hfa 1 - 2 puffs INH Q4HR PRN #1 each 04/16/22 08/20/22 Inhaler] Lisdexamfetamine Dimesylate 20 mg PO DAILY 07/03/22 08/20/22 [Vyvanse] Insulin Lispro 83 unit SUBQ .INSULIN PUMP 07/04/22 08/20/22 Losartan Potassium 25 mg PO DAILY 07/04/22 08/20/22 oxyCODONE [Roxicodone] 5 mg PO Q6H PRN #10 tablet MDD 6 08/24/22 - Allergies Allergies/Adverse Reactions: Allergies Allergy/AdvReac Type Severity Reaction Status Date / Time omeprazole Allergy Intermediate Nausea Verified 10/11/22 15:07 insulin aspart Allergy Unknown Verified 10/11/22 15:07 [From Novolog U-100 Insulin aspart] insulin aspart protamine Allergy Unknown Verified 10/11/22 15:07 human [From Novolog Mix 70-30 U-100 Insuln] codeine AdvReac Severe Dizziness Verified 10/11/22 15:07 doxycycline AdvReac Intermediate Dizziness Verified 10/11/22 15:07 - Social History Does the pt smoke?: No Smoking Status: Former smoker Does the pt drink ETOH?: No Does the pt have substance abuse?: Yes - Immunizations Immunizations are current?: Yes - POLST Patient has POLST: No POLST Status: Full Code PD ED PE EXPANDED - General General: Lethargic - Cardiac Cardiac: Regular Rate, Radial strong equal, Pedal strong equal, Cap refill < 2 sec. No: Murmur Present - Respiratory Respiratory: Clear to ausultation ernesto, Other (Mild tachypnea RR 24-30) - Abdomen Abdomen: Normal Bowel sounds. No: Tender to palpation - Derm Derm: Normal color, Warm and dry. No: Rash - Neuro Neuro: CNII-XII intact - GCS Eye Opening: To Pain Motor: Obeys Commands Verbal: Confused Total: 12 Results - Vitals Vitals: Vital Signs - 24 hr 10/12/22 10/12/22 10/12/22 10:51 12:30 13:54 Temperature 36 C L 35.3 C L 34.9 C L Heart Rate 76 79 50 L Respiratory 22 16 14 Rate Blood Pressure 141/80 H 148/79 H 138/80 H O2 Saturation 100 99 100 10/12/22 10/12/22 10/12/22 14:34 14:53 16:11 Temperature 36.5 C 36.5 C Heart Rate 58 L 64 Respiratory 15 19 Rate Blood Pressure 132/75 H 132/67 H O2 Saturation 99 98 Oxygen O2 Source [Without Activity] Room air O2 Source Room air - EKG (time done) 1234 EKG releavant findings:: EKG personally interpreted by author of this note. Relevant findings are: Rate: Rate (enter#) (51) Rhythm: NSR [place]: Normal Intervals: Normal NC, Prolonged QT Ischemia: Non specific changes Compare to prior EKG: Unchanged from prior EKG Computer interpretation: Agree with computer - Labs Labs: Laboratory Tests 10/12/22 10/12/22 10/12/22 11:05 11:46 11:46 WBC 7.5 RBC 4.65 L Hgb 13.9 L Hct 40.6 L MCV 87.3 MCH 29.9 MCHC 34.2 RDW 12.1 Plt Count 206 MPV 11.9 H Neut # (Auto) 5.7 Lymph # (Auto) 1.1 L [place] # (Auto) 0.5 Eos # (Auto) 0.1 Baso # (Auto) 0.1 Absolute Nucleated RBC 0.00 Nucleated RBC % 0.0 VBG pH VBG pCO2 VBG pO2 VBG HCO3 VBG Total CO2 VBG O2 Saturation VBG Base Excess Sodium 133 L Potassium 4.5 Chloride 103 Carbon Dioxide 21 Anion Gap 9.0 BUN 26 H Creatinine 1.1 Estimated GFR (MDRD) 69 L Glucose 312 H POC Whole Bld Glucose 295 H Lactic Acid Calcium 9.7 Total Bilirubin 1.2 H AST 18 ALT 16 Alkaline Phosphatase 67 Total Protein 6.8 Albumin 4.3 Globulin 2.5 Albumin/Globulin Ratio 1.7 Lipase 73 Urine Color Urine Clarity Urine pH Ur Specific Brooks Urine Protein Urine Glucose (UA) Urine Ketones Urine Occult Blood Urine Nitrite Urine Bilirubin Urine Urobilinogen Ur Leukocyte Esterase Ur Microscopic Review Urine Culture Comments Nasal Adenovirus (PCR) Nasal B. parapertussis DNA (PCR) Nasal Coronavir 229E PCR Nasal Coronavir HKU1 PCR Nasal Coronavir NL63 PCR Nasal Coronavir OC43 PCR Nasal Enterovir/Rhinovir PCR Nasal Influenza B PCR Nasal Influenza A PCR Nasal Parainfluen 1 PCR Nasal Parainfluen 2 PCR Nasal Parainfluen 3 PCR Nasal Parainfluen 4 PCR Nasal RSV (PCR) Nasal B.pertussis DNA PCR Nasal C.pneumoniae (PCR) Severo Human Metapneumo PCR Nasal M.pneumoniae (PCR) Nasal SARS-CoV-2 (PCR) Urine Opiates Screen Ur Oxycodone Screen Urine Methadone Screen Ur Propoxyphene Screen Ur Barbiturates Screen Ur Tricyclics Screen Ur Phencyclidine Scrn Ur Amphetamine Screen U Methamphetamines Scrn U Benzodiazepines Scrn Urine Cocaine Screen U Cannabinoids Screen Ethyl Alcohol Serum Ketones SMALL H 10/12/22 10/12/22 10/12/22 11:46 11:51 12:11 WBC RBC Hgb Hct MCV MCH MCHC RDW Plt Count MPV Neut # (Auto) Lymph # (Auto) [place] # (Auto) Eos # (Auto) Baso # (Auto) Absolute Nucleated RBC Nucleated RBC % VBG pH 7.493 H VBG pCO2 25.0 L VBG pO2 27.5 VBG HCO3 18.8 L VBG Total CO2 19.5 L VBG O2 Saturation 60.4 VBG Base Excess -2.6 L Sodium Potassium Chloride Carbon Dioxide Anion Gap BUN Creatinine Estimated GFR (MDRD) Glucose POC Whole Bld Glucose 309 H Lactic Acid 2.5 H Calcium Total Bilirubin AST ALT Alkaline Phosphatase Total Protein Albumin Globulin Albumin/Globulin Ratio Lipase Urine Color Urine Clarity Urine pH Ur Specific Brooks Urine Protein Urine Glucose (UA) Urine Ketones Urine Occult Blood Urine Nitrite Urine Bilirubin Urine Urobilinogen Ur Leukocyte Esterase Ur Microscopic Review Urine Culture Comments Nasal Adenovirus (PCR) Nasal B. parapertussis DNA (PCR) Nasal Coronavir 229E PCR Nasal Coronavir HKU1 PCR Nasal Coronavir NL63 PCR Nasal Coronavir OC43 PCR Nasal Enterovir/Rhinovir PCR Nasal Influenza B PCR Nasal Influenza A PCR Nasal Parainfluen 1 PCR Nasal Parainfluen 2 PCR Nasal Parainfluen 3 PCR Nasal Parainfluen 4 PCR Nasal RSV (PCR) Nasal B.pertussis DNA PCR Nasal C.pneumoniae (PCR) Severo Human Metapneumo PCR Nasal M.pneumoniae (PCR) Nasal SARS-CoV-2 (PCR) Urine Opiates Screen Ur Oxycodone Screen Urine Methadone Screen Ur Propoxyphene Screen Ur Barbiturates Screen Ur Tricyclics Screen Ur Phencyclidine Scrn Ur Amphetamine Screen U Methamphetamines Scrn U Benzodiazepines Scrn Urine Cocaine Screen U Cannabinoids Screen Ethyl Alcohol Serum Ketones 10/12/22 10/12/22 10/12/22 12:35 13:28 14:47 WBC RBC Hgb Hct MCV MCH MCHC RDW Plt Count MPV Neut # (Auto) Lymph # (Auto) [place] # (Auto) Eos # (Auto) Baso # (Auto) Absolute Nucleated RBC Nucleated RBC % VBG pH VBG pCO2 VBG pO2 VBG HCO3 VBG Total CO2 VBG O2 Saturation VBG Base Excess Sodium Potassium Chloride Carbon Dioxide Anion Gap BUN Creatinine Estimated GFR (MDRD) Glucose POC Whole Bld Glucose 232 H 172 H Lactic Acid Calcium Total Bilirubin AST ALT Alkaline Phosphatase Total Protein Albumin Globulin Albumin/Globulin Ratio Lipase Urine Color Urine Clarity Urine pH Ur Specific Brooks Urine Protein Urine Glucose (UA) Urine Ketones Urine Occult Blood Urine Nitrite Urine Bilirubin Urine Urobilinogen Ur Leukocyte Esterase Ur Microscopic Review Urine Culture Comments Nasal Adenovirus (PCR) NOT DETECTED Nasal B. parapertussis DNA (PCR) NOT DETECTED Nasal Coronavir 229E PCR NOT DETECTED Nasal Coronavir HKU1 PCR NOT DETECTED Nasal Coronavir NL63 PCR NOT DETECTED Nasal Coronavir OC43 PCR NOT DETECTED Nasal Enterovir/Rhinovir PCR NOT DETECTED Nasal Influenza B PCR NOT DETECTED Nasal Influenza A PCR NOT DETECTED Nasal Parainfluen 1 PCR NOT DETECTED Nasal Parainfluen 2 PCR NOT DETECTED Nasal Parainfluen 3 PCR NOT DETECTED Nasal Parainfluen 4 PCR NOT DETECTED Nasal RSV (PCR) NOT DETECTED Nasal B.pertussis DNA PCR NOT DETECTED Nasal C.pneumoniae (PCR) NOT DETECTED Severo Human Metapneumo PCR NOT DETECTED Nasal M.pneumoniae (PCR) NOT DETECTED Nasal SARS-CoV-2 (PCR) NOT DETECTED Urine Opiates Screen Ur Oxycodone Screen Urine Methadone Screen Ur Propoxyphene Screen Ur Barbiturates Screen Ur Tricyclics Screen Ur Phencyclidine Scrn Ur Amphetamine Screen U Methamphetamines Scrn U Benzodiazepines Scrn Urine Cocaine Screen U Cannabinoids Screen Ethyl Alcohol Serum Ketones 10/12/22 10/12/22 10/12/22 14:53 14:53 16:00 WBC RBC Hgb Hct MCV MCH MCHC RDW Plt Count MPV Neut # (Auto) Lymph # (Auto) [place] # (Auto) Eos # (Auto) Baso # (Auto) Absolute Nucleated RBC Nucleated RBC % VBG pH VBG pCO2 VBG pO2 VBG HCO3 VBG Total CO2 VBG O2 Saturation VBG Base Excess Sodium Potassium Chloride Carbon Dioxide Anion Gap BUN Creatinine Estimated GFR (MDRD) Glucose POC Whole Bld Glucose Lactic Acid 0.9 Calcium Total Bilirubin AST ALT Alkaline Phosphatase Total Protein Albumin Globulin Albumin/Globulin Ratio Lipase Urine Color YELLOW Urine Clarity CLEAR Urine pH 5.0 Ur Specific [place] 1.020 Urine Protein NEGATIVE Urine Glucose (UA) 500 H Urine Ketones 40 H Urine Occult Blood NEGATIVE Urine Nitrite NEGATIVE Urine Bilirubin NEGATIVE Urine Urobilinogen 0.2 (NORMAL) Ur Leukocyte Esterase NEGATIVE Ur Microscopic Review NOT INDICATED Urine Culture Comments NOT INDICATED Nasal Adenovirus (PCR) Nasal B. parapertussis DNA (PCR) Nasal Coronavir 229E PCR Nasal Coronavir HKU1 PCR Nasal Coronavir NL63 PCR Nasal Coronavir OC43 PCR Nasal Enterovir/Rhinovir PCR Nasal Influenza B PCR Nasal Influenza A PCR Nasal Parainfluen 1 PCR Nasal Parainfluen 2 PCR Nasal Parainfluen 3 PCR Nasal Parainfluen 4 PCR Nasal RSV (PCR) Nasal B.pertussis DNA PCR Nasal C.pneumoniae (PCR) Severo Human Metapneumo PCR Nasal M.pneumoniae (PCR) Nasal SARS-CoV-2 (PCR) Urine Opiates Screen NEGATIVE Ur Oxycodone Screen NEGATIVE Urine Methadone Screen NEGATIVE Ur Propoxyphene Screen NEGATIVE Ur Barbiturates Screen NEGATIVE Ur Tricyclics Screen NEGATIVE Ur Phencyclidine Scrn NEGATIVE Ur Amphetamine Screen POSITIVE H U Methamphetamines Scrn NEGATIVE U Benzodiazepines Scrn NEGATIVE Urine Cocaine Screen NEGATIVE U Cannabinoids Screen POSITIVE H Ethyl Alcohol < 10.0 Serum Ketones - Rads (name of study) Ct head Relevant Findings:: Final report received (No acute intracranial process) angio chest Relevant Findings:: Final report received (No acute findings. No evidence of pulmonary embolism, aortic aneurysm) PD Medical Decision Making - ED course Complexity details: reviewed results, re-evaluated patient, considered differential, d/w patient ED course: 57-year-old male presents emergency department for evaluation of hyperglycemia, he has personal concern that he is in ketoacidosis and altered mental status. Seen by my colleague yesterday for hyperglycemia but no acidemia. He improved after IV fluids and insulin. On initial evaluation in the emergency department patient is a Glascow of 12. He required very noxious stimuli including sternal rub and a gag reflex in order for him to wake up. He was however supporting his airway. Once he woke up he was nonfocal. He was able to participate in the history with me and indicated that his insulin pump has delivered more than 95 units of insulin over the last 24 hours which is a very large volume for him. He was nonfocal. His vital signs were without fever, hypotension or ta chycardia. His EKG is interpreted by myself was nonischemic. I did obtain CBC, electrolytes, ketones blood alcohol and a respiratory PCR panel and lactic acid. Per my interpretation no leukocytosis. He does have a mild anemia. A VBG showed a pH of 7.4.9 with a CO2 of 25 indicating a respiratory alkalosis. Serum chemistry revealed a sodium of 133, pseudohyponatremia in the setting of a glucose of 312. He did not have a gap. His CO2 was 21. BUN 26 and 1.1 respectively higher than his baseline revealing a mild prerenal azotemia. An initial lactate was 2.5 but on repeat was 0.9 after 2 L of fluids. Otherwise his respiratory PCR was negative. Blood alcohol was negative. Serum ketones were small. Urine drug screen positive for cannabis and amphetamines. I would not expect these to cause obtundation. no findings to suggest UTI. Clinically the patient presents as hyperglycemic with altered mental status but not in DKA. CT of the head was without any focal findings and an angiogram of the chest was completed to rule out PE as a cause for altered mental status and respiratory alkalosis. He has not been hypoxic. At this time without a clear etiology for the altered mentation he was presented for admission to Dr. Amezquita who agrees to bring him in for further evaluation and management of his diabetes and altered mental status. Departure - Departure Disposition: 66 [facility] DC/Xfer Clinical Impression: Hyperglycemia, Elevated lactic acid level Altered mental status, unspecified Qualifiers: Altered mental status type: coma Coma depth: Mario coma 9-12 Coma timing: at arrival to emergency department Qualified Code(s): R40.2422 - Mario coma scale score 9-12, at arrival to emergency department Discharge Date/Time: 10/12/22 17:53
[2022-10-12 12:12] LABS: ALBUMIN 4.3 g/dL (3.2-5.5); ALBUMIN/GLOBULIN RATIO 1.7 (1.0-2.2); ALKALINE PHOSPHATASE 67 IU/L (42-121); ALT ALANINE AMINOTRANSFERASE 16 IU/L (10-60); AST ASPARTATE AMINOTRANSFERASE 18 IU/L (10-42); BILIRUBIN,TOTAL 1.2 mg/dL (0.2-1.0); BUN - BLOOD UREA NITROGEN 26 mg/dL (6-20); CALCIUM 9.7 mg/dL (8.5-10.3); CARBON DIOXIDE - CO2 21 mmol/L (21-32); CHLORIDE 103 mmol/L (101-111); CREATININE 1.1 mg/dL (0.6-1.3); GFR - MDRD 69 (>89); GLUCOSE 312 mg/dL (74-104); LIPASE 73 U/L (11-82); POTASSIUM 4.5 mmol/L (3.5-4.5); SODIUM 133 mmol/L (135-145); TOTAL PROTEIN 6.8 g/dL (6.4-8.9)
[2022-10-12 12:16] LABS: BASOPHILS # (AUTO) 0.1 10^3/uL (0.0-0.1); BASOPHILS % (AUTO) 0.8 %; EOSINOPHILS # (AUTO) 0.1 10^3/uL (0.0-0.7); EOSINOPHILS % (AUTO) 0.8 %; HCT - HEMATOCRIT 40.6 % (42.0-52.0); HGB - HEMOGLOBIN 13.9 g/dL (14.0-18.0); LYMPHOCYTES # (AUTO) 1.1 10^3/uL (1.5-3.5); LYMPHOCYTES % (AUTO) 14.9 %; MEAN CORPUSCULAR HEMOGLOBIN 29.9 pg (27.0-31.0); MEAN CORPUSCULAR HGB CONC 34.2 g/dL (32.0-36.0); MEAN CORPUSCULAR VOLUME 87.3 fL (80.0-94.0); MEAN PLATELET VOLUME 11.9 fL (7.4-11.4); MONOCYTES # (AUTO) 0.5 10^3/uL (0.0-1.0); MONOCYTES % (AUTO) 7.1 %; NEUTROPHILS # (AUTO) 5.7 10^3/uL (1.5-6.6); NEUTROPHILS % (AUTO) 76.1 %; PLT - PLATELET COUNT 206 10^3/uL (130-450); RED BLOOD COUNT 4.65 10^6/uL (4.70-6.10); RED CELL DISTRIBUTION WIDTH 12.1 % (12.0-15.0); WHITE BLOOD COUNT 7.5 x10^3/uL (4.8-10.8)
[2022-10-12 12:20] LABS: KETONES, SERUM (ACETEST) SMALL (NEGATIVE)
[2022-10-12] MEDS ORDERED: INSULIN REGULAR HUMAN 300 UNIT/3 ML VIAL IVP STA (12:24)
[2022-10-12] MEDS ORDERED: PROCHLORPERAZINE 10 MG/2 ML VIAL IVP STA (12:50)
[2022-10-12] MEDS ORDERED: iohexoL-300 100 ML VIAL ONE (13:00)
--- NOTE | 2022-10-12 13:23 | XRAY Report ---
PROCEDURE: Chest 1 View X-Ray INDICATIONS: chest pain TECHNIQUE: One view of the chest was acquired. COMPARISON: None. FINDINGS: Surgical changes and devices: Left parasternal medical lab technician or external electronic device Lungs and pleura: No pleural effusions or pneumothorax. Lungs are clear. Mediastinum: Mediastinal contours appear normal. Heart size is normal. Bones and chest wall: No suspicious bony lesions. Overlying soft tissues appear unremarkable. IMPRESSION: No acute cardiopulmonary process. Reviewed by: Deandre Bazan MD on 10/12/2022 12:22 PM AKDT Approved by: Deandre Bazan MD on 10/12/2022 12:22 PM AKDT Station ID: [id number]
[2022-10-12] MEDS ORDERED: iohexoL-300 100 ML VIAL IVP ONE (13:27)
[2022-10-12 13:53] LABS: B. PARAPERTUSSIS- RESP PCR PAN NOT DETECTED; B. PERTUSSIS- RESP PCR PANEL NOT DETECTED; C. PNEUMONIAE- RESP PCR PANEL NOT DETECTED; CORONAVIRUS 229E-RESP PCR NOT DETECTED; CORONAVIRUS HKU1-RESP PCR NOT DETECTED; CORONAVIRUS NL63-RESP PCR NOT DETECTED; CORONAVIRUS OC43-RESP PCR NOT DETECTED; HUMAN METAPNEUMOVIRUS NOT DETECTED; INFLUENZA A- RESP PCR PANEL NOT DETECTED; INFLUENZA B - RESP PCR PANEL NOT DETECTED; M. PNEUMONIAE- RESP PCR PANEL NOT DETECTED; PARAINFLUENZA VIRUS 1 NOT DETECTED; PARAINFLUENZA VIRUS 2 NOT DETECTED; PARAINFLUENZA VIRUS 3 NOT DETECTED; PARAINFLUENZA VIRUS 4 NOT DETECTED; RHINOVIRUS/ENTEROVIRUS NOT DETECTED; RSV- RESP PCR PANEL NOT DETECTED; SARS-CoV-2 -RESP PCR PANEL NOT DETECTED
--- NOTE | 2022-10-12 14:14 | CT Report ---
PROCEDURE: CT brain without contrast INDICATIONS: ams TECHNIQUE: Noncontrast 4.5 mm thick angled axial sections acquired from the foramen magnum to the vertex. For r adiation dose reduction, the following was used: automated exposure control, adjustment of mA and/or kV according to patient size. COMPARISON: None. FINDINGS: Image quality: Limited by motion artifact CSF spaces: Basal cisterns are patent. No extra-axial fluid collections. Ventricles are normal in size and shape. Brain: No midline shift. No intracranial masses or hemorrhage. Mcdaniel-white matter interface is norm al. Skull and face: Calvarium and visualized facial bones are intact, without suspicious lesions. Sinuses: Visualized sinuses and mastoids are clear. IMPRESSION: No intracranial hemorrhage or mass effect noted. Study is limited by motion artifact Reviewed by: Deandre Bazan MD on 10/12/2022 1:13 PM AKWALLY Approved by: Deandre Bazan MD on 10/12/2022 1:13 PM AKDT Station ID: [id number]
--- NOTE | 2022-10-12 14:21 | CT Report ---
PROCEDURE: CT angiogram chest with contrast INDICATIONS: Short of breath CONTRAST: 80ml omni 300 TECHNIQUE: After the administration of intravenous contrast, 2 mm axial images were acquired from the pulmonary apices to the posterior costophrenic angles during the arterial phase. In addition, 1 mm lung kernel and 5 mm soft tissue kernel reconstructions were performed. coronal oblique maximum intensity project ion (MIP) reformats, 8 mm axial MIP, and 5 mm coronal and sagittal MPR reformats were then performed through the thorax. For radiation dose reduction, the following was used: automated exposure control, adjustment of mA and/or kV according to patient size. COMPARISON: 07/03/2022 FINDINGS: Image quality: Excellent. Large vessels: No filling defects within the opacified pulmonary arteries, accounting for motion and contrast timing. No evidence of acute aortic syndrome or aortic aneurysm. Lungs and pleura: No consolidation. No pleural effusions. No pneumothorax. No suspicious pulmonary n odules which require follow up. Scattered calcified granuloma unchanged Mediastinum: Heart size is normal. No pericardial effusion. No large vessel abnormality. No mediastin al adenopathy by size criteria. Chest wall and lower neck: Thyroid is unremarkable. No axillary or supraclavicular adenopathy by size . Bones: Old healed right-sided rib fractures. L2 compression fracture, unchanged Upper Abdomen: Unremarkable. IMPRESSION: No acute findings. No evidence of pulmonary embolism, aortic aneurysm Reviewed by: Deandre Bazan MD on 10/12/2022 1:20 PM GRZEGORZ Approved by: Deandre Bazan MD on 10/12/2022 1:20 PM AKDT Station ID: [id number]
[2022-10-12 16:14] LABS: MUDS CUTOFF CONCENTRATIONS CUTOFF CONC BELOW:
[2022-10-12 16:15] LABS: BILIRUBIN,URINE NEGATIVE (NEGATIVE); GLUCOSE, URINE (UA) 500 mg/dL (NEGATIVE); KETONES,URINE (UA) 40 mg/dL (NEGATIVE); LEUKOCYTE ESTERASE, URINE NEGATIVE (NEGATIVE); NITRITE,URINE NEGATIVE (NEGATIVE); OCCULT BLOOD,URINE NEGATIVE (NEGATIVE); PROTEIN,URINE NEGATIVE (NEGATIVE); UROBILINOGEN,URINE 0.2 (NORMAL) E.U./dL (NORMAL)
[2022-10-12 16:16] LABS: CLARITY,URINE CLEAR (CLEAR)
[2022-10-12] MEDS ORDERED: ONDANSETRON ODT 4 MG TABLET TL PRN (16:16)
[2022-10-12] MEDS ORDERED: ACETAMINOPHEN 325 MG TABLET PO PRN (16:16)
[2022-10-12 16:27] LABS: AMPHETAMINE SCREEN,URINE POSITIVE (NEGATIVE); BARBITURATE SCREEN,UR NEGATIVE (NEGATIVE); BENZODIAZEPINES SCREEN, URINE NEGATIVE (NEGATIVE); COCAINE SCREEN URINE NEGATIVE (NEGATIVE); METHADONE SCREEN, URINE NEGATIVE (NEGATIVE); METHAMPHETAMINES SCREEN, URINE NEGATIVE (NEGATIVE); OPIATE SCREEN, URINE NEGATIVE (NEGATIVE); OXYCODONE SCREEN, URINE NEGATIVE (NEGATIVE); PROPOXYPHENE SCREEN, URINE NEGATIVE (NEGATIVE); THC CANNABINOID SCREEN, URINE POSITIVE (NEGATIVE); TRICYCLIC ANTIDEPRESSANT,URINE NEGATIVE (NEGATIVE)
--- NOTE | 2022-10-12 16:30 | HISTORY & PHYSICAL EXAMINATION ---
Chief Complaint - Chief Complaint Chief Complaint: Altered mental status History of Present Illness - Admitted From Admitted From:: Emergency room - History Obtained From Records Reviewed: yes History obtained from: ER,patient - History of Present Illness HPI Comment/Other: Is a 56-year-old male with past medical history is significant for type 1 diabetes for which she is on an insulin pump. He has episodes of nausea poor appetite I believe he had told me past admission he has a history of gastroparesis. He was seen last night in the emergency room he thought he had DKA but did not he got some IV fluids and was sent home. He presents again today with increased lethargy. Per nurse practitioner in the emergency room patient was obtunded and finally did arouse. He did have urine ketones but was not in DKA per blood gas. I had requested CT of head without contrast and CTA PE protocol which were negative. History - Past Medical History Cardiovascular: reports: Hypertension, High cholesterol, Arrhythmia, Other Respiratory: reports: Pneumonia Neuro: reports: Dementia, CVA, Fainting, Other Endocrine/Autoimmune: reports: Type 1 diabetes, HyPOthyroidism GI: reports: GERD, Ulcers, Colon polyps : reports: Other HEENT: reports: Other Psych: reports: Depression, Anxiety, ADD/ADHD Musculoskeletal: reports: Chronic back pain, Other Derm: reports: None MRSA Hx?: No - Past Surgical History General: reports: Colonoscopy Ortho: reports: Carpal Tunnel surgery, Other Cardiovascular: reports: Other HEENT: reports: Other - Family & Social History Family History: Other family: CAD, CVA/TIA Family History Comment/Other: States his father had a myocardial infarction in his early 30s and he also had a stroke. His maternal side has a strong history of cardiac disease and strokes as well. Living Situation: With spouse/s.o. Social History Notes: He lives at home with his spouse. He no longer smokes but did smoke a pack and half a day for about 13 years but quit in his 30s. He rarely drinks alcohol. 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 - Substance History Use: Uses substance without health or social issues: Cannabis - POLST Patient has POLST: No POLST Status: Full Code Meds/Allgy - Home Medications Home Medications: Ambulatory Orders Medication Instructions Recorded Confirmed Atorvastatin Calcium [Lipitor] 80 mg PO QPM 05/30/21 08/20/22 Donepezil HCl [Aricept] 10 mg PO DAILY 05/30/21 08/20/22 Mirtazapine 45 mg PO QPM 05/30/21 08/20/22 DULoxetine [Cymbalta] 30 mg PO DAILY 01/26/22 08/20/22 Tamsulosin [Flomax] 0.4 mg PO DAILY 01/26/22 08/20/22 Albuterol 2.5 mg INH Q4H PRN #30 ml 04/16/22 08/20/22 Albuterol Sulf [Ventolin Hfa 1 - 2 puffs INH Q4HR PRN #1 each 04/16/22 08/20/22 Inhaler] Lisdexamfetamine Dimesylate 20 mg PO DAILY 07/03/22 08/20/22 [Vyvanse] Insulin Lispro 83 unit SUBQ .INSULIN PUMP 07/04/22 08/20/22 Losartan Potassium 25 mg PO DAILY 07/04/22 08/20/22 oxyCODONE [Roxicodone] 5 mg PO Q6H PRN #10 tablet MDD 6 08/24/22 - Allergies Allergies/Adverse Reactions: Allergies Allergy/AdvReac Type Severity Reaction Status Date / Time omeprazole Allergy Intermediate Nausea Verified 10/11/22 15:07 insulin aspart Allergy Unknown Verified 10/11/22 15:07 [From Novolog U-100 Insulin aspart] insulin aspart protamine Allergy Unknown Verified 10/11/22 15:07 human [From Novolog Mix 70-30 U-100 Insuln] codeine AdvReac Severe Dizziness Verified 10/11/22 15:07 doxycycline AdvReac Intermediate Dizziness Verified 10/11/22 15:07 Review of Systems - Other Findings Other Findings: All systems are reviewed and are negative except for as in HPI. Exam - Vital Signs Vital Signs: Vital Signs x48h Temp Pulse Resp BP Pulse Ox 10/12/22 16:11 36.5 C 10/12/22 14:53 36.5 C 64 19 132/67 H 98 10/12/22 14:34 58 L 15 132/75 H 99 10/12/22 13:54 34.9 C L 50 L 14 138/80 H 100 10/12/22 12:30 35.3 C L 79 16 148/79 H 99 10/12/22 10:51 36 C L 76 22 141/80 H 100 - Physical Exam General Appearance: positive: Alert, Mild distress Eyes Bilateral: positive: Normal inspection ENT: positive: ENT inspection nml Neck: positive: Nml inspection Respiratory: positive: Chest non-tender, No respiratory distress, Breath sounds nml Cardiovascular: positive: Regular rate & rhythm, No murmur Abdomen: positive: Non-tender Skin: positive: No rash Extremities: positive: Non-tender, No pedal edema Conclusion/Plan - Problem List (1) Acute encephalopathy Conclusion/Plan: Patient presented with obtundation per ER AUTO WASHER. Patient thought he was in DKA but was not. CT of head without contrast was negative. Patient also was hyperventilating per ER AUTO WASHER and CTA PE protocol was negative. Patient has ordered CTA head and neck, MRI of brain without contrast. Upon my visit patient was awake and oriented and answering questions appropriately.Check urine tox screen and alcohol level. (2) Elevated lactic acid level Conclusion/Plan: Patient was given IV fluids in the emergency room and repeat lactic acid level was normal. (3) SAMUEL (acute kidney injury) Conclusion/Plan: Patient's previous labs showed a BUN of 17 creatinine of 0.9 in August 2022 and today his BUN was 26 creatinine 1.1 with a GFR of 69. Suspect secondary to poor hydration. (4) T1DM (type 1 diabetes mellitus) Conclusion/Plan: Will not use patient's influenza pump which is disassembled from his apparatus and will be Separately. We will go ahead and put on Lantus subcu 10 units a.m. and p.m. Monitor glucoses. Will also put on mealtime insulin 5 units and put on medium protocol for correction dose insulin coverage. - Lab Results Fish Bones: 10/12/22 11:46 10/12/22 11:46
[2022-10-12] MEDS: INSULIN LISPRO 300 UNIT/3 ML PEN SUBQ SCH ×3 (17:51→21:16)
[2022-10-12] MEDS: SODIUM CHLORIDE FLUSH 0.9% 10 ML SYRINGE IVP SCH (17:52)
[2022-10-12] MEDS ORDERED: PROCHLORPERAZINE 10 MG/2 ML VIAL IVP PRN (18:41)
[2022-10-12] MEDS: INSULIN GLARGINE-YFGN 300 UNIT/3 ML PEN SUBQ SCH (21:16)
[2022-10-12] MEDS: MIRTAZAPINE 15 MG TABLET PO SCH (21:17)
[2022-10-12] MEDS: ATORVASTATIN 40 MG TABLET PO SCH (21:17)
[2022-10-12 21:39] LABS: ESTIMATED AVERAGE GLUCOSE 160 mg/dL (70-100); HEMOGLOBIN A1c% 7.2 % (4.27-6.07)
[2022-10-13] MEDS: SODIUM CHLORIDE FLUSH 0.9% 10 ML SYRINGE IVP SCH ×3 (01:00→16:55)
[2022-10-13 08:19] LABS: CALCIUM 8.8 mg/dL (8.5-10.3); CREATININE 0.9 mg/dL (0.6-1.3)
[2022-10-13] MEDS: INSULIN LISPRO 300 UNIT/3 ML PEN SUBQ SCH ×7 (08:44→21:10)
[2022-10-13] MEDS: ENOXAPARIN 40 MG/0.4 ML SYRINGE SUBQ SCH (08:45)
[2022-10-13] MEDS ORDERED: iohexoL-300 100 ML VIAL ONE (09:41)
[2022-10-13] MEDS ORDERED: INSULIN LISPRO 300 UNIT/3 ML PEN SUBQ ONE ×2 (11:00→12:00)
[2022-10-13] MEDS: METOCLOPRAMIDE 10 MG TABLET PO SCH ×3 (12:01→21:08)
--- NOTE | 2022-10-13 13:22 | PHARMACY PROGRESS NOTE ---
- Best Possible Medication History Admit Date and Time: 10/12/22 1616 Processed by: Pharmacy Medication History completed: Yes Patient Interview: Completed Secondary Source(s): Pharmacy records As the person ultimately responsible for medication therapy, providers are able to order a medication from an existing home medication list in [facility] via the "Reconcile Routine" prior to Confirmation of that medication by wan support specialist. Such practice is discouraged except when the physician, in their clinical judgment, deems that a medical need exists for a medication without regard to previous use.
[2022-10-13] MEDS ORDERED: iohexoL-300 100 ML VIAL IVP ONE (15:00)
--- NOTE | 2022-10-13 16:52 | PROVIDER PROGRESS NOTE ---
Assessment/Plan - Problem List (1) Acute encephalopathy Assessment/Plan: Conclusion/Plan: Patient presented with obtundation per ER WEIGHT CALCULATOR. Patient thought he was in DKA but was not. CT of head without contrast was negative. Patient also was hyperventilating per ER WEIGHT CALCULATOR and CTA PE protocol was negative. Patient has ordered CTA head and neck, MRI of brain without contrast. Upon my visit patient was awake and oriented and answering questions appropriately.Check urine tox screen and alcohol level. 10/13- Urine tox screen was positive for amphetamine which is a prescription drug he takes along with cannabinoids which she says he uses nightly.Alcohol level was negative (2) Elevated lactic acid level Conclusion/Plan: Patient was given IV fluids in the emergency room and repeat lactic acid level was normal. (3) SAMUEL (acute kidney injury) Conclusion/Plan: Patient's previous labs showed a BUN of 17 creatinine of 0.9 in August 2022 and today his BUN was 26 creatinine 1.1 with a GFR of 69. Suspect secondary to poor hydration.October 13 GFR was 80 with a BUN of 14 creatinine 0.9. (4) T1DM (type 1 diabetes mellitus) Conclusion/Plan: Will not use patient's influenza pump which is disassembled from his apparatus and will be Separately. We will go ahead and put on Lantus subcu 10 units a.m. and p.m. Monitor glucoses. Will also put on mealtime insulin 5 units and put on medium protocol for correction dose insulin coverage. - Current Meds Current Meds: Current Medications Generic Name Dose Route Start Last Admin Trade Name Freq PRN Reason Stop Dose Admin Atorvastatin Calcium 80 mg 10/12/22 21:00 10/12/22 21:17 Atorvastatin 40 Mg Tablet PO 80 mg QPM SRIDEVI Administration Enoxaparin Sodium 40 mg 10/13/22 09:00 10/13/22 08:45 Enoxaparin 40 Mg/0.4 Ml Syringe SUBQ 40 mg DAILY SRIDEVI Administration Insulin Glargine-yfgn 10 unit 10/12/22 21:00 10/12/22 21:16 Insulin Glargine-Yfgn 300 Unit/3 Ml Pen SUBQ 10 unit QPM SRIDEVI Administration Insulin Human Lispro 5 unit 10/12/22 17:00 10/13/22 11:58 Insulin Lispro 300 Unit/3 Ml Pen SUBQ 5 unit TIDWM SRIDEVI Administration Protocol Insulin Human Lispro 2 - 10 unit 10/12/22 17:00 10/13/22 11:59 Insulin Lispro 300 Unit/3 Ml Pen SUBQ Not Given 0800,1200,1700,2100 [facility] Protocol Metoclopramide HCl 5 mg 10/13/22 12:00 10/13/22 12:01 Metoclopramide 10 Mg Tablet PO 5 mg ACHS SRIDEVI Administration Mirtazapine 45 mg 10/12/22 21:00 10/12/22 21:17 Mirtazapine 15 Mg Tablet PO 45 mg QPM SRIDEVI Administration Ondansetron HCl 4 mg 10/12/22 16:16 10/12/22 17:51 Ondansetron Odt 4 Mg Tablet TL 4 mg Q6HR PRN Administration Nausea / Vomiting Sodium Chloride 10 ml 10/12/22 17:00 10/13/22 08:45 Sodium Chloride Flush 0.9% 10 Ml Syringe IVP 10 ml 0100,0900,1700 SRIDEVI Administration - Lab Result Fish Bone Diagrams: 10/12/22 11:46 10/13/22 07:59 - Additional Planning My Orders: My Active Orders 10/12/22 16:16 Telemetry (24 Hour) [RC] Q4HR Acetaminophen [Tylenol] 650 mg PO Q4HR PRN Ondansetron Odt [Zofran Odt] 4 mg TL Q6HR PRN Sodium Chloride Flush 0.9% [Normal Saline Flush 0.9%] 10 ml IVP PRN PRN 10/12/22 16:17 Activity Orders [RC] Q2HR Blood Glucose Checks - Eating [RC] 0800,1200,1700,2100 IO [RC] IOSHIFT Incentive Spirometry - RT [RC] TID Initiate Bowel Care Protocol [RC] .protocol Initiate Hypoglycemia Protocol [RC] .protocol Initiate Line Care Protocol [RC] QSHIFT Initiate Personal Care Protoco [RC] .protocol Oxygen Therapy [RC] .PRN Vital Signs [RC] Q4HR Code Status [OTHERS] Routine Condition of Patient [OTHERS] Routine DVT Prophylaxis [OTHERS] Routine 10/12/22 17:00 Insulin Lispro [Humalog Kwikpen U-100] 2 - 10 unit SUBQ 0800,1200,1700,2100 Insulin Lispro [Humalog Kwikpen U-100] 5 unit SUBQ TIDWM Sodium Chloride Flush 0.9% [Normal Saline Flush 0.9%] 10 ml IVP 0100,0900,1700 10/12/22 18:41 Prochlorperazine Inj [Compazine Inj] 5 mg IVP Q6HR PRN 10/12/22 21:00 Atorvastatin [Lipitor] 80 mg PO QPM Insulin Glargine-Yfgn [Semglee] 10 unit SUBQ QPM Mirtazapine [Remeron] 45 mg PO QPM 10/13/22 Breakfast Carb-controlled Diet [DIET] 10/13/22 09:00 Enoxaparin [Lovenox] 40 mg SUBQ DAILY 10/13/22 12:00 Metoclopramide [Reglan] 5 mg PO ACHS 10/14/22 05:00 BMP - BASIC METABOLIC PANEL [CHEM] DAILYLAB 10/15/22 05:00 BMP - BASIC METABOLIC PANEL [CHEM] DAILYLAB 10/16/22 05:00 BMP - BASIC METABOLIC PANEL [CHEM] DAILYLAB Subjective - Subjective Patient Reports: Feeling Better Objective Vital Signs: Vital Signs - 24 hr 10/12/22 10/13/22 10/13/22 20:45 00:48 05:00 Temperature 36.4 C L 36.3 C L 36.3 C L Heart Rate [ 61 59 L 53 L Brachial] Respiratory 16 18 16 Rate Blood Pressure 134/74 H 150/79 H 137/74 H [Right Brachial artery] O2 Saturation 96 96 98 10/13/22 10/13/22 08:29 12:54 Temperature 36.3 C L 36.9 C Heart Rate [ 71 65 Brachial] Respiratory 18 18 Rate Blood Pressure 130/67 142/74 H [Right Brachial artery] O2 Saturation 96 97 Oxygen O2 Source [Without Activity] Room air O2 Source Room air I&O (Last 24 Hrs): Intake and Output Totals x24h 10/11/22 10/12/22 10/13/22 23:59 23:59 23:59 Intake Total 2700.00 820 Balance 2700.00 820 General: Alert, Oriented x3, Cooperative HEENT: Atraumatic Neck: Supple Neuro: Alert, Non Focal Cardiovascular: Regular rate, Normal S1, Normal S2 Respiratory: Breath sounds nml Abdomen: Normal bowel sounds, Soft - Results Results: Laboratory Results WBC 7.5 x10^3/uL (4.8-10.8) 10/12/22 11:46 RBC 4.65 10^6/uL (4.70-6.10) L 10/12/22 11:46 Hgb 13.9 g/dL (14.0-18.0) L 10/12/22 11:46 Hct 40.6 % (42.0-52.0) L 10/12/22 11:46 MCV 87.3 fL (80.0-94.0) 10/12/22 11:46 MCH 29.9 pg (27.0-31.0) 10/12/22 11:46 MCHC 34.2 g/dL (32.0-36.0) 10/12/22 11:46 RDW 12.1 % (12.0-15.0) 10/12/22 11:46 Plt Count 206 10^3/uL (130-450) 10/12/22 11:46 MPV 11.9 fL (7.4-11.4) H 10/12/22 11:46 Neut # (Auto) 5.7 10^3/uL (1.5-6.6) 10/12/22 11:46 Lymph # (Auto) 1.1 10^3/uL (1.5-3.5) L 10/12/22 11:46 Mathews # (Auto) 0.5 10^3/uL (0.0-1.0) 10/12/22 11:46 Eos # (Auto) 0.1 10^3/uL (0.0-0.7) 10/12/22 11:46 Baso # (Auto) 0.1 10^3/uL (0.0-0.1) 10/12/22 11:46 Absolute Nucleated RBC 0.00 x10^3/uL 10/12/22 11:46 Nucleated RBC % 0.0 /100WBC 10/12/22 11:46 VBG pH 7.493 (7.31-7.41) H 10/12/22 11:46 VBG pCO2 25.0 mmHg (41-51) L 10/12/22 11:46 VBG pO2 27.5 mmHg (25-47) 10/12/22 11:46 VBG HCO3 18.8 mmol/L (23-28) L 10/12/22 11:46 VBG Total CO2 19.5 mmol/L (24-29) L 10/12/22 11:46 VBG O2 Saturation 60.4 % (60-80) 10/12/22 11:46 VBG Base Excess -2.6 mmol/L (-2 - +2) L 10/12/22 11:46 Sodium 135 mmol/L (135-145) 10/13/22 07:59 Potassium 4.0 mmol/L (3.5-4.5) 10/13/22 07:59 Chloride 106 mmol/L (101-111) 10/13/22 07:59 Carbon Dioxide 24 mmol/L (21-32) 10/13/22 07:59 Anion Gap 5.0 (6-13) L 10/13/22 07:59 BUN 14 mg/dL (6-20) 10/13/22 07:59 Creatinine 0.9 mg/dL (0.6-1.3) 10/13/22 07:59 Estimated GFR (MDRD) 86 (>89) L 10/13/22 07:59 Glucose 289 mg/dL (74-104) H 10/13/22 07:59 POC Whole Bld Glucose 102 mg/dL (70 - 100) H 10/13/22 16:42 Estimat Average Glucose 160 mg/dL (70-100) H 10/12/22 11:46 Hemoglobin A1c % 7.2 % (4.27-6.07) H 10/12/22 11:46 Lactic Acid 0.9 mmol/L (0.5-2.2) 10/12/22 14:53 Calcium 8.8 mg/dL (8.5-10.3) 10/13/22 07:59 Total Bilirubin 1.2 mg/dL (0.2-1.0) H 10/12/22 11:46 AST 18 IU/L (10-42) 10/12/22 11:46 ALT 16 IU/L (10-60) 10/12/22 11:46 Alkaline Phosphatase 67 IU/L (42-121) 10/12/22 11:46 Total Protein 6.8 g/dL (6.4-8.9) 10/12/22 11:46 Albumin 4.3 g/dL (3.2-5.5) 10/12/22 11:46 Globulin 2.5 g/dL (2.1-4.2) 10/12/22 11:46 Albumin/Globulin Ratio 1.7 (1.0-2.2) 10/12/22 11:46 Lipase 73 U/L (11-82) 10/12/22 11:46 Urine Color YELLOW 10/12/22 16:00 Urine Clarity CLEAR (CLEAR) 10/12/22 16:00 Urine pH 5.0 PH (5.0-7.5) 10/12/22 16:00 Ur Specific [place] 1.020 (1.002-1.030) 10/12/22 16:00 Urine Protein NEGATIVE mg/dL (NEGATIVE) 10/12/22 16:00 Urine Glucose (UA) 500 mg/dL (NEGATIVE) H 10/12/22 16:00 Urine Ketones 40 mg/dL (NEGATIVE) H 10/12/22 16:00 Urine Occult Blood NEGATIVE (NEGATIVE) 10/12/22 16:00 Urine Nitrite NEGATIVE (NEGATIVE) 10/12/22 16:00 Urine Bilirubin NEGATIVE (NEGATIVE) 10/12/22 16:00 Urine Urobilinogen 0.2 (NORMAL) E.U./dL (NORMAL) 10/12/22 16:00 Ur Leukocyte Esterase NEGATIVE (NEGATIVE) 10/12/22 16:00 Ur Microscopic Review NOT INDICATED 10/12/22 16:00 Urine Culture Comments NOT INDICATED 10/12/22 16:00 Nasal Adenovirus (PCR) NOT DETECTED 10/12/22 12:35 Nasal B. parapertussis DNA (PCR) NOT DETECTED 10/12/22 12:35 Nasal Coronavir 229E PCR NOT DETECTED 10/12/22 12:35 Nasal Coronavir HKU1 PCR NOT DETECTED 10/12/22 12:35 Nasal Coronavir NL63 PCR NOT DETECTED 10/12/22 12:35 Nasal Coronavir OC43 PCR NOT DETECTED 10/12/22 12:35 Nasal Enterovir/Rhinovir PCR NOT DETECTED 10/12/22 12:35 Nasal Influenza B PCR NOT DETECTED 10/12/22 12:35 Nasal Influenza A PCR NOT DETECTED 10/12/22 12:35 Nasal Parainfluen 1 PCR NOT DETECTED 10/12/22 12:35 Nasal Parainfluen 2 PCR NOT DETECTED 10/12/22 12:35 Nasal Parainfluen 3 PCR NOT DETECTED 10/12/22 12:35 Nasal Parainfluen 4 PCR NOT DETECTED 10/12/22 12:35 Nasal RSV (PCR) NOT DETECTED 10/12/22 12:35 Nasal B.pertussis DNA PCR NOT DETECTED 10/12/22 12:35 Nasal C.pneumoniae (PCR) NOT DETECTED 10/12/22 12:35 Severo Human Metapneumo PCR NOT DETECTED 10/12/22 12:35 Nasal M.pneumoniae (PCR) NOT DETECTED 10/12/22 12:35 Nasal SARS-CoV-2 (PCR) NOT DETECTED 10/12/22 12:35 Urine Opiates Screen NEGATIVE (NEGATIVE) 10/12/22 16:00 Ur Oxycodone Screen NEGATIVE (NEGATIVE) 10/12/22 16:00 Urine Methadone Screen NEGATIVE (NEGATIVE) 10/12/22 16:00 Ur Propoxyphene Screen NEGATIVE (NEGATIVE) 10/12/22 16:00 Ur Barbiturates Screen NEGATIVE (NEGATIVE) 10/12/22 16:00 Ur Tricyclics Screen NEGATIVE (NEGATIVE) 10/12/22 16:00 Ur Phencyclidine Scrn NEGATIVE (NEGATIVE) 10/12/22 16:00 Ur Amphetamine Screen POSITIVE (NEGATIVE) H 10/12/22 16:00 U Methamphetamines Scrn NEGATIVE (NEGATIVE) 10/12/22 16:00 U Benzodiazepines Scrn NEGATIVE (NEGATIVE) 10/12/22 16:00 Urine Cocaine Screen NEGATIVE (NEGATIVE) 10/12/22 16:00 U Cannabinoids Screen POSITIVE (NEGATIVE) H 10/12/22 16:00 Ethyl Alcohol < 10.0 mg/dL 10/12/22 14:53 Serum Ketones SMALL (NEGATIVE) H 10/12/22 11:46 - Procedures Procedures: Procedures CENTRAL VENOUS CATHETER PLACEMENT WITH GUIDANCE (11/03/14) INSERTION OF INFUSION DEV INTO SUP VENA CAVA, PERC APPROACH (08/19/22) ABX Reporting Has patient been on IV antibiotics over the past 48 hours?: No
--- NOTE | 2022-10-13 19:20 | CT Report ---
PROCEDURE: CT Angio Head/Neck INDICATIONS: acute encephalopathy TECHNIQUE: After the administration of intravenous contrast, 1 mm thick sections acquired from the aortic arch t hrough the [place] of [place]. 3-dimensional lmgtdlz-tdovzscdr-vpgqzfpwti (MIP) and/or volume renderin g reformats were acquired of the central intracranial vasculature and neck separately. For radiation dose reduction, the following was used: automated exposure control, adjustment of mA and/or kV acco rding to patient size. CONTRAST: Omnipaque 300, 80 mL COMPARISON: CTA head and neck dated 08/24/2022, CT head without contrast dated 10/12/2022 FINDINGS: Image quality: Excellent. BRAIN: CSF spaces: Ventricles are normal in size and shape. Basal cisterns are patent. No extra-axial flu id collections. Brain: No midline shift. No intracranial bleeds or masses. Mcdaniel-white matter interface appears int act. Skull and face: Calvarium and facial bones appear intact, without suspicious lesions. Orbits appear normal. Sinuses: Sinuses and mastoids are clear. HEAD CT ANGIOGRAPHY: Anterior circulation: Intracranial internal carotid arteries are normal in size and flow. The flow within the paired anterior cerebral arteries is normal and symmetric. The flow within the middle cer ebral arteries is normal and symmetric. The anterior communicating artery is seen. No aneurysms are seen. Posterior circulation: Visualized portions of the vertebral arteries demonstrate normal caliber, and join to form a normal appearing basilar artery. Flow within the posterior cerebral arteries is norm al and symmetric. No aneurysms are seen. NECK CT ANGIOGRAPHY: Carotid system: The great vessels demonstrate a conventional anatomy as they arise from the aortic a rc. The origins of the common carotid arteries appear patent. The common carotid arteries demonstr ate normal caliber and courses. The bifurcation regions are both widely patent. Mild bilateral proxi mal internal carotid stenotic disease, less than 50%. Posterior circulation: The origins of the vertebral arteries both appear widely patent. The more granda perior extracranial portions of both vertebral arteries also demonstrate normal courses and calibers. The right vertebral artery is somewhat diminutive. The left vertebral artery is dominant. They join to form a normal appearing basilar artery. Soft tissues: Visualized neck soft tissues demonstrate no suspicious abnormalities. Bones: No suspicious bony lesions. Visualized cervical spine appears normally aligned. IMPRESSION: 1. Unremarkable CTA head. No stenosis, aneurysm, occlusion, or focal filling defect. 2. Mild bilateral proximal internal carotid artery stenotic disease, less than 50%. Comment: If suspect acute infarct, consider MRI. The estimate of stenosis included in the report of the imaging study was calculated using the NASCET method Reviewed by: Wellington Zhu MD on 10/13/2022 7:19 PM PDT Approved by: Wellington Zhu MD on 10/13/2022 7:19 PM PDT Station ID: [id number]
[2022-10-13] MEDS: ATORVASTATIN 40 MG TABLET PO SCH (21:07)
[2022-10-13] MEDS: MIRTAZAPINE 15 MG TABLET PO SCH (21:07)
[2022-10-13] MEDS: INSULIN GLARGINE-YFGN 300 UNIT/3 ML PEN SUBQ SCH (21:08)
[2022-10-14] MEDS: SODIUM CHLORIDE FLUSH 0.9% 10 ML SYRINGE IVP SCH ×3 (00:28→20:56)
[2022-10-14] MEDS: METOCLOPRAMIDE 10 MG TABLET PO SCH ×4 (06:41→20:54)
[2022-10-14] MEDS ORDERED: LORazepam 1 MG TABLET PO PRN (07:12)
[2022-10-14] MEDS: ENOXAPARIN 40 MG/0.4 ML SYRINGE SUBQ SCH (08:18)
[2022-10-14] MEDS: INSULIN LISPRO 300 UNIT/3 ML PEN SUBQ SCH ×7 (08:19→20:52)
[2022-10-14] MEDS: SODIUM CHLORIDE FLUSH 0.9% 10 ML SYRINGE IVP PRN ×2 (09:16→14:41)
[2022-10-14] MEDS ORDERED: INSULIN LISPRO 300 UNIT/3 ML PEN SUBQ ONE ×2 (09:40→11:25)
[2022-10-14 11:54] LABS: POTASSIUM 4.3 mmol/L (3.5-4.5)
[2022-10-14] MEDS ORDERED: LORazepam 2 MG/ML VIAL IVP PRN (13:06)
[2022-10-14] MEDS ORDERED: INSULIN LISPRO 300 UNIT/3 ML PEN SUBQ SCH ×2 (14:07→15:00)
--- NOTE | 2022-10-14 16:14 | MRI Report ---
PROCEDURE: BRAIN WO INDICATIONS: ACUTE ENCEPHALOPATHY TECHNIQUE: Noncontrast axial T1 spin echo, axial T2 fast spin echo, sagittal and axial FLAIR, coronal T2 fast sp in echo, axial gradient echo, axial diffusion and ADC through the brain. COMPARISON: MRI brain 03/20/2019 FINDINGS: Image quality: Excellent. CSF Spaces: Basal cisterns are patent. No extra-axial fluid collections. Ventricles are normal in size and shape. Brain: No intracranial masses or hemorrhage. Mcdaniel/white matter interface is normal. Diffusion-weig hted images demonstrate no acute ischemic insult. Mild chronic microvascular ischemic change involvin g the periventricular white matter in the tomasz. No chronic ischemic insults. Normal intravascular f low voids are present. Skull and face: Calvarium has normal marrow signal. Orbits appear normal. Sinuses: Diffuse paranasal sinus mucosal thickening. Bilateral maxillary sinus mucous retention cyst. Mastoids are clear. IMPRESSION: 1.No findings to explain patient's symptoms. No acute infarct or other acute intracranial abnormaliti es. 2.Mild age-related volume loss and chronic microvascular ischemic change. Reviewed by: Luis Angel Lee MD on 10/14/2022 4:12 PM PDT Approved by: Luis Angel Lee MD on 10/14/2022 4:12 PM PDT Station ID: [id number]
--- NOTE | 2022-10-14 17:14 | PROVIDER PROGRESS NOTE ---
Assessment/Plan - Problem List (1) Acute encephalopathy Assessment/Plan: Assessment/Plan: Conclusion/Plan: Patient presented with obtundation per ER GEOSPATIAL IMAGE ANALYST. Patient thought he was in DKA but was not. CT of head without contrast was negative. Patient also was hyperventilating per ER GEOSPATIAL IMAGE ANALYST and CTA PE protocol was negative. Patient has ordered CTA head and neck, MRI of brain without contrast. Upon my visit patient was awake and oriented and answering questions appropriately.Check urine tox screen and alcohol level. 10/13- Urine tox screen was positive for amphetamine which is a prescription drug he takes along with cannabinoids which she says he uses nightly.Alcohol level was negative 10/14-MRI Brain reveals no acute findings. Pt has had no recurrence of altered mental status (2) Elevated lactic acid level Conclusion/Plan: Patient was given IV fluids in the emergency room and repeat lactic acid level was normal. (3) SAMUEL (acute kidney injury) Conclusion/Plan: Patient's previous labs showed a BUN of 17 creatinine of 0.9 in August 2022 and today his BUN was 26 creatinine 1.1 with a GFR of 69. Suspect secondary to poor hydration.October 13 GFR was 80 with a BUN of 14 creatinine 0.9. (4) T1DM (type 1 diabetes mellitus) Conclusion/Plan: Will not use patient's insulin pump which is removed in ER.. We will go ahead and put on Lantus subcu 10 units a.m. and p.m. Monitor glucoses. Will also put on mealtime insulin 5 units and put on medium protocol for correction dose insulin coverage. 10/14- Elevated glu this AM possible secondary to agitation over conversation with his this AM. Increased lantus to 20 units BID. - Current Meds Current Meds: Current Medications Generic Name Dose Route Start Last Admin Trade Name Freq PRN Reason Stop Dose Admin Atorvastatin Calcium 80 mg 10/12/22 21:00 10/13/22 21:07 Atorvastatin 40 Mg Tablet PO 80 mg QPM SRIDEVI Administration Enoxaparin Sodium 40 mg 10/13/22 09:00 10/14/22 08:18 Enoxaparin 40 Mg/0.4 Ml Syringe SUBQ 40 mg DAILY SRIDEVI Administration Insulin Human Lispro 5 unit 10/12/22 17:00 10/14/22 16:50 Insulin Lispro 300 Unit/3 Ml Pen SUBQ 5 unit TIDWM SRIDEVI Administration Protocol Insulin Human Lispro 3 - 11 unit 10/14/22 08:00 10/14/22 16:51 Insulin Lispro 300 Unit/3 Ml Pen SUBQ 5 unit 0800,1200,1700,2100 SRIDEVI Administration Protocol Insulin Human Lispro 10 unit 10/14/22 14:07 10/14/22 14:14 Insulin Lispro 300 Unit/3 Ml Pen SUBQ 10/15/22 14:06 10 unit ONCE SRIDEVI Administration Lorazepam 1 mg 10/14/22 07:12 10/14/22 08:18 Lorazepam 1 Mg Tablet PO 1 mg Q6H PRN Administration Anxiety Lorazepam 1 mg 10/14/22 13:06 10/14/22 14:41 Lorazepam 2 Mg/Ml Vial IVP 10/15/22 13:05 1 mg ONCE PRN Administration mri Metoclopramide HCl 5 mg 10/13/22 12:00 10/14/22 16:32 Metoclopramide 10 Mg Tablet PO 5 mg ACHS SRIDEVI Administration Mirtazapine 45 mg 10/12/22 21:00 10/13/22 21:07 Mirtazapine 15 Mg Tablet PO 45 mg QPM SRIDEVI Administration Ondansetron HCl 4 mg 10/12/22 16:16 10/12/22 17:51 Ondansetron Odt 4 Mg Tablet TL 4 mg Q6HR PRN Administration Nausea / Vomiting Prochlorperazine Edisylate 5 mg 10/12/22 18:41 10/14/22 09:16 Prochlorperazine 10 Mg/2 Ml Vial IVP 5 mg Q6HR PRN Administration Nausea / Vomiting Sodium Chloride 10 ml 10/12/22 16:16 10/14/22 14:41 Sodium Chloride Flush 0.9% 10 Ml Syringe IVP 10 ml PRN PRN Administration NEEDED PER PROVIDER ORDERS Sodium Chloride 10 ml 10/12/22 17:00 10/14/22 08:20 Sodium Chloride Flush 0.9% 10 Ml Syringe IVP 10 ml 0100,0900,1700 SRIDEVI Administration - Lab Result Fish Bone Diagrams: 10/12/22 11:46 10/14/22 11:17 - Additional Planning My Orders: My Active Orders 10/14/22 07:12 LORazepam [Ativan] 1 mg PO Q6H PRN 10/14/22 08:00 Insulin Lispro [Humalog Kwikpen U-100] 3 - 11 unit SUBQ 0800,1200,1700,2100 10/14/22 13:06 LORazepam INJ [Ativan Inj (Vial)] 1 mg IVP ONCE PRN 10/14/22 14:07 Insulin Lispro [Humalog Kwikpen U-100] 10 unit SUBQ ONCE 10/14/22 21:00 Insulin Glargine-Yfgn [Semglee] 20 unit SUBQ BID 10/15/22 05:00 BMP - BASIC METABOLIC PANEL [CHEM] DAILYLAB 10/16/22 05:00 BMP - BASIC METABOLIC PANEL [CHEM] DAILYLAB Subjective - Subjective Patient Reports: Other (Elevated BS this AM.) Objective Vital Signs: Vital Signs - 24 hr 10/13/22 10/14/22 10/14/22 21:00 00:19 04:18 Temperature 36.5 C 36.3 C L 36.8 C Heart Rate [ 61 52 L 58 L Brachial] Respiratory 18 16 14 Rate Blood Pressure 147/67 H 143/71 H 141/81 H [Right Brachial artery] O2 Saturation 96 95 95 10/14/22 10/14/22 07:21 14:00 Temperature 36.4 C L 36.4 C L Heart Rate [ 82 89 Brachial] Respiratory 16 17 Rate Blood Pressure 130/64 141/81 H [Right Brachial artery] O2 Saturation 100 96 Oxygen O2 Source [Without Activity] Room air O2 Source Room air I&O (Last 24 Hrs): Intake and Output Totals x24h 10/12/22 10/13/22 10/14/22 23:59 23:59 23:59 Intake Total 2700.00 1650 770 Balance 2700.00 1650 770 General: Alert, Oriented x3, Cooperative HEENT: Atraumatic, PERRLA Neck: Supple Neuro: Alert, Non Focal Cardiovascular: Regular rate, Normal S1, Normal S2 Respiratory: Breath sounds nml Abdomen: Normal bowel sounds, Soft Skin: No rashes - Results Results: Laboratory Results WBC 7.5 x10^3/uL (4.8-10.8) 10/12/22 11:46 RBC 4.65 10^6/uL (4.70-6.10) L 10/12/22 11:46 Hgb 13.9 g/dL (14.0-18.0) L 10/12/22 11:46 Hct 40.6 % (42.0-52.0) L 10/12/22 11:46 MCV 87.3 fL (80.0-94.0) 10/12/22 11:46 MCH 29.9 pg (27.0-31.0) 10/12/22 11:46 MCHC 34.2 g/dL (32.0-36.0) 10/12/22 11:46 RDW 12.1 % (12.0-15.0) 10/12/22 11:46 Plt Count 206 10^3/uL (130-450) 10/12/22 11:46 MPV 11.9 fL (7.4-11.4) H 10/12/22 11:46 Neut # (Auto) 5.7 10^3/uL (1.5-6.6) 10/12/22 11:46 Lymph # (Auto) 1.1 10^3/uL (1.5-3.5) L 10/12/22 11:46 [place] # (Auto) 0.5 10^3/uL (0.0-1.0) 10/12/22 11:46 Eos # (Auto) 0.1 10^3/uL (0.0-0.7) 10/12/22 11:46 Baso # (Auto) 0.1 10^3/uL (0.0-0.1) 10/12/22 11:46 Absolute Nucleated RBC 0.00 x10^3/uL 10/12/22 11:46 Nucleated RBC % 0.0 /100WBC 10/12/22 11:46 VBG pH 7.493 (7.31-7.41) H 10/12/22 11:46 VBG pCO2 25.0 mmHg (41-51) L 10/12/22 11:46 VBG pO2 27.5 mmHg (25-47) 10/12/22 11:46 VBG HCO3 18.8 mmol/L (23-28) L 10/12/22 11:46 VBG Total CO2 19.5 mmol/L (24-29) L 10/12/22 11:46 VBG O2 Saturation 60.4 % (60-80) 10/12/22 11:46 VBG Base Excess -2.6 mmol/L (-2 - +2) L 10/12/22 11:46 Sodium 133 mmol/L (135-145) L 10/14/22 11:17 Potassium 4.3 mmol/L (3.5-4.5) 10/14/22 11:17 Chloride 102 mmol/L (101-111) 10/14/22 11:17 Carbon Dioxide 19 mmol/L (21-32) L 10/14/22 11:17 Anion Gap 12.0 (6-13) 10/14/22 11:17 BUN 16 mg/dL (6-20) 10/14/22 11:17 Creatinine 1.0 mg/dL (0.6-1.3) 10/14/22 11:17 Estimated GFR (MDRD) 76 (>89) L 10/14/22 11:17 Glucose 384 mg/dL (74-104) H 10/14/22 11:17 POC Whole Bld Glucose 217 mg/dL (70 - 100) H 10/14/22 16:49 Estimat Average Glucose 160 mg/dL (70-100) H 10/12/22 11:46 Hemoglobin A1c % 7.2 % (4.27-6.07) H 10/12/22 11:46 Lactic Acid 0.9 mmol/L (0.5-2.2) 10/12/22 14:53 Calcium 9.0 mg/dL (8.5-10.3) 10/14/22 11:17 Total Bilirubin 1.2 mg/dL (0.2-1.0) H 10/12/22 11:46 AST 18 IU/L (10-42) 10/12/22 11:46 ALT 16 IU/L (10-60) 10/12/22 11:46 Alkaline Phosphatase 67 IU/L (42-121) 10/12/22 11:46 Total Protein 6.8 g/dL (6.4-8.9) 10/12/22 11:46 Albumin 4.3 g/dL (3.2-5.5) 10/12/22 11:46 Globulin 2.5 g/dL (2.1-4.2) 10/12/22 11:46 Albumin/Globulin Ratio 1.7 (1.0-2.2) 10/12/22 11:46 Lipase 73 U/L (11-82) 10/12/22 11:46 Urine Color YELLOW 10/12/22 16:00 Urine Clarity CLEAR (CLEAR) 10/12/22 16:00 Urine pH 5.0 PH (5.0-7.5) 10/12/22 16:00 Ur Specific [place] 1.020 (1.002-1.030) 10/12/22 16:00 Urine Protein NEGATIVE mg/dL (NEGATIVE) 10/12/22 16:00 Urine Glucose (UA) 500 mg/dL (NEGATIVE) H 10/12/22 16:00 Urine Ketones 40 mg/dL (NEGATIVE) H 10/12/22 16:00 Urine Occult Blood NEGATIVE (NEGATIVE) 10/12/22 16:00 Urine Nitrite NEGATIVE (NEGATIVE) 10/12/22 16:00 Urine Bilirubin NEGATIVE (NEGATIVE) 10/12/22 16:00 Urine Urobilinogen 0.2 (NORMAL) E.U./dL (NORMAL) 10/12/22 16:00 Ur Leukocyte Esterase NEGATIVE (NEGATIVE) 10/12/22 16:00 Ur Microscopic Review NOT INDICATED 10/12/22 16:00 Urine Culture Comments NOT INDICATED 10/12/22 16:00 Nasal Adenovirus (PCR) NOT DETECTED 10/12/22 12:35 Nasal B. parapertussis DNA (PCR) NOT DETECTED 10/12/22 12:35 Nasal Coronavir 229E PCR NOT DETECTED 10/12/22 12:35 Nasal Coronavir HKU1 PCR NOT DETECTED 10/12/22 12:35 Nasal Coronavir NL63 PCR NOT DETECTED 10/12/22 12:35 Nasal Coronavir OC43 PCR NOT DETECTED 10/12/22 12:35 Nasal Enterovir/Rhinovir PCR NOT DETECTED 10/12/22 12:35 Nasal Influenza B PCR NOT DETECTED 10/12/22 12:35 Nasal Influenza A PCR NOT DETECTED 10/12/22 12:35 Nasal Parainfluen 1 PCR NOT DETECTED 10/12/22 12:35 Nasal Parainfluen 2 PCR NOT DETECTED 10/12/22 12:35 Nasal Parainfluen 3 PCR NOT DETECTED 10/12/22 12:35 Nasal Parainfluen 4 PCR NOT DETECTED 10/12/22 12:35 Nasal RSV (PCR) NOT DETECTED 10/12/22 12:35 Nasal B.pertussis DNA PCR NOT DETECTED 10/12/22 12:35 Nasal C.pneumoniae (PCR) NOT DETECTED 10/12/22 12:35 Severo Human Metapneumo PCR NOT DETECTED 10/12/22 12:35 Nasal M.pneumoniae (PCR) NOT DETECTED 10/12/22 12:35 Nasal SARS-CoV-2 (PCR) NOT DETECTED 10/12/22 12:35 Urine Opiates Screen NEGATIVE (NEGATIVE) 10/12/22 16:00 Ur Oxycodone Screen NEGATIVE (NEGATIVE) 10/12/22 16:00 Urine Methadone Screen NEGATIVE (NEGATIVE) 10/12/22 16:00 Ur Propoxyphene Screen NEGATIVE (NEGATIVE) 10/12/22 16:00 Ur Barbiturates Screen NEGATIVE (NEGATIVE) 10/12/22 16:00 Ur Tricyclics Screen NEGATIVE (NEGATIVE) 10/12/22 16:00 Ur Phencyclidine Scrn NEGATIVE (NEGATIVE) 10/12/22 16:00 Ur Amphetamine Screen POSITIVE (NEGATIVE) H 10/12/22 16:00 U Methamphetamines Scrn NEGATIVE (NEGATIVE) 10/12/22 16:00 U Benzodiazepines Scrn NEGATIVE (NEGATIVE) 10/12/22 16:00 Urine Cocaine Screen NEGATIVE (NEGATIVE) 10/12/22 16:00 U Cannabinoids Screen POSITIVE (NEGATIVE) H 10/12/22 16:00 Ethyl Alcohol < 10.0 mg/dL 10/12/22 14:53 Serum Ketones SMALL (NEGATIVE) H 10/12/22 11:46 - Procedures Procedures: Procedures CENTRAL VENOUS CATHETER PLACEMENT WITH GUIDANCE (11/03/14) INSERTION OF INFUSION DEV INTO SUP VENA CAVA, PERC APPROACH (08/19/22) ABX Reporting Has patient been on IV antibiotics over the past 48 hours?: No
[2022-10-14] MEDS: ATORVASTATIN 40 MG TABLET PO SCH (20:51)
[2022-10-14] MEDS: MIRTAZAPINE 15 MG TABLET PO SCH (20:52)
[2022-10-14] MEDS: INSULIN GLARGINE-YFGN 300 UNIT/3 ML PEN SUBQ SCH (20:52)
[2022-10-15] MEDS: SODIUM CHLORIDE FLUSH 0.9% 10 ML SYRINGE IVP SCH ×2 (02:21→08:30)
[2022-10-15 05:54] LABS: CALCIUM 8.8 mg/dL (8.5-10.3)
[2022-10-15] MEDS: METOCLOPRAMIDE 10 MG TABLET PO SCH ×2 (06:27→12:17)
[2022-10-15] MEDS: INSULIN GLARGINE-YFGN 300 UNIT/3 ML PEN SUBQ SCH (08:28)
[2022-10-15] MEDS: INSULIN LISPRO 300 UNIT/3 ML PEN SUBQ SCH ×4 (08:28→12:15)
[2022-10-15] MEDS: ENOXAPARIN 40 MG/0.4 ML SYRINGE SUBQ SCH (08:29)
[2022-10-15 11:24] VITALS: BP 145/84
--- NOTE | 2022-10-15 11:33 | Discharge Plan ---
Discharge Plan Problem Reviewed?: Yes Disposition: Home, Self Care Condition: Good Diet: Regular Activity Restrictions: Activity as Tolerated Shower Restrictions: No Driving Restrictions: No Health Concerns: You presented with another episode of confusion, word finding difficulties. You have done this before. The only thing we can think of is that you may be super sensitive to the use of cannabinoids. Blood work was normal. MRI of the brain was normal. You did not have an infection. Plan of Treatment: We monitored you for signs and symptoms of infection, stroke, heart attack. None of them were present. You gradually normalized your alertness, speech, and memory. We do find that you have memory deficits. We are recommending that you stop using cannabinoids for a minimum of 6 to 9 months. I would also like your primary care provider to refer you for neuropsych evaluation to test your memory and cognitive function. You have terrible problems with sleeping and that is why you use marijuana. I am also asking that your primary care provider send you to a sleep clinic to discuss sleep hygiene and possible treatment for insomnia. Care Goals: At the base of this is a need to get a regular sleep cycle. That would be your goal Assessment: Patient is alert, oriented, lucid conversation at this point in time No Smoking: If you smoke, Please STOP! Call for help. Follow-up with: Zackary Dean MD [Provider Admit Priv/Credential] -
--- NOTE | 2022-10-15 12:00 | DISCHARGE SUMMARY ---
"Discharge Summary Admit Date: 10/12/22 Discharge Date: 10/15/22 Discharging Provider: waldo Sales MD Primary Care Provider: Zackary Dean Condition at Discharge: Good Discharge Disposition: 01 Home, Self Care - DIAGNOSES Discharge Diagnoses with Status of Each Condition: 1. Acute metabolic encephalopathy, unclear etiology 2. Chronic hyponatremia 3. Type 1 diabetes mellitus, without complications, on long-term insulin 4. Acute renal insufficiency resolved 5. Lactic acidosis resolved 6. Chronic marijuana use 7. Chronic insomnia - HPI History of Present Illness: Is a 56-year-old male with past medical history is significant for type 1 diabetes for which he is on an insulin pump. He has episodes of nausea poor appetite I believe he had told me past admission he has a history of gastroparesis. He was seen last night in the emergency room he thought he had DKA but did not he got some IV fluids and was sent home. He presents again today with increased lethargy. Per nurse practitioner in the emergency room patient was obtunded and finally did arouse. He did have urine ketones but was not in DKA per blood gas. I had requested CT of head without contrast and CTA PE protocol which were negative. - Past Medical History Cardiovascular: reports: Hypertension, High cholesterol, Arrhythmia, Other Respiratory: reports: Pneumonia Neuro: reports: Dementia, CVA, Fainting, Other Endocrine/Autoimmune: reports: Type 1 diabetes, HyPOthyroidism GI: reports: GERD, Ulcers, Colon polyps : reports: Other HEENT: reports: Other Psych: reports: Depression, Anxiety, ADD/ADHD Musculoskeletal: reports: Chronic back pain, Other Derm: reports: None MRSA Hx?: No - Past Surgical History General: reports: Colonoscopy Ortho: reports: Carpal Tunnel surgery, Other Cardiovascular: reports: Other HEENT: reports: Other - CONSULTS | PROCEDURES Procedures: Chest x-ray is without acute cardiopulmonary process Head CT has no intracranial hemorrhage or mass effect noted. Study limited by motion artifact Chest/thorax CT angiogram with no acute findings. No evidence of pulmonary embolism or aortic aneurysm CT angio of head and neck has unremarkable CTA head. Mild bilateral proximal internal carotid artery stenotic lesions less than 50%. Brain MRI without any findings to explain patient's symptoms. No acute infarct or other acute intracranial abnormality. Mild age-related volume loss and chronic microvascular ischemic changes. Blood cultures without growth after 2 days Toxicology screen positive for amphetamines and cannabinoids. Small amount of ketones. Ethyl alcohol less than 10. - HOSPITAL COURSE Hospital Course: This patient has presented with the same scenario before. We observe him for a day or 2. Provide him with IV fluids for support. And he gradually comes to baseline mentation. Nursing and physical therapy both feel he has some cognitive deficits with memory loss. Patient does not. He also uses marijuana on a regular basis. He has presented with cyclical vomiting in the past. I have postulated that he may be having side effects from the chronic marijuana use. And I have asked him to not use any for the next 6 to 9 months. He states that he needs it for sleep. I asked him to please be sent to a sleep clinic to go over the techniques of sleep hygiene, dietary restrictions, etc. that would help him with better sleep. And also see if there is an underlying problem with dysthymia or depression they can also be addressed to help him sleep. Lactic acidosis resolved. Acute renal insufficiency due to poor p.o. intake resolved. I have also suggested he have a more complete evaluation with regards to cognitive function. I would recommend a neuropsych evaluation. [facility] has a neuropsychologist, Rylee Booker PsyD. [phone]. [facility] There are also Neuropsychological Assessments thru Services at [facility]. Patient felt he was back to baseline. As such he is discharged in stable condition, temperature is 37.0. Heart rate 71. Blood pressure 145/84. Respirations 16. 95% on room air. He is a 6 foot 1 male, 86.5 kg. Looks older than stated age. Some teeth are missing. Shotty neck adenopathy that appears chronic. Supple. No bruits. Diminished breath sounds at the bases but otherwise clear. Regular rate and rhythm. And abdomen that soft, nontender, normal bowel sounds. Extremities without edema. He ambulates in the room with out any assistance. This document was made in part using voice recognition software. While efforts are made to proofread this document, sound alike and grammatical errors may occur. Greater than 30 minutes was spent coordinating discharge - ALLERGIES Allergies/Adverse Reactions: Allergies Allergy/AdvReac Type Severity Reaction Status Date / Time omeprazole Allergy Intermediate Nausea Verified 10/11/22 15:07 insulin aspart Allergy Unknown Verified 10/11/22 15:07 [From Novolog U-100 Insulin aspart] insulin aspart protamine Allergy Unknown Verified 10/11/22 15:07 human [From Novolog Mix 70-30 U-100 Insuln] codeine AdvReac Severe Dizziness Verified 10/11/22 15:07 doxycycline AdvReac Intermediate Dizziness Verified 10/11/22 15:07 - MEDICATIONS Home Medications: Ambulatory Orders Medication Instructions Recorded Confirmed Atorvastatin Calcium [Lipitor] 80 mg PO QPM 05/30/21 10/13/22 Donepezil HCl [Aricept] 10 mg PO DAILY 05/30/21 10/13/22 Mirtazapine 45 mg PO QPM 05/30/21 10/13/22 DULoxetine [Cymbalta] 30 mg PO DAILY 01/26/22 10/13/22 Tamsulosin [Flomax] 0.4 mg PO DAILY 01/26/22 10/13/22 Lisdexamfetamine Dimesylate 20 mg PO DAILY 07/03/22 10/13/22 [Vyvanse] Insulin Lispro 83 unit SUBQ .INSULIN PUMP 07/04/22 10/13/22 Losartan Potassium 25 mg PO DAILY 07/04/22 10/13/22 - LABS Result Diagrams: 10/12/22 11:46 10/15/22 05:03"
== END 2022-10-15 13:45 | disposition home or self-care (01) | DRG 71 ==
LOC: ED 10:50 → MS2 16:16 → OBSVTOIN 10-14 11:17
PROVIDERS: ADMIT Specialist; ATTEND Specialist
DX: G93.40 Encephalopathy, unspecified (principal); E87.5 Hyperkalemia; E87.20 Acidosis, unspecified; D64.9 Anemia, unspecified; N17.9 Acute kidney failure, unspecified; E10.65 Type 1 diabetes mellitus with hyperglycemia; I10 Essential (primary) hypertension; E78.00 Pure hypercholesterolemia, unspecified; F03.90 Unspecified dementia, unspecified severity, without behavioral disturbance, psychotic disturbance, mood disturbance, and anxiety; E03.9 Hypothyroidism, unspecified; K21.9 Gastro-esophageal reflux disease without esophagitis; F32.A Depression, unspecified; F41.9 Anxiety disorder, unspecified; G47.00 Insomnia, unspecified; F90.9 Attention-deficit hyperactivity disorder, unspecified type; G89.29 Other chronic pain; R06.02 Shortness of breath; R07.9 Chest pain, unspecified; Z20.822 Contact with and (suspected) exposure to COVID-19; M54.9 Dorsalgia, unspecified; Z79.4 Long term (current) use of insulin; Z79.899 Other long term (current) drug therapy; Z82.3 Family history of stroke; Z82.49 Family history of ischemic heart disease and other diseases of the circulatory system; Z87.891 Personal history of nicotine dependence; Z96.41 Presence of insulin pump (external) (internal)
CPT/HCPCS: 36415; 70450; 70496; 70498; 70551; 71045; 71275; 80048; 80053; 80306; 81003; 82009; 82803; 83036; 83605; 83690; 85025; 87040; 87633; 93005; 96361; 96374; 96376; 99285; A9270; G0480; J1650; J1815; J2060; J8499; Q0162; Q9967; 80320; 81001; 87086

== ENCOUNTER 2023-02-11 19:53 | Emergency (ER) | payer MEDICARE ==
[2023-02-11] MEDS ORDERED: SODIUM CHLORIDE 0.9% 1,000 ML IV STA (20:46)
--- NOTE | 2023-02-11 20:47 | ED Physician Documentation ---
History of Present Illness - Stated complaint Stated Complaint: HIGH BLOOD SUGAR - Chief complaint Chief Complaint: General - Additonal information Additional information: Type I diabetic male here for evaluation of hyperglycemia. He states that for much of the last 24 hours he has had blood glucose greater than 400. He does have a continuous glucose monitor. Also has an insulin pump in place. has a insulin pump with humalog with a basal rate of 8 units an hour. He has been bolusing himself some insulin which will briefly drop his sugars into the 200s before they rise. No fevers, abdominal pain, nausea, vomiting headache, chest pain or cough. He is frustrated with poor glycemic control. Followed by Dr. Dean. Review of Systems Constitutional: denies: Fever, Chills, Myalgias Eyes: reports: Reviewed and negative Nose: denies: Rhinorrhea / runny nose, Congestion Cardiac: reports: Reviewed and negative Respiratory: reports: Reviewed and negative GI: reports: Reviewed and negative : reports: Reviewed and negative PD PAST MEDICAL HISTORY - Past Medical History Past Medical History: Yes Cardiovascular: Hypertension, High cholesterol, Arrhythmia, Other Respiratory: Pneumonia Neuro: Dementia, CVA, Fainting, Other Endocrine/Autoimmune: Type 1 diabetes, HyPOthyroidism GI: GERD, Ulcers, Colon polyps : Other HEENT: Other Psych: Depression, Anxiety, ADD/ADHD Musculoskeletal: Chronic back pain, Other Derm: None - Past Surgical History Past Surgical History: Yes General: Colonoscopy Ortho: Carpal Tunnel surgery, Other Cardiovascular: Other HEENT: Other - Present Medications Home Medications: Ambulatory Orders Medication Instructions Recorded Confirmed Atorvastatin Calcium [Lipitor] 80 mg PO QPM 05/30/21 10/13/22 Donepezil HCl [Aricept] 10 mg PO DAILY 05/30/21 10/13/22 Mirtazapine 45 mg PO QPM 05/30/21 10/13/22 DULoxetine [Cymbalta] 30 mg PO DAILY 01/26/22 10/13/22 Tamsulosin [Flomax] 0.4 mg PO DAILY 01/26/22 10/13/22 Lisdexamfetamine Dimesylate 20 mg PO DAILY 07/03/22 10/13/22 [Vyvanse] Insulin Lispro 83 unit SUBQ .INSULIN PUMP 07/04/22 10/13/22 Losartan Potassium 25 mg PO DAILY 07/04/22 10/13/22 - Allergies Allergies/Adverse Reactions: Allergies Allergy/AdvReac Type Severity Reaction Status Date / Time omeprazole Allergy Intermediate Nausea Verified 02/11/23 20:26 insulin aspart Allergy Unknown Verified 02/11/23 20:26 [From Novolog U-100 Insulin aspart] insulin aspart protamine Allergy Unknown Verified 02/11/23 20:26 human [From Novolog Mix 70-30 U-100 Insuln] codeine AdvReac Severe Dizziness Verified 02/11/23 20:26 doxycycline AdvReac Intermediate Dizziness Verified 02/11/23 20:26 - Social History Does the pt smoke?: No Smoking Status: Never smoker Does the pt drink ETOH?: No Does the pt have substance abuse?: No - Immunizations Immunizations are current?: Yes - POLST Patient has POLST: No POLST Status: Full Code PD ED PE NORMAL - General General: Alert and oriented X 3, No acute distress, Well developed/nourished - HEENT HEENT: Atraumatic, Ears normal - Neck Neck: Supple, no meningeal sign - Cardiac Cardiac: RRR, No murmur - Respiratory Respiratory: No respiratory distress, Clear bilaterally - Abdomen Abdomen: Normal bowel sounds, Non tender - Back Back: No CVA TTP - Derm Derm: Normal color, Warm and dry, No rash Results - Vitals Vitals: Vital Signs - 24 hr 02/11/23 20:21 Temperature 37.0 C Heart Rate 94 Respiratory 18 Rate Blood Pressure 97/73 O2 Saturation 95 Oxygen O2 Source [] Room air O2 Source Room air - Labs Labs: Laboratory Tests 02/11/23 02/11/23 02/11/23 20:28 20:40 20:50 WBC 8.2 RBC 4.57 L Hgb 13.7 L Hct 39.6 L MCV 86.7 MCH 30.0 MCHC 34.6 RDW 12.2 Plt Count 256 MPV 11.8 H Neut # (Auto) 6.3 Lymph # (Auto) 1.1 L N[place]olls # (Auto) 0.6 Eos # (Auto) 0.0 Baso # (Auto) 0.1 Absolute Nucleated RBC 0.00 Nucleated RBC % 0.0 Sodium Potassium Chloride Carbon Dioxide Anion Gap BUN Creatinine Estimated GFR (MDRD) Glucose POC Whole Bld Glucose 323 H Lactic Acid Calcium Total Bilirubin AST ALT Alkaline Phosphatase Total Protein Albumin Globulin Albumin/Globulin Ratio Lipase Urine Color YELLOW Urine Clarity CLEAR Urine pH 6.0 Ur Specific Dell 1.020 Urine Protein NEGATIVE Urine Glucose (UA) >=1000 H Urine Ketones >=80 H Urine Occult Blood NEGATIVE Urine Nitrite NEGATIVE Urine Bilirubin NEGATIVE Urine Urobilinogen 0.2 (NORMAL) Ur Leukocyte Esterase NEGATIVE Ur Microscopic Review NOT INDICATED Urine Culture Comments NOT INDICATED Serum Ketones 02/11/23 02/11/23 20:50 20:50 WBC RBC Hgb Hct MCV MCH MCHC RDW Plt Count MPV Neut # (Auto) Lymph # (Auto) Nuckolls # (Auto) Eos # (Auto) Baso # (Auto) Absolute Nucleated RBC Nucleated RBC % Sodium 132 L Potassium 4.0 Chloride 102 Carbon Dioxide 22 Anion Gap 8.0 BUN 31 H Creatinine 1.2 Estimated GFR (MDRD) 62 L Glucose 328 H POC Whole Bld Glucose Lactic Acid 1.0 Calcium 9.4 Total Bilirubin 1.1 H AST 14 ALT 15 Alkaline Phosphatase 62 Total Protein 6.3 L Albumin 4.2 Globulin 2.1 Albumin/Globulin Ratio 2.0 Lipase 24 Urine Color Urine Clarity Urine pH Ur Specific Dell Urine Protein Urine Glucose (UA) Urine Ketones Urine Occult Blood Urine Nitrite Urine Bilirubin Urine Urobilinogen Ur Leukocyte Esterase Ur Microscopic Review Urine Culture Comments Serum Ketones SMALL H - Rads (name of study) cxr Relevant Findings:: Final report received (no acute cardiopulmonary process) PD Medical Decision Making - ED course Complexity details: reviewed results, re-evaluated patient, d/w patient ED course: Type I diabetic here for evaluation of poor glycemic control. He has a Humalog insulin pump in place with a basal rate that he is increased to 8 units an hour but despite this he has had blood sugars higher than 400. Denies fevers, cough, abdominal pain, nausea, vomiting or urinary symptoms. He is followed by Dr. Dean. Here in the emergency department chest x-ray was without acute focal opacity per my interpretation. Urine showed no signs of infection. CBC and electrolytes revealed a normal hemoglobin at 13.7. No leukocytosis. He has a mild hyponatremia 132. Blood glucose was 328. He has no anion gap his CO2 is 22. He has a small amount of ketones in his blood but clinically I do not feel that he is in DKA. Patient was administered a liter of fluid here in the emergency department and his CGM indicates that his blood sugar is now down to 290. Patient declined the insulin. I discussed with him that there were no clinical indication to admit him to the hospital at this time. He seems to have good control and understanding of his sugars at home and has appropriate use and monitoring with the CGM and insulin pump. He is advised close follow-up with Dr. Dean. Usual emergent return precautions for worsening symptoms were discussed. Departure - Departure Clinical Impression: Hyperglycemia Type 1 diabetes Qualifiers: Diabetes mellitus complication status: with hyperglycemia Qualified Code(s): E10.65 - Type 1 diabetes mellitus with hyperglycemia Condition: Stable Comments: Ed you are seen today in the emergency department for elevated blood sugars at home. Here in the emergency department you were given some IV fluids. Your labs did not indicate that you are in DKA. Your urine showed no signs of infection. Your chest x-ray was normal. You can continue to use your insulin pump at home as well as bolus doses of insulin as needed for elevated blood sugars. Important that you follow very closely with Dr. Dean for longer-term evaluation and management. Return immediately to the ER for fevers, chest pain, uncontrolled nausea vomiting or any concerns that you are developing high blood sugars that do not resolve with the insulin at home. Forms: PCP List
[2023-02-11 20:57] LABS: BASOPHILS # (AUTO) 0.1 10^3/uL (0.0-0.1); BASOPHILS % (AUTO) 0.9 %; EOSINOPHILS % (AUTO) 0.4 %; HCT - HEMATOCRIT 39.6 % (42.0-52.0); HGB - HEMOGLOBIN 13.7 g/dL (14.0-18.0); LYMPHOCYTES # (AUTO) 1.1 10^3/uL (1.5-3.5); LYMPHOCYTES % (AUTO) 13.4 %; MEAN CORPUSCULAR HGB CONC 34.6 g/dL (32.0-36.0); MEAN CORPUSCULAR VOLUME 86.7 fL (80.0-94.0); MEAN PLATELET VOLUME 11.8 fL (7.4-11.4); MONOCYTES # (AUTO) 0.6 10^3/uL (0.0-1.0); MONOCYTES % (AUTO) 7.5 %; NEUTROPHILS # (AUTO) 6.3 10^3/uL (1.5-6.6); NEUTROPHILS % (AUTO) 77.4 %; PLT - PLATELET COUNT 256 10^3/uL (130-450); RED BLOOD COUNT 4.57 10^6/uL (4.70-6.10); RED CELL DISTRIBUTION WIDTH 12.2 % (12.0-15.0); WHITE BLOOD COUNT 8.2 x10^3/uL (4.8-10.8)
[2023-02-11 21:00] LABS: KETONES, SERUM (ACETEST) SMALL (NEGATIVE)
[2023-02-11 21:15] LABS: ALBUMIN 4.2 g/dL (3.2-5.5); ALKALINE PHOSPHATASE 62 IU/L (42-121); ALT ALANINE AMINOTRANSFERASE 15 IU/L (10-60); AST ASPARTATE AMINOTRANSFERASE 14 IU/L (10-42); BILIRUBIN,TOTAL 1.1 mg/dL (0.2-1.0); BUN - BLOOD UREA NITROGEN 31 mg/dL (6-20); CALCIUM 9.4 mg/dL (8.5-10.3); CARBON DIOXIDE - CO2 22 mmol/L (21-32); CHLORIDE 102 mmol/L (101-111); CREATININE 1.2 mg/dL (0.6-1.3); GFR - MDRD 62 (>89); GLUCOSE 328 mg/dL (74-104); LIPASE 24 U/L (11-82); SODIUM 132 mmol/L (135-145); TOTAL PROTEIN 6.3 g/dL (6.4-8.9)
[2023-02-11] MEDS ORDERED: INSULIN REGULAR HUMAN 300 UNIT/3 ML VIAL IVP STA (21:25)
[2023-02-11 21:30] LABS: GLUCOSE, URINE (UA) >=1000 mg/dL (NEGATIVE); KETONES,URINE (UA) >=80 mg/dL (NEGATIVE); LEUKOCYTE ESTERASE, URINE NEGATIVE (NEGATIVE); NITRITE,URINE NEGATIVE (NEGATIVE); OCCULT BLOOD,URINE NEGATIVE (NEGATIVE); PROTEIN,URINE NEGATIVE (NEGATIVE); UROBILINOGEN,URINE 0.2 (NORMAL) E.U./dL (NORMAL)
[2023-02-11 21:33] LABS: BILIRUBIN,URINE NEGATIVE (NEGATIVE); CLARITY,URINE CLEAR (CLEAR); ICTOTEST,URINE NEGATIVE
--- NOTE | 2023-02-11 21:39 | XRAY Report ---
PROCEDURE: Chest 1 View X-Ray INDICATIONS: chest pain TECHNIQUE: One view of the chest was acquired. COMPARISON: CXR 10/12/2022. FINDINGS: Surgical changes and devices: None. Lungs and pleura: No pleural effusions or pneumothorax. Lungs are clear. Mediastinum: Mediastinal contours appear normal. Heart size is normal. Bones and chest wall: No suspicious bony lesions. Overlying soft tissues appear unremarkable. IMPRESSION: No acute cardiopulmonary process. Reviewed by: Kervin Garcia MD on 02/11/2023 9:37 PM PST Approved by: Kervin Garcia MD on 02/11/2023 9:37 PM PST Station ID: [id number]
[2023-02-11 23:10] VITALS: BP 134/75; O2SAT 100
== END 2023-02-11 23:01 | disposition home or self-care (01) ==
LOC: ED 19:53
DX: E10.65 Type 1 diabetes mellitus with hyperglycemia (principal); Z79.4 Long term (current) use of insulin; I10 Essential (primary) hypertension
CPT/HCPCS: 36415; 80053; 81001; 81003; 82009; 83605; 83690; 85025; 87086; 96360; 99283

== ENCOUNTER 2023-03-31 17:29 | Emergency (ER) | payer MEDICARE ==
--- NOTE | 2023-03-31 18:18 | XRAY Report ---
PROCEDURE: Forearm LT INDICATIONS: Trauma TECHNIQUE: 2 views of the forearm were acquired. COMPARISON: X-ray left forearm, 11/03/2017.. FINDINGS: Bones: No fractures or dislocations. Old healed radial head fracture is noted. Mild degenerative ekta nt disease in elbow and wrist. No suspicious bony lesions. Soft tissues: No suspicious soft tissue calcifications or masses. IMPRESSION: No acute bony abnormality. Reviewed by: Eris Beck MD on 03/31/2023 6:17 PM [facility] Approved by: Eris Beck MD on 03/31/2023 6:17 PM [facility] Station ID: [id number]
--- NOTE | 2023-03-31 18:20 | XRAY Report ---
PROCEDURE: Hand 3+V LT INDICATIONS: Trauma TECHNIQUE: 3 views of the hand(s) acquired. COMPARISON: X-ray hand, bilateral, 03/14/2020. FINDINGS: Bones: No fractures or dislocations. No suspicious bony lesions. Soft tissues: No suspicious soft tissue calcifications or masses. IMPRESSION: No acute bony abnormality. If clinical symptoms persist, consider a follow-up exam in 7-10 days or ad vanced imaging such as CT or MRI. Reviewed by: Eris Beck MD on 03/31/2023 6:19 PM PST Approved by: Eris Beck MD on 03/31/2023 6:19 PM PST Station ID: [id number]
--- NOTE | 2023-03-31 18:40 | ED Physician Documentation ---
History of Present Illness - Stated complaint Stated Complaint: L HAND INJ - Chief complaint Chief Complaint: Trauma Ext - History obtained from History obtained from: Patient - History of Present Illness Pain level max: 4 Pain level now: 4 - Additonal information Additional information: 57-year-old male presents to the emergency department stating that several weeks ago he tried to get in his car but his breathalyzer would not work so he removed the breathalyzer and started punching it with his hand. He states that the hand that he had the breathalyzer and that he was punching is still hurting so he wants to ensure that there is not a fracture. Worse with movement, better with rest. No deformity. No swelling. Patient is right-handed. Review of Systems Constitutional: denies: Fever, Chills PD PAST MEDICAL HISTORY - Past Medical History Past Medical History: Yes Cardiovascular: Hypertension, High cholesterol, Arrhythmia, Other Respiratory: Pneumonia Neuro: Dementia, CVA, Fainting, Other Endocrine/Autoimmune: Type 1 diabetes, HyPOthyroidism GI: GERD, Ulcers, Colon polyps : Other HEENT: Other Psych: Depression, Anxiety, ADD/ADHD Musculoskeletal: Chronic back pain, Other Derm: None - Past Surgical History Past Surgical History: Yes General: Colonoscopy Ortho: Carpal Tunnel surgery, Other Cardiovascular: Other HEENT: Other - Present Medications Home Medications: Ambulatory Orders Medication Instructions Recorded Confirmed Atorvastatin Calcium [Lipitor] 80 mg PO QPM 05/30/21 10/13/22 Donepezil HCl [Aricept] 10 mg PO DAILY 05/30/21 10/13/22 Mirtazapine 45 mg PO QPM 05/30/21 10/13/22 DULoxetine [Cymbalta] 30 mg PO DAILY 01/26/22 10/13/22 Tamsulosin [Flomax] 0.4 mg PO DAILY 01/26/22 10/13/22 Lisdexamfetamine Dimesylate 20 mg PO DAILY 07/03/22 10/13/22 [Vyvanse] Insulin Lispro 83 unit SUBQ .INSULIN PUMP 07/04/22 10/13/22 Losartan Potassium 25 mg PO DAILY 07/04/22 10/13/22 - Allergies Allergies/Adverse Reactions: Allergies Allergy/AdvReac Type Severity Reaction Status Date / Time omeprazole Allergy Intermediate Nausea Verified 03/31/23 17:33 insulin aspart Allergy Unknown Verified 03/31/23 17:33 [From Novolog U-100 Insulin aspart] insulin aspart protamine Allergy Unknown Verified 03/31/23 17:33 human [From Novolog Mix 70-30 U-100 Insuln] codeine AdvReac Severe Dizziness Verified 03/31/23 17:33 doxycycline AdvReac Intermediate Dizziness Verified 03/31/23 17:33 - Social History Does the pt smoke?: No Smoking Status: Never smoker Does the pt drink ETOH?: No Does the pt have substance abuse?: No - Immunizations Immunizations are current?: Yes - POLST Patient has POLST: No POLST Status: Full Code PD ED PE NORMAL - Vitals Vital signs reviewed: Yes - General General: Alert and oriented X 3, No acute distress - HEENT HEENT: PERRL, Moist mucous membranes - Neck Neck: Supple, no meningeal sign - Derm Derm: Warm and dry - Extremities Extremities: Other (No bony tenderness over the left wrist or left hand. No snuffbox tenderness. No tenderness over the forearm. No deformity. Brisk cap refill. Neurovascular intact. Full range of motion of the hand and wrist.) - Neuro Neuro: Alert and oriented X 3 - Psych Psych: Normal mood, Normal affect Results - Vitals Vitals: Vital Signs - 24 hr 03/31/23 03/31/23 17:33 19:19 Temperature 36.8 C Heart Rate 70 78 Respiratory 16 16 Rate Blood Pressure 110/77 141/82 H O2 Saturation 99 100 Oxygen O2 Source [Without Activity] Room air O2 Source Room air - Rads (name of study) L forearm xray Relevant Findings:: Final report received, See rad report L hand xray Relevant Findings:: Final report received, See rad report PD Medical Decision Making - ED course Complexity details: reviewed results, re-evaluated patient, considered differential, d/w patient ED course: No acute findings on x-ray of the left forearm or left hand. Placed in a Velcro splint for comfort. Will treat as sprain. Neurovascular intact. No snuffbox tenderness. No evidence of healing fracture on x-rays. Injury several weeks ago. Will have him follow-up with his doctor for further care. Can use Motrin or Tylenol as needed for pain. Patient counseled regarding signs and symptoms for which I believe and urgent re-evaluation would be necessary. Patient with good understanding of and agreement to plan and is comfortable going home at this time This document was made in part using voice recognition software. While efforts are made to proofread this document, sound alike and grammatical errors may occur. Departure - Departure Disposition: 01 Home, Self Care Clinical Impression: Sprain of hand, left Qualifiers: Encounter type: initial encounter Qualified Code(s): S63.92XA - Sprain of unspecified part of left wrist and hand, initial encounter Condition: Good Instructions: ED Sprain Hand Follow-Up: your,doctor in 1 week [Other] Comments: The x-rays of your hand, wrist and forearm did not show any evidence of fractures or healing fractures. This appears to be a wrist sprain. We have placed in a Velcro wrist splint for comfort. He can use Motrin or Tylenol as needed for pain. Follow-up with your doctor as needed for further care. Forms: PCP List Discharge Date/Time: 03/31/23 19:21
[2023-03-31] MEDS ORDERED: TETANUS/DIPHTHERIA/PERTUSSIS 0.5 ML SYRINGE IM ONE (18:53)
[2023-03-31 19:25] VITALS: BP 141/82; O2SAT 100
== END 2023-03-31 19:21 | disposition home or self-care (01) ==
LOC: ED 17:29
DX: S63.92XA Sprain of unspecified part of left wrist and hand, initial encounter (principal); W22.8XXA Striking against or struck by other objects, initial encounter; I10 Essential (primary) hypertension; E10.9 Type 1 diabetes mellitus without complications; Z79.4 Long term (current) use of insulin; Z23 Encounter for immunization
CPT/HCPCS: 90471; 99283

== ENCOUNTER 2023-05-09 09:26 | Emergency (ER) | payer MEDICARE ==
--- NOTE | 2023-05-09 09:45 | ED Physician Documentation ---
PD HPI URI - Stated complaint Stated Complaint: SOA,SIMONS - Chief complaint Chief Complaint: Resp - History obtained from History obtained from: Patient - History of Present Illness Timing - onset: How many days ago (has increased cough, fevers, fatigue and dyspnea the past 2-3 days. was having cough after URI type symptoms for past 2 weeks, worsening. History of RAD and has nebulizer and MDI at home. Using MDI with minimal improvement the past 2 days.) Timing duration: Weeks (has been ill with some cough for couple of weeks, with wheezing and worse cough the past 2-3 days. Aching and chills.) Timing details: Gradual onset, Still present Associated symptoms: Chills, Productive cough (the past several days.), Dyspnea. No: NVD Contributing factors: COPD / asthma. No: Sick contact, Immunocompromised Improves by: MDI/nebulizer Worsened by: Activity Recently seen: Not recently seen Review of Systems Constitutional: reports: Chills, Myalgias. denies: Fever Nose: reports: Congestion Throat: denies: Sore throat Cardiac: denies: Chest pain / pressure, Palpitations, Pedal edema Respiratory: reports: Dyspnea, Cough, Wheezing PD PAST MEDICAL HISTORY - Past Medical History Cardiovascular: Hypertension, High cholesterol, Arrhythmia, Other Respiratory: Asthma, Pneumonia Neuro: Dementia, CVA, Fainting, Other Endocrine/Autoimmune: Type 1 diabetes, HyPOthyroidism GI: GERD, Ulcers, Colon polyps : Other HEENT: Other Psych: Depression, Anxiety, ADD/ADHD Musculoskeletal: Chronic back pain, Other Derm: None - Past Surgical History Past Surgical History: Yes General: Colonoscopy Ortho: Carpal Tunnel surgery, Other Cardiovascular: Other HEENT: Other - Present Medications Home Medications: Ambulatory Orders Medication Instructions Recorded Confirmed Atorvastatin Calcium [Lipitor] 80 mg PO QPM 05/30/21 05/09/23 Donepezil HCl [Aricept] 10 mg PO DAILY 05/30/21 05/09/23 Mirtazapine 45 mg PO QPM 05/30/21 05/09/23 DULoxetine [Cymbalta] 30 mg PO DAILY 01/26/22 05/09/23 Tamsulosin [Flomax] 0.4 mg PO DAILY 01/26/22 05/09/23 Lisdexamfetamine Dimesylate 20 mg PO DAILY 07/03/22 05/09/23 [Vyvanse] Insulin Lispro 83 unit SUBQ .INSULIN PUMP 07/04/22 05/09/23 Losartan Potassium 25 mg PO DAILY 07/04/22 05/09/23 Amox/Clav 875/125 [Augmentin] 1 each PO Q12H #14 tablet 05/09/23 Insulin Glargine [Lantus Solostar] 40 unit SUBQ DAILY #1 each 05/09/23 Insulin Lispro [Humalog Kwikpen 20 unit SUBQ AC #1 each 05/09/23 U-100] dexAMETHasone [Decadron] 4 mg PO DAILY #5 tablet 05/09/23 - Allergies Allergies/Adverse Reactions: Allergies Allergy/AdvReac Type Severity Reaction Status Date / Time omeprazole Allergy Intermediate Nausea Verified 05/09/23 10:23 insulin aspart Allergy Unknown Verified 05/09/23 10:23 [From Novolog U-100 Insulin aspart] insulin aspart protamine Allergy Unknown Verified 05/09/23 10:23 human [From Novolog Mix 70-30 U-100 Insuln] codeine AdvReac Severe Dizziness Verified 05/09/23 10:23 doxycycline AdvReac Intermediate Dizziness Verified 05/09/23 10:23 - Social History Does the pt smoke?: No Smoking Status: Never smoker Does the pt drink ETOH?: No Does the pt have substance abuse?: No - Immunizations Immunizations are current?: Yes - POLST Patient has POLST: No POLST Status: Full Code PD ED PE NORMAL - Vitals Vital signs reviewed: Yes - General General: Alert and oriented X 3, Well developed/nourished, Other (appears uncomfortable and somewhat labored with breathing, with shweezing and prolonged exp phase. Sats good at 100%. ) - HEENT HEENT: Pharynx benign - Neck Neck: Supple, no meningeal sign, No adenopathy - Cardiac Cardiac: RRR, No murmur - Respiratory Respiratory: No respiratory distress, Other (no coarse sounds. Diffuse wheezing noted. Normal voice without hoarseness. Barkish/hoarse cough intermittent.) - Abdomen Abdomen: Soft, Non tender - Derm Derm: Normal color, Warm and dry - Extremities Extremities: No edema, No calf tenderness / cord Results - Vitals Vitals: Vital Signs - 24 hr 05/09/23 05/09/23 05/09/23 09:32 10:15 11:37 Temperature 36.8 C Heart Rate 78 90 94 Respiratory 16 24 22 Rate Blood Pressure 122/84 H O2 Saturation 100 05/09/23 11:51 Temperature 36.7 C Heart Rate 75 Respiratory 22 Rate Blood Pressure 129/73 O2 Saturation 99 Oxygen O2 Source [Without Activity] Room air O2 Source Room air - Labs Labs: Laboratory Tests 05/09/23 05/09/23 09:35 11:08 POC Whole Bld Glucose 91 Nasal Adenovirus (PCR) NOT DETECTED Nasal B. parapertussis DNA (PCR) NOT DETECTED Nasal Coronavir 229E PCR NOT DETECTED Nasal Coronavir HKU1 PCR NOT DETECTED Nasal Coronavir NL63 PCR NOT DETECTED Nasal Coronavir OC43 PCR NOT DETECTED Nasal Enterovir/Rhinovir PCR NOT DETECTED Nasal Influenza B PCR NOT DETECTED Nasal Influenza A PCR NOT DETECTED Nasal Parainfluen 1 PCR NOT DETECTED Nasal Parainfluen 2 PCR NOT DETECTED Nasal Parainfluen 3 PCR NOT DETECTED Nasal Parainfluen 4 PCR NOT DETECTED Nasal RSV (PCR) NOT DETECTED Nasal B.pertussis DNA PCR NOT DETECTED Nasal C.pneumoniae (PCR) NOT DETECTED Severo Human Metapneumo PCR NOT DETECTED Nasal M.pneumoniae (PCR) NOT DETECTED Nasal SARS-CoV-2 (PCR) DETECTED A - Rads (name of study) chest xray Relevant Findings:: Prelim report reviewed, EMP independent interpretation of test (no infiltrates) PD Medical Decision Making - ED course Complexity details: reviewed results (chest xray without infiltrates/acute process. viral PCR positive COVID currently. ), considered differential (viral PCR testing positive for COVID, but I presume that is most recent illness. He had URI/cough/dyspnea for couple of weeks prior and then was getting prulent sputum and aches. He sounds likely to have acute secondary bronchitis with the symptoms worsening now, and also presume new illness COVId.), d/w patient Departure - Departure Disposition: 01 Home, Self Care Clinical Impression: Exacerbation of reactive airway disease, Acute bronchitis, COVID-19, Diabetes Condition: Stable Record reviewed to determine appropriate education?: Yes Prescriptions: Amox/Clav 875/125 [Augmentin] 1 each PO Q12H #14 tablet dexAMETHasone [Decadron] 4 mg PO DAILY #5 tablet Insulin Lispro [Humalog Kwikpen U-100] 20 unit SUBQ AC #1 each Insulin Glargine [Lantus Solostar] 40 unit SUBQ DAILY #1 each Comments: You did test positive for COVID. However given the duration of your symptoms and the character of your cough and sputum, it is possible you have a secondary back Chavez bronchitis as well. I prescribed Augmentin twice daily for 5 days and Decadron steroid anti- inflammatory for the bronchioles also for 5 days. I wrote prescriptions for your Lantus and Humalog for your diabetes. Use your nebulizer at home 4 times daily for the next several days to week. The current variants of COVID are less impacted by the antiviral medicine such as Paxlovid. At this point I would probably defer prescription for that and wo rk on the other aspects. Right now your oxygen level is good. If you do have worsening of your breathing from COVID and a flareup of your reactive airway disease, then return to the ER for reassessment. I sent your prescriptions to [facility] in [place]. Forms: PCP List Discharge Date/Time: 05/09/23 11:56
[2023-05-09] MEDS: dexAMETHasone 4 MG TABLET PO STA (10:07)
[2023-05-09] MEDS: ALBUTEROL NEB 2.5 MG/3 ML INH STA ×2 (10:15→11:37)
--- NOTE | 2023-05-09 10:39 | XRAY Report ---
PROCEDURE: Chest 1V INDICATIONS: DYSPNEA, COUGH TECHNIQUE: One view of the chest was acquired. COMPARISON: None. FINDINGS: Surgical changes and devices: Generator projects over the stomach. Lungs and pleura: No pleural effusions or pneumothorax. Lungs are clear. Mediastinum: Mediastinal contours appear normal. Heart size is normal. Bones and chest wall: No suspicious bony lesions. Overlying soft tissues appear unremarkable. IMPRESSION: No acute cardiopulmonary process. Reviewed by: Lawson Gallagher MD on 05/09/2023 10:37 AM [facility] Approved by: Lawson Gallagher MD on 05/09/2023 10:37 AM [facility] Station ID: [id number]
[2023-05-09 10:40] LABS: B. PARAPERTUSSIS- RESP PCR PAN NOT DETECTED; B. PERTUSSIS- RESP PCR PANEL NOT DETECTED; C. PNEUMONIAE- RESP PCR PANEL NOT DETECTED; CORONAVIRUS 229E-RESP PCR NOT DETECTED; CORONAVIRUS HKU1-RESP PCR NOT DETECTED; CORONAVIRUS NL63-RESP PCR NOT DETECTED; CORONAVIRUS OC43-RESP PCR NOT DETECTED; HUMAN METAPNEUMOVIRUS NOT DETECTED; INFLUENZA A- RESP PCR PANEL NOT DETECTED; INFLUENZA B - RESP PCR PANEL NOT DETECTED; M. PNEUMONIAE- RESP PCR PANEL NOT DETECTED; PARAINFLUENZA VIRUS 1 NOT DETECTED; PARAINFLUENZA VIRUS 2 NOT DETECTED; PARAINFLUENZA VIRUS 3 NOT DETECTED; PARAINFLUENZA VIRUS 4 NOT DETECTED; RHINOVIRUS/ENTEROVIRUS NOT DETECTED; RSV- RESP PCR PANEL NOT DETECTED
[2023-05-09 10:44] LABS: SARS-CoV-2 -RESP PCR PANEL DETECTED
[2023-05-09] MEDS: AMOX/CLAV 875 MG/125 MG TABLET PO STA (11:12)
[2023-05-09 11:54] VITALS: BP 129/73; O2SAT 99
== END 2023-05-09 11:56 | disposition home or self-care (01) ==
LOC: ED 09:26
DX: J20.9 Acute bronchitis, unspecified (principal); J45.901 Unspecified asthma with (acute) exacerbation; U07.1 COVID-19; E10.9 Type 1 diabetes mellitus without complications; Z79.4 Long term (current) use of insulin
CPT/HCPCS: 71045; 87633; 94640; 99284; A9270; J8540

== ENCOUNTER 2023-05-20 11:18 | Emergency (ER) | payer MEDICARE ==
[2023-05-20 11:36] VITALS: O2SAT 100
--- NOTE | 2023-05-20 11:36 | ED Physician Documentation ---
PD HPI NVD - Stated complaint Stated Complaint: HIGH BP,N/V - Chief complaint Chief Complaint: Abd Pain - History obtained from History obtained from: Patient - History of Present Illness Timing - onset: How many days ago (few) Timing - duration: Days (few) Timing - details: Abrupt onset (had problems with his insulin pump. Got new sensor but the software on his pump needs updating in order to communicate with it, so pump not working. He has not been able to download the update and the company had not called back. Has elevated blood sugar and feeling nauseated, weak, lightheaded.), Still present Associated symptoms: Loss of appetite. No: Fever, Chest pain Contributing factors: Diabetes (with elevated blood sugar). No: Sick contact, Bad food Review of Systems Constitutional: denies: Fever, Chills Nose: denies: Rhinorrhea / runny nose, Congestion Throat: denies: Sore throat Respiratory: denies: Cough GI: reports: Nausea, Vomiting. denies: Diarrhea Neurologic: reports: Generalized weakness PD PAST MEDICAL HISTORY - Past Medical History Past Medical History: Yes Cardiovascular: Hypertension, High cholesterol, Arrhythmia, Other Respiratory: Asthma, Pneumonia Neuro: Dementia, CVA, Fainting, Other Endocrine/Autoimmune: Type 1 diabetes, HyPOthyroidism GI: GERD, Ulcers, Colon polyps : Other HEENT: Other Psych: Depression, Anxiety, ADD/ADHD Musculoskeletal: Chronic back pain, Other Derm: None - Past Surgical History Past Surgical History: Yes General: Colonoscopy Ortho: Carpal Tunnel surgery, Other Cardiovascular: Other HEENT: Other - Present Medications Home Medications: Ambulatory Orders Medication Instructions Recorded Confirmed Atorvastatin Calcium [Lipitor] 80 mg PO QPM 05/30/21 05/20/23 Donepezil HCl [Aricept] 10 mg PO DAILY 05/30/21 05/20/23 Mirtazapine 45 mg PO QPM 05/30/21 05/20/23 DULoxetine [Cymbalta] 30 mg PO DAILY 01/26/22 05/20/23 Tamsulosin [Flomax] 0.4 mg PO DAILY 01/26/22 05/20/23 Lisdexamfetamine Dimesylate 20 mg PO DAILY 07/03/22 05/20/23 [Vyvanse] Insulin Lispro 83 unit SUBQ .INSULIN PUMP 07/04/22 05/20/23 Losartan Potassium 25 mg PO DAILY 07/04/22 05/20/23 Amox/Clav 875/125 [Augmentin] 1 each PO Q12H #14 tablet 05/09/23 05/20/23 Insulin Glargine [Lantus Solostar] 40 unit SUBQ DAILY #1 each 05/09/23 05/20/23 Insulin Lispro [Humalog Kwikpen 20 unit SUBQ AC #1 each 05/09/23 05/20/23 U-100] dexAMETHasone [Decadron] 4 mg PO DAILY #5 tablet 05/09/23 05/20/23 - Allergies Allergies/Adverse Reactions: Allergies Allergy/AdvReac Type Severity Reaction Status Date / Time omeprazole Allergy Intermediate Nausea Verified 05/20/23 12:10 insulin aspart Allergy Unknown Verified 05/20/23 12:10 [From Novolog U-100 Insulin aspart] insulin aspart protamine Allergy Unknown Verified 05/20/23 12:10 human [From Novolog Mix 70-30 U-100 Insuln] codeine AdvReac Severe Dizziness Verified 05/20/23 12:10 doxycycline AdvReac Intermediate Dizziness Verified 05/20/23 12:10 - Social History Does the pt smoke?: No Smoking Status: Never smoker Does the pt drink ETOH?: No Does the pt have substance abuse?: Yes Substance Use and Type: Marijuana - Immunizations Immunizations are current?: No Immunizations: Other immun not current - POLST Patient has POLST: No POLST Status: Full Code PD ED PE NORMAL - Vitals Vital signs reviewed: Yes - General General: Alert and oriented X 3, No acute distress (but looks that he feels ill), Well developed/nourished - Neck Neck: Supple, no meningeal sign, No adenopathy - Cardiac Cardiac: RRR, No murmur - Respiratory Respiratory: No respiratory distress, Clear bilaterally - Abdomen Abdomen: Soft, Non tender - Derm Derm: Normal color, Warm and dry - Neuro Neuro: Alert and oriented X 3, No motor deficit, Normal speech Results - Vitals Vitals: Oxygen O2 Source [Without Activity] Room air O2 Source Room air - Labs Labs: Laboratory Tests 05/20/23 05/20/23 05/20/23 11:58 11:58 11:58 WBC 7.8 RBC 5.13 Hgb 15.1 Hct 44.2 MCV 86.2 MCH 29.4 MCHC 34.2 RDW 12.2 Plt Count 217 MPV 12.3 H Neut # (Auto) 5.9 Lymph # (Auto) 1.1 L [place] # (Auto) 0.7 Eos # (Auto) 0.0 Baso # (Auto) 0.1 Absolute Nucleated RBC 0.00 Nucleated RBC % 0.0 VBG pH 7.531 H VBG pCO2 30.3 L VBG pO2 27.3 VBG HCO3 24.8 VBG Total CO2 25.7 VBG O2 Saturation 61.3 VBG Base Excess 3.1 H Sodium 130 L Potassium 4.8 H Chloride 98 L Carbon Dioxide 25 Anion Gap 7.0 BUN 21 H Creatinine 1.0 Estimated GFR (MDRD) 76 L Glucose 559 H* POC Whole Bld Glucose Calcium 9.2 Magnesium 1.5 L Total Bilirubin 1.3 H AST 9 L ALT 11 Alkaline Phosphatase 57 Total Protein 6.0 L Albumin 3.7 Globulin 2.3 Albumin/Globulin Ratio 1.6 Lipase 13 Serum Ketones NEGATIVE 05/20/23 05/20/23 13:06 14:33 WBC RBC Hgb Hct MCV MCH MCHC RDW Plt Count MPV Neut # (Auto) Lymph # (Auto) [place] # (Auto) Eos # (Auto) Baso # (Auto) Absolute Nucleated RBC Nucleated RBC % VBG pH VBG pCO2 VBG pO2 VBG HCO3 VBG Total CO2 VBG O2 Saturation VBG Base Excess Sodium Potassium Chloride Carbon Dioxide Anion Gap BUN Creatinine Estimated GFR (MDRD) Glucose POC Whole Bld Glucose 330 H 223 H Calcium Magnesium Total Bilirubin AST ALT Alkaline Phosphatase Total Protein Albumin Globulin Albumin/Globulin Ratio Lipase Serum Ketones PD Medical Decision Making - ED course Complexity details: reviewed results (not in DKA. given IV fluids and insulin. He is able to cover with subQ insulin until getting pump and sensor comminicating. ), re-evaluated patient (blood sugar improved with IV fluids and insulin. ), considered differential (pt concerned about DKA with symptoms and elevated blood sugar. Consider viral illness too and can check VBG and ketones, lytes. ), d/w patient Reviewed Lab Results: 7.52. Bllod sugar elevateed but no ketones. Lytes okay. Departure - Departure Disposition: 01 Home, Self Care Clinical Impression: Hyperglycemia, Nausea Condition: Stable Record reviewed to determine appropriate education?: Yes Comments: Continue with your usual insulins. I hope you get your pump software updated so it communicates better with your sensor. Meanwhile program the pump but manually. Small frequent fluids. Forms: PCP List Discharge Date/Time: 05/20/23 14:50
[2023-05-20 12:00] LABS: BASOPHILS # (AUTO) 0.1 10^3/uL (0.0-0.1); BASOPHILS % (AUTO) 0.6 %; EOSINOPHILS % (AUTO) 0.5 %; HCT - HEMATOCRIT 44.2 % (42.0-52.0); HGB - HEMOGLOBIN 15.1 g/dL (14.0-18.0); LYMPHOCYTES # (AUTO) 1.1 10^3/uL (1.5-3.5); LYMPHOCYTES % (AUTO) 14.2 %; MEAN CORPUSCULAR HEMOGLOBIN 29.4 pg (27.0-31.0); MEAN CORPUSCULAR HGB CONC 34.2 g/dL (32.0-36.0); MEAN CORPUSCULAR VOLUME 86.2 fL (80.0-94.0); MEAN PLATELET VOLUME 12.3 fL (7.4-11.4); MONOCYTES # (AUTO) 0.7 10^3/uL (0.0-1.0); MONOCYTES % (AUTO) 8.6 %; NEUTROPHILS # (AUTO) 5.9 10^3/uL (1.5-6.6); NEUTROPHILS % (AUTO) 75.5 %; PLT - PLATELET COUNT 217 10^3/uL (130-450); RED BLOOD COUNT 5.13 10^6/uL (4.70-6.10); RED CELL DISTRIBUTION WIDTH 12.2 % (12.0-15.0); WHITE BLOOD COUNT 7.8 x10^3/uL (4.8-10.8)
[2023-05-20] MEDS: SODIUM CHLORIDE 0.9% 1,000 ML IV STA ×2 (12:00→13:17)
[2023-05-20 12:01] LABS: VBG BASE EXCESS 3.1 mmol/L (-2 - +2); VBG HCO3 24.8 mmol/L (23-28); VBG OXYGEN SATURATION 61.3 % (60-80); VBG PCO2 30.3 mmHg (41-51); VBG PH 7.531 (7.31-7.41); VBG PO2 27.3 mmHg (25-47); VBG TOTAL CO2 25.7 mmol/L (24-29)
[2023-05-20] MEDS: ONDANSETRON 4 MG/2 ML VIAL IVP STA (12:03)
[2023-05-20] MEDS: INSULIN REGULAR HUMAN 300 UNIT/3 ML VIAL IVP STA ×2 (12:05→13:17)
[2023-05-20 12:07] LABS: KETONES, SERUM (ACETEST) NEGATIVE (NEGATIVE)
[2023-05-20 12:16] LABS: MAGNESIUM 1.5 mg/dL (1.7-2.3)
[2023-05-20 12:22] LABS: LIPASE 13 U/L (11-82)
[2023-05-20 12:26] LABS: ALBUMIN 3.7 g/dL (3.2-5.5); ALBUMIN/GLOBULIN RATIO 1.6 (1.0-2.2); ALKALINE PHOSPHATASE 57 IU/L (42-121); ALT ALANINE AMINOTRANSFERASE 11 IU/L (10-60); AST ASPARTATE AMINOTRANSFERASE 9 IU/L (10-42); BILIRUBIN,TOTAL 1.3 mg/dL (0.2-1.0); BUN - BLOOD UREA NITROGEN 21 mg/dL (6-20); CALCIUM 9.2 mg/dL (8.5-10.3); CARBON DIOXIDE - CO2 25 mmol/L (21-32); CHLORIDE 98 mmol/L (101-111); GFR - MDRD 76 (>89); GLUCOSE 559 mg/dL (74-104); POTASSIUM 4.8 mmol/L (3.5-4.5); SODIUM 130 mmol/L (135-145)
[2023-05-20 15:04] VITALS: BP 145/81
== END 2023-05-20 14:50 | disposition home or self-care (01) ==
LOC: ED 11:18
DX: E10.65 Type 1 diabetes mellitus with hyperglycemia (principal); T85.694A Other mechanical complication of insulin pump, initial encounter; I10 Essential (primary) hypertension; E78.00 Pure hypercholesterolemia, unspecified; J45.909 Unspecified asthma, uncomplicated; F03.90 Unspecified dementia, unspecified severity, without behavioral disturbance, psychotic disturbance, mood disturbance, and anxiety; Z96.41 Presence of insulin pump (external) (internal); E03.9 Hypothyroidism, unspecified; Z86.010 Personal history of colon polyps; Z87.11 Personal history of peptic ulcer disease; Z79.4 Long term (current) use of insulin; Z79.899 Other long term (current) drug therapy
CPT/HCPCS: 36415; 80053; 82009; 82803; 83690; 83735; 85025; 96361; 96374; 99283; J1815

== ENCOUNTER 2023-06-13 17:38 | Emergency (ER) | payer MEDICARE ==
[2023-06-13 17:45] VITALS: O2SAT 99
--- NOTE | 2023-06-13 18:02 | ED Physician Documentation ---
PD HPI ABD PAIN - Stated complaint Stated Complaint: SORE THROAT,DIZZY,N/V - Chief complaint Chief Complaint: Abd Pain - History obtained from History obtained from: Patient - Additional information Additional information: 57-year-old gentleman with diabetes, an insulin pump and a G CGM. This morning his pump seem to be not working and then he was vomiting for several hours. He thinks it might be working now, but his blood sugars 385 and over the last couple of hours has developed a sore throat. No fevers. He does have some abdominal pain and nausea. Declines pain medication. PD PAST MEDICAL HISTORY - Past Medical History Past Medical History: Yes Cardiovascular: Hypertension, High cholesterol, Arrhythmia, Other Respiratory: Asthma, Pneumonia Neuro: Dementia, CVA, Fainting, Other Endocrine/Autoimmune: Type 1 diabetes, HyPOthyroidism GI: GERD, Ulcers, Colon polyps : Other HEENT: Other Psych: Depression, Anxiety, ADD/ADHD Musculoskeletal: Chronic back pain, Other Derm: None - Past Surgical History Past Surgical History: Yes General: Colonoscopy Ortho: Carpal Tunnel surgery, Other Cardiovascular: Other HEENT: Other - Present Medications Home Medications: Ambulatory Orders Medication Instructions Recorded Confirmed Atorvastatin Calcium [Lipitor] 80 mg PO QPM 05/30/21 05/20/23 Donepezil HCl [Aricept] 10 mg PO DAILY 05/30/21 05/20/23 Mirtazapine 45 mg PO QPM 05/30/21 05/20/23 DULoxetine [Cymbalta] 30 mg PO DAILY 01/26/22 05/20/23 Tamsulosin [Flomax] 0.4 mg PO DAILY 01/26/22 05/20/23 Lisdexamfetamine Dimesylate 20 mg PO DAILY 07/03/22 05/20/23 [Vyvanse] Insulin Lispro 83 unit SUBQ .INSULIN PUMP 07/04/22 05/20/23 Losartan Potassium 25 mg PO DAILY 07/04/22 05/20/23 Amox/Clav 875/125 [Augmentin] 1 each PO Q12H #14 tablet 05/09/23 05/20/23 Insulin Glargine [Lantus Solostar] 40 unit SUBQ DAILY #1 each 05/09/23 05/20/23 Insulin Lispro [Humalog Kwikpen 20 unit SUBQ AC #1 each 05/09/23 05/20/23 U-100] dexAMETHasone [Decadron] 4 mg PO DAILY #5 tablet 05/09/23 05/20/23 Penicillin V Potassium 500 mg PO Q6HR #40 tablet 06/13/23 - Allergies Allergies/Adverse Reactions: Allergies Allergy/AdvReac Type Severity Reaction Status Date / Time omeprazole Allergy Intermediate Nausea Verified 06/13/23 17:41 insulin aspart Allergy Unknown Verified 06/13/23 17:41 [From Novolog U-100 Insulin aspart] insulin aspart protamine Allergy Unknown Verified 06/13/23 17:41 human [From Novolog Mix 70-30 U-100 Insuln] codeine AdvReac Severe Dizziness Verified 06/13/23 17:41 doxycycline AdvReac Intermediate Dizziness Verified 06/13/23 17:41 - Social History Does the pt smoke?: No Smoking Status: Never smoker Does the pt drink ETOH?: No Does the pt have substance abuse?: Yes - Immunizations Immunizations are current?: No Immunizations: Other immun not current - POLST Patient has POLST: No POLST Status: Full Code PD ED PE NORMAL - Vitals Vital signs reviewed: Yes - General General: Alert and oriented X 3, No acute distress - HEENT HEENT: Pharynx benign - Cardiac Cardiac: RRR, No murmur - Respiratory Respiratory: No respiratory distress, Clear bilaterally - Abdomen Abdomen: Non tender - Derm Derm: No rash - Neuro Neuro: Alert and oriented X 3 Results - Vitals Vitals: Vital Signs - 24 hr 06/13/23 17:41 Temperature 36.8 C Heart Rate 77 Respiratory 16 Rate Blood Pressure 112/66 O2 Saturation 99 Oxygen O2 Source [Without Activity] Room air O2 Source Room air - Labs Labs: Laboratory Tests 06/13/23 06/13/23 17:55 18:03 POC Whole Bld Glucose 283 H Group A Strep Rapid POSITIVE H PD Medical Decision Making - ED course ED course: He presented with uncontrolled diabetes and a sore throat. He was worried that he may have strep throat. He was positive for strep throat. His blood sugar came down while here and there was difficulty obtaining an IV. He does not appear clinically to be in DKA and eventually declined IV fluids and labs. He did receive IM Rocephin. Departure - Departure Disposition: 01 Home, Self Care Clinical Impression: Diabetes, Strep throat Condition: Good Record reviewed to determine appropriate education?: Yes Instructions: ED Strep Pharyngitis Conf Prescriptions: Penicillin V Potassium 500 mg PO Q6HR #40 tablet Comments: You did have strep throat today. You declined labs. You did receive a shot of intramuscular antibiotic for strep throat. Continue to work on your blood sugars. Return for new or worsening symptoms. Follow-up with your doctor next week for recheck. Forms: PCP List, Activity restrictions
[2023-06-13] MEDS: SODIUM CHLORIDE 0.9% 1,000 ML IV STA (18:08)
[2023-06-13] MEDS: ONDANSETRON 4 MG/2 ML VIAL IVP STA (18:09)
[2023-06-13 18:20] LABS: RAPID STREP SCREEN POSITIVE (Negative)
[2023-06-13] MEDS ORDERED: LIDOCAINE 1% 2 ML VIAL MC ONE (18:50)
[2023-06-13] MEDS ORDERED: cefTRIAXone 1 GM VIAL IM STA (18:50)
[2023-06-13 19:07] VITALS: BP 118/72
== END 2023-06-13 19:02 | disposition home or self-care (01) ==
LOC: ED 17:38
DX: E10.65 Type 1 diabetes mellitus with hyperglycemia (principal); J02.0 Streptococcal pharyngitis; I10 Essential (primary) hypertension; E78.00 Pure hypercholesterolemia, unspecified; I49.9 Cardiac arrhythmia, unspecified; Z79.4 Long term (current) use of insulin; Z96.41 Presence of insulin pump (external) (internal); Z86.73 Personal history of transient ischemic attack (TIA), and cerebral infarction without residual deficits; Z86.010 Personal history of colon polyps; E03.9 Hypothyroidism, unspecified; Z79.899 Other long term (current) drug therapy
CPT/HCPCS: 80053; 82009; 82803; 83735; 84100; 85025; 87430; 99283

== ENCOUNTER 2023-07-17 11:45 | Outpatient (CLI) | payer MEDICARE | END 2023-07-17 23:59 | disposition short-term general hospital (02) | LOC: EMS 11:45 | DX: R07.89 Other chest pain (principal); M54.9 Dorsalgia, unspecified; R11.0 Nausea; R09.89 Other specified symptoms and signs involving the circulatory and respiratory systems | CPT/HCPCS: A0425; A0427 ==

== ENCOUNTER 2023-10-18 12:42 | Outpatient (CLI) | payer MEDICARE | END 2023-10-18 23:59 | disposition critical access hospital (66) | LOC: EMS 12:42 | DX: R10.32 Left lower quadrant pain (principal); R10.12 Left upper quadrant pain; R61 Generalized hyperhidrosis; R42 Dizziness and giddiness; R26.81 Unsteadiness on feet; R11.10 Vomiting, unspecified | CPT/HCPCS: A0425; A0427 ==

== ENCOUNTER 2023-10-18 13:03 | Emergency (ER) | payer MEDICARE ==
[2023-10-18 14:15] LABS: BASOPHILS # (AUTO) 0.1 10^3/uL (0.0-0.1); BASOPHILS % (AUTO) 0.8 %; EOSINOPHILS % (AUTO) 0.3 %; HCT - HEMATOCRIT 41.9 % (42.0-52.0); HGB - HEMOGLOBIN 14.3 g/dL (14.0-18.0); LYMPHOCYTES % (AUTO) 15.2 %; MEAN CORPUSCULAR HEMOGLOBIN 29.6 pg (27.0-31.0); MEAN CORPUSCULAR HGB CONC 34.1 g/dL (32.0-36.0); MEAN CORPUSCULAR VOLUME 86.7 fL (80.0-94.0); MEAN PLATELET VOLUME 11.4 fL (7.4-11.4); MONOCYTES # (AUTO) 0.4 10^3/uL (0.0-1.0); MONOCYTES % (AUTO) 6.9 %; NEUTROPHILS # (AUTO) 4.8 10^3/uL (1.5-6.6); NEUTROPHILS % (AUTO) 76.6 %; PLT - PLATELET COUNT 259 10^3/uL (130-450); RED BLOOD COUNT 4.83 10^6/uL (4.70-6.10); RED CELL DISTRIBUTION WIDTH 11.8 % (12.0-15.0); WHITE BLOOD COUNT 6.2 x10^3/uL (4.8-10.8)
[2023-10-18] MEDS: KETOROLAC 30 MG/ML VIAL IVP STA (14:15)
[2023-10-18] MEDS: LORazepam 2 MG/ML VIAL IVP STA ×2 (14:16→18:00)
[2023-10-18] MEDS: SODIUM CHLORIDE 0.9% 1,000 ML IV STA (14:18)
[2023-10-18] MEDS: ONDANSETRON 4 MG/2 ML VIAL IVP STA (14:22)
[2023-10-18 14:34] LABS: ALBUMIN 4.3 g/dL (3.2-5.5); ALBUMIN/GLOBULIN RATIO 1.9 (1.0-2.2); BILIRUBIN,TOTAL 1.2 mg/dL (0.2-1.0); CALCIUM 10.1 mg/dL (8.5-10.3); POTASSIUM 3.9 mmol/L (3.5-4.5); TOTAL PROTEIN 6.6 g/dL (6.4-8.9)
[2023-10-18 15:27] LABS: BILIRUBIN,URINE NEGATIVE (NEGATIVE); GLUCOSE, URINE (UA) 500 mg/dL (NEGATIVE); KETONES,URINE (UA) NEGATIVE (NEGATIVE); LEUKOCYTE ESTERASE, URINE NEGATIVE (NEGATIVE); NITRITE,URINE NEGATIVE (NEGATIVE); OCCULT BLOOD,URINE NEGATIVE (NEGATIVE); PROTEIN,URINE NEGATIVE (NEGATIVE); UROBILINOGEN,URINE 0.2 (NORMAL) E.U./dL (NORMAL)
[2023-10-18 15:29] LABS: CLARITY,URINE CLEAR (CLEAR)
--- NOTE | 2023-10-18 15:48 | ED Physician Documentation ---
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 He has also had a prior back fracture about 7 years ago. He has had pain in his lower back since then. He will periodically have severe pain that leads to nausea. Early this morning he was on the commode and began to feel quite dizzy and lightheaded. He had vomiting associated with this and he had severe lower back pain associated with this. He indicates to me that he periodically has urinary urgency and will be incontinent. He states this has been present for years. He has some difficulty with stool periodically as well. He denies any perineal anesthesia. He does have pain across the lower back. Review of Systems Constitutional: denies: Fever Eyes: denies: Decreased vision Ears: denies: Ear pain Nose: denies: Congestion Throat: denies: Sore throat Cardiac: denies: Chest pain / pressure Respiratory: denies: Cough GI: reports: Nausea, Vomiting. denies: Abdominal Pain : reports: Frequency. denies: Dysuria Musculoskeletal: reports: Back pain. denies: Neck pain, Extremity pain Neurologic: denies: Generalized weakness, Focal weakness, Numbness PD PAST MEDICAL HISTORY - Past Medical History Cardiovascular: Hypertension, High cholesterol, Arrhythmia, Other Respiratory: Asthma, Pneumonia Neuro: Dementia, CVA, Fainting, Other Endocrine/Autoimmune: Type 1 diabetes, HyPOthyroidism GI: GERD, Ulcers, Colon polyps : Other HEENT: Other Psych: Depression, Anxiety, ADD/ADHD Musculoskeletal: Chronic back pain, Other Derm: None - Past Surgical History Past Surgical History: Yes General: Colonoscopy Ortho: Carpal Tunnel surgery, Other Cardiovascular: Other HEENT: Other - Present Medications Home Medications: Ambulatory Orders Medication Instructions Recorded Confirmed Atorvastatin Calcium [Lipitor] 80 mg PO QPM 05/30/21 05/20/23 Donepezil HCl [Aricept] 10 mg PO DAILY 05/30/21 05/20/23 Mirtazapine 45 mg PO QPM 05/30/21 05/20/23 DULoxetine [Cymbalta] 30 mg PO DAILY 01/26/22 05/20/23 Tamsulosin [Flomax] 0.4 mg PO DAILY 01/26/22 05/20/23 Lisdexamfetamine Dimesylate 20 mg PO DAILY 07/03/22 05/20/23 [Vyvanse] Insulin Lispro 83 unit SUBQ .INSULIN PUMP 07/04/22 05/20/23 Losartan Potassium 25 mg PO DAILY 07/04/22 05/20/23 Amox/Clav 875/125 [Augmentin] 1 each PO Q12H #14 tablet 05/09/23 05/20/23 Insulin Glargine [Lantus Solostar] 40 unit SUBQ DAILY #1 each 05/09/23 05/20/23 Insulin Lispro [Humalog Kwikpen 20 unit SUBQ AC #1 each 05/09/23 05/20/23 U-100] dexAMETHasone [Decadron] 4 mg PO DAILY #5 tablet 05/09/23 05/20/23 Penicillin V Potassium 500 mg PO Q6HR #40 tablet 06/13/23 - Allergies Allergies/Adverse Reactions: Allergies Allergy/AdvReac Type Severity Reaction Status Date / Time omeprazole Allergy Intermediate Nausea Verified 10/18/23 13:18 insulin aspart Allergy Unknown Verified 10/18/23 13:18 [From Novolog U-100 Insulin aspart] insulin aspart protamine Allergy Unknown Verified 10/18/23 13:18 human [From Novolog Mix 70-30 U-100 Insuln] codeine AdvReac Severe Dizziness Verified 10/18/23 13:18 doxycycline AdvReac Intermediate Dizziness Verified 10/18/23 13:18 - Social History Does the pt smoke?: No Smoking Status: Never smoker Does the pt drink ETOH?: No Does the pt have substance abuse?: Yes - Immunizations Immunizations are current?: No Immunizations: Other immun not current - POLST Patient has POLST: No POLST Status: Full Code PD ED PE NORMAL - Vitals Vital signs reviewed: Yes (Hypertensive) - General General: Alert and oriented X 3, Well developed/nourished, Other (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 he is frequently interrupted by his with corrections.) - HEENT HEENT: Atraumatic, PERRL, EOMI, Other (Dry mucous membranes no significant nystagmus.) - Neck Neck: Supple, no meningeal sign, No bony TTP - Cardiac Cardiac: RRR, No murmur - Respiratory Respiratory: No respiratory distress, Clear bilaterally - Abdomen Abdomen: Soft, Non tender - Back Back: No CVA TTP, Other (There is point tenderness to the paraspinous muscles in the lower spine more on the left than the right) - Derm Derm: Normal color, Warm and dry, No rash - Extremities Extremities: No deformity, No edema - Neuro Neuro: Alert and oriented X 3, 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 Relevant findings are: Rate: Rate (enter#) (47) Rhythm: Sinus bradycardia [place]: RAD (borderline) Compare to prior EKG: Changed from prior EKG (SPT 10/12/22 the LVH criteria have resolved) Computer interpretation: Agree with computer - Labs Labs: Laboratory Tests 10/18/23 10/18/23 10/18/23 14:10 14:10 15:21 WBC 6.2 RBC 4.83 Hgb 14.3 Hct 41.9 L MCV 86.7 MCH 29.6 MCHC 34.1 RDW 11.8 L Plt Count 259 MPV 11.4 Neut # (Auto) 4.8 Lymph # (Auto) 1.0 L [place] # (Auto) 0.4 Eos # (Auto) 0.0 Baso # (Auto) 0.1 Absolute Nucleated RBC 0.00 Nucleated RBC % 0.0 VBG pH VBG pCO2 VBG pO2 VBG HCO3 VBG Total CO2 VBG O2 Saturation VBG Base Excess Sodium 140 Potassium 3.9 Chloride 107 Carbon Dioxide 27 Anion Gap 6.0 BUN 25 H Creatinine 1.0 Estimated GFR (MDRD) 76 L Glucose 144 H Calcium 10.1 Total Bilirubin 1.2 H AST 13 ALT 13 Alkaline Phosphatase 72 Total Protein 6.6 Albumin 4.3 Globulin 2.3 Albumin/Globulin Ratio 1.9 Lipase 32 Urine Color YELLOW Urine Clarity CLEAR Urine pH 8.0 H Ur Specific [place] 1.015 Urine Protein NEGATIVE Urine Glucose (UA) 500 H Urine Ketones NEGATIVE Urine Occult Blood NEGATIVE Urine Nitrite NEGATIVE Urine Bilirubin NEGATIVE Urine Urobilinogen 0.2 (NORMAL) Ur Leukocyte Esterase NEGATIVE Ur Microscopic Review NOT INDICATED Urine Culture Comments NOT INDICATED Serum Ketones 10/18/23 10/18/23 15:50 16:00 WBC RBC Hgb Hct MCV MCH MCHC RDW Plt Count MPV Neut # (Auto) Lymph # (Auto) [place] # (Auto) Eos # (Auto) Baso # (Auto) Absolute Nucleated RBC Nucleated RBC % VBG pH 7.419 H VBG pCO2 35.2 L VBG pO2 122.7 H VBG HCO3 22.3 L VBG Total CO2 23.3 L VBG O2 Saturation 98.3 H VBG Base Excess -1.6 Sodium Potassium Chloride Carbon Dioxide Anion Gap BUN Creatinine Estimated GFR (MDRD) Glucose Calcium Total Bilirubin AST ALT Alkaline Phosphatase Total Protein Albumin Globulin Albumin/Globulin Ratio Lipase Urine Color Urine Clarity Urine pH Ur Specific [place] Urine Protein Urine Glucose (UA) Urine Ketones Urine Occult Blood Urine Nitrite Urine Bilirubin Urine Urobilinogen Ur Leukocyte Esterase Ur Microscopic Review Urine Culture Comments Serum Ketones NEGATIVE Procedures - IVC sono (time) 1345 Bedside IVC sono: IVC measures (cm) (1.21), IVC collapsed c insp (cm) (complete) , Dehydration (est 1 liter deficit) PD Medical Decision Making - ED course Complexity details: reviewed old records, reviewed results, re-evaluated patient, considered differential, d/w patient, d/w family Reviewed Lab Results: We reviewed a complete blood count count showing a normal white blood cell count normal hemoglobin hematocrit and platelets a blood gas shows a pH of 7.419 with a pO2 of 122 chemistries show a BUN elevated at 25 electrolytes are normal creatinine is 1 liver functions normal blood glucose elevated at 144 urinalysis shows 500 on the glucose in the urine and the toxicology is negative for serum ketones. I interpreted these laboratory test to indicate the patient has some degree of dehydration likely related to his diabetes with glucose in the urine and a BUN of 25. Otherwise no significant abnormalities lead to any other specific diagnosis ED course: 58-year-old male presents to the emergency department with severe back pain enough to make him vomit. He has had this happen to him previously and he does not endorse taking pain medications. He does have a history of ADHD and he is interrupted frequently by his to correct his history. He seems to have bad pain to his back maybe worse than usual and he has developed dizziness and ligh theadedness after vomiting from the pain. He denies narcotic pain reliever. He is mild volume depleted and saline is administered. I did not find evidence of a central process for the dizziness. He is complaining of severe back pain and has history of long standing urinary incontinence. He is medicated for MRI Scanning and at shift change the results of this scan are pending and care is turned over to Dr. Cheung. Departure - Departure Clinical Impression: Dehydration Chronic back pain Qualifiers: Back pain location: low back pain Back pain laterality: left Sciatica presence: unspecified whether sciatica present Qualified Code(s): M54.50 - Low back pain, unspecified Condition: Stable Instructions: ED Chronic Pain Management, ED Dehydration Follow-Up: Zackary Dean MD [Provider Admit Priv/Credential] -
[2023-10-18 16:13] LABS: VBG BASE EXCESS -1.6 mmol/L (-2 - +2); VBG HCO3 22.3 mmol/L (23-28); VBG PCO2 35.2 mmHg (41-51); VBG PH 7.419 (7.31-7.41); VBG PO2 122.7 mmHg (25-47); VBG TOTAL CO2 23.3 mmol/L (24-29)
[2023-10-18 16:14] LABS: VBG OXYGEN SATURATION 98.3 % (60-80)
[2023-10-18] MEDS ORDERED: GADOTERATE MEGLUMINE 10 MMOL/20 ML VIAL ONE (16:30)
[2023-10-18 17:12] VITALS: BP 107/57; O2SAT 98
[2023-10-18] MEDS: GADOTERATE MEGLUMINE 10 MMOL/20 ML VIAL IVP ONE (18:33)
--- NOTE | 2023-10-18 18:53 | MRI Report ---
PROCEDURE: Lumbar Spine W/WO INDICATIONS: low back pain urinary incontinence priro fx CONTRAST: CLARISCAN 15.6 ML TECHNIQUE: Noncontrast sagittal T1 spin echo and T2 fast spin echo, sagittal STIR, axial T1 and T2 fast spin ech o through the lumbar spine. In cases with scoliosis, additional coronal T2 fast spin echo may be per formed. After the administration of contrast, sagittal and axial T1 spin echo with fat saturation th rough the lumbar spine. COMPARISON: Correlation is made with CT, 05/02/2022. FINDINGS: Image quality: Excellent. Alignment and curvature: There is minimal retrolisthesis seen at the L2-L3 level. Marrow: Marrow is of normal overall signal. No acute vertebral body compression fractures. Remote L 1 and L5 anterior wedge deformities are seen, without acute features, which are stable compared to 20 23. No suspicious marrow enhancement. Spinal cord: Conus medullaris terminates at the L1 level. Visualized spinal cord demonstrates susie l signal, without suspicious enhancement. Paraspinous soft tissues: No paravertebral masses or abnormal enhancement. T10-T11: Moderate loss of disc height is seen. Reactive marrow endplate changes are seen, which are on hypointense on T1-weighted and hyperintense T2-weighted imaging, with associated increased STIR signal. These imaging findings are most consistent with endplate edema (Modic type 1 change). Mild en dplate enhancement is seen, which is most likely related to degenerative enhancement. At least modera te bilateral neuroforaminal narrowing can be seen. No significant central canal narrowing is seen. T11-T12: Normal. T12-L1: Moderate loss of disc height and signal are seen. Mild to moderate disc bulge is seen. A sup erimposed central disc protrusion is seen. Mild bilateral neural foraminal narrowing is seen. Minima l central canal narrowing is seen. L1-L2: Moderate loss of disc height and signal are seen. Reactive marrow endplate changes are se en, which are on hypointense on T1-weighted and hyperintense T2-weighted imaging, with associated i ncreased STIR signal. These imaging findings are most consistent with endplate edema (Modic type 1 ch vini). Mild disc bulge is seen. Mild facet hypertrophy is seen. No significant neural foraminal or central canal narrowing can be seen. L2-L3: Moderate loss of disc height and signal are seen. Reactive marrow endplate changes are seen, which are hyperintense on T1-weighted and T2-weighted imaging, without significant increased ST IR signal. These imaging findings are most consistent with fatty metaplasia (Modic type 2 change). Moderate disc bulge is seen at this level. There is a right foraminal disc protrusion, as on series 6 image 22. Moderate bilateral neural foraminal narrowing is seen. Moderate central canal narrow ing is seen. L3-L4: The disc height and disc signal are well preserved. Mild disc bulge is seen. Mild facet h ypertrophy is seen. No significant neural foraminal or central canal narrowing can be seen. L4-L5: Mild loss of disc height and disc signal are seen. Mild disc bulge is seen, with a mild c entral disc protrusion. Moderate facet hypertrophy is seen. There is at least moderate left-sided an d moderate to severe right-sided and vomiting. There is a mild degree of compression seen upon the ex iting nerve roots. Mild to moderate central canal narrowing is seen. L5-S1: No significant abnormality is seen. IMPRESSION: No significant acute abnormality is seen to explain the presenting symptoms. Multiple levels of focal degenerative change can be seen. Remote L1 and L5 fractures are seen. Reviewed by: Irineo Long MD on 10/18/2023 5:52 PM [email or web address] Approved by: Irineo Long MD on 10/18/2023 5:52 PM [email or web address] Station ID: [id number]
--- NOTE | 2023-10-18 19:10 | ED Physician Documentation ---
ED Addendum - Addendum Addendum: 10/18/23 19:10 Signout to me from Dr. Johnson at shift change pending MRI given the c ombination of severe back pain and urinary symptoms. At this time his MRI has been resulted and it has extensive findings but nothing acute or needing immediate surgical intervention. Patient seen and examined at the bedside and discussed results with him and his . He does need something for pain and I sent a prescription for Percocet 5/325 1-2 p.o. every 6 hours as needed pain #15 to [facility] in [place] and recommend he follow-up with his primary care physician for consideration for spine referral. Disposition: Discharged home Condition: Stable Diagnosis: 1. Back pain
[2023-10-18] MEDS: oxyCODONE/ACET 5/325 Prepack 4 PO STA (19:19)
== END 2023-10-18 19:39 | disposition home or self-care (01) ==
LOC: EDUNIT# → ED 13:03
DX: E86.0 Dehydration (principal); M54.50 Low back pain, unspecified; I10 Essential (primary) hypertension; E78.00 Pure hypercholesterolemia, unspecified; F03.90 Unspecified dementia, unspecified severity, without behavioral disturbance, psychotic disturbance, mood disturbance, and anxiety; E10.9 Type 1 diabetes mellitus without complications; E03.9 Hypothyroidism, unspecified; Z79.4 Long term (current) use of insulin; Z86.73 Personal history of transient ischemic attack (TIA), and cerebral infarction without residual deficits; Z86.010 Personal history of colon polyps; Z79.899 Other long term (current) drug therapy
CPT/HCPCS: 36415; 72158; 80053; 81003; 82009; 82803; 83690; 85025; 93005; 96361; 96374; 96375; 96376; 99283; 99284; A9575; J2060; 81001; 87086

== ENCOUNTER 2023-10-21 08:44 | Emergency (ER) | payer MEDICARE ==
--- NOTE | 2023-10-21 09:00 | ED Physician Documentation ---
History of Present Illness - Stated complaint Stated Complaint: NAUSEA - Chief complaint Chief Complaint: General - Additonal information Additional information: 58-year-old gentleman with history of diabetes due to pancreatic insufficiency here with nausea vomiting and dizziness. Patient states he was in the ER over the weekend with dizziness and back pain had an MRI of his low back and was sent home. That was on Friday evening. Since then he has vertigo type symptoms worse if he closes his eyes worse with moving his head. He is able to walk but it is quite difficult profound nausea and vomiting. His blood glucoses up to more than 400 despite his insulin pump. Review of Systems Constitutional: denies: Fever, Chills Eyes: denies: Loss of vision Ears: denies: Loss of hearing Neurologic: denies: Focal weakness, Numbness, Seizure, Confused PD PAST MEDICAL HISTORY - Past Medical History Past Medical History: Yes Cardiovascular: Hypertension, High cholesterol, Arrhythmia, Other Respiratory: Asthma, Pneumonia Neuro: Dementia, CVA, Fainting, Other Endocrine/Autoimmune: Type 1 diabetes, HyPOthyroidism GI: GERD, Ulcers, Colon polyps : Other HEENT: Other Psych: Depression, Anxiety, ADD/ADHD Musculoskeletal: Chronic back pain, Other Derm: None - Past Surgical History Past Surgical History: Yes General: Colonoscopy Ortho: Carpal Tunnel surgery, Other Cardiovascular: Other HEENT: Other - Present Medications Home Medications: Ambulatory Orders Medication Instructions Recorded Confirmed Atorvastatin Calcium [Lipitor] 80 mg PO QPM 05/30/21 05/20/23 Donepezil HCl [Aricept] 10 mg PO DAILY 05/30/21 05/20/23 Mirtazapine 45 mg PO QPM 05/30/21 05/20/23 DULoxetine [Cymbalta] 30 mg PO DAILY 01/26/22 05/20/23 Tamsulosin [Flomax] 0.4 mg PO DAILY 01/26/22 05/20/23 Lisdexamfetamine Dimesylate 20 mg PO DAILY 07/03/22 05/20/23 [Vyvanse] Insulin Lispro 83 unit SUBQ .INSULIN PUMP 07/04/22 05/20/23 Losartan Potassium 25 mg PO DAILY 07/04/22 05/20/23 Amox/Clav 875/125 [Augmentin] 1 each PO Q12H #14 tablet 05/09/23 05/20/23 Insulin Glargine [Lantus Solostar] 40 unit SUBQ DAILY #1 each 05/09/23 05/20/23 Insulin Lispro [Humalog Kwikpen 20 unit SUBQ AC #1 each 05/09/23 05/20/23 U-100] dexAMETHasone [Decadron] 4 mg PO DAILY #5 tablet 05/09/23 05/20/23 Penicillin V Potassium 500 mg PO Q6HR #40 tablet 06/13/23 Oxycodone HCl/Acetaminophen 1 - 2 each PO Q6H PRN #14 tablet 10/18/23 [Percocet 5-325 mg Tablet] - Allergies Allergies/Adverse Reactions: Allergies Allergy/AdvReac Type Severity Reaction Status Date / Time omeprazole Allergy Intermediate Nausea Verified 10/21/23 09:01 insulin aspart Allergy Unknown Verified 10/21/23 09:01 [From Novolog U-100 Insulin aspart] insulin aspart protamine Allergy Unknown Verified 10/21/23 09:01 human [From Novolog Mix 70-30 U-100 Insuln] codeine AdvReac Severe Dizziness Verified 10/21/23 09:01 doxycycline AdvReac Intermediate Dizziness Verified 10/21/23 09:01 - Social History Does the pt smoke?: No Smoking Status: Never smoker Does the pt drink ETOH?: No Does the pt have substance abuse?: Yes - Immunizations Immunizations are current?: No Immunizations: Other immun not current - POLST Patient has POLST: No POLST Status: Full Code PD ED PE NORMAL - Vitals Vital signs reviewed: Yes - General General: Alert and oriented X 3, Other (Actively vomiting) - HEENT HEENT: Atraumatic - Neck Neck: Supple, no meningeal sign - Cardiac Cardiac: RRR, No murmur - Respiratory Respiratory: No respiratory distress - Abdomen Abdomen: Normal bowel sounds - Neuro Neuro: Alert and oriented X 3, command and control specialist 2-12 intact, No motor deficit, No sensory deficit, Other (No nystagmus. Gxshuv-ozci-ffnpaa is intact.) Results - Vitals Vitals: Vital Signs - 24 hr 10/21/23 10/21/23 10/21/23 08:49 10:52 12:00 Temperature 36.4 C L Heart Rate 86 74 73 Respiratory 20 16 16 Rate Blood Pressure 111/69 100/51 L 117/69 O2 Saturation 99 100 97 Oxygen O2 Source [] Room air O2 Source Room air - EKG (time done) 0900 EKG releavant findings:: EKG personally interpreted by author of this note. Relevant findings are: normal sinus rhythm rate of 72. Borderline right axis deviation. Normal intervals otherwise. No ischemic changes noted. - Labs Labs: Laboratory Tests 10/21/23 10/21/23 10/21/23 09:06 09:06 09:06 WBC 5.8 RBC 4.62 L Hgb 14.1 Hct 40.1 L MCV 86.8 MCH 30.5 MCHC 35.2 RDW 11.7 L Plt Count 221 MPV 12.1 H Neut # (Auto) 4.4 Lymph # (Auto) 1.0 L Teller # (Auto) 0.4 Eos # (Auto) 0.1 Baso # (Auto) 0.1 Absolute Nucleated RBC 0.00 Nucleated RBC % 0.0 Sodium 130 L Potassium 4.7 H Chloride 94 L Carbon Dioxide 20 L Anion Gap 16.0 H BUN 25 H Creatinine 1.2 Estimated GFR (MDRD) 62 L Glucose 500 H* Calcium 9.8 Phosphorus 3.2 Magnesium 2.0 Total Bilirubin 1.5 H AST 15 ALT 14 Alkaline Phosphatase 83 Total Protein 7.0 Albumin 4.4 Globulin 2.6 Albumin/Globulin Ratio 1.7 Lipase 19 Urine Color Urine Clarity Urine pH Ur Specific [place] Urine Protein Urine Glucose (UA) Urine Ketones Urine Occult Blood Urine Nitrite Urine Bilirubin Urine Urobilinogen Ur Leukocyte Esterase Ur Microscopic Review Urine Culture Comments 10/21/23 11:12 WBC RBC Hgb Hct MCV MCH MCHC RDW Plt Count MPV Neut # (Auto) Lymph # (Auto) Teller # (Auto) Eos # (Auto) Baso # (Auto) Absolute Nucleated RBC Nucleated RBC % Sodium Potassium Chloride Carbon Dioxide Anion Gap BUN Creatinine Estimated GFR (MDRD) Glucose Calcium Phosphorus Magnesium Total Bilirubin AST ALT Alkaline Phosphatase Total Protein Albumin Globulin Albumin/Globulin Ratio Lipase Urine Color YELLOW Urine Clarity CLEAR Urine pH 5.5 Ur Specific [place] 1.025 Urine Protein NEGATIVE Urine Glucose (UA) >=1000 H Urine Ketones >=80 H Urine Occult Blood NEGATIVE Urine Nitrite NEGATIVE Urine Bilirubin NEGATIVE Urine Urobilinogen 0.2 (NORMAL) Ur Leukocyte Esterase NEGATIVE Ur Microscopic Review NOT INDICATED Urine Culture Comments NOT INDICATED PD Medical Decision Making - ED course Complexity details: reviewed old records, reviewed results, re-evaluated patient, considered differential ED course: IVF x 2L. Insulin lispro 10units IV, then 15 units IV. Re-check glucose 315. For vertigo- check CT-A head and neck, CT brain His imaging is reassuring specifically he has no evidence of stenosis of his posterior circulation I do not think this is a vertigo type presentation in fact his dizziness seems most likely related to dehydration and profound hyperglycemia. His blood sugar is markedly improved after treatment in the emergency department he is tolerating p.o. and ambulatory and feels and looks much much better. I asked him to keep careful tabs on his blood sugar over the next few days and follow these results up with his primary care physician. Doubt that he has had a central cause of dizziness or vertigo such as stroke given his presentation and improvement. This is more likely a metabolic related dizziness. Stable for outpatient disposition Departure - Departure Disposition: 01 Home, Self Care Clinical Impression: Hyperglycemia, Dehydration Condition: Fair Instructions: ED Dehydration, ED Hyperglycemia Diabetic Forms: PCP List
[2023-10-21] MEDS: SODIUM CHLORIDE 0.9% 1,000 ML IV STA ×3 (09:09→12:13)
[2023-10-21 09:13] LABS: BASOPHILS # (AUTO) 0.1 10^3/uL (0.0-0.1); BASOPHILS % (AUTO) 1.2 %; EOSINOPHILS # (AUTO) 0.1 10^3/uL (0.0-0.7); EOSINOPHILS % (AUTO) 0.9 %; HCT - HEMATOCRIT 40.1 % (42.0-52.0); HGB - HEMOGLOBIN 14.1 g/dL (14.0-18.0); LYMPHOCYTES % (AUTO) 16.8 %; MEAN CORPUSCULAR HEMOGLOBIN 30.5 pg (27.0-31.0); MEAN CORPUSCULAR HGB CONC 35.2 g/dL (32.0-36.0); MEAN CORPUSCULAR VOLUME 86.8 fL (80.0-94.0); MEAN PLATELET VOLUME 12.1 fL (7.4-11.4); MONOCYTES # (AUTO) 0.4 10^3/uL (0.0-1.0); MONOCYTES % (AUTO) 6.2 %; NEUTROPHILS # (AUTO) 4.4 10^3/uL (1.5-6.6); NEUTROPHILS % (AUTO) 74.7 %; PLT - PLATELET COUNT 221 10^3/uL (130-450); RED BLOOD COUNT 4.62 10^6/uL (4.70-6.10); RED CELL DISTRIBUTION WIDTH 11.7 % (12.0-15.0); WHITE BLOOD COUNT 5.8 x10^3/uL (4.8-10.8)
[2023-10-21] MEDS: ONDANSETRON 4 MG/2 ML VIAL IVP STA (09:21)
[2023-10-21 09:26] LABS: PHOSPHORUS 3.2 mg/dL (2.5-5.0)
[2023-10-21 09:41] LABS: ALBUMIN 4.4 g/dL (3.2-5.5); ALBUMIN/GLOBULIN RATIO 1.7 (1.0-2.2); BILIRUBIN,TOTAL 1.5 mg/dL (0.2-1.0); CALCIUM 9.8 mg/dL (8.5-10.3); CREATININE 1.2 mg/dL (0.6-1.3); POTASSIUM 4.7 mmol/L (3.5-4.5)
[2023-10-21] MEDS ORDERED: iohexoL-300 100 ML VIAL ONE ×2 (09:42→11:41)
[2023-10-21] MEDS: INSULIN LISPRO 300 UNIT/3 ML PEN SUBQ STA ×3 (09:53→11:16)
[2023-10-21] MEDS: INSULIN LISPRO 300 UNIT/3 ML PEN IVP STA (10:04)
[2023-10-21 11:27] LABS: BILIRUBIN,URINE NEGATIVE (NEGATIVE); GLUCOSE, URINE (UA) >=1000 mg/dL (NEGATIVE); KETONES,URINE (UA) >=80 mg/dL (NEGATIVE); LEUKOCYTE ESTERASE, URINE NEGATIVE (NEGATIVE); NITRITE,URINE NEGATIVE (NEGATIVE); OCCULT BLOOD,URINE NEGATIVE (NEGATIVE); PH,URINE 5.5 PH (5.0-7.5); PROTEIN,URINE NEGATIVE (NEGATIVE); UROBILINOGEN,URINE 0.2 (NORMAL) E.U./dL (NORMAL)
[2023-10-21 11:28] LABS: CLARITY,URINE CLEAR (CLEAR)
--- NOTE | 2023-10-21 12:06 | CT Report ---
PROCEDURE: Head WO INDICATIONS: vertigo TECHNIQUE: Noncontrast 4.5 mm thick angled axial sections acquired from the foramen magnum to the vertex. For r adiation dose reduction, the following was used: automated exposure control, adjustment of mA and/or kV according to patient size. COMPARISON: 10/14/2022 FINDINGS: Image quality: Diagnostic CSF spaces: Basal cisterns are patent. Lateral ventricles are symmetric. Volume: Vascular calcifications. Periventricular white matter disease is commonly seen with chronic m icroangiopathy. Volume loss is present. These findings are mild. Brain: No acute hemorrhage. No gross fossa. Differentiation Craniofacial structures: No significant paranasal sinus opacity IMPRESSION: No acute intracranial abnormality. If there is high concern for parenchymal pathology, consider further evaluation with MRI. Reviewed by: Itz Ponce MD on 10/21/2023 12:05 PM PDT Approved by: Itz Ponce MD on 10/21/2023 12:05 PM PDT Station ID: [id number]
[2023-10-21] MEDS: MECLIZINE 12.5 MG TABLET PO STA (12:23)
--- NOTE | 2023-10-21 13:21 | CT Report ---
PROCEDURE: Angio Head/Neck INDICATIONS: vertigo TECHNIQUE: After the administration of intravenous contrast, 1 mm thick sections acquired from the aortic arch t hrough the [place] of [place]. 3-dimensional uaodobs-zlptkrgds-aoieybopsp (MIP) and/or volume renderin g reformats were acquired of the central intracranial vasculature and neck separately. For radiation dose reduction, the following was used: automated exposure control, adjustment of mA and/or kV acco rding to patient size. CONTRAST: Omni 300 80ml COMPARISON: 10/13/2022 FINDINGS: Image quality: Diagnostic. HEAD CT: Please refer to same day CT head. HEAD CT ANGIOGRAPHY: Anterior circulation: Intracranial internal carotid arteries are normal in size and flow with mild v ascular calcifications. The flow within the paired anterior cerebral arteries is normal and symmetri c. The flow within the middle cerebral arteries is normal and symmetric. The anterior communicating artery is seen. No aneurysms are seen. Posterior circulation: Visualized portions of the vertebral arteries demonstrate normal caliber, and join to form a normal appearing basilar artery. Flow within the posterior cerebral arteries is norm al and symmetric. No aneurysms are seen. NECK CT ANGIOGRAPHY: Carotid system: The great vessels demonstrate a conventional anatomy as they arise from the aortic a rch. The origins of the common carotid arteries appear patent. The common carotid arteries demonstr ate normal caliber and courses. The bifurcation regions are both widely patent. The internal caroti d arteries demonstrate normal calibers and courses. Posterior circulation: The origins of the vertebral arteries both appear widely patent. The more granda perior extracranial portions of both vertebral arteries also demonstrate normal courses and calibers. They join to form a normal appearing basilar artery. Soft tissues: Visualized neck soft tissues demonstrate no suspicious abnormalities. Bones: No suspicious bony lesions. Visualized cervical spine appears normally aligned. Degenerative changes of the spine. IMPRESSION: No significant intracranial arterial abnormality is seen. No significant abnormality is seen within the arteries of the neck. The estimate of stenosis included in the report of the imaging study was calculated using the NASCET method Reviewed by: Luis Angel Lee MD on 10/21/2023 1:19 PM PDT Approved by: Luis Angel Lee MD on 10/21/2023 1:19 PM PDT Station ID: [id number]
[2023-10-21] MEDS: iohexoL-300 100 ML VIAL IVP ONE (13:47)
[2023-10-21 14:09] VITALS: O2SAT 97
[2023-10-21 14:55] VITALS: BP 131/68
== END 2023-10-21 14:49 | disposition home or self-care (01) ==
LOC: ED 08:44
DX: E10.65 Type 1 diabetes mellitus with hyperglycemia (principal); E86.0 Dehydration; I10 Essential (primary) hypertension; E78.00 Pure hypercholesterolemia, unspecified; F03.90 Unspecified dementia, unspecified severity, without behavioral disturbance, psychotic disturbance, mood disturbance, and anxiety; E03.9 Hypothyroidism, unspecified; Z86.010 Personal history of colon polyps; Z87.11 Personal history of peptic ulcer disease; Z79.4 Long term (current) use of insulin; Z79.899 Other long term (current) drug therapy
CPT/HCPCS: 36415; 70450; 70496; 70498; 80053; 81003; 83690; 83735; 84100; 85025; 93005; 96361; 96374; 99284; A9270; Q9967; 81001; 87086

== ENCOUNTER 2024-06-02 09:14 | Inpatient (IN) ==
[2024-06-02] MEDS: SODIUM CHLORIDE 0.9% 1,000 ML IV STA ×3 (09:29→13:10)
[2024-06-02] MEDS: lidocaine 1% 20 ML MDV SUBQ ONE (09:29)
[2024-06-02 09:32] LABS: BASOPHILS # (AUTO) 0.1 10^3/uL (0.0-0.1); BASOPHILS % (AUTO) 0.5 %; EOSINOPHILS % (AUTO) 0.1 %; HCT - HEMATOCRIT 43.1 % (42.0-52.0); HGB - HEMOGLOBIN 13.9 g/dL (14.0-18.0); LYMPHOCYTES # (AUTO) 0.9 10^3/uL (1.5-3.5); LYMPHOCYTES % (AUTO) 6.7 %; MEAN CORPUSCULAR HEMOGLOBIN 29.8 pg (27.0-31.0); MEAN CORPUSCULAR HGB CONC 32.3 g/dL (32.0-36.0); MEAN CORPUSCULAR VOLUME 92.3 fL (80.0-94.0); MEAN PLATELET VOLUME 12.6 fL (7.4-11.4); MONOCYTES # (AUTO) 0.4 10^3/uL (0.0-1.0); MONOCYTES % (AUTO) 2.7 %; NEUTROPHILS # (AUTO) 12.1 10^3/uL (1.5-6.6); NEUTROPHILS % (AUTO) 89.4 %; PLT - PLATELET COUNT 226 10^3/uL (130-450); RED BLOOD COUNT 4.67 10^6/uL (4.70-6.10); RED CELL DISTRIBUTION WIDTH 12.6 % (12.0-15.0); WHITE BLOOD COUNT 13.5 x10^3/uL (4.8-10.8)
[2024-06-02 09:36] LABS: KETONES, SERUM (ACETEST) SMALL (NEGATIVE)
[2024-06-02 09:46] LABS: LIPASE 10 U/L (11-82)
[2024-06-02 09:48] LABS: ALBUMIN/GLOBULIN RATIO 1.5 (1.0-2.2); ALKALINE PHOSPHATASE 63 IU/L (42-121); ALT ALANINE AMINOTRANSFERASE 18 IU/L (10-60); AST ASPARTATE AMINOTRANSFERASE 12 IU/L (10-42); BILIRUBIN,TOTAL 1.3 mg/dL (0.2-1.0); BUN - BLOOD UREA NITROGEN 35 mg/dL (6-20); CALCIUM 9.7 mg/dL (8.5-10.3); CARBON DIOXIDE - CO2 11 mmol/L (21-32); CHLORIDE 93 mmol/L (101-111); CREATININE 1.7 mg/dL (0.6-1.3); GFR - MDRD 41 (>89); GLUCOSE 722 mg/dL (74-104); POTASSIUM 4.8 mmol/L (3.5-4.5); SODIUM 132 mmol/L (135-145); TOTAL PROTEIN 6.6 g/dL (6.4-8.9)
[2024-06-02 10:36] LABS: ABG BASE EXCESS -18.5 mmol/L (-2.0-3.0); ABG HCO3 8.5 mmol/L (22.0-26.0); ABG OXYGEN SATURATION 100 % (95-98); ABG PH 7.28 (7.35-7.45); ABG PO2 158 mmHg (83-108)
[2024-06-02 10:37] LABS: ALLEN TEST POSITIVE
--- NOTE | 2024-06-02 10:43 | XRAY Report ---
PROCEDURE: XR Chest for Line Placement INDICATIONS: R subclavian line placement TECHNIQUE: One view of the chest was acquired. COMPARISON: 03/27/2024. FINDINGS: Surgical changes and devices: Right internal jugular central venous catheter tip is in SVC. Lungs and pleura: No pleural effusions or pneumothorax. No consolidation. Mediastinum: Mediastinal contours appear normal. Heart size is normal. Bones and chest wall: No suspicious bony lesions. Overlying soft tissues appear unremarkable. IMPRESSION: Right internal jugular central venous catheter tip is in SVC. No acute cardiopulmonary process. Reviewed by: Ji Quiñones MD on 06/02/2024 10:42 AM PDT Approved by: Ji Quiñones MD on 06/02/2024 10:42 AM PDT Station ID: [id number]
[2024-06-02 10:44] LABS: ABG PCO2 18 mmHg (34-45); ABG TCO2 9.1 mmol/L (21.0-29.0)
[2024-06-02] MEDS: diphenhydrAMINE INJ 50 MG/ML VIAL IVP STA (11:01)
[2024-06-02] MEDS: INSULIN REGULAR, HUMAN 300 UNIT/3 ML PEN IVP STA (11:02)
[2024-06-02] MEDS: INSULIN REGULAR IN 0.9 % NS 100 UNIT/100 ML BAG IV SCH ×2 (11:04→15:14)
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
[2024-06-02 13:21] LABS: ALBUMIN 3.9 g/dL (3.2-5.5); ALBUMIN/GLOBULIN RATIO 1.8 (1.0-2.2); BILIRUBIN,TOTAL 1.1 mg/dL (0.2-1.0); CALCIUM 8.7 mg/dL (8.5-10.3); CREATININE 1.7 mg/dL (0.6-1.3); POTASSIUM 4.5 mmol/L (3.5-4.5); TOTAL PROTEIN 6.1 g/dL (6.4-8.9)
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
[2024-06-02] MEDS: SODIUM CHLORIDE 0.9% 1,000 ML IV SCH (15:14)
[2024-06-02 15:18] LABS: CALCIUM 8.3 mg/dL (8.5-10.3); CREATININE 1.5 mg/dL (0.6-1.3); MAGNESIUM 2.1 mg/dL (1.7-2.3); POTASSIUM 4.5 mmol/L (3.5-4.5)
[2024-06-02 15:33] LABS: CORONAVIRUS 229E-RESP PCR NOT DETECTED; CORONAVIRUS HKU1-RESP PCR NOT DETECTED; CORONAVIRUS OC43-RESP PCR NOT DETECTED; HUMAN METAPNEUMOVIRUS NOT DETECTED; SARS-CoV-2 -RESP PCR PANEL NOT DETECTED
[2024-06-02 15:34] LABS: B. PARAPERTUSSIS- RESP PCR PAN NOT DETECTED; B. PERTUSSIS- RESP PCR PANEL NOT DETECTED; C. PNEUMONIAE- RESP PCR PANEL NOT DETECTED; CORONAVIRUS NL63-RESP PCR NOT DETECTED; INFLUENZA A- RESP PCR PANEL NOT DETECTED; INFLUENZA B - RESP PCR PANEL NOT DETECTED; M. PNEUMONIAE- RESP PCR PANEL NOT DETECTED; PARAINFLUENZA VIRUS 1 NOT DETECTED; PARAINFLUENZA VIRUS 2 NOT DETECTED; PARAINFLUENZA VIRUS 4 NOT DETECTED; RHINOVIRUS/ENTEROVIRUS NOT DETECTED; RSV- RESP PCR PANEL NOT DETECTED
[2024-06-02] MEDS: POTASSIUM CHLOR 20 MEQ/100 ML 20 MEQ/100 ML BAG IV ONE (15:38)
[2024-06-02 17:26] LABS: CALCIUM 8.2 mg/dL (8.5-10.3); CREATININE 1.3 mg/dL (0.6-1.3); POTASSIUM 4.7 mmol/L (3.5-4.5)
--- NOTE | 2024-06-02 18:07 | PHARMACY PROGRESS NOTE ---
Best Possible Medication History Admit Date and Time: 06/02/24 1248 Home Medications Medication Instructions Recorded Confirmed Type atorvastatin 80 mg tablet (Lipitor) 80 mg PO QPM 05/30/21 06/02/24 History losartan 25 mg tablet 25 mg PO DAILY #90 tabs 12/24/23 06/02/24 Rx tamsulosin 0.4 mg capsule 0.4 mg PO DAILY #90 caps 12/24/23 06/02/24 Rx donepezil 5 mg tablet 10 mg PO BID 03/15/24 06/02/24 History blood-glucose meter,continuous #1 ea 03/17/24 04/30/24 Rx (Dexcom G7 Block Bolter Mule Operator) blood-glucose sensor (Dexcom G7 #10 ea 03/17/24 04/30/24 Rx Sensor device) meclizine 25 mg tablet 25 mg PO TID PRN dizziness 03/17/24 06/02/24 History mirtazapine 45 mg tablet 45 mg PO HS #90 tabs 03/17/24 06/02/24 Rx insulin lispro 100 unit/mL 83 - 100 unit subcut QDAY 06/02/24 06/02/24 History subcutaneous pen (Humalog KwikPen (U-100) Insulin) Processed by: Pharmacy Medications reviewed in ED?: Yes Medication History completed: Yes Patient Interview: Completed Secondary Source(s): Pharmacy records and Insurance records [facility] Statement: As the person ultimately responsible for medication therapy, providers are able to order a medication from an existing home medication list in [facility] via the "Reconcile Routine" prior to Confirmation of that medication by fire support specialist. Such practice is discouraged except when the physician, in their clinical judgment, deems that a medical need exists for a medication without regard to previous use.
[2024-06-02 21:13] LABS: CALCIUM, IONIZED 1.17 mmol/L (1.09-1.30); VBG PH 7.464 (7.31-7.41)
[2024-06-02] MEDS: INSULIN GLARGINE-YFGN 300 UNIT/3 ML PEN SUBQ SCH (21:13)
[2024-06-02] MEDS: INSULIN LISPRO 300 UNIT/3 ML PEN SUBQ SCH (21:13)
[2024-06-02 21:26] LABS: PHOSPHORUS 1.6 mg/dL (2.5-5.0); POTASSIUM 3.8 mmol/L (3.5-4.5)
[2024-06-02] MEDS ORDERED: MECLIZINE 12.5 MG TABLET PO PRN (23:20)
[2024-06-02] MEDS: ATORVASTATIN 40 MG TABLET PO SCH (23:53)
[2024-06-02] MEDS: TAMSULOSIN 0.4 MG CAPSULE PO SCH (23:54)
[2024-06-02] MEDS: DONEPEZIL 5 MG TABLET PO SCH (23:54)
[2024-06-02] MEDS: NEUTRA-PHOS 250 MG TABLET PO SCH (23:55)
[2024-06-02] MEDS: MIRTAZAPINE 15 MG TABLET PO SCH (23:55)
[2024-06-02] MEDS: LOSARTAN 50 MG TABLET PO SCH (23:59)
[2024-06-03 04:25] LABS: BASOPHILS # (AUTO) 0.1 10^3/uL (0.0-0.1); BASOPHILS % (AUTO) 0.5 %; EOSINOPHILS % (AUTO) 0.1 %; HCT - HEMATOCRIT 33.7 % (42.0-52.0); HGB - HEMOGLOBIN 11.2 g/dL (14.0-18.0); LYMPHOCYTES # (AUTO) 1.4 10^3/uL (1.5-3.5); LYMPHOCYTES % (AUTO) 13.4 %; MEAN CORPUSCULAR HEMOGLOBIN 30.2 pg (27.0-31.0); MEAN CORPUSCULAR HGB CONC 33.2 g/dL (32.0-36.0); MEAN CORPUSCULAR VOLUME 90.8 fL (80.0-94.0); MEAN PLATELET VOLUME 12.1 fL (7.4-11.4); MONOCYTES # (AUTO) 0.7 10^3/uL (0.0-1.0); MONOCYTES % (AUTO) 6.9 %; NEUTROPHILS # (AUTO) 8.2 10^3/uL (1.5-6.6); NEUTROPHILS % (AUTO) 78.7 %; PLT - PLATELET COUNT 177 10^3/uL (130-450); RED BLOOD COUNT 3.71 10^6/uL (4.70-6.10); WHITE BLOOD COUNT 10.5 x10^3/uL (4.8-10.8)
[2024-06-03 04:27] LABS: CALCIUM, IONIZED 1.15 mmol/L (1.09-1.30); VBG PH 7.385 (7.31-7.41)
[2024-06-03 04:41] LABS: CALCIUM 7.8 mg/dL (8.5-10.3); CREATININE 1.2 mg/dL (0.6-1.3); MAGNESIUM 1.8 mg/dL (1.7-2.3); PHOSPHORUS 3.6 mg/dL (2.5-5.0); POTASSIUM 4.3 mmol/L (3.5-4.5)
[2024-06-03] MEDS: INSULIN LISPRO 300 UNIT/3 ML PEN SUBQ SCH ×2 (08:36)
[2024-06-03] MEDS ORDERED: LOSARTAN 50 MG TABLET PO SCH (09:00)
[2024-06-03] MEDS ORDERED: TAMSULOSIN 0.4 MG CAPSULE PO SCH (09:00)
[2024-06-03] MEDS ORDERED: DONEPEZIL 5 MG TABLET PO SCH (09:00)
[2024-06-03 09:32] LABS: ESTIMATED AVERAGE GLUCOSE 217 mg/dL (70-100); HEMOGLOBIN A1c% 9.2 % (4.27-6.07)
[2024-06-03 12:11] VITALS: TEMP 97.9
--- NOTE | 2024-06-03 15:55 | Discharge Summary ---
Discharge Summary Admit Date: 06/02/24 Discharge Date: 06/03/24 Discharging Provider: Dr Donal Robles Code Status: Attempt Resuscitation DIAGNOSES Admission Diagnoses: DKA Diabetes mellitus Discharge Diagnoses with Status of Each Condition: DKA - Resolved Type 1 DM - Improved HPI History of Present Illness: Patient provide patient is a 58-year-old man with With type 1 diabetes who manages his blood sugar with an insulin pump and Dexcom. He was admitted on 06/02/2024 with diabetic ketoacidosis. He presented to the ED the day prior with hyperglycemia with blood sugars in the 700s. He spent time in the ED receiving IV fluids and insulin and due to limited bed availability decided to go home hoping he could further manage his blood sugar at home after the ED successfully resolved the DKA and lowered his blood sugar to the 200s. The next day however he returned to the ED with similar symptoms including dysuria and a very brief sensation that he described as feeling like he got the wind knocked out of him. His blood sugar was reading over 700 on his monitor and he was noting a malfunction with his insulin pump in which he was not able to receive any insulin overnight. He decided to return to the ED and was again found to be in DKA with blood sugars over 700. HOSPITAL COURSE Hospital Course: Patient was admitted to the ICU for DKA management and underwent to the routine DKA protocol including IV fluids and insulin gtt. and within a few hours his DKA resolved and blood sugar continued to improve overnight. He was counseled on his diabetes management and it was confirmed that he was having difficulty with his insulin pump which appears to be malfunctioning. He was given recommendations for diabetic education and he will be sent home with new supplies and vials of insulin so that he can continue to provide basal insulin as well as preprandial NovoLog until he can be seen either by his new PCP or stopboard assembler and eventually get a pump replacement. ALLERGIES Allergies Allergy/AdvReac Type Severity Reaction Status Date / Time insulin aspart protamine Allergy Intermediate Rash Verified 06/01/24 11:18 human codeine AdvReac Severe Loss of Verified 06/01/24 11:18 consciousness doxycycline AdvReac Intermediate Dizziness Verified 06/01/24 11:18 omeprazole AdvReac Intermediate Nausea Verified 06/01/24 11:18 MEDICATIONS Ambulatory Orders Medication Instructions Recorded Confirmed atorvastatin 80 mg tablet (Lipitor) 80 mg PO QPM 05/30/21 06/02/24 losartan 25 mg tablet 25 mg PO DAILY #90 tabs 12/24/23 06/02/24 tamsulosin 0.4 mg capsule 0.4 mg PO DAILY #90 caps 12/24/23 06/02/24 donepezil 5 mg tablet 10 mg PO BID 03/15/24 06/02/24 blood-glucose meter,continuous #1 ea 03/17/24 04/30/24 (Dexcom G7 Rail Gang Supervisor) blood-glucose sensor (Dexcom G7 #10 ea 03/17/24 04/30/24 Sensor device) meclizine 25 mg tablet 25 mg PO TID PRN dizziness 03/17/24 06/02/24 mirtazapine 45 mg tablet 45 mg PO HS #90 tabs 03/17/24 06/02/24 insulin lispro 100 unit/mL 83 - 100 unit subcut QDAY 06/02/24 06/02/24 subcutaneous pen (Humalog KwikPen (U-100) Insulin) insulin syringe-needle U-100 1 mL #100 ea 06/03/24 29 gauge x 1/2" (Insulin Syringe) PHYSICAL EXAM AT DISCHARGE General Appearance: positive No acute distress and Alert Eyes Bilateral: positive Normal inspection, PERRL and EOMI Respiratory: positive Chest non-tender and No respiratory distress; negative Breath sounds nml or Wheezes Cardiovascular: positive Regular rate & rhythm, No murmur and Irregularly irregular Abdomen: positive Non-tender, No organomegaly and Nml bowel sounds Skin: positive Color nml Extremities: positive Non-tender Neurologic/Psychiatric: positive Oriented x3, CN's nml (2-12) and Motor nml LABS 06/03/24 04:15 06/03/24 04:15 DIAGNOSTIC IMAGING Diagnostic Imaging Results: Final report reviewed FOLLOW UP Follow Up: Establish and follow up with new PCP TIME SPENT Time Spent in Discharge (Minutes): 93 Discharge Plan Discharge Patient Disposition: Home, Self Care Condition: Critical Prescriptions: New (DME) insulin syringe-needle U-100 [Insulin Syringe] 1 mL 29 gauge x 1/2" syringe See Rx Instructions .Route Qty: 100 0RF Rx Instructions: As directed Continued losartan 25 mg tablet 25 mg PO DAILY Qty: 90 3RF tamsulosin 0.4 mg capsule 0.4 mg PO DAILY Qty: 90 3RF atorvastatin [Lipitor] 80 MG tablet 80 mg PO QPM Patient Comments: TAKE 1 TABLET BY MOUTH ONCE DAILY IN THE EVENING FOR CHOLESTEROL insulin lispro [Humalog KwikPen Insulin] 100 unit/mL insulin pen 83 - 100 unit subcut QDAY Rx Instructions: via insulin pump donepezil 5 mg tablet 10 mg PO BID mirtazapine 45 mg tablet 45 mg PO HS Qty: 90 3RF meclizine 25 mg tablet 25 mg PO TID PRN (Reason: dizziness) (DME) Dexcom G7 Rail Gang Supervisor Misc See Rx Instructions .Route Qty: 1 0RF Rx Instructions: As directed (DME) Dexcom G7 Sensor Device See Rx Instructions .Route Qty: 10 3RF Rx Instructions: As directed, changed q 10 days Activity Restrictions: No Restrictions Diet: Diabetic Print Language: Filipino Patient Instructions: Diabetes Insulin Injections Ch, Diabetes Type 1 Stand Alone Forms: PCP List
[2024-06-03 17:08] VITALS: BP 123/75; O2SAT 99
[2024-06-03] MEDS: INSULIN GLARGINE-YFGN 300 UNIT/3 ML PEN SUBQ SCH (17:22)
[2024-06-03] MEDS ORDERED: ATORVASTATIN 40 MG TABLET PO SCH (21:00)
== END 2024-06-03 18:15 | disposition home or self-care (01) | DRG 638 ==
LOC: ED 09:14 → ICU 12:48
PROVIDERS: ADMIT Family Medicine Sports Medicine; ATTEND Family Medicine Sports Medicine
DX: E78.2 Mixed hyperlipidemia; Z87.891 Personal history of nicotine dependence; N13.8 Other obstructive and reflux uropathy; Z96.41 Presence of insulin pump (external) (internal); E10.10 Type 1 diabetes mellitus with ketoacidosis without coma; I44.4 Left anterior fascicular block; I49.5 Sick sinus syndrome; Z79.4 Long term (current) use of insulin; N40.1 Benign prostatic hyperplasia with lower urinary tract symptoms; E03.9 Hypothyroidism, unspecified; F32.A Depression, unspecified; Z79.899 Other long term (current) drug therapy

== ENCOUNTER 2024-08-21 08:51 | Observation (INO) ==
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
[2024-08-21] MEDS: SODIUM CHLORIDE 0.9% 1,000 ML IV STA (09:09)
[2024-08-21 09:10] LABS: BASOPHILS % (AUTO) 0.6 %; EOSINOPHILS % (AUTO) 0.2 %; HCT - HEMATOCRIT 40.3 % (42.0-52.0); HGB - HEMOGLOBIN 13.4 g/dL (14.0-18.0); LYMPHOCYTES # (AUTO) 0.6 10^3/uL (1.5-3.5); LYMPHOCYTES % (AUTO) 8.6 %; MEAN CORPUSCULAR HEMOGLOBIN 30.4 pg (27.0-31.0); MEAN CORPUSCULAR HGB CONC 33.3 g/dL (32.0-36.0); MEAN CORPUSCULAR VOLUME 91.4 fL (80.0-94.0); MEAN PLATELET VOLUME 12.3 fL (7.4-11.4); MONOCYTES # (AUTO) 0.2 10^3/uL (0.0-1.0); MONOCYTES % (AUTO) 3.1 %; NEUTROPHILS # (AUTO) 5.6 10^3/uL (1.5-6.6); NEUTROPHILS % (AUTO) 87.2 %; PLT - PLATELET COUNT 213 10^3/uL (130-450); RED BLOOD COUNT 4.41 10^6/uL (4.70-6.10); WHITE BLOOD COUNT 6.4 x10^3/uL (4.8-10.8)
[2024-08-21 09:11] LABS: ABG BASE EXCESS -10.6 mmol/L (-2.0-3.0); ABG OXYGEN SATURATION 98 % (95-98); ABG PCO2 29 mmHg (34-45); ABG PH 7.33 (7.35-7.45); ABG PO2 97 mmHg (83-108); ABG TCO2 16.4 mmol/L (21.0-29.0)
[2024-08-21 09:12] LABS: ABG HCO3 15.5 mmol/L (22.0-26.0); ALLEN TEST POSITIVE
[2024-08-21 09:25] LABS: KETONES, SERUM (ACETEST) SMALL (NEGATIVE)
[2024-08-21 09:46] LABS: ALBUMIN 4.2 g/dL (3.2-5.5); ALBUMIN/GLOBULIN RATIO 1.8 (1.0-2.2); ALKALINE PHOSPHATASE 76 IU/L (42-121); ALT ALANINE AMINOTRANSFERASE 24 IU/L (10-60); AST ASPARTATE AMINOTRANSFERASE 19 IU/L (10-42); BILIRUBIN,TOTAL 1.6 mg/dL (0.2-1.0); BUN - BLOOD UREA NITROGEN 38 mg/dL (6-20); CARBON DIOXIDE - CO2 17 mmol/L (21-32); CHLORIDE 96 mmol/L (101-111); CREATININE 1.3 mg/dL (0.6-1.3); GFR - MDRD 56 (>89); GLUCOSE 615 mg/dL (74-104); POTASSIUM 4.9 mmol/L (3.5-4.5); SODIUM 130 mmol/L (135-145); TOTAL PROTEIN 6.5 g/dL (6.4-8.9)
--- OUTSIDE RECORDS SUMMARY | 2024-08-21 09:59 | EXTERNAL MEDICAL SUMMARY RPT | Continuity of Care Document ---
Author Organization [place] Address [address] [place] [address] [address] [place] [address] Phone Care Team Providers Care [place] Name Role Phone Dalton Finn Unavailable Unavailable Problems date description facility 2024-06-03 05:59 Type 1 diabetes robert itus with ketoacidosis [facility] 2024-06-03 05:59 Type 1 diabetes robert itus with hypoglycemia without coma [facility] 2024-06-03 05:59 Type 1 diabetes mellitus with h yperglycemia [facility] 2024-06-03 05:59 [facility] 05:59 Acute pharyngitis, unspecified [facility] 2024-06-03 05:59 Influenza due to oth er identified influenza virus with other respiratory manifestations [facility] 2024-06-03 05:59 [facility] 05:59 [facility] 2024-06-03 05:59 Low back pain, unspecified [facility] 2024-06-03 05:59 Other specified cough [facility] 2024-06-03 05:59 Cough, unspecified [facility] 2024-06-03 05:59 Dyspnea, unspecified [facility] 2024-06-03 05:59 Other chest pain [facility] 2024-06-03 05:59 Nasal congestion [facility] 2024-06-03 05:59 Generalized abdominal pain [facility] 2024-06-03 05:59 Nausea [facility] 2024-06-03 05:59 Vomiting, unspecified [facility] 2024-06-03 05:59 Nausea with vomiting, unspecifi ed [facility] 2024-06-03 05:59 Dizziness and giddiness [facility] 2024-06-03 05:59 Fever, unspecified [facility] 2024-06-03 05:59 Other malaise [facility] 2024-06-03 05:59 [facility]24-[facility]-03 05:59 Hyperglycemia, unspecified [facility] 2024-06-03 05:59 Laceration without f oreign body of right index finger without damage to nail, [facility] 2024-06-03 05:59 Unspecified injury o f left wrist, hand and finger(s), [facility] 2024-06-03 05:59 Toxic effect of veno m of bees, accidental (unintentional), [facility] 2024-06-03 06:02 Type 1 diabetes robert itus with ketoacidosis without coma [facility] 2024-06-03 06:02 Type 1 diabetes robert itus with hypoglycemia without coma [facility] 2024-06-03 06:02 Type 1 diabetes mellitus with h yperglycemia [facility] 2024-06-03 06:02 Sick sinus syndrome [facility] 2024-06-03 06:02 Acute pharyngitis, unspecified [facility] 2024-06-03 06:02 Influenza due to oth er identified influenza virus with other respiratory manifestations [facility] 2024-06-03 06:[address] [facility] 06:02 Cervicalgia [facility] 2024-06-03 06:02 Low back pain, unspecified [facility] 2024-06-03 06:[address] [facility] 2024-06-03 06:02 Cough, unspecified [facility] 2024-06-03 06:02 Dyspnea, unspecified [facility] 2024-06-03 06:02 Other chest pain [facility] 2024-06-03 06:02 Nasal congestion [facility] 2024-06-03 06:02 Generalized abdominal pain [facility] 2024-06-03 06:02 Nausea [facility] 2024-06-03 06:02 Vomiting, unspecified [facility] 2024-06-03 06:02 Nausea with vomiting, unspecifi ed [facility] 2024-06-03 06:02 Dizziness and giddiness [facility] 2024-06-03 06:02 Fever, unspecified [facility] 2024-06-03 06:02 Other malaise [facility] 2024-06-03 06:02 Syncope and collapse [facility] 2024-06-03 06:02 Hyperglycemia, unspecified [facility] 2024-06-03 06:02 Laceration without f oreign body of right index finger without damage to nail, initial [facility] 2024-06-03 06:02 Unspecified injury o f left wrist, hand and finger(s), initial encounter [facility] 2024-06-03 06:02 Toxic effect of veno m of bees, accidental (unintentional), initial [facility] 2024-06-03 07:43 Type 1 diabetes robert itus with ketoacidosis without coma [facility] 2024-06-03 07:43 Type 1 diabetes mellitus with h yperglycemia [facility] 2024-06-03 07:43 Sick sinus syndrome [facility] 2024-06-03 08:19 Type 1 diabetes robert itus with ketoacidosis without coma [facility] 2024-06-03 08:19 Type 1 diabetes mellitus with h yperglycemia [facility] 2024-06-03 08:19 Sick sinus syndrome [facility] 2024-06-03 10:33 Syncope and collapse [facility] 2024-06-03 16:02 Type 1 diabetes robert itus with ketoacidosis without coma [facility] 2024-06-03 16:02 Type 1 diabetes mellitus with h yperglycemia [facility] 2024-06-03 16:02 Sick sinus syndrome [facility] 2024-06-03 18:36 Type 1 diabetes robert itus with ketoacidosis without coma [facility] 2024-06-03 18:36 Type 1 diabetes mellitus with h yperglycemia [facility] 2024-06-03 18:36 Sick sinus syndrome [facility] 2024-06-09 10:35 Unspecified convulsions [facility] 2024-06-09 12:09 Type 1 diabetes mellitus with h yperglycemia [facility] 2024-06-10 11:36 Type 1 diabetes robert itus with ketoacidosis without coma [facility] 2024-06-16 00:02 Type 1 diabetes mellitus with h yperglycemia [facility] 2024-06-16 00:02 Sick sinus syndrome [facility] 2024-07-01 00:00 Type 1 diabetes mellitus with h yperglycemia [facility] 2024-07-01 00:00 Syncope [facility] 2024-07-08 12:30 Type 1 diabetes robert itus with ketoacidosis without coma [facility] 2024-07-08 12:30 Type 1 diabetes robert itus with hypoglycemia without coma [facility] 2024-07-08 12:30 Type 1 diabetes mellitus with h yperglycemia [facility] 2024-07-08 12:30 Sick sinus syndrome [facility] 2024-07-08 12:30 Acute pharyngitis, unspecified [facility] 2024-07-08 12:30 Influenza due to oth er identified influenza virus with other respiratory manifestations [facility] 2024-07-08 12:30 Pain in left knee [facility] 2024-07-08 12:30 Cervicalgia [facility] 2024-07-08 12:30 Low back pain, unspecified [facility] 2024-07-08 12:30 Other specified cough [facility] 2024-07-08 12:30 Cough, unspecified [facility] 2024-07-08 12:30 Dyspnea, unspecified [facility] 2024-07-08 12:30 Other chest pain [facility] 2024-07-08 12:30 Nasal congestion [facility] 2024-07-08 12:30 Generalized abdominal pain [facility] 2024-07-08 12:30 Nausea [facility] 2024-07-08 12:30 Vomiting, unspecified [facility] 2024-07-08 12:30 Nausea with vomiting, unspecifi ed [facility] 2024-07-08 12:30 Dizziness and giddiness [facility] 2024-07-08 12:30 Fever, unspecified [facility] 2024-07-08 12:30 Other malaise [facility] 2024-07-08 12:30 Syncope and collapse [facility] 2024-07-08 12:30 Hyperglycemia, unspecified [facility] 2024-07-08 12:30 Laceration without f oreign body of right index finger without damage to nail, initial encounter [facility] 2024-07-08 12:30 Unspecified injury o f left wrist, hand and finger(s), initial encounter [facility] 2024-07-08 12:30 Toxic effect of veno m of bees, accidental (unintentional), [facility] 2024-08-19 11:12 Type 1 diabetes robert itus with ketoacidosis without coma [facility] 2024-08-19 11:12 Type 1 diabetes robert itus with hypoglycemia without coma [facility] 2024-08-19 11:12 Type 1 diabetes mellitus with h yperglycemia [facility] 2024-08-19 11:12 Sick sinus syndrome [facility] 2024-08-19 11:12 Acute pharyngitis, unspecified [facility] 2024-08-19 11:12 Influenza due to oth er identified influenza virus with other respiratory manifestations [facility] 2024-08-19 11:[address] [facility] 11:12 Cervicalgia [facility] 2024-08-19 11:12 Low back pain, unspecified [facility] 2024-08-19 11:[address] [facility] 2024-08-19 11:12 Cough, unspecified [facility] 2024-08-19 11:12 Dyspnea, unspecified [facility] 2024-08-19 11:12 Other chest pain [facility] 2024-08-19 11:12 Nasal congestion [facility] 2024-08-19 11:12 Generalized abdominal pain [facility] 2024-08-19 11:12 Nausea [facility] 2024-08-19 11:12 Vomiting, unspecified [facility] 2024-08-19 11:12 Nausea with vomiting, unspecifi ed [facility] 2024-08-19 11:12 Dizziness and giddiness [facility] 2024-08-19 11:12 Fever, unspecified [facility] 2024-08-19 11:12 Other malaise [facility] 2024-08-19 11:12 [facility]yncope [facility] collapse [facility] 2024-08-19 11:12 Hyperglycemia, unspecified [facility] 2024-08-19 11:12 Laceration without f oreign body of right index finger without damage to nail, initial encounter [facility] 2024-08-19 11:12 Unspecified injury o f left wrist, hand and finger(s), initial encounter [facility] 2024-08-19 11:12 Toxic effect of veno m of bees, accidental (unintentional), initial encounter [facility] 2024-08-19 11:49 Local infection of t he skin and subcutaneous tissue, unspecified [facility] Procedures date description facility 2024-07-01 00:00 Computed tomography of head or brain without contrast [facility] 2024-07-01 00:00 X-ray of chest, single view [facility] 2024-07-01 00:00 Computed tomography angiography of chest with contrast for pulmonary embolus [facility] 2024-07-01 00:00 Computed tomography of cervical spine without contrast [facility] Results/Labs test date facility value unit notes Result panel 1 GLUCOSE, WHOLE BLOOD 2024-06-01 11:21 [email or web address] > 600 (missing) (missing) Result panel 2 GLUCOSE, URINE (UA) 2024-06-01 11:30 [facility] mg/dl (missing) VBG BASE EXCESS 2024-06-01 11:30 [employer] [facility] -2.4 mmol/l (missing) NUCLEATED RED BLOOD CELLS AUTO 2024-06-01 11:30 [email or web address] 0.0 /100wbc (missing) EOSINOPHILS # (AUTO) 2024-06-01 11:30 [email or web address] 0.0 10 3/ul (missing) NRBC ABSOLUTE COUNT (AUTO) 2024-06-01 11:30 [facility] 0.00 x10 3/ul (missing) BASOPHILS # (AUTO) 2024-06-01 11:30 [facility] 0.1 10 3/ul (missing) UROBILINOGEN,URINE 2024-06-01 11:30 [facility] 0.2 (NORMAL) e.u./dl (missing) MONOCYTES # (AUTO) 2024-06-01 11:30 [facility] 0.4 10 3/ul (missing) LYMPHOCYTES # (AUTO) 2024-06-01 11:30 [facility] 0.8 10 3/ul (missing) SPECIFIC GRAVITY,URINE 2024-06-01 11:30 [facility] 1.010 (missing) (missing) BILIRUBIN,TOTAL 2024-06-01 11:30 [facility] 1.4 mg/dl As of September 2022 testing method has changed, this may include reference ranges. CREATININE 2024-06-01 11:30 [facility] 1.5 mg/dl As of September 2022 testing method has changed, this may include reference ranges. ALBUMIN/GLOBULIN RATIO 2024-06-01 11:30 [facility] 1.6 (missing) (missing) CALCIUM 2024-06-01 11:30 [facility] 10.2 mg/dl As of September 2022 testing method has changed, this may include reference ranges. RED CELL DISTRIBUTION WIDTH 2024-06-01 11:30 [facility] 12.3 % (missing) MEAN PLATELET VOLUME 2024-06-01 11:30 [facility] 12.6 fl (missing) SODIUM 2024-06-01 11:30 [facility] 133 mmol/l As of September 2022 testing method has changed, this may include reference ranges. AST ASPARTATE AMINOTRANSFERASE 2024-06-01 11:30 [facility] 15 iu/l As of September 2022 testing method has changed, this may include reference ranges. HGB - HEMOGLOBIN 2024-06-01 11:30 [facility] 15.4 g/dl (missing) ANION GAP 2024-06-01 11:30 [facility] 17.0 (missing) (missing) MAGNESIUM 2024-06-01 11:30 [facility] 2.3 mg/dl As of September 2022 testing method has changed, this may include reference ranges. GLOBULIN 2024-06-01 11:30 [facility] 2.8 g/dl (missing) ALT ALANINE AMINOTRANSFERASE 2024-06-01 11:30 [facility] 21 iu/l As of September 2022 testing method has changed, this may include reference ranges. PLT - PLATELET COUNT 2024-06-01 11:30 [facility] 214 10 3/ul (missing) CARBON DIOXIDE - CO2 2024-06-01 11:30 [facility] 23 mmol/l As of September 2022 testing method has changed, this may include reference ranges. VBG HCO3 2024-06-01 11:30 [facility] 23.9 mmol/l (missing) PROLACTIN 2024-06-01 11:30 [facility] 24.17 ng/ml Social History date description facility 2024-07-01 00:00 Never smoked tobacco ([facility] Vital Signs date measurement value units 2024-07-01 00:00 BMI 26.4 kg/m2 2024-07-01 00:00 BP_diastolic 69 mmHg 2024-07-01 00:00 BP_systolic 143 mmHg 2024-07-01 00:00 heart_rate 80 /min 2024-07-01 00:00 height_metric 182.88 cm 2024-07-01 00:00 height_standard 72 in 2024-07-01 00:00 o2_saturation 96 % 2024-07-01 00:00 respiration_rate 12 /min 2024-07-01 00:00 temperature_metric 36.61 C 2024-07-01 00:00 temperature_standard 97.9 F 2024-07-01 00:00 weight_metric 88.45 kg 2024-07-01 00:00 weight_standard 195 lb
[2024-08-21] MEDS: INSULIN REGULAR IN 0.9 % NS 100 UNIT/100 ML BAG IV STA (10:06)
[2024-08-21] MEDS ORDERED: SODIUM CHLORIDE FLUSH 0.9% 10 ML SYRINGE IVP PRN (11:15)
[2024-08-21] MEDS ORDERED: ONDANSETRON 4 MG/2 ML VIAL IVP PRN (11:15)
[2024-08-21] MEDS ORDERED: ONDANSETRON ODT 4 MG TABLET TL PRN (11:15)
[2024-08-21] MEDS: SODIUM CHLORIDE 0.9% 1,000 ML IV SCH (11:41)
[2024-08-21 12:19] LABS: CALCIUM 9.5 mg/dL (8.5-10.3); CREATININE 1.4 mg/dL (0.6-1.3); MAGNESIUM 2.5 mg/dL (1.7-2.3); PHOSPHORUS 3.7 mg/dL (2.5-5.0); POTASSIUM 4.2 mmol/L (3.5-4.5)
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
[2024-08-21] MEDS: NS W/20 MEQ KCL 1,000 ML IV SCH (12:38)
[2024-08-21] MEDS: SODIUM CHLORIDE 0.9% 500 ML IV ONE (12:39)
--- NOTE | 2024-08-21 13:20 | PHARMACY PROGRESS NOTE ---
Best Possible Medication History Admit Date and Time: 08/21/24 [id number] Home Medications Medication Instructions Recorded Confirmed Type atorvastatin 80 mg tablet (Lipitor) 80 mg PO QPM 05/3008/21/24 History tamsulosin 0.4 mg capsule 0.4 mg PO DAILY #90 caps 12/0808/21/24 Rx blood-glucose sensor (Dexcom G7 #10 ea 03/17/24 Rx Sensor device) blood-glucose,research study assistant,cont #1 ea 03/17/24 06/15/24 Rx (Dexcom G7 Driller'S Assistant) mirtazapine 45 mg tablet 45 mg PO HS #90 tabs 5 08/21/24 Rx insulin syringe-needle U-100 1 mL #100 ea 06/03/2404/10 Rx 29 gauge x 1/2" (Insulin Syringe) insulin lispro 100 unit/mL 83 - 100 unit (0.83 - 1 mL) subcut 06/12/24 08/21/24 Rx subcutaneous pen (Humalog KwikPen QDAY #50 mL (U-100) Insulin) donepezil 10 mg tablet 10 mg PO QPM 08/21/24 History losartan 25 mg tablet 25 mg PO QPM 08/21/24 History sulfamethoxazole 800 1 tab PO BID 08/21/24 History mg-trimethoprim 160 mg tablet (Bactrim DS) Processed by: Pharmacy Medications reviewed in ED?: No Medication History completed: Yes Patient Interview: Completed Secondary Source(s): Physician records, Pharmacy records and Insurance records [facility] Statement: As the person ultimately responsible for medication therapy, providers are able to order a medication from an existing home medication list in [facility] via the "Reconcile Routine" prior to Confirmation of that medication by support associate. Such practice is discouraged except when the physician, in their clinical judgment, deems that a medical need exists for a medication without regard to previous use.
--- NOTE | 2024-08-21 13:51 | XRAY Report ---
PROCEDURE: XR Abdomen 1 V INDICATIONS: abd pain TECHNIQUE: One view of the abdomen acquired. COMPARISON: 11/14/2013 FINDINGS: Surgical changes and devices: None. Bowel: Bowel gas pattern is normal. Soft tissues: No suspicious abdominal calcifications. Visualized solid organ contours appear normal in size. Bones: No suspicious bony lesions. IMPRESSION: No acute abdominal pathology. Reviewed by: Deandre Bazan MD on 08/21/2024 12:50 PM [facility] Approved by: Deandre Bazan MD on 08/21/2024 12:50 PM [facility] Station ID: [id number]
[2024-08-21 13:53] LABS: CALCIUM 9.2 mg/dL (8.5-10.3); CREATININE 1.3 mg/dL (0.6-1.3); POTASSIUM 4.1 mmol/L (3.5-4.5)
[2024-08-21] MEDS: DEXTROSE-SOD CHLOR W/20 MEQ K 1,000 ML IV SCH (15:14)
[2024-08-21 15:36] LABS: BILIRUBIN,URINE NEGATIVE (NEGATIVE); GLUCOSE, URINE (UA) >=1000 mg/dL (NEGATIVE); KETONES,URINE (UA) 40 mg/dL (NEGATIVE); LEUKOCYTE ESTERASE, URINE NEGATIVE (NEGATIVE); NITRITE,URINE NEGATIVE (NEGATIVE); OCCULT BLOOD,URINE NEGATIVE (NEGATIVE); PH,URINE 5.5 PH (5.0-7.5); PROTEIN,URINE NEGATIVE (NEGATIVE); UROBILINOGEN,URINE 0.2 (NORMAL) E.U./dL (NORMAL)
[2024-08-21 15:48] LABS: CALCIUM 8.8 mg/dL (8.5-10.3); CREATININE 1.2 mg/dL (0.6-1.3); POTASSIUM 4.1 mmol/L (3.5-4.5)
[2024-08-21 16:00] LABS: BACTERIA,URINE None Seen /HPF (None Seen); CLARITY,URINE CLEAR (CLEAR); RBC,URINE None Seen /HPF (0-5); SQUAMOUS EPITHELIAL CELL,UR NONE SEEN (<= Few); WBC,URINE 0-3 /HPF (0-3)
[2024-08-21] MEDS: INSULIN GLARGINE-YFGN 300 UNIT/3 ML PEN SUBQ STA (16:29)
[2024-08-21] MEDS: INSULIN LISPRO 300 UNIT/3 ML PEN SUBQ SCH (17:13)
[2024-08-21] MEDS: SODIUM CHLORIDE FLUSH 0.9% 10 ML SYRINGE IVP SCH (17:16)
[2024-08-21 20:22] LABS: CALCIUM 8.9 mg/dL (8.5-10.3); CREATININE 1.2 mg/dL (0.6-1.3); POTASSIUM 4.3 mmol/L (3.5-4.5)
[2024-08-21] MEDS: SULFAMETH/TRIMETH DS 800/160 MG TABLET PO SCH (21:31)
[2024-08-21] MEDS: ATORVASTATIN 40 MG TABLET PO SCH (21:32)
[2024-08-21] MEDS: MIRTAZAPINE 15 MG TABLET PO SCH (21:32)
[2024-08-21] MEDS: DONEPEZIL 5 MG TABLET PO SCH (21:32)
[2024-08-21] MEDS: TAMSULOSIN 0.4 MG CAPSULE PO SCH (21:39)
[2024-08-22 04:35] LABS: HCT - HEMATOCRIT 35.1 % (42.0-52.0); HGB - HEMOGLOBIN 12.1 g/dL (14.0-18.0); MEAN CORPUSCULAR HEMOGLOBIN 31.2 pg (27.0-31.0); MEAN CORPUSCULAR HGB CONC 34.5 g/dL (32.0-36.0); MEAN CORPUSCULAR VOLUME 90.5 fL (80.0-94.0); MEAN PLATELET VOLUME 11.8 fL (7.4-11.4); RED BLOOD COUNT 3.88 10^6/uL (4.70-6.10); RED CELL DISTRIBUTION WIDTH 12.5 % (12.0-15.0); WHITE BLOOD COUNT 7.5 x10^3/uL (4.8-10.8)
[2024-08-22 04:37] LABS: CALCIUM, IONIZED 1.18 mmol/L (1.09-1.30); VBG PH 7.418 (7.31-7.41)
[2024-08-22 04:50] LABS: CALCIUM 8.3 mg/dL (8.5-10.3); MAGNESIUM 2.1 mg/dL (1.7-2.3); POTASSIUM 4.1 mmol/L (3.5-4.5)
[2024-08-22] MEDS ORDERED: ACETAMINOPHEN 325 MG TABLET PO PRN (05:28)
[2024-08-22] MEDS: IBUPROFEN 400 MG TABLET PO SCH (06:33)
--- NOTE | 2024-08-22 08:03 | Discharge Summary ---
Discharge Summary Admit Date: 08/21/24 Discharge Date: 08/22/24 Discharging Provider: Dr. Albertina East Primary Care Provider: Jenna Chong Code Status: Attempt Resuscitation Discharge Facility Name: Home DIAGNOSES Admission Diagnoses: DKA, type I Diabetes Laceration without foreign body right middle finger without damage to nail History of CVA with residual deficit Discharge Diagnoses with Status of Each Condition: DKA, type Iresolved. Patient vies to follow closely with medical educator, as well as his primary care provider. Insulin for his insulin pump was refilled. He was educated on a diabetic diet. Diabetes mellitus type 1see above. Laceration without foreign body right middle fingercomplete Bactrim course at home. History of CVA with residual deficitspatient has mild right facial droop. No other weaknesses noted. Continue aspirin and statin on discharge. HPI History of Present Illness: Patient is a 58-year-old male with a history of type 1 diabetes mellitus, tachy- bradycardia syndrome history of CVA with mild right-sided weakness who presented after intractable nausea and vomiting overnight. Per his , he was acting strange this morning. Of note, he was here 6/5 for a splinter in his finger from a blackberry nava with some swelling and tenderness. He was started on Bactrim at that time, and discharged home. In the ED, patient was vitally stableblood pressure was slightly low at 102/56, saturating 96% on room air, respiratory rate in the low 20s, heart rate of 88, and afebrile. Lab work was reviewedhe has no white count, hemoglobin is slightly low at 13.4. His ABG showed a pH of 7.33, with a CO2 of 29. His sodium was low at 134, corrected for his glucose, was within normal limits. He had a high anion gap metabolic acidosis with a gap initially as high as 17. His creatinine was also elevated at 1.3, with a baseline around there. His glucose was elevated at 615. His magnesium was within normal limits as were his ALT, AST. No imaging was done. He was admitted to the ICU for diabetic ketoacidosis. He was started on IV fluids, as well as an insulin drip. CONSULTS | PROCEDURES Consultations: - Procedures: Abdominal x-juan HOSPITAL COURSE Hospital Course: Patient is a 58-year-old male with a history of type 1 diabetes mellitus who presented after intractable nausea and vomiting. He states he may be triggered by eating at a Spanish restaurant. He was found to be in DKA. He was admitted to the ICU. Completed DKA treatment. He complained of some abdominal pain, and abdominal x-ray was done. It was negative for any acute abnormalities. This resolved when the DKA resolved. He was advised extensively to follow-up with the primary care provider, as well as the medical educator about close management of his diabetes. His insulin was refilled. He was deemed suitable for discharge home. ALLERGIES Allergies Allergy/AdvReac Type Severity Reaction Status Date / Time insulin aspart protamine Allergy Intermediate Rash Verified 08/21/24 09:03 human codeine AdvReac Severe Loss of Verified 08/21/24 09:03 consciousness doxycycline AdvReac Intermediate Dizziness Verified 08/21/24 09:03 omeprazole AdvReac Intermediate Nausea Verified 08/21/24 09:03 MEDICATIONS Ambulatory Orders Medication Instructions Recorded Confirmed atorvastatin 80 mg tablet (Lipitor) 80 mg PO QPM 05/3008/21/24 tamsulosin 0.4 mg capsule 0.4 mg PO DAILY #90 caps 12/0808/21/24 blood-glucose sensor (Dexcom G7 #10 ea 03/17/24 Sensor device) blood-glucose,accounting analyst,cont #1 ea 03/17/24 06/15/24 (Dexcom G7 After School Tutor) mirtazapine 45 mg tablet 45 mg PO HS #90 tabs 5 08/21/24 insulin syringe-needle U-100 1 mL #100 ea 06/03/2404/10 29 gauge x 1/2" (Insulin Syringe) donepezil 10 mg tablet 10 mg PO QPM 08/21/24 losartan 25 mg tablet 25 mg PO QPM 08/21/24 sulfamethoxazole 800 1 tab PO BID 08/21/24 mg-trimethoprim 160 mg tablet (Bactrim DS) insulin lispro 100 unit/mL 83 - 100 unit (0.83 - 1 mL) subcut 08/22/24 08/21/24 subcutaneous pen (Humalog KwikPen QDAY #50 mL (U-100) Insulin) PHYSICAL EXAM AT DISCHARGE Vital Signs: Vital Signs x48h Temp Pulse Resp BP Pulse Ox 08/22/24 11:00 65 24 135/69 H 96 08/22/24 10:00 56 L 19 156/75 H 97 08/22/24 10:00 62 18 156/75 H 97 08/22/24 09:00 69 16 136/83 H 95 08/22/24 08:00 97.9 F 68 16 111/92 H 96 08/22/24 07:00 62 14 142/82 H 94 General Appearance: positive No acute distress and Alert; negative Anxious Eyes Bilateral: positive Normal inspection, PERRL and EOMI ENT: positive ENT inspection nml, Pharynx nml, No signs of dehydration and Other (mild R facial droop) Neck: positive Nml inspection, Thyroid nml and No JVD Respiratory: positive Chest non-tender, No respiratory distress and Breath sounds nml; negative Wheezes, Rales or Rhonchi Cardiovascular: positive Regular rate & rhythm, No murmur and No gallop Peripheral Pulses: positive 2+ Abdomen: positive Non-tender, No organomegaly, Nml bowel sounds and No distention; negative Guarding or Splenomegaly Back: positive Nml inspection; negative CVA tenderness (R) or CVA tenderness (L) Skin: positive Color nml, No rash, Warm and Dry Extremities: positive Non-tender, Full ROM and Nml appearance Neurologic/Psychiatric: positive Oriented x3, Motor nml and Mood/affect nml LABS 08/22/24 04:27 08/22/24 04:27 DIAGNOSTIC IMAGING Diagnostic Imaging Results: Final report reviewed FOLLOW UP Follow Up: Follow up with PCP. Follow up with medical educator. TIME SPENT Time Spent in Discharge (Minutes): 35 Discharge Plan Discharge Patient Disposition: 01 Home, Self Care Prescriptions: Continued tamsulosin 0.4 mg capsule 0.4 mg PO DAILY Qty: 90 3RF atorvastatin [Lipitor] 80 MG tablet 80 mg PO QPM Patient Comments: TAKE 1 TABLET BY MOUTH ONCE DAILY IN THE EVENING FOR CHOLESTEROL (DME) insulin syringe-needle U-100 [Insulin Syringe] 1 mL 29 gauge x 1/2" syringe See Rx Instructions .Route Qty: 100 0RF Rx Instructions: As directed donepezil 10 mg tablet 10 mg PO QPM Patient Comments: TAKE ONE TABLET 10MG BY MOUTH EVERY EVENING AT BEDTIME FOR DEMENTIA sulfamethoxazole-trimethoprim [Bactrim DS] 800-160 mg tablet 1 tab PO BID Rx Instructions: 5 DAY COURSE STARTED 08/20/24 losartan 25 mg tablet 25 mg PO QPM insulin lispro [Humalog KwikPen Insulin] 100 unit/mL insulin pen 83 - 100 unit subcut QDAY Qty: 50 3RF Rx Instructions: via insulin pump mirtazapine 45 mg tablet 45 mg PO HS Qty: 90 3RF (DME) Dexcom G7 After School Tutor Misc See Rx Instructions .Route Qty: 1 0RF Rx Instructions: As directed (DME) Dexcom G7 Sensor Device See Rx Instructions .Route Qty: 10 3RF Rx Instructions: As directed, changed q 10 days Diet: Diabetic Interventions: Belongings Inventory Last Done: 08/22/24 09:51 Discharge Last Done: 08/22/24 12:01 Discharge Checklist - Nursing Last Done: 08/22/24 12:01 Health Concerns: You came in because you were vomiting, nauseous, and not feeling well. You were found to be in diabetic ketoacidosis, a complication of your type 1 diabetes. We watched you closely in the ICU overnight. Please continue using your insulin pump. Please follow-up with your primary care provider and your medical educator, Bridgett, in the next 1 to 2 weeks. I have sent your insulin refills to [facility]. Continue to eat a carb controlled diet, and take your medications as prescribed. We are glad you are feeling better, thanks for letting us take care of you. Print Language: Grenadian Patient Instructions: Diabetes Carbs Fats Protein, Diabetes and Illness Stand Alone Forms: PCP List
[2024-08-22 08:15] VITALS: TEMP 97.9
[2024-08-22] MEDS ORDERED: TAMSULOSIN 0.4 MG CAPSULE PO SCH (09:00)
[2024-08-22] MEDS: HEPARIN 5,000 UNIT/ML VIAL SUBQ SCH (10:31)
[2024-08-22 11:06] VITALS: BP 135/69; O2SAT 96
== END 2024-08-22 12:55 | disposition home or self-care (01) ==
LOC: ED 08:51 → ICU 08:51
PROVIDERS: ADMIT Internal Medicine; ATTEND Internal Medicine
DX: E10.10 Type 1 diabetes mellitus with ketoacidosis without coma; Z87.891 Personal history of nicotine dependence; I69.392 Facial weakness following cerebral infarction; D64.9 Anemia, unspecified; S61.212D Laceration without foreign body of right middle finger without damage to nail, subsequent encounter; Z96.41 Presence of insulin pump (external) (internal); I49.5 Sick sinus syndrome